=== PATIENT | female | born 1955 | race Caucasian/White ===

== ENCOUNTER → 2016-06-12 | Outpatient (CLI) | payer BC ==
[~2016-06-12] MED LIST: ATV/1 PO; CALC600T68 PO; CHOL100010 PO; CPR500 PO; CYAN500T13 PO; DEXL60CA4 PO; ESTR0.056 PV; GLC/500 PO; METF500T PO; MGNO400 PO; MULT-506 PO; OMEG10007 PO; QSTP PO; ROSU20TA PO; SERT50TA PO; SYN137 PO; [UNRECOGNIZED DRUG - CODE] OPB
--- NOTE | 2016-06-12 12:45 | DIAGNOSTIC IMAGING REPORT ---
KUB CLINICAL HISTORY: Nephrolithiasis. COMPARISON STUDY: CT of the abdomen and pelvis July 11, 2015. FINDINGS: Bowel gas pattern is normal. There are cholecystectomy clips. Pelvic calcifications are unchanged from earlier studies and were shown to represent phleboliths on prior CT. No urinary calculi are identified. IMPRESSION: No urinary calculi identified. Electronically signed by: Keven Bettencourt M.D. 06/12/2016 12:43 PM Dictated Date/Time: 06/12/2016 12:40 PM
== END | disposition home or self-care (01) ==
LOC: C.RAD 12:17
PROVIDERS: ATTEND Urology
DX: N20.0 Calculus of kidney (principal)

== ENCOUNTER → 2016-08-17 | Outpatient (CLI) | payer BC | END | disposition home or self-care (01) | LOC: C.LABSPEC 11:03 | PROVIDERS: ATTEND Obstetrics & Gynecology | DX: N76.2 Acute vulvitis (principal) ==

== ENCOUNTER → 2016-08-24 | Outpatient (CLI) | payer BC ==
--- NOTE | 2016-08-26 08:21 | MAMMOGRAPHY REPORT ---
BILATERAL DIGITAL SCREENING MAMMOGRAM TOMOSYNTHESIS WITH CAD: 08/24/2016 CLINICAL HISTORY: Routine screening. Patient has no complaints. TECHNIQUE: Breast tomosynthesis in addition to standard 2D mammography was performed. Current study was also evaluated with a Computer Aided Detection (CAD) system. COMPARISON: Comparison is made to exams dated: 08/23/2015 mammogram, 07/09/2014 mammogram, 07/06/2013 [facility], 03/09/2012 mammogram, 03/03/2011 mammogram, and 01/01/2010 ammogram - [facility]. BREAST COMPOSITION: There are scattered areas of fibroglandular density in both breasts. FINDINGS: There are benign rim calcifications in the breasts. No suspicious mass, architectural dist ortion or cluster of microcalcifications is seen. IMPRESSION: ACR BI-RADS CATEGORY 1: NEGATIVE There is no mammographic evidence of malignancy. A 1 year screening mammogram is recommended. The pa tient will receive written notification of the results. Approximately 10% of breast cancers are not detected with mammography. A negative mammographic report should not delay biopsy if a clinically suggestive mass is present. Nya Storey M.D. ay/:08/25/2016 17:24:03 Mechanic Insulator: Lyndsay CARRIZALES(Kaleb)(M), [facility] letter sent: Normal 1/2 BI-RADS Code: ACR BI-RADS Category 1: Negative
== END | disposition home or self-care (01) ==
LOC: C.MAMM 11:48
PROVIDERS: ATTEND Obstetrics & Gynecology
DX: Z12.31 Encounter for screening mammogram for malignant neoplasm of breast (principal)

== ENCOUNTER → 2017-03-05 | Outpatient (CLI) | payer BC ==
[~2017-03-05] MED LIST changes: +GADAVIST IV PRN
--- NOTE | 2017-03-05 19:51 | DIAGNOSTIC IMAGING REPORT ---
MRI THE PELVIS WITHOUT A WITH GADOLINIUM CLINICAL HISTORY: Rectal pain and diarrhea. COMPARISON STUDY: CT scan dated 07/11/2015 FINDINGS: Imaging was performed in the sagittal, axial, and coronal planes, before and after the administration of 7 cc of intravenous Gadavist. There are no suspicious areas of marrow replacement. The uterus appears surgically absent. No abnormal adnexal masses are visualized. There is extensive sigmoid diverticulosis. There are no acute peridiverticular inflammatory changes. A pelvic pessary ring is visualized. There are no fluid collections to indicate an abscess. There is no evidence of pathologic adenopathy. There is mild lower rectal wall thickening. Correlation with digital and/or endoscopic examination is recommended IMPRESSION: 1. Mild lower rectal wall thickening. Correlation with digital and/or endoscopic examination is recommended 2. No evidence of abscess 3. Diverticulosis. No evidence of acute diverticulitis 4. No evidence of pathologic adenopathy Electronically signed by: Mikel Huerta M.D. 03/05/2017 7:50 PM Dictated Date/Time: 03/05/2017 7:41 PM
== END | disposition home or self-care (01) ==
LOC: C.MRI 18:00
PROVIDERS: ATTEND Internal Medicine Gastroenterology
DX: K62.89 Other specified diseases of anus and rectum (principal); K57.90 Diverticulosis of intestine, part unspecified, without perforation or abscess without bleeding

== ENCOUNTER → 2017-11-03 | Outpatient (CLI) | payer BC ==
[~2017-11-03] MED LIST changes: -GADAVIST IV PRN
[2017-11-03 12:42] LABS: HEMOGLOBIN A1C 7.2 % (4.5-5.6)
== END | disposition home or self-care (01) ==
LOC: C.LAB1850 10:45
PROVIDERS: ATTEND Internal Medicine Endocrinology, Diabetes & Metabolism
DX: E11.9 Type 2 diabetes mellitus without complications (principal)

== ENCOUNTER 2018-10-16 16:11 | Observation (INO) ==
[2018-10-16] MEDS ORDERED: ACETAMINOPHEN 500 MG TAB PO STA (16:26)
[2018-10-16] MEDS ORDERED: ASPIRIN CHEW 324 MG PO STA (16:26)
[2018-10-16] MEDS ORDERED: NITROGLYCERIN 2% OINTMENT 30GM TUBE EXT STA (16:26)
[2018-10-16] MEDS ORDERED: SODIUM CHLORIDE 0.9% 500 ML IV SCH (16:30)
--- NOTE | 2018-10-16 16:41 | XRay Report ---
XR chest 1V portable HISTORY: Atypical chest 08/22/2012. COMPARISON: None. FINDINGS: The lungs are clear. Cardiac silhouette is normal in size. No pleural effusions. No pneumot horax. IMPRESSION: No acute process. Electronically signed by: Ivan Veronica M.D. 10/16/2018 4:40 PM
[2018-10-16 16:59] LABS: Basophils # (auto) 0.03 K/uL (0-0.2); Basophils % (auto) 0.6 %; Eosinophils # (auto) 0.12 K/uL (0-0.5); Eosinophils % (auto) 2.3 %; Hematocrit (blood only) 29.9 % (37-47); Immature Granulocytes # (auto) 0.01 K/uL (0.00-0.02); Immature Granulocytes % (auto) 0.2 %; Lymphocytes # (auto) 1.79 K/uL (1.2-3.4); Lymphocytes % (auto) 34.2 %; Mean Corpuscular Hgb Conc 33.4 g/dL (32-36); Mean Corpuscular Volume 80.4 fL (80-100); Monocytes # (auto) 0.59 K/uL (0.11-0.59); Monocytes % (auto) 11.3 %; Neutrophils % (auto) 51.4 %; Platelet Count 162 K/uL (130-400); RDW Coefficient of Variation 14.8 % (11.5-14.5); RDW Standard Deviation 43.5 fL (36.4-46.3); Red Blood Count 3.72 M/uL (4.2-5.4); White Blood Count 5.24 K/uL (4.8-10.8)
[2018-10-16 17:10] LABS: INR 1.1 (0.9-1.1); Partial Thromboplastin Ratio 0.9; Partial Thromboplastin Time 25.4 Seconds (21.0-31.0); Prothrombin Time 11.2 Seconds (9.0-12.0)
[2018-10-16] MEDS ORDERED: MAGNESIUM OXIDE 400 MG TAB PO STA (17:17)
[2018-10-16] MEDS ORDERED: MAGNESIUM SULFATE / D5W 1 GM/100 ML BAG IV ONE (17:17)
[2018-10-16 17:20] LABS: Alanine Aminotransferase 58 U/L (12-78); Albumin Level 3.9 gm/dl (3.4-5.0); Aspartate Aminotransferase 70 U/L (15-37); BUN Creatinine Ratio 12.1 (10-20); Blood Urea Nitrogen 15 mg/dl (7-18); Calcium 10.5 mg/dl (8.5-10.1); Carbon Dioxide 25 mmol/L (21-32); Chloride 100 mmol/L (98-107); Est GFR (African American) 51.8; Est GFR (Non-African American) 44.7; Glucose 168 mg/dl (70-99); Potassium 3.2 mmol/L (3.5-5.1); Sodium 136 mmol/L (136-145)
[2018-10-16 17:24] LABS: Albumin Globulin Ratio 1.1 (0.9-2); Alkaline Phosphatase 162 U/L (45-117); Bilirubin,Total 0.6 mg/dl (0.2-1); Globulin 3.7 gm/dl (2.5-4.0); Total Protein 7.6 gm/dl (6.4-8.2); Troponin I < 0.015 ng/ml (0-0.045)
[2018-10-16] MEDS ORDERED: POTASSIUM CHLORIDE 20 MEQ TABCR PO STA (17:48)
--- NOTE | 2018-10-16 17:55 | Emergency Department Note ---
Entered by Enrique Donaldson acting as a scribe for Parveen Jarvis MD History of Present Illness General Chief complaint: Chest Pain Stated complaint: CHEST PAIN,LEFT ARM PAIN,DIZZY Time Seen by Provider: 10/16/18 16:17 Source: patient History of Present Illness Onset (ago): hour(s) 2 Location: chest Radiation: extremity (left arm) Pain Consistency: + other (worsening) Maximum Pain Intensity: 8 Current Pain Intensity: 7 Relieved By: + none Exacerbated By: + movement Associated symptoms: + denies other symptoms (dehydration), + diaphoresis, + shortness of breath and + other (dizziness); no cough and no nausea/vomiting The patient is a 63 year old F who presents to the Emergency Room with complaints of worsening chest pain that started 2 hours ago. She states that she was working out in her garden today. She notes that she then went to the store to buy groceries. She adds that she was loading canned foods into her car when she started to experience chest pain and shortness of breath. She notes that her chest pain radiates to her left arm. She rates her pain as 7 out of 10. She adds that her pain is worsened with exertion. She also states that she is currently experiencing dizziness and sweating. She adds that her dizziness started 1 week ago. She denies currently experiencing nausea and coughing. She notes that she drove home and sat in the air conditioning of her house but adds that her symptoms did not resolve. She states that she has a history of pericarditis, type 2 diabetes, high cholesterol, and HTN. She adds that she has a family history of heart attacks. She notes that she had a stress test performed by her PCP two years ago which was normal. She denies a history of smoking. She notes that she did not take anything for her pain today. She adds that she took her daily aspirin today. Home Medications Home Medications Medication Instructions Recorded Confirmed Type aspirin 81 mg PO QDD 08/03/18 10/16/18 History cholecalciferol (vitamin D3) 2,000 unit PO QAM 08/03/18 10/16/18 History [Vitamin D3] dulaglutide [Trulicity] 1.5 mg SUBCUT WK 08/03/18 10/16/18 History glimepiride 4 mg PO BIDM 08/03/18 10/16/18 History hydrochlorothiazide 25 mg PO QDD 08/03/18 10/16/18 History ketorolac [Acular LS] 1 drp OPB DAILY PRN 08/03/18 10/16/18 History levothyroxine 137 mcg PO QAM 08/03/18 10/16/18 History lisinopril 10 mg PO QAM 08/03/18 10/16/18 History metformin 1,000 mg PO .BID @ 0200 & 1400 08/03/18 10/16/18 History omeprazole 40 mg PO QAM 08/03/18 10/16/18 History paroxetine HCl 20 mg PO QAM 08/03/18 10/16/18 History rosuvastatin 20 mg PO QDD 08/03/18 10/16/18 History mv,Ca,min-folic acid-vit K1 1 tab PO QDD 10/16/18 10/16/18 History [One-A-Day Women's 50 Plus] Allergies Allergy/AdvReac Type Severity Reaction Status Date / Time bee venom protein (honey bee) Allergy Severe Anaphylaxis Verified 10/16/18 16:58 tetracycline Allergy Severe Vomiting Verified 10/16/18 16:58 Flu Virus Vaccine Allergy Severe ANAPHYLAXIS Uncoded 10/16/18 16:58 Past Med/Surg History Medical History Diabetes (Chronic) Moeller's esophagus with esophagitis Chronic anemia Depression Hypothyroidism Diverticulitis Diverticulosis Hyperlipidemia Hypertension Surgical History Hx of cholecystectomy (Acute) History of hysterectomy Family History Brother Coronary heart disease Social History Preferred Language: Austrian Communication Ability: Effective Beliefs That Will Affect Care: None marital status: Current Living Situation: Spouse and Family current occupational status: employed Feels Safe at Home: Yes Smoking Status: Former smoker Hx Alcohol Use: No Hx Substance Use: No Review of Systems See HPI for pertinent positives & negatives. and A total of 10 systems reviewed and were otherwise negative Physical Exam Vital Signs Vital Signs - 24 hr 10/16/18 16:14 10/16/18 17:00 10/16/18 17:01 Temperature 37.6 C H Temperature Source Oral Sepsis Recent Fever Within 48 Hours No Sepsis Action Taken by Nursing No Action Required Pulse Rate 97 H 90 Pulse Rate [Left Finger] Pulse Rate from SpO2 Sensor 89 Respiratory Rate 20 17 Respiratory Effort / Characteristics Non-Labored Respiratory Depth Normal Respiratory Pattern Blood Pressure 136/70 128/65 Blood Pressure [Left Arm] Blood Pressure Mean 92 86 Blood Pressure Mean [Left Arm] Pulse Oximetry 95 95 93 Oxygen Delivery Method Room Air Room Air 10/16/18 17:03 10/16/18 17:07 10/16/18 17:09 Temperature Temperature Source Sepsis Recent Fever Within 48 Hours Sepsis Action Taken by Nursing Pulse Rate 88 88 Pulse Rate [Left Finger] 86 Pulse Rate from SpO2 Sensor 88 89 Respiratory Rate 16 16 15 Respiratory Effort / Characteristics Non-Labored Respiratory Depth Normal Respiratory Pattern Regular Blood Pressure 129/58 L Blood Pressure [Left Arm] 129/58 L Blood Pressure Mean 81 Blood Pressure Mean [Left Arm] 81 Pulse Oximetry 93 95 97 Oxygen Delivery Method Room Air 10/16/18 17:10 10/16/18 17:20 10/16/18 17:30 Temperature Temperature Source Sepsis Recent Fever Within 48 Hours Sepsis Action Taken by Nursing Pulse Rate 87 85 84 Pulse Rate [Left Finger] Pulse Rate from SpO2 Sensor 87 85 84 Respiratory Rate 19 16 15 Respiratory Effort / Characteristics Respiratory Depth Respiratory Pattern Blood Pressure 124/66 120/64 117/62 Blood Pressure [Left Arm] Blood Pressure Mean 85 82 80 Blood Pressure Mean [Left Arm] Pulse Oximetry 93 92 91 Oxygen Delivery Method 10/16/18 17:40 10/16/18 17:50 10/16/18 18:00 Temperature Temperature Source Sepsis Recent Fever Within 48 Hours Sepsis Action Taken by Nursing Pulse Rate 85 83 80 Pulse Rate [Left Finger] Pulse Rate from SpO2 Sensor 85 82 80 Respiratory Rate 18 18 12 Respiratory Effort / Characteristics Respiratory Depth Respiratory Pattern Blood Pressure 123/67 122/56 L 107/62 Blood Pressure [Left Arm] Blood Pressure Mean 85 78 77 Blood Pressure Mean [Left Arm] Pulse Oximetry 91 93 Oxygen Delivery Method GENERAL: Patient is in no acute distress. HEENT: No acute trauma, normocephalic atraumatic, mucous membranes moist, no nasal congestion, no scleral icterus. NECK: No stridor, no adenopathy, no meningismus, trachea is midline. LUNGS: Clear to auscultation bilaterally, no wheeze, no rhonchi, breath sounds equal. HEART: Without murmurs gallops or rubs, regular rate and rhythm. CHEST: non-tender chest wall ABDOMEN: Soft, nontender, bowel sounds positive, no hernias, no peritonitis. EXTREMITIES: No cyanosis or edema, full range of motion of all the joints without pain or difficulty, no signs for acute trauma. NEUROLOGIC: Oriented x 3, no acute motor or sensory deficits, no focal weakness. SKIN: No rash, no jaundice, no diaphoresis. RECTAL: Brown stool, heme negative. Course 1617: The patient was evaluated in room C10. A complete history and physical exam was performed. 174: I re-checked the patient. She states that she is doing better. I performed a rectal exam on the patient. 175: I reviewed the patient's case with Dr. Stuart, [facility] Hospitalist. He will evaluate the patient for further management. Consultations Consultation #1: I reviewed the patient's case with Dr. Stuart, [facility] Hospitalist. He will evaluate the patient for further management. Time: 17:52 Administered Medications Al Hydrox/Mg Hydrox/Simethicone (Maalox) 15 ml PO Q4H PRN PRN Reason: Dyspepsia Stop: 11/15/18 19:02 Last Admin: 10/16/18 19:24 Dose: 15 ml Documented by: [id number] Heparin Sodium (Porcine) (Heparin Sodium (Porcine)) 5,000 units SQ Q12 PRIMITIVO Stop: 11/15/18 20:59 Last Admin: 10/16/18 20:02 Dose: 5,000 units Documented by: [id number] Cosigned by: [id number] Potassium Chloride/Sodium Chloride (Normal Saline W/20 Meq Kcl) 20 meq in 1,000 mls @ 100 mls/hr IV .Q10H PRIMITIVO Stop: 10/17/18 05:29 Last Admin: 10/16/18 19:57 Dose: 100 mls/hr Documented by: [id number] Insulin Aspart (Novolog Flexpen) 0 units SC ACHS PRIMITIVO Stop: 11/15/18 20:59 Last Admin: 10/16/18 19:59 Dose: Not Given Documented by: [id number] Cosigned by: [id number] Discontinued Medications Acetaminophen (Tylenol) 1,000 mg PO NOW STA Stop: 10/16/18 16:27 Last Admin: 10/16/18 17:06 Dose: 1,000 mg Documented by: [id number] Aspirin (Aspirin) 324 mg PO NOW STA Stop: 10/16/18 16:27 Last Admin: 10/16/18 17:06 Dose: 324 mg Documented by: [id number] Sodium Chloride (Nss) 500 mls @ 999 mls/hr IV .Q31M PRIMITIVO Stop: 10/16/18 17:00 Last Infusion: 10/16/18 17:33 Dose: 0 mls/hr Documented by: [id number] Admin: 10/16/18 17:02 Dose: 999 mls/hr Documented by: [id number] Magnesium Sulfate/Dextrose (Magnesium Sulfate / D5w) 1 gm in 100 mls @ 100 mls/hr IV ONE ONE Stop: 10/16/18 18:16 Last Infusion: 10/16/18 18:50 Dose: 0 mls/hr Documented by: [id number] Admin: 10/16/18 17:43 Dose: 100 mls/hr Documented by: [id number] Magnesium Oxide (Mag-Ox) 400 mg PO NOW STA Stop: 10/16/18 17:18 Last Admin: 10/16/18 17:43 Dose: 400 mg Documented by: [id number] Nitroglycerin (Nitro-Bid 2%) 1 inch EXT NOW STA Stop: 10/16/18 16:27 Last Admin: 10/16/18 17:06 Dose: 1 inch Documented by: [id number] Potassium Chloride (Klor-Con M20) 40 meq PO NOW STA Stop: 10/16/18 17:49 Last Admin: 10/16/18 17:50 Dose: 40 meq Documented by: [id number] Medical Decision Making Differential Diagnosis Differential diagnosis includes: musculoskeletal pain, angina, IL, acute coronary syndrome, pneumonia, aortic dissection, PE, pericarditis Medical Records Attestation: I reviewed the patient's medical records. Home Medications Current Medication List: was personally reviewed by me Laboratory Data Attestation: I reviewed the patient's lab results. Result diagrams: 10/16/18 16:45 10/16/18 16:45 Lab Results 10/16/18 10/16/18 10/16/18 Range/Units 16:45 16:45 16:45 WBC 5.24 (4.8-10.8) K/uL RBC 3.72 L (4.2-5.4) M/uL Hgb 10.0 L (12.0-16.0) g/dL Hct 29.9 L (37-47) % MCV 80.4 (80-100) fL MCH 26.9 (25-34) pg MCHC 33.4 (32-36) g/dL RDW Std Deviation 43.5 (36.4-46.3) fL RDW Coeff of Charlee 14.8 H (11.5-14.5) % Plt Count 162 (130-400) K/uL MPV 9.0 (7.4-10.4) fL Immature Gran % (Auto) 0.2 % Neut % (Auto) 51.4 % Lymph % (Auto) 34.2 % Harper % (Auto) 11.3 % Eos % (Auto) 2.3 % Baso % (Auto) 0.6 % Immature Gran # (Auto) 0.01 (0.00-0.02) K/uL Neut # (Auto) 2.70 (1.4-6.5) K/uL Lymph # (Auto) 1.79 (1.2-3.4) K/uL Harper # (Auto) 0.59 (0.11-0.59) K/uL Eos # (Auto) 0.12 (0-0.5) K/uL Baso # (Auto) 0.03 (0-0.2) K/uL PT 11.2 (9.0-12.0) Seconds INR 1.1 (0.9-1.1) APTT 25.4 (21.0-31.0) Seconds PTT Ratio 0.9 Sodium 136 (136-145) mmol/L Potassium 3.2 L (3.5-5.1) mmol/L Chloride 100 (98-107) mmol/L Carbon Dioxide 25 (21-32) mmol/L Anion Gap 12.0 H (3-11) BUN 15 (7-18) mg/dl Creatinine 1.26 H (0.6-1.2) mg/dl Est Cr Clr Drug Dosing Not Reportable Est GFR ( Amer) 51.8 Est GFR (Non-Af Amer) 44.7 BUN/Creatinine Ratio 12.1 (10-20) Glucose 168 H (70-99) mg/dl Calcium 10.5 H (8.5-10.1) mg/dl Magnesium (1.8-2.4) mg/dl Total Bilirubin 0.6 (0.2-1) mg/dl AST 70 H (15-37) U/L ALT 58 (12-78) U/L Alkaline Phosphatase 162 H (45-117) U/L Troponin I < 0.015 (0-0.045) ng/ml Total Protein 7.6 (6.4-8.2) gm/dl Albumin 3.9 (3.4-5.0) gm/dl Globulin 3.7 (2.5-4.0) gm/dl Albumin/Globulin Ratio 1.1 (0.9-2) Lipase 270 (73-393) U/L 10/16/18 Range/Units 16:45 WBC (4.8-10.8) K/uL RBC (4.2-5.4) M/uL Hgb (12.0-16.0) g/dL Hct (37-47) % MCV (80-100) fL MCH (25-34) pg MCHC (32-36) g/dL RDW Std Deviation (36.4-46.3) fL RDW Coeff of Charlee (11.5-14.5) % Plt Count (130-400) K/uL MPV (7.4-10.4) fL Immature Gran % (Auto) % Neut % (Auto) % Lymph % (Auto) % Harper % (Auto) % Eos % (Auto) % Baso % (Auto) % Immature Gran # (Auto) (0.00-0.02) K/uL Neut # (Auto) (1.4-6.5) K/uL Lymph # (Auto) (1.2-3.4) K/uL Harper # (Auto) (0.11-0.59) K/uL Eos # (Auto) (0-0.5) K/uL Baso # (Auto) (0-0.2) K/uL PT (9.0-12.0) Seconds INR (0.9-1.1) APTT (21.0-31.0) Seconds PTT Ratio Sodium (136-145) mmol/L Potassium (3.5-5.1) mmol/L Chloride (98-107) mmol/L Carbon Dioxide (21-32) mmol/L Anion Gap (3-11) BUN (7-18) mg/dl Creatinine (0.6-1.2) mg/dl Est Cr Clr Drug Dosing Est GFR ( Amer) Est GFR (Non-Af Amer) BUN/Creatinine Ratio (10-20) Glucose (70-99) mg/dl Calcium (8.5-10.1) mg/dl Magnesium 1.4 L (1.8-2.4) mg/dl Total Bilirubin (0.2-1) mg/dl AST (15-37) U/L ALT (12-78) U/L Alkaline Phosphatase (45-117) U/L Troponin I (0-0.045) ng/ml Total Protein (6.4-8.2) gm/dl Albumin (3.4-5.0) gm/dl Globulin (2.5-4.0) gm/dl Albumin/Globulin Ratio (0.9-2) Lipase (73-393) U/L Imaging Data Radiologist's Impression: Radiology results as stated below per my review and th e radiologist's interpretation: XR chest 1V portable HISTORY: Atypical chest 08/22/2012. COMPARISON: None. FINDINGS: The lungs are clear. Cardiac silhouette is normal in size. No pleural effusions. No pneumothorax. IMPRESSION: No acute process. Electronically signed by: Ivan Veronica M.D. 10/16/2018 4:40 PM ECG Data Attestation: I personally reviewed and interpreted this ECG as follows: Indication: chest pain Rate (beats per minute): 90 Rhythm: normal sinus Findings: + other (potential old inferior infarct) and + nonspecific-ST abn; no PVC Blood Pressure Blood Pressure Findings: Low blood pressure Blood Pressure Disposition: further management by hospitalist [facility] Narrative There is no leukocytosis. The patient is anemic, she has a history of the same. Rectal exam was done, the stool was brown and heme-negative. No coagulopathy. Potassium slightly low at 3.2. Magnesium low at 1.4. There were some very subtle liver enzyme elevations. There was no evidence for pancreatitis. EKG shows a sinus rhythm, no acute ischemia. Cardiac enzyme testing x1 is not consistent with acute cardiac injury. Chest film does not show mediastinal widening, there is no pneumonia or pneumothorax. The patient presents with chest pain which sounds potentially cardiac in nature. She does have multiple cardiac risk factors. The patient was given Nitropaste, oral aspirin, oral Tylenol. She received oral and IV magnesium, she was given oral potassium. Patient is feeling improved. I do think further cardiac work-up here in the hospital is warranted. I spoke to the patient and case management. The on-call hospitalist was consulted. Impression & Plan Chest pain, precordial, SOB (shortness of breath), Hypomagnesemia, Hypokalemia Discharge Plan Visit Data *Final* Discharge Date/Time: 10/16/18 18:42 Chief Complaint: Chest Pain Stated Complaint: CHEST PAIN,LEFT ARM PAIN,DIZZY ED Provider: Parveen Jarvis Discharge Problem: Chest pain, precordial, SOB (shortness of breath), Hypomagnesemia, Hypokalemia Patient Disposition: Admitted As Inpatient Discharge Instructions Interventions: ED Discharge Assessment Last Done: 10/16/18 18:42 The benjamin's documentation has been prepared under my direction and personally reviewed by me in its entirety. I confirm that the note above accurately reflects all work, treatment, procedures, and medical decision making performed by me.
--- NOTE | 2018-10-16 18:40 | History & Physical Report ---
Date of Service October 16, 2018 Assessment & Plan (1) Chest pain, precordial: Patient has a good history for chest pain including some perhaps left arm symptoms intermittently for the past few days but definitely exertional related symptoms with associated symptoms today, tobacco history strong family history history of poorly controlled dyslipidemia and diabetes. Patient will be brought in and had serial troponins depending on how her night goes may consider pursuing stress echocardiogram versus discussion of pursuing straight catheterization. Patient had nitroglycerin paste applied by the ER this will be stopped around midnight to see how her symptoms are off of it and also repair for a stress test without nitroglycerin on board. She will continue baby aspirin at this time (2) Hypertension: Patient takes lisinopril for hypertension and also renal protective effects for her diabetes this will be maintained (3) Hyperlipidemia: Patient is on Crestor for dyslipidemia she says her numbers are quite with a should be we will recheck a fasting lipid in the morning (4) Diabetes: Patient typically takes Trulicity which she took her dose on 10/15 glimepi ride and metformin and glimepiride and metformin will be held in lieu of a sliding scale without carb ratio as the patient will be n.p.o. 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 She states that her colonoscopies are currently up-to-date (6) Chronic anemia: Chronic anemia weight loss patient will have iron panel checked in the morning if they are low we will augment her iron but have her facilitate her follow-up with the GI medicine, initially heme testing of her stool in the ER was negative according to ER physician (7) Hypothyroidism: Maintain the Synthroid 137 clinically euthyroid TSH is pending in the morning (8) Depression: Packs will be continued for depression (9) DVT prophylaxis: Heparin will be used for DVT prevention History of Present Illness Primary Care Provider: Reza Cid MD [facility] [place] [place] [address] Emergency Department Note Draft Patient: SHOLA WYNN LDate of Service: 10/16/18 MR#: [id number] Phy: Acct ID:[id number] Phy: Reza Cid MD Date: 1955Fam Phy: Age: 63Location: ED Sex: F cc: ~ *NOTICE TO RECEIVING CONSTITUTION PARTY/AGENCY This information is strictly Confidential and protected under [place] law. [place] law prohibits you from making any further disclosure of this information unless further disclosure is expressly permitted by the written consent of the person to whom it pertains or is authorized by law. A general authorization for the release of medical or other information is not sufficient for this purpose. Hospital accepts no responsibility if the information is made available to any other person, INCLU DING THE PATIENT. The patient is a 63 year old F who presents to the Emergency Room with complaints of worsening chest pressure that started at 2 pm the day of admission. She states that she then went to the store to buy groceries and she was loading canned foods into her car when she started to experience chest pain and shortness of breath. She notes that her chest pain radiates to her left arm. She rates her pain as 7 out of 10, it was also associated with dizziness and sweating. The symptoms lessened with rest in her car but did not resolve. Her symptoms presisted and she presented to the ER for evaluation. She states that she has a history of pericarditis, type 2 diabetes, HLD, and HTN. She adds that she has a family history of heart disease in people youner than herself. She notes that she had a stress test performed by her PCP two years ago which was normal. She has a 20 pk/yr history of smoking but quit 20 years ago. She adds that she took her daily aspirin today. Initial ECG had low voltage, new lead III Q wave but no current of injury and troponin was negative Allergies Allergy/AdvReac Type Severity Reaction Status Date / Time bee venom protein (honey bee) Allergy Severe Anaphylaxis Verified 10/16/18 16:58 tetracycline Allergy Severe Vomiting Verified 10/16/18 16:58 Flu Virus Vaccine Allergy Severe ANAPHYLAXIS Uncoded 10/16/18 16:58 Home Medications Home Medications Medication Instructions Recorded Confirmed Type aspirin 81 mg PO QDD 08/03/18 10/16/18 History cholecalciferol (vitamin D3) 2,000 unit PO QAM 08/03/18 10/16/18 History [Vitamin D3] dulaglutide [Trulicity] 1.5 mg SUBCUT WK 08/03/18 10/16/18 History glimepiride 4 mg PO BIDM 08/03/18 10/16/18 History hydrochlorothiazide 25 mg PO QDD 08/03/18 10/16/18 History ketorolac [Acular LS] 1 drp OPB DAILY PRN 08/03/18 10/16/18 History levothyroxine 137 mcg PO QAM 08/03/18 10/16/18 History lisinopril 10 mg PO QAM 08/03/18 10/16/18 History metformin 1,000 mg PO .BID @ 0200 & 1400 08/03/18 10/16/18 History omeprazole 40 mg PO QAM 08/03/18 10/16/18 History paroxetine HCl 20 mg PO QAM 08/03/18 10/16/18 History rosuvastatin 20 mg PO QDD 08/03/18 10/16/18 History mv,Ca,min-folic acid-vit K1 1 tab PO QDD 10/16/18 10/16/18 History [One-A-Day Women's 50 Plus] Past Med/Surg History Medical History Diabetes (Chronic) Moeller's esophagus with esophagitis Chronic anemia Depression Hypothyroidism Diverticulitis Diverticulosis Hyperlipidemia Hypertension Surgical History Hx of cholecystectomy (Acute) History of hysterectomy Family History Brother Coronary heart disease Social History marital status: Current Living Situation: Spouse current occupational status: employed Feels Safe at Home: Yes Smoking Status: Never smoker Hx Alcohol Use: No Review of Systems Review of Systems: ROS: well nourished well developed. No double vision blurry vision No problems with speech or swallowing Chest pain rated 7 out of 10 sharp with a pressure sensation across her chest from left to right No Wheezing did have shortness of breath associate with chest pain No abdominal pain but did have nausea associated with her chest pain, additio brian decreased appetite and unintentional 10 pound weight loss over the last month or so No burning urine urine frequency or changes in color No focal joint pain or muscle pain No skin rashes or oral lesions No unusual bruising or bleeding No focused back pain or numbness or loss of strength No changes in memory or confusion Physical Exam Physical Exam: The patient appeared well nourished and normally developed. Vital signs as documented. Head exam is unremarkable. normocephalic, atraumatic Neck is without jugular venous distension, thyromegaly, or lymphademopathy Lungs are clear to auscultation and percussion. Cardiac exam reveals Rhythm is regular. First and second heart sounds normal. Does not appeared muffled or distant Abdominal exam reveals normal bowel sounds, no masses, no organomegaly Extremities are nonedematous and both pedal pulses are present Neurologic exam is A&Ox3, no focal deficits, strength is equal bilateral Psychologically seems neither anxious or depressed Skin is warm Dry without bruises or lesions Results & Data Vital Signs (Past 12 Hours) Vital Signs Temp Pulse Pulse Resp BP BP Pulse Ox 10/16/18 17:09 86 15 129/58 L 97 10/16/18 17:00 95 10/16/18 16:14 37.6 C H 97 H 20 136/70 95 Chest x-rays without active disease EKG shows sinus rhythm low voltage Q waves in lead III no acute current of injury PG Care Time/CCT Total # of Minutes Spent Total Time Spent with Patient: Total time spent is greater than 50% in coordination of care (as documented) at patient's floor/unit and/or counseling patient:
[2018-10-16] MEDS ORDERED: ALUMINUM/MAGNESIUM SUSP 30 ML UDC PO PRN (19:03)
[2018-10-16] MEDS ORDERED: ACETAMINOPHEN 325 MG TAB PO PRN (19:03)
[2018-10-16] MEDS ORDERED: GLUCOSE 40% GEL 15 GM TUBE PO PRN (19:03)
[2018-10-16] MEDS ORDERED: GLUCOSE 10 TABS/TUBE PO PRN (19:03)
[2018-10-16] MEDS ORDERED: DEXTROSE 50% 50 ML SYRINGE IV PRN (19:03)
[2018-10-16] MEDS ORDERED: CARBOHYDRATES FOR HYPOGLYCEMIA PO PRN (19:03)
[2018-10-16] MEDS ORDERED: NITROGLYCERIN SL 0.4 MG/TAB TAB SL PRN (19:03)
[2018-10-16] MEDS ORDERED: GLUCAGON FOR INJ 1 MG VIAL SQ PRN (19:03)
[2018-10-16] MEDS ORDERED: ONDANSETRON INJ 2 MG/ML 2 ML VIAL IV PRN (19:03)
[2018-10-16] MEDS ORDERED: NSS + 20MEQ KCL 20 MEQ/1,000 ML BAG IV SCH (19:30)
[2018-10-16] MEDS: INSULIN ASPART 100 UNITS/ML 3 ML PEN SC SCH (19:59)
[2018-10-16] MEDS: HEPARIN SOD 5,000 UNIT/0.5 ML VIAL SQ SCH (20:02)
[2018-10-17] MEDS ORDERED: LEVOTHYROXINE SODIUM 137 MCG TABLET PO SCH (06:30)
[2018-10-17 06:54] LABS: Blood Urea Nitrogen 15 mg/dl (7-18); Calcium 9.8 mg/dl (8.5-10.1); Carbon Dioxide 27 mmol/L (21-32); Chloride 107 mmol/L (98-107); Creatinine Clr Calc Pharmacy 46.2 ml/min; Est GFR (African American) 57.8; Est GFR (Non-African American) 49.9; Glucose 112 mg/dl (70-99); Magnesium 1.9 mg/dl (1.8-2.4); Potassium 4.1 mmol/L (3.5-5.1); Sodium 140 mmol/L (136-145)
[2018-10-17 07:05] LABS: Aspartate Aminotransferase 65 U/L (15-37); Chol HDL Ratio 4; Cholesterol 121 mg/dl (0-200); HDL Cholesterol 29 mg/dl; Iron 42 mcg/dl (35-150); LDL Cholesterol Calculated 37 mg/dl; Triglycerides 274 mg/dl (0-150); Troponin I < 0.015 ng/ml (0-0.045); VLDL Cholesterol 55 mg/dl
[2018-10-17] MEDS: HEPARIN SOD 5,000 UNIT/0.5 ML VIAL SQ SCH (08:20)
[2018-10-17] MEDS: INSULIN ASPART 100 UNITS/ML 3 ML PEN SC SCH ×2 (08:20→11:48)
[2018-10-17 08:40] LABS: Estimated Average Glucose 163 mg/dl; Hemoglobin A1C 7.3 % (4.5-5.6)
[2018-10-17] MEDS ORDERED: LISINOPRIL 10 MG TAB PO SCH (09:00)
[2018-10-17] MEDS ORDERED: PARoxetine HCl 10 MG TAB PO SCH (09:00)
[2018-10-17] MEDS ORDERED: PANTOprazole 40 MG TAB PO SCH (09:00)
--- NOTE | 2018-10-17 16:21 | Discharge Summary ---
Date of Service October 17, 2018 Admission HPI Per Admitting Provider [facility] [place] [address] Emergency Department Note Draft Patient: SHOLA WYNN LDate of Service: 10/16/18 MR#: [id number] Phy: Acct ID:[id number] Phy: Reza Cid MD Date: 1955Fam Phy: Age: 63Location: ED Sex: F cc: ~ *NOTICE TO RECEIVING GREEN PARTY/AGENCY This information is strictly Confidential and protected under [place] law. [place] law prohibits you from making any further disclosure of this information unless further disclosure is expressly permitted by the written consent of the person to whom it pertains or is authorized by law. A general authorization for the release of medical or other information is not sufficient for this purpose. Hospital accepts no responsibility if the information is made available to any other person, INCLUDING THE PATIENT. The patient is a 63 year old F who presents to the Emergency Room with complaints of worsening chest pressure that started at 2 pm the day of admission. She states that she then went to the store to buy groceries and she was loading canned foods into her car when she started to experience chest pain and shortness of breath. She notes that her chest pain radiates to her left arm. She rates her pain as 7 out of 10, it was also associated with dizziness and sweating. The symptoms lessened with rest in her car but did not resolve. Her symptoms presisted and she presented to the ER for evaluation. She states that she has a history of pericarditis, type 2 diabetes, HLD, and HTN. She adds that she has a family history of heart disease in people younger than herself. She notes that she had a stress test performed by her PCP two years ago which was normal. She has a 20 pk/yr history of smoking but quit 20 years ago. She adds that she took her daily aspirin today. Initial ECG had low voltage, new lead III Q wave but no current of injury and troponin was negative Principal Diagnosis Chest pain Discharge Exam Constitutional WD/WN, vitals as above Respiratory normal respiratory effort, lungs clear to auscultation Cardiovascular RRR, no murmur, no edema Gastrointestinal (Abdomen) Inspection/Auscultation: abdomen normal to inspection and normal bowel sounds; abdomen not distended Musculoskeletal no cyanosis or clubbing, extremities motor strength 5/5 Skin no rashes, warm and dry Neurologic moves all extremities and awake Psychiatric A+Ox3, euthymic affect Discharge Data Allergies Allergy/AdvReac Type Severity Reaction Status Date / Time bee venom protein (honey bee) Allergy Severe Anaphylaxis Verified 10/16/18 16:58 tetracycline Allergy Severe Vomiting Verified 10/16/18 16:58 Flu Virus Vaccine Allergy Severe ANAPHYLAXIS Uncoded 10/16/18 16:58 Consultations 10/16/18 17:50 ED Decision to Admit Stat Hospital Course (1) Chest pain, precordial: Patient with multiple risk factors complaining of chest pain including some perhaps left arm symptoms intermittently for the past few days but definitely exertional related symptoms with associated symptoms today. She has a history of tobacco use, strong family history, and history of poorly controlled dyslipidemia and diabetes. Serial troponins normal x 3 Stress echo without inducible ischemia on exertion, no wall motion abnormalities, EF 60 -65% Given nitro paste, will continue baby ASA No chest pain or pressure since evening of admission. No positional discomfort in her chest. (2) Hypertension: Patient takes lisinopril for hypertension and also renal protective effects for her diabetes this will be maintained (3) Hyperlipidemia: Patient is on Crestor for dyslipidemia - triglycerides were 274, LDL 37, HDL 29 (4) Diabetes: SS inpatient Continue Trulicity glimepiride and metformin on discharge A1c 7.3 (5) Moeller's esophagus with esophagitis: Patient suffers from Moeller's esophagitis we continued on a proton pump inhibitor She is anemic with hgb 11.8 on admission and 10 today, and has had unintentional 10 pound weight loss - will need follow-up with outpatient [facility] gastroenterology. She states that her colonoscopies are currently up-to-date (6) Chronic anemia: Chronic anemia and weight loss - iron panel showed iron of 42 and high TIBC c - heme testing of her stool in the ER was negative according to ER physician (7) Hypothyroidism: Maintain the Synthroid 137 clinically euthyroid TSH low 0.096 - will need to be rechecked in a few weeks, dosing of Synthroid may need to be adjusted (8) Depression: Paxil to be continued for depression (9) DVT prophylaxis: Heparin for dvt proph while inpatient (10) Dizziness: intermittent dizziness with positional changes that resolves after she is still again, most likely BPPV. Denies any difficulty with gait or balance. No focal deficits or drift. Could consider PT outpatient if persistent. Total Time Total Time Spent Total Time Spent (In Minutes): greater than 30 minutes Discharge Plan Discharge Items Patient Disposition: Home - Self-Care Reason For Visit: CHEST PAIN Discharge Diagnosis: Chest pain Discharge Goals: Decrease discomfort and Diagnostic testing Activity: Resume your previous activity Activity Comment: gradually as tolerated Non-emergency contact: Primary Care Provider Call non-emergency contact if: you have any medication questions Follow-up/Referrals: Reza Cid MD [Primary Care Provider] - 10/24/18 10:50 am (Please, follow up with Dr. Isiah Cid on WednesdayOctober 24 at 10:50 am. *If you need to change this appointment, call the office at [phone].) Diet: Carb Consistent or DM2 Addtl Provider Instructions: Please see Dr. Cid for follow up as above. You had a stress echocardiogram performed which did not show any abnormalities that would indicate that your heart was not receiving enough oxygen during exertion. Additionally, your blood work did not indicate that there was injury to your heart. As we discussed, your blood count was slightly low indicating that you are anemic. You should follow up with this and your unintentional weight loss with your doctor. A check for blood in your stool when you were in the Emergency Department did not find any blood. You will need to have your TSH rechecked in a few weeks as it was low which may indicate you will need to adjust the dosing of your Synthroid with your provider. Prescriptions: Continued metformin 500 mg tablet 1,000 mg PO .BID @ 0200 & 1400 RF: 0 levothyroxine 137 mcg tablet 137 mcg PO QAM RF: 0 paroxetine HCl 10 mg tablet 20 mg PO QAM RF: 0 omeprazole 40 mg capsule,delayed release(DR/EC) 40 mg PO QAM RF: 0 aspirin 81 mg Tablet,Delayed Release (Dr/Ec) 81 mg PO QDD RF: 0 lisinopril 10 mg tablet 10 mg PO QAM RF: 0 glimepiride 4 mg tablet 4 mg PO BIDM RF: 0 hydrochlorothiazide 25 mg tablet 25 mg PO QDD RF: 0 rosuvastatin 20 mg tablet 20 mg PO QDD RF: 0 ketorolac [Acular LS] 0.4 % Drops 1 drp OPB DAILY PRN (Reason: NEEDED) RF: 0 cholecalciferol (vitamin D3) [Vitamin D3] 2,000 unit Capsule 2,000 unit PO QAM RF: 0 Trulicity 1.5 mg/0.5 mL pen injector 1.5 mg subcut WK RF: 0 One-A-Day Women's 50 Plus 400-20 mcg Tablet 1 tab PO QDD RF: 0 Stand-Alone Forms: Call Back Authorization, [facility] Discharge Orders: Discharge Order (Routine); Ordered 10/17/18 Ordered By: Yajaira Powers Admission Data Admit Date/Time: 10/16/18 18:04 Attending Provider: Hoang Wynn Admit Provider: Terrance Stuart Primary Care Provider: Reza Cid Other Providers: Hoang Wynn Service: Telemetry Other Interventions: Discharge Summary Assessment (RN) Last Done: 10/17/18 16:13 DC Date/Time DO NOT enter until pt leaves facility: 10/17/18 17:21 Supervising Physician Co-Signing Physician Notes I supervised Yajaira Powers NP on this patient's care. I discussed the plan of care with her with the plan being as written in her note except for any follo wing changes/exceptions: None.
[2018-10-17] MEDS ORDERED: ROSUVASTATIN CALCIUM 20 MG TAB PO SCH (16:30)
[2018-10-17] MEDS ORDERED: hydroCHLOROthiazide 25 MG TAB PO SCH (16:30)
[2018-10-17] MEDS ORDERED: ASPIRIN 81 MG ECTAB PO SCH (16:30)
== END 2018-10-17 17:21 | disposition home or self-care (01) ==
LOC: ED 16:11 → 2S 16:11 → SUATTDRO 18:04 → 2S 18:42

== ENCOUNTER 2020-09-21 17:57 | Observation (INO) ==
--- NOTE | 2020-09-21 18:21 | Emergency Department Note ---
History of Present Illness General Chief complaint: Syncope Stated complaint: NOSE BLEED, SYNCOPE Time Seen by Provider: 09/21/20 18:16 Source: patient and EMS Mode of arrival: EMS Limitations: no limitations History of Present Illness This patient comes in after suffering intermittent nosebleeding and a syncopal episode. She says her nose has been bleeding for several weeks mostly from the left today it was a lot heavier was from both and it was also going down her the back of her throat she is also been losing balance recently she saw Dr. Cid couple weeks ago got a CAT scan of her head and he scheduled her to have an MRA. She has not had Covid or the Covid vaccine. She tells me she had anaphylaxis to influenza vaccine and also to hepatitis B vaccine. She suffered a bad fall in May but has not fallen since then. She said today she was bending over with her nosebleeding she is spitting up blood she got shaky and passed out the paramedics caught her so there is no injury. She has had no recent blood or melena stool no chest pain or shortness of breath. She has occasional abdominal pain which she relates to her liver but is unchanged. No lightheadedness at present minimal headache. No focal numbness weakness no difficulty speaking or swallowing. She is not on any blood thinners. Home Medications Medication Instructions Recorded Confirmed Type omeprazole 40 mg PO QDL 08/03/18 09/21/20 History paroxetine HCl 20 mg PO QAM 04/17/19 09/21/20 History cyanocobalamin (vitamin B-12) 5,000 mcg PO DAILY 11/30/19 09/21/20 History 5,000 mcg capsule multivit,Ca,air-fkni-FP-guarana-caff 1 tab PO QAM 11/30/19 09/21/20 History 18 mg iron-400 mcg-180 mg tablet cholecalciferol (vitamin D3) 25 1,000 unit PO DAILY #30 cap 12/28/19 09/21/20 Rx mcg (1,000 unit) capsule ferrous sulfate 325 mg (65 mg 325 mg PO BID tab 12/28/19 09/21/20 History iron) tablet rosuvastatin 20 mg tablet 20 mg PO HS tab 12/28/19 09/21/20 History potassium chloride 20 mEq 20 meq PO QAM 04/03/20 09/21/20 History tablet,extended release ascorbic acid (vitamin C) [Vitamin 500 mg PO DAILY 07/19/20 09/21/20 History C] dicyclomine 20 mg tablet 20 mg PO QID PRN tab 07/23/20 09/21/20 History dulaglutide 1.5 mg/0.5 mL 1.5 mg SUBCUT ONCE 90 Days #45 ml 07/23/20 09/21/20 Rx subcutaneous pen injector levothyroxine 112 mcg tablet 112 mcg PO DAILY #30 tab 07/23/20 09/21/20 Rx cinacalcet 30 mg tablet 30 mg PO DAILY #90 tab 08/19/20 09/21/20 Rx lorazepam 1 mg PO TID PRN 09/21/20 09/21/20 History Allergies Allergy/AdvReac Type Severity Reaction Status Date / Time bee venom protein (honey bee) Allergy Severe Anaphylaxis Verified 07/24/20 12:10 Influenza Virus Vaccines Allergy Severe Anaphylaxis Verified 07/24/20 12:10 tetracycline AdvReac Severe Severe Verified 07/24/20 12:10 stomach pains Past Med/Surg History Medical History (Updated 09/22/20 @ 01:00 by Noe Kc MD) Anemia Anxiety and depression Arthritis Moeller's esophagus with esophagitis Colitis Diabetes mellitus, type 2 Diverticulosis GERD (gastroesophageal reflux disease) GI bleed RECENT HOSPITALIZED Heel spur B/L feet Hiatal hernia History of kidney stones Hyperlipidemia Hypertension NO CURRENT MEDS Hypothyroidism 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 Nephrolithiasis RESOLVED Spleen enlarged Stucco keratoses Temporomandibular joint disorder NO 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 Surgical History H/O thumb surgery RT/LEFT JOINT REPAIR H/O total hysterectomy History of appendectomy History of arthroscopy of knee Left Knee - meniscus/cartilage History of colonoscopy History of cystoscopy History of esophagogastroduodenoscopy (EGD) History of tonsillectomy and adenoidectomy History of tooth extraction Hx of cholecystectomy Family History Brother Coronary heart disease Mother Family history of diabetes mellitus Sister Family history of diabetes mellitus Son Family history of diabetes mellitus Father Family hx of colon cancer Grandfather (Maternal) Family hx of colon cancer Other No family history of adverse response to anesthesia Social History Smoking Status: Never smoker Second Hand Exposure: No; Do You Dip or Chew Tobacco: No; Tobacco Cessation Education Requested by Patient: No Hx Alcohol Use: No Hx Substance Use: No Preferred Language: Kazakh Communication Ability: Effective Rake Operator Required: No Beliefs That Will Affect Care: None marital status: Current Living Situation: Spouse and Family Current Living Situation Comment: and sister current occupational status: employed Other Information That Helps Us Care for You: No Feels Safe at Home: Yes Safety Concerns: Feels Safe At This Time Assistive Devices: None Review of Systems A total of 10 systems reviewed and were otherwise negative Physical Exam Vital Signs Vital Signs - 24 hr 09/21/20 18:12 09/21/20 18:17 09/21/20 18:24 Temperature 37.0 C Temperature Source Oral Pulse Rate 80 81 81 Pulse Rate [Apical] 81 Pulse Rate from SpO2 Sensor 80 Respiratory Rate 13 17 Blood Pressure 163/81 H 163/81 H Blood Pressure [Right Arm] 163/81 H Blood Pressure Mean 108 108 Blood Pressure Mean [Right Arm] 108 Pulse Oximetry 96 97 96 Oxygen Delivery Method Room Air Room Air Sepsis Recent Fever Within 48 Hours No Sepsis New/Unexplained Change in Mental Status No Sepsis Action Taken by Nursing No Action Required 09/21/20 20:34 Temperature Temperature Source Pulse Rate Pulse Rate [Apical] 89 Pulse Rate from SpO2 Sensor Respiratory Rate 20 Blood Pressure Blood Pressure [Right Arm] 154/66 H Blood Pressure Mean Blood Pressure Mean [Right Arm] 95 Pulse Oximetry 94 Oxygen Delivery Method Sepsis Recent Fever Within 48 Hours Sepsis New/Unexplained Change in Mental Status Sepsis Action Taken by Nursing General: Well developed well nourished middle-aged female who is alert on x3 and talkative. She is wearing a mask and has no active nose bleeding in no acute distress, breathing comfortably on room air. Normal speech HEENT: Normal cephalic atraumatic. Pupils are equal round and reactive to light. Extraocular movements are intact. Oropharynx is pink with moist mucous membranes. No swelling of the mouth lips or tongue. Neck: Supple with a midline trachea. No meningeal signs or stiffness, no JVD or bruits. No Stridor. Nares are clear without blood clots or bleeding. The posterior oropharynx is clear without dried blood or active bleeding Chest: Clear to auscultation bilaterally. No wheezes or rhonchi. No increased work of breathing. Heart: Regular rate and rhythm without murmurs or gallops. Abdomen: Soft nontender, nondistended without rebound guarding or rigidity. Scar in right abdomen from previous cholecystectomy Extremities: No cyanosis clubbing or edema. No calf tenderness or assymetry Spine/Back. Non tender to palpation. No CVA tenderness Skin: Good turgor without rashes. Neurologic exam: Cranial nerves two through 12 are intact. Motor and sensation are intact and symmetrical throughout. Course Administered Medications Insulin Aspart (Insulin Aspart 100 Units/Ml 3 Ml Pen) 0 units SC ACHS PRIMITIVO Stop: 10/21/20 22:59 Last Admin: 09/21/20 23:27 Dose: Not Given Documented by: [id number] Propranolol HCl (Propranolol Hcl 10 Mg Tab) 10 mg PO BID PRIMITIVO Stop: 10/21/20 22:32 Last Admin: 09/21/20 23:30 Dose: 10 mg Documented by: [id number] Rosuvastatin Calcium (Rosuvastatin Calcium 20 Mg Tab) 20 mg PO HS PRIMITIVO Stop: 10/21/20 22:32 Last Admin: 09/21/20 23:30 Dose: 20 mg Documented by: [id number] Discontinued Medications Sodium Chloride (Nss) 500 mls @ 999 mls/hr IV .Q31M PRIMITIVO Stop: 09/21/20 19:00 Last Infusion: 09/21/20 19:25 Dose: 0 mls/hr Documented by: [id number] Admin: 09/21/20 18:35 Dose: 999 mls/hr Documented by: [id number] Lorazepam (Lorazepam 1 Mg Tab) Confirm Administered Dose 1 mg .ROUTE .STK-MED ONE Stop: 09/21/20 21:24 Last Admin: 09/21/20 21:24 Dose: 1 mg Documented by: [id number] Lorazepam (Lorazepam 1 Mg Tab) 1 mg PO NOW STA Stop: 09/21/20 23:10 Last Admin: 09/21/20 23:28 Dose: 1 mg Documented by: [id number] Oxymetazoline HCl (Oxymetazoline 0.05% 30 Ml Btl) 1 sprays NA NOW ONE Stop: 09/21/20 23:01 Last Admin: 09/21/20 23:28 Dose: 1 sprays Documented by: [id number] Medical Decision Making Differential Diagnosis Nosebleed, thrombocytopenia, liver disease, anemia, infection, electrolyte or metabolic abnormality, syncope, arrhythmia Medical Records Attestation: I reviewed the patient's medical records. Home Medications Current Medication List: was personally reviewed by me Laboratory Data Attestation: I reviewed the patient's lab results. Result diagrams: 09/21/20 18:29 09/21/20 18:29 Lab Results 09/21/20 09/21/20 09/21/20 Range/Units 18:29 18:29 18:29 WBC 4.32 L (4.8-10.8) K/uL RBC 4.23 (4.2-5.4) M/uL Hgb 13.3 (12.0-16.0) g/dL Hct 38.0 (37-47) % MCV 89.8 (80-100) fL MCH 31.4 (25-34) pg MCHC 35.0 (32-36) g/dL RDW Std Deviation 51.5 H (36.4-46.3) fL RDW Coeff of Charlee 15.8 H (11.5-14.5) % Plt Count 101 L (130-400) K/uL MPV 9.4 (7.4-10.4) fL Immature Gran % (Auto) 0.2 % Neut % (Auto) 49.8 % Lymph % (Auto) 30.8 % Pierce % (Auto) 15.3 % Eos % (Auto) 3.7 % Baso % (Auto) 0.2 % Neut # (Auto) 2.15 (1.4-6.5) K/uL Lymph # (Auto) 1.33 (1.2-3.4) K/uL Pierce # (Auto) 0.66 H (0.11-0.59) K/uL Eos # (Auto) 0.16 (0-0.5) K/uL Baso # (Auto) 0.01 (0-0.2) K/uL Immature Gran # (Auto) 0.01 (0.00-0.02) K/uL PT 12.2 H (9.0-12.0) Seconds INR 1.2 H (0.9-1.1) APTT 27.9 (21.0-31.0) Seconds PTT Ratio 1.1 Sodium 142 (136-145) mmol/L Potassium 3.6 (3.5-5.1) mmol/L Chloride 109 H (98-107) mmol/L Carbon Dioxide 30 (21-32) mmol/L Anion Gap 3.0 (3-11) BUN 10 (7-18) mg/dl Creatinine 1.23 H (0.6-1.2) mg/dl Est Cr Clr Drug Dosing 41.1 ml/min Est GFR ( Amer) 52.6 ml/min Est GFR (Non-Af Amer) 45.4 ml/min BUN/Creatinine Ratio 8.5 L (10-20) Glucose 108 H (70-99) mg/dl Calcium 10.8 H (8.5-10.1) mg/dl Magnesium 2.4 (1.8-2.4) mg/dl Total Bilirubin 4.1 H (0.2-1) mg/dl AST 71 H (15-37) U/L ALT 48 (12-78) U/L Alkaline Phosphatase 217 H (45-117) U/L Troponin I 0.022 (0-0.045) ng/ml Total Protein 6.8 (6.4-8.2) gm/dl Albumin 3.5 (3.4-5.0) gm/dl Globulin 3.3 (2.5-4.0) gm/dl Albumin/Globulin Ratio 1.1 (0.9-2) COVID-19 Eval Order SARS-CoV-2, RNA, NAAT (NEGATIVE) Blood Type Antibody Screen 09/21/20 09/21/20 09/21/20 Range/Units 18:29 20:29 20:29 WBC (4.8-10.8) K/uL RBC (4.2-5.4) M/uL Hgb (12.0-16.0) g/dL Hct (37-47) % MCV (80-100) fL MCH (25-34) pg MCHC (32-36) g/dL RDW Std Deviation (36.4-46.3) fL RDW Coeff of Charlee (11.5-14.5) % Plt Count (130-400) K/uL MPV (7.4-10.4) fL Immature Gran % (Auto) % Neut % (Auto) % Lymph % (Auto) % Pierce % (Auto) % Eos % (Auto) % Baso % (Auto) % Neut # (Auto) (1.4-6.5) K/uL Lymph # (Auto) (1.2-3.4) K/uL Pierce # (Auto) (0.11-0.59) K/uL Eos # (Auto) (0-0.5) K/uL Baso # (Auto) (0-0.2) K/uL Immature Gran # (Auto) (0.00-0.02) K/uL PT (9.0-12.0) Seconds INR (0.9-1.1) APTT (21.0-31.0) Seconds PTT Ratio Sodium (136-145) mmol/L Potassium (3.5-5.1) mmol/L Chloride (98-107) mmol/L Carbon Dioxide (21-32) mmol/L Anion Gap (3-11) BUN (7-18) mg/dl Creatinine (0.6-1.2) mg/dl Est Cr Clr Drug Dosing ml/min Est GFR ( Amer) ml/min Est GFR (Non-Af Amer) ml/min BUN/Creatinine Ratio (10-20) Glucose (70-99) mg/dl Calcium (8.5-10.1) mg/dl Magnesium (1.8-2.4) mg/dl Total Bilirubin (0.2-1) mg/dl AST (15-37) U/L ALT (12-78) U/L Alkaline Phosphatase (45-117) U/L Troponin I (0-0.045) ng/ml Total Protein (6.4-8.2) gm/dl Albumin (3.4-5.0) gm/dl Globulin (2.5-4.0) gm/dl Albumin/Globulin Ratio (0.9-2) COVID-19 Eval Order Covid19 [facility] SARS-CoV-2, RNA, NAAT NEGATIVE (NEGATIVE) Blood Type A Positive Antibody Screen NEGATIVE Imaging Data Attestation: I personally reviewed and interpreted this imaging study as follows: My Impression: Chest x-rayno acute infiltrate, failure, pneumothorax seen upon my interpretation Radiologist's Impression: Chest X-Ray 09/21/20 18:17 XR chest 1V portable CLINICAL HISTORY: syncope COMPARISON STUDY: May 16, 2020 FINDINGS: No pneumothorax. No pleural effusion. No large infiltrates or consolidative lesions are seen. Diffuse prominence of pulmonary interstitium is seen bilaterally. Mild peribronchial cuffing is seen mostly on the right. Cardiomediastinal silhouette is within normal limits in size. Minimal pulmonary vascular congestion.. Aorta is calcified. Osseous structures: Degenerative changes of the spine. IMPRESSION: 1. Minimal pulmonary vascular congestion. Possible pulmonary edema. ACT 112: Negative or not required by law. The above report was generated using voice recognition software. It may contain grammatical, syntax or spelling errors. Electronically signed by: Tesha Conde DO 09/21/2020 6:53 PM ECG Data Indication: + syncope Rate (beats per minute): 80 Rhythm: + normal sinus ECG Intervals/blocks: + Normal QRS, + Normal QT and + Normal IN ECG [place]: + Normal ECG ST segments: + Normal ST segments ECG Findings: no PACs and no PVCs Comparison ECG Date: from (05/31/20) Change: no significant change MDM Narrative This patient comes in as described above. She has had frequent nosebleeds for a couple weeks and a syncopal episode today. At present, she is not bleeding and has stable vital signs. IV access was established and she was gently hydrated with IV normal saline bolus. EKG was obtained because multiple blood testing was obtained I also did order type and screen. Her hemoglobin is stable. She is no significant white count. Her platelets are low at 100,000 although she typically runs in this range. Her LFTs are not significantly abnormal however her total bilirubin has gone up to over 4. It typically runs at 2. It may be that her liver function getting worse has caused her to be more hypercoagulable. She had no further nosebleeding while she was here. Her EKG did not show ischemia and her troponin is negative. She has nothing to suggest she is in heart failure pneumonia or pneumothorax. Given her syncope, frequent nosebleeds, frequent falls and worsening bilirubin I do think she should be admitted/observed. I have consulted Dr. Mustafa to see her in the ER for these measures. Continuous cardiac monitoring. The patient was placed on a continuous cardiac m onitor, an order in EMR was placed. 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
[2020-09-21] MEDS ORDERED: SODIUM CHLORIDE 0.9% 500 ML IV SCH (18:30)
[2020-09-21 18:47] LABS: Basophils # (auto) 0.01 K/uL (0-0.2); Basophils % (auto) 0.2 %; Eosinophils # (auto) 0.16 K/uL (0-0.5); Eosinophils % (auto) 3.7 %; Hemoglobin 13.3 g/dL (12.0-16.0); Immature Granulocytes # (auto) 0.01 K/uL (0.00-0.02); Immature Granulocytes % (auto) 0.2 %; Lymphocytes # (auto) 1.33 K/uL (1.2-3.4); Lymphocytes % (auto) 30.8 %; Mean Corpuscular Hemoglobin 31.4 pg (25-34); Mean Corpuscular Volume 89.8 fL (80-100); Mean Platelet Volume 9.4 fL (7.4-10.4); Monocytes # (auto) 0.66 K/uL (0.11-0.59); Monocytes % (auto) 15.3 %; Neutrophils # (auto) 2.15 K/uL (1.4-6.5); Neutrophils % (auto) 49.8 %; Platelet Count 101 K/uL (130-400); RDW Coefficient of Variation 15.8 % (11.5-14.5); RDW Standard Deviation 51.5 fL (36.4-46.3); Red Blood Count 4.23 M/uL (4.2-5.4); White Blood Count 4.32 K/uL (4.8-10.8)
--- NOTE | 2020-09-21 18:54 | XRay Report ---
XR chest 1V portable CLINICAL HISTORY: syncope COMPARISON STUDY: May 16, 2020 FINDINGS: No pneumothorax. No pleural effusion. No large infiltrates or consolidative lesions are seen. Diffuse prominence of pulmonary interstitium is seen bilaterally. Mild peribronchial cuffing is seen mostly on the right. Cardiomediastinal silhouette is within normal limits in size. Minimal pulmonary vascular congestion.. Aorta is calcified. Osseous structures: Degenerative changes of the spine. IMPRESSION: 1. Minimal pulmonary vascular congestion. Possible pulmonary edema. ACT 112: Negative or not required by law. The above report was generated using voice recognition software. It may contain grammatical, syntax o r spelling errors. Electronically signed by: Tesha Conde DO 09/21/2020 6:53 PM
[2020-09-21 18:55] LABS: INR 1.2 (0.9-1.1); Partial Thromboplastin Ratio 1.1; Partial Thromboplastin Time 27.9 Seconds (21.0-31.0); Prothrombin Time 12.2 Seconds (9.0-12.0)
[2020-09-21 18:59] LABS: Albumin Level 3.5 gm/dl (3.4-5.0); BUN Creatinine Ratio 8.5 (10-20); Calcium 10.8 mg/dl (8.5-10.1); Creatinine Clr Calc Pharmacy 41.1 ml/min; Est GFR (African American) 52.6 ml/min; Est GFR (Non-African American) 45.4 ml/min; Magnesium 2.4 mg/dl (1.8-2.4); Potassium 3.6 mmol/L (3.5-5.1)
[2020-09-21 19:04] LABS: Albumin Globulin Ratio 1.1 (0.9-2); Bilirubin,Total 4.1 mg/dl (0.2-1); Globulin 3.3 gm/dl (2.5-4.0); Total Protein 6.8 gm/dl (6.4-8.2); Troponin I 0.022 ng/ml (0-0.045)
--- NOTE | 2020-09-21 20:40 | History & Physical Report ---
Date of Service September 21, 2020 Assessment & Plan (1) Epistaxis: 65yo female with multiple medical problems presenting with syncopal event following epistaxis. Patient reports large-volume epistaxis this afternoon with subsequent syncopal event. She has been having epistaxis intermittently over the last 2-3 weeks. She is not on ASA or blood thinners. Platelets are 101. No trauma. No active bleeding. Hgb = 13.3 -Observation to medical floor with telemetry -Monitor for recurrent epistaxis - PRN Afrin order set placed -Consider ENT consultation or outpatient followup should problem persist Present on Admission?: Yes (2) Syncope: Patient with syncopal event following episode of epistaxis. Syncope occurred after patient stood up from a sitting position. She is HD stable. H/H is acceptable at 13.3/38. Suspect orthostatic syncope. EKG is unremarkable. Troponin is detectable at 0.022 but within normal range. -Telemetry monitoring -Repeat troponin with AM labs Present on Admission?: Yes (3) 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: Overall compensated with slight worsening of Tbili from baseline. -Avoid hepatotoxic agents -Check ammonia - daughter reports forgetfulness, imbalance - ?developing hepatic encephalopathy -Repeat LFTs in AM -Patient with varices noted on CT - no history of variceal bleed. Will initiate Propranolol 10mg po BID for primary prevention -She is to establish care with Cirrhosis clinic at [facility] soon Present on Admission?: Yes (4) Diabetes mellitus, type 2: Chronic. On home Dulaglutide -ISS -Goal blood sugars 100 - 140 Present on Admission?: Yes (5) Hypothyroidism: Chronic -Continue Synthroid 112 mcg daily Present on Admission?: Yes (6) Hypercalcemia: Chronic -COntinue Sensipar Present on Admission?: Yes (7) GERD (gastroesophageal reflux disease): Chronic -Continue Protonix 40mg daily Present on Admission?: Yes (8) Hyperlipidemia: Chronic -Continue Crestor 20mg po qHS Present on Admission?: Yes (9) Hypertension: Patient was previously on blood pressure medication which was discontinued. States her BP has been high since stopping her medications. Presently 166/77 - patient is quite anxious as well -Propranolol 10mg po BID for some BP control as well as varices -Continue to monitor Present on Admission?: Yes (10) Anxiety and depression: Chronic -Ativan 1mg po TID PRN per home dosing -Continue Paxil 20mg po daily F/E/N - Heplock. Monitor electrolytes, continue home K repletion, CC/AHA diet as tolerated Ppx - SCDs Code - DNR/DNI per discussion with patient Dispo - Observation to medical with telemetry Present on Admission?: Yes History of Present Illness Primary Care Provider: Reza Cid MD Aurelia Kurtz is a 65yo female with history of DM, HTN, HLP and cirrhosis of the liver secondary to REBOLLAR with CT confirmed varices and trace ascites presenting with epistaxis and syncopal event. Patient presents with her daughter. States that she has been getting nosebleeds intermittently for the last 2-3 weeks. Today she had a severe nosebleed - states that blood was pouring down the back of her throat. When she blew her nose she had clots as well. She held pressure with no relief. EMS was called - patient was leaning over a trash can - when EMT arrived she tried to get up and had a syncopal event upon standing. She possibly had a second syncopal event in the ambulance. Patient denies chest pain, palpitations. No facial or nose trauma. She does not pick her nose bit states that she does blow her nose a lot. She has history of seasonal allergies but states that she has not had stuffiness lately. No O2 use, air is not overly dry at home. She does not take ASA or Ibuprofen. No blood thinners. Patient denies fever, chills, chest pain, palpitations, cough, SOB, abdominal pain, bloating, nausea, vomiting, diarrhea or constipation. No melena/hematochezia. No dysuria. She has had a decrease in her appetite and oral intake of late and daughter states that she is more foregetful. Patient with history of liver 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. She has varices noted on CT of the abdomen in May 2020. No variceal bleeding. She follows with Dr. García - last seen yesterday. She is being referred to the Cirrhosis clinic at [facility]. Patient has reported weakness and imbalance for the last 2-3 weeks as well as episodic dizziness and vertigo. She has discussed these symptoms with her PCP - last seen today. MRI/MRA brain is ordered - patient is to have the study on Wednesday at 0700. Patient hemodynamically stable in the ER. No epistaxis. ER Course: NSS Allergies Allergy/AdvReac Type Severity Reaction Status Date / Time bee venom protein (honey bee) Allergy Severe Anaphylaxis Verified 07/24/20 12:10 Influenza Virus Vaccines Allergy Severe Anaphylaxis Verified 07/24/20 12:10 tetracycline AdvReac Severe Severe Verified 07/24/20 12:10 stomach pains Home Medications Medication Instructions Recorded Confirmed Type omeprazole 40 mg PO QDL 08/03/18 09/21/20 History paroxetine HCl 20 mg PO QAM 04/17/19 09/21/20 History cyanocobalamin (vitamin B-12) 5,000 mcg PO DAILY 11/30/19 09/21/20 History 5,000 mcg capsule multivit,Ca,cgn-idts-GR-guarana-caff 1 tab PO QAM 11/30/19 09/21/20 History 18 mg iron-400 mcg-180 mg tablet cholecalciferol (vitamin D3) 25 1,000 unit PO DAILY #30 cap 12/28/19 09/21/20 Rx mcg (1,000 unit) capsule ferrous sulfate 325 mg (65 mg 325 mg PO BID tab 12/28/19 09/21/20 History iron) tablet rosuvastatin 20 mg tablet 20 mg PO HS tab 12/28/19 09/21/20 History potassium chloride 20 mEq 20 meq PO QAM 04/03/20 09/21/20 History tablet,extended release ascorbic acid (vitamin C) [Vitamin 500 mg PO DAILY 07/19/20 09/21/20 History C] dicyclomine 20 mg tablet 20 mg PO QID PRN tab 07/23/20 09/21/20 History dulaglutide 1.5 mg/0.5 mL 1.5 mg SUBCUT ONCE 90 Days #45 ml 07/23/20 09/21/20 Rx subcutaneous pen injector levothyroxine 112 mcg tablet 112 mcg PO DAILY #30 tab 07/23/20 09/21/20 Rx cinacalcet 30 mg tablet 30 mg PO DAILY #90 tab 08/19/20 09/21/20 Rx lorazepam 1 mg PO TID PRN 09/21/20 09/21/20 History Past Med/Surg History Medical History Anemia Anxiety and depression Arthritis Moeller's esophagus with esophagitis Colitis Diabetes mellitus, type 2 Diverticulosis GERD (gastroesophageal reflux disease) GI bleed RECENT HOSPITALIZED Heel spur B/L feet Hiatal hernia History of kidney stones Hyperlipidemia Hypertension NO CURRENT MEDS Hypothyroidism 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 Nephrolithiasis RESOLVED Spleen enlarged Stucco keratoses Temporomandibular joint disorder NO LOCKING/WEARS 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 Surgical History H/O thumb surgery RT/LEFT JOINT REPAIR H/O total hysterectomy History of appendectomy History of arthroscopy of knee Left Knee - meniscus/cartilage History of colonoscopy History of cystoscopy History of esophagogastroduodenoscopy (EGD) History of tonsillectomy and adenoidectomy History of tooth extraction Hx of cholecystectomy Family History Brother Coronary heart disease Mother Family history of diabetes mellitus Sister Family history of diabetes mellitus Son Family history of diabetes mellitus Father Family hx of colon cancer Grandfather (Maternal) Family hx of colon cancer Other No family history of adverse response to anesthesia Social History Smoking Status: Never smoker Second Hand Exposure: No; Do You Dip or Chew Tobacco: No; Tobacco Cessation Education Requested by Patient: No Hx Alcohol Use: No Hx Substance Use: No Preferred Language: Chadian Communication Ability: Effective Personnel Quality Assurance Auditor Required: No Beliefs That Will Affect Care: None marital status: Current Living Situation: Spouse and Family Current Living Situation Comment: and sister current occupational status: employed Other Information That Helps Us Care for You: No Feels Safe at Home: Yes Safety Concerns: Feels Safe At This Time Assistive Devices: None Review of Systems Review of Systems: All systems reviewed & are unremarkable except as noted in HPI & below Physical Exam Physical Exam: General: patient resting comfortably, NAD, non-toxic in appearance, AA&O x 4 Skin: warm, dry, intact, no rashes or lesions HEENT: NC/AT, PERRL, EOMI, anicteric sclera, conjunctiva without injection, external ear normal to inspection and nontender, nares patent, no lesions noted in anterior nares, no bleeding noted in posterior pharynx, moist mucus membranes, dentition intact with no bleeding, no oropharyngeal lesions, neck supple, trachea midline, no LAD, no thyromegaly, no JVD Heart: +S1/S2, regular, no m/r/g Lungs: equal air entry bilaterally, no rales/rhonchi/wheezes Abd: +BS, soft, NT/ND, no masses/organomegaly/ascites Ext: warm, 2+ pulses in UE/LE bilaterally, no clubbing/cyanosis or edema Neuro: nonfocal, patient AA&O x 4, speech intact, no facial droop, moving all extremities on command with equal strength 5/5 Results & Data Results & Data ([facility]) Vital Signs (Past 12 Hours) Vital Signs Temp Pulse Pulse Resp BP BP Pulse Ox 09/21/20 20:34 89 20 154/66 H 94 09/21/20 18:24 81 96 09/21/20 18:17 37.0 C 81 81 17 163/81 H 163/81 H 97 09/21/20 18:12 80 13 163/81 H 96 Laboratory Results Laboratory Results WBC 4.32 K/uL (4.8-10.8) L 09/21/20 18:29 RBC 4.23 M/uL (4.2-5.4) 09/21/20 18:29 Hgb 13.3 g/dL (12.0-16.0) 09/21/20 18:29 Hct 38.0 % (37-47) 09/21/20 18:29 MCV 89.8 fL (80-100) 09/21/20 18:29 MCH 31.4 pg (25-34) 09/21/20 18: MCHC 35.0 g/dL (32-36) 09/21/20 18:29 RDW Std Deviation 51.5 fL (36.4-46.3) H 09/21/20 18:29 RDW Coeff of Charlee 15.8 % (11.5-14.5) H 09/21/20 18:29 Plt Count 101 K/uL (130-400) L 09/21/20 18:29 MPV 9.4 fL (7.4-10.4) 09/21/20 18:29 Immature Gran % (Auto) 0.2 % 09/21/20 18: Neut % (Auto) 49.8 % 09/21/20 18: Lymph % (Auto) 30.8 % 09/21/20 18:29 [place] % (Auto) 15.3 % 09/21/20 18:29 Eos % (Auto) 3.7 % 09/21/20 18: Baso % (Auto) 0.2 % 09/21/20 18:29 Neut # (Auto) 2.15 K/uL (1.4-6.5) 09/21/20 18: Lymph # (Auto) 1.33 K/uL (1.2-3.4) 09/21/20 18: [place] # (Auto) 0.66 K/uL (0.11-0.59) H 09/21/20 18: Eos # (Auto) 0.16 K/uL (0-0.5) 09/21/20 18: Baso # (Auto) 0.01 K/uL (0-0.2) 09/21/20 18: Immature Gran # (Auto) 0.01 K/uL (0.00-0.02) 09/21/20 18: PT 12.2 Seconds (9.0-12.0) H 09/21/20 18: INR 1.2 (0.9-1.1) H 09/21/20 18: APTT 27.9 Seconds (21.0-31.0) 09/21/20 18: PTT Ratio 1.1 09/21/20 18: Sodium 142 mmol/L (136-145) 09/21/20 18: Potassium 3.6 mmol/L (3.5-5.1) 09/21/20 18: Chloride 109 mmol/L (98-107) H 09/21/20 18: Carbon Dioxide 30 mmol/L (21-32) 09/21/20 18: Anion Gap 3.0 (3-11) 09/21/20 18: BUN 10 mg/dl (7-18) 09/21/20 18: Creatinine 1.23 mg/dl (0.6-1.2) H 09/21/20 18:29 Est Cr Clr Drug Dosing 41.1 ml/min 09/21/20 18:29 Est GFR ( Amer) 52.6 ml/min 09/21/20 18: Est GFR (Non-Af Amer) 45.4 ml/min 09/21/20 18:29 BUN/Creatinine Ratio 8.5 (10-20) L 09/21/20 18:29 Glucose 108 mg/dl (70-99) H 09/21/20 18:29 POC Glucose 130 mg/dl (70-99) H 09/21/20 22:34 Calcium 10.8 mg/dl (8.5-10.1) H 09/21/20 18: Magnesium 2.4 mg/dl (1.8-2.4) 09/21/20 18:29 Total Bilirubin 4.1 mg/dl (0.2-1) H 09/21/20 18:29 AST 71 U/L (15-37) H 09/21/20 18: ALT 48 U/L (12-78) 09/21/20 18: Alkaline Phosphatase 217 U/L (45-117) H 09/21/20 18: Troponin I 0.022 ng/ml (0-0.045) 09/21/20 18: Total Protein 6.8 gm/dl (6.4-8.2) 09/21/20 18: Albumin 3.5 gm/dl (3.4-5.0) 09/21/20 18: Globulin 3.3 gm/dl (2.5-4.0) 09/21/20 18: Albumin/Globulin Ratio 1.1 (0.9-2) 09/21/20 18:29 COVID-19 Eval Order Covid19 IDNow [facility] 09/21/20 20:29 SARS-CoV-2, RNA, NAAT NEGATIVE (NEGATIVE) 09/21/20 20:29 Blood Type A Positive 09/21/20 18:29 Antibody Screen NEGATIVE 09/21/20 18:29 Impressions Chest X-Ray 09/21/20 18:17 XR chest 1V portable CLINICAL HISTORY: syncope COMPARISON STUDY: May 16, 2020 FINDINGS: No pneumothorax. No pleural effusion. No large infiltrates or consolidative lesions are seen. Diffuse prominence of pulmonary interstitium is seen bilaterally. Mild peribronchial cuffing is seen mostly on the right. Cardiomediastinal silhouette is within normal limits in size. Minimal pulmonary vascular congestion.. Aorta is calcified. Osseous structures: Degenerative changes of the spine. IMPRESSION: 1. Minimal pulmonary vascular congestion. Possible pulmonary edema. ACT 112: Negative or not required by law. The above report was generated using voice recognition software. It may contain grammatical, syntax or spelling errors. Electronically signed by: Tesha Conde DO 09/21/2020 6:53 PM ECG Additional Comments: EKG with NSR at 80, normal axis, CB=088, QRS=72, JMp=616, no acute ischemic changes, poor R-wave progression PG Care Time/CCT Total # of Minutes Spent Total Time Spent with Patient: Total time spent is greater than 50% in c oordination of care (as documented) at patient's floor/unit and/or counseling patient: Coding Level of Care Code 03761 OBS Care - Level 3 Diagnoses Epistaxis R04.0 Syncope R55 Syncope type: unspecified 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 Diabetes mellitus, type 2 E11.9; Z79.4 Diabetes mellitus nursing home insulin use: with nursing home use Diabetes mellitus complication status: without complication Hypothyroidism E03.9 Hypothyroidism type: unspecified Hypercalcemia E83.52 GERD (gastroesophageal reflux disease) K21.9 Esophagitis presence: esophagitis presence not specified Hyperlipidemia E78.5 Hyperlipidemia type: unspecified Hypertension I10 Hypertension type: primary hypertension Anxiety and depression F41.9; F32.9 (1) Diabetes mellitus, type 2 Diabetes mellitus supervisor intermediates insulin use: with nursing home use Diabetes mellitus complication status: without complication Qualified Code(s): E11.9 - Type 2 diabetes mellitus without complications; Z79.4 - prison (current) use of insulin (2) Hypothyroidism Hypothyroidism type: unspecified Qualified Code(s): E03.9 - Hypothyroidism, unspecified (3) GERD (gastroesophageal reflux disease) Esophagitis presence: esophagitis presence not specified Qualified Code(s): K21.9 - Gastro-esophageal reflux disease without esophagitis (4) Hyperlipidemia Hyperlipidemia type: unspecified Qualified Code(s): E78.5 - Hyperlipidemia, unspecified (5) Hypertension Hypertension type: primary hypertension Qualified Code(s): I10 - Essential (primary) hypertension (6) Syncope Syncope type: unspecified Qualified Code(s): R55 - Syncope and collapse
[2020-09-21] MEDS ORDERED: LORazepam 1 MG TAB ONE (21:23)
[2020-09-21] MEDS ORDERED: DEXTROSE 50% 50 ML SYRINGE IV PRN (22:33)
[2020-09-21] MEDS ORDERED: GLUCAGON FOR INJ 1 MG VIAL SQ PRN (22:33)
[2020-09-21] MEDS ORDERED: LORazepam 1 MG TAB PO PRN (22:33)
[2020-09-21] MEDS ORDERED: GLUCOSE 40% GEL 15 GM TUBE PO PRN (22:33)
[2020-09-21] MEDS ORDERED: CARBOHYDRATES FOR HYPOGLYCEMIA PO PRN (22:33)
[2020-09-21] MEDS ORDERED: ONDANSETRON INJ 2 MG/ML 2 ML VIAL IV PRN (22:33)
[2020-09-21] MEDS ORDERED: DICYCLOMINE HCL 20 MG TAB PO PRN (22:33)
[2020-09-21] MEDS ORDERED: GLUCOSE 10 TABS/TUBE PO PRN (22:33)
[2020-09-21] MEDS ORDERED: OXYMETAZOLINE 0.05% 30 ML BTL ONE (23:00)
[2020-09-21] MEDS ORDERED: LORazepam 1 MG TAB PO STA (23:09)
[2020-09-21] MEDS: INSULIN ASPART 100 UNITS/ML 3 ML PEN SC SCH (23:27)
[2020-09-21] MEDS: ROSUVASTATIN CALCIUM 20 MG TAB PO SCH (23:30)
[2020-09-21] MEDS: PROPRANOLOL HCL 10 MG TAB PO SCH (23:30)
[2020-09-22] MEDS: LEVOTHYROXINE SODIUM 112 MCG TABLET PO SCH (06:05)
[2020-09-22 06:54] LABS: Hematocrit (blood only) 36.1 % (37-47); Hemoglobin 12.6 g/dL (12.0-16.0); Mean Corpuscular Hemoglobin 32.1 pg (25-34); Mean Corpuscular Hgb Conc 34.9 g/dL (32-36); Mean Corpuscular Volume 91.9 fL (80-100); RDW Coefficient of Variation 15.8 % (11.5-14.5); RDW Standard Deviation 53.3 fL (36.4-46.3); Red Blood Count 3.93 M/uL (4.2-5.4); White Blood Count 4.18 K/uL (4.8-10.8)
[2020-09-22 07:15] LABS: BUN Creatinine Ratio 11.4 (10-20); Bilirubin Direct 1.2 mg/dl (0-0.2); Bilirubin,Total 3.6 mg/dl (0.2-1); Calcium 9.9 mg/dl (8.5-10.1); Est GFR (African American) 66.7 ml/min; Est GFR (Non-African American) 57.6 ml/min; Potassium 3.3 mmol/L (3.5-5.1)
[2020-09-22 07:16] LABS: Mean Platelet Volume 9.2 fL (7.4-10.4); Platelet Count 96 K/uL (130-400)
[2020-09-22 07:17] LABS: Total Protein 5.9 gm/dl (6.4-8.2); Troponin I 0.031 ng/ml (0-0.045)
[2020-09-22 07:18] LABS: Basophils # (auto) 0.01 K/uL (0-0.2); Basophils % (auto) 0.2 %; Eosinophils # (auto) 0.25 K/uL (0-0.5); Lymphocytes % (auto) 33.5 %; Monocytes # (auto) 0.59 K/uL (0.11-0.59); Monocytes % (auto) 14.1 %; Neutrophils # (auto) 1.93 K/uL (1.4-6.5); Neutrophils % (auto) 46.2 %; Platelet Estimate Decreased (Normal)
--- NOTE | 2020-09-22 07:37 | Electrocardiogram Report ---
Test Reason : Blood Pressure : / mmHG Vent. Rate : 080 BPM Atrial Rate : 080 BPM P-R Int : 142 ms QRS Dur : 072 ms QT Int : 394 ms P-R-T Axes : 062 033 063 degrees QTc Int : 454 ms Poor data quality, interpretation may be adversely affected Normal sinus rhythm Nonspecific ST abnormality When compared with ECG of 31-MAY-2020 16:03, Nonspecific T wave abnormality no longer evident in Inferior leads Confirmed by Wilton Overton ([id number]) on 09/22/2020 7:36:52 AM Referred By: REFERRED SELF Confirmed By:Juan Francisco Overton
[2020-09-22] MEDS ORDERED: POTASSIUM CHLORIDE CRTAB 20 MEQ TABCR PO ONE (07:41)
[2020-09-22] MEDS: INSULIN ASPART 100 UNITS/ML 3 ML PEN SC SCH ×4 (09:36→21:29)
[2020-09-22] MEDS: PROPRANOLOL HCL 10 MG TAB PO SCH ×2 (09:38→20:41)
[2020-09-22] MEDS: LACTULOSE SYRUP 20 GM/30 ML UDC PO SCH ×2 (09:38→20:41)
[2020-09-22] MEDS: POTASSIUM CHLORIDE CRTAB 20 MEQ TABCR PO SCH (09:39)
[2020-09-22] MEDS: PARoxetine HCL 20 MG TAB PO SCH (09:39)
[2020-09-22] MEDS: CINACALCET HCL 30 MG TAB PO SCH (09:39)
[2020-09-22] MEDS: PANTOprazole 40 MG TAB PO SCH (09:40)
--- NOTE | 2020-09-22 11:02 | Hospitalist Progress Note ---
Date of Service September 22, 2020 Assessment & Plan (1) Epistaxis: 65yo female with multiple medical problems presenting with syncopal event following epistaxis. Patient reports large-volume epistaxis yesterday afternoon with subsequent syncopal event. She has been having epistaxis intermittently over the last 2-3 weeks. She is not on ASA or blood thinners. Platelets are 96 this AM. No trauma. No active bleeding. H&H 12.6 and 36.1 this AM. - No epistaxis overnight. -Patient c/o hearing loss with ear pain over the past several weeks as well. Normal TMs on exam today. -Observation to medical floor with telemetry -Monitor for recurrent epistaxis - PRN Afrin order set placed -Consider ENT consultation or outpatient followup should problem persist (2) Syncope: Patient with syncopal event following episode of epistaxis. Syncope occurred after patient stood up from a sitting position. She is HD stable. H/H is acceptable at 13.3/38 on admission. Suspect orthostatic syncope. EKG is unremarkable. Troponin is detectable at 0.022 but within normal range. Repeated this AM and remained within normal range at 0.031. -Telemetry monitoring (3) 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: Overall compensated with slight worsening of Tbili from baseline on admssion. -Total bili remains elevated, but improved to 3.6 this AM. AST improved to 58. -Avoid hepatotoxic agents -Daughter reports forgetfulness, imbalance - ?developing hepatic encephalopathy---> ammonia elevated at 72.9- lactulose 20gm PO BID started- recheck ammonia in the AM. -Will order PT/OT eval to fully evaluate the patient's balance and ability to perform ADLs on her own. -Patient with varices noted on CT - no history of variceal bleed. Propranolol 10mg PO BID initiated for primary prevention -She is to establish care with Cirrhosis clinic at [facility] soon -Brain MRA pending as an outpatient on 09/24/20 at 0700. Ordered by PCP Dr. Cid. (4) Diabetes mellitus, type 2: Chronic. On home Dulaglutid - Last HgbA1C 5.1% on 07/18/20 - SS insulin, BSG ACHS -Goal blood sugars 100 - 140 (5) Hypothyroidism: Chronic -TSH 0.882 on 09/16/20 -Continue Synthroid 112 mcg daily (6) Hypercalcemia: Chronic -Continue Sensipar (7) GERD (gastroesophageal reflux disease): Chronic -Continue Protonix 40mg daily (8) Hyperlipidemia: Chronic -Continue Crestor 20mg po qHS (9) Hypertension: Patient was previously on blood pressure medication which was discontinued. States her BP has been high since stopping her medications. 166/77 on admission- patient was quite anxious on admission -Propranolol 10mg po BID ordered for some BP control as well as varices -BP improved to 143/70 this AM. -Continue to monitor. (10) Anxiety and depression: Chronic -Ativan 1mg po TID PRN per home dosing -Continue Paxil 20mg po daily (11) Hypokalemia: Potassium was 3.3 this AM. -Continue 20meq daily AM dosing. -An additional 40meq provided this AM. -Recheck in AM. (12) DVT prophylaxis: SCDs Avoid chemical prophylaxis in the setting of epistaxis. F/E/N - Heplock. Monitor electrolytes, continue home K repletion, CC/AHA diet as tolerated Code - DNR/DNI per discussion with patient Dispo - Observation to medical with telemetry Admission and Anticipated Discharge Date Admission Date: September 21, 2020 Subjective 65 year old female admitted with syncopal event s/p epistaxis. She denies any epistaxis overnight. She states she feels worn out this morning. Denies pain or n/v. She does c/o bilateral ear pain x several weeks without congestion or rhinorrhea. She denies dizziness or vertigo with the ear pain. She does note some hearing loss. Review of Systems Constitutional: + fatigue; no fever and no chills Eyes: no worsening vision Ear, Nose, Mouth, Throat: + ear pain (bilateral ) and + hearing loss (associated with the ear pain ); no ear discharge and no dizziness Respiratory: no dyspnea Cardiovascular: no chest pain Gastrointestinal: no abdominal pain, no nausea and no vomiting Neurologic: no dizziness Physical Exam Constitutional: + overweight; no acute distress ENMT: Ears: no hearing impairment, no external ear abnormality and no TM abnormality Neck: trachea midline, no thyromegaly Respiratory: normal respiratory effort, lungs clear to auscultation Cardiovascular: RRR, no murmur, no edema Gastrointestinal (Abdomen): Inspection/Auscultation: + abdomen distended and normal bowel sounds Percussion/Palpation: abdomen soft; abdomen nontender Skin: no rashes, warm and dry Psychiatric: A+Ox3, euthymic affect Lymphatic: + cervical lymphadenopathy (mild swelling right cervical node ) Results & Data Results & Data ([facility]) Vital Signs (Past 12 Hours) Vital Signs Temp Pulse Pulse Resp BP Pulse Ox 09/22/20 10:00 73 09/22/20 08:05 36.6 C 74 17 143/70 H 95 09/22/20 06:10 84 09/22/20 04:19 36.8 C 71 16 143/70 H 93 PG Care Time/CCT Total # of Minutes Spent Total Time Spent with Patient: Total time spent is greater than 50% in coordination of care (as documented) at patient's floor/unit and/or counseling patient: Coding Level of Care Code 74524 Subseq Hosp Care Lvl 2 History Expanded Problem Focused Exam Detailed Medical Decision Making Moderate Complexity Diagnoses Epistaxis R04.0 Syncope R55 Syncope type: unspecified 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 Diabetes mellitus, type 2 E11.9; Z79.4 Diabetes mellitus complication status: without complication Diabetes mellitus mcc insulin use: with intermodal dispatcher use Hypothyroidism E03.9 Hypothyroidism type: unspecified Hypercalcemia E83.52 GERD (gastroesophageal reflux disease) K21.9 Esophagitis presence: esophagitis presence not specified Hyperlipidemia E78.5 Hyperlipidemia type: unspecified Hypertension I10 Hypertension type: primary hypertension Anxiety and depression F41.9; F32.9 Hypokalemia E87.6 DVT prophylaxis Z29.9 (1) Diabetes mellitus, type 2 Diabetes mellitus complication status: without complication Diabetes mellitus intermodal dispatcher insulin use: with mcc use Qualified Code(s): E11.9 - Type 2 diabetes mellitus without complications; Z79.4 - group home (current) use of insulin (2) Hyperlipidemia Hyperlipidemia type: unspecified Qualified Code(s): E78.5 - Hyperlipidemia, unspecified (3) Hypothyroidism Hypothyroidism type: unspecified Qualified Code(s): E03.9 - Hypothyroidism, unspecified (4) Syncope Syncope type: unspecified Qualified Code(s): R55 - Syncope and collapse (5) GERD (gastroesophageal reflux disease) Esophagitis presence: esophagitis presence not specified Qualified Code(s): K21.9 - Gastro-esophageal reflux disease without esophagitis (6) Hypertension Hypertension type: primary hypertension Qualified Code(s): I10 - Essential (primary) hypertension
[2020-09-22] MEDS ORDERED: ACETAMINOPHEN 325 MG TAB PO ONE (18:43)
[2020-09-22] MEDS ORDERED: IBUPROFEN 200 MG TAB PO STA (19:40)
[2020-09-22] MEDS: ROSUVASTATIN CALCIUM 20 MG TAB PO SCH (20:41)
[2020-09-23] MEDS: LEVOTHYROXINE SODIUM 112 MCG TABLET PO SCH (06:09)
[2020-09-23 08:22] LABS: BUN Creatinine Ratio 12.8 (10-20); Calcium 8.9 mg/dl (8.5-10.1); Creatinine Clr Calc Pharmacy 43.5 ml/min; Est GFR (African American) 57.6 ml/min; Est GFR (Non-African American) 49.7 ml/min; Potassium 3.2 mmol/L (3.5-5.1)
[2020-09-23] MEDS: PROPRANOLOL HCL 10 MG TAB PO SCH (09:00)
[2020-09-23] MEDS: CINACALCET HCL 30 MG TAB PO SCH (09:00)
[2020-09-23] MEDS: PARoxetine HCL 20 MG TAB PO SCH (09:00)
[2020-09-23] MEDS: POTASSIUM CHLORIDE CRTAB 20 MEQ TABCR PO SCH (09:00)
[2020-09-23] MEDS: INSULIN ASPART 100 UNITS/ML 3 ML PEN SC SCH ×3 (09:01→17:29)
[2020-09-23] MEDS: PANTOprazole 40 MG TAB PO SCH (09:01)
[2020-09-23] MEDS: LACTULOSE SYRUP 20 GM/30 ML UDC PO SCH (09:01)
[2020-09-23] MEDS ORDERED: POTASSIUM CHLORIDE CRTAB 20 MEQ TABCR PO STA (10:24)
--- NOTE | 2020-09-23 16:59 | Discharge Summary ---
Date of Service September 23, 2020 Admission HPI Per Admitting Provider Aurelia Kurtz is a 65yo female with history of DM, HTN, HLP and cirrhosis of the liver secondary to REBOLLAR with CT confirmed varices and trace ascites presenting with epistaxis and syncopal event. Patient presents with her daughter. States that she has been getting nosebleeds intermittently for the last 2-3 weeks. Today she had a severe nosebleed - states that blood was pouring down the back of her throat. When she blew her nose she had clots as well. She held pressure with no relief. EMS was called - patient was leaning over a trash can - when EMT arrived she tried to get up and had a syncopal event upon standing. She possibly had a second syncopal event in the ambulance. Patient denies chest pain, palpitations. No facial or nose trauma. She does not pick her nose bit states that she does blow her nose a lot. She has history of seasonal allergies but states that she has not had stuffiness lately. No O2 use, air is not overly dry at home. She does not take ASA or Ibuprofen. No blood thinners. Patient denies fever, chills, chest pain, palpitations, cough, SOB, abdominal pain, bloating, nausea, vomiting, diarrhea or constipation. No melena/hematochezia. No dysuria. She has had a decrease in her appetite and oral intake of late and daughter states that she is more foregetful. Patient with history of liver 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. She has varices noted on CT of the abdomen in May 2020. No variceal bleeding. She follows with Dr. García - jones seen yesterday. She is being referred to the Cirrhosis clinic at [facility]. Patient has reported weakness and imbalance for the last 2-3 weeks as well as episodic dizziness and vertigo. She has discussed these symptoms with her PCP - last seen today. MRI/MRA brain is ordered - patient is to have the study on Wednesday at 0700. Patient hemodynamically stable in the ER. No epistaxis. ER Course: NSS Principal Diagnosis Vasovagal syncope Discharge Exam Constitutional WD/WN, vitals as above Eyes PERRL, conjunctivae normal, anicteric sclerae ENMT external ear and nose normal, oropharynx normal Neck trachea midline, no thyromegaly Respiratory normal respiratory effort, lungs clear to auscultation Cardiovascular RRR, no murmur, no edema Chest (Breasts) Chest: normal inspection of chest Gastrointestinal (Abdomen) normal bowel sounds, soft, nontender, no hepatosplenomegaly Musculoskeletal Extremities: extremities normal to inspection; no cyanosis and no clubbing Skin no rashes, warm and dry Neurologic moves all extremities and awake; no focal motor deficits Psychiatric A+Ox3, euthymic affect Lymphatic no lymphedema Discharge Data Allergies Allergy/AdvReac Type Severity Reaction Status Date / Time bee venom protein (honey bee) Allergy Severe Anaphylaxis Verified 07/24/20 12:10 Influenza Virus Vaccines Allergy Severe Anaphylaxis Verified 07/24/20 12:10 tetracycline AdvReac Severe Severe Verified 07/24/20 12:10 stomach pains Consultations 09/21/20 20:04 ED Decision to Admit Stat Ordered Studies Chest X-Ray 09/21/20 18:17 XR chest 1V portable CLINICAL HISTORY: syncope COMPARISON STUDY: May 16, 2020 FINDINGS: No pneumothorax. No pleural effusion. No large infiltrates or consolidative lesions are seen. Diffuse prominence of pulmonary interstitium is seen bilaterally. Mild peribronchial cuffing is seen mostly on the right. Cardiomediastinal silhouette is within normal limits in size. Minimal pulmonary vascular congestion.. Aorta is calcified. Osseous structures: Degenerative changes of the spine. IMPRESSION: 1. Minimal pulmonary vascular congestion. Possible pulmonary edema. ACT 112: Negative or not required by law. The above report was generated using voice recognition software. It may contain grammatical, syntax or spelling errors. Electronically signed by: Tesha Conde DO 09/21/2020 6:53 PM Hospital Course (1) Epistaxis: 65yo female with multiple medical problems presenting with syncopal event following epistaxis. Patient reports large-volume epistaxis this afternoon with subsequent syncopal event. She has been having epistaxis intermittently over the last 2-3 weeks. She is not on ASA or blood thinners. Platelets are 101. No trauma. No active bleeding. Hgb = 13.3 upon admission and only with slight drop to 12.6 on day of discharge -Observation to medical floor with telemetry-there were no significant events other than normal sinus rhythm with rates in the 60s to 70s -Monitor for recurrent epistaxis -she had none -Consider ENT consultation or outpatient followup should problem persist (2) Syncope: Patient with syncopal event following episode of epistaxis. Syncope occurred after patient stood up from a sitting position but also after witnessing large amount of blood come from her nose. She is HD stable. H/H r emained stable. Suspect vasovagal syncope-. EKG is unremarkable. Troponin is detectable at 0.022 but within normal range and remained stable on repeat testing at 0.03. -Telemetry monitoring revealed no arrhythmias No echocardiogram was deemed necessary She had no recurrence of symptoms after admission (3) 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: Overall compensated with slight worsening of Tbili from baseline. -Avoid hepatotoxic agents -Check ammonia - daughter reports forgetfulness, imbalance - ?developing hepatic encephalopathy-her ammonia level was elevated at 72 and she was started on lactulose, improved to 27 and mental status was clear LFTs were minimally elevated and similar to previous With leukopenia and mild thrombocytopenia as well as mildly elevated INR 1.2 also likely secondary to liver dysfunction -Patient with varices noted on CT - no history of variceal bleed. Will initiate Propranolol 10mg po BID for primary prevention -She is to establish care with Cirrhosis clinic at [facility] soon (4) Diabetes mellitus, type 2: Chronic. On home Dulaglutide -ISS -Goal blood sugars 100 - 140 (5) Hypothyroidism: Chronic -Continue Synthroid 112 mcg daily TSH normal at 0.88 (6) Hypercalcemia: Chronic -COntinue Sensipar (7) GERD (gastroesophageal reflux disease): Chronic -Continue Protonix 40mg daily (8) Hyperlipidemia: Chronic -Continue Crestor 20mg po qHS (9) Hypertension: Patient was previously on blood pressure medication which was discontinued. States her BP has been high since stopping her medications. Was elevated in the 160s systolic -Propranolol 10mg po BID for some BP control as well as varices -Continue to monitor as an outpatient (10) Anxiety and depression: Chronic -Ativan 1mg po TID PRN per home dosing -Continue Paxil 20mg po daily Ppx - SCDs Code - DNR/DNI per discussion with patient Dispo -stable for discharged home Total Time Total Time Spent Total Time Spent (In Minutes): 35 minutes Discharge Plan Discharge Items Patient Disposition: Home - Self-Care Reason For Visit: SYNCOPE, EPISTAXIS Discharge Diagnosis: Syncope, epistaxis Condition on Discharge: Good Activity: Resume your previous activity Non-emergency contact: Primary Care Provider and Shift Production Associate Call non-emergency contact if: you have any medication questions and your symptoms worsen Follow-up/Referrals: Reza Cid MD [Primary Care Provider] - (Please follow up within 1-2 weeks after discharge) Beatrice Lewis MD [Physician] - (Please call to schedule an appointment for your frequent nose bleeds and ear pain, dizziness.) Diet: Carb Consistent or DM2 and Low Sodium (2gm) Addtl Attending Provider Instructions: You were admitted after passing out with having a nose bleed. This may have been secondary to vasovagal syncope from your nose bleed. You had a normal workup of your heart and had no further episodes of passing out. Your blood count remained normal. Please schedule and appointment with an ENT specialist for your frequent nosebleeds and ear pressure, dizziness. Keep your appointment for tomorrow for your MRA of the head. You can use Afrin at home as needed for nosebleeds. Please refrain from blowing your nose to prevent future bleeds. Your ammonia levels were high and this is from your cirrhosis. Please continue taking the lactulose to aim for a goal of having 2-3 bowel movements daily. You were also started on propranolol for your blood pressure and for your liver issues. Pending Studies at Discharge: No Stand-Alone Forms: My [facility] [employer], Smoking Cessation Medications and DC Order Prescriptions: New propranolol 10 mg Tablet 10 mg PO BID Qty: 60 RF: 0 potassium chloride [Klor-Con M20] 20 mEq Tablet,Er Particles/Crystals 20 meq PO BID Qty: 60 RF: 0 lactulose 20 gram/30 mL Solution 30 ml PO BID 30 Days Qty: 1800 RF: 0 Continued cinacalcet 30 mg tablet 30 mg PO DAILY Qty: 90 RF: 3 One-A-Day Women's Active 18 mg iron- 400 mcg-180 mg tablet 1 tab PO QAM RF: 0 cyanocobalamin (vitamin B-12) 5,000 mcg capsule 5,000 mcg PO DAILY RF: 0 dicyclomine 20 mg tablet 20 mg PO QID PRN (Reason: Abdominal Discomfort) RF: 0 levothyroxine 112 mcg tablet 112 mcg PO DAILY Qty: 30 RF: 5 Trulicity 1.5 mg/0.5 mL pen injector 1.5 mg subcut ONCE 90 Days Qty: 45 RF: 3 ferrous sulfate [FeroSul] 325 mg (65 mg iron) tablet 325 mg PO BID RF: 0 cholecalciferol (vitamin D3) 25 mcg (1,000 unit) capsule 1,000 unit PO DAILY Qty: 30 RF: 0 omeprazole 40 mg capsule,delayed release(DR/EC) 40 mg PO QDL RF: 0 rosuvastatin [Crestor] 20 mg tablet 20 mg PO HS RF: 0 paroxetine HCl 20 mg tablet 20 mg PO QAM RF: 0 ascorbic acid (vitamin C) [Vitamin C] 500 mg Tablet 500 mg PO DAILY RF: 0 lorazepam 1 mg tablet 1 mg PO TID PRN (Reason: Anxiety) RF: 0 Discontinued potassium chloride 20 mEq tablet extended release 20 meq PO QAM RF: 0 Discharge Orders: Discharge Order (Routine); Ordered 09/23/20 Ordered By: Kristel Montiel Admission Data Admit Date/Time: 09/21/20 20:38 Attending Provider: Kristel Montiel Admit Provider: Nadya Mustafa Primary Care Provider: Reza Cid Other Interventions: Discharge Summary Assessment (RN) Last Done: 09/23/20 17:25 Coding Level of Care Code 47881 OBS Care - Discharge Diagnoses Epistaxis R04.0 Syncope R55 Syncope type: unspecified 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 Diabetes mellitus, type 2 E11.9; Z79.4 Diabetes mellitus complication status: without complication Diabetes mellitus group home insulin use: with group home use Hypothyroidism E03.9 Hypothyroidism type: unspecified Hypercalcemia E83.52 GERD (gastroesophageal reflux disease) K21.9 Esophagitis presence: esophagitis presence not specified Hyperlipidemia E78.5 Hyperlipidemia type: unspecified Hypertension I10 Hypertension type: primary hypertension Anxiety and depression F41.9; F32.9
== END 2020-09-23 18:20 | disposition home or self-care (01) ==
LOC: 2W 17:57 → ED 17:57 → SUATTDRO 20:38 → 2W 22:02
DX: Z82.49 Family history of ischemic heart disease and other diseases of the circulatory system; E78.5 Hyperlipidemia, unspecified; Z88.1 Allergy status to other antibiotic agents; E11.9 Type 2 diabetes mellitus without complications; Z83.3 Family history of diabetes mellitus; R55 Syncope and collapse; K21.9 Gastro-esophageal reflux disease without esophagitis; E03.9 Hypothyroidism, unspecified; I10 Essential (primary) hypertension; Z91.030 Bee allergy status; K75.81 Nonalcoholic steatohepatitis (NASH); K22.70 Barrett's esophagus without dysplasia; K44.9 Diaphragmatic hernia without obstruction or gangrene; R04.0 Epistaxis; Z20.822 Contact with and (suspected) exposure to COVID-19; Z79.899 Other long term (current) drug therapy; Z88.7 Allergy status to serum and vaccine

== ENCOUNTER 2021-03-12 08:16 | Inpatient (IN) ==
[2021-03-12] MEDS ORDERED: SODIUM CHLORIDE 0.9% 1000ML 1,000 ML IV STA (08:47)
[2021-03-12] MEDS ORDERED: ONDANSETRON INJ 2 MG/ML 2 ML VIAL IV STA (08:47)
[2021-03-12 09:12] LABS: Basophils # (auto) 0.01 K/uL (0-0.2); Basophils % (auto) 0.2 %; Eosinophils # (auto) 0.19 K/uL (0-0.5); Hematocrit (blood only) 37.4 % (37-47); Hemoglobin 12.7 g/dL (12.0-16.0); Immature Granulocytes # (auto) 0.01 K/uL (0.00-0.02); Immature Granulocytes % (auto) 0.2 %; Lymphocytes # (auto) 1.66 K/uL (1.2-3.4); Lymphocytes % (auto) 26.1 %; Mean Corpuscular Hemoglobin 31.8 pg (25-34); Mean Corpuscular Volume 93.7 fL (80-100); Mean Platelet Volume 9.3 fL (7.4-10.4); Monocytes # (auto) 0.98 K/uL (0.11-0.59); Monocytes % (auto) 15.4 %; Neutrophils % (auto) 55.1 %; Platelet Count 107 K/uL (130-400); RDW Coefficient of Variation 14.4 % (11.5-14.5); RDW Standard Deviation 48.8 fL (36.4-46.3); Red Blood Count 3.99 M/uL (4.2-5.4); White Blood Count 6.35 K/uL (4.8-10.8)
[2021-03-12] MEDS ORDERED: MoRPHine SULFATE 4 MG/ML 1 ML CARP\\VIAL IV STA ×2 (09:15→11:22)
[2021-03-12 09:48] LABS: Alanine Aminotransferase 38 (12-78); Albumin Globulin Ratio 0.9 (0.9-2); Albumin Level 3.2 gm/dl (3.4-5.0); Alkaline Phosphatase 200 U/L (45-117); Aspartate Aminotransferase 46 U/L (15-37); BUN Creatinine Ratio 11.8 (10-20); Bilirubin,Total 2.9 mg/dl (0.2-1); Blood Urea Nitrogen 14 mg/dl (7-18); Carbon Dioxide 25 mmol/L (21-32); Chloride 105 mmol/L (98-107); Creatinine Clr Calc Pharmacy 44.3 ml/min; Est GFR (African American) 55.3 ml/min; Est GFR (Non-African American) 47.7 ml/min; Globulin 3.4 gm/dl (2.5-4.0); Glucose 350 mg/dl (70-99); Lipase 369 U/L (73-393); Potassium 4.4 mmol/L (3.5-5.1); Sodium 133 mmol/L (136-145); Total Protein 6.6 gm/dl (6.4-8.2); Troponin I < 0.015 ng/ml (0-0.045)
--- NOTE | 2021-03-12 09:49 | Emergency Department Note ---
Impression & Plan Diverticulitis of sigmoid colon, Liver cirrhosis secondary to DAILY, Diabetes mellitus, type 2, Abdominal pain, LLQ, Nausea ED Provider Note Provider: Michael Lopez MD DATE OF SERVICE: 03/12/2021 CHIEF COMPLAINT: Left lower quadrant abdominal pain, diarrhea HISTORY OF PRESENT ILLNESS: Patient is a 65-year-old female history of hyperparathyroidism, BPPV, will Daily of the liver, type 2 diabetes, and history of diverticulitis presenting here today complaining of onset yesterday and worsening overnight of intermittent left lower quadrant pain with some radiation throughout the abdomen afterwards. Patient denies any trauma. Reports some mucousy stools/diarrhea. Reports nausea and vomiting. Reports some chills but denies fever. Denies significant shortness of breath. Denies sick contacts or recent questionable ingestion. Patient has been on antibiotics in the recent near past for sinus issues. Patient denies a history of C. difficile colitis to her knowledge. Patient states the pain is always there but worsens at times particular in the left lower quadrant where she has some tenderness. Denies any urinary symptoms. Denies any blood in the stool. Patient states he has a long history of GI issues in the past. Reports a history of hysterectomy and cholecystectomy. REVIEW OF SYSTEMS: A total of 10 review of systems was obtained and negative except as stated above in the HPI. PAST MEDICAL HISTORY: As noted above MEDICATIONS: Reviewed home medications SOCIAL HISTORY: , retired PHYSICAL EXAM: GENERAL: alert and oriented in no acute distress on stretcher fatigued appearing Head: normocephalic and atraumatic EYES: No injection, discharge or icterus. PERRL, EOMI. NECK: Trachea midline. LUNGS: Airway patent. No retractions. Breath sounds clear HEART: Regular rate and rhythm. No chest wall tenderness ABDOMEN: Soft significant left lower quadrant tenderness. No right-sided abdominal tenderness. SKIN: Acyanotic, warm, dry, without rashes EXTREMITIES: Without swelling, tenderness or deformity NEUROLOGICAL: No focal deficits. No aphasia. No facial droop or slurred speech. EK bpm normal sinus rhythm. No PVC or PAC. No acute ST segment elevation or depression. QTC 430. CONTINUOUS CARDIAC MONITORING: was ordered and showed a heart rate of 70s-90s bpm in normal sinus rhythm PDMP was checked without noted issue. Patient's laboratory studies and imaging reviewed. Differential includes Appendicitis, infections, diverticulitis, UTI, obstruction, mesenteric ischemia, aortic pathology, inflammatory bowel disease, renal colic, PUD, pancreatitis, biliary pathology, hernia, volvulus, constipation, as well as other pathologies. IMPRESSION/MEDICAL DECISION MAKING: Patient presents with left lower quadrant abdominal pain and some nausea and chills. Patient is a history of GI issues. Tender on exam. CT scan completed evidence of acute sigmoid diverticulitis. No evidence of abscess or perforation per the radiology report. Basic blood work without significant leukocytosis or signs of acute hepatitis or pancreatitis. Liver enzymes actually trending improved compared to priors. Patient given some morphine for pain. Covered broadly with Zosyn. Doubt sepsis. Discussed possibly trial of therapy at home with the patient's in significant pain required another dose of morphine. She states that her pain is uncontrolled. Given this discussed with the hospitalist further care here in observation. DIAGNOSIS: Sigmoid diverticulitis, left lower quadrant pain, nausea DISPOSITION: Hospitalist will evaluate Patient was agreeable with this plan. 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 Surgical History H/O thumb surgery RT/LEFT JOINT REPAIR H/O total hysterectomy History of appendectomy History of arthroscopy of knee Left Knee - meniscus/cartilage History of colonoscopy History of cystoscopy History of esophagogastroduodenoscopy (EGD) History of tonsillectomy and adenoidectomy History of tooth extraction Hx of cholecystectomy Family History Brother Coronary heart disease Heart disease Mother Family history of diabetes mellitus Hypertension Heart disease Sister Family history of diabetes mellitus Son Family history of diabetes mellitus Father Family hx of colon cancer Hearing loss Hypertension Cancer Heart disease Grandfather (Maternal) Family hx of colon cancer Other No family history of adverse response to anesthesia No family history of bleeding disorder Social History Smoking Status: Former smoker Second Hand Exposure: No; Hx Alcohol Use: No Hx Substance Use: No Preferred Language: Setswana Communication Ability: Effective Retail Leader Required: No Beliefs That Will Affect Care: None marital status: Current Living Situation: Spouse Current Living Situation Comment: and sister current occupational status: employed and retired Feels Safe at Home: Yes Safety Concerns: Feels Safe At This Time Assistive Devices: Glasses Allergies Allergies Allergy/AdvReac Type Severity Reaction Status Date / Time bee venom protein (honey bee) Allergy Severe Anaphylaxis Verified 03/12/21 11:08 Influenza Virus Vaccines Allergy Severe Anaphylaxis Verified 03/12/21 11:08 tetracycline AdvReac Severe Severe Verified 03/12/21 11:08 stomach pains Home Meds Home Medications Medication Instructions Recorded Confirmed omeprazole 40 mg capsule,delayed 40 mg PO QDL 08/03/18 03/12/21 release paroxetine HCl 20 mg tablet 20 mg PO QAM 04/17/19 03/12/21 multivit,Ca,akm-gpsr-IB-guarana-caff 1 tab PO HS 11/30/19 03/12/21 18 mg iron-400 mcg-180 mg tablet (One-A-Day Women's Active) rosuvastatin 20 mg tablet (Crestor) 20 mg PO HS tab 12/28/19 03/12/21 ascorbic acid (vitamin C) 500 mg 500 mg PO HS 07/19/20 03/12/21 tablet (Vitamin C) blood sugar diagnostic (OneTouch 11/12/20 01/13/21 Verio test strips) cholecalciferol (vitamin D3) 25 1,000 unit PO QAM 03/12/21 03/12/21 mcg (1,000 unit) capsule dulaglutide 1.5 mg/0.5 mL 1.5 mg SUBCUT WK 03/12/21 03/12/21 subcutaneous pen injector (Trulicity) lactulose 10 gram/15 mL oral 45 ml PO DAILY PRN 03/12/21 03/12/21 solution levothyroxine 112 mcg tablet 112 mcg PO DAILYBB 03/12/21 03/12/21 potassium bicarbonate-citric acid 20 meq PO TID 03/12/21 03/12/21 20 mEq effervescent tablet (Effer-K) propranolol 20 mg tablet 20 mg PO BID 03/12/21 03/12/21 valacyclovir 1 gram tablet 1 mg PO BID 03/12/21 03/12/21 zolpidem 5 mg tablet 5 mg PO HS 03/12/21 03/12/21 Previous Rx's Medication Instructions Recorded potassium chloride 20 mEq 20 meq PO BID #60 tab 09/23/20 tablet,extended release(part/cryst) (Klor-Con M) Results & Data (ED) Vital Signs Vital Signs - 24 hr 03/12/21 08:18 03/12/21 08:35 03/12/21 09:00 Temperature 37.1 C Temperature Source Temporal Artery Scan Pulse Rate 81 82 79 Pulse Rate from SpO2 Sensor 83 79 Respiratory Rate 18 17 15 Blood Pressure 156/73 H Blood Pressure Mean 100 Blood Pressure Position Sitting Pulse Oximetry 96 97 97 Oxygen Delivery Method Room Air Room Air Room Air Sepsis Recent Fever Within 48 Hours No Sepsis New/Unexplained Change in Mental Status No Sepsis Action Taken by Nursing No Action Required 03/12/21 09:30 03/12/21 10:03 03/12/21 10:09 Temperature Temperature Source Pulse Rate 80 87 Pulse Rate from SpO2 Sensor 77 Respiratory Rate 18 Blood Pressure 160/75 H Blood Pressure Mean 103 Blood Pressure Position Pulse Oximetry 95 94 Oxygen Delivery Method Room Air Room Air Sepsis Recent Fever Within 48 Hours Sepsis New/Unexplained Change in Mental Status Sepsis Action Taken by Nursing 03/12/21 10:30 Temperature Temperature Source Pulse Rate 84 Pulse Rate from SpO2 Sensor 83 Respiratory Rate 15 Blood Pressure 158/69 H Blood Pressure Mean 98 Blood Pressure Position Pulse Oximetry 96 Oxygen Delivery Method Sepsis Recent Fever Within 48 Hours Sepsis New/Unexplained Change in Mental Status Sepsis Action Taken by Nursing Laboratory Data Result diagrams: 03/12/21 08:50 03/12/21 08:50 Lab Results 03/12/21 03/12/21 03/12/21 Range/Units 08:50 08:50 10:19 WBC 6.35 (4.8-10.8) K/uL RBC 3.99 L (4.2-5.4) M/uL Hgb 12.7 (12.0-16.0) g/dL Hct 37.4 (37-47) % MCV 93.7 (80-100) fL MCH 31.8 (25-34) pg MCHC 34.0 (32-36) g/dL RDW Std Deviation 48.8 H (36.4-46.3) fL RDW Coeff of Charlee 14.4 (11.5-14.5) % Plt Count 107 L (130-400) K/uL MPV 9.3 (7.4-10.4) fL Immature Gran % (Auto) 0.2 % Neut % (Auto) 55.1 % Lymph % (Auto) 26.1 % [place] % (Auto) 15.4 % Eos % (Auto) 3.0 % Baso % (Auto) 0.2 % Neut # (Auto) 3.50 (1.4-6.5) K/uL Lymph # (Auto) 1.66 (1.2-3.4) K/uL [place] # (Auto) 0.98 H (0.11-0.59) K/uL Eos # (Auto) 0.19 (0-0.5) K/uL Baso # (Auto) 0.01 (0-0.2) K/uL Immature Gran # (Auto) 0.01 (0.00-0.02) K/uL Sodium 133 L (136-145) mmol/L Potassium 4.4 (3.5-5.1) mmol/L Chloride 105 (98-107) mmol/L Carbon Dioxide 25 (21-32) mmol/L Anion Gap 3.0 (3-11) BUN 14 (7-18) mg/dl Creatinine 1.18 (0.6-1.2) mg/dl Est Cr Clr Drug Dosing 44.3 ml/min Est GFR ( Amer) 55.3 ml/min Est GFR (Non-Af Amer) 47.7 ml/min BUN/Creatinine Ratio 11.8 (10-20) Glucose 350 H* (70-99) mg/dl Calcium 10.0 (8.5-10.1) mg/dl Total Bilirubin 2.9 H (0.2-1) mg/dl AST 46 H (15-37) U/L ALT 38 (12-78) Alkaline Phosphatase 200 H D (45-117) U/L Troponin I < 0.015 (0-0.045) ng/ml Total Protein 6.6 (6.4-8.2) gm/dl Albumin 3.2 L (3.4-5.0) gm/dl Globulin 3.4 (2.5-4.0) gm/dl Albumin/Globulin Ratio 0.9 (0.9-2) Lipase 369 (73-393) U/L Beta-Hydroxybutyric Acd 0.93 (0.2-2.81) mg/dl Urine Color Yellow Urine Appearance Clear (Clear) Urine pH 6.0 (4.5-7.5) Ur Specific [place] 1.018 (1.000-1.030) Urine Protein Negative (Negative) Urine Glucose (UA) 3+ H (Negative) Urine Ketones Negative (Negative) Urine Blood Negative (Negative) Urine Nitrite Negative (Negative) Urine Bilirubin Negative (Negative) Urine Urobilinogen Negative (Negative) Ur Leukocyte Esterase Negative (Negative) Administered Medications Morphine Sulfate (Morphine Sulfate 4 Mg/Ml 1 Ml Carp\Vial) 4 mg IV Q4H PRN PRN Reason: Severe Pain (7,8,9,10) on NRS Stop: 03/26/21 13:57 Last Admin: 03/12/21 15:08 Dose: 4 mg Documented by: [id number] Discontinued Medications Sodium Chloride (Nss 1000ml) 1,000 mls @ 999 mls/hr IV .Q1H1M STA Stop: 03/12/21 09:47 Last Infusion: 03/12/21 10:39 Dose: 0 mls/hr Documented by: [id number] Admin: 03/12/21 09:14 Dose: 999 mls/hr Documented by: [id number] Piperacillin Sod/Tazobactam Sod (Zosyn) 4.5 gm in 120 mls @ 240 mls/hr IV NOW ONE Stop: 03/12/21 11:51 Last Infusion: 03/12/21 12:20 Dose: 0 mls/hr Documented by: [id number] Admin: 03/12/21 11:35 Dose: 240 mls/hr Documented by: [id number] Ioversol (Optiray 320 100ml) 96 ml IV ONCE ONE Stop: 03/12/21 10:05 Last Admin: 03/12/21 10:04 Dose: 96 ml Documented by: [id number] Morphine Sulfate (Morphine Sulfate 4 Mg/Ml 1 Ml Carp\Vial) 4 mg IV NOW STA Stop: 03/12/21 09:16 Last Admin: 03/12/21 09:27 Dose: 4 mg Documented by: [id number] Morphine Sulfate (Morphine Sulfate 4 Mg/Ml 1 Ml Carp\Vial) 4 mg IV NOW STA Stop: 03/12/21 11:23 Last Admin: 03/12/21 11:35 Dose: 4 mg Documented by: [id number] Ondansetron HCl (Ondansetron Inj 2 Mg/Ml 2 Ml Vial) 4 mg IV NOW STA Stop: 03/12/21 08:48 Last Admin: 03/12/21 09:14 Dose: 4 mg Documented by: [id number] Imaging Data Radiologist's Impression: Abdomen/Pelvis CT 03/12/21 09:14 CT SCAN OF THE ABDOMEN AND PELVIS WITH IV CONTRAST CLINICAL HISTORY: Left lower quadrant abdominal pain. Diarrhea. COMPARISON STUDY: Abdominal CT dated 05/31/2020. TECHNIQUE: Following the IV administration of 96 cc of Optiray 320, CT scan of the abdomen and pelvis is performed from the lung bases to the proximal femora. Images are reviewed in the axial, sagittal, and coronal planes. IV contrast was administered without complication. A dose lowering technique was utilized adhering to the principles of ALARA. CT DOSE: 454.02 mGy.cm FINDINGS: Lung bases: The heart is enlarged and without pericardial effusion. The lung bases are clear. There is a small hiatal hernia. Esophageal varices are noted. Liver: The contrast-enhanced liver is enlarged, measuring 18.9 cm in length. The liver is cirrhotic in morphology and heterogeneous in attenuation. There is n odularity of the hepatic surface contour. There is mild intrahepatic biliary ductal dilatation. The hepatic veins and portal veins are patent. There are perigastric varices and recanalization of the periumbilical vein. Gallbladder: Surgically absent noting clips in the gallbladder fossa. Spleen: The spleen is enlarged, measuring 18 cm in length. Pancreas: Unremarkable. Adrenal glands: Unremarkable. Kidneys: The contrast enhanced kidneys are normal in size and without hydronephrosis. The kidneys enhance symmetrically. Abdominal vasculature: The abdominal aorta is normal in course and caliber noting mild to moderate atherosclerotic calcification. Bowel: There is moderate to advanced colonic diverticulosis. There is wall thickening with pericolonic inflammation and fluid involving the sigmoid colon consistent with acute diverticulitis. No organized fluid collection is seen to suggest abscess. There is no bowel obstruction. A large duodenal diverticulum is noted. The appendix is prominent measuring up to 9 mm in diameter but otherwise normal in appearance with no wall thickening or surrounding inflammation. Peritoneum: There is no intraperitoneal free air or abdominal ascites. Lymphadenopathy: There are shotty retroperitoneal lymph nodes. These are not pathologically enlarged by size criteria and similar to previous. Pelvic viscera: The bladder is mildly distended but otherwise normal in appearance. The uterus is surgically absent. No adnexal lesion is seen. Skeletal structures: The skeletal structures are osteopenic. No lytic or blastic lesions are seen. IMPRESSION: 1. Findings are consistent with acute sigmoid diverticulitis. 2. No intraperitoneal free air is identified and there is no organized fluid collection to suggest abscess. 3. The liver is cirrhotic in morphology and heterogeneous in attenuation. 4. Marked splenomegaly, esophageal varices, and upper abdominal collaterals indicate portal hypertension. 5. Cardiomegaly. 6. The appendix is prominent measuring up to 9 mm in diameter. There is no associated wall thickening or surrounding inflammation and this is similar to previous. 7. Shotty retroperitoneal lymph nodes are nonspecific and unchanged. 8. Additional findings as above. ACT 112: Negative or not required by law. Electronically signed by: Parveen Candelaria M.D. 03/12/2021 10:30 AM Discharge Plan Visit Data Chief Complaint: Abdominal Pain Stated Complaint: ABDOMINAL PAIN ED Provider: Michael Lopez Discharge Problem: Diverticulitis of sigmoid colon, Liver cirrhosis secondary to DAILY, Diabetes mellitus, type 2, Abdominal pain, LLQ, Nausea Patient Disposition: Being Evaluated by Hospitalist Discharge Instructions Interventions: ED Discharge Assessment Last Done: 03/12/21 13:59
[2021-03-12 09:59] LABS: Beta-Hydroxybutyrate 0.93 mg/dl (0.2-2.81)
[2021-03-12] MEDS ORDERED: OPTIRAY 320 100ml IV ONE (10:04)
[2021-03-12 10:31] LABS: Appearance Urine Clear (Clear); Bilirubin Urine Negative (Negative); Blood Urine Negative (Negative); Color Urine Yellow; Glucose Urine UA 3+ (Negative); Ketones Urine Negative (Negative); Leukocyte Esterase Urine Negative (Negative); Nitrite Urine Negative (Negative); Protein Urine Negative (Negative); Specific Gravity Urine 1.018 (1.000-1.030); Urobilinogen Urine Negative (Negative)
--- NOTE | 2021-03-12 10:31 | CT Scan Report ---
CT SCAN OF THE ABDOMEN AND PELVIS WITH IV CONTRAST CLINICAL HISTORY: Left lower quadrant abdominal pain. Diarrhea. COMPARISON STUDY: Abdominal CT dated 05/31/2020. TECHNIQUE: Following the IV administration of 96 cc of Optiray 320, CT scan of the abdomen and pelvi s is performed from the lung bases to the proximal femora. Images are reviewed in the axial, sagittal , and coronal planes. IV contrast was administered without complication. A dose lowering technique wa s utilized adhering to the principles of ALARA. CT DOSE: 454.02 mGy.cm FINDINGS: Lung bases: The heart is enlarged and without pericardial effusion. The lung bases are clear. There i s a small hiatal hernia. Esophageal varices are noted. Liver: The contrast-enhanced liver is enlarged, measuring 18.9 cm in length. The liver is cirrhotic i n morphology and heterogeneous in attenuation. There is nodularity of the hepatic surface contour. Th ere is mild intrahepatic biliary ductal dilatation. The hepatic veins and portal veins are patent. Th ere are perigastric varices and recanalization of the periumbilical vein. Gallbladder: Surgically absent noting clips in the gallbladder fossa. Spleen: The spleen is enlarged, measuring 18 cm in length. Pancreas: Unremarkable. Adrenal glands: Unremarkable. Kidneys: The contrast enhanced kidneys are normal in size and without hydronephrosis. The kidneys enh ance symmetrically. Abdominal vasculature: The abdominal aorta is normal in course and caliber noting mild to moderate at herosclerotic calcification. Bowel: There is moderate to advanced colonic diverticulosis. There is wall thickening with pericoloni c inflammation and fluid involving the sigmoid colon consistent with acute diverticulitis. No organiz ed fluid collection is seen to suggest abscess. There is no bowel obstruction. A large duodenal diver ticulum is noted. The appendix is prominent measuring up to 9 mm in diameter but otherwise normal in appearance with no wall thickening or surrounding inflammation. Peritoneum: There is no intraperitoneal free air or abdominal ascites. Lymphadenopathy: There are shotty retroperitoneal lymph nodes. These are not pathologically enlarged by size criteria and similar to previous. Pelvic viscera: The bladder is mildly distended but otherwise normal in appearance. The uterus is khloe gically absent. No adnexal lesion is seen. Skeletal structures: The skeletal structures are osteopenic. No lytic or blastic lesions are seen. IMPRESSION: 1. Findings are consistent with acute sigmoid diverticulitis. 2. No intraperitoneal free air is identified and there is no organized fluid collection to suggest ab scess. 3. The liver is cirrhotic in morphology and heterogeneous in attenuation. 4. Marked splenomegaly, esophageal varices, and upper abdominal collaterals indicate portal hypertens ion. 5. Cardiomegaly. 6. The appendix is prominent measuring up to 9 mm in diameter. There is no associated wall thickening or surrounding inflammation and this is similar to previous. 7. Shotty retroperitoneal lymph nodes are nonspecific and unchanged. 8. Additional findings as above. ACT 112: Negative or not required by law. Electronically signed by: Parveen Candelaria M.D. 03/12/2021 10:30 AM
[2021-03-12] MEDS ORDERED: PIPERACILL/TAZOBAC CONSULT ACTIVE PRN (11:22)
[2021-03-12] MEDS ORDERED: PIPERACILLIN/TAZOBACTAM 4.5 GM/120 ML BAG IV ONE (11:22)
--- NOTE | 2021-03-12 11:23 | Electrocardiogram Report ---
Test Reason : Blood Pressure : / mmHG Vent. Rate : 078 BPM Atrial Rate : 078 BPM P-R Int : 144 ms QRS Dur : 076 ms QT Int : 378 ms P-R-T Axes : 046 004 025 degrees QTc Int : 430 ms Normal sinus rhythm Normal ECG Confirmed by Wilton Overton ([id number]) on 03/12/2021 11:23:44 AM Referred By: REFERRED SELF Confirmed By:Juan Francisco Overton
--- NOTE | 2021-03-12 12:13 | History & Physical Report ---
Date of Service March 12, 2021 Assessment & Plan (1) Diverticulitis: Plan: Acute Diverticulitis No leukocytosis -CTA/P: Acute sigmoid diverticulitis. No free air, no evidence of abscess. Liver cirrhotic morphology consistent with DAILY. Splenomegaly appreciated, evidence of portal hypertension present. Appendix similar appearance to prior. Nonspecific retroperitoneal lymph node shotty in appearance, unchanged from prior. Patient without signs of high risk/complication, however with inadequate oral analgesia requiring IV pain control Continue Zosyn, patient has been on Cipro/Flagyl and Augmentin for outpatient treatment in the past Clears, advance as tolerated Tylenol, scaled IV morphine for breakthrough analgesia Troponin negative, new murmur per pt TTE pending. UA negative Covid neg (2) Diabetes mellitus, type 2: Plan: Type 2 diabetes mellitus Admitting glucose 350 Glucose checks AC/at bedtime Patient on Trulicity weekly at home BSG goal [id number] SSI correction factor 55, ratio 20 (3) Anxiety and depression: Plan: Anxiety/depression Continue home paroxetine 20 mg p.o. daily (4) GERD (gastroesophageal reflux disease): Plan: GERD Protonix 40 mg daily (5) Hyperlipidemia: Plan: Hyperlipidemia Atorvastatin 20 mg daily (6) Hypertension: Plan: Hypertension Monitoring Continue propranolol (7) Hypothyroidism: Plan: Hypothyroidism Continue Synthroid 112 mcg daily Last TSH check normal (8) Liver cirrhosis secondary to DAILY: Plan: Nonalcoholic steatohepatitis Glycemic management as above No acute exacerbation Avoid hepatotoxic agents No signs of encephalopathy on admission, defer ammonia check at this time Continue propranolol (9) Chest pain: Plan: Patient reported about 5 minutes of transient left-sided chest pain without associated shortness of breath or syncope which resolved prior to presentation to the hospital New systolic murmur on exam, not previously known to her Initial troponin negative, trended x3 total Troponin trended, TTE pending. Abx given prior to BC Follow on medical telemetry Plan: Diet: Clears, progress as tolerated DVT prophylaxis: SCDs, history of bleeds/anemia and varices CODE STATUS: DNR/DNI discussed with pt Disposition: Medical surgical History of Present Illness Chief Complaint: Abdominal Pain Primary Care Provider: Reza Cid MD Patient is a 65-year-old female the past medical history of vertigo, hyperparathyroidism, nonalcoholic steatohepatitis, type 2 diabetes, and diverticulitis who presented with 1 day of worsening left lower quadrant pain with radiation. Was recently on antibiotics for sinusitis, no prior history of C. difficile. Patient endorses approximately 1 maybe 2 days of left lower quadrant abdominal pain consistent with her prior episode of diverticulitis. She endorses nausea, nonbilious/nonbloody emesis, and diarrhea. Food worsens her pain, and she has been taking some fluids but minimal nutrition and does not have much of an appetite. Endorses feelings of fever, chills in the last day. Had one episode of left-sided chest discomfort which passed after approximately 5 minutes, no associated shortness of breath or dyspnea. No leg swelling. Has a history of Daily, which she reports has been stable without exacerbation. Denies other symptoms. Allergic to tetracycline, has been treated with multiple medications including Augmentin and Cipro/Flagyl in the past. She feels her pain is somewhat improved with IV pain control, but still around 6/10 and worsened in the left quadrant with palpation at time of assessment. Medical History: Reviewed Medications: Reviewed Surgical History: Reviewed Allergies: Reviewed Social History: No alcohol use. No tobacco use. No recreational drug use. Code Status: Surrogate decision maker Gus Dee. DNR/DNI. Allergies Allergy/AdvReac Type Severity Reaction Status Date / Time bee venom protein (honey bee) Allergy Severe Anaphylaxis Verified 03/12/21 11:08 Influenza Virus Vaccines Allergy Severe Anaphylaxis Verified 03/12/21 11:08 tetracycline AdvReac Severe Severe Verified 03/12/21 11:08 stomach pains Home Medications Medication Instructions Recorded Confirmed Type omeprazole 40 mg capsule,delayed 40 mg PO QDL 08/03/18 03/12/21 History release paroxetine HCl 20 mg tablet 20 mg PO QAM 04/17/19 03/12/21 History multivit,Ca,pqc-kgvb-ZP-guarana-caff 1 tab PO HS 11/30/19 03/12/21 History 18 mg iron-400 mcg-180 mg tablet (One-A-Day Women's Active) rosuvastatin 20 mg tablet (Crestor) 20 mg PO HS tab 12/28/19 03/12/21 History ascorbic acid (vitamin C) 500 mg 500 mg PO HS 07/19/20 03/12/21 History tablet (Vitamin C) potassium chloride 20 mEq 20 meq PO BID #60 tab 09/23/20 03/12/21 Rx tablet,extended release(part/cryst) (Klor-Con M) blood sugar diagnostic (OneTouch 11/12/20 01/13/21 History Verio test strips) cholecalciferol (vitamin D3) 25 1,000 unit PO QAM 03/12/21 03/12/21 History mcg (1,000 unit) capsule dulaglutide 1.5 mg/0.5 mL 1.5 mg SUBCUT WK 03/12/21 03/12/21 History subcutaneous pen injector (Trulicity) lactulose 10 gram/15 mL oral 45 ml PO DAILY PRN 03/12/21 03/12/21 History solution levothyroxine 112 mcg tablet 112 mcg PO DAILYBB 03/12/21 03/12/21 History potassium bicarbonate-citric acid 20 meq PO TID 03/12/21 03/12/21 History 20 mEq effervescent tablet (Effer-K) propranolol 20 mg tablet 20 mg PO BID 03/12/21 03/12/21 History valacyclovir 1 gram tablet 1 mg PO BID 03/12/21 03/12/21 History zolpidem 5 mg tablet 5 mg PO HS 03/12/21 03/12/21 History Past Med/Surg History Medical History Anemia Anxiety and depression Arthritis Moeller's esophagus with esophagitis Colitis Diabetes mellitus, type 2 Diverticulosis GERD (gastroesophageal reflux disease) GI bleed RECENT HOSPITALIZED Heel spur B/L feet Hiatal hernia History of kidney stones Hyperlipidemia Hypertension NO CURRENT MEDS Hypothyroidism Liver cirrhosis secondary to DAILY Nephrolithiasis RESOLVED Primary hyperparathyroidism Spleen enlarged Stucco keratoses Temporomandibular joint disorder 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 Surgical History H/O thumb surgery RT/LEFT JOINT REPAIR H/O total hysterectomy History of appendectomy History of arthroscopy of knee Left Knee - meniscus/cartilage History of colonoscopy History of cystoscopy History of esophagogastroduodenoscopy (EGD) History of tonsillectomy and adenoidectomy History of tooth extraction Hx of cholecystectomy Family History Brother Coronary heart disease Heart disease Mother Family history of diabetes mellitus Hypertension Heart disease Sister Family history of diabetes mellitus Son Family history of diabetes mellitus Father Family hx of colon cancer Hearing loss Hypertension Cancer Heart disease Grandfather (Maternal) Family hx of colon cancer Other No family history of adverse response to anesthesia No family history of bleeding disorder Social History Smoking Status: Former smoker Second Hand Exposure: No; Hx Alcohol Use: No Hx Substance Use: No Preferred Language: Wallisian Communication Ability: Effective Vegetable Canner Required: No Beliefs That Will Affect Care: None marital status: Current Living Situation: Spouse and Family Current Living Situation Comment: and sister current occupational status: employed and retired Feels Safe at Home: Yes Assistive Devices: None Review of Systems Review of Systems: All systems reviewed & are unremarkable except as noted in HPI & below Physical Exam Physical Exam: General: A&Ox3. NAD. Cooperative. HEENT: Atraumatic, normocephalic. Visual acuity and hearing grossly intact. Pulm: CTAB A&P. -wheezes, -rales, -rhonchi. Symmetrical chest rise. No increase work of breathing. No respiratory distress. Cardiac: RRR,+systolic murmur. Radial pulses intact and symmetrical. Abdominal: Lower quadrant tender to palpation, no rebound, no guarding, bowel sounds intact. Extremities: Moving all extremities equally. Plant Electrician strength in ankle d orsiflexion/plantar flexion 5/5 without asymmetry. Sensation to soft touch intact in hands and feet. Results & Data Results & Data ([facility]) Vital Signs (Past 12 Hours) Vital Signs Temp Pulse Resp BP Pulse Ox 03/12/21 10:30 84 15 158/69 H 96 03/12/21 10:09 87 03/12/21 10:03 94 03/12/21 09:30 80 18 160/75 H 95 03/12/21 09:00 79 15 97 03/12/21 08:35 82 17 97 03/12/21 08:18 37.1 C 81 18 156/73 H 96 PG Care Time/CCT Total # of Minutes Spent Total Time Spent with Patient: Total time spent is greater than 50% in coordination of care (as documented) at patient's floor/unit and/or counseling patient: Coding Level of Care Code INT OBSERVATION CARE 50M LVL 2 Diagnoses Diverticulitis K57.92 Diabetes mellitus, type 2 E11.9; Z79.4 Diabetes mellitus watermelon inspector insulin use: with watermelon inspector use Diabetes mellitus complication status: without complication Anxiety and depression F41.9; F32.9 GERD (gastroesophageal reflux disease) K21.9 Esophagitis presence: esophagitis presence not specified Hyperlipidemia E78.5 Hyperlipidemia type: unspecified Hypertension I10 Hypertension type: primary hypertension Hypothyroidism E03.9 Hypothyroidism type: unspecified Liver cirrhosis secondary to DAILY K75.81; K74.60 Chest pain R07.9 (1) Diabetes mellitus, type 2 Diabetes mellitus mcc insulin use: with watermelon inspector use Diabetes mellitus complication status: without complication Qualified Code(s): E11.9 - Type 2 diabetes mellitus without complications; Z79.4 - watermelon inspector (current) use of insulin (2) GERD (gastroesophageal reflux disease) Esophagitis presence: esophagitis presence not specified Qualified Code(s): K21.9 - Gastro-esophageal reflux disease without esophagitis (3) Hyperlipidemia Hyperlipidemia type: unspecified Qualified Code(s): E78.5 - Hyperlipidemia, unspecified (4) Hypertension Hypertension type: primary hypertension Qualified Code(s): I10 - Essential (primary) hypertension (5) Hypothyroidism Hypothyroidism type: unspecified Qualified Code(s): E03.9 - Hypothyroidism, unspecified
[2021-03-12] MEDS ORDERED: GLUCOSE 40% GEL 15 GM TUBE PO PRN (13:58)
[2021-03-12] MEDS ORDERED: CARBOHYDRATES FOR HYPOGLYCEMIA PO PRN (13:58)
[2021-03-12] MEDS ORDERED: MoRPHine SULFATE 2 MG/ML CARP IV PRN (13:58)
[2021-03-12] MEDS ORDERED: GLUCOSE 10 TABS/TUBE PO PRN (13:58)
[2021-03-12] MEDS ORDERED: DEXTROSE 50% 50 ML SYRINGE IV PRN (13:58)
[2021-03-12] MEDS ORDERED: ACETAMINOPHEN 325 MG TAB PO PRN (13:58)
[2021-03-12] MEDS ORDERED: GLUCAGON FOR INJ 1 MG VIAL SQ PRN (13:58)
[2021-03-12] MEDS ORDERED: LACTULOSE SYRUP 30 GM/45 ML UDP PO PRN (14:06)
[2021-03-12] MEDS: MoRPHine SULFATE 4 MG/ML 1 ML CARP\\VIAL IV PRN ×2 (15:08→21:58)
--- NOTE | 2021-03-12 16:42 | XCELERA ---
[id number] \\[id number]_[id number]
[2021-03-12] MEDS: INSULIN ASPART PER UNIT SC SCH ×2 (17:25→21:52)
[2021-03-12] MEDS: PIPERACILLIN/TAZOBACTAM 3.375 GM in DEXTROSE 5% 100 ML IV SCH (17:40)
[2021-03-12] MEDS ORDERED: valACYclovir HCL 500 MG TABLET PO SCH (21:00)
[2021-03-12] MEDS: ROSUVASTATIN CALCIUM 20 MG TAB PO SCH (21:47)
[2021-03-12] MEDS: POTASSIUM CHLORIDE CRTAB 20 MEQ TABCR PO SCH (21:47)
[2021-03-12] MEDS: PROPRANOLOL HCL 20 MG TAB PO SCH (21:48)
[2021-03-12] MEDS: valACYclovir HCL 500 MG TABLET PO SCH (22:19)
[2021-03-12] MEDS: ZOLPIDEM TARTRATE 5 MG TAB PO SCH (22:20)
[2021-03-13] MEDS: PIPERACILLIN/TAZOBACTAM 3.375 GM in DEXTROSE 5% 100 ML IV SCH ×3 (01:20→18:03)
[2021-03-13] MEDS: LEVOTHYROXINE SODIUM 112 MCG TABLET PO SCH (05:27)
[2021-03-13] MEDS: MoRPHine SULFATE 4 MG/ML 1 ML CARP\\VIAL IV PRN ×4 (05:29→18:41)
[2021-03-13 07:31] LABS: Estimated Average Glucose 183 mg/dl
[2021-03-13] MEDS: POTASSIUM CHLORIDE CRTAB 20 MEQ TABCR PO SCH ×2 (09:41→20:46)
[2021-03-13] MEDS: valACYclovir HCL 500 MG TABLET PO SCH ×2 (09:41→20:46)
[2021-03-13] MEDS: PARoxetine HCL 20 MG TAB PO SCH (09:41)
[2021-03-13] MEDS: PROPRANOLOL HCL 20 MG TAB PO SCH ×2 (09:42→20:47)
[2021-03-13] MEDS: INSULIN ASPART PER UNIT SC SCH ×4 (09:42→20:47)
[2021-03-13] MEDS: PANTOprazole 40 MG TAB PO SCH (11:43)
[2021-03-13] MEDS: ONDANSETRON INJ 2 MG/ML 2 ML VIAL IV PRN (14:29)
--- NOTE | 2021-03-13 17:38 | Hospitalist Progress Note ---
Date of Service March 13, 2021 Assessment & Plan (1) Diverticulitis: Plan: Acute Diverticulitis No leukocytosis -CTA/P: Acute sigmoid diverticulitis. No free air, no evidence of abscess. Liver cirrhotic morphology consistent with REBOLLAR. Splenomegaly appreciated, evidence of portal hypertension present. Appendix similar appearance to prior. Nonspecific retroperitoneal lymph node shotty in appearance, unchanged from prior. Patient without signs of high risk/complication, however with inadequate oral analgesia requiring IV pain control Continue IV antibiotics. Advance diet as tolerated. -revamp pain control (2) Diabetes mellitus, type 2: Plan: Type 2 diabetes mellitus sugars overall at/near goal - continue current and follow (3) Anxiety and depression: Plan: Anxiety/depression Continue home paroxetine 20 mg p.o. daily (4) GERD (gastroesophageal reflux disease): Plan: GERD Protonix 40 mg daily (5) Hyperlipidemia: Plan: Hyperlipidemia Atorvastatin 20 mg daily (6) Hypertension: Plan: BP reasonable given the situation Monitoring Continue propranolol (7) Hypothyroidism: Plan: Hypothyroidism Continue Synthroid 112 mcg daily Last TSH check normal (8) 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: Plan: Nonalcoholic steatohepatitis Glycemic management as above No acute exacerbation Avoid hepatotoxic agents No signs of encephalopathy on admission, defer ammonia check at this time Continue propranolol -suspect this explains her low plt (9) Chest pain: Plan: troponin negative, echo reassuring (and no pathology tied to murmur heard on admission - ?flow from low volume most likely) -suspect was radiation from abdomen; given risks for CAD can d/w PCP re ?outpt w/u vs monitoring - but no need for acute intervention at this time Plan: stable on med/surg, mechanical DVT proph initiated given cirrhosis/varices. anticipate home on PO abx once pain improves more Admission and Anticipated Discharge Date Admission Date: March 12, 2021 Subjective Ongoing painfairly significant. Mostly left sided abdomen, also some occasionally to the right. Chest pain was left lateral, and she believes it was more less of radiation up from her left-sided abdominal pain. It has gone for the most part, no shortness of breath. Review of Systems Review of Systems: All systems reviewed & are unremarkable except as noted in HPI & below Physical Exam Physical Exam: In general she is awake and alert pleasant no distress. HEENT normocephalic atraumatic mucous membranes moist. Breathing unlabored no accessory muscle use good effort. Skin shows no rashes no pallor or icterus. Abdomen is soft but she does have left lower quadrant tenderness with voluntary guarding no involuntary guarding/rebound/rigidity remainder of her abdomen is f airly benign. Extremities show no cyanosis. Neuro without focal deficits. Results & Data Results & Data ([facility]) Vital Signs (Past 12 Hours) Vital Signs Temp Pulse Resp BP Pulse Ox 03/13/21 13:28 98.7 F 77 14 131/62 97 03/13/21 07:53 98.5 F 80 15 143/56 H 95 PG Care Time/CCT Total # of Minutes Spent Total Time Spent with Patient: Total time spent is greater than 50% in coordination of care (as documented) at patient's floor/unit and/or counseling patient: Coding Level of Care Code 65120 Subseq Hosp Care Lvl 3 Diagnoses Diverticulitis K57.92 Diabetes mellitus, type 2 E11.9 Anxiety and depression F41.9; F32.9 GERD (gastroesophageal reflux disease) K21.9 Esophagitis presence: esophagitis presence not specified Hyperlipidemia E78.5 Hyperlipidemia type: unspecified Hypertension I10 Hypertension type: primary hypertension Hypothyroidism E03.9 Hypothyroidism type: unspecified 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 Chest pain R07.9 (1) Hyperlipidemia Hyperlipidemia type: unspecified Qualified Code(s): E78.5 - Hyperlipidemia, unspecified (2) Hypothyroidism Hypothyroidism type: unspecified Qualified Code(s): E03.9 - Hypothyroidism, unspecified (3) GERD (gastroesophageal reflux disease) Esophagitis presence: esophagitis presence not specified Qualified Code(s): K21.9 - Gastro-esophageal reflux disease without esophagitis (4) Hypertension Hypertension type: primary hypertension Qualified Code(s): I10 - Essential (primary) hypertension
--- NOTE | 2021-03-13 17:44 | Billing Data ---
Date of Service March 13, 2021 Coding Level of Care Code 35494 Subseq Obs Care Lvl 3 Comment disregard [id number] - entered in error
[2021-03-13] MEDS ORDERED: FLUCONAZOLE 50 MG TAB PO ONE (18:30)
[2021-03-13] MEDS: ROSUVASTATIN CALCIUM 20 MG TAB PO SCH (20:46)
[2021-03-13] MEDS: ZOLPIDEM TARTRATE 5 MG TAB PO SCH (20:46)
[2021-03-13] MEDS: KETOROLAC TROMETHAMINE 15 MG/ML VIAL IV PRN (20:52)
[2021-03-13] MEDS ORDERED: ACETAMINOPHEN 325 MG TAB PO SCH (21:00)
[2021-03-14] MEDS: MoRPHine SULFATE 4 MG/ML 1 ML CARP\\VIAL IV PRN ×4 (01:34→20:02)
[2021-03-14] MEDS: PIPERACILLIN/TAZOBACTAM 3.375 GM in DEXTROSE 5% 100 ML IV SCH ×3 (01:34→17:25)
[2021-03-14] MEDS: KETOROLAC TROMETHAMINE 15 MG/ML VIAL IV PRN (05:43)
[2021-03-14] MEDS: LEVOTHYROXINE SODIUM 112 MCG TABLET PO SCH (05:44)
[2021-03-14 08:19] LABS: Hematocrit (blood only) 35.4 % (37-47); Hemoglobin 11.9 g/dL (12.0-16.0); Mean Corpuscular Hemoglobin 31.9 pg (25-34); Mean Corpuscular Hgb Conc 33.6 g/dL (32-36); Mean Corpuscular Volume 94.9 fL (80-100); RDW Coefficient of Variation 14.8 % (11.5-14.5); RDW Standard Deviation 50.5 fL (36.4-46.3); Red Blood Count 3.73 M/uL (4.2-5.4); White Blood Count 3.11 K/uL (4.8-10.8)
[2021-03-14 08:53] LABS: BUN Creatinine Ratio 12.5 (10-20); Calcium 10.6 mg/dl (8.5-10.1); Est GFR (African American) 40.1 ml/min; Est GFR (Non-African American) 34.6 ml/min; Potassium 4.6 mmol/L (3.5-5.1)
[2021-03-14 09:08] LABS: Mean Platelet Volume 9.1 fL (7.4-10.4); Platelet Count 91 K/uL (130-400)
[2021-03-14 09:09] LABS: ANC (manual) 1.27 K/uL (1.4-6.5); Basophils # (manual) 0.03 K/uL (0-0.2); Basophils % (manual) 0.9 %; Eosinophils # (manual) 0.41 K/uL (0-0.5); Eosinophils % (manual) 13.3 %; Lymphocytes % (manual) 35.4 %; Monocytes % (manual) 9.7 %; Neutrophils # (manual) 1.27 K/uL (1.4-6.5); Neutrophils % (manual) 40.7 %; Platelet Estimate Decreased (Normal)
[2021-03-14] MEDS: INSULIN ASPART PER UNIT SC SCH ×4 (09:11→21:03)
[2021-03-14] MEDS: POTASSIUM CHLORIDE CRTAB 20 MEQ TABCR PO SCH ×2 (09:16→21:03)
[2021-03-14] MEDS: PARoxetine HCL 20 MG TAB PO SCH (09:16)
[2021-03-14] MEDS: PROPRANOLOL HCL 20 MG TAB PO SCH ×2 (09:16→20:57)
[2021-03-14] MEDS: valACYclovir HCL 500 MG TABLET PO SCH ×2 (09:16→20:57)
[2021-03-14] MEDS: PANTOprazole 40 MG TAB PO SCH (12:24)
--- NOTE | 2021-03-14 18:15 | Hospitalist Progress Note ---
Date of Service March 14, 2021 Assessment & Plan (1) Diverticulitis: Plan: Acute Diverticulitis No leukocytosis -CTA/P: Acute sigmoid diverticulitis. No free air, no evidence of abscess. Liver cirrhotic morphology consistent with REBOLLAR. Splenomegaly appreciated, evidence of portal hypertension present. Appendix similar appearance to prior. Nonspecific retroperitoneal lymph node shotty in appearance, unchanged from prior. Patient without signs of high risk/complication, however with inadequate oral analgesia requiring IV pain control Continue IV antibiotics. Advance diet as tolerated. -continue pain control (2) Diabetes mellitus, type 2: Plan: Type 2 diabetes mellitus sugars overall still at goal - continue current and follow (3) Anxiety and depression: Plan: Anxiety/depression Continue home paroxetine 20 mg p.o. daily (4) GERD (gastroesophageal reflux disease): Plan: GERD Protonix 40 mg daily (5) Hyperlipidemia: Plan: Hyperlipidemia Atorvastatin 20 mg daily (6) Hypertension: Plan: BP reasonable given the situation Monitoring Continue propranolol (7) Hypothyroidism: Plan: Hypothyroidism Continue Synthroid 112 mcg daily Last TSH check normal (8) 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: Plan: Nonalcoholic steatohepatitis Glycemic management as above No acute exacerbation Avoid hepatotoxic agents No signs of encephalopathy on admission, defer ammonia check at this time Continue propranolol -suspect this explains her low plt (9) Chest pain: Plan: troponin negative, echo reassuring (and no pathology tied to murmur heard on admission - ?flow from low volume most likely) -suspect was radiation from abdomen; given risks for CAD can d/w PCP re ?outpt w/u vs monitoring - but no need for acute intervention at this time Plan: stable on med/surg, mechanical DVT proph initiated given cirrhosis/varices. an ticipate home on PO abx once pain improves more Admission and Anticipated Discharge Date Admission Date: March 14, 2021 Subjective belly pain still bad. worse after eating. otherwise feeling the same. Review of Systems 2 Review of Systems: All systems reviewed & are unremarkable except as noted in HPI & below Physical Exam Physical Exam: gen aao pleasant nad heent nc at mmm breathing unlabored no accessory muscles good effort abd soft nd but ongoing LLQ tenderness no guarding rebound neuro no focal deficits Results & Data Results & Data ([facility]) Vital Signs (Past 12 Hours) Vital Signs Temp Pulse Pulse Resp BP BP Pulse Ox 03/14/21 15:33 97.9 F 74 18 118/66 94 03/14/21 15:00 73 03/14/21 10:59 97.5 F L 75 17 96/56 L 94 03/14/21 07:35 97.7 F 74 17 107/53 L 95 03/14/21 07:00 74 PG Care Time/CCT Total # of Minutes Spent Total Time Spent with Patient: Total time spent is greater than 50% in coordination of care (as documented) at patient's floor/unit and/or counseling patient: Coding Level of Care Code 42891 Subseq Hosp Care Lvl 2 Diagnoses Diverticulitis K57.92 Diabetes mellitus, type 2 E11.9 Anxiety and depression F41.9; F32.9 GERD (gastroesophageal reflux disease) K21.9 Esophagitis presence: esophagitis presence not specified Hyperlipidemia E78.5 Hyperlipidemia type: unspecified Hypertension I10 Hypertension type: primary hypertension Hypothyroidism E03.9 Hypothyroidism type: unspecified 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 Chest pain R07.9 (1) GERD (gastroesophageal reflux disease) Esophagitis presence: esophagitis presence not specified Qualified Code(s): K21.9 - Gastro-esophageal reflux disease without esophagitis (2) Hyperlipidemia Hyperlipidemia type: unspecified Qualified Code(s): E78.5 - Hyperlipidemia, unspecified (3) Hypertension Hypertension type: primary hypertension Qualified Code(s): I10 - Essential (primary) hypertension (4) Hypothyroidism Hypothyroidism type: unspecified Qualified Code(s): E03.9 - Hypothyroidism, unspecified
[2021-03-14] MEDS: ONDANSETRON INJ 2 MG/ML 2 ML VIAL IV PRN (19:56)
[2021-03-14] MEDS: ZOLPIDEM TARTRATE 5 MG TAB PO SCH (20:58)
[2021-03-14] MEDS: ROSUVASTATIN CALCIUM 20 MG TAB PO SCH (20:58)
[2021-03-15] MEDS: PIPERACILLIN/TAZOBACTAM 3.375 GM in DEXTROSE 5% 100 ML IV SCH ×3 (01:56→17:34)
[2021-03-15] MEDS: LEVOTHYROXINE SODIUM 112 MCG TABLET PO SCH (06:09)
[2021-03-15 08:24] LABS: Creatinine Clr Calc Pharmacy 41.9 ml/min; Est GFR (African American) 51.5 ml/min; Est GFR (Non-African American) 44.5 ml/min
[2021-03-15] MEDS: INSULIN ASPART PER UNIT SC SCH ×4 (09:27→21:21)
[2021-03-15] MEDS: PARoxetine HCL 20 MG TAB PO SCH (09:28)
[2021-03-15] MEDS: valACYclovir HCL 500 MG TABLET PO SCH ×2 (09:29→21:20)
[2021-03-15] MEDS: MoRPHine SULFATE 4 MG/ML 1 ML CARP\\VIAL IV PRN ×3 (09:42→21:45)
[2021-03-15] MEDS: ONDANSETRON INJ 2 MG/ML 2 ML VIAL IV PRN (09:46)
[2021-03-15] MEDS: PROPRANOLOL HCL 20 MG TAB PO SCH ×2 (09:53→21:20)
[2021-03-15] MEDS: POTASSIUM CHLORIDE CRTAB 20 MEQ TABCR PO SCH ×2 (12:18→21:20)
[2021-03-15] MEDS: PANTOprazole 40 MG TAB PO SCH (12:19)
--- NOTE | 2021-03-15 19:30 | Hospitalist Progress Note ---
Date of Service March 15, 2021 Assessment & Plan (1) Diverticulitis: Plan: Acute Diverticulitis No leukocytosis -CTA/P: Acute sigmoid diverticulitis. No free air, no evidence of abscess. Liver cirrhotic morphology consistent with REBOLLAR. Splenomegaly appreciated, evidence of portal hypertension present. Appendix similar appearance to prior. Nonspecific retroperitoneal lymph node shotty in appearance, unchanged from prior. Patient without signs of high risk/complication, however with inadequate oral analgesia requiring IV pain controlimproving Continue IV antibiotics. Advance diet to low fiber -continue pain control Hopefully home tomorrow (2) Diabetes mellitus, type 2: Plan: Type 2 diabetes mellitus sugars reasonable- continue current and follow (3) Anxiety and depression: Plan: Anxiety/depression Continue home paroxetine 20 mg p.o. daily (4) GERD (gastroesophageal reflux disease): Plan: GERD Protonix 40 mg daily (5) Hyperlipidemia: Plan: Hyperlipidemia Atorvastatin 20 mg daily (6) Hypertension: Plan: BP controlled Monitoring Continue propranolol (7) Hypothyroidism: Plan: Hypothyroidism Continue Synthroid 112 mcg daily Last TSH check normal (8) 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: Plan: Nonalcoholic steatohepatitis Glycemic management as above No acute exacerbation Avoid hepatotoxic agents No signs of encephalopathy on admission, defer ammonia check at this time Continue propranolol -suspect this explains her low plt (9) Chest pain: Plan: troponin negative, echo reassuring (and no pathology tied to murmur heard on admission - ?flow from low volume most likely) -suspect was radiation from abdomen; given risks for CAD can d/w PCP re ?outpt w/u vs monitoring - but no need for acute intervention at this time Plan: stable on med/surg, mechanical DVT proph initiated given cirrhosis/varices. an ticipate home on PO abx once pain improves morehopefully tomorrow Admission and Anticipated Discharge Date Admission Date: March 14, 2021 Subjective Feeling better. Did have a black bowel movement last night, otherwise no new complaints. Abdominal pain is improving. Think she could try regular food. Wonders what medication she would go home with. Review of Systems Review of Systems: All systems reviewed & are unremarkable except as noted in HPI & below Physical Exam Physical Exam: In general she is awake and alert pleasant no distress. HEENT normocephalic atraumatic mucous membranes moist. Breathing unlabored no accessory muscle use good effort. Abdomen is soft she still has left lower quad rant tenderness but unable to push much harder than the previous few days, no guarding rebound or rigidity. Neuro without focal deficits. Results & Data Results & Data ([facility]) Vital Signs (Past 12 Hours) Vital Signs Temp Pulse Resp BP Pulse Ox 03/15/21 16:00 98.4 F 82 16 114/62 93 PG Care Time/CCT Total # of Minutes Spent Total Time Spent with Patient: Total time spent is greater than 50% in coordination of care (as documented) at patient's floor/unit and/or counseling patient: Coding Level of Care Code 56380 Subseq Hosp Care Lvl 2 Diagnoses Diverticulitis K57.92 Diabetes mellitus, type 2 E11.9 Anxiety and depression F41.9; F32.9 GERD (gastroesophageal reflux disease) K21.9 Esophagitis presence: esophagitis presence not specified Hyperlipidemia E78.5 Hyperlipidemia type: unspecified Hypertension I10 Hypertension type: primary hypertension Hypothyroidism E03.9 Hypothyroidism type: unspecified 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 Chest pain R07.9 (1) GERD (gastroesophageal reflux disease) Esophagitis presence: esophagitis presence not specified Qualified Code(s): K21.9 - Gastro-esophageal reflux disease without esophagitis (2) Hyperlipidemia Hyperlipidemia type: unspecified Qualified Code(s): E78.5 - Hyperlipidemia, unspecified (3) Hypertension Hypertension type: primary hypertension Qualified Code(s): I10 - Essential (primary) hypertension (4) Hypothyroidism Hypothyroidism type: unspecified Qualified Code(s): E03.9 - Hypothyroidism, unspecified
[2021-03-15] MEDS: ROSUVASTATIN CALCIUM 20 MG TAB PO SCH (21:20)
[2021-03-15] MEDS: ZOLPIDEM TARTRATE 5 MG TAB PO SCH (21:20)
[2021-03-16] MEDS: PIPERACILLIN/TAZOBACTAM 3.375 GM in DEXTROSE 5% 100 ML IV SCH ×2 (01:54→09:42)
[2021-03-16] MEDS: LEVOTHYROXINE SODIUM 112 MCG TABLET PO SCH (05:56)
[2021-03-16] MEDS: PARoxetine HCL 20 MG TAB PO SCH (07:44)
[2021-03-16] MEDS: PROPRANOLOL HCL 20 MG TAB PO SCH (07:44)
[2021-03-16] MEDS: valACYclovir HCL 500 MG TABLET PO SCH (07:44)
[2021-03-16] MEDS: POTASSIUM CHLORIDE CRTAB 20 MEQ TABCR PO SCH (07:47)
[2021-03-16 08:00] LABS: Hematocrit (blood only) 32.8 % (37-47); Hemoglobin 11.3 g/dL (12.0-16.0); Mean Corpuscular Hemoglobin 32.2 pg (25-34); Mean Corpuscular Hgb Conc 34.5 g/dL (32-36); Mean Corpuscular Volume 93.4 fL (80-100); RDW Coefficient of Variation 14.7 % (11.5-14.5); RDW Standard Deviation 49.6 fL (36.4-46.3); Red Blood Count 3.51 M/uL (4.2-5.4); White Blood Count 4.82 K/uL (4.8-10.8)
[2021-03-16 08:10] LABS: Platelet Count 91 K/uL (130-400)
[2021-03-16] MEDS: INSULIN ASPART PER UNIT SC SCH ×2 (08:34→12:43)
[2021-03-16 08:36] LABS: Basophils # (auto) 0.01 K/uL (0-0.2); Basophils % (auto) 0.2 %; Eosinophils # (auto) 0.18 K/uL (0-0.5); Eosinophils % (auto) 3.7 %; Immature Granulocytes # (auto) 0.01 K/uL (0.00-0.02); Immature Granulocytes % (auto) 0.2 %; Lymphocytes # (auto) 1.06 K/uL (1.2-3.4); Monocytes # (auto) 0.94 K/uL (0.11-0.59); Monocytes % (auto) 19.5 %; Neutrophils # (auto) 2.62 K/uL (1.4-6.5); Neutrophils % (auto) 54.4 %
[2021-03-16 08:51] LABS: BUN Creatinine Ratio 11.5 (10-20); Calcium 10.3 mg/dl (8.5-10.1); Creatinine Clr Calc Pharmacy 42.6 ml/min; Est GFR (African American) 52.6 ml/min; Est GFR (Non-African American) 45.4 ml/min; Potassium 4.1 mmol/L (3.5-5.1)
[2021-03-16] MEDS: PANTOprazole 40 MG TAB PO SCH (11:56)
[2021-03-16] MEDS: KETOROLAC TROMETHAMINE 15 MG/ML VIAL IV PRN (13:03)
--- NOTE | 2021-03-16 13:54 | Discharge Summary ---
Date of Service March 16, 2021 Admission HPI Per Admitting Provider Patient is a 65-year-old female the past medical history of vertigo, hyperparathyroidism, nonalcoholic steatohepatitis, type 2 diabetes, and diverticulitis who presented with 1 day of worsening left lower quadrant pain with radiation. Was recently on antibiotics for sinusitis, no prior history of C. difficile. Patient endorses approximately 1 maybe 2 days of left lower quadrant abdominal pain consistent with her prior episode of diverticulitis. She endorses nausea, nonbilious/nonbloody emesis, and diarrhea. Food worsens her pain, and she has been taking some fluids but minimal nutrition and does not have much of an appetite. Endorses feelings of fever, chills in the last day. Had one episode of left-sided chest discomfort which passed after approximately 5 minutes, no associated shortness of breath or dyspnea. No leg swelling. Has a history of Daily, which she reports has been stable without exacerbation. Denies other symptoms. Allergic to tetracycline, has been treated with multiple medications including Augmentin and Cipro/Flagyl in the past. She feels her pain is somewhat improved with IV pain control, but still around 6/10 and worsened in the left quadrant with palpation at time of assessment. Medical History: Reviewed Medications: Reviewed Surgical History: Reviewed Allergies: Reviewed Social History: No alcohol use. No tobacco use. No recreational drug use. Code Status: Surrogate decision maker Gus Dee. DNR/DNI. Principal Diagnosis Diverticulitis, uncontrolled pain Discharge Exam In general she is awake and alert pleasant no distress. HEENT normocephalic atraumatic mucous membranes moist. Breathing unlabored no accessory muscle use. Abdomen is soft nondistended minimal left lower quadrant tenderness to only deep palpation. No guarding rebound or rigidity. Extremities show no cyanosis or clubbing. Neuro without focal deficits. Mental status intact. Discharge Data Allergies Allergy/AdvReac Type Severity Reaction Status Date / Time bee venom protein (honey bee) Allergy Severe Anaphylaxis Verified 03/12/21 11:08 Influenza Virus Vaccines Allergy Severe Anaphylaxis Verified 03/12/21 11:08 tetracycline AdvReac Severe Severe Verified 03/12/21 11:08 stomach pains Consultations 03/12/21 11:43 ED Decision to Admit Stat Ordered Studies 03/12/21 09:14 CT abd pelvis IV con only Stat Hospital Course (1) Diverticulitis: Acute Diverticulitis No leukocytosis -CTA/P: Acute sigmoid diverticulitis. No free air, no evidence of abscess. Liver cirrhotic morphology consistent with DAILY. Splenomegaly appreciated, evidence of portal hypertension present. Appendix similar appearance to prior. Nonspecific retroperitoneal lymph node shotty in appearance, unchanged from prior. Patient without signs of high risk/complication, however with inadequate oral analgesia requiring IV pain controlimproving Pain now doing better, tolerating low fiber diet, feels up to going home. Home on Augmentingiven that it took quite a while for her to start to improve/had very significant painwe will treat for 14 total days with antibiotics. Oxycodone as needed severe pain. -Stable for home, outpatient follow-up with GI already scheduled for slightly more than a week Total Time Total Time Spent Total Time Spent (In Minutes): Less than 30 Discharge Plan Discharge Items Patient Disposition: Home - Self-Care Reason For Visit: ACUTE DIVERTICULITIS Discharge Diagnosis: diverticulitis - now improving Activity: Resume your previous activity Non-emergency contact: Primary Care Provider Call non-emergency contact if: you have any medication questions, your symptoms worsen and you have a fever Follow-up/Referrals: Reza Cid MD [Primary Care Provider] - Diet: Carb Consistent or DM2 and Low Fiber Addtl Attending Provider Instructions: diverticulitis -while you were never in danger (there was no surrounding infection, abscess, or signs of perforation (eroding infection through the intestinal wall), you were quite symptomatic -fortunately this has improved quite nicely - and it's safe to get you home -since this was so symptomatic, we'll treat for 14 days total with antibiotics - another 10 days of pill antibiotics with augmentin (amoxicillin/clavulanate) with your next dose starting tonight -i've also sent a prescription for pain medicine (oxycodone) that you can take up to 4 times a day for any severe pain. the main side effects with this kind of medicine are sedation and constipation - so just use with caution -follow up with Dr García as scheduled; call your PCP to be seen sooner if you're not doing well/ the pain worsens/etc diabetes -your A1c (3 month average for sugar control) came back elevated this time - it had jumped to 8%. usually when we see this kind of a jump (the last check in august was a beautiful 5.9%) it's due to eating more carbohydrates than you usually do -- since high sugars clog arteries, we definitely want you to look at what you've been eating to get this back under better control. often a nice "trick" is to check sugars ~1-2 hours after you eat -- this will "grade your work" as far as the carbs that you ate - anything that bumps your sugar to over about 150 two hours after eating would be something that you should cut back on, or view as more of a treat. given that your typical sugar control is quite good, i really think this is all food related, not some sort of change in metabolism (which is almost never the case) or anything that would require an increase/additional medications at this time Pending Studies at Discharge: No Stand-Alone Forms: My [facility] [employer], Smoking Cessation Medications and DC Order Prescriptions: New amoxicillin-pot clavulanate [Augmentin] 875-125 mg tablet 1 tab PO BID Qty: 20 RF: 0 oxycodone 5 mg tablet 5 mg PO QID PRN (Reason: pain) Qty: 10 RF: 0 Continued One-A-Day Women's Active 18 mg iron- 400 mcg-180 mg tablet 1 tab PO HS RF: 0 (DME) OneTouch Verio test strips Strip See Rx Instructions .Route RF: 0 omeprazole 40 mg capsule,delayed release(DR/EC) 40 mg PO QDL RF: 0 rosuvastatin [Crestor] 20 mg tablet 20 mg PO HS RF: 0 paroxetine HCl 20 mg tablet 20 mg PO QAM RF: 0 ascorbic acid (vitamin C) [Vitamin C] 500 mg Tablet 500 mg PO HS RF: 0 potassium chloride [Klor-Con M20] 20 mEq Tablet,Er Particles/Crystals 20 meq PO BID Qty: 60 RF: 0 propranolol 20 mg tablet 20 mg PO BID RF: 0 levothyroxine 112 mcg tablet 112 mcg PO DAILYBB RF: 0 cholecalciferol (vitamin D3) 25 mcg (1,000 unit) capsule 1,000 unit PO QAM RF: 0 Trulicity 1.5 mg/0.5 mL pen injector 1.5 mg subcut WK RF: 0 valacyclovir 1 gram tablet 1 mg PO BID RF: 0 zolpidem 5 mg tablet 5 mg PO HS RF: 0 lactulose 10 gram/15 mL solution 45 ml PO DAILY PRN (Reason: Constipation) RF: 0 Effer-K 20 mEq tablet, effervescent 20 meq PO TID RF: 0 Discharge Orders: Discharge Order (Routine); Ordered 03/16/21 Ordered By: Jozef Fairchild Admission Data Admit Date/Time: 03/14/21 16:05 Attending Provider: Jozef Fairchild Admit Provider: Fredy Louis Primary Care Provider: Reza Cid Other Providers: Fredy Louis Other Interventions: Discharge Summary Assessment (RN) Last Done: 03/16/21 10:56 Coding Level of Care Code D/C DAY MANAGEMENT <30 MINS Diagnoses Diverticulitis K57.92
== END 2021-03-16 14:15 | disposition home or self-care (01) | DRG 392 ==
LOC: ED 08:16 → EDINP 12:15 → SUATTDRO 12:15 → INTOOBSV 12:15 → 2N 13:59 → 3N 03-14 21:36

== ENCOUNTER 2021-07-15 08:11 | Inpatient (IN) ==
--- NOTE | 2021-07-15 08:21 | Emergency Department Note ---
Impression & Plan Urinary tract infection, Hypokalemia, Hypomagnesemia, Elevated lactic acid level, Intractable nausea and vomiting, Liver cirrhosis secondary to DAILY ED Provider Note NAME: SHOLA WYNN AGE: 66 SEX: F ARRIVES VIA: Walk-In INFORMANT: Patient ED PROVIDER(S): Jan Padron MD CHIEF COMPLAINT: n/v/d, abdominal pain PLAN: Disposition: Admit. MEDICAL DECISION MAKING: The patient is a pleasant 66-year-old woman with a past medical history of Daily cirrhosis who presents to the emergency department accompanied by her for evaluation of acute onset nausea, vomiting, diarrhea and abdominal pain that began last night around 11 PM. She reports prior to this yesterday she was feeling well in her normal state of health. She denies cough, congestion, fevers, chest pain, shortness of breath. She is vaccinated for COVID-19 and denies any known COVID-19 exposures. She has not vaccinated for influenza. On arrival the patient is uncomfortable but no acute distress, afebrile stable vital signs. She appears clinically dry. She has mild epigastric and left lower quadrant tenderness without guarding or rebound. EKG without overt acute ischemia. WBC, Hbg, platelets wnl. Chemistry without acidosis. INR 1.2 similar to prior range. Potassium 3.2 and Magnesium 1.2 with repletion initiated. LFTs within prior range of values. High-sensitivity troponin 12.6, wnl. Lipase elevated at 212, 2x normal, nonspecific. Procalcitonin is not significantly elevated. Initial lactate 3.3 downtrending to 2.7. UA is suspicious for infection. Patient does report having dysuria several days ago. Covid-19 PCR negative. Influenza an d RSV PCR negative. CT abd/pelvis demonstrates known liver disease as well as evidence of cystitis. Upon re-evaluation the patient did feel improved following IVF hydration, zofran, famotidine, morphine but still unwell. Agrees with plan for admission. Blood cultures drawn and patient given CTX for urinary infection. Case was discussed with Dr. Vences, [facility] hospitalist, who will evaluate th e patient for admission. Triage Nursing notes reviewed and agree them. Prior medical records reviewed Vital Signs: reviewed and remarkable for no significant abnormalities Differential diagnosis: Gastroenteritis, food borne illness, infections, appendicitis, diverticulitis, inflammatory bowel disease, obstruction, GI bleed, biliary pathology, volvulus, as well as other pathologies. ER treatment provided: See below. Diagnostics interpreted by me: ECG: NSR, 75 bpm, no ectopy, LVH, nonspecific TWA, no overt ST elevation or depression. Cardiac Monitoring: An order for continuous cardiac monitoring was placed and demonstrated NSR, 75 bpm, no ectopy. Laboratory studies: See below Imaging studies: See below Consultation(s): Case was discussed with Dr. Vences, [facility] hospitalist, who will evaluate the patient for admission. HPI: The patient is a pleasant 66-year-old woman with a past medical history of Daily cirrhosis who presents to the emergency department accompanied by her for evaluation of acute onset nausea, vomiting, diarrhea and abdominal pain that began last night around 11 PM. She reports prior to this yesterday she was feeling well in her normal state of health. She denies cough, congestion, fevers, chest pain, shortness of breath. She is vaccinated for COVID-19 and denies any known COVID-19 exposures. She has not vaccinated for influenza. ROS: See above HPI for pertinent positives & negatives. A total of 10 systems reviewed and were otherwise negative. VITALS:See Below PHYSICAL EXAMINATION: GENERAL: Awake, alert, uncomfortable-appearing, in no distress HENT: Normocephalic, atraumatic. Oropharynx with dry mucous membranes and otherwise unremarkable. EYES: Normal conjunctiva. Sclera non-icteric. NECK: Supple. No nuchal rigidity. FROM. No JVD. RESPIRATORY: Clear to auscultation. CARDIAC: Regular rate, normal rhythm. Extremities warm and well perfused. Pulses equal. ABDOMEN: Soft, non-distended. Mild epigastric and left lower quadrant tenderness without guarding or rebound.No masses. RECTAL: Deferred. MUSCULOSKELETAL: Chest examination reveals no tenderness. The back is symme trical on inspection without obvious abnormality. There is no CVA tenderness to palpation. No joint edema. LOWER EXTREMITIES: Calves are equal size bilaterally and non-tender. No edema. No discoloration. NEURO: Normal sensorium. No sensory or motor deficits noted. SKIN: No rash or jaundice noted. ED COURSE: Critical Care: I have personally spent greater than 35cminutes of critical care time in the direct management of this patient. This includes bedside care, interpretation of diagnostic studies, and testing, discussion with consultants, patient, and family members, and other required patient management activities. This 35 minutes is in excess of all separately billable procedures. Jan Padron MD Past Med/Surg History Medical History (Updated 07/15/21 @ 22:36 by Jan Padron MD) Anemia Anxiety and depression Arthritis Moeller's esophagus with esophagitis Chronic diarrhea Colitis Diabetes mellitus, type 2 Diverticulitis of sigmoid colon Diverticulosis GERD (gastroesophageal reflux disease) GI bleed RECENT HOSPITALIZED Heel spur B/L feet Hiatal hernia History of kidney stones Hyperlipidemia Hypertension NO CURRENT MEDS Hypothyroidism Liver cirrhosis secondary to DAILY Nephrolithiasis Primary hyperparathyroidism Spleen enlarged Stucco keratoses Temporomandibular joint disorder 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 Surgical History H/O thumb surgery RT/LEFT JOINT REPAIR H/O total hysterectomy History of appendectomy History of arthroscopy of knee Left Knee - meniscus/cartilage History of colonoscopy History of cystoscopy History of esophagogastroduodenoscopy (EGD) History of tonsillectomy and adenoidectomy History of tooth extraction Hx of cholecystectomy Family History Brother Coronary heart disease Heart disease Mother Family history of diabetes mellitus Hypertension Heart disease Sister Family history of diabetes mellitus Son Family history of diabetes mellitus Father Family hx of colon cancer Hearing loss Hypertension Cancer Heart disease Grandfather (Maternal) Family hx of colon cancer Other No family history of adverse response to anesthesia No family history of bleeding disorder Social History Smoking Status: Former smoker Second Hand Exposure: No; Hx Alcohol Use: No Hx Substance Use: No Preferred Language: Belarusian Communication Ability: Effective 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 Beliefs That Will Affect Care: None marital status: Current Living Situation: Spouse Current Living Situation Comment: and sister current occupational status: employed and retired Feels Safe at Home: Yes Assistive Devices: Glasses Allergies Allergies Allergy/AdvReac Type Severity Reaction Status Date / Time bee venom protein (honey bee) Allergy Severe Anaphylaxis Verified 07/15/21 08:54 Influenza Virus Vaccines Allergy Severe Anaphylaxis Verified 07/15/21 08:54 tetracycline AdvReac Severe Severe Verified 07/15/21 08:54 stomach pains Home Meds Home Medications Medication Instructions Recorded Confirmed omeprazole 40 mg capsule,delayed 40 mg PO QDL 08/03/18 07/15/21 release paroxetine HCl 20 mg tablet 20 mg PO QAM 04/17/19 07/15/21 multivit,Ca,mzl-rvkl-DA-guarana-caff 1 tab PO HS 11/30/19 07/15/21 18 mg iron-400 mcg-180 mg tablet (One-A-Day Women's Active) rosuvastatin 20 mg tablet (Crestor) 20 mg PO HS tab 12/28/19 07/15/21 blood sugar diagnostic (OneTouch 11/12/20 06/17/21 Verio test strips) zolpidem 5 mg tablet 5 mg PO HS 03/12/21 07/15/21 valacyclovir 1 gram tablet 1 mg PO BID PRN 04/16/21 07/15/21 lorazepam 1 mg tablet 1 mg PO DAILY PRN 05/29/21 07/15/21 metformin 500 mg tablet 1,000 mg PO BID tab 05/29/21 07/15/21 propranolol 20 mg tablet 100 mg PO DAILY tab 05/29/21 07/15/21 cinacalcet 30 mg tablet 30 mg PO DAILY 06/17/21 07/15/21 Crestor 20 mg PO QAM 07/15/21 07/15/21 hqvoxklg-gpv-jxmyw ac 400 1 tab PO HS 07/15/21 07/15/21 mcg-calcium carb 500 mg-vit K1 20 mcg tablet (Women's 50 Plus Multivitamin) Previous Rx's Medication Instructions Recorded potassium chloride 20 mEq 20 meq PO BID #60 tab 09/23/20 tablet,extended release(part/cryst) (Klor-Con M) levothyroxine 100 mcg tablet 100 mcg PO .COMPLEX #30 tab 03/26/21 levothyroxine 112 mcg tablet 112 mcg PO .COMPLEX #45 tab 05/19/21 chlorthalidone 25 mg tablet 25 mg PO DAILY #90 tab 05/29/21 FreeStyle Lisy 2 Sensor (flash #2 ea NS 06/17/21 glucose sensor) dulaglutide 3 mg/0.5 mL 3 mg SUBCUT .weekly 90 Days #6 ml 06/19/21 subcutaneous pen injector Results & Data (ED) Vital Signs Vital Signs - 24 hr 07/15/21 08:16 07/15/21 09:08 07/15/21 09:17 Temperature 36.6 C Temperature Source Temporal Artery Scan Pulse Rate 87 Pulse Rate [Apical] 79 Respiratory Rate 18 13 Blood Pressure 133/70 Blood Pressure [Left Arm] 134/64 Blood Pressure Mean 91 Blood Pressure Mean [Left Arm] 87 Blood Pressure Position Sitting Pulse Oximetry 96 96 Oxygen Delivery Method Room Air Room Air Room Air Sepsis Recent Fever Within 48 Hours No Sepsis New/Unexplained Change in Mental Status No Sepsis Action Taken by Nursing No Action Required 07/15/21 10:30 07/15/21 11:30 Temperature Temperature Source Pulse Rate Pulse Rate [Apical] 82 78 Respiratory Rate 17 13 Blood Pressure Blood Pressure [Left Arm] 138/52 L 124/56 L Blood Pressure Mean Blood Pressure Mean [Left Arm] 80 78 Blood Pressure Position Pulse Oximetry 96 93 Oxygen Delivery Method Room Air Room Air Sepsis Recent Fever Within 48 Hours Sepsis New/Unexplained Change in Mental Status Sepsis Action Taken by Nursing Laboratory Data Attestation: I reviewed the patient's lab results. Result diagrams: 07/15/21 09:10 07/15/21 09:10 Lab Results 07/15/21 07/15/21 07/15/21 Range/Units 09:10 09:10 09:10 WBC 8.26 (4.8-10.8) K/uL RBC 3.86 L (4.2-5.4) M/uL Hgb 12.6 (12.0-16.0) g/dL Hct 36.2 L (37-47) % MCV 93.8 (80-100) fL MCH 32.6 (25-34) pg MCHC 34.8 (32-36) g/dL RDW Std Deviation 53.0 H (36.4-46.3) fL RDW Coeff of Charlee 15.4 H (11.5-14.5) % Plt Count 149 (130-400) K/uL MPV 8.9 (7.4-10.4) fL Immature Gran % (Auto) 0.5 % Neut % (Auto) 48.3 % Lymph % (Auto) 32.8 % Jackson % (Auto) 14.5 % Eos % (Auto) 3.5 % Baso % (Auto) 0.4 % Neut # (Auto) 3.99 (1.4-6.5) K/uL Lymph # (Auto) 2.71 (1.2-3.4) K/uL Jackson # (Auto) 1.20 H (0.11-0.59) K/uL Eos # (Auto) 0.29 (0-0.5) K/uL Baso # (Auto) 0.03 (0-0.2) K/uL Immature Gran # (Auto) 0.04 H (0.00-0.02) K/uL PT 12.5 H (9.0-12.0) Seconds INR 1.2 H (0.9-1.1) Sodium (136-145) mmol/L Potassium (3.5-5.1) mmol/L Chloride (98-107) mmol/L Carbon Dioxide (21-32) mmol/L Anion Gap (3-11) BUN (6-23) mg/dl Creatinine (0.6-1.2) mg/dl Est Cr Clr Drug Dosing ml/min Est GFR ( Amer) ml/min Est GFR (Non-Af Amer) ml/min BUN/Creatinine Ratio (10-20) Glucose (70-99(Fasting)) mg/dl Lactate (0.4-2.0) mmol/L Calcium (8.5-10.1) mg/dl Phosphorus (2.5-4.9) mg/dl Magnesium (1.7-2.4) mg/dl Total Bilirubin (0.2-1.0) mg/dl Direct Bilirubin (0-0.2) mg/dl AST (13-39) U/L ALT (7-52) U/L Alkaline Phosphatase (34-104) U/L Troponin I High Sens 12.6 (0-14) pg/ml Total Protein (6.0-8.3) gm/dl Albumin (3.4-5.0) gm/dl Globulin (2.5-4.0) gm/dl Albumin/Globulin Ratio (0.9-2) Lipase (11-82) U/L Procalcitonin (0-0.5) ng/ml Urine Color Urine Appearance (Clear) Urine pH (4.5-7.5) Ur Specific [place] (1.000-1.030) Urine Protein (Negative) Urine Glucose (UA) (Negative) Urine Ketones (Negative) Urine Blood (Negative) Urine Nitrite (Negative) Urine Bilirubin (Negative) Urine Urobilinogen (Negative) Ur Leukocyte Esterase (Negative) Urine WBC (Auto) (0-5) /hpf Urine RBC (Auto) (0-4) /hpf U Hyaline Cast (Auto) (0-5) /lpf U Epithel Cells (Auto) (0-5) /lpf Urine Bacteria (Auto) (Negative) SARS-CoV-2 (PCR) (Negative) Influenza Type A (PCR) (Neg) Influenza Type B (PCR) (Neg) RSV (RT-PCR) (Neg) 07/15/21 07/15/21 07/15/21 Range/Units 09:10 09:10 09:10 WBC (4.8-10.8) K/uL RBC (4.2-5.4) M/uL Hgb (12.0-16.0) g/dL Hct (37-47) % MCV (80-100) fL MCH (25-34) pg MCHC (32-36) g/dL RDW Std Deviation (36.4-46.3) fL RDW Coeff of Charlee (11.5-14.5) % Plt Count (130-400) K/uL MPV (7.4-10.4) fL Immature Gran % (Auto) % Neut % (Auto) % Lymph % (Auto) % Jackson % (Auto) % Eos % (Auto) % Baso % (Auto) % Neut # (Auto) (1.4-6.5) K/uL Lymph # (Auto) (1.2-3.4) K/uL Jackson # (Auto) (0.11-0.59) K/uL Eos # (Auto) (0-0.5) K/uL Baso # (Auto) (0-0.2) K/uL Immature Gran # (Auto) (0.00-0.02) K/uL PT (9.0-12.0) Seconds INR (0.9-1.1) Sodium 138 (136-145) mmol/L Potassium 3.2 L (3.5-5.1) mmol/L Chloride 100 (98-107) mmol/L Carbon Dioxide 27 (21-32) mmol/L Anion Gap 11 (3-11) BUN 21 (6-23) mg/dl Creatinine 1.06 (0.6-1.2) mg/dl Est Cr Clr Drug Dosing 48.3 ml/min Est GFR ( Amer) 62.5 ml/min Est GFR (Non-Af Amer) 53.9 ml/min BUN/Creatinine Ratio 19.8 (10-20) Glucose 133 H (70-99(Fasting)) mg/dl Lactate (0.4-2.0) mmol/L Calcium 10.3 H (8.5-10.1) mg/dl Phosphorus 2.6 (2.5-4.9) mg/dl Magnesium 1.2 L (1.7-2.4) mg/dl Total Bilirubin 4.0 H (0.2-1.0) mg/dl Direct Bilirubin 0.9 H (0-0.2) mg/dl AST 43 H (13-39) U/L ALT 24 (7-52) U/L Alkaline Phosphatase 164 H (34-104) U/L Troponin I High Sens (0-14) pg/ml Total Protein 6.5 (6.0-8.3) gm/dl Albumin 4.0 (3.4-5.0) gm/dl Globulin 2.5 (2.5-4.0) gm/dl Albumin/Globulin Ratio 1.6 (0.9-2) Lipase 212 H (11-82) U/L Procalcitonin 0.07 (0-0.5) ng/ml Urine Color Urine Appearance (Clear) Urine pH (4.5-7.5) Ur Specific [place] (1.000-1.030) Urine Protein (Negative) Urine Glucose (UA) (Negative) Urine Ketones (Negative) Urine Blood (Negative) Urine Nitrite (Negative) Urine Bilirubin (Negative) Urine Urobilinogen (Negative) Ur Leukocyte Esterase (Negative) Urine WBC (Auto) (0-5) /hpf Urine RBC (Auto) (0-4) /hpf U Hyaline Cast (Auto) (0-5) /lpf U Epithel Cells (Auto) (0-5) /lpf Urine Bacteria (Auto) (Negative) SARS-CoV-2 (PCR) NEGATIVE (Negative) Influenza Type A (PCR) Negative (Neg) Influenza Type B (PCR) Negative (Neg) RSV (RT-PCR) Negative (Neg) 07/15/21 07/15/21 Range/Units 09:52 11:45 WBC (4.8-10.8) K/uL RBC (4.2-5.4) M/uL Hgb (12.0-16.0) g/dL Hct (37-47) % MCV (80-100) fL MCH (25-34) pg MCHC (32-36) g/dL RDW Std Deviation (36.4-46.3) fL RDW Coeff of Charlee (11.5-14.5) % Plt Count (130-400) K/uL MPV (7.4-10.4) fL Immature Gran % (Auto) % Neut % (Auto) % Lymph % (Auto) % Jackson % (Auto) % Eos % (Auto) % Baso % (Auto) % Neut # (Auto) (1.4-6.5) K/uL Lymph # (Auto) (1.2-3.4) K/uL Jackson # (Auto) (0.11-0.59) K/uL Eos # (Auto) (0-0.5) K/uL Baso # (Auto) (0-0.2) K/uL Immature Gran # (Auto) (0.00-0.02) K/uL PT (9.0-12.0) Seconds INR (0.9-1.1) Sodium (136-145) mmol/L Potassium (3.5-5.1) mmol/L Chloride (98-107) mmol/L Carbon Dioxide (21-32) mmol/L Anion Gap (3-11) BUN (6-23) mg/dl Creatinine (0.6-1.2) mg/dl Est Cr Clr Drug Dosing ml/min Est GFR ( Amer) ml/min Est GFR (Non-Af Amer) ml/min BUN/Creatinine Ratio (10-20) Glucose (70-99(Fasting)) mg/dl Lactate 3.3 H* (0.4-2.0) mmol/L Calcium (8.5-10.1) mg/dl Phosphorus (2.5-4.9) mg/dl Magnesium (1.7-2.4) mg/dl Total Bilirubin (0.2-1.0) mg/dl Direct Bilirubin (0-0.2) mg/dl AST (13-39) U/L ALT (7-52) U/L Alkaline Phosphatase (34-104) U/L Troponin I High Sens (0-14) pg/ml Total Protein (6.0-8.3) gm/dl Albumin (3.4-5.0) gm/dl Globulin (2.5-4.0) gm/dl Albumin/Globulin Ratio (0.9-2) Lipase (11-82) U/L Procalcitonin (0-0.5) ng/ml Urine Color Yellow Urine Appearance Clear (Clear) Urine pH 6.5 (4.5-7.5) Ur Specific [place] 1.017 (1.000-1.030) Urine Protein 2+ H (Negative) Urine Glucose (UA) Negative (Negative) Urine Ketones Negative (Negative) Urine Blood Trace H (Negative) Urine Nitrite Negative (Negative) Urine Bilirubin Negative (Negative) Urine Urobilinogen Positive H (Negative) Ur Leukocyte Esterase 2+ H (Negative) Urine WBC (Auto) >30 H (0-5) /hpf Urine RBC (Auto) 5-10 H (0-4) /hpf U Hyaline Cast (Auto) 1-5 (0-5) /lpf U Epithel Cells (Auto) 20-30 H (0-5) /lpf Urine Bacteria (Auto) 4+ H (Negative) SARS-CoV-2 (PCR) (Negative) Influenza Type A (PCR) (Neg) Influenza Type B (PCR) (Neg) RSV (RT-PCR) (Neg) Administered Medications Famotidine 20 mg/ Syringe 5 mls @ 2.5 mls/min IV Q12H PRIMITIVO Stop: 08/14/21 20:59 Last Admin: 07/15/21 21:08 Dose: 2.5 mls/min Documented by: [id number] Ceftriaxone Sodium 1,000 mg/ (Dextrose) 60 mls @ 100 mls/hr IV Q24H PRIMITIVO; Protocol Stop: 07/25/21 16:59 Last Infusion: 07/15/21 18:28 Dose: 0 mls/hr Documented by: [id number] Admin: 07/15/21 17:52 Dose: 100 mls/hr Documented by: [id number] Potassium Chloride/Sodium Chloride (Normal Saline W/20 Meq Kcl) 20 meq in 1,000 mls @ 100 mls/hr IV .Q10H PRIMITIVO Stop: 08/14/21 16:59 Last Admin: 07/15/21 17:52 Dose: 100 mls/hr Documented by: [id number] Insulin Aspart (Insulin Aspart Per Unit) 0 units SC ACHS PRIMITIVO Stop: 08/14/21 16:29 Last Admin: 07/15/21 21:00 Dose: Not Given Documented by: [id number] Cosigned by: [id number] Admin: 07/15/21 17:51 Dose: Not Given Documented by: [id number] Multivitamins (Multivitamin Tab) 1 tab PO HS PRIMITIVO Stop: 08/14/21 20:59 Last Admin: 07/15/21 21:08 Dose: 1 tab Documented by: [id number] Potassium Chloride (Potassium Chloride Crtab 20 Meq Tabcr) 20 meq PO BID PRIMITIVO Stop: 08/14/21 20:59 Last Admin: 07/15/21 21:07 Dose: 20 meq Documented by: [id number] Rosuvastatin Calcium (Rosuvastatin Calcium 20 Mg Tab) 20 mg PO HS [facility] Stop: 08/14/21 20:59 Last Admin: 07/15/21 21:08 Dose: 20 mg Documented by: [id number] Discontinued Medications Cholestyramine Resin (Cholestyramine Light 4 Gm Pkt) 4 gm PO ONCE ONE Stop: 07/15/21 17:01 Last Admin: 07/15/21 17:52 Dose: Not Given Documented by: [id number] Sodium Chloride (Nss 1000ml) 1,000 mls @ 999 mls/hr IV .Q1H1M ONE Stop: 07/15/21 09:35 Last Infusion: 07/15/21 10:21 Dose: 0 mls/hr Documented by: [id number] Admin: 07/15/21 08:59 Dose: 999 mls/hr Documented by: [id number] Famotidine (Pepcid 20mg Iv Push) 20 mg in 5 mls @ 2.5 mls/min IV NOW STA Stop: 07/15/21 08:36 Last Admin: 07/15/21 08:59 Dose: 2.5 mls/min Documented by: [id number] Magnesium Sulfate/Dextrose (Magnesium Sulfate / D5w) 1 gm in 100 mls @ 100 mls/hr IV Q1H PRIMITIVO Stop: 07/15/21 11:55 Last Infusion: 07/15/21 12:54 Dose: 0 mls/hr Documented by: [id number] Admin: 07/15/21 11:32 Dose: 100 mls/hr Documented by: [id number] Infusion: 07/15/21 11:31 Dose: 0 mls/hr Documented by: [id number] Admin: 07/15/21 10:30 Dose: 100 mls/hr Documented by: [id number] Potassium Chloride (K Terry / Wtr) 10 meq in 100 mls @ 100 mls/hr IV Q1H PRIMITIVO; Protocol Stop: 07/15/21 11:59 Last Infusion: 07/15/21 12:54 Dose: 0 mls/hr Documented by: [id number] Admin: 07/15/21 11:32 Dose: 100 mls/hr Documented by: [id number] Infusion: 07/15/21 11:32 Dose: 0 mls/hr Documented by: [id number] Admin: 07/15/21 10:30 Dose: 100 mls/hr Documented by: [id number] Ceftriaxone Sodium (Rocephin) 2,000 mg in 70 mls @ 140 mls/hr IV NOW STA Stop: 07/15/21 11:53 Last Infusion: 07/15/21 15:16 Dose: 0 mls/hr Documented by: [id number] Admin: 07/15/21 12:54 Dose: 140 mls/hr Documented by: [id number] Ioversol (Optiray 320 100ml) 95 ml IV ONCE ONE Stop: 07/15/21 10:13 Last Admin: 07/15/21 10:13 Dose: 95 ml Documented by: [id number] Ketorolac Tromethamine (Ketorolac Tromethamine 15 Mg/Ml Vial) 10 mg IV NOW ONE Stop: 07/15/21 20:39 Last Admin: 07/15/21 21:06 Dose: 10 mg Documented by: [id number] Morphine Sulfate (Morphine Sulfate 4 Mg/Ml 1 Ml Carp\Vial) 4 mg IV NOW STA Stop: 07/15/21 08:38 Last Admin: 07/15/21 08:59 Dose: 4 mg Documented by: [id number] Morphine Sulfate (Morphine Sulfate 4 Mg/Ml 1 Ml Carp\Vial) 4 mg IV NOW STA Stop: 07/15/21 10:01 Last Admin: 07/15/21 10:03 Dose: 4 mg Documented by: [id number] Morphine Sulfate (Morphine Sulfate 4 Mg/Ml 1 Ml Carp\Vial) 4 mg IV NOW STA Stop: 07/15/21 15:20 Last Admin: 07/15/21 15:25 Dose: 4 mg Documented by: [id number] Ondansetron HCl (Ondansetron Inj 2 Mg/Ml 2 Ml Vial) 4 mg IV NOW STA Stop: 07/15/21 08:36 Last Admin: 07/15/21 08:59 Dose: 4 mg Documented by: [id number] Ondansetron HCl (Ondansetron Inj 2 Mg/Ml 2 Ml Vial) 4 mg IV NOW STA Stop: 07/15/21 15:20 Last Admin: 07/15/21 15:25 Dose: 4 mg Documented by: [id number] Imaging Data Radiologist's Impression: Abdomen/Pelvis CT 07/15/21 08:[address] WITH IV CONTRAST CT DOSE: 507.87 mGy.cm HISTORY: Acute nausea and vomiting with left lower quadrant abdominal pain N/V/D, LLQ pain TECHNIQUE: Multiaxial CT images of the abdomen and pelvis were performed following the IV administration of 95 cc of Optiray, A dose lowering technique was utilized adhering to the principles of ALARA. COMPARISON STUDY: CT abdomen and pelvis 05/20/2021, 03/12/2021. FINDINGS: Cardiomegaly. Asymmetric densities of the inferior central left breast. Mild subsegmental bibasilar atelectasis. There is no pneumatosis or pneumoperitoneum. Spleen is enlarged measuring up to 18 cm in length. Unremarkable adrenal glands. Prominence of the pericolonic duct measuring up to 4-5 mm is similar to prior. No obstructing pancreatic stone or lesion identified. Cholecystectomy with intrahepatic and extrahepatic biliary ductal di lation, likely postsurgical. Cirrhotic morphology of the liver. Patency of the portal vein. No hepatic mass identified. 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 Unremarkable kidneys. No hydronephrosis. Urinary bladder wall thickening with partial distention and perivesicular stranding. Hysterectomy. Atherosclerosis of the aorta. Unchanged prominent retroperitoneal lymph nodes measuring up to 9 mm with mild adjacent inflammatory changes. Nonspecific mild distal esophageal wall thickening. Wall thickening of the distal stomach is likely secondary to partial distention. There is a large duodenal diverticulum. Indeterminate soft tissue nodule within the left pericolic gutter on image 261 is unchanged, possibly a small lymph node. The appendix is air and fluid-filled and measures up to 9 mm, similar to the prior study. Mild wall thickening of the cecum may be secondary to partial distention. Colonic diverticulosis. Mild inflammatory stranding is noted within the abdominal left lower quadrant adjacent to the sigmoid colon and urinary bladder. Unremarkable soft tissues. Degenerative changes of the spine, pelvis and hips. Progressively worsened subacute L4 superior endplate compression deformity with 40% vertebral body height loss and 3 mm retropulsion. IMPRESSION: 1. No bowel obstruction or pneumoperitoneum. 2. Cirrhotic liver disease with stigmata of portal venous hypertension. 3. Urinary bladder wall thickening with partial distention and mild perivesicular stranding. Correlate with urinalysis to exclude cystitis. 4. Unchanged dilation of the appendix. No definite CT evidence of acute appendicitis. 5. Moderate subacute L4 superior endplate compression deformity with minimal retropulsion. 6. Colonic diverticulosis. ACT 112: Negative or not required by law. The above report was generated using voice recognition software. It may contain grammatical, syntax or spelling errors. Electronically signed by: Caleb Shearer M.D. 07/15/2021 10:53 AM Discharge Plan Visit Data Chief Complaint: Vomiting Stated Complaint: COMPLICATIONS OF END STAGE LIVER DISEASE/VOMITING ED Provider: Jan Padron Discharge Problem: Urinary tract infection, Hypokalemia, Hypomagnesemia, Elevated lactic acid level, Intractable nausea and vomiting, Liver cirrhosis secondary to DAILY Patient Disposition: Admitted As Inpatient Discharge Instructions Interventions: ED Discharge Assessment Last Done: 07/15/21 16:15 Discharge Problem: Urinary tract infection Qualifiers: Urinary tract infection type: acute cystitis Hematuria presence: without hematuria Qualified Code(s): N30.00 - Acute cystitis without hematuria
[2021-07-15] MEDS ORDERED: SODIUM CHLORIDE 0.9% 1000ML 1,000 ML IV ONE (08:35)
[2021-07-15] MEDS ORDERED: FAMOTIDINE 20MG IV PUSH 20 MG/5 ML SYR IV STA (08:35)
[2021-07-15] MEDS ORDERED: ONDANSETRON INJ 2 MG/ML 2 ML VIAL IV STA ×2 (08:35→15:19)
[2021-07-15] MEDS ORDERED: MoRPHine SULFATE 4 MG/ML 1 ML CARP\\VIAL IV STA ×3 (08:37→15:19)
[2021-07-15 09:32] LABS: Basophils # (auto) 0.03 K/uL (0-0.2); Basophils % (auto) 0.4 %; Eosinophils # (auto) 0.29 K/uL (0-0.5); Eosinophils % (auto) 3.5 %; Hematocrit (blood only) 36.2 % (37-47); Hemoglobin 12.6 g/dL (12.0-16.0); Immature Granulocytes # (auto) 0.04 K/uL (0.00-0.02); Immature Granulocytes % (auto) 0.5 %; Lymphocytes # (auto) 2.71 K/uL (1.2-3.4); Lymphocytes % (auto) 32.8 %; Mean Corpuscular Hemoglobin 32.6 pg (25-34); Mean Corpuscular Hgb Conc 34.8 g/dL (32-36); Mean Corpuscular Volume 93.8 fL (80-100); Mean Platelet Volume 8.9 fL (7.4-10.4); Monocytes % (auto) 14.5 %; Neutrophils # (auto) 3.99 K/uL (1.4-6.5); Neutrophils % (auto) 48.3 %; Platelet Count 149 K/uL (130-400); RDW Coefficient of Variation 15.4 % (11.5-14.5); Red Blood Count 3.86 M/uL (4.2-5.4); White Blood Count 8.26 K/uL (4.8-10.8)
[2021-07-15 09:40] LABS: INR 1.2 (0.9-1.1); Prothrombin Time 12.5 Seconds (9.0-12.0)
[2021-07-15 09:47] LABS: Albumin Globulin Ratio 1.6 (0.9-2); BUN Creatinine Ratio 19.8 (10-20); Bilirubin Direct 0.9 mg/dl (0-0.2); Calcium 10.3 mg/dl (8.5-10.1); Creatinine Clr Calc Pharmacy 48.3 ml/min; Est GFR (African American) 62.5 ml/min; Est GFR (Non-African American) 53.9 ml/min; Globulin 2.5 gm/dl (2.5-4.0); Magnesium 1.2 mg/dl (1.7-2.4); Phosphorus 2.6 mg/dl (2.5-4.9); Potassium 3.2 mmol/L (3.5-5.1); Total Protein 6.5 gm/dl (6.0-8.3)
[2021-07-15] MEDS ORDERED: OPTIRAY 320 100ml IV ONE (10:12)
[2021-07-15 10:13] LABS: Influenza A virus by PCR Negative (Neg); Influenza B virus by PCR Negative (Neg); RSV by PCR Negative (Neg); SARS CoV2 RNA(COVID-19) InHosp NEGATIVE (Negative)
[2021-07-15 10:24] LABS: Appearance Urine Clear (Clear); Bacteria Urine Automated 4+ (Negative); Bilirubin Urine Negative (Negative); Blood Urine Trace (Negative); Color Urine Yellow; Epithelial Cell Urine Auto 20-30 /lpf (0-5); Glucose Urine UA Negative (Negative); Ketones Urine Negative (Negative); Leukocyte Esterase Urine 2+ (Negative); Nitrite Urine Negative (Negative); Protein Urine 2+ (Negative); Specific Gravity Urine 1.017 (1.000-1.030); Urobilinogen Urine Positive (Negative); WBC Urine Automated >30 /hpf (0-5); pH Urine 6.5 (4.5-7.5)
[2021-07-15] MEDS: MAGNESIUM SULFATE / D5W 1 GM/100 ML BAG IV SCH ×2 (10:30→11:32)
[2021-07-15] MEDS: POTASSIUM CHLORIDE / WTR 10 MEQ/100 ML PLCT IV SCH ×2 (10:30→11:32)
--- NOTE | 2021-07-15 10:56 | CT Scan Report ---
ABDOMEN AND PELVIS CT WITH IV CONTRAST CT DOSE: 507.87 mGy.cm HISTORY: Acute nausea and vomiting with left lower quadrant abdominal pain N/V/D, LLQ pain TECHNIQUE: Multiaxial CT images of the abdomen and pelvis were performed following the IV administrat ion of 95 cc of Optiray, A dose lowering technique was utilized adhering to the principles of ALARA. COMPARISON STUDY: CT abdomen and pelvis 05/20/2021, 03/12/2021. FINDINGS: Cardiomegaly. Asymmetric densities of the inferior central left breast. Mild subsegmental b ibasilar atelectasis. There is no pneumatosis or pneumoperitoneum. Spleen is enlarged measuring up to 18 cm in length. Unremarkable adrenal glands. Prominence of the pericolonic duct measuring up to 4-5 mm is similar to prior. No obstructing pancreatic stone or lesion identified. Cholecystectomy with i ntrahepatic and extrahepatic biliary ductal dilation, likely postsurgical. Cirrhotic morphology of th e liver. Patency of the portal vein. No hepatic mass identified. Esophageal varices with upper abdomi nal portosystemic collateral vessels redemonstrated. Unremarkable kidneys. No hydronephrosis. Urinary bladder wall thickening with partial distention and perivesicular stranding. Hysterectomy. Atherosclerosis of the aorta. Unchanged prominent retroperiton eal lymph nodes measuring up to 9 mm with mild adjacent inflammatory changes. Nonspecific mild distal esophageal wall thickening. Wall thickening of the distal stomach is likely s econdary to partial distention. There is a large duodenal diverticulum. Indeterminate soft tissue nod ule within the left pericolic gutter on image 261 is unchanged, possibly a small lymph node. The appe ndix is air and fluid-filled and measures up to 9 mm, similar to the prior study. Mild wall thickenin g of the cecum may be secondary to partial distention. Colonic diverticulosis. Mild inflammatory stra nding is noted within the abdominal left lower quadrant adjacent to the sigmoid colon and urinary sonia dder. Unremarkable soft tissues. Degenerative changes of the spine, pelvis and hips. Progressively wo rsened subacute L4 superior endplate compression deformity with 40% vertebral body height loss and 3 mm retropulsion. IMPRESSION: 1. No bowel obstruction or pneumoperitoneum. 2. Cirrhotic liver disease with stigmata of portal venous hypertension. 3. Urinary bladder wall thickening with partial distention and mild perivesicular stranding. Correlat e with urinalysis to exclude cystitis. 4. Unchanged dilation of the appendix. No definite CT evidence of acute appendicitis. 5. Moderate subacute L4 superior endplate compression deformity with minimal retropulsion. 6. Colonic diverticulosis. ACT 112: Negative or not required by law. The above report was generated using voice recognition software. It may contain grammatical, syntax o r spelling errors. Electronically signed by: Caleb Shearer M.D. 07/15/2021 10:53 AM
[2021-07-15] MEDS ORDERED: cefTRIAXone SODIUM 2,000 MG/70 ML BAG IV STA (11:24)
--- NOTE | 2021-07-15 12:17 | History & Physical Report ---
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 Stop metformin, as may be contributing to diarrhea She reports that the diarrhea has been disabling (3) Hypokalemia: Plan: Potassium 3.2 upon admission Replace both oral and IV Recheck laboratories in a.m. (4) Hypomagnesemia: Plan: Magnesium 1.2 upon admission- Replacing with IV magnesium sulfate Recheck laboratories in a.m. Likely secondary to diarrhea, which may also be complicated by omeprazole, which will be held (5) GERD (gastroesophageal reflux disease): Plan: GERD/Moeller's esophagus- Change omeprazole to famotidine for now (6) Hypothyroidism: Plan: Continue levothyroxine 112 mcg daily TSH normal 06/03 (7) Hyperlipidemia: Plan: Continue Crestor 20 mg every morning (8) Diabetes mellitus, type 2: Plan: Hold dulaglutide and metformin Would not restart metformin as may be contributing to diarrhea Place on Accu-Cheks before meals and at bedtime with NovoLog coverage per scale (9) Moeller's esophagus with esophagitis: Plan: See above (10) Fracture of fourth lumbar vertebra: Plan: She does report some pain across her back along the pelvis Report on CT of abdomen/pelvis is subacute Will reassess once her GI status is corrected (11) Hypertension: Plan: Hold chlorthalidone due to hypokalemia and low normal blood pressures (12) Primary hyperparathyroidism: Plan: Likely contributing to acute L4 compression fracture Continue cinacalcet (13) Anxiety and depression: Plan: Continue lorazepam, paroxetine and zolpidem (14) UTI (urinary tract infection): Plan: CT suggestive of possible cystitis, however, patient has no direct symptoms Urinalysis does appear abnormal Follow urine culture and sensitivity Ceftriaxone given in ED History of Present Illness Chief Complaint: The patient presents to the emergency department with complaint of an exacerbation of her ongoing diarrhea and abdominal pain that began around 11:00 last evening. Primary Care Provider: Reza Cid MD The patient is a 66-year-old female with a past medical history including primary hyperparathyroidism, BPPV, SNHL bilaterally, hyperlipidemia, hypertension, liver 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, elevated bilirubin, thrombocytopenia, syncope, epistaxis, GERD, anxiety with depression, hypothyroidism, hypercalcemia, diabetes mellitus type 2 and chronic diarrhea. The patient presents with an acute worsening of her ongoing diarrhea at 11:[address] evening. She reports that over the past few months she has been sleeping up to 20 hours a day, and is unable to get out of bed due to diarrhea causing weakness. She denies any blood in the stool or blood in urine. She does have some intermittent lightheadedness and dizziness. She denies any recent travels or sick exposures. Allergies Allergy/AdvReac Type Severity Reaction Status Date / Time bee venom protein (honey bee) Allergy Severe Anaphylaxis Verified 07/15/21 08:54 Influenza Virus Vaccines Allergy Severe Anaphylaxis Verified 07/15/21 08:54 tetracycline AdvReac Severe Severe Verified 07/15/21 08:54 stomach pains Home Medications Medication Instructions Recorded Confirmed Type omeprazole 40 mg capsule,delayed 40 mg PO QDL 08/03/18 07/15/21 History release paroxetine HCl 20 mg tablet 20 mg PO QAM 04/17/19 07/15/21 History multivit,Ca,baq-mdhs-NM-guarana-caff 1 tab PO HS 11/30/19 07/15/21 History 18 mg iron-400 mcg-180 mg tablet (One-A-Day Women's Active) rosuvastatin 20 mg tablet (Crestor) 20 mg PO HS tab 12/28/19 07/15/21 History potassium chloride 20 mEq 20 meq PO BID #60 tab 09/23/20 07/15/21 Rx tablet,extended release(part/cryst) (Klor-Con M) blood sugar diagnostic (OneTouch 11/12/20 06/17/21 History Verio test strips) zolpidem 5 mg tablet 5 mg PO HS 03/12/21 07/15/21 History levothyroxine 100 mcg tablet 100 mcg PO .COMPLEX #30 tab 03/26/21 07/15/21 Rx valacyclovir 1 gram tablet 1 mg PO BID PRN 04/16/21 07/15/21 History levothyroxine 112 mcg tablet 112 mcg PO .COMPLEX #45 tab 05/19/21 07/15/21 Rx chlorthalidone 25 mg tablet 25 mg PO DAILY #90 tab 05/29/21 07/15/21 Rx lorazepam 1 mg tablet 1 mg PO DAILY PRN 05/29/21 07/15/21 History metformin 500 mg tablet 1,000 mg PO BID tab 05/29/21 07/15/21 History propranolol 20 mg tablet 100 mg PO DAILY tab 05/29/21 07/15/21 History FreeStyle Lisy 2 Sensor (flash #2 ea NS 06/17/21 06/17/21 Rx glucose sensor) cinacalcet 30 mg tablet 30 mg PO DAILY 06/17/21 07/15/21 History dulaglutide 3 mg/0.5 mL 3 mg SUBCUT .weekly 90 Days #6 ml 06/19/21 07/15/21 Rx subcutaneous pen injector Crestor 20 mg PO QAM 07/15/21 07/15/21 History sdsgkqsa-vqo-ehulx ac 400 1 tab PO HS 07/15/21 07/15/21 History mcg-calcium carb 500 mg-vit K1 20 mcg tablet (Women's 50 Plus Multivitamin) Past Med/Surg History Medical History (Updated 07/15/21 @ 12:36 by Bernardo Vences MD) Anemia Anxiety and depression Arthritis Moeller's esophagus with esophagitis Chronic diarrhea Colitis Diabetes mellitus, type 2 Diverticulitis of sigmoid colon Diverticulosis GERD (gastroesophageal reflux disease) GI bleed RECENT HOSPITALIZED Heel spur B/L feet Hiatal hernia History of kidney stones Hyperlipidemia Hypertension NO CURRENT MEDS Hypothyroidism 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 Nephrolithiasis Primary hyperparathyroidism Spleen enlarged Stucco keratoses Temporomandibular joint disorder NO LOCKING/WEARS ROLLER PNEUMATIC Surgical History H/O thumb surgery RT/LEFT JOINT REPAIR H/O total hysterectomy History of appendectomy History of arthroscopy of knee Left Knee - meniscus/cartilage History of colonoscopy History of cystoscopy History of esophagogastroduodenoscopy (EGD) History of tonsillectomy and adenoidectomy History of tooth extraction Hx of cholecystectomy Family History Brother Coronary heart disease Heart disease Mother Family history of diabetes mellitus Hypertension Heart disease Sister Family history of diabetes mellitus Son Family history of diabetes mellitus Father Family hx of colon cancer Hearing loss Hypertension Cancer Heart disease Grandfather (Maternal) Family hx of colon cancer Other No family history of adverse response to anesthesia No family history of bleeding disorder Social History Smoking Status: Former smoker Second Hand Exposure: No; Hx Alcohol Use: No Hx Substance Use: No Preferred Language: [place]er Communication Ability: Effective Die Setter Required: No Beliefs That Will Affect Care: None marital status: Current Living Situation: Spouse Current Living Situation Comment: and sister current occupational status: employed and retired Feels Safe at Home: Yes Assistive Devices: Glasses Review of Systems Review of Systems: The patient denies chest pain, palpitations, shortness of breath, dyspnea on exertion, cough, lower extremity swelling, sore throat, fevers, chills, sweats, vomiting, blood in urine or stool, dysuria, urinary frequency or urgency, headache, memory loss, loss of consciousness, rash, abnormal bruising or bleeding, focal weakness, numbness or tingling in arms or legs, generalized arthralgias or myalgias, neck pain, or night sweats. The review of systems is otherwise negative other than for that already noted above, and at least 10 systems have been reviewed. Physical Exam Physical Exam: The patient is awake, alert and oriented 3, well developed and well nourished, normocephalic and atraumatic, lying in bed and in no acute distress. HEENT--PERRL, EOMI, mucous membranes and oropharynx dry. Neck--supple. No JVD. No bruits. Thyroid normal, trachea midline, no adenopathy. Heart--normal S1 and S2. No murmurs, rubs or gallops. Lungs--clear bilaterally, no respiratory distress, no accessory muscle use. Abdomen--normal bowel sounds and soft. Nontender. Nondistended, no hernias or masses, no organomegaly. Extremities--no cyanosis or clubbing. No edema. Dermatologic--normal skin turgor, normal color, no abnormal lymph nodes, no rash. Neurologic--cranial nerves II through XII grossly intact. Rheumatologic--normal range of motion. Psychiatric--normal affect. Results & Data Results & Data ([facility]) Vital Signs (Past 12 Hours) Vital Signs Temp Pulse Pulse Resp BP BP Pulse Ox 07/15/21 11:30 78 13 124/56 L 93 07/15/21 10:30 82 17 138/52 L 96 07/15/21 09:17 79 13 134/64 96 07/15/21 08:16 36.6 C 87 18 133/70 96 Laboratory Results Laboratory Results WBC 8.26 K/uL (4.8-10.8) 07/15/21 09:10 RBC 3.86 M/uL (4.2-5.4) L 07/15/21 09:10 Hgb 12.6 g/dL (12.0-16.0) 07/15/21 09:10 Hct 36.2 % (37-47) L 07/15/21 09:10 MCV 93.8 fL (80-100) 07/15/21 09:10 MCH 32.6 pg (25-34) 07/15/21 09:10 MCHC 34.8 g/dL (32-36) 07/15/21 09:10 RDW Std Deviation 53.0 fL (36.4-46.3) H 07/15/21 09:10 RDW Coeff of Charlee 15.4 % (11.5-14.5) H 07/15/21 09:10 Plt Count 149 K/uL (130-400) 07/15/21 09:10 MPV 8.9 fL (7.4-10.4) 07/15/21 09:10 Immature Gran % (Auto) 0.5 % 07/15/21 09:10 Neut % (Auto) 48.3 % 07/15/21 09:10 Lymph % (Auto) 32.8 % 07/15/21 09:10 [place] % (Auto) 14.5 % 07/15/21 09:10 Eos % (Auto) 3.5 % 07/15/21 09:10 Baso % (Auto) 0.4 % 07/15/21 09:10 Neut # (Auto) 3.99 K/uL (1.4-6.5) 07/15/21 09:10 Lymph # (Auto) 2.71 K/uL (1.2-3.4) 07/15/21 09:10 [place] # (Auto) 1.20 K/uL (0.11-0.59) H 07/15/21 09:10 Eos # (Auto) 0.29 K/uL (0-0.5) 07/15/21 09:10 Baso # (Auto) 0.03 K/uL (0-0.2) 07/15/21 09:10 Immature Gran # (Auto) 0.04 K/uL (0.00-0.02) H 07/15/21 09:10 PT 12.5 Seconds (9.0-12.0) H 07/15/21 09:10 INR 1.2 (0.9-1.1) H 07/15/21 09:10 Sodium 138 mmol/L (136-145) 07/15/21 09:10 Potassium 3.2 mmol/L (3.5-5.1) L 07/15/21 09:10 Chloride 100 mmol/L (98-107) 07/15/21 09:10 Carbon Dioxide 27 mmol/L (21-32) 07/15/21 09:10 Anion Gap 11 (3-11) 07/15/21 09:10 BUN 21 mg/dl (6-23) 07/15/21 09:10 Creatinine 1.06 mg/dl (0.6-1.2) 07/15/21 09:10 Est Cr Clr Drug Dosing 48.3 ml/min 07/15/21 09:10 Est GFR ( Amer) 62.5 ml/min 07/15/21 09:10 Est GFR (Non-Af Amer) 53.9 ml/min 07/15/21 09:10 BUN/Creatinine Ratio 19.8 (10-20) 07/15/21 09:10 Glucose 133 mg/dl (70-99(Fasting)) H 07/15/21 09:10 Calcium 10.3 mg/dl (8.5-10.1) H 07/15/21 09:10 Phosphorus 2.6 mg/dl (2.5-4.9) 07/15/21 09:10 Magnesium 1.2 mg/dl (1.7-2.4) L 07/15/21 09:10 Total Bilirubin 4.0 mg/dl (0.2-1.0) H 07/15/21 09:10 Direct Bilirubin 0.9 mg/dl (0-0.2) H 07/15/21 09:10 AST 43 U/L (13-39) H 07/15/21 09:10 ALT 24 U/L (7-52) 07/15/21 09:10 Alkaline Phosphatase 164 U/L (34-104) H 07/15/21 09:10 Troponin I High Sens 12.6 pg/ml (0-14) 07/15/21 09:10 Total Protein 6.5 gm/dl (6.0-8.3) 07/15/21 09:10 Albumin 4.0 gm/dl (3.4-5.0) 07/15/21 09:10 Globulin 2.5 gm/dl (2.5-4.0) 07/15/21 09:10 Albumin/Globulin Ratio 1.6 (0.9-2) 07/15/21 09:10 Lipase 212 U/L (11-82) H 07/15/21 09:10 Procalcitonin 0.07 ng/ml (0-0.5) 07/15/21 09:10 Urine Color Yellow 07/15/21 09:52 Urine Appearance Clear (Clear) 07/15/21 09:52 Urine pH 6.5 (4.5-7.5) 07/15/21 09:52 Ur Specific [place] 1.017 (1.000-1.030) 07/15/21 09:52 Urine Protein 2+ (Negative) H 07/15/21 09:52 Urine Glucose (UA) Negative (Negative) 07/15/21 09:52 Urine Ketones Negative (Negative) 07/15/21 09:52 Urine Blood Trace (Negative) H 07/15/21 09:52 Urine Nitrite Negative (Negative) 07/15/21 09:52 Urine Bilirubin Negative (Negative) 07/15/21 09:52 Urine Urobilinogen Positive (Negative) H 07/15/21 09:52 Ur Leukocyte Esterase 2+ (Negative) H 07/15/21 09:52 Urine WBC (Auto) >30 /hpf (0-5) H 07/15/21 09:52 Urine RBC (Auto) 5-10 /hpf (0-4) H 07/15/21 09:52 U Hyaline Cast (Auto) 1-5 /lpf (0-5) 07/15/21 09:52 U Epithel Cells (Auto) 20-30 /lpf (0-5) H 07/15/21 09:52 Urine Bacteria (Auto) 4+ (Negative) H 07/15/21 09:52 SARS-CoV-2 (PCR) NEGATIVE (Negative) 07/15/21 09:10 Influenza Type A (PCR) Negative (Neg) 07/15/21 09:10 Influenza Type B (PCR) Negative (Neg) 07/15/21 09:10 RSV (RT-PCR) Negative (Neg) 07/15/21 09:10 Impressions Abdomen/Pelvis CT 07/15/21 08:[address] WITH IV CONTRAST CT DOSE: 507.87 mGy.cm HISTORY: Acute nausea and vomiting with left lower quadrant abdominal pain N/V/D, LLQ pain TECHNIQUE: Multiaxial CT images of the abdomen and pelvis were performed following the IV administration of 95 cc of Optiray, A dose lowering technique was utilized adhering to the principles of ALARA. COMPARISON STUDY: CT abdomen and pelvis 05/20/2021, 03/12/2021. FINDINGS: Cardiomegaly. Asymmetric densities of the inferior central left breast. Mild subsegmental bibasilar atelectasis. There is no pneumatosis or pneumoperitoneum. Spleen is enlarged measuring up to 18 cm in length. Unremarkable adrenal glands. Prominence of the pericolonic duct measuring up to 4-5 mm is similar to prior. No obstructing pancreatic stone or lesion identified. Cholecystectomy with intrahepatic and extrahepatic biliary ductal dilation, likely postsurgical. Cirrhotic morphology of the liver. Patency of the portal vein. No hepatic mass identified. 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 Unremarkable kidneys. No hydronephrosis. Urinary bladder wall thickening with partial distention and perivesicular stranding. Hysterectomy. Atherosclerosis of the aorta. Unchanged prominent retroperitoneal lymph nodes measuring up to 9 mm with mild adjacent inflammatory changes. Nonspecific mild distal esophageal wall thickening. Wall thickening of the distal stomach is likely secondary to partial distention. There is a large duodenal diverticulum. Indeterminate soft tissue nodule within the left pericolic gutter on image 261 is unchanged, possibly a small lymph node. The appendix is air and fluid-filled and measures up to 9 mm, similar to the prior study. Mild wall thickening of the cecum may be secondary to partial distention. Colonic diverticulosis. Mild inflammatory stranding is noted within the abdominal left lower quadrant adjacent to the sigmoid colon and urinary bladder. Unremarkable soft tissues. Degenerative changes of the spine, pelvis and hips. Progressively worsened subacute L4 superior endplate compression deformity with 40% vertebral body height loss and 3 mm retropulsion. IMPRESSION: 1. No bowel obstruction or pneumoperitoneum. 2. Cirrhotic liver disease with stigmata of portal venous hypertension. 3. Urinary bladder wall thickening with partial distention and mild perivesicular stranding. Correlate with urinalysis to exclude cystitis. 4. Unchanged dilation of the appendix. No definite CT evidence of acute appendicitis. 5. Moderate subacute L4 superior endplate compression deformity with minimal retropulsion. 6. Colonic diverticulosis. ACT 112: Negative or not required by law. The above report was generated using voice recognition software. It may contain grammatical, syntax or spelling errors. Electronically signed by: Caleb Shearer M.D. 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 Hypokalemia E87.6 Hypomagnesemia E83.42 GERD (gastroesophageal reflux disease) K21.9 Esophagitis presence: esophagitis presence not specified Anxiety and depression F41.9; F32.9 Hypothyroidism E03.9 Hypothyroidism type: unspecified Diabetes mellitus, type 2 E11.9 Chronic diarrhea K52.9 Moeller's esophagus with esophagitis K22.70; K20.9 Fracture of fourth lumbar vertebra S32.049A UTI (urinary tract infection) N39.0 (1) Hyperlipidemia Hyperlipidemia type: unspecified Qualified Code(s): E78.5 - Hyperlipidemia, unspecified (2) Hypertension Hypertension type: primary hypertension Qualified Code(s): I10 - Essential (primary) hypertension (3) GERD (gastroesophageal reflux disease) Esophagitis presence: esophagitis presence not specified Qualified Code(s): K21.9 - Gastro-esophageal reflux disease without esophagitis (4) Hypothyroidism Hypothyroidism type: unspecified Qualified Code(s): E03.9 - Hypothyroidism, unspecified
[2021-07-15] MEDS ORDERED: DEXTROSE 50% 50 ML SYRINGE IV PRN (16:42)
[2021-07-15] MEDS ORDERED: LORazepam 1 MG TAB PO PRN (16:42)
[2021-07-15] MEDS ORDERED: GLUCOSE 40% GEL 15 GM TUBE PO PRN (16:42)
[2021-07-15] MEDS ORDERED: GLUCAGON FOR INJ 1 MG VIAL SQ PRN (16:42)
[2021-07-15] MEDS ORDERED: CARBOHYDRATES FOR HYPOGLYCEMIA PO PRN (16:42)
[2021-07-15] MEDS ORDERED: GLUCOSE 10 TABS/TUBE PO PRN (16:42)
[2021-07-15] MEDS ORDERED: CHOLESTYRAMINE LIGHT 4 GM PKT PO ONE (17:00)
[2021-07-15] MEDS: INSULIN ASPART PER UNIT SC SCH ×2 (17:51→21:00)
[2021-07-15] MEDS: NSS + 20MEQ KCL 20 MEQ/1,000 ML BAG IV SCH (17:52)
[2021-07-15] MEDS: cefTRIAXone SODIUM 1,000 MG in DEXTROSE 5% 50 ML IV SCH (17:52)
[2021-07-15] MEDS ORDERED: KETOROLAC TROMETHAMINE 15 MG/ML VIAL IV ONE (20:38)
[2021-07-15] MEDS ORDERED: ZOLPIDEM TARTRATE 5 MG TAB PO SCH (21:00)
[2021-07-15] MEDS: POTASSIUM CHLORIDE CRTAB 20 MEQ TABCR PO SCH (21:07)
[2021-07-15] MEDS: ROSUVASTATIN CALCIUM 20 MG TAB PO SCH (21:08)
[2021-07-15] MEDS: MULTIVITAMIN TAB PO SCH (21:08)
[2021-07-15] MEDS: FAMOTIDINE 20 MG in SYRINGE 3 ML IV SCH (21:08)
[2021-07-16] MEDS: NSS + 20MEQ KCL 20 MEQ/1,000 ML BAG IV SCH (04:00)
[2021-07-16] MEDS: LEVOTHYROXINE SODIUM 100 MCG TABLET PO SCH (05:38)
[2021-07-16 06:13] LABS: Hematocrit (blood only) 31.8 % (37-47); Hemoglobin 10.9 g/dL (12.0-16.0); Mean Corpuscular Hgb Conc 34.3 g/dL (32-36); Mean Corpuscular Volume 93.3 fL (80-100); RDW Standard Deviation 54.5 fL (36.4-46.3); Red Blood Count 3.41 M/uL (4.2-5.4); White Blood Count 5.26 K/uL (4.8-10.8)
[2021-07-16 06:24] LABS: INR 1.3 (0.9-1.1); Partial Thromboplastin Ratio 1.1; Prothrombin Time 13.2 Seconds (9.0-12.0)
[2021-07-16 06:34] LABS: Albumin Globulin Ratio 1.6 (0.9-2); Albumin Level 3.2 gm/dl (3.4-5.0); BUN Creatinine Ratio 16.5 (10-20); Bilirubin,Total 2.4 mg/dl (0.2-1.0); Calcium 9.5 mg/dl (8.5-10.1); Est GFR (African American) 53.2 ml/min; Est GFR (Non-African American) 45.9 ml/min; Magnesium 1.6 mg/dl (1.7-2.4); Total Protein 5.2 gm/dl (6.0-8.3)
[2021-07-16 06:51] LABS: Mean Platelet Volume 8.5 fL (7.4-10.4); Platelet Count 92 K/uL (130-400)
[2021-07-16 07:22] LABS: Basophils # (auto) 0.02 K/uL (0-0.2); Basophils % (auto) 0.4 %; Eosinophils # (auto) 0.29 K/uL (0-0.5); Eosinophils % (auto) 5.5 %; Immature Granulocytes # (auto) 0.02 K/uL (0.00-0.02); Immature Granulocytes % (auto) 0.4 %; Lymphocytes # (auto) 1.61 K/uL (1.2-3.4); Lymphocytes % (auto) 30.6 %; Monocytes # (auto) 1.06 K/uL (0.11-0.59); Monocytes % (auto) 20.2 %; Neutrophils # (auto) 2.26 K/uL (1.4-6.5); Neutrophils % (auto) 42.9 %; Platelet Estimate Decreased (Normal)
[2021-07-16 07:24] LABS: Estimated Average Glucose 148 mg/dl; Hemoglobin A1C 6.8 % (4.5-5.6)
[2021-07-16] MEDS: PARoxetine HCL 20 MG TAB PO SCH (08:43)
[2021-07-16] MEDS: CINACALCET HCL 30 MG TAB PO SCH (08:43)
[2021-07-16] MEDS: POTASSIUM CHLORIDE CRTAB 20 MEQ TABCR PO SCH ×2 (08:43→21:14)
[2021-07-16] MEDS: PROPRANOLOL HCL 60 MG LA CAP PO SCH (08:44)
[2021-07-16] MEDS: INSULIN ASPART PER UNIT SC SCH ×4 (08:45→21:56)
[2021-07-16] MEDS: FAMOTIDINE 20 MG in SYRINGE 3 ML IV SCH ×2 (08:47→21:14)
--- NOTE | 2021-07-16 08:47 | Gastrointestinal Consultation ---
Date of Consultation July 16, 2021 Assessment & Plan (1) Chronic diarrhea: Chronic diarrhea: Patient has chronic diarrhea. Diarrhea has worsened in the last several weeks. Stool testing is pending - does not appear sample was collected by nursing. Would recommend obtaining stool for testing as ordered. Trial of cholestyramine per hospitalist. Agree with holding metformin. Also agree with trial of Creon for pancreatic insufficiency. Continue supportive care measures Cirrhosis secondary to DAILY: h/o liver cirrhosis managed by outpatient GI Moeller's esophagus: h/o Moeller's esophagus managed by outpatient GI. PPI changed to famotidine during admission Nausea and vomiting: Patient has been experiencing nausea and vomiting. This is gone along with her worsening diarrhea. Hypokalemia and hypomagnesemia on admission. Replacement being managed by hospitalist. Recommend supportive care measures by hospitalist. Patient case reviewed with Dr. Jamil. Please refer to supervising physician addendum for further recommendations. I have spent 45 minutes of discrete time performing the activities of this visit which include but are not limited to review of the medical record, obtaining a history, physical exam, and entering information in the electronic record. (2) Moeller's esophagus with esophagitis: (3) Liver cirrhosis secondary to DAILY: (4) Intractable nausea and vomiting: Supervising Physician Co-Signing Physician Notes I interviewed the patient and her spouse and examined the patient and reviewed the medical record, with the following observations: Subjective: Ms. Kurtz states that she has had intractable diarrhea for 3-4 years with >6 bowel movements daily with urgency and incontinence episodes, loose and watery stools ([place] type 5-7), and associated severe lower abdom inal pain. She states she has been evaluated for this with no firm diagnosis or successful treatment recommended. Last colonoscopy was 1 year ago, the record is not available here to review. She has not had a bowel movement since admission to the hospital, diet has been very limited but not fasting. She is afraid to eat due to postprandial episodes of urgency, diarrhea, abdominal pain. She frequently has urgency and passes mucus with no associated stool Physical Examination: obese, protuberant abdomen with hyperactive bowel sounds. scars from cholecystectomy and hysterectomy, no localized guarding, tenderness, rebound, no detectable ascites, no hepatosplenomegaly Chart Review: CT abdomen and pelvis with IV but not oral contrast shows changes associated with hepatic cirrhosis and portal hypertension, bladder wall thickening compatible with cystitis (and urine culture positive for gm negative rods) and a little fat stranding adjacent to the bladder and sigmoid colon on the left, diverticulosis but no overt diverticulitis noted. I agree with the assessment as outlined in this consultation, with the following observations: The diarrhea has completely stopped with reduced, limited oral intake and withdrawal of some medications (metformin and PPI). There is evidence for an acute urinary tract infection. Stool studies not submitted due to absence of any bowel movements. I agree with the plan of care as outlined in this consultation, with the following changes and/or additions: I agree with the plan of care as outlined by Dr. Montiel and NAHEED Baker. Further recommendations to follow outpatient records review. As the supervising physician, I have spent 30 minutes of discrete time performing the activities of this consultation which include, but are not limi kailyn to, review of the medical record, obtaining a history, physical examination, and entering information into the electronic record. NAHEED Baker, has reported spending minutes of discrete time with the activities of the consultation. History of Present Illness Attending Physician: Kristel Montiel MD History of Present Illness The patient is a pleasant 66-year-old female with a past medical history to include primary hyperparathyroidism, BPPV, SNHL bilaterally, hyperlipidemia, hypertension, liver cirrhosis secondary to DAILY, elevated bilirubin, thrombocytopenia, syncope, epistaxis, GERD, anxiety with depression, hypothyroidism, hypercalcemia, diabetes mellitus type 2 and chronic diarrhea scented to the emergency department 07/15/2021 due to complaints of worsening diarrhea with weakness, dizziness, abdominal pain, fatigue. She was subsequently admitted for further management of symptoms. The GI service was consulted due to patient findings of diarrhea, hypokalemia, hypomagnesemia noted to the GI service due to diagnosis of cirrhosis. Prior records are reviewed: 03/25/2021: GI office visit notes are reviewed from Dr. García for chief complaint of cirrhosis likely from DAILY, history of Moeller's esophagus, personal history of polyps and family history of colorectal cancer, esophageal varices. Plan to continue labs CBC, CMP, PT every 6 months with ultrasound and AFP every 6 months for HCC screening. Needs repeat EGD 01/2022 plan to continue PPI. Colonoscopy next due 07/2025 health permitting. 11/07/2020: Hepatology clinic office visit notes from [facility] are reviewed for evaluation of hepatic cirrhosis, hepatic encephalopathy likely from Daily. Disease moderately well compensated at time of evaluation. No recommendation for liver transplant at this time. Recommend EGD every 2 to 3 years for screening of esophageal varices. Absolute avoidance of alcohol, NSAIDs, herbal medications. Less than 2 g of Tylenol. Avoid supplemental iron. Follow a low-fat, low-salt, cardiac prudent diet. Vaccinate for hepatitis a and B if not completed. HCC surveillance due 03/202108/02/2020: Colonoscopy notes reviewed and demonstrated nonbleeding internal hemorrhoids. There were no specimens collected. Recommend repeat colonoscopy in 5 years (07/2025) 05/21/2020: EGD notes reviewed performed due to history of cirrhosis demonstrated grade 1 esophageal varices. There was a regular Z-line found 38 cm from the incisors. Evidence of portal hypertensive gastropathy. Normal examined duodenum. There were no specimens collected. On exam/interview today, the patient reports that she is feeling better but still does not feel back to her baseline. She reports at home over the last week and a half she has had acute on chronic diarrhea. She states she is having bowel movements up to 10-12 times per day. She states she is weak, dizzy, has decreased appetite, having severe lower abdominal pain, energy is decreased, and she is fatigued. She feels as though her belly is distended. She states she then began having several episodes of vomiting that were primarily bile and small amounts. She denies any fever, chills, night sweats. Denies any unintentional weight loss. 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 She denies any current dysphagia. She does have a history of heartburns and Moeller's esophagus. She has maintained on omeprazole. She states heartburn or reflux symptoms have been worse for the last week and she has had to be propped up in bed to sleep. Denies any current use of aspirin or NSAIDs. Reports some intermittent nausea. Reports poor appetite. Reports bilateral lower abdominal pain that is severe in intensity. She denies any improvement in symptoms with bowel movement. She does state heating pad is somewhat helpful for symptoms. She reports stools have been quite dark but is not sure if they have been black. She denies any bright red bleeding with stool. She is a lifetime non-smoker. Denies alcohol intake. Denies recreational drug use including marijuana. 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 She is with no children. Allergies Allergy/AdvReac Type Severity Reaction Status Date / Time bee venom protein (honey bee) Allergy Severe Anaphylaxis Verified 07/15/21 08:54 Influenza Virus Vaccines Allergy Severe Anaphylaxis Verified 07/15/21 08:54 tetracycline AdvReac Severe Severe Verified 07/15/21 08:54 stomach pains Home Medications Medication Instructions Recorded Confirmed Type omeprazole 40 mg capsule,delayed 40 mg PO QDL 08/03/18 07/15/21 History release paroxetine HCl 20 mg tablet 20 mg PO QAM 04/17/19 07/15/21 History multivit,Ca,mdd-svyk-QC-guarana-caff 1 tab PO HS 11/30/19 07/15/21 History 18 mg iron-400 mcg-180 mg tablet (One-A-Day Women's Active) rosuvastatin 20 mg tablet (Crestor) 20 mg PO HS tab 12/28/19 07/15/21 History potassium chloride 20 mEq 20 meq PO BID #60 tab 09/23/20 07/15/21 Rx tablet,extended release(part/cryst) (Klor-Con M) blood sugar diagnostic (OneTouch 11/12/20 06/17/21 History Verio test strips) zolpidem 5 mg tablet 5 mg PO HS 03/12/21 07/15/21 History levothyroxine 100 mcg tablet 100 mcg PO .COMPLEX #30 tab 03/26/21 07/15/21 Rx valacyclovir 1 gram tablet 1 mg PO BID PRN 04/16/21 07/15/21 History levothyroxine 112 mcg tablet 112 mcg PO .COMPLEX #45 tab 05/19/21 07/15/21 Rx chlorthalidone 25 mg tablet 25 mg PO DAILY #90 tab 05/29/21 07/15/21 Rx lorazepam 1 mg tablet 1 mg PO DAILY PRN 05/29/21 07/15/21 History metformin 500 mg tablet 1,000 mg PO BID tab 05/29/21 07/15/21 History propranolol 20 mg tablet 100 mg PO DAILY tab 05/29/21 07/15/21 History FreeStyle Lisy 2 Sensor (flash #2 ea NS 06/17/21 06/17/21 Rx glucose sensor) cinacalcet 30 mg tablet 30 mg PO DAILY 06/17/21 07/15/21 History dulaglutide 3 mg/0.5 mL 3 mg SUBCUT .weekly 90 Days #6 ml 06/19/21 07/15/21 Rx subcutaneous pen injector Crestor 20 mg PO QAM 07/15/21 07/15/21 History dkjquoif-fxb-wthvv ac 400 1 tab PO HS 07/15/21 07/15/21 History mcg-calcium carb 500 mg-vit K1 20 mcg tablet (Women's 50 Plus Multivitamin) Patient History Medical History Abnormal finding on breast imaging Anemia Anxiety and depression Arthritis Moeller's esophagus with esophagitis Chronic diarrhea Colitis Diabetes mellitus, type 2 Diverticulitis of sigmoid colon Diverticulosis GERD (gastroesophageal reflux disease) GI bleed RECENT HOSPITALIZED Heel spur B/L feet Hiatal hernia History of kidney stones Hyperlipidemia Hypertension NO CURRENT MEDS Hypothyroidism Liver cirrhosis secondary to DAILY Nephrolithiasis Primary hyperparathyroidism Spleen enlarged Stucco keratoses Temporomandibular joint disorder 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 Surgical History H/O thumb surgery RT/LEFT JOINT REPAIR H/O total hysterectomy History of appendectomy History of arthroscopy of knee Left Knee - meniscus/cartilage History of colonoscopy History of cystoscopy History of esophagogastroduodenoscopy (EGD) History of tonsillectomy and adenoidectomy History of tooth extraction Hx of cholecystectomy Family History Brother Coronary heart disease Heart disease Mother Family history of diabetes mellitus Hypertension Heart disease Sister Family history of diabetes mellitus Son Family history of diabetes mellitus Father Family hx of colon cancer Hearing loss Hypertension Cancer Heart disease Grandfather (Maternal) Family hx of colon cancer Other No family history of adverse response to anesthesia No family history of bleeding disorder Social History Smoking Status: Former smoker Second Hand Exposure: No; Hx Alcohol Use: No Hx Substance Use: No Preferred Language: Lao Communication Ability: Effective Market Manager Required: No Beliefs That Will Affect Care: None marital status: Current Living Situation: Spouse Current Living Situation Comment: and sister current occupational status: employed and retired How many Children do You have: 0 Feels Safe at Home: Yes Assistive Devices: Cane, Crutches and Walker Review of Systems Review of Systems: All systems reviewed & are unremarkable except as noted in Subjective Physical Exam Constitutional: + ill appearing; no acute distress Eyes: PERRL, conjunctivae normal, anicteric sclerae ENMT: Nose: no external nose abnormality Neck: normal visual inspection Respiratory: normal respiratory effort; no respiratory distress and no labored breathing Cardiovascular: Rate/Rhythm: regular rate and regular rhythm Gastrointestinal (Abdomen): Inspection/Auscultation: abdomen normal to inspection and normal bowel sounds; abdomen not distended Percussion/Palpation: abdomen soft, + hepatomegaly, + dullness to percussion and + tympanic to percussion; abdomen nontender, no guarding and abdomen not rigid Musculoskeletal: Head/Neck/Chest: normocephalic Skin: no rashes, warm and dry Neurologic: PERRL, EOMI, accommodation nl, no face palsy, no dysarthria Psychiatric: A+Ox3, euthymic affect Results & Data ([facility]) Vital Signs (Past 12 Hours) Vital Signs Temp Pulse Pulse Resp BP BP Pulse Ox 07/16/21 07:16 77 07/16/21 07:04 36.7 C 77 20 108/66 94 07/16/21 04:56 36.6 C 79 16 119/66 92 07/16/21 03:45 36.6 C 75 20 117/63 94 07/15/21 23:00 36.7 C 75 20 115/68 93 07/15/21 22:17 77 Laboratory Results Laboratory Results - last 24 hr 07/15/21 07/15/21 07/15/21 09:10 09:10 09:10 WBC 8.26 RBC 3.86 L Hgb 12.6 Hct 36.2 L MCV 93.8 MCH 32.6 MCHC 34.8 RDW Std Deviation 53.0 H RDW Coeff of Charlee 15.4 H Plt Count 149 MPV 8.9 Immature Gran % (Auto) 0.5 Neut % (Auto) 48.3 Lymph % (Auto) 32.8 [place] % (Auto) 14.5 Eos % (Auto) 3.5 Baso % (Auto) 0.4 Neut # (Auto) 3.99 Lymph # (Auto) 2.71 [place] # (Auto) 1.20 H Eos # (Auto) 0.29 Baso # (Auto) 0.03 Immature Gran # (Auto) 0.04 H Platelet Estimate PT 12.5 H INR 1.2 H APTT PTT Ratio Sodium Potassium Chloride Carbon Dioxide Anion Gap BUN Creatinine Est Cr Clr Drug Dosing Est GFR ( Amer) Est GFR (Non-Af Amer) BUN/Creatinine Ratio Glucose POC Glucose Estimat Average Glucose Hemoglobin A1c Lactate Calcium Phosphorus Magnesium Total Bilirubin Direct Bilirubin AST ALT Alkaline Phosphatase Troponin I High Sens 12.6 Total Protein Albumin Globulin Albumin/Globulin Ratio Lipase Procalcitonin Urine Color Urine Appearance Urine pH Ur Specific [place] Urine Protein Urine Glucose (UA) Urine Ketones Urine Blood Urine Nitrite Urine Bilirubin Urine Urobilinogen Ur Leukocyte Esterase Urine WBC (Auto) Urine RBC (Auto) U Hyaline Cast (Auto) U Epithel Cells (Auto) Urine Bacteria (Auto) SARS-CoV-2 (PCR) Influenza Type A (PCR) Influenza Type B (PCR) RSV (RT-PCR) 07/15/21 07/15/21 07/15/21 09:10 09:10 09:10 WBC RBC Hgb Hct MCV MCH MCHC RDW Std Deviation RDW Coeff of Charlee Plt Count MPV Immature Gran % (Auto) Neut % (Auto) Lymph % (Auto) [place] % (Auto) Eos % (Auto) Baso % (Auto) Neut # (Auto) Lymph # (Auto) [place] # (Auto) Eos # (Auto) Baso # (Auto) Immature Gran # (Auto) Platelet Estimate PT INR APTT PTT Ratio Sodium 138 Potassium 3.2 L Chloride 100 Carbon Dioxide 27 Anion Gap 11 BUN 21 Creatinine 1.06 Est Cr Clr Drug Dosing 48.3 Est GFR ( Amer) 62.5 Est GFR (Non-Af Amer) 53.9 BUN/Creatinine Ratio 19.8 Glucose 133 H POC Glucose Estimat Average Glucose Hemoglobin A1c Lactate Calcium 10.3 H Phosphorus 2.6 Magnesium 1.2 L Total Bilirubin 4.0 H Direct Bilirubin 0.9 H AST 43 H ALT 24 Alkaline Phosphatase 164 H Troponin I High Sens Total Protein 6.5 Albumin 4.0 Globulin 2.5 Albumin/Globulin Ratio 1.6 Lipase 212 H Procalcitonin 0.07 Urine Color Urine Appearance Urine pH Ur Specific [place] Urine Protein Urine Glucose (UA) Urine Ketones Urine Blood Urine Nitrite Urine Bilirubin Urine Urobilinogen Ur Leukocyte Esterase Urine WBC (Auto) Urine RBC (Auto) U Hyaline Cast (Auto) U Epithel Cells (Auto) Urine Bacteria (Auto) SARS-CoV-2 (PCR) NEGATIVE Influenza Type A (PCR) Negative Influenza Type B (PCR) Negative RSV (RT-PCR) Negative 07/15/21 07/15/21 07/15/21 09:52 11:45 14:23 WBC RBC Hgb Hct MCV MCH MCHC RDW Std Deviation RDW Coeff of Charlee Plt Count MPV Immature Gran % (Auto) Neut % (Auto) Lymph % (Auto) [place] % (Auto) Eos % (Auto) Baso % (Auto) Neut # (Auto) Lymph # (Auto) [place] # (Auto) Eos # (Auto) Baso # (Auto) Immature Gran # (Auto) Platelet Estimate PT INR APTT PTT Ratio Sodium Potassium Chloride Carbon Dioxide Anion Gap BUN Creatinine Est Cr Clr Drug Dosing Est GFR ( Amer) Est GFR (Non-Af Amer) BUN/Creatinine Ratio Glucose POC Glucose Estimat Average Glucose Hemoglobin A1c Lactate 3.3 H* 2.7 H* Calcium Phosphorus Magnesium Total Bilirubin Direct Bilirubin AST ALT Alkaline Phosphatase Troponin I High Sens Total Protein Albumin Globulin Albumin/Globulin Ratio Lipase Procalcitonin Urine Color Yellow Urine Appearance Clear Urine pH 6.5 Ur Specific [place] 1.017 Urine Protein 2+ H Urine Glucose (UA) Negative Urine Ketones Negative Urine Blood Trace H Urine Nitrite Negative Urine Bilirubin Negative Urine Urobilinogen Positive H Ur Leukocyte Esterase 2+ H Urine WBC (Auto) >30 H Urine RBC (Auto) 5-10 H U Hyaline Cast (Auto) 1-5 U Epithel Cells (Auto) 20-30 H Urine Bacteria (Auto) 4+ H SARS-CoV-2 (PCR) Influenza Type A (PCR) Influenza Type B (PCR) RSV (RT-PCR) 07/15/21 07/15/21 07/16/21 16:37 20:22 04:55 WBC RBC Hgb Hct MCV MCH MCHC RDW Std Deviation RDW Coeff of Charlee Plt Count MPV Immature Gran % (Auto) Neut % (Auto) Lymph % (Auto) [place] % (Auto) Eos % (Auto) Baso % (Auto) Neut # (Auto) Lymph # (Auto) [place] # (Auto) Eos # (Auto) Baso # (Auto) Immature Gran # (Auto) Platelet Estimate PT INR APTT PTT Ratio Sodium Potassium Chloride Carbon Dioxide Anion Gap BUN Creatinine Est Cr Clr Drug Dosing Est GFR ( Amer) Est GFR (Non-Af Amer) BUN/Creatinine Ratio Glucose POC Glucose 111 H 103 H 125 H Estimat Average Glucose Hemoglobin A1c Lactate Calcium Phosphorus Magnesium Total Bilirubin Direct Bilirubin AST ALT Alkaline Phosphatase Troponin I High Sens Total Protein Albumin Globulin Albumin/Globulin Ratio Lipase Procalcitonin Urine Color Urine Appearance Urine pH Ur Specific [place] Urine Protein Urine Glucose (UA) Urine Ketones Urine Blood Urine Nitrite Urine Bilirubin Urine Urobilinogen Ur Leukocyte Esterase Urine WBC (Auto) Urine RBC (Auto) U Hyaline Cast (Auto) U Epithel Cells (Auto) Urine Bacteria (Auto) SARS-CoV-2 (PCR) Influenza Type A (PCR) Influenza Type B (PCR) RSV (RT-PCR) 07/16/21 07/16/21 07/16/21 05:31 05:31 05:31 WBC 5.26 RBC 3.41 L Hgb 10.9 L Hct 31.8 L MCV 93.3 MCH 32.0 MCHC 34.3 RDW Std Deviation 54.5 H RDW Coeff of Charlee 16.0 H Plt Count 92 L MPV 8.5 Immature Gran % (Auto) 0.4 Neut % (Auto) 42.9 Lymph % (Auto) 30.6 [place] % (Auto) 20.2 Eos % (Auto) 5.5 Baso % (Auto) 0.4 Neut # (Auto) 2.26 Lymph # (Auto) 1.61 [place] # (Auto) 1.06 H Eos # (Auto) 0.29 Baso # (Auto) 0.02 Immature Gran # (Auto) 0.02 Platelet Estimate Decreased L PT 13.2 H INR 1.3 H APTT 30.0 PTT Ratio 1.1 Sodium 139 Potassium 4.0 D Chloride 106 Carbon Dioxide 26 Anion Gap 7 BUN 20 Creatinine 1.21 H Est Cr Clr Drug Dosing 43.0 Est GFR ( Amer) 53.2 Est GFR (Non-Af Amer) 45.9 BUN/Creatinine Ratio 16.5 Glucose 116 H POC Glucose Estimat Average Glucose Hemoglobin A1c Lactate Calcium 9.5 Phosphorus Magnesium 1.6 L Total Bilirubin 2.4 H Direct Bilirubin AST 33 ALT 18 Alkaline Phosphatase 100 Troponin I High Sens Total Protein 5.2 L Albumin 3.2 L Globulin 2.0 L Albumin/Globulin Ratio 1.6 Lipase Procalcitonin Urine Color Urine Appearance Urine pH Ur Specific [place] Urine Protein Urine Glucose (UA) Urine Ketones Urine Blood Urine Nitrite Urine Bilirubin Urine Urobilinogen Ur Leukocyte Esterase Urine WBC (Auto) Urine RBC (Auto) U Hyaline Cast (Auto) U Epithel Cells (Auto) Urine Bacteria (Auto) SARS-CoV-2 (PCR) Influenza Type A (PCR) Influenza Type B (PCR) RSV (RT-PCR) 07/16/21 07/16/21 05:31 07:21 WBC RBC Hgb Hct MCV MCH MCHC RDW Std Deviation RDW Coeff of Charlee Plt Count MPV Immature Gran % (Auto) Neut % (Auto) Lymph % (Auto) [place] % (Auto) Eos % (Auto) Baso % (Auto) Neut # (Auto) Lymph # (Auto) [place] # (Auto) Eos # (Auto) Baso # (Auto) Immature Gran # (Auto) Platelet Estimate PT INR APTT PTT Ratio Sodium Potassium Chloride Carbon Dioxide Anion Gap BUN Creatinine Est Cr Clr Drug Dosing Est GFR ( Amer) Est GFR (Non-Af Amer) BUN/Creatinine Ratio Glucose POC Glucose 124 H Estimat Average Glucose 148 Hemoglobin A1c 6.8 H Lactate Calcium Phosphorus Magnesium Total Bilirubin Direct Bilirubin AST ALT Alkaline Phosphatase Troponin I High Sens Total Protein Albumin Globulin Albumin/Globulin Ratio Lipase Procalcitonin Urine Color Urine Appearance Urine pH Ur Specific [place] Urine Protein Urine Glucose (UA) Urine Ketones Urine Blood Urine Nitrite Urine Bilirubin Urine Urobilinogen Ur Leukocyte Esterase Urine WBC (Auto) Urine RBC (Auto) U Hyaline Cast (Auto) U Epithel Cells (Auto) Urine Bacteria (Auto) SARS-CoV-2 (PCR) Influenza Type A (PCR) Influenza Type B (PCR) RSV (RT-PCR) Diagnostic Findings Abdomen/Pelvis CT 07/15/21 08:[address] WITH IV CONTRAST CT DOSE: 507.87 mGy.cm HISTORY: Acute nausea and vomiting with left lower quadrant abdominal pain N/V/D, LLQ pain TECHNIQUE: Multiaxial CT images of the abdomen and pelvis were performed following the IV administration of 95 cc of Optiray, A dose lowering technique was utilized adhering to the principles of ALARA. COMPARISON STUDY: CT abdomen and pelvis 05/20/2021, 03/12/2021. FINDINGS: Cardiomegaly. Asymmetric densities of the inferior central left breast. Mild subsegmental bibasilar atelectasis. There is no pneumatosis or pneumoperitoneum. Spleen is enlarged measuring up to 18 cm in length. Unremarkable adrenal glands. Prominence of the pericolonic duct measuring up to 4-5 mm is similar to prior. No obstructing pancreatic stone or lesion identified. Cholecystectomy with intrahepatic and extrahepatic biliary ductal dilation, likely postsurgical. Cirrhotic morphology of the liver. Patency of the portal vein. No hepatic mass identified. 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 Unremarkable kidneys. No hydronephrosis. Urinary bladder wall thickening with partial distention and perivesicular stranding. Hysterectomy. Atherosclerosis of the aorta. Unchanged prominent retroperitoneal lymph nodes measuring up to 9 mm with mild adjacent inflammatory changes. Nonspecific mild distal esophageal wall thickening. Wall thickening of the distal stomach is likely secondary to partial distention. There is a large duodenal diverticulum. Indeterminate soft tissue nodule within the left pericolic gutter on image 261 is unchanged, possibly a small lymph node. The appendix is air and fluid-filled and measures up to 9 mm, similar to the prior study. Mild wall thickening of the cecum may be secondary to partial distention. Colonic diverticulosis. Mild inflammatory stranding is noted within the abdominal left lower quadrant adjacent to the sigmoid colon and urinary bladder. Unremarkable soft tissues. Degenerative changes of the spine, pelvis and hips. Progressively worsened subacute L4 superior endplate compression deformity with 40% vertebral body height loss and 3 mm retropulsion. IMPRESSION: 1. No bowel obstruction or pneumoperitoneum. 2. Cirrhotic liver disease with stigmata of portal venous hypertension. 3. Urinary bladder wall thickening with partial distention and mild perivesicular stranding. Correlate with urinalysis to exclude cystitis. 4. Unchanged dilation of the appendix. No definite CT evidence of acute appendicitis. 5. Moderate subacute L4 superior endplate compression deformity with minimal retropulsion. 6. Colonic diverticulosis. ACT 112: Negative or not required by law. The above report was generated using voice recognition software. It may contain grammatical, syntax or spelling errors. Electronically signed by: Caleb Shearer M.D. 07/15/2021 10:53 AM
[2021-07-16] MEDS: MAGNESIUM SULFATE / D5W 1 GM/100 ML BAG IV SCH ×2 (10:25→12:44)
[2021-07-16] MEDS ORDERED: PANTOprazole 40 MG TAB PO SCH (11:30)
[2021-07-16] MEDS: HYDROmorphone INJ 0.5 MG/0.5 ML SYR IV PRN (12:15)
[2021-07-16] MEDS ORDERED: LOPERAMIDE HCL 2 MG CAP PO PRN (12:41)
--- NOTE | 2021-07-16 12:45 | Hospitalist Progress Note ---
Date of Service July 16, 2021 Assessment & Plan (1) Chronic diarrhea: Plan: With years of chronic diarrhea but recently worsened with acute on chronic lower abdominal pain CT abdomen/pelvis consistent with cystitis, chronic shotty retroperitoneal lymphadenopathy, and some stranding in the left lower quadrant adjacent to the sigmoid colon and urinary bladder, no overt diverticulitis Had a colonoscopy approximately 1 year ago that only showed nonbleeding internal hemorrhoids Stool PCR pending as she has not had a bowel movement since admission with reduction in p.o. intake Start trial of cholestyramine 4 g p.o. twice daily Stop metformin and omeprazole as may be contributing to diarrhea Start Imodium as needed She reports that the diarrhea has been disabling and she does not leave her house because of it Can also start Creon but will wait to see if cholestyramine helps first (2) Abdominal pain: Plan: Acute on chronic but seems more consistent with suprapubic pain from UTI at this time Treat UTI and see if abdominal pain improves Add on IV Dilaudid for severe pain, continue Tylenol for mild pain (3) UTI (urinary tract infection): Plan: CT suggestive of possible cystitis, with acute suprapubic pain but no dysuria Urinalysis does appear abnormal Urine culture growing gram-negative rods-pending Continue ceftriaxone (4) Hypomagnesemia: Plan: Magnesium 1.2 upon admission-replaced and still remains low today Give 3 more grams of IV magnesium sulfate Recheck laboratories in a.m. Likely secondary to diarrhea, which may also be complicated by omeprazole, which will be held (5) Fracture of fourth lumbar vertebra: Plan: She does report some pain across her back along the pelvis Report on CT of abdomen/pelvis is subacute with 3 mm retropulsion She has no radiculopathy or weakness Start Dilaudid as needed for moderate to severe pain Consult orthopedic spine surgery appreciated-no brace recommended due to diarrhea, conservative measures, no lifting more than 5 pounds (6) Hypokalemia: Plan: Potassium was low on admission and was replaced-is now normal Continue potassium chloride 20 M EQ p.o. twice daily DC IV fluids with potassium in them Continue to follow BMP (7) Abnormal finding on breast imaging: Plan: With left breast densities noted inferiorly Advised patient she needs diagnostic mammogram and breast ultrasound as an outpatient (8) 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: Plan: With portal hypertension, splenomegaly, varices Continue propranolol She is not on lactulose due to chronic diarrhea Follow with GI routinely She is also seeing hepatology at [place] (9) GERD (gastroesophageal reflux disease): Plan: GERD/Moeller's esophagus- Change omeprazole to famotidine due to diarrhea that could be associated with PPI (10) Hypothyroidism: Plan: Continue levothyroxine 112 mcg daily TSH normal 06/03 (11) Hyperlipidemia: Plan: Continue Crestor 20 mg every morning (12) Diabetes mellitus, type 2: Plan: Hold dulaglutide and metformin Would not restart metformin as may be contributing to diarrhea Place on Accu-Cheks before meals and at bedtime with NovoLog coverage per scale (13) Moeller's esophagus with esophagitis: Plan: Change PPI to H2 roxann (14) Hypertension: Plan: Hold chlorthalidone due to hypokalemia and low normal blood pressures Continue propranolol (15) Primary hyperparathyroidism: Plan: Likely contributing to acute L4 compression fracture Continue cinacalcet (16) Anxiety and depression: Plan: Continue lorazepam, paroxetine and zolpidem but make zolpidem as needed rather than scheduled (17) Thrombocytopenia: Plan: Secondary to hepatosplenomegaly/cirrhosis Follow CBC Plan: DVT prophylaxis-SCDs Disposition-continued stay, consult PT/OT Admission and Anticipated Discharge Date Admission Date: July 15, 2021 Subjective Patient reports no loose stools since admission but has not really eaten much until just now starting to eat lunch. Still having significant lower abdominal pain mostly in the suprapubic region but does radiate both to the left and right lower quadrants but more to the left. No nausea or vomiting. No chest pain or shortness of breath. She is also having lower back pain without radiation down the legs. Telemetry with normal sinus rhythm with rates in the 70s Review of Systems Review of Systems: All systems reviewed & are unremarkable except as noted in HPI & below Physical Exam Constitutional: WD/WN, vitals as above Eyes: + scleral abnormality (Icterus present) ENMT: external ear and nose normal, oropharynx normal Neck: trachea midline, no thyromegaly Respiratory: normal respiratory effort, lungs clear to auscultation Cardiovascular: RRR, no murmur, no edema Chest (Breasts): Chest: normal inspection of chest Gastrointestinal (Abdomen): Inspection/Auscultation: normal bowel sounds; a bdomen not distended Percussion/Palpation: + abdomen tender (in suprapubic region without guarding or rebound), abdomen soft and + hepatosplenomegaly Musculoskeletal: Extremities: extremities normal to inspection; no cyanosis and no clubbing Skin: no rashes, warm and dry Neurologic: moves all extremities and awake; no focal motor deficits Psychiatric: A+Ox3, euthymic affect Lymphatic: no lymphedema Results & Data Results & Data ([facility]) Vital Signs (Past 12 Hours) Vital Signs Temp Pulse Pulse Resp BP BP Pulse Ox 07/16/21 11:35 36.7 C 76 20 104/61 95 07/16/21 07:16 77 07/16/21 07:04 36.7 C 77 20 108/66 94 07/16/21 04:56 36.6 C 79 16 119/66 92 07/16/21 03:45 36.6 C 75 20 117/63 94 Laboratory Results 07/16/21 07/16/21 07/16/21 Range/Units 20:26 20:26 20:17 WBC (4.8-10.8) K/uL RBC (4.2-5.4) M/uL Hgb (12.0-16.0) g/dL Hct (37-47) % MCV (80-100) fL MCH (25-34) pg MCHC (32-36) g/dL RDW Std Deviation (36.4-46.3) fL RDW Coeff of Charlee (11.5-14.5) % Plt Count (130-400) K/uL MPV (7.4-10.4) fL Immature Gran % (Auto) % Neut % (Auto) % Lymph % (Auto) % [place] % (Auto) % Eos % (Auto) % Baso % (Auto) % Neut # (Auto) (1.4-6.5) K/uL Lymph # (Auto) (1.2-3.4) K/uL [place] # (Auto) (0.11-0.59) K/uL Eos # (Auto) (0-0.5) K/uL Baso # (Auto) (0-0.2) K/uL Immature Gran # (Auto) (0.00-0.02) K/uL Platelet Estimate (Normal) PT (9.0-12.0) Seconds INR (0.9-1.1) APTT (21.0-31.0) Seconds PTT Ratio Sodium 140 (136-145) mmol/L Potassium 3.5 (3.5-5.1) mmol/L Chloride 105 (98-107) mmol/L Carbon Dioxide 29 (21-32) mmol/L Anion Gap 6 (3-11) BUN 16 (6-23) mg/dl Creatinine 1.34 H (0.6-1.2) mg/dl Est Cr Clr Drug Dosing 38.9 ml/min Est GFR ( Amer) 47.1 ml/min Est GFR (Non-Af Amer) 40.6 ml/min BUN/Creatinine Ratio 11.9 (10-20) Glucose 139 H (70-99(Fasting)) mg/dl POC Glucose 152 H (70-99) mg/dl Estimat Average Glucose mg/dl Hemoglobin A1c (4.5-5.6) % Calcium 8.8 (8.5-10.1) mg/dl Magnesium 1.8 (1.7-2.4) mg/dl Total Bilirubin 2.2 H (0.2-1.0) mg/dl AST 36 (13-39) U/L ALT 19 (7-52) U/L Alkaline Phosphatase 107 H (34-104) U/L Ammonia 62.0 (18-72) umol/L Total Protein 5.7 L (6.0-8.3) gm/dl Albumin 3.4 (3.4-5.0) gm/dl Globulin 2.3 L (2.5-4.0) gm/dl Albumin/Globulin Ratio 1.5 (0.9-2) Lipase (11-82) U/L 07/16/21 07/16/21 07/16/21 Range/Units 19:47 16:40 11:32 WBC (4.8-10.8) K/uL RBC (4.2-5.4) M/uL Hgb (12.0-16.0) g/dL Hct (37-47) % MCV (80-100) fL MCH (25-34) pg MCHC (32-36) g/dL RDW Std Deviation (36.4-46.3) fL RDW Coeff of Charlee (11.5-14.5) % Plt Count (130-400) K/uL MPV (7.4-10.4) fL Immature Gran % (Auto) % Neut % (Auto) % Lymph % (Auto) % [place] % (Auto) % Eos % (Auto) % Baso % (Auto) % Neut # (Auto) (1.4-6.5) K/uL Lymph # (Auto) (1.2-3.4) K/uL [place] # (Auto) (0.11-0.59) K/uL Eos # (Auto) (0-0.5) K/uL Baso # (Auto) (0-0.2) K/uL Immature Gran # (Auto) (0.00-0.02) K/uL Platelet Estimate (Normal) PT (9.0-12.0) Seconds INR (0.9-1.1) APTT (21.0-31.0) Seconds PTT Ratio Sodium (136-145) mmol/L Potassium (3.5-5.1) mmol/L Chloride (98-107) mmol/L Carbon Dioxide (21-32) mmol/L Anion Gap (3-11) BUN (6-23) mg/dl Creatinine (0.6-1.2) mg/dl Est Cr Clr Drug Dosing ml/min Est GFR ( Amer) ml/min Est GFR (Non-Af Amer) ml/min BUN/Creatinine Ratio (10-20) Glucose (70-99(Fasting)) mg/dl POC Glucose 152 H 124 H 188 H (70-99) mg/dl Estimat Average Glucose mg/dl Hemoglobin A1c (4.5-5.6) % Calcium (8.5-10.1) mg/dl Magnesium (1.7-2.4) mg/dl Total Bilirubin (0.2-1.0) mg/dl AST (13-39) U/L ALT (7-52) U/L Alkaline Phosphatase (34-104) U/L Ammonia (18-72) umol/L Total Protein (6.0-8.3) gm/dl Albumin (3.4-5.0) gm/dl Globulin (2.5-4.0) gm/dl Albumin/Globulin Ratio (0.9-2) Lipase (11-82) U/L 07/16/21 07/16/2107/16/22 Range/Units 07:21 05:31 05:31 WBC (4.8-10.8) K/uL RBC (4.2-5.4) M/uL Hgb (12.0-16.0) g/dL Hct (37-47) % MCV (80-100) fL MCH (25-34) pg MCHC (32-36) g/dL RDW Std Deviation (36.4-46.3) fL RDW Coeff of Charlee (11.5-14.5) % Plt Count (130-400) K/uL MPV (7.4-10.4) fL Immature Gran % (Auto) % Neut % (Auto) % Lymph % (Auto) % [place] % (Auto) % Eos % (Auto) % Baso % (Auto) % Neut # (Auto) (1.4-6.5) K/uL Lymph # (Auto) (1.2-3.4) K/uL [place] # (Auto) (0.11-0.59) K/uL Eos # (Auto) (0-0.5) K/uL Baso # (Auto) (0-0.2) K/uL Immature Gran # (Auto) (0.00-0.02) K/uL Platelet Estimate (Normal) PT (9.0-12.0) Seconds INR (0.9-1.1) APTT (21.0-31.0) Seconds PTT Ratio Sodium (136-145) mmol/L Potassium (3.5-5.1) mmol/L Chloride (98-107) mmol/L Carbon Dioxide (21-32) mmol/L Anion Gap (3-11) BUN (6-23) mg/dl Creatinine (0.6-1.2) mg/dl Est Cr Clr Drug Dosing ml/min Est GFR ( Amer) ml/min Est GFR (Non-Af Amer) ml/min BUN/Creatinine Ratio (10-20) Glucose (70-99(Fasting)) mg/dl POC Glucose 124 H (70-99) mg/dl Estimat Average Glucose 148 mg/dl Hemoglobin A1c 6.8 H (4.5-5.6) % Calcium (8.5-10.1) mg/dl Magnesium (1.7-2.4) mg/dl Total Bilirubin (0.2-1.0) mg/dl AST (13-39) U/L ALT (7-52) U/L Alkaline Phosphatase (34-104) U/L Ammonia (18-72) umol/L Total Protein (6.0-8.3) gm/dl Albumin (3.4-5.0) gm/dl Globulin (2.5-4.0) gm/dl Albumin/Globulin Ratio (0.9-2) Lipase 109 H (11-82) U/L 07/16/21 07/16/21 07/16/21 Range/Units 05:31 05:31 05:31 WBC 5.26 (4.8-10.8) K/uL RBC 3.41 L (4.2-5.4) M/uL Hgb 10.9 L (12.0-16.0) g/dL Hct 31.8 L (37-47) % MCV 93.3 (80-100) fL MCH 32.0 (25-34) pg MCHC 34.3 (32-36) g/dL RDW Std Deviation 54.5 H (36.4-46.3) fL RDW Coeff of Charlee 16.0 H (11.5-14.5) % Plt Count 92 L (130-400) K/uL MPV 8.5 (7.4-10.4) fL Immature Gran % (Auto) 0.4 % Neut % (Auto) 42.9 % Lymph % (Auto) 30.6 % [place] % (Auto) 20.2 % Eos % (Auto) 5.5 % Baso % (Auto) 0.4 % Neut # (Auto) 2.26 (1.4-6.5) K/uL Lymph # (Auto) 1.61 (1.2-3.4) K/uL [place] # (Auto) 1.06 H (0.11-0.59) K/uL Eos # (Auto) 0.29 (0-0.5) K/uL Baso # (Auto) 0.02 (0-0.2) K/uL Immature Gran # (Auto) 0.02 (0.00-0.02) K/uL Platelet Estimate Decreased L (Normal) PT 13.2 H (9.0-12.0) Seconds INR 1.3 H (0.9-1.1) APTT 30.0 (21.0-31.0) Seconds PTT Ratio 1.1 Sodium 139 (136-145) mmol/L Potassium 4.0 D (3.5-5.1) mmol/L Chloride 106 (98-107) mmol/L Carbon Dioxide 26 (21-32) mmol/L Anion Gap 7 (3-11) BUN 20 (6-23) mg/dl Creatinine 1.21 H (0.6-1.2) mg/dl Est Cr Clr Drug Dosing 43.0 ml/min Est GFR ( Amer) 53.2 ml/min Est GFR (Non-Af Amer) 45.9 ml/min BUN/Creatinine Ratio 16.5 (10-20) Glucose 116 H (70-99(Fasting)) mg/dl POC Glucose (70-99) mg/dl Estimat Average Glucose mg/dl Hemoglobin A1c (4.5-5.6) % Calcium 9.5 (8.5-10.1) mg/dl Magnesium 1.6 L (1.7-2.4) mg/dl Total Bilirubin 2.4 H (0.2-1.0) mg/dl AST 33 (13-39) U/L ALT 18 (7-52) U/L Alkaline Phosphatase 100 (34-104) U/L Ammonia (18-72) umol/L Total Protein 5.2 L (6.0-8.3) gm/dl Albumin 3.2 L (3.4-5.0) gm/dl Globulin 2.0 L (2.5-4.0) gm/dl Albumin/Globulin Ratio 1.6 (0.9-2) Lipase (11-82) U/L 07/16/21 Range/Units 04:55 WBC (4.8-10.8) K/uL RBC (4.2-5.4) M/uL Hgb (12.0-16.0) g/dL Hct (37-47) % MCV (80-100) fL MCH (25-34) pg MCHC (32-36) g/dL RDW Std Deviation (36.4-46.3) fL RDW Coeff of Charlee (11.5-14.5) % Plt Count (130-400) K/uL MPV (7.4-10.4) fL Immature Gran % (Auto) % Neut % (Auto) % Lymph % (Auto) % [place] % (Auto) % Eos % (Auto) % Baso % (Auto) % Neut # (Auto) (1.4-6.5) K/uL Lymph # (Auto) (1.2-3.4) K/uL [place] # (Auto) (0.11-0.59) K/uL Eos # (Auto) (0-0.5) K/uL Baso # (Auto) (0-0.2) K/uL Immature Gran # (Auto) (0.00-0.02) K/uL Platelet Estimate (Normal) PT (9.0-12.0) Seconds INR (0.9-1.1) APTT (21.0-31.0) Seconds PTT Ratio Sodium (136-145) mmol/L Potassium (3.5-5.1) mmol/L Chloride (98-107) mmol/L Carbon Dioxide (21-32) mmol/L Anion Gap (3-11) BUN (6-23) mg/dl Creatinine (0.6-1.2) mg/dl Est Cr Clr Drug Dosing ml/min Est GFR ( Amer) ml/min Est GFR (Non-Af Amer) ml/min BUN/Creatinine Ratio (10-20) Glucose (70-99(Fasting)) mg/dl POC Glucose 125 H (70-99) mg/dl Estimat Average Glucose mg/dl Hemoglobin A1c (4.5-5.6) % Calcium (8.5-10.1) mg/dl Magnesium (1.7-2.4) mg/dl Total Bilirubin (0.2-1.0) mg/dl AST (13-39) U/L ALT (7-52) U/L Alkaline Phosphatase (34-104) U/L Ammonia (18-72) umol/L Total Protein (6.0-8.3) gm/dl Albumin (3.4-5.0) gm/dl Globulin (2.5-4.0) gm/dl Albumin/Globulin Ratio (0.9-2) Lipase (11-82) U/L PG Care Time/CCT Total # of Minutes Spent Total Time Spent with Patient: Total time spent is greater than 50% in coordination of care (as documented) at patient's floor/unit and/or counseling patient: Coding Level of Care Code 20985 Subseq Hosp Care Lvl 3 Diagnoses 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 Chronic diarrhea K52.9 Hypokalemia E87.6 Hypomagnesemia E83.42 GERD (gastroesophageal reflux disease) K21.9 Esophagitis presence: esophagitis presence not specified Hypothyroidism E03.9 Hypothyroidism type: unspecified Hyperlipidemia E78.5 Hyperlipidemia type: unspecified Diabetes mellitus, type 2 E11.9 Moeller's esophagus with esophagitis K22.70; K20.9 Fracture of fourth lumbar vertebra S32.049A Hypertension I10 Hypertension type: primary hypertension Primary hyperparathyroidism E21.0 Anxiety and depression F41.9; F32.9 UTI (urinary tract infection) N39.0 Thrombocytopenia D69.6 Abnormal finding on breast imaging R92.8 Abdominal pain R10.9 (1) Hyperlipidemia Hyperlipidemia type: unspecified Qualified Code(s): E78.5 - Hyperlipidemia, unspecified (2) Hypothyroidism Hypothyroidism type: unspecified Qualified Code(s): E03.9 - Hypothyroidism, unspecified (3) GERD (gastroesophageal reflux disease) Esophagitis presence: esophagitis presence not specified Qualified Code(s): K21.9 - Gastro-esophageal reflux disease without esophagitis (4) Hypertension Hypertension type: primary hypertension Qualified Code(s): I10 - Essential (primary) hypertension
[2021-07-16] MEDS ORDERED: ZOLPIDEM TARTRATE 5 MG TAB PO PRN (12:47)
--- NOTE | 2021-07-16 13:40 | Consultation ---
Date of Consultation July 16, 2021 Assessment & Plan (1) Fracture of fourth lumbar vertebra: Dr. Cheng has also reviewed case and imaging. Patient has a healing L4 compression fracture from a fall several weeks ago. I would recommend conservative treatment. I do not feel she would tolerate a brace in light of her nausea, vomiting, diarrhea and abdominal pain. Ambulate ad roxanne. Would recommend a 5 pound maximum weight lifting restriction. No surgical intervention warranted at this point in time. Continue with pain management. History of Present Illness Reason for Consultation: Subacute L4 superior endplate compression fracture Attending Physician: Kristel Montiel MD History of Present Illness Is a pleasant 66-year-old female that we are asked to see in consultation regarding an L4 compression fracture. She was admitted on July 15 with a diagnosis of nausea, vomiting, diarrhea and abdominal pain. She has a history of Daily cirrhosis. When questioning her she reports 2 falls about 2 weeks apart. Last fall was about 2 weeks ago. She has had lower back pain since. She completed some home physical therapy. She has noted balance issues for the past 2 months. She denies radicular leg pain. She was applying heat to her lower back at home. Not requiring any medication for pain control. States her pain is reproduced with standing, shopping, activity. She is most comfortable in a seated position or when at rest. Typically she ambulates independently at home. Allergies Allergy/AdvReac Type Severity Reaction Status Date / Time bee venom protein (honey bee) Allergy Severe Anaphylaxis Verified 07/15/21 08:54 Influenza Virus Vaccines Allergy Severe Anaphylaxis Verified 07/15/21 08:54 tetracycline AdvReac Severe Severe Verified 07/15/21 08:54 stomach pains Home Medications Medication Instructions Recorded Confirmed Type omeprazole 40 mg capsule,delayed 40 mg PO QDL 08/03/18 07/15/21 History release paroxetine HCl 20 mg tablet 20 mg PO QAM 04/17/19 07/15/21 History multivit,Ca,uph-wnne-WA-guarana-caff 1 tab PO HS 11/30/19 07/15/21 History 18 mg iron-400 mcg-180 mg tablet (One-A-Day Women's Active) rosuvastatin 20 mg tablet (Crestor) 20 mg PO HS tab 12/28/19 07/15/21 History potassium chloride 20 mEq 20 meq PO BID #60 tab 09/23/20 07/15/21 Rx tablet,extended release(part/cryst) (Klor-Con M) blood sugar diagnostic (OneTouch 11/12/20 06/17/21 History Verio test strips) zolpidem 5 mg tablet 5 mg PO HS 03/12/21 07/15/21 History levothyroxine 100 mcg tablet 100 mcg PO .COMPLEX #30 tab 03/26/21 07/15/21 Rx valacyclovir 1 gram tablet 1 mg PO BID PRN 04/16/21 07/15/21 History levothyroxine 112 mcg tablet 112 mcg PO .COMPLEX #45 tab 05/19/21 07/15/21 Rx chlorthalidone 25 mg tablet 25 mg PO DAILY #90 tab 05/29/21 07/15/21 Rx lorazepam 1 mg tablet 1 mg PO DAILY PRN 05/29/21 07/15/21 History metformin 500 mg tablet 1,000 mg PO BID tab 05/29/21 07/15/21 History propranolol 20 mg tablet 100 mg PO DAILY tab 05/29/21 07/15/21 History FreeStyle Lisy 2 Sensor (flash #2 ea NS 06/17/21 06/17/21 Rx glucose sensor) cinacalcet 30 mg tablet 30 mg PO DAILY 06/17/21 07/15/21 History dulaglutide 3 mg/0.5 mL 3 mg SUBCUT .weekly 90 Days #6 ml 06/19/21 07/15/21 Rx subcutaneous pen injector Crestor 20 mg PO QAM 07/15/21 07/15/21 History vbyarqlr-gga-uxaes ac 400 1 tab PO HS 07/15/21 07/15/21 History mcg-calcium carb 500 mg-vit K1 20 mcg tablet (Women's 50 Plus Multivitamin) Patient History Medical History Abnormal finding on breast imaging Anemia Anxiety and depression Arthritis Moeller's esophagus with esophagitis Chronic diarrhea Colitis Diabetes mellitus, type 2 Diverticulitis of sigmoid colon Diverticulosis GERD (gastroesophageal reflux disease) GI bleed RECENT HOSPITALIZED Heel spur B/L feet Hiatal hernia History of kidney stones Hyperlipidemia Hypertension NO CURRENT MEDS Hypothyroidism Liver cirrhosis secondary to DAILY Nephrolithiasis Primary hyperparathyroidism Spleen enlarged Stucco keratoses Temporomandibular joint disorder NO LOCKING/WEARS MANAGER BANQUET Surgical History H/O thumb surgery RT/LEFT JOINT REPAIR H/O total hysterectomy History of appendectomy History of arthroscopy of knee Left Knee - meniscus/cartilage History of colonoscopy History of cystoscopy History of esophagogastroduodenoscopy (EGD) History of tonsillectomy and adenoidectomy History of tooth extraction Hx of cholecystectomy Family History Brother Coronary heart disease Heart disease Mother Family history of diabetes mellitus Hypertension Heart disease Sister Family history of diabetes mellitus Son Family history of diabetes mellitus Father Family hx of colon cancer Hearing loss Hypertension Cancer Heart disease Grandfather (Maternal) Family hx of colon cancer Other No family history of adverse response to anesthesia No family history of bleeding disorder Social History Smoking Status: Former smoker Second Hand Exposure: No; Hx Alcohol Use: No Hx Substance Use: No Preferred Language: Belarusian Communication Ability: Effective 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 She is lying in bed in no acute distress. Alert and oriented x3 She is tender to palpation of the midline lower lumbar region. No ecchymosis or lacerations across the thoracolumbar region Strength is 5 5 bilateral lower extremities Results & Data ([facility]) Vital Signs (Past 12 Hours) Vital Signs Temp Pulse Pulse Resp BP BP Pulse Ox 07/16/21 11:35 36.7 C 76 20 104/61 95 07/16/21 07:16 77 07/16/21 07:04 36.7 C 77 20 108/66 94 07/16/21 04:56 36.6 C 79 16 119/66 92 07/16/21 03:45 36.6 C 75 20 117/63 94 Diagnostic Findings [facility], [place] [phone] CT Scan Report Patient:SHOLA WYNN Admit Date:07/15/21 MR#:[id number] Address1:[address] Acct ID:[id number] Address2: Date:1955 [facility] Zip:[place] [address] Age:66 Location:ED Sex:F Room/Bed: Att Phy: Diagnosis:COMPLICATIONS OF END STAGE LIVER DISEASE/VOMITING Ruth Phy:Reza Cid MD Service Date:07/15/21 Fam Phy:Noe García M.D. Interpreting Phy:Caleb ShearerAdmit Phy: Ordering Phy:Jan Padron M.D. cc: ~ ABDOMEN AND PELVIS CT WITH IV CONTRAST CT DOSE: 507.87 mGy.cm HISTORY: Acute nausea and vomiting with left lower quadrant abdominal pain N/V/D, LLQ pain TECHNIQUE: Multiaxial CT images of the abdomen and pelvis were performed following the IV administration of 95 cc of Optiray, A dose lowering technique was utilized adhering to the principles of ALARA. COMPARISON STUDY: CT abdomen and pelvis 05/20/2021, 03/12/2021. FINDINGS: Cardiomegaly. Asymmetric densities of the inferior central left breast. Mild subsegmental bibasilar atelectasis. There is no pneumatosis or pneumoperitoneum. Spleen is enlarged measuring up to 18 cm in length. Unremarkable adrenal glands. Prominence of the pericolonic duct measuring up to 4-5 mm is similar to prior. No obstructing pancreatic stone or lesion identified. Cholecystectomy with intrahepatic and extrahepatic biliary ductal dilation, likely postsurgical. Cirrhotic morphology of the liver. Patency of the portal vein. No hepatic mass identified. 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 Unremarkable kidneys. No hydronephrosis. Urinary bladder wall thickening with partial distention and perivesicular stranding. Hysterectomy. Atherosclerosis of the aorta. Unchanged prominent retroperitoneal lymph nodes measuring up to 9 mm with mild adjacent inflammatory changes. Nonspecific mild distal esophageal wall thickening. Wall thickening of the distal stomach is likely secondary to partial distention. There is a large duodenal diverticulum. Indeterminate soft tissue nodule within the left pericolic gutter on image 261 is unchanged, possibly a small lymph node. The appendix is air and fluid-filled and measures up to 9 mm, similar to the prior study. Mild wall thickening of the cecum may be secondary to partial distention. Colonic diverticulosis. Mild inflammatory stranding is noted within the abdominal left lower quadrant adjacent to the sigmoid colon and urinary bladder. Unremarkable soft tissues. Degenerative changes of the spine, pelvis and hips. Progressively worsened subacute L4 superior endplate compression deformity with 40% vertebral body height loss and 3 mm retropulsion. IMPRESSION: 1. No bowel obstruction or pneumoperitoneum. 2. Cirrhotic liver disease with stigmata of portal venous hypertension. 3. Urinary bladder wall thickening with partial distention and mild perivesicular stranding. Correlate with urinalysis to exclude cystitis. 4. Unchanged dilation of the appendix. No definite CT evidence of acute appendicitis. 5. Moderate subacute L4 superior endplate compression deformity with minimal retropulsion. 6. Colonic diverticulosis. ACT 112: Negative or not required by law. The above report was generated using voice recognition software. It may contain grammatical, syntax or spelling errors. Electronically signed by: Caleb Shearer M.D. 07/15/2021 10:53 AM Dictated:07/15/21 1038 Transcribed: 07/15/21 1038
[2021-07-16] MEDS: CHOLESTYRAMINE LIGHT 4 GM PKT PO SCH ×2 (14:00→23:35)
[2021-07-16] MEDS: cefTRIAXone SODIUM 1,000 MG in DEXTROSE 5% 50 ML IV SCH (17:54)
[2021-07-16] MEDS ORDERED: SODIUM CHLORIDE 0.9% 500 ML IV SCH (20:30)
--- NOTE | 2021-07-16 20:31 | Communication Note ---
Date of Service: July 16, 2021 Notified by patient's RN at change of shift that patient was more confused this evening. Went up to assess - patient pleasantly interacting and responding to questions mostly appropriately, but does endorse feeling confused ("loopy"). Denies any pain or difficulty breathing. No BMs reported during the day. No headache, vision difficulties. Lights are out in the room, TV off. VS - 137/68, HR 77, RR 17, T 36.7. Appears well perfused. A+O to person and time, not to place. Cardiac - NRRR, +s1/s2 w/o m/r/g. Pulm - CTAB w/o crackles or wheezes. Abdomen - soft/nt/nd. Neuro - CN2-12 grossly in tact, UE, LE strength 5/5. No asterixis. No tremor. Encephalopathy / Acute Delirium. No new RX other than Dilaudid. Lower suspicion for acute hepatic encephalopathy but history of cirrhosis noted. No FNDs on exam to suggest acute [employer] TE[employer] insult. Primarily suspect hospital delirium, possibly precipitated by Dilaudid earlier in the day. Will check BMP, Mg, ammonia now given notable change that was observed. Hydrate with 250cc x 1, LISA earlier today noted. Delirium precautions. Communicated plan to RN. Resident Activity Tracking Resident Involvement: Resident Care Provided Care Provided: Adult Hospital Medicine
[2021-07-16 20:54] LABS: Albumin Globulin Ratio 1.5 (0.9-2); Albumin Level 3.4 gm/dl (3.4-5.0); BUN Creatinine Ratio 11.9 (10-20); Bilirubin,Total 2.2 mg/dl (0.2-1.0); Calcium 8.8 mg/dl (8.5-10.1); Creatinine Clr Calc Pharmacy 38.9 ml/min; Est GFR (African American) 47.1 ml/min; Est GFR (Non-African American) 40.6 ml/min; Globulin 2.3 gm/dl (2.5-4.0); Magnesium 1.8 mg/dl (1.7-2.4); Potassium 3.5 mmol/L (3.5-5.1); Total Protein 5.7 gm/dl (6.0-8.3)
[2021-07-16] MEDS: MULTIVITAMIN TAB PO SCH (21:14)
[2021-07-16] MEDS: ROSUVASTATIN CALCIUM 20 MG TAB PO SCH (21:14)
[2021-07-17] MEDS: LEVOTHYROXINE SODIUM 112 MCG TABLET PO SCH (05:58)
[2021-07-17 06:08] LABS: Hematocrit (blood only) 29.1 % (37-47); Hemoglobin 10.1 g/dL (12.0-16.0); Mean Corpuscular Hemoglobin 32.3 pg (25-34); Mean Corpuscular Hgb Conc 34.7 g/dL (32-36); RDW Coefficient of Variation 15.2 % (11.5-14.5); RDW Standard Deviation 51.7 fL (36.4-46.3); Red Blood Count 3.13 M/uL (4.2-5.4); White Blood Count 4.13 K/uL (4.8-10.8)
[2021-07-17] MEDS: HYDROmorphone INJ 0.5 MG/0.5 ML SYR IV PRN (06:17)
[2021-07-17 06:24] LABS: INR 1.3 (0.9-1.1); Partial Thromboplastin Ratio 1.1; Partial Thromboplastin Time 29.7 Seconds (21.0-31.0); Prothrombin Time 13.4 Seconds (9.0-12.0)
[2021-07-17 06:29] LABS: Mean Platelet Volume 8.5 fL (7.4-10.4); Platelet Count 72 K/uL (130-400)
[2021-07-17 06:33] LABS: Basophils # (auto) 0.02 K/uL (0-0.2); Basophils % (auto) 0.5 %; Eosinophils # (auto) 0.22 K/uL (0-0.5); Eosinophils % (auto) 5.3 %; Immature Granulocytes # (auto) 0.01 K/uL (0.00-0.02); Immature Granulocytes % (auto) 0.2 %; Lymphocytes # (auto) 1.54 K/uL (1.2-3.4); Lymphocytes % (auto) 37.3 %; Monocytes # (auto) 0.63 K/uL (0.11-0.59); Monocytes % (auto) 15.3 %; Neutrophils # (auto) 1.71 K/uL (1.4-6.5); Neutrophils % (auto) 41.4 %
[2021-07-17 06:35] LABS: Albumin Globulin Ratio 1.6 (0.9-2); Albumin Level 3.2 gm/dl (3.4-5.0); BUN Creatinine Ratio 13.1 (10-20); Bilirubin,Total 2.2 mg/dl (0.2-1.0); Calcium 8.5 mg/dl (8.5-10.1); Creatinine Clr Calc Pharmacy 48.7 ml/min; Est GFR (African American) 61.8 ml/min; Est GFR (Non-African American) 53.3 ml/min; Magnesium 1.6 mg/dl (1.7-2.4); Potassium 3.3 mmol/L (3.5-5.1); Total Protein 5.2 gm/dl (6.0-8.3)
[2021-07-17] MEDS: PARoxetine HCL 20 MG TAB PO SCH (08:13)
[2021-07-17] MEDS: CINACALCET HCL 30 MG TAB PO SCH (08:13)
[2021-07-17] MEDS: POTASSIUM CHLORIDE CRTAB 20 MEQ TABCR PO SCH ×2 (08:13→21:22)
[2021-07-17] MEDS: PROPRANOLOL HCL 60 MG LA CAP PO SCH (08:13)
[2021-07-17] MEDS: FAMOTIDINE 20 MG in SYRINGE 3 ML IV SCH (08:14)
[2021-07-17] MEDS: INSULIN ASPART PER UNIT SC SCH ×4 (08:29→21:25)
--- NOTE | 2021-07-17 08:54 | Electrocardiogram Report ---
Test Reason : Blood Pressure : / mmHG Vent. Rate : 075 BPM Atrial Rate : 075 BPM P-R Int : 148 ms QRS Dur : 086 ms QT Int : 410 ms P-R-T Axes : 039 003 001 degrees QTc Int : 457 ms Normal sinus rhythm Minimal voltage criteria for LVH, may be normal variant Nonspecific T wave abnormality Abnormal ECG When compared with ECG of 13-MAY-2021 04:05, T wave inversion now evident in Inferior leads Nonspecific T wave abnormality now evident in Anterior leads Confirmed by Miguel Mccarty ([id number]) on 07/17/2021 8:53:43 AM Referred By: REFERRED SELF Confirmed By:Miguel Mccarty
[2021-07-17] MEDS: FAMOTIDINE 20 MG TAB PO SCH ×2 (09:29→21:21)
[2021-07-17] MEDS: MAGNESIUM SULFATE / D5W 1 GM/100 ML BAG IV SCH ×2 (09:50→11:38)
[2021-07-17] MEDS: CHOLESTYRAMINE LIGHT 4 GM PKT PO SCH ×2 (11:03→22:38)
--- NOTE | 2021-07-17 14:43 | Hospitalist Progress Note ---
Date of Service July 17, 2021 Assessment & Plan (1) Chronic diarrhea: Plan: With years of chronic diarrhea but recently worsened with acute on chronic lower abdominal pain CT abdomen/pelvis consistent with cystitis, chronic shotty retroperitoneal lymphadenopathy, and some stranding in the left lower quadrant adjacent to the sigmoid colon and urinary bladder, no overt diverticulitis Had a colonoscopy approximately 1 year ago that only showed nonbleeding internal hemorrhoids Stool PCR pending as she still has not had a bowel movement since admission with reduction in p.o. intake-she reports she is fearful of eating but encouraged her to do so today Started trial of cholestyramine 4 g p.o. twice daily Stopped metformin and omeprazole as may be contributing to diarrhea Start Imodium as needed She reports that the diarrhea has been disabling and she does not leave her house because of it Can also start Creon but will wait to see if cholestyramine helps first Appreciate GI consultation (2) Abdominal pain: Plan: Acute on chronic but seems more consistent with suprapubic pain from UTI at this time CT abdomen/pelvis with stable air-filled appendix from previous, stable shotty retroperitoneal lymphadenopathy, and some stranding around the sigmoid colon and bladder region but no diverticulitis Pain is improved somewhat in the suprapubic region but still there and she is still requesting opioids Discontinue IV Dilaudid due to confusion, can give oxycodone but cautioned her to use this sparingly given cirrhosis and being prone to confusion with opioids Trial of Pyridium now Continue to treat UTI with antibiotics -Continue Tylenol for mild pain -Also recommend outpatient referral to urology given chronic bladder spasms- perhaps she has interstitial cystitis? She is also describing intermittent rectal spasms which improved with direct pressure to the anal region. These come on after bowel movements. Seems consistent with anal fissure -Advised follow-up with GI to see if anoscopy is indicated (3) UTI (urinary tract infection): Plan: CT suggestive of possible cystitis, with acute suprapubic pain but no dysuria Urinalysis does appear abnormal Urine culture growing pansensitive Klebsiella pneumonia Continue ceftriaxone and convert to p.o. Keflex on discharge to finish out 7-day course Add Pyridium for pain (4) Hypomagnesemia: Plan: Magnesium 1.2 upon admission-replaced but continues to remain low today at 1.6 Give 2 more grams of IV magnesium sulfate Recheck laboratories in a.m. Likely secondary to diarrhea as well as poor p.o. intake and also may be complicated by PPI use which has been discontinued (5) Fracture of fourth lumbar vertebra: Plan: She does report some pain across her back along the pelvis Report on CT of abdomen/pelvis is subacute with 3 mm retropulsion She has no radiculopathy or weakness Start Dilaudid as needed for moderate to severe pain Consult orthopedic spine surgery appreciated-no brace recommended due to diarrhea, conservative measures, no lifting more than 5 pounds Recommend follow-up with orthopedic surgery as an outpatient in 2 to 3 weeks (6) Hypokalemia: Plan: Potassium was low on admission and was replaced-continues to be low due to poor p.o. intake Continue potassium chloride 20 M EQ p.o. twice daily Continue to follow BMP (7) Abnormal finding on breast imaging: Plan: With left breast densities noted inferiorly on CT abdomen/pelvis Advised patient she needs diagnostic mammogram and breast ultrasound as an outpatient (8) 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: Plan: With portal hypertension, splenomegaly, varices Continue propranolol She is not on lactulose due to chronic diarrhea Follow with GI routinely She is also seeing hepatology at [facility] (9) GERD (gastroesophageal reflux disease): Plan: GERD/Moeller's esophagus- Change omeprazole to famotidine due to diarrhea that could be associated with PPI (10) Hypothyroidism: Plan: Continue levothyroxine 112 mcg daily TSH normal 06/03 (11) Hyperlipidemia: Plan: Continue Crestor 20 mg every morning (12) Diabetes mellitus, type 2: Plan: Hold dulaglutide and metformin Would not restart metformin as may be contributing to diarrhea Place on Accu-Cheks before meals and at bedtime with NovoLog coverage per scale (13) Moeller's esophagus with esophagitis: Plan: Change PPI to H2 roxann (14) Hypertension: Plan: Hold chlorthalidone due to hypokalemia and low normal blood pressures Continue propranolol (15) Primary hyperparathyroidism: Plan: Likely contributing to acute L4 compression fracture Continue cinacalcet (16) Anxiety and depression: Plan: Continue lorazepam, paroxetine and zolpidem but made zolpidem as needed rather than scheduled (17) Thrombocytopenia: Plan: Secondary to hepatosplenomegaly/cirrhosis-slightly lower today at 72 Follow CBC Plan: DVT prophylaxis-SCDs Disposition-continued stay for electrolyte replacement, awaiting improvement in acute abdominal pain, PT/OT consults placed Probable discharge to home tomorrow Can downgrade off telemetry Admission and Anticipated Discharge Date Admission Date: July 15, 2021 Subjective Patient reports still feeling very fatigued. She has not had a single bowel movement since admission. She is still having some suprapubic pain and reports that this is acute on chronic. She is also having lower back pain that is constant. She is wondering if she can have pain meds to take at home so she does not come to the ER every time she has pain. We discussed the long-term risks of opioids especially in the setting of cirrhosis. She did have some confusion last night after getting Dilaudid which is now resolved. She also describes chronic intermittent rectal spasm pain that is relieved at home by sitting on a hard ball or by sitting on her 's fist. It does tend to come on after having bowel movements. She does not think she is ever been checked for an anal fissure since this started. Telemetry with normal sinus rhythm with rates in the 70s to 80s. Review of Systems Review of Systems: All systems reviewed & are unremarkable except as noted in HPI & below Physical Exam Constitutional: WD/WN, vitals as above Eyes: + scleral abnormality (Icterus present) ENMT: external ear and nose normal, oropharynx normal Neck: trachea midline, no thyromegaly Respiratory: normal respiratory effort, lungs clear to auscultation Cardiovascular: RRR, no murmur, no edema Chest (Breasts): Chest: normal inspection of chest Gastrointestinal (Abdomen): Inspection/Auscultation: normal bowel sounds; abdomen not distended Percussion/Palpation: + abdomen tender (in suprapubic region without guarding or rebound), abdomen soft and + hepatosplenomegaly Musculoskeletal: Extremities: extremities normal to inspection; no cyanosis and no clubbing Skin: no rashes, warm and dry Neurologic: moves all extremities and awake; no focal motor deficits Psychiatric: A+Ox3, euthymic affect Lymphatic: no lymphedema Results & Data Results & Data ([facility]) Vital Signs (Past 12 Hours) Vital Signs Temp Pulse Pulse Resp BP Pulse Ox 07/17/21 11:00 36.5 C 78 18 124/67 95 07/17/21 10:14 77 07/17/21 06:48 36.6 C 77 20 135/78 95 07/17/21 03:45 36.9 C 80 20 124/65 94 Laboratory Results 07/17/21 07/17/21 07/17/21 Range/Units 16:37 11:34 07:33 WBC (4.8-10.8) K/uL RBC (4.2-5.4) M/uL Hgb (12.0-16.0) g/dL Hct (37-47) % MCV (80-100) fL MCH (25-34) pg MCHC (32-36) g/dL RDW Std Deviation (36.4-46.3) fL RDW Coeff of Charlee (11.5-14.5) % Plt Count (130-400) K/uL MPV (7.4-10.4) fL Immature Gran % (Auto) % Neut % (Auto) % Lymph % (Auto) % Carson % (Auto) % Eos % (Auto) % Baso % (Auto) % Neut # (Auto) (1.4-6.5) K/uL Lymph # (Auto) (1.2-3.4) K/uL Carson # (Auto) (0.11-0.59) K/uL Eos # (Auto) (0-0.5) K/uL Baso # (Auto) (0-0.2) K/uL Immature Gran # (Auto) (0.00-0.02) K/uL PT (9.0-12.0) Seconds INR (0.9-1.1) APTT (21.0-31.0) Seconds PTT Ratio Sodium (136-145) mmol/L Potassium (3.5-5.1) mmol/L Chloride (98-107) mmol/L Carbon Dioxide (21-32) mmol/L Anion Gap (3-11) BUN (6-23) mg/dl Creatinine (0.6-1.2) mg/dl Est Cr Clr Drug Dosing ml/min Est GFR ( Amer) ml/min Est GFR (Non-Af Amer) ml/min BUN/Creatinine Ratio (10-20) Glucose (70-99(Fasting)) mg/dl POC Glucose 169 H 133 H 118 H (70-99) mg/dl Calcium (8.5-10.1) mg/dl Magnesium (1.7-2.4) mg/dl Total Bilirubin (0.2-1.0) mg/dl AST (13-39) U/L ALT (7-52) U/L Alkaline Phosphatase (34-104) U/L Ammonia (18-72) umol/L Total Protein (6.0-8.3) gm/dl Albumin (3.4-5.0) gm/dl Globulin (2.5-4.0) gm/dl Albumin/Globulin Ratio (0.9-2) 07/17/21 07/17/21 07/17/21 Range/Units 05:30 05:30 05:30 WBC 4.13 L (4.8-10.8) K/uL RBC 3.13 L (4.2-5.4) M/uL Hgb 10.1 L (12.0-16.0) g/dL Hct 29.1 L (37-47) % MCV 93.0 (80-100) fL MCH 32.3 (25-34) pg MCHC 34.7 (32-36) g/dL RDW Std Deviation 51.7 H (36.4-46.3) fL RDW Coeff of Charlee 15.2 H (11.5-14.5) % Plt Count 72 L (130-400) K/uL MPV 8.5 (7.4-10.4) fL Immature Gran % (Auto) 0.2 % Neut % (Auto) 41.4 % Lymph % (Auto) 37.3 % Carson % (Auto) 15.3 % Eos % (Auto) 5.3 % Baso % (Auto) 0.5 % Neut # (Auto) 1.71 (1.4-6.5) K/uL Lymph # (Auto) 1.54 (1.2-3.4) K/uL Carson # (Auto) 0.63 H (0.11-0.59) K/uL Eos # (Auto) 0.22 (0-0.5) K/uL Baso # (Auto) 0.02 (0-0.2) K/uL Immature Gran # (Auto) 0.01 (0.00-0.02) K/uL PT 13.4 H (9.0-12.0) Seconds INR 1.3 H (0.9-1.1) APTT 29.7 (21.0-31.0) Seconds PTT Ratio 1.1 Sodium 142 (136-145) mmol/L Potassium 3.3 L (3.5-5.1) mmol/L Chloride 107 (98-107) mmol/L Carbon Dioxide 28 (21-32) mmol/L Anion Gap 7 (3-11) BUN 14 (6-23) mg/dl Creatinine 1.07 (0.6-1.2) mg/dl Est Cr Clr Drug Dosing 48.7 ml/min Est GFR ( Amer) 61.8 ml/min Est GFR (Non-Af Amer) 53.3 ml/min BUN/Creatinine Ratio 13.1 (10-20) Glucose 108 H (70-99(Fasting)) mg/dl POC Glucose (70-99) mg/dl Calcium 8.5 (8.5-10.1) mg/dl Magnesium 1.6 L (1.7-2.4) mg/dl Total Bilirubin 2.2 H (0.2-1.0) mg/dl AST 34 (13-39) U/L ALT 17 (7-52) U/L Alkaline Phosphatase 104 (34-104) U/L Ammonia (18-72) umol/L Total Protein 5.2 L (6.0-8.3) gm/dl Albumin 3.2 L (3.4-5.0) gm/dl Globulin 2.0 L (2.5-4.0) gm/dl Albumin/Globulin Ratio 1.6 (0.9-2) 07/16/21 07/16/21 07/16/21 Range/Units 21:56 20:26 20:26 WBC (4.8-10.8) K/uL RBC (4.2-5.4) M/uL Hgb (12.0-16.0) g/dL Hct (37-47) % MCV (80-100) fL MCH (25-34) pg MCHC (32-36) g/dL RDW Std Deviation (36.4-46.3) fL RDW Coeff of Charlee (11.5-14.5) % Plt Count (130-400) K/uL MPV (7.4-10.4) fL Immature Gran % (Auto) % Neut % (Auto) % Lymph % (Auto) % Carson % (Auto) % Eos % (Auto) % Baso % (Auto) % Neut # (Auto) (1.4-6.5) K/uL Lymph # (Auto) (1.2-3.4) K/uL Carson # (Auto) (0.11-0.59) K/uL Eos # (Auto) (0-0.5) K/uL Baso # (Auto) (0-0.2) K/uL Immature Gran # (Auto) (0.00-0.02) K/uL PT (9.0-12.0) Seconds INR (0.9-1.1) APTT (21.0-31.0) Seconds PTT Ratio Sodium 140 (136-145) mmol/L Potassium 3.5 (3.5-5.1) mmol/L Chloride 105 (98-107) mmol/L Carbon Dioxide 29 (21-32) mmol/L Anion Gap 6 (3-11) BUN 16 (6-23) mg/dl Creatinine 1.34 H (0.6-1.2) mg/dl Est Cr Clr Drug Dosing 38.9 ml/min Est GFR ( Amer) 47.1 ml/min Est GFR (Non-Af Amer) 40.6 ml/min BUN/Creatinine Ratio 11.9 (10-20) Glucose 139 H (70-99(Fasting)) mg/dl POC Glucose 138 H (70-99) mg/dl Calcium 8.8 (8.5-10.1) mg/dl Magnesium 1.8 (1.7-2.4) mg/dl Total Bilirubin 2.2 H (0.2-1.0) mg/dl AST 36 (13-39) U/L ALT 19 (7-52) U/L Alkaline Phosphatase 107 H (34-104) U/L Ammonia 62.0 (18-72) umol/L Total Protein 5.7 L (6.0-8.3) gm/dl Albumin 3.4 (3.4-5.0) gm/dl Globulin 2.3 L (2.5-4.0) gm/dl Albumin/Globulin Ratio 1.5 (0.9-2) 07/16/21 07/16/21 Range/Units 20:17 19:47 WBC (4.8-10.8) K/uL RBC (4.2-5.4) M/uL Hgb (12.0-16.0) g/dL Hct (37-47) % MCV (80-100) fL MCH (25-34) pg MCHC (32-36) g/dL RDW Std Deviation (36.4-46.3) fL RDW Coeff of Charlee (11.5-14.5) % Plt Count (130-400) K/uL MPV (7.4-10.4) fL Immature Gran % (Auto) % Neut % (Auto) % Lymph % (Auto) % Carson % (Auto) % Eos % (Auto) % Baso % (Auto) % Neut # (Auto) (1.4-6.5) K/uL Lymph # (Auto) (1.2-3.4) K/uL Carson # (Auto) (0.11-0.59) K/uL Eos # (Auto) (0-0.5) K/uL Baso # (Auto) (0-0.2) K/uL Immature Gran # (Auto) (0.00-0.02) K/uL PT (9.0-12.0) Seconds INR (0.9-1.1) APTT (21.0-31.0) Seconds PTT Ratio Sodium (136-145) mmol/L Potassium (3.5-5.1) mmol/L Chloride (98-107) mmol/L Carbon Dioxide (21-32) mmol/L Anion Gap (3-11) BUN (6-23) mg/dl Creatinine (0.6-1.2) mg/dl Est Cr Clr Drug Dosing ml/min Est GFR ( Amer) ml/min Est GFR (Non-Af Amer) ml/min BUN/Creatinine Ratio (10-20) Glucose (70-99(Fasting)) mg/dl POC Glucose 152 H 152 H (70-99) mg/dl Calcium (8.5-10.1) mg/dl Magnesium (1.7-2.4) mg/dl Total Bilirubin (0.2-1.0) mg/dl AST (13-39) U/L ALT (7-52) U/L Alkaline Phosphatase (34-104) U/L Ammonia (18-72) umol/L Total Protein (6.0-8.3) gm/dl Albumin (3.4-5.0) gm/dl Globulin (2.5-4.0) gm/dl Albumin/Globulin Ratio (0.9-2) PG Care Time/CCT Total # of Minutes Spent Total Time Spent with Patient: Total time spent is greater than 50% in coordination of care (as documented) at patient's floor/unit and/or counseling patient: Coding Level of Care Code 73158 Subseq Hosp Care Lvl 3 Diagnoses Chronic diarrhea K52.9 Abdominal pain R10.9 UTI (urinary tract infection) N39.0 Hypomagnesemia E83.42 Fracture of fourth lumbar vertebra S32.049A Hypokalemia E87.6 Abnormal finding on breast imaging R92.8 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 GERD (gastroesophageal reflux disease) K21.9 Esophagitis presence: esophagitis presence not specified Hypothyroidism E03.9 Hypothyroidism type: unspecified Hyperlipidemia E78.5 Hyperlipidemia type: unspecified Diabetes mellitus, type 2 E11.9 Moeller's esophagus with esophagitis K22.70; K20.9 Hypertension I10 Hypertension type: primary hypertension Primary hyperparathyroidism E21.0 Anxiety and depression F41.9; F32.9 Thrombocytopenia D69.6 (1) Hyperlipidemia Hyperlipidemia type: unspecified Qualified Code(s): E78.5 - Hyperlipidemia, unspecified (2) Hypothyroidism Hypothyroidism type: unspecified Qualified Code(s): E03.9 - Hypothyroidism, unspecified (3) GERD (gastroesophageal reflux disease) Esophagitis presence: esophagitis presence not specified Qualified Code(s): K21.9 - Gastro-esophageal reflux disease without esophagitis (4) Hypertension Hypertension type: primary hypertension Qualified Code(s): I10 - Essential (primary) hypertension
[2021-07-17] MEDS: PHENAZOPYRIDINE HCL 200 MG TAB PO PRN (15:57)
[2021-07-17] MEDS: cefTRIAXone SODIUM 1,000 MG in DEXTROSE 5% 50 ML IV SCH (18:00)
[2021-07-17] MEDS: MULTIVITAMIN TAB PO SCH (21:21)
[2021-07-17] MEDS: ROSUVASTATIN CALCIUM 20 MG TAB PO SCH (21:22)
[2021-07-17] MEDS: oxyCODONE HCL IR 5 MG TAB (IMMEDIATE RELEASE) PO PRN (21:32)
[2021-07-18] MEDS: CLOTRIMAZOLE VAGINAL CR 7 APPLN/45 GM TUBE PV SCH ×2 (00:11→07:54)
[2021-07-18] MEDS: oxyCODONE HCL IR 5 MG TAB (IMMEDIATE RELEASE) PO PRN (06:02)
[2021-07-18] MEDS: LEVOTHYROXINE SODIUM 100 MCG TABLET PO SCH (06:02)
[2021-07-18 07:24] LABS: Hematocrit (blood only) 32.1 % (37-47); Hemoglobin 11.1 g/dL (12.0-16.0); Mean Corpuscular Hemoglobin 31.9 pg (25-34); Mean Corpuscular Hgb Conc 34.6 g/dL (32-36); Mean Corpuscular Volume 92.2 fL (80-100); RDW Coefficient of Variation 15.3 % (11.5-14.5); Red Blood Count 3.48 M/uL (4.2-5.4); White Blood Count 4.87 K/uL (4.8-10.8)
[2021-07-18 07:26] LABS: Mean Platelet Volume 8.8 fL (7.4-10.4); Platelet Count 72 K/uL (130-400)
[2021-07-18 07:41] LABS: INR 1.2 (0.9-1.1); Partial Thromboplastin Time 28.7 Seconds (21.0-31.0)
[2021-07-18 07:42] LABS: Basophils # (auto) 0.01 K/uL (0-0.2); Basophils % (auto) 0.2 %; Eosinophils % (auto) 4.1 %; Immature Granulocytes # (auto) 0.01 K/uL (0.00-0.02); Immature Granulocytes % (auto) 0.2 %; Lymphocytes # (auto) 1.52 K/uL (1.2-3.4); Lymphocytes % (auto) 31.2 %; Monocytes # (auto) 0.73 K/uL (0.11-0.59); Neutrophils % (auto) 49.3 %
[2021-07-18] MEDS: PARoxetine HCL 20 MG TAB PO SCH (07:52)
[2021-07-18] MEDS: POTASSIUM CHLORIDE CRTAB 20 MEQ TABCR PO SCH ×3 (07:52→20:06)
[2021-07-18] MEDS: FAMOTIDINE 20 MG TAB PO SCH ×2 (07:52→20:07)
[2021-07-18] MEDS: CINACALCET HCL 30 MG TAB PO SCH (07:52)
[2021-07-18] MEDS: PROPRANOLOL HCL 60 MG LA CAP PO SCH (07:52)
[2021-07-18 08:04] LABS: Albumin Globulin Ratio 1.7 (0.9-2); Albumin Level 3.5 gm/dl (3.4-5.0); BUN Creatinine Ratio 9.8 (10-20); Bilirubin,Total 2.6 mg/dl (0.2-1.0); Creatinine Clr Calc Pharmacy 51.4 ml/min; Est GFR (African American) 65.5 ml/min; Est GFR (Non-African American) 56.5 ml/min; Globulin 2.1 gm/dl (2.5-4.0); Magnesium 1.5 mg/dl (1.7-2.4); Potassium 3.5 mmol/L (3.5-5.1); Total Protein 5.6 gm/dl (6.0-8.3)
[2021-07-18] MEDS: INSULIN ASPART PER UNIT SC SCH ×4 (08:51→20:55)
[2021-07-18] MEDS: MAGNESIUM SULFATE / D5W 1 GM/100 ML BAG IV SCH ×3 (09:52→13:51)
[2021-07-18] MEDS: CHOLESTYRAMINE LIGHT 4 GM PKT PO SCH ×2 (09:54→21:14)
--- NOTE | 2021-07-18 14:46 | Gastroenterology Progress Note ---
Date of Service July 18, 2021 Assessment & Plan (1) Abdominal pain: (2) Chronic diarrhea: Plan: No current diarrhea Stool PCR pending as she still has not had a bowel movement since admission Continue cholestyramine 4 g p.o. twice daily Stopped metformin and omeprazole as may be contributing to diarrhea Imodium as needed Recommend outpatient colonoscopy with random colon biopsies to assess for microscopic colitis Admission and Anticipated Discharge Date Admission Date: July 15, 2021 Subjective Patient reports no diarrhea since coming to the hospital on Wednesday. She does complain of some left sided abdominal pain, 4/10 in intensity, non-radiating, alleviated with a heating pad. She states that she is eating OK, but her appetite, "isn't great." She denies any further complaints. Review of Systems Constitutional: as per Subjective / HPI Eyes: as per Subjective / HPI Ear, Nose, Mouth, Throat: as per Subjective / HPI Respiratory: as per Subjective / HPI Cardiovascular: as per Subjective / HPI Gastrointestinal: as per Subjective / HPI Musculoskeletal: as per Subjective / HPI Integumentary: as per Subjective / HPI Neurologic: as per Subjective / HPI Psychiatric: as per Subjective / HPI Endocrine: as per Subjective / HPI Hematologic / Lymphatic: as per Subjective / HPI Allergy / Immunological: as per Subjective / HPI Physical Exam Constitutional: WD/WN, vitals as above Gastrointestinal (Abdomen): Inspection/Auscultation: abdomen normal to inspection and normal bowel sounds; abdomen not distended Percussion/Palpation: + abdomen tender (LLQ) and abdomen soft; no guarding and abdomen not rigid Results & Data Results & Data ([facility]) Vital Signs (Past 12 Hours) Vital Signs Temp Pulse Resp BP Pulse Ox 07/18/21 07:40 37.0 C 82 18 127/69 95 PG Care Time/CCT Total # of Minutes Spent Total Time Spent with Patient: Total time spent is greater than 50% in coordination of care (as documented) at patient's floor/unit and/or counseling patient: Coding Level of Care Code 96628 Subseq Hosp Care Lvl 3 Diagnoses Abdominal pain R10.9 Chronic diarrhea K52.9
[2021-07-18] MEDS: cefTRIAXone SODIUM 1,000 MG in DEXTROSE 5% 50 ML IV SCH (17:20)
--- NOTE | 2021-07-18 19:27 | Hospitalist Progress Note ---
Date of Service July 18, 2021 Assessment & Plan (1) Chronic diarrhea: Plan: With years of chronic diarrhea but recently worsened with acute on chronic lower abdominal pain CT abdomen/pelvis consistent with cystitis, chronic shotty retroperitoneal lymphadenopathy, and some stranding in the left lower quadrant adjacent to the sigmoid colon and urinary bladder, no overt diverticulitis Had a colonoscopy approximately 1 year ago that only showed nonbleeding internal hemorrhoids Stool PCR pending as she has not had a bowel movement since admission for almost 3 days now-she is eating half her meals as per RN Started trial of cholestyramine 4 g p.o. twice daily which seems to be helping Stopped metformin and omeprazole as may be contributing to diarrhea Start Imodium as needed-has not used any doses-not needed She reports that the diarrhea has been disabling and she does not leave her house because of it Can also start Creon but will wait to see if cholestyramine helps first (which it is) Appreciate GI consultation-recommends outpatient colonoscopy with random b iopsies to look for microscopic colitis (2) Abdominal pain: Plan: Acute on chronic but seems more consistent with suprapubic pain from UTI at this time CT abdomen/pelvis with stable air-filled appendix from previous, stable shotty retroperitoneal lymphadenopathy, and some stranding around the sigmoid colon and bladder region but no diverticulitis Pain is improved in the suprapubic region but still requesting opioids. Pain improved with a heating pad alone today Discontinue IV Dilaudid due to confusion, can give oxycodone but cautioned her to use this sparingly given cirrhosis and being prone to confusion with opioids Trial of Pyridium -encouraged use as needed Continue to treat UTI with antibiotics -Continue Tylenol for mild pain -Also recommend outpatient referral to urology given chronic bladder spasms- perhaps she has interstitial cystitis? -could trial oxybutynin for bladder pain/spasms as well She is also describing intermittent rectal spasms which improved with direct pressure to the anal region. These come on after bowel movements. Seems consistent with anal fissure -Advised follow-up with GI as an outpt to see if anoscopy is indicated (3) UTI (urinary tract infection): Plan: CT suggestive of possible cystitis, with acute suprapubic pain but no dysuria Urinalysis does appear abnormal Urine culture growing pansensitive Klebsiella pneumonia Continue ceftriaxone and convert to p.o. Keflex on discharge to finish out 7-day course Added Pyridium for pain (4) Hypomagnesemia: Plan: Magnesium 1.2 upon admission-replaced but continues to remain low today at 1.5 Give 3 more grams of IV magnesium sulfate today Recheck laboratories in a.m. Likely secondary to diarrhea as well as poor p.o. intake and also may be complicated by PPI use which has been discontinued Hopefully once diarrhea is improved and her po intake improves, her mag levels will improve would not give po mag on discharge as this ca cause diarrhea-d/w pt and her check Mag as outpt after discharge also recommend dc-ing chlorthalidone on dc (5) Fracture of fourth lumbar vertebra: Plan: She does report some pain across her back along the pelvis Report on CT of abdomen/pelvis is subacute with 3 mm retropulsion She has no radiculopathy or weakness continue tylenol, oxycodone as needed for moderate to severe pain heating pad Consult orthopedic spine surgery appreciated-no brace recommended due to diarrhea, conservative measures, no lifting more than 5 pounds Recommend follow-up with orthopedic surgery as an outpatient in 2 to 3 weeks (6) Hypokalemia: Plan: Potassium was low on admission and was replaced-continues to be mildly low due to poor p.o. intake Continue potassium chloride but increase to 40 M EQ p.o. twice daily Continue to follow BMP, replace mag would not restart chlorthalidone as outpt on dc (was started for hypercalciuria) (7) Abnormal finding on breast imaging: Plan: With left breast densities noted inferiorly on CT abdomen/pelvis Advised patient she needs diagnostic mammogram and breast ultrasound as an outpatient (8) 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: Plan: With portal hypertension, splenomegaly, varices Continue propranolol She is not on lactulose due to chronic diarrhea Follow with GI routinely She is also seeing hepatology at [place] (9) GERD (gastroesophageal reflux disease): Plan: GERD/Moeller's esophagus- Change omeprazole to famotidine due to diarrhea that could be associated with PPI (10) Hypothyroidism: Plan: Continue levothyroxine 112 mcg daily TSH normal 06/03 (11) Hyperlipidemia: Plan: Continue Crestor 20 mg every morning (12) Diabetes mellitus, type 2: Plan: Hold dulaglutide and metformin Would not restart metformin as may be contributing to diarrhea Place on Accu-Cheks before meals and at bedtime with NovoLog coverage per scale (13) Moeller's esophagus with esophagitis: Plan: Change PPI to H2 roxann (14) Hypertension: Plan: dc chlorthalidone due to hypokalemia and low normal blood pressures Continue propranolol (15) Primary hyperparathyroidism: Plan: Likely contributing to acute L4 compression fracture Continue cinacalcet (16) Anxiety and depression: Plan: Continue lorazepam, paroxetine and zolpidem but made zolpidem as needed rather than scheduled (17) Thrombocytopenia: Plan: Secondary to hepatosplenomegaly/cirrhosis-stable today at 72 Follow CBC Plan: DVT prophylaxis-SCDs Disposition-continued stay for electrolyte replacement, awaiting improvement in acute abdominal pain, PT/OT consults placed Probable discharge to home tomorrow Admission and Anticipated Discharge Date Admission Date: July 15, 2021 Subjective Still c/o lower back pain and suprapubic pain. Is independent in room, washing hair in bathroom when I first saw her. Is forgetful at times. Did take an oxycodone this morning but then nurse reports pt had improvement in pain with a heating pad.Asks again about taking IV morphine or IV dilaudid but once I rem inded her that those meds made her confused and we need to focus on po pain control including non-opioid options, she was agreeable. Review of Systems Review of Systems: All systems reviewed & are unremarkable except as noted in HPI & below Physical Exam Constitutional: WD/WN, vitals as above Eyes: + scleral abnormality (Icterus present) ENMT: external ear and nose normal, oropharynx normal Neck: trachea midline, no thyromegaly Respiratory: normal respiratory effort, lungs clear to auscultation Cardiovascular: RRR, no murmur, no edema Chest (Breasts): Chest: normal inspection of chest Gastrointestinal (Abdomen): Inspection/Auscultation: normal bowel sounds; abdomen not distended Percussion/Palpation: + abdomen tender (in suprapubic region, mild, without guarding or rebound), abdomen soft and + hepatosplenomegaly Musculoskeletal: Extremities: extremities normal to inspection; no cyanosis and no clubbing Skin: no rashes, warm and dry Neurologic: moves all extremities and awake; no focal motor deficits Psychiatric: Orientation: alert, oriented to person, oriented to place and cooperative Lymphatic: no lymphedema Results & Data Results & Data ([facility]) Vital Signs (Past 12 Hours) Vital Signs Temp Pulse Resp BP Pulse Ox 07/18/21 15:28 36.7 C 77 18 124/75 96 07/18/21 07:40 37.0 C 82 18 127/69 95 Laboratory Results labs reviewed PG Care Time/CCT Total # of Minutes Spent Total Time Spent with Patient: Total time spent is greater than 50% in coordination of care (as documented) at patient's floor/unit and/or counseling patient: Coding Level of Care Code 49627 Subseq Hosp Care Lvl 3 Diagnoses Chronic diarrhea K52.9 Abdominal pain R10.9 UTI (urinary tract infection) N39.0 Hypomagnesemia E83.42 Fracture of fourth lumbar vertebra S32.049A Hypokalemia E87.6 Abnormal finding on breast imaging R92.8 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 GERD (gastroesophageal reflux disease) K21.9 Esophagitis presence: esophagitis presence not specified Hypothyroidism E03.9 Hypothyroidism type: unspecified Hyperlipidemia E78.5 Hyperlipidemia type: unspecified Diabetes mellitus, type 2 E11.9 Moeller's esophagus with esophagitis K22.70; K20.9 Hypertension I10 Hypertension type: primary hypertension Primary hyperparathyroidism E21.0 Anxiety and depression F41.9; F32.9 Thrombocytopenia D69.6 (1) Hyperlipidemia Hyperlipidemia type: unspecified Qualified Code(s): E78.5 - Hyperlipidemia, unspecified (2) Hypothyroidism Hypothyroidism type: unspecified Qualified Code(s): E03.9 - Hypothyroidism, unspecified (3) GERD (gastroesophageal reflux disease) Esophagitis presence: esophagitis presence not specified Qualified Code(s): K21.9 - Gastro-esophageal reflux disease without esophagitis (4) Hypertension Hypertension type: primary hypertension Qualified Code(s): I10 - Essential (primary) hypertension
[2021-07-18] MEDS: MULTIVITAMIN TAB PO SCH (20:06)
[2021-07-18] MEDS: ROSUVASTATIN CALCIUM 20 MG TAB PO SCH (20:07)
[2021-07-18] MEDS: ONDANSETRON INJ 2 MG/ML 2 ML VIAL IV PRN (21:54)
[2021-07-19] MEDS: LEVOTHYROXINE SODIUM 112 MCG TABLET PO SCH (05:40)
[2021-07-19] MEDS: ONDANSETRON INJ 2 MG/ML 2 ML VIAL IV PRN (08:31)
[2021-07-19 08:37] LABS: BUN Creatinine Ratio 8.8 (10-20); Calcium 9.4 mg/dl (8.5-10.1); Creatinine Clr Calc Pharmacy 51.4 ml/min; Est GFR (African American) 65.5 ml/min; Est GFR (Non-African American) 56.5 ml/min; Magnesium 1.6 mg/dl (1.7-2.4); Potassium 3.9 mmol/L (3.5-5.1)
[2021-07-19] MEDS: INSULIN ASPART PER UNIT SC SCH ×4 (09:23→21:13)
[2021-07-19] MEDS: POTASSIUM CHLORIDE CRTAB 20 MEQ TABCR PO SCH ×2 (09:24→21:23)
[2021-07-19] MEDS: CINACALCET HCL 30 MG TAB PO SCH (09:24)
[2021-07-19] MEDS: FAMOTIDINE 20 MG TAB PO SCH ×2 (09:24→21:50)
[2021-07-19] MEDS: PROPRANOLOL HCL 60 MG LA CAP PO SCH (09:24)
[2021-07-19] MEDS: PARoxetine HCL 20 MG TAB PO SCH (09:24)
[2021-07-19] MEDS: CHOLESTYRAMINE LIGHT 4 GM PKT PO SCH ×2 (09:25→21:24)
[2021-07-19] MEDS: CLOTRIMAZOLE VAGINAL CR 7 APPLN/45 GM TUBE PV SCH (09:25)
[2021-07-19] MEDS: MAGNESIUM SULFATE / D5W 1 GM/100 ML BAG IV SCH ×4 (10:18→17:06)
[2021-07-19 11:10] LABS: Adenovirus F 40/41 PCR Not Detected (NotDetected); Astrovirus PCR Not Detected (NotDetected); Campylobacter PCR Not Detected (NotDetected); Cryptosporidium PCR Not Detected (NotDetected); Cyclospora cayetanensis PCR Not Detected (NotDetected); Entamoeba histolytica PCR Not Detected (NotDetected); Enteroaggregative E.coli(EAEC) Not Detected (NotDetected); Enteropathogenic E.coli (EPEC) Not Detected (NotDetected); Enterotoxigenic E.coli (ETEC) Not Detected (NotDetected); Giardia lamblia PCR Not Detected (NotDetected); Norovirus GI/GII PCR Not Detected (NotDetected); Plesiomonas shigelloides PCR Not Detected (NotDetected); Rotavirus A PCR Not Detected (NotDetected); Salmonella PCR Not Detected (NotDetected); Sapovirus PCR Not Detected (NotDetected); Shiga-like Toxin E.coli (STEC) Not Detected (NotDetected); Shigella/Enteroinvasive E.coli Not Detected (NotDetected); Vibrio cholerae PCR Not Detected (NotDetected); Vibrio species PCR Not Detected (NotDetected); Yersinia enterocolitica PCR Not Detected (NotDetected)
[2021-07-19] MEDS: PHENAZOPYRIDINE HCL 200 MG TAB PO PRN (11:19)
[2021-07-19 12:43] LABS: Cdiff Antigen Positive; Cdiff Toxin A+B Negative Cdiff Toxin (Negative)
--- NOTE | 2021-07-19 14:11 | Hospitalist Progress Note ---
Date of Service July 19, 2021 Assessment & Plan (1) Chronic diarrhea: Plan: With years of chronic diarrhea but recently worsened with acute on chronic lower abdominal pain CT abdomen/pelvis consistent with cystitis, chronic shotty retroperitoneal lymphadenopathy, and some stranding in the left lower quadrant adjacent to the sigmoid colon and urinary bladder, no overt diverticulitis Had a colonoscopy approximately 1 year ago that only showed nonbleeding internal hemorrhoids SHe had no diarrhea x 3 days in the hospital, but then started having 4-5 episodes on 07/19 and also having nausea and no appetite, requiring Zofran Stool PCR test now positive for C> diff gene but neg for toxin---> regardless, will treat with 10 days of po Vanco and see if improves Started trial of cholestyramine 4 g p.o. twice daily which seems to be helping Stopped metformin and omeprazole as may be contributing to diarrhea -dc Imodium as contraindicated in C. diff She reports that the diarrhea has been disabling and she does not leave her house because of it Can also start Creon but will wait to see if cholestyramine helps first (which it is) Appreciate GI consultation-recommends outpatient colonoscopy with random biopsies to look for microscopic colitis Will keep again overnight to see if has improvement in nausea and diarrhea with starting po Vanco (2) Clostridioides difficile diarrhea: (3) Abdominal pain: Plan: Acute on chronic but seems more consistent with suprapubic pain from UTI at this time CT abdomen/pelvis with stable air-filled appendix from previous, stable shotty retroperitoneal lymphadenopathy, and some stranding around the sigmoid colon and bladder region but no diverticulitis Pain is improved in the suprapubic region Pain improved with a heating pad alone Discontinued IV Dilaudid due to confusion, can give oxycodone but cautioned her to use this sparingly given cirrhosis and being prone to confusion with opioids Trial of Pyridium -encouraged use as needed Continue to treat UTI with antibiotics -Continue Tylenol for mild pain -Also recommend outpatient referral to urology given chronic bladder spasms- perhaps she has interstitial cystitis? -could trial oxybutynin for bladder pain/spasms as well She is also describing intermittent rectal spasms which improved with direct pressure to the anal region. These come on after bowel movements. Seems consistent with anal fissure -Advised follow-up with GI as an outpt to see if anoscopy is indicated Also now treating for C. diff so will see if has improvement with this (4) UTI (urinary tract infection): Plan: CT suggestive of possible cystitis, with acute suprapubic pain but no dysuria Urinalysis does appear abnormal Urine culture growing pansensitive Klebsiella pneumonia Continue ceftriaxone and convert to p.o. Keflex on discharge to finish out 7-day course Added Pyridium for pain (5) Hypomagnesemia: Plan: Magnesium 1.2 upon admission-replaced but continues to remain low today at 1.6 Is improving Give 4 more grams of IV magnesium sulfate today especially as diarrhea has picked back up Recheck laboratories in a.m. Likely secondary to diarrhea as well as poor p.o. intake and also may be complicated by PPI use which has been discontinued Hopefully once diarrhea is improved and her po intake improves, her mag levels will improve would not give po mag on discharge as this ca cause diarrhea-d/w pt and her check Mag as outpt after discharge also recommend dc-ing chlorthalidone on dc (6) Fracture of fourth lumbar vertebra: Plan: She does report some pain across her back along the pelvis Report on CT of abdomen/pelvis is subacute with 3 mm retropulsion She has no radiculopathy or weakness continue tylenol, oxycodone as needed for moderate to severe pain heating pad Consult orthopedic spine surgery appreciated-no brace recommended due to diarrhea, conservative measures, no lifting more than 5 pounds Recommend follow-up with orthopedic surgery as an outpatient in 2 to 3 weeks (7) Hypokalemia: Plan: Potassium was low on admission and was replaced-continues to be mildly low due to poor p.o. intake Continue potassium chloride at 40 M EQ p.o. twice daily Continue to follow BMP, replace mag would not restart chlorthalidone as outpt on dc (was started for hypercalciuria) (8) Abnormal finding on breast imaging: Plan: With left breast densities noted inferiorly on CT abdomen/pelvis Advised patient she needs diagnostic mammogram and breast ultrasound as an outpatient (9) 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: Plan: With portal hypertension, splenomegaly, varices Continue propranolol She is not on lactulose due to chronic diarrhea Follow with GI routinely She is also seeing hepatology at [place] (10) GERD (gastroesophageal reflux disease): Plan: GERD/Moeller's esophagus- Change omeprazole to famotidine due to diarrhea that could be associated with PPI (11) Hypothyroidism: Plan: Continue levothyroxine 112 mcg daily TSH normal 06/03 (12) Hyperlipidemia: Plan: Continue Crestor 20 mg every morning (13) Diabetes mellitus, type 2: Plan: Hold dulaglutide and metformin Would not restart metformin as may be contributing to diarrhea Place on Accu-Cheks before meals and at bedtime with NovoLog coverage per scale (14) Moeller's esophagus with esophagitis: Plan: Changed PPI to H2 roxann (15) Hypertension: Plan: dc chlorthalidone due to hypokalemia and low normal blood pressures Continue propranolol (16) Primary hyperparathyroidism: Plan: Likely contributing to acute L4 compression fracture Continue cinacalcet (17) Anxiety and depression: Plan: Continue lorazepam, paroxetine and zolpidem but made zolpidem as needed rather than scheduled (18) Thrombocytopenia: Plan: Secondary to hepatosplenomegaly/cirrhosis-stable at 72 Follow CBC in AM Plan: DVT prophylaxis-SCDs Disposition-continued stay for electrolyte replacement, awaiting improvement in acute abdominal pain and nausea Hopeful for discharge to home tomorrow Admission and Anticipated Discharge Date Admission Date: July 15, 2021 Subjective Still having lower back pain and lower abd pain. Had a small hard stool this AM and since then had 4-5 more loose nonbloody stools. Had some dry heaves last nig ht and received ZOfran which helped. Still having very little appetite today. Stool PCR came back postiive for C. diff gene but neg for toxin. Discussed treatment of C. diff anyway to see if helps her issues Review of Systems Review of Systems: All systems reviewed & are unremarkable except as noted in HPI & below Physical Exam Constitutional: WD/WN, vitals as above Eyes: + scleral abnormality (Icterus present) Neck: trachea midline, no thyromegaly Respiratory: normal respiratory effort, lungs clear to auscultation Cardiovascular: RRR, no murmur, no edema Chest (Breasts): Chest: normal inspection of chest Gastrointestinal (Abdomen): Inspection/Auscultation: normal bowel sounds; abdomen not distended Percussion/Palpation: + abdomen tender (in suprapubic region, mild, without guarding or rebound), abdomen soft and + hepatosplenomegaly Musculoskeletal: Extremities: extremities normal to inspection; no cyanosis and no clubbing Skin: no rashes, warm and dry Neurologic: moves all extremities and awake; no focal motor deficits Psychiatric: Orientation: alert, oriented to person, oriented to place and cooperative Lymphatic: no lymphedema Results & Data Results & Data ([facility]) Vital Signs (Past 12 Hours) Vital Signs Temp Pulse Resp BP Pulse Ox 07/19/21 07:31 36.6 C 75 18 129/77 97 Laboratory Results 07/19/21 07/19/21 07/19/21 Range/Units 12:20 09:36 08:12 Sodium (136-145) mmol/L Potassium (3.5-5.1) mmol/L Chloride (98-107) mmol/L Carbon Dioxide (21-32) mmol/L Anion Gap (3-11) BUN (6-23) mg/dl Creatinine (0.6-1.2) mg/dl Est Cr Clr Drug Dosing ml/min Est GFR ( Amer) ml/min Est GFR (Non-Af Amer) ml/min BUN/Creatinine Ratio (10-20) Glucose (70-99(Fasting)) mg/dl POC Glucose 136 H 134 H (70-99) mg/dl Calcium (8.5-10.1) mg/dl Magnesium (1.7-2.4) mg/dl Stl C. cayetanensis PCR Not Detected (NotDetected) Stool Rotavirus A PCR Not Detected (NotDetected) Stl Adenov F 40/41 PCR Not Detected (NotDetected) Stool Astrovirus (PCR) Not Detected (NotDetected) Stool Campylobacter PCR Not Detected (NotDetected) Stl C.difficile Tox A&B Negative Cdiff Toxin (Negative) Stl C. diff Tox A/B PCR C.diff Gene Detected A (NotDetected) Stool Cryptosporidium PCR Not Detected (NotDetected) Stl E.coli Shiga Tox PCR Not Detected (NotDetected) Stl Enterotoxigenic E PCR Not Detected (NotDetected) Stool EPEC (PCR) Not Detected (NotDetected) Stool EAEC (PCR) Not Detected (NotDetected) Stl E. histolytica PCR Not Detected (NotDetected) Stool Giardia Lamblia PCR Not Detected (NotDetected) Stool Salmonella PCR Not Detected (NotDetected) Stool Sapovirus (PCR) Not Detected (NotDetected) Stl P. shigelloides PCR Not Detected (NotDetected) Stl Shigella/EIEC PCR Not Detected (NotDetected) St Y.enterocolitica PCR Not Detected (NotDetected) Stool Vibrio (PCR) Not Detected (NotDetected) Stl Vibrio cholerae PCR Not Detected (NotDetected) Stl Norovirus GI/GII PCR Not Detected (NotDetected) 07/19/21 07/18/21 07/18/21 Range/Units 07:10 21:57 20:54 Sodium 141 (136-145) mmol/L Potassium 3.9 (3.5-5.1) mmol/L Chloride 107 (98-107) mmol/L Carbon Dioxide 28 (21-32) mmol/L Anion Gap 6 (3-11) BUN 9 (6-23) mg/dl Creatinine 1.02 (0.6-1.2) mg/dl Est Cr Clr Drug Dosing 51.4 ml/min Est GFR ( Amer) 65.5 ml/min Est GFR (Non-Af Amer) 56.5 ml/min BUN/Creatinine Ratio 8.8 L (10-20) Glucose 132 H (70-99(Fasting)) mg/dl POC Glucose 118 H 116 H (70-99) mg/dl Calcium 9.4 (8.5-10.1) mg/dl Magnesium 1.6 L (1.7-2.4) mg/dl Stl C. cayetanensis PCR (NotDetected) Stool Rotavirus A PCR (NotDetected) Stl Adenov F 40/41 PCR (NotDetected) Stool Astrovirus (PCR) (NotDetected) Stool Campylobacter PCR (NotDetected) Stl C.difficile Tox A&B (Negative) Stl C. diff Tox A/B PCR (NotDetected) Stool Cryptosporidium PCR (NotDetected) Stl E.coli Shiga Tox PCR (NotDetected) Stl Enterotoxigenic E PCR (NotDetected) Stool EPEC (PCR) (NotDetected) Stool EAEC (PCR) (NotDetected) Stl E. histolytica PCR (NotDetected) Stool Giardia Lamblia PCR (NotDetected) Stool Salmonella PCR (NotDetected) Stool Sapovirus (PCR) (NotDetected) Stl P. shigelloides PCR (NotDetected) Stl Shigella/EIEC PCR (NotDetected) St Y.enterocolitica PCR (NotDetected) Stool Vibrio (PCR) (NotDetected) Stl Vibrio cholerae PCR (NotDetected) Stl Norovirus GI/GII PCR (NotDetected) 07/18/21 Range/Units 17:11 Sodium (136-145) mmol/L Potassium (3.5-5.1) mmol/L Chloride (98-107) mmol/L Carbon Dioxide (21-32) mmol/L Anion Gap (3-11) BUN (6-23) mg/dl Creatinine (0.6-1.2) mg/dl Est Cr Clr Drug Dosing ml/min Est GFR ( Amer) ml/min Est GFR (Non-Af Amer) ml/min BUN/Creatinine Ratio (10-20) Glucose (70-99(Fasting)) mg/dl POC Glucose 115 H (70-99) mg/dl Calcium (8.5-10.1) mg/dl Magnesium (1.7-2.4) mg/dl Stl C. cayetanensis PCR (NotDetected) Stool Rotavirus A PCR (NotDetected) Stl Adenov F 40/41 PCR (NotDetected) Stool Astrovirus (PCR) (NotDetected) Stool Campylobacter PCR (NotDetected) Stl C.difficile Tox A&B (Negative) Stl C. diff Tox A/B PCR (NotDetected) Stool Cryptosporidium PCR (NotDetected) Stl E.coli Shiga Tox PCR (NotDetected) Stl Enterotoxigenic E PCR (NotDetected) Stool EPEC (PCR) (NotDetected) Stool EAEC (PCR) (NotDetected) Stl E. histolytica PCR (NotDetected) Stool Giardia Lamblia PCR (NotDetected) Stool Salmonella PCR (NotDetected) Stool Sapovirus (PCR) (NotDetected) Stl P. shigelloides PCR (NotDetected) Stl Shigella/EIEC PCR (NotDetected) St Y.enterocolitica PCR (NotDetected) Stool Vibrio (PCR) (NotDetected) Stl Vibrio cholerae PCR (NotDetected) Stl Norovirus GI/GII PCR (NotDetected) PG Care Time/CCT Total # of Minutes Spent Total Time Spent with Patient: Total time spent is greater than 50% in coordination of care (as documented) at patient's floor/unit and/or counseling patient: Coding Level of Care Code 38766 Subseq Hosp Care Lvl 3 Diagnoses Chronic diarrhea K52.9 Abdominal pain R10.9 UTI (urinary tract infection) N39.0 Hypomagnesemia E83.42 Fracture of fourth lumbar vertebra S32.049A Hypokalemia E87.6 Abnormal finding on breast imaging R92.8 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 GERD (gastroesophageal reflux disease) K21.9 Esophagitis presence: esophagitis presence not specified Hypothyroidism E03.9 Hypothyroidism type: unspecified Hyperlipidemia E78.5 Hyperlipidemia type: unspecified Diabetes mellitus, type 2 E11.9 Moeller's esophagus with esophagitis K22.70; K20.9 Hypertension I10 Hypertension type: primary hypertension Primary hyperparathyroidism E21.0 Anxiety and depression F41.9; F32.9 Thrombocytopenia D69.6 Clostridioides difficile diarrhea A04.72 (1) Hyperlipidemia Hyperlipidemia type: unspecified Qualified Code(s): E78.5 - Hyperlipidemia, unspecified (2) Hypothyroidism Hypothyroidism type: unspecified Qualified Code(s): E03.9 - Hypothyroidism, unspecified (3) GERD (gastroesophageal reflux disease) Esophagitis presence: esophagitis presence not specified Qualified Code(s): K21.9 - Gastro-esophageal reflux disease without esophagitis (4) Hypertension Hypertension type: primary hypertension Qualified Code(s): I10 - Essential (primary) hypertension
[2021-07-19] MEDS: RASPBERRY SYRUP 5 ML UDP PO SCH ×2 (14:43→21:34)
[2021-07-19] MEDS: VANCOMYCIN HCL 125 MG/2.5ML SOLN PO SCH ×2 (14:43→21:34)
[2021-07-19] MEDS: cefTRIAXone SODIUM 1,000 MG in DEXTROSE 5% 50 ML IV SCH (16:41)
[2021-07-19] MEDS ORDERED: Nursing to Pharmacy Communication SCH ×2 (18:30→18:45)
[2021-07-19] MEDS: ROSUVASTATIN CALCIUM 20 MG TAB PO SCH (21:23)
[2021-07-19] MEDS: MULTIVITAMIN TAB PO SCH (21:23)
[2021-07-20] MEDS: RASPBERRY SYRUP 5 ML UDP PO SCH ×4 (01:40→17:52)
[2021-07-20] MEDS: VANCOMYCIN HCL 125 MG/2.5ML SOLN PO SCH ×4 (01:40→17:52)
[2021-07-20] MEDS: LEVOTHYROXINE SODIUM 100 MCG TABLET PO SCH (06:00)
[2021-07-20] MEDS: PHENAZOPYRIDINE HCL 200 MG TAB PO PRN (08:25)
[2021-07-20] MEDS: CLOTRIMAZOLE VAGINAL CR 7 APPLN/45 GM TUBE PV SCH (08:25)
[2021-07-20] MEDS: CINACALCET HCL 30 MG TAB PO SCH (08:25)
[2021-07-20] MEDS: PARoxetine HCL 20 MG TAB PO SCH (08:25)
[2021-07-20] MEDS: PROPRANOLOL HCL 60 MG LA CAP PO SCH (08:25)
[2021-07-20] MEDS: POTASSIUM CHLORIDE CRTAB 20 MEQ TABCR PO SCH (08:25)
[2021-07-20] MEDS: INSULIN ASPART PER UNIT SC SCH ×3 (08:32→17:40)
[2021-07-20] MEDS: FAMOTIDINE 20 MG TAB PO SCH (09:24)
[2021-07-20 09:32] LABS: Hematocrit (blood only) 34.4 % (37-47); Hemoglobin 11.9 g/dL (12.0-16.0); Mean Corpuscular Hemoglobin 32.4 pg (25-34); Mean Corpuscular Hgb Conc 34.6 g/dL (32-36); Mean Corpuscular Volume 93.7 fL (80-100); RDW Coefficient of Variation 15.4 % (11.5-14.5); RDW Standard Deviation 52.8 fL (36.4-46.3); Red Blood Count 3.67 M/uL (4.2-5.4); White Blood Count 6.24 K/uL (4.8-10.8)
[2021-07-20 09:36] LABS: Platelet Count 91 K/uL (130-400)
[2021-07-20 09:49] LABS: Basophils # (auto) 0.02 K/uL (0-0.2); Basophils % (auto) 0.3 %; Eosinophils # (auto) 0.32 K/uL (0-0.5); Eosinophils % (auto) 5.1 %; Immature Granulocytes # (auto) 0.01 K/uL (0.00-0.02); Immature Granulocytes % (auto) 0.2 %; Lymphocytes # (auto) 2.05 K/uL (1.2-3.4); Lymphocytes % (auto) 32.9 %; Monocytes # (auto) 0.69 K/uL (0.11-0.59); Monocytes % (auto) 11.1 %; Neutrophils # (auto) 3.15 K/uL (1.4-6.5); Neutrophils % (auto) 50.4 %
[2021-07-20] MEDS: CHOLESTYRAMINE LIGHT 4 GM PKT PO SCH (10:25)
[2021-07-20 10:28] LABS: Potassium 4.5 mmol/L (3.5-5.1)
[2021-07-20 10:29] LABS: Albumin Globulin Ratio 1.5 (0.9-2); Albumin Level 3.6 gm/dl (3.4-5.0); BUN Creatinine Ratio 8.5 (10-20); Bilirubin,Total 2.8 mg/dl (0.2-1.0); Creatinine Clr Calc Pharmacy 49.5 ml/min; Est GFR (African American) 62.5 ml/min; Est GFR (Non-African American) 53.9 ml/min; Globulin 2.4 gm/dl (2.5-4.0); Magnesium 1.6 mg/dl (1.7-2.4)
[2021-07-20] MEDS: MAGNESIUM SULFATE / D5W 1 GM/100 ML BAG IV SCH ×3 (11:52→16:30)
--- NOTE | 2021-07-20 14:13 | Discharge Summary ---
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 The patient presents with an acute worsening of her ongoing diarrhea at 11:00 last evening. She reports that over the past few months she has been sleeping up to 20 hours a day, and is unable to get out of bed due to diarrhea causing weakness. She denies any blood in the stool or blood in urine. She does have some intermittent lightheadedness and dizziness. She denies any recent travels or sick exposures. Principal Diagnosis Intractable diarrhea, Clostridium difficile diarrhea, acute on chronic abdominal pain, UTI, Lumbar vertebral compression fracture Discharge Exam Constitutional WD/WN, vitals as above Eyes + scleral abnormality (Icterus present) ENMT external ear and nose normal, oropharynx normal Neck trachea midline, no thyromegaly Respiratory normal respiratory effort, lungs clear to auscultation Cardiovascular RRR, no murmur, no edema Chest (Breasts) Chest: normal inspection of chest Gastrointestinal (Abdomen) Inspection/Auscultation: normal bowel sounds; abdomen not distended Percussion/Palpation: + abdomen tender (in suprapubic region, mild, without guarding or rebound), abdomen soft and + hepatosplenomegaly Musculoskeletal Extremities: extremities normal to inspection; no cyanosis and no clubbing Skin no rashes, warm and dry Neurologic moves all extremities and awake; no focal motor deficits Psychiatric A+Ox3, euthymic affect Lymphatic no lymphedema Discharge Data Allergies Allergy/AdvReac Type Severity Reaction Status Date / Time bee venom protein (honey bee) Allergy Severe Anaphylaxis Verified 07/15/21 08:54 Influenza Virus Vaccines Allergy Severe Anaphylaxis Verified 07/15/21 08:54 tetracycline AdvReac Severe Severe Verified 07/15/21 08:54 stomach pains Consultations 07/15/21 11:26 ED Decision to Admit Stat 07/15/21 16:42 Consult Gastroenterology Routine 07/16/21 09:30 Consult Orthopedic Surgery Routine Ordered Studies 07/15/21 08:40 CT abd pelvis IV con only Stat Hospital Course (1) Chronic diarrhea: With years of chronic diarrhea but recently worsened with acute on chronic lower abdominal pain and development of N/V and worsening diarrhea in the last 2-3 weeks prior to admission -She reports that the diarrhea has been disabling and she does not leave her house because of it CT abdomen/pelvis consistent with cystitis, chronic shotty retroperitoneal lymphadenopathy, and some stranding in the left lower quadrant adjacent to the sigmoid colon and urinary bladder, no overt diverticulitis Had a colonoscopy approximately 1 year ago that only showed nonbleeding internal hemorrhoids, but no random biopsies done She had no diarrhea x 3 days in the hospital likely secondary to taking oxycodone and opioids as well as starting cholestyramine Then started having 4-5 episodes of diarrhea on 07/19 and also having nausea and no appetite, requiring Zofran Stool PCR test now positive for C. diff gene but neg for toxin---> regardless, will treat with 10 days of po Vanco and see if improves-after 24 hrs on po Vanco, already feeling tremendously better-no further diarrhea, no further nausea, is eating well. -continue cholestyramine 4 g p.o. twice daily on discharge -Stopped metformin and omeprazole as may be contributing to diarrhea -dc Imodium as contraindicated in C. diff -dc to home on 9 more days of po Vanco Appreciate GI consultation-recommends outpatient colonoscopy with random biopsies to look for microscopic colitis (2) Clostridioides difficile diarrhea: as above (3) Abdominal pain: Acute on chronic but seems more consistent with suprapubic pain from UTI at this time but could me mild sigmoid colitis given stranding around sigmoid and bladder on CT CT abdomen/pelvis with stable air-filled appendix from previous, stable shotty retroperitoneal lymphadenopathy, and some stranding around the sigmoid colon and bladder region but no diverticulitis Pain is improved in the suprapubic region with pyridium and treatment of UTI Pain improved with a heating pad as well Discontinued IV Dilaudid due to confusion, can give oxycodone but cautioned her to use this sparingly given cirrhosis and being prone to confusion with opioids Trial of Pyridium -encouraged use as needed -Continue to treat UTI with antibiotics -Continue Tylenol for mild pain -Also recommend outpatient referral to urology given chronic bladder spasms- perhaps she has interstitial cystitis? -could consider trial oxybutynin for bladder pain/spasms as well as outpt if persists She is also describing intermittent rectal spasms which improved with direct pressure to the anal region. These come on after bowel movements. Seems consistent with anal fissure -Advised follow-up with GI as an outpt to see if anoscopy is indicated Also now treating for C. diff so will see if has improvement with this (4) UTI (urinary tract infection): CT suggestive of possible cystitis, with acute suprapubic pain but no dysuria Urinalysis abnormal Urine culture growing pansensitive Klebsiella pneumonia Received ceftriaxone x 5 days and convert to p.o. Keflex on discharge to finish out 7-day course continue Pyridium for pain (5) Hypomagnesemia: Magnesium 1.2 upon admission-replaced but continued to remain low despite replacement at 1.6 on a daily basis Diarrhea now improving and po intake improving - may also be caused by PPI use which has been discontinued Hopefully once diarrhea is improved and her po intake improves, her mag levels will improve will give trial of po mag on discharge but warned this can cause diarrhea-d/w pt and her check Mag as outpt after discharge with PCP also recommend discontinuing chlorthalidone on dc (6) Fracture of fourth lumbar vertebra: She does report some pain across her back along the pelvis Report on CT of abdomen/pelvis is subacute with 3 mm retropulsion She has no radiculopathy or weakness continue tylenol, oxycodone as needed for moderate to severe pain heating pad Consult orthopedic spine surgery appreciated-no brace recommended due to diarrhea, conservative measures, no lifting more than 5 pounds. Did not think s he would tolerate a back brace due to chronic diarrhea Recommend follow-up with orthopedic surgery as an outpatient in 2 to 3 weeks (7) Hypokalemia: Potassium was low on admission and was replaced-due to GI losses and chlorthalidone use Continue potassium chloride at 20 M EQ p.o. twice daily on discharge Continue to follow BMP,mag as outpt with PCP would not restart chlorthalidone as outpt on dc (was started for hypercalciuria) (8) Abnormal finding on breast imaging: With left breast densities noted inferiorly on CT abdomen/pelvis Advised patient she needs diagnostic mammogram and breast ultrasound as an outpatient (9) 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: With portal hypertension, splenomegaly, varices Continue propranolol She is not on lactulose due to chronic diarrhea Follow with GI routinely She is also seeing hepatology at [facility] (10) GERD (gastroesophageal reflux disease): GERD/Moeller's esophagus- Change omeprazole to famotidine due to diarrhea that could be associated with PPI (11) Hypothyroidism: Continue levothyroxine 112 mcg daily TSH normal 06/03 (12) Hyperlipidemia: Continue Crestor 20 mg every morning (13) Diabetes mellitus, type 2: Hold dulaglutide and metformin Would not restart metformin as may be contributing to diarrhea required very minimal Novolog here (14) Moeller's esophagus with esophagitis: Changed PPI to H2 roxann (15) Hypertension: dc chlorthalidone due to hypokalemia and low normal blood pressures Continue propranolol (16) Primary hyperparathyroidism: Likely contributing to acute L4 compression fracture Continue cinacalcet (17) Anxiety and depression: Continue lorazepam, paroxetine and zolpidem but made zolpidem as needed rather than scheduled (18) Thrombocytopenia: Secondary to hepatosplenomegaly/cirrhosis-stable at 92 Follow CBC as outpt DVT prophylaxis-SCDs Disposition-dc to home Total Time Total Time Spent Total Time Spent (In Minutes): 35 min Discharge Plan Discharge Items Patient Disposition: Home - Self-Care Reason For Visit: HYPOMAGNESEMIA, REBOLLAR CIRRHOSIS, UTI Discharge Diagnosis: Clostridium difficile diarrhea, hypomagnesemia, UTI, abdominal pain, nausea Condition on Discharge: Good Activity: As commented below Lifting: No more than 5 pounds Bathing: No limitations Exercise/Sports: As tolerated Exercise Comment: No heavy exertion until after your spine fracture heals Weightbearing: Full weightbearing Non-emergency contact: Primary Care Provider and Wireless Team Member Call non-emergency contact if: you have any medication questions, your symptoms worsen, your pain is not controlled, your pain is worsening, your pain is concerning for you and your temperature is above 101 Follow-up/Referrals: Wilton Storey MD [Physician] - 08/15/21 10:30 am (Please call for an appointment for an evaluation for your chronic bladder pain. Appointment will be with Dr. Palmer.) Abelardo Cheng DO [Surgeon] - 07/29/21 9:30 am (Follow up within 2-3 weeks for your vertebral compression fracture) Reza Cid MD [Primary Care Provider] - 07/24/21 12:50 pm (Please follow up within 1-2 weeks.) Noe García [Family Provider] - 08/19/21 9:40 am (Please call for follow up appointment and colonoscopy.) Diet: Carb Consistent or DM2 and Low Sodium (2gm) Addtl Attending Provider Instructions: You were admitted for diarrhea, low magnesium levels, and a UTI. You were found to have an infection in your stool called Clostridium difficile and this will be treated with an antibiotic called Vancomycin. Please finish out 9 more days of this. You were also started on a medication called cholestyramine to help slow down your diarrhea-please take this at least one hour after you take your other medications because it can cause poor absorption of your other medications. Your omeprazole and metformin medications were also stopped as these can cause diarrhea. Please follow up with your GI doctor to discuss having another colonoscopy with biopsies to rule out microscopic colitis. Your UTI was treated with antibiotics through the IV and you will need to finish out two more days of cephalexin for this infection. You can take the Pyridium as needed for bladder pain-this may make your urine turn orange. As we discussed, please follow up with a Urologist regarding your chronic lower abdominal pain to see if this could be related to a bladder issue. For your lumbar compression fracture-this is healing. You can use a heating pad, take Tylenol for mild-moderate pain, and only take oxycodone very sparingly for severe pain. Please follow up with the Orthopedic Spine surgeon for this. Your magnesium levels have been chronically low likely secondary to poor oral intake of food plus your chronic diarrhea. You had a lot of magnesium replaced through the IV. Hopefully now that your nausea and diarrhea have improved, your magnesium levels should improve. You should STOP taking the chlorthalidone recently prescribed as this may exacerbate your low magnesium and potassium levels. You can try taking a daily magnesium supplement, but this can cause diarrhea so please watch for that. You should have your magnesium levels checked by your PCP within the week. Pending Studies at Discharge: No Stand-Alone Forms: [facility] Order Prescriptions: New cholestyramine-aspartame [Cholestyramine Light] 4 gram Powder In Packet 4 g PO BID@1000,2200 Qty: 60 RF: 0 famotidine 20 mg Tablet 20 mg PO BID Qty: 60 RF: 0 clotrimazole 1 % Cream 1 applic vaginal DAILY 5 Days Qty: 45 RF: 0 phenazopyridine [Pyridium] 200 mg Tablet 200 mg PO TID PRN (Reason: bladder pain) Qty: 30 RF: 0 vancomycin 125 mg capsule 125 mg PO QID 9 Days Qty: 36 RF: 0 magnesium 250 mg tablet 250 mg PO DAILY Qty: 30 RF: 0 oxycodone-acetaminophen 5-325 mg tablet 1 tab PO Q8H PRN (Reason: moderate-severe pain) Qty: 10 RF: 0 cephalexin 500 mg capsule 500 mg PO BID Qty: 4 RF: 0 Continued levothyroxine 100 mcg tablet 100 mcg PO .COMPLEX Qty: 30 RF: 3 levothyroxine 112 mcg tablet 112 mcg PO .COMPLEX Qty: 45 RF: 1 dulaglutide 3 mg/0.5 mL pen injector 3 mg subcut .weekly 90 Days Qty: 6 RF: 3 One-A-Day Women's Active 18 mg iron- 400 mcg-180 mg tablet 1 tab PO HS RF: 0 lorazepam 1 mg tablet 1 mg PO DAILY PRN (Reason: Sleep) RF: 0 cinacalcet 30 mg tablet 30 mg PO DAILY RF: 0 (DME) FreeStyle Lisy 2 Sensor Kit See Rx Instructions miscellaneous .MEDSUPPLY Qty: 2 RF: 11 (DME) OneTouch Verio test strips Strip See Rx Instructions .Route RF: 0 rosuvastatin [Crestor] 20 mg tablet 20 mg PO HS RF: 0 paroxetine HCl 20 mg tablet 20 mg PO QAM RF: 0 potassium chloride [Klor-Con M20] 20 mEq Tablet,Er Particles/Crystals 20 meq PO BID Qty: 60 RF: 0 valacyclovir 1 gram tablet 1 mg PO BID PRN (Reason: Other) RF: 0 propranolol 20 mg tablet 100 mg PO DAILY RF: 0 Women's 50 Plus Multivitamin 400 mcg-500 mg calcium-20 mcg Tablet 1 tab PO HS RF: 0 Crestor 20 mg 20 mg PO QAM RF: 0 Changed zolpidem 5 mg tablet 5 mg PO HS PRN (Reason: insomnia) Qty: 0 RF: 0 Discontinued metformin 500 mg tablet 1,000 mg PO BID RF: 0 chlorthalidone 25 mg tablet 25 mg PO DAILY Qty: 90 RF: 3 omeprazole 40 mg capsule,delayed release(DR/EC) 40 mg PO QDL RF: 0 Discharge Orders: Discharge Order (Routine); Ordered 05/08/22 Ordered By: Kristel Correa/Other Patient Handouts: What Is C. Diff? Admission Data Admit Date/Time: 07/15/21 12:16 Attending Provider: Kristel Montiel Admit Provider: Bernardo Vences Primary Care Provider: Reza Cid Other Providers: Bernardo Vences ; Noe García ; Abelardo Cheng Other Interventions: Discharge Summary Assessment (RN) Last Done: 07/20/21 18:07 Coding Level of Care Code D/C DAY MANAGEMENT >30 MINS Diagnoses Chronic diarrhea K52.9 Clostridioides difficile diarrhea A04.72 Abdominal pain R10.9 UTI (urinary tract infection) N39.0 Hypomagnesemia E83.42 Fracture of fourth lumbar vertebra S32.049A Hypokalemia E87.6 Abnormal finding on breast imaging R92.8 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 GERD (gastroesophageal reflux disease) K21.9 Esophagitis presence: esophagitis presence not specified Hypothyroidism E03.9 Hypothyroidism type: unspecified Hyperlipidemia E78.5 Hyperlipidemia type: unspecified Diabetes mellitus, type 2 E11.9 Moeller's esophagus with esophagitis K22.70; K20.9 Hypertension I10 Hypertension type: primary hypertension Primary hyperparathyroidism E21.0 Anxiety and depression F41.9; F32.9 Thrombocytopenia D69.6
[2021-07-20] MEDS: cefTRIAXone SODIUM 1,000 MG in DEXTROSE 5% 50 ML IV SCH (17:34)
== END 2021-07-20 19:16 | disposition home or self-care (01) | DRG 372 ==
LOC: ED 08:11 → SUATTDRO 12:16 → 2N 12:16 → 3N 07-17 22:15

== ENCOUNTER 2021-10-21 17:40 | Inpatient (IN) ==
[2021-10-21 19:59] LABS: Basophils # (auto) 0.02 K/uL (0-0.2); Basophils % (auto) 0.5 %; Eosinophils # (auto) 0.19 K/uL (0-0.50); Eosinophils % (auto) 4.5 %; Hematocrit (blood only) 36.2 % (34.1-44.9); Hemoglobin 12.7 g/dl (12.0-16.0); Immature Granulocytes # (auto) 0.01 K/uL (0.00-0.02); Immature Granulocytes % (auto) 0.2 %; Lymphocytes # (auto) 1.44 K/uL (1.2-3.4); Mean Platelet Volume 8.8 fL (9.4-12.3); Monocytes # (auto) 0.52 K/uL (0.24-0.82); Monocytes % (auto) 12.3 %; Neutrophils # (auto) 2.05 K/uL (1.4-6.5); Neutrophils % (auto) 48.5 %; Platelet Count 116 K/uL (130-400); White Blood Count 4.23 K/ul (4.8-10.8)
[2021-10-21 20:23] LABS: Mean Corpuscular Hemoglobin 31.4 pg (25.0-34.0); Mean Corpuscular Hgb Conc 35.1 g/dL (32.0-36.0); Mean Corpuscular Volume 89.6 fL (80.0-100.0); RDW Coefficient of Variation 15.1 % (11.5-14.5); RDW Standard Deviation 49.7 fL (36.4-46.3); Red Blood Count 4.04 M/uL (3.93-5.22)
[2021-10-21 20:26] LABS: Alanine Aminotransferase 46 U/L (7-52); Albumin Globulin Ratio 1.6 (0.9-2); Albumin Level 3.9 gm/dl (3.4-5.0); Alkaline Phosphatase 135 U/L (34-104); Anion Gap 11 (3-11); Aspartate Aminotransferase 82 U/L (13-39); BUN Creatinine Ratio 10.2 (10-20); Bilirubin,Total 5.1 mg/dl (0.2-1.0); Blood Urea Nitrogen 10 mg/dl (6-23); Calcium 10.6 mg/dl (8.5-10.1); Carbon Dioxide 23 mmol/L (21-32); Chloride 104 mmol/L (98-107); Est GFR (African American) 68.7 ml/min; Est GFR (Non-African American) 59.3 ml/min; Globulin 2.4 gm/dl (2.5-4.0); Glucose 164 mg/dl (70-99(Fasting)); Potassium 3.1 mmol/L (3.5-5.1); Sodium 138 mmol/L (136-145); Total Protein 6.3 gm/dl (6.0-8.3)
[2021-10-21 20:40] LABS: Appearance Urine Clear (Clear); Bacteria Urine Automated Negative (Negative); Bilirubin Urine Negative (Negative); Blood Urine Negative (Negative); Color Urine Dark Yellow; Epithelial Cell Urine Auto >30 /lpf (0-5); Glucose Urine UA Negative (Negative); Ketones Urine Negative (Negative); Leukocyte Esterase Urine 1+ (Negative); Nitrite Urine Negative (Negative); Protein Urine Negative (Negative); RBC Urine Automated 0-4 /hpf (0-4); Specific Gravity Urine 1.018 (1.000-1.030); Urobilinogen Urine Negative (Negative)
[2021-10-21] MEDS ORDERED: SODIUM CHLORIDE 0.9% 1000ML 500 ML IV ONE (21:28)
[2021-10-21] MEDS ORDERED: ONDANSETRON INJ 2 MG/ML 2 ML VIAL IV STA (21:28)
--- NOTE | 2021-10-21 21:37 | Emergency Department Note ---
Impression & Plan Acute hepatic encephalopathy, Hypokalemia, Hypomagnesemia, Hyperbilirubinemia, Headache ED Provider Note NAME: SHOLA WYNN AGE: 66 SEX: F : 1955 ARRIVES VIA: Walk-In INFORMANT: Patient, patient's significant other ED PROVIDER(S): Reza Darling DO CHIEF COMPLAINT: Altered mental status HPI: The patient is a 66-year-old female who presented to the emergency department for an evaluation of altered mental status. The patient symptoms have slowly been worsening over the course the last week. She denies having any falls but she does complain of a headache. Her significant other states she is also had episodes where she starts to shake. There is been no reported fever. There is been no reported vomiting but the patient does describe nausea. She also has had some dysuria and some frequency and thought she may have had a urinary tract infection. She has a history of urinary tract infection in the past. The patient has not been seen by her family doctor. She was in our waiting room for approximately 3 hours and had laboratory studies placed prior to my evaluation. The patient denies having any diarrhea. She has had no lower extremity swelling or pain. ROS: See above HPI for pertinent positives & negatives. A total of 10 systems reviewed and were otherwise negative. PAST MEDICAL HISTORY: See Below PAST SURGICAL HISTORY: See Below FAMILY HISTORY: See Below SOCIAL HISTORY: See Below HOME MEDICATIONS: See Below ALLERGIES: See Below VITALS: See Below PHYSICAL EXAMINATION: GENERAL: The patient is awake and alert. The patient is resting comfortably. EYES: The conjunctivae are cleaanicteric r. The pupils are round and reactive. EARS, NOSE, MOUTH AND THROAT: The nose is without any evidence of any deformity. Mucous membranes are dry. NECK: The neck is nontender and supple. RESPIRATORY: Normal respiratory effort is noted there is no evidence of wheezing rhonchi or rales CARDIOVASCULAR: Regular rate and rhythm noted there no murmurs rubs or gallops normal S1 normal S2. GASTROINTESTINAL: The abdomen is soft. Abdomen is nontender. MUSCULOSKELETAL/EXTREMITIES: There is no evidence of gross deformity full range of motion is noted in the hips and shoulders. SKIN: There is no obvious evidence of any rash. There are no petechiae, pallor or cyanosis noted. NEUROLOGIC: Patient is awake alert and oriented to person place and time. She recognizes her significant other. Patellar tendon reflexes are 3+ bilaterally. MEDICAL DECISION MAKING: The patient is a 66-year-old female who presented to the emergency department with her for an evaluation of headache and altered mental status. She has a history of nonalcoholic cirrhosis. She was awake and alert and did not appear to have any significant confusion on my evaluation however her was concerned because she did not appear to be at her baseline. She was very hyperreflexic. Overall her condition did appear to be consistent with more of a hepatic encephalopathy. Her ammonia level was elevated. She was treated with lactulose. She was also found have a low magnesium as well as low potassium. Those were replaced as well. She had dysuria and frequency but urinalysis does not appear to be consistent with urinary tract infection. She was reevaluated multiple times. I discussed her condition with the on-call [facility] hospitalist. They have agreed to evaluate the patient in the emergency department for further management and disposition. Triage Nursing notes reviewed. Prior medical records reviewed Vital Signs: reviewed and remarkable for elevated blood pressure. Differential diagnosis: Infection, hypoglycemia, electrolyte abnormalities, overdose, toxicologic, cardiac sources, intracerebral event, neurologic, trauma, as well as other pathologies. ER treatment provided: See below Diagnostics interpreted by me: ECG: EKG was obtained in the emergency department. My interpretation is normal sinus rhythm at [address] segment depressions were noted. There is no ectopy. This was compared to a tracing from July 15, 2021. No changes were noted Cardiac Monitoring: An order was placed for continuous cardiac monitoring. The monitor shows a rate of 86 bpm with sinus rhythm. Laboratory studies: As stated above and show below. Imaging studies: See below Consultation(s): I discussed this case with Dr. Wynn who is on-call for the [facility]ist group. Past Med/Surg History Medical History Anemia HX Arthritis Moeller's esophagus with esophagitis Chronic diarrhea SOMETIMES Depression Diabetes mellitus, type 2 Diverticulitis of sigmoid colon Diverticulosis GERD (gastroesophageal reflux disease) GI bleed RECENT HOSPITALIZED - PT DENIES HX GI BLEED Heel spur B/L feet Hiatal hernia History of colon polyps BENIGN History of fractured vertebra CURRENT, HX FALL JULY 2021 - FELL OF THE TOILET - NO INTERVENTION AT PRESENT/ [facility] FOR TO DISCUSS TX OPTIONS - POTENTIAL BACK BRACE History of kidney stones Hyperlipidemia Hypertension NO CURRENT MEDS 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) Spleen enlarged MONITORS - PT REPORTS FROM THE REBOLLAR Stucco keratoses Temporomandibular joint disorder 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 Thyroid disease UTI (urinary tract infection) HX, JULY 2021 -HOSPITALIZED FOR , NOW RESOLVED DURING TESTING FOUND 2 LUMPS IN INTESTINES...REASON FOR UPCOMING COLONOSCOPY Surgical History H/O thumb surgery RT/LEFT JOINT REPAIR H/O total hysterectomy History of appendectomy History of arthroscopy of knee Left Knee - meniscus/cartilage History of colonoscopy History of cystoscopy History of esophagogastroduodenoscopy (EGD) History of tonsillectomy and adenoidectomy History of tooth extraction Hx of cholecystectomy Family History Brother Coronary heart disease Heart disease Mother Family history of diabetes mellitus Hypertension Heart disease Sister Family history of diabetes mellitus Son Family history of diabetes mellitus Father Family hx of colon cancer Hearing loss Hypertension Cancer Heart disease Grandfather (Maternal) Family hx of colon cancer Other No family history of adverse response to anesthesia No family history of bleeding disorder Social History Smoking Status: Never smoker Second Hand Exposure: No; Hx Alcohol Use: No Hx Substance Use: No Preferred Language: Burmese Communication Ability: Effective Welfare Eligibility Interviewer Required: No Beliefs That Will Affect Care: None marital status: Current Living Situation: Spouse Current Living Situation Comment: and sister current occupational status: employed and retired How many Children do You have: 0 Feels Safe at Home: Yes Assistive Devices: Glasses Allergies Allergies Allergy/AdvReac Type Severity Reaction Status Date / Time bee venom protein (honey bee) Allergy Severe Anaphylaxis Verified 10/21/21 23:09 Influenza Virus Vaccines Allergy Severe Anaphylaxis Verified 10/21/21 23:09 tetracycline AdvReac Severe Severe Verified 10/21/21 23:09 stomach pains Home Meds Home Medications Medication Instructions Recorded Confirmed paroxetine HCl 20 mg tablet 40 mg PO QAM 04/17/19 10/21/21 rosuvastatin 20 mg tablet (Crestor) 20 mg PO HS 12/28/19 10/21/21 valacyclovir 1 gram tablet 1 mg PO UD PRN Cold Sores 04/16/21 10/21/21 lorazepam 1 mg tablet 1 mg PO TID PRN Anxiety 05/29/21 10/21/21 propranolol 20 mg tablet 80 mg PO QAM 05/29/21 10/21/21 sjfkyvab-bqp-dspgk ac 400 1 tab PO QAM 07/15/21 10/21/21 mcg-calcium carb 500 mg-vit K1 20 mcg tablet (Women's 50 Plus Multivitamin) chlorthalidone 25 mg tablet 25 mg PO QAM 09/09/21 10/21/21 dulaglutide 3 mg/0.5 mL 3 mg subcut WK 09/09/21 10/21/21 subcutaneous pen injector levothyroxine 100 mcg tablet 100 mcg PO Q2D 09/09/21 10/21/21 levothyroxine 112 mcg tablet 112 mcg PO Q2D 09/09/21 10/21/21 magnesium 250 mg tablet 250 mg PO QAM 09/09/21 10/21/21 phenazopyridine 200 mg tablet 200 mg PO UD PRN bladder pain 09/09/21 10/21/21 (Pyridium) cholestyramine-aspartame 4 gram 4 g PO BID PRN .bloating 10/21/21 10/21/21 oral powder for susp in a packet (Cholestyramine Light) mometasone 0.1 % topical cream 1 applic topical BID 10/21/21 10/21/21 tramadol 50 mg tablet 50 mg PO DAILY PRN Pain 10/21/21 10/21/21 Previous Rx's Medication Instructions Recorded potassium chloride 20 mEq 20 meq PO BID #60 tabs 09/23/20 tablet,extended release(part/cryst) (Klor-Con M) zolpidem 5 mg tablet 5 mg PO HS PRN insomnia #0 tabs 07/20/21 Results & Data (ED) Vital Signs Vital Signs - 24 hr 10/21/21 17:54 10/21/21 21:40 10/21/21 22:07 Temperature 36.8 C Temperature Source Temporal Artery Scan Pulse Rate 93 H 88 Pulse Rate [Right Finger] 115 H Pulse Rate from SpO2 Sensor 88 Pulse Rhythm [Right Finger] Regular Pulse Strength [Right Finger] Normal Respiratory Rate 18 22 12 Respiratory Effort / Characteristics Non-Labored Respiratory Depth Normal Respiratory Pattern Regular Blood Pressure 143/74 H Blood Pressure [Left Arm] 145/81 H Blood Pressure Mean 97 Blood Pressure Mean [Left Arm] 102 Blood Pressure Position [Left Arm] Lying Pulse Oximetry 99 99 97 Oxygen Delivery Method Room Air Room Air Sepsis Recent Fever Within 48 Hours No Sepsis New/Unexplained Change in Mental Status No Sepsis Action Taken by Nursing No Action Required 10/21/21 23:06 Temperature Temperature Source Pulse Rate 86 Pulse Rate [Right Finger] Pulse Rate from SpO2 Sensor 86 Pulse Rhythm [Right Finger] Pulse Strength [Right Finger] Respiratory Rate 14 Respiratory Effort / Characteristics Respiratory Depth Respiratory Pattern Blood Pressure 151/71 H Blood Pressure [Left Arm] Blood Pressure Mean 97 Blood Pressure Mean [Left Arm] Blood Pressure Position [Left Arm] Pulse Oximetry 98 Oxygen Delivery Method Sepsis Recent Fever Within 48 Hours Sepsis New/Unexplained Change in Mental Status Sepsis Action Taken by Residential Medications Current Medication List: was personally reviewed by me Laboratory Data Attestation: I reviewed the patient's lab results. Result diagrams: 10/21/21 19:37 10/21/21 19:37 Lab Results 10/21/21 10/21/21 10/21/21 Range/Units 19:37 19:37 19:37 WBC 4.23 L (4.8-10.8) K/ul RBC 4.04 (3.93-5.22) M/uL Hgb 12.7 (12.0-16.0) g/dl Hct 36.2 (34.1-44.9) % MCV 89.6 (80.0-100.0) fL MCH 31.4 (25.0-34.0) pg MCHC 35.1 (32.0-36.0) g/dL RDW Std Deviation 49.7 H (36.4-46.3) fL RDW Coeff of Charlee 15.1 H (11.5-14.5) % Plt Count 116 L (130-400) K/uL MPV 8.8 L (9.4-12.3) fL Immature Gran % (Auto) 0.2 % Neut % (Auto) 48.5 % Lymph % (Auto) 34.0 % [place] % (Auto) 12.3 % Eos % (Auto) 4.5 % Baso % (Auto) 0.5 % Neut # (Auto) 2.05 (1.4-6.5) K/uL Lymph # (Auto) 1.44 (1.2-3.4) K/uL [place] # (Auto) 0.52 (0.24-0.82) K/uL Eos # (Auto) 0.19 (0-0.50) K/uL Baso # (Auto) 0.02 (0-0.2) K/uL Immature Gran # (Auto) 0.01 (0.00-0.02) K/uL Sodium 138 (136-145) mmol/L Potassium 3.1 L (3.5-5.1) mmol/L Chloride 104 (98-107) mmol/L Carbon Dioxide 23 (21-32) mmol/L Anion Gap 11 (3-11) BUN 10 (6-23) mg/dl Creatinine 0.98 (0.6-1.2) mg/dl Est Cr Clr Drug Dosing Not Reportable Est GFR ( Amer) 68.7 ml/min Est GFR (Non-Af Amer) 59.3 ml/min BUN/Creatinine Ratio 10.2 (10-20) Glucose 164 H (70-99(Fasting)) mg/dl Calcium 10.6 H (8.5-10.1) mg/dl Magnesium (1.7-2.4) mg/dl Total Bilirubin 5.1 H (0.2-1.0) mg/dl AST 82 H (13-39) U/L ALT 46 (7-52) U/L Alkaline Phosphatase 135 H (34-104) U/L Ammonia Troponin I High Sens (0-14) pg/ml Total Protein 6.3 (6.0-8.3) gm/dl Albumin 3.9 (3.4-5.0) gm/dl Globulin 2.4 L (2.5-4.0) gm/dl Albumin/Globulin Ratio 1.6 (0.9-2) TSH 1.498 (0.300-4.500) uIu/ml Urine Color Urine Appearance (Clear) Urine pH (4.5-7.5) Ur Specific [place] (1.000-1.030) Urine Protein (Negative) Urine Glucose (UA) (Negative) Urine Ketones (Negative) Urine Blood (Negative) Urine Nitrite (Negative) Urine Bilirubin (Negative) Urine Urobilinogen (Negative) Ur Leukocyte Esterase (Negative) Urine WBC (Auto) (0-5) /hpf Urine RBC (Auto) (0-4) /hpf U Hyaline Cast (Auto) (0-5) /lpf U Epithel Cells (Auto) (0-5) /lpf Urine Bacteria (Auto) (Negative) 10/21/21 10/21/21 10/21/21 Range/Units 20:00 21:58 21:58 WBC (4.8-10.8) K/ul RBC (3.93-5.22) M/uL Hgb (12.0-16.0) g/dl Hct (34.1-44.9) % MCV (80.0-100.0) fL MCH (25.0-34.0) pg MCHC (32.0-36.0) g/dL RDW Std Deviation (36.4-46.3) fL RDW Coeff of Charlee (11.5-14.5) % Plt Count (130-400) K/uL MPV (9.4-12.3) fL Immature Gran % (Auto) % Neut % (Auto) % Lymph % (Auto) % [place] % (Auto) % Eos % (Auto) % Baso % (Auto) % Neut # (Auto) (1.4-6.5) K/uL Lymph # (Auto) (1.2-3.4) K/uL [place] # (Auto) (0.24-0.82) K/uL Eos # (Auto) (0-0.50) K/uL Baso # (Auto) (0-0.2) K/uL Immature Gran # (Auto) (0.00-0.02) K/uL Sodium (136-145) mmol/L Potassium (3.5-5.1) mmol/L Chloride (98-107) mmol/L Carbon Dioxide (21-32) mmol/L Anion Gap (3-11) BUN (6-23) mg/dl Creatinine (0.6-1.2) mg/dl Est Cr Clr Drug Dosing Est GFR ( Amer) ml/min Est GFR (Non-Af Amer) ml/min BUN/Creatinine Ratio (10-20) Glucose (70-99(Fasting)) mg/dl Calcium (8.5-10.1) mg/dl Magnesium (1.7-2.4) mg/dl Total Bilirubin (0.2-1.0) mg/dl AST (13-39) U/L ALT (7-52) U/L Alkaline Phosphatase (34-104) U/L Ammonia TNP Troponin I High Sens 8.2 (0-14) pg/ml Total Protein (6.0-8.3) gm/dl Albumin (3.4-5.0) gm/dl Globulin (2.5-4.0) gm/dl Albumin/Globulin Ratio (0.9-2) TSH (0.300-4.500) uIu/ml Urine Color Dark Yellow Urine Appearance Clear (Clear) Urine pH 7.0 (4.5-7.5) Ur Specific [place] 1.018 (1.000-1.030) Urine Protein Negative (Negative) Urine Glucose (UA) Negative (Negative) Urine Ketones Negative (Negative) Urine Blood Negative (Negative) Urine Nitrite Negative (Negative) Urine Bilirubin Negative (Negative) Urine Urobilinogen Negative (Negative) Ur Leukocyte Esterase 1+ H (Negative) Urine WBC (Auto) 1-5 (0-5) /hpf Urine RBC (Auto) 0-4 (0-4) /hpf U Hyaline Cast (Auto) 1-5 (0-5) /lpf U Epithel Cells (Auto) >30 H (0-5) /lpf Urine Bacteria (Auto) Negative (Negative) 10/21/21 10/21/21 Range/Units 22:52 22:52 WBC (4.8-10.8) K/ul RBC (3.93-5.22) M/uL Hgb (12.0-16.0) g/dl Hct (34.1-44.9) % MCV (80.0-100.0) fL MCH (25.0-34.0) pg MCHC (32.0-36.0) g/dL RDW Std Deviation (36.4-46.3) fL RDW Coeff of Charlee (11.5-14.5) % Plt Count (130-400) K/uL MPV (9.4-12.3) fL Immature Gran % (Auto) % Neut % (Auto) % Lymph % (Auto) % [place] % (Auto) % Eos % (Auto) % Baso % (Auto) % Neut # (Auto) (1.4-6.5) K/uL Lymph # (Auto) (1.2-3.4) K/uL [place] # (Auto) (0.24-0.82) K/uL Eos # (Auto) (0-0.50) K/uL Baso # (Auto) (0-0.2) K/uL Immature Gran # (Auto) (0.00-0.02) K/uL Sodium (136-145) mmol/L Potassium (3.5-5.1) mmol/L Chloride (98-107) mmol/L Carbon Dioxide (21-32) mmol/L Anion Gap (3-11) BUN (6-23) mg/dl Creatinine (0.6-1.2) mg/dl Est Cr Clr Drug Dosing Est GFR ( Amer) ml/min Est GFR (Non-Af Amer) ml/min BUN/Creatinine Ratio (10-20) Glucose (70-99(Fasting)) mg/dl Calcium (8.5-10.1) mg/dl Magnesium 1.5 L (1.7-2.4) mg/dl Total Bilirubin (0.2-1.0) mg/dl AST (13-39) U/L ALT (7-52) U/L Alkaline Phosphatase (34-104) U/L Ammonia 80.0 H Troponin I High Sens (0-14) pg/ml Total Protein (6.0-8.3) gm/dl Albumin (3.4-5.0) gm/dl Globulin (2.5-4.0) gm/dl Albumin/Globulin Ratio (0.9-2) TSH (0.300-4.500) uIu/ml Urine Color Urine Appearance (Clear) Urine pH (4.5-7.5) Ur Specific [place] (1.000-1.030) Urine Protein (Negative) Urine Glucose (UA) (Negative) Urine Ketones (Negative) Urine Blood (Negative) Urine Nitrite (Negative) Urine Bilirubin (Negative) Urine Urobilinogen (Negative) Ur Leukocyte Esterase (Negative) Urine WBC (Auto) (0-5) /hpf Urine RBC (Auto) (0-4) /hpf U Hyaline Cast (Auto) (0-5) /lpf U Epithel Cells (Auto) (0-5) /lpf Urine Bacteria (Auto) (Negative) Administered Medications Magnesium Sulfate/Dextrose (Magnesium Sulfate / D5w) 1 gm in 100 mls @ 100 mls/hr IV NOW STA Stop: 10/22/21 00:45 Last Admin: 10/21/21 23:53 Dose: 100 mls/hr Documented By: JUSTICE Potassium Chloride (K Terry / Wtr) 10 meq in 100 mls @ 100 mls/hr IV ONE ONE; Protocol Stop: 10/22/21 00:44 Last Admin: 10/21/21 23:53 Dose: 100 mls/hr Documented By: UJSTICE Discontinued Medications Sodium Chloride (Nss 1000ml) 500 mls @ 999 mls/hr IV .Q31M ONE Stop: 10/21/21 21:58 Last Infusion: 10/21/21 23:05 Dose: 0 mls/hr Documented By: Admin: 10/21/21 22:31 Dose: 999 mls/hr Documented By: GATO Lactulose (Lactulose Syrup 30 Gm/45 Ml Udp) 30 gm PO NOW STA Stop: 10/21/21 23:46 Last Admin: 10/22/21 00:01 Dose: 30 gm Documented By: JUSTICE Morphine Sulfate (Morphine Sulfate 4 Mg/Ml 1 Ml Carp\Vial) 4 mg IV NOW STA Stop: 10/21/21 23:46 Last Admin: 10/21/21 23:53 Dose: 4 mg Documented By: JUSTICE Ondansetron HCl (Ondansetron Inj 2 Mg/Ml 2 Ml Vial) 4 mg IV NOW STA Stop: 10/21/21 21:29 Last Admin: 10/21/21 22:32 Dose: 4 mg Documented By: GATO Imaging Data Attestation: I personally reviewed and interpreted this imaging study as follows: My Impression: 1 view chest x-ray was obtained in the emergency department. My interpretation is heart size is top normal. No acute disease. Radiologist's Impression: Patient: SHOLA WYNN (Female) : 51 Status: ER Date: 10/21/21 23:10 Room #: History: confusion Slices: 75 Priors: Tech: Simeon Colon @ [phone] Exams: CT HEAD Contrast:K Accession Numbers: [id number] Referring Physician: REFERRED SELF Preliminary Findings Only See Final Report For Complete Findings CT HEAD: No acute intracranial hemorrhage. No midline shift or mass effect. The territorial sanchez-white matter differentiation is maintained throughout. Age-related cerebral volume loss. Periventricular and subcortical white matter hypoattenuation, consistent with chronic microangiopathy. Radiologist: Adal Singer MD Study ready at 23:48 and initial results transmitted at 23:52 Discharge Plan Visit Data Chief Complaint: Illness Stated Complaint: UTI, CONFUSED, NAUSEA ED Provider: Reza Darling Discharge Problem: Acute hepatic encephalopathy, Hypokalemia, Hypomagnesemia, Hyperbilirubinemia, Headache Patient Disposition: Being Evaluated by Hospitalist Forms Stand Alone Forms: My [facility] [employer] Prescriptions Prescriptions: No Action lorazepam 1 mg tablet 1 mg PO TID PRN (Reason: Anxiety) rosuvastatin [Crestor] 20 mg tablet 20 mg PO HS paroxetine HCl 20 mg tablet 40 mg PO QAM potassium chloride [Klor-Con M20] 20 mEq Tablet,Er Particles/Crystals 20 meq PO BID Qty: 60 0RF valacyclovir 1 gram tablet 1 mg PO UD PRN (Reason: Cold Sores) Label Comments: NOT CURRENTLY USING propranolol 20 mg tablet 80 mg PO QAM Rx Instructions: 09/23/21 dr hercules says 20mg bid phenazopyridine [Pyridium] 200 mg tablet 200 mg PO UD PRN (Reason: bladder pain) chlorthalidone 25 mg tablet 25 mg PO QAM levothyroxine 100 mcg tablet 100 mcg PO Q2D Rx Instructions: 100 mcg PO every other day; alternate with 112 mcg; (VERIFIED PAT CALL 09/09/21) magnesium 250 mg tablet 250 mg PO QAM Rx Instructions: OTC levothyroxine 112 mcg tablet 112 mcg PO Q2D Rx Instructions: 112 mcg PO every other day, alternate with 100 mcg. Take 1st thing in the morning on an empty stomach 30 min prior to any other oral intake. (VERIFIED PAT CALL 09/09/21) dulaglutide 3 mg/0.5 mL pen injector 3 mg subcut WK Label Comments: SUNDAYS Rx Instructions: Inject 3 mg subcut once weekly Wednesday tramadol 50 mg tablet 50 mg PO DAILY PRN (Reason: Pain) mometasone 0.1 % cream 1 applic TOPICAL BID Rx Instructions: apply to rash on legs cholestyramine-aspartame [Cholestyramine Light] 4 gram powder in packet 4 g PO BID PRN (Reason: .bloating) Label Comments: CURRENTLY ON HOLD ; LAST DOSE PROBABLY 5 WEEKS AGO Women's 50 Plus Multivitamin 400 mcg-500 mg calcium-20 mcg Tablet 1 tab PO QAM zolpidem 5 mg tablet 5 mg PO HS PRN (Reason: insomnia) Qty: 0 0RF Referrals Referrals: Reza Cid MD [Primary Care Provider] -
[2021-10-21] MEDS ORDERED: LACTULOSE SYRUP 30 GM/45 ML UDP PO STA (23:45)
[2021-10-21] MEDS ORDERED: POTASSIUM CHLORIDE / WTR 10 MEQ/100 ML PLCT IV ONE (23:45)
[2021-10-21] MEDS ORDERED: MoRPHine SULFATE 4 MG/ML 1 ML CARP\\VIAL IV STA (23:45)
[2021-10-21] MEDS ORDERED: MAGNESIUM SULFATE / D5W 1 GM/100 ML BAG IV STA (23:46)
[2021-10-22] MEDS ORDERED: PIPERACILLIN/TAZOBACTAM 3.375 GM in DEXTROSE 5% 100 ML/100 ML BAG IV STA (00:58)
--- NOTE | 2021-10-22 01:09 | History & Physical Report ---
Date of Service October 22, 2021 Assessment & Plan (1) Hyperbilirubinemia: Plan: Tbili is 5.1 on admission. Baseline runs around 2.2 - 2.6. Unclear etiology for rise. Concerning for biliary process given infectious symptoms at home. - Liver/biliary u/s ordered - Blood cultures ordered - Empiric Zosyn until more information - Checked with bedside u/s and no ascites found, so SBP essentially ruled out. (2) Acute hepatic encephalopathy: Plan: NH3+ was 80 on admission. Had prior episode back in 09/2020, but not routinely on lactulose due to prior diarrhea from C. diff. - Lactulose given in ER - Continue low-dose lactulose (3) 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: Plan: Has not seen [facility]. (4) Headache: Plan: Started this AM. Sounds like a tension-type headache with circumferential pain and down jaw as well. No CN deficients on admission. - Pain meds PRN (5) Hypothyroidism: Plan: TSH was 1.5 this admission. - Continue home levothyroxine (6) DVT prophylaxis: Plan: SCDs DNR/DNI - Patient reports she knows her liver is bad and that if she were to have her heart stop or stop breathing, it would further injure liver, and it is possible she would end up needing a liver transplant. Discussed that it is hard to tell for sure, but certainly if her heart stops or she stops breathing, it would indicate a high level of illness. She declines heroic measures and would prefer us to let her pass peacefully in that circumstance and reports that her and sister both know and understand these wishes. While there is some concern for encephalopathy, she is clearly cognizant with me and very clearly understands the consequences of being DNR/DNI. History of Present Illness Primary Care Provider: Reza Cid MD 66yo F w/ hx of REBOLLAR cirrhosis who presents with shaking, headache, and confusion. Patient reports loss of appetite and fatigue for about 1 week. Has had some off/on tremors as well. Last few days urine has been darker as well. Last night, she had some chills and her felt she was feverish. This morning, she reports she developed a headache that is generally around the entire head. Allergies Allergy/AdvReac Type Severity Reaction Status Date / Time bee venom protein (honey bee) Allergy Severe Anaphylaxis Verified 10/21/21 23:09 Influenza Virus Vaccines Allergy Severe Anaphylaxis Verified 10/21/21 23:09 tetracycline AdvReac Severe Severe Verified 10/21/21 23:09 stomach pains Home Medications Medication Instructions Recorded Confirmed Type paroxetine HCl 20 mg tablet 40 mg PO QAM 04/17/19 10/21/21 History rosuvastatin 20 mg tablet (Crestor) 20 mg PO HS 12/28/19 10/21/21 History potassium chloride 20 mEq 20 meq PO BID #60 tabs 09/23/20 10/21/21 Rx tablet,extended release(part/cryst) (Klor-Con M) valacyclovir 1 gram tablet 1 mg PO UD PRN Cold Sores 04/16/21 10/21/21 History lorazepam 1 mg tablet 1 mg PO TID PRN Anxiety 05/29/21 10/21/21 History propranolol 20 mg tablet 80 mg PO QAM 05/29/21 10/21/21 History rxjghtks-itn-bmvdr ac 400 1 tab PO QAM 07/15/21 10/21/21 History mcg-calcium carb 500 mg-vit K1 20 mcg tablet (Women's 50 Plus Multivitamin) zolpidem 5 mg tablet 5 mg PO HS PRN insomnia #0 tabs 07/20/21 10/21/21 Rx chlorthalidone 25 mg tablet 25 mg PO QAM 09/09/21 10/21/21 History dulaglutide 3 mg/0.5 mL 3 mg subcut WK 09/09/21 10/21/21 History subcutaneous pen injector levothyroxine 100 mcg tablet 100 mcg PO Q2D 09/09/21 10/21/21 History levothyroxine 112 mcg tablet 112 mcg PO Q2D 09/09/21 10/21/21 History magnesium 250 mg tablet 250 mg PO QAM 09/09/21 10/21/21 History phenazopyridine 200 mg tablet 200 mg PO UD PRN bladder pain 09/09/21 10/21/21 History (Pyridium) cholestyramine-aspartame 4 gram 4 g PO BID PRN .bloating 10/21/21 10/21/21 History oral powder for susp in a packet (Cholestyramine Light) mometasone 0.1 % topical cream 1 applic topical BID 10/21/21 10/21/21 History tramadol 50 mg tablet 50 mg PO DAILY PRN Pain 10/21/21 10/21/21 History Past Med/Surg History Medical History Anemia HX Arthritis Moeller's esophagus with esophagitis Chronic diarrhea SOMETIMES Depression Diabetes mellitus, type 2 Diverticulitis of sigmoid colon Diverticulosis GERD (gastroesophageal reflux disease) GI bleed RECENT HOSPITALIZED - PT DENIES HX GI BLEED Heel spur B/L feet Hiatal hernia History of colon polyps BENIGN History of fractured vertebra CURRENT, HX FALL JULY 2021 - FELL OF THE TOILET - NO INTERVENTION AT PRESENT/ DR [facility] SE[facility] FOR TO DISCUSS TX OPTIONS - POTENTIAL BACK BRACE History of kidney stones Hyperlipidemia Hypertension NO CURRENT MEDS 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) Spleen enlarged MONITORS - PT REPORTS FROM THE REBOLLAR Stucco keratoses Temporomandibular joint disorder NO LOCKING/WEARS 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 Thyroid disease UTI (urinary tract infection) HX, JULY 2021 -HOSPITALIZED FOR , NOW RESOLVED DURING TESTING FOUND 2 LUMPS IN INTESTINES...REASON FOR UPCOMING COLONOSCOPY Surgical History H/O thumb surgery RT/LEFT JOINT REPAIR H/O total hysterectomy History of appendectomy History of arthroscopy of knee Left Knee - meniscus/cartilage History of colonoscopy History of cystoscopy History of esophagogastroduodenoscopy (EGD) History of tonsillectomy and adenoidectomy History of tooth extraction Hx of cholecystectomy Family History Brother Coronary heart disease Heart disease Mother Family history of diabetes mellitus Hypertension Heart disease Sister Family history of diabetes mellitus Son Family history of diabetes mellitus Father Family hx of colon cancer Hearing loss Hypertension Cancer Heart disease Grandfather (Maternal) Family hx of colon cancer Other No family history of adverse response to anesthesia No family history of bleeding disorder Social History Smoking Status: Former smoker Second Hand Exposure: No; Do You Dip or Chew Tobacco: No; Tobacco Cessation Education Requested by Patient: No Hx Alcohol Use: No Hx Substance Use: No Preferred Language: [place] Communication Ability: Effective Rip/Mould Operator Required: No Beliefs That Will Affect Care: None marital status: Current Living Situation: Spouse Current Living Situation Comment: and sister current occupational status: employed and retired How many Children do You have: 0 Other Information That Helps Us Care for You: No Feels Safe at Home: Yes Safety Concerns: Feels Safe At This Time Assistive Devices: Glasses Review of Systems Review of Systems: All systems reviewed & are unremarkable except as noted in HPI & below Physical Exam Constitutional: WD/WN, vitals as above Eyes: EOM intact bilaterally; no conjunctival abnormality ENMT: external ear and nose normal, oropharynx normal Neck: trachea midline, no thyromegaly normal visual inspection Respiratory: normal respiratory effort, lungs clear to auscultation no respiratory distress Cardiovascular: RRR, no murmur, no edema Gastrointestinal (Abdomen): Inspection/Auscultation: abdomen normal to inspection; abdomen not distended Percussion/Palpation: abdomen soft; abdomen nontender, no guarding, abdomen not rigid and no ascites Musculoskeletal: no cyanosis or clubbing, extremities motor strength 5/5 Skin: no rashes, warm and dry Neurologic: moves all extremities and awake Psychiatric: Orientation: alert, oriented to person and cooperative Results & Data Results & Data ([facility]) Vital Signs (Past 12 Hours) Vital Signs Temp Pulse Pulse Resp BP BP Pulse Ox 10/21/21 23:06 86 14 151/71 H 98 10/21/21 22:07 88 12 97 10/21/21 21:40 115 H 22 145/81 H 99 10/21/21 17:54 36.8 C 93 H 18 143/74 H 99 O2 Del Method 10/21/21 23:06 10/21/21 22:07 10/21/21 21:40 Room Air 10/21/21 17:54 Room Air PG Care Time/CCT Total # of Minutes Spent Total Time Spent with Patient: Total time spent is greater than 50% in coordination of care (as documented) at patient's floor/unit and/or counseling patient: Coding Level of Care Code 05257 Initial Inpt Care Lvl 3 Diagnoses Hyperbilirubinemia E80.6 Acute hepatic encephalopathy K72.00 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 Headache R51.9 Headache chronicity pattern: acute headache Headache type: unspecified Intractability: not intractable Hypothyroidism E03.9 Hypothyroidism type: unspecified DVT prophylaxis Z29.9 (1) Headache Headache chronicity pattern: acute headache Headache type: unspecified Intractability: not intractable Qualified Code(s): R51.9 - Headache, unspecified (2) Hypothyroidism Hypothyroidism type: unspecified Qualified Code(s): E03.9 - Hypothyroidism, unspecified
[2021-10-22] MEDS ORDERED: MoRPHine SULFATE 4 MG/ML 1 ML CARP\\VIAL IV STA (01:55)
[2021-10-22 02:07] LABS: INR 1.3 (0.9-1.1); Partial Thromboplastin Time 26.2 Seconds (21.0-31.0); Prothrombin Time 13.5 Seconds (9.0-12.0)
[2021-10-22] MEDS ORDERED: traMADol HCL 50 MG TABLET PO PRN (04:38)
[2021-10-22] MEDS ORDERED: GLUCOSE 40% GEL 15 GM TUBE PO PRN (04:38)
[2021-10-22] MEDS ORDERED: LORazepam 0.5 MG TAB PO PRN (04:38)
[2021-10-22] MEDS ORDERED: DEXTROSE 50% 50 ML SYRINGE IV PRN (04:38)
[2021-10-22] MEDS ORDERED: GLUCOSE 10 TAB/TUBE PO PRN (04:38)
[2021-10-22] MEDS ORDERED: CHOLESTYRAMINE LIGHT 4 GM PKT PO PRN (04:38)
[2021-10-22] MEDS ORDERED: GLUCAGON FOR INJ 1 MG VIAL SQ PRN (04:38)
[2021-10-22] MEDS ORDERED: CARBOHYDRATES FOR HYPOGLYCEMIA PO PRN (04:38)
[2021-10-22] MEDS: LEVOTHYROXINE SODIUM 112 MCG TABLET PO SCH (05:44)
[2021-10-22] MEDS: PIPERACILLIN/TAZOBACTAM 3.375 GM in DEXTROSE 5% 100 ML IV SCH ×3 (05:44→22:10)
--- NOTE | 2021-10-22 06:49 | Ultrasound Report ---
US gallbladder CLINICAL HISTORY: Liver/biliary system - Elevated Tbili, AST, alkaline phosphatase. COMPARISON STUDY: Right upper quadrant ultrasound September 24, 2020. CT of the abdomen and pelvis July 15, 2021. FINDINGS: Coarsening of hepatic echotexture is consistent with cirrhosis. No hepatic lesions are iden tified by sonography. The main portal vein is patent with appropriately directed flow. There is possi ble nonocclusive thrombus within the left portal vein or a collateral vein. Recanalized paraumbilical vein is noted. Dilatation of the common bile duct, measuring 1.2 cm, similar to CT of July 15, 2021. T his is likely related to cholecystectomy. The pancreatic body is normal. Head and tail are obscured. There is no right hydronephrosis. IMPRESSION: 1. Cirrhosis. No hepatic lesions identified by sonography. 2. Dilatation of the common bile duct, similar to CT of July 15, 2021. This is likely related to cholec ystectomy. 3. Possible nonocclusive thrombus within the left portal vein or a collateral vein. A CT of the abdom en with IV contrast could be obtained for further evaluation. 4. Recanalized paraumbilical vein indicative of portal hypertension. 5. Obscured pancreas. ACT 112: Negative or not required by law. Electronically signed by: Keven Bettencourt M.D. 10/22/2021 6:47 AM
--- NOTE | 2021-10-22 07:40 | XRay Report ---
XR chest 1V portable CLINICAL HISTORY: AMS TECHNIQUE: Single frontal radiograph of the chest was obtained. Comparison: Comparison is made to chest radiograph 122 FINDINGS: No lines and tubes are seen. The cardiomediastinal silhouette is normal. The lungs are clear. No evid ence of pleural effusion or pneumothorax. IMPRESSION: No acute chest disease. ACT 112: Negative or not required by law. Electronically signed by: Kiel Cross M.D. 10/22/2021 7:39 AM
[2021-10-22] MEDS ORDERED: OPTIRAY 300 100mL IV ONE (08:35)
[2021-10-22] MEDS ORDERED: LACTULOSE SYRUP 20 GM/30 ML UDC PO SCH (09:00)
[2021-10-22] MEDS ORDERED: POTASSIUM CHLORIDE CRTAB 20 MEQ TABCR PO SCH (09:00)
[2021-10-22] MEDS: INSULIN ASPART PER UNIT SC SCH ×5 (09:15→20:20)
--- NOTE | 2021-10-22 09:15 | CT Scan Report ---
CT OF THE HEAD WITHOUT CONTRAST CLINICAL HISTORY: Altered mental status. COMPARISON STUDY: MRI of the brain September 24, 2020. Head CT September 10, 2020. CT DOSE: 691.05 mGy.cm TECHNIQUE: Helical axial images of the head were obtained without IV contrast. Automated exposure con trol was utilized for the study. A dose lowering technique was utilized adhering to the principles o f ALARA. FINDINGS: No acute intracranial hemorrhage, midline shift or mass effect is present. White matter hypodensities are similar to prior exams and favor small vessel disease. The ventricular system is unremarkable. The basal cisterns are patent. No extra-axial collections are present. There are no findings to suggest acute dural sinus thrombosis or acute territorial infarct. No significant calvarial abnormalities are present. Trace fluid within the bilateral mastoid air cells, unchanged. IMPRESSION: No acute intracranial findings. ACT 112: Negative or not required by law. Electronically signed by: Keven Bettencourt M.D. 10/22/2021 9:13 AM
[2021-10-22] MEDS: PROPRANOLOL HCL 20 MG TAB PO SCH ×2 (09:21→20:19)
[2021-10-22] MEDS: MAGNESIUM OXIDE 400 MG TAB PO SCH (09:21)
[2021-10-22] MEDS: PARoxetine HCL 20 MG TAB PO SCH (09:21)
[2021-10-22 09:35] LABS: Albumin Globulin Ratio 1.6 (0.9-2); Albumin Level 3.4 gm/dl (3.4-5.0); BUN Creatinine Ratio 7.1 (10-20); Calcium 9.7 mg/dl (8.5-10.1); Creatinine Clr Calc Pharmacy 44.8 ml/min; Est GFR (African American) 57.8 ml/min; Est GFR (Non-African American) 49.9 ml/min; Globulin 2.1 gm/dl (2.5-4.0); Magnesium 1.5 mg/dl (1.7-2.4); Potassium 3.2 mmol/L (3.5-5.1); Total Protein 5.5 gm/dl (6.0-8.3)
[2021-10-22 09:40] LABS: Basophils # (auto) 0.01 K/uL (0-0.2); Basophils % (auto) 0.2 %; Eosinophils # (auto) 0.26 K/uL (0-0.50); Eosinophils % (auto) 6.4 %; Hematocrit (blood only) 33.3 % (34.1-44.9); Hemoglobin 11.5 g/dl (12.0-16.0); Lymphocytes # (auto) 1.55 K/uL (1.2-3.4); Mean Corpuscular Hemoglobin 31.2 pg (25.0-34.0); Mean Corpuscular Hgb Conc 34.5 g/dL (32.0-36.0); Mean Corpuscular Volume 90.2 fL (80.0-100.0); Mean Platelet Volume 8.9 fL (9.4-12.3); Monocytes # (auto) 0.65 K/uL (0.24-0.82); Monocytes % (auto) 15.9 %; Neutrophils # (auto) 1.61 K/uL (1.4-6.5); Neutrophils % (auto) 39.5 %; Platelet Count 109 K/uL (130-400); RDW Coefficient of Variation 14.9 % (11.5-14.5); RDW Standard Deviation 49.2 fL (36.4-46.3); Red Blood Count 3.69 M/uL (3.93-5.22); White Blood Count 4.08 K/ul (4.8-10.8)
--- NOTE | 2021-10-22 10:27 | Hospitalist Progress Note ---
Date of Service October 22, 2021 Assessment & Plan (1) Hyperbilirubinemia: Plan: Tbili is 5.1 on admission. Baseline runs around 2.2 - 2.6. Unclear etiology for rise. - Liver/biliary u/s ordered--as above, CBD dilatation similar to 07/2021, possible nonocclusive thrombus in L portal vein-CTA a/p pending * No evidence of portal vein thrombosis - Blood cultures ordered, pending - Empiric Zosyn on board but have a low index of suspicion for infection - Checked with bedside u/s and no ascites found, so SBP essentially ruled ouy - TB stable this AM w/o significant change at 5 (2) Acute hepatic encephalopathy: Plan: NH3+ was 80 on admission. Had prior episode back in 09/2020, but not routinely on lactulose due to prior diarrhea from C. diff. - Lactulose given in ER - Continued low-dose Lactulose upon admission but still w/o defecation and ammonia level increasing to 86 - Change Lactulose to 20g q1h until rapid defecation and then adjust to q8h - Repeat ammonia level tomorrow AM (3) 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: Plan: - Supposedly follows o/p with GI and [facility] - Continue Propranolol (4) Headache: Plan: Started this AM. Sounds like a tension-type headache with circumferential pain and down jaw as well. No CN deficients on admission. - Tramadol ordered, use as needed, instructed RN to give dose now (5) Hypomagnesemia: Plan: - Mag 1.5 - replacement ordered - K+ 3.2 - replacement ordered - Repeat labs in AM (6) Hypothyroidism: Plan: TSH was 1.5 this admission. - Continue home levothyroxine (7) DVT prophylaxis: Plan: SCDs DNR/DNI - Patient reports she knows her liver is bad and that if she were to have her heart stop or stop breathing, it would further injure liver, and it is possible she would end up needing a liver transplant. Discussed that it is hard to tell for sure, but certainly if her heart stops or she stops breathing, it would indicate a high level of illness. She declines heroic measures and would prefer us to let her pass peacefully in that circumstance and reports that her and sister both know and understand these wishes. While there is some concern for encephalopathy, she is clearly cognizant with me and very clearly understands the consequences of being DNR/DNI. Plan Interventions as outlined above. Follow up labs in AM. PT/OT. Admission and Anticipated Discharge Date Admission Date: October 22, 2021 Subjective Patient seen on daily rounds this morning. She was admitted overnight with nonspecific symptoms which she describes as feeling "unwell." She reports feeling tremulous with decreased appetite, vague abdominal discomfort, and headache. She denies diarrhea, fever, n/v, chest pain or dyspnea. Review of Systems Review of Systems: All systems reviewed and are unremarkable except as noted in HPI and below. Denies fever, chills, fatigue, nasal congestion, sore throat, cough, chest pain, shortness of breath, palpitations, orthopnea, PND, n, n/v/d, constipation, dysuria, hematuria, frequency, back pain, joint pain or swelling, easy bruising or bleeding, skin lesions or rashes. Physical Exam Physical Exam: GENERAL: 66 yo Well-developed, well-nourished WF. NAD. LUNGS: Clear to auscultation bilaterally w/o w/r/r. CARDIOVASCULAR: Regular rate and rhythm. ABDOMEN: Soft, non-tender and non-distended. BS normoactive x 4 quad. EXTREMITIES: No edema. Non-tender. Peripheral pulses +2/4. NEUROLOGIC: A&O x3. No focal neurological deficits. PSYCHIATRIC: Cooperative. Appropriate mood and affect. SKIN: Warm, dry, intact. No rashes or lesions. Results & Data Results & Data ([facility]) Vital Signs (Past 12 Hours) Vital Signs Temp Pulse Pulse Resp BP BP Pulse Ox 10/22/21 07:44 36.7 C 84 16 135/61 93 10/22/21 04:00 91 H 10/22/21 03:50 36.8 C 91 H 18 151/72 H 94 10/22/21 03:49 36.8 C 91 H 18 151/72 H 94 10/22/21 03:00 90 16 141/63 H 91 10/22/21 02:30 89 14 139/63 92 10/22/21 02:00 86 12 107/70 93 10/22/21 01:30 88 16 158/81 H 93 10/22/21 01:00 88 12 144/68 H 97 10/22/21 01:00 144/68 H 10/22/21 00:30 92 H 14 142/65 H 97 10/22/21 00:00 89 14 143/65 H 97 10/21/21 23:06 86 14 151/71 H 98 Laboratory Results 10/22/21 08:56 10/22/21 08:56 Diagnostic Findings Gallbladder Ultrasound 10/22/21 00:58 US gallbladder CLINICAL HISTORY: Liver/biliary system - Elevated Tbili, AST, alkaline phosphatase. COMPARISON STUDY: Right upper quadrant ultrasound September 24, 2020. CT of the abdomen and pelvis July 15, 2021. FINDINGS: Coarsening of hepatic echotexture is consistent with cirrhosis. No hepatic lesions are identified by sonography. The main portal vein is patent with appropriately directed flow. There is possible nonocclusive thrombus within the left portal vein or a collateral vein. Recanalized paraumbilical vein is noted. Dilatation of the common bile duct, measuring 1.2 cm, similar to CT of July 15, 2021. This is likely related to cholecystectomy. The pancreatic body is normal. Head and tail are obscured. There is no right hydronephrosis. IMPRESSION: 1. Cirrhosis. No hepatic lesions identified by sonography. 2. Dilatation of the common bile duct, similar to CT of July 15, 2021. This is likely related to cholecystectomy. 3. Possible nonocclusive thrombus within the left portal vein or a collateral vein. A CT of the abdomen with IV contrast could be obtained for further evaluation. 4. Recanalized paraumbilical vein indicative of portal hypertension. 5. Obscured pancreas. ACT 112: Negative or not required by law. Electronically signed by: Keven Bettencourt M.D. 10/22/2021 6:47 AM ECG Additional Comments: TELE: NSR PG Care Time/CCT Total # of Minutes Spent Total Time Spent with Patient: Total time spent is greater than 50% in coordination of care (as documented) at patient's floor/unit and/or counseling patient: Coding Level of Care Code None Diagnoses Hyperbilirubinemia E80.6 Acute hepatic encephalopathy K72.00 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
--- NOTE | 2021-10-22 10:28 | CT Scan Report ---
CT abdomen w IV con CLINICAL HISTORY: Exam portal vein for possible thrombus TECHNIQUE: Helical axial images of the abdomen were obtained. Automated dose lowering techniques and/ or adjustment according to patient size were utilized for this exam. This exam was performed with in travenous contrast. CT DOSE: 293.65 mGy.cm Comparison: None available at the time of this dictation. FINDINGS: Lower chest: No acute abnormality Liver: Unremarkable. No focal lesions are seen. Gallbladder and biliary tree: Patient is status post cholecystectomy. Physiologic prominence of the b iliary ducts is noted. Pancreas: There is mild prominence of the pancreatic duct which measures approximately 4 mm in the pa ncreatic body. This is likely secondary to common bile duct physiologic dilation. Spleen: Unremarkable. Adrenals: Unremarkable. Kidneys and ureters: Unremarkable. Bowel: Unremarkable apart from previously noted duodenal diverticulum.. Lymph nodes Retroperitoneal: Unremarkable. Mesenteric: Unremarkable. Peritoneum: Normal. Vessels: Calcifications are seen in the aorta. There is no evidence of portal venous thrombus. Abdominal wall: Unremarkable. Bones: Unremarkable. IMPRESSION: No acute abnormality and in particular no evidence of portal venous thrombus. Additional findings as above. ACT 112: Negative or not required by law. Electronically signed by: Kiel Cross M.D. 10/22/2021 10:26 AM
[2021-10-22] MEDS: LACTULOSE SYRUP 20 GM/30 ML UDC PO SCH ×11 (10:30→20:18)
[2021-10-22] MEDS: MAGNESIUM SULFATE / D5W 1 GM/100 ML BAG IV SCH ×2 (12:47→14:57)
[2021-10-22] MEDS ORDERED: POTASSIUM CHLORIDE CRTAB 20 MEQ TABCR PO ONE (14:00)
[2021-10-22] MEDS: oxyCODONE HCL IR 5 MG TAB (IMMEDIATE RELEASE) PO PRN (17:20)
[2021-10-22] MEDS: ROSUVASTATIN CALCIUM 20 MG TAB PO SCH (20:19)
[2021-10-23] MEDS: LACTULOSE SYRUP 20 GM/30 ML UDC PO SCH ×3 (02:30→19:58)
[2021-10-23] MEDS ORDERED: ONDANSETRON INJ 2 MG/ML 2 ML VIAL IV PRN (02:33)
[2021-10-23] MEDS: oxyCODONE HCL IR 5 MG TAB (IMMEDIATE RELEASE) PO PRN ×3 (04:41→17:39)
[2021-10-23] MEDS: PIPERACILLIN/TAZOBACTAM 3.375 GM in DEXTROSE 5% 100 ML IV SCH ×2 (04:41→14:34)
[2021-10-23] MEDS ORDERED: LEVOTHYROXINE SODIUM 100 MCG TABLET PO SCH (06:30)
[2021-10-23] MEDS: PARoxetine HCL 20 MG TAB PO SCH (08:24)
[2021-10-23] MEDS: PROPRANOLOL HCL 20 MG TAB PO SCH ×2 (08:25→19:59)
[2021-10-23] MEDS: INSULIN ASPART PER UNIT SC SCH ×4 (08:25→22:06)
[2021-10-23] MEDS: MAGNESIUM OXIDE 400 MG TAB PO SCH (08:25)
[2021-10-23 08:53] LABS: Basophils # (auto) 0.02 K/uL (0-0.2); Basophils % (auto) 0.4 %; Eosinophils # (auto) 0.48 K/uL (0-0.50); Eosinophils % (auto) 8.6 %; Hematocrit (blood only) 32.2 % (34.1-44.9); Hemoglobin 11.3 g/dl (12.0-16.0); Immature Granulocytes # (auto) 0.01 K/uL (0.00-0.02); Immature Granulocytes % (auto) 0.2 %; Lymphocytes # (auto) 0.94 K/uL (1.2-3.4); Lymphocytes % (auto) 16.8 %; Mean Corpuscular Hemoglobin 31.5 pg (25.0-34.0); Mean Corpuscular Hgb Conc 35.1 g/dL (32.0-36.0); Mean Corpuscular Volume 89.7 fL (80.0-100.0); Mean Platelet Volume 8.9 fL (9.4-12.3); Monocytes # (auto) 1.07 K/uL (0.24-0.82); Monocytes % (auto) 19.2 %; Neutrophils # (auto) 3.06 K/uL (1.4-6.5); Neutrophils % (auto) 54.8 %; Platelet Count 104 K/uL (130-400); RDW Coefficient of Variation 15.3 % (11.5-14.5); RDW Standard Deviation 50.5 fL (36.4-46.3); Red Blood Count 3.59 M/uL (3.93-5.22); White Blood Count 5.58 K/ul (4.8-10.8)
[2021-10-23 08:54] LABS: Albumin Globulin Ratio 1.7 (0.9-2); Albumin Level 3.3 gm/dl (3.4-5.0); BUN Creatinine Ratio 10.8 (10-20); Bilirubin,Total 5.5 mg/dl (0.2-1.0); Calcium 9.4 mg/dl (8.5-10.1); Est GFR (African American) 53.8 ml/min; Est GFR (Non-African American) 46.4 ml/min; Magnesium 1.6 mg/dl (1.7-2.4); Total Protein 5.3 gm/dl (6.0-8.3)
[2021-10-23] MEDS ORDERED: LACTULOSE SYRUP 20 GM/30 ML UDC PO SCH (09:00)
[2021-10-23] MEDS: POTASSIUM CHLORIDE CRTAB 20 MEQ TABCR PO SCH ×2 (10:46→17:38)
[2021-10-23] MEDS: MAGNESIUM SULFATE / D5W 1 GM/100 ML BAG IV SCH ×2 (10:47→12:40)
--- NOTE | 2021-10-23 10:50 | Gastrointestinal Consultation ---
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 This is in the setting of her not using her lactulose as an outpatient. She tells me she has not been using lactulose in some time but she is not entirely sure when. Likely her issues were coming from medical noncompliance. - discussed case with Dr. Garcia. - she is having cramping and diarrhea with the lactulose. Can titrate back on dose to bid. discussed with patient she should be having 2-3 bowel movements daily. can titrate back dose further if needed. - she can follow with her regular supervisor special services Dr García as an outpatient and she can proceed with hepatology evaluation as planned at [facility]. Supervising Physician Co-Signing Physician Notes I personally evaluated the patient and agree with the findings as documented by Efraín Plascencia, PAC Exam: Constitutional: WD/WN, vitals as above General: EOM intact bilaterally Neck: normal visual inspection Respiratory: normal respiratory effort, lungs clear to auscultation Cardiovascular: RRR, no murmur, no edema Gastrointestinal: abdomennormal to inspection, nondistended, soft, nontender, no hepatosplenomegaly Musculoskeletal: no cyanosis, head normal to inspection Skin: no rashes, warm and dry Neurologic: moves all extremities, no asterixis Psychiatric: A and O x3, euthymic affect continue lactulose and follow up with Dr. García/[facility] as outpt. History of Present Illness Reason for Consultation: abdominal pain, cirrhosis with hyperbilirubinemia Requesting Physician: Mel Nicholas PA-C Attending Physician: Terrance Stuart MD History of Present Illness Patient is a 66 year old female with history of REBOLLAR cirrhosis who presented to the ED with shaking, headache, and confusion and found to have an elevated ammonia. This is in the setting of her not using her lactulose as an outpatient. She tells me she has not been using lactulose in some time but she is not entirely sure when. When admitted she had been started on lactulose 20gm TID and with this her ammonia did improve. Since then she feels her confusion has improved. no further shakiness. she admit that the lactulose is giving her cramps but she denies any abdominal pain currently. Her labs did show T bili of 5.1, and she tells me she has had issues with lfts being high in the past. she does not know which lfts were elevated in the past. She tells me that she has been following with Dr. García on her Cirrhosis. She is planned to see hepatology in February of this year. She does admit to heartburn but takes omeprazole as an outpatient that helps. Typically moves bowels daily. no bleeding. no melena. has had diarrhea since start of lactulose. rest of gi ros negative. she has had US as well as CT during this admission. see results below. Allergies Allergy/AdvReac Type Severity Reaction Status Date / Time bee venom protein (honey bee) Allergy Severe Anaphylaxis Verified 10/21/21 23:09 Influenza Virus Vaccines Allergy Severe Anaphylaxis Verified 10/21/21 23:09 tetracycline AdvReac Severe Severe Verified 10/21/21 23:09 stomach pains Home Medications Medication Instructions Recorded Confirmed Type paroxetine HCl 20 mg tablet 40 mg PO QAM 04/17/19 10/21/21 History rosuvastatin 20 mg tablet (Crestor) 20 mg PO HS 12/28/19 10/21/21 History potassium chloride 20 mEq 20 meq PO BID #60 tabs 09/23/20 10/21/21 Rx tablet,extended release(part/cryst) (Klor-Con M) valacyclovir 1 gram tablet 1 mg PO UD PRN Cold Sores 04/16/21 10/21/21 History lorazepam 1 mg tablet 1 mg PO TID PRN Anxiety 05/29/21 10/21/21 History propranolol 20 mg tablet 80 mg PO QAM 05/29/21 10/21/21 History ymyaurvh-mbe-zpqzr ac 400 1 tab PO QAM 07/15/21 10/21/21 History mcg-calcium carb 500 mg-vit K1 20 mcg tablet (Women's 50 Plus Multivitamin) zolpidem 5 mg tablet 5 mg PO HS PRN insomnia #0 tabs 07/20/21 10/21/21 Rx chlorthalidone 25 mg tablet 25 mg PO QAM 09/09/21 10/21/21 History dulaglutide 3 mg/0.5 mL 3 mg subcut WK 09/09/21 10/21/21 History subcutaneous pen injector levothyroxine 100 mcg tablet 100 mcg PO Q2D 09/09/21 10/21/21 History levothyroxine 112 mcg tablet 112 mcg PO Q2D 09/09/21 10/21/21 History magnesium 250 mg tablet 250 mg PO QAM 09/09/21 10/21/21 History phenazopyridine 200 mg tablet 200 mg PO UD PRN bladder pain 09/09/21 10/21/21 History (Pyridium) cholestyramine-aspartame 4 gram 4 g PO BID PRN .bloating 10/21/21 10/21/21 History oral powder for susp in a packet (Cholestyramine Light) mometasone 0.1 % topical cream 1 applic topical BID 10/21/21 10/21/21 History tramadol 50 mg tablet 50 mg PO DAILY PRN Pain 10/21/21 10/21/21 History Patient History Medical History Anemia HX Arthritis Moeller's esophagus with esophagitis Chronic diarrhea SOMETIMES Depression Diabetes mellitus, type 2 Diverticulitis of sigmoid colon Diverticulosis GERD (gastroesophageal reflux disease) GI bleed RECENT HOSPITALIZED - PT DENIES HX GI BLEED Heel spur B/L feet Hiatal hernia History of colon polyps BENIGN History of fractured vertebra CURRENT, HX FALL JULY 2021 - FELL OF THE TOILET - NO INTERVENTION AT PRESENT/ DR [facility] FOR TO DISCUSS TX OPTIONS - POTENTIAL BACK BRACE History of kidney stones Hyperlipidemia Hypertension NO CURRENT MEDS 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) Spleen enlarged MONITORS - PT REPORTS FROM THE REBOLLAR Stucco keratoses Temporomandibular joint disorder NO LOCKING/WEARS SPOUTER Thyroid disease UTI (urinary tract infection) HX, JULY 2021 -HOSPITALIZED FOR , NOW RESOLVED DURING TESTING FOUND 2 LUMPS IN INTESTINES...REASON FOR UPCOMING COLONOSCOPY Surgical History H/O thumb surgery RT/LEFT JOINT REPAIR H/O total hysterectomy History of appendectomy History of arthroscopy of knee Left Knee - meniscus/cartilage History of colonoscopy History of cystoscopy History of esophagogastroduodenoscopy (EGD) History of tonsillectomy and adenoidectomy History of tooth extraction Hx of cholecystectomy Family History Brother Coronary heart disease Heart disease Mother Family history of diabetes mellitus Hypertension Heart disease Sister Family history of diabetes mellitus Son Family history of diabetes mellitus Father Family hx of colon cancer Hearing loss Hypertension Cancer Heart disease Grandfather (Maternal) Family hx of colon cancer Other No family history of adverse response to anesthesia No family history of bleeding disorder Social History Smoking Status: Former smoker Second Hand Exposure: No; Do You Dip or Chew Tobacco: No; Tobacco Cessation Education Requested by Patient: No Hx Alcohol Use: No Hx Substance Use: No Preferred Language: Urdu Communication Ability: Effective Document Control Supervisor Required: No Beliefs That Will Affect Care: None marital status: Current Living Situation: Spouse Current Living Situation Comment: and sister current occupational status: employed and retired How many Children do You have: 0 Other Information That Helps Us Care for You: No Feels Safe at Home: Yes Safety Concerns: Feels Safe At This Time Assistive Devices: Cane and Walker Review of Systems Review of Systems: All systems reviewed & are unremarkable except as noted in HPI & below Physical Exam Constitutional: WD/WN, vitals as above Eyes: + anicteric sclerae and PERRL ENMT: external ear and nose normal, oropharynx normal Respiratory: normal respiratory effort, lungs clear to auscultation Cardiovascular: RRR, no murmur, no edema Gastrointestinal (Abdomen): normal bowel sounds, soft, nontender, no hepatosplenomegaly Skin: no rashes, warm and dry Psychiatric: A+Ox3, euthymic affect Results & Data ([facility]) Vital Signs (Past 12 Hours) Vital Signs Temp Pulse Pulse Resp BP Pulse Ox O2 Del Method 10/23/21 08:13 36.4 C L 76 18 124/66 91 Room Air 10/23/21 07:40 76 10/23/21 03:21 36.6 C 76 17 116/68 94 Room Air 10/22/21 23:00 78 Diagnostic Findings US gallbladder CLINICAL HISTORY: Liver/biliary system - Elevated Tbili, AST, alkaline phosphatase. COMPARISON STUDY: Right upper quadrant ultrasound September 24, 2020. CT of the abdomen and pelvis July 15, 2021. FINDINGS: Coarsening of hepatic echotexture is consistent with cirrhosis. No hepatic lesions are identified by sonography. The main portal vein is patent with appropriately directed flow. There is possible nonocclusive thrombus within the left portal vein or a collateral vein. Recanalized paraumbilical vein is noted. Dilatation of the common bile duct, measuring 1.2 cm, similar to CT of July 15, 2021. This is likely related to cholecystectomy. The pancreatic body is normal. Head and tail are obscured. There is no right hydronephrosis. IMPRESSION: 1. Cirrhosis. No hepatic lesions identified by sonography. 2. Dilatation of the common bile duct, similar to CT of July 15, 2021. This is likely related to cholecystectomy. 3. Possible nonocclusive thrombus within the left portal vein or a collateral vein. A CT of the abdomen with IV contrast could be obtained for further evaluation. 4. Recanalized paraumbilical vein indicative of portal hypertension. 5. Obscured pancreas. CT abdomen w IV con CLINICAL HISTORY: Exam portal vein for possible thrombus TECHNIQUE: Helical axial images of the abdomen were obtained. Automated dose lowering techniques and/or adjustment according to patient size were utilized for this exam. This exam was performed with intravenous contrast. CT DOSE: 293.65 mGy.cm Comparison: None available at the time of this dictation. FINDINGS: Lower chest: No acute abnormality Liver: Unremarkable. No focal lesions are seen. Gallbladder and biliary tree: Patient is status post cholecystectomy. Physiologic prominence of the biliary ducts is noted. Pancreas: There is mild prominence of the pancreatic duct which measures approximately 4 mm in the pancreatic body. This is likely secondary to common bile duct physiologic dilation. Spleen: Unremarkable. Adrenals: Unremarkable. Kidneys and ureters: Unremarkable. Bowel: Unremarkable apart from previously noted duodenal diverticulum.. Lymph nodes Retroperitoneal: Unremarkable. Mesenteric: Unremarkable. Peritoneum: Normal. Vessels: Calcifications are seen in the aorta. There is no evidence of portal venous thrombus. Abdominal wall: Unremarkable. Bones: Unremarkable. IMPRESSION: No acute abnormality and in particular no evidence of portal venous thrombus. Additional findings as above. 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
--- NOTE | 2021-10-23 17:28 | Hospitalist Progress Note ---
Date of Service October 23, 2021 Assessment & Plan (1) Hyperbilirubinemia: Plan: Tbili is 5.1 on admission. Baseline runs around 2.2 - 2.6. Unclear etiology for rise. - Liver/biliary u/s ordered--as above, CBD dilatation similar to 07/2021, possible nonocclusive thrombus in L portal vein-CTA neg for this - Blood cultures ordered, NGTD - Empiric Zosyn on board but have a low index of suspicion for infection thus stopped - Checked with bedside u/s and no ascites found, so SBP essentially ruled out - TB stable this AM w/o significant change at 5, noted scleral icterus - At this point, not much more to offer this patient - has scheduled follow up with security systems integrator in [place] in February and established with GI locally (2) Acute hepatic encephalopathy: Plan: NH3+ was 80 on admission. Had prior episode back in 09/2020, but not routinely on lactulose due to prior diarrhea from C. diff. 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 Sounds like a tension-type headache with circumferential pain and down jaw as well. No CN deficients on admission. - Tramadol ordered, use as needed, instructed RN to give dose now (5) Hypomagnesemia: Plan: - Mag 1.6 - replacement ordered - K+ 3.0 - replacement ordered - Repeat labs in AM (6) Hypothyroidism: Plan: TSH was 1.5 this admission. - Continue home levothyroxine (7) DVT prophylaxis: Plan: SCDs DNR/DNI - Patient reports she knows her liver is bad and that if she were to have her heart stop or stop breathing, it would further injure liver, and it is possible she would end up needing a liver transplant. Discussed that it is hard to tell for sure, but certainly if her heart stops or she stops breathing, it would indicate a high level of illness. She declines heroic measures and would prefer us to let her pass peacefully in that circumstance and reports that her and sister both know and understand these wishes. While there is some concern for encephalopathy, she is clearly cognizant with me and very clearly understands the consequences of being DNR/DNI. Plan Hopeful to discharge tomorrow. Plan to be d/w Dr. Stuart. Admission and Anticipated Discharge Date Admission Date: October 22, 2021 Subjective Patient seen on daily rounds this morning. She continues to state that he "doesn't feel well." Now is having frequent stooling related to the lactulose and spasms. No other complaints. Denies n/v. She is scheduled to see hepatology in follow up in February. Also follows locally with Dr. García. Review of Systems Review of Systems: All systems reviewed and are unremarkable except as noted in HPI and below. Denies fever, chills, fatigue, nasal congestion, sore throat, cough, chest pain, shortness of breath, palpitations, orthopnea, PND, n, n/v/d, constipation, dysuria, hematuria, frequency, back pain, joint pain or swelling, easy bruising or bleeding, skin lesions or rashes. Physical Exam Physical Exam: GENERAL: 66 yo Well-developed, well-nourished WF. NAD. EYES: Scleral icterus noted b/l LUNGS: Clear to auscultation bilaterally w/o w/r/r. CARDIOVASCULAR: Regular rate and rhythm. ABDOMEN: Soft, non-tender and non-distended. BS normoactive x 4 quad. EXTREMITIES: No edema. Non-tender. Peripheral pulses +2/4. NEUROLOGIC: A&O x3. No focal neurological deficits. PSYCHIATRIC: Cooperative. Appropriate mood and affect. SKIN: Warm, dry, intact. No rashes or lesions. Results & Data Results & Data ([facility]) Vital Signs (Past 12 Hours) Vital Signs Temp Pulse Pulse Resp BP Pulse Ox O2 Del Method 10/23/21 15:15 36.7 C 72 18 117/72 93 Room Air 10/23/21 17:01 77 10/23/21 11:07 36.8 C 75 18 143/73 H 93 Room Air 10/23/21 08:30 Room Air 10/23/21 08:13 36.4 C L 76 18 124/66 91 Room Air 10/23/21 07:40 76 Laboratory Results 10/23/21 07:17 10/23/21 07:17 TB=5.5 Mag=1.6 Ammonia=67 (down from 86) PG Care Time/CCT Total # of Minutes Spent Total Time Spent with Patient: Total time spent is greater than 50% in coordination of care (as documented) at patient's floor/unit and/or counseling patient: Coding Level of Care Code 45988 Subseq Hosp Care Lvl 2 Diagnoses Hyperbilirubinemia E80.6 Acute hepatic encephalopathy K72.00 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
[2021-10-23] MEDS: ROSUVASTATIN CALCIUM 20 MG TAB PO SCH (19:59)
--- NOTE | 2021-10-23 23:06 | Electrocardiogram Report ---
Test Reason : Blood Pressure : / mmHG Vent. Rate : 083 BPM Atrial Rate : 083 BPM P-R Int : 142 ms QRS Dur : 084 ms QT Int : 410 ms P-R-T Axes : 023 000 016 degrees QTc Int : 481 ms Normal sinus rhythm Nonspecific ST abnormality Prolonged QT Abnormal ECG When compared with ECG of 15-JUL-2021 09:54, QT has lengthened Confirmed by Sg Clark ([id number]) on 10/23/2021 11:05:49 PM Referred By: REFERRED SELF Confirmed By:Sg Clark
[2021-10-24] MEDS: LEVOTHYROXINE SODIUM 112 MCG TABLET PO SCH (06:04)
[2021-10-24] MEDS: PARoxetine HCL 20 MG TAB PO SCH (08:39)
[2021-10-24] MEDS: MAGNESIUM OXIDE 400 MG TAB PO SCH (08:39)
[2021-10-24] MEDS: INSULIN ASPART PER UNIT SC SCH ×3 (08:39→17:19)
[2021-10-24] MEDS: LACTULOSE SYRUP 20 GM/30 ML UDC PO SCH (08:40)
[2021-10-24] MEDS: PROPRANOLOL HCL 20 MG TAB PO SCH (08:40)
[2021-10-24 11:45] LABS: Basophils # (auto) 0.01 K/uL (0-0.2); Basophils % (auto) 0.2 %; Eosinophils # (auto) 0.33 K/uL (0-0.50); Eosinophils % (auto) 6.4 %; Hematocrit (blood only) 32.5 % (34.1-44.9); Hemoglobin 11.4 g/dl (12.0-16.0); Immature Granulocytes # (auto) 0.01 K/uL (0.00-0.02); Immature Granulocytes % (auto) 0.2 %; Lymphocytes # (auto) 1.49 K/uL (1.2-3.4); Lymphocytes % (auto) 28.8 %; Mean Corpuscular Hemoglobin 31.6 pg (25.0-34.0); Mean Corpuscular Hgb Conc 35.1 g/dL (32.0-36.0); Mean Platelet Volume 9.2 fL (9.4-12.3); Monocytes % (auto) 15.5 %; Neutrophils # (auto) 2.53 K/uL (1.4-6.5); Neutrophils % (auto) 48.9 %; Platelet Count 102 K/uL (130-400); RDW Coefficient of Variation 15.1 % (11.5-14.5); RDW Standard Deviation 50.2 fL (36.4-46.3); Red Blood Count 3.61 M/uL (3.93-5.22); White Blood Count 5.17 K/ul (4.8-10.8)
[2021-10-24 11:57] LABS: Albumin Globulin Ratio 1.7 (0.9-2); Albumin Level 3.3 gm/dl (3.4-5.0); BUN Creatinine Ratio 11.7 (10-20); Bilirubin,Total 5.1 mg/dl (0.2-1.0); Calcium 9.7 mg/dl (8.5-10.1); Creatinine Clr Calc Pharmacy 48.9 ml/min; Est GFR (African American) 64.7 ml/min; Est GFR (Non-African American) 55.8 ml/min; Magnesium 1.6 mg/dl (1.7-2.4); Potassium 3.2 mmol/L (3.5-5.1); Total Protein 5.3 gm/dl (6.0-8.3)
[2021-10-24] MEDS ORDERED: POTASSIUM CHLORIDE CRTAB 20 MEQ TABCR PO STA (14:29)
[2021-10-24] MEDS ORDERED: MAGNESIUM SULFATE / D5W 1 GM/100 ML BAG IV ONE (14:29)
--- NOTE | 2021-10-24 14:44 | Discharge Summary ---
Date of Service October 24, 2021 Admission HPI Per Admitting Provider 66yo F w/ hx of REBOLLAR cirrhosis who presents with shaking, headache, and confusion. Patient reports loss of appetite and fatigue for about 1 week. Has had some off/on tremors as well. Last few days urine has been darker as well. Last night, she had some chills and her felt she was feverish. This morning, she reports she developed a headache that is generally around the entire head. Principal Diagnosis 1. Hyperbilirubinemia d/t advanced liver disease 2. Hepatic encephalopathy - resolved Discharge Exam GENERAL: 66 yo Well-developed, well-nourished WF. NAD. EYES: Scleral icterus noted b/l LUNGS: Clear to auscultation bilaterally w/o w/r/r. CARDIOVASCULAR: Regular rate and rhythm. ABDOMEN: Soft, non-tender and non-distended. BS normoactive x 4 quad. EXTREMITIES: No edema. Non-tender. Peripheral pulses +2/4. NEUROLOGIC: A&O x3. No focal neurological deficits. PSYCHIATRIC: Cooperative. Appropriate mood and affect. SKIN: Warm, dry, intact. No rashes or lesions. Discharge Data Allergies Allergy/AdvReac Type Severity Reaction Status Date / Time bee venom protein (honey bee) Allergy Severe Anaphylaxis Verified 10/21/21 23:09 Influenza Virus Vaccines Allergy Severe Anaphylaxis Verified 10/21/21 23:09 tetracycline AdvReac Severe Severe Verified 10/21/21 23:09 stomach pains Consultations 10/21/21 23:53 ED Decision to Admit Stat 10/23/21 09:49 Consult Gastroenterology Routine Ordered Studies Chest X-Ray 10/21/21 21:23 XR chest 1V portable CLINICAL HISTORY: AMS TECHNIQUE: Single frontal radiograph of the chest was obtained. Comparison: Comparison is made to chest radiograph 122 FINDINGS: No lines and tubes are seen. The cardiomediastinal silhouette is normal. The lungs are clear. No evidence of pleural effusion or pneumothorax. IMPRESSION: No acute chest disease. ACT 112: Negative or not required by law. Electronically signed by: Kiel Cross M.D. 10/22/2021 7:[address] 10/21/21 21:23 CT OF THE HEAD WITHOUT CONTRAST CLINICAL HISTORY: Altered mental status. COMPARISON STUDY: MRI of the brain September 24, 2020. Head CT September 10, 2020. CT DOSE: 691.05 mGy.cm TECHNIQUE: Helical axial images of the head were obtained without IV contrast. Automated exposure control was utilized for the study. A dose lowering technique was utilized adhering to the principles of ALARA. FINDINGS: No acute intracranial hemorrhage, midline shift or mass effect is present. White matter hypodensities are similar to prior exams and favor small vessel disease. The ventricular system is unremarkable. The basal cisterns are patent. No extra-axial collections are present. There are no findings to suggest acute dural sinus thrombosis or acute territorial infarct. No significant calvarial abnormalities are present. Trace fluid within the bilateral mastoid air cells, unchanged. IMPRESSION: No acute intracranial findings. ACT 112: Negative or not required by law. Electronically signed by: Keven Bettencourt M.D. 10/22/2021 9:13 AM Gallbladder Ultrasound 10/22/21 00:58 US gallbladder CLINICAL HISTORY: Liver/biliary system - Elevated Tbili, AST, alkaline phosphatase. COMPARISON STUDY: Right upper quadrant ultrasound September 24, 2020. CT of the abdomen and pelvis July 15, 2021. FINDINGS: Coarsening of hepatic echotexture is consistent with cirrhosis. No hepatic lesions are identified by sonography. The main portal vein is patent with appropriately directed flow. There is possible nonocclusive thrombus within the left portal vein or a collateral vein. Recanalized paraumbilical vein is noted. Dilatation of the common bile duct, measuring 1.2 cm, similar to CT of July 15, 2021. This is likely related to cholecystectomy. The pancreatic body is normal. Head and tail are obscured. There is no right hydronephrosis. IMPRESSION: 1. Cirrhosis. No hepatic lesions identified by sonography. 2. Dilatation of the common bile duct, similar to CT of July 15, 2021. This is likely related to cholecystectomy. 3. Possible nonocclusive thrombus within the left portal vein or a collateral vein. A CT of the abdomen with IV contrast could be obtained for further evaluation. 4. Recanalized paraumbilical vein indicative of portal hypertension. 5. Obscured pancreas. ACT 112: Negative or not required by law. Electronically signed by: Keven Bettencourt M.D. 10/22/2021 6:[address] 10/22/21 07:02 CT abdomen w IV con CLINICAL HISTORY: Exam portal vein for possible thrombus TECHNIQUE: Helical axial images of the abdomen were obtained. Automated dose lowering techniques and/or adjustment according to patient size were utilized for this exam. This exam was performed with intravenous contrast. CT DOSE: 293.65 mGy.cm Comparison: None available at the time of this dictation. FINDINGS: Lower chest: No acute abnormality Liver: Unremarkable. No focal lesions are seen. Gallbladder and biliary tree: Patient is status post cholecystectomy. Physiologic prominence of the biliary ducts is noted. Pancreas: There is mild prominence of the pancreatic duct which measures approximately 4 mm in the pancreatic body. This is likely secondary to common bile duct physiologic dilation. Spleen: Unremarkable. Adrenals: Unremarkable. Kidneys and ureters: Unremarkable. Bowel: Unremarkable apart from previously noted duodenal diverticulum.. Lymph nodes Retroperitoneal: Unremarkable. Mesenteric: Unremarkable. Peritoneum: Normal. Vessels: Calcifications are seen in the aorta. There is no evidence of portal venous thrombus. Abdominal wall: Unremarkable. Bones: Unremarkable. IMPRESSION: No acute abnormality and in particular no evidence of portal venous thrombus. Additional findings as above. ACT 112: Negative or not required by law. Electronically signed by: Kiel Cross M.D. 10/22/2021 10:26 AM Hospital Course (1) Hyperbilirubinemia: Tbili is 5.1 on admission. Baseline runs around 2.2 - 2.6. Unclear etiology for rise. - Liver/biliary u/s ordered--as above, CBD dilatation similar to 07/2021, possible nonocclusive thrombus in L portal vein-CTA neg for this - Blood cultures ordered, NGTD - Empiric Zosyn on board but have a low index of suspicion for infection thus stopped - Checked with bedside u/s and no ascites found, so SBP essentially ruled out - TB stable this AM w/o significant change at 5, noted scleral icterus - At this point, not much more to offer this patient - has scheduled follow up with registrar assistant in [place] in February and established with GI locally * Follow up planned with registrar assistant in November and f/u with Dr. García for later this month (2) Acute hepatic encephalopathy: NH3+ was 80 on admission. Had prior episode back in 09/2020, but not routinely on lactulose due to prior diarrhea from C. diff. 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 Sounds like a tension-type headache with circumferential pain and down jaw as well. No CN deficients on admission. - Resolved (5) Hypomagnesemia: - Mag 1.6 - replacement ordered - K+ 3.2 - replacement ordered - Continue outpatient supplementation (6) Hypothyroidism: TSH was 1.5 this admission. - Continue home levothyroxine Plan At this time, pt medically stable for discharge following Mag Sulfate infusion. Rx sent for Mag Ox 400mg BID. Continue KCl at home. Follow up with registrar assistant and senior power scheduler as scheduled. Recommend pcp follow up within 1 week of discharge. Stressed importance of compliance regarding taking her Lactulose. Also discussed briefly w/ pt that if it is determined that nothing further can be done other than referral for liver transplant, she can decide at that time if she wishes to proceed with transplant process versus transition to palliative care/hospice for symptom management. She will keep this in mind when it comes time to make a decision. Plan has been d/w Dr. Stuart who is in agreement with aforementioned. Total Time Total Time Spent Total Time Spent (In Minutes): >30 minutes Discharge Plan Discharge Items Patient Disposition: Home - Self-Care Reason For Visit: ELEV. BILIRUBIN, POSS. HEPATIC ENCEPHALOPATHY Discharge Diagnosis: Advanced liver disease Activity: Resume your previous activity Non-emergency contact: Primary Care Provider and Business Planning Analyst Call non-emergency contact if: you have any medication questions and your symptoms worsen Follow-up/Referrals: Reza Cid MD [Primary Care Provider] - 10/28/21 11:10 am Noe García [Physician] - 11/04/21 11:00 am (Follow Up [facility]-- Dr. García/ [place]) Diet: Regular Addtl Attending Provider Instructions: You were hospitalized due to worsening liver disease which was causing a build of ammonia in your bloodstream. It is imperative that you take your Lactulose two times each day as prescribed and do not skip/miss any doses. You have been scheduled for a follow up with Dr. García in his office. Please keep your scheduled appointment. You also have a follow up with the liver specialist from [place] on December 01. Please take all medications as prescribed. It is recommended that you follow up with your family doctor within 1 week of discharge. If you have any questions following your stay, please call the nonemergency number listed on your discharge paperwork. In the event of a medical emergency, call 911. Pending Studies at Discharge: No Stand-Alone Forms: My [facility] [employer], Smoking Cessation Medications and DC Order Prescriptions: New lactulose 20 gram/30 mL Solution 20 g PO BID Qty: 1200 0RF magnesium oxide 400 mg magnesium tablet 400 mg PO BID Qty: 60 0RF oxycodone 5 mg tablet 5 mg PO Q6H PRN (Reason: pain) Qty: 10 0RF Continued lorazepam 1 mg tablet 1 mg PO TID PRN (Reason: Anxiety) paroxetine HCl 20 mg tablet 40 mg PO QAM potassium chloride [Klor-Con M20] 20 mEq Tablet,Er Particles/Crystals 20 meq PO BID Qty: 60 0RF valacyclovir 1 gram tablet 1 mg PO UD PRN (Reason: Cold Sores) Label Comments: NOT CURRENTLY USING propranolol 20 mg tablet 80 mg PO QAM Rx Instructions: 09/23/21 dr hercules says 20mg bid phenazopyridine [Pyridium] 200 mg tablet 200 mg PO UD PRN (Reason: bladder pain) chlorthalidone 25 mg tablet 25 mg PO QAM levothyroxine 100 mcg tablet 100 mcg PO Q2D Rx Instructions: 100 mcg PO every other day; alternate with 112 mcg; (VERIFIED PAT CALL 09/09/21) levothyroxine 112 mcg tablet 112 mcg PO Q2D Rx Instructions: 112 mcg PO every other day, alternate with 100 mcg. Take 1st thing in the morning on an empty stomach 30 min prior to any other oral intake. (VERIFIED PAT CALL 09/09/21) dulaglutide 3 mg/0.5 mL pen injector 3 mg subcut WK Label Comments: SUNDAYS Rx Instructions: Inject 3 mg subcut once weekly Wednesday tramadol 50 mg tablet 50 mg PO DAILY PRN (Reason: Pain) mometasone 0.1 % cream 1 applic TOPICAL BID Rx Instructions: apply to rash on legs cholestyramine-aspartame [Cholestyramine Light] 4 gram powder in packet 4 g PO BID PRN (Reason: .bloating) Label Comments: CURRENTLY ON HOLD ; LAST DOSE PROBABLY 5 WEEKS AGO Women's 50 Plus Multivitamin 400 mcg-500 mg calcium-20 mcg Tablet 1 tab PO QAM zolpidem 5 mg tablet 5 mg PO HS PRN (Reason: insomnia) Qty: 0 0RF Discontinued rosuvastatin [Crestor] 20 mg tablet 20 mg PO HS magnesium 250 mg tablet 250 mg PO QAM Rx Instructions: OTC Discharge Orders: Discharge Order (Routine); Ordered 10/24/21 Ordered By: Mel Nicholas Admission Data Admit Date/Time: 10/22/21 02:43 Attending Provider: Terrance Stuart Admit Provider: Hoang Kurtz Primary Care Provider: Reza Cid Other Providers: Hoang Kurtz ; [facility] ; Ryan Rosue Coding Level of Care Code D/C DAY MANAGEMENT >30 MINS Diagnoses Hyperbilirubinemia E80.6 Acute hepatic encephalopathy K72.00 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
--- NOTE | 2021-10-31 08:35 | Coding Query ---
CODING QUERY To promote full compliance with coding requirements relating to patient care, provider participation is requested in all cases of [employer] uncertainty. Please assist us with the question(s) below: Coding Question(s): The Discharge Summary documents, "Reason For Visit: ELEV. BILIRUBIN, POSS. HEPATIC ENCEPHALOPATHY", and, "You were hospitalized due to worsening liver disease which was causing a build of ammonia in your bloodstream", and there is documentation of, "Hyperbilirubinemia d/t advanced liver disease", and, "Hepatic encephalopathy" and, "Acute hepatic encephalopathy", as well as documentation of, "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". Please specify below, in your clinical opinion, regarding the diagnosis most responsible for occasioning the inpatient admission. ( ) Both Liver Cirrhosis secondary to REBOLLAR and Acute Hepatic Encephalopathy equally (xxxx) Acute Hepatic Encephalopathy ( ) Liver Cirrhosis secondary to REBOLLAR ( ) Other: Please Specify Physician's Response(s): Thank you Suni Prado Principal Diagnosis: "that condition established after study, to be chiefly responsible for occasioning the admission of the patient to the hospital for care." Co-Existing Principal Diagnosis: "when two or more diagnoses equally meet the criteria for principal diagnosis as determined by the circumstances of admission, diagnostic work up, and/or therapy provided, and the Alphabetic Index, Tabular List, or another coding guideline does not provide sequencing direction, any one of the diagnoses may be sequenced first." "When the physician has documented what appears to be a current diagnosis in the body of the record, but has not included the diagnosis in the final diagnostic statement, the physician should be asked whether the diagnosis should be added." (Source Coding [facility] 2 QTR90. p3-4) GUERO
== END 2021-10-24 18:29 | disposition home health service (06) | DRG 443 ==
LOC: ED 17:40 → SUATTDRO 10-22 02:43 → 2W 10-22 02:43

== ENCOUNTER 2021-11-04 12:24 | Inpatient (IN) ==
[2021-11-04] MEDS ORDERED: LACTULOSE SYRUP 20 GM/30 ML UDC PO ONE (12:39)
[2021-11-04] MEDS ORDERED: SODIUM CHLORIDE 0.9% 1000ML 1,000 ML IV ONE (12:39)
--- NOTE | 2021-11-04 12:49 | Emergency Department Note ---
Impression & Plan Weakness, Syncope, Confusion, Acute UTI, Liver disease, Hypomagnesemia ED Provider Note NAME: SHOLA WYNN AGE: 66 SEX: F : 1955 ARRIVES VIA: Ambulance INFORMANT: [Patient][ems, nurses] ED PROVIDER: [Parveen Jarvis MD] CHIEF COMPLAINT: Syncope, confusion HISTORY OF PRESENT ILLNESS: Patient is a 66-year-old female who was recently in our hospital for an altered mental status and an elevated ammonia level. She is on lactulose as an outpatient. The patient went to her doctor's office today for a scheduled appointment. She had noticed that she was weaker the last few days. The patient had a syncopal spell in her doctor's office. Her ammonia level was thought to be high. She was sent for evaluation and hospitalization. The patient admits to feeling confused, nauseated and forgetful. She feels weak and washed out. She does think that she is drinking fluids properly. She is taking her lactulose as prescribed. No fever, chills, cough or congestion. No abdominal pain. She has a history of Daily. REVIEW OF SYSTEMS: See HPI for pertinent positives and negatives. A total of ten systems were reviewed and were otherwise negative. PMHx/PSHx: See Below SOCIAL HISTORY: See Below. PHYSICAL EXAM: GENERAL: Patient is in no acute distress. HEENT: No acute trauma, normocephalic atraumatic, mucous membranes moist, no nasal congestion, mild scleral icterus. NECK: No stridor, no adenopathy, no meningismus, trachea is midline. LUNGS: Clear to auscultation bilaterally, no wheeze, no rhonchi, breath sounds equal. HEART: Subtle systolic murmur, regular rate and rhythm. ABDOMEN: Soft, nontender, bowel sounds positive, no peritonitis. EXTREMITIES: No cyanosis or edema, full range of motion of all the joints without pain or difficulty, no signs for acute trauma. NEUROLOGIC: Oriented x 3, no acute motor or sensory deficits, no focal weakness. No speech slur. SKIN: No rash, mild jaundice, no diaphoresis. DIFFERENTIAL DIAGNOSIS: Infection, dehydration, renal or liver failure, elevated ammonia level, dysrh ythmia, metabolic abnormality, hypo/hyperglycemia, electrolyte disturbance, anemia, hypoxia, cardiac sources, intracerebral event, toxicologic issues, stroke, TIA, as well as other pathologies. EMERGENCY DEPARTMENT COURSE/PROCEDURES: ECG: Indication was syncope and weakness. The ECG shows a normal sinus rhythm with a rate of 79. LVH is present. There is no ST elevation, no PVCs. The QTc is 460 Continuous Cardiac Monitoring: An order was placed for continuous cardiac monitoring. The monitor shows a rate of 79 with normal sinus rhythm. MEDICAL DECISION MAKING: There is no leukocytosis or concerning anemia. There is a normal platelet count. INR is slightly elevated at 1.3, likely from her liver disease. Magnesium is slightly low at 1.5, no renal failure. Potassium somewhat low at 3.4. Liver enzyme elevation was noted consistent with her history of liver disease. Ammonia level was not elevated. Patient appeared to be in a euthyroid state. ECG showed a normal sinus rhythm, no ischemia, no dysrhythmia. Cardiac enzyme testing x1 is not consistent with acute cardiac injury. Urinalysis is consistent with infection. COVID test returned negative. Brain CT showed no acute bleed or mass-effect. Chest x-ray did not show pneumonia, or free air or CHF. On exam, the patient appeared weak and washed out. She was not toxic, she was not febrile. She was jaundiced. The patient was given oral lactulose, she was given IV magnesium, IV saline and IV ceftriaxone. The patient presents weak, confused, she had a syncopal spell at her doctor's office. She appears to have a UTI. She has ongoing liver disease. She has a low magnesium and is a bit dehydrated. I do think a hospital stay would be warranted. I spoke with the patient and outpatient case manager. The on-call hospitalist was consulted. Of note, as I was talking to the hospitalist about her admission, the nurse approached me. The patient was complaining of some pain in the area of the bladder and asked for some pain control. I did order for IV Toradol. Past Med/Surg History Medical History Anemia HX Arthritis Moeller's esophagus with esophagitis Chronic diarrhea SOMETIMES Depression Diabetes mellitus, type 2 Diverticulitis of sigmoid colon Diverticulosis GERD (gastroesophageal reflux disease) GI bleed RECENT HOSPITALIZED - PT DENIES HX GI BLEED Heel spur B/L feet Hiatal hernia History of colon polyps BENIGN History of fractured vertebra CURRENT, HX FALL JULY 2021 - FELL OF THE TOILET - NO INTERVENTION AT PRESENT/ [facility] FOR TO DISCUSS TX OPTIONS - POTENTIAL BACK BRACE History of kidney stones Hyperlipidemia Hypertension NO CURRENT MEDS Liver cirrhosis secondary to DAILY DAILY (nonalcoholic steatohepatitis) Spleen enlarged MONITORS - PT REPORTS FROM THE DAILY Stucco keratoses Temporomandibular joint disorder 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 Thyroid disease UTI (urinary tract infection) HX, JULY 2021 -HOSPITALIZED FOR , NOW RESOLVED DURING TESTING FOUND 2 LUMPS IN INTESTINES...REASON FOR UPCOMING COLONOSCOPY Surgical History H/O thumb surgery RT/LEFT JOINT REPAIR H/O total hysterectomy History of appendectomy History of arthroscopy of knee Left Knee - meniscus/cartilage History of colonoscopy History of cystoscopy History of esophagogastroduodenoscopy (EGD) History of tonsillectomy and adenoidectomy History of tooth extraction Hx of cholecystectomy Family History Brother Coronary heart disease Heart disease Mother Family history of diabetes mellitus Hypertension Heart disease Sister Family history of diabetes mellitus Son Family history of diabetes mellitus Father Family hx of colon cancer Hearing loss Hypertension Cancer Heart disease Grandfather (Maternal) Family hx of colon cancer Other No family history of adverse response to anesthesia No family history of bleeding disorder Social History Smoking Status: Never smoker Second Hand Exposure: No; Hx Alcohol Use: No Hx Substance Use: No Preferred Language: [place] Communication Ability: Effective 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 Beliefs That Will Affect Care: None marital status: Current Living Situation: Spouse Current Living Situation Comment: and sister current occupational status: employed and retired How many Children do You have: 0 Feels Safe at Home: Yes Assistive Devices: Cane and Walker Allergies Allergies Allergy/AdvReac Type Severity Reaction Status Date / Time bee venom protein (honey bee) Allergy Severe Anaphylaxis Verified 10/21/21 23:09 Influenza Virus Vaccines Allergy Severe Anaphylaxis Verified 10/21/21 23:09 tetracycline AdvReac Severe Severe Verified 10/21/21 23:09 stomach pains Home Meds Home Medications Medication Instructions Recorded Confirmed paroxetine HCl 20 mg tablet 40 mg PO QAM 04/17/19 10/21/21 valacyclovir 1 gram tablet 1 mg PO UD PRN Cold Sores 04/16/21 10/21/21 lorazepam 1 mg tablet 1 mg PO TID PRN Anxiety 05/29/21 11/04/21 propranolol 20 mg tablet 80 mg PO QAM 05/29/21 10/21/21 [id number]-[id number]-ayvcw ac 400 1 tab PO QAM 07/15/21 10/21/21 mcg-calcium carb 500 mg-vit K1 20 mcg tablet (Women's 50 Plus Multivitamin) chlorthalidone 25 mg tablet 25 mg PO QAM 09/09/21 10/21/21 dulaglutide 3 mg/0.5 mL 3 mg subcut WK 09/09/21 10/21/21 subcutaneous pen injector levothyroxine 112 mcg tablet 112 mcg PO Q2D 09/09/21 10/21/21 phenazopyridine 200 mg tablet 200 mg PO UD PRN bladder pain 09/09/21 10/21/21 (Pyridium) cholestyramine-aspartame 4 gram 4 g PO BID PRN .bloating 10/21/21 10/21/21 oral powder for susp in a packet (Cholestyramine Light) mometasone 0.1 % topical cream 1 applic topical BID 10/21/21 11/04/21 tramadol 50 mg tablet 50 mg PO DAILY PRN Pain 10/21/21 10/21/21 hyoscyamine sulfate 0.125 mg 0.125 mg PO QID 11/04/21 11/04/21 disintegrating tablet Previous Rx's Medication Instructions Recorded potassium chloride 20 mEq 20 meq PO BID #60 tabs 09/23/20 tablet,extended release(part/cryst) (Klor-Con M) zolpidem 5 mg tablet 5 mg PO HS PRN insomnia #0 tabs 07/20/21 lactulose 20 gram/30 mL oral 20 g (30 mL) PO BID #1,200 mL 10/24/21 solution magnesium oxide 400 mg PO BID #60 tabs 10/24/21 oxycodone 5 mg tablet 5 mg PO Q6H PRN pain #10 tabs 10/24/21 levothyroxine 100 mcg tablet 100 mcg PO Q2D #45 tabs 10/27/21 Results & Data (ED) Vital Signs Vital Signs - 24 hr 11/04/21 12:37 11/04/21 14:15 Temperature 36.8 C Temperature Source Oral Pulse Rate 79 Pulse Rate [Apical] 79 Pulse Rhythm [Apical] Regular Pulse Strength [Apical] Normal Respiratory Rate 16 16 Respiratory Effort / Characteristics Non-Labored Spontaneous Non-Labored Respiratory Depth Normal Normal Respiratory Pattern Regular Blood Pressure 147/72 H Blood Pressure [Left Arm] 147/70 H Blood Pressure Mean 97 Blood Pressure Mean [Left Arm] 95 Blood Pressure Position [Left Arm] Lying Pulse Oximetry 95 96 Oxygen Delivery Method Room Air Room Air Sepsis Recent Fever Within 48 Hours No Sepsis New/Unexplained Change in Mental Status N/A Sepsis Action Taken by Nursing No Action Required Home Medications Current Medication List: was personally reviewed by me Laboratory Data Attestation: I reviewed the patient's lab results. Result diagrams: 11/04/21 12:37 11/04/21 12:37 Lab Results 11/04/21 11/04/21 11/04/21 Range/Units 12:37 12:37 12:37 WBC 5.35 (4.8-10.8) K/ul RBC 3.78 L (3.93-5.22) M/uL Hgb 11.9 L (12.0-16.0) g/dl Hct 33.7 L (34.1-44.9) % MCV 89.2 (80.0-100.0) fL MCH 31.5 (25.0-34.0) pg MCHC 35.3 (32.0-36.0) g/dL RDW Std Deviation 50.6 H (36.4-46.3) fL RDW Coeff of Charlee 15.7 H (11.5-14.5) % Plt Count 138 (130-400) K/uL MPV 9.1 L (9.4-12.3) fL Immature Gran % (Auto) 0.4 % Neut % (Auto) 47.5 % Lymph % (Auto) 27.7 % [place] % (Auto) 17.0 % Eos % (Auto) 6.7 % Baso % (Auto) 0.7 % Neut # (Auto) 2.54 (1.4-6.5) K/uL Lymph # (Auto) 1.48 (1.2-3.4) K/uL [place] # (Auto) 0.91 H (0.24-0.82) K/uL Eos # (Auto) 0.36 (0-0.50) K/uL Baso # (Auto) 0.04 (0-0.2) K/uL Immature Gran # (Auto) 0.02 (0.00-0.02) K/uL PT 13.3 H (9.0-12.0) Seconds INR 1.3 H (0.9-1.1) APTT 28.2 (21.0-31.0) Seconds PTT Ratio 1.0 Sodium 140 (136-145) mmol/L Potassium 3.4 L (3.5-5.1) mmol/L Chloride 105 (98-107) mmol/L Carbon Dioxide 27 (21-32) mmol/L Anion Gap 8 (3-11) BUN 8 (6-23) mg/dl Creatinine 0.99 (0.6-1.2) mg/dl Est Cr Clr Drug Dosing 52.0 ml/min Est GFR ( Amer) 67.9 ml/min Est GFR (Non-Af Amer) 58.6 ml/min BUN/Creatinine Ratio 8.1 L (10-20) Glucose 118 H (70-99(Fasting)) mg/dl Calcium 10.2 H (8.5-10.1) mg/dl Magnesium 1.5 L (1.7-2.4) mg/dl Total Bilirubin 5.5 H (0.2-1.0) mg/dl AST 81 H (13-39) U/L ALT 43 (7-52) U/L Alkaline Phosphatase 124 H (34-104) U/L Ammonia (18-72) umol/L Troponin I High Sens 6.2 (0-14) pg/ml Total Protein 6.0 (6.0-8.3) gm/dl Albumin 3.6 (3.4-5.0) gm/dl Globulin 2.4 L (2.5-4.0) gm/dl Albumin/Globulin Ratio 1.5 (0.9-2) TSH (0.300-4.500) uIu/ml Urine Color Urine Appearance (Clear) Urine pH (4.5-7.5) Ur Specific [place] (1.000-1.030) Urine Protein (Negative) Urine Glucose (UA) (Negative) Urine Ketones (Negative) Urine Blood (Negative) Urine Nitrite (Negative) Urine Bilirubin (Negative) Urine Urobilinogen (Negative) Ur Leukocyte Esterase (Negative) Urine WBC (Auto) (0-5) /hpf Urine RBC (Auto) (0-4) /hpf U Hyaline Cast (Auto) (0-5) /lpf U Epithel Cells (Auto) (0-5) /lpf Urine Bacteria (Auto) (Negative) Urine Crystals SARS-CoV-2, RNA, NAAT (NEGATIVE) 11/04/21 11/04/21 11/04/21 Range/Units 12:37 12:45 13:08 WBC (4.8-10.8) K/ul RBC (3.93-5.22) M/uL Hgb (12.0-16.0) g/dl Hct (34.1-44.9) % MCV (80.0-100.0) fL MCH (25.0-34.0) pg MCHC (32.0-36.0) g/dL RDW Std Deviation (36.4-46.3) fL RDW Coeff of Charlee (11.5-14.5) % Plt Count (130-400) K/uL MPV (9.4-12.3) fL Immature Gran % (Auto) % Neut % (Auto) % Lymph % (Auto) % [place] % (Auto) % Eos % (Auto) % Baso % (Auto) % Neut # (Auto) (1.4-6.5) K/uL Lymph # (Auto) (1.2-3.4) K/uL [place] # (Auto) (0.24-0.82) K/uL Eos # (Auto) (0-0.50) K/uL Baso # (Auto) (0-0.2) K/uL Immature Gran # (Auto) (0.00-0.02) K/uL PT (9.0-12.0) Seconds INR (0.9-1.1) APTT (21.0-31.0) Seconds PTT Ratio Sodium (136-145) mmol/L Potassium (3.5-5.1) mmol/L Chloride (98-107) mmol/L Carbon Dioxide (21-32) mmol/L Anion Gap (3-11) BUN (6-23) mg/dl Creatinine (0.6-1.2) mg/dl Est Cr Clr Drug Dosing ml/min Est GFR ( Amer) ml/min Est GFR (Non-Af Amer) ml/min BUN/Creatinine Ratio (10-20) Glucose (70-99(Fasting)) mg/dl Calcium (8.5-10.1) mg/dl Magnesium (1.7-2.4) mg/dl Total Bilirubin (0.2-1.0) mg/dl AST (13-39) U/L ALT (7-52) U/L Alkaline Phosphatase (34-104) U/L Ammonia 62.0 (18-72) umol/L Troponin I High Sens (0-14) pg/ml Total Protein (6.0-8.3) gm/dl Albumin (3.4-5.0) gm/dl Globulin (2.5-4.0) gm/dl Albumin/Globulin Ratio (0.9-2) TSH 0.636 (0.300-4.500) uIu/ml Urine Color Urine Appearance (Clear) Urine pH (4.5-7.5) Ur Specific [place] (1.000-1.030) Urine Protein (Negative) Urine Glucose (UA) (Negative) Urine Ketones (Negative) Urine Blood (Negative) Urine Nitrite (Negative) Urine Bilirubin (Negative) Urine Urobilinogen (Negative) Ur Leukocyte Esterase (Negative) Urine WBC (Auto) (0-5) /hpf Urine RBC (Auto) (0-4) /hpf U Hyaline Cast (Auto) (0-5) /lpf U Epithel Cells (Auto) (0-5) /lpf Urine Bacteria (Auto) (Negative) Urine Crystals SARS-CoV-2, RNA, NAAT NEGATIVE (NEGATIVE) 11/04/21 Range/Units 14:00 WBC (4.8-10.8) K/ul RBC (3.93-5.22) M/uL Hgb (12.0-16.0) g/dl Hct (34.1-44.9) % MCV (80.0-100.0) fL MCH (25.0-34.0) pg MCHC (32.0-36.0) g/dL RDW Std Deviation (36.4-46.3) fL RDW Coeff of Charlee (11.5-14.5) % Plt Count (130-400) K/uL MPV (9.4-12.3) fL Immature Gran % (Auto) % Neut % (Auto) % Lymph % (Auto) % [place] % (Auto) % Eos % (Auto) % Baso % (Auto) % Neut # (Auto) (1.4-6.5) K/uL Lymph # (Auto) (1.2-3.4) K/uL [place] # (Auto) (0.24-0.82) K/uL Eos # (Auto) (0-0.50) K/uL Baso # (Auto) (0-0.2) K/uL Immature Gran # (Auto) (0.00-0.02) K/uL PT (9.0-12.0) Seconds INR (0.9-1.1) APTT (21.0-31.0) Seconds PTT Ratio Sodium (136-145) mmol/L Potassium (3.5-5.1) mmol/L Chloride (98-107) mmol/L Carbon Dioxide (21-32) mmol/L Anion Gap (3-11) BUN (6-23) mg/dl Creatinine (0.6-1.2) mg/dl Est Cr Clr Drug Dosing ml/min Est GFR ( Amer) ml/min Est GFR (Non-Af Amer) ml/min BUN/Creatinine Ratio (10-20) Glucose (70-99(Fasting)) mg/dl Calcium (8.5-10.1) mg/dl Magnesium (1.7-2.4) mg/dl Total Bilirubin (0.2-1.0) mg/dl AST (13-39) U/L ALT (7-52) U/L Alkaline Phosphatase (34-104) U/L Ammonia (18-72) umol/L Troponin I High Sens (0-14) pg/ml Total Protein (6.0-8.3) gm/dl Albumin (3.4-5.0) gm/dl Globulin (2.5-4.0) gm/dl Albumin/Globulin Ratio (0.9-2) TSH (0.300-4.500) uIu/ml Urine Color Dark Yellow Urine Appearance Clear (Clear) Urine pH 8.0 H (4.5-7.5) Ur Specific [place] 1.009 (1.000-1.030) Urine Protein Negative (Negative) Urine Glucose (UA) Negative (Negative) Urine Ketones Negative (Negative) Urine Blood Negative (Negative) Urine Nitrite Negative (Negative) Urine Bilirubin Negative (Negative) Urine Urobilinogen Negative (Negative) Ur Leukocyte Esterase 3+ H (Negative) Urine WBC (Auto) >30 H (0-5) /hpf Urine RBC (Auto) 0-4 (0-4) /hpf U Hyaline Cast (Auto) 1-5 (0-5) /lpf U Epithel Cells (Auto) >30 H (0-5) /lpf Urine Bacteria (Auto) Negative (Negative) Urine Crystals Not Reportable SARS-CoV-2, RNA, NAAT (NEGATIVE) Administered Medications Discontinued Medications Sodium Chloride (Nss 1000ml) 1,000 mls @ 999 mls/hr IV .Q1H1M ONE Stop: 11/04/21 13:39 Last Admin: 11/04/21 12:53 Dose: 999 mls/hr Documented By: LEE Magnesium Sulfate/Dextrose (Magnesium Sulfate / D5w) 1 gm in 100 mls @ 100 mls/hr IV Q1H PRIMITIVO Stop: 11/04/21 15:22 Last Admin: 11/04/21 14:17 Dose: 100 mls/hr Documented By: SR Lactulose (Lactulose Syrup 20 Gm/30 Ml Udc) 20 gm PO NOW ONE Stop: 11/04/21 12:40 Last Admin: 11/04/21 12:52 Dose: 20 gm Documented By: LEE Imaging Data Radiologist's Impression: Head CT 11/04/21 12:39 CT head/brain wo con CLINICAL HISTORY: 66 years-old Female with confused. Acutely altered mental status TECHNIQUE: Multiple axial CT images of the head were obtained without contrast. A dose lowering technique was utilized adhering to the principles of ALARA. CT DOSE: 537.48 mGy.cm COMPARISON: 10/21/2021 FINDINGS: No acute intracranial hemorrhage, midline shift, intracranial mass, hydroce phalus, territorial ischemia or abnormal extra-axial collection. Age-related involutional changes. Mild white matter hypodensities suggest chronic microvascular ischemic disease. The calvarium is intact. Trace mastoid effusions. The paranasal sinuses are clear. Unremarkable soft tissues and orbits. IMPRESSION: No acute intracranial abnormality. ACT 112: Negative or not required by law. The above report was generated using voice recognition software. It may contain grammatical, syntax or spelling errors. Electronically signed by: Caleb Shearer M.D. 11/04/2021 2:16 PM Chest X-Ray 11/04/21 12:40 XR chest 1V portable CLINICAL HISTORY: weakness COMPARISON STUDY: Chest radiograph October 21, 2021. FINDINGS: Lung volumes are at the lower limits of normal. Lungs are clear. There is no pneumothorax or pleural effusion. Cardiac size is normal. Mediastinal contours are normal. There is no evidence for pulmonary edema. IMPRESSION: No acute cardiopulmonary findings. ACT 112: Negative or not required by law. Electronically signed by: Keven Bettencourt M.D. 11/04/2021 1:19 PM Discharge Plan Visit Data Chief Complaint: Syncope Stated Complaint: syncope confusion; high ammonia levels ED Provider: Parveen Jarvis Discharge Problem: Weakness, Syncope, Confusion, Acute UTI, Liver disease, Hypomagnesemia Patient Disposition: Admitted As Inpatient Condition: Fair Forms Stand Alone Forms: [facility] [employer] Prescriptions Prescriptions: No Action levothyroxine 100 mcg tablet 100 mcg PO Q2D Qty: 45 1RF Rx Instructions: 100 mcg PO every other day; alternate with 112 mcg lorazepam 1 mg tablet 1 mg PO TID PRN (Reason: Anxiety) paroxetine HCl 20 mg tablet 40 mg PO QAM potassium chloride [Klor-Con M20] 20 mEq Tablet,Er Particles/Crystals 20 meq PO BID Qty: 60 0RF valacyclovir 1 gram tablet 1 mg PO UD PRN (Reason: Cold Sores) Label Comments: NOT CURRENTLY USING propranolol 20 mg tablet 20 mg PO QAM Rx Instructions: 09/23/21 dr hercules says 20mg bid phenazopyridine [Pyridium] 200 mg tablet 200 mg PO UD PRN (Reason: bladder pain) chlorthalidone 25 mg tablet 25 mg PO QAM levothyroxine 112 mcg tablet 112 mcg PO Q2D Rx Instructions: 112 mcg PO every other day, alternate with 100 mcg. Take 1st thing in the morning on an empty stomach 30 min prior to any other oral intake. (VERIFIED PAT CALL 09/09/21) dulaglutide 3 mg/0.5 mL pen injector 3 mg subcut WK Label Comments: SUNDAYS Rx Instructions: Inject 3 mg subcut once weekly Wednesday tramadol 50 mg tablet 50 mg PO DAILY PRN (Reason: Pain) mometasone 0.1 % cream 1 applic TOPICAL BID Rx Instructions: apply to rash on legs cholestyramine-aspartame [Cholestyramine Light] 4 gram powder in packet 4 g PO BID PRN (Reason: .bloating) Label Comments: CURRENTLY ON HOLD ; LAST DOSE PROBABLY 5 WEEKS AGO lactulose 20 gram/30 mL Solution 20 g PO BID Qty: 1200 0RF magnesium oxide 400 mg magnesium tablet 400 mg PO BID Qty: 60 0RF oxycodone 5 mg tablet 5 mg PO Q6H PRN (Reason: pain) Qty: 10 0RF hyoscyamine sulfate 0.125 mg tablet,disintegrating 0.125 mg PO QID Women's 50 Plus Multivitamin 400 mcg-500 mg calcium-20 mcg Tablet 1 tab PO QAM zolpidem 5 mg tablet 5 mg PO HS PRN (Reason: insomnia) Qty: 0 0RF Referrals Referrals: Reza Cid MD [Primary Care Provider] - : Syncope Qualifiers: Syncope type: unspecified Qualified Code(s): R55 - Syncope and collapse
[2021-11-04 13:01] LABS: Basophils # (auto) 0.04 K/uL (0-0.2); Basophils % (auto) 0.7 %; Eosinophils # (auto) 0.36 K/uL (0-0.50); Eosinophils % (auto) 6.7 %; Hematocrit (blood only) 33.7 % (34.1-44.9); Hemoglobin 11.9 g/dl (12.0-16.0); Immature Granulocytes # (auto) 0.02 K/uL (0.00-0.02); Immature Granulocytes % (auto) 0.4 %; Lymphocytes # (auto) 1.48 K/uL (1.2-3.4); Lymphocytes % (auto) 27.7 %; Mean Corpuscular Hemoglobin 31.5 pg (25.0-34.0); Mean Corpuscular Hgb Conc 35.3 g/dL (32.0-36.0); Mean Corpuscular Volume 89.2 fL (80.0-100.0); Mean Platelet Volume 9.1 fL (9.4-12.3); Monocytes # (auto) 0.91 K/uL (0.24-0.82); Neutrophils # (auto) 2.54 K/uL (1.4-6.5); Neutrophils % (auto) 47.5 %; Platelet Count 138 K/uL (130-400); RDW Coefficient of Variation 15.7 % (11.5-14.5); RDW Standard Deviation 50.6 fL (36.4-46.3); Red Blood Count 3.78 M/uL (3.93-5.22); White Blood Count 5.35 K/ul (4.8-10.8)
[2021-11-04 13:12] LABS: INR 1.3 (0.9-1.1); Partial Thromboplastin Time 28.2 Seconds (21.0-31.0); Prothrombin Time 13.3 Seconds (9.0-12.0)
[2021-11-04 13:14] LABS: Albumin Globulin Ratio 1.5 (0.9-2); Albumin Level 3.6 gm/dl (3.4-5.0); BUN Creatinine Ratio 8.1 (10-20); Bilirubin,Total 5.5 mg/dl (0.2-1.0); Calcium 10.2 mg/dl (8.5-10.1); Est GFR (African American) 67.9 ml/min; Est GFR (Non-African American) 58.6 ml/min; Globulin 2.4 gm/dl (2.5-4.0); Magnesium 1.5 mg/dl (1.7-2.4); Potassium 3.4 mmol/L (3.5-5.1)
[2021-11-04 13:17] LABS: Troponin I High Sensitivity 6.2 pg/ml (0-14)
--- NOTE | 2021-11-04 13:20 | XRay Report ---
XR chest 1V portable CLINICAL HISTORY: weakness COMPARISON STUDY: Chest radiograph October 21, 2021. FINDINGS: Lung volumes are at the lower limits of normal. Lungs are clear. There is no pneumothorax o r pleural effusion. Cardiac size is normal. Mediastinal contours are normal. There is no evidence for pulmonary edema. IMPRESSION: No acute cardiopulmonary findings. ACT 112: Negative or not required by law. Electronically signed by: Keven Bettencourt M.D. 11/04/2021 1:19 PM
--- NOTE | 2021-11-04 13:37 | Electrocardiogram Report ---
Test Reason : Blood Pressure : / mmHG Vent. Rate : 079 BPM Atrial Rate : 079 BPM P-R Int : 158 ms QRS Dur : 084 ms QT Int : 402 ms P-R-T Axes : 022 -11 018 degrees QTc Int : 460 ms Normal sinus rhythm Moderate voltage criteria for LVH, may be normal variant Diffuse Minor Nonspecific ST abnormality Borderline ECG When compared with ECG of 21-OCT-2021 21:47, No significant change was found Confirmed by Joseph Davies ([id number]) on 11/04/2021 1:37:11 PM Referred By: REFERRED SELF Confirmed By:Joseph Davies
[2021-11-04] MEDS: MAGNESIUM SULFATE / D5W 1 GM/100 ML BAG IV SCH ×2 (14:17→17:08)
--- NOTE | 2021-11-04 14:17 | CT Scan Report ---
CT head/brain wo con CLINICAL HISTORY: 66 years-old Female with confused. Acutely altered mental status TECHNIQUE: Multiple axial CT images of the head were obtained without contrast. A dose lowering tech nique was utilized adhering to the principles of ALARA. CT DOSE: 537.48 mGy.cm COMPARISON: 10/21/2021 FINDINGS: No acute intracranial hemorrhage, midline shift, intracranial mass, hydrocephalus, territorial ischem ia or abnormal extra-axial collection. Age-related involutional changes. Mild white matter hypodensit ies suggest chronic microvascular ischemic disease. The calvarium is intact. Trace mastoid effusions. The paranasal sinuses are clear. Unremarkable soft tissues and orbits. IMPRESSION: No acute intracranial abnormality. ACT 112: Negative or not required by law. The above report was generated using voice recognition software. It may contain grammatical, syntax o r spelling errors. Electronically signed by: Caleb Shearer M.D. 11/04/2021 2:16 PM
[2021-11-04 14:45] LABS: Appearance Urine Clear (Clear); Bacteria Urine Automated Negative (Negative); Bilirubin Urine Negative (Negative); Blood Urine Negative (Negative); Color Urine Dark Yellow; Epithelial Cell Urine Auto >30 /lpf (0-5); Glucose Urine UA Negative (Negative); Ketones Urine Negative (Negative); Leukocyte Esterase Urine 3+ (Negative); Nitrite Urine Negative (Negative); Protein Urine Negative (Negative); RBC Urine Automated 0-4 /hpf (0-4); Specific Gravity Urine 1.009 (1.000-1.030); Urobilinogen Urine Negative (Negative); WBC Urine Automated >30 /hpf (0-5)
[2021-11-04] MEDS ORDERED: cefTRIAXone SODIUM 2,000 MG/70 ML BAG IV STA (15:24)
[2021-11-04] MEDS ORDERED: KETOROLAC TROMETHAMINE 15 MG/ML VIAL IV STA (15:28)
--- NOTE | 2021-11-04 15:39 | History & Physical Report ---
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 Infected appearing UA with UC pending Continue Rocephin CBC/BMP daily Renal ultrasound pending for dilation of pyelonephritis Bili with ammonia of greater than 150 as outpatient, 62 on inpatient recheck. Patient endorses compliance with lactulose. 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 This has been continued Patient with chronic elevations of bilirubin, AST, alk phos which remain elevated but near baseline No acute decompensation, follow clinically [E] derangements, hypoglycemia, hypokalemia With chronic lactulose use Magnesium repleted, potassium repleted Trend daily Type II DM Glucose checks AC/at bedtime goal [id number] Hold home antilipemics Sliding scale insulin placed BSG 118 on admission DVT prophylaxis: Heparin Disposition: Medical surgical, no chest pain or cardiac dysrhythmia prior to admission CODE STATUS: DNR/DNI (2) Anxiety and depression: (3) Chronic diarrhea: (4) Elevated bilirubin: (5) 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: (6) Sensorineural hearing loss (SNHL) of both ears: (7) Hypomagnesemia: (8) Hypokalemia: (9) Diabetes mellitus, type 2: (10) Moeller's esophagus with esophagitis: History of Present Illness Primary Care Provider: Reza Cid MD Aurelia Kurtz is a 66-year-old female history of medication noncompliance, REBOLLAR cirrhosis, lithiasis, anxiety/depression, sensorineural hearing loss, hyperparathyroidism, UTIs, and C. difficile who presents from her doctor's office with altered mental status and elevated ammonia. She saw her ECP today where she had a syncopal spell, her ammonia returned 128. She has had worsening confusion, nausea, and forgetfulness over the last week. Feels weak. Reports she has been taking her lactulose. 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 Presents for at least 3 to 5 days of progressive fatigue, weakness, some dysuria with frequency, and fogginess/confusion. Initially outpatient evaluation concerning for hyperammonemia was referred to the ER for further care. Propanolol dose is supposed to be 20mg, had gotten 80mg tablets but supposed to be on 20. +several days of feeling poor/washed out reports she has felt more nauseus and 'not quite right' for 3 days. no vomiting has had similar pain/discomfort with UTIs in the past. Gee a little when she pees and has increased frequency No diarrhea, is taking her lactulose BID as prescribed. Last took this morning No fevers, chills, or sweats NO chest pain, no shortness of breath No lightheadedness/dizzyness but feels 'foggy' for a few days. Concerned that her ammonia was very high on outpatient labs, was told was >150 Xifaxan started today Had some pain in her back following a fall 2 months ago, no recent or new pain. Stilla ches in the middle with physical therapy sometimes Medical History: Reviewed Medications: Reviewed medications today Surgical History: Reviewed Allergies: Reviewed Social History: Reviewed Code Status: DNR/DNI, discussed with patient at bedside Allergies Allergy/AdvReac Type Severity Reaction Status Date / Time bee venom protein (honey bee) Allergy Severe Anaphylaxis Verified 11/04/21 16:01 Influenza Virus Vaccines Allergy Severe Anaphylaxis Verified 11/04/21 16:01 tetracycline AdvReac Severe Severe Verified 11/04/21 16:01 stomach pains Home Medications Medication Instructions Recorded Confirmed Type paroxetine HCl 20 mg tablet 20 mg PO QAM 04/17/19 11/04/21 History potassium chloride 20 mEq 20 meq PO BID #60 tabs 09/23/20 11/04/21 Rx tablet,extended release(part/cryst) (Klor-Con M) valacyclovir 1 gram tablet 1 mg PO UD PRN Cold Sores 04/16/21 10/21/21 History lorazepam 1 mg tablet 1 mg PO TID PRN Anxiety 05/29/21 11/04/21 History bwzcsbjp-qpm-bzevd ac 400 1 tab PO QAM 07/15/21 11/04/21 History mcg-calcium carb 500 mg-vit K1 20 mcg tablet (Women's 50 Plus Multivitamin) zolpidem 5 mg tablet 5 mg PO HS PRN insomnia #0 tabs 05/08/22 08/09/22 Rx chlorthalidone 25 mg tablet 25 mg PO QAM 09/09/21 10/21/21 History dulaglutide 3 mg/0.5 mL 3 mg subcut WK 09/09/21 11/04/21 History subcutaneous pen injector levothyroxine 112 mcg tablet 112 mcg PO Q2D 09/09/21 11/04/21 History phenazopyridine 200 mg tablet 200 mg PO UD PRN bladder pain 09/09/21 10/21/21 History (Pyridium) cholestyramine-aspartame 4 gram 4 g PO BID PRN .bloating 10/21/21 10/21/21 History oral powder for susp in a packet (Cholestyramine Light) tramadol 50 mg tablet 50 mg PO DAILY PRN Pain 10/21/21 11/04/21 History lactulose 20 gram/30 mL oral 20 g (30 mL) PO BID #1,200 mL 10/24/21 11/04/21 Rx solution magnesium oxide 400 mg PO BID #60 tabs 10/24/21 11/04/21 Rx oxycodone 5 mg tablet 5 mg PO Q6H PRN pain #10 tabs 10/24/21 11/04/21 Rx levothyroxine 100 mcg tablet 100 mcg PO Q2D #45 tabs 10/27/21 11/04/21 Rx hyoscyamine sulfate 0.125 mg 0.125 mg PO QID 11/04/21 11/04/21 History disintegrating tablet omeprazole 40 mg capsule,delayed 40 mg PO DAILY 11/04/21 11/04/21 History release propranolol 80 mg capsule,24 80 mg PO BID 11/04/21 11/04/21 History hr,extended release Past Med/Surg History Medical History (Updated 11/04/21 @ 16:01 by Fredy Louis MD) Anemia HX Arthritis Moeller's esophagus with esophagitis Chronic diarrhea SOMETIMES Depression Diabetes mellitus, type 2 Diverticulitis of sigmoid colon Diverticulosis GERD (gastroesophageal reflux disease) GI bleed RECENT HOSPITALIZED - PT DENIES HX GI BLEED Heel spur B/L feet Hiatal hernia History of colon polyps BENIGN History of fractured vertebra CURRENT, HX FALL JULY 2021 - FELL OF THE TOILET - NO INTERVENTION AT PRESENT/ [facility] FOR TO DISCUSS TX OPTIONS - POTENTIAL BACK BRACE History of kidney stones Hyperlipidemia Hypertension NO CURRENT MEDS 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) Spleen enlarged MONITORS - PT REPORTS FROM THE REBOLLAR Stucco keratoses Temporomandibular joint disorder NO LOCKING/WEARS SALT W[employer]VE[employer]ING STATION Thyroid disease UTI (urinary tract infection) HX, JULY 2021 -HOSPITALIZED FOR , NOW RESOLVED DURING TESTING FOUND 2 LUMPS IN INTESTINES...REASON FOR UPCOMING COLONOSCOPY Surgical History H/O thumb surgery RT/LEFT JOINT REPAIR H/O total hysterectomy History of appendectomy History of arthroscopy of knee Left Knee - meniscus/cartilage History of colonoscopy History of cystoscopy History of esophagogastroduodenoscopy (EGD) History of tonsillectomy and adenoidectomy History of tooth extraction Hx of cholecystectomy Family History Brother Coronary heart disease Heart disease Mother Family history of diabetes mellitus Hypertension Heart disease Sister Family history of diabetes mellitus Son Family history of diabetes mellitus Father Family hx of colon cancer Hearing loss Hypertension Cancer Heart disease Grandfather (Maternal) Family hx of colon cancer Other No family history of adverse response to anesthesia No family history of bleeding disorder Social History Smoking Status: Never smoker Second Hand Exposure: No; Hx Alcohol Use: No Hx Substance Use: No Preferred Language: Senegalese Communication Ability: Effective Greensman Required: No Beliefs That Will Affect Care: None marital status: Current Living Situation: Spouse Current Living Situation Comment: and sister current occupational status: employed and retired How many Children do You have: 0 Feels Safe at Home: Yes Assistive Devices: Cane and Walker Review of Systems Review of Systems: All systems reviewed & are unremarkable except as noted in Subjective Physical Exam Physical Exam: General: A&Ox3. NAD. Cooperative. HEENT: Atraumatic, normocephalic. Vision/Hearing intact.. Trace Scleral icterus. Pulm: CTAB A&P. -wheezes, -rales, -rhonchi. Symmetrical chest rise. No increase in work of breathing. No respiratory distress. Cardiac: RRR, soft systolic murmur. Radial pulses intact and symmetrical. Abdominal: Nontender, nondistended, soft. BS present. Ext: Warm, dry. Moves all extremities equally Results & Data [facility] Vital Signs (Past 12 Hours) Vital Signs Temp Pulse Pulse Resp BP BP Pulse Ox 11/04/21 14:15 79 16 147/70 H 96 11/04/21 12:37 36.8 C 79 16 147/72 H 95 O2 Del Method 11/04/21 14:15 Room Air 11/04/21 12:37 Room Air PG Care Time/CCT Total # of Minutes Spent Total Time Spent with Patient: Total time spent is greater than 50% in coordination of care (as documented) at patient's floor/unit and/or counseling patient: Coding Level of Care Code INT OBSERVATION CARE 50M LVL 2 Diagnoses Acute UTI N39.0 Anxiety and depression F41.9; F32.9 Chronic diarrhea K52.9 Elevated bilirubin R17 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 Sensorineural hearing loss (SNHL) of both ears H90.3 Hypomagnesemia E83.42 Hypokalemia E87.6 Diabetes mellitus, type 2 E11.9 Moeller's esophagus with esophagitis K22.70; K20.9
[2021-11-04] MEDS ORDERED: GLUCAGON FOR INJ 1 MG VIAL SQ PRN (18:09)
[2021-11-04] MEDS ORDERED: oxyCODONE HCL IR 5 MG TAB (IMMEDIATE RELEASE) PO PRN (18:09)
[2021-11-04] MEDS ORDERED: DEXTROSE 50% 50 ML SYRINGE IV PRN (18:09)
[2021-11-04] MEDS ORDERED: GLUCOSE 10 TAB/TUBE PO PRN (18:09)
[2021-11-04] MEDS ORDERED: GLUCOSE 40% GEL 15 GM TUBE PO PRN (18:09)
[2021-11-04] MEDS ORDERED: POLYETHYLENE (MIRALAX) 17 GM PACK PO PRN (18:09)
[2021-11-04] MEDS ORDERED: CARBOHYDRATES FOR HYPOGLYCEMIA PO PRN (18:09)
[2021-11-04] MEDS ORDERED: MAGNESIUM SULFATE / D5W 1 GM/100 ML BAG IV ONE (18:09)
[2021-11-04] MEDS ORDERED: LORazepam 1 MG TAB PO PRN (18:09)
[2021-11-04] MEDS: INSULIN ASPART PER UNIT SC SCH ×2 (19:56→21:15)
[2021-11-04] MEDS: ENOXAPARIN INJ 40 MG/0.4 ML SYR SQ SCH (20:49)
[2021-11-04] MEDS: rifAXIMin 550 MG TABLET PO SCH (20:56)
[2021-11-04] MEDS: MAGNESIUM OXIDE 400 MG TAB PO SCH (20:56)
[2021-11-04] MEDS: POTASSIUM CHLORIDE CRTAB 20 MEQ TABCR PO SCH (20:57)
[2021-11-04] MEDS ORDERED: LACTULOSE SYRUP 20 GM/30 ML UDC PO SCH (21:00)
[2021-11-04] MEDS: LANTUS PER UNIT CHARGE SQ SCH (21:16)
[2021-11-05] MEDS ORDERED: PHENAZOPYRIDINE HCL 200 MG TAB PO PRN (00:08)
[2021-11-05 06:10] LABS: Basophils # (auto) 0.02 K/uL (0-0.2); Basophils % (auto) 0.3 %; Eosinophils # (auto) 0.37 K/uL (0-0.50); Eosinophils % (auto) 6.3 %; Hematocrit (blood only) 31.6 % (34.1-44.9); Hemoglobin 10.8 g/dl (12.0-16.0); Immature Granulocytes # (auto) 0.02 K/uL (0.00-0.02); Immature Granulocytes % (auto) 0.3 %; Lymphocytes # (auto) 2.09 K/uL (1.2-3.4); Lymphocytes % (auto) 35.8 %; Mean Corpuscular Hgb Conc 34.2 g/dL (32.0-36.0); Mean Corpuscular Volume 90.8 fL (80.0-100.0); Mean Platelet Volume 8.7 fL (9.4-12.3); Monocytes # (auto) 0.93 K/uL (0.24-0.82); Neutrophils % (auto) 41.3 %; Platelet Count 124 K/uL (130-400); RDW Coefficient of Variation 15.4 % (11.5-14.5); RDW Standard Deviation 51.2 fL (36.4-46.3); Red Blood Count 3.48 M/uL (3.93-5.22); White Blood Count 5.83 K/ul (4.8-10.8)
[2021-11-05] MEDS: LEVOTHYROXINE SODIUM 100 MCG TABLET PO SCH (06:32)
[2021-11-05 06:36] LABS: Albumin Globulin Ratio 1.8 (0.9-2); Albumin Level 3.3 gm/dl (3.4-5.0); BUN Creatinine Ratio 8.4 (10-20); Bilirubin,Total 4.7 mg/dl (0.2-1.0); Creatinine Clr Calc Pharmacy 39.3 ml/min; Est GFR (African American) 48.4 ml/min; Est GFR (Non-African American) 41.7 ml/min; Globulin 1.8 gm/dl (2.5-4.0); Potassium 3.4 mmol/L (3.5-5.1); Total Protein 5.1 gm/dl (6.0-8.3)
[2021-11-05] MEDS ORDERED: POTASSIUM CHLORIDE CRTAB 20 MEQ TABCR PO STA (07:36)
--- NOTE | 2021-11-05 07:44 | Hospitalist Progress Note ---
Date of Service November 05, 2021 Assessment & Plan (1) Abdominal pain: Plan: Admitted with weakness, confusion, abdominal pain Suspected related to UTI on admission (urine cx pending), however was just admitted 10/22-10/24 for liver cirrhosis and shaking/headache/confusion with elevated ammonia level in the setting of not using her lactulose as an outpatient as she was having cramping and diarrhea with the lactulose Patient reports no BM in prior 3 days. Prior admit for not using lactulose however patient does endorse compliance Prior admit w/ reports not using due to diarrhea (Of note, prior admit in July w/ cdiff), CTAP for further eval Ammonia was 128 outpatient check, repeat inpatient was 62 (?error), however again elevated to 121 this morning Rifaximin has been started inpatient, continue Increased lactulose to 20 mg TID, titrate further QID vs increased dose Will also give 1x lactulose enema given moderate stool throughout colon/rectum as well but did not have evidence for obstruction LFTs improving --> TB 5.5--> 4.7 AST 81-->73 ALP 124--> 113 CTAP ordered for further eval given hx diverticulitis/lower abdominal pain and cdiff earlier this year On ceftriaxone for suspected UTI on admit No blood cultures obtained on admit GI on consult for consideration for ERCP given dilation of CBD * -Ordered KUB, rec to continue rifaximin/lactulose * -Alzada pain related to constipation given lack of BM and LFTs imroving, felt related to noncompliance given recent admit Of note, was also sent on PO Mag oxide (MAG 1.5 ON ADMIT) * --> ?if worsening diarrhea at home after that causing her to maybe not take. Will need to reach out to her sister for corroboration however GI provider outpatient endorses patient w/ recent compliance. Also if needing PO mag, rec slow mag She did also recently enroll in palliative services after d/c last admit but has appt in Nov w/ Hepatology in [place] for consideration for transplant, that the patient states she wants to have transplant Also appears to be on chlorthalidone 25mg daily (Cr elevated to 1.3 but did get dose of toradol in ER, hold further NSAIDs) . Resumed given distension and possible ascites. (2) 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: Plan: as above, outpt f/u Dr [place] Ulloa and [facility] Hepatology (3) Hypercalcemia: Plan: on admit, Ca 10.2 appears has had similar elevations in the past (hx calcium and uric acid based kidney stones) per Dr Chau's notes hx mild hypercalcemia while on thiazide diuretic, normal Vit D, PTH incompletely suppressed. Advised 2.5-3L free water intake/day ?if contributing to constipation did resume chlorthalidone this morning but given elevation will place on hold and order 500cc NSS @ 80cc/hr Albumin 3.3 --> corrected remains slightly above normal limits Prior admit with Vitamin D level at 57, PTH 28.5 in September 2021 Will repeat in AM along with ionized ca (4) Acute UTI: Plan: suspected on admit, but more likely related to elevated ammonia continues on ceftriaxone empirically, monitor urine cx denies dysuria symptoms Renal US ordered for eval pyelonephritis -- no evidence CTAP ordered for eval for above (5) Anxiety and depression: Plan: continue lorazepam -- cautious given confusion on admission (6) Chronic diarrhea: Plan: prior reports, now w/ constipation ?medication non-compliance had been sent w/ [facility] in July, no longer taking? check stool sample once going given prior +cdiff (7) Elevated bilirubin: Plan: improving continue rifaximin, lactulose as outlined (8) Sensorineural hearing loss (SNHL) of both ears: (9) Hypomagnesemia: Plan: 1.5 on admit, IV replacment ordered repeat wnl 2.0 had been sent on po rx for mag oxide earlier this month, ?causing worsening mag (10) Hypokalemia: Plan: 3.4 on am labs, replacement ordered, ?2nd to chlorthalidone use at home bmp in AM (11) Diabetes mellitus, type 2: Plan: Last A1c 6.4 continue glargine 7u BID, ISS while inpatient BSGs acceptable (12) Moeller's esophagus with esophagitis: Plan: hx of such on PPI once daily outpatient, Protonix while inpatient (13) Hypothyroidism: Plan: TSH wnl remains on levothyroxine 100/112mcg alternating doses Plan continued inpatient stay, changed to full admit Lactulose enema x 1 CTAP pending PT/OT consulted DVT prophylaxis: Heparin SQ ordered, switched to Lovenox SQ given liver impairment/cirrhosis Admission and Anticipated Discharge Date Admission Date: November 04, 2021 Supervising Physician Co-Signing Physician Notes PA Supervision Note: I did not personally see or examine the patient today, but I verified all mcnamara points of PRICILA Brooke's assessment and plan with the following exceptions/additions: None Subjective Patient evaluated this morning. Doing alright except for abdominal pain. RUQ pain on palpation but reported lower abdominal cramping/pain. Take hydrocodone at home as needed for pain. Chlorthalidone for blood pressure and denies needed for fluid balance. Stated lactulose used to work great, and she used to not be able to make it to the bathroom quick enough. States complaince with such at home, and was recently started on rifaximin outpatient with [facility]. Discussed with [place] Ulloa and rec's to continue and increase lactulose which was already performed. Patient denies fever/chills, chest pain or shortness of breath. Discussed would ideally like BMs 2-3x/daily. She has not moved her bowels for the last three days. Also checking KUB to eval for constipation. Eyes icteric. Discussed consulted GI inpatient to see if any need for inpatient ERCP for possible retained stone. She also notes her sister helps with medical care and she was recently enrolled in palliative medicine last week and had some therapy evaluations but that she has appointment in November with Hepatology in [place] and wanted to undergo liver transplant. Prior admission earlier this year in July with [facility]. No CTAP done on admission. Review of Systems Review of Systems: All systems reviewed & are unremarkable except as noted in HPI & below Physical Exam Physical Exam: General: WD female resting in bed, NAD but reporting lower abdominal pain HEENT: bilateral scleral icterus, pupils equal and reactive, mmm, trachea midline without devitation Resp: CTAB, diminished in the bases, on room air CV: RRR, +systolic murmur, no calf tenderness GI: +Distended, mild diffuse tenderness, worse suprapubic/LLQ and RUQ upon deeper palpation, voluntary guarding suprapubic/LLQ, no rigidity/erythema/warmth, +HSM Msk/neuro: moves all extremities, generalized weakness, no focal deficit, no slurred speech/facial droop Psych: alert to person/place/time Skin: warm ,dry Results & Data Results & Data ([facility]) Vital Signs (Past 12 Hours) Vital Signs Pulse Pulse Resp BP BP Pulse Ox 11/05/21 06:34 82 17 94 11/05/21 06:34 145/72 H 11/05/21 04:39 66 18 136/61 96 11/05/21 02:00 80 14 94 11/05/21 02:00 136/61 11/05/21 01:30 81 20 91 11/05/21 01:00 82 24 91 11/05/21 01:00 112/46 L 11/05/21 00:30 84 12 94 11/05/21 00:00 84 12 11/04/21 23:30 84 12 11/04/21 23:26 84 12 11/04/21 22:30 80 15 93 11/04/21 22:00 78 16 94 11/04/21 22:00 134/55 L 11/04/21 21:30 79 15 95 11/04/21 21:21 127/58 L 11/04/21 21:21 79 15 94 11/04/21 21:00 80 16 11/04/21 20:30 82 13 11/04/21 20:02 146/126 H 11/04/21 20:02 86 21 11/04/21 20:00 86 21 Laboratory Results 11/05/21 11/05/21 11/05/21 Range/Units 12:43 08:59 05:52 WBC (4.8-10.8) K/ul RBC (3.93-5.22) M/uL Hgb (12.0-16.0) g/dl Hct (34.1-44.9) % MCV (80.0-100.0) fL MCH (25.0-34.0) pg MCHC (32.0-36.0) g/dL RDW Std Deviation (36.4-46.3) fL RDW Coeff of Charlee (11.5-14.5) % Plt Count (130-400) K/uL MPV (9.4-12.3) fL Immature Gran % (Auto) % Neut % (Auto) % Lymph % (Auto) % [place] % (Auto) % Eos % (Auto) % Baso % (Auto) % Neut # (Auto) (1.4-6.5) K/uL Lymph # (Auto) (1.2-3.4) K/uL [place] # (Auto) (0.24-0.82) K/uL Eos # (Auto) (0-0.50) K/uL Baso # (Auto) (0-0.2) K/uL Immature Gran # (Auto) (0.00-0.02) K/uL Sodium (136-145) mmol/L Potassium (3.5-5.1) mmol/L Chloride (98-107) mmol/L Carbon Dioxide (21-32) mmol/L Anion Gap (3-11) BUN (6-23) mg/dl Creatinine (0.6-1.2) mg/dl Est Cr Clr Drug Dosing ml/min Est GFR ( Amer) ml/min Est GFR (Non-Af Amer) ml/min BUN/Creatinine Ratio (10-20) Glucose (70-99(Fasting)) mg/dl POC Glucose 169 H 106 H (70-99) mg/dl Calcium (8.5-10.1) mg/dl Magnesium (1.7-2.4) mg/dl Total Bilirubin (0.2-1.0) mg/dl AST (13-39) U/L ALT (7-52) U/L Alkaline Phosphatase (34-104) U/L Ammonia 121.0 H (18-72) umol/L Total Protein (6.0-8.3) gm/dl Albumin (3.4-5.0) gm/dl Globulin (2.5-4.0) gm/dl Albumin/Globulin Ratio (0.9-2) Urine WBC (Auto) (0-5) /hpf Urine RBC (Auto) (0-4) /hpf U Hyaline Cast (Auto) (0-5) /lpf U Epithel Cells (Auto) (0-5) /lpf Urine Bacteria (Auto) (Negative) Urine Crystals 11/05/21 11/05/21 11/04/21 Range/Units 05:50 05:50 20:48 WBC 5.83 (4.8-10.8) K/ul RBC 3.48 L (3.93-5.22) M/uL Hgb 10.8 L (12.0-16.0) g/dl Hct 31.6 L (34.1-44.9) % MCV 90.8 (80.0-100.0) fL MCH 31.0 (25.0-34.0) pg MCHC 34.2 (32.0-36.0) g/dL RDW Std Deviation 51.2 H (36.4-46.3) fL RDW Coeff of Charlee 15.4 H (11.5-14.5) % Plt Count 124 L (130-400) K/uL MPV 8.7 L (9.4-12.3) fL Immature Gran % (Auto) 0.3 % Neut % (Auto) 41.3 % Lymph % (Auto) 35.8 % [place] % (Auto) 16.0 % Eos % (Auto) 6.3 % Baso % (Auto) 0.3 % Neut # (Auto) 2.40 (1.4-6.5) K/uL Lymph # (Auto) 2.09 (1.2-3.4) K/uL [place] # (Auto) 0.93 H (0.24-0.82) K/uL Eos # (Auto) 0.37 (0-0.50) K/uL Baso # (Auto) 0.02 (0-0.2) K/uL Immature Gran # (Auto) 0.02 (0.00-0.02) K/uL Sodium 138 (136-145) mmol/L Potassium 3.4 L (3.5-5.1) mmol/L Chloride 105 (98-107) mmol/L Carbon Dioxide 29 (21-32) mmol/L Anion Gap 4 (3-11) BUN 11 (6-23) mg/dl Creatinine 1.31 H D (0.6-1.2) mg/dl Est Cr Clr Drug Dosing 39.3 ml/min Est GFR ( Amer) 48.4 ml/min Est GFR (Non-Af Amer) 41.7 ml/min BUN/Creatinine Ratio 8.4 L (10-20) Glucose 119 H (70-99(Fasting)) mg/dl POC Glucose 121 H (70-99) mg/dl Calcium 10.0 (8.5-10.1) mg/dl Magnesium 2.0 (1.7-2.4) mg/dl Total Bilirubin 4.7 H (0.2-1.0) mg/dl AST 73 H (13-39) U/L ALT 38 (7-52) U/L Alkaline Phosphatase 113 H (34-104) U/L Ammonia (18-72) umol/L Total Protein 5.1 L (6.0-8.3) gm/dl Albumin 3.3 L (3.4-5.0) gm/dl Globulin 1.8 L (2.5-4.0) gm/dl Albumin/Globulin Ratio 1.8 (0.9-2) Urine WBC (Auto) (0-5) /hpf Urine RBC (Auto) (0-4) /hpf U Hyaline Cast (Auto) (0-5) /lpf U Epithel Cells (Auto) (0-5) /lpf Urine Bacteria (Auto) (Negative) Urine Crystals 11/04/21 11/04/21 Range/Units 19:50 14:00 WBC (4.8-10.8) K/ul RBC (3.93-5.22) M/uL Hgb (12.0-16.0) g/dl Hct (34.1-44.9) % MCV (80.0-100.0) fL MCH (25.0-34.0) pg MCHC (32.0-36.0) g/dL RDW Std Deviation (36.4-46.3) fL RDW Coeff of Charlee (11.5-14.5) % Plt Count (130-400) K/uL MPV (9.4-12.3) fL Immature Gran % (Auto) % Neut % (Auto) % Lymph % (Auto) % [place] % (Auto) % Eos % (Auto) % Baso % (Auto) % Neut # (Auto) (1.4-6.5) K/uL Lymph # (Auto) (1.2-3.4) K/uL [place] # (Auto) (0.24-0.82) K/uL Eos # (Auto) (0-0.50) K/uL Baso # (Auto) (0-0.2) K/uL Immature Gran # (Auto) (0.00-0.02) K/uL Sodium (136-145) mmol/L Potassium (3.5-5.1) mmol/L Chloride (98-107) mmol/L Carbon Dioxide (21-32) mmol/L Anion Gap (3-11) BUN (6-23) mg/dl Creatinine (0.6-1.2) mg/dl Est Cr Clr Drug Dosing ml/min Est GFR ( Amer) ml/min Est GFR (Non-Af Amer) ml/min BUN/Creatinine Ratio (10-20) Glucose (70-99(Fasting)) mg/dl POC Glucose 89 (70-99) mg/dl Calcium (8.5-10.1) mg/dl Magnesium (1.7-2.4) mg/dl Total Bilirubin (0.2-1.0) mg/dl AST (13-39) U/L ALT (7-52) U/L Alkaline Phosphatase (34-104) U/L Ammonia (18-72) umol/L Total Protein (6.0-8.3) gm/dl Albumin (3.4-5.0) gm/dl Globulin (2.5-4.0) gm/dl Albumin/Globulin Ratio (0.9-2) Urine WBC (Auto) >30 H (0-5) /hpf Urine RBC (Auto) 0-4 (0-4) /hpf U Hyaline Cast (Auto) 1-5 (0-5) /lpf U Epithel Cells (Auto) >30 H (0-5) /lpf Urine Bacteria (Auto) Negative (Negative) Urine Crystals Not Reportable Diagnostic Findings Renal Ultrasound 11/04/21 18:09 US renal/blad retro comp CLINICAL HISTORY: ?pyelo TECHNIQUE: Multiple sonographic real-time images of the kidneys and bladder were obtained. COMPARISON: Comparison is made to CT abdomen pelvis 10/22/2021 FINDINGS: The right kidney measures 10.2 cm in length, and the left kidney measures 10.9 cm in length. The right kidney is normal in size, contour, cortical thickness, and echogenicity. No hydronephrosis is identified. No renal lesion is identified. No perinephric fluid collection is seen. The left kidney is normal in size, contour, cortical thickness and echogenicity. No hydronephrosis is identified. No renal lesion is identified. No perinephric fluid collection is seen. The bladder is decompressed limiting visualization. No large intraluminal mass is seen. Incidental note is made of splenomegaly, the spleen measures 16.1 cm in length. IMPRESSION: 1. No evidence of hydronephrosis. Of note, ultrasound is not a sensitive modality for pyelonephritis. If there is concern, CT abdomen with contrast can be performed, correlation with urinalysis and physical exam is recommended. 2. Incidental note is made of splenomegaly. ACT 112: Negative or not required by law. Electronically signed by: Kiel Cross M.D. 11/05/2021 8:15 AM KUB X-Ray 11/05/21 11:50 KUB HISTORY: assess stool burden COMPARISON: Abdomen and pelvis CT 10/22/2021. KUB 06/12/2016. FINDINGS: The bowel gas pattern is unremarkable. There are no dilated loops of small bowel to suggest an obstruction. No renal calculi. No ureteral calculi. No pneumoperitoneum or pneumatosis. Moderate amount of well-formed stool within the distal colon and rectum. Calcifications in the deep pelvis consistent with phleboliths. Prior cholecystectomy. The lung bases appear clear. IMPRESSION: 1. Moderate well-formed stool seen throughout the colon and rectum. 2. No evidence for bowel obstruction. 3. Cholecystectomy. ACT 112: Negative or not required by law. Electronically signed by: Ivan Veronica M.D. 11/05/2021 2:53 PM PG Care Time/CCT Total # of Minutes Spent Total Time Spent with Patient: Total time spent is greater than 50% in coordination of care (as documented) at patient's floor/unit and/or counseling patient: Coding Level of Care Code 71485 Subseq Hosp Care Lvl 3 Diagnoses Abdominal pain R10.9 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 Hypercalcemia E83.52 Acute UTI N39.0 Anxiety and depression F41.9; F32.9 Chronic diarrhea K52.9 Elevated bilirubin R17 Sensorineural hearing loss (SNHL) of both ears H90.3 Hypomagnesemia E83.42 Hypokalemia E87.6 Diabetes mellitus, type 2 E11.9 Moeller's esophagus with esophagitis K22.70; K20.9 Hypothyroidism E03.9
--- NOTE | 2021-11-05 08:17 | Ultrasound Report ---
US renal/blad retro comp CLINICAL HISTORY: ?pyelo TECHNIQUE: Multiple sonographic real-time images of the kidneys and bladder were obtained. COMPARISON: Comparison is made to CT abdomen pelvis 10/22/2021 FINDINGS: The right kidney measures 10.2 cm in length, and the left kidney measures 10.9 cm in length. The right kidney is normal in size, contour, cortical thickness, and echogenicity. No hydronephrosis is identified. No renal lesion is identified. No perinephric fluid collection is seen. The left kidney is normal in size, contour, cortical thickness and echogenicity. No hydronephrosis i s identified. No renal lesion is identified. No perinephric fluid collection is seen. The bladder is decompressed limiting visualization. No large intraluminal mass is seen. Incidental note is made of splenomegaly, the spleen measures 16.1 cm in length. IMPRESSION: 1. No evidence of hydronephrosis. Of note, ultrasound is not a sensitive modality for pyelonephritis . If there is concern, CT abdomen with contrast can be performed, correlation with urinalysis and phy sical exam is recommended. 2. Incidental note is made of splenomegaly. ACT 112: Negative or not required by law. Electronically signed by: Kiel Cross M.D. 11/05/2021 8:15 AM
[2021-11-05] MEDS: INSULIN ASPART PER UNIT SC SCH ×4 (09:26→21:13)
[2021-11-05] MEDS: LACTULOSE SYRUP 20 GM/30 ML UDC PO SCH ×3 (09:35→20:57)
[2021-11-05] MEDS: rifAXIMin 550 MG TABLET PO SCH ×2 (09:36→20:58)
[2021-11-05] MEDS: PROPRANOLOL HCL 20 MG TAB PO SCH (09:36)
[2021-11-05] MEDS: MAGNESIUM OXIDE 400 MG TAB PO SCH ×2 (09:36→20:58)
[2021-11-05] MEDS: PARoxetine HCL 20 MG TAB PO SCH (09:36)
[2021-11-05] MEDS: LANTUS PER UNIT CHARGE SQ SCH ×2 (09:41→21:12)
[2021-11-05] MEDS ORDERED: CHLORTHALIDONE 25 MG TAB PO SCH (10:45)
[2021-11-05] MEDS: POTASSIUM CHLORIDE CRTAB 20 MEQ TABCR PO SCH ×2 (10:57→13:28)
--- NOTE | 2021-11-05 11:39 | Gastrointestinal Consultation ---
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 ammonia was elevated in the setting of no bowel movements in 3 days. Suspect this is cause of her current episode. She has history of medical non compliance but tells me she has been taking lactulose as outpatient. GI consulted for elevated alk phos and queston of need for ERCP. - Discussed case with Dr. Garcia who advised on plan. - agree with continue lactulose 20gm TID and xifaxan 550mg BID. I suspect ammonia is up and she had confusion/weakness due to no bowel movements in 3 days. She may require a higher dose upon discharge until she has 2-3 bowel movements daily. - can check KUB to assess stool burden given complaints of abdominal pain. if significant stool burden, can do a prep for clean out. - Had discussed case with [facility] who does ERCPs and they did not feel that one was needed at this time and felt LFTs were related to her cirrhosis. Supervising Physician Co-Signing Physician Notes I personally evaluated the patient and agree with the findings as documented by Efraín Plascencia, DOMENIC Exam: Constitutional: WD/WN, vitals as above General: EOM intact bilaterally Neck: normal visual inspection Respiratory: normal respiratory effort, lungs clear to auscultation Cardiovascular: RRR, no murmur, no edema Gastrointestinal: abdomennormal to inspection, nondistended, soft, nontender, no hepatosplenomegaly Musculoskeletal: no cyanosis, head normal to inspection Skin: no rashes, warm and dry Neurologic: moves all extremities, no asterixis Psychiatric: alert, cooperative euthymic affect History of Present Illness Reason for Consultation: elevated alk phos Requesting Physician: Vivian Brooke PA-C Attending Physician: Kristel Montiel MD History of Present Illness Patient is a 66 year old female with history of REBOLLAR cirrhosis who presented to the ED after being at a doctors appt and complaining of confusion/weakness and having a syncopal episode. Ammonia was thought to be high so transferred here. She was recently inpatient earlier this month and had similar issues in the setting of not taking her lactulose. She was admitted with UTI. She tells me she has been using her lactulose as prescribed at home but admits she has not moved her bowels in over 3 days. ammonia today was 121. She tells me she also admits to diffuse abdominal pain that has also been ongoing for "a long time". Can be 10/10 at times. Also admits to some nausea and dry heaves. Lactulose TID and xifaxan have been started on this admission. As an outpatient she typically follows with Dr García at [facility] for her cirrhosis. There was a question of possibly needing an ERCP given her elevated alk phos on this admission, but case was reviewed with [facility] who performs ERCP and it was not felt necessary at this time. LFTs seem to be more related to cirrhosis. Allergies Allergy/AdvReac Type Severity Reaction Status Date / Time bee venom protein (honey bee) Allergy Severe Anaphylaxis Verified 11/04/21 16:01 Influenza Virus Vaccines Allergy Severe Anaphylaxis Verified 11/04/21 16:01 tetracycline AdvReac Severe Severe Verified 11/04/21 16:01 stomach pains Home Medications Medication Instructions Recorded Confirmed Type paroxetine HCl 20 mg tablet 20 mg PO QAM 04/17/19 11/04/21 History potassium chloride 20 mEq 20 meq PO BID #60 tabs 09/23/20 11/04/21 Rx tablet,extended release(part/cryst) (Klor-Con M) valacyclovir 1 gram tablet 1 mg PO UD PRN Cold Sores 04/16/21 11/04/21 History lorazepam 1 mg tablet 1 mg PO TID PRN Anxiety 05/29/21 11/04/21 History srzistii-wpp-hqfha ac 400 1 tab PO QAM 07/15/21 11/04/21 History mcg-calcium carb 500 mg-vit K1 20 mcg tablet (Women's 50 Plus Multivitamin) zolpidem 5 mg tablet 5 mg PO HS PRN insomnia #0 tabs 07/20/21 11/04/21 Rx chlorthalidone 25 mg tablet 25 mg PO QAM 09/09/21 11/04/21 History dulaglutide 3 mg/0.5 mL 3 mg subcut WK 09/09/21 11/04/21 History subcutaneous pen injector levothyroxine 112 mcg tablet 112 mcg PO Q2D 09/09/21 11/04/21 History phenazopyridine 200 mg tablet 200 mg PO UD PRN bladder pain 09/09/21 11/04/21 History (Pyridium) cholestyramine-aspartame 4 gram 4 g PO BID PRN .bloating 10/21/21 11/04/21 History oral powder for susp in a packet (Cholestyramine Light) tramadol 50 mg tablet 50 mg PO DAILY PRN Pain 10/21/21 11/04/21 History lactulose 20 gram/30 mL oral 20 g (30 mL) PO BID #1,200 mL 10/24/21 11/04/21 Rx solution magnesium oxide 400 mg PO BID #60 tabs 10/24/21 11/04/21 Rx oxycodone 5 mg tablet 5 mg PO Q6H PRN pain #10 tabs 10/24/21 11/04/21 Rx levothyroxine 100 mcg tablet 100 mcg PO Q2D #45 tabs 10/27/21 11/04/21 Rx hyoscyamine sulfate 0.125 mg 0.125 mg PO QID 11/04/21 11/04/21 History disintegrating tablet omeprazole 40 mg capsule,delayed 40 mg PO DAILY 11/04/21 11/04/21 History release propranolol 80 mg capsule,24 80 mg PO BID 11/04/21 11/04/21 History hr,extended release Patient History Medical History (Updated 11/04/21 @ 16:01 by Fredy Louis MD) Anemia HX Arthritis Moeller's esophagus with esophagitis Chronic diarrhea SOMETIMES Depression Diabetes mellitus, type 2 Diverticulitis of sigmoid colon Diverticulosis GERD (gastroesophageal reflux disease) GI bleed RECENT HOSPITALIZED - PT DENIES HX GI BLEED Heel spur B/L feet Hiatal hernia History of colon polyps BENIGN History of fractured vertebra CURRENT, HX FALL JULY 2021 - FELL OF THE TOILET - NO INTERVENTION AT PRESENT/ [facility] FOR TO DISCUSS TX OPTIONS - POTENTIAL BACK BRACE History of kidney stones Hyperlipidemia Hypertension NO CURRENT MEDS 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) Spleen enlarged MONITORS - PT REPORTS FROM THE REBOLLAR Stucco keratoses Temporomandibular joint disorder NO LOCKING/WEARS LOOM FIXER Thyroid disease UTI (urinary tract infection) HX, JULY 2021 -HOSPITALIZED FOR , NOW RESOLVED DURING TESTING FOUND 2 LUMPS IN INTESTINES...REASON FOR UPCOMING COLONOSCOPY Surgical History H/O thumb surgery RT/LEFT JOINT REPAIR H/O total hysterectomy History of appendectomy History of arthroscopy of knee Left Knee - meniscus/cartilage History of colonoscopy History of cystoscopy History of esophagogastroduodenoscopy (EGD) History of tonsillectomy and adenoidectomy History of tooth extraction Hx of cholecystectomy Family History Brother Coronary heart disease Heart disease Mother Family history of diabetes mellitus Hypertension Heart disease Sister Family history of diabetes mellitus Son Family history of diabetes mellitus Father Family hx of colon cancer Hearing loss Hypertension Cancer Heart disease Grandfather (Maternal) Family hx of colon cancer Other No family history of adverse response to anesthesia No family history of bleeding disorder Social History Smoking Status: Never smoker Second Hand Exposure: No; Hx Alcohol Use: No Hx Substance Use: No Preferred Language: Pashto Communication Ability: Effective Drill Presser Required: No Beliefs That Will Affect Care: None marital status: Current Living Situation: Spouse Current Living Situation Comment: and sister current occupational status: employed and retired How many Children do You have: 0 Feels Safe at Home: Yes Assistive Devices: Cane, Raised Toilet Seat and Walker Review of Systems Review of Systems: All systems reviewed & are unremarkable except as noted in HPI & below Physical Exam Constitutional: WD/WN, vitals as above Eyes: + anicteric sclerae and PERRL Respiratory: normal respiratory effort, lungs clear to auscultation Cardiovascular: RRR, no murmur, no edema Gastrointestinal (Abdomen): mild diffuse tenderness, soft, normal bowel sounds, no guarding. Skin: no rashes, warm and dry Psychiatric: Orientation: alert Results & Data ([facility]) Vital Signs (Past 12 Hours) Vital Signs Pulse Pulse Resp BP BP Pulse Ox O2 Del Method 11/05/21 10:30 16 11/05/21 10:00 80 23 96 Room Air 11/05/21 09:30 81 15 93 Room Air 11/05/21 09:00 80 19 99 Room Air 11/05/21 09:00 139/76 11/05/21 08:30 77 15 97 Nasal Cannula 11/05/21 08:00 76 18 97 Nasal Cannula 11/05/21 08:00 139/64 11/05/21 07:30 77 14 95 Nasal Cannula 11/05/21 07:00 76 15 91 Room Air 11/05/21 07:00 135/73 11/05/21 06:34 82 17 94 11/05/21 06:34 145/72 H 11/05/21 04:39 66 18 136/61 96 11/05/21 02:00 80 14 94 11/05/21 02:00 136/61 11/05/21 01:30 81 20 91 11/05/21 01:00 82 24 91 11/05/21 01:00 112/46 L 11/05/21 00:30 84 12 94 11/05/21 00:00 84 12 O2 Flow Rate 11/05/21 10:30 11/05/21 10:00 11/05/21 09:30 11/05/21 09:00 11/05/21 09:00 11/05/21 08:30 2 11/05/21 08:00 2 11/05/21 08:00 11/05/21 07:30 2 11/05/21 07:00 11/05/21 07:00 11/05/21 06:34 11/05/21 06:34 11/05/21 04:39 11/05/21 02:00 11/05/21 02:00 11/05/21 01:30 11/05/21 01:00 11/05/21 01:00 11/05/21 00:30 11/05/21 00:00 PG Care Time/CCT Total # of Minutes Spent Total Time Spent with Patient: Total time spent is greater than 50% in coordination of care (as documented) at patient's floor/unit and/or counseling patient: Coding Level of Care Code 55262 Initial Inpt Care Lvl 3 Diagnoses Confusion R41.0 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
[2021-11-05] MEDS ORDERED: HYDROCODONE/ACETAMOPHEN 5/325MG TAB PO PRN (12:16)
[2021-11-05] MEDS: traMADol HCL 50 MG TABLET PO PRN (13:28)
--- NOTE | 2021-11-05 14:55 | XRay Report ---
KUB HISTORY: assess stool burden COMPARISON: Abdomen and pelvis CT 10/22/2021. KUB 06/12/2016. FINDINGS: The bowel gas pattern is unremarkable. There are no dilated loops of small bowel to suggest an obstruction. No renal calculi. No ureteral calculi. No pneumoperitoneum or pneumatosis. Moderate amount of well-formed stool within the distal colon and rectum. Calcifications in the deep pelvis co nsistent with phleboliths. Prior cholecystectomy. The lung bases appear clear. IMPRESSION: 1. Moderate well-formed stool seen throughout the colon and rectum. 2. No evidence for bowel obstruction. 3. Cholecystectomy. ACT 112: Negative or not required by law. Electronically signed by: Ivan Veronica M.D. 11/05/2021 2:53 PM
[2021-11-05] MEDS ORDERED: LACTULOSE 200GM/700ML WTR ENEMA PR ONE (15:00)
[2021-11-05] MEDS ORDERED: OPTIRAY 300 500mL IV ONE (15:15)
[2021-11-05] MEDS ORDERED: PANTOprazole 40 MG TAB PO ONE (15:20)
[2021-11-05] MEDS ORDERED: SODIUM CHLORIDE 0.9% 500 ML IV SCH (15:30)
--- NOTE | 2021-11-05 15:42 | CT Scan Report ---
CT SCAN OF THE ABDOMEN AND PELVIS WITH IV CONTRAST CLINICAL HISTORY: Generalized abdominal pain. COMPARISON STUDY: Abdominal CT dated 10/22/2021. TECHNIQUE: Following the IV administration of 96 cc of Optiray 300, CT scan of the abdomen and pelvi s is performed from the lung bases to the proximal femora. Images are reviewed in the axial, sagittal , and coronal planes. IV contrast was administered without complication. A dose lowering technique wa s utilized adhering to the principles of ALARA. CT DOSE: 454.29 mGy.cm FINDINGS: Lung bases: The heart is enlarged and without pericardial effusion. The lung bases are clear noting b ibasilar scarring/atelectasis. There is a small hiatal hernia. Esophageal varices are noted. Liver: The contrast-enhanced liver is cirrhotic in morphology and heterogeneous in attenuation. Hepat ic attenuation is diminished suggesting steatosis. There is nodularity of the hepatic surface contour . There is mild central intrahepatic biliary ductal dilatation. The hepatic veins and portal veins ar e patent. Gallbladder: Surgically absent noting clips in the gallbladder fossa. The common bile duct is dilated , measuring up to 11 mm in diameter. This is similar to previous. Spleen: The spleen is enlarged, measuring 16.5 cm in length. There are large perigastric and perisple franco collaterals. Pancreas: Unremarkable. Adrenal glands: Unremarkable. Kidneys: The contrast enhanced kidneys are normal in size and without hydronephrosis. The kidneys enh ance symmetrically. Abdominal vasculature: The abdominal aorta is normal in course and caliber noting mild atheroscleroti c calcification. Bowel: There is advanced colonic diverticulosis without CT evidence of acute diverticulitis. Liquid s tool is noted in the right colon. No bowel obstruction is seen. There are large duodenal diverticula. The appendix is well-visualized and normal. Peritoneum: There is no intraperitoneal free air or abdominal ascites. Lymphadenopathy: None. Pelvic viscera: The bladder is distended but otherwise normal in appearance. The uterus is surgically absent. No adnexal lesion is seen. Skeletal structures: The skeletal structures are osteopenic No lytic or blastic lesions are seen. A s ubacute superior endplate compression fracture of L4 is again noted. There is mild lumbosacral spondy losis. IMPRESSION: 1. Cirrhotic liver. 2. Splenomegaly, esophageal varices, and upper abdominal collaterals indicate portal hypertension. 3. Liquid stool is noted in the right colon. Correlate clinically for evidence of a diarrheal illness . 4. Advanced colonic diverticulosis without CT evidence of acute diverticulitis. 5. A subacute superior endplate compression fracture of L4 is again noted. 6. Additional findings as above. ACT 112: Negative or not required by law. Electronically signed by: Parveen Candelaria M.D. 11/05/2021 3:39 PM
[2021-11-05] MEDS ORDERED: cefTRIAXone SODIUM 1,000 MG in DEXTROSE 5% 50 ML IV SCH (16:00)
[2021-11-05] MEDS: ENOXAPARIN INJ 40 MG/0.4 ML SYR SQ SCH (18:23)
[2021-11-05] MEDS: oxyCODONE HCL IR 5 MG TAB (IMMEDIATE RELEASE) PO PRN (20:55)
[2021-11-06] MEDS ORDERED: LEVOTHYROXINE SODIUM 112 MCG TABLET PO SCH (06:30)
--- NOTE | 2021-11-06 07:33 | Hospitalist Progress Note ---
Date of Service November 06, 2021 Assessment & Plan (1) Abdominal pain: Plan: Admitted with weakness, confusion, abdominal pain-- likely from hyperammonemia Suspected related to UTI on admission (urine cx pending), however was just admitted 10/22-10/24 for liver cirrhosis and shaking/headache/confusion with elevated ammonia level in the setting of not using her lactulose as an outpatient as she was having cramping and diarrhea with the lactulose Patient reported no BM in prior 3 days (prior noncompliance but reported she has been) Prior admit w/ reports not using due to diarrhea Ammonia was 128--> 62 on repeat and initially felt not cause of AMS/confusion however repeat was 121 on 11/06 and moderate stool through colon +BM x 3 reported since admission (1 last evening 11/05, 2 this morning) after lactulose enema 11/05 and continues on increased lactulose 20mg TID for now (was on 20mg BID) Ammonia 121--> 69 on repeat Continue rifaximin 550mg BID as started outpatient [employer] LFTs elevations reviewed by GI, felt stable. [place] diarrheal/liquid stool in right colon from overflow from not moving her bowels for several days. No need for ERCP AST 73--> 63, ALP 113--> 109, however TB 5.3 Stool PCR given prior admits multiple liquid stool/diarrheal illness. Once able to collect On ceftriaxone for suspected UTI on admit --> urine cx negative, abx discontinued Afebrile Electrolyte derangements Also suspect hypercalcemia contributing to her constipation Ca 9.9, albumin 3.1, corrected 10.6. Checked ionized ca, slightly elevated to 1.36 Ordered additional 500cc IVF and her chlorthalidone 11/05 and Ca improved Repeat today, Cr improved from 1.33--> 0.99 Renal US without evidence for stones/obstruction Vit D/PTH/calcium leveles similar to prior admits. Sent out parathyroid related peptide for further eval Mag again low this morning 1.4 --> IV replacement ordered and prior ordered mag oxide BID discontinued. -->If need for PO supplementation would use slow mag PO at d/c. Monitor level in AM Continued to monitor labs/electrolyte replacement as needed--> if continues to move bowels/do well, possible d/c tomorrow. Messaged Africa Ulloa PA-C from [facility] GI for close f/u at discharge (messaged her about patient being enrolled in hospice as well, would make in eligible for transplant she is interested in) (2) 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: Plan: as above, outpt f/u Dr García/Africa Ulloa and [facility] (3) Hypercalcemia: Plan: on admit, Ca 10.2 appears has had similar elevations in the past (hx calcium and uric acid based kidney stones) per Dr Chau's notes hx mild hypercalcemia while on thiazide diuretic, normal Vit D, PTH incompletely suppressed. Advised 2.5-3L free water intake/day ?if contributing to constipation Vit D/PTH/ca levels similar to past. Sent parathyroid related peptide for further eval but rec'd f/u nephrology outpatient Corrected Ca for albumin 10.6 today did resume chlorthalidone AM 11/05, given additional dose with IVF to help improve calcium levels and they have been improved. Repeat for today given ionized yola still slightly elevated Monitor levels in AM (4) Acute UTI: Plan: suspected on admit, but more likely related to elevated ammonia continues on ceftriaxone empirically, monitor urine cx denies dysuria symptoms Renal US ordered for eval pyelonephritis -- no evidence CTAP ordered for eval for above DISCONTINUED ABX, AFEBRILE, NO URINARY SX Prior report possible underlying cystitis. monitor off abx and with bowels moving (5) Anxiety and depression: Plan: continue lorazepam -- cautious given confusion on admission (6) Chronic diarrhea: Plan: prior reports, now w/ constipation ?medication non-compliance had been sent w/ [facility] in July, no longer taking? check stool sample once going given prior +cdiff Moving bowels, liquid stool felt related to overflow per GI Stool PCR when sample able to be collected (7) Elevated bilirubin: Plan: improving initially but elevated at 5. icterus improved and other LFTs imprvoed sent for CMV/EBV for completeness continue rifaximin, lactulose as outlined monitor labs in AM (8) Sensorineural hearing loss (SNHL) of both ears: (9) Hypomagnesemia: Plan: 1.5 on admit, IV replacment ordered repeat wnl 2.0 but had been on PO mag oxide BID sent earlier this month which had been continued diarrhea for BMs as above, discontinued PO mag oxide this morning however mag again low 1.4 and additional IV replacement ordered Monitor level in am (10) Hypokalemia: Plan: low, replacement ordered and normal on repeat, likely 2nd to chlorthalidone use given additional PO replacement with her chlorthalidone today BMP in AM (11) Diabetes mellitus, type 2: Plan: Last A1c 6.4 continue glargine 7u BID, ISS while inpatient BSGs acceptable (12) Moeller's esophagus with esophagitis: Plan: hx of such on PPI once daily outpatient, Protonix while inpatient ?Protonix induced hypomagnesemia mag replacement as above no reflux symptoms (13) Hypothyroidism: Plan: TSH wnl remains on levothyroxine 100/112mcg alternating doses (14) History of fractured vertebra: Plan: hx of such, fell off toilet in July 2021, sustained compression fracture of L4 again noted was to f/u orthopedics/brace but no brace due to abd pain patient states she would like to have if able consulted orthotics while inpatient PT/OT consulted Plan DVT prophylaxis: Heparin SQ ordered, switched to Lovenox SQ given liver impairment/cirrhosis continued inpatient stay if continuing to move her bowels, PT/OT evals ok, plan for d/c tomorrow with [facility] follow up Admission and Anticipated Discharge Date Admission Date: November 04, 2021 Supervising Physician Co-Signing Physician Notes PA Supervision Note: I did not personally see or examine the patient today, but I verified all mcnamara points of PRICILA Brooke's assessment and plan with the following exceptions/additions: None Subjective Evaluated this afternoon. One BM last evening, two this morning reported. She notes the lactulose enema effective but would like to hold off for now. Discussed if continuing to move bowels on increased lactulose will avoid enema at this time but may give tomorrow if not continuing to move. Passing lots of gas. Asked about a pill recently started by GI outpatient -- reviewed rifaximin and that it has also been continued and should help with her cirrhosis. No further urinary symptoms and discussed could have been from constipation. She does endorse falling off toilet earlier in the year when asked about a lumbar fracture and orthopedics follow up but that no one followed up. Initially she does endorse they didn't use a brace because of abdominal pain but no abdominal pain today and will see if we are able to provide. No fever/chills, chest pain or shortness of breath. Monitoring overnight but if continued improvements will plan for discharge tomorrow with outpatient GI followup. Will message Gianna Laila to allow for close f/u after discharge. Review of Systems Review of Systems: All systems reviewed & are unremarkable except as noted in HPI & below Physical Exam Physical Exam: General: WD female resting in bed, looks much better, NAD HEENT: bilateral scleral icterus IMPROVED, pupils equal and reactive, mmm, trac hea midline without deviation Resp: CTAB, less diminished in the bases, on room air 96% CV: RRR, +faint systolic murmur, no calf tenderness GI: LESS distended, SOFT, NONTENDER, no guarding/rigidity MSK/Neuro: lumbar spine tenderness to palpation (prior fx, reported falling off toilet in July), moves all extremities, no focal deficit Psych: alert to person/place/time Skin: warm ,dry Results & Data Results & Data ([facility]) Vital Signs (Past 12 Hours) Vital Signs Temp Pulse Pulse Resp BP Pulse Ox O2 Del Method 11/06/21 06:14 78 11/06/21 03:29 37 C 82 16 112/64 92 Room Air 11/06/21 02:50 90 11/06/21 00:00 36.9 C 87 18 102/63 92 Room Air Laboratory Results 11/06/21 11/06/21 11/06/21 Range/Units 11:47 07:42 07:22 WBC (4.8-10.8) K/ul RBC (3.93-5.22) M/uL Hgb (12.0-16.0) g/dl Hct (34.1-44.9) % MCV (80.0-100.0) fL MCH (25.0-34.0) pg MCHC (32.0-36.0) g/dL RDW Std Deviation (36.4-46.3) fL RDW Coeff of Charlee (11.5-14.5) % Plt Count (130-400) K/uL MPV (9.4-12.3) fL Immature Gran % (Auto) % Neut % (Auto) % Lymph % (Auto) % Prentiss % (Auto) % Eos % (Auto) % Baso % (Auto) % Neut # (Auto) (1.4-6.5) K/uL Lymph # (Auto) (1.2-3.4) K/uL Prentiss # (Auto) (0.24-0.82) K/uL Eos # (Auto) (0-0.50) K/uL Baso # (Auto) (0-0.2) K/uL Immature Gran # (Auto) (0.00-0.02) K/uL PT (9.0-12.0) Seconds INR (0.9-1.1) Sodium (136-145) mmol/L Potassium (3.5-5.1) mmol/L Chloride (98-107) mmol/L Carbon Dioxide (21-32) mmol/L Anion Gap (3-11) BUN (6-23) mg/dl Creatinine (0.6-1.2) mg/dl Est Cr Clr Drug Dosing ml/min Est GFR ( Amer) ml/min Est GFR (Non-Af Amer) ml/min BUN/Creatinine Ratio (10-20) Glucose (70-99(Fasting)) mg/dl POC Glucose 221 H 124 H (70-99) mg/dl Calcium (8.5-10.1) mg/dl Ionized Calcium (1.12-1.32) mmol/L Magnesium (1.7-2.4) mg/dl Total Bilirubin (0.2-1.0) mg/dl Direct Bilirubin (0-0.2) mg/dl AST (13-39) U/L ALT (7-52) U/L Alkaline Phosphatase (34-104) U/L Ammonia (18-72) umol/L Total Protein (6.0-8.3) gm/dl Albumin (3.4-5.0) gm/dl 25-OH Vitamin D Total (30-100) ng/ml PTH Intact (12.0-88.0) pg/ml PTH Related Protein CMV IgM Ab CMV IgG Ab/TORCH EBV Capsid Ag IgG Ab Pending EBV Capsid Ag IgM Ab Pending EBV Nuclear Antigen Ab Pending EBV Antibody Interp Pending 11/06/21 11/06/21 11/06/21 Range/Units 07:22 07:22 07:22 WBC (4.8-10.8) K/ul RBC (3.93-5.22) M/uL Hgb (12.0-16.0) g/dl Hct (34.1-44.9) % MCV (80.0-100.0) fL MCH (25.0-34.0) pg MCHC (32.0-36.0) g/dL RDW Std Deviation (36.4-46.3) fL RDW Coeff of Charlee (11.5-14.5) % Plt Count (130-400) K/uL MPV (9.4-12.3) fL Immature Gran % (Auto) % Neut % (Auto) % Lymph % (Auto) % Prentiss % (Auto) % Eos % (Auto) % Baso % (Auto) % Neut # (Auto) (1.4-6.5) K/uL Lymph # (Auto) (1.2-3.4) K/uL Prentiss # (Auto) (0.24-0.82) K/uL Eos # (Auto) (0-0.50) K/uL Baso # (Auto) (0-0.2) K/uL Immature Gran # (Auto) (0.00-0.02) K/uL PT (9.0-12.0) Seconds INR (0.9-1.1) Sodium (136-145) mmol/L Potassium (3.5-5.1) mmol/L Chloride (98-107) mmol/L Carbon Dioxide (21-32) mmol/L Anion Gap (3-11) BUN (6-23) mg/dl Creatinine (0.6-1.2) mg/dl Est Cr Clr Drug Dosing ml/min Est GFR ( Amer) ml/min Est GFR (Non-Af Amer) ml/min BUN/Creatinine Ratio (10-20) Glucose (70-99(Fasting)) mg/dl POC Glucose (70-99) mg/dl Calcium (8.5-10.1) mg/dl Ionized Calcium 1.36 H (1.12-1.32) mmol/L Magnesium (1.7-2.4) mg/dl Total Bilirubin (0.2-1.0) mg/dl Direct Bilirubin (0-0.2) mg/dl AST (13-39) U/L ALT (7-52) U/L Alkaline Phosphatase (34-104) U/L Ammonia (18-72) umol/L Total Protein (6.0-8.3) gm/dl Albumin (3.4-5.0) gm/dl 25-OH Vitamin D Total (30-100) ng/ml PTH Intact 25.6 (12.0-88.0) pg/ml PTH Related Protein Pending CMV IgM Ab Pending CMV IgG Ab/TORCH Pending EBV Capsid Ag IgG Ab EBV Capsid Ag IgM Ab EBV Nuclear Antigen Ab EBV Antibody Interp 11/06/21 11/06/21 11/06/21 Range/Units 07:22 07:22 07:22 WBC 4.59 L (4.8-10.8) K/ul RBC 3.44 L (3.93-5.22) M/uL Hgb 10.8 L (12.0-16.0) g/dl Hct 31.4 L (34.1-44.9) % MCV 91.3 (80.0-100.0) fL MCH 31.4 (25.0-34.0) pg MCHC 34.4 (32.0-36.0) g/dL RDW Std Deviation 51.6 H (36.4-46.3) fL RDW Coeff of Charlee 15.7 H (11.5-14.5) % Plt Count 114 L (130-400) K/uL MPV 8.7 L (9.4-12.3) fL Immature Gran % (Auto) 0.2 % Neut % (Auto) 52.9 % Lymph % (Auto) 22.7 % Prentiss % (Auto) 16.8 % Eos % (Auto) 7.0 % Baso % (Auto) 0.4 % Neut # (Auto) 2.43 (1.4-6.5) K/uL Lymph # (Auto) 1.04 L (1.2-3.4) K/uL Prentiss # (Auto) 0.77 (0.24-0.82) K/uL Eos # (Auto) 0.32 (0-0.50) K/uL Baso # (Auto) 0.02 (0-0.2) K/uL Immature Gran # (Auto) 0.01 (0.00-0.02) K/uL PT 14.2 H (9.0-12.0) Seconds INR 1.4 H (0.9-1.1) Sodium 138 (136-145) mmol/L Potassium 3.5 (3.5-5.1) mmol/L Chloride 106 (98-107) mmol/L Carbon Dioxide 27 (21-32) mmol/L Anion Gap 5 (3-11) BUN 14 (6-23) mg/dl Creatinine 0.99 D (0.6-1.2) mg/dl Est Cr Clr Drug Dosing 52.0 ml/min Est GFR ( Amer) 67.9 ml/min Est GFR (Non-Af Amer) 58.6 ml/min BUN/Creatinine Ratio 14.1 (10-20) Glucose 119 H (70-99(Fasting)) mg/dl POC Glucose (70-99) mg/dl Calcium 9.9 (8.5-10.1) mg/dl Ionized Calcium (1.12-1.32) mmol/L Magnesium 1.4 L (1.7-2.4) mg/dl Total Bilirubin 5.3 H (0.2-1.0) mg/dl Direct Bilirubin 1.2 H (0-0.2) mg/dl AST 63 H (13-39) U/L ALT 35 (7-52) U/L Alkaline Phosphatase 109 H (34-104) U/L Ammonia (18-72) umol/L Total Protein 5.0 L (6.0-8.3) gm/dl Albumin 3.1 L (3.4-5.0) gm/dl 25-OH Vitamin D Total (30-100) ng/ml PTH Intact (12.0-88.0) pg/ml PTH Related Protein CMV IgM Ab CMV IgG Ab/TORCH EBV Capsid Ag IgG Ab EBV Capsid Ag IgM Ab EBV Nuclear Antigen Ab EBV Antibody Interp 11/06/21 11/06/21 11/05/21 Range/Units 07:22 07:22 21:03 WBC (4.8-10.8) K/ul RBC (3.93-5.22) M/uL Hgb (12.0-16.0) g/dl Hct (34.1-44.9) % MCV (80.0-100.0) fL MCH (25.0-34.0) pg MCHC (32.0-36.0) g/dL RDW Std Deviation (36.4-46.3) fL RDW Coeff of Charlee (11.5-14.5) % Plt Count (130-400) K/uL MPV (9.4-12.3) fL Immature Gran % (Auto) % Neut % (Auto) % Lymph % (Auto) % Prentiss % (Auto) % Eos % (Auto) % Baso % (Auto) % Neut # (Auto) (1.4-6.5) K/uL Lymph # (Auto) (1.2-3.4) K/uL Prentiss # (Auto) (0.24-0.82) K/uL Eos # (Auto) (0-0.50) K/uL Baso # (Auto) (0-0.2) K/uL Immature Gran # (Auto) (0.00-0.02) K/uL PT (9.0-12.0) Seconds INR (0.9-1.1) Sodium (136-145) mmol/L Potassium (3.5-5.1) mmol/L Chloride (98-107) mmol/L Carbon Dioxide (21-32) mmol/L Anion Gap (3-11) BUN (6-23) mg/dl Creatinine (0.6-1.2) mg/dl Est Cr Clr Drug Dosing ml/min Est GFR ( Amer) ml/min Est GFR (Non-Af Amer) ml/min BUN/Creatinine Ratio (10-20) Glucose (70-99(Fasting)) mg/dl POC Glucose 155 H (70-99) mg/dl Calcium (8.5-10.1) mg/dl Ionized Calcium (1.12-1.32) mmol/L Magnesium (1.7-2.4) mg/dl Total Bilirubin (0.2-1.0) mg/dl Direct Bilirubin (0-0.2) mg/dl AST (13-39) U/L ALT (7-52) U/L Alkaline Phosphatase (34-104) U/L Ammonia 69.0 (18-72) umol/L Total Protein (6.0-8.3) gm/dl Albumin (3.4-5.0) gm/dl 25-OH Vitamin D Total 52.7 (30-100) ng/ml PTH Intact (12.0-88.0) pg/ml PTH Related Protein CMV IgM Ab CMV IgG Ab/TORCH EBV Capsid Ag IgG Ab EBV Capsid Ag IgM Ab EBV Nuclear Antigen Ab EBV Antibody Interp 11/05/21 Range/Units 17:48 WBC (4.8-10.8) K/ul RBC (3.93-5.22) M/uL Hgb (12.0-16.0) g/dl Hct (34.1-44.9) % MCV (80.0-100.0) fL MCH (25.0-34.0) pg MCHC (32.0-36.0) g/dL RDW Std Deviation (36.4-46.3) fL RDW Coeff of Charlee (11.5-14.5) % Plt Count (130-400) K/uL MPV (9.4-12.3) fL Immature Gran % (Auto) % Neut % (Auto) % Lymph % (Auto) % Prentiss % (Auto) % Eos % (Auto) % Baso % (Auto) % Neut # (Auto) (1.4-6.5) K/uL Lymph # (Auto) (1.2-3.4) K/uL Prentiss # (Auto) (0.24-0.82) K/uL Eos # (Auto) (0-0.50) K/uL Baso # (Auto) (0-0.2) K/uL Immature Gran # (Auto) (0.00-0.02) K/uL PT (9.0-12.0) Seconds INR (0.9-1.1) Sodium (136-145) mmol/L Potassium (3.5-5.1) mmol/L Chloride (98-107) mmol/L Carbon Dioxide (21-32) mmol/L Anion Gap (3-11) BUN (6-23) mg/dl Creatinine (0.6-1.2) mg/dl Est Cr Clr Drug Dosing ml/min Est GFR ( Amer) ml/min Est GFR (Non-Af Amer) ml/min BUN/Creatinine Ratio (10-20) Glucose (70-99(Fasting)) mg/dl POC Glucose 97 (70-99) mg/dl Calcium (8.5-10.1) mg/dl Ionized Calcium (1.12-1.32) mmol/L Magnesium (1.7-2.4) mg/dl Total Bilirubin (0.2-1.0) mg/dl Direct Bilirubin (0-0.2) mg/dl AST (13-39) U/L ALT (7-52) U/L Alkaline Phosphatase (34-104) U/L Ammonia (18-72) umol/L Total Protein (6.0-8.3) gm/dl Albumin (3.4-5.0) gm/dl 25-OH Vitamin D Total (30-100) ng/ml PTH Intact (12.0-88.0) pg/ml PTH Related Protein CMV IgM Ab CMV IgG Ab/TORCH EBV Capsid Ag IgG Ab EBV Capsid Ag IgM Ab EBV Nuclear Antigen Ab EBV Antibody Interp Diagnostic Findings KUB X-Ray 11/05/21 11:50 KUB HISTORY: assess stool burden COMPARISON: Abdomen and pelvis CT 10/22/2021. KUB 06/12/2016. FINDINGS: The bowel gas pattern is unremarkable. There are no dilated loops of small bowel to suggest an obstruction. No renal calculi. No ureteral calculi. No pneumoperitoneum or pneumatosis. Moderate amount of well-formed stool within the distal colon and rectum. Calcifications in the deep pelvis consistent with phleboliths. Prior cholecystectomy. The lung bases appear clear. IMPRESSION: 1. Moderate well-formed stool seen throughout the colon and rectum. 2. No evidence for bowel obstruction. 3. Cholecystectomy. ACT 112: Negative or not required by law. Electronically signed by: Ivan Veronica M.D. 11/05/2021 2:53 PM Abdomen/Pelvis CT 11/05/21 14:17 CT SCAN OF THE ABDOMEN AND PELVIS WITH IV CONTRAST CLINICAL HISTORY: Generalized abdominal pain. COMPARISON STUDY: Abdominal CT dated 10/22/2021. TECHNIQUE: Following the IV administration of 96 cc of Optiray 300, CT scan of the abdomen and pelvis is performed from the lung bases to the proximal femora. Images are reviewed in the axial, sagittal, and coronal planes. IV contrast was administered without complication. A dose lowering technique was utilized adhering to the principles of ALARA. CT DOSE: 454.29 mGy.cm FINDINGS: Lung bases: The heart is enlarged and without pericardial effusion. The lung bases are clear noting bibasilar scarring/atelectasis. There is a small hiatal hernia. Esophageal varices are noted. Liver: The contrast-enhanced liver is cirrhotic in morphology and heterogeneous in attenuation. Hepatic attenuation is diminished suggesting steatosis. There is nodularity of the hepatic surface contour. There is mild central intrahepatic biliary ductal dilatation. The hepatic veins and portal veins are patent. Gallbladder: Surgically absent noting clips in the gallbladder fossa. The common bile duct is dilated, measuring up to 11 mm in diameter. This is similar to previous. Spleen: The spleen is enlarged, measuring 16.5 cm in length. There are large perigastric and perisplenic collaterals. Pancreas: Unremarkable. Adrenal glands: Unremarkable. Kidneys: The contrast enhanced kidneys are normal in size and without hydronephrosis. The kidneys enhance symmetrically. Abdominal vasculature: The abdominal aorta is normal in course and caliber noting mild atherosclerotic calcification. Bowel: There is advanced colonic diverticulosis without CT evidence of acute diverticulitis. Liquid stool is noted in the right colon. No bowel obstruction is seen. There are large duodenal diverticula. The appendix is well-visualized and normal. Peritoneum: There is no intraperitoneal free air or abdominal ascites. Lymphadenopathy: None. Pelvic viscera: The bladder is distended but otherwise normal in appearance. The uterus is surgically absent. No adnexal lesion is seen. Skeletal structures: The skeletal structures are osteopenic No lytic or blastic lesions are seen. A subacute superior endplate compression fracture of L4 is again noted. There is mild lumbosacral spondylosis. IMPRESSION: 1. Cirrhotic liver. 2. Splenomegaly, esophageal varices, and upper abdominal collaterals indicate portal hypertension. 3. Liquid stool is noted in the right colon. Correlate clinically for evidence of a diarrheal illness. 4. Advanced colonic diverticulosis without CT evidence of acute diverticulitis. 5. A subacute superior endplate compression fracture of L4 is again noted. 6. Additional findings as above. ACT 112: Negative or not required by law. Electronically signed by: Parveen Candelaria M.D. 11/05/2021 3:39 PM KUB X-Ray 11/06/21 07:33 KUB HISTORY: Generalized abdominal pain. follow up constipation COMPARISON: KUB 11/05/2021. FINDINGS: Moderate well-formed stool again seen throughout the colon. This is similar to the prior study. No evidence for bowel obstruction. Prior cholecystectomy. No renal calculi. No ureteral calculi. Calcifications in the deep pelvis likely represent phleboliths. No pneumoperitoneum or pneumatosis. Small amount of residual contrast within the bladder from the recent CT examination. IMPRESSION: 1. Initially changes within the moderate well-formed stool seen within the colon. 2. No evidence for bowel obstruction. ACT 112: Negative or not required by law. Electronically signed by: Ivan Veronica M.D. 11/06/2021 10:36 AM PG Care Time/CCT Total # of Minutes Spent Total Time Spent with Patient: Total time spent is greater than 50% in coordination of care (as documented) at patient's floor/unit and/or counseling patient: Coding Level of Care Code 67473 Subseq Hosp Care Lvl 3 Diagnoses Abdominal pain R10.9 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 Hypercalcemia E83.52 Acute UTI N39.0 Anxiety and depression F41.9; F32.9 Chronic diarrhea K52.9 Elevated bilirubin R17 Sensorineural hearing loss (SNHL) of both ears H90.3 Hypomagnesemia E83.42 Hypokalemia E87.6 Diabetes mellitus, type 2 E11.9 Moeller's esophagus with esophagitis K22.70; K20.9 Hypothyroidism E03.9 History of fractured vertebra Z87.81
[2021-11-06 07:49] LABS: Hematocrit (blood only) 31.4 % (34.1-44.9); Hemoglobin 10.8 g/dl (12.0-16.0); Mean Corpuscular Hemoglobin 31.4 pg (25.0-34.0); Mean Corpuscular Hgb Conc 34.4 g/dL (32.0-36.0); Mean Corpuscular Volume 91.3 fL (80.0-100.0); Mean Platelet Volume 8.7 fL (9.4-12.3); Platelet Count 114 K/uL (130-400); RDW Coefficient of Variation 15.7 % (11.5-14.5); RDW Standard Deviation 51.6 fL (36.4-46.3); Red Blood Count 3.44 M/uL (3.93-5.22); White Blood Count 4.59 K/ul (4.8-10.8)
[2021-11-06 07:56] LABS: INR 1.4 (0.9-1.1); Prothrombin Time 14.2 Seconds (9.0-12.0)
[2021-11-06 08:08] LABS: Basophils # (auto) 0.02 K/uL (0-0.2); Basophils % (auto) 0.4 %; Eosinophils # (auto) 0.32 K/uL (0-0.50); Immature Granulocytes # (auto) 0.01 K/uL (0.00-0.02); Immature Granulocytes % (auto) 0.2 %; Lymphocytes # (auto) 1.04 K/uL (1.2-3.4); Lymphocytes % (auto) 22.7 %; Monocytes # (auto) 0.77 K/uL (0.24-0.82); Monocytes % (auto) 16.8 %; Neutrophils # (auto) 2.43 K/uL (1.4-6.5); Neutrophils % (auto) 52.9 %
[2021-11-06 08:14] LABS: Albumin Level 3.1 gm/dl (3.4-5.0); BUN Creatinine Ratio 14.1 (10-20); Bilirubin Direct 1.2 mg/dl (0-0.2); Bilirubin,Total 5.3 mg/dl (0.2-1.0); Calcium 9.9 mg/dl (8.5-10.1); Est GFR (African American) 67.9 ml/min; Est GFR (Non-African American) 58.6 ml/min; Magnesium 1.4 mg/dl (1.7-2.4); Potassium 3.5 mmol/L (3.5-5.1)
[2021-11-06] MEDS ORDERED: POTASSIUM CHLORIDE CRTAB 20 MEQ TABCR PO STA (08:39)
[2021-11-06] MEDS ORDERED: SODIUM CHLORIDE 0.9% 500 ML IV SCH (08:45)
[2021-11-06] MEDS ORDERED: CHLORTHALIDONE 25 MG TAB PO ONE (09:00)
--- NOTE | 2021-11-06 09:16 | Communication Note ---
Date of Service: November 06, 2021 Patient is feeling much better since yesterday. xray had shown moderate fecal material in colon and rectum. With lactulose increased to TID she had 2 bowel movements yesterday. abdominal pain improved with this. The patient tells me she feels much better today after moving bowel. Likely will need discharged on higher dose of lactulose than her dose prior to admission. She should aim for 2- 3 bowel movements daily. She can follow with her regular GI at [facility] on discharge.
[2021-11-06] MEDS: INSULIN ASPART PER UNIT SC SCH ×4 (09:26→20:58)
[2021-11-06] MEDS: LANTUS PER UNIT CHARGE SQ SCH ×2 (09:29→21:08)
[2021-11-06] MEDS: MAGNESIUM SULFATE / D5W 1 GM/100 ML BAG IV SCH ×4 (09:31→16:15)
[2021-11-06] MEDS: PROPRANOLOL HCL 20 MG TAB PO SCH (09:31)
[2021-11-06] MEDS: LACTULOSE SYRUP 20 GM/30 ML UDC PO SCH ×3 (09:32→21:08)
[2021-11-06] MEDS: PANTOprazole 40 MG TAB PO SCH (09:32)
[2021-11-06] MEDS: PARoxetine HCL 20 MG TAB PO SCH (09:32)
[2021-11-06] MEDS: rifAXIMin 550 MG TABLET PO SCH ×2 (09:33→21:00)
--- NOTE | 2021-11-06 10:38 | XRay Report ---
KUB HISTORY: Generalized abdominal pain. follow up constipation COMPARISON: KUB 11/05/2021. FINDINGS: Moderate well-formed stool again seen throughout the colon. This is similar to the prior st udy. No evidence for bowel obstruction. Prior cholecystectomy. No renal calculi. No ureteral calculi . Calcifications in the deep pelvis likely represent phleboliths. No pneumoperitoneum or pneumatosis. Small amount of residual contrast within the bladder from the recent CT examination. IMPRESSION: 1. Initially changes within the moderate well-formed stool seen within the colon. 2. No evidence for bowel obstruction. ACT 112: Negative or not required by law. Electronically signed by: Ivan Veronica M.D. 11/06/2021 10:36 AM
[2021-11-06] MEDS: traMADol HCL 50 MG TABLET PO PRN (16:19)
[2021-11-06] MEDS: ENOXAPARIN INJ 40 MG/0.4 ML SYR SQ SCH (18:32)
[2021-11-06] MEDS: oxyCODONE HCL IR 5 MG TAB (IMMEDIATE RELEASE) PO PRN (21:08)
[2021-11-06 21:23] LABS: Adenovirus F 40/41 PCR Not Detected (NotDetected); Astrovirus PCR Not Detected (NotDetected); Campylobacter PCR Not Detected (NotDetected); Cryptosporidium PCR Not Detected (NotDetected); Cyclospora cayetanensis PCR Not Detected (NotDetected); Entamoeba histolytica PCR Not Detected (NotDetected); Enteroaggregative E.coli(EAEC) Not Detected (NotDetected); Enteropathogenic E.coli (EPEC) Not Detected (NotDetected); Enterotoxigenic E.coli (ETEC) Not Detected (NotDetected); Giardia lamblia PCR Not Detected (NotDetected); Norovirus GI/GII PCR Not Detected (NotDetected); Plesiomonas shigelloides PCR Not Detected (NotDetected); Rotavirus A PCR Not Detected (NotDetected); Salmonella PCR Not Detected (NotDetected); Sapovirus PCR Not Detected (NotDetected); Shiga-like Toxin E.coli (STEC) Not Detected (NotDetected); Shigella/Enteroinvasive E.coli Not Detected (NotDetected); Vibrio cholerae PCR Not Detected (NotDetected); Vibrio species PCR Not Detected (NotDetected); Yersinia enterocolitica PCR Not Detected (NotDetected)
[2021-11-06 22:34] LABS: Cdiff Antigen Positive; Cdiff Toxin A+B Negative Cdiff Toxin (Negative)
[2021-11-07] MEDS: LEVOTHYROXINE SODIUM 100 MCG TABLET PO SCH (06:04)
[2021-11-07 06:53] LABS: Hematocrit (blood only) 29.7 % (34.1-44.9); Hemoglobin 10.3 g/dl (12.0-16.0); Mean Corpuscular Hemoglobin 31.4 pg (25.0-34.0); Mean Corpuscular Hgb Conc 34.7 g/dL (32.0-36.0); Mean Corpuscular Volume 90.5 fL (80.0-100.0); Mean Platelet Volume 8.9 fL (9.4-12.3); Platelet Count 110 K/uL (130-400); RDW Coefficient of Variation 15.7 % (11.5-14.5); RDW Standard Deviation 51.6 fL (36.4-46.3); Red Blood Count 3.28 M/uL (3.93-5.22); White Blood Count 4.08 K/ul (4.8-10.8)
[2021-11-07 07:21] LABS: BUN Creatinine Ratio 11.3 (10-20); Calcium 9.7 mg/dl (8.5-10.1); Est GFR (African American) 62.5 ml/min; Est GFR (Non-African American) 53.9 ml/min; Potassium 3.3 mmol/L (3.5-5.1)
[2021-11-07 07:22] LABS: Albumin Level 3.1 gm/dl (3.4-5.0); Bilirubin Direct 1.1 mg/dl (0-0.2); Magnesium 1.6 mg/dl (1.7-2.4); Total Protein 4.9 gm/dl (6.0-8.3)
[2021-11-07] MEDS: rifAXIMin 550 MG TABLET PO SCH (08:16)
[2021-11-07] MEDS: PROPRANOLOL HCL 20 MG TAB PO SCH (08:16)
[2021-11-07] MEDS: PARoxetine HCL 20 MG TAB PO SCH (08:16)
[2021-11-07] MEDS: LACTULOSE SYRUP 20 GM/30 ML UDC PO SCH ×2 (08:16→13:29)
[2021-11-07] MEDS: PANTOprazole 40 MG TAB PO SCH (08:16)
[2021-11-07] MEDS: INSULIN ASPART PER UNIT SC SCH ×2 (08:22→12:05)
[2021-11-07] MEDS: LANTUS PER UNIT CHARGE SQ SCH (08:22)
[2021-11-08 13:17] LABS: HBSAG NON-REACTIVE (NON-REACTIVE); Hepatitis A Antibody IgM NON-REACTIVE (NON-REACTIVE); Hepatitis B Core Antibody IgM NON-REACTIVE (NON-REACTIVE)
[2021-11-11 14:22] LABS: CMV IgG Antibody <0.60 U/mL; CMV IgM Antibody <30.00 AU/mL; PTH Related Protein 9 pg/mL (11-20)
--- NOTE | 2021-11-11 21:26 | Discharge Summary ---
Date of Service November 07, 2021 Admission HPI Per Admitting Provider Aurelia Kurtz is a 66-year-old female history of medication noncompliance, REBOLLAR cirrhosis, lithiasis, anxiety/depression, sensorineural hearing loss, hyperparathyroidism, UTIs, and C. difficile who presents from her doctor's office with altered mental status and elevated ammonia. She saw her ECP today where she had a syncopal spell, her ammonia returned 128. She has had worsening confusion, nausea, and forgetfulness over the last week. Feels weak. Reports she has been taking her lactulose. 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 Presents for at least 3 to 5 days of progressive fatigue, weakness, some dysuria with frequency, and fogginess/confusion. Initially outpatient evaluation concerning for hyperammonemia was referred to the ER for further care. Propanolol dose is supposed to be 20mg, had gotten 80mg tablets but supposed to be on 20. +several days of feeling poor/washed out reports she has felt more nauseus and 'not quite right' for 3 days. no vomiting has had similar pain/discomfort with UTIs in the past. Gee a little when she pees and has increased frequency No diarrhea, is taking her lactulose BID as prescribed. Last took this morning No fevers, chills, or sweats NO chest pain, no shortness of breath No lightheadedness/dizzyness but feels 'foggy' for a few days. Concerned that her ammonia was very high on outpatient labs, was told was >150 Xifaxan started today Had some pain in her back following a fall 2 months ago, no recent or new pain. Stilla ches in the middle with physical therapy sometimes Medical History: Reviewed Medications: Reviewed medications today Surgical History: Reviewed Allergies: Reviewed Social History: Reviewed Code Status: DNR/DNI, discussed with patient at bedside Principal Diagnosis abdominal pain Discharge Exam General: WD female resting in bed, looks much better, NAD HEENT: bilateral scleral icterus IMPROVED, pupils equal and reactive, mmm, trachea midline without deviation Resp: CTAB, less diminished in the bases, on room air 96% CV: RRR, +faint systolic murmur, no calf tenderness GI: LESS distended, SOFT, NONTENDER, no guarding/rigidity MSK/Neuro: lumbar spine tenderness to palpation (prior fx, reported falling off toilet in July), moves all extremities, no focal deficit Psych: alert to person/place/time Skin: warm ,dry Discharge Data Allergies Allergy/AdvReac Type Severity Reaction Status Date / Time bee venom protein (honey bee) Allergy Severe Anaphylaxis Verified 11/04/21 16:01 Influenza Virus Vaccines Allergy Severe Anaphylaxis Verified 11/04/21 16:01 tetracycline AdvReac Severe Severe Verified 11/04/21 16:01 stomach pains Consultations 11/04/21 15:27 ED Decision to Admit Stat 11/05/21 10:34 Consult Gastroenterology Routine Ordered Studies 11/04/21 12:39 CT head/brain wo con Stat 11/04/21 18:09 US Renal Bladder [US renal/blad retro comp] Urgent 11/05/21 14:17 CT abd pelvis IV con only Urgent Hospital Course (1) Abdominal pain: Admitted with weakness, confusion, abdominal pain-- likely from hyperammonemia Suspected related to UTI on admission (urine cx pending), however was just admitted 10/22-10/24 for liver cirrhosis and shaking/headache/confusion with elevated ammonia level in the setting of not using her lactulose as an outpatient as she was having cramping and diarrhea with the lactulose Patient reported no BM in prior 3 days (prior noncompliance but reported she has been) Prior admit w/ reports not using due to diarrhea Ammonia was 128--> 62 on repeat and initially felt not cause of AMS/confusion however repeat was 121 on 11/06 and moderate stool through colon +BM x 3 reported since admission (1 last evening 11/05, 2 this morning) after lactulose enema 11/05 and continues on increased lactulose 20mg TID for now (was on 20mg BID) Ammonia 121--> 69 on repeat Continue rifaximin 550mg BID 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 [place] diarrheal/liquid stool in right colon from overflow from not moving her bowels for several days. No need for ERCP AST 73--> 63, ALP 113--> 109, however TB 5.3 Stool PCR given prior admits multiple liquid stool/diarrheal illness. Once able to collect On ceftriaxone for suspected UTI on admit --> urine cx negative, abx discontinued Afebrile Electrolyte derangements Also suspect hypercalcemia contributing to her constipation Ca 9.9, albumin 3.1, corrected 10.6. Checked ionized ca, slightly elevated to 1.36 Ordered additional 500cc IVF and her chlorthalidone 11/05 and Ca improved Repeat today, Cr improved from 1.33--> 0.99 Renal US without evidence for stones/obstruction Vit D/PTH/calcium leveles similar to prior admits. Sent out parathyroid related peptide for further eval Mag again low this morning 1.4 --> IV replacement ordered and prior ordered mag oxide BID discontinued. -->If need for PO supplementation would use slow mag PO at d/c. Monitor level in AM Continued to monitor labs/electrolyte replacement as needed--> improved BM, ok to DC Messaged Africa Ulloa PA-C from [facility] for close f/u at discharge (messaged her about patient being enrolled in hospice as well, would make ineligible for transplant she is interested in) (2) 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: as above, outpt f/u Dr García/Africa Ulloa and [facility] (3) Hypercalcemia: on admit, Ca 10.2 appears has had similar elevations in the past (hx calcium and uric acid based kidney stones) per Dr Chau's notes hx mild hypercalcemia while on thiazide diuretic, normal Vit D, PTH incompletely suppressed. Advised 2.5-3L free water intake/day ?if contributing to constipation Vit D/PTH/ca levels similar to past. Sent parathyroid related peptide for further eval but rec'd f/u nephrology outpatient Corrected Ca for albumin 10.6 today did resume chlorthalidone AM 11/05, given additional dose with IVF to help improve calcium levels and they have been improved. Repeat for today given ionized yola still slightly elevated Monitor levels in AM (4) Acute UTI: suspected on admit, but more likely related to elevated ammonia continues on ceftriaxone empirically, monitor urine cx denies dysuria symptoms Renal US ordered for eval pyelonephritis -- no evidence CTAP ordered for eval for above DISCONTINUED ABX, AFEBRILE, NO URINARY SX Prior report possible underlying cystitis. monitor off abx and with bowels moving (5) Anxiety and depression: continue lorazepam -- cautious given confusion on admission (6) Chronic diarrhea: prior reports, now w/ constipation ?medication non-compliance had been sent w/ [facility] in July, no longer taking? check stool sample once going given prior +cdiff Moving bowels, liquid stool felt related to overflow per GI Stool PCR when sample able to be collected (7) Elevated bilirubin: improving initially but elevated at 5. icterus improved and other LFTs imprvoed sent for CMV/EBV for completeness continue rifaximin, lactulose as outlined monitor labs in AM (8) Sensorineural hearing loss (SNHL) of both ears: (9) Hypomagnesemia: 1.5 on admit, IV replacment ordered repeat wnl 2.0 but had been on PO mag oxide BID sent earlier this month which had been continued resolved (10) Hypokalemia: low, replacement ordered and normal on repeat, likely 2nd to chlorthalidone use given additional PO replacement with her chlorthalidone today (11) Diabetes mellitus, type 2: Last A1c 6.4 continue glargine 7u BID, ISS while inpatient BSGs acceptable (12) Moeller's esophagus with esophagitis: hx of such on PPI once daily outpatient, Protonix while inpatient ?Protonix induced hypomagnesemia mag replacement as above no reflux symptoms (13) Hypothyroidism: TSH wnl remains on levothyroxine 100/112mcg alternating doses (14) History of fractured vertebra: hx of such, fell off toilet in July 2021, sustained compression fracture of L4 again noted was to f/u orthopedics/brace but no brace due to abd pain patient states she would like to have if able consulted orthotics while inpatient PT/OT consulted Total Time Total Time Spent Total Time Spent (In Minutes): 40 Discharge Plan Discharge Items Patient Disposition: Home - Home Health Services Reason For Visit: AMS, PYELO, HX HYPERAMMONEMIA Discharge Diagnosis: Pyelo, AMS Condition on Discharge: Fair Activity: Resume your previous activity Non-emergency contact: Primary Care Provider Call non-emergency contact if: you have any medication questions Follow-up/Referrals: Reza Cid MD [Primary Care Provider] - 11/12/21 1:10 pm (Appointment with Dr. Gregorio) Diet: Carb Consistent or DM2 and Heart Healthy Addtl Attending Provider Instructions: You have been hospitalized for an acute medical problem. During your stay at [facility], we have made an effort to correct the problem that brought you to the hospital while keeping you as comfortable as possible. Medications were used to bring your condition under control and your discharge instructions will include directions for any medications you should take after leaving the hospital. Please make sure you see your Primary Care Provider as part of your follow up plan. Recommend followup with GI within 1-2 months. Recommend followup with PCP in 1-2 weeks. Changed your lactulose to TID Please continue the rifaximin that was started here. Goal for 2-3 BM daily. Pending Studies at Discharge: No Stand-Alone Forms: My [facility], Smoking Cessation Medications and DC Order Prescriptions: New Xifaxan 550 mg Tablet 550 mg PO BID Qty: 60 0RF propranolol 20 mg Tablet 20 mg PO QAM Qty: 30 0RF Continued levothyroxine 100 mcg tablet 100 mcg PO Q2D Qty: 45 1RF Rx Instructions: 100 mcg PO every other day; alternate with 112 mcg lorazepam 1 mg tablet 1 mg PO TID PRN (Reason: Anxiety) paroxetine HCl 20 mg tablet 20 mg PO QAM valacyclovir 1 gram tablet 1 mg PO UD PRN (Reason: Cold Sores) Label Comments: NOT CURRENTLY USING phenazopyridine [Pyridium] 200 mg tablet 200 mg PO UD PRN (Reason: bladder pain) levothyroxine 112 mcg tablet 112 mcg PO Q2D Rx Instructions: 112 mcg PO every other day, alternate with 100 mcg. Take 1st thing in the morning on an empty stomach 30 min prior to any other oral intake. (VERIFIED PAT CALL 09/09/21) dulaglutide 3 mg/0.5 mL pen injector 3 mg subcut WK Label Comments: SUNDAYS Rx Instructions: Inject 3 mg subcut once weekly Wednesday cholestyramine-aspartame [Cholestyramine Light] 4 gram powder in packet 4 g PO BID PRN (Reason: .bloating) Label Comments: CURRENTLY ON HOLD ; LAST DOSE PROBABLY 5 WEEKS AGO magnesium oxide 400 mg magnesium tablet 400 mg PO BID Qty: 60 0RF hyoscyamine sulfate 0.125 mg tablet,disintegrating 0.125 mg PO QID omeprazole 40 mg Capsule,Delayed Release(Dr/Ec) 40 mg PO DAILY tramadol 50 mg tablet 50 mg PO DAILY PRN (Reason: moderate pain) Qty: 15 0RF oxycodone 5 mg tablet 5 mg PO Q6H PRN (Reason: severe pain (scale score 7-10)) Qty: 10 0RF Women's 50 Plus Multivitamin 400 mcg-500 mg calcium-20 mcg Tablet 1 tab PO QAM zolpidem 5 mg tablet 5 mg PO HS PRN (Reason: insomnia) Qty: 0 0RF Changed chlorthalidone 25 mg tablet 25 mg PO Q2D Qty: 30 0RF potassium chloride [Klor-Con M20] 20 mEq Tablet,Er Particles/Crystals 20 meq PO Q2D Qty: 60 0RF lactulose 20 gram/30 mL Solution 20 g PO TID Qty: 1500 0RF Discontinued propranolol 80 mg capsule,extended release 24 hr 80 mg PO BID Discharge Orders: Discharge Order (Routine); Ordered 11/07/21 Ordered By: Nura Tracey Admission Data Admit Date/Time: 11/05/21 15:16 Attending Provider: Nura Tracey Admit Provider: Fredy Louis Primary Care Provider: Reza Cid Other Providers: Fredy Louis ; [facility] ; Oneil Garcia Other Interventions: Discharge Summary Assessment (RN) Last Done: 11/07/21 14:21 Coding Level of Care Code D/C DAY MANAGEMENT >30 MINS Diagnoses Abdominal pain R10.9 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 Hypercalcemia E83.52 Acute UTI N39.0 Anxiety and depression F41.9; F32.9 Chronic diarrhea K52.9 Elevated bilirubin R17 Sensorineural hearing loss (SNHL) of both ears H90.3 Hypomagnesemia E83.42 Hypokalemia E87.6 Diabetes mellitus, type 2 E11.9 Moeller's esophagus with esophagitis K22.70; K20.9 Hypothyroidism E03.9 History of fractured vertebra Z87.81 Time Spent (min) 35
== END 2021-11-07 15:23 | disposition home health service (06) | DRG 642 ==
LOC: EDINP 12:24 → ED 12:24 → SUATTDRO 15:50 → 2N 11-05 15:16

== ENCOUNTER 2021-11-25 11:15 | Inpatient (IN) ==
[2021-11-25] MEDS ORDERED: ONDANSETRON INJ 2 MG/ML 2 ML VIAL IV STA (11:31)
[2021-11-25] MEDS ORDERED: LACTULOSE SYRUP 20 GM/30 ML UDC PO ONE (11:31)
--- NOTE | 2021-11-25 11:39 | Emergency Department Note ---
Impression & Plan Weakness, Hypomagnesemia, Dehydration, Near syncope, Hyperammonemia ED Provider Note NAME: SHOLA WYNN AGE: 66 SEX: F : 1955 ARRIVES VIA: Ambulance INFORMANT: [Patient] ED PROVIDER(S): [Parveen Jarvis MD] CHIEF COMPLAINT: Near syncope HISTORY OF PRESENT ILLNESS: The patient is a 66-year-old female presents with a near syncopal spell. She feels a bit confused and disoriented. She is concerned that her ammonia level is high. She has taken 3 doses of lactulose as prescribed yesterday and has not had a bowel movement. This morning, the patient felt lightheaded and dizzy and a bit confused. She was standing when this all began. She did not pass out but felt she could. No shortness of breath or chest pain. She does have abdominal pain but this is ch ronic. There has been no fever, cough or congestion. She presents by ambulance. REVIEW OF SYSTEMS: See HPI for pertinent positives and negatives. A total of ten systems were reviewed and were otherwise negative. PMHx/PSHx: See Below SOCIAL HISTORY: See Below. PHYSICAL EXAM: GENERAL: Patient is in no acute distress. HEENT: No acute trauma, normocephalic atraumatic, mucous membranes dry, no nasal congestion. NECK: No stridor, no adenopathy, no meningismus, trachea is midline. LUNGS: Clear to auscultation bilaterally, no wheeze, no rhonchi, breath sounds equal. HEART: Without murmurs gallops or rubs, regular rate and rhythm. ABDOMEN: Soft, nontender, bowel sounds positive, no peritonitis. EXTREMITIES: No cyanosis or edema, full range of motion of all the joints without pain or difficulty, no signs for acute trauma. NEUROLOGIC: Oriented x 3, no acute motor or sensory deficits, no focal weakness. SKIN: No rash, moderate jaundice, no diaphoresis. DIFFERENTIAL DIAGNOSIS: Infection, dehydration, elevated ammonia level, metabolic abnormality, hypo/ hyperglycemia, electrolyte disturbance, anemia, hypoxia, cardiac sources, intracerebral event, toxicologic issues, stroke, TIA, as well as other pathologies. EMERGENCY DEPARTMENT COURSE/PROCEDURES: ECG: Indication was near syncope. The ECG shows a normal sinus rhythm with a rate of 79. LVH is present. There is no ST elevation, no PVCs. A potential old inferior infarct was noted. Continuous Cardiac Monitoring: An order was placed for continuous cardiac monitoring. The monitor shows a rate of 78 with normal sinus rhythm. MEDICAL DECISION MAKING: There is no leukocytosis. The patient has a very mild anemia. Platelet count was low but she has a history of the same. INR somewhat elevated at 1.3, likely from her liver disease. Magnesium was quite low at 1.4. No kidney failure. There were some elevated liver enzymes consistent with her liver disease. Bilirubin was 5.3 which is about her recent baseline. ECG showed a normal sinus rhythm, no ischemia or dysrhythmia. Cardiac enzyme testing x1 was not consistent with acute cardiac injury. Urinalysis did not show findings of infection. COVID test returned negative. Chest x-ray did not show pneumonia or CHF. On exam, the patient was jaundiced and appeared dehydrated. The patient was given a dose of oral lactulose. She received IV saline, 500 cc. She was given IV Zofran, IV magnesium. She received IV morphine as needed for pain. Patient is dehydrated, weak, dizzy, she has a low magnesium level and a high ammonia level. I do think a hospital stay would be warranted. I spoke with the patient and case management. The on-call hospitalist was consulted. Past Med/Surg History Medical History Anemia HX Arthritis Moeller's esophagus with esophagitis Chronic diarrhea SOMETIMES Depression Diabetes mellitus, type 2 Diverticulitis of sigmoid colon Diverticulosis GERD (gastroesophageal reflux disease) GI bleed RECENT HOSPITALIZED - PT DENIES HX GI BLEED Heel spur B/L feet Hiatal hernia History of colon polyps BENIGN History of fractured vertebra CURRENT, HX FALL JULY 2021 - FELL OF THE TOILET - NO INTERVENTION AT PRESENT/ [facility] FOR TO DISCUSS TX OPTIONS - POTENTIAL BACK BRACE History of kidney stones Hyperlipidemia Hypertension NO CURRENT MEDS 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) Spleen enlarged MONITORS - PT REPORTS FROM THE REBOLLAR Stucco keratoses Temporomandibular joint disorder NO 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 Thyroid disease UTI (urinary tract infection) HX, JULY 2021 -HOSPITALIZED FOR , NOW RESOLVED DURING TESTING FOUND 2 LUMPS IN INTESTINES...REASON FOR UPCOMING COLONOSCOPY Surgical History H/O thumb surgery RT/LEFT JOINT REPAIR H/O total hysterectomy History of appendectomy History of arthroscopy of knee Left Knee - meniscus/cartilage History of colonoscopy History of cystoscopy History of esophagogastroduodenoscopy (EGD) History of tonsillectomy and adenoidectomy History of tooth extraction Hx of cholecystectomy Family History Brother Coronary heart disease Heart disease Mother Family history of diabetes mellitus Hypertension Heart disease Sister Family history of diabetes mellitus Son Family history of diabetes mellitus Father Family hx of colon cancer Hearing loss Hypertension Cancer Heart disease Grandfather (Maternal) Family hx of colon cancer Other No family history of adverse response to anesthesia No family history of bleeding disorder Social History Smoking Status: Never smoker Second Hand Exposure: No; Hx Alcohol Use: No Hx Substance Use: No Preferred Language: Yoruba Communication Ability: Effective Director News Required: No Beliefs That Will Affect Care: None marital status: Current Living Situation: Spouse Current Living Situation Comment: and sister current occupational status: employed and retired How many Children do You have: 0 Feels Safe at Home: Yes Assistive Devices: Cane Allergies Allergies Allergy/AdvReac Type Severity Reaction Status Date / Time bee venom protein (honey bee) Allergy Severe Anaphylaxis Verified 11/04/21 16:01 Influenza Virus Vaccines Allergy Severe Anaphylaxis Verified 11/04/21 16:01 tetracycline AdvReac Severe Severe Verified 11/04/21 16:01 stomach pains Home Meds Home Medications Medication Instructions Recorded Confirmed paroxetine HCl 20 mg tablet 20 mg PO QAM 04/17/19 11/25/21 valacyclovir 1 gram tablet 1 mg PO UD PRN Cold Sores 04/16/21 11/04/21 lorazepam 1 mg tablet 1 mg PO TID PRN Anxiety 05/29/21 11/25/21 kyhiufnf-rth-auhhf ac 400 1 tab PO QAM 07/15/21 11/25/21 mcg-calcium carb 500 mg-vit K1 20 mcg tablet (Women's 50 Plus Multivitamin) dulaglutide 3 mg/0.5 mL 3 mg subcut WK 09/09/21 11/25/21 subcutaneous pen injector levothyroxine 112 mcg tablet 112 mcg PO Q2D 09/09/21 11/25/21 phenazopyridine 200 mg tablet 200 mg PO UD PRN bladder pain 09/09/21 11/04/21 (Pyridium) cholestyramine-aspartame 4 gram 4 g PO BID PRN .bloating 10/21/21 11/25/21 oral powder for susp in a packet (Cholestyramine Light) hyoscyamine sulfate 0.125 mg 0.125 mg PO QID 11/04/21 11/25/21 disintegrating tablet omeprazole 40 mg capsule,delayed 40 mg PO DAILY 11/04/21 11/25/21 release potassium bicarbonate-citric acid 25 meq PO TID 11/25/21 11/25/21 25 mEq effervescent tablet (Klor-Con/EF) propranolol 20 mg tablet 20 mg PO TID 11/25/21 11/25/21 Previous Rx's Medication Instructions Recorded zolpidem 5 mg tablet 5 mg PO HS PRN insomnia #0 tabs 07/20/21 magnesium oxide 400 mg PO BID #60 tabs 10/24/21 levothyroxine 100 mcg tablet 100 mcg PO Q2D #45 tabs 10/27/21 chlorthalidone 25 mg tablet 25 mg PO Q2D #30 tabs 11/07/21 lactulose 20 gram/30 mL oral 20 g (30 mL) PO TID #1,500 mL 11/07/21 solution oxycodone 5 mg tablet 5 mg PO Q6H PRN severe pain (scale 11/07/21 score 7-10) #10 tabs potassium chloride 20 mEq 20 meq PO Q2D #60 tabs 11/07/21 tablet,extended release(part/cryst) (Klor-Con M) rifaximin 550 mg tablet (Xifaxan) 550 mg PO BID #60 tabs 11/07/21 tramadol 50 mg tablet 50 mg PO DAILY PRN moderate pain 11/07/21 #15 tabs Results & Data (ED) Vital Signs Vital Signs - 24 hr 11/25/21 11:44 11/25/21 12:04 11/25/21 13:10 Temperature 37.2 C Temperature Source Oral Pulse Rate 79 78 Pulse Rate [Apical] 79 Respiratory Rate 20 20 18 Blood Pressure 144/63 H Blood Pressure [Right Arm] 126/64 Blood Pressure Mean 90 Blood Pressure Mean [Right Arm] 84 Pulse Oximetry 97 97 93 Sepsis Recent Fever Within 48 Hours No Sepsis New/Unexplained Change in Mental Status No Sepsis Action Taken by Nursing No Action Required 11/25/21 15:00 Temperature Temperature Source Pulse Rate Pulse Rate [Apical] 75 Respiratory Rate Blood Pressure Blood Pressure [Right Arm] Blood Pressure Mean Blood Pressure Mean [Right Arm] Pulse Oximetry Sepsis Recent Fever Within 48 Hours Sepsis New/Unexplained Change in Mental Status Sepsis Action Taken by [facility] Medications Current Medication List: was personally reviewed by me Laboratory Data Attestation: I reviewed the patient's lab results. Result diagrams: 11/25/21 11:31 11/25/21 11:31 Lab Results 11/25/21 11/25/21 11/25/21 Range/Units 11:31 11:31 11:31 WBC 3.66 L (4.8-10.8) K/ul RBC 3.50 L (3.93-5.22) M/uL Hgb 11.1 L (12.0-16.0) g/dl Hct 31.5 L (34.1-44.9) % MCV 90.0 (80.0-100.0) fL MCH 31.7 (25.0-34.0) pg MCHC 35.2 (32.0-36.0) g/dL RDW Std Deviation 55.4 H (36.4-46.3) fL RDW Coeff of Charlee 17.0 H (11.5-14.5) % Plt Count 118 L (130-400) K/uL MPV 9.3 L (9.4-12.3) fL Immature Gran % (Auto) 0.3 % Neut % (Auto) 42.9 % Lymph % (Auto) 32.0 % [place] % (Auto) 17.5 % Eos % (Auto) 6.8 % Baso % (Auto) 0.5 % Neut # (Auto) 1.57 (1.4-6.5) K/uL Lymph # (Auto) 1.17 L (1.2-3.4) K/uL [place] # (Auto) 0.64 (0.24-0.82) K/uL Eos # (Auto) 0.25 (0-0.50) K/uL Baso # (Auto) 0.02 (0-0.2) K/uL Immature Gran # (Auto) 0.01 (0.00-0.02) K/uL Platelet Estimate Normal (Normal) PT Cancelled INR Cancelled APTT Cancelled PTT Ratio Cancelled Sodium 135 L (136-145) mmol/L Potassium 3.9 (3.5-5.1) mmol/L Chloride 100 (98-107) mmol/L Carbon Dioxide 27 (21-32) mmol/L Anion Gap 8 (3-11) BUN 11 (6-23) mg/dl Creatinine 1.00 (0.6-1.2) mg/dl Est Cr Clr Drug Dosing 51.2 ml/min Est GFR ( Amer) 67.0 ml/min Est GFR (Non-Af Amer) 57.8 ml/min BUN/Creatinine Ratio 11.0 (10-20) Glucose 154 H (70-99(Fasting)) mg/dl Calcium 10.6 H (8.5-10.1) mg/dl Magnesium 1.4 L (1.7-2.4) mg/dl Total Bilirubin 5.3 H (0.2-1.0) mg/dl AST 92 H (13-39) U/L ALT 52 (7-52) U/L Alkaline Phosphatase 124 H (34-104) U/L Ammonia (18-72) umol/L Troponin I High Sens 6.6 (0-14) pg/ml Total Protein 5.5 L (6.0-8.3) gm/dl Albumin 3.5 (3.4-5.0) gm/dl Globulin 2.0 L (2.5-4.0) gm/dl Albumin/Globulin Ratio 1.8 (0.9-2) Urine Color Urine Appearance (Clear) Urine pH (4.5-7.5) Ur Specific [place] (1.000-1.030) Urine Protein (Negative) Urine Glucose (UA) (Negative) Urine Ketones (Negative) Urine Blood (Negative) Urine Nitrite (Negative) Urine Bilirubin (Negative) Urine Urobilinogen (Negative) Ur Leukocyte Esterase (Negative) Urine WBC (Auto) (0-5) /hpf Urine RBC (Auto) (0-4) /hpf U Hyaline Cast (Auto) (0-5) /lpf U Epithel Cells (Auto) (0-5) /lpf Urine Bacteria (Auto) (Negative) SARS-CoV-2, RNA, NAAT (NEGATIVE) 11/25/21 11/25/21 11/25/21 Range/Units 11:52 11:58 12:45 WBC (4.8-10.8) K/ul RBC (3.93-5.22) M/uL Hgb (12.0-16.0) g/dl Hct (34.1-44.9) % MCV (80.0-100.0) fL MCH (25.0-34.0) pg MCHC (32.0-36.0) g/dL RDW Std Deviation (36.4-46.3) fL RDW Coeff of Charlee (11.5-14.5) % Plt Count (130-400) K/uL MPV (9.4-12.3) fL Immature Gran % (Auto) % Neut % (Auto) % Lymph % (Auto) % [place] % (Auto) % Eos % (Auto) % Baso % (Auto) % Neut # (Auto) (1.4-6.5) K/uL Lymph # (Auto) (1.2-3.4) K/uL [place] # (Auto) (0.24-0.82) K/uL Eos # (Auto) (0-0.50) K/uL Baso # (Auto) (0-0.2) K/uL Immature Gran # (Auto) (0.00-0.02) K/uL Platelet Estimate (Normal) PT 13.2 H INR 1.3 H APTT 28.5 PTT Ratio 1.0 Sodium (136-145) mmol/L Potassium (3.5-5.1) mmol/L Chloride (98-107) mmol/L Carbon Dioxide (21-32) mmol/L Anion Gap (3-11) BUN (6-23) mg/dl Creatinine (0.6-1.2) mg/dl Est Cr Clr Drug Dosing ml/min Est GFR ( Amer) ml/min Est GFR (Non-Af Amer) ml/min BUN/Creatinine Ratio (10-20) Glucose (70-99(Fasting)) mg/dl Calcium (8.5-10.1) mg/dl Magnesium (1.7-2.4) mg/dl Total Bilirubin (0.2-1.0) mg/dl AST (13-39) U/L ALT (7-52) U/L Alkaline Phosphatase (34-104) U/L Ammonia 91.0 H (18-72) umol/L Troponin I High Sens (0-14) pg/ml Total Protein (6.0-8.3) gm/dl Albumin (3.4-5.0) gm/dl Globulin (2.5-4.0) gm/dl Albumin/Globulin Ratio (0.9-2) Urine Color Urine Appearance (Clear) Urine pH (4.5-7.5) Ur Specific [place] (1.000-1.030) Urine Protein (Negative) Urine Glucose (UA) (Negative) Urine Ketones (Negative) Urine Blood (Negative) Urine Nitrite (Negative) Urine Bilirubin (Negative) Urine Urobilinogen (Negative) Ur Leukocyte Esterase (Negative) Urine WBC (Auto) (0-5) /hpf Urine RBC (Auto) (0-4) /hpf U Hyaline Cast (Auto) (0-5) /lpf U Epithel Cells (Auto) (0-5) /lpf Urine Bacteria (Auto) (Negative) SARS-CoV-2, RNA, NAAT NEGATIVE (NEGATIVE) 11/25/21 Range/Units 14:33 WBC (4.8-10.8) K/ul RBC (3.93-5.22) M/uL Hgb (12.0-16.0) g/dl Hct (34.1-44.9) % MCV (80.0-100.0) fL MCH (25.0-34.0) pg MCHC (32.0-36.0) g/dL RDW Std Deviation (36.4-46.3) fL RDW Coeff of Charlee (11.5-14.5) % Plt Count (130-400) K/uL MPV (9.4-12.3) fL Immature Gran % (Auto) % Neut % (Auto) % Lymph % (Auto) % [place] % (Auto) % Eos % (Auto) % Baso % (Auto) % Neut # (Auto) (1.4-6.5) K/uL Lymph # (Auto) (1.2-3.4) K/uL [place] # (Auto) (0.24-0.82) K/uL Eos # (Auto) (0-0.50) K/uL Baso # (Auto) (0-0.2) K/uL Immature Gran # (Auto) (0.00-0.02) K/uL Platelet Estimate (Normal) PT INR APTT PTT Ratio Sodium (136-145) mmol/L Potassium (3.5-5.1) mmol/L Chloride (98-107) mmol/L Carbon Dioxide (21-32) mmol/L Anion Gap (3-11) BUN (6-23) mg/dl Creatinine (0.6-1.2) mg/dl Est Cr Clr Drug Dosing ml/min Est GFR ( Amer) ml/min Est GFR (Non-Af Amer) ml/min BUN/Creatinine Ratio (10-20) Glucose (70-99(Fasting)) mg/dl Calcium (8.5-10.1) mg/dl Magnesium (1.7-2.4) mg/dl Total Bilirubin (0.2-1.0) mg/dl AST (13-39) U/L ALT (7-52) U/L Alkaline Phosphatase (34-104) U/L Ammonia (18-72) umol/L Troponin I High Sens (0-14) pg/ml Total Protein (6.0-8.3) gm/dl Albumin (3.4-5.0) gm/dl Globulin (2.5-4.0) gm/dl Albumin/Globulin Ratio (0.9-2) Urine Color Dark Yellow Urine Appearance Clear (Clear) Urine pH 8.0 H (4.5-7.5) Ur Specific [place] 1.011 (1.000-1.030) Urine Protein Negative (Negative) Urine Glucose (UA) Negative (Negative) Urine Ketones Negative (Negative) Urine Blood Negative (Negative) Urine Nitrite Negative (Negative) Urine Bilirubin Negative (Negative) Urine Urobilinogen Negative (Negative) Ur Leukocyte Esterase Trace H (Negative) Urine WBC (Auto) 1-5 (0-5) /hpf Urine RBC (Auto) 0-4 (0-4) /hpf U Hyaline Cast (Auto) 1-5 (0-5) /lpf U Epithel Cells (Auto) >30 H (0-5) /lpf Urine Bacteria (Auto) Negative (Negative) SARS-CoV-2, RNA, NAAT (NEGATIVE) Administered Medications Morphine Sulfate (Morphine Sulfate 2 Mg/Ml Carp) 2 mg IV Q20M PRN PRN Reason: Pain Stop: 12/09/21 13:44 Last Admin: 11/25/21 13:49 Dose: 2 mg Documented By: KT Discontinued Medications Sodium Chloride (Nss) 500 mls @ 999 mls/hr IV .Q31M PRIMITIVO Stop: 11/25/21 12:15 Last Infusion: 11/25/21 13:09 Dose: 0 mls/hr Documented By: Admin: 11/25/21 11:39 Dose: 999 mls/hr Documented By: KT Magnesium Sulfate/Dextrose (Magnesium Sulfate / D5w) 1 gm in 100 mls @ 100 mls/hr IV Q1H PRIMITIVO Stop: 11/25/21 14:47 Last Infusion: 11/25/21 15:33 Dose: 0 mls/hr Documented By: Admin: 11/25/21 14:18 Dose: 100 mls/hr Documented By: Infusion: 11/25/21 14:10 Dose: 0 mls/hr Documented By: Admin: 11/25/21 13:07 Dose: 100 mls/hr Documented By: JAYDON Lactulose (Lactulose Syrup 20 Gm/30 Ml Udc) 20 gm PO NOW ONE Stop: 11/25/21 11:32 Last Admin: 11/25/21 13:07 Dose: 20 gm Documented By: JAYDON Ondansetron HCl (Ondansetron Inj 2 Mg/Ml 2 Ml Vial) 4 mg IV NOW STA Stop: 11/25/21 11:32 Last Admin: 11/25/21 11:39 Dose: 4 mg Documented By: JAYDON Imaging Data Radiologist's Impression: Chest X-Ray 11/25/21 11:31 XR chest 1V portable CLINICAL HISTORY: weakness TECHNIQUE: Single frontal radiograph of the chest was obtained. Comparison: Comparison is made to chest radiograph 11/04/2021 FINDINGS: No lines and tubes are seen. The cardiomediastinal silhouette is normal. The l ungs are clear. No evidence of pleural effusion or pneumothorax. IMPRESSION: No acute chest disease. ACT 112: Negative or not required by law. Electronically signed by: Kiel Cross M.D. 11/25/2021 12:42 PM KUB X-Ray 11/25/21 14:32 KUB HISTORY: Vomiting. b/l abdominal/groin pain, stone vs constipation COMPARISON: KUB 11/06/2021. FINDINGS: The bowel gas pattern is unremarkable. There are no dilated loops of small bowel to suggest an obstruction. No renal calculi. No ureteral calculi. Calcifications in the deep pelvis likely represent phleboliths. These remain unchanged. Prior cholecystectomy. Small to moderate amount well-formed stool within the colon. No pneumoperitoneum or pneumatosis. IMPRESSION: 1. Small to moderate amount of well-formed stool seen within the colon. This has improved in the interval. 2. No renal or ureteral calculi. 3. No evidence for bowel obstruction. ACT 112: Negative or not required by law. Electronically signed by: Ivan Veronica M.D. 11/25/2021 3:10 PM Discharge Plan Visit Data Chief Complaint: Syncope (Near Syncope) Stated Complaint: NEAR SYNCOPE ED Provider: Parveen Jarvis Discharge Problem: Weakness, Hypomagnesemia, Dehydration, Near syncope, Hyperammonemia Patient Disposition: Admitted As Inpatient Condition: Fair Forms Stand Alone Forms: [facility] [place] Prescriptions Prescriptions: No Action levothyroxine 100 mcg tablet 100 mcg PO Q2D Qty: 45 1RF Rx Instructions: 100 mcg PO every other day; alternate with 112 mcg lorazepam 1 mg tablet 1 mg PO TID PRN (Reason: Anxiety) paroxetine HCl 20 mg tablet 20 mg PO QAM valacyclovir 1 gram tablet 1 mg PO UD PRN (Reason: Cold Sores) Label Comments: NOT CURRENTLY USING phenazopyridine [Pyridium] 200 mg tablet 200 mg PO UD PRN (Reason: bladder pain) levothyroxine 112 mcg tablet 112 mcg PO Q2D Rx Instructions: 112 mcg PO every other day, alternate with 100 mcg. Take 1st thing in the morning on an empty stomach 30 min prior to any other oral intake. (VERIFIED PAT CALL 09/09/21) dulaglutide 3 mg/0.5 mL pen injector 3 mg subcut WK Label Comments: SUNDAYS Rx Instructions: Inject 3 mg subcut once weekly Wednesday cholestyramine-aspartame [Cholestyramine Light] 4 gram powder in packet 4 g PO BID PRN (Reason: .bloating) Label Comments: CURRENTLY ON HOLD ; LAST DOSE PROBABLY 5 WEEKS AGO magnesium oxide 400 mg magnesium tablet 400 mg PO BID Qty: 60 0RF hyoscyamine sulfate 0.125 mg tablet,disintegrating 0.125 mg PO QID omeprazole 40 mg Capsule,Delayed Release(Dr/Ec) 40 mg PO DAILY Xifaxan 550 mg Tablet 550 mg PO BID Qty: 60 0RF chlorthalidone 25 mg tablet 25 mg PO Q2D Qty: 30 0RF potassium chloride [Klor-Con M20] 20 mEq Tablet,Er Particles/Crystals 20 meq PO Q2D Qty: 60 0RF Rx Instructions: written as 2 lactulose 20 gram/30 mL Solution 20 g PO TID Qty: 1500 0RF Rx Instructions: prescribed 60 ml TID 11/20/21 tramadol 50 mg tablet 50 mg PO DAILY PRN (Reason: moderate pain) Qty: 15 0RF oxycodone 5 mg tablet 5 mg PO Q6H PRN (Reason: severe pain (scale score 7-10)) Qty: 10 0RF Women's 50 Plus Multivitamin 400 mcg-500 mg calcium-20 mcg Tablet 1 tab PO QAM zolpidem 5 mg tablet 5 mg PO HS PRN (Reason: insomnia) Qty: 0 0RF Klor-Con/EF 25 mEq tablet, effervescent 25 meq PO TID propranolol 20 mg tablet 20 mg PO TID Referrals Referrals: Reza Cid MD [Primary Care Provider] -
[2021-11-25] MEDS ORDERED: SODIUM CHLORIDE 0.9% 500 ML IV SCH (11:45)
[2021-11-25 12:09] LABS: Basophils # (auto) 0.02 K/uL (0-0.2); Basophils % (auto) 0.5 %; Eosinophils # (auto) 0.25 K/uL (0-0.50); Eosinophils % (auto) 6.8 %; Hematocrit (blood only) 31.5 % (34.1-44.9); Hemoglobin 11.1 g/dl (12.0-16.0); Immature Granulocytes # (auto) 0.01 K/uL (0.00-0.02); Immature Granulocytes % (auto) 0.3 %; Lymphocytes # (auto) 1.17 K/uL (1.2-3.4); Mean Platelet Volume 9.3 fL (9.4-12.3); Monocytes # (auto) 0.64 K/uL (0.24-0.82); Monocytes % (auto) 17.5 %; Neutrophils # (auto) 1.57 K/uL (1.4-6.5); Neutrophils % (auto) 42.9 %; Platelet Count 118 K/uL (130-400); White Blood Count 3.66 K/ul (4.8-10.8)
[2021-11-25 12:28] LABS: Troponin I High Sensitivity 6.6 pg/ml (0-14)
[2021-11-25 12:29] LABS: Albumin Globulin Ratio 1.8 (0.9-2); Albumin Level 3.5 gm/dl (3.4-5.0); Bilirubin,Total 5.3 mg/dl (0.2-1.0); Calcium 10.6 mg/dl (8.5-10.1); Creatinine Clr Calc Pharmacy 51.2 ml/min; Est GFR (Non-African American) 57.8 ml/min; Magnesium 1.4 mg/dl (1.7-2.4); Potassium 3.9 mmol/L (3.5-5.1); Total Protein 5.5 gm/dl (6.0-8.3)
[2021-11-25 12:32] LABS: Mean Corpuscular Hemoglobin 31.7 pg (25.0-34.0); Mean Corpuscular Hgb Conc 35.2 g/dL (32.0-36.0); Platelet Estimate Normal (Normal); RDW Standard Deviation 55.4 fL (36.4-46.3)
--- NOTE | 2021-11-25 12:43 | XRay Report ---
XR chest 1V portable CLINICAL HISTORY: weakness TECHNIQUE: Single frontal radiograph of the chest was obtained. Comparison: Comparison is made to chest radiograph 11/04/2021 FINDINGS: No lines and tubes are seen. The cardiomediastinal silhouette is normal. The lungs are clear. No evid ence of pleural effusion or pneumothorax. IMPRESSION: No acute chest disease. ACT 112: Negative or not required by law. Electronically signed by: Kiel Cross M.D. 11/25/2021 12:42 PM
[2021-11-25] MEDS: MAGNESIUM SULFATE / D5W 1 GM/100 ML BAG IV SCH ×2 (13:07→14:18)
[2021-11-25 13:40] LABS: INR 1.3 (0.9-1.1); Partial Thromboplastin Time 28.5 Seconds (21.0-31.0); Prothrombin Time 13.2 Seconds (9.0-12.0)
--- NOTE | 2021-11-25 13:46 | History & Physical Report ---
Date of Service November 25, 2021 Assessment & Plan (1) Hepatic encephalopathy: Plan: - Patient presented with concerns for confusion, lightheadedness, wobbliness on her feet for several days and has not had a BM in at least 2 days by her report. - Patient has a history of REBOLLAR cirrhosis, and an elevated ammonia of 91 today. Suspect her description of a near syncopal spell is related to her ammonia level more so than anything cardiac's, specifically dysrhythmia. She denies having any chest pain, vomiting, shortness of breath prior to the episode. - She states compliance with her lactulose regiment 3 times daily as well as Xifaxan - She has not had a bowel movement in 2 days despite taking her meds as prescribed. - We will continue lactulose, increase to 4 times daily and continue Xifaxan. - Goal is for 23 BMs daily. - Noncompliance has been an issue in the past as patient has not been able to tolerate the diarrhea from the lactulose. - She is afebrile and without an elevated WBC, however has a history of UTIs, as well as renal stones. UTI/nephrolithiasis could possibly contribute to her confusion weakness. - UA is pending, obtain KUB. (2) Hypercalcemia: Plan: - Calcium is 10.6, albumin 3.5. - Patient has history of elevated calcium as well as kidney stones. - Obtain KUB given she is complaining of bilateral flank pain. - Received 500 cc NSS in ED, continue LR at 125 cc/hour. - Holding chlorthalidone for now. - Renal function appears to be at baseline. - BMP daily. - Vitamin D/PTH checked on last admission: 25/25.6. - PTH related protein sent out last admission: 9. (3) Abdominal pain: Plan: - Pain is mild and mainly in the left upper and lower quadrant, but also complains of some intermittent bilateral low abdominal/groin pain. - Likely multifactorial, a combination of hyperammonemia, constipation, +/- UTI, nephrolithiasis. - UA pending, KUB ordered, - Lactulose and Xifaxan as above. - Providing Zofran, tramadol as needed for supportive care. He was prescribed oxycodone at home as needed, however will want to avoid this while patient is constipated and trying to have BM. (4) Moeller's esophagus with esophagitis: Plan: - Continue PPI, switch omeprazole to hospital formulary Protonix. (5) Diabetes mellitus, type 2: Plan: - Hold Trulicity. - 7 units Lantus BID with SSI. - A1c last month 6.4%. 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 All at/near baseline. - Ammonia elevated 91, treatment as above see #1. - Follows with [facility] [place], Dr. García and Africa Ulloa with [facility]. -Patient was previously enrolled with palliative services, however is possibly being considered for transplant. (7) Hypomagnesemia: Plan: - Magnesium is 1.4. - 2 g were ordered in ED, will order for 1 more gram to be given on unit. - Continue Mag-Ox 400 mg twice daily. (8) Anxiety and depression: Plan: - Continue home meds. Plan - Admit to med/telemetry for now given possible syncope, hypomagnesemia. - SCDs, Lovenox for VTE PPx. - DNR/DNI. History of Present Illness Chief Complaint: Confusion, dizziness, abdominal pain for several days Primary Care Provider: Reza Cid MD Aurelia Kurtz is a 66-year-old female with past medical history significant for end-stage liver disease, Moeller's esophagus, DM2, hypothyroidism, anxiety, and depression who presents today with near syncopal spell at home this afternoon. For the past several days, she has been more confused than usual and has been feeling lightheaded and wobbly on her feet. She does take lactulose 3 times daily, as well as Xifaxan. administers this and notes that she has been taking this regularly, 3 times daily over the past 2 or 3 days at least. Despite this, she has not had a bowel movement at least 2 days. She is having left-sided abdominal pain, as well as bilateral lower abdominal/flank pain. She has been taking mostly tramadol for the pain, but occasionally does take oxy codone, but says she really tries to avoid using this because she fears will make her constipated and does monitor the side effects of it. She has a history of chronic UTIs, and that her urine is intermittently orange, however has had no dysuria, hematuria, or other urinary symptoms. She feels that she is going a decent amount. At no point during her lightheaded/wobbly episodes that she had chest pain, shortness of breath, or palpitations. Upon presentation to the ED, vital signs within normal limits, she is hemodynamically stable. Labs significant for ammonia level 91, magnesium 1.4, calcium 10.6. Also notable is stable leukopenia, anemia, thrombocytopenia, 3.60/11.1/118 respectively. INR 1.3. T bili 5.3, AST 92, alk phos 124, all at/near her baseline from prior labs. Troponin 6.6, within normal limits and renal function at baseline. COVID-negative. Allergies Allergy/AdvReac Type Severity Reaction Status Date / Time bee venom protein (honey bee) Allergy Severe Anaphylaxis Verified 11/04/21 16:01 Influenza Virus Vaccines Allergy Severe Anaphylaxis Verified 11/04/21 16:01 tetracycline AdvReac Severe Severe Verified 11/04/21 16:01 stomach pains Home Medications Medication Instructions Recorded Confirmed Type paroxetine HCl 20 mg tablet 20 mg PO QAM 04/17/19 11/25/21 History valacyclovir 1 gram tablet 1 mg PO UD PRN Cold Sores 04/16/21 11/04/21 History lorazepam 1 mg tablet 1 mg PO TID PRN Anxiety 05/29/21 11/25/21 History lnprdzia-hid-xcans ac 400 1 tab PO QAM 07/15/21 11/25/21 History mcg-calcium carb 500 mg-vit K1 20 mcg tablet (Women's 50 Plus Multivitamin) zolpidem 5 mg tablet 5 mg PO HS PRN insomnia #0 tabs 07/20/21 11/04/21 Rx dulaglutide 3 mg/0.5 mL 3 mg subcut WK 09/09/21 11/25/21 History subcutaneous pen injector levothyroxine 112 mcg tablet 112 mcg PO Q2D 09/09/21 11/25/21 History phenazopyridine 200 mg tablet 200 mg PO UD PRN bladder pain 09/09/21 11/04/21 History (Pyridium) cholestyramine-aspartame 4 gram 4 g PO BID PRN .bloating 10/21/21 11/25/21 History oral powder for susp in a packet (Cholestyramine Light) magnesium oxide 400 mg PO BID #60 tabs 10/24/21 11/25/21 Rx levothyroxine 100 mcg tablet 100 mcg PO Q2D #45 tabs 10/27/21 11/25/21 Rx hyoscyamine sulfate 0.125 mg 0.125 mg PO QID 11/04/21 11/25/21 History disintegrating tablet omeprazole 40 mg capsule,delayed 40 mg PO DAILY 11/04/21 11/25/21 History release chlorthalidone 25 mg tablet 25 mg PO Q2D #30 tabs 11/07/21 11/25/21 Rx lactulose 20 gram/30 mL oral 20 g (30 mL) PO TID #1,500 mL 11/07/21 11/25/21 Rx solution oxycodone 5 mg tablet 5 mg PO Q6H PRN severe pain (scale 11/07/21 11/25/21 Rx score 7-10) #10 tabs potassium chloride 20 mEq 20 meq PO Q2D #60 tabs 11/07/21 11/04/21 Rx tablet,extended release(part/cryst) (Klor-Con M) rifaximin 550 mg tablet (Xifaxan) 550 mg PO BID #60 tabs 11/07/21 11/25/21 Rx tramadol 50 mg tablet 50 mg PO DAILY PRN moderate pain 11/07/21 11/25/21 Rx #15 tabs potassium bicarbonate-citric acid 25 meq PO TID 11/25/21 11/25/21 History 25 mEq effervescent tablet (Klor-Con/EF) propranolol 20 mg tablet 20 mg PO TID 11/25/21 11/25/21 History Past Med/Surg History Medical History Anemia HX Arthritis Moeller's esophagus with esophagitis Chronic diarrhea SOMETIMES Depression Diabetes mellitus, type 2 Diverticulitis of sigmoid colon Diverticulosis GERD (gastroesophageal reflux disease) GI bleed RECENT HOSPITALIZED - PT DENIES HX GI BLEED Heel spur B/L feet Hiatal hernia History of colon polyps BENIGN History of fractured vertebra CURRENT, HX FALL JULY 2021 - FELL OF THE TOILET - NO INTERVENTION AT PRESENT/ [facility] FOR TO DISCUSS TX OPTIONS - POTENTIAL BACK BRACE History of kidney stones Hyperlipidemia Hypertension NO CURRENT MEDS 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) Spleen enlarged MONITORS - PT REPORTS FROM THE REBOLLAR Stucco keratoses Temporomandibular joint disorder NO LOCKING/WEARS POT FLUXER Thyroid disease UTI (urinary tract infection) HX, JULY 2021 -HOSPITALIZED FOR , NOW RESOLVED DURING TESTING FOUND 2 LUMPS IN INTESTINES...REASON FOR UPCOMING COLONOSCOPY Surgical History H/O thumb surgery RT/LEFT JOINT REPAIR H/O total hysterectomy History of appendectomy History of arthroscopy of knee Left Knee - meniscus/cartilage History of colonoscopy History of cystoscopy History of esophagogastroduodenoscopy (EGD) History of tonsillectomy and adenoidectomy History of tooth extraction Hx of cholecystectomy Family History Brother Coronary heart disease Heart disease Mother Family history of diabetes mellitus Hypertension Heart disease Sister Family history of diabetes mellitus Son Family history of diabetes mellitus Father Family hx of colon cancer Hearing loss Hypertension Cancer Heart disease Grandfather (Maternal) Family hx of colon cancer Other No family history of adverse response to anesthesia No family history of bleeding disorder Social History Smoking Status: Never smoker Second Hand Exposure: No; Hx Alcohol Use: No Hx Substance Use: No Preferred Language: Turkmen Communication Ability: Effective Math Teacher Required: No Beliefs That Will Affect Care: None marital status: Current Living Situation: Spouse Current Living Situation Comment: and sister current occupational status: employed and retired How many Children do You have: 0 Feels Safe at Home: Yes Assistive Devices: Cane Review of Systems Review of Systems: Constitutional: Reports general weakness, lightheadedness; no fever/chills, fatigue, myalgias, anorexia, night sweats Eyes: No diplopia, no worsening or blurred vision ENT: normal hearing, no trouble swallowing Respiratory: No cough, sputum, dyspnea at rest or on exertion Cardiovascular: No chest pain, tightness or palpitations Abdomen: Left-sided abdominal pain and bilateral lower groin pain, nausea, constipation without BM for 2 days; denies diarrhea, melena, hematochezia, vomiting : Intermittent orange urine, which is unchanged for several months per patient; denies dysuria, hematuria, increased urgency/frequency, urinary retention Musculoskeletal: No joint pain, calf pain, swelling Neurologic: No weakness, numbness/tingling, or balance problems Psychiatric: No anxiety or depression Skin: No rash or itch Physical Exam Physical Exam: General: awake, alert, no apparent distress Head: Normocephalic, atraumatic ENT: Icteric; PERRL, EOMI, no pharyngeal exudate, mucous membranes dry Chest: Clear to auscultation, on room air, no adventitious breath sounds Cardiac: Regular rate and rhythm, no murmur, no JVD, normal peripheral pulses, good capillary refill Abdominal: TTP in left upper and lower quadrant without rebound or guarding; NABS x 4 quadrants, soft Extremities: Normal inspection, no peripheral edema or erythema, calfs nontender to palpation Psych: Normal mood and affect Neuro: AAO x 3, strength intact bilaterally and rated 5/5, no motor deficits, speech is clear, no peripheral sensory deficits Skin: Mild jaundice with icterus Results & Data Results & Data ([facility]) Vital Signs (Past 12 Hours) Vital Signs Temp Pulse Pulse Resp BP BP Pulse Ox 11/25/21 13:10 79 18 126/64 93 11/25/21 12:04 78 20 97 11/25/21 11:44 37.2 C 79 20 144/63 H 97 Laboratory Results Abnormal lab results 11/25/21 11/25/21 11/25/21 Range/Units 11:31 11:31 11:52 WBC 3.66 L (4.8-10.8) K/ul RBC 3.50 L (3.93-5.22) M/uL Hgb 11.1 L (12.0-16.0) g/dl Hct 31.5 L (34.1-44.9) % RDW Std Deviation 55.4 H (36.4-46.3) fL RDW Coeff of Charlee 17.0 H (11.5-14.5) % Plt Count 118 L (130-400) K/uL MPV 9.3 L (9.4-12.3) fL Lymph # (Auto) 1.17 L (1.2-3.4) K/uL PT (9.0-12.0) Seconds INR (0.9-1.1) Sodium 135 L (136-145) mmol/L Glucose 154 H (70-99(Fasting)) mg/dl Calcium 10.6 H (8.5-10.1) mg/dl Magnesium 1.4 L (1.7-2.4) mg/dl Total Bilirubin 5.3 H (0.2-1.0) mg/dl AST 92 H (13-39) U/L Alkaline Phosphatase 124 H (34-104) U/L Ammonia 91.0 H (18-72) umol/L Total Protein 5.5 L (6.0-8.3) gm/dl Globulin 2.0 L (2.5-4.0) gm/dl Urine pH (4.5-7.5) Ur Leukocyte Esterase (Negative) U Epithel Cells (Auto) (0-5) /lpf 11/25/21 11/25/21 Range/Units 12:45 14:33 WBC (4.8-10.8) K/ul RBC (3.93-5.22) M/uL Hgb (12.0-16.0) g/dl Hct (34.1-44.9) % RDW Std Deviation (36.4-46.3) fL RDW Coeff of Charlee (11.5-14.5) % Plt Count (130-400) K/uL MPV (9.4-12.3) fL Lymph # (Auto) (1.2-3.4) K/uL PT 13.2 H (9.0-12.0) Seconds INR 1.3 H (0.9-1.1) Sodium (136-145) mmol/L Glucose (70-99(Fasting)) mg/dl Calcium (8.5-10.1) mg/dl Magnesium (1.7-2.4) mg/dl Total Bilirubin (0.2-1.0) mg/dl AST (13-39) U/L Alkaline Phosphatase (34-104) U/L Ammonia (18-72) umol/L Total Protein (6.0-8.3) gm/dl Globulin (2.5-4.0) gm/dl Urine pH 8.0 H (4.5-7.5) Ur Leukocyte Esterase Trace H (Negative) U Epithel Cells (Auto) >30 H (0-5) /lpf Diagnostic Findings Chest X-Ray 11/25/21 11:31 XR chest 1V portable CLINICAL HISTORY: weakness TECHNIQUE: Single frontal radiograph of the chest was obtained. Comparison: Comparison is made to chest radiograph 11/04/2021 FINDINGS: No lines and tubes are seen. The cardiomediastinal silhouette is normal. The lungs are clear. No evidence of pleural effusion or pneumothorax. IMPRESSION: No acute chest disease. ACT 112: Negative or not required by law. Electronically signed by: Kiel Cross M.D. 11/25/2021 12:42 PM ECG Additional Comments: Normal sinus rhythm Moderate voltage criteria for LVH, may be normal variant Borderline ECG When compared with ECG of 04-NOV-2021 12:32, No significant change was found. Code Status & VTE Plan Code Status DNR/DNI. Supervising Physician Co-Signing Physician Notes Patient seen and examined, chart reviewed, and case discussed with Lalita Guillory PA-C. I agree with the assessment and plan except as otherwise noted. 66 yo F Hx REBOLLAR cirrhosis, Moeller's esophagus, DM2, hypothyroidism, anxiety, and depression presented for 2 days of confusion, lower abdominal pain, lightheadedness, gait instability in the setting of no BM for two days despite taking lactulose TID. Hyperammonemia of 91 today. No evidence of infectious process such as elevated WBC count, fever. KUB without obstruction but with moderate stool burden. Exam: Patient is well developed well nourished in no acute distress, heart RRR no murmurs, lungs CTA bilaterally. Abdomen is soft, mildly tender in LLQ, without rebound or guarding, and no evidence of ascites. Patient is alert and oriented x3 in room at time of interview. Plan: hepatic encephalopathy: increase lactulose to q6h, and continue Rifaximin; ultimately need to get patient having bowel movements in order to improve her hyperammonemia. REBOLLAR cirrhosis: care of hepatic encephalopathy as above. No evidence of SBP at this time. abdominal pain: suspect secondary to constipation; see above. KUB without obstruction. Consider CTAP if infectious signs present themselves and/or if symptoms not improving with bowel movement. hypercalcemia: Hx of; on chlorthalidone which we will hold. Repeat BMP tomorrow. PTH previously normal. Vit D normal. PG Care Time/CCT Total # of Minutes Spent Total Time Spent with Patient: Total time spent is greater than 50% in coordination of care (as documented) at patient's floor/unit and/or counseling patient: Coding Level of Care Code 83239 Initial Inpt Care Lvl 3 Diagnoses Hepatic encephalopathy K72.90 Hypercalcemia E83.52 Abdominal pain R10.9 Moeller's esophagus with esophagitis K22.70; K20.9 Diabetes mellitus, type 2 E11.9 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 Hypomagnesemia E83.42 Anxiety and depression F41.9; F32.9
[2021-11-25] MEDS: MoRPHine SULFATE 2 MG/ML CARP IV PRN ×3 (13:49→20:31)
--- NOTE | 2021-11-25 14:15 | Electrocardiogram Report ---
Test Reason : Blood Pressure : / mmHG Vent. Rate : 079 BPM Atrial Rate : 079 BPM P-R Int : 152 ms QRS Dur : 084 ms QT Int : 396 ms P-R-T Axes : 033 -11 010 degrees QTc Int : 454 ms Normal sinus rhythm Moderate voltage criteria for LVH, may be normal variant Borderline ECG When compared with ECG of 04-NOV-2021 12:32, No significant change was found Confirmed by Reza Webster ([id number]) on 11/25/2021 2:15:41 PM Referred By: REFERRED SELF Confirmed By:Reza Webster
[2021-11-25 14:53] LABS: Appearance Urine Clear (Clear); Bacteria Urine Automated Negative (Negative); Bilirubin Urine Negative (Negative); Blood Urine Negative (Negative); Color Urine Dark Yellow; Epithelial Cell Urine Auto >30 /lpf (0-5); Glucose Urine UA Negative (Negative); Ketones Urine Negative (Negative); Leukocyte Esterase Urine Trace (Negative); Nitrite Urine Negative (Negative); Protein Urine Negative (Negative); RBC Urine Automated 0-4 /hpf (0-4); Specific Gravity Urine 1.011 (1.000-1.030); Urobilinogen Urine Negative (Negative)
--- NOTE | 2021-11-25 15:11 | XRay Report ---
KUB HISTORY: Vomiting. b/l abdominal/groin pain, stone vs constipation COMPARISON: KUB 11/06/2021. FINDINGS: The bowel gas pattern is unremarkable. There are no dilated loops of small bowel to suggest an obstruction. No renal calculi. No ureteral calculi. Calcifications in the deep pelvis likely rep resent phleboliths. These remain unchanged. Prior cholecystectomy. Small to moderate amount well-form ed stool within the colon. No pneumoperitoneum or pneumatosis. IMPRESSION: 1. Small to moderate amount of well-formed stool seen within the colon. This has improved in the inte rval. 2. No renal or ureteral calculi. 3. No evidence for bowel obstruction. ACT 112: Negative or not required by law. Electronically signed by: Ivan Veronica M.D. 11/25/2021 3:10 PM
[2021-11-25] MEDS: LACTATED RINGER'S 1,000 ML IV SCH (16:12)
[2021-11-25] MEDS ORDERED: GLUCAGON FOR INJ 1 MG VIAL SQ PRN (16:57)
[2021-11-25] MEDS ORDERED: MAGNESIUM SULFATE / D5W 1 GM/100 ML BAG IV ONE (16:57)
[2021-11-25] MEDS ORDERED: CARBOHYDRATES FOR HYPOGLYCEMIA PO PRN (16:57)
[2021-11-25] MEDS ORDERED: GLUCOSE 40% GEL 15 GM TUBE PO PRN (16:57)
[2021-11-25] MEDS ORDERED: GLUCOSE 10 TAB/TUBE PO PRN (16:57)
[2021-11-25] MEDS ORDERED: POLYETHYLENE (MIRALAX) 17 GM PACK PO PRN (16:57)
[2021-11-25] MEDS ORDERED: DEXTROSE 50% 50 ML SYRINGE IV PRN (16:57)
[2021-11-25] MEDS ORDERED: PHENAZOPYRIDINE HCL 200 MG TAB PO PRN (16:57)
[2021-11-25] MEDS ORDERED: ONDANSETRON INJ 2 MG/ML 2 ML VIAL IV PRN (16:57)
[2021-11-25] MEDS ORDERED: LORazepam 1 MG TAB PO PRN (16:57)
[2021-11-25] MEDS: HYOSCYAMINE SULFATE 0.125 MG TAB PO SCH ×2 (17:46→20:32)
[2021-11-25] MEDS: LACTULOSE SYRUP 20 GM/30 ML UDC PO SCH ×2 (18:03→20:31)
[2021-11-25] MEDS: INSULIN ASPART PER UNIT SC SCH ×2 (18:27→20:41)
[2021-11-25] MEDS: rifAXIMin 550 MG TABLET PO SCH (20:31)
[2021-11-25] MEDS: ENOXAPARIN INJ 40 MG/0.4 ML SYR SQ SCH (20:31)
[2021-11-25] MEDS: PROPRANOLOL HCL 20 MG TAB PO SCH (20:31)
[2021-11-25] MEDS: MAGNESIUM OXIDE 400 MG TAB PO SCH (20:32)
[2021-11-25] MEDS: POTASSIUM CHLORIDE CRTAB 20 MEQ TABCR PO SCH (20:32)
[2021-11-25] MEDS: LANTUS PER UNIT CHARGE SQ SCH (20:42)
[2021-11-26] MEDS: LACTATED RINGER'S 1,000 ML IV SCH ×3 (01:22→17:29)
[2021-11-26 06:26] LABS: Basophils # (auto) 0.02 K/uL (0-0.2); Basophils % (auto) 0.5 %; Eosinophils # (auto) 0.19 K/uL (0-0.50); Eosinophils % (auto) 4.3 %; Immature Granulocytes # (auto) 0.02 K/uL (0.00-0.02); Immature Granulocytes % (auto) 0.5 %; Lymphocytes # (auto) 1.01 K/uL (1.2-3.4); Lymphocytes % (auto) 22.9 %; Mean Platelet Volume 9.4 fL (9.4-12.3); Monocytes # (auto) 0.72 K/uL (0.24-0.82); Monocytes % (auto) 16.3 %; Neutrophils # (auto) 2.45 K/uL (1.4-6.5); Neutrophils % (auto) 55.5 %; Platelet Count 103 K/uL (130-400); White Blood Count 4.41 K/ul (4.8-10.8)
[2021-11-26 06:32] LABS: INR 1.3 (0.9-1.1); Prothrombin Time 13.3 Seconds (9.0-12.0)
[2021-11-26 06:33] LABS: Albumin Globulin Ratio 1.7 (0.9-2); Albumin Level 3.1 gm/dl (3.4-5.0); BUN Creatinine Ratio 7.2 (10-20); Bilirubin,Total 4.7 mg/dl (0.2-1.0); Calcium 10.2 mg/dl (8.5-10.1); Creatinine Clr Calc Pharmacy 45.8 ml/min; Est GFR (African American) 59.1 ml/min; Globulin 1.8 gm/dl (2.5-4.0); Magnesium 1.5 mg/dl (1.7-2.4); Potassium 3.8 mmol/L (3.5-5.1); Total Protein 4.9 gm/dl (6.0-8.3)
--- NOTE | 2021-11-26 06:45 | Hospitalist Progress Note ---
Date of Service November 26, 2021 Assessment & Plan (1) Hepatic encephalopathy: Plan: 66 yo F Hx REBOLLAR cirrhosis, Moeller's esophagus, pancytopenia, DM2, hypothyroidism, anxiety, and depression admitted for hepatic encephalopathy in the setting of constipation x2 days and noted on admission to have hypercalcemia. - Patient has a history of REBOLLAR cirrhosis, and an elevated ammonia of 91 on admission. - Patient presented with concerns for confusion, lightheadedness, unsteadiness on her feet for several days in the setting of not having had a BM for two days. - She states compliance with her lactulose regiment 3 times daily as well as Xifaxan. - She has not had a bowel movement in 2 days despite taking her meds as prescribed. - We will continue lactulose, increased to 4 times daily and continue Xifaxan. - Patient has had 2 BMs today after receiving lactulose enema. - Goal is for 23 BMs daily. - She is afebrile and without an elevated WBC. No evidence of UTI on UA. KUB with moderate stool burden without impaction or ileus. (2) Abdominal pain: Plan: - Pain in LLQ, suspected to be due to constipation. - Lactulose and Xifaxan as above. - UA and KUB results as above. - Zofran and tramadol as needed for supportive care. (3) Hypercalcemia: Plan: - Patient has history of elevated calcium as well as kidney stones. - Received 500 cc NSS in ED, with LR at 125 cc/hour. - Calcium 10.6 -> 10.2 with IV fluids. - Continue to hold chlorthalidone for now. - Renal function at baseline. - Vitamin D/PTH checked on last admission: 25/25.6. - PTH related protein sent out last admission: 9. - Daily BMP while admitted. (4) Moeller's esophagus with esophagitis: Plan: - Continue PPI. (5) Diabetes mellitus, type 2: Plan: - A1c last month 6.4%. - Hold Trulicity. - 7 units Lantus BID with SSI. 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 All at/near baseline. - Ammonia elevated 91 on admission, treatment as above see #1. - [place] [facility], Dr. García and Africa Ulloa with [facility]. - Patient was previously enrolled with palliative services, however is possibly being considered for transplant. (7) Hypomagnesemia: Plan: - Magnesium is 1.4. - Has received a total of 3g IV Mag since admission. Will give another 2g IV. - Continue Mag-Ox 400 mg twice daily. (8) Pancytopenia: Plan: - Chronic problem, stable. - Admission Hgb 11.1, WBC 3.66, Plts 118; all levels near baseline. - Daily CBC while admitted. (9) Anxiety and depression: Plan: - Continue home meds. Plan - SCDs, Lovenox for VTE PPx. - DNR/DNI. - Dispo: Med/Tele Admission and Anticipated Discharge Date Admission Date: November 25, 2021 Subjective Patient without acute events overnight. Still with complaints of LLQ abdominal pain, no worse than yesterday. Still no BM despite lactulose 20g PO q6h x1 day. Did have two large loose brown BMs after receiving a lactulose enema. No chest pain or SOB. Review of Systems Constitutional: no fever, no chills and no malaise Eyes: no blind spots and no diplopia Respiratory: no cough and no dyspnea Cardiovascular: no chest pain, no palpitations and no edema Gastrointestinal: no abdominal pain Psychiatric: no behavioral changes and no confusion Physical Exam Constitutional: well developed and well nourished; no acute distress Eyes: scleral icterus noted Respiratory: normal respiratory effort, lungs clear to auscultation Cardiovascular: RRR, no murmur, no edema Gastrointestinal (Abdomen): Normal bowel sounds, abdomen soft with mild tenderness to palpation in LLQ without rebound or guarding Skin: no rashes, warm and dry Neurologic: Normal speech. No tremor. No ataxia. Psychiatric: A+Ox3, euthymic affect Results & Data Results & Data ([facility]) Vital Signs (Past 12 Hours) Vital Signs Temp Pulse Pulse Resp BP Pulse Ox O2 Del Method 11/26/21 03:22 36.7 C 85 18 103/62 91 Room Air 11/26/21 01:45 77 11/25/21 22:28 36.5 C 79 19 110/55 L 97 Room Air 11/25/21 19:00 36.8 C 80 18 111/56 L 95 Room Air PG Care Time/CCT Total # of Minutes Spent Total Time Spent with Patient: Total time spent is greater than 50% in coordination of care (as documented) at patient's floor/unit and/or counseling patient: Coding Level of Care Code 40059 Subseq Hosp Care Lvl 3 Diagnoses Hepatic encephalopathy K72.90 Abdominal pain R10.9 Hypercalcemia E83.52 Moeller's esophagus with esophagitis K22.70; K20.9 Diabetes mellitus, type 2 E11.9 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 Hypomagnesemia E83.42 Pancytopenia D61.818 Anxiety and depression F41.9; F32.9
[2021-11-26] MEDS: LEVOTHYROXINE SODIUM 100 MCG TABLET PO SCH (06:46)
[2021-11-26 06:59] LABS: Mean Corpuscular Hemoglobin 31.2 pg (25.0-34.0); Mean Corpuscular Hgb Conc 34.5 g/dL (32.0-36.0); Mean Corpuscular Volume 90.3 fL (80.0-100.0); RDW Coefficient of Variation 16.4 % (11.5-14.5); RDW Standard Deviation 54.5 fL (36.4-46.3); Red Blood Count 3.21 M/uL (3.93-5.22)
[2021-11-26] MEDS: LANTUS PER UNIT CHARGE SQ SCH ×2 (08:17→21:14)
[2021-11-26] MEDS: INSULIN ASPART PER UNIT SC SCH ×4 (08:17→21:03)
[2021-11-26] MEDS: LACTULOSE SYRUP 20 GM/30 ML UDC PO SCH ×2 (08:18→12:26)
[2021-11-26] MEDS: PANTOprazole 40 MG TAB PO SCH (08:19)
[2021-11-26] MEDS: MULTIVITAMIN TAB PO SCH (08:19)
[2021-11-26] MEDS: PROPRANOLOL HCL 20 MG TAB PO SCH ×3 (08:19→21:16)
[2021-11-26] MEDS: PARoxetine HCL 20 MG TAB PO SCH (08:19)
[2021-11-26] MEDS: HYOSCYAMINE SULFATE 0.125 MG TAB PO SCH ×4 (08:19→21:17)
[2021-11-26] MEDS: rifAXIMin 550 MG TABLET PO SCH ×2 (08:19→21:16)
[2021-11-26] MEDS: MAGNESIUM OXIDE 400 MG TAB PO SCH ×2 (08:19→21:17)
[2021-11-26] MEDS: POTASSIUM CHLORIDE CRTAB 20 MEQ TABCR PO SCH ×3 (08:20→21:16)
[2021-11-26] MEDS: traMADol HCL 50 MG TABLET PO PRN (08:32)
[2021-11-26] MEDS ORDERED: LACTULOSE 200GM/700ML WTR ENEMA PR SCH (10:30)
[2021-11-26] MEDS ORDERED: LACTULOSE 200GM/700ML WTR ENEMA PR ONE (11:00)
[2021-11-26] MEDS: SIMETHICONE 80 MG CHEW PO PRN ×2 (11:04→21:14)
[2021-11-26] MEDS: MAGNESIUM SULFATE / D5W 1 GM/100 ML BAG IV SCH ×2 (15:34→17:27)
[2021-11-26] MEDS: MoRPHine SULFATE 2 MG/ML CARP IV PRN ×2 (15:53→22:53)
[2021-11-26] MEDS ORDERED: OPTIRAY 300 100mL IV ONE (20:25)
[2021-11-26] MEDS: ENOXAPARIN INJ 40 MG/0.4 ML SYR SQ SCH (21:17)
--- NOTE | 2021-11-26 21:44 | CT Scan Report ---
CT abd pelvis IV con only CLINICAL HISTORY: abdominal pain TECHNIQUE: Helical axial images of the abdomen and pelvis were obtained and displayed. Automated dose lowering techniques and/or adjustment according to patient size were utilized for this exam. This e xam was performed with intravenous contrast. CT DOSE: 439.53 mGy.cm COMPARISON: None available at the time of this dictation. FINDINGS: Lower chest: No acute abnormality Liver: Nodular contour of the liver is seen compatible with cirrhosis. Gallbladder and biliary tree: Patient is status post cholecystectomy. Physiologic prominence of the b iliary ducts is noted. Pancreas: Unremarkable, no focal lesions. Spleen: Splenomegaly is noted, the spleen measures 15 mm. Adrenals: Unremarkable. Kidneys and ureters: Unremarkable. Bladder: Limited evaluation due to underdistention. Reproductive organs: Unremarkable. Bowel: Diverticulosis is seen without evidence of diverticulitis. Liquid contents are seen in the col on. Fat stranding is seen in the right greater than left paracolic gutter. The appendix is normal. A duodenal diverticulum is seen. Lymph nodes Retroperitoneal: Unremarkable. Pelvic: Unremarkable. Mesenteric: Unremarkable. Peritoneum: Normal. Vessels: Atherosclerotic calcifications are seen. Abdominal wall: Unremarkable. Bones: Degenerative changes in the visualized spine. There is a compression deformity in L4. IMPRESSION: 1. Fluid contents are seen in the colon. There is fat stranding in the ascending and descending colo n compatible with infectious/inflammatory colitis with diarrhea. No evidence of appendicitis. 2. Diverticulosis without evidence of diverticulitis. 3. Unchanged compression deformity of L4. ACT 112: Negative or not required by law. Electronically signed by: Kiel Cross M.D. 11/26/2021 9:42 PM
[2021-11-27] MEDS: LACTATED RINGER'S 1,000 ML IV SCH ×2 (01:14→09:55)
[2021-11-27] MEDS: LEVOTHYROXINE SODIUM 112 MCG TABLET PO SCH (06:08)
[2021-11-27 07:58] LABS: INR 1.3 (0.9-1.1); Prothrombin Time 13.5 Seconds (9.0-12.0)
[2021-11-27] MEDS ORDERED: PIPERACILLIN/TAZOBACTAM 3.375 GM in DEXTROSE 5% 100 ML IV ONE (08:00)
[2021-11-27 08:08] LABS: Hematocrit (blood only) 27.3 % (34.1-44.9); Hemoglobin 9.3 g/dl (12.0-16.0); Mean Corpuscular Hemoglobin 31.4 pg (25.0-34.0); Mean Corpuscular Hgb Conc 34.1 g/dL (32.0-36.0); Mean Corpuscular Volume 92.2 fL (80.0-100.0); Mean Platelet Volume 8.6 fL (9.4-12.3); Platelet Count 103 K/uL (130-400); RDW Coefficient of Variation 16.5 % (11.5-14.5); Red Blood Count 2.96 M/uL (3.93-5.22); White Blood Count 2.56 K/ul (4.8-10.8)
[2021-11-27 08:20] LABS: Albumin Globulin Ratio 1.8 (0.9-2); Albumin Level 2.9 gm/dl (3.4-5.0); BUN Creatinine Ratio 7.1 (10-20); Creatinine Clr Calc Pharmacy 53.1 ml/min; Est GFR (African American) 68.7 ml/min; Est GFR (Non-African American) 59.3 ml/min; Globulin 1.6 gm/dl (2.5-4.0); Potassium 3.6 mmol/L (3.5-5.1); Total Protein 4.5 gm/dl (6.0-8.3)
[2021-11-27 08:37] LABS: Basophils # (auto) 0.01 K/uL (0-0.2); Basophils % (auto) 0.4 %; Eosinophils # (auto) 0.17 K/uL (0-0.50); Eosinophils % (auto) 6.6 %; Immature Granulocytes # (auto) 0.01 K/uL (0.00-0.02); Immature Granulocytes % (auto) 0.4 %; Lymphocytes # (auto) 0.97 K/uL (1.2-3.4); Lymphocytes % (auto) 37.9 %; Monocytes # (auto) 0.48 K/uL (0.24-0.82); Monocytes % (auto) 18.8 %; Neutrophils # (auto) 0.92 K/uL (1.4-6.5); Neutrophils % (auto) 35.9 %
[2021-11-27] MEDS: INSULIN ASPART PER UNIT SC SCH ×4 (09:20→21:02)
[2021-11-27] MEDS: HYOSCYAMINE SULFATE 0.125 MG TAB PO SCH ×4 (09:23→20:51)
[2021-11-27] MEDS: LANTUS PER UNIT CHARGE SQ SCH ×2 (09:23→21:01)
[2021-11-27] MEDS: MAGNESIUM OXIDE 400 MG TAB PO SCH ×2 (09:24→20:53)
[2021-11-27] MEDS: LACTULOSE SYRUP 20 GM/30 ML UDC PO SCH (09:24)
[2021-11-27] MEDS: PARoxetine HCL 20 MG TAB PO SCH (09:25)
[2021-11-27] MEDS: PANTOprazole 40 MG TAB PO SCH (09:25)
[2021-11-27] MEDS: MULTIVITAMIN TAB PO SCH (09:25)
[2021-11-27] MEDS: POTASSIUM CHLORIDE CRTAB 20 MEQ TABCR PO SCH ×3 (09:26→20:52)
[2021-11-27] MEDS: PROPRANOLOL HCL 20 MG TAB PO SCH ×3 (09:27→20:53)
[2021-11-27] MEDS: rifAXIMin 550 MG TABLET PO SCH ×2 (09:27→20:51)
[2021-11-27] MEDS: traMADol HCL 50 MG TABLET PO PRN (09:29)
--- NOTE | 2021-11-27 10:27 | Hospitalist Progress Note ---
Date of Service November 27, 2021 Assessment & Plan (1) Neutropenic typhlitis: Plan: 66 yo F Hx REBOLLAR cirrhosis, Moeller's esophagus, pancytopenia, DM2, hypothyroidism, anxiety, and depression admitted for hepatic encephalopathy and hypercalcemia, and now being treated for typhlitis. Neutropenic colitis: - Presented with abdominal pain, initially thought to be secondary to constipation x2 days on admission. - With continued abdominal pain yesterday despite several bowel movements. - CTAP shows infectious/inflammatory colitis. - Today developed unexplained neutropenia, therefore will treat as typhlitis. - Zosyn 4.5g q8h to start today, with daily CBC. - Biofire stool and C. diff ordered. (2) Hepatic encephalopathy: Plan: - Patient has a history of REBOLLAR cirrhosis, and an elevated ammonia of 91 on admission. - Patient presented with concerns for confusion, lightheadedness, unsteadiness on her feet for several days in the setting of not having had a BM for two days. - She states compliance at home with her lactulose regiment 3 times daily as well as Xifaxan. - With several BMs yesterday after lactulose enema. Can resume lactulose at BID dosing today, with goal of 2-3 BMs daily. - Continue Xifaxin. - No evidence of UTI on UA. KUB with moderate stool burden without impaction or ileus. - Ammonia level decreased from 91 -> 70 with lactulose. (3) Abdominal pain: Plan: - Pain in LLQ, initially suspected to be due to constipation, but in some part likely due to colitis. - Lactulose and Xifaxan as above. - Tx of typhlitis as above. - Zofran and tramadol as needed for supportive care. (4) Hypercalcemia: Plan: - Patient has history of elevated calcium as well as kidney stones. - Received 500 cc NSS in ED, with LR at 125 cc/hour. - Calcium 10.6 -> 10.0 with IV fluids. - Continue to hold chlorthalidone for now. - Renal function at baseline. - Vitamin D/PTH checked on last admission: 25/25.6. - PTH related protein sent out last admission: 9. - Daily BMP while admitted. (5) Moeller's esophagus with esophagitis: Plan: - Continue PPI. (6) Diabetes mellitus, type 2: Plan: - A1c last month 6.4%. - Hold Trulicity. - 7 units Lantus BID with SSI. (7) 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: Plan: - Platelets 118, INR 1.3, sodium 135, T bili 5.3, AST 92, ALT 52, Alk phos 124. All at/near baseline. - Ammonia elevated 91 on admission, treatment as above see #2. - Follows with [facility] [place] Hepatology, Dr. García and Africa Ulloa with [facility]. - Patient was previously enrolled with palliative services, however is possibly being considered for transplant. (8) Hypomagnesemia: Plan: - Improved with IV and oral supplementation. (9) Pancytopenia: Plan: - Chronic problem, with new neutropenia this morning. - Admission Hgb 11.1, WBC 3.66, Plts 118. - Daily CBC while admitted. - Typhlitis treatment as above. (10) Anxiety and depression: Plan: - Continue home meds. Plan Code Status: DNR/DNI FEN: Regular DVT ppx: Lovenox Dispo: Med/Tele Precautions: Neutropenic Admission and Anticipated Discharge Date Admission Date: November 25, 2021 Subjective No acute events overnight. Patient reports that abdominal pain does feel better this morning (though not resolved) compared to yesterday. She feels shaky, but denies chills or fevers. Review of Systems Constitutional: + chills; no fever and no malaise Respiratory: no cough and no dyspnea Cardiovascular: no chest pain, no palpitations and no edema Gastrointestinal: + abdominal pain (mild, mostly lower quadrants) Psychiatric: no behavioral changes and no confusion Physical Exam Constitutional: well developed and well nourished; no acute distress Respiratory: normal respiratory effort, lungs clear to auscultation Cardiovascular: RRR, no murmur, no edema Gastrointestinal (Abdomen): normal bowel sounds, abdomen soft, mildly tender to palpation RUQ Skin: no rashes, warm and dry Psychiatric: A+Ox3, euthymic affect Results & Data Results & Data ([facility]) Vital Signs (Past 12 Hours) Vital Signs Temp Pulse Pulse Resp BP Pulse Ox O2 Del Method 11/27/21 10:02 76 11/27/21 07:16 36.7 C 76 18 115/56 L 95 Room Air 11/27/21 03:38 36.9 C 78 18 148/66 H 94 Room Air 11/26/21 23:06 36.8 C 82 20 101/53 L 95 Room Air 11/26/21 23:02 82 PG Care Time/CCT Total # of Minutes Spent Total Time Spent with Patient: Total time spent is greater than 50% in coordination of care (as documented) at patient's floor/unit and/or counseling patient: Coding Level of Care Code 65269 Subseq Hosp Care Lvl 3 Diagnoses Neutropenic typhlitis K37; D70.9 Hepatic encephalopathy K72.90 Abdominal pain R10.9 Hypercalcemia E83.52 Moeller's esophagus with esophagitis K22.70; K20.9 Diabetes mellitus, type 2 E11.9 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 Hypomagnesemia E83.42 Pancytopenia D61.818 Anxiety and depression F41.9; F32.9
[2021-11-27] MEDS ORDERED: PIPERACILLIN/TAZOBACTAM 3.375 GM in DEXTROSE 5% 100 ML IV SCH ×2 (10:45→14:00)
[2021-11-27 11:21] LABS: Hematocrit (blood only) 25.9 % (34.1-44.9); Mean Corpuscular Hemoglobin 31.9 pg (25.0-34.0); Mean Corpuscular Hgb Conc 34.7 g/dL (32.0-36.0); Mean Corpuscular Volume 91.8 fL (80.0-100.0); Mean Platelet Volume 9.3 fL (9.4-12.3); Platelet Count 96 K/uL (130-400); RDW Coefficient of Variation 16.7 % (11.5-14.5); RDW Standard Deviation 56.1 fL (36.4-46.3); Red Blood Count 2.82 M/uL (3.93-5.22); White Blood Count 2.08 K/ul (4.8-10.8)
[2021-11-27 11:36] LABS: Polychromasia 1+; Rouleaux 1+
[2021-11-27 11:41] LABS: Basophils # (auto) 0.01 K/uL (0-0.2); Basophils % (auto) 0.5 %; Eosinophils # (auto) 0.12 K/uL (0-0.50); Eosinophils % (auto) 5.8 %; Immature Granulocytes # (auto) 0.01 K/uL (0.00-0.02); Immature Granulocytes % (auto) 0.5 %; Lymphocytes # (auto) 0.68 K/uL (1.2-3.4); Lymphocytes % (auto) 32.7 %; Monocytes # (auto) 0.36 K/uL (0.24-0.82); Monocytes % (auto) 17.3 %; Neutrophils % (auto) 43.2 %
[2021-11-27 11:44] LABS: Folate (Folic Acid) 20.84 ng/ml (>5.38)
[2021-11-27 11:45] LABS: Vitamin B12 > 1500 pg/ml (180-914)
[2021-11-27] MEDS: PIPERACILLIN/TAZOBACTAM 3.375 GM in DEXTROSE 5% 100 ML IV SCH ×2 (13:12→21:05)
[2021-11-27] MEDS: ENOXAPARIN INJ 40 MG/0.4 ML SYR SQ SCH (20:55)
[2021-11-27] MEDS ORDERED: LACTULOSE SYRUP 20 GM/30 ML UDC PO SCH (21:00)
[2021-11-28] MEDS: PIPERACILLIN/TAZOBACTAM 3.375 GM in DEXTROSE 5% 100 ML IV SCH ×3 (05:29→23:12)
[2021-11-28] MEDS: LEVOTHYROXINE SODIUM 100 MCG TABLET PO SCH (05:30)
--- NOTE | 2021-11-28 06:54 | Hospitalist Progress Note ---
Date of Service November 28, 2021 Assessment & Plan (1) Neutropenic typhlitis: Plan: 66 yo F Hx REBOLLAR cirrhosis, Moeller's esophagus, pancytopenia, DM2, hypothyroidism, anxiety, and depression admitted for hepatic encephalopathy and hypercalcemia, and now being treated for typhlitis. Neutropenic colitis: - Presented with abdominal pain, initially thought to be secondary to constipation x2 days on admission. - Abdominal pain did not improve despite several BMs. - CTAP shows infectious/inflammatory colitis. - 11/27 developed unexplained neutropenia, therefore will treat as typhlitis. - Continue Zosyn 3.375g q8h. - Biofire stool and C. diff ordered, pending. (2) Hepatic encephalopathy: Plan: - Patient has a history of REBOLLAR cirrhosis, and an elevated ammonia of 91 on admission. - Patient presented with concerns for confusion, lightheadedness, unsteadiness on her feet for several days in the setting of not having had a BM for two days. - She states compliance at home with her lactulose regiment 3 times daily as well as Xifaxan. - With several BMs 11/26 after lactulose enema. Enema PRN, with continued home lactulose regimen. - Continue Xifaxin. - No evidence of UTI on UA. KUB with moderate stool burden without impaction or ileus. - Ammonia level still increased from baseline, will monitor. (3) Abdominal pain: Plan: - Pain in LLQ, multifactorial with colitis and constipation. - Lactulose and Xifaxan as above. - Tx of typhlitis as above. - Zofran and tramadol as needed for supportive care. (4) Hypercalcemia: Plan: - Patient has history of elevated calcium as well as kidney stones. - Resolved after receiving 500 cc NSS in ED, with LR at 125 cc/hour. - Continue to hold chlorthalidone for now. - Renal function at baseline. - Vitamin D/PTH checked on last admission: 25/25.6. - PTH related protein sent out last admission: 9. - Daily BMP while admitted. (5) Moeller's esophagus with esophagitis: Plan: - Continue PPI. (6) Diabetes mellitus, type 2: Plan: - A1c last month 6.4%. - Hold Trulicity. - 7 units Lantus BID with SSI. (7) 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: Plan: - Platelets 118, INR 1.3, sodium 135, T bili 5.3, AST 92, ALT 52, Alk phos 124. All at/near baseline. - Ammonia elevated 91 on admission, treatment as above see #2. - [place] [facility] [place], Dr. García and Africa Ulloa with [facility]. - Patient was previously enrolled with palliative services, however is possibly being considered for transplant. (8) Hypomagnesemia: Plan: - Improved with IV and oral supplementation. (9) Pancytopenia: Plan: - Chronic problem, with new neutropenia on 11/27. ANC ~0.9. - Admission Hgb 11.1, WBC 3.66, Plts 118. - Daily CBC with diff while admitted. - Typhlitis treatment as above. (10) Anxiety and depression: Plan: - Continue home meds. Plan Code Status: DNR/DNI FEN: Regular DVT ppx: Lovenox Dispo: Med/Tele Precautions: Neutropenic Admission and Anticipated Discharge Date Admission Date: November 25, 2021 Subjective No acute events overnight. Patient reports that abdominal pain does feel even better this morning compared to yesterday. Shakiness is gone. Review of Systems Constitutional: no fever, no chills and no malaise Respiratory: no cough and no dyspnea Cardiovascular: no chest pain, no palpitations and no edema Gastrointestinal: + abdominal pain (mild, mostly lower quadrants) Psychiatric: no behavioral changes and no confusion Physical Exam Constitutional: well developed and well nourished; no acute distress Eyes: sleral icterus Respiratory: normal respiratory effort, lungs clear to auscultation Cardiovascular: RRR, no murmur, no edema Gastrointestinal (Abdomen): Inspection/Auscultation: normal bowel sounds; abdomen not distended Percussion/Palpation: + abdomen tender (mild, RUQ and LLQ) and abdomen soft; no guarding Skin: no rashes, warm and dry jaundice Psychiatric: A+Ox3, euthymic affect Results & Data Results & Data ([facility]) Vital Signs (Past 12 Hours) Vital Signs Temp Pulse Pulse Resp BP BP Pulse Ox 11/28/21 03:43 36.8 C 79 20 100/57 L 93 11/27/21 22:16 80 11/27/21 22:53 36.3 C L 78 18 100/55 L 94 11/27/21 19:29 36.9 C 80 20 119/62 96 O2 Del Method 11/28/21 03:43 Room Air 11/27/21 22:16 11/27/21 22:53 Room Air 11/27/21 19:29 Room Air PG Care Time/CCT Total # of Minutes Spent Total Time Spent with Patient: Total time spent is greater than 50% in coordination of care (as documented) at patient's floor/unit and/or counseling patient: Coding Level of Care Code 78456 Subseq Hosp Care Lvl 3 Diagnoses Neutropenic typhlitis K37; D70.9 Hepatic encephalopathy K72.90 Abdominal pain R10.9 Hypercalcemia E83.52 Moeller's esophagus with esophagitis K22.70; K20.9 Diabetes mellitus, type 2 E11.9 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 Hypomagnesemia E83.42 Pancytopenia D61.818 Anxiety and depression F41.9; F32.9
[2021-11-28] MEDS: HYOSCYAMINE SULFATE 0.125 MG TAB PO SCH ×4 (08:32→20:54)
[2021-11-28] MEDS: MULTIVITAMIN TAB PO SCH (08:32)
[2021-11-28] MEDS: PANTOprazole 40 MG TAB PO SCH (08:32)
[2021-11-28] MEDS: PARoxetine HCL 20 MG TAB PO SCH (08:33)
[2021-11-28] MEDS: POTASSIUM CHLORIDE CRTAB 20 MEQ TABCR PO SCH ×3 (08:33→21:11)
[2021-11-28] MEDS: rifAXIMin 550 MG TABLET PO SCH ×2 (08:34→20:57)
[2021-11-28] MEDS: PROPRANOLOL HCL 20 MG TAB PO SCH ×3 (08:34→20:57)
[2021-11-28] MEDS: MAGNESIUM OXIDE 400 MG TAB PO SCH ×2 (08:35→20:56)
[2021-11-28] MEDS: LANTUS PER UNIT CHARGE SQ SCH ×2 (08:41→21:10)
[2021-11-28] MEDS: INSULIN ASPART PER UNIT SC SCH ×4 (08:42→21:11)
[2021-11-28 09:12] LABS: Hematocrit (blood only) 26.2 % (34.1-44.9); Hemoglobin 9.1 g/dl (12.0-16.0); Platelet Count 89 K/uL (130-400); White Blood Count 2.47 K/ul (4.8-10.8)
[2021-11-28 09:21] LABS: INR 1.3 (0.9-1.1); Prothrombin Time 13.9 Seconds (9.0-12.0)
[2021-11-28 09:39] LABS: Albumin Globulin Ratio 1.8 (0.9-2); Albumin Level 2.9 gm/dl (3.4-5.0); BUN Creatinine Ratio 13.1 (10-20); Bilirubin,Total 3.6 mg/dl (0.2-1.0); Calcium 9.8 mg/dl (8.5-10.1); Creatinine Clr Calc Pharmacy 52.1 ml/min; Est GFR (African American) 67.9 ml/min; Est GFR (Non-African American) 58.6 ml/min; Globulin 1.6 gm/dl (2.5-4.0); Potassium 4.3 mmol/L (3.5-5.1); Total Protein 4.5 gm/dl (6.0-8.3)
[2021-11-28] MEDS: LACTULOSE SYRUP 20 GM/30 ML UDC PO SCH ×3 (10:09→20:55)
[2021-11-28 10:22] LABS: Basophils # (auto) 0.01 K/uL (0-0.2); Basophils % (auto) 0.4 %; Eosinophils # (auto) 0.15 K/uL (0-0.50); Eosinophils % (auto) 6.1 %; Immature Granulocytes # (auto) 0.01 K/uL (0.00-0.02); Immature Granulocytes % (auto) 0.4 %; Lymphocytes # (auto) 0.87 K/uL (1.2-3.4); Lymphocytes % (auto) 35.2 %; Mean Corpuscular Hgb Conc 34.7 g/dL (32.0-36.0); Mean Corpuscular Volume 92.3 fL (80.0-100.0); Monocytes # (auto) 0.46 K/uL (0.24-0.82); Monocytes % (auto) 18.6 %; Neutrophils # (auto) 0.97 K/uL (1.4-6.5); Neutrophils % (auto) 39.3 %; RDW Standard Deviation 56.4 fL (36.4-46.3); Red Blood Count 2.84 M/uL (3.93-5.22)
[2021-11-28] MEDS ORDERED: SOD PHOSPHATE/SOD BIPHOSPHATE ENEMA 132 ML BTL PR PRN (16:21)
[2021-11-28 16:37] LABS: Adenovirus F 40/41 PCR Not Detected (NotDetected); Astrovirus PCR Not Detected (NotDetected); Campylobacter PCR Not Detected (NotDetected); Cryptosporidium PCR Not Detected (NotDetected); Cyclospora cayetanensis PCR Not Detected (NotDetected); Entamoeba histolytica PCR Not Detected (NotDetected); Enteroaggregative E.coli(EAEC) Not Detected (NotDetected); Enteropathogenic E.coli (EPEC) Not Detected (NotDetected); Enterotoxigenic E.coli (ETEC) Not Detected (NotDetected); Giardia lamblia PCR Not Detected (NotDetected); Norovirus GI/GII PCR Not Detected (NotDetected); Plesiomonas shigelloides PCR Not Detected (NotDetected); Rotavirus A PCR Not Detected (NotDetected); Salmonella PCR Not Detected (NotDetected); Sapovirus PCR Not Detected (NotDetected); Shiga-like Toxin E.coli (STEC) Not Detected (NotDetected); Shigella/Enteroinvasive E.coli Not Detected (NotDetected); Vibrio cholerae PCR Not Detected (NotDetected); Vibrio species PCR Not Detected (NotDetected); Yersinia enterocolitica PCR Not Detected (NotDetected)
[2021-11-28 18:10] LABS: Cdiff Antigen Negative; Cdiff Toxin A+B Negative Cdiff Toxin (Negative)
[2021-11-28] MEDS: ENOXAPARIN INJ 40 MG/0.4 ML SYR SQ SCH (20:53)
[2021-11-28] MEDS: traMADol HCL 50 MG TABLET PO PRN (21:11)
[2021-11-29] MEDS: LEVOTHYROXINE SODIUM 112 MCG TABLET PO SCH (06:14)
[2021-11-29] MEDS: PIPERACILLIN/TAZOBACTAM 3.375 GM in DEXTROSE 5% 100 ML IV SCH ×3 (06:14→21:15)
[2021-11-29] MEDS: HYOSCYAMINE SULFATE 0.125 MG TAB PO SCH ×4 (08:10→21:06)
[2021-11-29] MEDS: PARoxetine HCL 20 MG TAB PO SCH (08:11)
[2021-11-29] MEDS: PANTOprazole 40 MG TAB PO SCH (08:11)
[2021-11-29] MEDS: MAGNESIUM OXIDE 400 MG TAB PO SCH ×2 (08:11→21:07)
[2021-11-29] MEDS: rifAXIMin 550 MG TABLET PO SCH ×2 (08:11→21:09)
[2021-11-29] MEDS: MULTIVITAMIN TAB PO SCH (08:11)
[2021-11-29] MEDS: PROPRANOLOL HCL 20 MG TAB PO SCH ×3 (08:11→21:08)
--- NOTE | 2021-11-29 08:24 | Hospitalist Progress Note ---
Date of Service November 29, 2021 Assessment & Plan (1) Neutropenic typhlitis: Plan: 66 yo F Hx REBOLLAR cirrhosis, Moeller's esophagus, pancytopenia, DM2, hypothyroidism, anxiety, and depression admitted for hepatic encephalopathy and hypercalcemia, and now being treated for typhlitis. Neutropenic colitis: - Presented with abdominal pain, initially thought to be secondary to constipation x2 days on admission. - Abdominal pain did not improve despite several BMs. - CTAP shows infectious/inflammatory colitis. - 11/27 developed unexplained neutropenia, being treat as typhlitis. - Continue Zosyn 3.375g q8h, with transition to Augmentin on discharge. - Biofire stool negative; C. diff gene positive, toxin NEGATIVE. (2) Hepatic encephalopathy: Plan: - Patient has a history of REBOLLAR cirrhosis, and an elevated ammonia of 91 on admission. - Patient presented with concerns for confusion, lightheadedness, unsteadiness on her feet for several days in the setting of not having had a BM for two days. - She states compliance at home with her lactulose regiment 3 times daily as well as Xifaxan. - With several BMs 11/26 after lactulose enema. Enema PRN. - Lactulose increased to 30g PO TID. - Continue Xifaxin. - No evidence of UTI on UA. KUB with moderate stool burden without impaction or ileus. - Ammonia level still increased from baseline, will monitor. (3) Abdominal pain: Plan: - Pain in LLQ, multifactorial with colitis and constipation. - Lactulose and Xifaxan as above. - Tx of typhlitis as above. - Zofran and tramadol as needed for supportive care. (4) Hypercalcemia: Plan: - Patient has history of elevated calcium as well as kidney stones. - Resolved after receiving 500 cc NSS in ED, with LR at 125 cc/hour. - Continue to hold chlorthalidone for now. - Renal function at baseline. - Vitamin D/PTH checked on last admission: 2525.6. - PTH related protein sent out last admission: 9. - Daily BMP while admitted. (5) Moeller's esophagus with esophagitis: Plan: - Continue PPI. (6) Diabetes mellitus, type 2: Plan: - A1c last month 6.4%. - Hold Trulicity. - 7 units Lantus BID with SSI. (7) 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: Plan: - Platelets 118, INR 1.3, sodium 135, T bili 5.3, AST 92, ALT 52, Alk phos 124. All at/near baseline. - Ammonia elevated 91 on admission, treatment as above see #2. - [place] [facility] [place], Dr. García and Africa Ulloa with [facility]. - Patient was previously enrolled with palliative services, however is possibly being considered for transplant. (8) Hypomagnesemia: Plan: - Improved with IV and oral supplementation. (9) Pancytopenia: Plan: - Chronic problem, with new neutropenia on 11/27. ANC ~0.9 -> improved to 1.07 today with tx of typhlitis. - Admission Hgb 11.1, WBC 3.66, Plts 118. - Daily CBC with diff while admitted. (10) Anxiety and depression: Plan: - Continue home meds. Plan Code Status: DNR/DNI FEN: Regular DVT ppx: Lovenox Dispo: Med/Tele Precautions: Neutropenic Admission and Anticipated Discharge Date Admission Date: November 25, 2021 Subjective Very small BM today. Patient reports some improvement in her abdominal pain but still has some pain with palpation of right upper and lowerw quadrants Review of Systems Constitutional: no fever, no chills and no malaise Respiratory: no cough and no dyspnea Cardiovascular: no chest pain, no palpitations and no edema Gastrointestinal: + abdominal pain Psychiatric: no confusion Physical Exam Constitutional: well developed and well nourished; no acute distress Respiratory: normal respiratory effort, lungs clear to auscultation Cardiovascular: RRR, no murmur, no edema Gastrointestinal (Abdomen): Inspection/Auscultation: normal bowel sounds; abdomen not distended Percussion/Palpation: + abdomen tender (mild, RLQ and RUQ) and abdomen soft; no guarding Skin: no rashes, warm and dry + jaundice Psychiatric: A+Ox3, euthymic affect Results & Data Results & Data ([facility]) Vital Signs (Past 12 Hours) Vital Signs Temp Pulse Pulse Resp BP BP Pulse Ox 11/29/21 07:43 36.6 C 74 16 112/67 95 11/28/21 22:15 80 11/29/21 03:09 36.9 C 74 18 102/55 L 93 11/28/21 23:28 36.7 C 79 16 106/63 95 O2 Del Method 11/29/21 07:43 Room Air 11/28/21 22:15 11/29/21 03:09 Room Air 11/28/21 23:28 Room Air PG Care Time/CCT Total # of Minutes Spent Total Time Spent with Patient: Total time spent is greater than 50% in coordination of care (as documented) at patient's floor/unit and/or counseling patient: Coding Level of Care Code 23769 Subseq Hosp Care Lvl 3 Diagnoses Neutropenic typhlitis K37; D70.9 Hepatic encephalopathy K72.90 Abdominal pain R10.9 Hypercalcemia E83.52 Moeller's esophagus with esophagitis K22.70; K20.9 Diabetes mellitus, type 2 E11.9 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 Hypomagnesemia E83.42 Pancytopenia D61.818 Anxiety and depression F41.9; F32.9
[2021-11-29 08:40] LABS: Hematocrit (blood only) 27.2 % (34.1-44.9); Hemoglobin 9.2 g/dl (12.0-16.0); Mean Platelet Volume 9.1 fL (9.4-12.3); Platelet Count 101 K/uL (130-400); White Blood Count 2.94 K/ul (4.8-10.8)
[2021-11-29] MEDS ORDERED: LACTULOSE SYRUP 10 GM/15 ML BTL 960 ML PO SCH (09:00)
[2021-11-29 09:03] LABS: Basophils # (auto) 0.01 K/uL (0-0.2); Basophils % (auto) 0.3 %; Eosinophils # (auto) 0.14 K/uL (0-0.50); Eosinophils % (auto) 4.8 %; Immature Granulocytes # (auto) 0.02 K/uL (0.00-0.02); Immature Granulocytes % (auto) 0.7 %; Lymphocytes # (auto) 1.22 K/uL (1.2-3.4); Lymphocytes % (auto) 41.5 %; Mean Corpuscular Hemoglobin 31.6 pg (25.0-34.0); Mean Corpuscular Hgb Conc 33.8 g/dL (32.0-36.0); Mean Corpuscular Volume 93.5 fL (80.0-100.0); Monocytes # (auto) 0.48 K/uL (0.24-0.82); Monocytes % (auto) 16.3 %; Neutrophils # (auto) 1.07 K/uL (1.4-6.5); Neutrophils % (auto) 36.4 %; RDW Coefficient of Variation 17.1 % (11.5-14.5); RDW Standard Deviation 57.9 fL (36.4-46.3); Red Blood Count 2.91 M/uL (3.93-5.22)
[2021-11-29 09:26] LABS: Albumin Globulin Ratio 1.8 (0.9-2); Albumin Level 3.1 gm/dl (3.4-5.0); BUN Creatinine Ratio 13.7 (10-20); Bilirubin,Total 3.4 mg/dl (0.2-1.0); Calcium 9.6 mg/dl (8.5-10.1); Creatinine Clr Calc Pharmacy 50.7 ml/min; Est GFR (African American) 65.5 ml/min; Est GFR (Non-African American) 56.5 ml/min; Globulin 1.7 gm/dl (2.5-4.0); Potassium 4.2 mmol/L (3.5-5.1); Total Protein 4.8 gm/dl (6.0-8.3)
[2021-11-29] MEDS: INSULIN ASPART PER UNIT SC SCH ×4 (09:45→21:07)
[2021-11-29] MEDS: POTASSIUM CHLORIDE CRTAB 20 MEQ TABCR PO SCH ×3 (09:50→21:15)
[2021-11-29] MEDS: LANTUS PER UNIT CHARGE SQ SCH ×2 (09:51→21:14)
[2021-11-29] MEDS: LACTULOSE SYRUP 30 GM/45 ML UDP PO SCH ×2 (13:49→21:07)
[2021-11-29] MEDS: SIMETHICONE 80 MG CHEW PO PRN (14:38)
[2021-11-29] MEDS: traMADol HCL 50 MG TABLET PO PRN ×2 (14:38→21:28)
[2021-11-29] MEDS: LACTULOSE 200GM/700ML WTR ENEMA PR SCH (16:00)
[2021-11-29] MEDS: ENOXAPARIN INJ 40 MG/0.4 ML SYR SQ SCH (21:05)
[2021-11-30] MEDS: LACTULOSE 200GM/700ML WTR ENEMA PR SCH ×4 (00:03→23:08)
[2021-11-30] MEDS: PIPERACILLIN/TAZOBACTAM 3.375 GM in DEXTROSE 5% 100 ML IV SCH ×3 (05:58→22:47)
[2021-11-30] MEDS: LEVOTHYROXINE SODIUM 100 MCG TABLET PO SCH (05:59)
[2021-11-30 06:27] LABS: Hematocrit (blood only) 26.6 % (34.1-44.9); Mean Platelet Volume 8.9 fL (9.4-12.3); Platelet Count 101 K/uL (130-400)
[2021-11-30 06:48] LABS: Basophils # (auto) 0.02 K/uL (0-0.2); Basophils % (auto) 0.6 %; Eosinophils # (auto) 0.18 K/uL (0-0.50); Eosinophils % (auto) 5.5 %; Immature Granulocytes # (auto) 0.02 K/uL (0.00-0.02); Immature Granulocytes % (auto) 0.6 %; Lymphocytes # (auto) 1.49 K/uL (1.2-3.4); Lymphocytes % (auto) 45.2 %; Mean Corpuscular Hgb Conc 33.8 g/dL (32.0-36.0); Mean Corpuscular Volume 94.7 fL (80.0-100.0); Monocytes # (auto) 0.56 K/uL (0.24-0.82); Neutrophils # (auto) 1.03 K/uL (1.4-6.5); Neutrophils % (auto) 31.1 %; RDW Coefficient of Variation 17.4 % (11.5-14.5); RDW Standard Deviation 60.1 fL (36.4-46.3); Red Blood Count 2.81 M/uL (3.93-5.22)
[2021-11-30 06:58] LABS: Albumin Globulin Ratio 1.9 (0.9-2); BUN Creatinine Ratio 14.6 (10-20); Bilirubin,Total 3.4 mg/dl (0.2-1.0); Calcium 9.5 mg/dl (8.5-10.1); Creatinine Clr Calc Pharmacy 53.7 ml/min; Est GFR (African American) 70.4 ml/min; Est GFR (Non-African American) 60.8 ml/min; Globulin 1.6 gm/dl (2.5-4.0); Potassium 4.1 mmol/L (3.5-5.1); Total Protein 4.6 gm/dl (6.0-8.3)
[2021-11-30] MEDS: LACTULOSE SYRUP 30 GM/45 ML UDP PO SCH ×3 (08:22→20:07)
[2021-11-30] MEDS: MULTIVITAMIN TAB PO SCH (08:22)
[2021-11-30] MEDS: POTASSIUM CHLORIDE CRTAB 20 MEQ TABCR PO SCH ×3 (08:23→20:07)
[2021-11-30] MEDS: MAGNESIUM OXIDE 400 MG TAB PO SCH ×2 (08:23→20:07)
[2021-11-30] MEDS: rifAXIMin 550 MG TABLET PO SCH ×2 (08:23→20:08)
[2021-11-30] MEDS: PROPRANOLOL HCL 20 MG TAB PO SCH ×3 (08:23→20:08)
[2021-11-30] MEDS: HYOSCYAMINE SULFATE 0.125 MG TAB PO SCH ×4 (08:23→20:06)
[2021-11-30] MEDS: PANTOprazole 40 MG TAB PO SCH (08:23)
[2021-11-30] MEDS: PARoxetine HCL 20 MG TAB PO SCH (08:23)
[2021-11-30] MEDS: INSULIN ASPART PER UNIT SC SCH ×4 (08:30→20:24)
[2021-11-30] MEDS: LANTUS PER UNIT CHARGE SQ SCH ×2 (08:31→20:25)
--- NOTE | 2021-11-30 10:32 | Hospitalist Progress Note ---
Date of Service November 30, 2021 Assessment & Plan (1) Neutropenic typhlitis: Plan: 66 yo F Hx REBOLLAR cirrhosis, Moeller's esophagus, pancytopenia, DM2, hypothyroidism, anxiety, and depression admitted for hepatic encephalopathy and hypercalcemia, and now being treated for typhlitis. Neutropenic colitis: - Presented with abdominal pain, initially thought to be secondary to constipation x2 days on admission. - Abdominal pain did not improve despite several BMs. - CTAP shows infectious/inflammatory colitis. - 11/27 developed unexplained neutropenia, resolved with typhlitis treatment. - Continue Zosyn 3.375g q8h, with transition to Augmentin on discharge. - Biofire stool negative; C. diff gene positive, toxin NEGATIVE. (2) Hepatic encephalopathy: Plan: - Patient has a history of REBOLLAR cirrhosis, and an elevated ammonia of 91 on admission. - Patient presented with concerns for confusion, lightheadedness, unsteadiness on her feet for several days in the setting of not having had a BM for two days. - She states compliance at home with her lactulose regiment 3 times daily as well as Xifaxan. - With several BMs 11/26 after lactulose enema. - Lactulose increased to 30g PO TID. - Continue Xifaxin. - No evidence of UTI on UA. KUB with moderate stool burden without impaction or ileus. - Ammonia level still increased from baseline, but downtrending. - Patient requests lactulose enemas for home as needed if she has constipation event like she did on admission. This is not unreasonable. She did not have BM with fleet enema earlier this admission. (3) Abdominal pain: Plan: - Pain in LLQ, multifactorial with colitis and constipation. - Lactulose and Xifaxan as above. - Tx of typhlitis as above. - Zofran and tramadol as needed for supportive care. (4) Hypercalcemia: Plan: - Renal function is at baseline. HyperCa resolved with holding chlorthalidone an d IV fluids. - Patient has history of elevated calcium as well as kidney stones. - Vitamin D/PTH checked on last admission: 25/25.6. - PTH related protein sent out last admission: 9. (5) Moeller's esophagus with esophagitis: Plan: - Continue PPI. (6) Diabetes mellitus, type 2: Plan: - A1c last month 6.4%. - Hold Trulicity. - 7 units Lantus BID with SSI. (7) 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: Plan: - Platelets 118, INR 1.3, sodium 135, T bili 5.3, AST 92, ALT 52, Alk phos 124. All at/near baseline. - Ammonia elevated 91 on admission, treatment as above see #2. - Follows with [facility] [place], Dr. García and Africa Ulloa with [facility]. - Patient was previously enrolled with palliative services, however is possibly being considered for transplant. (8) Hypomagnesemia: Plan: - Improved with IV and oral supplementation. (9) Pancytopenia: Plan: - Chronic problem, with new neutropenia on 11/27. ANC ~0.9 -> improved to 1.03 today with tx of typhlitis. - Admission Hgb 11.1, WBC 3.66, Plts 118. - Daily CBC with diff. (10) Anxiety and depression: Plan: - Continue home meds. Plan Code Status: DNR/DNI FEN: Regular DVT ppx: Lovenox Dispo: Med/Tele Admission and Anticipated Discharge Date Admission Date: November 25, 2021 Subjective Overnight had several soft loose BMs due to lactulose PO. Did not receive lactulose enema due to this. She reports less abdominal pain today, and otherwise feels okay. Review of Systems Constitutional: no fever, no chills and no malaise Respiratory: no cough and no dyspnea Cardiovascular: no chest pain, no palpitations and no edema Gastrointestinal: no abdominal pain, no nausea and no vomiting Psychiatric: no confusion Physical Exam Constitutional: well developed and well nourished; no acute distress Respiratory: normal respiratory effort, lungs clear to auscultation Cardiovascular: RRR, no murmur, no edema Gastrointestinal (Abdomen): Inspection/Auscultation: normal bowel sounds; abdomen not distended Percussion/Palpation: abdomen soft; abdomen nontender and no guarding Skin: no rashes, warm and dry + jaundice Psychiatric: A+Ox3, euthymic affect Results & Data Results & Data ([facility]) Vital Signs (Past 12 Hours) Vital Signs Temp Pulse Pulse Resp BP Pulse Ox O2 Del Method 11/30/21 06:35 79 11/30/21 07:00 36.7 C 80 18 126/67 97 Room Air 11/30/21 03:44 36.5 C 80 16 118/47 L 96 Room Air 11/29/21 23:03 36.8 C 80 17 110/66 96 Room Air PG Care Time/CCT Total # of Minutes Spent Total Time Spent with Patient: Total time spent is greater than 50% in coordination of care (as documented) at patient's floor/unit and/or counseling patient: Coding Level of Care Code 31728 Subseq Hosp Care Lvl 3 Diagnoses Neutropenic typhlitis K37; D70.9 Hepatic encephalopathy K72.90 Abdominal pain R10.9 Hypercalcemia E83.52 Moeller's esophagus with esophagitis K22.70; K20.9 Diabetes mellitus, type 2 E11.9 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 Hypomagnesemia E83.42 Pancytopenia D61.818 Anxiety and depression F41.9; F32.9
[2021-11-30] MEDS: ENOXAPARIN INJ 40 MG/0.4 ML SYR SQ SCH (20:06)
[2021-11-30] MEDS: traMADol HCL 50 MG TABLET PO PRN (20:09)
[2021-12-01] MEDS: PIPERACILLIN/TAZOBACTAM 3.375 GM in DEXTROSE 5% 100 ML IV SCH ×2 (05:36→13:25)
[2021-12-01] MEDS: LEVOTHYROXINE SODIUM 112 MCG TABLET PO SCH (05:36)
[2021-12-01] MEDS: traMADol HCL 50 MG TABLET PO PRN (07:51)
[2021-12-01] MEDS: MAGNESIUM OXIDE 400 MG TAB PO SCH (07:52)
[2021-12-01] MEDS: PROPRANOLOL HCL 20 MG TAB PO SCH ×2 (07:52→13:25)
[2021-12-01] MEDS: PANTOprazole 40 MG TAB PO SCH (07:52)
[2021-12-01] MEDS: HYOSCYAMINE SULFATE 0.125 MG TAB PO SCH ×2 (07:52→11:53)
[2021-12-01] MEDS: rifAXIMin 550 MG TABLET PO SCH (07:52)
[2021-12-01] MEDS: MULTIVITAMIN TAB PO SCH (07:52)
[2021-12-01] MEDS: LACTULOSE SYRUP 30 GM/45 ML UDP PO SCH ×2 (07:53→13:26)
[2021-12-01] MEDS: POTASSIUM CHLORIDE CRTAB 20 MEQ TABCR PO SCH ×2 (07:53→13:25)
[2021-12-01] MEDS: LACTULOSE 200GM/700ML WTR ENEMA PR SCH ×2 (07:53→13:28)
[2021-12-01] MEDS: PARoxetine HCL 20 MG TAB PO SCH (07:54)
[2021-12-01] MEDS: LANTUS PER UNIT CHARGE SQ SCH (08:01)
[2021-12-01] MEDS: INSULIN ASPART PER UNIT SC SCH ×2 (08:01→12:18)
[2021-12-01 09:18] LABS: Basophils # (auto) 0.01 K/uL (0-0.2); Basophils % (auto) 0.3 %; Eosinophils % (auto) 5.9 %; Hematocrit (blood only) 24.4 % (34.1-44.9); Hemoglobin 8.3 g/dl (12.0-16.0); Immature Granulocytes # (auto) 0.02 K/uL (0.00-0.02); Immature Granulocytes % (auto) 0.6 %; Lymphocytes # (auto) 1.37 K/uL (1.2-3.4); Lymphocytes % (auto) 40.3 %; Monocytes # (auto) 0.67 K/uL (0.24-0.82); Monocytes % (auto) 19.7 %; Neutrophils # (auto) 1.13 K/uL (1.4-6.5); Neutrophils % (auto) 33.2 %; Platelet Count 96 K/uL (130-400)
[2021-12-01 09:33] LABS: Mean Corpuscular Hemoglobin 32.4 pg (25.0-34.0); Mean Corpuscular Volume 95.3 fL (80.0-100.0); Ovalocytes 1+; Polychromasia 1+; RDW Coefficient of Variation 17.4 % (11.5-14.5); RDW Standard Deviation 60.3 fL (36.4-46.3); Red Blood Count 2.56 M/uL (3.93-5.22)
--- NOTE | 2021-12-01 15:59 | Discharge Summary ---
Date of Service December 01, 2021 Admission HPI Per Admitting Provider Aurelia Kurtz is a 66-year-old female with past medical history significant for end-stage liver disease, Moeller's esophagus, DM2, hypothyroidism, anxiety, and depression who presents today with near syncopal spell at home this afternoon. For the past several days, she has been more confused than usual and has been feeling lightheaded and wobbly on her feet. She does take lactulose 3 times daily, as well as Xifaxan. administers this and notes that she has been taking this regularly, 3 times daily over the past 2 or 3 days at least. Despite this, she has not had a bowel movement at least 2 days. She is having left-sided abdominal pain, as well as bilateral lower abdominal/flank pain. She has been taking mostly tramadol for the pain, but occasionally does take oxycodone, but says she really tries to avoid using this because she fears will make her constipated and does monitor the side effects of it. She has a history of chronic UTIs, and that her urine is intermittently orange, how ever has had no dysuria, hematuria, or other urinary symptoms. She feels that she is going a decent amount. At no point during her lightheaded/wobbly episodes that she had chest pain, shortness of breath, or palpitations. Upon presentation to the ED, vital signs within normal limits, she is hemodynamically stable. Labs significant for ammonia level 91, magnesium 1.4, calcium 10.6. Also notable is stable leukopenia, anemia, thrombocytopenia, 3.60/11.1/118 respectively. INR 1.3. T bili 5.3, AST 92, alk phos 124, all at/near her baseline from prior labs. Troponin 6.6, within normal limits and renal function at baseline. COVID-negative. Principal Diagnosis Hepatic encephalopathy Discharge Exam G: NAD, pleasant, alert and oriented CV: RRR, no m/r/g Resp: CTA b/l. Normal work of breathing. GI: Abd soft, non-tender Neuro: Mild tremor b/l Discharge Data Allergies Allergy/AdvReac Type Severity Reaction Status Date / Time bee venom protein (honey bee) Allergy Severe Anaphylaxis Verified 11/04/21 16:01 Influenza Virus Vaccines Allergy Severe Anaphylaxis Verified 11/04/21 16:01 tetracycline AdvReac Severe Severe Verified 11/04/21 16:01 stomach pains Consultations 11/25/21 13:43 ED Decision to Admit Stat Ordered Studies 11/26/21 15:47 CT Abd and Pelvis [CT abd pelvis IV con only] Urgent Hospital Course (1) Neutropenic typhlitis: Neutropenic colitis: - Presented with abdominal pain, initially thought to be secondary to constipation x2 days on admission. - Abdominal pain did not improve despite several BMs. - Biofire stool negative; C. diff gene positive, toxin NEGATIVE. - CTAP showed infectious/inflammatory colitis. - 11/27 developed unexplained neutropenia, resolved with typhlitis treatment. - Continued Zosyn 3.375g q8h -> Transition to Augmentin on discharge x 3 more days. No longer neutropenic, and I worry with C. diff gene positive, that prolonged abx increase risk of C. diff infection. (2) Hepatic encephalopathy: - Patient has a history of REBOLLAR cirrhosis, and an elevated ammonia of 91 on admission. - Patient presented with concerns for confusion, lightheadedness, unsteadiness on her feet for several days in the setting of not having had a BM for two days. - She states compliance at home with her lactulose regiment 3 times daily as well as Xifaxan. - With several BMs 11/26 after lactulose enema. - Lactulose increased to 30g PO TID. - Continue Xifaxin. - No evidence of UTI on UA. KUB with moderate stool burden without impaction or ileus. - Ammonia level still increased from baseline, but downtrending. - Patient requested lactulose enemas for home as needed if she has constipation event like she did on admission. This is not unreasonable. She did not have BM with fleet enema earlier this admission. (3) Abdominal pain: - Pain in LLQ, multifactorial with colitis and constipation. - Lactulose and Xifaxan as above. - Tx of typhlitis as above. - Zofran and tramadol as needed for supportive care. (4) Hypercalcemia: - Renal function is at baseline. HyperCa resolved with holding chlorthalidone and IV fluids. - Patient has history of elevated calcium as well as kidney stones. - Vitamin D/PTH checked on last admission: 25/25.6. - PTH related protein sent out last admission: 9. (5) Moeller's esophagus with esophagitis: - Continue PPI. (6) Diabetes mellitus, type 2: - A1c last month 6.4%. - Hold Trulicity. - 7 units Lantus BID with SSI. 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 All at/near baseline. - Ammonia elevated 91 on admission, treatment as above see #2. - Follows with [facility], Dr. García and [place] with [facility]. - Patient was previously enrolled with palliative services, however is possibly being considered for transplant. -> Patient will see [facility] on 12/04/2021. (8) Hypomagnesemia: - Improved with IV and oral supplementation. (9) Pancytopenia: - Chronic problem, with new neutropenia on 11/27. ANC ~0.9 -> improved to 1.03 today with tx of typhlitis. - Admission Hgb 11.1, WBC 3.66, Plts 118. - Daily CBC with diff. (10) Anxiety and depression: - Continue home meds. Plan Code Status: DNR/DNI FEN: Regular DVT ppx: Lovenox Dispo: Med/Tele Total Time Total Time Spent Total Time Spent (In Minutes): 35 Discharge Plan Discharge Items Patient Disposition: Home - Home Health Services Reason For Visit: NEAR SYNCOPE Discharge Diagnosis: Near syncope, unsteadiness Condition on Discharge: Fair Activity: Resume your previous activity Non-emergency contact: Primary Care Provider and Ed Transporter Call non-emergency contact if: your symptoms worsen Follow-up/Referrals: Reza Cid MD [Primary Care Provider] - 12/10/21 8:10 am Diet: Low Sodium (2gm) Addtl Attending Provider Instructions: Ms. Kurtz, You were admitted to the hospital with elevated ammonia from constipation and your cirrhosis. We ended up giving you some lactulose via enema as well as a higher dose of your lactulose to help keep you from getting constipated. You noted that you have an appointment with the liver doctor on , and I very much want you to get to that appointment safely. You felt that you were ready to go home. While your labs are not perfect, they are improving overall. Please be careful at home. I think someone should be with you in your home 24 hours/day, 7 days/week to be sure you are safe and do not have any falls at home. Pending Studies at Discharge: No Stand-Alone Forms: My [facility], Smoking Cessation Medications and DC Order Prescriptions: New lactulose 10 gram/15 mL Solution 200 g MA Q8H PRN (Reason: constipation) Qty: 946 0RF Rx Instructions: Use if no BM despite oral lactulose for 1 day. amoxicillin-pot clavulanate 875-125 mg tablet 1 tab PO BID Qty: 7 0RF Continued levothyroxine 100 mcg tablet 100 mcg PO Q2D Qty: 45 1RF Rx Instructions: 100 mcg PO every other day; alternate with 112 mcg lorazepam 1 mg tablet 1 mg PO TID PRN (Reason: Anxiety) paroxetine HCl 20 mg tablet 20 mg PO QAM valacyclovir 1 gram tablet 1 mg PO UD PRN (Reason: Cold Sores) Label Comments: NOT CURRENTLY USING phenazopyridine [Pyridium] 200 mg tablet 200 mg PO UD PRN (Reason: bladder pain) levothyroxine 112 mcg tablet 112 mcg PO Q2D Rx Instructions: 112 mcg PO every other day, alternate with 100 mcg. Take 1st thing in the morning on an empty stomach 30 min prior to any other oral intake. (VERIFIED PAT CALL 09/09/21) dulaglutide 3 mg/0.5 mL pen injector 3 mg subcut WK Label Comments: SUNDAYS Rx Instructions: Inject 3 mg subcut once weekly Wednesday cholestyramine-aspartame [Cholestyramine Light] 4 gram powder in packet 4 g PO BID PRN (Reason: .bloating) Label Comments: CURRENTLY ON HOLD ; LAST DOSE PROBABLY 5 WEEKS AGO magnesium oxide 400 mg magnesium tablet 400 mg PO BID Qty: 60 0RF hyoscyamine sulfate 0.125 mg tablet,disintegrating 0.125 mg PO QID omeprazole 40 mg Capsule,Delayed Release(Dr/Ec) 40 mg PO DAILY Xifaxan 550 mg Tablet 550 mg PO BID Qty: 60 0RF tramadol 50 mg tablet 50 mg PO DAILY PRN (Reason: moderate pain) Qty: 15 0RF oxycodone 5 mg tablet 5 mg PO Q6H PRN (Reason: severe pain (scale score 7-10)) Qty: 10 0RF Women's 50 Plus Multivitamin 400 mcg-500 mg calcium-20 mcg Tablet 1 tab PO QAM zolpidem 5 mg tablet 5 mg PO HS PRN (Reason: insomnia) Qty: 0 0RF Klor-Con/EF 25 mEq tablet, effervescent 25 meq PO TID propranolol 20 mg tablet 20 mg PO TID Changed lactulose 20 gram/30 mL Solution 30 g PO TID Qty: 1500 0RF Rx Instructions: prescribed 60 ml TID 11/20/21 Discontinued chlorthalidone 25 mg tablet 25 mg PO Q2D Qty: 30 0RF potassium chloride [Klor-Con M20] 20 mEq Tablet,Er Particles/Crystals 20 meq PO Q2D Qty: 60 0RF Rx Instructions: written as 2 Discharge Orders: Discharge Order (Routine); Ordered 12/01/21 Ordered By: Hoang Correa/Other Patient Handouts: Treating Cirrhosis, Understanding Cirrhosis Admission Data Admit Date/Time: 11/25/21 14:13 Attending Provider: Hoang Kurtz Admit Provider: Lisa Nelson Primary Care Provider: Reza Cid Other Providers: Lisa Nelson ; [facility],[place] Other Interventions: Discharge Summary Assessment (RN) Last Done: 12/01/21 14:47 Coding Level of Care Code D/C DAY MANAGEMENT >30 MINS Diagnoses Neutropenic typhlitis K37; D70.9 Hepatic encephalopathy K72.90 Abdominal pain R10.9 Hypercalcemia E83.52 Moeller's esophagus with esophagitis K22.70; K20.9 Diabetes mellitus, type 2 E11.9 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 Hypomagnesemia E83.42 Pancytopenia D61.818 Anxiety and depression F41.9; F32.9
== END 2021-12-01 15:19 | disposition home health service (06) | DRG 442 ==
LOC: ED 11:15 → 2N 14:13 → SUATTDRO 14:13 → 2N 17:02 → 2W 11-27 13:04

== ENCOUNTER 2021-12-22 12:47 | Inpatient (IN) ==
[2021-12-22] MEDS ORDERED: SODIUM CHLORIDE 0.9% 500 ML IV ONE (14:21)
--- NOTE | 2021-12-22 14:25 | Emergency Department Note ---
History of Present Illness General Chief complaint: Confusion Stated complaint: CONFUSION Time Seen by Provider: 12/22/21 14:11 Source: patient and family (Sister who is at the bedside) Mode of arrival: ambulatory Limitations: no limitations History of Present Illness This patient is a 58-year-old female who has a history of Daily, comes in after having increased confusion over the last day or so it got worse today. Her sister says this morning she was crying for her mother who is . She is also been dehydrated they been pushing the fluids but has not been drinking as much they have been ensuring that she takes her lactulose in fact even gave her some extra but despite this she did not have a bowel movement until today and that was her first bowel movement 36 hours. No fever. She did fall 1 to 2 days ago and did hit her head. No loss of consciousness. No chest pain shortness of breath she has some chronic abdominal pain which is no different she has had a diaper rash as well. No urinary symptoms. They are waiting to go to [place] to get further testing for possible transplant Home Medications Medication Instructions Recorded Confirmed Type paroxetine HCl 20 mg tablet 20 mg PO QAM 04/17/19 12/22/21 History valacyclovir 1 gram tablet 1 mg PO UD PRN Cold Sores 04/16/21 12/22/21 History lorazepam 1 mg tablet 1 mg PO TID PRN Anxiety 05/29/21 12/22/21 History waqucfjd-stv-qhcle ac 400 1 tab PO QAM 07/15/21 12/22/21 History mcg-calcium carb 500 mg-vit K1 20 mcg tablet (Women's 50 Plus Multivitamin) zolpidem 5 mg tablet 5 mg PO HS PRN insomnia #0 tabs 07/20/21 12/22/21 Rx dulaglutide 3 mg/0.5 mL 3 mg subcut WK 09/09/21 12/22/21 History subcutaneous pen injector levothyroxine 112 mcg tablet 112 mcg PO Q2D 09/09/21 12/22/21 History phenazopyridine 200 mg tablet 200 mg PO UD PRN bladder pain 09/09/21 12/22/21 History (Pyridium) levothyroxine 100 mcg tablet 100 mcg PO Q2D #45 tabs 10/27/21 12/22/21 Rx hyoscyamine sulfate 0.125 mg 0.125 mg PO QID 11/04/21 12/22/21 History disintegrating tablet omeprazole 40 mg capsule,delayed 40 mg PO DAILY 11/04/21 12/22/21 History release rifaximin 550 mg tablet (Xifaxan) 550 mg PO BID #60 tabs 11/07/21 12/22/21 Rx tramadol 50 mg tablet 50 mg PO DAILY PRN moderate pain 11/07/21 12/22/21 Rx #15 tabs propranolol 20 mg tablet 20 mg PO TID 11/25/21 12/22/21 History lactulose 10 gram/15 mL oral 0 g DC Q8H 12/22/21 12/22/21 History solution magnesium oxide 400 mg PO DAILY 12/22/21 12/22/21 History potassium chloride 20 mEq 20 meq PO BID 12/22/21 12/22/21 History tablet,extended release(part/cryst) (Klor-Con M) rosuvastatin 20 mg tablet 20 mg PO HS 12/22/21 12/22/21 History Allergies Allergy/AdvReac Type Severity Reaction Status Date / Time bee venom protein (honey bee) Allergy Severe Anaphylaxis Verified 12/22/21 17:38 Influenza Virus Vaccines Allergy Severe Anaphylaxis Verified 12/22/21 17:38 tetracycline AdvReac Severe Severe Verified 12/22/21 17:38 stomach pains Past Med/Surg History Medical History Anemia HX Arthritis Moeller's esophagus with esophagitis Chronic diarrhea SOMETIMES Depression Diabetes mellitus, type 2 Diverticulitis of sigmoid colon Diverticulosis GERD (gastroesophageal reflux disease) GI bleed RECENT HOSPITALIZED - PT DENIES HX GI BLEED Heel spur B/L feet Hiatal hernia History of colon polyps BENIGN History of fractured vertebra CURRENT, HX FALL JULY 2021 - FELL OF THE TOILET - NO INTERVENTION AT PRESENT/ [facility] FOR TO DISCUSS [place] OPTIONS - POTENTIAL BACK BRACE History of kidney stones Hyperlipidemia Hypertension NO CURRENT MEDS Liver cirrhosis secondary to DAILY DAILY (nonalcoholic steatohepatitis) Spleen enlarged MONITORS - PT REPORTS FROM THE DAILY Stucco keratoses Temporomandibular joint disorder 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 Thyroid disease UTI (urinary tract infection) HX, JULY 2021 -HOSPITALIZED FOR , NOW RESOLVED DURING TESTING FOUND 2 LUMPS IN INTESTINES...REASON FOR UPCOMING COLONOSCOPY Surgical History H/O thumb surgery RT/LEFT JOINT REPAIR H/O total hysterectomy History of appendectomy History of arthroscopy of knee Left Knee - meniscus/cartilage History of colonoscopy History of cystoscopy History of esophagogastroduodenoscopy (EGD) History of tonsillectomy and adenoidectomy History of tooth extraction Hx of cholecystectomy Family History Brother Coronary heart disease Heart disease Mother Family history of diabetes mellitus Hypertension Heart disease Sister Family history of diabetes mellitus Son Family history of diabetes mellitus Father Family hx of colon cancer Hearing loss Hypertension Cancer Heart disease Grandfather (Maternal) Family hx of colon cancer Other No family history of adverse response to anesthesia No family history of bleeding disorder Social History Smoking Status: Never smoker Second Hand Exposure: No; Hx Alcohol Use: No Hx Substance Use: No Preferred Language: Malawian Communication Ability: Effective Rubble Placer Required: No Beliefs That Will Affect Care: None marital status: Current Living Situation: Spouse and Family Current Living Situation Comment: and sister current occupational status: employed and retired How many Children do You have: 0 Feels Safe at Home: Yes Assistive Devices: Brace/Splint/Immobilizer, Cane, Raised Toilet Seat, Walker and Other Review of Systems A total of 10 systems reviewed and were otherwise negative Physical Exam Vital Signs Vital Signs - 24 hr 12/22/21 13:00 12/22/21 13:00 12/22/21 13:00 Temperature 36.7 C Temperature Source Oral Pulse Rate 76 75 Pulse Rate from SpO2 Sensor 75 Pulse Rhythm Regular Pulse Strength Normal Respiratory Rate 18 14 Respiratory Effort / Characteristics Non-Labored Spontaneous Respiratory Depth Normal Respiratory Pattern Regular Blood Pressure 135/61 140/62 Blood Pressure Mean 85 88 Blood Pressure Position Lying Pulse Oximetry 94 95 Oxygen Delivery Method Room Air Sepsis Recent Fever Within 48 Hours No Sepsis New/Unexplained Change in Mental Status N/A Sepsis Action Taken by Nursing No Action Required 12/22/21 13:10 12/22/21 13:20 12/22/21 13:30 Temperature Temperature Source Pulse Rate 76 75 Pulse Rate from SpO2 Sensor 76 74 Pulse Rhythm Pulse Strength Respiratory Rate 13 14 Respiratory Effort / Characteristics Respiratory Depth Respiratory Pattern Blood Pressure 132/70 Blood Pressure Mean 90 Blood Pressure Position Pulse Oximetry 96 97 Oxygen Delivery Method Sepsis Recent Fever Within 48 Hours Sepsis New/Unexplained Change in Mental Status Sepsis Action Taken by Nursing 12/22/21 13:30 12/22/21 13:40 12/22/21 13:50 Temperature Temperature Source Pulse Rate 74 76 74 Pulse Rate from SpO2 Sensor 76 74 Pulse Rhythm Pulse Strength Respiratory Rate 16 17 Respiratory Effort / Characteristics Respiratory Depth Respiratory Pattern Blood Pressure Blood Pressure Mean Blood Pressure Position Pulse Oximetry 98 98 Oxygen Delivery Method Sepsis Recent Fever Within 48 Hours Sepsis New/Unexplained Change in Mental Status Sepsis Action Taken by Nursing 12/22/21 14:00 12/22/21 14:00 12/22/21 14:27 Temperature Temperature Source Pulse Rate 74 Pulse Rate from SpO2 Sensor 77 Pulse Rhythm Pulse Strength Respiratory Rate 14 Respiratory Effort / Characteristics Respiratory Depth Respiratory Pattern Blood Pressure 131/64 138/66 Blood Pressure Mean 86 90 Blood Pressure Position Pulse Oximetry 98 Oxygen Delivery Method Sepsis Recent Fever Within 48 Hours Sepsis New/Unexplained Change in Mental Status Sepsis Action Taken by Nursing 12/22/21 14:27 12/22/21 14:30 12/22/21 14:30 Temperature Temperature Source Pulse Rate 74 73 Pulse Rate from SpO2 Sensor 73 Pulse Rhythm Pulse Strength Respiratory Rate 14 13 Respiratory Effort / Characteristics Respiratory Depth Respiratory Pattern Blood Pressure 121/64 Blood Pressure Mean 83 Blood Pressure Position Pulse Oximetry 95 Oxygen Delivery Method Sepsis Recent Fever Within 48 Hours Sepsis New/Unexplained Change in Mental Status Sepsis Action Taken by Nursing 12/22/21 14:58 12/22/21 15:00 12/22/21 15:00 Temperature Temperature Source Pulse Rate 74 Pulse Rate from SpO2 Sensor 74 Pulse Rhythm Pulse Strength Respiratory Rate 16 Respiratory Effort / Characteristics Respiratory Depth Respiratory Pattern Blood Pressure 127/68 Blood Pressure Mean 87 Blood Pressure Position Pulse Oximetry 96 Oxygen Delivery Method Sepsis Recent Fever Within 48 Hours Sepsis New/Unexplained Change in Mental Status Sepsis Action Taken by Nursing 12/22/21 15:10 12/22/21 15:20 12/22/21 15:30 Temperature Temperature Source Pulse Rate 73 71 Pulse Rate from SpO2 Sensor Pulse Rhythm Pulse Strength Respiratory Rate 14 19 Respiratory Effort / Characteristics Respiratory Depth Respiratory Pattern Blood Pressure 111/62 Blood Pressure Mean 78 Blood Pressure Position Pulse Oximetry Oxygen Delivery Method Sepsis Recent Fever Within 48 Hours Sepsis New/Unexplained Change in Mental Status Sepsis Action Taken by Nursing 12/22/21 15:30 12/22/21 15:40 12/22/21 15:50 Temperature Temperature Source Pulse Rate 71 71 71 Pulse Rate from SpO2 Sensor Pulse Rhythm Pulse Strength Respiratory Rate 22 16 16 Respiratory Effort / Characteristics Respiratory Depth Respiratory Pattern Blood Pressure Blood Pressure Mean Blood Pressure Position Pulse Oximetry Oxygen Delivery Method Sepsis Recent Fever Within 48 Hours Sepsis New/Unexplained Change in Mental Status Sepsis Action Taken by Nursing 12/22/21 16:00 12/22/21 16:00 12/22/21 16:10 Temperature Temperature Source Pulse Rate 72 73 Pulse Rate from SpO2 Sensor Pulse Rhythm Pulse Strength Respiratory Rate 17 19 Respiratory Effort / Characteristics Respiratory Depth Respiratory Pattern Blood Pressure 114/57 L Blood Pressure Mean 76 Blood Pressure Position Pulse Oximetry Oxygen Delivery Method Sepsis Recent Fever Within 48 Hours Sepsis New/Unexplained Change in Mental Status Sepsis Action Taken by Nursing 12/22/21 16:20 Temperature Temperature Source Pulse Rate 71 Pulse Rate from SpO2 Sensor Pulse Rhythm Pulse Strength Respiratory Rate 12 Respiratory Effort / Characteristics Respiratory Depth Respiratory Pattern Blood Pressure Blood Pressure Mean Blood Pressure Position Pulse Oximetry Oxygen Delivery Method Sepsis Recent Fever Within 48 Hours Sepsis New/Unexplained Change in Mental Status Sepsis Action Taken by Nursing General: Well developed well nourished older female who is chronically ill- appearing but appears in no acute distress, breathing comfortably on room air. Normal speech, nonslurred. She is alert to person place and most of the date. HEENT: Normal cephalic atraumatic. Pupils are equal round and reactive to light. Mildly icteric. Extraocular movements are intact. Oropharynx is pink with moist mucous membranes. No swelling of the mouth lips or tongue. Neck: Supple with a midline trachea. No meningeal signs or stiffness, no JVD or bruits. No Stridor. Chest: Clear to auscultation bilaterally. No wheezes or rhonchi. No increased work of breathing. Heart: Regular rate and rhythm without murmurs or gallops. Abdomen: Soft nontender,. Mildly distended but without rebound guarding or rigidity. Extremities: No cyanosis clubbing or edema. No calf tenderness or assymetry Spine/Back. Non tender to palpation. No CVA tenderness Skin: Good turgor without rashes. Neurologic exam: Cranial nerves two through 12 are intact. Motor and sensation are intact and symmetrical throughout. No tremor or asterixis. Course Administered Medications Heparin Sodium (Porcine) (Heparin Sod 5,000 Unit/0.5 Ml Vial) 5,000 units SQ Q12 PRIMITIVO Stop: 01/21/22 20:59 Last Admin: 12/22/21 20:51 Dose: 5,000 units Documented By: PLF Magnesium Sulfate/Dextrose (Magnesium Sulfate / D5w) 1 gm in 100 mls @ 50 mls/hr IV Q2H PRIMITIVO Stop: 12/22/21 22:59 Last Admin: 12/22/21 21:50 Dose: 50 mls/hr Documented By: PLF Insulin Aspart (Insulin Aspart Per Unit) 0 units SC ACHS PRIMITIVO Stop: 01/21/22 18:42 Last Admin: 12/22/21 21:56 Dose: Not Given Documented By: Admin: 12/22/21 20:52 Dose: Not Given Documented By: PLF Lactulose (Lactulose Syrup 30 Gm/45 Ml Udp) 30 gm PO TID PRIMITIVO Stop: 01/21/22 20:59 Last Admin: 12/22/21 20:51 Dose: 30 gm Documented By: PLF Magnesium Oxide (Magnesium Oxide 400 Mg Tab) 400 mg PO BID PRIMITIVO Stop: 01/21/22 20:59 Last Admin: 12/22/21 20:50 Dose: 400 mg Documented By: PLF Nystatin (Nystatin Powder 15gm Btl) 1 appln EXT BID PRIMITIVO Stop: 01/21/22 20:59 Last Admin: 12/22/21 20:49 Dose: 1 appln Documented By: PLF Potassium Chloride (Potassium Chloride Crtab 20 Meq Tabcr) 20 meq PO BID PRIMITIVO Stop: 01/21/22 20:59 Last Admin: 12/22/21 20:49 Dose: 20 meq Documented By: PLF Propranolol HCl (Propranolol Hcl 20 Mg Tab) 20 mg PO TID PRIMITIVO Stop: 01/21/22 20:59 Last Admin: 12/22/21 20:50 Dose: 20 mg Documented By: PLF Rifaximin (Rifaximin 550 Mg Tablet) 550 mg PO BID PRIMITIVO Stop: 01/21/22 20:59 Last Admin: 12/22/21 20:50 Dose: 550 mg Documented By: PLF Discontinued Medications Sodium Chloride (Nss) 500 mls @ 999 mls/hr IV .Q31M ONE Stop: 12/22/21 14:51 Last Infusion: 12/22/21 16:47 Dose: 0 mls/hr Documented By: [id number] Admin: 12/22/21 15:01 Dose: 999 mls/hr Documented By: [id number] Magnesium Sulfate/Dextrose (Magnesium Sulfate / D5w) 1 gm in 100 mls @ 50 mls/hr IV ONE ONE Stop: 12/22/21 17:26 Last Infusion: 12/22/21 18:15 Dose: 0 mls/hr Documented By: [id number] Admin: 12/22/21 15:47 Dose: 50 mls/hr Documented By: [id number] Lactulose (Lactulose Syrup 30 Gm/45 Ml Udp) 30 gm PO NOW STA Stop: 12/22/21 15:46 Last Admin: 12/22/21 17:00 Dose: 30 gm Documented By: MAYCO Medical Decision Making Differential Diagnosis Hepatic encephalopathy, electrolyte or metabolic abnormality, liver failure, infection, cardiac disease Medical Records Attestation: I reviewed the patient's medical records. Home Medications Current Medication List: was personally reviewed by me Laboratory Data Attestation: I reviewed the patient's lab results. Result diagrams: 12/22/21 13:00 12/22/21 13:00 Lab Results 12/22/21 12/22/21 12/22/21 Range/Units 13:00 13:00 13:00 WBC 3.89 L (4.8-10.8) K/ul RBC 3.36 L (3.93-5.22) M/uL Hgb 10.4 L (12.0-16.0) g/dl Hct 30.6 L (34.1-44.9) % MCV 91.1 (80.0-100.0) fL MCH 31.0 (25.0-34.0) pg MCHC 34.0 (32.0-36.0) g/dL RDW Std Deviation 50.4 H (36.4-46.3) fL RDW Coeff of Charlee 15.0 H (11.5-14.5) % Plt Count 106 L (130-400) K/uL MPV 9.6 (9.4-12.3) fL Immature Gran % (Auto) 0.3 % Neut % (Auto) 46.4 % Lymph % (Auto) 30.1 % [place] % (Auto) 16.2 % Eos % (Auto) 6.7 % Baso % (Auto) 0.3 % Neut # (Auto) 1.81 (1.4-6.5) K/uL Lymph # (Auto) 1.17 L (1.2-3.4) K/uL [place] # (Auto) 0.63 (0.24-0.82) K/uL Eos # (Auto) 0.26 (0-0.50) K/uL Baso # (Auto) 0.01 (0-0.2) K/uL Immature Gran # (Auto) 0.01 (0.00-0.02) K/uL Ovalocytes 1+ PT 14.1 H (9.0-12.0) Seconds INR 1.3 H (0.9-1.1) APTT 28.5 (21.0-31.0) Seconds PTT Ratio 1.0 Sodium 139 (136-145) mmol/L Potassium 3.5 (3.5-5.1) mmol/L Chloride 104 (98-107) mmol/L Carbon Dioxide 30 (21-32) mmol/L Anion Gap 5 (3-11) BUN 14 (6-23) mg/dl Creatinine 1.09 (0.6-1.2) mg/dl Est Cr Clr Drug Dosing 46.4 ml/min Est GFR ( Amer) 60.4 ml/min Est GFR (Non-Af Amer) 52.1 ml/min BUN/Creatinine Ratio 12.8 (10-20) Glucose 191 H (70-99(Fasting)) mg/dl Calcium 10.8 H (8.5-10.1) mg/dl Magnesium 1.5 L (1.7-2.4) mg/dl Total Bilirubin 4.9 H (0.2-1.0) mg/dl AST 54 H (13-39) U/L ALT 29 (7-52) U/L Alkaline Phosphatase 211 H (34-104) U/L Ammonia (18-72) umol/L Total Protein 5.7 L (6.0-8.3) gm/dl Albumin 3.5 (3.4-5.0) gm/dl Globulin 2.2 L (2.5-4.0) gm/dl Albumin/Globulin Ratio 1.6 (0.9-2) Lipase 88 H (11-82) U/L SARS-CoV-2, RNA, NAAT (NEGATIVE) 12/22/21 12/22/21 12/22/21 Range/Units 13:00 13:00 15:45 WBC (4.8-10.8) K/ul RBC (3.93-5.22) M/uL Hgb (12.0-16.0) g/dl Hct (34.1-44.9) % MCV (80.0-100.0) fL MCH (25.0-34.0) pg MCHC (32.0-36.0) g/dL RDW Std Deviation (36.4-46.3) fL RDW Coeff of Charlee (11.5-14.5) % Plt Count (130-400) K/uL MPV (9.4-12.3) fL Immature Gran % (Auto) % Neut % (Auto) % Lymph % (Auto) % [place] % (Auto) % Eos % (Auto) % Baso % (Auto) % Neut # (Auto) (1.4-6.5) K/uL Lymph # (Auto) (1.2-3.4) K/uL [place] # (Auto) (0.24-0.82) K/uL Eos # (Auto) (0-0.50) K/uL Baso # (Auto) (0-0.2) K/uL Immature Gran # (Auto) (0.00-0.02) K/uL Ovalocytes PT (9.0-12.0) Seconds INR (0.9-1.1) APTT (21.0-31.0) Seconds PTT Ratio Sodium (136-145) mmol/L Potassium (3.5-5.1) mmol/L Chloride (98-107) mmol/L Carbon Dioxide (21-32) mmol/L Anion Gap (3-11) BUN (6-23) mg/dl Creatinine (0.6-1.2) mg/dl Est Cr Clr Drug Dosing ml/min Est GFR ( Amer) ml/min Est GFR (Non-Af Amer) ml/min BUN/Creatinine Ratio (10-20) Glucose (70-99(Fasting)) mg/dl Calcium (8.5-10.1) mg/dl Magnesium Cancelled (1.7-2.4) mg/dl Total Bilirubin (0.2-1.0) mg/dl AST (13-39) U/L ALT (7-52) U/L Alkaline Phosphatase (34-104) U/L Ammonia 89.0 H (18-72) umol/L Total Protein (6.0-8.3) gm/dl Albumin (3.4-5.0) gm/dl Globulin (2.5-4.0) gm/dl Albumin/Globulin Ratio (0.9-2) Lipase (11-82) U/L SARS-CoV-2, RNA, NAAT NEGATIVE (NEGATIVE) Imaging Data Attestation: I personally reviewed and interpreted this imaging study as follows: My Impression: Head CTno hemorrhage or mass-effect seen Radiologist's Impression: Head CT 12/22/21 14:[address] DOSE: 638.56 mGycm HISTORY: fall TECHNIQUE: Multiaxial CT images of the head were performed without the use of intravenous contrast. Automated exposure control was utilized for this study. A dose lowering technique was utilized adhering to the principles of ALARA. Comparison: Head CT 11/04/2021. Findings: Trace bilateral mastoid effusions, unchanged. The paranasal sinuses are clear. The calvarium and skull base are intact. The ventricles and sulci are within normal limits. There is no mass, hematoma, midline shift, or acute infarct. Impression: No acute intracranial abnormality. ACT 112: Negative or not required by law. Electronically signed by: Ivan Veronica M.D. 12/22/2021 3:24 PM ECG Data Attestation: I personally reviewed and interpreted this ECG as follows: Indication: + altered mental status and + other (Poor baseline/artifact) Rate (beats per minute): 75 Rhythm: + normal sinus ECG Intervals/blocks: + Normal QRS, + Normal QT and + Normal DC ECG Crossnore: + Normal ECG ST segments: + Nonspecific ST abnormalities ECG Findings: no PACs or no PVCs Comparison ECG Date: from (11/25/21) Change: no significant change MDM Narrative This patient comes in with increasing confusion she has a history of Daily and has been taking her meds as directed but she has been somewhat dehydrated. She seems mildly confused. She also fell 2 days ago so I did do a CAT scan of her head as well. IV access was established blood work was obtained. I did do a CAT scan given her fall and it was unremarkable. She has no fever or white count to suggest infection, she has baseline anemia. Her LFTs are baseline moderately elevated. Her ammonia is 89. I think this most likely is causing her symptoms of hepatic encephalopathy. She was given additional dose of lactulose here and I have consulted Dr. Stuart and the [facility] admitting team to see her in ER. Continuous cardiac monitoring: Orders placed in EMR for continuous cardiac monitoring. Upon my interpretation patient noted to be in normal sinus rhythm with a rate of 80. Impression & Plan Hepatic encephalopathy, Weakness, Liver cirrhosis secondary to DAILY, Lab test negative for COVID-19 virus Discharge Plan Visit Data Chief Complaint: Confusion Stated Complaint: CONFUSION ED Provider: Noe Kc Discharge Problem: Hepatic encephalopathy, Weakness, Liver cirrhosis secondary to DAILY, Lab test negative for COVID-19 virus Patient Disposition: Admitted As Inpatient Discharge Instructions Interventions: ED Discharge Assessment Last Done: 12/22/21 18:29
[2021-12-22 14:30] LABS: Basophils # (auto) 0.01 K/uL (0-0.2); Basophils % (auto) 0.3 %; Eosinophils # (auto) 0.26 K/uL (0-0.50); Eosinophils % (auto) 6.7 %; Hematocrit (blood only) 30.6 % (34.1-44.9); Hemoglobin 10.4 g/dl (12.0-16.0); Immature Granulocytes # (auto) 0.01 K/uL (0.00-0.02); Immature Granulocytes % (auto) 0.3 %; Lymphocytes # (auto) 1.17 K/uL (1.2-3.4); Lymphocytes % (auto) 30.1 %; Mean Platelet Volume 9.6 fL (9.4-12.3); Monocytes # (auto) 0.63 K/uL (0.24-0.82); Monocytes % (auto) 16.2 %; Neutrophils # (auto) 1.81 K/uL (1.4-6.5); Neutrophils % (auto) 46.4 %; Platelet Count 106 K/uL (130-400); White Blood Count 3.89 K/ul (4.8-10.8)
[2021-12-22 14:41] LABS: INR 1.3 (0.9-1.1); Partial Thromboplastin Time 28.5 Seconds (21.0-31.0); Prothrombin Time 14.1 Seconds (9.0-12.0)
[2021-12-22 14:50] LABS: Albumin Globulin Ratio 1.6 (0.9-2); Albumin Level 3.5 gm/dl (3.4-5.0); BUN Creatinine Ratio 12.8 (10-20); Bilirubin,Total 4.9 mg/dl (0.2-1.0); Calcium 10.8 mg/dl (8.5-10.1); Creatinine Clr Calc Pharmacy 46.4 ml/min; Est GFR (African American) 60.4 ml/min; Est GFR (Non-African American) 52.1 ml/min; Globulin 2.2 gm/dl (2.5-4.0); Magnesium 1.5 mg/dl (1.7-2.4); Potassium 3.5 mmol/L (3.5-5.1); Total Protein 5.7 gm/dl (6.0-8.3)
[2021-12-22 15:25] LABS: Mean Corpuscular Volume 91.1 fL (80.0-100.0); Ovalocytes 1+; RDW Standard Deviation 50.4 fL (36.4-46.3); Red Blood Count 3.36 M/uL (3.93-5.22)
--- NOTE | 2021-12-22 15:26 | CT Scan Report ---
HEAD CT NONCONTRAST CT DOSE: 638.56 mGycm HISTORY: fall TECHNIQUE: Multiaxial CT images of the head were performed without the use of intravenous contrast. A utomated exposure control was utilized for this study. A dose lowering technique was utilized adheri ng to the principles of ALARA. Comparison: Head CT 11/04/2021. Findings: Trace bilateral mastoid effusions, unchanged. The paranasal sinuses are clear. The calvariu m and skull base are intact. The ventricles and sulci are within normal limits. There is no mass, hem atoma, midline shift, or acute infarct. Impression: No acute intracranial abnormality. ACT 112: Negative or not required by law. Electronically signed by: Ivan Veronica M.D. 12/22/2021 3:24 PM
[2021-12-22] MEDS ORDERED: MAGNESIUM SULFATE / D5W 1 GM/100 ML BAG IV ONE (15:27)
[2021-12-22] MEDS ORDERED: LACTULOSE SYRUP 30 GM/45 ML UDP PO STA (15:45)
--- NOTE | 2021-12-22 16:05 | Electrocardiogram Report ---
Test Reason : Blood Pressure : / mmHG Vent. Rate : 075 BPM Atrial Rate : 064 BPM P-R Int : 000 ms QRS Dur : 080 ms QT Int : 412 ms P-R-T Axes : 000 -08 003 degrees QTc Int : 460 ms Poor data quality, interpretation may be adversely affected Probable Sinus rhythm Moderate voltage criteria for LVH, may be normal variant Cannot rule out Inferior infarct , age undetermined Abnormal ECG When compared with ECG of 25-NOV-2021 11:56, No significant change Confirmed by Reaz Webster ([id number]) on 12/22/2021 4:04:53 PM Referred By: Confirmed By:Reza Webster
--- NOTE | 2021-12-22 16:20 | History & Physical Report ---
Date of Service December 22, 2021 Assessment & Plan (1) Hepatic encephalopathy: Plan: Patient is here for confusion and concern for hepatic encephalopathy ammonia is elevated but she has had previous issues of elevation without much confusion will for secondary source of encephalopathy such as infectious sources continue escalated doses of lactulose continue Xifaxan Patient recently was discharged after a concern for stercoral colitis and typhlitis associate with neutropenia was treated with Zosyn transition to Augmentin at time of discharge Since had issues with this in the past which would be counterproductive for person trying to treat back encephalopathy with cathartic agents we will check a KUB for stool load on admission Check an arterial Doppler of the liver look for hepatic thrombosis Continue propranolol for reduction in portal vein pressure (2) Primary hyperparathyroidism: Plan: Patient is a history of primary hyperparathyroidism however her last parathyroid hormone was checked in October was normal and her PTH RP was checked also in October and was normal. Her calcium is elevated has been persistently mildly elevated most recently. Repeat parathyroid hormone May consider dose of pamidronate or zoledronic acid Vitamin D/PTH checked on last admission: 25/25.6. - PTH related protein sent out last admission: 9. 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 intake at home over the last few days and was instructed to have additional doses of lactulose as she is been having decreasing bowel movements at home. Her weakness is caused her to fall at least 1 occasion hitting her head without loss of consciousness. Supposedly being evaluated for work-up of her liver failure and possible transplantation She does have becoming more confused at home she is denies any dysuria urinary frequency she has diarrhea of course. She has no upper respiratory symptoms complaints of sore throat or skin lesions or rashes with exception of some intertrigo Allergies Allergy/AdvReac Type Severity Reaction Status Date / Time bee venom protein (honey bee) Allergy Severe Anaphylaxis Verified 11/04/21 16:01 Influenza Virus Vaccines Allergy Severe Anaphylaxis Verified 11/04/21 16:01 tetracycline AdvReac Severe Severe Verified 11/04/21 16:01 stomach pains Home Medications Medication Instructions Recorded Confirmed Type paroxetine HCl 20 mg tablet 20 mg PO QAM 04/17/19 11/25/21 History valacyclovir 1 gram tablet 1 mg PO UD PRN Cold Sores 04/16/21 11/04/21 History lorazepam 1 mg tablet 1 mg PO TID PRN Anxiety 05/29/21 11/25/21 History orlneopw-upl-tidcl ac 400 1 tab PO QAM 07/15/21 11/25/21 History mcg-calcium carb 500 mg-vit K1 20 mcg tablet (Women's 50 Plus Multivitamin) zolpidem 5 mg tablet 5 mg PO HS PRN insomnia #0 tabs 07/20/21 11/04/21 Rx dulaglutide 3 mg/0.5 mL 3 mg subcut WK 09/09/21 11/25/21 History subcutaneous pen injector levothyroxine 112 mcg tablet 112 mcg PO Q2D 09/09/21 11/25/21 History phenazopyridine 200 mg tablet 200 mg PO UD PRN bladder pain 09/09/21 11/04/21 History (Pyridium) cholestyramine-aspartame 4 gram 4 g PO BID PRN .bloating 10/21/21 11/25/21 History oral powder for susp in a packet (Cholestyramine Light) magnesium oxide 400 mg PO BID #60 tabs 10/24/21 11/25/21 Rx levothyroxine 100 mcg tablet 100 mcg PO Q2D #45 tabs 10/27/21 11/25/21 Rx hyoscyamine sulfate 0.125 mg 0.125 mg PO QID 11/04/21 11/25/21 History disintegrating tablet omeprazole 40 mg capsule,delayed 40 mg PO DAILY 11/04/21 11/25/21 History release oxycodone 5 mg tablet 5 mg PO Q6H PRN severe pain (scale 11/07/21 11/25/21 Rx score 7-10) #10 tabs rifaximin 550 mg tablet (Xifaxan) 550 mg PO BID #60 tabs 11/07/21 11/25/21 Rx tramadol 50 mg tablet 50 mg PO DAILY PRN moderate pain 11/07/21 11/25/21 Rx #15 tabs potassium bicarbonate-citric acid 25 meq PO TID 11/25/21 11/25/21 History 25 mEq effervescent tablet (Klor-Con/EF) propranolol 20 mg tablet 20 mg PO TID 11/25/21 11/25/21 History amoxicillin 875 mg-potassium 1 tab PO BID #7 tabs 12/01/21 Rx clavulanate 125 mg tablet lactulose 10 gram/15 mL oral 200 g (300 mL) CO Q8H PRN 12/01/21 Rx solution constipation #946 mL lactulose 20 gram/30 mL oral 30 g (45 mL) PO TID #1,500 mL 12/01/21 11/25/21 Rx solution Past Med/Surg History Medical History Anemia HX Arthritis Moeller's esophagus with esophagitis Chronic diarrhea SOMETIMES Depression Diabetes mellitus, type 2 Diverticulitis of sigmoid colon Diverticulosis GERD (gastroesophageal reflux disease) GI bleed RECENT HOSPITALIZED - PT DENIES HX GI BLEED Heel spur B/L feet Hiatal hernia History of colon polyps BENIGN History of fractured vertebra CURRENT, HX FALL JULY 2021 - FELL OF THE TOILET - NO INTERVENTION AT PRESENT/ DR [facility] SEPT[facility] FOR TO DISCUSS TX OPTIONS - POTENTIAL BACK BRACE History of kidney stones Hyperlipidemia Hypertension NO CURRENT MEDS 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) Spleen enlarged MONITORS - PT REPORTS FROM THE REBOLLAR Stucco keratoses Temporomandibular joint disorder 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 Thyroid disease UTI (urinary tract infection) HX, JULY 2021 -HOSPITALIZED FOR , NOW RESOLVED DURING TESTING FOUND 2 LUMPS IN INTESTINES...REASON FOR UPCOMING COLONOSCOPY Surgical History H/O thumb surgery RT/LEFT JOINT REPAIR H/O total hysterectomy History of appendectomy History of arthroscopy of knee Left Knee - meniscus/cartilage History of colonoscopy History of cystoscopy History of esophagogastroduodenoscopy (EGD) History of tonsillectomy and adenoidectomy History of tooth extraction Hx of cholecystectomy Family History Brother Coronary heart disease Heart disease Mother Family history of diabetes mellitus Hypertension Heart disease Sister Family history of diabetes mellitus Son Family history of diabetes mellitus Father Family hx of colon cancer Hearing loss Hypertension Cancer Heart disease Grandfather (Maternal) Family hx of colon cancer Other No family history of adverse response to anesthesia No family history of bleeding disorder Social History Smoking Status: Never smoker Second Hand Exposure: No; Hx Alcohol Use: No Hx Substance Use: No Preferred Language: Lao Communication Ability: Effective Die Tester Required: No Beliefs That Will Affect Care: None marital status: Current Living Situation: Spouse Current Living Situation Comment: and sister current occupational status: employed and retired How many Children do You have: 0 Feels Safe at Home: Yes Assistive Devices: Brace/Splint/Immobilizer, Cane, Raised Toilet Seat, Walker and Other Review of Systems Review of Systems: Mild distress and fatigue mostly increased confusion no headache, no visual changes no speech or swallowing issues no chest pain, pressure or palpitations no shortness of breath, cough or wheezes no abdominal pain, nausea or vomiting, chronically persistent diarrhea no dysuria, hematuria or frequency no focal joint pain chronic lower extremity swelling no back pain, CVA tenderness or radicular pain no bruising, bleeding or rashes no focal signs of weakness or numbness or confusion and delirium at times no complaints of anxiety or depression.. Physical Exam Physical Exam: The patient appeared chronically ill and jaundiced Vital signs as documented. Head exam is normocephalic atraumatic sclera are icteric Neck is with 1-2 JVD, thyromegaly, or carotid bruits. Lungs are clear to auscultation, no focal loss of breath sounds Cardiac exam, Rhythm is regular.. No murmurs, rubs or gallops. Abdominal exam reveals normal bowel sounds, soft non tender, no masses surprisingly no hepatomegaly or concerns for ascites Extremities are trace to 1+ edematous and both pedal pulses are present Neurologic exam is alert and oriented, does become confused easily no focal loss of strength or sensation no signs of asterixis Skin is with intertrigo and jaundice Psychologically is without concerns for anxiety or depression.. Results & Data Results & Data ([facility]) Vital Signs (Past 12 Hours) Vital Signs Temp Pulse Resp BP Pulse Ox O2 Del Method 12/22/21 14:30 73 13 95 12/22/21 14:30 121/64 12/22/21 14:27 74 14 12/22/21 14:27 138/66 12/22/21 14:00 74 14 98 12/22/21 14:00 131/64 12/22/21 13:50 74 98 12/22/21 13:40 76 17 98 12/22/21 13:30 74 16 12/22/21 13:30 132/70 12/22/21 13:20 75 14 97 12/22/21 13:10 76 13 96 12/22/21 13:00 75 14 95 12/22/21 13:00 140/62 12/22/21 13:00 98.1 F 76 18 135/61 94 Room Air PG Care Time/CCT Total # of Minutes Spent Total Time Spent with Patient: Total time spent is greater than 50% in coordination of care (as documented) at patient's floor/unit and/or counseling patient: Coding Level of Care Code 26129 Initial Inpt Care Lvl 3 Diagnoses Hepatic encephalopathy K72.90 Primary hyperparathyroidism E21.0 Diabetes mellitus, type 2 E11.9 Hypothyroidism E03.9 Hypomagnesemia E83.42
[2021-12-22 18:03] LABS: Appearance Urine Clear (Clear); Bilirubin Urine Negative (Negative); Blood Urine Negative (Negative); Color Urine Dark Yellow; Glucose Urine UA Negative (Negative); Ketones Urine Negative (Negative); Leukocyte Esterase Urine Negative (Negative); Nitrite Urine Negative (Negative); Protein Urine Negative (Negative); Specific Gravity Urine 1.019 (1.000-1.030); Urobilinogen Urine Positive (Negative); pH Urine 7.5 (4.5-7.5)
[2021-12-22] MEDS ORDERED: traMADol HCL 50 MG TABLET PO PRN (18:43)
[2021-12-22] MEDS ORDERED: GLUCOSE 40% GEL 15 GM TUBE PO PRN (18:43)
[2021-12-22] MEDS ORDERED: ALUMINUM/MAGNESIUM SUSP 30 ML UDC PO PRN (18:43)
[2021-12-22] MEDS ORDERED: GLUCAGON FOR INJ 1 MG VIAL SQ PRN (18:43)
[2021-12-22] MEDS ORDERED: LACTULOSE 200GM/700ML WTR ENEMA PR PRN (18:43)
[2021-12-22] MEDS ORDERED: DEXTROSE 50% 50 ML SYRINGE IV PRN (18:43)
[2021-12-22] MEDS ORDERED: GLUCOSE 10 TAB/TUBE PO PRN (18:43)
[2021-12-22] MEDS ORDERED: CHOLESTYRAMINE LIGHT 4 GM PKT PO PRN (18:43)
[2021-12-22] MEDS ORDERED: CARBOHYDRATES FOR HYPOGLYCEMIA PO PRN (18:43)
[2021-12-22] MEDS ORDERED: ONDANSETRON INJ 2 MG/ML 2 ML VIAL IV PRN (18:43)
--- NOTE | 2021-12-22 19:13 | XRay Report ---
KUB CLINICAL HISTORY: eval stool load COMPARISON STUDY: CT of the abdomen and pelvis November 26, 2021. FINDINGS: Incidental note is made of cholecystectomy clips. There is no evidence for a bowel obstruct ion. Amount of stool is within normal limits. No renal calculi are identified. Pelvic calcifications reflect phleboliths. IMPRESSION: 1. No evidence for a bowel obstruction. 2. Amount of stool within normal limits. ACT 112: Negative or not required by law. Electronically signed by: Keven Bettencourt M.D. 12/22/2021 7:11 PM
[2021-12-22] MEDS: POTASSIUM CHLORIDE CRTAB 20 MEQ TABCR PO SCH (20:49)
[2021-12-22] MEDS: NYSTATIN POWDER 15GM BTL EXT SCH (20:49)
[2021-12-22] MEDS: PROPRANOLOL HCL 20 MG TAB PO SCH (20:50)
[2021-12-22] MEDS: rifAXIMin 550 MG TABLET PO SCH (20:50)
[2021-12-22] MEDS: MAGNESIUM OXIDE 400 MG TAB PO SCH (20:50)
[2021-12-22] MEDS: HEPARIN SOD 5,000 UNIT/0.5 ML VIAL SQ SCH (20:51)
[2021-12-22] MEDS: LACTULOSE SYRUP 30 GM/45 ML UDP PO SCH (20:51)
[2021-12-22] MEDS: INSULIN ASPART PER UNIT SC SCH ×2 (20:52→21:56)
[2021-12-22] MEDS: MAGNESIUM SULFATE / D5W 1 GM/100 ML BAG IV SCH (21:50)
[2021-12-23] MEDS: MAGNESIUM SULFATE / D5W 1 GM/100 ML BAG IV SCH (02:00)
[2021-12-23 06:21] LABS: Hematocrit (blood only) 29.5 % (34.1-44.9); Mean Platelet Volume 9.5 fL (9.4-12.3); Platelet Count 109 K/uL (130-400); White Blood Count 4.26 K/ul (4.8-10.8)
[2021-12-23 06:48] LABS: Albumin Globulin Ratio 1.7 (0.9-2); Albumin Level 3.3 gm/dl (3.4-5.0); BUN Creatinine Ratio 8.7 (10-20); Calcium 10.3 mg/dl (8.5-10.1); Est GFR (African American) 74.2 ml/min; Magnesium 1.9 mg/dl (1.7-2.4); Total Protein 5.3 gm/dl (6.0-8.3)
[2021-12-23 06:53] LABS: INR 1.3 (0.9-1.1)
[2021-12-23] MEDS: LEVOTHYROXINE SODIUM 100 MCG TABLET PO SCH (07:01)
[2021-12-23 07:14] LABS: Basophils # (auto) 0.01 K/uL (0-0.2); Basophils % (auto) 0.2 %; Echinocytes 2+; Eosinophils # (auto) 0.38 K/uL (0-0.50); Eosinophils % (auto) 8.9 %; Immature Granulocytes # (auto) 0.01 K/uL (0.00-0.02); Immature Granulocytes % (auto) 0.2 %; Lymphocytes # (auto) 2.03 K/uL (1.2-3.4); Lymphocytes % (auto) 47.7 %; Mean Corpuscular Hemoglobin 30.2 pg (25.0-34.0); Mean Corpuscular Hgb Conc 33.9 g/dL (32.0-36.0); Mean Corpuscular Volume 89.1 fL (80.0-100.0); Monocytes # (auto) 0.75 K/uL (0.24-0.82); Monocytes % (auto) 17.6 %; Neutrophils # (auto) 1.08 K/uL (1.4-6.5); Neutrophils % (auto) 25.4 %; Polychromasia 1+; RDW Coefficient of Variation 14.6 % (11.5-14.5); RDW Standard Deviation 47.7 fL (36.4-46.3); Red Blood Count 3.31 M/uL (3.93-5.22)
[2021-12-23 07:39] LABS: Estimated Average Glucose 108 mg/dl; Hemoglobin A1C 5.4 % (4.5-5.6)
[2021-12-23] MEDS: HEPARIN SOD 5,000 UNIT/0.5 ML VIAL SQ SCH ×2 (07:48→20:18)
[2021-12-23] MEDS: LACTULOSE SYRUP 30 GM/45 ML UDP PO SCH ×3 (07:49→20:18)
[2021-12-23] MEDS: PARoxetine HCL 20 MG TAB PO SCH (07:49)
[2021-12-23] MEDS: NYSTATIN POWDER 15GM BTL EXT SCH ×2 (07:49→20:17)
[2021-12-23] MEDS: PANTOprazole 40 MG TAB PO SCH (07:49)
[2021-12-23] MEDS: POTASSIUM CHLORIDE CRTAB 20 MEQ TABCR PO SCH ×2 (07:50→20:17)
[2021-12-23] MEDS: PROPRANOLOL HCL 20 MG TAB PO SCH ×3 (07:50→20:17)
[2021-12-23] MEDS: rifAXIMin 550 MG TABLET PO SCH ×2 (07:50→20:17)
[2021-12-23] MEDS: MAGNESIUM OXIDE 400 MG TAB PO SCH ×2 (07:50→20:17)
[2021-12-23] MEDS: CEROVITE ADV FORMULA TAB PO SCH (07:50)
--- NOTE | 2021-12-23 08:32 | Ultrasound Report ---
US duplex portal hepatic veins HISTORY: 66 years-old Female eval for thrombosis worsening encephalopathy acute generalized abdomina l pain with cirrhosis COMPARISON: CT abdomen and pelvis 11/26/2021 TECHNIQUE: Multiple real-time sonographic images of the hepatic vessels were obtained assessing herson homero appearance, color and spectral flow FINDINGS: Hepatopedal flow within the portal vein. There is no flow identified within the portion of the left p ortal vein. Recanalized umbilical vein. No occlusive thrombus identified. Patent splenic and portal v eins. Cirrhotic morphology of the liver. Hepatic artery is patent with peak systolic velocities measu ring up to 136 cm/s. IMPRESSION: 1. Cirrhotic liver. 2. Hepatopedal flow within the portal vein. Questioned partially occlusive thrombus within the left p ortal vein. 3. Patent hepatic veins. ACT 112: Negative or not required by law. The above report was generated using voice recognition software. It may contain grammatical, syntax o r spelling errors. Electronically signed by: Caleb Shearer M.D. 12/23/2021 8:31 AM
[2021-12-23] MEDS: INSULIN ASPART PER UNIT SC SCH ×4 (08:47→20:24)
--- NOTE | 2021-12-23 13:45 | Hospitalist Progress Note ---
Date of Service December 23, 2021 Assessment & Plan (1) Hepatic encephalopathy: Plan: NH3 was elevated on admission. Stool on KUB was normal. Portal vein u/s with possibly partial occlusive left portal vein thrombus. - Continue lactulose - Continue Xifaxan - Continue propranolol for reduction in portal vein pressure (2) Primary hyperparathyroidism: Plan: Last parathyroid hormone was checked in October and was normal. Her calcium is elevated has been persistently mildly elevated most recently. - Repeat parathyroid hormone this admission was 27.7. (3) Diabetes mellitus, type 2: Plan: A1c was 5.4% this admission. - Hold home meds - Sliding scale insulin (4) Hypothyroidism: Plan: - Continue Synthroid 100 & 112 mcg daily Plan DVT ppx: Heparin 5,000 units SQ Q12h Admission and Anticipated Discharge Date Admission Date: December 22, 2021 Subjective Stable this morning. Woke up easily. No slurred speech. Reports no fevers/chills, chest pain, shortness of breath, abdominal pain, nausea, or vomiting. Reports having 6-7 BMs overnight. Physical Exam Constitutional: WD/WN, vitals as above Eyes: EOM intact bilaterally; no conjunctival abnormality ENMT: external ear and nose normal, oropharynx normal Neck: trachea midline, no thyromegaly normal visual inspection Respiratory: normal respiratory effort, lungs clear to auscultation no respiratory distress Cardiovascular: RRR, no murmur, no edema Gastrointestinal (Abdomen): Inspection/Auscultation: abdomen normal to inspection; abdomen not distended Musculoskeletal: no cyanosis or clubbing, extremities motor strength 5/5 Skin: no rashes, warm and dry Neurologic: moves all extremities and awake Psychiatric: Orientation: alert, oriented to person and cooperative Results & Data Results & Data ([facility]) Vital Signs (Past 12 Hours) Vital Signs Temp Pulse Resp BP Pulse Ox O2 Del Method 12/23/21 08:00 Room Air 12/23/21 07:58 36.5 C 70 18 137/64 96 Room Air PG Care Time/CCT Total # of Minutes Spent Total Time Spent with Patient: Total time spent is greater than 50% in coordination of care (as documented) at patient's floor/unit and/or counseling patient: Coding Level of Care Code 76420 Subseq Hosp Care Lvl 2 Diagnoses Hepatic encephalopathy K72.90 Primary hyperparathyroidism E21.0 Diabetes mellitus, type 2 E11.9 Hypothyroidism E03.9
[2021-12-23] MEDS ORDERED: IOVERSOL 350 MG 100mL Prefilled Syringe IV ONE (17:25)
--- NOTE | 2021-12-23 17:46 | CT Scan Report ---
CT abdomen w IV con CLINICAL HISTORY: Portal vein thrombosis? TECHNIQUE: Helical axial images of the abdomen were obtained. Automated dose lowering techniques and/ or adjustment according to patient size were utilized for this exam. This exam was performed with in travenous contrast. CT DOSE: 295.06 mGy.cm Comparison: Comparison is made to CT abdomen pelvis 11/26/2021 FINDINGS: Lower chest: Moderate atherosclerosis is seen. Liver: Nodular contour of the liver is seen compatible with cirrhosis. Gallbladder and biliary tree: Patient is status post cholecystectomy. Physiologic prominence of the b iliary ducts is noted. Pancreas: Unremarkable, no focal lesions. Spleen: The spleen is prominent. Adrenals: Unremarkable. Kidneys and ureters: Unremarkable. Bowel: Unremarkable. Lymph nodes Retroperitoneal: Subcentimeter lymph nodes are noted. Mesenteric: Unremarkable. Peritoneum: Normal. Vessels: The portal vein is patent. Atherosclerotic disease is seen. Varices are seen about the esoph fernanda and stomach and there is recanalization of the umbilical vein. Abdominal wall: Unremarkable. Bones: Degenerative changes are seen. There is a chronic compression deformity of the L4 vertebral hannah dy. IMPRESSION: No evidence of portal vein thrombus. Cirrhosis and portal hypertension are seen. Additional findings as above. ACT 112: Negative or not required by law. Electronically signed by: Kiel Cross M.D. 12/23/2021 5:44 PM
[2021-12-24] MEDS ORDERED: LEVOTHYROXINE SODIUM 112 MCG TABLET PO SCH (06:30)
[2021-12-24 07:04] LABS: Hematocrit (blood only) 28.3 % (34.1-44.9); Hemoglobin 9.7 g/dl (12.0-16.0); Platelet Count 92 K/uL (130-400); White Blood Count 2.94 K/ul (4.8-10.8)
[2021-12-24 07:13] LABS: INR 1.4 (0.9-1.1); Prothrombin Time 14.8 Seconds (9.0-12.0)
[2021-12-24 07:30] LABS: Albumin Globulin Ratio 1.6 (0.9-2); Albumin Level 3.1 gm/dl (3.4-5.0); BUN Creatinine Ratio 10.4 (10-20); Bilirubin,Total 5.2 mg/dl (0.2-1.0); Calcium 10.2 mg/dl (8.5-10.1); Creatinine Clr Calc Pharmacy 52.8 ml/min; Est GFR (African American) 70.4 ml/min; Est GFR (Non-African American) 60.8 ml/min; Globulin 1.9 gm/dl (2.5-4.0); Magnesium 1.5 mg/dl (1.7-2.4); Potassium 3.6 mmol/L (3.5-5.1)
[2021-12-24 07:50] LABS: Basophils # (auto) 0.01 K/uL (0-0.2); Basophils % (auto) 0.3 %; Eosinophils # (auto) 0.28 K/uL (0-0.50); Eosinophils % (auto) 9.5 %; Immature Granulocytes # (auto) 0.01 K/uL (0.00-0.02); Immature Granulocytes % (auto) 0.3 %; Lymphocytes % (auto) 40.8 %; Mean Corpuscular Hemoglobin 30.9 pg (25.0-34.0); Mean Corpuscular Hgb Conc 34.3 g/dL (32.0-36.0); Mean Corpuscular Volume 90.1 fL (80.0-100.0); Monocytes # (auto) 0.63 K/uL (0.24-0.82); Monocytes % (auto) 21.4 %; Neutrophils % (auto) 27.7 %; RBC Morphology Unremarkable; RDW Standard Deviation 49.2 fL (36.4-46.3); Red Blood Count 3.14 M/uL (3.93-5.22)
[2021-12-24] MEDS: HEPARIN SOD 5,000 UNIT/0.5 ML VIAL SQ SCH ×2 (09:05→21:06)
[2021-12-24] MEDS: MAGNESIUM OXIDE 400 MG TAB PO SCH ×2 (09:06→21:08)
[2021-12-24] MEDS: INSULIN ASPART PER UNIT SC SCH ×4 (09:13→21:07)
[2021-12-24] MEDS: CEROVITE ADV FORMULA TAB PO SCH (09:13)
[2021-12-24] MEDS: NYSTATIN POWDER 15GM BTL EXT SCH ×2 (09:16→21:08)
[2021-12-24] MEDS: PARoxetine HCL 20 MG TAB PO SCH (09:17)
[2021-12-24] MEDS: POTASSIUM CHLORIDE CRTAB 20 MEQ TABCR PO SCH ×2 (09:17→21:08)
[2021-12-24] MEDS: PROPRANOLOL HCL 20 MG TAB PO SCH ×3 (09:17→21:06)
[2021-12-24] MEDS: rifAXIMin 550 MG TABLET PO SCH ×2 (09:18→21:08)
[2021-12-24] MEDS: LACTULOSE SYRUP 30 GM/45 ML UDP PO SCH ×3 (09:34→21:06)
--- NOTE | 2021-12-24 09:35 | Gastrointestinal Consultation ---
Date of Consultation December 24, 2021 Assessment & Plan (1) Hepatic encephalopathy: -Continue Xifaxan 550 mg BID -Continue Lactulose 30 gm TID -Goal is for 3-4 bowel movements daily -Agree with excluding other causes of encephalopathy (2) 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: MELD 14 at present, patient notes it was 19 last week prompting a referral to hepatology at [facility]. She notes she hasn't seen them at this point and is not sure if she has a scheduled appointment. I do not have outpatient records to further elaborate on this. -Avoid NSAIDs -Avoid alcohol -Tylenol safe up to 2000 mg daily -Limit sodium to 2000 mg daily -HCC surveillance per outpatient team (3) Portal hypertension: EGD in May 2020 with grade 1 esophageal varices. Patient is prescribed Propranolol 20 mg TID and would advise continuing this. Would also continue Omeprazole 40 mg daily. Per review of the chart, patient had a doppler US on admission that questioned a possible partial portal vein thrombus which appears new since previous abdominal imaging. She then had a CT abdomen that did not demonstrate a thrombus. GI has been asked for an opinion regarding repeating EGD prior to consideration of anticoagulation. Unfortunately patient has eaten a full breakfast tray, so we cannot proceed with an EGD today. We can plan for EGD tomorrow vs outpatient EGD. Would consider obtaining a hematology consult for their opinion on whether patient should be anticoagulated for this possible finding. Supervising Physician Co-Signing Physician Notes Agree with DOMENIC Maya as above Abd: Soft, NT, ND, +BS, No appreciable HSM Proceed with EGD in AM (could not be done today as patient ate) Questionable Portal Vein Thrombosis on imaging, will make further recommendations regarding anticoagulation following EGD tomorrow History of Present Illness Reason for Consultation: Hepatic encephalopathy; NEW portal vein thrombosis Attending Physician: Hoang Kurtz MD History of Present Illness Patient is a 66 yo female followed by [facility] with a PMH of cirrhosis due to nonalcoholic steatohepatitis. She presents to the hospital with concerns for hepatic encephalopathy. reportedly, symptoms worsened over several days. She notes she hadn't been eating and wasn't moving her bowels. She had discussed her symptoms with her outpatient GI and notes that they told her to take more Lactulose. She notes that she had overall weakness, fatigue, and malaise. She notes that she was referred from [facility] GI locally to [facility] hepatology in [facility]. She notes that last week, they cassie dwayne a referral for her to see a transplant hepatology team at [facility]. I do not have records of this. She notes she doesn't have the appointment scheduled yet. She last had an EGD in May 2020 that indicated grade 1 varices. Upon presentation to the ED, her ammonia was mildly elevated around 90. It is 83 this morning. She notes that she is prescribed Xifaxan 550 mg BID at home. She takes Lactulose 3 times daily but is unsure what dose. She uses Omeprazole 40 mg daily. She takes propranolol 20 mg TID. MELD 14 today. US Doppler questioned a possible partial portal vein thrombus. Follow-up CT a bdomen did not indicate a thrombus. Allergies Allergy/AdvReac Type Severity Reaction Status Date / Time bee venom protein (honey bee) Allergy Severe Anaphylaxis Verified 12/22/21 17:38 Influenza Virus Vaccines Allergy Severe Anaphylaxis Verified 12/22/21 17:38 tetracycline AdvReac Severe Severe Verified 12/22/21 17:38 stomach pains Home Medications Medication Instructions Recorded Confirmed Type paroxetine HCl 20 mg tablet 20 mg PO QAM 04/17/19 12/22/21 History valacyclovir 1 gram tablet 1 mg PO UD PRN Cold Sores 04/16/21 12/22/21 History lorazepam 1 mg tablet 1 mg PO TID PRN Anxiety 05/29/21 12/22/21 History tymigrsv-hap-dfemh ac 400 1 tab PO QAM 07/15/21 12/22/21 History mcg-calcium carb 500 mg-vit K1 20 mcg tablet (Women's 50 Plus Multivitamin) zolpidem 5 mg tablet 5 mg PO HS PRN insomnia #0 tabs 07/20/21 12/22/21 Rx dulaglutide 3 mg/0.5 mL 3 mg subcut WK 09/09/21 12/22/21 History subcutaneous pen injector levothyroxine 112 mcg tablet 112 mcg PO Q2D 09/09/21 12/22/21 History phenazopyridine 200 mg tablet 200 mg PO UD PRN bladder pain 09/09/21 12/22/21 History (Pyridium) levothyroxine 100 mcg tablet 100 mcg PO Q2D #45 tabs 10/27/21 12/22/21 Rx hyoscyamine sulfate 0.125 mg 0.125 mg PO QID 11/04/21 12/22/21 History disintegrating tablet omeprazole 40 mg capsule,delayed 40 mg PO DAILY 11/04/21 12/22/21 History release rifaximin 550 mg tablet (Xifaxan) 550 mg PO BID #60 tabs 11/07/21 12/22/21 Rx tramadol 50 mg tablet 50 mg PO DAILY PRN moderate pain 11/07/21 12/22/21 Rx #15 tabs propranolol 20 mg tablet 20 mg PO TID 11/25/21 12/22/21 History lactulose 10 gram/15 mL oral 0 g IL Q8H 12/22/21 12/22/21 History solution magnesium oxide 400 mg PO DAILY 12/22/21 12/22/21 History potassium chloride 20 mEq 20 meq PO BID 12/22/21 12/22/21 History tablet,extended release(part/cryst) (Klor-Con M) rosuvastatin 20 mg tablet 20 mg PO HS 12/22/21 12/22/21 History Patient History Medical History Anemia HX Arthritis Moeller's esophagus with esophagitis Chronic diarrhea SOMETIMES Depression Diabetes mellitus, type 2 Diverticulitis of sigmoid colon Diverticulosis GERD (gastroesophageal reflux disease) GI bleed RECENT HOSPITALIZED - PT DENIES HX GI BLEED Heel spur B/L feet Hiatal hernia History of colon polyps BENIGN History of fractured vertebra CURRENT, HX FALL JULY 2021 - FELL OF THE TOILET - NO INTERVENTION AT PRESENT/ DR [facility] SEPT[facility] 12 FOR TO DISCUSS TX OPTIONS - POTENTIAL BACK BRACE History of kidney stones Hyperlipidemia Hypertension NO CURRENT MEDS 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) Spleen enlarged MONITORS - PT REPORTS FROM THE REBOLLAR Stucco keratoses Temporomandibular joint disorder 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 Thyroid disease UTI (urinary tract infection) HX, JULY 2021 -HOSPITALIZED FOR , NOW RESOLVED DURING TESTING FOUND 2 LUMPS IN INTESTINES...REASON FOR UPCOMING COLONOSCOPY Surgical History H/O thumb surgery RT/LEFT JOINT REPAIR H/O total hysterectomy History of appendectomy History of arthroscopy of knee Left Knee - meniscus/cartilage History of colonoscopy History of cystoscopy History of esophagogastroduodenoscopy (EGD) History of tonsillectomy and adenoidectomy History of tooth extraction Hx of cholecystectomy Family History Brother Coronary heart disease Heart disease Mother Family history of diabetes mellitus Hypertension Heart disease Sister Family history of diabetes mellitus Son Family history of diabetes mellitus Father Family hx of colon cancer Hearing loss Hypertension Cancer Heart disease Grandfather (Maternal) Family hx of colon cancer Other No family history of adverse response to anesthesia No family history of bleeding disorder Social History Smoking Status: Never smoker Second Hand Exposure: No; Hx Alcohol Use: No Hx Substance Use: No Preferred Language: Nicaraguan Communication Ability: Effective Crab Catcher Required: No Beliefs That Will Affect Care: None marital status: Current Living Situation: Spouse and Family Current Living Situation Comment: and sister current occupational status: employed and retired How many Children do You have: 0 Feels Safe at Home: Yes Assistive Devices: Cane and Walker Review of Systems Constitutional: no fever and no chills Respiratory: no cough and no dyspnea Gastrointestinal: no abdominal pain, no blood in stools and no melena Physical Exam Constitutional: well developed Respiratory: normal respiratory effort Cardiovascular: Rate/Rhythm: regular rate Gastrointestinal (Abdomen): normal bowel sounds, soft, nontender, no hepatosplenomegaly Musculoskeletal: Head/Neck/Chest: normocephalic Psychiatric: Orientation: alert and oriented x 3 Results & Data ([facility]) Vital Signs (Past 12 Hours) Vital Signs Temp Pulse Resp BP Pulse Ox O2 Del Method 12/24/21 07:48 36.6 C 75 18 104/60 94 Room Air PG Care Time/CCT Total # of Minutes Spent Total Time Spent with Patient: Total time spent is greater than 50% in coordination of care (as documented) at patient's floor/unit and/or counseling patient: Coding Level of Care Code 69303 Initial Inpt Care Lvl 3 Diagnoses Hepatic encephalopathy K76.82 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 Portal hypertension K76.6
[2021-12-24 09:42] LABS: Neutrophils # (auto) 0.81 K/uL (1.4-6.5)
[2021-12-24] MEDS: MAGNESIUM SULFATE / D5W 1 GM/100 ML BAG IV SCH ×4 (12:15→18:09)
[2021-12-24] MEDS: PANTOprazole 40 MG TAB PO SCH (13:01)
--- NOTE | 2021-12-24 15:33 | Hospitalist Progress Note ---
Date of Service December 24, 2021 Assessment & Plan (1) Hepatic encephalopathy: Plan: NH3 was elevated on admission. Stool on KUB was normal. Portal vein u/s with possibly partial occlusive left portal vein thrombus, but CT abdomen on 12/23 showed this was not true. - Continue lactulose - Continue Xifaxan - Continue propranolol for reduction in portal vein pressure - At this point, seems back to baseline. NH3 up slightly today, but clinically seems to better. (2) 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: Plan: Has decompensated significantly over the last year. Plans to travel to [place] for transplant work-up on & . - Appreciate GI recs. - Continue home lactulose, rifaximin, and beta-roxann (3) Primary hyperparathyroidism: Plan: Last parathyroid hormone was checked in October and was normal. Her calcium is elevated has been persistently mildly elevated most recently. - Repeat parathyroid hormone this admission was 27.7. (4) Diabetes mellitus, type 2: Plan: A1c was 5.4% this admission. - Hold home meds - Sliding scale insulin -> Blood sugars 100 - 180 in last 24 hours. (5) Hypothyroidism: Plan: TSH was 0.6 last month. - Continue Synthroid 100 & 112 mcg daily Plan DVT ppx: Heparin 5,000 units SQ Q12h Admission and Anticipated Discharge Date Admission Date: December 22, 2021 Subjective Stable today. Feels a bit more unsteady on her feet. Reports no fevers/chills, chest pain, shortness of breath, abdominal pain, nausea, or vomiting. Physical Exam Constitutional: WD/WN, vitals as above Eyes: EOM intact bilaterally; no conjunctival abnormality and sclerae not anicteric ie, icteric sclerae ENMT: external ear and nose normal, oropharynx normal Neck: trachea midline, no thyromegaly normal visual inspection Respiratory: normal respiratory effort, lungs clear to auscultation no respiratory distress Cardiovascular: RRR, no murmur, no edema Gastrointestinal (Abdomen): Inspection/Auscultation: abdomen normal to inspection; abdomen not distended Musculoskeletal: no cyanosis or clubbing, extremities motor strength 5/5 Skin: no rashes, warm and dry Neurologic: moves all extremities and awake Psychiatric: Orientation: alert, oriented to person and cooperative Results & Data Results & Data ([facility]) Vital Signs (Past 12 Hours) Vital Signs Temp Pulse Resp BP Pulse Ox O2 Del Method 12/24/21 14:57 36.5 C 79 18 135/75 95 Room Air 12/24/21 07:48 36.6 C 75 18 104/60 94 Room Air PG Care Time/CCT Total # of Minutes Spent Total Time Spent with Patient: Total time spent is greater than 50% in coordination of care (as documented) at patient's floor/unit and/or counseling patient: Coding Level of Care Code 31398 Subseq Hosp Care Lvl 3 Diagnoses Hepatic encephalopathy K72.90 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 Primary hyperparathyroidism E21.0 Diabetes mellitus, type 2 E11.9 Hypothyroidism E03.9
[2021-12-25] MEDS: LEVOTHYROXINE SODIUM 100 MCG TABLET PO SCH (05:37)
[2021-12-25 08:28] LABS: Hematocrit (blood only) 28.5 % (34.1-44.9); Hemoglobin 9.8 g/dl (12.0-16.0); Mean Platelet Volume 9.3 fL (9.4-12.3); Platelet Count 101 K/uL (130-400); White Blood Count 3.18 K/ul (4.8-10.8)
[2021-12-25] MEDS: HEPARIN SOD 5,000 UNIT/0.5 ML VIAL SQ SCH (08:46)
[2021-12-25 08:49] LABS: INR 1.4 (0.9-1.1); Prothrombin Time 14.5 Seconds (9.0-12.0)
[2021-12-25] MEDS: INSULIN ASPART PER UNIT SC SCH (08:52)
[2021-12-25] MEDS: NYSTATIN POWDER 15GM BTL EXT SCH (09:00)
[2021-12-25 09:05] LABS: Basophils # (auto) 0.02 K/uL (0-0.2); Basophils % (auto) 0.6 %; Echinocytes 1+; Eosinophils # (auto) 0.29 K/uL (0-0.50); Eosinophils % (auto) 9.1 %; Immature Granulocytes # (auto) 0.01 K/uL (0.00-0.02); Immature Granulocytes % (auto) 0.3 %; Lymphocytes # (auto) 1.14 K/uL (1.2-3.4); Lymphocytes % (auto) 35.8 %; Mean Corpuscular Hemoglobin 30.7 pg (25.0-34.0); Mean Corpuscular Hgb Conc 34.4 g/dL (32.0-36.0); Mean Corpuscular Volume 89.3 fL (80.0-100.0); Monocytes # (auto) 0.72 K/uL (0.24-0.82); Monocytes % (auto) 22.6 %; Neutrophils % (auto) 31.6 %; RDW Coefficient of Variation 14.9 % (11.5-14.5); RDW Standard Deviation 48.4 fL (36.4-46.3); Red Blood Count 3.19 M/uL (3.93-5.22)
[2021-12-25 09:28] LABS: Albumin Globulin Ratio 1.6 (0.9-2); BUN Creatinine Ratio 9.5 (10-20); Bilirubin,Total 5.1 mg/dl (0.2-1.0); Calcium 9.9 mg/dl (8.5-10.1); Creatinine Clr Calc Pharmacy 53.3 ml/min; Est GFR (African American) 71.3 ml/min; Est GFR (Non-African American) 61.5 ml/min; Globulin 1.9 gm/dl (2.5-4.0); Magnesium 1.6 mg/dl (1.7-2.4); Potassium 3.6 mmol/L (3.5-5.1); Total Protein 4.9 gm/dl (6.0-8.3)
[2021-12-25] MEDS: MAGNESIUM OXIDE 400 MG TAB PO SCH (11:13)
[2021-12-25] MEDS: PARoxetine HCL 20 MG TAB PO SCH (11:14)
[2021-12-25] MEDS: CEROVITE ADV FORMULA TAB PO SCH (11:14)
[2021-12-25] MEDS: PANTOprazole 40 MG TAB PO SCH (11:14)
[2021-12-25] MEDS: POTASSIUM CHLORIDE CRTAB 20 MEQ TABCR PO SCH (11:15)
[2021-12-25] MEDS: rifAXIMin 550 MG TABLET PO SCH (11:15)
[2021-12-25] MEDS: PROPRANOLOL HCL 20 MG TAB PO SCH (11:15)
[2021-12-25] MEDS: LACTULOSE SYRUP 30 GM/45 ML UDP PO SCH (11:16)
--- NOTE | 2021-12-25 17:44 | Discharge Summary ---
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 intake at home over the last few days and was instructed to have additional doses of lactulose as she is been having decreasing bowel movements at home. Her weakness is caused her to fall at least 1 occasion hitting her head without loss of consciousness. Supposedly being evaluated for work-up of her liver failure and possible transplantation She does have becoming more confused at home she is denies any dysuria urinary frequency she has diarrhea of course. She has no upper respiratory symptoms complaints of sore throat or skin lesions or rashes with exception of some intertrigo Principal Diagnosis Hepatic encephalopathy Discharge Exam Constitutional WD/WN, vitals as above Eyes EOM intact bilaterally; no conjunctival abnormality and sclerae not anicteric ENMT external ear and nose normal, oropharynx normal Neck trachea midline, no thyromegaly normal visual inspection Respiratory normal respiratory effort, lungs clear to auscultation no respiratory distress Cardiovascular RRR, no murmur, no edema Gastrointestinal (Abdomen) Inspection/Auscultation: abdomen normal to inspection; abdomen not distended Musculoskeletal no cyanosis or clubbing, extremities motor strength 5/5 Skin no rashes, warm and dry Neurologic moves all extremities and awake Psychiatric Orientation: alert, oriented to person and cooperative Discharge Data Allergies Allergy/AdvReac Type Severity Reaction Status Date / Time bee venom protein (honey bee) Allergy Severe Anaphylaxis Verified 12/22/21 17:38 Influenza Virus Vaccines Allergy Severe Anaphylaxis Verified 12/22/21 17:38 tetracycline AdvReac Severe Severe Verified 12/22/21 17:38 stomach pains Consultations 12/22/21 16:07 ED Decision to Admit Stat 12/23/21 13:56 Consult Gastroenterology Routine Procedures Performed Operation Date: 12/25/21 17:00 <No data on this case meets the specified criteria> Ordered Studies 12/22/21 14:25 CT head/brain wo con Stat 12/23/21 08:00 US portal veins doppler [US duplex portal hepatic veins] Routine 12/23/21 16:51 CT abdomen w IV con Routine Hospital Course (1) Hepatic encephalopathy: NH3 was elevated on admission. Stool on KUB was normal. Portal vein u/s with possibly partial occlusive left portal vein thrombus, but CT abdomen on 12/23 showed this was not true. - Continue lactulose - Continue Xifaxan - Continue propranolol for reduction in portal vein pressure - At this point, seems back to baseline. NH3 up slightly today, but clinically seems to better. Extensive discussions with family (sister) about how to dose and use lactulose to try to find consistent 3-4 BMs/day. Will try to keep her stable & safe for next 10 days until she goes to [place] for liver evaluation. (2) 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: Has decompensated significantly over the last year. Plans to travel to [place] for transplant work-up on & . - Appreciate GI recs. - Continue home lactulose, rifaximin, and beta-roxann (3) Primary hyperparathyroidism: Last parathyroid hormone was checked in October and was normal. Her calcium is elevated has been persistently mildly elevated most recently. - Repeat parathyroid hormone this admission was 27.7. (4) Diabetes mellitus, type 2: A1c was 5.4% this admission. - Hold home meds - Sliding scale insulin -> Blood sugars 100 - 180 in last 24 hours. (5) Hypothyroidism: TSH was 0.6 last month. - Continue Synthroid 100 & 112 mcg daily Plan DVT ppx: Heparin 5,000 units SQ Q12h Total Time Total Time Spent Total Time Spent (In Minutes): 35 Discharge Plan Discharge Items Patient Disposition: Home - Home Health Services Reason For Visit: HEPATIC ENCEPHALOPATHY Discharge Diagnosis: Hepatic encephalopathy Activity: Resume your previous activity Non-emergency contact: Primary Care Provider Call non-emergency contact if: your symptoms worsen Follow-up/Referrals: Reza Cid MD [Primary Care Provider] - 12/31/21 10:30 am Diet: Low Sodium (2gm) Addtl Attending Provider Instructions: Ms. Kurtz, You were admitted to the hospital with confusion and a fall at home. This was likely due to your liver issues. You are having a very tough time finding the "middle ground" in terms of the lactulose, and I'm really sorry for that. It can be really difficult to find that sweet spot, as we discussed. Today, you are doing really well. You had a few bowel movements overnight, and I'm sorry that we are having trouble getting things more normalized for daytime bowel movements. As we talked about, you should aim for 3 - 4 soft BMs per day. As we discussed, this is much, much easier to say than accomplish. If you have a day where you have more bowel movements, or they are very loose, DO NOT stop the lactulose entirely because that will lead to constipation, ammonia build-up, and confusion. Instead, take a 1/2 dose or maybe skip 1 dose, but DO NOT stop the lactulose entirely. As we said, your BMs today are from yesterday's lactulose, so you will get ammonia build-up and confusion if you stop the lactulose an entire day. If you go > 30 hours (ie one day and then a morning) without a BM, that is when you should use the lactulose enema to help keep things moving. If you go more than one day without a bowel movement, your risk of ammonia build-up and confusion goes up much higher. So, if you are entering day 2 without a BM, you need to work hard to have one that day. Finally, I would work to try to minimize your Ativan usage. Try a 1/2 pill to see if that helps. Ativan's biggest side effects are confusion and balance issues, and your cirrhosis puts you at big risk for this. I know you are having a lot of anxiety (and that is totally, totally understandable), but I would hate to have you have an accident that delays or interrupts your transplant work-up. It has been a pleasure caring for you, and I wish you the best of luck in [place]! Hoang Kurtz MD Pending Studies at Discharge: No Stand-Alone Forms: My [facility], Smoking Cessation Medications and DC Order Prescriptions: New lactulose 20 gram/30 mL Solution 30 g PO TID Qty: 0 0RF Continued levothyroxine 100 mcg tablet 100 mcg PO Q2D Qty: 45 1RF Rx Instructions: 100 mcg PO every other day; alternate with 112 mcg paroxetine HCl 20 mg tablet 20 mg PO QAM valacyclovir 1 gram tablet 1 mg PO UD PRN (Reason: Cold Sores) Label Comments: NOT CURRENTLY USING levothyroxine 112 mcg tablet 112 mcg PO Q2D Rx Instructions: 112 mcg PO every other day, alternate with 100 mcg. Take 1st thing in the morning on an empty stomach 30 min prior to any other oral intake. (VERIFIED PAT CALL 09/09/21) dulaglutide 3 mg/0.5 mL pen injector 3 mg subcut WK Label Comments: SUNDAYS Rx Instructions: Inject 3 mg subcut once weekly Wednesday omeprazole 40 mg Capsule,Delayed Release(Dr/Ec) 40 mg PO DAILY Xifaxan 550 mg Tablet 550 mg PO BID Qty: 60 0RF potassium chloride [Klor-Con M20] 20 mEq tablet,ER particles/crystals 20 meq PO BID lactulose 10 gram/15 mL solution 0 g GA Q8H Rx Instructions: STATES GIVES 30 ML 3-4XS DAY rosuvastatin 20 mg tablet 20 mg PO HS magnesium oxide 400 mg magnesium tablet 400 mg PO DAILY Women's 50 Plus Multivitamin 400 mcg-500 mg calcium-20 mcg Tablet 1 tab PO QAM zolpidem 5 mg tablet 5 mg PO HS PRN (Reason: insomnia) Qty: 0 0RF propranolol 20 mg tablet 20 mg PO TID Changed lorazepam 1 mg tablet 0.5 mg PO TID PRN (Reason: Anxiety) Qty: 1 0RF Discontinued phenazopyridine [Pyridium] 200 mg tablet 200 mg PO UD PRN (Reason: bladder pain) hyoscyamine sulfate 0.125 mg tablet,disintegrating 0.125 mg PO QID tramadol 50 mg tablet 50 mg PO DAILY PRN (Reason: moderate pain) Qty: 15 0RF Discharge Orders: Discharge Order (Routine); Ordered 12/25/21 Ordered By: Hoang Correa/Other Patient Handouts: How the Liver Works, Hepatic Encephalopathy, Managing Type 2 Diabetes Admission Data Admit Date/Time: 12/22/21 16:26 Attending Provider: Hoang Kurtz Admit Provider: Terrance Stuart Primary Care Provider: Reza Cid Other Providers: Terrance Stuart ; [facility] ; Ryan Rouse Other Interventions: Discharge Summary Assessment (RN) Last Done: 12/25/21 11:43 Coding Level of Care Code D/C DAY MANAGEMENT >30 MINS Diagnoses Hepatic encephalopathy K72.90 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 Primary hyperparathyroidism E21.0 Diabetes mellitus, type 2 E11.9 Hypothyroidism E03.9
== END 2021-12-25 12:29 | disposition home health service (06) | DRG 442 ==
LOC: ED 12:47 → SUATTDRO 16:26 → 3W 16:26

== ENCOUNTER 2022-01-22 10:13 | Observation (INO) ==
[2022-01-22] MEDS ORDERED: LACTULOSE SYRUP 30 GM/45 ML UDP PO STA (11:38)
[2022-01-22] MEDS ORDERED: LACTULOSE SYRUP 20 GM/30 ML UDC ONE (11:43)
[2022-01-22 11:54] LABS: Basophils # (auto) 0.01 K/uL (0-0.2); Basophils % (auto) 0.3 %; Eosinophils # (auto) 0.39 K/uL (0-0.50); Eosinophils % (auto) 11.3 %; Hematocrit (blood only) 29.5 % (34.1-44.9); Hemoglobin 9.7 g/dl (12.0-16.0); Immature Granulocytes # (auto) 0.01 K/uL (0.00-0.02); Immature Granulocytes % (auto) 0.3 %; Lymphocytes # (auto) 0.93 K/uL (1.2-3.4); Lymphocytes % (auto) 26.9 %; Mean Corpuscular Hemoglobin 29.2 pg (25.0-34.0); Mean Corpuscular Hgb Conc 32.9 g/dL (32.0-36.0); Mean Corpuscular Volume 88.9 fL (80.0-100.0); Mean Platelet Volume 9.6 fL (9.4-12.3); Monocytes # (auto) 0.67 K/uL (0.24-0.82); Monocytes % (auto) 19.4 %; Neutrophils # (auto) 1.45 K/uL (1.4-6.5); Neutrophils % (auto) 41.8 %; Platelet Count 161 K/uL (130-400); RDW Coefficient of Variation 14.6 % (11.5-14.5); RDW Standard Deviation 47.1 fL (36.4-46.3); Red Blood Count 3.32 M/uL (3.93-5.22); White Blood Count 3.46 K/ul (4.8-10.8)
--- NOTE | 2022-01-22 11:54 | Emergency Department Note ---
Impression & Plan Liver cirrhosis secondary to DAILY, Hypomagnesemia, Hypokalemia ED Provider Note CHIEF COMPLAINT: Abnormal labs HISTORY OF PRESENT ILLNESS: This 66-year-old female patient presents to the emergency department with complaints of abnormal labs. The patient states she is awaiting a liver transplant but was notified by her physician today that her ammonia level is 120. The patient has a history of Daily and end-stage liver disease. She has home health nursing come to check her laboratory work frequently. He denies any confusion but does states she has been weaker than general. She has had no fevers, falls or head injuries. Patient states she did take 40 g of lactulose this morning but has not had a bowel movement. She did have several bowel movements yesterday. She was instructed to come to the emergency department to "get her ammonia down." REVIEW OF SYSTEMS: A review of systems was performed with positives and pertinent negatives listed in the history of present illness. 10 systems were reviewed and are otherwise negative. ALLERGIES: see below MEDICATIONS: see below PMH: see below SOCIAL HISTORY: see below DDx: Infection, dehydration, metabolic abnormality, hypo/hyperglycemia, electrolyte disturbance, anemia, hypoxia, cardiac sources, intracerebral event, toxicologic, neurologic, as well as other pathologies. PHYSICAL EXAM: Vital signs reviewed. General: Chronically ill-appearing 66 yo female, in no significant distress. HEENT: No scleral icterus, PERRLA, neck supple. Atraumatic. Cardiovascular: Regular rate and rhythm, no extra sounds. Pulmonary: Clear to auscultation bilaterally, normal work of breathing. Abdomen: Soft, diffusely mildly tender, nondistended, positive bowel sounds. Musculoskeletal: Atraumatic, no peripheral edema. Neurologic: Patient awake alert and oriented x 3 Skin: Warm, dry, no rash EMERGENCY DEPARTMENT COURSE/MDM: This patient was evaluated and appeared to be in no significant distress. Patient was given 40 g of p.o. lactulose for an ammonia level of 81. Patient's UA is indicative of infection and she was med icated with IV ceftriaxone. Patient was also noted to be hypomagnesemic and hypokalemic. His electrolytes were repleted intravenously. Patient's case was discussed with the hospitalist for further evaluation and management. Patient was advised of the plan and agreed. MONITORING: An order for cardiac monitoring was placed and the patient is noted to be in a normal sinus rhythm at 76 beats per minute. DISPOSITION: Admission Past Med/Surg History Medical History Anemia HX Arthritis Moeller's esophagus with esophagitis Chronic diarrhea SOMETIMES Depression Diabetes mellitus, type 2 Diverticulitis of sigmoid colon Diverticulosis GERD (gastroesophageal reflux disease) GI bleed RECENT HOSPITALIZED - PT DENIES HX GI BLEED Heel spur B/L feet Hiatal hernia History of colon polyps BENIGN History of fractured vertebra CURRENT, HX FALL JULY 2021 - FELL OF THE TOILET - NO INTERVENTION AT PRESENT/ DR AMY [facility] FOR TO DISCUSS TX OPTIONS - POTENTIAL BACK BRACE History of kidney stones Hyperlipidemia Hypertension NO CURRENT MEDS Liver cirrhosis secondary to DAILY DAILY (nonalcoholic steatohepatitis) Spleen enlarged MONITORS - PT REPORTS FROM THE DAILY Stucco keratoses Temporomandibular joint disorder 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 Thyroid disease UTI (urinary tract infection) HX, JULY 2021 -HOSPITALIZED FOR , NOW RESOLVED DURING TESTING FOUND 2 LUMPS IN INTESTINES...REASON FOR UPCOMING COLONOSCOPY Surgical History H/O thumb surgery RT/LEFT JOINT REPAIR H/O total hysterectomy History of appendectomy History of arthroscopy of knee Left Knee - meniscus/cartilage History of colonoscopy History of cystoscopy History of esophagogastroduodenoscopy (EGD) History of tonsillectomy and adenoidectomy History of tooth extraction Hx of cholecystectomy Family History Brother Coronary heart disease Heart disease Mother Family history of diabetes mellitus Hypertension Heart disease Sister Family history of diabetes mellitus Son Family history of diabetes mellitus Father Family hx of colon cancer Hearing loss Hypertension Cancer Heart disease Grandfather (Maternal) Family hx of colon cancer Other No family history of adverse response to anesthesia No family history of bleeding disorder Social History Smoking Status: Never smoker Second Hand Exposure: No; Hx Alcohol Use: No Hx Substance Use: No Preferred Language: Kazakh Communication Ability: Effective Content Designer Required: No Beliefs That Will Affect Care: None marital status: Current Living Situation: Spouse and Family Current Living Situation Comment: and sister current occupational status: employed and retired How many Children do You have: 0 Feels Safe at Home: Yes Assistive Devices: Cane and Walker Allergies Allergies Allergy/AdvReac Type Severity Reaction Status Date / Time bee venom protein (honey bee) Allergy Severe Anaphylaxis Verified 12/22/21 17:38 Influenza Virus Vaccines Allergy Severe Anaphylaxis Verified 12/22/21 17:38 tetracycline AdvReac Severe Severe Verified 12/22/21 17:38 stomach pains Home Meds Home Medications Medication Instructions Recorded Confirmed paroxetine HCl 20 mg tablet 40 mg PO QAM 04/17/19 01/22/22 valacyclovir 1 gram tablet 1 mg PO UD PRN Cold Sores 04/16/21 01/22/22 [id number] ac 400 1 tab PO QAM 07/15/21 01/22/22 mcg-calcium carb 500 mg-vit K1 20 mcg tablet (Women's 50 Plus Multivitamin) dulaglutide 3 mg/0.5 mL 3 mg subcut WK 09/09/21 01/22/22 subcutaneous pen injector levothyroxine 112 mcg tablet 112 mcg PO Q2D 09/09/21 01/22/22 omeprazole 40 mg capsule,delayed 40 mg PO DAILY 11/04/21 01/22/22 release potassium chloride 20 mEq 20 meq PO BID 12/22/21 01/22/22 tablet,extended release(part/cryst) (Klor-Con M) rosuvastatin 20 mg tablet 20 mg PO HS 12/22/21 01/22/22 chlorthalidone 25 mg tablet 25 mg PO DAILY 01/22/22 01/22/22 lactulose 20 gram/30 mL oral 30 g PO BID 01/22/22 01/22/22 solution lorazepam 1 mg tablet 1 mg PO TID PRN Anxiety 01/22/22 01/22/22 magnesium oxide 500 mg tablet 500 mg PO DAILY 01/22/22 01/22/22 nystatin 100,000 unit/gram topical 1 applic topical TID 01/22/22 01/22/22 powder potassium bicarbonate-citric acid 25 meq PO TID 01/22/22 01/22/22 25 mEq effervescent tablet (Klor-Con/EF) propranolol 80 mg capsule,24 80 mg PO DAILY 01/22/22 01/22/22 hr,extended release rifaximin 550 mg tablet (Xifaxan) 550 mg PO BID 01/22/22 01/22/22 zolpidem 5 mg tablet 5 mg PO HS 01/22/22 01/22/22 Previous Rx's Medication Instructions Recorded levothyroxine 100 mcg tablet 100 mcg PO Q2D #45 tabs 10/27/21 Results & Data (ED) Vital Signs Vital Signs - 24 hr 01/22/22 10:19 01/22/22 11:00 01/22/22 12:00 Temperature 36.6 C Temperature Source Oral Pulse Rate 76 79 77 Pulse Rate from SpO2 Sensor 80 77 Respiratory Rate 18 17 16 Respiratory Effort / Characteristics Non-Labored Spontaneous Respiratory Depth Normal Respiratory Pattern Regular Blood Pressure 115/60 126/58 L 131/67 Blood Pressure Mean 78 80 88 Blood Pressure Position Sitting Pulse Oximetry 97 97 97 Oxygen Delivery Method Room Air Sepsis Recent Fever Within 48 Hours No Sepsis New/Unexplained Change in Mental Status N/A Sepsis Action Taken by Nursing No Action Required 01/22/22 12:30 01/22/22 12:30 01/22/22 13:00 Temperature Temperature Source Pulse Rate 80 Pulse Rate from SpO2 Sensor Respiratory Rate 18 Respiratory Effort / Characteristics Respiratory Depth Respiratory Pattern Blood Pressure 137/57 L 134/72 Blood Pressure Mean 83 92 Blood Pressure Position Pulse Oximetry Oxygen Delivery Method Sepsis Recent Fever Within 48 Hours Sepsis New/Unexplained Change in Mental Status Sepsis Action Taken by Nursing 01/22/22 13:00 01/22/22 13:30 01/22/22 13:30 Temperature Temperature Source Pulse Rate 79 79 Pulse Rate from SpO2 Sensor Respiratory Rate 12 13 Respiratory Effort / Characteristics Respiratory Depth Respiratory Pattern Blood Pressure 141/69 H Blood Pressure Mean 93 Blood Pressure Position Pulse Oximetry Oxygen Delivery Method Sepsis Recent Fever Within 48 Hours Sepsis New/Unexplained Change in Mental Status Sepsis Action Taken by Nursing 01/22/22 14:00 01/22/22 14:00 01/22/22 14:30 Temperature Temperature Source Pulse Rate 77 Pulse Rate from SpO2 Sensor Respiratory Rate 12 Respiratory Effort / Characteristics Respiratory Depth Respiratory Pattern Blood Pressure 149/64 H 136/67 Blood Pressure Mean 92 90 Blood Pressure Position Pulse Oximetry Oxygen Delivery Method Sepsis Recent Fever Within 48 Hours Sepsis New/Unexplained Change in Mental Status Sepsis Action Taken by Nursing 01/22/22 14:30 Temperature Temperature Source Pulse Rate 76 Pulse Rate from SpO2 Sensor Respiratory Rate 14 Respiratory Effort / Characteristics Respiratory Depth Respiratory Pattern Blood Pressure Blood Pressure Mean Blood Pressure Position Pulse Oximetry Oxygen Delivery Method Sepsis Recent Fever Within 48 Hours Sepsis New/Unexplained Change in Mental Status Sepsis Action Taken by [facility] Medications Current Medication List: was personally reviewed by me Laboratory Data Attestation: I reviewed the patient's lab results. Result diagrams: 01/22/22 10:25 01/22/22 10:25 Lab Results 01/22/22 01/22/22 01/22/22 Range/Units 10:25 10:25 10:25 WBC 3.46 L (4.8-10.8) K/ul RBC 3.32 L (3.93-5.22) M/uL Hgb 9.7 L (12.0-16.0) g/dl Hct 29.5 L (34.1-44.9) % MCV 88.9 (80.0-100.0) fL MCH 29.2 (25.0-34.0) pg MCHC 32.9 (32.0-36.0) g/dL RDW Std Deviation 47.1 H (36.4-46.3) fL RDW Coeff of Charlee 14.6 H (11.5-14.5) % Plt Count 161 (130-400) K/uL MPV 9.6 (9.4-12.3) fL Immature Gran % (Auto) 0.3 % Neut % (Auto) 41.8 % Lymph % (Auto) 26.9 % [place] % (Auto) 19.4 % Eos % (Auto) 11.3 % Baso % (Auto) 0.3 % Neut # (Auto) 1.45 (1.4-6.5) K/uL Lymph # (Auto) 0.93 L (1.2-3.4) K/uL [place] # (Auto) 0.67 (0.24-0.82) K/uL Eos # (Auto) 0.39 (0-0.50) K/uL Baso # (Auto) 0.01 (0-0.2) K/uL Immature Gran # (Auto) 0.01 (0.00-0.02) K/uL PT 12.9 H (9.0-12.0) Seconds INR 1.2 H (0.9-1.1) Sodium 140 (136-145) mmol/L Potassium 3.1 L (3.5-5.1) mmol/L Chloride 105 (98-107) mmol/L Carbon Dioxide 29 (21-32) mmol/L Anion Gap 6 (3-11) BUN 12 (6-23) mg/dl Creatinine 1.03 (0.6-1.2) mg/dl Est Cr Clr Drug Dosing 48.3 ml/min Est GFR ( Amer) 64.7 ml/min Est GFR (Non-Af Amer) 55.8 ml/min BUN/Creatinine Ratio 11.7 (10-20) Glucose 136 H (70-99(Fasting)) mg/dl Calcium 11.2 H (8.5-10.1) mg/dl Magnesium 1.5 L (1.7-2.4) mg/dl Total Bilirubin 3.8 H (0.2-1.0) mg/dl AST 56 H (13-39) U/L ALT 30 (7-52) U/L Alkaline Phosphatase 198 H (34-104) U/L Ammonia (18-72) umol/L Total Protein 5.7 L (6.0-8.3) gm/dl Albumin 3.5 (3.4-5.0) gm/dl Globulin 2.2 L (2.5-4.0) gm/dl Albumin/Globulin Ratio 1.6 (0.9-2) TSH (0.300-4.500) uIu/ml Urine Color Urine Appearance (Clear) Urine pH (4.5-7.5) Ur Specific Emma (1.000-1.030) Urine Protein (Negative) Urine Glucose (UA) (Negative) Urine Ketones (Negative) Urine Blood (Negative) Urine Nitrite (Negative) Urine Bilirubin (Negative) Urine Urobilinogen (Negative) Ur Leukocyte Esterase (Negative) Urine WBC (Auto) (0-5) /hpf Urine RBC (Auto) (0-4) /hpf U Hyaline Cast (Auto) (0-5) /lpf U Epithel Cells (Auto) (0-5) /lpf Urine Bacteria (Auto) (Negative) SARS-CoV-2, RNA, NAAT (NEGATIVE) 01/22/22 01/22/22 01/22/22 Range/Units 10:25 11:49 11:49 WBC (4.8-10.8) K/ul RBC (3.93-5.22) M/uL Hgb (12.0-16.0) g/dl Hct (34.1-44.9) % MCV (80.0-100.0) fL MCH (25.0-34.0) pg MCHC (32.0-36.0) g/dL RDW Std Deviation (36.4-46.3) fL RDW Coeff of Charlee (11.5-14.5) % Plt Count (130-400) K/uL MPV (9.4-12.3) fL Immature Gran % (Auto) % Neut % (Auto) % Lymph % (Auto) % [place] % (Auto) % Eos % (Auto) % Baso % (Auto) % Neut # (Auto) (1.4-6.5) K/uL Lymph # (Auto) (1.2-3.4) K/uL [place] # (Auto) (0.24-0.82) K/uL Eos # (Auto) (0-0.50) K/uL Baso # (Auto) (0-0.2) K/uL Immature Gran # (Auto) (0.00-0.02) K/uL PT (9.0-12.0) Seconds INR (0.9-1.1) Sodium (136-145) mmol/L Potassium (3.5-5.1) mmol/L Chloride (98-107) mmol/L Carbon Dioxide (21-32) mmol/L Anion Gap (3-11) BUN (6-23) mg/dl Creatinine (0.6-1.2) mg/dl Est Cr Clr Drug Dosing ml/min Est GFR ( Amer) ml/min Est GFR (Non-Af Amer) ml/min BUN/Creatinine Ratio (10-20) Glucose (70-99(Fasting)) mg/dl Calcium (8.5-10.1) mg/dl Magnesium (1.7-2.4) mg/dl Total Bilirubin (0.2-1.0) mg/dl AST (13-39) U/L ALT (7-52) U/L Alkaline Phosphatase (34-104) U/L Ammonia 81.0 H (18-72) umol/L Total Protein (6.0-8.3) gm/dl Albumin (3.4-5.0) gm/dl Globulin (2.5-4.0) gm/dl Albumin/Globulin Ratio (0.9-2) TSH 1.225 (0.300-4.500) uIu/ml Urine Color Urine Appearance (Clear) Urine pH (4.5-7.5) Ur Specific Emma (1.000-1.030) Urine Protein (Negative) Urine Glucose (UA) (Negative) Urine Ketones (Negative) Urine Blood (Negative) Urine Nitrite (Negative) Urine Bilirubin (Negative) Urine Urobilinogen (Negative) Ur Leukocyte Esterase (Negative) Urine WBC (Auto) (0-5) /hpf Urine RBC (Auto) (0-4) /hpf U Hyaline Cast (Auto) (0-5) /lpf U Epithel Cells (Auto) (0-5) /lpf Urine Bacteria (Auto) (Negative) SARS-CoV-2, RNA, NAAT NEGATIVE (NEGATIVE) 01/22/22 Range/Units 12:02 WBC (4.8-10.8) K/ul RBC (3.93-5.22) M/uL Hgb (12.0-16.0) g/dl Hct (34.1-44.9) % MCV (80.0-100.0) fL MCH (25.0-34.0) pg MCHC (32.0-36.0) g/dL RDW Std Deviation (36.4-46.3) fL RDW Coeff of Charlee (11.5-14.5) % Plt Count (130-400) K/uL MPV (9.4-12.3) fL Immature Gran % (Auto) % Neut % (Auto) % Lymph % (Auto) % [place] % (Auto) % Eos % (Auto) % Baso % (Auto) % Neut # (Auto) (1.4-6.5) K/uL Lymph # (Auto) (1.2-3.4) K/uL [place] # (Auto) (0.24-0.82) K/uL Eos # (Auto) (0-0.50) K/uL Baso # (Auto) (0-0.2) K/uL Immature Gran # (Auto) (0.00-0.02) K/uL PT (9.0-12.0) Seconds INR (0.9-1.1) Sodium (136-145) mmol/L Potassium (3.5-5.1) mmol/L Chloride (98-107) mmol/L Carbon Dioxide (21-32) mmol/L Anion Gap (3-11) BUN (6-23) mg/dl Creatinine (0.6-1.2) mg/dl Est Cr Clr Drug Dosing ml/min Est GFR ( Amer) ml/min Est GFR (Non-Af Amer) ml/min BUN/Creatinine Ratio (10-20) Glucose (70-99(Fasting)) mg/dl Calcium (8.5-10.1) mg/dl Magnesium (1.7-2.4) mg/dl Total Bilirubin (0.2-1.0) mg/dl AST (13-39) U/L ALT (7-52) U/L Alkaline Phosphatase (34-104) U/L Ammonia (18-72) umol/L Total Protein (6.0-8.3) gm/dl Albumin (3.4-5.0) gm/dl Globulin (2.5-4.0) gm/dl Albumin/Globulin Ratio (0.9-2) TSH (0.300-4.500) uIu/ml Urine Color Dark Yellow Urine Appearance Clear (Clear) Urine pH 6.0 (4.5-7.5) Ur Specific Emma 1.021 (1.000-1.030) Urine Protein Negative (Negative) Urine Glucose (UA) Negative (Negative) Urine Ketones Trace H (Negative) Urine Blood Negative (Negative) Urine Nitrite Positive A (Negative) Urine Bilirubin Negative (Negative) Urine Urobilinogen Negative (Negative) Ur Leukocyte Esterase 1+ H (Negative) Urine WBC (Auto) 10-30 H (0-5) /hpf Urine RBC (Auto) 0-4 (0-4) /hpf U Hyaline Cast (Auto) 1-5 (0-5) /lpf U Epithel Cells (Auto) 0-5 (0-5) /lpf Urine Bacteria (Auto) 4+ H (Negative) SARS-CoV-2, RNA, NAAT (NEGATIVE) Administered Medications Discontinued Medications Hyoscyamine (Hyoscyamine Sulfate 0.125 Mg Tab) 0.125 mg PO NOW STA Stop: 01/22/22 12:20 Last Admin: 01/22/22 12:36 Dose: 0.125 mg Documented By: MADAY Magnesium Sulfate/Dextrose (Magnesium Sulfate / D5w) 1 gm in 100 mls @ 100 mls/hr IV Q1H PRIMITIVO Stop: 01/22/22 14:20 Last Infusion: 01/22/22 14:17 Dose: 0 mls/hr Documented By: Admin: 01/22/22 14:16 Dose: 100 mls/hr Documented By: Infusion: 01/22/22 13:41 Dose: 100 mls/hr Documented By: Admin: 01/22/22 12:41 Dose: 100 mls/hr Documented By: MADAY Potassium Chloride (K Terry / Wtr) 10 meq in 100 mls @ 100 mls/hr IV Q1H PRIMITIVO; Protocol Stop: 01/22/22 14:29 Last Infusion: 01/22/22 14:17 Dose: 0 mls/hr Documented By: Admin: 01/22/22 14:16 Dose: 100 mls/hr Documented By: Infusion: 01/22/22 13:41 Dose: 100 mls/hr Documented By: Admin: 01/22/22 12:41 Dose: 100 mls/hr Documented By: MADAY Ceftriaxone Sodium (Rocephin) 1,000 mg in 50 mls @ 100 mls/hr IV NOW STA Stop: 01/22/22 14:45 Last Admin: 01/22/22 15:50 Dose: 100 mls/hr Documented By: HUDSON Lactulose (Lactulose Syrup 30 Gm/45 Ml Udp) 60 gm PO NOW STA Stop: 01/22/22 11:39 Last Admin: 01/22/22 12:07 Dose: 60 gm Documented By: MADAY Lactulose (Lactulose Syrup 20 Gm/30 Ml Udc) Confirm Administered Dose 60 gm .ROUTE .STK-MED ONE Stop: 01/22/22 11:44 Last Admin: 01/22/22 12:03 Dose: Not Given Documented By: MADAY Potassium Chloride (Potassium Chloride Crtab 20 Meq Tabcr) 40 meq PO NOW STA Stop: 01/22/22 15:07 Last Admin: 01/22/22 16:15 Dose: 40 meq Documented By: HUDSON Imaging Data Radiologist's Impression: Chest X-Ray 01/22/22 11:37 XR chest 1V portable HISTORY: weakness COMPARISON: Chest 11/25/2021. FINDINGS: The lungs are clear. Cardiac silhouette is normal in size. No pleural effusions. No pneumothorax. Low lung volumes. Prior cholecystectomy. IMPRESSION: No acute process. ACT 112: Negative or not required by law. Electronically signed by: Ivan Veronica M.D. 01/22/2022 1:05 PM KUB X-Ray 01/22/22 11:38 KUB HISTORY: liver failure no BM with lactulose COMPARISON: KUB 12/22/2021. FINDINGS: The bowel gas pattern is unremarkable. There are no dilated loops of small bowel to suggest an obstruction. No renal calculi. No ureteral calculi. Calcifications in the deep pelvis likely represent phleboliths. No pneumoperitoneum or pneumatosis. Surgical clips again noted within the right upper quadrant. Small amount of well-formed stool seen throughout the colon. IMPRESSION: No change compared to the prior study. No evidence for bowel obstruction. ACT 112: Negative or not required by law. Electronically signed by: vIan Veronica M.D. 01/22/2022 1:07 PM Blood Pressure Blood Pressure Findings: Normal blood pressure Blood Pressure Disposition: did not require urgent referral Discharge Plan Visit Data Chief Complaint: Abnormal Labs/Diagnostic Testing Stated Complaint: DIZZY, LIGHTHEADED, TIRED, ABNORMAL LAB ED Provider: Melanie Rodarte Discharge Problem: Liver cirrhosis secondary to DAILY, Hypomagnesemia, Hypokalemia Discharge Instructions Interventions: ED Discharge Assessment Last Done: 01/22/22 16:20
[2022-01-22 12:05] LABS: INR 1.2 (0.9-1.1); Prothrombin Time 12.9 Seconds (9.0-12.0)
[2022-01-22 12:09] LABS: Albumin Globulin Ratio 1.6 (0.9-2); Albumin Level 3.5 gm/dl (3.4-5.0); BUN Creatinine Ratio 11.7 (10-20); Bilirubin,Total 3.8 mg/dl (0.2-1.0); Calcium 11.2 mg/dl (8.5-10.1); Creatinine Clr Calc Pharmacy 48.3 ml/min; Est GFR (African American) 64.7 ml/min; Est GFR (Non-African American) 55.8 ml/min; Globulin 2.2 gm/dl (2.5-4.0); Magnesium 1.5 mg/dl (1.7-2.4); Potassium 3.1 mmol/L (3.5-5.1); Total Protein 5.7 gm/dl (6.0-8.3)
[2022-01-22] MEDS ORDERED: HYOSCYAMINE SULFATE 0.125 MG TAB PO STA (12:19)
[2022-01-22 12:23] LABS: Appearance Urine Clear (Clear); Bacteria Urine Automated 4+ (Negative); Bilirubin Urine Negative (Negative); Blood Urine Negative (Negative); Color Urine Dark Yellow; Epithelial Cell Urine Auto 0-5 /lpf (0-5); Glucose Urine UA Negative (Negative); Ketones Urine Trace (Negative); Leukocyte Esterase Urine 1+ (Negative); Nitrite Urine Positive (Negative); Protein Urine Negative (Negative); RBC Urine Automated 0-4 /hpf (0-4); Specific Gravity Urine 1.021 (1.000-1.030); Urobilinogen Urine Negative (Negative)
[2022-01-22] MEDS: MAGNESIUM SULFATE / D5W 1 GM/100 ML BAG IV SCH ×2 (12:41→14:16)
[2022-01-22] MEDS: POTASSIUM CHLORIDE / WTR 10 MEQ/100 ML PLCT IV SCH ×2 (12:41→14:16)
--- NOTE | 2022-01-22 13:06 | XRay Report ---
XR chest 1V portable HISTORY: weakness COMPARISON: Chest 11/25/2021. FINDINGS: The lungs are clear. Cardiac silhouette is normal in size. No pleural effusions. No pneumot horax. Low lung volumes. Prior cholecystectomy. IMPRESSION: No acute process. ACT 112: Negative or not required by law. Electronically signed by: Ivan Veronica M.D. 01/22/2022 1:05 PM
--- NOTE | 2022-01-22 13:08 | XRay Report ---
KUB HISTORY: liver failure no BM with lactulose COMPARISON: KUB 12/22/2021. FINDINGS: The bowel gas pattern is unremarkable. There are no dilated loops of small bowel to suggest an obstruction. No renal calculi. No ureteral calculi. Calcifications in the deep pelvis likely rep resent phleboliths. No pneumoperitoneum or pneumatosis. Surgical clips again noted within the right u pper quadrant. Small amount of well-formed stool seen throughout the colon. IMPRESSION: No change compared to the prior study. No evidence for bowel obstruction. ACT 112: Negative or not required by law. Electronically signed by: Ivan Veronica M.D. 01/22/2022 1:07 PM
[2022-01-22] MEDS ORDERED: cefTRIAXone SODIUM 1,000 MG/50 ML BAG IV STA (14:16)
--- NOTE | 2022-01-22 14:31 | History & Physical Report ---
Date of Service January 22, 2022 Assessment & Plan (1) Hyperammonemia: Plan: - Ammonia 120 on outpt labs yesterday, 81 today. - Complains of weakness, decreased BMs today.- - Secondary to liver cirrhosis, portal hypertension. - KUB: No evidence of SBO, no acute changes. Continues to have pelvic calcifications. - CXR: No acute process - UA appears infected, will treat with Rocephin daily. Awaiting urine culture. - Continue Xifaxan, lactulose 30 g 3 times daily titrate to at least 34 bowel movements daily. - Avoid NSAIDs, avoid alcohol. - May use Tylenol with 2 g daily limit. (2) Liver cirrhosis secondary to DAILY: Plan: - Child Quiles class B MELD 14, 6% 3-month mortality - Awaiting transplantation. (3) Portal hypertension: Plan: - EGD 05/2020: Grade 1 esophageal varices. - Continue propranolol 20 mg 3 times daily - PPI 40 mg daily, convert to Protonix while inpatient. - Was pending for EGD as outpatient with hematology follow-up last month for concern of potential partial portal vein thrombus not appreciated on subsequent reimaging. (4) Pancytopenia: (5) Hypomagnesemia: Plan: - Continue magnesium supplementation. - 1 dose IV given. - Slow-Mag deferred 2/2 calcium content. (6) Hypothyroidism: Plan: --TSH normal on admission Continue Synthroid daily alternating between 112 and 110 mcg (7) Moeller's esophagus with esophagitis: Plan: - Continue PPI. (8) Diabetes mellitus, type 2: Plan: - A1c well controlled at last check - Hold home oral antiglycemics. - Accu-Cheks with SSI goal [id number] (9) Anxiety and depression: Plan: - Continue paroxetine. No significant hyponatremia. (10) Primary hyperparathyroidism: Plan: - Last parathyroid hormone 27.7 wnl 12/2021. - PTH-RP 9 (L) 11/06/21. - Vitamin D 03/2021 <8 in the setting of cirrhosis. - Calcium 11.2 on admission. (11) Hypokalemia: Plan: - 3.1 K on admit with associated hypomagnesemia. - Repletion ordered, trend daily. Plan - Admit to medicine. - SCDs, low-dose heparin for VTE PPx. - DNR/DNI. History of Present Illness Chief Complaint: Elevated ammonia on outpatient labs Primary Care Provider: Reza Cid MD Aurelia Kurtz is a 66-year-old female with past medical history significant for end-stage liver disease, Moeller's esophagus, DM2, hypothyroidism, anxiety, and depression who presents afebrile of her PCP due to an elevated ammonia. Patient is end-stage liver cirrhosis secondary to Daily and is awaiting liver transplanta tion. She follows with liver transplant team with [facility]. Home health nurses come to her home regularly to check labs, today she was alerted to come to the ED today when her ammonia was found to be 120. Patient herself is without any complaints, she has been perhaps more weak than usual and has burning in her groin region which she attributed to her frequent bowel movements, but without any confusion, no recent falls, fever/chills, or other pain. She notes compliance with her lactulose, had several bowel movements yesterday, approximately 612/day over the past week, but today has not yet had one. On presentation to the ED, her vital signs are within normal limits and stable. Her ammonia level in our ED is 81, was 120 on labs from yesterday. Other labs are at baseline for her, she has chronic pancytopenia, INR 1.2, platelets 161, potassium and magnesium both mildly low at 3.1 and 1.5 respectively. Calcium elevated to 11.2, T bili 3.8, AST 56, alk phos 198, which is baseline. Her urine appears infected with 4+ bacteria, 1030 WBCs, 1+ leuk esterase, positive for nitrates, no epithelial cells present. KUB and CXR unremarkable for acute process, no bowel obstruction or fecal r etention noted. Allergies Allergy/AdvReac Type Severity Reaction Status Date / Time bee venom protein (honey bee) Allergy Severe Anaphylaxis Verified 12/22/21 17:38 Influenza Virus Vaccines Allergy Severe Anaphylaxis Verified 12/22/21 17:38 tetracycline AdvReac Severe Severe Verified 12/22/21 17:38 stomach pains Home Medications Medication Instructions Recorded Confirmed Type paroxetine HCl 20 mg tablet 40 mg PO QAM 04/17/19 01/22/22 History valacyclovir 1 gram tablet 1 mg PO UD PRN Cold Sores 04/16/21 01/22/22 History tjiteqxz-gxs-[id number] ac 400 1 tab PO QAM 07/15/21 01/22/22 History mcg-calcium carb 500 mg-vit K1 20 mcg tablet (Women's 50 Plus Multivitamin) dulaglutide 3 mg/0.5 mL 3 mg subcut WK 09/09/21 01/22/22 History subcutaneous pen injector levothyroxine 112 mcg tablet 112 mcg PO Q2D 09/09/21 01/22/22 History levothyroxine 100 mcg tablet 100 mcg PO Q2D #45 tabs 10/27/21 01/22/22 Rx omeprazole 40 mg capsule,delayed 40 mg PO DAILY 11/04/21 01/22/22 History release potassium chloride 20 mEq 20 meq PO BID 12/22/21 01/22/22 History tablet,extended release(part/cryst) (Klor-Con M) rosuvastatin 20 mg tablet 20 mg PO HS 12/22/21 01/22/22 History chlorthalidone 25 mg tablet 25 mg PO DAILY 01/22/22 01/22/22 History lactulose 20 gram/30 mL oral 30 g PO BID 01/22/22 01/22/22 History solution lorazepam 1 mg tablet 1 mg PO TID PRN Anxiety 01/22/22 01/22/22 History magnesium oxide 500 mg tablet 500 mg PO DAILY 01/22/22 01/22/22 History nystatin 100,000 unit/gram topical 1 applic topical TID 01/22/22 01/22/22 History powder potassium bicarbonate-citric acid 25 meq PO TID 01/22/22 01/22/22 History 25 mEq effervescent tablet (Klor-Con/EF) propranolol 80 mg capsule,24 80 mg PO DAILY 01/22/22 01/22/22 History hr,extended release rifaximin 550 mg tablet (Xifaxan) 550 mg PO BID 01/22/22 01/22/22 History zolpidem 5 mg tablet 5 mg PO HS 01/22/22 01/22/22 History Past Med/Surg History Medical History Anemia HX Arthritis Moeller's esophagus with esophagitis Chronic diarrhea SOMETIMES Depression Diabetes mellitus, type 2 Diverticulitis of sigmoid colon Diverticulosis GERD (gastroesophageal reflux disease) GI bleed RECENT HOSPITALIZED - PT DENIES HX GI BLEED Heel spur B/L feet Hiatal hernia History of colon polyps BENIGN History of fractured vertebra CURRENT, HX FALL JULY 2021 - FELL OF THE TOILET - NO INTERVENTION AT PRESENT/ [facility] TO DISCUSS TX OPTIONS - POTENTIAL BACK BRACE History of kidney stones Hyperlipidemia Hypertension NO CURRENT MEDS Liver cirrhosis secondary to DAILY DAILY (nonalcoholic steatohepatitis) Spleen enlarged MONITORS - PT REPORTS FROM THE DAILY Stucco keratoses Temporomandibular joint disorder 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 Thyroid disease UTI (urinary tract infection) HX, JULY 2021 -HOSPITALIZED FOR , NOW RESOLVED DURING TESTING FOUND 2 LUMPS IN INTESTINES...REASON FOR UPCOMING COLONOSCOPY Surgical History H/O thumb surgery RT/LEFT JOINT REPAIR H/O total hysterectomy History of appendectomy History of arthroscopy of knee Left Knee - meniscus/cartilage History of colonoscopy History of cystoscopy History of esophagogastroduodenoscopy (EGD) History of tonsillectomy and adenoidectomy History of tooth extraction Hx of cholecystectomy Family History Brother Coronary heart disease Heart disease Mother Family history of diabetes mellitus Hypertension Heart disease Sister Family history of diabetes mellitus Son Family history of diabetes mellitus Father Family hx of colon cancer Hearing loss Hypertension Cancer Heart disease Grandfather (Maternal) Family hx of colon cancer Other No family history of adverse response to anesthesia No family history of bleeding disorder Social History Smoking Status: Never smoker Second Hand Exposure: No; Hx Alcohol Use: No Hx Substance Use: No Preferred Language: [place] Communication Ability: Effective Top Taper Machine Required: No Beliefs That Will Affect Care: None marital status: Current Living Situation: Spouse and Family Current Living Situation Comment: and sister current occupational status: employed and retired How many Children do You have: 0 Feels Safe at Home: Yes Assistive Devices: Cane and Walker Results & Data Results & Data ([facility]) Vital Signs (Past 12 Hours) Vital Signs Temp Pulse Resp BP Pulse Ox O2 Del Method 01/22/22 14:00 77 12 01/22/22 14:00 149/64 H 01/22/22 13:30 79 13 01/22/22 13:30 141/69 H 01/22/22 13:00 79 12 01/22/22 13:00 134/72 01/22/22 12:30 80 18 01/22/22 12:30 137/57 L 01/22/22 12:00 77 16 131/67 97 01/22/22 11:00 79 17 126/58 L 97 01/22/22 10:19 36.6 C 76 18 115/60 97 Room Air Laboratory Results Abnormal lab results 01/22/22 01/22/22 01/22/22 Range/Units 10:25 10:25 10:25 WBC 3.46 L (4.8-10.8) K/ul RBC 3.32 L (3.93-5.22) M/uL Hgb 9.7 L (12.0-16.0) g/dl Hct 29.5 L (34.1-44.9) % RDW Std Deviation 47.1 H (36.4-46.3) fL RDW Coeff of Charlee 14.6 H (11.5-14.5) % Lymph # (Auto) 0.93 L (1.2-3.4) K/uL PT 12.9 H (9.0-12.0) Seconds INR 1.2 H (0.9-1.1) Potassium 3.1 L (3.5-5.1) mmol/L Glucose 136 H (70-99(Fasting)) mg/dl Calcium 11.2 H (8.5-10.1) mg/dl Magnesium 1.5 L (1.7-2.4) mg/dl Total Bilirubin 3.8 H (0.2-1.0) mg/dl AST 56 H (13-39) U/L Alkaline Phosphatase 198 H (34-104) U/L Ammonia (18-72) umol/L Total Protein 5.7 L (6.0-8.3) gm/dl Globulin 2.2 L (2.5-4.0) gm/dl Urine Ketones (Negative) Urine Nitrite (Negative) Ur Leukocyte Esterase (Negative) Urine WBC (Auto) (0-5) /hpf Urine Bacteria (Auto) (Negative) 01/22/22 01/22/22 Range/Units 11:49 12:02 WBC (4.8-10.8) K/ul RBC (3.93-5.22) M/uL Hgb (12.0-16.0) g/dl Hct (34.1-44.9) % RDW Std Deviation (36.4-46.3) fL RDW Coeff of Charlee (11.5-14.5) % Lymph # (Auto) (1.2-3.4) K/uL PT (9.0-12.0) Seconds INR (0.9-1.1) Potassium (3.5-5.1) mmol/L Glucose (70-99(Fasting)) mg/dl Calcium (8.5-10.1) mg/dl Magnesium (1.7-2.4) mg/dl Total Bilirubin (0.2-1.0) mg/dl AST (13-39) U/L Alkaline Phosphatase (34-104) U/L Ammonia 81.0 H (18-72) umol/L Total Protein (6.0-8.3) gm/dl Globulin (2.5-4.0) gm/dl Urine Ketones Trace H (Negative) Urine Nitrite Positive A (Negative) Ur Leukocyte Esterase 1+ H (Negative) Urine WBC (Auto) 10-30 H (0-5) /hpf Urine Bacteria (Auto) 4+ H (Negative) Diagnostic Findings Chest X-Ray 01/22/22 11:37 XR chest 1V portable HISTORY: weakness COMPARISON: Chest 11/25/2021. FINDINGS: The lungs are clear. Cardiac silhouette is normal in size. No pleural effusions. No pneumothorax. Low lung volumes. Prior cholecystectomy. IMPRESSION: No acute process. ACT 112: Negative or not required by law. Electronically signed by: Ivan Veronica M.D. 01/22/2022 1:05 PM KUB X-Ray 01/22/22 11:38 KUB HISTORY: liver failure no BM with lactulose COMPARISON: KUB 12/22/2021. FINDINGS: The bowel gas pattern is unremarkable. There are no dilated loops of small bowel to suggest an obstruction. No renal calculi. No ureteral calculi. Calcifications in the deep pelvis likely represent phleboliths. No pneumoperitoneum or pneumatosis. Surgical clips again noted within the right upper quadrant. Small amount of well-formed stool seen throughout the colon. IMPRESSION: No change compared to the prior study. No evidence for bowel obstruction. ACT 112: Negative or not required by law. Electronically signed by: Ivan Veronica M.D. 01/22/2022 1:07 PM Supervising Physician Co-Signing Physician Notes Aurelia Kurtz is a 66-year-old female with a past medical history of of liver cirrhosis with portal hypertension 2/2 DAILY awaiting liver transplantation, nephrolithiasis, thrombocytopenia, hyperparathyroidism, type 2 diabetes mellitus, Moeller's esophagus, hypothyroidism who presents on referral from her outpatient physician for hyperammonemia of 120 without confusion. In ER she was found to have a ammonia level of 81. Patient has been taking lactulose at home, had bowel movements yesterday but had only had 1 bowel movement day of adm ission. End-stage liver disease awaiting transplant, patient does not have a transplant date yet. On serial labs was found to have high ammonia yesterday. Does not feel she has been confused, no falls, no difficulty ambulating although has been a little bit more tired than normal. Had multiple bowel movements yesterday and overnight, only 1 today. Has been taking her medications including lactulose as directed. Denies chest pain, chest pressure, shortness of breath, difficulty breathing with polyuria. Hyperammonemia 2/2 liver cirrhosis with portal hypertension 2/2 DAILY KUB: No evidence of SBO, no acute changes. Continues to have pelvic calcifications. CXR: No acute process Awaiting liver transplantation Child Quiles class B MELD 14, 6% 3-month mortality Outpatient pneumonia 120, ammonia in ER 81.0 Continue Xifaxan, lactulose 30 g 3 times daily titrate to at least 34 bowel movements daily. Ammonia downtrending, mild-minimal encephelopathy on exam Avoid NSAIDs, avoid alcohol - May use Tylenol with 2 g daily limit Portal hypertension EGD 05/2020: Grade 1 esophageal varices. Continue propranolol 20 mg 3 times daily PPI 40 mg daily, convert to Protonix while inpatient Was pending for EGD as outpatient with hematology follow-up last month for concern of potential partial portal vein thrombus not appreciated on subsequent reimaging Hypokalemia 3.1 K on admit with associated hypomagnesemia - Repletion ordered, trend daily Primary hyperparathyroidism Last parathyroid hormone 27.7 wnl 12/2021 - PTH-RP 9 (L) 11/06/21 - Vitamin D 03/2021 <8 in the setting of cirrhosis Calcium 11.2 on admission Type 2 diabetes mellitus A1c well controlled at last check Hold home antilipemics Continue SSI goal BSG [id number] Hypothyroidism TSH normal on admission Continue Synthroid daily alternating between 112 and 110 mcg Hypomagnesemia Continue magnesium supplementation 1 dose IV given Slow-Mag deferred 2/2 calcium content Anxiety/depression Continue paroxetine. No significant hyponatremia Hyperlipidemia Continue rosuvastatin 20 mg daily UTI Urine with 4+ bacteria, no epithelial cells, leukocyte esterase, nitrate consistent with UTI. UC pending. - Continue Rocephin daily PG Care Time/CCT Total # of Minutes Spent Total Time Spent with Patient: Total time spent is greater than 50% in coordination of care (as documented) at patient's floor/unit and/or counseling patient: Coding Level of Care Code 53733 Initial Inpt Care Lvl 3 Diagnoses Hyperammonemia E72.20 Liver cirrhosis secondary to DAILY K75.81; K74.60 Portal hypertension K76.6 Pancytopenia D61.818 Hypomagnesemia E83.42 Hypothyroidism E03.9 Moeller's esophagus with esophagitis K22.70; K20.9 Diabetes mellitus, type 2 E11.9 Anxiety and depression F41.9; F32.9 Primary hyperparathyroidism E21.0 Hypokalemia E87.6
[2022-01-22] MEDS ORDERED: POTASSIUM CHLORIDE CRTAB 20 MEQ TABCR PO STA (15:06)
[2022-01-22] MEDS ORDERED: ACETAMINOPHEN 325 MG TAB PO PRN (16:45)
[2022-01-22] MEDS ORDERED: GLUCOSE 40% GEL 15 GM TUBE PO PRN (16:45)
[2022-01-22] MEDS ORDERED: CARBOHYDRATES FOR HYPOGLYCEMIA PO PRN (16:45)
[2022-01-22] MEDS ORDERED: ONDANSETRON INJ 2 MG/ML 2 ML VIAL IV PRN (16:45)
[2022-01-22] MEDS ORDERED: POLYETHYLENE (MIRALAX) 17 GM PACK PO PRN (16:45)
[2022-01-22] MEDS ORDERED: DEXTROSE 50% 50 ML SYRINGE IV PRN (16:45)
[2022-01-22] MEDS ORDERED: LORazepam 0.5 MG TAB PO PRN (16:45)
[2022-01-22] MEDS ORDERED: ZOLPIDEM TARTRATE 5 MG TAB PO PRN (16:45)
[2022-01-22] MEDS ORDERED: GLUCAGON FOR INJ 1 MG VIAL SQ PRN (16:45)
[2022-01-22] MEDS ORDERED: ALUMINUM/MAGNESIUM SUSP 30 ML UDC PO PRN (16:45)
[2022-01-22] MEDS ORDERED: GLUCOSE 10 TAB/TUBE PO PRN (16:45)
[2022-01-22] MEDS: INSULIN ASPART PER UNIT SC SCH ×2 (18:09→21:41)
[2022-01-22] MEDS: LACTULOSE SYRUP 30 GM/45 ML UDP PO SCH (19:55)
[2022-01-22] MEDS: PROPRANOLOL HCL 20 MG TAB PO SCH (19:56)
[2022-01-22] MEDS: rifAXIMin 550 MG TABLET PO SCH (19:56)
[2022-01-22] MEDS: POTASSIUM CHLORIDE CRTAB 20 MEQ TABCR PO SCH (19:56)
[2022-01-22] MEDS: HEPARIN SOD 5,000 UNIT/0.5 ML VIAL SQ SCH (20:01)
[2022-01-22] MEDS ORDERED: ROSUVASTATIN CALCIUM 20 MG TAB PO SCH (21:00)
--- NOTE | 2022-01-23 04:55 | Electrocardiogram Report ---
Test Reason : Blood Pressure : / mmHG Vent. Rate : 077 BPM Atrial Rate : 077 BPM P-R Int : 144 ms QRS Dur : 086 ms QT Int : 400 ms P-R-T Axes : 031 -01 011 degrees QTc Int : 452 ms Normal sinus rhythm Minimal voltage criteria for LVH, may be normal variant Possible Inferior infarct (cited on or before 22-DEC-2021) Nonspecific ST abnormality Abnormal ECG When compared with ECG of 22-DEC-2021 14:25, No significant change Reconfirmed by Sg Clark ([id number]) on 01/23/2022 4:54:43 AM Referred By: Reza Cid Confirmed By:Sg Clark
[2022-01-23] MEDS ORDERED: LEVOTHYROXINE SODIUM 100 MCG TABLET PO SCH (06:30)
[2022-01-23 06:35] LABS: Hematocrit (blood only) 26.3 % (34.1-44.9); Hemoglobin 8.7 g/dl (12.0-16.0); Mean Platelet Volume 9.3 fL (9.4-12.3); Platelet Count 129 K/uL (130-400); White Blood Count 3.61 K/ul (4.8-10.8)
[2022-01-23 06:57] LABS: Acanthocytes 1+; Basophils # (auto) 0.01 K/uL (0-0.2); Basophils % (auto) 0.3 %; Eosinophils # (auto) 0.36 K/uL (0-0.50); Immature Granulocytes # (auto) 0.01 K/uL (0.00-0.02); Immature Granulocytes % (auto) 0.3 %; Lymphocytes # (auto) 1.21 K/uL (1.2-3.4); Lymphocytes % (auto) 33.5 %; Mean Corpuscular Hemoglobin 28.9 pg (25.0-34.0); Mean Corpuscular Hgb Conc 33.1 g/dL (32.0-36.0); Mean Corpuscular Volume 87.4 fL (80.0-100.0); Monocytes # (auto) 0.71 K/uL (0.24-0.82); Monocytes % (auto) 19.7 %; Neutrophils # (auto) 1.31 K/uL (1.4-6.5); Neutrophils % (auto) 36.2 %; RDW Coefficient of Variation 14.6 % (11.5-14.5); Red Blood Count 3.01 M/uL (3.93-5.22)
[2022-01-23 07:11] LABS: Albumin Globulin Ratio 1.6 (0.9-2); BUN Creatinine Ratio 11.5 (10-20); Bilirubin,Total 3.5 mg/dl (0.2-1.0); Calcium 9.7 mg/dl (8.5-10.1); Creatinine Clr Calc Pharmacy 47.8 ml/min; Est GFR (African American) 63.9 ml/min; Est GFR (Non-African American) 55.2 ml/min; Globulin 1.9 gm/dl (2.5-4.0); Potassium 3.9 mmol/L (3.5-5.1); Total Protein 4.9 gm/dl (6.0-8.3)
[2022-01-23] MEDS: rifAXIMin 550 MG TABLET PO SCH (08:45)
[2022-01-23] MEDS: PROPRANOLOL HCL 20 MG TAB PO SCH ×2 (08:45→14:37)
[2022-01-23] MEDS: POTASSIUM CHLORIDE CRTAB 20 MEQ TABCR PO SCH (08:46)
[2022-01-23] MEDS: HEPARIN SOD 5,000 UNIT/0.5 ML VIAL SQ SCH (08:46)
[2022-01-23] MEDS: INSULIN ASPART PER UNIT SC SCH ×3 (08:54→18:16)
[2022-01-23] MEDS: LACTULOSE SYRUP 30 GM/45 ML UDP PO SCH ×2 (08:55→14:37)
[2022-01-23] MEDS ORDERED: PANTOprazole 40 MG TAB PO SCH (09:00)
[2022-01-23] MEDS ORDERED: MAGNESIUM OXIDE 400 MG TAB PO SCH (09:00)
[2022-01-23] MEDS ORDERED: PARoxetine HCL 20 MG TAB PO SCH (09:00)
[2022-01-23] MEDS ORDERED: traMADol HCL 50 MG TABLET PO STA (14:01)
[2022-01-23] MEDS ORDERED: HYOSCYAMINE SULFATE 0.125 MG TAB PO PRN (14:02)
--- NOTE | 2022-01-23 14:26 | Discharge Summary ---
Date of Service January 23, 2022 Admission HPI Per Admitting Provider Aurelia Kurtz is a 66-year-old female with past medical history significant for end-stage liver disease, Moeller's esophagus, DM2, hypothyroidism, anxiety, and depression who presents afebrile of her PCP due to an elevated ammonia. 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 She follows with liver transplant team with [facility]. Home health nurses come to her home regularly to check labs, today she was alerted to come to the ED today when her ammonia was found to be 120. Patient herself is without any complaints, she has been perhaps more weak than usual and has burning in her groin region which she attributed to her frequent bowel movements, but without any confusion, no recent falls, fever/chills, or other pain. She notes compliance with her lactulose, had several bowel movements yesterday, approximately 612/day over the past week, but today has not yet had one. On presentation to the ED, her vital signs are within normal limits and stable. Her ammonia level in our ED is 81, was 120 on labs from yesterday. Other labs are at baseline for her, she has chronic pancytopenia, INR 1.2, platelets 161, potassium and magnesium both mildly low at 3.1 and 1.5 respectively. Calcium elevated to 11.2, T bili 3.8, AST 56, alk phos 198, which is baseline. Her urine appears infected with 4+ bacteria, 1030 WBCs, 1+ leuk esterase, positive for nitrates, no epithelial cells present. KUB and CXR unremarkable for acute process, no bowel obstruction or fecal retention noted. Principal Diagnosis 1. Hyperammonemia 2. End stage liver disease secondary to DAILY Discharge Exam GENERAL: 66 yo Well-developed, well-nourished WF. NAD. b/l scleral icterus noted. LUNGS: Clear to auscultation bilaterally. No W/R/R. CARDIOVASCULAR: Regular rate and rhythm. ABDOMEN: Soft, non-tender and non-distended. BS normoactive x 4 quad. EXTREMITIES: No edema. Non-tender. Peripheral pulses +2/4. NEUROLOGIC: A&O x3. Nonfocal. PSYCHIATRIC: Cooperative. Appropriate mood and affect. SKIN: Warm, dry, intact. No rashes or lesions. Discharge Data Allergies Allergy/AdvReac Type Severity Reaction Status Date / Time bee venom protein (honey bee) Allergy Severe Anaphylaxis Verified 12/22/21 17:38 Influenza Virus Vaccines Allergy Severe Anaphylaxis Verified 12/22/21 17:38 tetracycline AdvReac Severe Severe Verified 12/22/21 17:38 stomach pains Consultations 01/22/22 15:10 ED Decision to Admit Stat Ordered Studies 01/23/22 06:25 01/23/22 06:25 Hospital Course (1) Hyperammonemia: - Ammonia 129 on 01/21 --> 81 on 01/22 - Complains of weakness, decreased BMs today - Secondary to liver cirrhosis, portal hypertension. - KUB: No evidence of SBO, no acute changes. Continues to have pelvic calcifications. - CXR: No acute process - UA appears infected, will treat with Rocephin daily. Awaiting urine culture. - Continue Xifaxan, increase lactulose 30g to 3 times daily titrate to at least 34 bowel movements daily. Typically takes Lactulose only BID at home. - Avoid NSAIDs, avoid alcohol. - May use Tylenol with 2 g daily limit-pt refused and asked specifically for Tramadol which she still sparingly takes at home PRN abd pain - Also pt takes Hyoscyamine prn abd spasms/pain - counseled her and her family not to use this frequently as this will cause reduced gut motility and cause increased ammonia level (2) Liver cirrhosis secondary to DAILY: - Child Quiles class B MELD 14, 6% 3-month mortality - Awaiting transplantation. - Follow up in [place] next week as scheduled. (3) UTI (urinary tract infection): - UA appears c/w UTI, started on Rocephin, culture pending - Prelim culture with growth of 2 gram negatives - Will convert to Cefdinir 300mg BID x 3 more days to complete total of 5 day course given uncomplicated (4) Portal hypertension: - EGD 05/2020: Grade 1 esophageal varices. - Continue propranolol 20 mg 3 times daily - Omeprazole 40 mg daily, convert to Protonix while inpatient. - Was pending for EGD as outpatient with hematology follow-up last month for concern of potential partial portal vein thrombus not appreciated on subsequent reimaging. (5) Pancytopenia: - stable (6) Hypomagnesemia: - Continue magnesium supplementation. - Ordered additional 2 mag riders today as mag level still 1.5 (7) Hypothyroidism: --TSH normal on admission Continue Synthroid daily alternating between 112 and 110 mcg (8) Moeller's esophagus with esophagitis: - Continue PPI. (9) Diabetes mellitus, type 2: - A1c well controlled at last check - Hold home oral antiglycemics. - Accu-Cheks with SSI goal BSG [id number] (10) Anxiety and depression: - Continue paroxetine. No significant hyponatremia. (11) Primary hyperparathyroidism: - Last parathyroid hormone 27.7 wnl 12/2021. - PTH-RP 9 (L) 11/06/21. - Vitamin D 03/2021 <8 in the setting of cirrhosis. - Calcium 11.2 on admission. (12) Hypokalemia: - 3.1 K on admit with associated hypomagnesemia. - Repletion ordered, repeated this AM and WNL at 3.9 Plan Patient is medically and hemodynamically stable for discharge home today on increased dose of Lactulose as outlined above. Please note as it was stressed by the family that pt does still take Tramadol at home for her abdominal pain. Family wanted this clarified as it was not ordered when she was admitted on 01/22. She refuses to take any Tylenol d/t her liver disease. I have advised her to keep her scheduled f/u with [place] transplant team next week. Advise also pcp follow up within 1 week of hospital discharge. Plan d/w Dr. Kurtz who is in agreement with aforementioned. Total Time Total Time Spent Total Time Spent (In Minutes): >30 minutes Discharge Plan Discharge Items Patient Disposition: Home - Home Health Services Reason For Visit: HYPERAMMONIA, DAILY CIRRHOSIS Discharge Diagnosis: elevated ammonia level Activity: Resume your previous activity Non-emergency contact: Primary Care Provider and Specialist Call non-emergency contact if: you have any medication questions Follow-up/Referrals: Reza Cid MD [Primary Care Provider] - Diet: Carb Consistent or DM2 Addtl Attending Provider Instructions: You were hospitalized due to elevated ammonia level. Your lactulose was increased from 30 grams twice a day to 30 grams THREE TIMES A DAY. Please take as directed. Minimize taking the Hyoscyamine as this can slow down your cut and cause ammonia level to build up. Use this medication sparingly. You may continue using Tramadol as needed for abdominal pain. This medication can also slow down your gut and cause constipation, so again, use sparingly. You were also noted to have a urinary tract infection. You were started on IV antibiotics here in the hospital called Quentin. You received 2 doses. You will be converted to a course of oral antibiotics called Cefdinir. Please take this medication as directed for the next 3 days to complete a total of 5 days. You are due for your next dose on 11 in the morning. Keep your scheduled follow up with your transplant team in [place] next week. Recommend follow up with your primary care provider within 1 week of discharge from the hospital. In the event of any questions/concerns that should arise after you leave the hospital, you can contact the nonemergency number listed on your discharge paperwork. In the event of a medical emergency, call 911. Pending Studies at Discharge: No Stand-Alone Forms: My [facility], Smoking Cessation Medications and DC Order Prescriptions: New cefdinir 300 mg capsule 300 mg PO BID Qty: 6 0RF Continued levothyroxine 100 mcg tablet 100 mcg PO Q2D Qty: 45 1RF Rx Instructions: 100 mcg PO every other day; alternate with 112 mcg paroxetine HCl 20 mg tablet 40 mg PO QAM valacyclovir 1 gram tablet 1 mg PO UD PRN (Reason: Cold Sores) Label Comments: NOT CURRENTLY USING levothyroxine 112 mcg tablet 112 mcg PO Q2D Rx Instructions: 112 mcg PO every other day, alternate with 100 mcg. Take 1st thing in the morning on an empty stomach 30 min prior to any other oral intake. dulaglutide 3 mg/0.5 mL pen injector 3 mg subcut WK Label Comments: SUNDAYS Rx Instructions: Inject 3 mg subcut once weekly Wednesday omeprazole 40 mg Capsule,Delayed Release(Dr/Ec) 40 mg PO DAILY potassium chloride [Klor-Con M20] 20 mEq tablet,ER particles/crystals 20 meq PO BID rosuvastatin 20 mg tablet 20 mg PO HS Klor-Con/EF 25 mEq tablet, effervescent 25 meq PO TID Xifaxan 550 mg tablet 550 mg PO BID Rx Instructions: ordered 01/07/22 for 30 days nystatin 100,000 unit/gram powder 1 applic TOPICAL TID Rx Instructions: apply to fungal rash chlorthalidone 25 mg tablet 25 mg PO DAILY zolpidem 5 mg tablet 5 mg PO HS lorazepam 1 mg tablet 1 mg PO TID PRN (Reason: Anxiety) propranolol 80 mg capsule,extended release 24hr 80 mg PO DAILY magnesium oxide 500 mg Tablet 500 mg PO DAILY tramadol 50 mg tablet PO DAILY PRN (Reason: Pain) lactulose 20 gram/30 mL solution 30 g PO TID Qty: 4050 0RF Women's 50 Plus Multivitamin 400 mcg-500 mg calcium-20 mcg Tablet 1 tab PO QAM Discharge Orders: Discharge Order (Routine); Ordered 01/23/22 Ordered By: Mel Nicholas Admission Data Admit Date/Time: 01/22/22 14:51 Attending Provider: Hoang Kurtz Admit Provider: Fredy Louis Primary Care Provider: Reza Cid Other Providers: Fredy Louis Supervising Physician Co-Signing Physician Notes I supervised Mel Nicholas PA-C on the care of this patient. I did not see the patient as she had been admitted <24 hours and seen by an attending in that time. The plan is as written in her note except for any following changes/exceptions: None 66yo F w/ hx of DAILY cirrhosis. Frequent admission for hepatic encephalopathy, recurring in the context of underdosing her lactulose due to diarrhea. Improved with increased lactulose dose and presently at baseline. Ready for discharge. Coding Level of Care Code 78190 OBS Care - Discharge Diagnoses Hyperammonemia E72.20 Liver cirrhosis secondary to DAILY K75.81; K74.60 UTI (urinary tract infection) N39.0 Portal hypertension K76.6 Pancytopenia D61.818 Hypomagnesemia E83.42 Hypothyroidism E03.9 Moeller's esophagus with esophagitis K22.70; K20.9 Diabetes mellitus, type 2 E11.9 Anxiety and depression F41.9; F32.9 Primary hyperparathyroidism E21.0 Hypokalemia E87.6
[2022-01-23] MEDS ORDERED: cefTRIAXone SODIUM 1,000 MG in DEXTROSE 5% 50 ML IV SCH (15:00)
[2022-01-23] MEDS: MAGNESIUM SULFATE / D5W 1 GM/100 ML BAG IV SCH ×2 (15:17→17:14)
--- NOTE | 2022-01-23 16:35 | Communication Note ---
Date of Service: January 23, 2022 By CMS guidelines, a determination that the admission or continued stay is not medically necessary has been made by a member of the UR committee and kelsie kathleen for this hospital stay, therefore a Code 44 will be completed and the Inpatient admission will be changed to outpatient.
[2022-01-24] MEDS ORDERED: LEVOTHYROXINE SODIUM 112 MCG TABLET PO SCH (06:30)
== END 2022-01-23 19:26 | disposition home health service (06) | DRG 433 ==
LOC: ED 10:13 → 3N 14:51 → SUATTDRO 14:51 → INTOOBSV 14:51 → 3N 16:20

== ENCOUNTER 2022-04-18 07:37 | Inpatient (IN) ==
[2022-04-18] MEDS ORDERED: SODIUM CHLORIDE 0.9% 1000ML 1,000 ML IV ONE (07:48)
--- NOTE | 2022-04-18 07:49 | Emergency Department Note ---
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 Patient has had any increase in gait instability, increase in tremors, increase in weakness, and increase in confusion. Her eyes are more yellow than normal. She has had multiple full body convulsions over the past 1 to 2 days that last for about a minute. Does not have a history of seizures though her is concerned she may be having small seizures. She does not appear to be more confused after these episodes and he is also wondering if this could be full body cramping. She does not seem to be more confused after these episodes She has been taking her lactulose and having bowel movements. Does have daily chronic diarrhea. Has also been complaining of some abdominal pain over the past several days. Has not had any vomiting. She did fall several days ago when she missed a step at the bottom of the stairs and hit her head. Her states that she is essentially unable to walk today. If someone were to let her go while assisting her she would fall over. Family has not sought medical care since symptoms worsened over the past 4 to 5 days. Patient is on a transplant list for liver transplant and has a donor, in the process of coordinating. Is currently being treated with antibiotics for sinus infection, has taken these medications for about 5 days. unsure what she is taking She has not had any recent fevers, chills, sore throat, cough, dysuria, vomiting, chest pain, or shortness of breath. Has been admitted for electrolyte disturbances in the past. Home Medications Medication Instructions Recorded Confirmed Type paroxetine HCl 20 mg tablet 80 mg PO QAM 04/17/19 04/18/22 History valacyclovir 1 gram tablet 1 mg PO UD PRN Cold Sores 04/16/21 04/18/22 History [id number] ac 400 1 tab PO QAM 07/15/21 04/18/22 History mcg-calcium carb 500 mg-vit K1 20 mcg tablet (Women's 50 Plus Multivitamin) omeprazole 40 mg capsule,delayed 40 mg PO QAM 11/04/21 04/18/22 History release potassium chloride 20 mEq 20 meq PO BID 12/22/21 04/18/22 History tablet,extended release(part/cryst) (Klor-Con M) chlorthalidone 25 mg tablet 25 mg PO QAM 01/22/22 04/18/22 History magnesium oxide 500 mg tablet 500 mg PO QAM 01/22/22 04/18/22 History propranolol 80 mg capsule,24 80 mg PO QAM 01/22/22 04/18/22 History hr,extended release rifaximin 550 mg tablet (Xifaxan) 550 mg PO BID 01/22/22 04/18/22 History lactulose 20 gram/30 mL oral 30 g (45 mL) PO TID #4,050 mL 01/23/22 04/18/22 Rx solution tramadol 50 mg tablet 50 mg PO DAILY PRN Pain 01/23/22 04/18/22 History levothyroxine 112 mcg tablet 112 mcg PO Q2D #45 tabs 02/24/22 04/18/22 Rx Trulicity 3 mg SC Q7D 04/18/22 04/18/22 History clotrimazole 04/18/22 History hydroxyzine HCl 25 mg PO QPM 04/18/22 04/18/22 History levothyroxine 100 mcg tablet 100 mcg PO Q2D 04/18/22 04/18/22 History paroxetine HCl 40 mg PO QAM 04/18/22 04/18/22 History rifaximin 550 mg PO QID 04/18/22 04/18/22 History sulfamethoxazole PO QID sinus infection 04/18/22 History Allergies Allergy/AdvReac Type Severity Reaction Status Date / Time bee venom protein (honey bee) Allergy Severe Anaphylaxis Verified 03/06/22 07:58 Influenza Virus Vaccines Allergy Severe Anaphylaxis Verified 03/06/22 07:58 tetracycline AdvReac Severe Severe Verified 03/06/22 07:58 stomach pains Past Med/Surg History Medical History Anemia HX Anxiety and depression Arthritis Moeller's esophagus with esophagitis Chronic diarrhea SOMETIMES - when takes lactulose 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 Depression Diabetes mellitus, type 2 Diverticulosis GERD (gastroesophageal reflux disease) Heel spur B/L feet Hiatal hernia History of colon polyps BENIGN History of fractured vertebra CURRENT, HX FALL JULY 2021 - FELL OF THE TOILET - NO INTERVENTION AT PRESENT/ DR REYES 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 12 FOR TO DISCUSS TX OPTIONS - POTENTIAL BACK BRACE History of kidney stones Hyperlipidemia Hypertension NO CURRENT MEDS Hypothyroidism 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) Seasonal allergies Spleen enlarged MONITORS - PT REPORTS FROM THE REBOLLAR Stucco keratoses Temporomandibular joint disorder NO LOCKING/WEARS WEIGHT SHIFTER Thyroid disease Surgical History H/O thumb surgery RT/LEFT JOINT REPAIR H/O total hysterectomy History of appendectomy History of arthroscopy of knee Left Knee - meniscus/cartilage History of colonoscopy History of cystoscopy History of esophagogastroduodenoscopy (EGD) History of tonsillectomy and adenoidectomy History of tooth extraction Hx of cholecystectomy Family History Brother Coronary heart disease Heart disease Mother Family history of diabetes mellitus Hypertension Heart disease Sister Family history of diabetes mellitus Son Family history of diabetes mellitus Father Family hx of colon cancer Hearing loss Hypertension Cancer Heart disease Grandfather (Maternal) Family hx of colon cancer Other No family history of adverse response to anesthesia No family history of bleeding disorder Social History Smoking Status: Never smoker Second Hand Exposure: No; Hx Alcohol Use: No Hx Substance Use: No Preferred Language: Lithuanian Communication Ability: Effective 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 Beliefs That Will Affect Care: None marital status: Current Living Situation: Spouse Current Living Situation Comment: and sister current occupational status: employed and retired How many Children do You have: 0 Feels Safe at Home: Yes Assistive Devices: Glasses Physical Exam Vital Signs Vital Signs - 24 hr 04/18/22 07:38 04/18/22 08:01 04/18/22 08:12 Temperature 97.7 F Temperature Source Temporal Artery Scan Pulse Rate 78 Pulse Rate [Left Apical] 81 Pulse Rhythm [Left Apical] Regular Pulse Strength [Left Apical] Normal Respiratory Rate 20 16 Respiratory Effort / Characteristics Non-Labored Spontaneous Respiratory Depth Normal Respiratory Pattern Blood Pressure 88/62 L Blood Pressure [Left Arm] 135/62 Blood Pressure Mean 70 Blood Pressure Mean [Left Arm] 86 Blood Pressure Position [Left Arm] Lying Pulse Oximetry 98 99 Oxygen Delivery Method Room Air Room Air Room Air Sepsis Recent Fever Within 48 Hours No Sepsis New/Unexplained Change in Mental Status No Sepsis Action Taken by Nursing No Action Required 04/18/22 10:00 04/18/22 12:00 Temperature Temperature Source Pulse Rate Pulse Rate [Left Apical] 76 76 Pulse Rhythm [Left Apical] Regular Regular Pulse Strength [Left Apical] Normal Normal Respiratory Rate 18 18 Respiratory Effort / Characteristics Non-Labored Non-Labored Respiratory Depth Normal Normal Respiratory Pattern Regular Regular Blood Pressure Blood Pressure [Left Arm] 135/64 127/70 Blood Pressure Mean Blood Pressure Mean [Left Arm] 87 89 Blood Pressure Position [Left Arm] Lying Lying Pulse Oximetry 97 97 Oxygen Delivery Method Room Air Room Air Sepsis Recent Fever Within 48 Hours Sepsis New/Unexplained Change in Mental Status Sepsis Action Taken by Nursing CONSTITUTIONAL: Well developed, well nourished, resting comfortably on stretcher though is slightly anxious and weak appearing. She is unable to sit forward for extended period of time and falls backwards onto the stretcher when sitting upright. HEAD: Normocephalic, atraumatic. EYES: Pupils are constricted. Bilateral scleral icterus is appreciated. Extraocular muscles are intact ENMT: External ears normal. Nose with normal external appearance, no congestion. Oral mucous membranes dry. Oropharynx normal. Tongue midline, no fasciculations NECK: Full active range of motion. RESPIRATORY: Breathing unlabored and symmetric. Lungs clear to auscultation bilaterally. No wheeze, rales, or rhonchi. CARDIOVASCULAR: Regular rate and rhythm. Systolic murmur appreciated at the pulmonic region. CHEST: Nontender, no crepitus. ABDOMEN: Normal bowel sounds. Soft, nontender, no peritonitis. No masses. MUSCULOSKELETAL: Able to move all 4 extremities, no pain elicited. With full range of motion. No edema. SKIN: [place], warm, dry. Slight jaundice is appreciated. NEUROLOGIC: Awake, alert, oriented to person, place, year. Gaze is conjugate. Cranial nerves II through XII intact. Asterixis is present in bilateral upper extremities. No pronator drift. 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 Strength 5+ in bilateral lower extremities. Sensation intact. No seizure-like activity appreciated. PSYCHIATRIC: Appropriate. Normal affect Course Administered Medications Discontinued Medications Sodium Chloride (Nss 1000ml) 1,000 mls @ 999 mls/hr IV .Q1H1M ONE Stop: 04/18/22 08:48 Last Admin: 04/18/22 08:46 Dose: Not Given Documented By: GATO Sodium Chloride (Nss) 500 mls @ 999 mls/hr IV .Q31M ONE Stop: 04/18/22 08:42 Last Infusion: 04/18/22 09:21 Dose: 0 mls/hr Documented By: Admin: 04/18/22 08:45 Dose: 999 mls/hr Documented By: GATO Magnesium Sulfate/Dextrose (Magnesium Sulfate / D5w) 1 gm in 100 mls @ 200 mls/hr IV Q1H PRIMITIVO Stop: 04/18/22 10:29 Last Infusion: 04/18/22 10:13 Dose: 0 mls/hr Documented By: Admin: 04/18/22 09:36 Dose: 200 mls/hr Documented By: Infusion: 04/18/22 09:36 Dose: 200 mls/hr Documented By: Admin: 04/18/22 09:09 Dose: 200 mls/hr Documented By: GATO Lactulose (Lactulose Syrup 30 Gm/45 Ml Udp) 30 gm PO NOW STA Stop: 04/18/22 09:21 Last Admin: 04/18/22 09:43 Dose: 30 gm Documented By: GATO Lorazepam (Lorazepam 2 Mg/1 Ml Vial) 0.5 mg IV NOW STA Stop: 04/18/22 09:59 Last Admin: 04/18/22 10:25 Dose: 0.5 mg Documented By: GATO Medical Decision Making Differential Diagnosis Dehydration, elevated ammonia, electrolyte disturbance, encephalopathy, intracranial hemorrhage, concussion, UTI, medication reaction, seizure, anemia, arrhythmia, IL, hypoperfusion, CVA, among other pathology Medical Records Attestation: I reviewed the patient's medical records. Laboratory Data 04/18/22 07:56 04/18/22 07:56 Lab Results 04/18/22 04/18/22 04/18/22 Range/Units 07:56 07:56 07:56 WBC 6.65 (4.8-10.8) K/ul RBC 3.40 L (4.20-5.40) M/uL Hgb 8.6 L (12.0-16.0) g/dl Hct 26.3 L (37.0-47.0) % MCV 77.4 L (80.0-100.0) fL MCH 25.3 (25.0-34.0) pg MCHC 32.7 (32.0-36.0) g/dL RDW Std Deviation 51.7 H (36.4-46.3) fL RDW Coeff of Charlee 18.3 H (11.5-14.5) % Plt Count 173 (130-400) K/uL MPV 9.3 L (9.4-12.4) fL Immature Gran % (Auto) 0.2 % Neut % (Auto) 41.5 % Lymph % (Auto) 28.7 % Bent % (Auto) 21.8 % Eos % (Auto) 7.2 % Baso % (Auto) 0.6 % Neut # (Auto) 2.76 (1.40-6.50) K/uL Lymph # (Auto) 1.91 (1.2-3.4) K/uL Bent # (Auto) 1.45 H (0.11-0.59) K/uL Eos # (Auto) 0.48 (0-0.50) K/uL Baso # (Auto) 0.04 (0-0.2) K/uL Immature Gran # (Auto) 0.01 (0.01-0.20) K/uL PT (9.0-12.0) Seconds INR (0.9-1.1) Sodium 139 (136-145) mmol/L Potassium 3.5 (3.5-5.1) mmol/L Chloride 107 (98-107) mmol/L Carbon Dioxide 25 (21-32) mmol/L Anion Gap 7 (3-11) BUN 16 (6-23) mg/dl Creatinine 1.31 H (0.6-1.2) mg/dl Est Cr Clr Drug Dosing 38.6 ml/min Est GFR ( Amer) 48.4 ml/min Est GFR (Non-Af Amer) 41.7 ml/min BUN/Creatinine Ratio 12.2 (10-20) Glucose 98 (70-99(Fasting)) mg/dl Calcium 11.3 H (8.5-10.1) mg/dl Magnesium 1.2 L (1.7-2.4) mg/dl Total Bilirubin 4.0 H (0.2-1.0) mg/dl AST 44 H (13-39) U/L ALT 23 (7-52) U/L Alkaline Phosphatase 199 H (34-104) U/L Ammonia 123.0 H (18-72) umol/L Troponin I High Sens 9.2 (0-14) pg/ml Total Protein 5.4 L (6.0-8.3) gm/dl Albumin 3.4 (3.4-5.0) gm/dl Globulin 2.0 L (2.5-4.0) gm/dl Albumin/Globulin Ratio 1.7 (0.9-2) Lipase 97 H (11-82) U/L SARS-CoV-2, RNA, NAAT (NEGATIVE) 04/18/22 04/18/22 Range/Units 07:56 09:18 WBC (4.8-10.8) K/ul RBC (4.20-5.40) M/uL Hgb (12.0-16.0) g/dl Hct (37.0-47.0) % MCV (80.0-100.0) fL MCH (25.0-34.0) pg MCHC (32.0-36.0) g/dL RDW Std Deviation (36.4-46.3) fL RDW Coeff of Charlee (11.5-14.5) % Plt Count (130-400) K/uL MPV (9.4-12.4) fL Immature Gran % (Auto) % Neut % (Auto) % Lymph % (Auto) % Bent % (Auto) % Eos % (Auto) % Baso % (Auto) % Neut # (Auto) (1.40-6.50) K/uL Lymph # (Auto) (1.2-3.4) K/uL Bent # (Auto) (0.11-0.59) K/uL Eos # (Auto) (0-0.50) K/uL Baso # (Auto) (0-0.2) K/uL Immature Gran # (Auto) (0.01-0.20) K/uL PT 14.1 H (9.0-12.0) Seconds INR 1.3 H (0.9-1.1) Sodium (136-145) mmol/L Potassium (3.5-5.1) mmol/L Chloride (98-107) mmol/L Carbon Dioxide (21-32) mmol/L Anion Gap (3-11) BUN (6-23) mg/dl Creatinine (0.6-1.2) mg/dl Est Cr Clr Drug Dosing ml/min Est GFR ( Amer) ml/min Est GFR (Non-Af Amer) ml/min BUN/Creatinine Ratio (10-20) Glucose (70-99(Fasting)) mg/dl Calcium (8.5-10.1) mg/dl Magnesium (1.7-2.4) mg/dl Total Bilirubin (0.2-1.0) mg/dl AST (13-39) U/L ALT (7-52) U/L Alkaline Phosphatase (34-104) U/L Ammonia (18-72) umol/L Troponin I High Sens (0-14) pg/ml Total Protein (6.0-8.3) gm/dl Albumin (3.4-5.0) gm/dl Globulin (2.5-4.0) gm/dl Albumin/Globulin Ratio (0.9-2) Lipase (11-82) U/L SARS-CoV-2, RNA, NAAT NEGATIVE (NEGATIVE) Imaging Data Radiologist's Impression: Head CT 04/18/22 08:11 CT head/brain wo con CLINICAL HISTORY: 66 years-old Female with Increase confusion, fall several days ago. Acutely altered mental status. Head trauma status post fall TECHNIQUE: Multiple axial CT images of the head were obtained without contrast. A dose lowering technique was utilized adhering to the principles of ALARA. CT DOSE: 614.27 mGy.cm COMPARISON: 12/22/2021 FINDINGS: No acute intracranial hemorrhage, midline shift, intracranial mass, hydrocephalus, territorial ischemia or abnormal extra-axial collection. Involutional changes with chronic microvascular ischemic disease. Mildly motion degraded exam. The calvarium is intact. (Right mastoid effusions. Fluid is also noted within the left middle ear cavity. Paranasal sinuses are generally clear. Unremarkable soft tissues and orbits. IMPRESSION: 1. No acute intracranial abnormality. 2. Bilateral mastoid effusions. ACT 112: Negative or not required by law. The above report was generated using voice recognition software. It may contain grammatical, syntax or spelling errors. Electronically signed by: Caleb Shearer M.D. 04/18/2022 8:44 AM Chest X-Ray 04/18/22 08:44 XR chest 1V portable HISTORY: 66 years-old Female confusion acutely altered mental status COMPARISON: 01/22/2022 TECHNIQUE: AP view of the chest FINDINGS: Cardiomediastinal and hilar silhouettes are within normal limits. No pneumothorax, pleural effusion, airspace consolidation or overt pulmonary edema. Surgical clips of the right upper quadrant abdomen. Degenerative changes of the shoulders and spine. IMPRESSION: No acute process. ACT 112: Negative or not required by law. The above report was generated using voice recognition software. It may contain grammatical, syntax or spelling errors. Electronically signed by: Caleb Shearer M.D. 04/18/2022 9:04 AM ECG Data Attestation: I personally reviewed and interpreted this ECG as follows: (Sinus rhythm with a rate of 77. Intervals within normal limits. No obvious acute ST elevation or evidence of ischemia. Compared to prior ECG from 01/22/2022, no significant change) MDM Narrative 66-year-old female with a history of 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 currently on transplant list presents with 4 to 5 days of increased confusion, gait instability, tremors, ? full-body tremors versus seizures, generalized weakness, and recent fall hitting her head. Her vital signs are reassuring. Overall she is generally weak with no focal deficits. She does have asterixis bilaterally. She is generally weak when leaning forward for lung exam. Patient also having what appears to be several spasms that began in the legs and then progressed up into the upper body, lasting about 10 seconds at a time. She has not postictal or demonstrating any overt evidence of seizure-like activity. I suspect this is related to the liver disease and possibly the ammonia. Her mucous membranes are dry so she was treated with 1 L of IV fluids. Labs demonstrate a stable anemia with a hemoglobin of 8.6. Ammonia is elevated at 123. She was given a dose of lactulose after discussing with the clinical pharmacist. Her creatinine is 1.3 which is somewhat elevated above her baseline. Magnesium is low at 1.2. This was repleted IV in the ED. Bilirubin is stable at 4.0. Calcium elevated 11.3, she is usually high. ECG is unremarkable, no significant change from prior. Troponin is negative. Head CT is negative for acute process. Patient remained hemodynamically stable. She continued with the body spasms and did not feel comfortable ambulating. Due to her confusion per her and gait instability in association with the elevated ammonia, did not feel comfortable sending the patient home. I discussed the case with Dr. Louis (hospitalist) who agrees to admit the patient for ongoing management. Impression Hyperammonemia, Acute confusion, Generalized weakness, Hypomagnesemia Discharge Plan Visit Data Chief Complaint: Dehydration Stated Complaint: CONVUSIONS,DEHYDRATED,REBOLLAR ED Provider: Narayan Villavicencio ED Midlevel Provider: Azam Gillis Discharge Problem: Hyperammonemia, Acute confusion, Generalized weakness, Hypomagnesemia Patient Disposition: Admitted As Inpatient Condition: Fair Prescriptions Prescriptions: No Action levothyroxine 112 mcg tablet 112 mcg PO Q2D Qty: 45 1RF Rx Instructions: 112 mcg PO every other day, alternate with 100 mcg. Take 1st thing in the morning on an empty stomach 30 min prior to any other oral intake. paroxetine HCl 20 mg tablet 80 mg PO QAM valacyclovir 1 gram tablet 1 mg PO UD PRN (Reason: Cold Sores) Label Comments: NOT CURRENTLY USING omeprazole 40 mg Capsule,Delayed Release(Dr/Ec) 40 mg PO QAM potassium chloride [Klor-Con M20] 20 mEq tablet,ER particles/crystals 20 meq PO BID Xifaxan 550 mg tablet 550 mg PO BID Rx Instructions: ordered 01/07/22 for 30 days chlorthalidone 25 mg tablet 25 mg PO QAM propranolol 80 mg capsule,extended release 24hr 80 mg PO QAM magnesium oxide 500 mg Tablet 500 mg PO QAM tramadol 50 mg tablet 50 mg PO DAILY PRN (Reason: Pain) lactulose 20 gram/30 mL solution 30 g PO TID Qty: 4050 0RF Women's 50 Plus Multivitamin 400 mcg-500 mg calcium-20 mcg Tablet 1 tab PO QAM Trulicity 3 mg 3 mg SC Q7D clotrimazole hydroxyzine HCl 25 mg 25 mg PO QPM paroxetine HCl 40 mg tablet 40 mg PO QAM rifaximin 550 mg 550 mg PO QID sulfamethoxazole PO QID levothyroxine 100 mcg tablet 100 mcg PO Q2D Rx Instructions: 100 mcg PO every other day; alternate with 112 mcg Referrals Referrals: Reza Cid MD [Physician] -
[2022-04-18] MEDS ORDERED: SODIUM CHLORIDE 0.9% 500 ML IV ONE (08:12)
[2022-04-18 08:17] LABS: Basophils # (auto) 0.04 K/uL (0-0.2); Basophils % (auto) 0.6 %; Eosinophils # (auto) 0.48 K/uL (0-0.50); Eosinophils % (auto) 7.2 %; Hematocrit (blood only) 26.3 % (37.0-47.0); Hemoglobin 8.6 g/dl (12.0-16.0); Immature Granulocytes # (auto) 0.01 K/uL (0.01-0.20); Immature Granulocytes % (auto) 0.2 %; Lymphocytes # (auto) 1.91 K/uL (1.2-3.4); Lymphocytes % (auto) 28.7 %; Mean Corpuscular Hemoglobin 25.3 pg (25.0-34.0); Mean Corpuscular Hgb Conc 32.7 g/dL (32.0-36.0); Mean Corpuscular Volume 77.4 fL (80.0-100.0); Mean Platelet Volume 9.3 fL (9.4-12.4); Monocytes # (auto) 1.45 K/uL (0.11-0.59); Monocytes % (auto) 21.8 %; Neutrophils # (auto) 2.76 K/uL (1.40-6.50); Neutrophils % (auto) 41.5 %; Platelet Count 173 K/uL (130-400); RDW Coefficient of Variation 18.3 % (11.5-14.5); RDW Standard Deviation 51.7 fL (36.4-46.3); White Blood Count 6.65 K/ul (4.8-10.8)
[2022-04-18 08:39] LABS: Albumin Globulin Ratio 1.7 (0.9-2); Albumin Level 3.4 gm/dl (3.4-5.0); BUN Creatinine Ratio 12.2 (10-20); Calcium 11.3 mg/dl (8.5-10.1); Creatinine Clr Calc Pharmacy 38.6 ml/min; Est GFR (African American) 48.4 ml/min; Est GFR (Non-African American) 41.7 ml/min; Magnesium 1.2 mg/dl (1.7-2.4); Potassium 3.5 mmol/L (3.5-5.1); Total Protein 5.4 gm/dl (6.0-8.3)
[2022-04-18 08:44] LABS: Troponin I High Sensitivity 9.2 pg/ml (0-14)
--- NOTE | 2022-04-18 08:46 | CT Scan Report ---
CT head/brain wo con CLINICAL HISTORY: 66 years-old Female with Increase confusion, fall several days ago. Acutely altere d mental status. Head trauma status post fall TECHNIQUE: Multiple axial CT images of the head were obtained without contrast. A dose lowering tech nique was utilized adhering to the principles of ALARA. CT DOSE: 614.27 mGy.cm COMPARISON: 12/22/2021 FINDINGS: No acute intracranial hemorrhage, midline shift, intracranial mass, hydrocephalus, territorial ischem ia or abnormal extra-axial collection. Involutional changes with chronic microvascular ischemic disea se. Mildly motion degraded exam. The calvarium is intact. (Right mastoid effusions. Fluid is also noted within the left middle ear ca vity. Paranasal sinuses are generally clear. Unremarkable soft tissues and orbits. IMPRESSION: 1. No acute intracranial abnormality. 2. Bilateral mastoid effusions. ACT 112: Negative or not required by law. The above report was generated using voice recognition software. It may contain grammatical, syntax o r spelling errors. Electronically signed by: Caleb Shearer M.D. 04/18/2022 8:44 AM
--- NOTE | 2022-04-18 09:06 | XRay Report ---
XR chest 1V portable HISTORY: 66 years-old Female confusion acutely altered mental status COMPARISON: 01/22/2022 TECHNIQUE: AP view of the chest FINDINGS: Cardiomediastinal and hilar silhouettes are within normal limits. No pneumothorax, pleural effusion, airspace consolidation or overt pulmonary edema. Surgical clips of the right upper quadrant abdomen. Degenerative changes of the shoulders and spine. IMPRESSION: No acute process. ACT 112: Negative or not required by law. The above report was generated using voice recognition software. It may contain grammatical, syntax o r spelling errors. Electronically signed by: Caleb Shearer M.D. 04/18/2022 9:04 AM
[2022-04-18] MEDS ORDERED: LACTULOSE SYRUP 30 GM/45 ML UDP PO STA ×2 (09:08→09:20)
[2022-04-18] MEDS: MAGNESIUM SULFATE / D5W 1 GM/100 ML BAG IV SCH ×2 (09:09→09:36)
[2022-04-18] MEDS ORDERED: LORazepam 2 MG/1 ML VIAL IV STA (09:58)
--- NOTE | 2022-04-18 10:14 | History & Physical Report ---
Date of Service April 18, 2022 Assessment & Plan (1) Hyperammonemia: Plan: - Ammonia 123 on admit, trend - Complains of weakness - Secondary to liver cirrhosis, portal hypertension. - CXR: No acute process - Continue Xifaxan, lactulose 30 g 3 times daily titrate to at least 34 bowel movements daily. - Avoid NSAIDs, avoid alcohol. - May use Tylenol with 2 g daily limit. (2) Hepatic encephalopathy: Plan: 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: - Child Quiles class B. MELD 14, 6% 3-month mortality -Patient recently accepted for transplant, has a living donor who is pending intake process through [facility]. No timeline yet. - Update called to [facility] and message left with stem processing machine operator to update hepatology team the patient was currently admitted Previously child Quiles class B/MELD 14 on admission. Repeat pending INR. Bili is increased to 4.0 from prior 3.8 Does not appear hemodynamically decompensated Sodium 139 (3) Diabetes mellitus, type 2: Plan: Diabetes mellitus, type 2: -Hold home dulaglutide. Takes weekly. Will defer basal, and follow with conservative sliding scale. BSG well-controlled on admission -BSG check AC at bedtime Goal BSG 307331 conservative CF/ratio of 60/25 (4) Hypothyroidism: Plan: Hypothyroidism: -TSH normal on admission Continue Synthroid daily alternating between 112 and 110 mcg (5) Portal hypertension: Plan: Portal hypertension: - EGD 05/2020: Grade 1 esophageal varices. - Continue propranolol 20 mg 3 times daily -Continue Protonix 40 mg daily while inpatient Patient denies melena, hematochezia, hematemesis. No recent bleeding (6) LISA (acute kidney injury): Plan: LISA 2/2 prerenal volume contraction Patient with 10-12 bowel movements per day, clinically is volume contracted with elevated creatinine of 1.31, elevated calcium, mildly elevated lipase, and clinically appears dry Received 1.5 L saline on admission We will continue Normosol 80 cc/h, trend electrolytes Renally dose medications (7) 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: Plan: - As noted (8) Hypomagnesemia: Plan: Hypomagnesemia IV magnesium given on admission Slow-Mag deferred due to history of hypercalcemia Continue oral magnesium repletion, IV supplementation as needed (9) Moeller esophagus: Plan: Moeller's esophagus with esophagitis: - Continue PPI. (10) Anxiety and depression: Plan: Anxiety/depression -Continue home paroxetine (11) Hypokalemia: Plan: History of hypokalemia Normal on admission Trend daily Plan -Admit to telemetry given severe hypomagnesemia - SCDs Heparin for DVT prophylaxis due to LISA Full code History of Present Illness Primary Care Provider: Lakisha Arriaga Shaking hands 'whole body locked up yesterday.' Since being in the hospital in the last few hours 6-7 episodes of convulsions and tremors RUQ pain [facility], no time frame, accepted on the transplant list but is on followup trip #6 and meets the minimum threshold for surgery and has a living donor but does not have procedure scheduled yet. Donor is in the middle of the testing process. Taking Augmentin for a sinus infection 1 dozen BM yesterday. has been giving lactulose regularly Xifaxin twice once Denies fever, chills, sweats, lightheadedness, dizziness, chest pain, chest pressure related belly feels a little full but not significantly different from normal. Denies dysuria. Endorses more fatigue and intermittent confusion in the last 2 days, and has had muscle spasm and tightness. is with patient at bedside who reports that he manages patient medications, has been giving these faithfully and she has not missed any doses of her medicines. No star that she has many bowel movements daily, 8-12 with the lactulose and that this has not changed recently. No current tobacco/alcohol use. Medical history/allergies reviewed. Patient previously has been DNR/DNI. At bedside patient reports that she would like to be full code, and is hopeful of the progression onto the transplant list with [facility]. CODE STATUS updated on admission Allergies Allergy/AdvReac Type Severity Reaction Status Date / Time bee venom protein (honey bee) Allergy Severe Anaphylaxis Verified 03/06/22 07:58 Influenza Virus Vaccines Allergy Severe Anaphylaxis Verified 03/06/22 07:58 tetracycline AdvReac Severe Severe Verified 03/06/22 07:58 stomach pains Home Medications Medication Instructions Recorded Confirmed Type paroxetine HCl 20 mg tablet 40 mg PO QAM 04/17/19 03/06/22 History valacyclovir 1 gram tablet 1 mg PO UD PRN Cold Sores 04/16/21 03/02/22 History gjlmbjtd-jmf-jgnad ac 400 1 tab PO QAM 07/15/21 03/06/22 History mcg-calcium carb 500 mg-vit K1 20 mcg tablet (Women's 50 Plus Multivitamin) dulaglutide 3 mg/0.5 mL 3 mg subcut WK 09/09/21 03/06/22 History subcutaneous pen injector omeprazole 40 mg capsule,delayed 40 mg PO QAM 11/04/21 03/06/22 History release potassium chloride 20 mEq 20 meq PO BID 12/22/21 03/06/22 History tablet,extended release(part/cryst) (Klor-Con M) chlorthalidone 25 mg tablet 25 mg PO QAM 01/22/22 03/06/22 History lorazepam 1 mg tablet 1 mg PO TID PRN Anxiety 01/22/22 03/02/22 History magnesium oxide 500 mg tablet 500 mg PO QAM 01/22/22 03/06/22 History nystatin 100,000 unit/gram topical 1 applic topical TID 01/22/22 03/02/22 History powder potassium bicarbonate-citric acid 25 meq PO TID 01/22/22 03/06/22 History 25 mEq effervescent tablet (Klor-Con/EF) propranolol 80 mg capsule,24 80 mg PO QAM 01/22/22 03/06/22 History hr,extended release rifaximin 550 mg tablet (Xifaxan) 550 mg PO BID 01/22/22 03/02/22 History cefdinir 300 mg capsule 300 mg PO BID #6 caps 01/23/22 03/06/22 Rx lactulose 20 gram/30 mL oral 30 g (45 mL) PO TID #4,050 mL 01/23/22 03/06/22 Rx solution tramadol 50 mg tablet 50 mg PO DAILY PRN Pain 01/23/22 03/06/22 History levothyroxine 100 mcg tablet 100 mcg PO Q2D #45 tabs 02/10/22 03/06/22 Rx levothyroxine 112 mcg tablet 112 mcg PO Q2D #45 tabs 02/24/22 03/06/22 Rx Past Med/Surg History Medical History Anemia HX Anxiety and depression Arthritis Moeller's esophagus with esophagitis Chronic diarrhea SOMETIMES - when takes lactulose 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 Depression Diabetes mellitus, type 2 Diverticulosis GERD (gastroesophageal reflux disease) Heel spur B/L feet Hiatal hernia History of colon polyps BENIGN History of fractured vertebra CURRENT, HX FALL JULY 2021 - FELL OF THE TOILET - NO INTERVENTION AT PRESENT/ DR REYES UPCOMING BRONWYN SEPTEMBER 12 FOR TO DISCUSS TX OPTIONS - POTENTIAL BACK BRACE History of kidney stones Hyperlipidemia Hypertension NO CURRENT MEDS Hypothyroidism 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) Seasonal allergies Spleen enlarged MONITORS - PT REPORTS FROM THE REBOLLAR Stucco keratoses Temporomandibular joint disorder NO LOCKING/WEARS 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 Thyroid disease Surgical History H/O thumb surgery RT/LEFT JOINT REPAIR H/O total hysterectomy History of appendectomy History of arthroscopy of knee Left Knee - meniscus/cartilage History of colonoscopy History of cystoscopy History of esophagogastroduodenoscopy (EGD) History of tonsillectomy and adenoidectomy History of tooth extraction Hx of cholecystectomy Family History Brother Coronary heart disease Heart disease Mother Family history of diabetes mellitus Hypertension Heart disease Sister Family history of diabetes mellitus Son Family history of diabetes mellitus Father Family hx of colon cancer Hearing loss Hypertension Cancer Heart disease Grandfather (Maternal) Family hx of colon cancer Other No family history of adverse response to anesthesia No family history of bleeding disorder Social History Smoking Status: Never smoker Second Hand Exposure: No; Hx Alcohol Use: No Hx Substance Use: No Preferred Language: Tajik Communication Ability: Effective Press Room Supervisor Required: No Beliefs That Will Affect Care: None marital status: Current Living Situation: Spouse Current Living Situation Comment: and sister current occupational status: employed and retired How many Children do You have: 0 Feels Safe at Home: Yes Assistive Devices: Glasses Review of Systems Review of Systems: All systems reviewed & are unremarkable except as noted in HPI & below Physical Exam Physical Exam: General: Chronically ill-appearing, frail. Nontoxic. Oriented to name, place, and year HEENT: Atraumatic, normocephalic. Scleral icterus is present. Pupils are equal and reactive to light. Pulm: CTAB A&P. -wheezes, -rales, -rhonchi. Symmetrical chest rise. No increase in work of breathing. No respiratory distress. Cardiac: RRR, -mrg. Radial pulses intact and symmetrical. Abdominal: Nontender, nondistended, soft. BS present. Extremities: Warm, dry. Skin is with mild jaundice. Elbow flexion/extension, bail bondsman strength, wrist flexion/extension, ankle flexion/extension are 5/5. Sensation is intact in upper and lower extremities to soft touch without asymmetry. Patient does endorse stiffness during exam, but is able to actively flex/extend extremities as noted. + [employer]. Results & Data Results & Data ([facility]) Vital Signs (Past 12 Hours) Vital Signs Temp Pulse Pulse Resp BP BP Pulse Ox 04/18/22 08:12 04/18/22 08:01 81 16 135/62 99 04/18/22 07:38 36.5 C 78 20 88/62 L 98 O2 Del Method 04/18/22 08:12 Room Air 04/18/22 08:01 Room Air 04/18/22 07:38 Room Air PG Care Time/CCT Total # of Minutes Spent Total Time Spent with Patient: Total time spent is greater than 50% in coordination of care (as documented) at patient's floor/unit and/or counseling patient: Coding Level of Care Code 78822 INT INP/OBS CARE 2/55MIN Diagnoses Hyperammonemia E72.20 Hepatic encephalopathy K72.90 Diabetes mellitus, type 2 E11.9 Hypothyroidism E03.9 Portal hypertension K76.6 LISA (acute kidney injury) N17.9 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 Hypomagnesemia E83.42 Moeller esophagus K22.70 Anxiety and depression F41.9; F32.9 Hypokalemia E87.6
[2022-04-18 12:06] LABS: INR 1.3 (0.9-1.1); Prothrombin Time 14.1 Seconds (9.0-12.0)
--- NOTE | 2022-04-18 13:18 | Electrocardiogram Report ---
Test Reason : Blood Pressure : / mmHG Vent. Rate : 077 BPM Atrial Rate : 077 BPM P-R Int : 132 ms QRS Dur : 082 ms QT Int : 412 ms P-R-T Axes : 018 003 012 degrees QTc Int : 466 ms Poor data quality, interpretation may be adversely affected Normal sinus rhythm Nonspecific ST and T wave abnormality Abnormal ECG When compared with ECG of 22-JAN-2022 10:20, No significant change was found Confirmed by Reza Webster ([id number]) on 04/18/2022 1:17:44 PM Referred By: REFERRED SELF Confirmed By:Reza Webster
[2022-04-18] MEDS ORDERED: DEXTROSE 50% 50 ML SYRINGE IV PRN (15:31)
[2022-04-18] MEDS ORDERED: GLUCAGON FOR INJ 1 MG VIAL SQ PRN (15:31)
[2022-04-18] MEDS ORDERED: CARBOHYDRATES FOR HYPOGLYCEMIA PO PRN (15:31)
[2022-04-18] MEDS ORDERED: LORazepam 2 MG/1 ML VIAL IV PRN (15:31)
[2022-04-18] MEDS ORDERED: GLUCOSE 40% GEL 15 GM TUBE PO PRN (15:31)
[2022-04-18] MEDS ORDERED: GLUCOSE 10 TAB/TUBE PO PRN (15:31)
[2022-04-18] MEDS: INSULIN ASPART PER UNIT SC SCH ×2 (17:57→21:04)
[2022-04-18] MEDS: LACTULOSE SYRUP 30 GM/45 ML UDP PO SCH ×2 (17:57→23:13)
[2022-04-18] MEDS: LEVOTHYROXINE SODIUM 100 MCG TABLET PO SCH (18:00)
[2022-04-18] MEDS: LORazepam 1 MG TAB PO PRN (19:28)
[2022-04-18] MEDS: MAGNESIUM OXIDE 400 MG TAB PO SCH (21:10)
[2022-04-18] MEDS: HEPARIN SOD 5,000 UNIT/0.5 ML VIAL SQ SCH (21:10)
[2022-04-18] MEDS: rifAXIMin 550 MG TABLET PO SCH (21:10)
[2022-04-19] MEDS: LEVOTHYROXINE SODIUM 112 MCG TABLET PO SCH (05:45)
[2022-04-19 06:46] LABS: Basophils # (auto) 0.03 K/uL (0-0.2); Basophils % (auto) 0.6 %; Eosinophils # (auto) 0.37 K/uL (0-0.50); Eosinophils % (auto) 7.8 %; Hemoglobin 7.8 g/dl (12.0-16.0); Immature Granulocytes # (auto) 0.01 K/uL (0.01-0.20); Immature Granulocytes % (auto) 0.2 %; Lymphocytes # (auto) 1.57 K/uL (1.2-3.4); Lymphocytes % (auto) 33.1 %; Mean Corpuscular Hemoglobin 25.2 pg (25.0-34.0); Mean Corpuscular Hgb Conc 32.5 g/dL (32.0-36.0); Mean Corpuscular Volume 77.4 fL (80.0-100.0); Mean Platelet Volume 9.6 fL (9.4-12.4); Monocytes % (auto) 21.1 %; Neutrophils # (auto) 1.77 K/uL (1.40-6.50); Neutrophils % (auto) 37.2 %; Platelet Count 135 K/uL (130-400); RDW Coefficient of Variation 18.3 % (11.5-14.5); RDW Standard Deviation 51.4 fL (36.4-46.3); White Blood Count 4.75 K/ul (4.8-10.8)
[2022-04-19 06:48] LABS: Albumin Globulin Ratio 1.6 (0.9-2); Albumin Level 3.1 gm/dl (3.4-5.0); BUN Creatinine Ratio 11.4 (10-20); Bilirubin,Total 3.7 mg/dl (0.2-1.0); Calcium 10.6 mg/dl (8.5-10.1); Creatinine Clr Calc Pharmacy 37.4 ml/min; Est GFR (African American) 47.9 ml/min; Est GFR (Non-African American) 41.3 ml/min; Globulin 1.9 gm/dl (2.5-4.0); Magnesium 1.5 mg/dl (1.7-2.4); Potassium 3.4 mmol/L (3.5-5.1)
[2022-04-19] MEDS: HEPARIN SOD 5,000 UNIT/0.5 ML VIAL SQ SCH ×2 (08:01→20:27)
[2022-04-19] MEDS: CHLORTHALIDONE 25 MG TAB PO SCH (08:01)
[2022-04-19] MEDS: MAGNESIUM OXIDE 400 MG TAB PO SCH ×2 (08:01→20:29)
[2022-04-19] MEDS: LACTULOSE SYRUP 30 GM/45 ML UDP PO SCH ×3 (08:01→20:29)
[2022-04-19] MEDS: PARoxetine HCL 20 MG TAB PO SCH (08:01)
[2022-04-19] MEDS: rifAXIMin 550 MG TABLET PO SCH ×2 (08:02→20:29)
[2022-04-19] MEDS: PROPRANOLOL HCL LA 80 MG CAPCR PO SCH (08:02)
[2022-04-19 08:03] LABS: Acanthocytes 2+; Echinocytes 2+; Polychromasia 1+; Tear Drop Cells 1+
[2022-04-19] MEDS: INSULIN ASPART PER UNIT SC SCH ×4 (08:03→20:28)
[2022-04-19] MEDS: LORazepam 1 MG TAB PO PRN ×3 (08:11→20:42)
--- NOTE | 2022-04-19 16:46 | Hospitalist Progress Note ---
Date of Service April 19, 2022 Assessment & Plan (1) Hyperammonemia: Plan: - Ammonia 123 on admit, trend - Complains of weakness - Secondary to liver cirrhosis, portal hypertension. - CXR: No acute process - Continue Xifaxan, lactulose 30 g 3 times daily titrate to at least 34 bowel movements daily. - Avoid NSAIDs, avoid alcohol. - May use Tylenol with 2 g daily limit. 04/19-had a long discussion with patient and her at bedside Patient follows with hepatology team for liver transplant Presently following with [facility] nurse practitioner locally for GI Continue lactulose to reduce ammonia levels continue Xifaxan Check LFTs in a.m. and Tylenol with caution GI input (2) Hepatic encephalopathy: Plan: 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: - Child Quiles class B. MELD 14, 6% 3-month mortality -Patient recently accepted for transplant, has a living donor who is pending intake process through [facility]. No timeline yet. - Update called to [facility] and message left with weekend receptionist to update hepatology team the patient was currently admitted Previously child Quiles class B/MELD 14 on admission. Repeat pending INR. Bili is increased to 4.0 from prior 3.8 Does not appear hemodynamically decompensated Sodium 139 (3) Diabetes mellitus, type 2: Plan: Diabetes mellitus, type 2: -Hold home dulaglutide. Takes weekly. Will defer basal, and follow with conservative sliding scale. BSG well-controlled on admission -BSG check AC at bedtime Goal BSG [id number] conservative CF/ratio of 60/25 (4) Hypothyroidism: Plan: Hypothyroidism: -TSH normal on admission Continue Synthroid daily alternating between 112 and 110 mcg (5) Portal hypertension: Plan: Portal hypertension: - EGD 05/2020: Grade 1 esophageal varices. - Continue propranolol 20 mg 3 times daily -Continue Protonix 40 mg daily while inpatient Patient denies melena, hematochezia, hematemesis. No recent bleeding (6) LISA (acute kidney injury): Plan: LISA 2/2 prerenal volume contraction Patient with 10-12 bowel movements per day, clinically is volume contracted with elevated creatinine of 1.31, elevated calcium, mildly elevated lipase, and clinically appears dry Received 1.5 L saline on admission We will continue Normosol 80 cc/h, trend electrolytes Renally dose medications (7) 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: Plan: - As noted (8) Hypomagnesemia: Plan: Hypomagnesemia IV magnesium given on admission Slow-Mag deferred due to history of hypercalcemia Continue oral magnesium repletion, IV supplementation as needed (9) Moeller esophagus: Plan: Moeller's esophagus with esophagitis: - Continue PPI. (10) Anxiety and depression: Plan: Anxiety/depression -Continue home paroxetine (11) Hypokalemia: Plan: History of hypokalemia Normal on admission Trend daily Plan -Admit to telemetry given severe hypomagnesemia - SCDs Heparin for DVT prophylaxis due to LISA Full code Admission and Anticipated Discharge Date Admission Date: April 18, 2022 Subjective Patient seen along with RN at the at bedside Patient having some episodes of tremors and intermittent confusion Otherwise no nausea vomiting reported Patient presently on lactulose and having bowel movements Physical Exam Physical Exam: Head and ENT no thyroid enlargement trachea midline Cardiovascular S1-S2 are normal no S3 Lungs bilateral air entry fair no wheezing Abdomen soft mild distention positive bowel sounds no rebound tenderness Extremity shows trace edema Neurologically no focal deficits intermittent tremors noted Skin shows no rash Results & Data Results & Data ([facility]) Vital Signs (Past 12 Hours) Vital Signs Temp Pulse Pulse Pulse Resp BP Pulse Ox 04/19/22 15:55 77 04/19/22 15:08 36.4 C L 78 18 120/56 L 95 04/19/22 12:34 36.7 C 78 17 134/62 93 04/19/22 07:49 75 04/19/22 07:22 36.7 C 78 17 112/64 93 O2 Del Method 04/19/22 15:55 04/19/22 15:08 Room Air 04/19/22 12:34 Room Air 04/19/22 07:49 04/19/22 07:22 Room Air Laboratory Results Short CBC 04/19/22 Range/Units 05:41 WBC 4.75 L (4.8-10.8) K/ul Hgb 7.8 L (12.0-16.0) g/dl Hct 24.0 L (37.0-47.0) % Plt Count 135 (130-400) K/uL BMP 04/19/22 05:41 Sodium 138 Potassium 3.4 L Chloride 107 Carbon Dioxide 28 BUN 15 Creatinine 1.32 H Glucose 120 H Calcium 10.6 H Liver Function 04/19/22 Range/Units 05:41 Total Bilirubin 3.7 H (0.2-1.0) mg/dl AST 39 (13-39) U/L ALT 20 (7-52) U/L Alkaline Phosphatase 175 H (34-104) U/L Albumin 3.1 L (3.4-5.0) gm/dl PG Care Time/CCT Total # of Minutes Spent Total Time Spent with Patient: Total time spent is greater than 50% in coordination of care (as documented) at patient's floor/unit and/or counseling patient: Coding Level of Care Code 69375 SUB INP/OBS CARE 2/35MIN Diagnoses Hyperammonemia E72.20 Hepatic encephalopathy K72.90 Diabetes mellitus, type 2 E11.9 Hypothyroidism E03.9 Portal hypertension K76.6 LISA (acute kidney injury) N17.9 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 Hypomagnesemia E83.42 Moeller esophagus K22.70 Anxiety and depression F41.9; F32.9 Hypokalemia E87.6
[2022-04-20] MEDS: LEVOTHYROXINE SODIUM 100 MCG TABLET PO SCH (05:14)
[2022-04-20 06:25] LABS: Hematocrit (blood only) 23.8 % (37.0-47.0); Hemoglobin 7.9 g/dl (12.0-16.0); Mean Corpuscular Hemoglobin 25.8 pg (25.0-34.0); Mean Corpuscular Hgb Conc 33.2 g/dL (32.0-36.0); Mean Corpuscular Volume 77.8 fL (80.0-100.0); Platelet Count 136 K/uL (130-400); RDW Standard Deviation 50.9 fL (36.4-46.3); Red Blood Count 3.06 M/uL (4.20-5.40); White Blood Count 3.88 K/ul (4.8-10.8)
[2022-04-20 06:48] LABS: Albumin Globulin Ratio 1.7 (0.9-2); Albumin Level 3.1 gm/dl (3.4-5.0); BUN Creatinine Ratio 12.1 (10-20); Bilirubin,Total 4.4 mg/dl (0.2-1.0); Calcium 10.1 mg/dl (8.5-10.1); Creatinine Clr Calc Pharmacy 39.9 ml/min; Est GFR (African American) 51.7 ml/min; Est GFR (Non-African American) 44.6 ml/min; Globulin 1.8 gm/dl (2.5-4.0); Potassium 3.3 mmol/L (3.5-5.1); Total Protein 4.9 gm/dl (6.0-8.3)
[2022-04-20] MEDS: INSULIN ASPART PER UNIT SC SCH ×4 (08:05→20:58)
[2022-04-20] MEDS: HEPARIN SOD 5,000 UNIT/0.5 ML VIAL SQ SCH ×2 (08:11→20:39)
[2022-04-20] MEDS: CHLORTHALIDONE 25 MG TAB PO SCH (08:11)
[2022-04-20] MEDS: PROPRANOLOL HCL LA 80 MG CAPCR PO SCH (08:11)
[2022-04-20] MEDS: MAGNESIUM OXIDE 400 MG TAB PO SCH ×2 (08:12→20:40)
[2022-04-20] MEDS: PARoxetine HCL 20 MG TAB PO SCH (08:12)
[2022-04-20] MEDS: rifAXIMin 550 MG TABLET PO SCH ×2 (08:12→20:41)
[2022-04-20] MEDS: LACTULOSE SYRUP 30 GM/45 ML UDP PO SCH ×3 (08:12→20:38)
[2022-04-20] MEDS ORDERED: POTASSIUM CHLORIDE CRTAB 20 MEQ TABCR PO STA (08:17)
[2022-04-20 09:25] LABS: Reticulocyte % 2.5 % (0.5-2.0); Reticulocytes # 0.08 10^6/uL (0.02-0.10)
--- NOTE | 2022-04-20 09:25 | Gastrointestinal Consultation ---
Date of Consultation April 20, 2022 Assessment & Plan (1) Hyperammonemia: (2) Hepatic encephalopathy: (3) 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: Plan Patient is a 66 y.o. female with a history of REBOLLAR cirrhosis admitted with acute confusion and HE as well as tremors. Acute decompensation possibly related to antibiotics or medication nonadherence as her ammonia level has normalized within one day of admission. 1. Continue Lactulose 30 g TID. Titrate goal of 3-4 bms daily. 2. Continue Xifaxan 550 mg BID. 3. Supportive care. 4. Follow up with primary GI and transplant hepatology upon discharge. Thank you for allowing us to participate in the care of this patient. If you have any questions or concerns, please do not hesitate to contact us. Supervising Physician Co-Signing Physician Notes Agree with NAHEED Barrientos as above Abd: Soft, NT, ND, +BS Continue current therapy and supportive care [facility] will resume care tomorrow History of Present Illness Reason for Consultation: HE, hyperammonemia Requesting Physician: Dr. Piedra Attending Physician: Elijah Cochran MD History of Present Illness Patient is a 66 y.o. female with a history of REBOLLAR cirrhosis followed by [facility] admitted for tremors and hepatic encephalopathy. On arrival, her ammonia level was noted to be 123. She has been started on Lactulose 30 g TID and Xifaxan 550 mg BID. Today, her ammonia level is 50. Prior to admission, she reports intermittent episodes of confusion although she reports she is adherent with her HE medications. In fact, she states she has 8-12 bms daily. She currently denies any confusion, abdominal pain, lower extremity edema or fatigue. Continues with symptoms of tremors. No reported ETOH use. Is awaiting a living donor liver transplant at [facility]. The only precipitating factors prior to admission was that she was taking oral antibiotics for a sinus infection. Allergies Allergy/AdvReac Type Severity Reaction Status Date / Time bee venom protein (honey bee) Allergy Severe Anaphylaxis Verified 03/06/22 07:58 Influenza Virus Vaccines Allergy Severe Anaphylaxis Verified 03/06/22 07:58 tetracycline AdvReac Severe Severe Verified 03/06/22 07:58 stomach pains Home Medications Medication Instructions Recorded Confirmed Type paroxetine HCl 20 mg tablet 80 mg PO QAM 04/17/19 04/18/22 History valacyclovir 1 gram tablet 1 mg PO UD PRN Cold Sores 04/16/21 04/18/22 History bdvbucrs-lsm-xgdfb ac 400 1 tab PO QAM 07/15/21 04/18/22 History mcg-calcium carb 500 mg-vit K1 20 mcg tablet (Women's 50 Plus Multivitamin) omeprazole 40 mg capsule,delayed 40 mg PO QAM 11/04/21 04/18/22 History release potassium chloride 20 mEq 20 meq PO BID 12/22/21 04/18/22 History tablet,extended release(part/cryst) (Klor-Con M) chlorthalidone 25 mg tablet 25 mg PO QAM 01/22/22 04/18/22 History magnesium oxide 500 mg tablet 500 mg PO QAM 01/22/22 04/18/22 History propranolol 80 mg capsule,24 80 mg PO QAM 01/22/22 04/18/22 History hr,extended release rifaximin 550 mg tablet (Xifaxan) 550 mg PO BID 01/22/22 04/18/22 History lactulose 20 gram/30 mL oral 30 g (45 mL) PO TID #4,050 mL 01/23/22 04/18/22 Rx solution tramadol 50 mg tablet 50 mg PO DAILY PRN Pain 01/23/22 04/18/22 History levothyroxine 112 mcg tablet 112 mcg PO Q2D #45 tabs 02/24/22 04/18/22 Rx Trulicity 3 mg SC Q7D 04/18/22 04/18/22 History clotrimazole 04/18/22 History hydroxyzine HCl 25 mg PO QPM 04/18/22 04/18/22 History levothyroxine 100 mcg tablet 100 mcg PO Q2D 04/18/22 04/18/22 History paroxetine HCl 40 mg PO QAM 04/18/22 04/18/22 History rifaximin 550 mg PO QID 04/18/22 04/18/22 History sulfamethoxazole PO QID sinus infection 04/18/22 History Patient History Medical History Anemia HX Anxiety and depression Arthritis Moeller's esophagus with esophagitis Chronic diarrhea SOMETIMES - when takes lactulose 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 Depression Diabetes mellitus, type 2 Diverticulosis GERD (gastroesophageal reflux disease) Heel spur B/L feet Hiatal hernia History of colon polyps BENIGN History of fractured vertebra CURRENT, HX FALL JULY 2021 - FELL OF THE TOILET - NO INTERVENTION AT PRESENT/ [facility] FOR TO DISCUSS TX OPTIONS - POTENTIAL BACK BRACE History of kidney stones Hyperlipidemia Hypertension NO CURRENT MEDS Hypothyroidism 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) Seasonal allergies Spleen enlarged MONITORS - PT REPORTS FROM THE REBOLLAR Stucco keratoses Temporomandibular joint disorder NO LOCKING/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 Thyroid disease Surgical History H/O thumb surgery RT/LEFT JOINT REPAIR H/O total hysterectomy History of appendectomy History of arthroscopy of knee Left Knee - meniscus/cartilage History of colonoscopy History of cystoscopy History of esophagogastroduodenoscopy (EGD) History of tonsillectomy and adenoidectomy History of tooth extraction Hx of cholecystectomy Family History Brother Coronary heart disease Heart disease Mother Family history of diabetes mellitus Hypertension Heart disease Sister Family history of diabetes mellitus Son Family history of diabetes mellitus Father Family hx of colon cancer Hearing loss Hypertension Cancer Heart disease Grandfather (Maternal) Family hx of colon cancer Other No family history of adverse response to anesthesia No family history of bleeding disorder Social History Smoking Status: Never smoker Second Hand Exposure: No; Do You Dip or Chew Tobacco: No; Tobacco Cessation Education Requested by Patient: No Hx Alcohol Use: No Hx Substance Use: No Preferred Language: Iraqi Communication Ability: Effective 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 Required: No Beliefs That Will Affect Care: None marital status: Current Living Situation: Spouse Current Living Situation Comment: and sister current occupational status: employed and retired How many Children do You have: 0 Other Information That Helps Us Care for You: No Feels Safe at Home: Yes Safety Concerns: Feels Safe At This Time Assistive Devices: Glasses, Walker and Wheelchair Review of Systems Review of Systems: All systems reviewed & are unremarkable except as noted in HPI & below Physical Exam Constitutional: WD/WN, vitals as above Eyes: + scleral abnormality (bilateral scleral icterus) and EOM intact bilaterally Neck: normal visual inspection Respiratory: normal respiratory effort, lungs clear to auscultation Cardiovascular: Rate/Rhythm: regular rate and regular rhythm Gastrointestinal (Abdomen): Inspection/Auscultation: abdomen normal to inspection and normal bowel sounds Percussion/Palpation: abdomen soft; abdomen nontender Musculoskeletal: Extremities: extremities normal to inspection Skin: + jaundice Psychiatric: A+Ox3, euthymic affect Results & Data ([facility]) Vital Signs (Past 12 Hours) Vital Signs Temp Pulse Pulse Resp BP BP Pulse Ox 04/20/22 08:28 04/20/22 07:16 36.5 C 79 18 123/71 97 04/20/22 07:16 75 04/20/22 03:00 36.6 C 75 18 115/63 95 04/19/22 23:49 79 04/19/22 22:53 36.6 C 79 18 113/60 92 O2 Del Method 04/20/22 08:28 Room Air 04/20/22 07:16 Room Air 04/20/22 07:16 04/20/22 03:00 Room Air 04/19/22 23:49 04/19/22 22:53 Room Air Diagnostic Findings Laboratory Results WBC 3.88 K/ul (4.8-10.8) L 04/20/22 05:58 RBC 3.06 M/uL (4.20-5.40) L 04/20/22 05:58 Hgb 7.9 g/dl (12.0-16.0) L 04/20/22 05:58 Hct 23.8 % (37.0-47.0) L 04/20/22 05:58 MCV 77.8 fL (80.0-100.0) L 04/20/22 05:58 MCH 25.8 pg (25.0-34.0) 04/20/22 05:58 MCHC 33.2 g/dL (32.0-36.0) 04/20/22 05:58 RDW Std Deviation 50.9 fL (36.4-46.3) H 04/20/22 05:58 RDW Coeff of Charlee 18.0 % (11.5-14.5) H 04/20/22 05:58 Plt Count 136 K/uL (130-400) 04/20/22 05:58 MPV 9.0 fL (9.4-12.4) L 04/20/22 05:58 Immature Gran % (Auto) 0.2 % 04/19/22 05:41 Neut % (Auto) 37.2 % 04/19/22 05:41 Lymph % (Auto) 33.1 % 04/19/22 05:41 Meade % (Auto) 21.1 % 04/19/22 05:41 Eos % (Auto) 7.8 % 04/19/22 05:41 Baso % (Auto) 0.6 % 04/19/22 05:41 Reticulocyte % (Auto) 2.5 % (0.5-2.0) H 04/20/22 05:58 Neut # (Auto) 1.77 K/uL (1.40-6.50) 04/19/22 05:41 Lymph # (Auto) 1.57 K/uL (1.2-3.4) 04/19/22 05:41 Meade # (Auto) 1.00 K/uL (0.11-0.59) H 04/19/22 05:41 Eos # (Auto) 0.37 K/uL (0-0.50) 04/19/22 05:41 Baso # (Auto) 0.03 K/uL (0-0.2) 04/19/22 05:41 Reticulocyte # 0.08 10^6/uL (0.02-0.10) 04/20/22 05:58 Immature Gran # (Auto) 0.01 K/uL (0.01-0.20) 04/19/22 05:41 Polychromasia 1+ 04/19/22 05:41 Tear Drop Cells 1+ 04/19/22 05:41 Echinocytes 2+ 04/19/22 05:41 Acanthocytes (Spur) 2+ 04/19/22 05:41 PT 14.1 Seconds (9.0-12.0) H 04/18/22 07:56 INR 1.3 (0.9-1.1) H 04/18/22 07:56 Sodium 138 mmol/L (136-145) 04/20/22 05:58 Potassium 3.3 mmol/L (3.5-5.1) L 04/20/22 05:58 Chloride 106 mmol/L (98-107) 04/20/22 05:58 Carbon Dioxide 29 mmol/L (21-32) 04/20/22 05:58 Anion Gap 3 (3-11) 04/20/22 05:58 BUN 15 mg/dl (6-23) 04/20/22 05:58 Creatinine 1.24 mg/dl (0.6-1.2) H 04/20/22 05:58 Est Cr Clr Drug Dosing 39.9 ml/min 04/20/22 05:58 Est GFR ( Amer) 51.7 ml/min 04/20/22 05:58 Est GFR (Non-Af Amer) 44.6 ml/min 04/20/22 05:58 BUN/Creatinine Ratio 12.1 (10-20) 04/20/22 05:58 Glucose 131 mg/dl (70-99(Fasting)) H 04/20/22 05:58 POC Glucose 137 mg/dl (70-99) H 04/20/22 07:36 Calcium 10.1 mg/dl (8.5-10.1) 04/20/22 05:58 Magnesium 1.5 mg/dl (1.7-2.4) L 04/19/22 05:41 Total Bilirubin 4.4 mg/dl (0.2-1.0) H 04/20/22 05:58 AST 35 U/L (13-39) 04/20/22 05:58 ALT 20 U/L (7-52) 04/20/22 05:58 Alkaline Phosphatase 155 U/L (34-104) H 04/20/22 05:58 Ammonia 50.0 umol/L (18-72) 04/20/22 05:58 Troponin I High Sens 9.2 pg/ml (0-14) 04/18/22 07:56 Total Protein 4.9 gm/dl (6.0-8.3) L 04/20/22 05:58 Albumin 3.1 gm/dl (3.4-5.0) L 04/20/22 05:58 Globulin 1.8 gm/dl (2.5-4.0) L 04/20/22 05:58 Albumin/Globulin Ratio 1.7 (0.9-2) 04/20/22 05:58 Lipase 97 U/L (11-82) H 04/18/22 07:56 SARS-CoV-2, RNA, NAAT NEGATIVE (NEGATIVE) 04/18/22 09:[address] 04/18/22 08:11 CT head/brain wo con CLINICAL HISTORY: 66 years-old Female with Increase confusion, fall several days ago. Acutely altered mental status. Head trauma status post fall TECHNIQUE: Multiple axial CT images of the head were obtained without contrast. A dose lowering technique was utilized adhering to the principles of ALARA. CT DOSE: 614.27 mGy.cm COMPARISON: 12/22/2021 FINDINGS: No acute intracranial hemorrhage, midline shift, intracranial mass, hydrocephalus, territorial ischemia or abnormal extra-axial collection. Involutional changes with chronic microvascular ischemic disease. Mildly motion degraded exam. The calvarium is intact. (Right mastoid effusions. Fluid is also noted within the left middle ear cavity. Paranasal sinuses are generally clear. Unremarkable soft tissues and orbits. IMPRESSION: 1. No acute intracranial abnormality. 2. Bilateral mastoid effusions. ACT 112: Negative or not required by law. The above report was generated using voice recognition software. It may contain grammatical, syntax or spelling errors. Electronically signed by: Caleb Shearer M.D. 04/18/2022 8:44 AM Chest X-Ray 04/18/22 08:44 XR chest 1V portable HISTORY: 66 years-old Female confusion acutely altered mental status COMPARISON: 01/22/2022 TECHNIQUE: AP view of the chest FINDINGS: Cardiomediastinal and hilar silhouettes are within normal limits. No pneumothorax, pleural effusion, airspace consolidation or overt pulmonary edema. Surgical clips of the right upper quadrant abdomen. Degenerative changes of the shoulders and spine. IMPRESSION: No acute process. ACT 112: Negative or not required by law. The above report was generated using voice recognition software. It may contain grammatical, syntax or spelling errors. Electronically signed by: Caleb Shearer M.D. 04/18/2022 9:04 AM PG Care Time/CCT Total # of Minutes Spent Total Time Spent with Patient: Total time spent is greater than 50% in coordination of care (as documented) at patient's floor/unit and/or counseling patient: Coding Level of Care Code 03062 INT INP/OBS CARE MIN Diagnoses Hyperammonemia E72.20 Hepatic encephalopathy K72.90 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
[2022-04-20 10:17] LABS: Ferritin 15.7 ng/ml (8-388)
[2022-04-20] MEDS: LORazepam 1 MG TAB PO PRN (11:35)
--- NOTE | 2022-04-20 15:12 | Hospitalist Progress Note ---
Date of Service April 20, 2022 Assessment & Plan (1) Hyperammonemia: Plan: Improving with treatment. Level of 50 today which is within normal limits. Continue serial labs and current treatment plan. (2) Hepatic encephalopathy: Plan: Metabolic encephalopathy due to hepatic reasons and elevated ammonia level. Now resolved. (3) Diabetes mellitus, type 2: Plan: ADA diet. Sliding scale coverage. Hold home dulaglutide. Takes weekly. (4) Hypothyroidism: Plan: Stable with Synthroid replacement therapy (5) Portal hypertension: Plan: Due to Rebollar induced cirrhosis. Continue propranolol and Protonix. EGD 05/2020: Grade 1 esophageal varices. Nonbleeding (6) LISA (acute kidney injury): Plan: Present on admission. Mild. Resolved with IV fluid resuscitation. Monitor intake and output. Serial labs (7) 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: Plan: Supportive care. Serial labs. Treat elevated ammonia levels (8) Hypomagnesemia: Plan: Oral and parenteral replacement. Serial labs (9) Moeller esophagus: Plan: Moeller's esophagus with esophagitis. Continue PPI. (10) Anxiety and depression: Plan: Stable with current medication. (11) Hypokalemia: Plan: Serial labs. Replacement therapy as needed (12) Benign essential tremor: Plan: Supportive care. Continue propranolol therapy Plan Hopeful discharge to home tomorrow, April 21 Admission and Anticipated Discharge Date Admission Date: April 18, 2022 Subjective Alert and oriented. is at the bedside. The patient seems to be most concerned about her benign essential tremor which I am sure is not new. She is already on propranolol for the esophageal varices. Potassium replacement continues. Hemoglobin is stable at 7.9. Ammonia is down to 50. OT and PT assessments ordered. Review of Systems Review of Systems: Constitutional-no fever or chills ENT-no blurred vision, no double vision, no epistaxis, no sore throat Respiratory-no cough, no wheezing, no shortness of breath Cardiac-no palpitations, no chest pain, no syncope GI-no nausea, vomiting, diarrhea, melena, hematochezia -no urinary retention, no urinary incontinence, no dysuria, no hematuria Musculoskeletal-no joint pain, no muscle tenderness Skin-no bruising, no rashes, no pruritus Neuro-benign essential tremor noted in both hands. Worse with intention Psych-no depression, no anxiety Physical Exam Physical Exam: General-alert and oriented x3, no fevers, no chills HEENT-head atraumatic and normocephalic, pupils equal and reactive to light, extraocular muscles intact Neck-no lymphadenopathy or thyromegaly, trachea midline Chest-clear to auscultation percussion. No rales wheezing or rhonchi Cardiac-regular rate and rhythm, normal S1 and S2 Abdomen-normal bowel sounds, nontender, no hepatosplenomegaly Extremities-no cyanosis, clubbing, or edema Neuro-benign essential tremor noted at rest and with intention. No focal deficits. Psych-normal affect, normal mood Results & Data Results & Data ([facility]) Vital Signs (Past 12 Hours) Vital Signs Temp Pulse Pulse Pulse Resp BP Pulse Ox 04/20/22 14:59 78 04/20/22 11:28 36.8 C 80 20 127/68 95 04/20/22 08:28 04/20/22 07:16 36.5 C 79 18 123/71 97 04/20/22 07:16 75 O2 Del Method 04/20/22 14:59 04/20/22 11:28 Room Air 04/20/22 08:28 Room Air 04/20/22 07:16 Room Air 04/20/22 07:16 Laboratory Results 04/20/22 05:58 04/20/22 05:58 PG Care Time/CCT Total # of Minutes Spent Total Time Spent with Patient: Total time spent is greater than 50% in coordination of care (as documented) at patient's floor/unit and/or counseling patient: Coding Level of Care Code 07760 SUB INP/OBS CARE 3/50MIN Diagnoses Hyperammonemia E72.20 Hepatic encephalopathy K72.90 Diabetes mellitus, type 2 E11.9 Hypothyroidism E03.9 Portal hypertension K76.6 LISA (acute kidney injury) N17.9 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 Hypomagnesemia E83.42 Moeller esophagus K22.70 Anxiety and depression F41.9; F32.9 Hypokalemia E87.6 Benign essential tremor G25.0
--- NOTE | 2022-04-20 19:32 | XRay Report ---
XR wrist LT min 3V routine CLINICAL HISTORY: possible fall into bed COMPARISON: None FINDINGS: The trapezium has likely been resected. Wrist soft tissue swelling is noted on lateral pro jection. Lucency within the distal left radius is noted. No definite fracture is identified. There ar e moderate degenerative changes within the left wrist. IMPRESSION: 1. Distal left radial lucency, as described above. This is likely artifactual. An acute nondisplaced fracture could appear similar although is considered less likely. Correlate with point tenderness is recommended. 2. Left wrist soft tissue swelling. 3. Moderate degenerative changes within the left wrist. ACT 112: Negative or not required by law. Electronically signed by: Keven Bettencourt M.D. 04/20/2022 7:31 PM
[2022-04-20] MEDS ORDERED: MELATONIN 3 MG TAB PO PRN (20:01)
[2022-04-20] MEDS: ACETAMINOPHEN 325 MG TAB PO PRN (20:58)
[2022-04-21] MEDS: ACETAMINOPHEN 325 MG TAB PO PRN (03:59)
[2022-04-21] MEDS: LORazepam 1 MG TAB PO PRN (04:00)
[2022-04-21] MEDS: LEVOTHYROXINE SODIUM 112 MCG TABLET PO SCH (06:04)
[2022-04-21 06:35] LABS: Hemoglobin 7.9 g/dl (12.0-16.0); Mean Corpuscular Hemoglobin 25.8 pg (25.0-34.0); Mean Corpuscular Hgb Conc 32.9 g/dL (32.0-36.0); Mean Corpuscular Volume 78.4 fL (80.0-100.0); Mean Platelet Volume 9.5 fL (9.4-12.4); Platelet Count 133 K/uL (130-400); RDW Standard Deviation 51.5 fL (36.4-46.3); Red Blood Count 3.06 M/uL (4.20-5.40); White Blood Count 4.75 K/ul (4.8-10.8)
[2022-04-21 06:52] LABS: Albumin Globulin Ratio 1.6 (0.9-2); BUN Creatinine Ratio 17.2 (10-20); Bilirubin,Total 4.5 mg/dl (0.2-1.0); Calcium 10.7 mg/dl (8.5-10.1); Creatinine Clr Calc Pharmacy 40.8 ml/min; Est GFR (African American) 52.7 ml/min; Est GFR (Non-African American) 45.5 ml/min; Globulin 1.9 gm/dl (2.5-4.0); Potassium 3.6 mmol/L (3.5-5.1); Total Protein 4.9 gm/dl (6.0-8.3)
[2022-04-21] MEDS: LACTULOSE SYRUP 30 GM/45 ML UDP PO SCH ×3 (07:37→22:24)
[2022-04-21] MEDS: PROPRANOLOL HCL LA 80 MG CAPCR PO SCH (07:38)
[2022-04-21] MEDS: PARoxetine HCL 20 MG TAB PO SCH (07:38)
[2022-04-21] MEDS: CHLORTHALIDONE 25 MG TAB PO SCH (07:38)
[2022-04-21] MEDS: MAGNESIUM OXIDE 400 MG TAB PO SCH ×2 (07:39→22:26)
[2022-04-21] MEDS: rifAXIMin 550 MG TABLET PO SCH ×2 (07:39→22:24)
[2022-04-21] MEDS: HEPARIN SOD 5,000 UNIT/0.5 ML VIAL SQ SCH ×2 (07:41→22:25)
[2022-04-21] MEDS: DICLOFENAC SOD 1% GEL 100 GM TUBE EXT SCH ×3 (08:17→22:25)
[2022-04-21] MEDS: INSULIN ASPART PER UNIT SC SCH ×4 (08:17→22:24)
[2022-04-21 12:18] LABS: Appearance Urine Clear (Clear); Bilirubin Urine Negative (Negative); Blood Urine Negative (Negative); Color Urine Dark Yellow; Glucose Urine UA Negative (Negative); Ketones Urine Trace (Negative); Leukocyte Esterase Urine Negative (Negative); Nitrite Urine Negative (Negative); Protein Urine Negative (Negative); Specific Gravity Urine 1.021 (1.000-1.030); Urobilinogen Urine Negative (Negative); pH Urine 5.5 (4.5-7.5)
--- NOTE | 2022-04-21 14:07 | Hospitalist Progress Note ---
Date of Service April 21, 2022 Assessment & Plan (1) Hyperammonemia: Plan: Slightly higher than yesterday but better than on admission. No evidence of hepatic encephalopathy at this time. Continue rifaximin and lactulose treatment. (2) Hepatic encephalopathy: Plan: Metabolic encephalopathy due to hepatic reasons and elevated ammonia level. Now resolved. (3) Diabetes mellitus, type 2: Plan: ADA diet. Sliding scale coverage. Holding home dulaglutide. Takes weekly. (4) Hypothyroidism: Plan: Stable with Synthroid replacement therapy (5) Portal hypertension: Plan: Due to Rebollar induced cirrhosis. Continue propranolol and Protonix. EGD 05/2020: Grade 1 esophageal varices. Nonbleeding (6) LISA (acute kidney injury): Plan: Present on admission. Mild. Resolved with IV fluid resuscitation. Monitor intake and output. Serial labs (7) 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: Plan: Supportive care. Serial labs. Treat elevated ammonia levels (8) Hypomagnesemia: Plan: Oral and parenteral replacement. Serial labs (9) Moeller esophagus: Plan: Moeller's esophagus with esophagitis. Continue PPI. (10) Anxiety and depression: Plan: Stable with current medication. (11) Hypokalemia: Plan: Serial labs. Replacement therapy as needed (12) Benign essential tremor: Plan: Supportive care. Continue propranolol therapy (13) Left wrist sprain: Plan: Lucency noted in distal left radius but probably not a fracture per radiology. Continue splint. Orthopedic consultation pending Plan Hopeful discharge to home tomorrow, April 22 Admission and Anticipated Discharge Date Admission Date: April 18, 2022 Subjective Ammonia level is higher than yesterday but no mental status changes. Potassium corrected to 3.6. Hemoglobin stable but low. She injured her wrist getting into bed last evening. X-ray reveals no definite fracture but there is a distal radiolucency. Orthopedic consultation requested. OT and PT services have seen the patient and she can be discharged to home hopefully tomorrow. Review of Systems Review of Systems: Constitutional-no fever or chills ENT-no blurred vision, no double vision, no epistaxis, no sore throat Respiratory-no cough, no wheezing, no shortness of breath Cardiac-no palpitations, no chest pain, no syncope GI-no nausea, vomiting, diarrhea, melena, hematochezia -no urinary retention, no urinary incontinence, no dysuria, no hematuria Musculoskeletal-left wrist discomfort after apparent sprain last evening Skin-no bruising, no rashes, no pruritus Neuro-no isolated weakness, no paresthesia, no weakness Psych-no depression, no anxiety Physical Exam Physical Exam: General-alert and oriented x3, no fevers, no chills HEENT-head atraumatic and normocephalic, pupils equal and reactive to light, extraocular muscles intact Neck-no lymphadenopathy or thyromegaly, trachea midline Chest-clear to auscultation percussion. No rales wheezing or rhonchi Cardiac-regular rate and rhythm, normal S1 and S2 Abdomen-normal bowel sounds, nontender, no hepatosplenomegaly Extremities-no cyanosis, clubbing, or edema. Left wrist immobilized in a splint Neuro-cranial nerves II through XII intact, motor and sensory function within normal limits, strength symmetrical , no focal deficits Psych-normal affect, normal mood Results & Data Results & Data ([facility]) Vital Signs (Past 12 Hours) Vital Signs Temp Pulse Pulse Resp BP BP Pulse Ox 04/21/22 10:57 36.6 C 73 18 112/54 L 95 04/21/22 07:26 36.5 C 71 18 104/58 L 96 04/21/22 07:15 71 04/21/22 02:50 36.5 C 73 18 101/55 L 95 O2 Del Method 04/21/22 10:57 Room Air 04/21/22 07:26 Room Air 04/21/22 07:15 04/21/22 02:50 Room Air Laboratory Results 04/21/22 06:12 04/21/22 06:12 PG Care Time/CCT Total # of Minutes Spent Total Time Spent with Patient: Total time spent is greater than 50% in coordination of care (as documented) at patient's floor/unit and/or counseling patient: Coding Level of Care Code 26578 SUB INP/OBS CARE 3/50MIN Diagnoses Hyperammonemia E72.20 Hepatic encephalopathy K72.90 Diabetes mellitus, type 2 E11.9 Hypothyroidism E03.9 Portal hypertension K76.6 LISA (acute kidney injury) N17.9 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 Hypomagnesemia E83.42 Moeller esophagus K22.70 Anxiety and depression F41.9; F32.9 Hypokalemia E87.6 Benign essential tremor G25.0 Left wrist sprain Y23.698Y
--- NOTE | 2022-04-21 16:58 | Orthopedic Consultation ---
Date of Consultation April 21, 2022 Assessment & Plan (1) Left wrist sprain: Patient was educated regarding today's findings. Conservative care measures were discussed. She was evaluated in conjunction with Dr. Subramanian, who also interviewed the patient. She is already in a thumb spica Velcro splint. This is adequate for protection of her wrist given her inconclusive radiographic findings. She was encouraged to gently move her wrist within her pain tolerance to prevent stiffness. She should avoid forcing range of motion. She should use the wrist splint at all times other than bathing. She may continue to use the wrist within her pain tolerance. If indeed it is a nondisplaced fracture, it is in excellent alignment and no surgical intervention would improve this. Patient should have new films obtained in approximately 2 weeks to assess for bone remodeling, indicating fracture of the distal radius. She may follow-up at the office for this. I will make an appointment for her and listed in her discharge instructions. If she has been transferred to [place] for liver surgery, she should have the films obtained there. Copies of her current radiographs can be sent on disc during her transport. Continue with ice, elevation, and pain medication as needed for wrist discomfort. No formal physical therapy or occupational therapy is needed at this time. Present on Admission?: Yes Supervising Physician Co-Signing Physician Notes I, Dr. Subramanian, saw and examined the patient with my PA and discussed the management with my PA. I reviewed my PAs note and agree with the documented findings and the plan of care I developed. DX: Left wrist pain secondarily to contusion versus occult fracture. PE: LUE sensation to light touch is intact. Motor to median, radial, ulnar, AIN, PIN are intact. 2+ radial pulse. +TTP ulnar forearm > distal radius. Decent motion of the wrist, digits, and forearm. Intention Tremor of hands and feet. History of Present Illness Reason for Consultation: Left wrist pain Requesting Physician: Darnell Subramanian MD Attending Physician: Elijah Cochran MD History of Present Illness This 66-year-old female, right hand dominant with a history of tremors, elevated ammonia level, weakness, chronic liver disease, hepatic encephalopathy, liver cirrhosis secondary to Daily, hypothyroidism, anxiety, depression, Moeller's esophagus, and dehydration, presents with left wrist pain. Patient states she was admitted for confusion and weakness few days ago. She was coming back from the bathroom last evening and got confused. She fell forward, striking her face on the foot of her bed as well as her wrist on the floor. She had immediate onset of pain in her wrist. X-rays were obtained last evening. They were inconclusive for a distal radius fracture. She was placed in a thumb spica splint and orthopedics was consulted for evaluation. She states her wrist is just as painful as it was yesterday. She notes pain with motion. She denies any numbness or tingling. No prior history of significant left wrist injury. She denies any elbow pain. She does have a history of a right wrist injury but states that is currently fine. She denies any pain in her other extremities. She does note a significant tremor in her upper and lower extremities that his started over the last several days. Allergies Allergy/AdvReac Type Severity Reaction Status Date / Time bee venom protein (honey bee) Allergy Severe Anaphylaxis Verified 03/06/22 07:58 Influenza Virus Vaccines Allergy Severe Anaphylaxis Verified 03/06/22 07:58 tetracycline AdvReac Severe Severe Verified 03/06/22 07:58 stomach pains Home Medications Medication Instructions Recorded Confirmed Type paroxetine HCl 20 mg tablet 80 mg PO QAM 04/17/19 04/18/22 History valacyclovir 1 gram tablet 1 mg PO UD PRN Cold Sores 04/16/21 04/18/22 History zhdpojyu-ivd-csyyq ac 400 1 tab PO QAM 07/15/21 04/18/22 History mcg-calcium carb 500 mg-vit K1 20 mcg tablet (Women's 50 Plus Multivitamin) omeprazole 40 mg capsule,delayed 40 mg PO QAM 11/04/21 04/18/22 History release potassium chloride 20 mEq 20 meq PO BID 12/22/21 04/18/22 History tablet,extended release(part/cryst) (Klor-Con M) chlorthalidone 25 mg tablet 25 mg PO QAM 01/22/22 04/18/22 History magnesium oxide 500 mg tablet 500 mg PO QAM 01/22/22 04/18/22 History propranolol 80 mg capsule,24 80 mg PO QAM 01/22/22 04/18/22 History hr,extended release rifaximin 550 mg tablet (Xifaxan) 550 mg PO BID 01/22/22 04/18/22 History lactulose 20 gram/30 mL oral 30 g (45 mL) PO TID #4,050 mL 01/23/22 04/18/22 Rx solution tramadol 50 mg tablet 50 mg PO DAILY PRN Pain 01/23/22 04/18/22 History levothyroxine 112 mcg tablet 112 mcg PO Q2D #45 tabs 02/24/22 04/18/22 Rx Trulicity 3 mg SC Q7D 04/18/22 04/18/22 History clotrimazole 04/18/22 History hydroxyzine HCl 25 mg PO QPM 04/18/22 04/18/22 History levothyroxine 100 mcg tablet 100 mcg PO Q2D 04/18/22 04/18/22 History paroxetine HCl 40 mg PO QAM 04/18/22 04/18/22 History rifaximin 550 mg PO QID 04/18/22 04/18/22 History sulfamethoxazole PO QID sinus infection 04/18/22 History Patient History Medical History Anemia HX Anxiety and depression Arthritis Moeller's esophagus with esophagitis Chronic diarrhea SOMETIMES - when takes lactulose 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 Depression Diabetes mellitus, type 2 Diverticulosis GERD (gastroesophageal reflux disease) Heel spur B/L feet Hiatal hernia History of colon polyps BENIGN History of fractured vertebra CURRENT, HX FALL JULY 2021 - FELL OF THE TOILET - NO INTERVENTION AT PRESENT/ DR [facility] SE[facility] FOR TO DISCUSS TX OPTIONS - POTENTIAL BACK BRACE History of kidney stones Hyperlipidemia Hypertension NO CURRENT MEDS Hypothyroidism Liver cirrhosis secondary to DAILY DAILY (nonalcoholic steatohepatitis) Seasonal allergies Spleen enlarged MONITORS - PT REPORTS FROM THE DAILY Stucco keratoses Temporomandibular joint disorder NO LOCKING/WEARS SAMPLE SELECTOR Thyroid disease Surgical History H/O thumb surgery RT/LEFT JOINT REPAIR H/O total hysterectomy History of appendectomy History of arthroscopy of knee Left Knee - meniscus/cartilage History of colonoscopy History of cystoscopy History of esophagogastroduodenoscopy (EGD) History of tonsillectomy and adenoidectomy History of tooth extraction Hx of cholecystectomy Family History Brother Coronary heart disease Heart disease Mother Family history of diabetes mellitus Hypertension Heart disease Sister Family history of diabetes mellitus Son Family history of diabetes mellitus Father Family hx of colon cancer Hearing loss Hypertension Cancer Heart disease Grandfather (Maternal) Family hx of colon cancer Other No family history of adverse response to anesthesia No family history of bleeding disorder Social History Smoking Status: Never smoker Second Hand Exposure: No; Do You Dip or Chew Tobacco: No; Tobacco Cessation Education Requested by Patient: No Hx Alcohol Use: No Hx Substance Use: No Preferred Language: Turkmen Communication Ability: Effective Firer [employer]que Kiln Required: No Beliefs That Will Affect Care: None marital status: Current Living Situation: Spouse Current Living Situation Comment: and sister current occupational status: employed and retired How many Children do You have: 0 Other Information That Helps Us Care for You: No Feels Safe at Home: Yes Safety Concerns: Feels Safe At This Time Assistive Devices: Glasses, Walker and Wheelchair Review of Systems Review of Systems: All systems reviewed & are unremarkable except as noted in HPI & below Physical Exam Physical Exam: General: Well-developed, well-nourished, elderly female, in no acute distress. Sitting in bed. Alert and oriented. Conversive. Occasional tremors in her upper and lower extremities. Skin: Warm and dry with good turgor. No rashes. She has mild edema present over the dorsum of her wrist. Very mild ecchymosis has developed along the radial border. No erythema or warmth. Musculoskeletal: Patient has no discomfort with palpation over her left shoulder, elbow, or forearm. She does have discomfort with palpation over the distal ulna and distal radius. No palpable crepitus. She has good flexion and extension of the wrist as well as radial/ulnar deviation. She has no pain with these motions. She does have discomfort with supination and pronation. She does have full supination and pronation of the wrist. No pain with palpation over the metacarpals or phalanges. She has full range of motion of her fingers. She is able to make a fist. Thumb circumduction and opposition are intact. She is able to cross her fingers, abduct the digits, and has strength of 5/5 for resisted flexion and extension of the digits. There is also strength is 5/5 for resisted flexion and extension of the wrist. Neurologic: Gross sensation is intact across the digits of the left hand by soft touch. Peripheral pulses are 2+. Capillary fill is equal for each of the fingers. Results & Data ([facility]) Vital Signs (Past 12 Hours) Vital Signs Temp Pulse Pulse Resp BP BP Pulse Ox 04/21/22 15:28 82 04/21/22 14:30 36.6 C 83 18 106/54 L 94 04/21/22 10:57 36.6 C 73 18 112/54 L 95 04/21/22 07:26 36.5 C 71 18 104/58 L 96 04/21/22 07:15 71 O2 Del Method 04/21/22 15:28 04/21/22 14:30 Room Air 04/21/22 10:57 Room Air 04/21/22 07:26 Room Air 04/21/22 07:15 Diagnostic Findings Radiographic imaging previously obtained last evening was reviewed. She does have a lucency through the distal radius at the radial styloid, though it does not exit through the cortex. Possibility of incomplete fracture versus radiographic artifact was considered. She does have mild to moderate arthritic changes through the wrist. No additional fractures are identified.
[2022-04-21] MEDS: LANTUS PER UNIT CHARGE SQ SCH (17:04)
[2022-04-22] MEDS: LEVOTHYROXINE SODIUM 100 MCG TABLET PO SCH (05:38)
[2022-04-22] MEDS: ACETAMINOPHEN 325 MG TAB PO PRN (05:40)
[2022-04-22] MEDS: MAGNESIUM OXIDE 400 MG TAB PO SCH (09:23)
[2022-04-22] MEDS: CHLORTHALIDONE 25 MG TAB PO SCH (09:23)
[2022-04-22] MEDS: rifAXIMin 550 MG TABLET PO SCH (09:23)
[2022-04-22] MEDS: PROPRANOLOL HCL LA 80 MG CAPCR PO SCH (09:23)
[2022-04-22] MEDS: HEPARIN SOD 5,000 UNIT/0.5 ML VIAL SQ SCH (09:24)
[2022-04-22] MEDS: DICLOFENAC SOD 1% GEL 100 GM TUBE EXT SCH ×2 (09:24→12:13)
[2022-04-22] MEDS: LACTULOSE SYRUP 30 GM/45 ML UDP PO SCH (09:24)
[2022-04-22] MEDS: PARoxetine HCL 20 MG TAB PO SCH (09:24)
[2022-04-22] MEDS: LANTUS PER UNIT CHARGE SQ SCH (09:33)
[2022-04-22] MEDS: INSULIN ASPART PER UNIT SC SCH ×2 (09:34→12:15)
--- NOTE | 2022-04-22 11:31 | Discharge Summary ---
Date of Service April 22, 2022 Admission HPI Per Admitting Provider Shaking hands 'whole body locked up yesterday.' Since being in the hospital in the last few hours 6-7 episodes of convulsions and tremors RUQ pain [facility], no time frame, accepted on the transplant list but is on followup trip #6 and meets the minimum threshold for surgery and has a living donor but does not have procedure scheduled yet. Donor is in the middle of the testing process. Taking Augmentin for a sinus infection 1 dozen BM yesterday. has been giving lactulose regularly Xifaxin twice once Denies fever, chills, sweats, lightheadedness, dizziness, chest pain, chest pressure related belly feels a little full but not significantly different from normal. Denies dysuria. Endorses more fatigue and intermittent confusion in the last 2 days, and has had muscle spasm and tightness. is with patient at bedside who reports that he manages patient medications, has been giving these faithfully and she has not missed any doses of her medicines. Notes that she has many bowel movements daily, 8-12 with the lactulose and that this has not changed recently. No current tobacco/alcohol use. Medical history/allergies reviewed. Patient previously has been DNR/DNI. At bedside patient reports that she would like to be full code, and is hopeful of the progression onto the transplant list with [facility]. CODE STATUS updated on admission Principal Diagnosis Hyperammonemia due to cirrhosis, hepatic encephalopathy/metabolic encephalopathy, hypomagnesemia, hypokalemia, benign essential tremor, left wrist sprain, acute kidney injury Discharge Exam General-alert and oriented x3, no fevers, no chills HEENT-head atraumatic and normocephalic, pupils equal and reactive to light, extraocular muscles intact Neck-no lymphadenopathy or thyromegaly, trachea midline Chest-clear to auscultation percussion. No rales wheezing or rhonchi Cardiac-regular rate and rhythm, normal S1 and S2 Abdomen-normal bowel sounds, nontender, no hepatosplenomegaly Extremities-no cyanosis, clubbing, or edema. Left wrist immobilized in a splint Neuro-cranial nerves II through XII intact, motor and sensory function within normal limits, strength symmetrical , no focal deficits Psych-normal affect, normal mood Discharge Data Allergies Allergy/AdvReac Type Severity Reaction Status Date / Time bee venom protein (honey bee) Allergy Severe Anaphylaxis Verified 03/06/22 07:58 Influenza Virus Vaccines Allergy Severe Anaphylaxis Verified 03/06/22 07:58 tetracycline AdvReac Severe Severe Verified 03/06/22 07:58 stomach pains Consultations 04/18/22 10:38 ED Decision to Admit Stat 04/19/22 16:46 Consult Gastroenterology Routine 04/21/22 12:34 Consult Orthopedic Surgery Routine Ordered Studies 04/18/22 08:11 CT head/brain wo con Stat Hospital Course (1) Hyperammonemia: Ammonia level remains on the high side but she has no mental status changes. Lactulose dosing increased to 4 times daily. Continue rifaximin. (2) Hepatic encephalopathy: Metabolic encephalopathy due to hepatic reasons and elevated ammonia level. Now resolved. (3) Diabetes mellitus, type 2: ADA diet. Sliding scale coverage. Holding home dulaglutide. Lantus twice daily while hospitalized. Resume Trulicity at discharge (4) Hypothyroidism: Stable with Synthroid replacement therapy (5) Portal hypertension: Due to Daily induced cirrhosis. Continue propranolol and Protonix. EGD 05/2020: Grade 1 esophageal varices. Nonbleeding (6) LISA (acute kidney injury): Present on admission. Mild. Resolved with IV fluid resuscitation. Monitor intake and output. Serial labs (7) Liver cirrhosis secondary to DAILY: Supportive care. Serial labs. Treat elevated ammonia levels (8) Hypomagnesemia: Oral and parenteral replacement. Resolved. Serial labs (9) Moeller esophagus: Moeller's esophagus with esophagitis. Continue PPI. (10) Anxiety and depression: Stable with current medication. (11) Hypokalemia: Serial labs. Replacement therapy as needed (12) Benign essential tremor: Supportive care. Continue propranolol therapy (13) Left wrist sprain: Seen by orthopedic surgery. This is thought to be a sprain without fracture. Splint remains in place. Plan Discharge to home today, April 22 . Her will provide needed oversight Total Time Total Time Spent Total Time Spent (In Minutes): 35 minutes Discharge Plan Discharge Items Patient Disposition: Home - Self-Care Reason For Visit: HYPERAMMONEMIA, MUSCLE SPASM Discharge Diagnosis: Hepatic encephalopathy/metabolic encephalopathy, hypokalemia, hypomagnesemia, acute kidney injury, left wrist sprain, benign essential tremor Condition on Discharge: Fair Activity: Resume your previous activity Non-emergency contact: Primary Care Provider Call non-emergency contact if: you have any medication questions and your symptoms worsen Follow-up/Referrals: Toan Subramanian MD [Physician] - 05/06/22 3:00 pm (please arrive at 2:45pm) Lakisha rAriaga [Primary Care Provider] - Diet: Carb Consistent or DM2 and Heart Healthy Addtl Attending Provider Instructions: Taking lactulose 4 times a day to keep ammonia levels in a satisfactory range. Continue to wear left wrist splint until follow-up with primary care provider. Addtl Enterprise Manager Provider Instructions: Keep your wrist splint on at all times other than stretching and bathing. Perform gentle range of motion of the wrist several times per day within your pain tolerance. Do not push the range of motion beyond this. Obtain x-rays of your wrist in 2 weeks for reexamination of the findings on x- ray. Follow-up with Dr. Subramanian in the office as scheduled for this, or if you are in [place], have the films obtained there for comparison. Ice and elevate the wrist frequently to reduce pain and swelling. Pending Studies at Discharge: No Stand-Alone Forms: [facility], Smoking Cessation Medications and DC Order Prescriptions: New lactulose 20 gram/30 mL Solution 30 g PO QID Qty: 1500 0RF Continued levothyroxine 112 mcg tablet 112 mcg PO Q2D Qty: 45 1RF Rx Instructions: 112 mcg PO every other day, alternate with 100 mcg. Take 1st thing in the morning on an empty stomach 30 min prior to any other oral intake. paroxetine HCl 20 mg tablet 80 mg PO QAM valacyclovir 1 gram tablet 1 mg PO UD PRN (Reason: Cold Sores) Label Comments: NOT CURRENTLY USING omeprazole 40 mg Capsule,Delayed Release(Dr/Ec) 40 mg PO QAM potassium chloride [Klor-Con M20] 20 mEq tablet,ER particles/crystals 20 meq PO BID Xifaxan 550 mg tablet 550 mg PO BID Rx Instructions: ordered 01/07/22 for 30 days chlorthalidone 25 mg tablet 25 mg PO QAM propranolol 80 mg capsule,extended release 24hr 80 mg PO QAM magnesium oxide 500 mg Tablet 500 mg PO QAM tramadol 50 mg tablet 50 mg PO DAILY PRN (Reason: Pain) Women's 50 Plus Multivitamin 400 mcg-500 mg calcium-20 mcg Tablet 1 tab PO QAM Trulicity 3 mg 3 mg SC Q7D clotrimazole hydroxyzine HCl 25 mg 25 mg PO QPM paroxetine HCl 40 mg tablet 40 mg PO QAM rifaximin 550 mg 550 mg PO QID sulfamethoxazole PO QID levothyroxine 100 mcg tablet 100 mcg PO Q2D Rx Instructions: 100 mcg PO every other day; alternate with 112 mcg Discontinued lactulose 20 gram/30 mL solution 30 g PO TID Qty: 4050 0RF Discharge Orders: Discharge Order (Routine); Ordered 04/22/22 Ordered By: Elijah Cochran Admission Data Admit Date/Time: 04/18/22 11:37 Attending Provider: Elijah Cochran Admit Provider: Fredy Louis Primary Care Provider: Lakisha Arriaga Other Providers: Fredy Louis ; Ewa Carlos ; Ryan Rouse ; Lizett Cortez ; Faviola Werner ; Bella Zamora ; Africa Ulloa ; Oneil Garcia ; Alexander Manjarrez ; Gael Bloom ; Tamica Gutierrez ; Joey Higuera ; Maryellen Spangler ; Judy Ross ; Talisha Lynn ; Luzmaria Carrasco ; Tangela Ordoñez ; Efraín Plascencia ; Cory Jamil ; Gris Velasquez ; Dar Sarkar Jr ; Toan Subramanian A Coding Level of Care Code HOSP INP/OBS DISCH >30 MIN Diagnoses Hyperammonemia E72.20 Hepatic encephalopathy K72.90 Diabetes mellitus, type 2 E11.9 Hypothyroidism E03.9 Portal hypertension K76.6 LISA (acute kidney injury) N17.9 Liver cirrhosis secondary to DAILY K75.81; K74.60 Hypomagnesemia E83.42 Moeller esophagus K22.70 Anxiety and depression F41.9; F32.9 Hypokalemia E87.6 Benign essential tremor G25.0 Left wrist sprain S63.502A
[2022-04-22] MEDS ORDERED: LACTULOSE SYRUP 30 GM/45 ML UDP PO SCH (13:00)
== END 2022-04-22 12:40 | disposition home or self-care (01) | DRG 642 ==
LOC: ED 07:37 → EDINP 11:37 → SUATTDRO 11:37 → 2N 15:30

== ENCOUNTER 2022-06-18 18:43 | Inpatient (IN) ==
[2022-06-18] MEDS ORDERED: SODIUM CHLORIDE 0.9% 1000ML 1,000 ML IV STA (18:48)
--- NOTE | 2022-06-18 18:48 | ED Triage Note ---
Date of Service June 18, 2022 History of Present Illness This patient was briefly evaluated while in triage. An abbreviated physical exam was performed. This patient is a 67-year-old Female who presents to the ED for evaluation of lower abdominal pain, nausea and vomiting. Patient also reports distention of the belly. The patient has never required paracentesis in the past. Patient denies any fevers at home. Patient has had a prior history of diverticulitis, and reports that this feels different. Patient does go to the [facility] with a progressively worsening anemia. The patient is currently on a wait list for liver transplant. Physical Exam CONSTITUTIONAL: Healthy and well nourished. HEENT: No scleral icterus or conjunctival injection/pallor. RESPIRATORY: Clear to auscultation bilaterally with no wheezing, crackles, rhonchi or stridor. CARDIOVASCULAR: Regular rate and rhythm with no murmurs, rubs or gallops. GASTROINTESTINAL: Bowel sounds present in all quadrants. Abdomen is protuberant without any obvious fluid wave. Patient has generalized tenderness to palpation through the lower abdominal, left-sided and left upper quadrant region nditions noted. HEMATOLOGIC: No ecchymosis or petechiae. PSYCHIATRIC: Positive affect. NEUROLOGIC: No focal neurologic deficits noted. Initial orders for labs and / or imaging were placed and patient was placed in the waiting area until a bed is available. Please see further documentation for the full ED course.
[2022-06-18] MEDS ORDERED: FAMOTIDINE 20MG IV PUSH 20 MG/5 ML SYR IV STA (19:14)
[2022-06-18] MEDS ORDERED: ONDANSETRON INJ 2 MG/ML 2 ML VIAL IV STA (19:14)
--- NOTE | 2022-06-18 19:14 | Emergency Department Note ---
Impression & Plan Intractable nausea and vomiting, Liver cirrhosis secondary to DAILY, Chronic anemia ED Provider Note NAME: SHOLA WYNN AGE: 67 SEX: F ARRIVES VIA: Walk-In INFORMANT: Patient ED PROVIDER(S): Jan Padron MD CHIEF COMPLAINT: Abdominal pain, nausea and vomiting. PLAN: Disposition: Admit MEDICAL DECISION MAKING: The patient is a pleasant 67-year-old woman with a past medical history of Daily cirrhosis who presents to the emergency department via walk-in accompanied by her for evaluation of generalized abdominal pain with nausea and vomiting that has been ongoing for the past week. Patient reports that she has no change in her stools which are loose due to taking lactulose. She denies any urinary symptoms but does report burning and skin irritation in her region which they attribute to frequent wiping related to her bowel movements. She denies cough or congestion. Denies any chest pain or shortness of breath. She reports she feels her abdomen is more distended than it has been. She reports she has been following at [facility] for her cirrhosis as she is on the transplant list and they have noticed a steady decline in her H/H and is scheduled for an endoscopy in July. She denies any bloody or black stool. On arrival the patient is no acute distress, afebrile stable vital signs. She appears clinically dry. Abdomen with mild distention but soft and not tense. She has generalized abdominal discomfort without discrete tenderness. She has mild jaundice and scleral icterus. WBC and platelets within normal limits. H/H 7.2/23.7 approximate 2 several weeks ago 7.7/24.6 though overall with a gradual downtrend from 12/10 in February. Chemistry without metabolic acidosis. BUN is not elevated. Calcium is 10.6 and otherwise electrolytes without significant abnormality. LFTs are similar to recent range of values. INR 1.3, also similar to prior. High- sensitivity troponin 10.5, within normal limits. Albumin 3.4, within normal limits. Lipase marginally above upper limit of normal, nonspecific and likely related to vomiting. UA without convincing evidence of infection. Respiratory viral panel/BioFire was negative. CT of the abdomen pelvis was performed and did not demonstrate acute abnormalities. Evidence of cirrhosis is seen including moderate ascites, splenomegaly. There is nonspecific thickening of small bowel and colon which may be related to underdistention. Upon reevaluation the patient did have some improvement following IV hydration, famotidine, Zofran, dicyclomine, low-dose morphine, and carafate for suspected gastritis. However she did express concern of still not feeling well and would prefer admission for further management. Given the patient's comorbidities reasonable to proceed with this. Iron studies were ordered and are pending. Case was discussed with [place]. [place], [facility] [place], who will evaluate the patient for admission. Triage Nursing notes reviewed and agree them. Prior/outside medical records reviewed Vital Signs: reviewed Differential diagnosis: Gastroenteritis, food borne illness, infections, appendicitis, diverticulitis, inflammatory bowel disease, obstruction, GI bleed, biliary pathology, volvulus, as well as other pathologies. ER treatment provided: See below. Diagnostics interpreted by me: Cardiac Monitoring: An order for continuous cardiac monitoring was placed and demonstrated normal sinus rhythm, 72 bpm, no ectopy. Laboratory studies: See below Imaging studies: See below Consultation(s): Case was discussed with Dr. Kingsley [facility] [place], who will evaluate the patient for admission. HPI: The patient is a pleasant 67-year-old woman with a past medical history of Daily cirrhosis who presents to the emergency department via walk-in accompanied by her for evaluation of generalized abdominal pain with nausea and vomiting that has been ongoing for the past week. Patient reports that she has no change in her stools which are loose due to taking lactulose. She denies any urinary symptoms but does report burning and skin irritation in her region which they attribute to frequent wiping related to her bowel movements. She denies cough or congestion. Denies any chest pain or shortness of breath. She reports she feels her abdomen is more distended than it has been. She reports she has been following at [facility] for her cirrhosis as she is on the transplant list and they have noticed a steady decline in her H/H and is scheduled for an endoscopy in July. She denies any bloody or black stool. ROS: See above HPI for pertinent positives & negatives. A total of 10 systems reviewed and were otherwise negative. VITALS:See Below PHYSICAL EXAMINATION: GENERAL: Awake, alert, well-appearing, in no distress HENT: Normocephalic, atraumatic. Oropharynx unremarkable. EYES: Normal conjunctiva. Sclera with mild icterus. NECK: Supple. No nuchal rigidity. FROM. No JVD. RESPIRATORY: Clear to auscultation. CARDIAC: Regular rate, normal rhythm. Extremities warm and well perfused. Pulses equal. ABDOMEN: Abdomen with mild distention but soft and not tense. She has generalized abdominal discomfort without discrete tenderness. No rebound or guarding. No masses. RECTAL: Deferred. MUSCULOSKELETAL: Chest examination reveals no tenderness. The back is symmetrical on inspection without obvious abnormality. There is no CVA tenderness to palpation. No joint edema. LOWER EXTREMITIES: Calves are equal size bilaterally and non-tender. No edema. No discoloration. NEURO: Normal sensorium. No sensory or motor deficits noted. SKIN: Warm/dry. Mild jaundice noted. Jan Padron MD Past Med/Surg History Medical History Acute kidney injury Anemia HX Anxiety and depression Arthritis Moeller esophagus Moeller's esophagus with esophagitis Benign essential tremor Chronic diarrhea SOMETIMES - when takes lactulose 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 Colitis with rectal bleeding Depression Diabetes mellitus, type 2 Diverticulosis GERD (gastroesophageal reflux disease) Heel spur B/L feet Hiatal hernia History of colon polyps BENIGN History of fractured vertebra CURRENT, HX FALL JULY 2021 - FELL OF THE TOILET - NO INTERVENTION AT PRESENT/ DR [facility] FOR TO DISCUSS TX OPTIONS - POTENTIAL BACK BRACE History of kidney stones Hyperlipidemia Hypertension Hypothyroidism Hypothyroidism Liver cirrhosis secondary to DAILY Liver cirrhosis secondary to DAILY DAILY (nonalcoholic steatohepatitis) Portal hypertension Seasonal allergies Spleen enlarged MONITORS - PT REPORTS FROM THE DAILY Stucco keratoses Temporomandibular joint disorder NO LOCKING/WEARS HISTORICAL SITE GUIDE Thyroid disease Surgical History H/O thumb surgery RT/LEFT JOINT REPAIR H/O total hysterectomy History of appendectomy History of arthroscopy of knee Left Knee - meniscus/cartilage History of colonoscopy History of cystoscopy History of esophagogastroduodenoscopy (EGD) History of tonsillectomy and adenoidectomy History of tooth extraction Hx of cholecystectomy Family History Brother Coronary heart disease Heart disease Mother Family history of diabetes mellitus Hypertension Heart disease Sister Family history of diabetes mellitus Son Family history of diabetes mellitus Father Family hx of colon cancer Hearing loss Hypertension Cancer Heart disease Grandfather (Maternal) Family hx of colon cancer Other No family history of adverse response to anesthesia No family history of bleeding disorder Social History Smoking Status: Never smoker Second Hand Exposure: No; Hx Alcohol Use: No Hx Substance Use: No Preferred Language: [place] Communication Ability: Effective Resource Director Required: No Beliefs That Will Affect Care: None marital status: Current Living Situation: Spouse Current Living Situation Comment: and sister current occupational status: employed and retired How many Children do You have: 0 Feels Safe at Home: Yes Assistive Devices: Glasses, Walker and Wheelchair Allergies Allergies Allergy/AdvReac Type Severity Reaction Status Date / Time bee venom protein (honey bee) Allergy Severe Anaphylaxis Verified 06/18/22 22:18 Influenza Virus Vaccines Allergy Severe Anaphylaxis Verified 06/18/22 22:18 tetracycline AdvReac Severe Severe Verified 06/18/22 22:18 stomach pains Home Meds Home Medications Medication Instructions Recorded Confirmed vswzjepa-lej-mvejn ac 400 1 tab PO QAM 07/15/21 06/18/22 mcg-calcium carb 500 mg-vit K1 20 mcg tablet (Women's 50 Plus Multivitamin) omeprazole 40 mg capsule,delayed 40 mg PO QAM 11/04/21 06/18/22 release potassium chloride 20 mEq 20 meq PO BID 12/22/21 06/18/22 tablet,extended release(part/cryst) (Klor-Con M) magnesium oxide 500 mg tablet 500 mg PO QAM 01/22/22 06/18/22 dulaglutide 3 mg/0.5 mL 3 mg subcut WK 06/18/22 06/18/22 subcutaneous pen injector (Trulicity) glucagon 3 mg/actuation nasal 3 mg intranasal .UD PRN 06/18/22 06/18/22 spray (Baqsimi) Hypoglycemia hydroxyzine HCl 25 mg tablet 25 mg PO HS 06/18/22 06/18/22 hyoscyamine sulfate 0.125 mg 0.125 mg PO QID PRN Abdominal Pain 06/18/22 06/18/22 disintegrating tablet insulin regular human 100 unit/mL 0 unit subcut BID PRN Hyperglycemia 06/18/22 06/18/22 (3 mL) subcutaneous pen (Novolin R FlexPen) lactulose 20 gram/30 mL oral 30 g PO TID 06/18/22 06/18/22 solution levothyroxine 100 mcg tablet 100 mcg PO Q2D 06/18/22 06/18/22 paroxetine HCl 20 mg tablet 20 mg PO DAILY 06/18/22 06/18/22 propranolol 20 mg tablet 20 mg PO TID 06/18/22 06/18/22 rifaximin 550 mg tablet (Xifaxan) 550 mg PO BID 06/18/22 06/18/22 rosuvastatin 20 mg tablet 20 mg PO HS 06/18/22 06/18/22 Previous Rx's Medication Instructions Recorded levothyroxine 112 mcg tablet 112 mcg PO Q2D #45 tabs 02/24/22 chlorthalidone 25 mg tablet 25 mg PO DAILY #30 tabs 06/05/22 pen needle, diabetic 32 gauge x #300 ea 06/12/22" (BD Ultra-Fine Lani Pen Needle) blood-glucose sensor (FreeStyle #2 ea 06/18/22 Lisy 3 Sensor device) Results & Data (ED) Vital Signs Vital Signs - 24 hr 06/18/22 18:45 06/18/22 19:22 06/18/22 19:42 Temperature 36.9 C Temperature Source Temporal Artery Scan Pulse Rate 80 72 72 Pulse Rate from SpO2 Sensor Respiratory Rate 18 Respiratory Depth Normal Blood Pressure 131/58 L Blood Pressure Mean 82 Blood Pressure Position Sitting Pulse Oximetry 91 97 Oxygen Delivery Method Room Air Sepsis Recent Fever Within 48 Hours No Sepsis New/Unexplained Change in Mental Status No Sepsis Action Taken by Nursing No Action Required 06/18/22 19:19 06/18/22 19:30 06/18/22 19:44 Temperature Temperature Source Pulse Rate 74 72 75 Pulse Rate from SpO2 Sensor 73 72 75 Respiratory Rate 15 14 15 Respiratory Depth Blood Pressure Blood Pressure Mean Blood Pressure Position Pulse Oximetry 100 98 96 Oxygen Delivery Method Sepsis Recent Fever Within 48 Hours Sepsis New/Unexplained Change in Mental Status Sepsis Action Taken by Nursing 06/18/22 19:44 06/18/22 20:00 06/18/22 20:30 Temperature Temperature Source Pulse Rate 71 70 Pulse Rate from SpO2 Sensor 71 69 Respiratory Rate 14 13 Respiratory Depth Blood Pressure 122/61 Blood Pressure Mean 81 Blood Pressure Position Pulse Oximetry 96 97 Oxygen Delivery Method Sepsis Recent Fever Within 48 Hours Sepsis New/Unexplained Change in Mental Status Sepsis Action Taken by Nursing 06/18/22 23:23 Temperature Temperature Source Pulse Rate 69 Pulse Rate from SpO2 Sensor Respiratory Rate Respiratory Depth Blood Pressure Blood Pressure Mean Blood Pressure Position Pulse Oximetry Oxygen Delivery Method Sepsis Recent Fever Within 48 Hours Sepsis New/Unexplained Change in Mental Status Sepsis Action Taken by Nursing Laboratory Data 06/18/22 19:03 06/18/22 19:03 Lab Results 06/18/22 06/18/22 06/18/22 Range/Units 19:03 19:03 19:03 WBC 5.67 (4.8-10.8) K/ul RBC 3.19 L (4.20-5.40) M/uL Hgb 7.2 L (12.0-16.0) g/dl Hct 23.7 L (37.0-47.0) % MCV 74.3 L (80.0-100.0) fL MCH 22.6 L (25.0-34.0) pg MCHC 30.4 L (32.0-36.0) g/dL RDW Std Deviation 50.4 H (36.4-46.3) fL RDW Coeff of Charlee 18.7 H (11.5-14.5) % Plt Count 226 (130-400) K/uL MPV 10.1 (9.4-12.4) fL Immature Gran % (Auto) 0.2 % Neut % (Auto) 49.4 % Lymph % (Auto) 23.1 % Winkler % (Auto) 19.2 % Eos % (Auto) 7.2 % Baso % (Auto) 0.9 % Reticulocyte % (Auto) 2.6 H (0.5-2.0) % Neut # (Auto) 2.80 (1.40-6.50) K/uL Lymph # (Auto) 1.31 (1.2-3.4) K/uL Winkler # (Auto) 1.09 H (0.11-0.59) K/uL Eos # (Auto) 0.41 (0-0.50) K/uL Baso # (Auto) 0.05 (0-0.2) K/uL Reticulocyte # 0.08 (0.02-0.10) 10^6/uL Immature Gran # (Auto) 0.01 (0.01-0.20) K/uL Polychromasia 1+ Hypochromasia Present Tear Drop Cells 1+ Ovalocytes 1+ Acanthocytes (Spur) 1+ Schistocytes 1+ PT 13.4 H (9.0-12.0) Seconds INR 1.3 H (0.9-1.1) Sodium 138 (136-145) mmol/L Potassium 3.9 (3.5-5.1) mmol/L Chloride 106 (98-107) mmol/L Carbon Dioxide 25 (21-32) mmol/L Anion Gap 7 (3-11) BUN 12 (6-23) mg/dl Creatinine 0.98 (0.6-1.2) mg/dl Est Cr Clr Drug Dosing 52.6 ml/min Est GFR ( Amer) 68.2 ml/min Est GFR (Non-Af Amer) 58.9 ml/min BUN/Creatinine Ratio 12.2 (10-20) Glucose 121 H (70-99(Fasting)) mg/dl Calcium 10.6 H (8.6-10.3) mg/dl Phosphorus 2.6 (2.5-4.9) mg/dl Magnesium 1.7 (1.7-2.4) mg/dl Iron 29 L (35-150) mcg/dl Unsaturated IBC 428 H (155-355) mcg/dl Transferrin 365 H (200-360) mg/dl Ferritin 8.8 (8-388) ng/ml Total Bilirubin 5.0 H (0.2-1.0) mg/dl Direct Bilirubin 0.9 H (0-0.2) mg/dl AST 42 H (13-39) U/L ALT 23 (7-52) U/L Alkaline Phosphatase 158 H (34-104) U/L Troponin I High Sens 7.5 (0-14) pg/ml Total Protein 5.5 L (6.0-8.3) gm/dl Albumin 3.4 (3.4-5.0) gm/dl Globulin 2.1 L (2.5-4.0) gm/dl Albumin/Globulin Ratio 1.6 (0.9-2) Lipase 94 H (11-82) U/L Urine Color Urine Appearance (Clear) Urine pH (4.5-7.5) Ur Specific [place] (1.000-1.030) Urine Protein (Negative) Urine Glucose (UA) (Negative) Urine Ketones (Negative) Urine Blood (Negative) Urine Nitrite (Negative) Urine Bilirubin (Negative) Urine Urobilinogen (Negative) Ur Leukocyte Esterase (Negative) Adenovirus (PCR) (NotDetected) B. pertussis DNA (PCR) (NotDetected) B.parapertussis DNA PCR (NotDetected) C. pneumoniae DNA (PCR) (NotDetected) Coronavirus OC43 (PCR) (NotDetected) Coronavirus HKU1 (PCR) (NotDetected) Coronavirus 229E (PCR) (NotDetected) SARS-CoV-2 (PCR) (NotDetected) Coronavirus NL63 (PCR) (NotDetected) Human Metapneumovir PCR (NotDetected) Influenza Type A (PCR) (NotDetected) Influenza Type B (PCR) (NotDetected) M. pneumoniae (PCR) (NotDetected) Parainfluenza 1 (PCR) (NotDetected) Parainfluenza 2 (PCR) (NotDetected) Parainfluenza 3 (PCR) (NotDetected) Parainfluenza 4 (PCR) (NotDetected) RSV (PCR) (NotDetected) Entero/Rhino (PCR) (NotDetected) 06/18/22 06/18/22 06/18/22 Range/Units 19:14 19:50 20:40 WBC (4.8-10.8) K/ul RBC (4.20-5.40) M/uL Hgb (12.0-16.0) g/dl Hct (37.0-47.0) % MCV (80.0-100.0) fL MCH (25.0-34.0) pg MCHC (32.0-36.0) g/dL RDW Std Deviation (36.4-46.3) fL RDW Coeff of Charlee (11.5-14.5) % Plt Count (130-400) K/uL MPV (9.4-12.4) fL Immature Gran % (Auto) % Neut % (Auto) % Lymph % (Auto) % Winkler % (Auto) % Eos % (Auto) % Baso % (Auto) % Reticulocyte % (Auto) (0.5-2.0) % Neut # (Auto) (1.40-6.50) K/uL Lymph # (Auto) (1.2-3.4) K/uL Winkler # (Auto) (0.11-0.59) K/uL Eos # (Auto) (0-0.50) K/uL Baso # (Auto) (0-0.2) K/uL Reticulocyte # (0.02-0.10) 10^6/uL Immature Gran # (Auto) (0.01-0.20) K/uL Polychromasia Hypochromasia Tear Drop Cells Ovalocytes Acanthocytes (Spur) Schistocytes PT (9.0-12.0) Seconds INR (0.9-1.1) Sodium (136-145) mmol/L Potassium (3.5-5.1) mmol/L Chloride (98-107) mmol/L Carbon Dioxide (21-32) mmol/L Anion Gap (3-11) BUN (6-23) mg/dl Creatinine (0.6-1.2) mg/dl Est Cr Clr Drug Dosing ml/min Est GFR ( Amer) ml/min Est GFR (Non-Af Amer) ml/min BUN/Creatinine Ratio (10-20) Glucose (70-99(Fasting)) mg/dl Calcium (8.6-10.3) mg/dl Phosphorus Cancelled (2.5-4.9) mg/dl Magnesium Cancelled (1.7-2.4) mg/dl Iron (35-150) mcg/dl Unsaturated IBC (155-355) mcg/dl Transferrin (200-360) mg/dl Ferritin (8-388) ng/ml Total Bilirubin (0.2-1.0) mg/dl Direct Bilirubin Cancelled (0-0.2) mg/dl AST (13-39) U/L ALT (7-52) U/L Alkaline Phosphatase (34-104) U/L Troponin I High Sens (0-14) pg/ml Total Protein (6.0-8.3) gm/dl Albumin (3.4-5.0) gm/dl Globulin (2.5-4.0) gm/dl Albumin/Globulin Ratio (0.9-2) Lipase (11-82) U/L Urine Color Yellow Urine Appearance Clear (Clear) Urine pH 7.0 (4.5-7.5) Ur Specific [place] 1.009 (1.000-1.030) Urine Protein Negative (Negative) Urine Glucose (UA) Negative (Negative) Urine Ketones Negative (Negative) Urine Blood Negative (Negative) Urine Nitrite Negative (Negative) Urine Bilirubin Negative (Negative) Urine Urobilinogen Negative (Negative) Ur Leukocyte Esterase Negative (Negative) Adenovirus (PCR) Not Detected (NotDetected) B. pertussis DNA (PCR) Not Detected (NotDetected) B.parapertussis DNA PCR Not Detected (NotDetected) C. pneumoniae DNA (PCR) Not Detected (NotDetected) Coronavirus OC43 (PCR) Not Detected (NotDetected) Coronavirus HKU1 (PCR) Not Detected (NotDetected) Coronavirus 229E (PCR) Not Detected (NotDetected) SARS-CoV-2 (PCR) Not Detected (NotDetected) Coronavirus NL63 (PCR) Not Detected (NotDetected) Human Metapneumovir PCR Not Detected (NotDetected) Influenza Type A (PCR) Not Detected (NotDetected) Influenza Type B (PCR) Not Detected (NotDetected) M. pneumoniae (PCR) Not Detected (NotDetected) Parainfluenza 1 (PCR) Not Detected (NotDetected) Parainfluenza 2 (PCR) Not Detected (NotDetected) Parainfluenza 3 (PCR) Not Detected (NotDetected) Parainfluenza 4 (PCR) Not Detected (NotDetected) RSV (PCR) Not Detected (NotDetected) Entero/Rhino (PCR) Not Detected (NotDetected) Administered Medications Discontinued Medications Dicyclomine HCl (Dicyclomine Hcl 10 Mg/Ml 2 Ml Amp/Vial) 20 mg IM NOW ONE Stop: 06/18/22 19:24 Last Admin: 06/18/22 19:39 Dose: 20 mg Documented By: YAQUELIN Sodium Chloride (Nss 1000ml) 1,000 mls @ 999 mls/hr IV .Q1H1M STA Stop: 06/18/22 19:48 Last Infusion: 06/18/22 20:45 Dose: 0 mls/hr Documented By: Admin: 06/18/22 19:00 Dose: 999 mls/hr Documented By: JUAN DIEGO Famotidine (Pepcid 20mg Iv Push) 20 mg in 5 mls @ 2.5 mls/min IV NOW STA Stop: 06/18/22 19:15 Last Admin: 06/18/22 19:41 Dose: 2.5 mls/min Documented By: YAQUELIN Ioversol (Optiray 350 100ml) 73 ml IV ONCE ONE Stop: 06/18/22 20:48 Last Admin: 06/18/22 20:48 Dose: 73 ml Documented By: PLACIDO Morphine Sulfate (Morphine Sulfate 2 Mg/Ml Carp) 1 mg IV NOW STA Stop: 06/18/22 21:07 Last Admin: 06/18/22 21:12 Dose: 1 mg Documented By: YAQUELIN Ondansetron HCl (Ondansetron Inj 2 Mg/Ml 2 Ml Vial) 4 mg IV NOW STA Stop: 06/18/22 19:15 Last Admin: 06/18/22 19:39 Dose: 4 mg Documented By: YAQUELIN Sucralfate (Sucralfate 1 Gm/10 Ml Udc) 1 gm PO NOW STA Stop: 06/18/22 22:10 Last Admin: 06/18/22 22:15 Dose: 1 gm Documented By: YAQUELIN Imaging Data Radiologist's Impression: Abdomen/Pelvis CT 06/18/22 18:48 Exam(s): CT ABDOMEN + PELVIS With Contrast EXAM: CT Abdomen and Pelvis With Intravenous Contrast CLINICAL HISTORY: Reason for exam: Abd pain. TECHNIQUE: Axial computed tomography images of the abdomen and pelvis with intravenous contrast. Automated exposure control was utilized for the study. A dose lowering technique was utilized adhering to the principles of ALARA. CONTRAST: 83 cc of Optiray 350 COMPARISON: CT abdomen on 12/23/2021 FINDINGS: Lung bases: Unremarkable. No mass. No consolidation. ABDOMEN: Liver: Cirrhotic liver. Gallbladder and bile ducts: Prior cholecystectomy. Probable postcholecystectomy ductal ectasia. Pancreas: Unremarkable. No mass. No ductal dilation. Spleen: Splenomegaly. Adrenals: Unremarkable. No mass. Kidneys and ureters: Unremarkable. No hydronephrosis or obstructing stone. Stomach and bowel: Diverticulosis without definite evidence of diverticulitis. Wall thickening of the colon may be at least in part secondary to underdistention. Colitis is not excluded. Evaluation of the stomach is limited by underdistention. PELVIS: Appendix: Appendix is not definitely visualized on this exam. Bladder: Mild prominence of the bladder wall may be secondary to under distention. Reproductive: Prior hysterectomy. ABDOMEN and PELVIS: Intraperitoneal space: Moderate ascites. Wall thickening of the small bowel loops may be secondary to under distention versus ascites versus enteritis. No free air. Bones/joints: Stable superior endplate compression deformity of the L4 vertebral body. Degenerative changes of the spine. No dislocation. Soft tissues: Unremarkable. Vasculature: Phleboliths in the pelvis. Atherosclerotic changes of the vasculature. No aortic aneurysm or dissection. Lymph nodes: Unremarkable. No enlarged lymph nodes. IMPRESSION: 1. Cirrhotic liver. 2. Moderate ascites and splenomegaly. 3. Wall thickening of the colon may be at least in part secondary to underdistention. Colitis is not excluded. 4. Wall thickening of the small bowel loops may be secondary to under distention versus ascites versus enteritis. Electronically signed by: Werner Gustafson M.D. 06/18/22 21:42 PM Discharge Plan Visit Data Chief Complaint: Abdominal Pain Stated Complaint: ABDOMINAL PAIN, VOMITING, FATIGUE ED Provider: Jan Padron Discharge Problem: Intractable nausea and vomiting, Liver cirrhosis secondary to DAILY, Chronic anemia Forms Stand Alone Forms: [facility] Prescriptions Prescriptions: No Action levothyroxine 112 mcg tablet 112 mcg PO Q2D Qty: 45 1RF Rx Instructions: 112 mcg PO every other day, alternate with 100 mcg. Take 1st thing in the morning on an empty stomach 30 min prior to any other oral intake. (DME) pen needle, diabetic [BD Ultra-Fine Lani Pen Needle] 32 gauge x 5/32" needle See Rx Instructions .Route Qty: 300 3RF Rx Instructions: Use 3 per day with insulin injection (DME) FreeStyle Lisy 3 Sensor Device See Rx Instructions .ROUTE Qty: 2 11RF Rx Instructions: Change every 14 days chlorthalidone 25 mg tablet 25 mg PO DAILY Qty: 30 5RF omeprazole 40 mg Capsule,Delayed Release(Dr/Ec) 40 mg PO QAM potassium chloride [Klor-Con M20] 20 mEq tablet,ER particles/crystals 20 meq PO BID magnesium oxide 500 mg Tablet 500 mg PO QAM propranolol 20 mg tablet 20 mg PO TID Trulicity 3 mg/0.5 mL pen injector 3 mg subcut WK hydroxyzine HCl 25 mg tablet 25 mg PO HS lactulose 20 gram/30 mL solution 30 g PO TID Novolin R FlexPen 100 unit/mL (3 mL) Insulin Pen 0 unit SUBCUT BID PRN (Reason: Hyperglycemia) levothyroxine 100 mcg tablet 100 mcg PO Q2D Rx Instructions: ALTERNATE EVERY OTHER DAY WITH 112MCG. paroxetine HCl 20 mg tablet 20 mg PO DAILY Xifaxan 550 mg tablet 550 mg PO BID Rx Instructions: BEGIN 06/12/22 X 30 DAYS hyoscyamine sulfate 0.125 mg tablet,disintegrating 0.125 mg PO QID PRN (Reason: Abdominal Pain) rosuvastatin 20 mg tablet 20 mg PO HS Baqsimi 3 mg/actuation spray,non-aerosol 3 mg INTRANASAL .UD PRN (Reason: Hypoglycemia) Women's 50 Plus Multivitamin 400 mcg-500 mg calcium-20 mcg Tablet 1 tab PO QAM Referrals Referrals: Lakisha Arriaga [Primary Care Provider] -
[2022-06-18] MEDS ORDERED: DICYCLOMINE HCL 10 MG/ML 2 ML AMP/VIAL IM ONE (19:23)
[2022-06-18 19:26] LABS: Basophils # (auto) 0.05 K/uL (0-0.2); Basophils % (auto) 0.9 %; Eosinophils # (auto) 0.41 K/uL (0-0.50); Eosinophils % (auto) 7.2 %; Hematocrit (blood only) 23.7 % (37.0-47.0); Hemoglobin 7.2 g/dl (12.0-16.0); Immature Granulocytes # (auto) 0.01 K/uL (0.01-0.20); Immature Granulocytes % (auto) 0.2 %; Lymphocytes # (auto) 1.31 K/uL (1.2-3.4); Lymphocytes % (auto) 23.1 %; Mean Corpuscular Hemoglobin 22.6 pg (25.0-34.0); Mean Corpuscular Hgb Conc 30.4 g/dL (32.0-36.0); Mean Corpuscular Volume 74.3 fL (80.0-100.0); Mean Platelet Volume 10.1 fL (9.4-12.4); Monocytes # (auto) 1.09 K/uL (0.11-0.59); Monocytes % (auto) 19.2 %; Neutrophils % (auto) 49.4 %; Platelet Count 226 K/uL (130-400); RDW Coefficient of Variation 18.7 % (11.5-14.5); RDW Standard Deviation 50.4 fL (36.4-46.3); Red Blood Count 3.19 M/uL (4.20-5.40); White Blood Count 5.67 K/ul (4.8-10.8)
[2022-06-18 19:42] LABS: Albumin Globulin Ratio 1.6 (0.9-2); Albumin Level 3.4 gm/dl (3.4-5.0); BUN Creatinine Ratio 12.2 (10-20); Calcium 10.6 mg/dl (8.6-10.3); Creatinine Clr Calc Pharmacy 52.6 ml/min; Est GFR (African American) 68.2 ml/min; Est GFR (Non-African American) 58.9 ml/min; Globulin 2.1 gm/dl (2.5-4.0); Potassium 3.9 mmol/L (3.5-5.1); Total Protein 5.5 gm/dl (6.0-8.3)
[2022-06-18 19:45] LABS: Acanthocytes 1+; Hypochromasia Present; Ovalocytes 1+; Polychromasia 1+; Schistocytes 1+; Tear Drop Cells 1+
[2022-06-18 19:54] LABS: INR 1.3 (0.9-1.1); Prothrombin Time 13.4 Seconds (9.0-12.0)
[2022-06-18 19:55] LABS: Bilirubin Direct 0.9 mg/dl (0-0.2); Magnesium 1.7 mg/dl (1.7-2.4); Phosphorus 2.6 mg/dl (2.5-4.9)
[2022-06-18 20:01] LABS: Troponin I High Sensitivity 7.5 pg/ml (0-14)
[2022-06-18] MEDS ORDERED: OPTIRAY 350 100ml IV ONE (20:47)
[2022-06-18 21:00] LABS: Appearance Urine Clear (Clear); Bilirubin Urine Negative (Negative); Blood Urine Negative (Negative); Color Urine Yellow; Glucose Urine UA Negative (Negative); Ketones Urine Negative (Negative); Leukocyte Esterase Urine Negative (Negative); Nitrite Urine Negative (Negative); Protein Urine Negative (Negative); Specific Gravity Urine 1.009 (1.000-1.030); Urobilinogen Urine Negative (Negative)
[2022-06-18] MEDS ORDERED: MoRPHine SULFATE 2 MG/ML CARP IV STA (21:06)
[2022-06-18 21:07] LABS: Adenovirus PCR Not Detected (NotDetected); Bordetella parapertussis PCR Not Detected (NotDetected); Bordetella pertussis PCR Not Detected (NotDetected); Chlamydia pneumoniae PCR Not Detected (NotDetected); Coronavirus 229E PCR Not Detected (NotDetected); Coronavirus CoV-2 (COVID19)PCR Not Detected (NotDetected); Coronavirus HKU1 PCR Not Detected (NotDetected); Coronavirus NL63 PCR Not Detected (NotDetected); Coronavirus OC43PCR Not Detected (NotDetected); Human Metapneumovirus PCR Not Detected (NotDetected); Influenza A PCR Not Detected (NotDetected); Influenza B PCR Not Detected (NotDetected); Mycoplasma pneumoniae PCR Not Detected (NotDetected); Parainfluenza Virus 1 PCR Not Detected (NotDetected); Parainfluenza Virus 2 PCR Not Detected (NotDetected); Parainfluenza Virus 3 PCR Not Detected (NotDetected); Parainfluenza Virus 4 PCR Not Detected (NotDetected); Respiratory Syncytial VirusPCR Not Detected (NotDetected); Rhinovirus/Enterovirus PCR Not Detected (NotDetected)
--- NOTE | 2022-06-18 21:42 | CT Scan Report ---
Exam(s): CT ABDOMEN + PELVIS With Contrast EXAM: CT Abdomen and Pelvis With Intravenous Contrast CLINICAL HISTORY: Reason for exam: Abd pain. TECHNIQUE: Axial computed tomography images of the abdomen and pelvis with intravenous contrast. Automated exposure control was utilized for the study. A dose lowering technique was utilized adhering to the principles of ALARA. CONTRAST: 83 cc of Optiray 350 COMPARISON: CT abdomen on 12/23/2021 FINDINGS: Lung bases: Unremarkable. No mass. No consolidation. ABDOMEN: Liver: Cirrhotic liver. Gallbladder and bile ducts: Prior cholecystectomy. Probable postcholecystectomy ductal ectasia. Pancreas: Unremarkable. No mass. No ductal dilation. Spleen: Splenomegaly. Adrenals: Unremarkable. No mass. Kidneys and ureters: Unremarkable. No hydronephrosis or obstructing stone. Stomach and bowel: Diverticulosis without definite evidence of diverticulitis. Wall thickening of the colon may be at least in part secondary to underdistention. Colitis is not excluded. Evaluation of the stomach is limited by underdistention. PELVIS: Appendix: Appendix is not definitely visualized on this exam. Bladder: Mild prominence of the bladder wall may be secondary to under distention. Reproductive: Prior hysterectomy. ABDOMEN and PELVIS: Intraperitoneal space: Moderate ascites. Wall thickening of the small bowel loops may be secondary to under distention versus ascites versus enteritis. No free air. Bones/joints: Stable superior endplate compression deformity of the L4 vertebral body. Degenerative changes of the spine. No dislocation. Soft tissues: Unremarkable. Vasculature: Phleboliths in the pelvis. Atherosclerotic changes of the vasculature. No aortic aneurysm or dissection. Lymph nodes: Unremarkable. No enlarged lymph nodes. IMPRESSION: 1. Cirrhotic liver. 2. Moderate ascites and splenomegaly. 3. Wall thickening of the colon may be at least in part secondary to underdistention. Colitis is not excluded. 4. Wall thickening of the small bowel loops may be secondary to under distention versus ascites versus enteritis. Electronically signed by: Werner Gustafson M.D. 06/18/22 21:42 PM
[2022-06-18] MEDS ORDERED: SUCRALFATE 1 GM/10 ML UDC PO STA (22:09)
[2022-06-18 23:03] LABS: Reticulocyte % 2.6 % (0.5-2.0); Reticulocytes # 0.08 10^6/uL (0.02-0.10)
[2022-06-18 23:32] LABS: Ferritin 8.8 ng/ml (8-388)
--- NOTE | 2022-06-19 00:36 | History & Physical Report ---
Date of Service June 19, 2022 Assessment & Plan (1) Liver cirrhosis secondary to DAILY: Plan: 67 yo female PMHx DAILY cirrhosis on liver transplant list, hepatic encephalopathy, kelly esophageus, DM2, HLD, hypothyroidism, anxiety, and depression presents with 1 week of worsening abdominal pain, distention, nausea, vomiting. #Liver Cirrhosis 2/2 DAILY #Ascites -presented with 1 wk worsening abd pain, distention, N/V. Suspect viral enteritis vs worsening liver disease. No leukocytosis. Biofire neg. Vitals normal. INR 1.3, stable. ALP 158, chronic. Normal AST, ALT. Total bili 5, worsening. -CT A/P: cirrhotic liver, moderate ascites and splenomegaly, colonic wall thickening -cont. chlorthalidone, hyoscyamine, lactulose, rifaximin, PPI. -Zofran for nausea. -Dilaudid for pain. Avoid acetaminophen. -GI consulted -PT/INR, cmp in am #Acute on chronic anemia -Hgb 7.2 on admission, MCV 74; has been steadily declining over the past few months. Denies signs of active bleed. Suspect possible upper GI bleed 2/2 varices vs iron deficiency. Scheduled for EGD in July. Pt reports colonoscopy 2 months ago normal. -iron studies pending -FOBT ordered -protonix bid, NPO -GI consulted for possible inpatient EGD -no chemical DVT ppx -avoid NSAIDs -cbc in am #DM2 -hold home meds -placed on SSI #Hypothyroidism -cont. levothyroxine #GERD -cont. PPI #HLD -cont. statin #Anxiety #Depression -cont. paroxetine, hydroxyzine DVT ppx: SCDs FEN/GI: NPO Code Status: DNR/DNI Dispo: PCU, obs (2) Intractable nausea and vomiting: (3) Chronic anemia: (4) Hyperlipidemia: (5) Hypertension: (6) Diabetes mellitus type 2 with complications: (7) Elevated bilirubin: (8) Hypothyroidism: (9) Anxiety: History of Present Illness Chief Complaint: nausea, vomiting Primary Care Provider: Lakisha Arriaga 67 yo female PMHx DAILY cirrhosis on liver transplant list, hepatic encephalopathy, kelly esophageus, DM2, HLD, hypothyroidism, anxiety, and depression presents with 1 week of worsening abdominal pain, distention, nausea, vomiting. Pain mostly in LLQ with radiation to epigastric area. Associated fatigue and generalized weakness. Denies fever, cough, congestion, chest pain, sob, diarrhea, dysuria, constipation, blood/black in stool or vomit. Compliant with home medications. She does note that there has been a decline in her Hgb over the past few months. She is scheduled for an EGD in July 2022. Follows with [facility]. Allergies Allergy/AdvReac Type Severity Reaction Status Date / Time bee venom protein (honey bee) Allergy Severe Anaphylaxis Verified 06/18/22 22:18 Influenza Virus Vaccines Allergy Severe Anaphylaxis Verified 06/18/22 22:18 tetracycline AdvReac Severe Severe Verified 06/18/22 22:18 stomach pains Home Medications Medication Instructions Recorded Confirmed Type drgrnqyk-pax-tkiez ac 400 1 tab PO QAM 07/15/21 06/18/22 History mcg-calcium carb 500 mg-vit K1 20 mcg tablet (Women's 50 Plus Multivitamin) omeprazole 40 mg capsule,delayed 40 mg PO QAM 11/04/21 06/18/22 History release potassium chloride 20 mEq 20 meq PO BID 12/22/21 06/18/22 History tablet,extended release(part/cryst) (Klor-Con M) magnesium oxide 500 mg tablet 500 mg PO QAM 01/22/22 06/18/22 History levothyroxine 112 mcg tablet 112 mcg PO Q2D #45 tabs 02/24/22 06/18/22 Rx chlorthalidone 25 mg tablet 25 mg PO DAILY #30 tabs 06/05/22 06/18/22 Rx pen needle, diabetic 32 gauge x #300 ea 06/12/22 Rx 5/32" (BD Ultra-Fine Lani Pen Needle) blood-glucose sensor (FreeStyle #2 ea 06/18/22 06/18/22 Rx Lisy 3 Sensor device) dulaglutide 3 mg/0.5 mL 3 mg subcut WK 06/18/22 06/18/22 History subcutaneous pen injector ([facility]) glucagon 3 mg/actuation nasal 3 mg intranasal .UD PRN 06/18/22 06/18/22 History spray (Baqsimi) Hypoglycemia hydroxyzine HCl 25 mg tablet 25 mg PO HS 06/18/22 06/18/22 History hyoscyamine sulfate 0.125 mg 0.125 mg PO QID PRN Abdominal Pain 06/18/2206/18 History disintegrating tablet insulin regular human 100 unit/mL 0 unit subcut BID PRN Hyperglycemia 06/18/22 06/18/22 History (3 mL) subcutaneous pen (Novolin R FlexPen) lactulose 20 gram/30 mL oral 30 g PO TID 06/18/22 06/18/22 History solution levothyroxine 100 mcg tablet 100 mcg PO Q2D 06/18/22 06/18/22 History paroxetine HCl 20 mg tablet 20 mg PO DAILY 06/18/22 06/18/22 History propranolol 20 mg tablet 20 mg PO TID 06/18/22 06/18/22 History rifaximin 550 mg tablet (Xifaxan) 550 mg PO BID 06/18/22 06/18/22 History rosuvastatin 20 mg tablet 20 mg PO HS 06/18/22 06/18/22 History Past Med/Surg History Medical History Acute kidney injury Anemia HX Anxiety and depression Arthritis Kelly esophagus Kelly's esophagus with esophagitis Benign essential tremor Chronic diarrhea SOMETIMES - when takes lactulose 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 Colitis with rectal bleeding Depression Diabetes mellitus, type 2 Diverticulosis GERD (gastroesophageal reflux disease) Heel spur B/L feet Hiatal hernia History of colon polyps BENIGN History of fractured vertebra CURRENT, HX FALL JULY 2021 - FELL OF THE TOILET - NO INTERVENTION AT PRESENT/ [facility] FOR TO DISCUSS TX OPTIONS - POTENTIAL BACK BRACE History of kidney stones Hyperlipidemia Hypertension Hypothyroidism Hypothyroidism Liver cirrhosis secondary to DAILY Liver cirrhosis secondary to DAILY DAILY (nonalcoholic steatohepatitis) Portal hypertension Seasonal allergies Spleen enlarged MONITORS - PT REPORTS FROM THE DAILY Stucco keratoses Temporomandibular joint disorder NO LOCKING/WEARS DETECTIVE Thyroid disease Surgical History H/O thumb surgery RT/LEFT JOINT REPAIR H/O total hysterectomy History of appendectomy History of arthroscopy of knee Left Knee - meniscus/cartilage History of colonoscopy History of cystoscopy History of esophagogastroduodenoscopy (EGD) History of tonsillectomy and adenoidectomy History of tooth extraction Hx of cholecystectomy Family History Brother Coronary heart disease Heart disease Mother Family history of diabetes mellitus Hypertension Heart disease Sister Family history of diabetes mellitus Son Family history of diabetes mellitus Father Family hx of colon cancer Hearing loss Hypertension Cancer Heart disease Grandfather (Maternal) Family hx of colon cancer Other No family history of adverse response to anesthesia No family history of bleeding disorder Social History Smoking Status: Never smoker Second Hand Exposure: No; Hx Alcohol Use: No Hx Substance Use: No Preferred Language: Persian Communication Ability: 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 AOx3. Vitals as above. HEENT: Mild jaundice.Dry mucous membranes.Clear oropharynx. Neck: Supple without lymphadenopathy or thyromegaly. Trachea midline. Lungs: Clear to auscultation bilaterally with good effort. Cardiac: Regular rate and rhythm.No murmurs.1+ LE pitting edema bilaterally. 2+ distal peripheral pulses. Abdomen: Bowel sounds present. Soft. Mildly distended. Mild diffuse tenderness predominantly in LLQ and RUQ. Neg murphys.No guarding. MSK: No cyanosis or clubbing. Extremities motor strength 5/5. Skin: No rashes, warm, dry. Neurologic: no focal deficits. PERRL. Results & Data Results & Data Vital Signs (Past 12 Hours) Vital Signs Temp Pulse Resp BP Pulse Ox O2 Del Method 06/18/22 23:23 69 06/18/22 20:30 70 13 97 06/18/22 20:00 71 14 96 06/18/22 19:44 122/61 06/18/22 19:44 75 15 96 06/18/22 19:30 72 14 98 06/18/22 19:19 74 15 100 06/18/22 19:42 72 97 06/18/22 19:22 72 06/18/22 18:45 36.9 C 80 18 131/58 L 91 Room Air Laboratory Results Laboratory Results WBC 5.67 K/ul (4.8-10.8) 06/18/22 19:03 RBC 3.19 M/uL (4.20-5.40) L 06/18/22 19:03 Hgb 7.2 g/dl (12.0-16.0) L 06/18/22 19:03 Hct 23.7 % (37.0-47.0) L 06/18/22 19:03 MCV 74.3 fL (80.0-100.0) L 06/18/22 19:03 MCH 22.6 pg (25.0-34.0) L 06/18/22 19:03 MCHC 30.4 g/dL (32.0-36.0) L 06/18/22 19:03 RDW Std Deviation 50.4 fL (36.4-46.3) H 06/18/22 19:03 RDW Coeff of Charlee 18.7 % (11.5-14.5) H 06/18/22 19:03 Plt Count 226 K/uL (130-400) 06/18/22 19:03 MPV 10.1 fL (9.4-12.4) 06/18/22 19:03 Immature Gran % (Auto) 0.2 % 06/18/22 19:03 Neut % (Auto) 49.4 % 06/18/22 19:03 Lymph % (Auto) 23.1 % 06/18/22 19:03 Ralls % (Auto) 19.2 % 06/18/22 19:03 Eos % (Auto) 7.2 % 06/18/22 19:03 Baso % (Auto) 0.9 % 06/18/22 19:03 Reticulocyte % (Auto) 2.6 % (0.5-2.0) H 06/18/22 19:03 Neut # (Auto) 2.80 K/uL (1.40-6.50) 06/18/22 19:03 Lymph # (Auto) 1.31 K/uL (1.2-3.4) 06/18/22 19:03 Ralls # (Auto) 1.09 K/uL (0.11-0.59) H 06/18/22 19:03 Eos # (Auto) 0.41 K/uL (0-0.50) 06/18/22 19:03 Baso # (Auto) 0.05 K/uL (0-0.2) 06/18/22 19:03 Reticulocyte # 0.08 10^6/uL (0.02-0.10) 06/18/22 19:03 Immature Gran # (Auto) 0.01 K/uL (0.01-0.20) 06/18/22 19:03 Polychromasia 1+ 06/18/22 19:03 Hypochromasia Present 06/18/22 19:03 Tear Drop Cells 1+ 06/18/22 19:03 Ovalocytes 1+ 06/18/22 19:03 Acanthocytes (Spur) 1+ 06/18/22 19:03 Schistocytes 1+ 06/18/22 19:03 PT 13.4 Seconds (9.0-12.0) H 06/18/22 19:03 INR 1.3 (0.9-1.1) H 06/18/22 19:03 Sodium 138 mmol/L (136-145) 06/18/22 19:03 Potassium 3.9 mmol/L (3.5-5.1) 06/18/22 19:03 Chloride 106 mmol/L (98-107) 06/18/22 19:03 Carbon Dioxide 25 mmol/L (21-32) 06/18/22 19:03 Anion Gap 7 (3-11) 06/18/22 19:03 BUN 12 mg/dl (6-23) 06/18/22 19:03 Creatinine 0.98 mg/dl (0.6-1.2) 06/18/22 19:03 Est Cr Clr Drug Dosing 52.6 ml/min 06/18/22 19:03 Est GFR ( Amer) 68.2 ml/min 06/18/22 19:03 Est GFR (Non-Af Amer) 58.9 ml/min 06/18/22 19:03 BUN/Creatinine Ratio 12.2 (10-20) 06/18/22 19:03 Glucose 121 mg/dl (70-99(Fasting)) H 06/18/22 19:03 Calcium 10.6 mg/dl (8.6-10.3) H 06/18/22 19:03 Phosphorus Cancelled 06/18/22 19:14 Magnesium Cancelled 06/18/22 19:14 Iron 29 mcg/dl (35-150) L 06/18/22 19:03 Unsaturated IBC 428 mcg/dl (155-355) H 06/18/22 19:03 Transferrin 365 mg/dl (200-360) H 06/18/22 19:03 Ferritin 8.8 ng/ml (8-388) 06/18/22 19:03 Total Bilirubin 5.0 mg/dl (0.2-1.0) H 06/18/22 19:03 Direct Bilirubin Cancelled 06/18/22 19:14 AST 42 U/L (13-39) H 06/18/22 19:03 ALT 23 U/L (7-52) 06/18/22 19:03 Alkaline Phosphatase 158 U/L (34-104) H 06/18/22 19:03 Troponin I High Sens 7.5 pg/ml (0-14) 06/18/22 19:03 Total Protein 5.5 gm/dl (6.0-8.3) L 06/18/22 19:03 Albumin 3.4 gm/dl (3.4-5.0) 06/18/22 19:03 Globulin 2.1 gm/dl (2.5-4.0) L 06/18/22 19:03 Albumin/Globulin Ratio 1.6 (0.9-2) 06/18/22 19:03 Lipase 94 U/L (11-82) H 06/18/22 19:03 Urine Color Yellow 06/18/22 20:40 Urine Appearance Clear (Clear) 06/18/22 20:40 Urine pH 7.0 (4.5-7.5) 06/18/22 20:40 Ur Specific [place] 1.009 (1.000-1.030) 06/18/22 20:40 Urine Protein Negative (Negative) 06/18/22 20:40 Urine Glucose (UA) Negative (Negative) 06/18/22 20:40 Urine Ketones Negative (Negative) 06/18/22 20:40 Urine Blood Negative (Negative) 06/18/22 20:40 Urine Nitrite Negative (Negative) 06/18/22 20:40 Urine Bilirubin Negative (Negative) 06/18/22 20:40 Urine Urobilinogen Negative (Negative) 06/18/22 20:40 Ur Leukocyte Esterase Negative (Negative) 06/18/22 20:40 Adenovirus (PCR) Not Detected (NotDetected) 06/18/22 19:50 B. pertussis DNA (PCR) Not Detected (NotDetected) 06/18/22 19:50 B.parapertussis DNA PCR Not Detected (NotDetected) 06/18/22 19:50 C. pneumoniae DNA (PCR) Not Detected (NotDetected) 06/18/22 19:50 Coronavirus OC43 (PCR) Not Detected (NotDetected) 06/18/22 19:50 Coronavirus HKU1 (PCR) Not Detected (NotDetected) 06/18/22 19:50 Coronavirus 229E (PCR) Not Detected (NotDetected) 06/18/22 19:50 SARS-CoV-2 (PCR) Not Detected (NotDetected) 06/18/22 19:50 Coronavirus NL63 (PCR) Not Detected (NotDetected) 06/18/22 19:50 Human Metapneumovir PCR Not Detected (NotDetected) 06/18/22 19:50 Influenza Type A (PCR) Not Detected (NotDetected) 06/18/22 19:50 Influenza Type B (PCR) Not Detected (NotDetected) 06/18/22 19:50 M. pneumoniae (PCR) Not Detected (NotDetected) 06/18/22 19:50 Parainfluenza 1 (PCR) Not Detected (NotDetected) 06/18/22 19:50 Parainfluenza 2 (PCR) Not Detected (NotDetected) 06/18/22 19:50 Parainfluenza 3 (PCR) Not Detected (NotDetected) 06/18/22 19:50 Parainfluenza 4 (PCR) Not Detected (NotDetected) 06/18/22 19:50 RSV (PCR) Not Detected (NotDetected) 06/18/22 19:50 Entero/Rhino (PCR) Not Detected (NotDetected) 06/18/22 19:50 Impressions Abdomen/Pelvis CT 04/06/23 18:48 Exam(s): CT ABDOMEN + PELVIS With Contrast EXAM: CT Abdomen and Pelvis With Intravenous Contrast CLINICAL HISTORY: Reason for exam: Abd pain. TECHNIQUE: Axial computed tomography images of the abdomen and pelvis with intravenous contrast. Automated exposure control was utilized for the study. A dose lowering technique was utilized adhering to the principles of ALARA. CONTRAST: 83 cc of Optiray 350 COMPARISON: CT abdomen on 12/23/2021 FINDINGS: Lung bases: Unremarkable. No mass. No consolidation. ABDOMEN: Liver: Cirrhotic liver. Gallbladder and bile ducts: Prior cholecystectomy. Probable postcholecystectomy ductal ectasia. Pancreas: Unremarkable. No mass. No ductal dilation. Spleen: Splenomegaly. Adrenals: Unremarkable. No mass. Kidneys and ureters: Unremarkable. No hydronephrosis or obstructing stone. Stomach and bowel: Diverticulosis without definite evidence of diverticulitis. Wall thickening of the colon may be at least in part secondary to underdistention. Colitis is not excluded. Evaluation of the stomach is limited by underdistention. PELVIS: Appendix: Appendix is not definitely visualized on this exam. Bladder: Mild prominence of the bladder wall may be secondary to under distention. Reproductive: Prior hysterectomy. ABDOMEN and PELVIS: Intraperitoneal space: Moderate ascites. Wall thickening of the small bowel loops may be secondary to under distention versus ascites versus enteritis. No free air. Bones/joints: Stable superior endplate compression deformity of the L4 vertebral body. Degenerative changes of the spine. No dislocation. Soft tissues: Unremarkable. Vasculature: Phleboliths in the pelvis. Atherosclerotic changes of the vasculature. No aortic aneurysm or dissection. Lymph nodes: Unremarkable. No enlarged lymph nodes. IMPRESSION: 1. Cirrhotic liver. 2. Moderate ascites and splenomegaly. 3. Wall thickening of the colon may be at least in part secondary to underdistention. Colitis is not excluded. 4. Wall thickening of the small bowel loops may be secondary to under distention versus ascites versus enteritis. Electronically signed by: Werner Gustafson M.D. 06/18/22 21:42 PM Code Status & VTE Plan VTE Prophylaxis Plan VTE Prophylaxis will be ordered: Yes Supervising Physician Co-Signing Physician Notes PA Supervision Note: I personally saw and examined the patient. I verified all mcnamara points and agree with PGY-2 Gopal Koehler with the following exceptions and/or additions: Subjective: 67-year-old female past medical history significant for Daily ci rrhosis with portal hypertension and esophageal varices, DM 2, hypertension, hyperlipidemia, hypothyroidism presented to the ER for nausea and vomiting, upper abdominal discomfort. In the ER noted to have a hemoglobin of 7.2, indirect hyperbilirubinemia, CTAP with moderate ascites and small bowel/colon thickening (ascites versus enteritis). Patient received IV fluid bolus, as needed medications for nausea and pain, due to some ongoing nausea and due to abnormal lab work hospitalist service was consulted for admission. Physical exam: Vitals reviewed Gen: Alert and oriented, NAD HEENT: icteric sclerae, EOMI CV: RRR no mgr nl S1S2 Pulm: CTAB no wcr Abd: +BS soft NT moderately distended Ext: 1+ pitting edema bilateral LE, 2+ DP pulses Skin: no rashes, warm/dry Neuro: No focal neurologic deficits, alert and oriented, euthymic affect Labs, Rads, and ECG reviewed Assessment and Plan: Anemia: Differential includes blood loss, iron deficiency, anemia of chronic disease. Is to have EGD in July, will have GI consulted this admission to evaluate if patient should have endoscopy sooner given ongoing worsening anemia over the last several months. Iron studies suggest iron deficiency, Venofer Dockery 300 mg IV x1 given here. Repeat CBC in the morning. Transfuse if hemoglobin less than 7. Indirect hyperbilirubinemia: Suspected secondary to underlying hepatic disease Daily cirrhosis, hemoglobin has been drawn trending over the last several months rather than in the acute period. Not impossible that patient could have an element of hemolysis, hemolysis labs ordered and pending, though suspect much more likely to be due to slow trickle bleeding as compared to hemolytic anemia. Daily monitoring with CMP. Hypercalcemia: Patient with a chronic history of such, has followed with Dr. Lane in the past who suspects at least some degree of primary hyperparathyroidism, multifactorial with liver cirrhosis. Received IV fluids in the ER, very gentle IV fluids 80 cc/h x 500 cc given element of ascites. Repeat in the morning. Has been on Cinacalcet in the past for this. Daily cirrhosis: Patient has not had ascites in the past to her recollection, with moderate ascites on CTAP here, with reported about 2 weeks of increasing abdominal distention. WBC count normal, abdomen soft and nontender, no recent fevers, no altered mental status, no hypotension; low likelihood of SBP. Apprec iate GI consult, consider diagnostic/therapeutic paracentesis. Resident Activity Tracking Resident Involvement: Resident Care Provided Care Provided: Adult Hospital Medicine (4) Hyperlipidemia Hyperlipidemia type: unspecified Qualified Code(s): E78.5 - Hyperlipidemia, unspecified (5) Hypertension Hypertension type: primary hypertension Qualified Code(s): I10 - Essential (primary) hypertension (8) Hypothyroidism Hypothyroidism type: unspecified Qualified Code(s): E03.9 - Hypothyroidism, unspecified
[2022-06-19] MEDS ORDERED: DEXTROSE 50% 50 ML SYRINGE IV PRN (01:37)
[2022-06-19] MEDS ORDERED: GLUCAGON FOR INJ 1 MG VIAL SQ PRN (01:37)
[2022-06-19] MEDS ORDERED: GLUCOSE 10 TAB/TUBE PO PRN (01:37)
[2022-06-19] MEDS ORDERED: GLUCOSE 40% GEL 15 GM TUBE PO PRN (01:37)
[2022-06-19] MEDS ORDERED: CARBOHYDRATES FOR HYPOGLYCEMIA PO PRN (01:37)
[2022-06-19] MEDS ORDERED: SODIUM CHLORIDE 0.9% 1000ML 1,000 ML IV SCH (01:45)
[2022-06-19] MEDS: ONDANSETRON INJ 2 MG/ML 2 ML VIAL IV PRN ×2 (02:24→17:58)
[2022-06-19] MEDS: HYDROmorphone INJ 0.5 MG/0.5 ML SYR IV PRN ×3 (02:24→17:54)
--- NOTE | 2022-06-19 02:44 | Billing Data ---
Date of Service June 19, 2022 Coding Level of Care Code 60870 INT INP/OBS CARE
[2022-06-19] MEDS ORDERED: IRON SUCROSE 300 MG in SODIUM CHLORIDE 0.9% 250 ML IV ONE (03:00)
[2022-06-19] MEDS: LEVOTHYROXINE SODIUM 100 MCG TABLET PO SCH (06:04)
[2022-06-19] MEDS: INSULIN ASPART PER UNIT CHARGE SC SCH ×4 (06:04→23:29)
[2022-06-19 06:41] LABS: Reticulocyte % 2.6 % (0.5-2.0); Reticulocytes # 0.08 10^6/uL (0.02-0.10)
--- NOTE | 2022-06-19 08:05 | Hospitalist Progress Note ---
Date of Service June 19, 2022 Assessment & Plan (1) 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: Plan: 67yo female with a history of REBOLLAR cirrhosis (on transplant waitlist), portal hypertension, esophageal varices, hepatic encephalopathy, DM2, HLD, Moeller's esophagus, MDD, KAREN, and hypothyroidism presents with a one-week history of abdominal pain, bloating, nausea, and vomiting. Abdominal pain, nausea, vomiting, history of REBOLLAR cirrhosis Differential includes viral gastroenteritis, worsening cirrhosis, others VSS, patient afebrile, no leukocytosis, INR 1.3, alk phos 158, AST/ALT not elevated, Tbili 5.0 CT a/p: cirrhotic liver, moderate ascites, splenomegaly, colonic wall thickening Gastroenterology consulted, Continue chlorthalidone, hyoscyamine, lactulose, rifaximin, PPI, propranolol Low dose dilaudid for pain; avoid APAP, avoid NSAIDs; zofran for nausea Trend CMP, PT/INR [id number] iron deficiency anemia Hgb on admission 7.2, slowly worsening over the past few months; no sign of active bleeding; patient had a normal colonoscopy two months ago Differential includes UGIB +/- iron deficiency Iron studies consistent with iron deficiency anemia FOBT pending Continue protonix Avoid DVT chemoprophylaxis, avoid NSAIDs NPO pending possible EGD Trend daily CBC DM2 HbA1c 5.4% (12/2021); repeat ordered Patient's home regimen held on admission Continue BSG checks, sliding-scale insulin, hypoglycemic protocol HLD: continue rosuvastatin GERD: continue PPI MDD/KAREN: continue home paroxetine, hydroxyzine Hypothyroidism: continue home levothyroxine FEN: NPO pending GI evaluation, NSS @ 100mL/hr (x2 bags ordered) Code status: DNR/DNI DVT ppx: SCDs Consults: gastroenterology PT/OT: ordered Dispo: PCU (2) Intractable nausea and vomiting: (3) Chronic anemia: (4) Hyperlipidemia: (5) Hypertension: (6) Diabetes mellitus type 2 with complications: (7) Elevated bilirubin: (8) Hypothyroidism: (9) Anxiety: Admission and Anticipated Discharge Date Admission Date: June 19, 2022 Supervising Physician Co-Signing Physician Notes Resident Physician Supervision Note: I independently interviewed and examined the patient and verified the mcnamara history and physical, reviewed labs and image studies and agree with resident findings and care plan. Subjective Patient seen and evaluated at bedside this morning. Patient feels well overall, complaining only of persistent LLQ and RLQ pain radiating to the epigastrium. Denies CP, SOB, nausea, vomiting, and diarrhea. Review of Systems Review of Systems: See HPI Physical Exam Physical Exam: Constitutional: well-appearing, no acute distress CV: regular rhythm, no murmur appreciated, extremities well-perfused, 1+ LE pitting edema Resp: CTABL, no wheezes/rales/rhonchi appreciated, no increased work of breathing GI: soft, nondistended, mild LLQ/RLQ tenderness appreciated, no rebound, BS present Neuro: alert, oriented, no focal neurologic deficit appreciated Results & Data Results & Data Vital Signs (Past 12 Hours) Vital Signs Temp Pulse Pulse Resp BP BP Pulse Ox 06/19/22 02:08 72 06/19/22 02:08 06/19/22 02:08 06/19/22 03:03 36.7 C 77 18 110/49 L 96 06/19/22 01:30 36.6 C 70 18 120/71 93 06/19/22 01:00 72 13 95 06/19/22 00:30 72 13 95 06/19/22 00:30 132/65 06/19/22 00:00 70 16 95 06/19/22 00:00 123/59 L 06/18/22 23:30 72 16 95 06/18/22 23:30 124/52 L 06/18/22 23:30 124/52 L 06/18/22 23:00 70 10 L 96 06/18/22 23:00 125/68 06/18/22 22:30 70 15 98 06/18/22 22:30 142/67 H 06/18/22 22:00 72 12 97 06/18/22 22:00 124/64 06/18/22 21:30 73 17 97 06/18/22 21:30 124/67 06/18/22 21:12 119/57 L 06/18/22 21:12 74 14 99 06/18/22 21:11 75 15 06/18/22 23:23 69 06/18/22 20:30 70 13 97 O2 Del Method 06/19/22 02:08 06/19/22 02:08 Room Air 06/19/22 02:08 Room Air 06/19/22 03:03 Room Air 06/19/22 01:30 Room Air 06/19/22 01:00 06/19/22 00:30 06/19/22 00:30 06/19/22 00:00 06/19/22 00:00 06/18/22 23:30 06/18/22 23:30 06/18/22 23:30 06/18/22 23:00 06/18/22 23:00 06/18/22 22:30 06/18/22 22:30 06/18/22 22:00 06/18/22 22:00 06/18/22 21:30 06/18/22 21:30 06/18/22 21:12 06/18/22 21:12 06/18/22 21:11 06/18/22 23:23 06/18/22 20:30 Resident Activity Tracking Resident Involvement: Resident Care Provided Care Provided: Adult Hospital Medicine (4) Hyperlipidemia Hyperlipidemia type: unspecified Qualified Code(s): E78.5 - Hyperlipidemia, unspecified (5) Hypertension Hypertension type: primary hypertension Qualified Code(s): I10 - Essential (primary) hypertension (8) Hypothyroidism Hypothyroidism type: unspecified Qualified Code(s): E03.9 - Hypothyroidism, unspecified
[2022-06-19] MEDS: LACTULOSE SYRUP 30 GM/45 ML UDP PO SCH ×3 (08:41→20:04)
[2022-06-19] MEDS: CHLORTHALIDONE 25 MG TAB PO SCH (08:41)
[2022-06-19] MEDS: POTASSIUM CHLORIDE CRTAB 20 MEQ TABCR PO SCH ×2 (08:42→17:54)
[2022-06-19] MEDS: PROPRANOLOL HCL 20 MG TAB PO SCH ×3 (08:42→20:02)
[2022-06-19] MEDS: MAGNESIUM OXIDE 400 MG TAB PO SCH (08:42)
[2022-06-19] MEDS: rifAXIMin 550 MG TABLET PO SCH ×2 (08:42→20:03)
[2022-06-19] MEDS: PARoxetine HCL 20 MG TAB PO SCH (08:42)
[2022-06-19] MEDS: PANTOprazole 40 MG in SYRINGE 0 ML IV SCH ×2 (08:42→20:03)
[2022-06-19] MEDS ORDERED: LACTULOSE SYRUP 20 GM/30 ML UDC PO SCH (09:00)
[2022-06-19] MEDS: SODIUM CHLORIDE 0.9% 1000ML 1,000 ML IV SCH ×2 (11:37→22:47)
--- NOTE | 2022-06-19 12:34 | Gastrointestinal Consultation ---
Date of Consultation June 19, 2022 Assessment & Plan (1) Chronic anemia: With regards to her anemia she has had workup for this in February with evidence of portal hypertensive gastropathy and no varices. No colonic pathology to speak of. I don't think she needs repeat evaluation without visible evidence of bleeding. People with chronic liver disease can have anemia without bleeding. I think her abdominal pain may be related to her developing ascites. I do think paracentesis is warranted to rule out SBP History of Present Illness Reason for Consultation: anemia Attending Physician: Lacie Lara MD History of Present Illness 67 year old female with cirrhosis related to REBOLLAR developed "queasy feeling and abdominal pain" about a week ago. Her pain became worse and she vomited so she came to the hospital. She says her stomach had started getting swollen as well. She had a CT that showed ascites and her last CT in December did not show ascites. She had an EGD and a colonoscopy in February and was found to have evidence of portal hypertensive gastropathy. She has become anemic so she has another EGD scheduled in July in [place]. She has not vomited blood and her stools are usually yellow due to lactulose. She has not seen any blood. She denies fevers. She denies close contacts who are sick. Allergies Allergy/AdvReac Type Severity Reaction Status Date / Time bee venom protein (honey bee) Allergy Severe Anaphylaxis Verified 06/18/22 22:18 Influenza Virus Vaccines Allergy Severe Anaphylaxis Verified 06/18/22 22:18 tetracycline AdvReac Severe Severe Verified 06/18/22 22:18 stomach pains Home Medications Medication Instructions Recorded Confirmed Type [id number] ac 400 1 tab PO QAM 07/15/21 06/18/22 History mcg-calcium carb 500 mg-vit K1 20 mcg tablet (Women's 50 Plus Multivitamin) omeprazole 40 mg capsule,delayed 40 mg PO QAM 11/04/21 06/18/22 History release potassium chloride 20 mEq 20 meq PO BID 12/22/21 06/18/22 History tablet,extended release(part/cryst) (Klor-Con M) magnesium oxide 500 mg tablet 500 mg PO QAM 01/22/22 06/18/22 History levothyroxine 112 mcg tablet 112 mcg PO Q2D #45 tabs 02/24/22 06/18/22 Rx chlorthalidone 25 mg tablet 25 mg PO DAILY #30 tabs 06/05/22 06/18/22 Rx pen needle, diabetic 32 gauge x #300 ea 06/12/22 Rx /32" (BD Ultra-Fine Lani Pen Needle) dulaglutide 3 mg/0.5 mL 3 mg subcut WK 06/18/22 06/18/22 History subcutaneous pen injector (Trulicity) glucagon 3 mg/actuation nasal 3 mg intranasal .UD PRN 06/18/22 06/18/22 History spray (Baqsimi) Hypoglycemia hydroxyzine HCl 25 mg tablet 25 mg PO HS 06/18/22 06/18/22 History hyoscyamine sulfate 0.125 mg 0.125 mg PO QID PRN Abdominal Pain 06/18/22 06/18/22 History disintegrating tablet insulin regular human 100 unit/mL 0 unit subcut BID PRN Hyperglycemia 06/18/22 06/18/22 History (3 mL) subcutaneous pen (Novolin R FlexPen) lactulose 20 gram/30 mL oral 30 g PO TID 06/18/22 06/18/22 History solution levothyroxine 100 mcg tablet 100 mcg PO Q2D 06/18/22 06/18/22 History paroxetine HCl 20 mg tablet 20 mg PO DAILY 06/18/22 06/18/22 History propranolol 20 mg tablet 20 mg PO TID 06/18/22 06/18/22 History rifaximin 550 mg tablet (Xifaxan) 550 mg PO BID 06/18/22 06/18/22 History rosuvastatin 20 mg tablet 20 mg PO HS 06/18/22 06/18/22 History blood-glucose sensor (FreeStyle #2 ea 06/19/22 06/19/22 Rx Lisy 3 Sensor device) Patient History Medical History Acute kidney injury Anemia HX Anxiety and depression Arthritis Moeller esophagus Moeller's esophagus with esophagitis Benign essential tremor Chronic diarrhea SOMETIMES - when takes lactulose 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 Colitis with rectal bleeding Depression Diabetes mellitus, type 2 Diverticulosis GERD (gastroesophageal reflux disease) Heel spur B/L feet Hiatal hernia History of colon polyps BENIGN History of fractured vertebra CURRENT, HX FALL JULY 2021 - FELL OF THE TOILET - NO INTERVENTION AT PRESENT/ [facility] FOR TO DISCUSS TX OPTIONS - POTENTIAL BACK BRACE History of kidney stones Hyperlipidemia Hypertension Hypothyroidism Hypothyroidism 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) Portal hypertension Seasonal allergies Spleen enlarged MONITORS - PT REPORTS FROM THE REBOLLAR Stucco keratoses Temporomandibular joint disorder 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[employer] Thyroid disease Surgical History H/O thumb surgery RT/LEFT JOINT REPAIR H/O total hysterectomy History of appendectomy History of arthroscopy of knee Left Knee - meniscus/cartilage History of colonoscopy History of cystoscopy History of esophagogastroduodenoscopy (EGD) History of tonsillectomy and adenoidectomy History of tooth extraction Hx of cholecystectomy Family History Brother Coronary heart disease Heart disease Mother Family history of diabetes mellitus Hypertension Heart disease Sister Family history of diabetes mellitus Son Family history of diabetes mellitus Father Family hx of colon cancer Hearing loss Hypertension Cancer Heart disease Grandfather (Maternal) Family hx of colon cancer Other No family history of adverse response to anesthesia No family history of bleeding disorder Social History Smoking Status: Never smoker Second Hand Exposure: No; Hx Alcohol Use: No Hx Substance Use: No Preferred Language: Yoruba Communication Ability: Effective Box Blank Machine Feeder Required: No Beliefs That Will Affect Care: None marital status: Current Living Situation: Spouse Current Living Situation Comment: and sister current occupational status: employed and retired How many Children do You have: 0 Other Information That Helps Us Care for You: No Feels Safe at Home: Yes Safety Concerns: Feels Safe At This Time Assistive Devices: Cane Review of Systems Review of Systems: All systems reviewed & are unremarkable except as noted in HPI & below Physical Exam Constitutional: WD/WN, vitals as above no acute distress Eyes: PERRL, conjunctivae normal, anicteric sclerae + scleral abnormality (icteric sclera) ENMT: external ear and nose normal, oropharynx normal Neck: trachea midline, no thyromegaly Respiratory: normal respiratory effort, lungs clear to auscultation Cardiovascular: RRR, no murmur, no edema Gastrointestinal (Abdomen): normal bowel sounds, soft, nontender, no hepatosplenomegaly Musculoskeletal: Extremities: no cyanosis and no clubbing Skin: no rashes, warm and dry Neurologic: PERRL, EOMI, accommodation nl, no face palsy, no dysarthria Psychiatric: Orientation: alert and oriented x 3 Results & Data Vital Signs (Past 12 Hours) Vital Signs Temp Pulse Pulse Pulse Resp BP Pulse Ox 06/19/22 10:44 67 06/19/22 08:43 36.6 C 70 16 116/54 L 96 06/19/22 02:08 72 06/19/22 02:08 06/19/22 02:08 06/19/22 03:03 36.7 C 77 18 110/49 L 96 06/19/22 01:30 36.6 C 70 18 120/71 93 06/19/22 01:00 72 13 95 O2 Del Method 06/19/22 10:44 06/19/22 08:43 Room Air 06/19/22 02:08 06/19/22 02:08 Room Air 06/19/22 02:08 Room Air 06/19/22 03:03 Room Air 06/19/22 01:30 Room Air 06/19/22 01:00 Laboratory Results 06/19/22 06/19/22 06/19/22 Range/Units 11:37 07:33 06:12 WBC (4.8-10.8) K/ul RBC (4.20-5.40) M/uL Hgb (12.0-16.0) g/dl Hct (37.0-47.0) % MCV (80.0-100.0) fL MCH (25.0-34.0) pg MCHC (32.0-36.0) g/dL RDW Std Deviation (36.4-46.3) fL RDW Coeff of Charlee (11.5-14.5) % Plt Count (130-400) K/uL MPV (9.4-12.4) fL Immature Gran % (Auto) % Neut % (Auto) % Lymph % (Auto) % [place] % (Auto) % Eos % (Auto) % Baso % (Auto) % Reticulocyte % (Auto) 2.6 H (0.5-2.0) % Neut # (Auto) (1.40-6.50) K/uL Lymph # (Auto) (1.2-3.4) K/uL [place] # (Auto) (0.11-0.59) K/uL Eos # (Auto) (0-0.50) K/uL Baso # (Auto) (0-0.2) K/uL Reticulocyte # 0.08 (0.02-0.10) 10^6/uL Immature Gran # (Auto) (0.01-0.20) K/uL Polychromasia Hypochromasia Tear Drop Cells Ovalocytes Acanthocytes (Spur) Schistocytes Haptoglobin PT (9.0-12.0) Seconds INR (0.9-1.1) Sodium (136-145) mmol/L Potassium (3.5-5.1) mmol/L Chloride (98-107) mmol/L Carbon Dioxide (21-32) mmol/L Anion Gap (3-11) BUN (6-23) mg/dl Creatinine (0.6-1.2) mg/dl Est Cr Clr Drug Dosing ml/min Est GFR ( Amer) ml/min Est GFR (Non-Af Amer) ml/min BUN/Creatinine Ratio (10-20) Glucose (70-99(Fasting)) mg/dl POC Glucose 133 H (70-99) mg/dl Calcium (8.6-10.3) mg/dl Phosphorus (2.5-4.9) mg/dl Magnesium (1.7-2.4) mg/dl Iron (35-150) mcg/dl Unsaturated IBC (155-355) mcg/dl Transferrin (200-360) mg/dl Ferritin (8-388) ng/ml Total Bilirubin (0.2-1.0) mg/dl Direct Bilirubin (0-0.2) mg/dl AST (13-39) U/L ALT (7-52) U/L Alkaline Phosphatase (34-104) U/L Lactate Dehydrogenase (86-244) U/L Troponin I High Sens (0-14) pg/ml Total Protein (6.0-8.3) gm/dl Albumin (3.4-5.0) gm/dl Globulin (2.5-4.0) gm/dl Albumin/Globulin Ratio (0.9-2) Lipase (11-82) U/L Urine Color Urine Appearance (Clear) Urine pH (4.5-7.5) Ur Specific [place] (1.000-1.030) Urine Protein (Negative) Urine Glucose (UA) (Negative) Urine Ketones (Negative) Urine Blood (Negative) Urine Nitrite (Negative) Urine Bilirubin (Negative) Urine Urobilinogen (Negative) Ur Leukocyte Esterase (Negative) Adenovirus (PCR) (NotDetected) B. pertussis DNA (PCR) (NotDetected) B.parapertussis DNA PCR (NotDetected) C. pneumoniae DNA (PCR) (NotDetected) Coronavirus OC43 (PCR) (NotDetected) Coronavirus HKU1 (PCR) (NotDetected) Coronavirus 229E (PCR) (NotDetected) SARS-CoV-2 (PCR) (NotDetected) Coronavirus NL63 (PCR) (NotDetected) Human Metapneumovir PCR (NotDetected) Influenza Type A (PCR) (NotDetected) Influenza Type B (PCR) (NotDetected) M. pneumoniae (PCR) (NotDetected) Parainfluenza 1 (PCR) (NotDetected) Parainfluenza 2 (PCR) (NotDetected) Parainfluenza 3 (PCR) (NotDetected) Parainfluenza 4 (PCR) (NotDetected) RSV (PCR) (NotDetected) Entero/Rhino (PCR) (NotDetected) Blood Type A Positive Antibody Screen NEGATIVE 06/19/22 06/19/22 06/19/22 Range/Units 06:12 06:12 06:12 WBC (4.8-10.8) K/ul RBC (4.20-5.40) M/uL Hgb (12.0-16.0) g/dl Hct (37.0-47.0) % MCV (80.0-100.0) fL MCH (25.0-34.0) pg MCHC (32.0-36.0) g/dL RDW Std Deviation (36.4-46.3) fL RDW Coeff of Charlee (11.5-14.5) % Plt Count (130-400) K/uL MPV (9.4-12.4) fL Immature Gran % (Auto) % Neut % (Auto) % Lymph % (Auto) % [place] % (Auto) % Eos % (Auto) % Baso % (Auto) % Reticulocyte % (Auto) (0.5-2.0) % Neut # (Auto) (1.40-6.50) K/uL Lymph # (Auto) (1.2-3.4) K/uL [place] # (Auto) (0.11-0.59) K/uL Eos # (Auto) (0-0.50) K/uL Baso # (Auto) (0-0.2) K/uL Reticulocyte # (0.02-0.10) 10^6/uL Immature Gran # (Auto) (0.01-0.20) K/uL Polychromasia Hypochromasia Tear Drop Cells Ovalocytes Acanthocytes (Spur) Schistocytes Haptoglobin Pending PT (9.0-12.0) Seconds INR (0.9-1.1) Sodium (136-145) mmol/L Potassium (3.5-5.1) mmol/L Chloride (98-107) mmol/L Carbon Dioxide (21-32) mmol/L Anion Gap (3-11) BUN (6-23) mg/dl Creatinine (0.6-1.2) mg/dl Est Cr Clr Drug Dosing ml/min Est GFR ( Amer) ml/min Est GFR (Non-Af Amer) ml/min BUN/Creatinine Ratio (10-20) Glucose (70-99(Fasting)) mg/dl POC Glucose (70-99) mg/dl Calcium (8.6-10.3) mg/dl Phosphorus (2.5-4.9) mg/dl Magnesium (1.7-2.4) mg/dl Iron (35-150) mcg/dl Unsaturated IBC (155-355) mcg/dl Transferrin (200-360) mg/dl Ferritin (8-388) ng/ml Total Bilirubin (0.2-1.0) mg/dl Direct Bilirubin 0.9 H (0-0.2) mg/dl AST (13-39) U/L ALT (7-52) U/L Alkaline Phosphatase (34-104) U/L Lactate Dehydrogenase 187 (86-244) U/L Troponin I High Sens (0-14) pg/ml Total Protein (6.0-8.3) gm/dl Albumin (3.4-5.0) gm/dl Globulin (2.5-4.0) gm/dl Albumin/Globulin Ratio (0.9-2) Lipase (11-82) U/L Urine Color Urine Appearance (Clear) Urine pH (4.5-7.5) Ur Specific [place] (1.000-1.030) Urine Protein (Negative) Urine Glucose (UA) (Negative) Urine Ketones (Negative) Urine Blood (Negative) Urine Nitrite (Negative) Urine Bilirubin (Negative) Urine Urobilinogen (Negative) Ur Leukocyte Esterase (Negative) Adenovirus (PCR) (NotDetected) B. pertussis DNA (PCR) (NotDetected) B.parapertussis DNA PCR (NotDetected) C. pneumoniae DNA (PCR) (NotDetected) Coronavirus OC43 (PCR) (NotDetected) Coronavirus HKU1 (PCR) (NotDetected) Coronavirus 229E (PCR) (NotDetected) SARS-CoV-2 (PCR) (NotDetected) Coronavirus NL63 (PCR) (NotDetected) Human Metapneumovir PCR (NotDetected) Influenza Type A (PCR) (NotDetected) Influenza Type B (PCR) (NotDetected) M. pneumoniae (PCR) (NotDetected) Parainfluenza 1 (PCR) (NotDetected) Parainfluenza 2 (PCR) (NotDetected) Parainfluenza 3 (PCR) (NotDetected) Parainfluenza 4 (PCR) (NotDetected) RSV (PCR) (NotDetected) Entero/Rhino (PCR) (NotDetected) Blood Type Antibody Screen 06/19/22 06/18/22 06/18/22 Range/Units 06:02 20:40 19:50 WBC (4.8-10.8) K/ul RBC (4.20-5.40) M/uL Hgb (12.0-16.0) g/dl Hct (37.0-47.0) % MCV (80.0-100.0) fL MCH (25.0-34.0) pg MCHC (32.0-36.0) g/dL RDW Std Deviation (36.4-46.3) fL RDW Coeff of Charlee (11.5-14.5) % Plt Count (130-400) K/uL MPV (9.4-12.4) fL Immature Gran % (Auto) % Neut % (Auto) % Lymph % (Auto) % [place] % (Auto) % Eos % (Auto) % Baso % (Auto) % Reticulocyte % (Auto) (0.5-2.0) % Neut # (Auto) (1.40-6.50) K/uL Lymph # (Auto) (1.2-3.4) K/uL [place] # (Auto) (0.11-0.59) K/uL Eos # (Auto) (0-0.50) K/uL Baso # (Auto) (0-0.2) K/uL Reticulocyte # (0.02-0.10) 10^6/uL Immature Gran # (Auto) (0.01-0.20) K/uL Polychromasia Hypochromasia Tear Drop Cells Ovalocytes Acanthocytes (Spur) Schistocytes Haptoglobin PT (9.0-12.0) Seconds INR (0.9-1.1) Sodium (136-145) mmol/L Potassium (3.5-5.1) mmol/L Chloride (98-107) mmol/L Carbon Dioxide (21-32) mmol/L Anion Gap (3-11) BUN (6-23) mg/dl Creatinine (0.6-1.2) mg/dl Est Cr Clr Drug Dosing ml/min Est GFR ( Amer) ml/min Est GFR (Non-Af Amer) ml/min BUN/Creatinine Ratio (10-20) Glucose (70-99(Fasting)) mg/dl POC Glucose 98 (70-99) mg/dl Calcium (8.6-10.3) mg/dl Phosphorus (2.5-4.9) mg/dl Magnesium (1.7-2.4) mg/dl Iron (35-150) mcg/dl Unsaturated IBC (155-355) mcg/dl Transferrin (200-360) mg/dl Ferritin (8-388) ng/ml Total Bilirubin (0.2-1.0) mg/dl Direct Bilirubin (0-0.2) mg/dl AST (13-39) U/L ALT (7-52) U/L Alkaline Phosphatase (34-104) U/L Lactate Dehydrogenase (86-244) U/L Troponin I High Sens (0-14) pg/ml Total Protein (6.0-8.3) gm/dl Albumin (3.4-5.0) gm/dl Globulin (2.5-4.0) gm/dl Albumin/Globulin Ratio (0.9-2) Lipase (11-82) U/L Urine Color Yellow Urine Appearance Clear (Clear) Urine pH 7.0 (4.5-7.5) Ur Specific [place] 1.009 (1.000-1.030) Urine Protein Negative (Negative) Urine Glucose (UA) Negative (Negative) Urine Ketones Negative (Negative) Urine Blood Negative (Negative) Urine Nitrite Negative (Negative) Urine Bilirubin Negative (Negative) Urine Urobilinogen Negative (Negative) Ur Leukocyte Esterase Negative (Negative) Adenovirus (PCR) Not Detected (NotDetected) B. pertussis DNA (PCR) Not Detected (NotDetected) B.parapertussis DNA PCR Not Detected (NotDetected) C. pneumoniae DNA (PCR) Not Detected (NotDetected) Coronavirus OC43 (PCR) Not Detected (NotDetected) Coronavirus HKU1 (PCR) Not Detected (NotDetected) Coronavirus 229E (PCR) Not Detected (NotDetected) SARS-CoV-2 (PCR) Not Detected (NotDetected) Coronavirus NL63 (PCR) Not Detected (NotDetected) Human Metapneumovir PCR Not Detected (NotDetected) Influenza Type A (PCR) Not Detected (NotDetected) Influenza Type B (PCR) Not Detected (NotDetected) M. pneumoniae (PCR) Not Detected (NotDetected) Parainfluenza 1 (PCR) Not Detected (NotDetected) Parainfluenza 2 (PCR) Not Detected (NotDetected) Parainfluenza 3 (PCR) Not Detected (NotDetected) Parainfluenza 4 (PCR) Not Detected (NotDetected) RSV (PCR) Not Detected (NotDetected) Entero/Rhino (PCR) Not Detected (NotDetected) Blood Type Antibody Screen 06/18/22 06/18/22 06/18/22 Range/Units 19:14 19:03 19:03 WBC (4.8-10.8) K/ul RBC (4.20-5.40) M/uL Hgb (12.0-16.0) g/dl Hct (37.0-47.0) % MCV (80.0-100.0) fL MCH (25.0-34.0) pg MCHC (32.0-36.0) g/dL RDW Std Deviation (36.4-46.3) fL RDW Coeff of Charlee (11.5-14.5) % Plt Count (130-400) K/uL MPV (9.4-12.4) fL Immature Gran % (Auto) % Neut % (Auto) % Lymph % (Auto) % [place] % (Auto) % Eos % (Auto) % Baso % (Auto) % Reticulocyte % (Auto) (0.5-2.0) % Neut # (Auto) (1.40-6.50) K/uL Lymph # (Auto) (1.2-3.4) K/uL [place] # (Auto) (0.11-0.59) K/uL Eos # (Auto) (0-0.50) K/uL Baso # (Auto) (0-0.2) K/uL Reticulocyte # (0.02-0.10) 10^6/uL Immature Gran # (Auto) (0.01-0.20) K/uL Polychromasia Hypochromasia Tear Drop Cells Ovalocytes Acanthocytes (Spur) Schistocytes Haptoglobin PT 13.4 H (9.0-12.0) Seconds INR 1.3 H (0.9-1.1) Sodium 138 (136-145) mmol/L Potassium 3.9 (3.5-5.1) mmol/L Chloride 106 (98-107) mmol/L Carbon Dioxide 25 (21-32) mmol/L Anion Gap 7 (3-11) BUN 12 (6-23) mg/dl Creatinine 0.98 (0.6-1.2) mg/dl Est Cr Clr Drug Dosing 52.6 ml/min Est GFR ( Amer) 68.2 ml/min Est GFR (Non-Af Amer) 58.9 ml/min BUN/Creatinine Ratio 12.2 (10-20) Glucose 121 H (70-99(Fasting)) mg/dl POC Glucose (70-99) mg/dl Calcium 10.6 H (8.6-10.3) mg/dl Phosphorus Cancelled 2.6 (2.5-4.9) mg/dl Magnesium Cancelled 1.7 (1.7-2.4) mg/dl Iron 29 L (35-150) mcg/dl Unsaturated IBC 428 H (155-355) mcg/dl Transferrin 365 H (200-360) mg/dl Ferritin 8.8 (8-388) ng/ml Total Bilirubin 5.0 H (0.2-1.0) mg/dl Direct Bilirubin Cancelled 0.9 H (0-0.2) mg/dl AST 42 H (13-39) U/L ALT 23 (7-52) U/L Alkaline Phosphatase 158 H (34-104) U/L Lactate Dehydrogenase (86-244) U/L Troponin I High Sens 7.5 (0-14) pg/ml Total Protein 5.5 L (6.0-8.3) gm/dl Albumin 3.4 (3.4-5.0) gm/dl Globulin 2.1 L (2.5-4.0) gm/dl Albumin/Globulin Ratio 1.6 (0.9-2) Lipase 94 H (11-82) U/L Urine Color Urine Appearance (Clear) Urine pH (4.5-7.5) Ur Specific [place] (1.000-1.030) Urine Protein (Negative) Urine Glucose (UA) (Negative) Urine Ketones (Negative) Urine Blood (Negative) Urine Nitrite (Negative) Urine Bilirubin (Negative) Urine Urobilinogen (Negative) Ur Leukocyte Esterase (Negative) Adenovirus (PCR) (NotDetected) B. pertussis DNA (PCR) (NotDetected) B.parapertussis DNA PCR (NotDetected) C. pneumoniae DNA (PCR) (NotDetected) Coronavirus OC43 (PCR) (NotDetected) Coronavirus HKU1 (PCR) (NotDetected) Coronavirus 229E (PCR) (NotDetected) SARS-CoV-2 (PCR) (NotDetected) Coronavirus NL63 (PCR) (NotDetected) Human Metapneumovir PCR (NotDetected) Influenza Type A (PCR) (NotDetected) Influenza Type B (PCR) (NotDetected) M. pneumoniae (PCR) (NotDetected) Parainfluenza 1 (PCR) (NotDetected) Parainfluenza 2 (PCR) (NotDetected) Parainfluenza 3 (PCR) (NotDetected) Parainfluenza 4 (PCR) (NotDetected) RSV (PCR) (NotDetected) Entero/Rhino (PCR) (NotDetected) Blood Type Antibody Screen 06/18/22 Range/Units 19:03 WBC 5.67 (4.8-10.8) K/ul RBC 3.19 L (4.20-5.40) M/uL Hgb 7.2 L (12.0-16.0) g/dl Hct 23.7 L (37.0-47.0) % MCV 74.3 L (80.0-100.0) fL MCH 22.6 L (25.0-34.0) pg MCHC 30.4 L (32.0-36.0) g/dL RDW Std Deviation 50.4 H (36.4-46.3) fL RDW Coeff of Charlee 18.7 H (11.5-14.5) % Plt Count 226 (130-400) K/uL MPV 10.1 (9.4-12.4) fL Immature Gran % (Auto) 0.2 % Neut % (Auto) 49.4 % Lymph % (Auto) 23.1 % [place] % (Auto) 19.2 % Eos % (Auto) 7.2 % Baso % (Auto) 0.9 % Reticulocyte % (Auto) 2.6 H (0.5-2.0) % Neut # (Auto) 2.80 (1.40-6.50) K/uL Lymph # (Auto) 1.31 (1.2-3.4) K/uL [place] # (Auto) 1.09 H (0.11-0.59) K/uL Eos # (Auto) 0.41 (0-0.50) K/uL Baso # (Auto) 0.05 (0-0.2) K/uL Reticulocyte # 0.08 (0.02-0.10) 10^6/uL Immature Gran # (Auto) 0.01 (0.01-0.20) K/uL Polychromasia 1+ Hypochromasia Present Tear Drop Cells 1+ Ovalocytes 1+ Acanthocytes (Spur) 1+ Schistocytes 1+ Haptoglobin PT (9.0-12.0) Seconds INR (0.9-1.1) Sodium (136-145) mmol/L Potassium (3.5-5.1) mmol/L Chloride (98-107) mmol/L Carbon Dioxide (21-32) mmol/L Anion Gap (3-11) BUN (6-23) mg/dl Creatinine (0.6-1.2) mg/dl Est Cr Clr Drug Dosing ml/min Est GFR ( Amer) ml/min Est GFR (Non-Af Amer) ml/min BUN/Creatinine Ratio (10-20) Glucose (70-99(Fasting)) mg/dl POC Glucose (70-99) mg/dl Calcium (8.6-10.3) mg/dl Phosphorus (2.5-4.9) mg/dl Magnesium (1.7-2.4) mg/dl Iron (35-150) mcg/dl Unsaturated IBC (155-355) mcg/dl Transferrin (200-360) mg/dl Ferritin (8-388) ng/ml Total Bilirubin (0.2-1.0) mg/dl Direct Bilirubin (0-0.2) mg/dl AST (13-39) U/L ALT (7-52) U/L Alkaline Phosphatase (34-104) U/L Lactate Dehydrogenase (86-244) U/L Troponin I High Sens (0-14) pg/ml Total Protein (6.0-8.3) gm/dl Albumin (3.4-5.0) gm/dl Globulin (2.5-4.0) gm/dl Albumin/Globulin Ratio (0.9-2) Lipase (11-82) U/L Urine Color Urine Appearance (Clear) Urine pH (4.5-7.5) Ur Specific [place] (1.000-1.030) Urine Protein (Negative) Urine Glucose (UA) (Negative) Urine Ketones (Negative) Urine Blood (Negative) Urine Nitrite (Negative) Urine Bilirubin (Negative) Urine Urobilinogen (Negative) Ur Leukocyte Esterase (Negative) Adenovirus (PCR) (NotDetected) B. pertussis DNA (PCR) (NotDetected) B.parapertussis DNA PCR (NotDetected) C. pneumoniae DNA (PCR) (NotDetected) Coronavirus OC43 (PCR) (NotDetected) Coronavirus HKU1 (PCR) (NotDetected) Coronavirus 229E (PCR) (NotDetected) SARS-CoV-2 (PCR) (NotDetected) Coronavirus NL63 (PCR) (NotDetected) Human Metapneumovir PCR (NotDetected) Influenza Type A (PCR) (NotDetected) Influenza Type B (PCR) (NotDetected) M. pneumoniae (PCR) (NotDetected) Parainfluenza 1 (PCR) (NotDetected) Parainfluenza 2 (PCR) (NotDetected) Parainfluenza 3 (PCR) (NotDetected) Parainfluenza 4 (PCR) (NotDetected) RSV (PCR) (NotDetected) Entero/Rhino (PCR) (NotDetected) Blood Type Antibody Screen Diagnostic Findings Abdomen/Pelvis CT 06/18/22 18:48 Exam(s): CT ABDOMEN + PELVIS With Contrast EXAM: CT Abdomen and Pelvis With Intravenous Contrast CLINICAL HISTORY: Reason for exam: Abd pain. TECHNIQUE: Axial computed tomography images of the abdomen and pelvis with intravenous contrast. Automated exposure control was utilized for the study. A dose lowering technique was utilized adhering to the principles of ALARA. CONTRAST: 83 cc of Optiray 350 COMPARISON: CT abdomen on 12/23/2021 FINDINGS: Lung bases: Unremarkable. No mass. No consolidation. ABDOMEN: Liver: Cirrhotic liver. Gallbladder and bile ducts: Prior cholecystectomy. Probable postcholecystectomy ductal ectasia. Pancreas: Unremarkable. No mass. No ductal dilation. Spleen: Splenomegaly. Adrenals: Unremarkable. No mass. Kidneys and ureters: Unremarkable. No hydronephrosis or obstructing stone. Stomach and bowel: Diverticulosis without definite evidence of diverticulitis. Wall thickening of the colon may be at least in part secondary to underdistention. Colitis is not excluded. Evaluation of the stomach is limited by underdistention. PELVIS: Appendix: Appendix is not definitely visualized on this exam. Bladder: Mild prominence of the bladder wall may be secondary to under distention. Reproductive: Prior hysterectomy. ABDOMEN and PELVIS: Intraperitoneal space: Moderate ascites. Wall thickening of the small bowel loops may be secondary to under distention versus ascites versus enteritis. No free air. Bones/joints: Stable superior endplate compression deformity of the L4 vertebral body. Degenerative changes of the spine. No dislocation. Soft tissues: Unremarkable. Vasculature: Phleboliths in the pelvis. Atherosclerotic changes of the vasculature. No aortic aneurysm or dissection. Lymph nodes: Unremarkable. No enlarged lymph nodes. IMPRESSION: 1. Cirrhotic liver. 2. Moderate ascites and splenomegaly. 3. Wall thickening of the colon may be at least in part secondary to underdistention. Colitis is not excluded. 4. Wall thickening of the small bowel loops may be secondary to under distention versus ascites versus enteritis. Electronically signed by: Werner Gustafson M.D. 06/18/22 21:42 PM
--- NOTE | 2022-06-19 14:15 | Ultrasound Report ---
US abdomen ltd ascites CLINICAL HISTORY: New ascites and abdominal pain. COMPARISON STUDY: CT of the abdomen and pelvis June 18, 2022. FINDINGS: The patient presented today for possible paracentesis. Trace fluid within the lower quadran ts was noted. A small amount of perihepatic and perisplenic fluid was noted. No suitable window for d iagnostic paracentesis was identified. Therefore, no procedure was performed. The liver is cirrhotic. IMPRESSION: Small amount of ascites. No suitable window for diagnostic paracentesis. Therefore, no p rocedure performed. ACT 112: Negative or not required by law. Electronically signed by: Keven Bettencourt M.D. 06/19/2022 2:13 PM
[2022-06-19] MEDS: hydrOXYzine HCl 25 MG TAB PO SCH (20:00)
[2022-06-19] MEDS: DICYCLOMINE HCL 20 MG TAB PO SCH (20:05)
[2022-06-19] MEDS: ROSUVASTATIN CALCIUM 20 MG TAB PO SCH (20:11)
[2022-06-20] MEDS: HYOSCYAMINE SULFATE 0.125 MG TAB PO PRN ×3 (01:19→17:25)
[2022-06-20] MEDS: INSULIN ASPART PER UNIT CHARGE SC SCH (05:51)
[2022-06-20] MEDS: LEVOTHYROXINE SODIUM 112 MCG TABLET PO SCH (05:56)
[2022-06-20 07:27] LABS: Hematocrit (blood only) 20.6 % (37.0-47.0); Hemoglobin 6.1 g/dl (12.0-16.0); Mean Corpuscular Hemoglobin 22.2 pg (25.0-34.0); Mean Corpuscular Hgb Conc 29.6 g/dL (32.0-36.0); Mean Corpuscular Volume 74.9 fL (80.0-100.0); Mean Platelet Volume 9.3 fL (9.4-12.4); Platelet Count 148 K/uL (130-400); RDW Coefficient of Variation 19.1 % (11.5-14.5); RDW Standard Deviation 51.4 fL (36.4-46.3); Red Blood Count 2.75 M/uL (4.20-5.40); White Blood Count 3.74 K/ul (4.8-10.8)
--- NOTE | 2022-06-20 07:29 | Hospitalist Progress Note ---
Date of Service June 20, 2022 Assessment & Plan (1) 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: Plan: 67yo female with a history of REBOLLAR cirrhosis (on transplant waitlist), portal hypertension, esophageal varices, hepatic encephalopathy, DM2, HLD, Moeller's esophagus, MDD, KAREN, and hypothyroidism presents with a one-week history of abdominal pain, bloating, nausea, and vomiting. Abdominal pain and nausea, Norovirus positive Also considered exacerbation of cirrhosis, gastritis, and PUD; reportedly w/ Moeller's on EGD ~5 months ago. INR 1.3, alk phos 158, AST/ALT not elevated, Tbili 5.0 CT a/p: cirrhotic liver, moderate ascites, splenomegaly, colonic wall thick ening abdominal ultrasound w/ small amount of ascites and no suitable window for diagnostic paracentesis lower suspicion for SBP and at this time Continue chlorthalidone, hyoscyamine, lactulose, rifaximin, PPI, propranolol Avoid Tylenol, avoid NSAIDs; zofran for nausea. Dilaudid d/c'd. Provided Bentyl for a day; can consider as outpatient Trend CMP, PT/INR GI [facility] otherwise negative. Contact precautions. 06/20/22 evening exacerbation of abdominal pain: Check KUB. NSS 60mL/hr. Reassuring physical exam. Ducai-ka-xeedpoh iron deficiency anemia Hgb on admission 7.2, slowly worsening over the past few months; no sign of active bleeding; patient had a normal colonoscopy two months ago Differential includes UGIB +/- iron deficiency Iron studies consistent with iron deficiency anemia. Iron 29, ferritin 8.8 (less consistent w/ anemia of chronic disease). Fecal occult neg Continue Protonix 40mg IV BID NPO; GI consulted: no plans for EGD this admission unless develops signs/symptoms of GI bleeding outpatient EGD w/ [facility] scheduled for 07/14/22 per patient 1u PRBC transfused for Hb of 6.1, repeat of 7.9 Check peripheral smear; follow CBC PCP to check CBC in several days. Cirrhosis, indirect hyperbilirubinemia Similar to chronic elevation. Follow CMP. Continue home regimen cirrhosis medications as per above. Bilateral right worse than left lower extremity swelling x1 month duration Venous duplex neg for DVT DM2 A1c 6.0 this admission. Check bsg achs HLD: continue rosuvastatin GERD: continue PPI MDD/KAREN: continue home paroxetine, hydroxyzine Hypothyroidism: continue home levothyroxine FEN: DM2, low Na, full liquid. NSS 60mL/hr. Code status: DNR/DNI DVT ppx: SCDs Dispo: PCU->med surg. Already established with home PT; plans to continue. (2) Intractable nausea and vomiting: (3) Chronic anemia: (4) Hyperlipidemia: (5) Hypertension: (6) Diabetes mellitus type 2 with complications: (7) Elevated bilirubin: (8) Hypothyroidism: (9) Anxiety: Admission and Anticipated Discharge Date Admission Date: June 19, 2022 Supervising Physician Co-Signing Physician Notes Resident Physician Supervision Note: I independently interviewed and examined the patient and verified the mcnamara history and physical, reviewed labs and image studies and agree with resident findings and care plan. Subjective Overall, patient is feeling slightly better this morning in regards to her nausea and abdominal pains. She reports some vaginal burning, worse when she has diarrhea from taking lactulose. She denies dysuria. She had some chills this morning. She denies hematemesis or bloody stool. She has left and lower abdominal pain that radiate up to the epigastric area. Patient states that she is on the liver transplant list at [facility]. She states she had an EGD 5 months ago that showed Moeller's. Evening update: Patient was reassessed after pured dinner. She states that she had severe abdominal pain and 4 episodes of diarrhea after this. She rates her pain 10 out of 10. Review of Systems Review of Systems: All systems reviewed & are unremarkable except as noted in HPI & below Physical Exam Physical Exam: General: Grossly A&O. NAD. Cooperative. HEENT: Atraumatic, normocephalic. EOMI Pulm: CTAB. -wheezes, -rales, -rhonchi. No respiratory distress. Cardiac: RRR, -mrg. 2+ RLE pitting edema. 1+ LLE pitting edema. Per patient, the bilateral pitting edema has been chronic x1 month. Abdominal: Nontender, mild TTP at epigastrium, RUQ, and LLQ (worse here), soft. Evening exam: unchanged. soft nondistended. Mild diffuse ttp. No guarding. Results & Data Results & Data Vital Signs (Past 12 Hours) Vital Signs Temp Pulse Pulse Resp BP Pulse Ox O2 Del Method 06/20/22 03:07 36.3 C L 75 17 110/50 L 94 Room Air 06/19/22 23:00 71 06/19/22 23:20 36.7 C 70 17 101/53 L 97 Room Air 06/19/22 19:47 36.9 C 74 19 143/67 H 94 Room Air Resident Activity Tracking Resident Involvement: Resident Care Provided Care Provided: Adult Hospital Medicine (4) Hyperlipidemia Hyperlipidemia type: unspecified Qualified Code(s): E78.5 - Hyperlipidemia, unspecified (5) Hypertension Hypertension type: primary hypertension Qualified Code(s): I10 - Essential (primary) hypertension (8) Hypothyroidism Hypothyroidism type: unspecified Qualified Code(s): E03.9 - Hypothyroidism, unspecified
[2022-06-20 07:42] LABS: Albumin Globulin Ratio 1.7 (0.9-2); Albumin Level 2.9 gm/dl (3.4-5.0); BUN Creatinine Ratio 7.4 (10-20); Calcium 9.2 mg/dl (8.6-10.3); Creatinine Clr Calc Pharmacy 54.6 ml/min; Est GFR (African American) 71.7 ml/min; Est GFR (Non-African American) 61.9 ml/min; Globulin 1.7 gm/dl (2.5-4.0); Potassium 3.2 mmol/L (3.5-5.1); Total Protein 4.6 gm/dl (6.0-8.3)
[2022-06-20 07:55] LABS: Estimated Average Glucose 126 mg/dl
[2022-06-20] MEDS ORDERED: SODIUM CHLORIDE 0.9% 250 ML IV PRN (08:48)
[2022-06-20] MEDS: POTASSIUM CHLORIDE CRTAB 20 MEQ TABCR PO SCH ×2 (08:50→17:25)
[2022-06-20] MEDS: MAGNESIUM OXIDE 400 MG TAB PO SCH (08:50)
[2022-06-20] MEDS: PROPRANOLOL HCL 20 MG TAB PO SCH ×3 (08:50→20:34)
[2022-06-20] MEDS: PARoxetine HCL 20 MG TAB PO SCH (08:50)
[2022-06-20] MEDS: rifAXIMin 550 MG TABLET PO SCH ×2 (08:51→20:34)
[2022-06-20] MEDS: PANTOprazole 40 MG in SYRINGE 0 ML IV SCH ×2 (08:51→20:33)
[2022-06-20] MEDS: CHLORTHALIDONE 25 MG TAB PO SCH (08:51)
[2022-06-20] MEDS: LACTULOSE SYRUP 30 GM/45 ML UDP PO SCH ×3 (08:51→20:34)
[2022-06-20] MEDS: DICYCLOMINE HCL 20 MG TAB PO SCH ×2 (08:52→20:33)
--- NOTE | 2022-06-20 09:50 | Gastroenterology Progress Note ---
Date of Service June 20, 2022 Assessment & Plan (1) Chronic anemia: Plan: Persistent/worsening anemia with heme (-) stools. Would assume this is anemia of chronic disease or would possibly look for other cause for anemia in face of heme (-) stools. If her GI tract declares itself with blood then will proceed with evaluation. She is on PPI for ulcer disease so that should be covered. I still suspect a lot of her pain is due to her new ascites. She has appts in [place] at the beginning of July Admission and Anticipated Discharge Date Admission Date: June 19, 2022 Subjective Hemoglobin down to 6 but stools negative for blood to this point and she is not passing anything resembling blood. She feels a little better. On levsin now for abdominal pain. Radiology unable to get to fluid for paracentesis. Tried to eat last night but only able to eat three bites. Physical Exam Physical Exam: She looks well. Results & Data Vital Signs (Past 12 Hours) Vital Signs Temp Pulse Pulse Pulse Resp BP BP 06/20/22 09:45 36.8 C 72 18 133/62 06/20/22 09:29 36.8 C 72 16 101/50 L 06/20/22 09:24 36.7 C 75 18 101/50 L 06/20/22 08:06 36.7 C 76 24 06/20/22 03:07 36.3 C L 75 17 06/19/22 23:00 71 06/19/22 23:20 36.7 C 70 17 BP Pulse Ox O2 Del Method 06/20/22 09:45 96 06/20/22 09:29 96 06/20/22 09:24 96 Room Air 06/20/22 08:06 109/49 L 96 Room Air 06/20/22 03:07 110/50 L 94 Room Air 06/19/22 23:00 06/19/22 23:20 101/53 L 97 Room Air Laboratory Results 06/20/22 06/20/22 06/20/22 Range/Units 06:35 06:35 06:35 WBC 3.74 L (4.8-10.8) K/ul RBC 2.75 L (4.20-5.40) M/uL Hgb 6.1 L* (12.0-16.0) g/dl Hct 20.6 L* (37.0-47.0) % MCV 74.9 L (80.0-100.0) fL MCH 22.2 L (25.0-34.0) pg MCHC 29.6 L (32.0-36.0) g/dL RDW Std Deviation 51.4 H (36.4-46.3) fL RDW Coeff of Charlee 19.1 H (11.5-14.5) % Plt Count 148 (130-400) K/uL MPV 9.3 L (9.4-12.4) fL Sodium 141 (136-145) mmol/L Potassium 3.2 L (3.5-5.1) mmol/L Chloride 110 H (98-107) mmol/L Carbon Dioxide 24 (21-32) mmol/L Anion Gap 7 (3-11) BUN 7 (6-23) mg/dl Creatinine 0.94 (0.6-1.2) mg/dl Est Cr Clr Drug Dosing 54.6 ml/min Est GFR ( Amer) 71.7 ml/min Est GFR (Non-Af Amer) 61.9 ml/min BUN/Creatinine Ratio 7.4 L (10-20) Glucose 111 H (70-99(Fasting)) mg/dl POC Glucose (70-99) mg/dl Estimat Average Glucose 126 mg/dl Hemoglobin A1c 6.0 H (4.5-5.6) % Calcium 9.2 (8.6-10.3) mg/dl Total Bilirubin 4.0 H (0.2-1.0) mg/dl AST 33 (13-39) U/L ALT 18 (7-52) U/L Alkaline Phosphatase 98 (34-104) U/L Total Protein 4.6 L (6.0-8.3) gm/dl Albumin 2.9 L (3.4-5.0) gm/dl Globulin 1.7 L (2.5-4.0) gm/dl Albumin/Globulin Ratio 1.7 (0.9-2) Stool Occult Bld Scrn (Negative) Blood Type Antibody Screen Crossmatch 06/20/22 06/19/22 06/19/22 Range/Units 05:45 Unknown 23:24 WBC (4.8-10.8) K/ul RBC (4.20-5.40) M/uL Hgb (12.0-16.0) g/dl Hct (37.0-47.0) % MCV (80.0-100.0) fL MCH (25.0-34.0) pg MCHC (32.0-36.0) g/dL RDW Std Deviation (36.4-46.3) fL RDW Coeff of Charlee (11.5-14.5) % Plt Count (130-400) K/uL MPV (9.4-12.4) fL Sodium (136-145) mmol/L Potassium (3.5-5.1) mmol/L Chloride (98-107) mmol/L Carbon Dioxide (21-32) mmol/L Anion Gap (3-11) BUN (6-23) mg/dl Creatinine (0.6-1.2) mg/dl Est Cr Clr Drug Dosing ml/min Est GFR ( Amer) ml/min Est GFR (Non-Af Amer) ml/min BUN/Creatinine Ratio (10-20) Glucose (70-99(Fasting)) mg/dl POC Glucose 135 H 162 H (70-99) mg/dl Estimat Average Glucose mg/dl Hemoglobin A1c (4.5-5.6) % Calcium (8.6-10.3) mg/dl Total Bilirubin (0.2-1.0) mg/dl AST (13-39) U/L ALT (7-52) U/L Alkaline Phosphatase (34-104) U/L Total Protein (6.0-8.3) gm/dl Albumin (3.4-5.0) gm/dl Globulin (2.5-4.0) gm/dl Albumin/Globulin Ratio (0.9-2) Stool Occult Bld Scrn Negative (Negative) Blood Type Antibody Screen Crossmatch 06/19/22 06/19/22 06/19/22 Range/Units 17:37 11:37 07:33 WBC (4.8-10.8) K/ul RBC (4.20-5.40) M/uL Hgb (12.0-16.0) g/dl Hct (37.0-47.0) % MCV (80.0-100.0) fL MCH (25.0-34.0) pg MCHC (32.0-36.0) g/dL RDW Std Deviation (36.4-46.3) fL RDW Coeff of Charlee (11.5-14.5) % Plt Count (130-400) K/uL MPV (9.4-12.4) fL Sodium (136-145) mmol/L Potassium (3.5-5.1) mmol/L Chloride (98-107) mmol/L Carbon Dioxide (21-32) mmol/L Anion Gap (3-11) BUN (6-23) mg/dl Creatinine (0.6-1.2) mg/dl Est Cr Clr Drug Dosing ml/min Est GFR ( Amer) ml/min Est GFR (Non-Af Amer) ml/min BUN/Creatinine Ratio (10-20) Glucose (70-99(Fasting)) mg/dl POC Glucose 117 H 133 H (70-99) mg/dl Estimat Average Glucose mg/dl Hemoglobin A1c (4.5-5.6) % Calcium (8.6-10.3) mg/dl Total Bilirubin (0.2-1.0) mg/dl AST (13-39) U/L ALT (7-52) U/L Alkaline Phosphatase (34-104) U/L Total Protein (6.0-8.3) gm/dl Albumin (3.4-5.0) gm/dl Globulin (2.5-4.0) gm/dl Albumin/Globulin Ratio (0.9-2) Stool Occult Bld Scrn (Negative) Blood Type A Positive Antibody Screen NEGATIVE Crossmatch See Detail
[2022-06-20] MEDS ORDERED: POTASSIUM CHLORIDE CRTAB 20 MEQ TABCR PO STA (10:10)
[2022-06-20 10:55] LABS: Magnesium 1.4 mg/dl (1.7-2.4)
[2022-06-20] MEDS: MAGNESIUM SULFATE / D5W 1 GM/100 ML BAG IV SCH ×2 (11:06→11:53)
[2022-06-20 12:00] LABS: Bilirubin Direct 0.9 mg/dl (0-0.2)
[2022-06-20] MEDS: POTASSIUM CHLORIDE / WTR 10 MEQ/100 ML PLCT IV SCH ×3 (12:29→14:56)
--- NOTE | 2022-06-20 13:55 | Ultrasound Report ---
RIGHT LOWER EXTREMITY VENOUS DOPPLER CLINICAL HISTORY: Right lower extremity swelling. COMPARISON STUDY: No previous studies for comparison. TECHNIQUE: Sonography of the deep venous system of the right lower extremity was performed. Compress ion and augmentation were evaluated. FINDINGS: The right common femoral, superficial femoral and popliteal veins were compressible. Augme ntation was normal. Flow was shown within the deep calf vessels. Subcutaneous edema of the right lowe r extremity was noted. IMPRESSION: No evidence of deep venous thrombus within the right lower extremity. ACT 112: Negative or not required by law. Electronically signed by: Keven Bettencourt M.D. 06/20/2022 1:54 PM
--- NOTE | 2022-06-20 14:49 | Discharge Summary ---
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 Pain mostly in LLQ with radiation to epigastric area. Associated fatigue and generalized weakness. Denies fever, cough, congestion, chest pain, sob, diarrhea, dysuria, constipation, blood/black in stool or vomit. Compliant with home medications. She does note that there has been a decline in her Hgb over the past few months. She is scheduled for an EGD in July 2022. Follows with [facility]. Admission Exam Per Admitting Provider Constitutional: in no acute distress, pleasant, intact memory. AOx3. Vitals as above. HEENT: Mild jaundice.Dry mucous membranes.Clear oropharynx. Neck: Supple without lymphadenopathy or thyromegaly. Trachea midline. Lungs: Clear to auscultation bilaterally with good effort. Cardiac: Regular rate and rhythm.No murmurs.1+ LE pitting edema bilaterally. 2+ distal peripheral pulses. Abdomen: Bowel sounds present. Soft. Mildly distended. Mild diffuse tenderness predominantly in LLQ and RUQ. Neg murphys.No guarding. MSK: No cyanosis or clubbing. Extremities motor strength 5/5. Skin: No rashes, warm, dry. Neurologic: no focal deficits. PERRL. Principal Diagnosis norovirus anemia Discharge Exam General: Grossly A&O. NAD. Cooperative. HEENT: Atraumatic, normocephalic. EOMI Pulm: CTAB. -wheezes, -rales, -rhonchi. No respiratory distress. Cardiac: RRR, -mrg. 2+ RLE pitting edema. 1+ LLE pitting edema. Per patient, the bilateral pitting edema has been chronic x1 month. Abdominal: Nontender, mild TTP at epigastrium, RUQ, and LLQ (most pronounced), soft. Discharge Data Allergies Allergy/AdvReac Type Severity Reaction Status Date / Time bee venom protein (honey bee) Allergy Severe Anaphylaxis Verified 06/18/22 22:18 Influenza Virus Vaccines Allergy Severe Anaphylaxis Verified 06/18/22 22:18 tetracycline AdvReac Severe Severe Verified 06/18/22 22:18 stomach pains Consultations 06/18/22 22:40 ED Decision to Admit Stat 06/19/22 08:15 Consult Gastroenterology Routine Ordered Studies Cardiac Enzymes 06/20/22 Range/Units 06:35 AST 33 (13-39) U/L CBC 06/20/22 06/20/22 Range/Units 06:35 15:10 WBC 3.74 L (4.8-10.8) K/ul RBC 2.75 L (4.20-5.40) M/uL Hgb 6.1 L* 7.9 L (12.0-16.0) g/dl Hct 20.6 L* 25.9 L (37.0-47.0) % Plt Count 148 (130-400) K/uL Comprehensive Metabolic Panel 06/20/22 Range/Units 06:35 Sodium 141 (136-145) mmol/L Potassium 3.2 L (3.5-5.1) mmol/L Chloride 110 H (98-107) mmol/L Carbon Dioxide 24 (21-32) mmol/L BUN 7 (6-23) mg/dl Creatinine 0.94 (0.6-1.2) mg/dl Glucose 111 H (70-99(Fasting)) mg/dl Calcium 9.2 (8.6-10.3) mg/dl Direct Bilirubin 0.9 H (0-0.2) mg/dl AST 33 (13-39) U/L ALT 18 (7-52) U/L Alkaline Phosphatase 98 (34-104) U/L Total Protein 4.6 L (6.0-8.3) gm/dl Albumin 2.9 L (3.4-5.0) gm/dl Intake and Output 06/20/22 06/20/22 06/20/22 06:59 14:59 22:59 Intake Total 1542.500 / 1542.500 Output Total 1 / 3 2 / 2 Balance -1 / 9340.812 5754.500 / 1540.500 Intake: IV 1232.500 / 1232.500 Magnesium Sulfate / D5w 1 gm In 39.167 / 39.167 100 ml @ 50 mls/hr IV Q2H PRIM[facility]O Rx#:[id number] Potassium Chloride / Wtr 10 meq 193.333 / 193.333 In 100 ml @ 100 mls/hr IV Q1H PR[facility]O Rx#:[id number] Sodium Chloride 0.9% 1000ML 1, 1000 / 1000 000 ml @ 100 mls/hr IV .Q10H PRIMITIVO Rx#:[id number] Intake (Blood Product) Amt 310 / 310 Packed Cells, Leukoreduced 310 / 310 Unit [id number] Output: # Bowel Movements 1 / 3 2 / 2 Other: # Unmeasured Voids 1 3 Weight 77.8 kg Weight Measurement Method Built in [facility] Abdomen/Pelvis CT 06/18/22 18:48 Exam(s): CT ABDOMEN + PELVIS With Contrast EXAM: CT Abdomen and Pelvis With Intravenous Contrast CLINICAL HISTORY: Reason for exam: Abd pain. TECHNIQUE: Axial computed tomography images of the abdomen and pelvis with intravenous contrast. Automated exposure control was utilized for the study. A dose lowering technique was utilized adhering to the principles of ALARA. CONTRAST: 83 cc of Optiray 350 COMPARISON: CT abdomen on 12/23/2021 FINDINGS: Lung bases: Unremarkable. No mass. No consolidation. ABDOMEN: Liver: Cirrhotic liver. Gallbladder and bile ducts: Prior cholecystectomy. Probable postcholecystectomy ductal ectasia. Pancreas: Unremarkable. No mass. No ductal dilation. Spleen: Splenomegaly. Adrenals: Unremarkable. No mass. Kidneys and ureters: Unremarkable. No hydronephrosis or obstructing stone. Stomach and bowel: Diverticulosis without definite evidence of diverticulitis. Wall thickening of the colon may be at least in part secondary to underdistention. Colitis is not excluded. Evaluation of the stomach is limited by underdistention. PELVIS: Appendix: Appendix is not definitely visualized on this exam. Bladder: Mild prominence of the bladder wall may be secondary to under distention. Reproductive: Prior hysterectomy. ABDOMEN and PELVIS: Intraperitoneal space: Moderate ascites. Wall thickening of the small bowel loops may be secondary to under distention versus ascites versus enteritis. No free air. Bones/joints: Stable superior endplate compression deformity of the L4 vertebral body. Degenerative changes of the spine. No dislocation. Soft tissues: Unremarkable. Vasculature: Phleboliths in the pelvis. Atherosclerotic changes of the vasculature. No aortic aneurysm or dissection. Lymph nodes: Unremarkable. No enlarged lymph nodes. IMPRESSION: 1. Cirrhotic liver. 2. Moderate ascites and splenomegaly. 3. Wall thickening of the colon may be at least in part secondary to underdistention. Colitis is not excluded. 4. Wall thickening of the small bowel loops may be secondary to under distention versus ascites versus enteritis. Electronically signed by: Werner Gustafson M.D. 06/18/22 21:42 PM Abdomen Ultrasound 06/19/22 12:39 US abdomen ltd ascites CLINICAL HISTORY: New ascites and abdominal pain. COMPARISON STUDY: CT of the abdomen and pelvis June 18, 2022. FINDINGS: The patient presented today for possible paracentesis. Trace fluid within the lower quadrants was noted. A small amount of perihepatic and perisplenic fluid was noted. No suitable window for diagnostic paracentesis was identified. Therefore, no procedure was performed. The liver is cirrhotic. IMPRESSION: Small amount of ascites. No suitable window for diagnostic paracentesis. Therefore, no procedure performed. ACT 112: Negative or not required by law. Electronically signed by: Keven Bettencourt M.D. 06/19/2022 2:13 PM Venous Doppler Study 06/20/22 10:00 RIGHT LOWER EXTREMITY VENOUS DOPPLER CLINICAL HISTORY: Right lower extremity swelling. COMPARISON STUDY: No previous studies for comparison. TECHNIQUE: Sonography of the deep venous system of the right lower extremity was performed. Compression and augmentation were evaluated. FINDINGS: The right common femoral, superficial femoral and popliteal veins were compressible. Augmentation was normal. Flow was shown within the deep calf vessels. Subcutaneous edema of the right lower extremity was noted. IMPRESSION: No evidence of deep venous thrombus within the right lower extremity. ACT 112: Negative or not required by law. Electronically signed by: Keven Bettencourt M.D. 06/20/2022 1:54 PM Hospital Course (1) 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: 67yo female with a history of REBOLLAR cirrhosis (on transplant waitlist), portal hypertension, esophageal varices, hepatic encephalopathy, DM2, HLD, Kelly's esophagus, MDD, KAREN, and hypothyroidism presents with a one-week history of abdominal pain, bloating, nausea, and vomiting. Abdominal pain and nausea, Norovirus positive Also considered exacerbation of cirrhosis, gastritis, and PUD; reportedly w/ Kelly's on EGD ~5 months ago. INR 1.3, alk phos 158, AST/ALT not elevated, Tbili 5.0 CT a/p: cirrhotic liver, moderate ascites, splenomegaly, colonic wall thickening abdominal ultrasound w/ small amount of ascites and no suitable window for diagnostic paracentesis lower suspicion for SBP and at this time Continue chlorthalidone, hyoscyamine, lactulose, rifaximin, PPI, propranolol Avoid Tylenol, avoid NSAIDs; zofran for nausea. Dilaudid d/c'd. Provided Bentyl for a day; can consider as outpatient GI Biofire otherwise negative. - symptoms improved on discharge [id number] iron deficiency anemia Hgb on admission 7.2, slowly worsening over the past few months; no sign of active bleeding; patient had a normal colonoscopy two months ago Differential includes UGIB +/- iron deficiency Iron studies consistent with iron deficiency anemia. Iron 29, ferritin 8.8 (less consistent w/ anemia of chronic disease). Fecal occult neg Continue Protonix 40mg IV BID NPO; GI consulted: no plans for EGD this admission unless develops signs/symptoms of GI bleeding outpatient EGD w/ [facility] scheduled for 07/14/22 per patient 1u PRBC transfused for Hb of 6.1, repeat of 7.9 peripheral smear pending - h/h drop likely dilutional with underlying chronic anemia. -elevated indirect bilirubin likely from cirrhosis. PCP to check CBC in several days. Cirrhosis, indirect hyperbilirubinemia Similar to chronic elevation. Follow CMP. Continue home regimen cirrhosis medications as per above. - further outpatient follow up by GI. Bilateral right worse than left lower extremity swelling x1 month duration Venous duplex neg for DVT DM2 A1c 6.0 this admission HLD: continue rosuvastatin GERD: continue PPI MDD/KAREN: continue home paroxetine, hydroxyzine Hypothyroidism: continue home levothyroxine Patient was DNR/DNI this admission. (2) Intractable nausea and vomiting: (3) Chronic anemia: (4) Hyperlipidemia: (5) Hypertension: (6) Diabetes mellitus type 2 with complications: (7) Elevated bilirubin: (8) Hypothyroidism: (9) Anxiety: Total Time Total Time Spent Total Time Spent (In Minutes): See attending documentation. Discharge Plan Discharge Items Patient Disposition: Home - Self-Care Reason For Visit: NAUSEA, VOMITING Discharge Diagnosis: norovirus anemia Activity: Per Instructions section Non-emergency contact: Primary Care Provider and Information Systems Technician Call non-emergency contact if: you have any medication questions, your symptoms worsen and you have a fever Follow-up/Referrals: Lakisha Arriaga [Primary Care Provider] - (Hospital discharge follow-up within 1 week.) Diet: Carb Consistent or DM2 and Low Sodium (2gm) Addtl Attending Provider Instructions: Hi Mrs. Kurtz, You were admitted to [facility] for abdominal pain, nausea, and vomiting. You have had low blood counts with hemoglobin in the 7s for the past 2 months. You giving 1 unit of blood because your hemoglobin dropped to 6.1. Information Systems Technician was consulted and provided recommendations. Endoscopy was not indicated while inpatient. Your stool did not show blood on the test. Given that your symptoms showed improvement and you're able to tolerate the period diet, you will be discharged home. Please follow-up with your primary care doctor within 1 week. Please have your blood counts checked within a few days of leaving the hospital. I will place the order for this; [facility]. You stated that you will be having an upper endoscopy with [facility] on July 14. I encouraged her to keep this appointment. If the endoscopy does not show a cause of bleed, further work-up to be considered, such as a pill capsule endoscopy (ca jovita that takes pictures while he goes through your digestive tract). No changes were made to your home medication regimen. Your stool was tested for microorganisms. You were found to have norovirus. This is a viral GI diarrheal illness that will resolve on its own. It is contagious, so please follow good hand hygiene precautions. Please call your PCP and/your communications director if there are any change in your symptoms (especially bloody or black stool)or if you have any concerns. Please visit to the ER for severe or urgent symptoms. Pending Studies at Discharge: No Stand-Alone Forms: My [facility], Smoking Cessation Medications and DC Order Prescriptions: No Action levothyroxine 112 mcg tablet 112 mcg PO Q2D Qty: 45 1RF Rx Instructions: 112 mcg PO every other day, alternate with 100 mcg. Take 1st thing in the morning on an empty stomach 30 min prior to any other oral intake. (DME) pen needle, diabetic [BD Ultra-Fine Lani Pen Needle] 32 gauge x 5/32" needle See Rx Instructions .Route Qty: 300 3RF Rx Instructions: Use 3 per day with insulin injection (DME) FreeStyle Lisy 3 Sensor Device See Rx Instructions .Route Qty: 2 11RF Rx Instructions: Change every 14 days chlorthalidone 25 mg tablet 25 mg PO DAILY Qty: 30 5RF omeprazole 40 mg Capsule,Delayed Release(Dr/Ec) 40 mg PO QAM potassium chloride [Klor-Con M20] 20 mEq tablet,ER particles/crystals 20 meq PO BID magnesium oxide 500 mg Tablet 500 mg PO QAM propranolol 20 mg tablet 20 mg PO TID Trulicity 3 mg/0.5 mL pen injector 3 mg subcut WK hydroxyzine HCl 25 mg tablet 25 mg PO HS lactulose 20 gram/30 mL solution 30 g PO TID Novolin R FlexPen 100 unit/mL (3 mL) Insulin Pen 0 unit SUBCUT BID PRN (Reason: Hyperglycemia) levothyroxine 100 mcg tablet 100 mcg PO Q2D Rx Instructions: ALTERNATE EVERY OTHER DAY WITH 112MCG. paroxetine HCl 20 mg tablet 20 mg PO DAILY Xifaxan 550 mg tablet 550 mg PO BID Rx Instructions: BEGIN 06/12/22 X 30 DAYS hyoscyamine sulfate 0.125 mg tablet,disintegrating 0.125 mg PO QID PRN (Reason: Abdominal Pain) rosuvastatin 20 mg tablet 20 mg PO HS Baqsimi 3 mg/actuation spray,non-aerosol 3 mg INTRANASAL .UD PRN (Reason: Hypoglycemia) Women's 50 Plus Multivitamin 400 mcg-500 mg calcium-20 mcg Tablet 1 tab PO QAM Krames/Other Patient Handouts: Managing Type 2 Diabetes Admission Data Admit Date/Time: 06/19/22 00:35 Attending Provider: Lacie Lara Admit Provider: Gopal Koehler Primary Care Provider: Lakisha Arriaga Other Providers: Narayan Aldrich ; Lisa Nelson ; Dar Sarkar Jr Supervising Physician Co-Signing Physician Notes Resident Physician Supervision Note: I independently interviewed and examined the patient and verified the mcnamara history and physical, reviewed labs and image studies and agree with resident findings and care plan.
[2022-06-20 15:07] LABS: Adenovirus F 40/41 PCR Not Detected (NotDetected); Astrovirus PCR Not Detected (NotDetected); Campylobacter PCR Not Detected (NotDetected); Cryptosporidium PCR Not Detected (NotDetected); Cyclospora cayetanensis PCR Not Detected (NotDetected); Entamoeba histolytica PCR Not Detected (NotDetected); Enteroaggregative E.coli(EAEC) Not Detected (NotDetected); Enteropathogenic E.coli (EPEC) Not Detected (NotDetected); Enterotoxigenic E.coli (ETEC) Not Detected (NotDetected); Giardia lamblia PCR Not Detected (NotDetected); Plesiomonas shigelloides PCR Not Detected (NotDetected); Rotavirus A PCR Not Detected (NotDetected); Salmonella PCR Not Detected (NotDetected); Sapovirus PCR Not Detected (NotDetected); Shiga-like Toxin E.coli (STEC) Not Detected (NotDetected); Shigella/Enteroinvasive E.coli Not Detected (NotDetected); Vibrio cholerae PCR Not Detected (NotDetected); Vibrio species PCR Not Detected (NotDetected); Yersinia enterocolitica PCR Not Detected (NotDetected)
[2022-06-20 15:09] LABS: Norovirus GI/GII PCR DETECTED (NotDetected)
[2022-06-20 15:31] LABS: Hematocrit (blood only) 25.9 % (37.0-47.0); Hemoglobin 7.9 g/dl (12.0-16.0)
--- NOTE | 2022-06-20 19:07 | XRay Report ---
KUB CLINICAL HISTORY: assess for sbo/ileus COMPARISON STUDY: CT of the abdomen and pelvis June 18, 2022. FINDINGS: Incidental note is made of cholecystectomy clips. The bowel gas pattern is normal. There is no evidence for a bowel obstruction. Amount of stool is within normal limits. IMPRESSION: No evidence for a bowel obstruction. Unremarkable bowel gas pattern. ACT 112: Negative or not required by law. Electronically signed by: Keven Bettencourt M.D. 06/20/2022 7:05 PM
[2022-06-20] MEDS: ROSUVASTATIN CALCIUM 20 MG TAB PO SCH (20:33)
[2022-06-20] MEDS: hydrOXYzine HCl 25 MG TAB PO SCH (20:34)
[2022-06-20] MEDS: SODIUM CHLORIDE 0.9% 1000ML 1,000 ML IV SCH (20:34)
[2022-06-21] MEDS: LEVOTHYROXINE SODIUM 100 MCG TABLET PO SCH (05:54)
[2022-06-21 06:19] LABS: BUN Creatinine Ratio 6.6 (10-20); Calcium 9.2 mg/dl (8.6-10.3); Est GFR (African American) 74.6 ml/min; Est GFR (Non-African American) 64.4 ml/min; Magnesium 1.5 mg/dl (1.7-2.4); Potassium 3.5 mmol/L (3.5-5.1)
--- NOTE | 2022-06-21 06:54 | Discharge Summary ---
Date of Service June 21, 2022 Admission HPI Per Admitting Provider 67 yo female PMHx REBOLLAR cirrhosis on liver transplant list, hepatic encephalopathy, kelly esophageus, DM2, HLD, hypothyroidism, anxiety, and depression presents with 1 week of worsening abdominal pain, distention, nausea, vomiting. Pain mostly in LLQ with radiation to epigastric area. Associated fatigue and generalized weakness. Denies fever, cough, congestion, chest pain, sob, diarrhea, dysuria, constipation, blood/black in stool or vomit. Compliant with home medications. She does note that there has been a decline in her Hgb over the past few months. She is scheduled for an EGD in July 2022. Follows with [facility]. Admission Exam Per Admitting Provider Constitutional: in no acute distress, pleasant, intact memory. AOx3. Vitals as above. HEENT: Mild jaundice.Dry mucous membranes.Clear oropharynx. Neck: Supple without lymphadenopathy or thyromegaly. Trachea midline. Lungs: Clear to auscultation bilaterally with good effort. Cardiac: Regular rate and rhythm.No murmurs.1+ LE pitting edema bilaterally. 2+ distal peripheral pulses. Abdomen: Bowel sounds present. Soft. Mildly distended. Mild diffuse tenderness predominantly in LLQ and RUQ. Neg murphys.No guarding. MSK: No cyanosis or clubbing. Extremities motor strength 5/5. Skin: No rashes, warm, dry. Neurologic: no focal deficits. PERRL. Principal Diagnosis norovirus anemia Discharge Exam Patient states she is feeling good today. She has not eaten since last night's dinner and has not had abdominal pain which she rates as a 0 out of 10. She reports a mild headache. She has had mild dysuria and vaginal burning sensation that she states have been chronic, prior to this admission. No fever or chills, chest pain, or shortness of breath. General: Grossly A&O. NAD. Cooperative. HEENT: Atraumatic, normocephalic. Pulm: CTAB. -wheezes, -rales, -rhonchi. No respiratory distress. Cardiac: RRR, -mrg. RLE puffy appearance, +swelling. Abdominal: Soft, nontender, nondistended Discharge Data Allergies Allergy/AdvReac Type Severity Reaction Status Date / Time bee venom protein (honey bee) Allergy Severe Anaphylaxis Verified 06/18/22 22:18 Influenza Virus Vaccines Allergy Severe Anaphylaxis Verified 06/18/22 22:18 tetracycline AdvReac Severe Severe Verified 06/18/22 22:18 stomach pains Consultations 06/18/22 22:40 ED Decision to Admit Stat 06/19/22 08:15 Consult Gastroenterology Routine Ordered Studies 06/18/22 18:48 CT abd pelvis IV con only Stat 06/19/22 12:39 US abdomen ltd ascites Routine 06/20/22 10:00 US venous doppler LE RT Routine Hospital Course (1) 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: 67yo female with a history of REBOLLAR cirrhosis (on transplant waitlist), portal hypertension, esophageal varices, hepatic encephalopathy, DM2, HLD, Kelly's esophagus, MDD, KAREN, and hypothyroidism presents with a one-week history of abdominal pain, bloating, nausea, and vomiting. Abdominal pain and nausea, Norovirus positive Also considered exacerbation of cirrhosis, gastritis, and PUD; reportedly w/ Kelly's on EGD ~5 months ago. INR 1.3, alk phos 158, AST/ALT not elevated, Tbili 5.0 CT a/p: cirrhotic liver, moderate ascites, splenomegaly, colonic wall thickening abdominal ultrasound w/ small amount of ascites and no suitable window for diagnostic paracentesis lower suspicion for SBP and at this time Continue chlorthalidone, hyoscyamine, lactulose, rifaximin, PPI, propranolol Avoid Tylenol, avoid NSAIDs; zofran for nausea. Dilaudid d/c'd. Provided Bentyl for a day; can consider as outpatient GI Biofire otherwise negative. - symptoms improved on discharge [id number] iron deficiency anemia Hgb on admission 7.2, slowly worsening over the past few months; no sign of active bleeding; patient had a normal colonoscopy two months ago Differential includes UGIB +/- iron deficiency, dilutional Iron studies consistent with iron deficiency anemia. Iron 29, ferritin 8.8 (less consistent w/ anemia of chronic disease). Fecal occult neg Continue Protonix 40mg IV BID NPO; GI consulted: no plans for EGD this admission unless develops signs/symptoms of GI bleeding outpatient EGD w/ [facility] scheduled for 07/14/22 per patient 1u PRBC transfused for Hb of 6.1, repeat of 7.9, 7.2 peripheral smear pending check B12, folate PCP to check CBC in several days. Dysuria, chronic 4/6 UA neg. Consider other etiologies such as atrophic vaginitis, yeast infection, or irritation from diarrhea. Cirrhosis, indirect hyperbilirubinemia Similar to chronic elevation, likely from cirrhosis. Follow CMP. Continue home regimen cirrhosis medications as per above. - further outpatient follow up by GI. Bilateral right worse than left lower extremity swelling x1 month duration Venous duplex neg for DVT DM2 A1c 6.0 this admission HLD: continue rosuvastatin GERD: continue PPI MDD/KAREN: continue home paroxetine, hydroxyzine Hypothyroidism: continue home levothyroxine Patient was DNR/DNI this admission. (2) Intractable nausea and vomiting: (3) Chronic anemia: (4) Hyperlipidemia: (5) Hypertension: (6) Diabetes mellitus type 2 with complications: (7) Elevated bilirubin: (8) Hypothyroidism: (9) Anxiety: (10) Dysuria: Total Time Total Time Spent Total Time Spent (In Minutes): <30 Discharge Plan Discharge Items Patient Disposition: Home - Self-Care Reason For Visit: NAUSEA, VOMITING Discharge Diagnosis: norovirus anemia Activity: Per Instructions section Non-emergency contact: Primary Care Provider and Iuss Analyst Call non-emergency contact if: you have any medication questions, your symptoms worsen and you have a fever Follow-up/Referrals: Lakisha Arriaga [Primary Care Provider] - (Hospital discharge follow-up within 1 week.) Diet: Carb Consistent or DM2 and Low Sodium (2gm) Addtl Attending Provider Instructions: Hi Mrs. Kurtz, You were admitted to [facility] for abdominal pain, nausea, and vomiting. You have had low blood counts with hemoglobin in the 7s for the past 2 months. You giving 1 unit of blood because your hemoglobin dropped to 6.1. Iuss Analyst was consulted and provided recommendations. Endoscopy was not indicated while inpatient. Your stool did not show blood on the test. Given that your symptoms showed improvement and you're able to tolerate the period diet, you will be discharged home. Please follow-up with your primary care doctor within 1 week. Please have your blood counts checked within a few days of leaving the hospital. I will place the order for this; [facility]. You stated that you will be having an upper endoscopy with [facility] on July 14. I encouraged her to keep this appointment. If the endoscopy does not show a cause of bleed, further work-up to be considered, such as a pill capsule endoscopy (camera that takes pictures while he goes through your digestive tract). No changes were made to your home medication regimen. Your stool was tested for microorganisms. You were found to have norovirus. This is a viral GI diarrheal illness that will resolve on its own. It is contagious, so please follow good hand hygiene precautions. Please call your PCP and/your master brewer if there are any change in your symptoms (especially bloody or black stool)or if you have any concerns. Please visit to the ER for severe or urgent symptoms. Pending Studies at Discharge: No Stand-Alone Forms: My [facility] [employer], Smoking Cessation Medications and DC Order Prescriptions: No Action levothyroxine 112 mcg tablet 112 mcg PO Q2D Qty: 45 1RF Rx Instructions: 112 mcg PO every other day, alternate with 100 mcg. Take 1st thing in the morning on an empty stomach 30 min prior to any other oral intake. (DME) pen needle, diabetic [BD Ultra-Fine Lani Pen Needle] 32 gauge x 5/32" needle See Rx Instructions .Route Qty: 300 3RF Rx Instructions: Use 3 per day with insulin injection (DME) FreeStyle Lisy 3 Sensor Device See Rx Instructions .Route Qty: 2 11RF Rx Instructions: Change every 14 days chlorthalidone 25 mg tablet 25 mg PO DAILY Qty: 30 5RF omeprazole 40 mg Capsule,Delayed Release(Dr/Ec) 40 mg PO QAM potassium chloride [Klor-Con M20] 20 mEq tablet,ER particles/crystals 20 meq PO BID magnesium oxide 500 mg Tablet 500 mg PO QAM propranolol 20 mg tablet 20 mg PO TID Trulicity 3 mg/0.5 mL pen injector 3 mg subcut WK hydroxyzine HCl 25 mg tablet 25 mg PO HS lactulose 20 gram/30 mL solution 30 g PO TID Novolin R FlexPen 100 unit/mL (3 mL) Insulin Pen 0 unit SUBCUT BID PRN (Reason: Hyperglycemia) levothyroxine 100 mcg tablet 100 mcg PO Q2D Rx Instructions: ALTERNATE EVERY OTHER DAY WITH 112MCG. paroxetine HCl 20 mg tablet 20 mg PO DAILY Xifaxan 550 mg tablet 550 mg PO BID Rx Instructions: BEGIN 06/12/22 X 30 DAYS hyoscyamine sulfate 0.125 mg tablet,disintegrating 0.125 mg PO QID PRN (Reason: Abdominal Pain) rosuvastatin 20 mg tablet 20 mg PO HS Baqsimi 3 mg/actuation spray,non-aerosol 3 mg INTRANASAL .UD PRN (Reason: Hypoglycemia) Women's 50 Plus Multivitamin 400 mcg-500 mg calcium-20 mcg Tablet 1 tab PO QAM Madeline/Other Patient Handouts: Managing Type 2 Diabetes Admission Data Admit Date/Time: 06/19/22 00:35 Attending Provider: Moiz Salvador Admit Provider: Gopal Koehler Primary Care Provider: Lakisha Arriaga Other Providers: Narayan Aldrich ; Lisa Nelson ; Dar Sarkar Jr ; Lacie Lara
[2022-06-21] MEDS ORDERED: POTASSIUM CHLORIDE CRTAB 20 MEQ TABCR PO STA (07:32)
[2022-06-21] MEDS: PANTOprazole 40 MG in SYRINGE 0 ML IV SCH ×2 (07:53→20:07)
[2022-06-21] MEDS: POTASSIUM CHLORIDE / WTR 10 MEQ/100 ML PLCT IV SCH ×2 (07:53→09:39)
[2022-06-21] MEDS: MAGNESIUM SULFATE / D5W 1 GM/100 ML BAG IV SCH ×4 (07:53→14:32)
[2022-06-21] MEDS: PARoxetine HCL 20 MG TAB PO SCH (07:54)
[2022-06-21] MEDS: MAGNESIUM OXIDE 400 MG TAB PO SCH (07:54)
[2022-06-21] MEDS: CHLORTHALIDONE 25 MG TAB PO SCH (07:54)
[2022-06-21] MEDS: LACTULOSE SYRUP 30 GM/45 ML UDP PO SCH ×3 (07:54→20:07)
[2022-06-21] MEDS: POTASSIUM CHLORIDE CRTAB 20 MEQ TABCR PO SCH ×2 (07:55→16:53)
[2022-06-21] MEDS: DICYCLOMINE HCL 20 MG TAB PO SCH ×2 (07:55→20:07)
[2022-06-21] MEDS: PROPRANOLOL HCL 20 MG TAB PO SCH ×3 (07:55→20:07)
[2022-06-21] MEDS: rifAXIMin 550 MG TABLET PO SCH ×2 (07:55→20:07)
[2022-06-21 08:26] LABS: Hematocrit (blood only) 23.2 % (37.0-47.0); Hemoglobin 7.2 g/dl (12.0-16.0); Mean Corpuscular Hemoglobin 22.6 pg (25.0-34.0); Mean Platelet Volume 9.6 fL (9.4-12.4); Platelet Count 142 K/uL (130-400); RDW Coefficient of Variation 18.7 % (11.5-14.5); Red Blood Count 3.18 M/uL (4.20-5.40); White Blood Count 3.71 K/ul (4.8-10.8)
[2022-06-21 10:25] LABS: Vitamin B12 > 1500 pg/ml (180-914)
--- NOTE | 2022-06-21 11:35 | Hospitalist Progress Note ---
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 Abdominal, nausea, diarrhea; Norovirus positive Also considered exacerbation of cirrhosis, gastritis, and PUD. INR 1.3, alk phos 158, AST/ALT not elevated, Tbili 5.0 CT a/p: cirrhotic liver, moderate ascites, splenomegaly, colonic wall thickening abdominal ultrasound w/ small amount of ascites and no suitable window for diagnostic paracentesis lower suspicion for SBP Continue chlorthalidone, hyoscyamine, lactulose, rifaximin, PPI, propranolol Avoid Tylenol, avoid NSAIDs; zofran for nausea. Dilaudid d/c'd. Bentyl. GI Biofire otherwise negative. Gentle hydration. [id number] iron deficiency anemia Hgb on admission 7.2, slowly worsening over the past few months; no sign of active bleeding 06/18/22 Iron 29, ferritin 8.8 (less consistent w/ anemia of chronic disease). Differential includes dilutional, UGIB, occult GIB. B12, folate wnl. Fecal occult neg Continue Protonix 40mg IV BID. 40mg PO BID temporarily until EGD upon discharge. GI consulted: no plans for EGD this admission unless develops signs/symptoms of GI bleeding outpatient EGD w/ [facility] scheduled for 07/14/22 per patient. 03/06/22 EGD w/ mild chronic Moeller's per biopsy. 1u PRBC transfused for Hb of 6.1, repeat of 7.9, 7.2 peripheral smear pending Follow CBC Dysuria, chronic / UA neg. Consider other etiologies such as atrophic vaginitis, yeast infection, or irritation from diarrhea. Cirrhosis, indirect hyperbilirubinemia Similar to chronic elevation, likely from cirrhosis. Follow CMP. Continue home regimen cirrhosis medications as per above. Further outpatient follow up by GI. Hypokalemia, hypomagnesemia Repleting. Follow labs. Bilateral right worse than left lower extremity swelling x1 month duration Venous duplex neg for DVT DM2 A1c 6.0 this admission. Check bsg achs. HLD: continue rosuvastatin GERD: continue PPI MDD/KAREN: continue home paroxetine, hydroxyzine Hypothyroidism: continue home levothyroxine FEN/GI: DM2, low Na, low fiber. NSS 60 mL. dvt ppx: SCDs only code: DNR/DNI dispo: med surg as of 06/20 (2) Intractable nausea and vomiting: (3) Chronic anemia: (4) Hyperlipidemia: (5) Hypertension: (6) Diabetes mellitus type 2 with complications: (7) Elevated bilirubin: (8) Hypothyroidism: (9) Anxiety: (10) Dysuria: (11) Hypomagnesemia: (12) Urinary tract infection: Admission and Anticipated Discharge Date Admission Date: June 19, 2022 Supervising Physician Co-Signing Physician Notes I also saw the patient and confirmed mcnamara portions of the history and physical examination. I agree with the impression and plan as noted in the resident documentation. Aurelia did not have much of an appetite this morning. Does not feel worse, but sounds like no better compared to yesterday. EXAM 119/52, 74, 16, 37.1, 90% room air Respirations are non-labored, lungs are clear Heart regular rate and rhythm DATA Hemoglobin 7.2 BMP unremarkable IMPRESSION AND PLAN Abdominal pain/nausea secondary to norovirus Cirrhosis secondary to REBOLLAR GI consultation appreciated Continue IV fluids Advance diet as tolerated Anemia, acute on chronic Status posttransfusion of 1 unit packed red blood cells 06/20/2022 Recheck in a.m. to assure stability She is scheduled for an EGD at [facility] early next month Continue work-up as outpatient Additional per resident documentation Subjective 7AM: Patient states she is feeling good today. She has not eaten since last night's dinner and has not had abdominal pain which she rates as a 0 out of 10. She reports a mild headache. She has had mild dysuria and vaginal burning sensation that she states have been chronic, prior to this admission. No fever or chills, chest pain, or shortness of breath. 11AM: Has slight abdominal discomfort. + fatigue. Appetite is poor. 4PM: Patient asleep. Per nursing patient tolerated most of her meal, but did have diarrhea right after. Review of Systems Review of Systems: All systems reviewed & are unremarkable except as noted in HPI & below Physical Exam Physical Exam: General: Grossly A&O. NAD. Cooperative. HEENT: Atraumatic, normocephalic. Pulm: CTAB. -wheezes, -rales, -rhonchi. No respiratory distress. Cardiac: RRR, -mrg. RLE puffy appearance, +swelling. Abdominal: Soft, nontender, nondistended Results & Data Results & Data Vital Signs (Past 12 Hours) Vital Signs Temp Pulse Resp BP BP Pulse Ox O2 Del Method 06/21/22 11:02 37.1 C 74 16 119/52 L 97 Room Air 06/21/22 08:03 36.9 C 76 18 137/61 97 Room Air 06/21/22 03:09 36.8 C 87 22 106/48 L 93 Room Air Resident Activity Tracking Resident Involvement: Resident Care Provided Care Provided: Adult Hospital Medicine (4) Hyperlipidemia Hyperlipidemia type: unspecified Qualified Code(s): E78.5 - Hyperlipidemia, unspecified (5) Hypertension Hypertension type: primary hypertension Qualified Code(s): I10 - Essential (primary) hypertension (8) Hypothyroidism Hypothyroidism type: unspecified Qualified Code(s): E03.9 - Hypothyroidism, unspecified (12) Urinary tract infection Hematuria presence: without hematuria Urinary tract infection type: acute cystitis Qualified Code(s): N30.00 - Acute cystitis without hematuria
[2022-06-21] MEDS: SODIUM CHLORIDE 0.9% 1000ML 1,000 ML IV SCH (12:26)
[2022-06-21] MEDS: hydrOXYzine HCl 25 MG TAB PO SCH (20:07)
[2022-06-21] MEDS: ROSUVASTATIN CALCIUM 20 MG TAB PO SCH (20:07)
[2022-06-22] MEDS: SODIUM CHLORIDE 0.9% 1000ML 1,000 ML IV SCH (05:15)
[2022-06-22] MEDS: LEVOTHYROXINE SODIUM 112 MCG TABLET PO SCH (05:16)
[2022-06-22 08:30] LABS: Hematocrit (blood only) 24.5 % (37.0-47.0); Hemoglobin 7.5 g/dl (12.0-16.0); Mean Corpuscular Hemoglobin 22.7 pg (25.0-34.0); Mean Corpuscular Hgb Conc 30.6 g/dL (32.0-36.0); Mean Corpuscular Volume 74.2 fL (80.0-100.0); Mean Platelet Volume 9.4 fL (9.4-12.4); Nucleated RBC # (auto) 0.02 K/uL (0-0.12); Nucleated RBC % (auto) 0.4 %; Platelet Count 141 K/uL (130-400); RDW Coefficient of Variation 19.2 % (11.5-14.5); RDW Standard Deviation 49.8 fL (36.4-46.3); White Blood Count 4.69 K/ul (4.8-10.8)
[2022-06-22] MEDS: rifAXIMin 550 MG TABLET PO SCH (08:32)
[2022-06-22] MEDS: CHLORTHALIDONE 25 MG TAB PO SCH (08:33)
[2022-06-22] MEDS: PARoxetine HCL 20 MG TAB PO SCH (08:33)
[2022-06-22] MEDS: MAGNESIUM OXIDE 400 MG TAB PO SCH (08:33)
[2022-06-22] MEDS: DICYCLOMINE HCL 20 MG TAB PO SCH (08:34)
[2022-06-22] MEDS: LACTULOSE SYRUP 30 GM/45 ML UDP PO SCH ×2 (08:34→15:15)
[2022-06-22] MEDS: POTASSIUM CHLORIDE CRTAB 20 MEQ TABCR PO SCH ×2 (08:35→16:44)
[2022-06-22] MEDS: PROPRANOLOL HCL 20 MG TAB PO SCH ×2 (08:35→15:16)
[2022-06-22] MEDS: PANTOprazole 40 MG in SYRINGE 0 ML IV SCH (08:37)
[2022-06-22 09:35] LABS: Albumin Globulin Ratio 1.8 (0.9-2); Albumin Level 2.9 gm/dl (3.4-5.0); BUN Creatinine Ratio 8.5 (10-20); Bilirubin,Total 3.8 mg/dl (0.2-1.0); Calcium 9.2 mg/dl (8.6-10.3); Creatinine Clr Calc Pharmacy 55.3 ml/min; Est GFR (African American) 71.7 ml/min; Est GFR (Non-African American) 61.9 ml/min; Globulin 1.6 gm/dl (2.5-4.0); Magnesium 1.6 mg/dl (1.7-2.4); Potassium 3.7 mmol/L (3.5-5.1); Total Protein 4.5 gm/dl (6.0-8.3)
--- NOTE | 2022-06-22 12:40 | Gastroenterology Progress Note ---
Date of Service June 22, 2022 Assessment & Plan (1) Intractable nausea and vomiting: Plan: Symptom lott she is doing well. Anemia is still an issue. This could be related to her liver disease. I would defer to transplant team as to further workup. Capsule endoscopy could be done as an outpatient. Admission and Anticipated Discharge Date Admission Date: June 22, 2022 Subjective Saw discharge summary so did not see patient this weekend. She is a little fuzzy about why she was kept. She is feeling well now. She ate all of her meal without issues. She has no pain Physical Exam Physical Exam: She looks well Results & Data Vital Signs (Past 12 Hours) Vital Signs Temp Pulse Resp BP BP Pulse Ox O2 Del Method 06/22/22 11:00 36.9 C 75 18 126/62 96 Room Air 06/22/22 07:52 36.8 C 73 18 132/64 96 Room Air 06/22/22 03:35 36.7 C 70 20 123/53 L 95 Room Air
--- NOTE | 2022-06-22 18:26 | Discharge Summary ---
Date of Service June 22, 2022 Principal Diagnosis Norovirus infection Discharge Exam Constitutional WD/WN, vitals as above Eyes + scleral abnormality Neck trachea midline, no thyromegaly Respiratory normal respiratory effort, lungs clear to auscultation Cardiovascular Rate/Rhythm: regular rate and regular rhythm Gastrointestinal (Abdomen) normal bowel sounds, soft, nontender, no hepatosplenomegaly Musculoskeletal Head/Neck/Chest: normocephalic and head atraumatic Skin no rashes, warm and dry Neurologic moves all extremities Psychiatric A+Ox3, euthymic affect Discharge Data Allergies Allergy/AdvReac Type Severity Reaction Status Date / Time bee venom protein (honey bee) Allergy Severe Anaphylaxis Verified 06/18/22 22:18 Influenza Virus Vaccines Allergy Severe Anaphylaxis Verified 06/18/22 22:18 tetracycline AdvReac Severe Severe Verified 06/18/22 22:18 stomach pains Consultations 06/18/22 22:40 ED Decision to Admit Stat 06/19/22 08:15 Consult Gastroenterology Routine Ordered Studies 06/18/22 18:48 CT abd pelvis IV con only Stat 06/19/22 12:39 US abdomen ltd ascites Routine 06/20/22 10:00 US venous doppler LE RT Routine Hospital Course (1) 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: 67yo female with a history of REBOLLAR cirrhosis (on transplant waitlist), portal hypertension, esophageal varices, hepatic encephalopathy, DM2, HLD, Moeller's esophagus, MDD, KAREN, and hypothyroidism presents with a one-week history of abdominal pain, bloating, nausea, and vomiting. Abdominal, nausea, diarrhea; Norovirus positive Also considered exacerbation of cirrhosis, gastritis, and PUD. INR 1.3, alk phos 158, AST/ALT not elevated, Tbili 5.0 CT a/p: cirrhotic liver, moderate ascites, splenomegaly, colonic wall thickening abdominal ultrasound w/ small amount of ascites and no suitable window for diagnostic paracentesis lower suspicion for SBP Continue chlorthalidone, hyoscyamine, lactulose, rifaximin, PPI, propranolol Avoid Tylenol, avoid NSAIDs; zofran for nausea. Dilaudid d/c'd. Bentyl. GI Biofire otherwise negative. Gentle hydration. [id number] iron deficiency anemia Hgb on admission 7.2, slowly worsening over the past few months; no sign of active bleeding, 7.5 at d/c 06/18/22 Iron 29, ferritin 8.8 (less consistent w/ anemia of chronic disease). Differential includes dilutional, UGIB, occult GIB. B12, folate wnl. Fecal occult neg Continue Protonix 40mg IV BID. 40mg PO BID temporarily until EGD upon discharge. GI consulted: no plans for EGD this admission unless develops signs/symptoms of GI bleeding outpatient EGD w/ [facility] scheduled for 07/14/22 per patient. 03/06/22 EGD w/ mild chronic Moeller's per biopsy. 1u PRBC transfused for Hb of 6.1, repeat of 7.9, 7.2 peripheral smear pending Follow CBC in 3 days post discharge Dysuria, chronic 4/6 UA neg. Consider other etiologies such as atrophic vaginitis, yeast infection, or irritation from diarrhea. Cirrhosis, indirect hyperbilirubinemia Similar to chronic elevation, likely from cirrhosis. Follow CMP in 3 days. Continue home regimen cirrhosis medications as per above. Further outpatient follow up by GI. Hypokalemia, hypomagnesemia Repleted Bilateral right worse than left lower extremity swelling x1 month duration Venous duplex neg for DVT DM2 A1c 6.0 this admission. Check bsg achs. HLD: continue rosuvastatin GERD: continue PPI MDD/KAREN: continue home paroxetine, hydroxyzine Hypothyroidism: continue home levothyroxine code: DNR/DNI dispo: D/c home (2) Intractable nausea and vomiting: (3) Chronic anemia: (4) Hyperlipidemia: (5) Hypertension: (6) Diabetes mellitus type 2 with complications: (7) Elevated bilirubin: (8) Hypothyroidism: (9) Anxiety: (10) Dysuria: (11) Hypomagnesemia: (12) Urinary tract infection: Total Time Total Time Spent Total Time Spent (In Minutes): 30 Discharge Plan Discharge Items Patient Disposition: Home - Self-Care Reason For Visit: NAUSEA, VOMITING Discharge Diagnosis: norovirus anemia Activity: Per Instructions section Non-emergency contact: Primary Care Provider and Yardage Caller Call non-emergency contact if: you have any medication questions, your symptoms worsen and you have a fever Follow-up/Referrals: Lakisha Arriaga [Primary Care Provider] - (Hospital discharge follow-up within 1 week.) Diet: Carb Consistent or DM2 and Low Sodium (2gm) Ambulatory Orders: Complete Blood Count no Diff (Routine) Timeframe: 3 Days Location: Determined by Patient Ordered By: Jose Swanson Comprehensive Metabolic Panel (Routine) Timeframe: 3 Days Location: Determined by Patient Ordered By: Jose Guajardo Attending Provider Instructions: Hi Mrs. Kurtz, You were admitted to [facility] for abdominal pain, nausea, and vomiting. You have had low blood counts with hemoglobin in the 7s for the past 2 months. You giving 1 unit of blood because your hemoglobin dropped to 6.1. Yardage Caller was consulted and provided recommendations. Endoscopy was not indicated while inpatient. Your stool did not show blood on the test. Given that your symptoms showed improvement and you're able to tolerate the period diet, you will be discharged home. Please follow-up with your primary care doctor within 1 week. Please have your blood counts checked within a few days of leaving the hospital. I will place the order for this; you can obtain from the [facility] lab. You stated that you will be having an upper endoscopy with [facility] on July 14. I encouraged her to keep this appointment. If the endoscopy does not show a cause of bleed, further work-up to be considered, such as a pill capsule endoscopy (camera that takes pictures while he goes through your digestive tract). No changes were made to your home medication regimen. Your stool was tested for microorganisms. You were found to have norovirus. This is a viral GI diarrheal illness that will resolve on its own. It is contagious, so please follow good hand hygiene precautions. Please call your PCP and/your area field manager if there are any change in your symptoms (especially bloody or black stool)or if you have any concerns. Please visit to the ER for severe or urgent symptoms. Pending Studies at Discharge: No Stand-Alone Forms: [facility], Smoking Cessation Medications and DC Order Prescriptions: Continued levothyroxine 112 mcg tablet 112 mcg PO Q2D Qty: 45 1RF Rx Instructions: 112 mcg PO every other day, alternate with 100 mcg. Take 1st thing in the morning on an empty stomach 30 min prior to any other oral intake. (DME) pen needle, diabetic [BD Ultra-Fine Lani Pen Needle] 32 gauge x 5/32" needle See Rx Instructions .Route Qty: 300 3RF Rx Instructions: Use 3 per day with insulin injection (DME) FreeStyle Lisy 3 Sensor Device See Rx Instructions .Route Qty: 2 11RF Rx Instructions: Change every 14 days chlorthalidone 25 mg tablet 25 mg PO DAILY Qty: 30 5RF omeprazole 40 mg Capsule,Delayed Release(Dr/Ec) 40 mg PO QAM potassium chloride [Klor-Con M20] 20 mEq tablet,ER particles/crystals 20 meq PO BID magnesium oxide 500 mg Tablet 500 mg PO QAM propranolol 20 mg tablet 20 mg PO TID Trulicity 3 mg/0.5 mL pen injector 3 mg subcut WK hydroxyzine HCl 25 mg tablet 25 mg PO HS lactulose 20 gram/30 mL solution 30 g PO TID Novolin R FlexPen 100 unit/mL (3 mL) Insulin Pen 0 unit SUBCUT BID PRN (Reason: Hyperglycemia) levothyroxine 100 mcg tablet 100 mcg PO Q2D Rx Instructions: ALTERNATE EVERY OTHER DAY WITH 112MCG. paroxetine HCl 20 mg tablet 20 mg PO DAILY Xifaxan 550 mg tablet 550 mg PO BID Rx Instructions: BEGIN 06/12/22 X 30 DAYS hyoscyamine sulfate 0.125 mg tablet,disintegrating 0.125 mg PO QID PRN (Reason: Abdominal Pain) rosuvastatin 20 mg tablet 20 mg PO HS Baqsimi 3 mg/actuation spray,non-aerosol 3 mg INTRANASAL .UD PRN (Reason: Hypoglycemia) Women's 50 Plus Multivitamin 400 mcg-500 mg calcium-20 mcg Tablet 1 tab PO QAM Discharge Orders: Discharge Order (Routine); Ordered 06/22/22 Ordered By: Jose Correa/Other Patient Handouts: Managing Type 2 Diabetes, Understanding Norovirus Admission Data Admit Date/Time: 06/22/22 09:32 Attending Provider: Jozef Fairchild Admit Provider: Gopal Koehler Primary Care Provider: Lakisha Arriaga Other Providers: Narayan Aldrich ; Lisa Nelson ; Dar Sarkar Jr ; Lacie Lara Other Interventions: Discharge Summary Assessment (RN) Last Done: 06/22/22 18:39 Supervising Physician Co-Signing Physician Notes I personally examined the patient and verified all mcnamara points of history and exam, discussed case, and agree with decision making with Dr Swanson feeling better eating well would like to go home vitals noted nad heent nc at mmm breathing unlabored no accessory muscles good effort skin no rashes no pallor or icterus intractable nausea/vomiting - norovirus related. now doing better. safe/stable for home. chronic illnesses for outpt follow up
--- NOTE | 2022-06-23 08:21 | Billing Data ---
Date of Service June 22, 2022 Coding Level of Care Code 74982 IN/OBS DISCH 30 MIN/LESS
== END 2022-06-22 19:00 | disposition home or self-care (01) | DRG 392 ==
LOC: ED 18:43 → 2E 06-19 00:35 → SUATTDRO 06-19 00:35 → INTOOBSV 06-19 00:35 → 2E 06-19 01:18

== ENCOUNTER 2022-07-19 13:53 | Inpatient (IN) ==
[2022-07-19] MEDS ORDERED: SODIUM CHLORIDE 0.9% 1000ML 1,000 ML IV STA (14:15)
--- NOTE | 2022-07-19 14:15 | ED Triage Note ---
Date of Service July 19, 2022 History of Present Illness This patient was briefly evaluated while in triage. An abbreviated physical exam was performed. This patient is a 67-year-old Female, history of end-stage liver disease, liver cirrhosis with REBOLLAR, as well as prior history of ascites, who presents to the ED for evaluation of abdominal pain. The patient has a prior history of electrolyte abnormalities, and needs a blood transfusion. The patient has not been out of bed for the past several days with fatigue. reports that her thinking is cloudy, and "needs a tune up." Patient is currently on a liver transplant waiting list. The patient reports upper central pain that is not radiating into the left lower quadrant pain. Patient had an upper endoscopy by Dr. Gilman at [facility] [place] last week. They did find a gastric bleed. Physical Exam CONSTITUTIONAL: Healthy and well nourished. Patient does not appear in any acute distress. HEENT: No scleral icterus or conjunctival injection/pallor. RESPIRATORY: Clear to auscultation bilaterally with no wheezing, crackles, rhonchi or stridor. CARDIOVASCULAR: Regular rate and rhythm with no murmurs, rubs or gallops. GASTROINTESTINAL: Bowel sounds present in all quadrants. Patient has mild generalized abdominal tenderness to palpation for MUSCULOSKELETAL: Full range of motion of all joints without discomfort. INTEGUMENTARY: No rash or other significant dermatologic conditions noted. HEMATOLOGIC: No ecchymosis or petechiae. PSYCHIATRIC: Positive affect. NEUROLOGIC: No focal neurologic deficits noted. Initial orders for labs and / or imaging were placed and patient was placed in the waiting area until a bed is available. Please see further documentation for the full ED course.
[2022-07-19 15:01] LABS: Alanine Aminotransferase 22 U/L (7-52); Albumin Globulin Ratio 1.7 (0.9-2); Albumin Level 3.4 gm/dl (3.4-5.0); Alkaline Phosphatase 201 U/L (34-104); Anion Gap 5 (3-11); Aspartate Aminotransferase 42 U/L (13-39); BUN Creatinine Ratio 11.1 (10-20); Bilirubin,Total 5.3 mg/dl (0.2-1.0); Blood Urea Nitrogen 10 mg/dl (6-23); Carbon Dioxide 27 mmol/L (21-32); Chloride 107 mmol/L (98-107); Est GFR (African American) 75.6 ml/min; Est GFR (Non-African American) 65.2 ml/min; Glucose 104 mg/dl (70-99(Fasting)); Lipase 70 U/L (11-82); Magnesium 1.5 mg/dl (1.7-2.4); Potassium 4.1 mmol/L (3.5-5.1); Sodium 139 mmol/L (136-145); Total Protein 5.4 gm/dl (6.0-8.3)
[2022-07-19 15:08] LABS: Troponin I High Sensitivity 6.6 pg/ml (0-14)
[2022-07-19 15:10] LABS: INR 1.3 (0.9-1.1); Prothrombin Time 13.9 Seconds (9.0-12.0)
[2022-07-19 15:16] LABS: Anisocytosis Present; Basophils # (auto) 0.04 K/uL (0-0.2); Basophils % (auto) 0.7 %; Echinocytes 2+; Eosinophils # (auto) 0.64 K/uL (0-0.50); Eosinophils % (auto) 11.3 %; Hematocrit (blood only) 30.2 % (37.0-47.0); Hemoglobin 9.6 g/dl (12.0-16.0); Hypochromasia Present; Immature Granulocytes # (auto) 0.02 K/uL (0.01-0.20); Immature Granulocytes % (auto) 0.4 %; Lymphocytes # (auto) 1.41 K/uL (1.2-3.4); Lymphocytes % (auto) 24.8 %; Mean Corpuscular Hemoglobin 25.5 pg (25.0-34.0); Mean Corpuscular Hgb Conc 31.8 g/dL (32.0-36.0); Mean Corpuscular Volume 80.1 fL (80.0-100.0); Mean Platelet Volume 8.6 fL (9.4-12.4); Monocytes # (auto) 0.95 K/uL (0.11-0.59); Monocytes % (auto) 16.7 %; Neutrophils # (auto) 2.62 K/uL (1.40-6.50); Neutrophils % (auto) 46.1 %; Ovalocytes 1+; Platelet Count 190 K/uL (130-400); Poikilocytosis Present; Polychromasia 1+; RDW Coefficient of Variation 26.8 % (11.5-14.5); RDW Standard Deviation 75.8 fL (36.4-46.3); Red Blood Count 3.77 M/uL (4.20-5.40); Schistocytes 1+; Tear Drop Cells 1+; White Blood Count 5.68 K/ul (4.8-10.8)
[2022-07-19] MEDS ORDERED: MoRPHine SULFATE 4 MG/ML 1 ML CARP\\VIAL IV STA (15:35)
--- NOTE | 2022-07-19 15:37 | Emergency Department Note ---
Impression & Plan Encephalopathy, hepatic Admission ED Provider Note HPI: The patient is a 67-year-old female with history of end-stage Daily cirrhosis, currently on transplant list, presents emergency department with her at the bedside over concern for increased lethargy over the past several days. Patient states she has been very tired, she has not had any vomiting, states she has had some generalized abdominal pain. Patient was recently in [place] at [facility] and had an EGD performed which her tells me showed a stomach ulcer that was not actively bleeding. On arrival here to the ED the patient is hemodynamically stable, she is jaundiced appearing but states this is not new for her, she is afebrile on presentation. ROS: - Per HPI *Outpatient medications and allergy history reviewed. *Pertinent external medical records reviewed. PE: General: Alert, jaundiced appearance HEENT: Normocephalic, trachea midline Eyes: Extraocular eye movement is intact, no scleral erythema, scleral icterus noted Pulmonary: Clear to auscultation bilaterally, no wheezing Cardio: Regular rate and rhythm GI: Abdomen is soft to palpation, nontender, without distention : No suprapubic tenderness MSK: No evidence of trauma or malformation of the extremities, no edema Skin: No evidence of rash Neuro: Alert, no focal deficits Psychiatric: Cooperative retort pre cooker: (As interpreted by myself): - An order was placed for continuous cardiac monitoring - Patient was noted to be in sinus rhythm with a rate of 75 EKG: (As interpreted by myself): Rate: 68 Rhythm: Normal sinus rhythm Intervals: Within normal limits ST changes: No ST elevation Time: 1429 Interventions provided in ED: -Lactulose, IV morphine, IV magnesium Differential Diagnosis: Acute hepatic encephalopathy, spontaneous bacterial peritonitis, small bowel obstruction, obstruction of biliary duct secondary to stone or stricture, symptomatic anemia amongst other potential pathologies. Medical Decision Making: The patient is a 67-year-old female with history of end-stage Daily cirrhosis, presents emergency department with her at the bedside over concern for weakness. Patient has been having some increasing ambulatory issues secondary to generalized weakness and lethargy over the past several weeks. at the bedside states that she has had similar symptoms in the past associated with anemia but she has not had any gross hematemesis or hematochezia recently. Patient is stable on arrival here to the ED, she is jaundiced appearing but she is alert, answers my questions appropriately. states she has been more confused recently. IV was established and lab work obtained, patient was maintained on medical care administrator, patient did complain of abdominal pain although her exam is benign, abdomen is nondistended nontender. CT imaging of the abdomen pelvis was obtained secondary to the patient's history, this does not show any evidence of acute pathology, does show moderate ascites. Low suspicion for spontaneous bacterial peritonitis given reassuring exam, lack of fever, lack of leukocytosis or neutrophilic shift. Laboratory work otherwise shows no leukocytosis, hemoglobin is 9.6 which is much better than the patient's previous levels, magnesium slightly low at 1.5, low suspicion for acute blood loss anemia, platelet count is 190, CMP shows bilirubin level is slightly elevated above previous at 5.8, AST 42, ALT 22, alk phos nonspecific at 201. Ammonia level noted to be 85, patient was given a dose of lactulose here in the ED for what I believe is likely hepatic encephalopathy that at this time is mild, she may also be symptomatic in this regard causing her generalized weakness. I discussed all the above findings with the patient's at the bedside, they are in agreement at this time for admission. Case was discussed with the on-call hospitalist, Dr. Landry, patient was placed for admission in stable condition. Consultants: Hospitalist, Dr. Landry Disposition discussion held by myself with: Patient and at the bedside Diagnosis: 1. Elevated ammonia level 2. History of Daily cirrhosis, end-stage 3. Hypomagnesemia 4. Anemia, chronic, stable 5. Generalized weakness with ambulatory Disposition: Admission Heraclio Doll DO Emergency Medicine Past Med/Surg History Medical History Abdominal pain Abdominal pain Abnormal finding on breast imaging Acute confusion Acute kidney injury Acute UTI LISA (acute kidney injury) Anemia HX Anxiety and depression Arthritis Moeller esophagus Moeller's esophagus with esophagitis Benign essential tremor Benign paroxysmal positional vertigo of left ear Chronic diarrhea SOMETIMES - when takes lactulose Chronic diarrhea 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 Colitis Colitis with rectal bleeding Confusion Dehydration Depression Diabetes mellitus, type 2 Diverticulosis Dizziness Encounter for pre-operative examination Epistaxis Fracture of fourth lumbar vertebra Generalized weakness GERD (gastroesophageal reflux disease) GI bleed RECENT HOSPITALIZED - PT DENIES HX GI BLEED Headache Heel spur B/L feet Hepatic encephalopathy Hepatic encephalopathy Hiatal hernia History of colon polyps BENIGN History of fractured vertebra CURRENT, HX FALL JULY 2021 - FELL OF THE TOILET - NO INTERVENTION AT PRESENT/ DR RE[facility] FOR TO DISCUSS TX OPTIONS - POTENTIAL BACK BRACE History of kidney stones Hyperammonemia Hyperammonemia Hyperbilirubinemia Hypercalcemia Hypercalcemia Hyperlipidemia Hypertension Hypokalemia Hypomagnesemia Hypomagnesemia Hypomagnesemia Hypomagnesemia Hypothyroidism Hypothyroidism Intractable nausea and vomiting Lab test negative for COVID-19 virus Left wrist sprain Liver cirrhosis secondary to DAILY Liver cirrhosis secondary to DAILY Liver disease DAILY (nonalcoholic steatohepatitis) Near syncope Nephrolithiasis Neutropenic typhlitis Pancytopenia Portal hypertension Primary hyperparathyroidism Seasonal allergies Sensorineural hearing loss (SNHL) of both ears asymmetrical, left WRS Spleen enlarged MONITORS - PT REPORTS FROM [facility] [place] keratoses Syncope Syncope Temporomandibular joint disorder 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 Thrombocytopenia Thyroid disease Urge incontinence Urinary tract infection UTI (urinary tract infection) HX, JULY 2021 -HOSPITALIZED FOR , NOW RESOLVED DURING TESTING FOUND 2 LUMPS IN INTESTINES...REASON FOR UPCOMING COLONOSCOPY UTI (urinary tract infection) Weakness Weakness Weakness Surgical History H/O thumb surgery RT/LEFT JOINT REPAIR H/O total hysterectomy History of appendectomy History of arthroscopy of knee Left Knee - meniscus/cartilage History of colonoscopy History of cystoscopy History of esophagogastroduodenoscopy (EGD) History of tonsillectomy and adenoidectomy History of tooth extraction Hx of cholecystectomy Family History Brother Coronary heart disease Heart disease Mother Family history of diabetes mellitus Hypertension Heart disease Sister Family history of diabetes mellitus Son Family history of diabetes mellitus Father Family hx of colon cancer Hearing loss Hypertension Cancer Heart disease Grandfather (Maternal) Family hx of colon cancer Other No family history of adverse response to anesthesia No family history of bleeding disorder Social History Smoking Status: Never smoker Second Hand Exposure: No; Do You Dip or Chew Tobacco: No; Hx Alcohol Use: No Hx Substance Use: No Preferred Language: Albanian Communication Ability: Effective Line Lead Required: No Beliefs That Will Affect Care: None marital status: Current Living Situation: Spouse Current Living Situation Comment: and sister current occupational status: employed and retired How many Children do You have: 0 Feels Safe at Home: Yes Assistive Devices: Cane Allergies Allergies Allergy/AdvReac Type Severity Reaction Status Date / Time bee venom protein (honey bee) Allergy Severe Anaphylaxis Verified 06/18/22 22:18 Influenza Virus Vaccines Allergy Severe Anaphylaxis Verified 06/18/22 22:18 tetracycline AdvReac Severe Severe Verified 06/18/22 22:18 stomach pains Home Meds Home Medications Medication Instructions Recorded Confirmed [id number] ac 400 1 tab PO QAM 07/15/21 07/19/22 mcg-calcium carb 500 mg-vit K1 20 mcg tablet (Women's 50 Plus Multivitamin) omeprazole 40 mg capsule,delayed 40 mg PO QAM 11/04/21 07/19/22 release potassium chloride 20 mEq 20 meq PO BID 12/22/21 07/19/22 tablet,extended release(part/cryst) (Klor-Con M) magnesium oxide 500 mg tablet 500 mg PO QAM 01/22/22 07/19/22 dulaglutide 3 mg/0.5 mL 3 mg subcut WK 06/18/22 07/19/22 subcutaneous pen injector (Trulicity) glucagon 3 mg/actuation nasal 3 mg intranasal .UD PRN 06/18/22 07/19/22 spray (Baqsimi) Hypoglycemia hydroxyzine HCl 25 mg tablet 25 mg PO HS 06/18/22 07/19/22 hyoscyamine sulfate 0.125 mg 0.125 mg PO QID PRN Abdominal Pain 06/18/22 07/19/22 disintegrating tablet insulin regular human 100 unit/mL 0 unit subcut BID PRN Hyperglycemia 06/18/22 07/19/22 (3 mL) subcutaneous pen (Novolin R FlexPen) lactulose 20 gram/30 mL oral 30 g PO TID 06/18/22 07/19/22 solution levothyroxine 100 mcg tablet 100 mcg PO Q2D 06/18/22 07/19/22 paroxetine HCl 20 mg tablet 20 mg PO DAILY 06/18/22 07/19/22 propranolol 20 mg tablet 20 mg PO TID 06/18/22 07/19/22 rifaximin 550 mg tablet (Xifaxan) 550 mg PO BID 06/18/22 07/19/22 rosuvastatin 20 mg tablet 20 mg PO HS 06/18/22 07/19/22 ondansetron 4 mg disintegrating 4 mg PO TID PRN Nausea And Vomiting 07/19/22 07/19/22 tablet propranolol 80 mg capsule,24 80 mg PO DAILY 07/19/22 07/19/22 hr,extended release tramadol 50 mg tablet 50 mg PO Q4 PRN Pain 07/19/22 07/19/22 Previous Rx's Medication Instructions Recorded levothyroxine 112 mcg tablet 112 mcg PO Q2D #45 tabs 02/24/22 chlorthalidone 25 mg tablet 25 mg PO DAILY #30 tabs 06/05/22 pen needle, diabetic 32 gauge x #300 ea 06/12/22" (BD Ultra-Fine Lani Pen Needle) blood-glucose sensor (FreeStyle #2 ea 06/19/22 Lisy 3 Sensor device) Results & Data (ED) Vital Signs Vital Signs - 24 hr 07/19/22 14:11 07/19/22 15:29 07/19/22 15:29 Temperature 36.9 C Temperature Source Temporal Artery Scan Pulse Rate 69 Pulse Rate [Apical] 68 Respiratory Rate 20 18 Respiratory Effort / Characteristics Non-Labored Spontaneous Non-Labored Spontaneous Respiratory Depth Normal Normal Respiratory Pattern Regular Blood Pressure 148/67 H Blood Pressure [Right Arm] 145/71 H Blood Pressure Mean 94 Blood Pressure Mean [Right Arm] 95 Pulse Oximetry 100 99 97 Oxygen Delivery Method Room Air Room Air Room Air Sepsis Recent Fever Within 48 Hours No Sepsis New/Unexplained Change in Mental Status No Sepsis Action Taken by Nursing No Action Required 07/19/22 15:36 07/19/22 16:04 07/19/22 16:31 Temperature Temperature Source Pulse Rate 68 Pulse Rate [Apical] 70 74 Respiratory Rate 20 18 Respiratory Effort / Characteristics Non-Labored Non-Labored Spontaneous Respiratory Depth Normal Normal Respiratory Pattern Blood Pressure Blood Pressure [Right Arm] 142/71 H 142/74 H Blood Pressure Mean Blood Pressure Mean [Right Arm] 94 96 Pulse Oximetry 98 98 Oxygen Delivery Method Room Air Sepsis Recent Fever Within 48 Hours Sepsis New/Unexplained Change in Mental Status Sepsis Action Taken by Nursing 07/19/22 17:34 Temperature Temperature Source Pulse Rate Pulse Rate [Apical] 70 Respiratory Rate 18 Respiratory Effort / Characteristics Non-Labored Spontaneous Respiratory Depth Normal Respiratory Pattern Blood Pressure Blood Pressure [Right Arm] 137/70 Blood Pressure Mean Blood Pressure Mean [Right Arm] 92 Pulse Oximetry 97 Oxygen Delivery Method Room Air Sepsis Recent Fever Within 48 Hours Sepsis New/Unexplained Change in Mental Status Sepsis Action Taken by Nursing Laboratory Data 07/19/22 14:23 07/19/22 14:23 Lab Results 07/19/22 07/19/22 07/19/22 Range/Units 14:18 14:23 14:23 WBC (4.8-10.8) K/ul RBC (4.20-5.40) M/uL Hgb (12.0-16.0) g/dl Hct (37.0-47.0) % MCV (80.0-100.0) fL MCH (25.0-34.0) pg MCHC (32.0-36.0) g/dL RDW Std Deviation (36.4-46.3) fL RDW Coeff of Charlee (11.5-14.5) % Plt Count (130-400) K/uL MPV (9.4-12.4) fL Immature Gran % (Auto) % Neut % (Auto) % Lymph % (Auto) % [place] % (Auto) % Eos % (Auto) % Baso % (Auto) % Neut # (Auto) (1.40-6.50) K/uL Lymph # (Auto) (1.2-3.4) K/uL Rincon # (Auto) (0.11-0.59) K/uL Eos # (Auto) (0-0.50) K/uL Baso # (Auto) (0-0.2) K/uL Immature Gran # (Auto) (0.01-0.20) K/uL Polychromasia Hypochromasia Poikilocytosis Anisocytosis Tear Drop Cells Ovalocytes Echinocytes Schistocytes PT 13.9 H (9.0-12.0) Seconds INR 1.3 H (0.9-1.1) Sodium 139 (136-145) mmol/L Potassium 4.1 (3.5-5.1) mmol/L Chloride 107 (98-107) mmol/L Carbon Dioxide 27 (21-32) mmol/L Anion Gap 5 (3-11) BUN 10 (6-23) mg/dl Creatinine 0.90 (0.6-1.2) mg/dl Est Cr Clr Drug Dosing Not Reportable Est GFR ( Amer) 75.6 ml/min Est GFR (Non-Af Amer) 65.2 ml/min BUN/Creatinine Ratio 11.1 (10-20) Glucose 104 H (70-99(Fasting)) mg/dl Calcium 10.0 (8.6-10.3) mg/dl Magnesium 1.5 L (1.7-2.4) mg/dl Total Bilirubin 5.3 H (0.2-1.0) mg/dl AST 42 H (13-39) U/L ALT 22 (7-52) U/L Alkaline Phosphatase 201 H (34-104) U/L Ammonia 85.0 H (18-72) umol/L Troponin I High Sens 6.6 (0-14) pg/ml Total Protein 5.4 L (6.0-8.3) gm/dl Albumin 3.4 (3.4-5.0) gm/dl Globulin 2.0 L (2.5-4.0) gm/dl Albumin/Globulin Ratio 1.7 (0.9-2) Lipase 70 (11-82) U/L Urine Color Urine Appearance (Clear) Urine pH (4.5-7.5) Ur Specific [place] (1.000-1.030) Urine Protein (Negative) Urine Glucose (UA) (Negative) Urine Ketones (Negative) Urine Blood (Negative) Urine Nitrite (Negative) Urine Bilirubin (Negative) Urine Urobilinogen (Negative) Ur Leukocyte Esterase (Negative) Urine WBC (Auto) (0-5) /hpf Urine RBC (Auto) (0-4) /hpf U Hyaline Cast (Auto) (0-5) /lpf U Epithel Cells (Auto) (0-5) /lpf Urine Bacteria (Auto) (Negative) SARS-CoV-2 (PCR) (Negative) Influenza Type A (PCR) (Neg) Influenza Type B (PCR) (Neg) RSV (RT-PCR) (Neg) 07/19/22 07/19/22 07/19/22 Range/Units 14:23 17:06 17:10 WBC 5.68 (4.8-10.8) K/ul RBC 3.77 L (4.20-5.40) M/uL Hgb 9.6 L (12.0-16.0) g/dl Hct 30.2 L (37.0-47.0) % MCV 80.1 (80.0-100.0) fL MCH 25.5 (25.0-34.0) pg MCHC 31.8 L (32.0-36.0) g/dL RDW Std Deviation 75.8 H (36.4-46.3) fL RDW Coeff of Charlee 26.8 H (11.5-14.5) % Plt Count 190 (130-400) K/uL MPV 8.6 L (9.4-12.4) fL Immature Gran % (Auto) 0.4 % Neut % (Auto) 46.1 % Lymph % (Auto) 24.8 % Rincon % (Auto) 16.7 % Eos % (Auto) 11.3 % Baso % (Auto) 0.7 % Neut # (Auto) 2.62 (1.40-6.50) K/uL Lymph # (Auto) 1.41 (1.2-3.4) K/uL [place] # (Auto) 0.95 H (0.11-0.59) K/uL Eos # (Auto) 0.64 H (0-0.50) K/uL Baso # (Auto) 0.04 (0-0.2) K/uL Immature Gran # (Auto) 0.02 (0.01-0.20) K/uL Polychromasia 1+ Hypochromasia Present Poikilocytosis Present Anisocytosis Present Tear Drop Cells 1+ Ovalocytes 1+ Echinocytes 2+ Schistocytes 1+ PT (9.0-12.0) Seconds INR (0.9-1.1) Sodium (136-145) mmol/L Potassium (3.5-5.1) mmol/L Chloride (98-107) mmol/L Carbon Dioxide (21-32) mmol/L Anion Gap (3-11) BUN (6-23) mg/dl Creatinine (0.6-1.2) mg/dl Est Cr Clr Drug Dosing Est GFR ( Amer) ml/min Est GFR (Non-Af Amer) ml/min BUN/Creatinine Ratio (10-20) Glucose (70-99(Fasting)) mg/dl Calcium (8.6-10.3) mg/dl Magnesium (1.7-2.4) mg/dl Total Bilirubin (0.2-1.0) mg/dl AST (13-39) U/L ALT (7-52) U/L Alkaline Phosphatase (34-104) U/L Ammonia (18-72) umol/L Troponin I High Sens (0-14) pg/ml Total Protein (6.0-8.3) gm/dl Albumin (3.4-5.0) gm/dl Globulin (2.5-4.0) gm/dl Albumin/Globulin Ratio (0.9-2) Lipase (11-82) U/L Urine Color Dark Yellow Urine Appearance Clear (Clear) Urine pH 7.5 (4.5-7.5) Ur Specific [place] 1.019 (1.000-1.030) Urine Protein Negative (Negative) Urine Glucose (UA) Negative (Negative) Urine Ketones Negative (Negative) Urine Blood Negative (Negative) Urine Nitrite Negative (Negative) Urine Bilirubin Negative (Negative) Urine Urobilinogen Negative (Negative) Ur Leukocyte Esterase Trace H (Negative) Urine WBC (Auto) 1-5 (0-5) /hpf Urine RBC (Auto) 0-4 (0-4) /hpf U Hyaline Cast (Auto) 0 (0-5) /lpf U Epithel Cells (Auto) 10-20 H (0-5) /lpf Urine Bacteria (Auto) Negative (Negative) SARS-CoV-2 (PCR) NEGATIVE (Negative) Influenza Type A (PCR) Negative (Neg) Influenza Type B (PCR) Negative (Neg) RSV (RT-PCR) Negative (Neg) Administered Medications Discontinued Medications Sodium Chloride (Nss 1000ml) 1,000 mls @ 999 mls/hr IV .Q1H1M STA Stop: 07/19/22 15:15 Last Infusion: 07/19/22 16:32 Dose: 0 mls/hr Documented By: Admin: 07/19/22 15:30 Dose: 999 mls/hr Documented By: LUKE Ioversol (Optiray 320 100ml) 91 ml IV ONCE ONE Stop: 07/19/22 16:27 Last Admin: 07/19/22 16:16 Dose: 91 ml Documented By: SH Lactulose (Lactulose Syrup 30 Gm/45 Ml Udp) 30 gm PO NOW STA Stop: 07/19/22 16:57 Last Admin: 07/19/22 17:35 Dose: 30 gm Documented By: NMS Morphine Sulfate (Morphine Sulfate 4 Mg/Ml 1 Ml Carp\\Vial) 4 mg IV NOW STA Stop: 07/19/22 15:36 Last Admin: 07/19/22 16:05 Dose: 4 mg Documented By: NRB Imaging Data Radiologist's Impression: Abdomen/Pelvis CT 07/19/22 15:34 CT OF THE ABDOMEN AND PELVIS WITH CONTRAST CLINICAL HISTORY: Abdominal pain, lethargy, hx of DAILY cirrhosis COMPARISON STUDY: CT of the abdomen and pelvis June 18, 2022 and KUB June 20, 2022. TECHNIQUE: Following IV administration of 91 mL of Optiray, axial images of the abdomen and pelvis were obtained from the lung bases to the proximal femurs. Images were reviewed in the axial, sagittal, and coronal planes. IV contrast was administered without complication. Automated exposure control was utilized for the study. A dose lowering technique was utilized adhering to the principles of ALARA. CT DOSE: 472.36 mGy.cm FINDINGS: Lung bases are unremarkable. No pneumatosis, free air or portal venous gas is present. Paraesophageal varices are noted. The liver is cirrhotic. No hepatic lesions are identified on this venous phase exam. The main, left and right portal veins are patent. The splenic vein is patent. Splenomegaly is again noted. Additional abdominal collaterals are present. A moderate amount of abdominal ascites is present. There is a small amount of pelvic ascites. No fluid collection is present. Dilatation of the common bile duct is unchanged and likely related to cholecystectomy. Adrenal glands, kidneys and pancreas are normal. There is no evidence for a bowel obstruction. There is no evidence for acute appendicitis. There is hyperdense material within the appendix. Colonic diverticulosis is present. There is no evidence for acute diverticulitis. There is no lymphadenopathy. L4 compression deformity remains unchanged since prior CT. No acute fractures are identified. IMPRESSION: 1. Cirrhosis with manifestations of portal hypertension including splenomegaly, varices formation and small to moderate abdominal and pelvic ascites. 2. Colonic diverticulosis. No evidence for acute diverticulitis. 3. No bowel obstruction. No definite bowel wall thickening. ACT 112: Negative or not required by law. Electronically signed by: Kveen Bettencourt M.D. 07/19/2022 4:49 PM Discharge Plan Visit Data Chief Complaint: Abdominal Pain Stated Complaint: COMPLICATIONS OF LIVER DISEASE ED Provider: Heraclio Doll Discharge Problem: Encephalopathy, hepatic Forms Stand Alone Forms: My [facility] Prescriptions Prescriptions: No Action levothyroxine 112 mcg tablet 112 mcg PO Q2D Qty: 45 1RF Rx Instructions: 112 mcg PO every other day, alternate with 100 mcg. Take 1st thing in the morning on an empty stomach 30 min prior to any other oral intake. (DME) pen needle, diabetic [BD Ultra-Fine Lani Pen Needle] 32 gauge x 5/32" needle See Rx Instructions .Route Qty: 300 3RF Rx Instructions: Use 3 per day with insulin injection (DME) FreeStyle Lisy 3 Sensor Device See Rx Instructions .Route Qty: 2 11RF Rx Instructions: Change every 14 days omeprazole 40 mg Capsule,Delayed Release(Dr/Ec) 40 mg PO QAM potassium chloride [Klor-Con M20] 20 mEq tablet,ER particles/crystals 20 meq PO BID magnesium oxide 500 mg Tablet 500 mg PO QAM Trulicity 3 mg/0.5 mL pen injector 3 mg subcut WK hydroxyzine HCl 25 mg tablet 25 mg PO HS lactulose 20 gram/30 mL solution 30 g PO TID Novolin R FlexPen 100 unit/mL (3 mL) Insulin Pen 0 unit SUBCUT BID PRN (Reason: Hyperglycemia) levothyroxine 100 mcg tablet 100 mcg PO Q2D Rx Instructions: ALTERNATE EVERY OTHER DAY WITH 112MCG. paroxetine HCl 20 mg tablet 20 mg PO QAM Xifaxan 550 mg tablet 550 mg PO BID Rx Instructions: BEGIN 06/12/22 X 30 DAYS hyoscyamine sulfate 0.125 mg tablet,disintegrating 0.125 mg PO QID PRN (Reason: Abdominal Pain) rosuvastatin 20 mg tablet 20 mg PO HS Baqsimi 3 mg/actuation spray,non-aerosol 3 mg INTRANASAL .UD PRN (Reason: Hypoglycemia) Women's 50 Plus Multivitamin 400 mcg-500 mg calcium-20 mcg Tablet 1 tab PO QAM propranolol 80 mg capsule,extended release 24hr 80 mg PO QAM tramadol 50 mg tablet 50 mg PO Q4 PRN (Reason: Pain) ondansetron 4 mg tablet,disintegrating 4 mg PO TID PRN (Reason: Nausea And Vomiting) chlorthalidone 25 mg tablet 25 mg PO QAM Referrals Referrals: Lakisha Arriaga [Primary Care Provider] -
[2022-07-19] MEDS ORDERED: OPTIRAY 320 100ml IV ONE (16:26)
--- NOTE | 2022-07-19 16:51 | CT Scan Report ---
CT OF THE ABDOMEN AND PELVIS WITH CONTRAST CLINICAL HISTORY: Abdominal pain, lethargy, hx of REBOLLAR cirrhosis COMPARISON STUDY: CT of the abdomen and pelvis June 18, 2022 and KUB June 20, 2022. TECHNIQUE: Following IV administration of 91 mL of Optiray, axial images of the abdomen and pelvis we re obtained from the lung bases to the proximal femurs. Images were reviewed in the axial, sagittal, and coronal planes. IV contrast was administered without complication. Automated exposure control wa s utilized for the study. A dose lowering technique was utilized adhering to the principles of ALARA . CT DOSE: 472.36 mGy.cm FINDINGS: Lung bases are unremarkable. No pneumatosis, free air or portal venous gas is present. Para esophageal varices are noted. The liver is cirrhotic. No hepatic lesions are identified on this venou s phase exam. The main, left and right portal veins are patent. The splenic vein is patent. Splenomeg rustam is again noted. Additional abdominal collaterals are present. A moderate amount of abdominal asci star is present. There is a small amount of pelvic ascites. No fluid collection is present. Dilatation of the common bile duct is unchanged and likely related to cholecystectomy. Adrenal glands, kidneys and pancreas are normal. There is no evidence for a bowel obstruction. There is no evidence for acute appendicitis. There is hyperdense material within the appendix. Colonic diverticulosis is present. T here is no evidence for acute diverticulitis. There is no lymphadenopathy. L4 compression deformity r emains unchanged since prior CT. No acute fractures are identified. IMPRESSION: 1. Cirrhosis with manifestations of portal hypertension including splenomegaly, varices formation and small to moderate abdominal and pelvic ascites. 2. Colonic diverticulosis. No evidence for acute diverticulitis. 3. No bowel obstruction. No definite bowel wall thickening. ACT 112: Negative or not required by law. Electronically signed by: Keven Bettencourt M.D. 07/19/2022 4:49 PM
[2022-07-19] MEDS ORDERED: LACTULOSE SYRUP 30 GM/45 ML UDP PO STA (16:56)
[2022-07-19 17:17] LABS: Appearance Urine Clear (Clear); Bacteria Urine Automated Negative (Negative); Bilirubin Urine Negative (Negative); Blood Urine Negative (Negative); Cast Urine Automated 0 /lpf (0-5); Color Urine Dark Yellow; Glucose Urine UA Negative (Negative); Ketones Urine Negative (Negative); Leukocyte Esterase Urine Trace (Negative); Nitrite Urine Negative (Negative); Protein Urine Negative (Negative); RBC Urine Automated 0-4 /hpf (0-4); Specific Gravity Urine 1.019 (1.000-1.030); Urobilinogen Urine Negative (Negative); pH Urine 7.5 (4.5-7.5)
--- NOTE | 2022-07-19 17:45 | History & Physical Report ---
Date of Service July 19, 2022 Assessment & Plan (1) Encephalopathy, hepatic: Plan: Lactulose increase to 30g QID Continue rifaximin Repeat ammonia in AM (2) Abdominal pain: Plan: ?due to ascites. Unable to perform paracentesis with similar amount of ascites previously If persistent consider evaluation for ascites although historically just resolves with lactulose (3) Sinusitis: Plan: Noted on CT Unclear if this is affecting her acutely. If no significant improvement with lactulose consider antibiotic treatment for this as imaging matches her symptom although this has been going on since March therefore unclear if it is acute and causing her current symptoms. (4) 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: Plan: Continue propranolol INR 1.3, Plt 190 MELD score 16, 6.0% estimated 3 month mortality Child Quiles score 11, class 3, life expectancy 13 years (5) Chronic anemia: Plan: Improved from June. Will repeat iron transfusions. (6) History of gastrointestinal bleeding: Plan: Switch omeprazole to pantoprazole per hospital formulary (7) Hypertension: Plan: Continue chlorthalidone (8) Diabetes mellitus type 2 with complications: Plan: HbA1C 6.0 Novolog: --Goal BSG Range: Low 110 mg/dL, High 140 mg/dL --Correction Factor: 45 mg/dL/unit --Carbohydrate ratio = 15 g/unit --BSGs ACHS if eating, q6h if npo (9) Hypothyroidism: Plan: TSH 1.225 Continue levothyroxine (10) Primary hyperparathyroidism: Plan VTE Prophylaxis - Lovenox 40mg SQ daily Diet - T2DM, low Na Disposition - admit med/surg Admission and Anticipated Discharge Date Admission Date: July 19, 2022 History of Present Illness Chief Complaint: Abdominal pain, fatigue, decreased appetite, "fuzzy head" Primary Care Provider: Lakisha Arriaga Aurelia Kurtz is a 67 year old female with end stage liver disease who presents to the ER with abdominal pain, fatigue, decreased appetite. On a general decline over the last week with her concerned about recurrence of her anemia and ammonia. She denies any respiratory, gastrointestinal or urinary infective symptoms. She has noted left frontal sinus pressure that has been going on since the beginning of the year, no worse in the last week, improved with Bactrim given in March. She just feels her head is "fuzzy" but remains orientate x3. She has been spending most of the last week in bed. No one sided weakness, change in speech, hearing or vision. Her abdominal pain is something that is recurrent and tends to resolve with lactulose use. Usually lasts for a few days and then resolves. On her previous admission she had moderate ascites on CT however on US there was not enough ascites to perform paracentesis. No nausea, vomiting, dysphagia, odynophagia, change in bowels. She has been compliant with her lactulose x4/day. Allergies Allergy/AdvReac Type Severity Reaction Status Date / Time bee venom protein (honey bee) Allergy Severe Anaphylaxis Verified 07/19/22 18:03 Influenza Virus Vaccines Allergy Severe Anaphylaxis Verified 07/19/22 18:03 tetracycline AdvReac Severe Severe Verified 07/19/22 18:03 stomach pains Home Medications Medication Instructions Recorded Confirmed Type svbezyiw-nox-ajbca ac 400 1 tab PO QAM 07/15/21 07/19/22 History mcg-calcium carb 500 mg-vit K1 20 mcg tablet (Women's 50 Plus Multivitamin) omeprazole 40 mg capsule,delayed 40 mg PO QAM 11/04/21 07/19/22 History release potassium chloride 20 mEq 20 meq PO BID 12/22/21 07/19/22 History tablet,extended release(part/cryst) (Klor-Con M) magnesium oxide 500 mg tablet 500 mg PO QAM 01/22/22 07/19/22 History levothyroxine 112 mcg tablet 112 mcg PO Q2D #45 tabs 02/24/22 07/19/22 Rx pen needle, diabetic 32 gauge x #300 ea 06/12/22 07/19/22 Rx 5/32" (BD Ultra-Fine Lani Pen Needle) dulaglutide 3 mg/0.5 mL 3 mg subcut WK 06/18/22 07/19/22 History subcutaneous pen injector (Trulicity) glucagon 3 mg/actuation nasal 3 mg intranasal .UD PRN 06/18/22 07/19/22 History spray (Baqsimi) Hypoglycemia hydroxyzine HCl 25 mg tablet 25 mg PO HS 06/18/22 07/19/22 History hyoscyamine sulfate 0.125 mg 0.125 mg PO QID PRN Abdominal Pain 06/18/22 07/19/22 History disintegrating tablet insulin regular human 100 unit/mL 0 unit subcut BID PRN Hyperglycemia 06/18/22 07/19/22 History (3 mL) subcutaneous pen (Novolin R FlexPen) lactulose 20 gram/30 mL oral 30 g PO TID 06/18/22 07/19/22 History solution levothyroxine 100 mcg tablet 100 mcg PO Q2D 06/18/22 07/19/22 History paroxetine HCl 20 mg tablet 20 mg PO QAM 06/18/22 07/19/22 History rifaximin 550 mg tablet (Xifaxan) 550 mg PO BID 06/18/22 07/19/22 History rosuvastatin 20 mg tablet 20 mg PO HS 06/18/22 07/19/22 History blood-glucose sensor (FreeStyle #2 ea 06/19/22 07/19/22 Rx Lisy 3 Sensor device) chlorthalidone 25 mg tablet 25 mg PO QAM 07/19/22 07/19/22 History ondansetron 4 mg disintegrating 4 mg PO TID PRN Nausea And Vomiting 07/19/22 07/19/22 History tablet propranolol 80 mg capsule,24 80 mg PO QAM 07/19/22 07/19/22 History hr,extended release tramadol 50 mg tablet 50 mg PO Q4 PRN Pain 07/19/22 07/19/22 History Past Med/Surg History Medical History (Updated 07/19/22 @ 23:26 by Rogelio Landry MD) Abdominal pain Abnormal finding on breast imaging LISA (acute kidney injury) Anemia HX Anxiety and depression Arthritis Moeller esophagus Moeller's esophagus with esophagitis Benign essential tremor Benign paroxysmal positional vertigo of left ear Chronic diarrhea SOMETIMES - when takes lactulose 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 Colitis with rectal bleeding Depression Diabetes mellitus, type 2 Epistaxis Fracture of fourth lumbar vertebra Generalized weakness GERD (gastroesophageal reflux disease) GI bleed RECENT HOSPITALIZED - PT DENIES HX GI BLEED Heel spur B/L feet Hepatic encephalopathy Hiatal hernia History of colon polyps BENIGN History of fractured vertebra CURRENT, HX FALL JULY 2021 - FELL OF THE TOILET - NO INTERVENTION AT PRESENT/ [facility] FOR TO DISCUSS TX OPTIONS - POTENTIAL BACK BRACE History of kidney stones Hyperammonemia Hyperbilirubinemia Hyperlipidemia Hypertension Hypothyroidism Left wrist sprain 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 Liver disease REBOLLAR (nonalcoholic steatohepatitis) Neutropenic typhlitis Pancytopenia Portal hypertension Primary hyperparathyroidism Seasonal allergies Sensorineural hearing loss (SNHL) of both ears asymmetrical, left WRS Spleen enlarged MONITORS - PT REPORTS FROM THE [facility] [place] keratoses Syncope Temporomandibular joint disorder 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 Thrombocytopenia Urge incontinence Urinary tract infection UTI (urinary tract infection) HX, JULY 2021 -HOSPITALIZED FOR , NOW RESOLVED DURING TESTING FOUND 2 LUMPS IN INTESTINES...REASON FOR UPCOMING COLONOSCOPY Weakness Surgical History H/O thumb surgery RT/LEFT JOINT REPAIR H/O total hysterectomy History of appendectomy History of arthroscopy of knee Left Knee - meniscus/cartilage History of colonoscopy History of cystoscopy History of esophagogastroduodenoscopy (EGD) History of tonsillectomy and adenoidectomy History of tooth extraction Hx of cholecystectomy Family History Brother Coronary heart disease Heart disease Mother Family history of diabetes mellitus Hypertension Heart disease Sister Family history of diabetes mellitus Son Family history of diabetes mellitus Father Family hx of colon cancer Hearing loss Hypertension Cancer Heart disease Grandfather (Maternal) Family hx of colon cancer Other No family history of adverse response to anesthesia No family history of bleeding disorder Social History Smoking Status: Never smoker Second Hand Exposure: No; Do You Dip or Chew Tobacco: No; Hx Alcohol Use: No Hx Substance Use: No Preferred Language: Syriac Communication Ability: Effective 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: No Beliefs That Will Affect Care: None marital status: Current Living Situation: Spouse Current Living Situation Comment: and sister current occupational status: employed and retired How many Children do You have: 0 Feels Safe at Home: Yes Assistive Devices: Cane Review of Systems Review of Systems: All systems reviewed & are unremarkable except as noted in HPI & below Physical Exam Constitutional: well developed; + not well nourished and no acute distress Eyes: PERRL, conjunctivae normal, anicteric sclerae ENMT: external ear and nose normal, oropharynx normal Neck: trachea midline, no thyromegaly Respiratory: normal respiratory effort, lungs clear to auscultation Cardiovascular: RRR, no murmur, no edema Rate/Rhythm: regular rate and regular rhythm Heart Sounds: no murmur Extremities: + pedal edema (1+ pitting edema b/l equal) Gastrointestinal (Abdomen): Inspection/Auscultation: abdomen not distended Percussion/Palpation: + abdomen tender (mild generalized) and abdomen soft; no guarding and abdomen not rigid Musculoskeletal: no cyanosis or clubbing, extremities motor strength 5/5 Skin: + jaundice Neurologic: moves all extremities and awake; not confused Motor/Sensory: no pronator drift and no asterixis Results & Data Results & Data Vital Signs (Past 12 Hours) Vital Signs Temp Pulse Pulse Resp BP BP Pulse Ox 07/19/22 17:34 70 18 137/70 97 07/19/22 16:31 74 18 142/74 H 98 07/19/22 16:04 70 20 142/71 H 98 07/19/22 15:36 68 07/19/22 15:29 97 07/19/22 15:29 68 18 145/71 H 99 07/19/22 14:11 36.9 C 69 20 148/67 H 100 O2 Del Method 07/19/22 17:34 Room Air 07/19/22 16:31 Room Air 07/19/22 16:04 07/19/22 15:36 07/19/22 15:29 Room Air 07/19/22 15:29 Room Air 07/19/22 14:11 Room Air Laboratory Results Abnormal lab results 07/19/22 07/19/22 07/19/22 Range/Units 14:18 14:23 14:23 RBC (4.20-5.40) M/uL Hgb (12.0-16.0) g/dl Hct (37.0-47.0) % MCHC (32.0-36.0) g/dL RDW Std Deviation (36.4-46.3) fL RDW Coeff of Charlee (11.5-14.5) % MPV (9.4-12.4) fL Imperial # (Auto) (0.11-0.59) K/uL Eos # (Auto) (0-0.50) K/uL PT 13.9 H (9.0-12.0) Seconds INR 1.3 H (0.9-1.1) Glucose 104 H (70-99(Fasting)) mg/dl Magnesium 1.5 L (1.7-2.4) mg/dl Total Bilirubin 5.3 H (0.2-1.0) mg/dl AST 42 H (13-39) U/L Alkaline Phosphatase 201 H (34-104) U/L Ammonia 85.0 H (18-72) umol/L Total Protein 5.4 L (6.0-8.3) gm/dl Globulin 2.0 L (2.5-4.0) gm/dl Ur Leukocyte Esterase (Negative) U Epithel Cells (Auto) (0-5) /lpf 07/19/22 07/19/22 Range/Units 14:23 17:06 RBC 3.77 L (4.20-5.40) M/uL Hgb 9.6 L (12.0-16.0) g/dl Hct 30.2 L (37.0-47.0) % MCHC 31.8 L (32.0-36.0) g/dL RDW Std Deviation 75.8 H (36.4-46.3) fL RDW Coeff of Charlee 26.8 H (11.5-14.5) % MPV 8.6 L (9.4-12.4) fL Imperial # (Auto) 0.95 H (0.11-0.59) K/uL Eos # (Auto) 0.64 H (0-0.50) K/uL PT (9.0-12.0) Seconds INR (0.9-1.1) Glucose (70-99(Fasting)) mg/dl Magnesium (1.7-2.4) mg/dl Total Bilirubin (0.2-1.0) mg/dl AST (13-39) U/L Alkaline Phosphatase (34-104) U/L Ammonia (18-72) umol/L Total Protein (6.0-8.3) gm/dl Globulin (2.5-4.0) gm/dl Ur Leukocyte Esterase Trace H (Negative) U Epithel Cells (Auto) 10-20 H (0-5) /lpf Diagnostic Findings CT OF THE ABDOMEN AND PELVIS WITH CONTRAST CLINICAL HISTORY: Abdominal pain, lethargy, hx of REBOLLAR cirrhosis COMPARISON STUDY: CT of the abdomen and pelvis June 18, 2022 and KUB June 20, 2022. TECHNIQUE: Following IV administration of 91 mL of Optiray, axial images of the abdomen and pelvis were obtained from the lung bases to the proximal femurs. Images were reviewed in the axial, sagittal, and coronal planes. IV contrast was administered without complication. Automated exposure control was utilized for the study. A dose lowering technique was utilized adhering to the principles of ALARA. CT DOSE: 472.36 mGy.cm FINDINGS: Lung bases are unremarkable. No pneumatosis, free air or portal venous gas is present. Paraesophageal varices are noted. The liver is cirrhotic. No hepatic lesions are identified on this venous phase exam. The main, left and right portal veins are patent. The splenic vein is patent. Splenomegaly is again noted. Additional abdominal collaterals are present. A moderate amount of abdominal ascites is present. There is a small amount of pelvic ascites. No fluid collection is present. Dilatation of the common bile duct is unchanged and likely related to cholecystectomy. Adrenal glands, kidneys and pancreas are normal. There is no evidence for a bowel obstruction. There is no evidence for acute appendicitis. There is hyperdense material within the appendix. Colonic diverticulosis is present. There is no evidence for acute diverticulitis. There is no lymphadenopathy. L4 compression deformity remains unchanged since prior CT. No acute fractures are identified. IMPRESSION: 1. Cirrhosis with manifestations of portal hypertension including splenomegaly, varices formation and small to moderate abdominal and pelvic ascites. 2. Colonic diverticulosis. No evidence for acute diverticulitis. 3. No bowel obstruction. No definite bowel wall thickening. Medications Administered ER Medications Given: NSS 1L bolus Morphine 4mg IV Lactulose 30g Code Status & VTE Plan Code Status DNR/DNI VTE Prophylaxis Plan VTE Prophylaxis will be ordered: Yes PG Care Time/CCT Total # of Minutes Spent Total Time Spent with Patient: Total time spent is greater than 50% in coordination of care (as documented) at patient's floor/unit and/or counseling patient: Coding Level of Care Code 61096 INT INP/OBS CARE 2/55MIN Diagnoses Encephalopathy, hepatic K76.82 Abdominal pain R10.9 Sinusitis J32.9 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 Chronic anemia D64.9 History of gastrointestinal bleeding Z87.19 Hypertension I10 Hypertension type: primary hypertension Diabetes mellitus type 2 with complications E11.8 Hypothyroidism E03.9 Hypothyroidism type: unspecified Primary hyperparathyroidism E21.0 (7) Hypertension Hypertension type: primary hypertension Qualified Code(s): I10 - Essential (primary) hypertension (9) Hypothyroidism Hypothyroidism type: unspecified Qualified Code(s): E03.9 - Hypothyroidism, unspecified
[2022-07-19 17:52] LABS: Influenza A virus by PCR Negative (Neg); Influenza B virus by PCR Negative (Neg); RSV by PCR Negative (Neg); SARS CoV2 RNA(COVID-19) Ceph NEGATIVE (Negative)
[2022-07-19 18:01] LABS: Phosphorus 2.3 mg/dl (2.5-4.9)
--- NOTE | 2022-07-19 18:31 | XRay Report ---
XR chest 1V portable CLINICAL HISTORY: fatigue, ?PNA COMPARISON STUDY: Chest radiograph April 18, 2022. FINDINGS: Lung volumes are normal. There is no consolidation to suggest pneumonia. Linear left basila r densities represent atelectasis. There is no pneumothorax or pleural effusion. Cardiac size is norm al. Mediastinal contours are normal. There is no evidence for pulmonary edema. IMPRESSION: No acute cardiopulmonary findings. ACT 112: Negative or not required by law. Electronically signed by: Keven Bettencourt M.D. 07/19/2022 6:29 PM
--- NOTE | 2022-07-19 19:20 | CT Scan Report ---
CT OF THE HEAD WITHOUT CONTRAST CLINICAL HISTORY: Altered mental status. COMPARISON STUDY: MRI of the brain September 24, [address] April 18, 2022. CT DOSE: 614.27 mGy.cm TECHNIQUE: Helical axial images of the head were obtained without IV contrast. Automated exposure con trol was utilized for the study. A dose lowering technique was utilized adhering to the principles o f ALARA. FINDINGS: No acute intracranial hemorrhage, midline shift or mass effect is present. White matter hyp odensity suggests small vessel disease. Intravascular contrast from recent contrast-enhanced CT is no kailyn. The ventricular system is unremarkable. The basal cisterns are patent. No extra-axial collection s are present. There are no findings to suggest acute dural sinus thrombosis or acute territorial inf arct. Small bilateral mastoid effusions are similar to prior head CT. Left sphenoid sinus air-fluid l evel is new since prior exam. IMPRESSION: 1. No acute intracranial findings. 2. Left sphenoid sinus air-fluid level which may reflect acute sinusitis. 3. No change in small bilateral mastoid effusions. ACT 112: Negative or not required by law. Electronically signed by: Keven Bettencourt M.D. 07/19/2022 7:18 PM
[2022-07-19] MEDS ORDERED: GLUCOSE 40% GEL 15 GM TUBE PO PRN (21:19)
[2022-07-19] MEDS ORDERED: GLUCOSE 10 TAB/TUBE PO PRN (21:19)
[2022-07-19] MEDS ORDERED: GLUCAGON FOR INJ 1 MG VIAL SQ PRN (21:19)
[2022-07-19] MEDS ORDERED: CARBOHYDRATES FOR HYPOGLYCEMIA PO PRN (21:19)
[2022-07-19] MEDS ORDERED: HYOSCYAMINE SULFATE 0.125 MG TAB PO PRN (21:19)
[2022-07-19] MEDS ORDERED: DEXTROSE 50% 50 ML SYRINGE IV PRN (21:19)
[2022-07-19] MEDS: MAGNESIUM SULFATE / D5W 1 GM/100 ML BAG IV SCH ×2 (21:27→23:26)
[2022-07-19] MEDS: oxyCODONE HCL IR 5 MG TAB (IMMEDIATE RELEASE) PO PRN (22:04)
[2022-07-19] MEDS: hydrOXYzine HCl 25 MG TAB PO SCH (22:19)
[2022-07-19] MEDS: INSULIN ASPART PER UNIT CHARGE SC SCH (22:20)
[2022-07-19] MEDS: rifAXIMin 550 MG TABLET PO SCH (22:20)
[2022-07-19] MEDS: POTASSIUM CHLORIDE CRTAB 20 MEQ TABCR PO SCH (22:20)
[2022-07-19] MEDS: MAGNESIUM OXIDE 400 MG TAB PO SCH (22:20)
[2022-07-19] MEDS: ROSUVASTATIN CALCIUM 20 MG TAB PO SCH (22:20)
[2022-07-19] MEDS: LACTULOSE SYRUP 30 GM/45 ML UDP PO SCH (22:21)
[2022-07-20] MEDS: MAGNESIUM SULFATE / D5W 1 GM/100 ML BAG IV SCH ×2 (01:34→03:20)
[2022-07-20] MEDS: oxyCODONE HCL IR 5 MG TAB (IMMEDIATE RELEASE) PO PRN ×4 (03:20→17:32)
[2022-07-20] MEDS ORDERED: LEVOTHYROXINE SODIUM 100 MCG TABLET PO SCH (06:30)
[2022-07-20 07:07] LABS: Albumin Globulin Ratio 1.7 (0.9-2); BUN Creatinine Ratio 10.6 (10-20); Bilirubin,Total 4.7 mg/dl (0.2-1.0); Calcium 9.1 mg/dl (8.6-10.3); Creatinine Clr Calc Pharmacy 59.4 ml/min; Est GFR (Non-African American) 69.9 ml/min; Globulin 1.8 gm/dl (2.5-4.0); Magnesium 2.2 mg/dl (1.7-2.4); Potassium 3.9 mmol/L (3.5-5.1); Total Protein 4.8 gm/dl (6.0-8.3)
[2022-07-20 07:10] LABS: INR 1.3 (0.9-1.1)
[2022-07-20 07:25] LABS: Ferritin 35.7 ng/ml (8-388)
[2022-07-20 07:34] LABS: Acanthocytes 2+; Anisocytosis Present; Basophils # (auto) 0.03 K/uL (0-0.2); Basophils % (auto) 0.7 %; Eosinophils # (auto) 0.47 K/uL (0-0.50); Eosinophils % (auto) 11.1 %; Hematocrit (blood only) 26.4 % (37.0-47.0); Hemoglobin 8.7 g/dl (12.0-16.0); Immature Granulocytes # (auto) 0.01 K/uL (0.01-0.20); Immature Granulocytes % (auto) 0.2 %; Lymphocytes # (auto) 1.13 K/uL (1.2-3.4); Lymphocytes % (auto) 26.8 %; Mean Corpuscular Hemoglobin 25.9 pg (25.0-34.0); Mean Corpuscular Volume 78.6 fL (80.0-100.0); Mean Platelet Volume 8.8 fL (9.4-12.4); Monocytes # (auto) 0.81 K/uL (0.11-0.59); Monocytes % (auto) 19.2 %; Neutrophils # (auto) 1.77 K/uL (1.40-6.50); Ovalocytes 1+; Platelet Count 157 K/uL (130-400); Polychromasia 2+; Red Blood Count 3.36 M/uL (4.20-5.40); White Blood Count 4.22 K/ul (4.8-10.8)
[2022-07-20] MEDS: PARoxetine HCL 20 MG TAB PO SCH (07:42)
[2022-07-20] MEDS: rifAXIMin 550 MG TABLET PO SCH ×2 (07:42→20:27)
[2022-07-20] MEDS: POTASSIUM CHLORIDE CRTAB 20 MEQ TABCR PO SCH ×2 (07:42→20:28)
[2022-07-20] MEDS: LACTULOSE SYRUP 30 GM/45 ML UDP PO SCH ×4 (07:42→20:27)
[2022-07-20] MEDS: ENOXAPARIN INJ 40 MG/0.4 ML SYR SQ SCH (07:42)
[2022-07-20] MEDS: CHLORTHALIDONE 25 MG TAB PO SCH (07:43)
[2022-07-20] MEDS: PROPRANOLOL HCL LA 80 MG CAPCR PO SCH (07:43)
[2022-07-20] MEDS: MAGNESIUM OXIDE 400 MG TAB PO SCH ×2 (07:43→20:27)
[2022-07-20] MEDS: PANTOprazole 40 MG TAB PO SCH (07:43)
[2022-07-20] MEDS: INSULIN ASPART PER UNIT CHARGE SC SCH ×4 (09:02→20:28)
[2022-07-20] MEDS: cefTRIAXone SODIUM 2,000 MG in DEXTROSE 5% 50 ML IV SCH (12:30)
--- NOTE | 2022-07-20 13:11 | Medical Student Progress Note ---
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: (2) Diabetes mellitus type 2 with complications: (3) Hypothyroidism: Hypothyroidism type: unspecified Qualified Code(s): E03.9 - Hypothyroidism, unspecified (4) Hypertension: Hypertension type: primary hypertension Qualified Code(s): I10 - Essential (primary) hypertension (5) Hyperlipidemia: Hyperlipidemia type: unspecified Qualified Code(s): E78.5 - Hyperlipidemia, unspecified Plan Liver Cirrhosis 2/2 REBOLLAR / ?Spontaneous Bacterial Peritonitis Hospital Course - ED given lactulose, IV morphine, and IV magnesium - Liver function testing: Remarkable findings as follows - Bilirubin: 4.7 H - INR: 1.3 H - Albumin: 3.0 L - Protein 4.8 L - CBC: Remarkable findings as follows - WBC: 4.22 L - Hb/Hct: 8.7/26.4 L - Plts and Coagulation Studies: WNL - Magnesium and Iron Studies: WNL - Ammonia: 93 H - Imaging: - CT of Abdomen/Pelvis: - Evidence of cirrhosis with portal HTN, varices formation, and ascites present - No diverticulitis or bowel obstruction noted - CXR: - No evidence of PNA, PTX, or pleural effusion - CT of Head: - No intracranial findings noted - Findings suggestive of left sphenoid sinusitis Plan - Scheduled a paracentesis to determine if SBP may be a factor in this presentation of fatigue and abdominal pain - treat if SBP - Continue lactulose (30 mg PO QID) and rifaximin (550 mg PO BID) to decrease ammonia production/absorption - Follow ammonia levels as needed - Continue propranolol (80 mg PO QAM) for varices bleeding prophylaxis - Contact [facility] team to discuss patient's case - Contact PCP to discuss patient's case Chronic Conditions Plan - continue home medications/hospital formulary equivalents - Gastric Ulcer: Continue pantoprazole - HTN: Continue chorthalidone - Hypothyroidism: Continue levothyroxine - Diabetes Mellitus: Continue insulin regimen and monitoring blood glucose via continuous glucose monitor - Hyperlipidemia: Continue statin medication Venous Thromboembolism Prophylaxis - Enoxaparin 40 mg subcutaneous Admission and Anticipated Discharge Date Admission Date: July 19, 2022 Supervising Attestation I personally examined the patient and verified all mcnamara points of history and exam, discussed case, and agree with decision making with Mayte LOBO Feeling about the same. Still weak. Patient and would very much like to have her go to an inpatient rehab setting if possiblethey note that as she is progressing towards a liver transplant, she is starting to get weakerand part of the criteria for her being a decent transplant candidate as her functional status. To that end, they are worried that by the time she has a donor that is a match she may be too weak to undergo the surgery. Vitals noted, in general she is awake and alert pleasant no distress. HEENT normocephalic atraumatic mucous membranes moist. Breathing unlabored no accessory muscle use good effort. Skin shows no rashes no pallor or icterus. Weaknessagree with patient and 's assessments that this is probably predominantly waxing and waning of her severe chronic illness. Work towards rehab if at all possible. Given a little bit of mental "fuzziness" it is p ossible there is a mild degree of hepatic encephalopathy at playneeds lactulose either waycontinue. abd pain - likely nonspecific, but have to consider SBP. para, ceftriaxone pending results. DVT proph - lovenox otherwise as above Subjective Aurelia Kurtz is a 67 year old female with a pertinent past medical history of end-stage non-alcohol associated steatohepatitis presented in the emergency department (ED) yesterday (July 19) with abdominal pain and increased fatigue/lethargy. She was accompanied by her who stated that she has had a week-long decline and suspected that her presentation could be due to an anemia or ammonia etiology. She stated, and her endorsed, that she was spending most of her days in bed, which she attributed to feeling "exhausted." Also, she endorsed a concern for "brain fuzziness", though she was alert and oriented to person, place, and time. Otherwise, she reports no other neurologic concerns or other symptom concerns. She also supports having abdominal pain, localized to the right side. Imaging and laboratory studies were conducted. She was given lactulose, IV morphine, and IV magnesium in the ED. This morning (July 20), she endorsed taking multiple doses (suspected three) of the lactulose that has not proven beneficial from her perspective, which previously were useful in prior admissions. States that she still has fatigue. Additionally, she states that her abdominal pain is "better" (less severe) than it was yesterday, and that the pain medication (oxycodone), as needed, has helped. She promotes that since being admitted, she has not had a bowel movement. This afternoon (July 20), she is accompanied by her who supports that she has been dealing with decompensations (e.g., episodes of excessive fatigue, lack of coherence to thought processes, and instability with walking causing two recent falls (one of which she broke her left wrist)) for about 3 years which have recently worsened. She has been in and out of the hospital and during these admissions she is usually low in potassium, magnesium, iron/anemic and normally is given IV potassium, IV magnesium, and iron/sometimes a blood transfusion. She also saw GI at [facility] where they found an gastric ulcer that may have led to her anemia, but cauterizing this ulcer has not resolved her anemia. Currently, she has one potential donor (out of two potential qualifers) who has a BMI that does not meet requirements for surgery. Additionally, the notes that Aurelia has been doing intermittent physical therapy to remain fit enough to be eligible for the transplantation surgery. However, this physical therapy is limited to these acute decompensatory episodes. She would like us to contact her transplant team ([facility] in [place]) and PCP ([facility]) to discuss her case. Review of Systems Review of Systems: Per HPI Physical Exam Constitutional: WD/WN, vitals as above Eyes: EOM intact bilaterally icteric sclera ENMT: external ear and nose normal, oropharynx normal Neck: normal visual inspection and trachea midline Respiratory: normal respiratory effort, lungs clear to auscultation Cardiovascular: Rate/Rhythm: regular rate and regular rhythm Heart Sounds: normal S1 and normal S2 Gastrointestinal (Abdomen): Inspection/Auscultation: + abdomen distended, normal bowel sounds and + abdominal surgical scar Percussion/Palpation: + abdomen tender and + hepatomegaly Skin: Jaundiced Neurologic: Motor/Sensory: + asterixis Cranial Nerves: EOM intact bilaterally, normal hearing and no nystagmus Psychiatric: Orientation: alert, oriented to person, oriented to place and oriented to time Results & Data Vital Signs (Past 12 Hours) Vital Signs Temp Pulse Resp BP Pulse Ox O2 Del Method 07/20/22 07:52 36.8 C 72 16 130/68 96 Room Air
--- NOTE | 2022-07-20 17:37 | Billing Data ---
Date of Service July 20, 2022 Coding Level of Care Code 64373 SUB INP/OBS CARE
[2022-07-20] MEDS: ROSUVASTATIN CALCIUM 20 MG TAB PO SCH (20:27)
[2022-07-20] MEDS: hydrOXYzine HCl 25 MG TAB PO SCH (20:28)
[2022-07-21] MEDS: oxyCODONE HCL IR 5 MG TAB (IMMEDIATE RELEASE) PO PRN ×2 (04:46→13:05)
[2022-07-21] MEDS ORDERED: LEVOTHYROXINE SODIUM 112 MCG TABLET PO SCH (06:30)
[2022-07-21] MEDS: ENOXAPARIN INJ 40 MG/0.4 ML SYR SQ SCH (08:13)
[2022-07-21] MEDS: LACTULOSE SYRUP 30 GM/45 ML UDP PO SCH ×2 (08:13→13:00)
[2022-07-21] MEDS: CHLORTHALIDONE 25 MG TAB PO SCH (08:13)
[2022-07-21] MEDS: PROPRANOLOL HCL LA 80 MG CAPCR PO SCH (08:14)
[2022-07-21] MEDS: PARoxetine HCL 20 MG TAB PO SCH (08:14)
[2022-07-21] MEDS: MAGNESIUM OXIDE 400 MG TAB PO SCH (08:14)
[2022-07-21] MEDS: rifAXIMin 550 MG TABLET PO SCH (08:15)
[2022-07-21] MEDS: POTASSIUM CHLORIDE CRTAB 20 MEQ TABCR PO SCH (08:15)
[2022-07-21] MEDS: PANTOprazole 40 MG TAB PO SCH (08:16)
[2022-07-21 08:19] LABS: Albumin Globulin Ratio 1.7 (0.9-2); BUN Creatinine Ratio 11.5 (10-20); Bilirubin,Total 4.3 mg/dl (0.2-1.0); Calcium 9.2 mg/dl (8.6-10.3); Creatinine Clr Calc Pharmacy 52.6 ml/min; Est GFR (African American) 69.9 ml/min; Est GFR (Non-African American) 60.3 ml/min; Globulin 1.8 gm/dl (2.5-4.0); Magnesium 1.6 mg/dl (1.7-2.4); Potassium 3.7 mmol/L (3.5-5.1); Total Protein 4.8 gm/dl (6.0-8.3)
[2022-07-21 08:31] LABS: Hematocrit (blood only) 25.4 % (37.0-47.0); Hemoglobin 8.3 g/dl (12.0-16.0); Mean Corpuscular Hemoglobin 25.6 pg (25.0-34.0); Mean Corpuscular Hgb Conc 32.7 g/dL (32.0-36.0); Mean Corpuscular Volume 78.4 fL (80.0-100.0); Mean Platelet Volume 8.7 fL (9.4-12.4); Platelet Count 144 K/uL (130-400); RDW Coefficient of Variation 25.8 % (11.5-14.5); RDW Standard Deviation 71.7 fL (36.4-46.3); Red Blood Count 3.24 M/uL (4.20-5.40); White Blood Count 4.06 K/ul (4.8-10.8)
[2022-07-21 08:32] LABS: Acanthocytes 2+; Anisocytosis Present; Basophils # (auto) 0.02 K/uL (0-0.2); Basophils % (auto) 0.5 %; Eosinophils # (auto) 0.43 K/uL (0-0.50); Eosinophils % (auto) 10.6 %; INR 1.4 (0.9-1.1); Immature Granulocytes # (auto) 0.01 K/uL (0.01-0.20); Immature Granulocytes % (auto) 0.2 %; Lymphocytes # (auto) 1.06 K/uL (1.2-3.4); Lymphocytes % (auto) 26.1 %; Monocytes % (auto) 17.2 %; Neutrophils # (auto) 1.84 K/uL (1.40-6.50); Neutrophils % (auto) 45.4 %; Ovalocytes 1+; Polychromasia 1+; Prothrombin Time 14.8 Seconds (9.0-12.0); Schistocytes 1+; Tear Drop Cells 1+
[2022-07-21] MEDS: INSULIN ASPART PER UNIT CHARGE SC SCH ×2 (10:34→13:01)
[2022-07-21] MEDS: MAGNESIUM SULFATE / D5W 1 GM/100 ML BAG IV SCH ×2 (10:37→12:18)
[2022-07-21] MEDS: cefTRIAXone SODIUM 2,000 MG in DEXTROSE 5% 50 ML IV SCH (11:47)
[2022-07-21 12:29] LABS: C Reactive Protein 0.51 mg/dl (0-0.5)
--- NOTE | 2022-07-21 12:46 | Ultrasound Report ---
LIMITED ABDOMINAL ULTRASOUND INDICATION: Pre-paracentesis scan FINDINGS: A trace amount of ascites is noted at the dome of the liver. No other significant ascites f luid noted within the remaining 3 abdominal quadrants. No paracentesis was performed secondary to sca nt amount of ascites/location. IMPRESSION: Trace amount of ascites at the dome of the liver. No paracentesis was performed secondary to the scant amount of ascites/location. Performed, dictated, and signed by Eran Jerez PA-C; to be co-signed by Dr. Parveen Candelaria. Electronically signed by: Parveen Candelaria M.D. 07/21/2022 2:33 PM
--- NOTE | 2022-07-21 13:00 | Medical Student Progress Note ---
Date of Service July 21, 2022 Assessment & Plan (1) 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: (2) Diabetes mellitus type 2 with complications: (3) Hypothyroidism: Hypothyroidism type: unspecified Qualified Code(s): E03.9 - Hypothyroidism, unspecified (4) Hypertension: Hypertension type: primary hypertension Qualified Code(s): I10 - Essential (primary) hypertension (5) Hyperlipidemia: Hyperlipidemia type: unspecified Qualified Code(s): E78.5 - Hyperlipidemia, unspecified Plan Liver Cirrhosis 2/2 [facility] Hospital Course - ED (July 19) given lactulose, IV morphine, and IV magnesium - Liver function testing: Remarkable findings as follows - Bilirubin: 4.7 H (July 20); 4.3 H (July 21) - INR: 1.3 H (July 20); 1.4 H (July 21) - Albumin: 3.0 L (July 20); 3.0 L (July 21) - Protein 4.8 L (July 20); 4.8 L (July 21) - CBC: Remarkable findings as follows - WBC: 4.22 L (July 20); 4.06 L (July 21) - Hb/Hct: 8.7/26.4 L (July 20); 8.3/25.4 L (July 21) - Plts and Coagulation Studies: WNL - Magnesium and Iron Studies: WNL (July 20) - Ammonia: 93 H (July 20) - Imaging (July 20): - CT of Abdomen/Pelvis: - Evidence of cirrhosis with portal HTN, varices formation, and ascites present - No diverticulitis or bowel obstruction noted - CXR: - No evidence of PNA, PTX, or pleural effusion - CT of Head: - No intracranial findings noted - Findings suggestive of left sphenoid sinusitis - Paracentesis was scheduled for (July 21) and was found to have insufficient amount of ascitic fluid for the procedure. - Small amount of ascitic fluid supports against spontaneous bacterial peritonitis (was given ceftriaxone in case of SBP) Plan - Discharge to [facility] - Discontinue ceftriaxone - Discharge on lactulose (30 mg PO QID) and rifaximin (550 mg PO BID) - Discharge on propranolol (80 mg PO QAM) for varices bleeding prophylaxis - Contacted [facility] team to discuss patient's case - Chronic Conditions: discharge on home medications - Gastric Ulcer: Continue omeprazole - HTN: Continue chorthalidone - Hypothyroidism: Continue levothyroxine - Diabetes Mellitus: Continue insulin regimen and monitoring blood glucose via continuous glucose monitor - Hyperlipidemia: Continue statin medication Admission and Anticipated Discharge Date Admission Date: July 19, 2022 Subjective July 19: Aurelia Kurtz is a 67 year old female with a pertinent past medical history of end-stage non-alcohol associated steatohepatitis presented in the emergency department (ED) today with abdominal pain and increased fatigue/lethargy. She was accompanied by her who stated that she has had a week-long decline and suspected that her presentation could be due to an anemia or ammonia etiology. She stated, and her endorsed, that she was spending most of her days in bed, which she attributed to feeling "exhausted." Also, she endorsed a concern for "brain fuzziness", though she was alert and oriented to person, place, and time. Otherwise, she reports no other neurologic concerns or other symptom concerns. She also supports having abdominal pain, localized to the right side. Imaging and laboratory studies were conducted. She was given lactulose, IV morphine, and IV magnesium in the ED. July 20: This morning, she endorsed taking multiple doses (suspected three) of the lactulose that has not proven beneficial from her perspective, which previously were useful in prior admissions. States that she still has fatigue. Additionally, she states that her abdominal pain is "better" (less severe) than it was yesterday, and that the pain medication (oxycodone), as needed, has helped. She promotes that since being admitted, she has not had a bowel movement. This afternoon, she is accompanied by her who supports that she has been dealing with decompensations (e.g., episodes of excessive fatigue, lack of coherence to thought processes, and instability with walking causing two recent falls (one of which she broke her left wrist)) for about 3 years which have recently worsened. She has been in and out of the hospital and during these admissions she is usually low in potassium, magnesium, iron/anemic and normally is given IV potassium, IV magnesium, and iron/sometimes a blood transfusion. She also saw GI at [facility] where they found an gastric ulcer that may have led to her anemia, but cauterizing this ulcer has not resolved her anemia. Currently, she has one potential donor (out of two potential qualifers) who has a BMI that does not meet requirements for surgery. Additionally, the notes that Aurelia has been doing intermittent physical therapy to remain fit enough to be e ligible for the transplantation surgery. However, this physical therapy is limited to these acute decompensatory episodes. She would like us to contact her transplant team ([facility] in [place]) and PCP (DIVYA) to discuss her case. July 21: This morning she states that she has greater mental clarity and overall feels better. Also, she states that she had two bowel movements since we last spoke, and that she felt that it partially relieved her abdominal pain. She supports her abdominal pain is worsened with lactulose and meals. Additionally, she states that her potential donor has lost approximately 17 pounds and is excited for the prospect, but states that she is trying to remain realistic. This afternoon, she is present with her , who endorses that his appears more mentally "clear" today. Both patient and still want to physical therapy. Review of Systems Review of Systems: Per HPI Physical Exam Constitutional: WD/WN, vitals as above Eyes: EOM intact bilaterally ENMT: external ear and nose normal, oropharynx normal Neck: normal visual inspection and trachea midline Respiratory: normal respiratory effort, lungs clear to auscultation Cardiovascular: Rate/Rhythm: regular rate and regular rhythm Heart Sounds: normal S1 and normal S2 Gastrointestinal (Abdomen): Inspection/Auscultation: + abdomen distended, normal bowel sounds and + abdominal surgical scar Percussion/Palpation: + abdomen tender and + hepatomegaly Skin: Jaundice Neurologic: Motor/Sensory: + asterixis ((left hand > right hand)) Cranial Nerves: PERRL, EOM intact bilaterally, normal hearing and no nystagmus Results & Data Vital Signs (Past 12 Hours) Vital Signs Temp Pulse Resp BP Pulse Ox O2 Del Method 07/21/22 07:35 36.7 C 76 17 112/50 L 94 Room Air
--- NOTE | 2022-07-21 14:54 | Student Report ---
[facility] Med Student DC Summary <Cyril Pizarro - Last Filed: 07/21/22 14:54> Date of Service Date of Service: July 21, 2022 ADM HPI Per Admitting Provider: Aurelia Kurtz is a 67 year old female with end stage liver disease who presents to the ER with abdominal pain, fatigue, decreased appetite. On a general decline over the last week with her concerned about recurrence of her anemia and ammonia. She denies any respiratory, gastrointestinal or urinary infective symptoms. She has noted left frontal sinus pressure that has been going on since the beginning of the year, no worse in the last week, improved with Bactrim given in March. She just feels her head is "fuzzy" but remains orientate x3. She has been spending most of the last week in bed. No one sided weakness, change in speech, hearing or vision. Her abdominal pain is something that is recurrent and tends to resolve with lactulose use. Usually lasts for a few days and then resolves. On her previous admission she had moderate ascites on CT however on US there was not enough ascites to perform paracentesis. No nausea, vomiting, dysphagia, odynophagia, change in bowels. She has been compliant with her lactulose x4/day. ADM Exam Admission Exam (Per Admitting): Physical Exam Constitutional: well developed; + not well nourished and no acute distress Eyes: PERRL, conjunctivae normal, anicteric sclerae ENMT: external ear and nose normal, oropharynx normal Neck: trachea midline, no thyromegaly Respiratory: normal respiratory effort, lungs clear to auscultation Cardiovascular: RRR, no murmur, no edema Rate/Rhythm: regular rate and regular rhythm Heart Sounds: no murmur Extremities: + pedal edema (1+ pitting edema b/l equal) Gastrointestinal (Abdomen): Inspection/Auscultation: abdomen not distended Percussion/Palpation: + abdomen tender (mild generalized) and abdomen soft; no guarding and abdomen not rigid Musculoskeletal: no cyanosis or clubbing, extremities motor strength 5/5 Skin: + jaundice Neurologic: moves all extremities and awake; not confused Motor/Sensory: no pronator drift and no asterixis Course Hospital Course: Liver Cirrhosis 2/2 [facility] Hospital Course - ED (July 19) given lactulose, IV morphine, and IV magnesium - Liver function testing: Remarkable findings as follows - Bilirubin: 4.7 H (July 20); 4.3 H (July 21) - INR: 1.3 H (July 20); 1.4 H (July 21) - Albumin: 3.0 L (July 20); 3.0 L (July 21) - Protein 4.8 L (July 20); 4.8 L (July 21) - CBC: Remarkable findings as follows - WBC: 4.22 L (July 20); 4.06 L (July 21) - Hb/Hct: 8.7/26.4 L (July 20); 8.3/25.4 L (July 21) - Plts and Coagulation Studies: WNL - Magnesium and Iron Studies: WNL (July 20) - Ammonia: 93 H (July 20) - Imaging (July 20): - CT of Abdomen/Pelvis: - Evidence of cirrhosis with portal HTN, varices formation, and ascites present - No diverticulitis or bowel obstruction noted - CXR: - No evidence of PNA, PTX, or pleural effusion - CT of Head: - No intracranial findings noted - Findings suggestive of left sphenoid sinusitis - Paracentesis was scheduled for (July 21) and was found to have insufficient amount of ascitic fluid for the procedure. - Small amount of ascitic fluid supports against spontaneous bacterial peritonitis (was given ceftriaxone in case of SBP) Plan - Discharge to [facility] - Discontinue ceftriaxone - Discharge on lactulose (30 mg PO QID) and rifaximin (550 mg PO BID) - Discharge on propranolol (80 mg PO QAM) - Contacted [facility] team to discuss patient's case - Chronic Conditions: discharge on home medications - Gastric Ulcer: Continue omeprazole - HTN: Continue chlorthalidone - Hypothyroidism: Continue levothyroxine - Diabetes Mellitus: Continue insulin regimen and CGM monitoring - Hyperlipidemia: Continue statin medication <Jozef Fairchild DO - Last Filed: 07/21/22 15:40> Discharge Plan Discharge Plan: I personally examined the patient and verified all mcnamara points of history and exam, discussed case, and agree with decision making with Mayte Pizarro MS2 see discharge summary
--- NOTE | 2022-07-21 15:43 | Discharge Summary ---
Date of Service July 21, 2022 Admission HPI Per Admitting Provider Aurelia Kurtz is a 67 year old female with end stage liver disease who presents to the ER with abdominal pain, fatigue, decreased appetite. On a general decline over the last week with her concerned about recurrence of her anemia and ammonia. She denies any respiratory, gastrointestinal or urinary infective symptoms. She has noted left frontal sinus pressure that has been going on since the beginning of the year, no worse in the last week, improved with Bactrim given in March. She just feels her head is "fuzzy" but remains orientate x3. She has been spending most of the last week in bed. No one sided weakness, change in speech, hearing or vision. Her abdominal pain is something that is recurrent and tends to resolve with lactulose use. Usually lasts for a few days and then resolves. On her previous admission she had moderate ascites on CT however on US there was not enough ascites to perform paracentesis. No nausea, vomiting, dysphagia, odynophagia, change in bowels. She has been compliant with her lactulose x4/day. Principal Diagnosis weakness, mild hepatic encephalopathy Discharge Exam General she is awake and alert pleasant no distress. HEENT normocephalic atraumatic mucous membranes moist. Breathing unlabored no accessory muscle use good effort. Skin shows no rashes no pallor or icterus. Discharge Data Allergies Allergy/AdvReac Type Severity Reaction Status Date / Time bee venom protein (honey bee) Allergy Severe Anaphylaxis Verified 07/19/22 18:03 Influenza Virus Vaccines Allergy Severe Anaphylaxis Verified 07/19/22 18:03 tetracycline AdvReac Severe Severe Verified 07/19/22 18:03 stomach pains Consultations 07/19/22 17:29 ED Decision to Admit Stat Ordered Studies 07/19/22 15:34 CT Abd and Pelvis [CT abd pelvis IV con only] Stat 07/19/22 18:24 CT head/brain wo con Stat 07/21/22 08:00 US abdomen ltd ascites Routine Hospital Course (1) 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: Liver Cirrhosis 2/2 [facility] Hospital Course - ED (July 19) given lactulose, IV morphine, and IV magnesium - Liver function testing: Remarkable findings as follows - Bilirubin: 4.7 H (July 20); 4.3 H (July 21) - INR: 1.3 H (July 20); 1.4 H (July 21) - Albumin: 3.0 L (July 20); 3.0 L (July 21) - Protein 4.8 L (July 20); 4.8 L (July 21) - CBC: Remarkable findings as follows - WBC: 4.22 L (July 20); 4.06 L (July 21) - Hb/Hct: 8.7/26.4 L (July 20); 8.3/25.4 L (July 21) - Plts and Coagulation Studies: WNL - Magnesium and Iron Studies: WNL (July 20) - Ammonia: 93 H (July 20) - Imaging (July 20): - CT of Abdomen/Pelvis: - Evidence of cirrhosis with portal HTN, varices formation, and ascites present - No diverticulitis or bowel obstruction noted - CXR: - No evidence of PNA, PTX, or pleural effusion - CT of Head: - No intracranial findings noted - Findings suggestive of left sphenoid sinusitis - Paracentesis was scheduled for (July 21) and was found to have insufficient amount of ascitic fluid for the procedure. - Small amount of ascitic fluid supports against spontaneous bacterial peritonitis (was given ceftriaxone in case of SBP) Plan - Discharge to [facility] - Discontinue ceftriaxone given low clinical suspicion of SBP, and with not enough fluid to taphighly doubtful - Discharge on lactulose (30 mg PO QID) and rifaximin (550 mg PO BID) - Discharge on propranolol (80 mg PO QAM) -Resident physician was going to contact the transplant team today to coordinate/update - Chronic Conditions: discharge on home medications - Gastric Ulcer: Continue omeprazole - HTN: Continue chlorthalidone - Hypothyroidism: Continue levothyroxine - Diabetes Mellitus: Continue insulin regimen and CGM monitoring - Hyperlipidemia: Continue statin medication Total Time Total Time Spent Total Time Spent (In Minutes): <30 Discharge Plan Discharge Items Patient Disposition: Transfer Inpatient Rehab Fac Reason For Visit: HEPATIC ENCEPHALOPATHY Discharge Diagnosis: Abdominal Pain Activity: Per Instructions section Non-emergency contact: Primary Care Provider and Stock Supervisor Call non-emergency contact if: you have any medication questions, your symptoms worsen, your pain is not controlled, your pain is worsening, your pain is unusual for you, your pain is concerning for you, you have a fever, your rectal temperature is above 100.4, your temperature is above 101, your temperature is above 101.5, your wound has increased redness, your wound has increased drainage and your wound pain has increased Follow-up/Referrals: Lakisha Arriaga [Primary Care Provider] - Diet: Regular Addtl Attending Provider Instructions: Aurelia Kurtz is a 67yo female with a history of REBOLLAR cirrhosis (on transplant waitlist), portal hypertension, esophageal varices, hepatic encephalopathy, DM2, HLD, Moeller's esophagus, MDD, KAREN, and hypothyroidism, who was admitted to [facility] from 07/19 to 07/21 for abdominal pain, fatigue and decreased appetite. Patient was initially diagnosed with hepatic encephalopathy, as her ammonia was elevated at 85. However patient seems to have chronically high ammonia, and she never showed signs of encephalopathy or confusion. She was admitted and placed on her regular home medications including home Lactulose/Rifaximin, but never developed confusion/altered mental status. Given that patient initially complained of mild abdominal pain, she was started on Ceftriaxone 2g IV on 07/20 to cover for possible SBP. However patient's other labs were reassuring and she did not have other symptoms/signs of this. Also had a CT A/P with stable findings of cirrhosis with portal HTN, varices and mild ascites, without acute process. Paracentesis was not able to be performed due to minimal ascites, and patient's abdominal pain resolved after having a bowel movement. Patient's antibiotics were discontinued on 07/21. Patient's overall presentation is most consistent with weakness/deconditioning in setting of comorbidities. She will benefit from rehab stay after hospitalization. Patient will be discharged in improved, stable condition on 07/21, with transfer to acute rehab facility - [facility]. She will continue all home medications without changes. Pending Studies at Discharge: No Stand-Alone Forms: My [facility] Skilled Items Patient informed of condition?: Yes DNR: Yes Discharge Level of Care: Acute rehab Communicable Disease: No Discharge Prognosis: Improving Lines: None Urinary Catheter: No Medications and DC Order Prescriptions: Continued levothyroxine 112 mcg tablet 112 mcg PO Q2D Qty: 45 1RF Rx Instructions: 112 mcg PO every other day, alternate with 100 mcg. Take 1st thing in the morning on an empty stomach 30 min prior to any other oral intake. (DME) pen needle, diabetic [BD Ultra-Fine Lani Pen Needle] 32 gauge x 5/32" needle See Rx Instructions .Route Qty: 300 3RF Rx Instructions: Use 3 per day with insulin injection (DME) FreeStyle Lisy 3 Sensor Device See Rx Instructions .Route Qty: 2 11RF Rx Instructions: Change every 14 days omeprazole 40 mg Capsule,Delayed Release(Dr/Ec) 40 mg PO QAM potassium chloride [Klor-Con M20] 20 mEq tablet,ER particles/crystals 20 meq PO BID magnesium oxide 500 mg Tablet 500 mg PO QAM Trulicity 3 mg/0.5 mL pen injector 3 mg subcut WK Rx Instructions: sundays hydroxyzine HCl 25 mg tablet 25 mg PO HS lactulose 20 gram/30 mL solution 30 g PO TID Novolin R FlexPen 100 unit/mL (3 mL) Insulin Pen 0 unit SUBCUT BID PRN (Reason: Hyperglycemia) levothyroxine 100 mcg tablet 100 mcg PO Q2D Rx Instructions: ALTERNATE EVERY OTHER DAY WITH 112MCG. paroxetine HCl 20 mg tablet 20 mg PO QAM Xifaxan 550 mg tablet 550 mg PO BID hyoscyamine sulfate 0.125 mg tablet,disintegrating 0.125 mg PO QID PRN (Reason: Abdominal Pain) rosuvastatin 20 mg tablet 20 mg PO HS Baqsimi 3 mg/actuation spray,non-aerosol 3 mg INTRANASAL .UD PRN (Reason: Hypoglycemia) Women's 50 Plus Multivitamin 400 mcg-500 mg calcium-20 mcg Tablet 1 tab PO QAM propranolol 80 mg capsule,extended release 24hr 80 mg PO QAM tramadol 50 mg tablet 50 mg PO Q4 PRN (Reason: Pain) ondansetron 4 mg tablet,disintegrating 4 mg PO TID PRN (Reason: Nausea And Vomiting) chlorthalidone 25 mg tablet 25 mg PO QAM Discharge Orders: Discharge Order (Routine); Ordered 07/21/22 Ordered By: Chris Davis Admission Data Admit Date/Time: 07/19/22 18:38 Attending Provider: Jozef Fairchild Admit Provider: Rogelio Landry Primary Care Provider: Lakisha Arriaga Other Providers: Rogelio Landry ; [facility] Other Interventions: Discharge Summary Assessment (RN) Last Done: 07/21/22 14:56 Coding Level of Care Code 24997 IN/OBS DISCH 30 MIN/LESS Diagnoses 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
--- NOTE | 2022-07-21 21:57 | Electrocardiogram Report ---
Test Reason : Blood Pressure : / mmHG Vent. Rate : 068 BPM Atrial Rate : 068 BPM P-R Int : 124 ms QRS Dur : 082 ms QT Int : 440 ms P-R-T Axes : 034 -11 012 degrees QTc Int : 467 ms Normal sinus rhythm Minimal voltage criteria for LVH, may be normal variant ( R in aVL ) Cannot rule out Anterior infarct , age undetermined Abnormal ECG When compared with ECG of 18-APR-2022 08:22, Nonspecific ST abnormality is no longer present in lateral leads Confirmed by Sg Clark ([id number]) on 07/21/2022 9:56:59 PM Referred By: REFERRED SELF Confirmed By:Sg Clark
== END 2022-07-21 15:53 | DRG 442 ==
LOC: ED 13:53 → 3N 18:38 → SUATTDRO 18:38 → 3N 21:06

== ENCOUNTER 2023-04-20 20:42 | Inpatient (IN) ==
[2023-04-20 21:40] LABS: Hemoglobin 8.2 g/dl (12.0-16.0); Mean Corpuscular Hgb Conc 27.3 g/dL (32.0-36.0); Mean Corpuscular Volume 62.1 fL (80.0-100.0); Mean Platelet Volume 8.8 fL (9.4-12.4); Platelet Count 387 K/uL (130-400); RDW Coefficient of Variation 18.7 % (11.5-14.5); RDW Standard Deviation 41.5 fL (36.4-46.3); Red Blood Count 4.83 M/uL (4.20-5.40); White Blood Count 3.75 K/ul (4.8-10.8)
[2023-04-20 21:47] LABS: Albumin Globulin Ratio 1.5 (0.9-2); BUN Creatinine Ratio 12.2 (10-20); Bilirubin,Total 0.3 mg/dl (0.2-1.0); Calcium 9.5 mg/dl (8.6-10.3); Creatinine Clr Calc Pharmacy 59.1 ml/min; Est GFR (African American) 84.6 ml/min; Globulin 2.7 gm/dl (2.5-4.0); Potassium 3.8 mmol/L (3.5-5.1); Total Protein 6.7 gm/dl (6.0-8.3)
[2023-04-20 21:49] LABS: Appearance Urine Clear (Clear); Bacteria Urine Automated Negative (Negative); Bilirubin Urine Negative (Negative); Blood Urine Negative (Negative); Color Urine Yellow; Glucose Urine UA Negative (Negative); Ketones Urine Negative (Negative); Leukocyte Esterase Urine Negative (Negative); Nitrite Urine Negative (Negative); Protein Urine 1+ (Negative); RBC Urine Automated 0-4 /hpf (0-4); Specific Gravity Urine 1.013 (1.000-1.030); Urobilinogen Urine Negative (Negative); pH Urine 5.5 (4.5-7.5)
[2023-04-20 22:15] LABS: Adenovirus PCR Not Detected (NotDetected); Bordetella parapertussis PCR Not Detected (NotDetected); Bordetella pertussis PCR Not Detected (NotDetected); Chlamydia pneumoniae PCR Not Detected (NotDetected); Coronavirus 229E PCR Not Detected (NotDetected); Coronavirus CoV-2 (COVID19)PCR Not Detected (NotDetected); Coronavirus HKU1 PCR Not Detected (NotDetected); Coronavirus NL63 PCR Not Detected (NotDetected); Coronavirus OC43PCR Not Detected (NotDetected); Human Metapneumovirus PCR Not Detected (NotDetected); Influenza A PCR Not Detected (NotDetected); Influenza B PCR Not Detected (NotDetected); Mycoplasma pneumoniae PCR Not Detected (NotDetected); Parainfluenza Virus 1 PCR Not Detected (NotDetected); Parainfluenza Virus 2 PCR Not Detected (NotDetected); Parainfluenza Virus 3 PCR Not Detected (NotDetected); Parainfluenza Virus 4 PCR Not Detected (NotDetected); Respiratory Syncytial VirusPCR Not Detected (NotDetected); Rhinovirus/Enterovirus PCR Not Detected (NotDetected)
[2023-04-20 22:20] LABS: Basophils # (auto) 0.05 K/uL (0.00-0.20); Basophils % (auto) 1.3 %; Eosinophils # (auto) 0.12 K/uL (0.00-0.50); Eosinophils % (auto) 3.2 %; Immature Granulocytes # (auto) 0.03 K/uL (0.01-0.20); Immature Granulocytes % (auto) 0.8 %; Lymphocytes # (auto) 0.89 K/uL (1.20-3.40); Lymphocytes % (auto) 23.7 %; Microcytosis Present; Monocytes # (auto) 0.34 K/uL (0.11-0.59); Monocytes % (auto) 9.1 %; Neutrophils # (auto) 2.32 K/uL (1.40-6.50); Neutrophils % (auto) 61.9 %; Ovalocytes 1+; Polychromasia 1+
--- NOTE | 2023-04-20 22:21 | Emergency Department Note ---
History of Present Illness General Chief complaint: Abdominal Pain Stated complaint: ABDOMINAL PAIN, ATTEMTED SURGERY TO REMOVE STINT Time Seen by Provider: 04/20/23 22:02 History of Present Illness This 67-year-old female who had a liver transplant 6 months ago at [facility] presents the ER for increasing abdominal pain with fever and chills to was seen at [facility] yesterday and had an EGD and attempt to remove the biliary duct stent. They were unsuccessful discharged her and then told her to come here today as she was having worsening pain and not feeling well. Patient denies chest pain, dyspnea, cough, congestion, vomiting, diarrhea. Home Medications Medication Instructions Recorded Confirmed Type potassium chloride 20 mEq 20 meq PO BID 12/22/21 02/02/23 History tablet,extended release(part/cryst) (Klor-Con M) magnesium oxide 500 mg tablet 500 mg PO QAM 01/22/22 02/02/23 History pen needle, diabetic 32 gauge x #300 ea 06/12/22 02/02/23 Rx 5/32" (BD Ultra-Fine Lani Pen Needle) glucagon 3 mg/actuation nasal 3 mg intranasal .UD PRN 06/18/22 02/02/23 History spray (Baqsimi) Hypoglycemia insulin regular human 100 unit/mL 0 unit subcut BID PRN Hyperglycemia 06/18/22 02/02/23 History (3 mL) subcutaneous pen (Novolin R FlexPen) blood-glucose sensor (FreeStyle #2 ea 09/11/22 02/02/23 Rx Lisy 3 Sensor device) amlodipine 10 mg tablet 10 mg PO QAM 02/02/23 04/21/23 History aspirin 81 mg tablet,delayed 81 mg PO DAILY 02/02/23 02/02/23 History release biotin 1 mg capsule 1 mg PO DAILY 02/02/23 02/02/23 History dulaglutide 1.5 mg/0.5 mL 1.5 mg (0.5 mL) subcut ONCE #2 mL 02/02/23 02/02/23 Rx subcutaneous pen injector ([facility]) everolimus (immunosuppressive) 0.75 mg PO Q12H 02/02/23 02/02/23 History 0.75 mg tablet gabapentin 300 mg capsule 300 mg PO BID 02/02/23 02/02/23 History sertraline 100 mg tablet 100 mg PO QPM 02/02/23 04/21/23 History sulfamethoxazole 800 1 tab PO 3XWK 02/02/23 04/21/23 History mg-trimethoprim 160 mg tablet tirzepatide 5 mg/0.5 mL 5 mg (0.5 mL) subcut .weekly #2 mL 02/09/23 Rx subcutaneous pen injector (Mounjaro) levothyroxine 125 mcg tablet 125 mcg PO DAILYBB 04/21/23 04/21/23 History pantoprazole 40 mg tablet,delayed 40 mg PO QAM 04/21/23 04/21/23 History release Allergies Allergy/AdvReac Type Severity Reaction Status Date / Time bee venom protein (honey bee) Allergy Severe Anaphylaxis Verified 02/02/23 09:00 Influenza Virus Vaccines Allergy Severe Anaphylaxis Verified 02/02/23 09:00 tetracycline AdvReac Severe Severe Verified 02/02/23 09:00 stomach pains Past Med/Surg History Medical History Sinusitis Encephalopathy, hepatic Left wrist sprain Benign essential tremor Generalized weakness LISA (acute kidney injury) Moeller esophagus Portal hypertension Neutropenic typhlitis Pancytopenia Hyperammonemia Hepatic encephalopathy Abdominal pain Hypothyroidism Liver disease Weakness Hyperbilirubinemia REBOLLAR (nonalcoholic steatohepatitis) History of colon polyps BENIGN Depression UTI (urinary tract infection) HX, JULY 2021 -HOSPITALIZED FOR , NOW RESOLVED DURING TESTING FOUND 2 LUMPS IN INTESTINES...REASON FOR UPCOMING COLONOSCOPY History of fractured vertebra CURRENT, HX FALL JULY 2021 - FELL OF THE TOILET - NO INTERVENTION AT PRESENT/ [facility] FOR TO DISCUSS TX OPTIONS - POTENTIAL BACK BRACE Urge incontinence 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 Abnormal finding on breast imaging Urinary tract infection Fracture of fourth lumbar vertebra Chronic diarrhea SOMETIMES - when takes lactulose Primary hyperparathyroidism Benign paroxysmal positional vertigo of left ear Sensorineural hearing loss (SNHL) of both ears asymmetrical, left WRS Seasonal allergies Thrombocytopenia Syncope Epistaxis Arthritis History of kidney stones GERD (gastroesophageal reflux disease) Anemia HX Temporomandibular joint disorder 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 Anxiety and depression Diabetes mellitus, type 2 GI bleed RECENT HOSPITALIZED - PT DENIES HX GI BLEED Colitis with rectal bleeding Spleen enlarged MONITORS - PT REPORTS FROM THE REBOLLAR 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 Hiatal hernia Stucco keratoses Heel spur B/L feet Moeller's esophagus with esophagitis Hypertension Hyperlipidemia Surgical History H/O thumb surgery RT/LEFT JOINT REPAIR History of cystoscopy History of appendectomy History of tooth extraction History of tonsillectomy and adenoidectomy H/O total hysterectomy History of arthroscopy of knee Left Knee - meniscus/cartilage History of esophagogastroduodenoscopy (EGD) History of colonoscopy Hx of cholecystectomy Family History Brother Coronary heart disease Heart disease Mother Family history of diabetes mellitus Hypertension Heart disease Sister Family history of diabetes mellitus Son Family history of diabetes mellitus Father Family hx of colon cancer Hearing loss Hypertension Cancer Heart disease Grandfather (Maternal) Family hx of colon cancer Other No family history of adverse response to anesthesia No family history of bleeding disorder Social History Smoking Status: Never smoker Second Hand Exposure: No; Do You Dip or Chew Tobacco: No; Hx Alcohol Use: No Hx Substance Use: No Preferred Language: Turkmen Communication Ability: Effective Stud Driver Required: No Beliefs That Will Affect Care: None marital status: Current Living Situation: Spouse Current Living Situation Comment: lives in ranch style home with current occupational status: employed and retired How many Children do You have: 0 Feels Safe at Home: Yes Assistive Devices: Walker and Wheelchair Review of Systems A total of 10 systems reviewed and were otherwise negative Physical Exam Vital Signs Vital Signs - 24 hr 04/20/23 20:48 04/20/23 22:56 Temperature 36.6 C Temperature Source Temporal Artery Scan Pulse Rate 74 Pulse Rate [Finger] 66 Respiratory Rate 18 18 Respiratory Effort / Characteristics Non-Labored Spontaneous Respiratory Depth Normal Blood Pressure 135/79 Blood Pressure [Right Arm] 139/65 Blood Pressure Mean 97 Blood Pressure Mean [Right Arm] 89 Pulse Oximetry 97 95 Oxygen Delivery Method Room Air Room Air Sepsis Recent Fever Within 48 Hours No Sepsis New/Unexplained Change in Mental Status No Sepsis Action Taken by Nursing No Action Required VITALS: Vitals are noted on the nurse's note and reviewed by myself. Vital signs low-grade temperature. GENERAL: Pleasant female, in no acute distress, nondiaphoretic, well-developed well-nourished. SKIN: Capillary reflex less than 2 seconds. HEENT: Normocephalic. PERRLA. EOMI. Nares patent. Mucous membranes moist. Neck is supple without nuchal rigidity. HEART: Regular rate and rhythm LUNGS: Clear to auscultation bilaterally without wheezes, rales or rhonchi. No retractions or accessory muscle use. ABDOMEN: Positive bowel sounds x 4. Normal tympanic percussion. Soft, diffusely tender with increased pain in the right upper and lower quadrants, without masses or organomegaly. Ocampo sign negative. no CVA tenderness MUSCULOSKELETAL: No gross musculoskeletal defects. NEURO: Patient was alert and oriented to person place and time. No focal neurological deficits. Course Administered Medications Discontinued Medications Piperacillin Sod/Tazobactam Sod (Zosyn) 4.5 gm in 100 mls @ 200 mls/hr IV NOW ONE Stop: 04/20/23 22:40 Last Infusion: 04/20/23 23:44 Dose: Infused Documented By: Admin: 04/20/23 22:52 Dose: 200 mls/hr Documented By: WALTER Sodium Chloride (Nss) 1,000 mls @ 999 mls/hr IV .Q1H1M ONE Stop: 04/20/23 23:13 Last Infusion: 04/20/23 23:44 Dose: Infused Documented By: Admin: 04/20/23 22:52 Dose: 999 mls/hr Documented By: WALTER Ioversol (Optiray 320 500ml) 87 ml IV ONCE ONE Stop: 04/20/23 22:47 Last Admin: 04/20/23 22:46 Dose: 87 ml Documented By: ZULEIKA Morphine Sulfate (Morphine Sulfate 4 Mg/Ml 1 Ml Carp\\Vial) 4 mg IV NOW STA Stop: 04/20/23 22:12 Last Admin: 04/20/23 22:25 Dose: 4 mg Documented By: WALTER Morphine Sulfate (Morphine Sulfate 4 Mg/Ml 1 Ml Carp\\Vial) 4 mg IV NOW STA Stop: 04/21/23 00:11 Last Admin: 04/21/23 00:38 Dose: 4 mg Documented By: JOANNA Ondansetron HCl (Ondansetron Inj 2 Mg/Ml 2 Ml Vial) 4 mg IV NOW STA Stop: 04/20/23 22:12 Last Admin: 04/20/23 22:25 Dose: 4 mg Documented By: WALTER Medical Decision Making Medical Records Attestation: I reviewed the patient's medical records. Home Medications Current Medication List: was personally reviewed by me Laboratory Data Attestation: I reviewed the patient's lab results. 04/20/23 21:07 04/20/23 21:07 Lab Results 04/20/23 04/20/23 Range/Units 21:07 22:28 WBC 3.75 L (4.8-10.8) K/ul RBC 4.83 (4.20-5.40) M/uL Hgb 8.2 L (12.0-16.0) g/dl Hct 30.0 L (37.0-47.0) % MCV 62.1 L (80.0-100.0) fL MCH 17.0 L (25.0-34.0) pg MCHC 27.3 L (32.0-36.0) g/dL RDW Std Deviation 41.5 (36.4-46.3) fL RDW Coeff of Charlee 18.7 H (11.5-14.5) % Plt Count 387 (130-400) K/uL MPV 8.8 L (9.4-12.4) fL Immature Gran % (Auto) 0.8 % Neut % (Auto) 61.9 % Lymph % (Auto) 23.7 % Bowie % (Auto) 9.1 % Eos % (Auto) 3.2 % Baso % (Auto) 1.3 % Neut # (Auto) 2.32 (1.40-6.50) K/uL Lymph # (Auto) 0.89 L (1.20-3.40) K/uL Bowie # (Auto) 0.34 (0.11-0.59) K/uL Eos # (Auto) 0.12 (0.00-0.50) K/uL Baso # (Auto) 0.05 (0.00-0.20) K/uL Immature Gran # (Auto) 0.03 (0.01-0.20) K/uL Polychromasia 1+ Microcytosis Present Ovalocytes 1+ Sodium 138 (136-145) mmol/L Potassium 3.8 (3.5-5.1) mmol/L Chloride 103 (98-107) mmol/L Carbon Dioxide 28 (21-32) mmol/L Anion Gap 7 (3-11) BUN 10 (6-23) mg/dl Creatinine 0.82 (0.6-1.2) mg/dl Est Cr Clr Drug Dosing 59.1 ml/min Est GFR ( Amer) 84.6 ml/min Est GFR (Non-Af Amer) 73.0 ml/min BUN/Creatinine Ratio 12.2 (10-20) Glucose 111 H (70-99(Fasting)) mg/dl Lactate 1.2 (0.4-2.0) mmol/L Calcium 9.5 (8.6-10.3) mg/dl Total Bilirubin 0.3 (0.2-1.0) mg/dl AST 26 (13-39) U/L ALT 20 (7-52) U/L Alkaline Phosphatase 110 H (34-104) U/L Total Protein 6.7 (6.0-8.3) gm/dl Albumin 4.0 (3.4-5.0) gm/dl Globulin 2.7 (2.5-4.0) gm/dl Albumin/Globulin Ratio 1.5 (0.9-2) Lipase 25 (11-82) U/L Procalcitonin 0.08 (0-0.5) ng/ml Urine Color Yellow Urine Appearance Clear (Clear) Urine pH 5.5 (4.5-7.5) Ur Specific [place] 1.013 (1.000-1.030) Urine Protein 1+ H (Negative) Urine Glucose (UA) Negative (Negative) Urine Ketones Negative (Negative) Urine Blood Negative (Negative) Urine Nitrite Negative (Negative) Urine Bilirubin Negative (Negative) Urine Urobilinogen Negative (Negative) Ur Leukocyte Esterase Negative (Negative) Urine WBC (Auto) 1-5 (0-5) /hpf Urine RBC (Auto) 0-4 (0-4) /hpf U Hyaline Cast (Auto) 1-5 (0-5) /lpf U Epithel Cells (Auto) 10-20 H (0-5) /lpf Urine Bacteria (Auto) Negative (Negative) Adenovirus (PCR) Not Detected (NotDetected) B. pertussis DNA (PCR) Not Detected (NotDetected) B.parapertussis DNA PCR Not Detected (NotDetected) C. pneumoniae DNA (PCR) Not Detected (NotDetected) Coronavirus OC43 (PCR) Not Detected (NotDetected) Coronavirus HKU1 (PCR) Not Detected (NotDetected) Coronavirus 229E (PCR) Not Detected (NotDetected) SARS-CoV-2 (PCR) Not Detected (NotDetected) Coronavirus NL63 (PCR) Not Detected (NotDetected) Human Metapneumovir PCR Not Detected (NotDetected) Influenza Type A (PCR) Not Detected (NotDetected) Influenza Type B (PCR) Not Detected (NotDetected) M. pneumoniae (PCR) Not Detected (NotDetected) Parainfluenza 1 (PCR) Not Detected (NotDetected) Parainfluenza 2 (PCR) Not Detected (NotDetected) Parainfluenza 3 (PCR) Not Detected (NotDetected) Parainfluenza 4 (PCR) Not Detected (NotDetected) RSV (PCR) Not Detected (NotDetected) Entero/Rhino (PCR) Not Detected (NotDetected) Imaging Data Attestation: I personally reviewed and interpreted this imaging study as follows: Radiologist's Impression: Abdomen/Pelvis CT 04/20/23 22:11 Exam(s): CT ABDOMEN + PELVIS With Contrast IV Amt: 87ml optiray 320 EXAM: CT Abdomen and Pelvis With Intravenous Contrast CLINICAL HISTORY: Reason for exam: liver transplant, failed biliary stent removal yes. TECHNIQUE: Axial computed tomography images of the abdomen and pelvis with intravenous contrast. CTDI is 18.9 mGy and DLP is 986.66 mGy-cm. Automated exposure control was utilized for the study. A dose lowering technique was utilized adhering to the principles of ALARA. CONTRAST: Patient received 87ml optiray 320 of IV contrast COMPARISON: 02/09/2023. FINDINGS: Lung bases: Right lower lobe consolidation, likely atelectasis, cannot exclude residual infiltrate. Trace left lower lobe subpleural and lingular atelectasis. Heart: Unremarkable. No cardiomegaly. No significant pericardial effusion. Normal cardiac size with mild coronary artery calcifications. ABDOMEN: Liver: Status post surgical changes with numerous sutures and clips along the medial liver consistent with known history of liver transplant. Nonspecific distention of the common hepatic duct up to 19 mm. Gallbladder and bile ducts: See above. Pancreas: Unremarkable. No mass. No ductal dilation. Spleen: The spleen is enlarged up to 14.4 cm suggestive of mild splenomegaly. Adrenals: Unremarkable. No mass. Kidneys and ureters: Unremarkable. No solid mass. No hydronephrosis. Stomach and bowel: Duodenal diverticulum noted at the duodenal C- loop/pancreatic head region. Diverticulosis throughout the colon so through the sigmoid with no signs of diverticulitis. No obstruction. PELVIS: Appendix: Normal appendix. Bladder: Unremarkable. No mass. Reproductive: Nonvisualized uterus suggestive of previous hysterectomy. ABDOMEN and PELVIS: Intraperitoneal space: Unremarkable. No free air. No significant fluid collection. Bones/joints: Mild compression fracture of L4, exact age indeterminate. Multilevel degenerative disease of the spine. No dislocation. Soft tissues: Unremarkable. Vasculature: Mild calcified at the skull disease of aorta with no aneurysm. Lymph nodes: Unremarkable. No enlarged lymph nodes. IMPRESSION: 1. Status post liver transplant with splenomegaly. Nonspecific biliary distention, the common bile duct measuring maximum 19 mm . Otherwise unremarkable abdominal viscera. 2. Diverticulosis throughout the colon with no signs of diverticulitis. No acute appendicitis or bowel obstruction. Nonspecific duodenal diverticulum near the sphincter of Oddi. Electronically signed by: Jacqueline Greene MD 04/20/23 23:28 PM MDM Narrative Prior records/ancillary studies reviewed. Triage Nursing notes reviewed. Additional history obtained from family. The patient's history was concerning for abdominal pain. Differential diagnosis: Etiologies such as postsurgical complication, liver transplant complication, appendicitis, diverticulitis, PUD, biliary pathology, UTI, pancreatitis, obstruction, mesenteric ischemia, aortic pathology, infections, inflammatory bowel disease, renal colic, as well as others were entertained. Physical examination findings: As above. ER treatment provided: An order was placed for continuous cardiac monitoring. The monitor shows a rate of 60-100 with a sinus rhythm per my Independent interpretation. Zosyn, morphine, Zofran, IV fluids, vancomycin On reassessment the patient felt better. Diagnostics interpreted by me: The labs Independently Interpreted by myself revealed no worrisome leukocytosis, stable anemia per chart review Blood cultures pending Imaging studies: Chest x-ray with no acute consolidation, pneumothorax or free air per my independent interpretation Abdominal pelvis CT was reviewed by myself and read by radiology as above. Consultation: A consultation was placed with the hospitalist. The case was discussed and diagnostics were reviewed. The patient was evaluated in the ER for further treatment. Patient follows with [facility] transplant and sees Dr. Bailey. I spoke with the covering provider Dr. Wilton Foy and recommends Zosyn and vancomycin for possible developing cholangitis. He states the person can stay here. Exam and history seem consistent with dilated biliary duct after patient had an EGD done yesterday and attempts to remove the biliary stent. Patient had a low- grade temperature of 99.1. No perforation on CAT scan. No free air on x-ray. Negative procalcitonin. Negative lactic. Blood cultures pending. Patient was started on broad-spectrum antibiotics. Medicine was consulted. Transplant team was contacted. Patient will be admitted to the hospitalist team for further evaluation and workup. By the evaluation outlined above emergent etiologies such as appendicitis, diverticulitis, PUD, UTI, pancreatitis, obstruction, mesenteric ischemia, aortic pathology, inflammatory bowel disease, renal colic, as well as others were deemed relatively unlikely. The pt informed about the findings as listed above. All questions were answered and pleased with the treatment. The chart was completed utilizing Digital Message Display Speech voice recognition software. Grammatical errors, random word insertions, pronoun errors, and incomplete sentences are an occassional consequence of this system due to software limitations, ambient noise, and hardware issues. Any formal questions or concerns about the content, text, or information contained within the body of this dictation should be directly addressed to the physician commercial escrow assistant for clarification. Impression & Plan Abdominal pain, acute, Dilated bile duct, Liver transplant recipient Discharge Plan Visit Data Chief Complaint: Abdominal Pain Stated Complaint: ABDOMINAL PAIN, ATTEMTED SURGERY TO REMOVE STINT ED Provider: Saulo Clifton ED Midlevel Provider: Faby Gold Discharge Problem: Abdominal pain, acute, Dilated bile duct, Liver transplant recipient Patient Disposition: Admitted As Inpatient Condition: Good Forms Stand Alone Forms: My [facility] Medical Prescriptions Prescriptions: No Action (DME) pen needle, diabetic [BD Ultra-Fine Lani Pen Needle] 32 gauge x 5/32" needle See Rx Instructions .Route Qty: 300 3RF Rx Instructions: Use 3 per day with insulin injection (DME) FreeStyle Lisy 3 Sensor Device See Rx Instructions .Route Qty: 2 11RF Rx Instructions: Change every 14 days Mounjaro 5 mg/0.5 mL pen injector 5 mg subcut .weekly Qty: 2 2RF amlodipine 10 mg tablet 10 mg PO QAM aspirin 81 mg tablet,delayed release (DR/EC) 81 mg PO DAILY everolimus (immunosuppressive) 0.75 mg tablet 0.75 mg PO Q12H sulfamethoxazole-trimethoprim 800-160 mg tablet 1 tab PO 3XWK Rx Instructions: take this med every Wednesday/Wednesday/Wednesday. gabapentin 300 mg capsule 300 mg PO BID biotin 1 mg capsule 1 mg PO DAILY sertraline 100 mg tablet 100 mg PO QPM Trulicity 1.5 mg/0.5 mL pen injector 1.5 mg subcut ONCE Qty: 2 4RF Rx Instructions: Inject 1.5 mg into the abdomen once a week. potassium chloride [Klor-Con M20] 20 mEq tablet,ER particles/crystals 20 meq PO BID magnesium oxide 500 mg Tablet 500 mg PO QAM Novolin R FlexPen 100 unit/mL (3 mL) Insulin Pen 0 unit SUBCUT BID PRN (Reason: Hyperglycemia) Baqsimi 3 mg/actuation spray,non-aerosol 3 mg INTRANASAL .UD PRN (Reason: Hypoglycemia) levothyroxine 125 mcg tablet 125 mcg PO DAILYBB Rx Instructions: Take ONE tablet by mouth first thing in the morning on an empty stomach 30 min prior to any other oral intake. pantoprazole 40 mg tablet,delayed release (DR/EC) 40 mg PO QAM Referrals Referrals: Lakisha Arriaga MD [Primary Care Provider] -
[2023-04-20] MEDS: ONDANSETRON INJ 2 MG/ML 2 ML VIAL IV STA (22:25)
[2023-04-20] MEDS: MoRPHine SULFATE 4 MG/ML 1 ML CARP\\VIAL IV STA (22:25)
[2023-04-20] MEDS: OPTIRAY 320 500ml IV ONE (22:46)
[2023-04-20] MEDS: SODIUM CHLORIDE 0.9% 1,000 ML IV ONE (22:52)
[2023-04-20] MEDS: PIPERACILLIN/TAZOBACTAM 4.5 GM/100 ML BAG IV ONE (22:52)
--- NOTE | 2023-04-20 23:29 | CT Scan Report ---
Exam(s): CT ABDOMEN + PELVIS With Contrast IV Amt: 87ml optiray 320 EXAM: CT Abdomen and Pelvis With Intravenous Contrast CLINICAL HISTORY: Reason for exam: liver transplant, failed biliary stent removal yes. TECHNIQUE: Axial computed tomography images of the abdomen and pelvis with intravenous contrast. CTDI is 18.9 mGy and DLP is 986.66 mGy-cm. Automated exposure control was utilized for the study. A dose lowering technique was utilized adhering to the principles of ALARA. CONTRAST: Patient received 87ml optiray 320 of IV contrast COMPARISON: 02/09/2023. FINDINGS: Lung bases: Right lower lobe consolidation, likely atelectasis, cannot exclude residual infiltrate. Trace left lower lobe subpleural and lingular atelectasis. Heart: Unremarkable. No cardiomegaly. No significant pericardial effusion. Normal cardiac size with mild coronary artery calcifications. ABDOMEN: Liver: Status post surgical changes with numerous sutures and clips along the medial liver consistent with known history of liver transplant. Nonspecific distention of the common hepatic duct up to 19 mm. Gallbladder and bile ducts: See above. Pancreas: Unremarkable. No mass. No ductal dilation. Spleen: The spleen is enlarged up to 14.4 cm suggestive of mild splenomegaly. Adrenals: Unremarkable. No mass. Kidneys and ureters: Unremarkable. No solid mass. No hydronephrosis. Stomach and bowel: Duodenal diverticulum noted at the duodenal C- loop/pancreatic head region. Diverticulosis throughout the colon so through the sigmoid with no signs of diverticulitis. No obstruction. PELVIS: Appendix: Normal appendix. Bladder: Unremarkable. No mass. Reproductive: Nonvisualized uterus suggestive of previous hysterectomy. ABDOMEN and PELVIS: Intraperitoneal space: Unremarkable. No free air. No significant fluid collection. Bones/joints: Mild compression fracture of L4, exact age indeterminate. Multilevel degenerative disease of the spine. No dislocation. Soft tissues: Unremarkable. Vasculature: Mild calcified at the skull disease of aorta with no aneurysm. Lymph nodes: Unremarkable. No enlarged lymph nodes. IMPRESSION: 1. Status post liver transplant with splenomegaly. Nonspecific biliary distention, the common bile duct measuring maximum 19 mm . Otherwise unremarkable abdominal viscera. 2. Diverticulosis throughout the colon with no signs of diverticulitis. No acute appendicitis or bowel obstruction. Nonspecific duodenal diverticulum near the sphincter of Oddi. Electronically signed by: Jacqueline Greene MD 04/20/23 23:28 PM
[2023-04-20] MEDS ORDERED: VANCOMYCIN CONSULT ACTIVE PRN (23:53)
[2023-04-21] MEDS ORDERED: MoRPHine SULFATE 4 MG/ML 1 ML CARP\\VIAL IV PRN (00:10)
[2023-04-21] MEDS: MoRPHine SULFATE 4 MG/ML 1 ML CARP\\VIAL IV STA (00:38)
--- NOTE | 2023-04-21 00:41 | Emergency Department Note ---
ED Visit Note I was consulted by the Advanced Practice Provider. I personally made/approved the management plan and take responsibility for the patient management. I performed a substantive portion of the visit. This includes the aspects of: -History/Physical/Personally seeing the patient -MDM .
--- NOTE | 2023-04-21 00:45 | History & Physical Report ---
Date of Service April 21, 2023 Assessment & Plan (1) Abdominal pain, acute: (2) Liver transplant recipient: (3) History of biliary duct stent placement: (4) Dilated bile duct: (5) Hypertension: (6) Diabetes mellitus type 2 with complications: (7) Hypothyroidism: Plan Acute abdominal pain/liver transplant recipient/unsuccessful attempted biliary stent removal- Normal WBC and normal chemistry profile CT scan abdomen pelvis with dilated, bile duct and stent presents ED discussion with transplant team at [facility] asked that the patient be admitted at [facility] and placed on vancomycin IV and Zosyn IV Zofran 4 mg IV every 6 hours as needed Pantoprazole 40 mg IV daily Morphine sulfate 4 mg IV every 3 hours as needed for moderate to severe pain Full liquid diet as tolerated Continue everolimus, which patient will bring from home, and prednisone Diabetes mellitus- Hold tirzepatide subcu weekly Placed on Accu-Cheks with NovoLog SSI Hypertension- Change amlodipine from 10 mg every morning to 5 mg p.o. twice daily History of Present Illness Chief Complaint: The patient presents to the emergency department with acute onset of right upper quadrant, right flank and right back pain that began last evening persisted overnight and into the day today. Primary Care Provider: Lakisha Arriaga MD The patient is a 67-year-old female with a past medical history including liver transplant, vitamin D deficiency, history of GI bleeding, primary hyperparathyroidism, liver 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, hyperlipidemia, hypertension, diabetes mellitus type 2, and hypothyroidism. Patient underwent liver transplant at the end of 2022, and had undergone scheduled removal of common bile duct stent at [facility] yesterday morning. The physicians were unsuccessful in removing the stent, the patient was discharged to home, with plans for a conference to determine next step for re moval of the stent. In the interim, last evening, she developed the symptoms as noted above. She presented to the emergency department at [facility] for assessment, with imaging noted presence of the stent and mild common bile duct dilatation, and after conversation with the transplant center in [place], plan was to have the patient admitted to the hospitalist medical service at [facility], on IV vancomycin and IV Zosyn, and coordinate follow-up care with the [facility] at a later date. Allergies Allergy/AdvReac Type Severity Reaction Status Date / Time bee venom protein (honey bee) Allergy Severe Anaphylaxis Verified 04/21/23 01:22 Influenza Virus Vaccines Allergy Severe Anaphylaxis Verified 04/21/23 01:22 tetracycline AdvReac Severe Severe Verified 04/21/23 01:22 stomach pains Home Medications Medication Instructions Recorded Confirmed Type pen needle, diabetic 32 gauge x #300 ea 06/12/22 02/02/23 Rx 5/32" (BD Ultra-Fine Lani Pen Needle) blood-glucose sensor (FreeStyle #2 ea 09/11/22 02/02/23 Rx Lisy 3 Sensor device) biotin 1 mg capsule 1 mg PO AMPM 02/02/23 04/21/23 History gabapentin 300 mg capsule 300 mg PO AMPM 02/02/23 04/21/23 History sertraline 100 mg tablet 100 mg PO QPM 02/02/23 04/21/23 History sulfamethoxazole 800 1 tab PO 3XWK 02/02/23 04/21/23 History mg-trimethoprim 160 mg tablet amlodipine 10 mg tablet 10 mg PO QAM 04/21/23 04/21/23 History everolimus (antineoplastic) 5 mg 15 mg PO Q12H 04/21/23 04/21/23 History tablet levothyroxine 125 mcg tablet 125 mcg PO DAILYBB 04/21/23 04/21/23 History oxycodone 5 mg tablet 5 mg PO Q6H PRN Pain 04/21/23 04/21/23 History pantoprazole 40 mg tablet,delayed 40 mg PO QAM 04/21/23 04/21/23 History release prednisone 5 mg tablet 5 mg PO QAM 04/21/23 04/21/23 History tirzepatide 5 mg/0.5 mL 5 mg subcut WK 04/21/23 04/21/23 History subcutaneous pen injector (Mounjaro) tramadol 50 mg tablet 50 mg PO Q6H PRN Pain 04/21/23 04/21/23 History Past Med/Surg History Medical History Sinusitis Encephalopathy, hepatic Left wrist sprain Benign essential tremor Generalized weakness LISA (acute kidney injury) Moeller esophagus Portal hypertension Neutropenic typhlitis Pancytopenia Hyperammonemia Hepatic encephalopathy Abdominal pain Hypothyroidism Liver disease Weakness Hyperbilirubinemia REBOLLAR (nonalcoholic steatohepatitis) History of colon polyps BENIGN Depression UTI (urinary tract infection) HX, JULY 2021 -HOSPITALIZED FOR , NOW RESOLVED DURING TESTING FOUND 2 LUMPS IN INTESTINES...REASON FOR UPCOMING COLONOSCOPY History of fractured vertebra CURRENT, HX FALL JULY 2021 - FELL OF THE TOILET - NO INTERVENTION AT PRESENT/ [facility] FOR TO DISCUSS TX OPTIONS - POTENTIAL BACK BRACE Urge incontinence 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 Abnormal finding on breast imaging Urinary tract infection Fracture of fourth lumbar vertebra Chronic diarrhea SOMETIMES - when takes lactulose Primary hyperparathyroidism Benign paroxysmal positional vertigo of left ear Sensorineural hearing loss (SNHL) of both ears asymmetrical, left WRS Seasonal allergies Thrombocytopenia Syncope Epistaxis Arthritis History of kidney stones GERD (gastroesophageal reflux disease) Anemia HX Temporomandibular joint disorder 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 Anxiety and depression Diabetes mellitus, type 2 GI bleed RECENT HOSPITALIZED - PT DENIES HX GI BLEED Colitis with rectal bleeding Spleen enlarged MONITORS - PT REPORTS FROM [facility] [place] Liver cirrhosis secondary to [place] Hiatal hernia Stucco keratoses Heel spur B/L feet Moeller's esophagus with esophagitis Hypertension Hyperlipidemia Surgical History H/O thumb surgery RT/LEFT JOINT REPAIR History of cystoscopy History of appendectomy History of tooth extraction History of tonsillectomy and adenoidectomy H/O total hysterectomy History of arthroscopy of knee Left Knee - meniscus/cartilage History of esophagogastroduodenoscopy (EGD) History of colonoscopy Hx of cholecystectomy Family History Brother Coronary heart disease Heart disease Mother Family history of diabetes mellitus Hypertension Heart disease Sister Family history of diabetes mellitus Son Family history of diabetes mellitus Father Family hx of colon cancer Hearing loss Hypertension Cancer Heart disease Grandfather (Maternal) Family hx of colon cancer Other No family history of adverse response to anesthesia No family history of bleeding disorder Social History Smoking Status: Never smoker Second Hand Exposure: No; Do You Dip or Chew Tobacco: No; Hx Alcohol Use: No Hx Substance Use: No Preferred Language: Kittitian Communication Ability: Effective Commercial Director Required: No Beliefs That Will Affect Care: None marital status: Current Living Situation: Spouse Current Living Situation Comment: lives in ranch style home with current occupational status: employed and retired How many Children do You have: 0 Feels Safe at Home: Yes Assistive Devices: Walker and Wheelchair Review of Systems Review of Systems: The patient denies chest pain, palpitations, shortness of breath, dyspnea on exertion, cough, lower extremity swelling, sore throat, fevers, chills, sweats, weight change, fatigue, nausea, vomiting, blood in urine or stool, dysuria, urinary frequency or urgency, lightheadedness, dizziness, headache, memory loss, loss of consciousness, rash, abnormal bruising or bleeding, imbalance, focal or generalized weakness, numbness or tingling in arms or legs, generalized arthralgias or myalgias, neck pain, or night sweats. The review of systems is otherwise negative other than for that already noted above, and at least 10 systems have been reviewed. Physical Exam Physical Exam: The patient is awake, alert and oriented 3, well developed and well nourished, normocephalic and atraumatic, lying in bed and in no acute distress. HEENT--PERRL, EOMI, mucous membranes and oropharynx mildly dry. Neck--supple. No JVD. No bruits. Thyroid normal, trachea midline, no adenopathy. Heart--normal S1 and S2. No murmurs, rubs or gallops. Lungs--clear bilaterally, no respiratory distress, no accessory muscle use. Abdomen--normal bowel sounds and soft. Generalized abdominal discomfort. Nondistended Extremities--no cyanosis or clubbing. No edema. Dermatologic--normal skin turgor, normal color, no abnormal lymph nodes, no rash. Neurologic--cranial nerves II through XII grossly intact. Rheumatologic--normal range of motion. Psychiatric--normal affect. Results & Data Results & Data Vital Signs (Past 12 Hours) Vital Signs Temp Pulse Pulse Resp BP BP Pulse Ox 04/20/23 22:56 66 18 139/65 95 04/20/23 20:48 36.6 C 74 18 135/79 97 O2 Del Method 04/20/23 22:56 Room Air 04/20/23 20:48 Room Air Laboratory Results Laboratory Results WBC 3.75 K/ul (4.8-10.8) L 04/20/23 21:07 RBC 4.83 M/uL (4.20-5.40) 04/20/23 21:07 Hgb 8.2 g/dl (12.0-16.0) L 04/20/23 21:07 Hct 30.0 % (37.0-47.0) L 04/20/23 21:07 MCV 62.1 fL (80.0-100.0) L 04/20/23 21:07 MCH 17.0 pg (25.0-34.0) L 04/20/23 21:07 MCHC 27.3 g/dL (32.0-36.0) L 04/20/23 21:07 RDW Std Deviation 41.5 fL (36.4-46.3) 04/20/23 21:07 RDW Coeff of Charlee 18.7 % (11.5-14.5) H 04/20/23 21:07 Plt Count 387 K/uL (130-400) 04/20/23 21:07 MPV 8.8 fL (9.4-12.4) L 04/20/23 21:07 Immature Gran % (Auto) 0.8 % 04/20/23 21:07 Neut % (Auto) 61.9 % 04/20/23 21:07 Lymph % (Auto) 23.7 % 04/20/23 21:07 [place] % (Auto) 9.1 % 04/20/23 21:07 Eos % (Auto) 3.2 % 04/20/23 21:07 Baso % (Auto) 1.3 % 04/20/23 21:07 Neut # (Auto) 2.32 K/uL (1.40-6.50) 04/20/23 21:07 Lymph # (Auto) 0.89 K/uL (1.20-3.40) L 04/20/23 21:07 [place] # (Auto) 0.34 K/uL (0.11-0.59) 04/20/23 21:07 Eos # (Auto) 0.12 K/uL (0.00-0.50) 04/20/23 21:07 Baso # (Auto) 0.05 K/uL (0.00-0.20) 04/20/23 21:07 Immature Gran # (Auto) 0.03 K/uL (0.01-0.20) 04/20/23 21:07 Polychromasia 1+ 04/20/23 21:07 Microcytosis Present 04/20/23 21:07 Ovalocytes 1+ 04/20/23 21:07 Sodium 138 mmol/L (136-145) 04/20/23 21:07 Potassium 3.8 mmol/L (3.5-5.1) 04/20/23 21:07 Chloride 103 mmol/L (98-107) 04/20/23 21:07 Carbon Dioxide 28 mmol/L (21-32) 04/20/23 21:07 Anion Gap 7 (3-11) 04/20/23 21:07 BUN 10 mg/dl (6-23) 04/20/23 21:07 Creatinine 0.82 mg/dl (0.6-1.2) 04/20/23 21:07 Est Cr Clr Drug Dosing 59.1 ml/min 04/20/23 21:07 Est GFR ( Amer) 84.6 ml/min 04/20/23 21:07 Est GFR (Non-Af Amer) 73.0 ml/min 04/20/23 21:07 BUN/Creatinine Ratio 12.2 (10-20) 04/20/23 21:07 Glucose 111 mg/dl (70-99(Fasting)) H 04/20/23 21:07 Lactate 1.2 mmol/L (0.4-2.0) 04/20/23 22:28 Calcium 9.5 mg/dl (8.6-10.3) 04/20/23 21:07 Total Bilirubin 0.3 mg/dl (0.2-1.0) 04/20/23 21:07 AST 26 U/L (13-39) 04/20/23 21:07 ALT 20 U/L (7-52) 04/20/23 21:07 Alkaline Phosphatase 110 U/L (34-104) H 04/20/23 21:07 Total Protein 6.7 gm/dl (6.0-8.3) 04/20/23 21:07 Albumin 4.0 gm/dl (3.4-5.0) 04/20/23 21:07 Globulin 2.7 gm/dl (2.5-4.0) 04/20/23 21:07 Albumin/Globulin Ratio 1.5 (0.9-2) 04/20/23 21:07 Lipase 25 U/L (11-82) 04/20/23 21:07 Procalcitonin 0.08 ng/ml (0-0.5) 04/20/23 21:07 Urine Color Yellow 04/20/23 21:07 Urine Appearance Clear (Clear) 04/20/23 21:07 Urine pH 5.5 (4.5-7.5) 04/20/23 21:07 Ur Specific Eckert 1.013 (1.000-1.030) 04/20/23 21:07 Urine Protein 1+ (Negative) H 04/20/23 21:07 Urine Glucose (UA) Negative (Negative) 04/20/23 21:07 Urine Ketones Negative (Negative) 04/20/23 21:07 Urine Blood Negative (Negative) 04/20/23 21:07 Urine Nitrite Negative (Negative) 04/20/23 21:07 Urine Bilirubin Negative (Negative) 04/20/23 21:07 Urine Urobilinogen Negative (Negative) 04/20/23 21:07 Ur Leukocyte Esterase Negative (Negative) 04/20/23 21:07 Urine WBC (Auto) 1-5 /hpf (0-5) 04/20/23 21:07 Urine RBC (Auto) 0-4 /hpf (0-4) 04/20/23 21:07 U Hyaline Cast (Auto) 1-5 /lpf (0-5) 04/20/23 21:07 U Epithel Cells (Auto) 10-20 /lpf (0-5) H 04/20/23 21:07 Urine Bacteria (Auto) Negative (Negative) 04/20/23 21:07 Adenovirus (PCR) Not Detected (NotDetected) 04/20/23 21:07 B. pertussis DNA (PCR) Not Detected (NotDetected) 04/20/23 21:07 B.parapertussis DNA PCR Not Detected (NotDetected) 04/20/23 21:07 C. pneumoniae DNA (PCR) Not Detected (NotDetected) 04/20/23 21:07 Coronavirus OC43 (PCR) Not Detected (NotDetected) 04/20/23 21:07 Coronavirus HKU1 (PCR) Not Detected (NotDetected) 04/20/23 21:07 Coronavirus 229E (PCR) Not Detected (NotDetected) 04/20/23 21:07 SARS-CoV-2 (PCR) Not Detected (NotDetected) 04/20/23 21:07 Coronavirus NL63 (PCR) Not Detected (NotDetected) 04/20/23 21:07 Human Metapneumovir PCR Not Detected (NotDetected) 04/20/23 21:07 Influenza Type A (PCR) Not Detected (NotDetected) 04/20/23 21:07 Influenza Type B (PCR) Not Detected (NotDetected) 04/20/23 21:07 M. pneumoniae (PCR) Not Detected (NotDetected) 04/20/23 21:07 Parainfluenza 1 (PCR) Not Detected (NotDetected) 04/20/23 21:07 Parainfluenza 2 (PCR) Not Detected (NotDetected) 04/20/23 21:07 Parainfluenza 3 (PCR) Not Detected (NotDetected) 04/20/23 21:07 Parainfluenza 4 (PCR) Not Detected (NotDetected) 04/20/23 21:07 RSV (PCR) Not Detected (NotDetected) 04/20/23 21:07 Entero/Rhino (PCR) Not Detected (NotDetected) 04/20/23 21:07 Impressions Abdomen/Pelvis CT 04/20/23 22:11 Exam(s): CT ABDOMEN + PELVIS With Contrast IV Amt: 87ml optiray 320 EXAM: CT Abdomen and Pelvis With Intravenous Contrast CLINICAL HISTORY: Reason for exam: liver transplant, failed biliary stent removal yes. TECHNIQUE: Axial computed tomography images of the abdomen and pelvis with intravenous contrast. CTDI is 18.9 mGy and DLP is 986.66 mGy-cm. Automated exposure control was utilized for the study. A dose lowering technique was utilized adhering to the principles of ALARA. CONTRAST: Patient received 87ml optiray 320 of IV contrast COMPARISON: 02/09/2023. FINDINGS: Lung bases: Right lower lobe consolidation, likely atelectasis, cannot exclude residual infiltrate. Trace left lower lobe subpleural and lingular atelectasis. Heart: Unremarkable. No cardiomegaly. No significant pericardial effusion. Normal cardiac size with mild coronary artery calcifications. ABDOMEN: Liver: Status post surgical changes with numerous sutures and clips along the medial liver consistent with known history of liver transplant. Nonspecific distention of the common hepatic duct up to 19 mm. Gallbladder and bile ducts: See above. Pancreas: Unremarkable. No mass. No ductal dilation. Spleen: The spleen is enlarged up to 14.4 cm suggestive of mild splenomegaly. Adrenals: Unremarkable. No mass. Kidneys and ureters: Unremarkable. No solid mass. No hydronephrosis. Stomach and bowel: Duodenal diverticulum noted at the duodenal C- loop/pancreatic head region. Diverticulosis throughout the colon so through the sigmoid with no signs of diverticulitis. No obstruction. PELVIS: Appendix: Normal appendix. Bladder: Unremarkable. No mass. Reproductive: Nonvisualized uterus suggestive of previous hysterectomy. ABDOMEN and PELVIS: Intraperitoneal space: Unremarkable. No free air. No significant fluid collection. Bones/joints: Mild compression fracture of L4, exact age indeterminate. Multilevel degenerative disease of the spine. No dislocation. Soft tissues: Unremarkable. Vasculature: Mild calcified at the skull disease of aorta with no aneurysm. Lymph nodes: Unremarkable. No enlarged lymph nodes. IMPRESSION: 1. Status post liver transplant with splenomegaly. Nonspecific biliary distention, the common bile duct measuring maximum 19 mm . Otherwise unremarkable abdominal viscera. 2. Diverticulosis throughout the colon with no signs of diverticulitis. No acute appendicitis or bowel obstruction. Nonspecific duodenal diverticulum near the sphincter of Oddi. Electronically signed by: Jacqueline Greene MD 04/20/23 23:28 PM Code Status & VTE Plan Code Status Full code VTE Prophylaxis Plan VTE Prophylaxis will be ordered: Yes PG Care Time/CCT Total # of Minutes Spent Total Time Spent with Patient: Total time spent is greater than 50% in coordination of care (as documented) at patient's floor/unit and/or counseling patient: Coding Level of Care Code 72274 INT INP/OBS CARE 3/75MIN Diagnoses Abdominal pain, acute R10.9 Liver transplant recipient Z94.4 History of biliary duct stent placement Z98.890 Dilated bile duct K83.8 Primary hypertension I10 Hypertension type: primary hypertension Diabetes mellitus type 2 with complications E11.8 Hypothyroidism, unspecified type E03.9 Hypothyroidism type: unspecified (5) Hypertension Hypertension type: primary hypertension Qualified Code(s): I10 - Essential (primary) hypertension (7) Hypothyroidism Hypothyroidism type: unspecified Qualified Code(s): E03.9 - Hypothyroidism, unspecified
[2023-04-21] MEDS: VANCOMYCIN HCL 1,500 MG in SODIUM CHLORIDE 0.9% 500 ML IV ONE (00:55)
[2023-04-21] MEDS ORDERED: CARBOHYDRATES FOR HYPOGLYCEMIA PO PRN (01:12)
[2023-04-21] MEDS ORDERED: DEXTROSE 50% 50 ML SYRINGE IV PRN (01:12)
[2023-04-21] MEDS ORDERED: GLUCOSE 10 TAB/TUBE PO PRN (01:12)
[2023-04-21] MEDS ORDERED: GLUCAGON FOR INJ 1 MG VIAL SQ PRN (01:12)
[2023-04-21] MEDS ORDERED: GLUCOSE 40% GEL 15 GM TUBE PO PRN (01:12)
[2023-04-21] MEDS: NSS + 20MEQ KCL 20 MEQ/1,000 ML BAG IV SCH (02:05)
[2023-04-21] MEDS: MoRPHine SULFATE 4 MG/ML 1 ML CARP\\VIAL IV PRN (03:42)
[2023-04-21 06:26] VITALS: RESP 16
[2023-04-21] MEDS: PIPERACILLIN/TAZOBACTAM 4.5 GM in DEXTROSE 5% MINI-B 100 ML IV SCH (06:27)
[2023-04-21] MEDS: LEVOTHYROXINE SODIUM 125 MCG TABLET PO SCH (06:28)
[2023-04-21 07:33] LABS: Albumin Level 3.5 gm/dl (3.4-5.0); Bilirubin,Total 0.2 mg/dl (0.2-1.0); Calcium 8.7 mg/dl (8.6-10.3)
[2023-04-21 07:39] LABS: Albumin Globulin Ratio 1.8 (0.9-2); Est GFR (African American) 89.9 ml/min; Est GFR (Non-African American) 77.6 ml/min; Total Protein 5.5 gm/dl (6.0-8.3)
[2023-04-21 07:40] LABS: Hemoglobin 7.1 g/dl (12.0-16.0); Mean Corpuscular Hemoglobin 17.1 pg (25.0-34.0); Mean Corpuscular Hgb Conc 27.3 g/dL (32.0-36.0); Mean Corpuscular Volume 62.8 fL (80.0-100.0); Mean Platelet Volume 8.9 fL (9.4-12.4); Platelet Count 268 K/uL (130-400); RDW Coefficient of Variation 18.7 % (11.5-14.5); RDW Standard Deviation 42.3 fL (36.4-46.3); Red Blood Count 4.14 M/uL (4.20-5.40); White Blood Count 4.02 K/ul (4.8-10.8)
[2023-04-21 07:44] LABS: Prothrombin Time 10.7 Seconds (9.0-12.0)
[2023-04-21 07:45] LABS: Basophils # (auto) 0.04 K/uL (0.00-0.20); Eosinophils # (auto) 0.19 K/uL (0.00-0.50); Eosinophils % (auto) 4.7 %; Immature Granulocytes # (auto) 0.02 K/uL (0.01-0.20); Immature Granulocytes % (auto) 0.5 %; Lymphocytes # (auto) 0.75 K/uL (1.20-3.40); Lymphocytes % (auto) 18.7 %; Microcytosis Present; Neutrophils # (auto) 2.62 K/uL (1.40-6.50); Neutrophils % (auto) 65.1 %; Ovalocytes 1+; Polychromasia 1+; Tear Drop Cells 1+
--- NOTE | 2023-04-21 07:51 | Hospitalist Progress Note ---
Date of Service April 21, 2023 Assessment & Plan (1) Abdominal pain, acute: Plan: Acute abdominal pain/liver transplant recipient/unsuccessful attempted biliary stent removal- Normal WBC and normal chemistry profile CT scan abdomen pelvis with dilated, bile duct and stent presents Was started on vancomycin IV and Zosyn IV; plan to continue Zofran 4 mg IV every 6 hours as needed Pantoprazole 40 mg IV daily Morphine sulfate 4 mg IV every 3 hours as needed for moderate to severe pain Full liquid diet as tolerated Continue everolimus, which patient will bring from home, and prednisone Has been accepted for transfer to [facility]; waiting for bed (2) Liver transplant recipient: Plan: Plan as per above (3) History of biliary duct stent placement: Plan: Plan as per above (4) Dilated bile duct: Plan: Plan as per above (5) Hypertension: Plan: Change amlodipine from 10 mg every morning to 5 mg p.o. twice daily (6) Diabetes mellitus type 2 with complications: Plan: Hold tirzepatide subcu weekly Placed on Accu-Cheks with NovoLog SSI (7) Hypothyroidism: Plan: Continue levothyroxine Admission and Anticipated Discharge Date Admission Date: April 21, 2023 Subjective Pt notes continues right sided abdominal pain. Denies nausea, vomiting, fever, chills. Review of Systems Review of Systems: As per above Physical Exam Physical Exam: Constitutional: well-appearing, no acute distress HEENT: NCAT, no conjunctival injection CV: regular rhythm, no murmur appreciated, extremities well-perfused, no LE edema Resp: CTABL, no wheezes/rales/rhonchi appreciated, no increased work of breathing GI: soft, nondistended, mild right sided tenderness, BS normoactive MSK: no gross deformities appreciated Skin: warm, dry, no rash appreciated Neuro: alert, oriented, no focal neurologic deficit appreciated Results & Data Results & Data Vital Signs (Past 12 Hours) Vital Signs Temp Pulse Pulse Resp BP BP Pulse Ox 04/21/23 07:06 71 04/21/23 06:25 73 16 135/76 99 04/21/23 02:06 71 12 132/94 95 04/21/23 01:39 04/21/23 01:38 04/21/23 01:12 04/21/23 01:12 67 16 127/81 93 04/21/23 00:56 68 04/21/23 00:56 64 16 127/81 92 04/20/23 22:56 66 18 139/65 95 04/20/23 20:48 36.6 C 74 18 135/79 97 Pulse Ox O2 Del Method O2 Del Method O2 Flow Rate O2 Flow Rate 04/21/23 07:06 04/21/23 06:25 Oxymask 2 04/21/23 02:06 Nasal Cannula 2 04/21/23 01:39 93 Nasal Cannula 2 04/21/23 01:38 86 L Room Air 0 04/21/23 01:12 93 Room Air 0 04/21/23 01:12 Room Air 04/21/23 00:56 04/21/23 00:56 Room Air 04/20/23 22:56 Room Air 04/20/23 20:48 Room Air (5) Hypertension Hypertension type: primary hypertension Qualified Code(s): I10 - Essential (primary) hypertension (7) Hypothyroidism Hypothyroidism type: unspecified Qualified Code(s): E03.9 - Hypothyroidism, unspecified
--- NOTE | 2023-04-21 07:56 | XRay Report ---
XR chest 1V portable HISTORY: severe abd pain, recent EGD COMPARISON: Chest 07/19/2022. FINDINGS: No pneumothorax. No pleural effusions. The cardiac silhouette remains top normal in size. N o focal lung consolidations to suggest a pneumonia. No evidence for pulmonary edema. There are surgic al clips within the epigastric region. There is chronic elevation of the right hemidiaphragm. Right b asilar linear densities favor subsegmental atelectasis. IMPRESSION: No acute process. ACT 112: Negative or not required by law. Electronically signed by: Ivan Veronica M.D. 04/21/2023 7:54 AM
--- OUTSIDE RECORDS SUMMARY | 2023-04-21 07:58 | External Medical Summary | Continuity of Care Document ---
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 oral tablet), 125 mcg= 1 tab, PO, Daily magnesium gluconate(magnesium gluconate 500 mg oral tablet), 500 mg= 1 tab, PO, Daily mometasone topical(mometasone 0.1% topical cream), See Instructions, 1 refills multivitamin(One-A-Day 50+ oral tablet), 1 tab, PO, Daily nystatin topical(nystatin 100,000 units/g topical powder), See Instructions, 1 refills omeprazole(omeprazole 40 mg oral delayed release capsule), 40 mg= 1 cap, PO, Daily, 1 refills ondansetron(Zofran ODT 4 mg oral tablet, disintegrating), 4 mg= 1 tab, PO, tid, PRN oxyCODONE(oxyCODONE 5 mg oral tablet), 5 mg= 1 tab, PO, q6h, PRN potassium chloride(Potassium Chloride (Ycy-Yjew-Ooc M20) 20 mEq oral tablet, extended release), 20 mEq= 1 tab, PO, bid, 4 refills predniSONE(predniSONE 5 mg oral tablet) sertraline(sertraline 100 mg oral tablet), 100 mg= 1 tab, PO, qhs, 4 refills sulfamethoxazole-trimethoprim(Bactrim DS 800 mg-160 mg oral tablet), 1 tab, PO, bid tacrolimus topical(tacrolimus 0.1% topical ointment), See Instructions terconazole topical(Terazol 3 vaginal cream), 1 appl, vaginal, qhs, 1 refills tirzepatide(Mounjaro 5 mg/0.5 mL subcutaneous solution) traMADol(traMADol 50 mg oral tablet), 50 mg= 1 tab, PO, q4h, PRN unlisted medication(Novlog R) valACYclovir(Valtrex 1 g oral tablet) Allergies Bee stings(Severe)Anaphylaxis, anaphylaxis Influenza Virus Vaccine(Severe)Angioedema flu vaccines tetracyclinesevere belly aches, HARLEY tetracyclinesUnknown Social History Smoking Status Never smoked cigarettes Alcohol - Denies Alcohol Use 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 Cardiovascular disease: Mother and Father. Colon cancer..: Father. Diabetes: Mother and Father. Diabetes mellitus type 1: Son. Diverticulitis: Mother. Heart Failure: Mother and Father. Heart attack: Mother and Father. Heart disease: Mother and Father. High Blood Pressure: Mother and Father. Hypothyroidism.: Mother and Father. Liver disease: Mother. Lupus..: Brother. Myocardial infarction: Mother and Father. Osteoarthritis: Sister. Rheumatoid arteritis: Sister. Health Status Family Member(s) Immunizations Vaccine Date Status pneumococcal 20-valent conjugate vaccine 03/14/2022 Recorded SARS-CoV-2 mRNA (Pfizer 12+) bivalent 03/14/2022 Recorded tetanus/diphtheria/pertuss, acel (Tdap) 01/24/2022 Recorded Comments : 2022-02-25: Historical information-source unspecified SARS-CoV-2 (COVID-19) mRNA BNT-162b2 vax 06/18/2021 Recorded Comments : 2022-02-25: Historical information-source unspecified SARS-CoV-2 (COVID-19) mRNA BNT-162b2 vax 01/08/2021 Recorded Comments : 2022-02-25: Historical information-source unspecified hepatitis B adult vaccine 12/26/2020 Recorded Comments : 2021-05-14: Historical information-source unspecified hepatitis A adult vaccine 12/26/2020 Recorded Comments : 2021-05-14: Historical information-source unspecified SARS-CoV-2 (COVID-19) mRNA BNT-162b2 vax 12/18/2020 Given Comments : Early/Late Reason: Other : Order placed prior to appt. hepatitis B adult vaccine 09/12/2019 Recorded Comments : 2021-05-14: Historical information-source unspecified hepatitis A adult vaccine 09/12/2019 Recorded Comments : 2021-05-14: Historical information-source unspecified zoster vaccine, inactivated 04/27/2019 Recorded hepatitis B adult vaccine 04/17/2019 Recorded Comments : 2021-05-14: Historical information-source unspecified hepatitis A pediatric vaccine 03/13/2019 Recorded hepatitis B adult vaccine 03/13/2019 Recorded Comments : 2021-05-14: Historical information-source unspecified zoster vaccine, inactivated 01/03/2019 Recorded zoster vaccine live 06/28/2013 Recorded Recommendations Health Maintenance Pending(in the next year) OverDue Adult Influenza Vaccine due09/11/22and every 1year Diabetic Eye Exam due11/16/22and every 731day Due Adult COVID-19 Vaccination due04/09/23Unknown Frequency Adult Social Determinants of Health Screening due04/09/23Unknown Frequency Falls Plan of Care due04/09/23Unknown Frequency Medicare Annual Wellness Visit due04/09/23and every 1year Osteoporosis Screening due04/09/23One-time only Due In Future Diabetes Management A1c not due until04/25/23and every 366day Satisfied(in the past 1 year) Satisfied Body Mass Index on03/10/23.Satisfied by KAYLA Bruce Erin Breast Cancer Screening on09/04/22.Satisfied by KAYLA Suacedo Lori Colorectal Cancer Screening on02/14/23.Satisfied by Contributor_system, [email or web address] Diabetes Management A1c on04/24/22.Satisfied by Contributor_system, [email or web address] Diabetes Nephropathy Management on12/14/22.Satisfied by Contributor_system, [email or web address] Electronic Signature on File CC: Carmen Lloyd, DO [address] [place] [id number] Electronically Reviewed/Signed by: NAHEED Moreno Author Signature Dt/Tm:04/09/2023 02:24 PM Department of Family Medicine [facility] Patient Care team information Care Team Personnel Name: MD Bart, Keturah Walker Position: Physician Member Role: Primary Care Provider Address: Address: [address] [place] [address] Care Team Related Persons Name: VITOR REED Address: home [address] [place] [address] PRICILA VANG [phone] Name: KUSHAL WYNN
--- OUTSIDE RECORDS SUMMARY | 2023-04-21 07:58 | External Medical Summary | Continuity of Care Document ---
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) use of unspecified immunomodulators and immunosuppressants (Final) - Immunodeficiency, unspecified(Final) - Disorders of magnesium metabolism, unspecified(Final) - Discharge Disposition: Home or Self Care Attending Physician: MD Bailey Abhinav Referring Physician: MD Bailey Abhinav Allergies, Adverse Reactions, Alerts Substance Reaction Severity Status tetracycline severe belly aches HARLEY Active tetracyclines Unknown Active flu vaccines Active Bee stings Anaphylaxis anaphylaxis Severe Active Influenza Virus Vaccine Angioedema Severe Acti ve Immunizations Given and Recorded Vaccine Date Status [...] bid, Disp# 20 tab, Refills: 0, Pharmacy: [facility]/pharmacy #[id number] Start Date: 04/13/22 Stop Date: 04/23/22 Status: [...] ongoing tinea cruris to affected area, Pharmacy: [facility]/pharmacy #[id number] Start Date: 12/09/21 Status: Ordered levothyroxine [...] as needed. apply a thin film, Pharmacy: [facility]/pharmacy #[id number] Start Date: 03/04/22 Status: Ordered Mounjaro [...] apply topically TID for fungal rash, Pharmacy: [facility]/pharmacy #[id number] Start Date: 12/27/21 Status: Ordered omeprazole 40 mg oral delayed release capsule Start: 02/25/22 15:08:00 EST, 1 cap, PO, Daily, Disp# 90 cap, Refills: 1, Pharmacy: [facility]/pharmacy #[id number] Start Date: 02/25/22 Stop Date: 08/24/22 Status: Ordered One-A-Day 50+ oral tablet Start: 11/07/20 15:09:00 EDT, 1 tab, PO, Daily Start Date: 11/07/20 Status: Ordered oxyCODONE 5 mg oral tablet Start: 04/09/23 13:56:00 EST, 1 tab, PO, q6h, Disp# 8 tab, Refills: 0, PRN: as needed for pain, [id number] Start Date: 04/09/23 Stop Date: 04/11/23 Status: Ordered Potassium Chloride (Hjx-Dhdq-Emf M20) 20 mEq oral tablet, extended release Start: 12/30/22 12:06:00 EDT, 1 tab, PO, bid, Disp# 180 tab, Refills: 4, Pharmacy: [facility]/pharmacy #[id number] Start Date: 12/30/22 Status: Ordered predniSONE 5 mg oral tablet TAKE 2 TABLETS BY MOUTH EVERY MORNING Start Date: 02/09/23 Status: Ordered sertraline 100 mg oral tablet Start: 10/15/22 8:35:00 EDT, 1 tab, PO, qhs, Disp# 30 tab, Refills: 4, Pharmacy: [facility] #[id number] Start Date: 10/15/22 Stop Date: 03/14/23 Status: Ordered tacrolimus 0.1% topical ointment Start: 06/10/22 15:45:00 EDT, See Instructions, Disp# 60 g, Refills: 0, APPLY TOPICALLY TO INFLAMEDEYELID AREAS TWICE A DAY NEEDED, Pharmacy: [facility] #[id number] Start Date: 06/10/22 Status: Ordered Terazol 3 vaginal cream Start: 03/11/22 8:30:00 EST, 1 appl, vaginal, qhs, Disp# 20 g, Refills: 1, Use for three nights, then stop. While using intravaginally, apply toppically to perineum at night, Pharmacy: [facility]/pharmacy #[id number] Start Date: 03/11/22 Status: Ordered traMADol 50 mg oral tablet Start: 06/29/22 16:20:00 EDT, 1 tab, PO, q4h, Disp# 30 tab, Refills: 0, PRN: as needed for pain, Pharmacy: [facility] #[id number] Start Date: 06/29/22 Status: Ordered Trulicity [...] tongue, PRN: as needed for nausea/vomiting, Pharmacy: [facility]/pharmacy #[id number] Start Date: 06/29/22 Stop Date: 07/29/22 Status: Ordered Problem List Condition Confirmation Course Effective Dates [...] fatigability Confirmed Active Weight disorder Confirmed Active 45318, 2005 Procedures Procedure Date Related Diagnosis Body Site [...] Normal examine duodenum 5) No specimens collected. 11[facility] admit for LLQ pain, diarrhea, melena. CT showed cirrhosis with portal HTN, diverticulosis, DC and sigmoid thickening. EGD showed grade 1 varcies and portal gastropathy. She was placed on IV abx Zosyn and sent home on augmentin for 10 day total therapy. Pt requesting [facility] eval for liver. 12US of abdomen complete [...] joint repair Results Laboratory List Name Date Complete Blood Count w Differential (CBC ,DIFFH) 04/07/23 Comprehensive Metabolic Panel (COMP META B PANEL) 04/07/23 Gamma Glutamyl Transferase (GGTP) 4 Magnesium Level (MAGNESIUM) 04/07/23 Phosphorus Level (PHOSPHORUS) 04/07/23 Prothrombin Time w/ INR (PROTIME WITH IN R) 04/07/23 Request to FAX Report (First Location) ( ACC NO TO BE FAXED) 04/07/23 Request to FAX Report (Second Location) (2ND FAX REQUEST) 04/07/23 Most recent to oldest [Reference Range]: 1 eGFR CKD-EPI [>60 mL/min/1.73 m2] 64 mL/ min/1.73 m2 1 (04/07/23 11:59 AM) Hypochromia MODERATE *Unknown* (04/07/23 11:59 AM) Microcytes MODERATE *Unknown* (04/07/23 11:59 AM) Ovalocytes FEW *Unknown* (04/07/23 11:59 AM) Schistocytes FEW *Unknown* (04/07/23 11:59 AM) Platelet Morphology NORMAL 2 *Unknown* (04/07/23 11:59 AM) Estimated CrCl 49.95 mL/min (04/07/23 12:30 PM) Phone No [phone] (04/07/23 11:59 AM) Phone No [phone] (04/07/23 11:59 AM) MPV [9.0-12.2 fL] 8.0 fL 5 *LOW* (04/07/23 11:59 AM) Immature Gran% 0.0 % (04/07/23 11:59 AM) Neut% 58.0 % (04/07/23 11:59 AM) Lymph% 30.0 % (04/07/23 11:59 AM) Trigg% 8.0 % (04/07/23 11:59 AM) Baso% 0.0 % (04/07/23 11:59 AM) Eos% 4.0 % (04/07/23 11:59 AM) Immat Gran, Abs [0-0.4 K/uL] 0.00 K/uL (04/07/23 11:59 AM) Neut, Abs [2.0-7.7 K/uL] 1.90 K/uL *LOW* (04/07/23 11:59 AM) Lymph, Abs [1.0-3.4 K/uL] 0.98 K/uL *LOW* (04/07/23 11:59 AM) Trigg, Abs [0-1.0 K/uL] 0.26 K/uL (04/07/23 11:59 AM) Baso, Abs [0-0.1 K/uL] 0.00 K/uL (04/07/23 11:59 AM) Eos, Abs [0-0.5 K/uL] 0.13 K/uL (04/07/23 11:59 AM) Type of Diff: MANUAL *Unknown* (04/07/23 11:59 AM) RDW [11.5-14.2 %] 19.0 % *HI* (04/07/23 11:59 AM) Anion Gap [5-14 mmol/L] 7 mmol/L (04/07/23 11:59 AM) Alb [3.5-5.0 g/dL] 4.2 g/dL (04/07/23 11:59 AM) Alk Phos [38-126 unit/L] 118 unit/L (04/07/23 11:59 AM) ALT [<35 unit/L] 58 unit/L *HI* (04/07/23 11:59 AM) AST [15-46 unit/L] 44 unit/L (04/07/23 11:59 AM) BUN [7-20 mg/dL] 15 mg/dL (04/07/23 11:59 AM) Ca [8.4-10.2 mg/dL] 9.9 mg/dL (04/07/23 11:59 AM) Cl- [96-107 mmol/L] 108 mmol/L *HI* (04/07/23 11:59 AM) HCO3 [22-30 mmol/L] 26 mmol/L (04/07/23 11:59 AM) Cret [0.60-1.00 mg/dL] 0.96 mg/dL (04/07/23 11:59 AM) Glu [74-106 mg/dL] 99 mg/dL (04/07/23 11:59 AM) GGT [3-40 unit/L] 24 unit/L (04/07/23 11:59 AM) Hct [35-44 %] 32.0 % *LOW* (04/07/23 11:59 AM) Hgb [11.7-15.0 g/dL] 8.9 g/dL *LOW* (04/07/23 11:59 AM) INR [0.9-1.1] 1.0 6 (04/07/23 11:59 AM) K [3.5-5.1 mmol/L] 3.8 mmol/L (04/07/23 11:59 AM) MCH [28-33 pg] 17.5 pg *LOW* (04/07/23 11:59 AM) MCHC [32-36 g/dL] 27.8 g/dL *LOW* (04/07/23 11:59 AM) MCV [81-96 fL] 62.7 fL *LOW* (04/07/23 11:59 AM) Mg [1.6-2.3 mg/dL] 1.7 mg/dL 7 (04/07/23 11:59 AM) Na [137-145 mmol/L] 141 mmol/L (04/07/23 11:59 AM) PO4 [2.5-4.5 mg/dL] 4.1 mg/dL 8 (04/07/23 11:59 AM) Plts [150-350 K/uL] 214 K/uL (04/07/23 11:59 AM) PT [12.0-14.2 seconds] 12.7 seconds (04/07/23 11:59 AM) RBC [3.90-5.00 M/uL] 5.10 M/uL *HI* (04/07/23 11:59 AM) T Bili [0.2-1.3 mg/dL] 0.4 mg/dL (04/07/23 11:59 AM) Prot [6.3-8.2 g/dL] 7.0 g/dL (04/07/23 11:59 AM) WBC [4.0-10.4 K/uL] 3.27 K/uL *LOW* (04/07/23 11:59 AM) 1Result Comment: Testing Performed By: Dept of Pathology [facility] [address], [address], [place] [address] 2Result Comment: Testing Performed By: Dept of Pathology [facility] [address], [address], [place] [address] 3Result Comment: Testing Performed By: Dept of Pathology [facility] [address], [address], [place] [address] 4Result Comment: Testing Performed By: Dept of Pathology [facility] [address] [place], [address], [place] [address] 5Result Comment: Testing Performed By: Dept of Pathology [facility] [address], [address], [place] [address] 6Result Comment: Suggested therapeutic range for low-intensity Coumadin therapy for venous thromboembolism is INR 2.0-3.0 (ex: atrial fibrillation, history of TIA/stroke). For high risk patients, the suggested therapeutic range is INR 2.5-3.5 (ex: mechanical prosthetic valves). Testing Performed By: Dept of Pathology [facility] [address], [address], [place] [address] 7Result Comment: Testing Performed By: Dept of Pathology [facility] [address], [address], [place] [address] 8Result Comment: Testing Performed By: Dept of Pathology [facility] [address], [address], [place] [address] Social History Social History Type Response Tobacco Former smoker, Start ed age 14 Years. Stopped age 38 Years. 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
[2023-04-21 08:27] LABS: Estimated Average Glucose 134 mg/dl; Hemoglobin A1C 6.3 % (4.5-5.6)
[2023-04-21] MEDS: amLODIPine BESYLATE 5 MG TAB PO SCH (08:40)
[2023-04-21] MEDS: ASPIRIN 81 MG ECTAB PO SCH (08:41)
[2023-04-21] MEDS: SULFAMETHOXAZOLE/TRIMETHOPRIM DS 800/160MG TAB PO SCH (08:42)
[2023-04-21] MEDS: GABAPENTIN 300 MG CAP PO SCH (08:42)
--- NOTE | 2023-04-21 08:57 | Gastrointestinal Consultation ---
Date of Consultation April 21, 2023 Assessment & Plan (1) History of biliary duct stent placement: (2) Liver transplant recipient: (3) Abdominal pain, acute: Plan I had reviewed this case with Dr. Garcia who also saw the patient and advised on plan. We had also discussed this case with Dr. Bloom of the [facility] GI biliary team. - agree with continuation of IV antibiotics. - continue with pain control. - would recommend that the patient be transferred to her GI/Liver transplant team in [place]. Supervising Physician Co-Signing Physician Notes I saw the patient and agree with the findings as documented by DOMENIC Snow History of Present Illness Reason for Consultation: Biliary Stent removal Requesting Physician: Kamini Valdivia Do Attending Physician: Lacie Lara MD History of Present Illness Patient is a 67 year old female with a past medical history including liver transplant in September 2022, vitamin D deficiency, history of GI bleeding, primary hyperparathyroidism, liver 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, hyperlipidemia, hypertension, diabetes mellitus type 2, and hypothyroidism. Patient underwent liver transplant in September 2022, and had undergone scheduled removal of common bile duct stent at [facility] on 04/19/23. The physicians were unsuccessful in removing the stent and the patient was discharged to home. It was planned for a conference to determine next step for removal of the stent. After her procedure when she had arrived back at home, she developed severe RUQ pain that radiated into her shoulder and flank. She had contacted her transplant team who advised ED evaluation. she presented to the ED here at [facility] for assessment, with imaging noting the presence of the stent and mild common bile duct dilatation. ED had discussed with the transplant center in [place] and it was planned to have the patient admitted to the hospitalist medical service at [facility], started on IV vancomycin and IV Zosyn, and coordinate follow-up care with the [facility] at a later date. Patient tells me that since admission she is still having 8/10 RUQ pain. Less severe than prior to admission but she tells me it is still significant. pain medications are helping to relieve this. she tells me she did have some slight fever in the 99 range prior to admission. she denies nausea, vomiting, heartburn, changes in bowels, melena, or brbpr. Allergies Allergy/AdvReac Type Severity Reaction Status Date / Time bee venom protein (honey bee) Allergy Severe Anaphylaxis Verified 04/21/23 01:22 Influenza Virus Vaccines Allergy Severe Anaphylaxis Verified 04/21/23 01:22 tetracycline AdvReac Severe Severe Verified 04/21/23 01:22 stomach pains Home Medications Medication Instructions Recorded Confirmed Type pen needle, diabetic 32 gauge x #300 ea 06/12/22 02/02/23 Rx 5/32" (BD Ultra-Fine Lani Pen Needle) blood-glucose sensor (FreeStyle #2 ea 09/11/22 02/02/23 Rx Lisy 3 Sensor device) biotin 1 mg capsule 1 mg PO AMPM 02/02/23 04/21/23 History gabapentin 300 mg capsule 300 mg PO AMPM 02/02/23 04/21/23 History sertraline 100 mg tablet 100 mg PO QPM 02/02/23 04/21/23 History sulfamethoxazole 800 1 tab PO 3XWK 02/02/23 04/21/23 History mg-trimethoprim 160 mg tablet amlodipine 10 mg tablet 10 mg PO QAM 04/21/23 04/21/23 History everolimus (antineoplastic) 5 mg 15 mg PO Q12H 04/21/23 04/21/23 History tablet levothyroxine 125 mcg tablet 125 mcg PO DAILYBB 04/21/23 04/21/23 History oxycodone 5 mg tablet 5 mg PO Q6H PRN Pain 04/21/23 04/21/23 History pantoprazole 40 mg tablet,delayed 40 mg PO QAM 04/21/23 04/21/23 History release prednisone 5 mg tablet 5 mg PO QAM 04/21/23 04/21/23 History tirzepatide 5 mg/0.5 mL 5 mg subcut WK 04/21/23 04/21/23 History subcutaneous pen injector (Mounjaro) tramadol 50 mg tablet 50 mg PO Q6H PRN Pain 04/21/23 04/21/23 History Patient History Medical History Sinusitis Encephalopathy, hepatic Left wrist sprain Benign essential tremor Generalized weakness LISA (acute kidney injury) Moeller esophagus Portal hypertension Neutropenic typhlitis Pancytopenia Hyperammonemia Hepatic encephalopathy Abdominal pain Hypothyroidism Liver disease Weakness Hyperbilirubinemia REBOLLAR (nonalcoholic steatohepatitis) History of colon polyps BENIGN Depression UTI (urinary tract infection) HX, JULY 2021 -HOSPITALIZED FOR , NOW RESOLVED DURING TESTING FOUND 2 LUMPS IN INTESTINES...REASON FOR UPCOMING COLONOSCOPY History of fractured vertebra CURRENT, HX FALL JULY 2021 - FELL OF THE TOILET - NO INTERVENTION AT PRESENT/ [facility] FOR TO DISCUSS TX OPTIONS - POTENTIAL BACK BRACE Urge incontinence 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 Abnormal finding on breast imaging Urinary tract infection Fracture of fourth lumbar vertebra Chronic diarrhea SOMETIMES - when takes lactulose Primary hyperparathyroidism Benign paroxysmal positional vertigo of left ear Sensorineural hearing loss (SNHL) of both ears asymmetrical, left WRS Seasonal allergies Thrombocytopenia Syncope Epistaxis Arthritis History of kidney stones GERD (gastroesophageal reflux disease) Anemia HX Temporomandibular joint disorder NO LOCKING/WEARS LIVESTOCK SPECULATOR Anxiety and depression Diabetes mellitus, type 2 GI bleed RECENT HOSPITALIZED - PT DENIES HX GI BLEED Colitis with rectal bleeding Spleen enlarged MONITORS - PT REPORTS FROM THE [place] 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 Hiatal hernia Stucco keratoses Heel spur B/L feet Moeller's esophagus with esophagitis Hypertension Hyperlipidemia Surgical History H/O thumb surgery RT/LEFT JOINT REPAIR History of cystoscopy History of appendectomy History of tooth extraction History of tonsillectomy and adenoidectomy H/O total hysterectomy History of arthroscopy of knee Left Knee - meniscus/cartilage History of esophagogastroduodenoscopy (EGD) History of colonoscopy Hx of cholecystectomy Family History Brother Coronary heart disease Heart disease Mother Family history of diabetes mellitus Hypertension Heart disease Sister Family history of diabetes mellitus Son Family history of diabetes mellitus Father Family hx of colon cancer Hearing loss Hypertension Cancer Heart disease Grandfather (Maternal) Family hx of colon cancer Other No family history of adverse response to anesthesia No family history of bleeding disorder Social History Smoking Status: Never smoker Second Hand Exposure: No; Do You Dip or Chew Tobacco: No; Hx Alcohol Use: No Hx Substance Use: No Preferred Language: Croatian Communication Ability: Effective 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 Required: No Beliefs That Will Affect Care: None marital status: Current Living Situation: Spouse Current Living Situation Comment: lives in ranch style home with current occupational status: employed and retired How many Children do You have: 0 Feels Safe at Home: Yes Assistive Devices: Walker and Wheelchair Review of Systems Review of Systems: All systems reviewed & are unremarkable except as noted in HPI & below Physical Exam Constitutional: WD/WN, vitals as above Respiratory: normal respiratory effort, lungs clear to auscultation Cardiovascular: RRR, no murmur, no edema Gastrointestinal (Abdomen): moderate RUQ tenderness to palpation, no guarding, soft, normal bowel sounds. surgical scar from transplant noted in RUQ. Skin: no rashes, warm and dry Psychiatric: Orientation: alert and oriented x 3 Results & Data Vital Signs (Past 12 Hours) Vital Signs Pulse Pulse Resp BP Pulse Ox Pulse Ox O2 Del Method 04/21/23 07:06 71 04/21/23 06:25 73 16 135/76 99 Oxymask 04/21/23 02:06 71 12 132/94 95 Nasal Cannula 04/21/23 01:39 93 04/21/23 01:38 86 L 04/21/23 01:12 93 04/21/23 01:12 67 16 127/81 93 Room Air 04/21/23 00:56 68 04/21/23 00:56 64 16 127/81 92 Room Air 04/20/23 22:56 66 18 139/65 95 Room Air O2 Del Method O2 Flow Rate O2 Flow Rate 04/21/23 07:06 04/21/23 06:25 2 04/21/23 02:06 2 04/21/23 01:39 Nasal Cannula 2 04/21/23 01:38 Room Air 0 04/21/23 01:12 Room Air 0 04/21/23 01:12 04/21/23 00:56 04/21/23 00:56 04/20/23 22:56 PG Care Time/CCT Total # of Minutes Spent Total Time Spent with Patient: Total time spent is greater than 50% in coordination of care (as documented) at patient's floor/unit and/or counseling patient: Coding Level of Care Code 86987 IN/OBS CONSULT LVL 2,35M Diagnoses History of biliary duct stent placement Z98.890 Liver transplant recipient Z94.4 Abdominal pain, acute R10.9 Time Spent (min) 42
[2023-04-21] MEDS ORDERED: NON-FORMULARY MEDICATION (Biotin 1 mg capsule) PO SCH (09:00)
[2023-04-21] MEDS: predniSONE 5 MG TAB PO SCH (09:28)
[2023-04-21] MEDS: INSULIN ASPART PER UNIT CHARGE SC SCH (09:31)
[2023-04-21] MEDS: VANCOMYCIN HCL 750 MG in SODIUM CHLORIDE 0.9% 250 ML IV SCH (10:42)
--- NOTE | 2023-04-21 10:43 | Pharmacy Report ---
Pharmacy PK ABX Note - Date of Service April 21, 2023 - Assessment and Plan Assessment * 67 year old F receiving VANCOMYCIN + ZOSYN for treatment of suspected intra- abdominal infxn, fever, chills, abd pain, h/o liver transplant and biliary stenting. * Pertinent microbiologic data includes: Negative resp BioFire; BLCX's pending * Day # 1 of antimicrobial therapy. Plan Vancomycin * Loading dose: 1500 mg IV x 1 * Maintenance dose: 750 mg IV every 12 hours * Regimen is predicted to achieve target AUC/MAYRA of 400-600 mg/L.hr * Level ordered for: 04/22/23 AM prior to 3rd maint dose Pharmacy will continue to follow and will adjust dose/frequency as necessary. Thank you. Pharmacy has transitioned to AUC monitoring for vancomycin. AUC/MAYRA is the preferred PK/PD target and is associated with decreased risk of nephrotoxicity compared to traditional trough targets.
[2023-04-21] MEDS: HYDROmorphone INJ 0.5 MG/0.5 ML SYR IV STA ×2 (10:46→17:35)
[2023-04-21] MEDS: PANTOprazole 40 MG in SYRINGE 0 ML IV SCH (10:57)
[2023-04-21 14:27] LABS: Hematocrit (blood only) 26.8 % (37.0-47.0); Hemoglobin 7.2 g/dl (12.0-16.0); Mean Corpuscular Hemoglobin 17.1 pg (25.0-34.0); Mean Corpuscular Hgb Conc 26.9 g/dL (32.0-36.0); Mean Corpuscular Volume 63.7 fL (80.0-100.0); Mean Platelet Volume 8.7 fL (9.4-12.4); Platelet Count 228 K/uL (130-400); RDW Coefficient of Variation 18.7 % (11.5-14.5); RDW Standard Deviation 41.7 fL (36.4-46.3); Red Blood Count 4.21 M/uL (4.20-5.40); White Blood Count 5.07 K/ul (4.8-10.8)
[2023-04-21 16:35] VITALS: BP 147/79; PULSE 70; TEMP 98.2; O2SAT 95
--- NOTE | 2023-04-21 17:23 | Discharge Summary ---
Date of Service April 21, 2023 Admission HPI Per Admitting Provider The patient is a 67-year-old female with a past medical history including liver transplant, vitamin D deficiency, history of GI bleeding, primary hyperparathyroidism, liver 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, hyperlipidemia, hypertension, diabetes mellitus type 2, and hypothyroidism. Patient underwent liver transplant at the end of 2022, and had undergone scheduled removal of common bile duct stent at [facility] yesterday morning. The physicians were unsuccessful in removing the stent, the patient was discharged to home, with plans for a conference to determine next step for removal of the stent. In the interim, last evening, she developed the symptoms as noted above. She presented to the emergency department at [facility] for assessment, with imaging noted presence of the stent and mild common bile duct dilatation, and after conversation with the transplant center in [place], plan was to have the patient admitted to the hospitalist medical service at [facility], on IV vancomycin and IV Zosyn, and coordinate follow-up care with the [facility] at a later date. Principal Diagnosis Biliary Stent Discharge Exam Constitutional: well-appearing, no acute distress HEENT: NCAT, no conjunctival injection CV: regular rhythm, no murmur appreciated, extremities well-perfused, no LE edema Resp: CTABL, no wheezes/rales/rhonchi appreciated, no increased work of breathing GI: soft, nondistended, mild right sided tenderness, BS normoactive MSK: no gross deformities appreciated Skin: warm, dry, no rash appreciated Neuro: alert, oriented, no focal neurologic deficit appreciated Discharge Data Allergies Allergy/AdvReac Type Severity Reaction Status Date / Time bee venom protein (honey bee) Allergy Severe Anaphylaxis Verified 04/21/23 01:22 Influenza Virus Vaccines Allergy Severe Anaphylaxis Verified 04/21/23 01:22 tetracycline AdvReac Severe Severe Verified 04/21/23 01:22 stomach pains Consultations 04/21/23 00:09 ED Decision to Admit Stat 04/21/23 07:29 Consult Gastroenterology Routine Ordered Studies 04/20/23 22:11 CT Abd and Pelvis [CT abd pelvis IV con only] Stat Hospital Course (1) History of biliary duct stent placement: Acute abdominal pain/liver transplant recipient/unsuccessful attempted biliary stent removal- Normal WBC and normal chemistry profile CT scan abdomen pelvis with dilated, bile duct and stent presents Was started on vancomycin IV and Zosyn IV; plan to continue Zofran 4 mg IV every 6 hours as needed Pantoprazole 40 mg IV daily Morphine sulfate 4 mg IV every 3 hours as needed for moderate to severe pain Full liquid diet as tolerated Continue everolimus, which patient will bring from home, and prednisone Plan to transfer to [facility] (2) Liver transplant recipient: as per above (3) Dilated bile duct: as per above (4) Anxiety: continue gabapentin, sertraline (5) Chronic anemia: microcytic anemia baseline hemoglobin around 8, 7.2 this afternoon prior to transfer no signs of active bleeding and hemodynamically stable continue to trend (6) Hypertension: continue amlodipine (7) Diabetes mellitus type 2 with complications: Hold tirzepatide subcu weekly Placed on Accu-Cheks with NovoLog SSI (8) Hypothyroidism: continue levothyroxine Total Time Total Time Spent Total Time Spent (In Minutes): see attending attestation Discharge Plan Discharge Items Patient Disposition: Transfer Acute Care Hospital Reason For Visit: ABDOM. SURGERY POST EGD/ATTEMPTED CBD STENT REMOVA Discharge Diagnosis: Biliary Stent, Concern for infection Condition on Discharge: Good Activity: Per Instructions section Non-emergency contact: Primary Care Provider Call non-emergency contact if: you have any medication questions Follow-up/Referrals: Lakisha Arriaga MD [Primary Care Provider] - Diet: Regular Addtl Attending Provider Instructions: Abdominal pain in the setting of liver transplant and biliary duct stent Acute abdominal pain/liver transplant recipient/unsuccessful attempted biliary stent removal- Normal WBC and normal chemistry profile CT scan abdomen pelvis with dilated, bile duct and stent presents Was started on vancomycin IV and Zosyn IV; plan to continue Zofran 4 mg IV every 6 hours as needed Pantoprazole 40 mg IV daily Morphine sulfate 4 mg IV every 3 hours as needed for moderate to severe pain Full liquid diet as tolerated Continue everolimus, which patient will bring from home, and prednisone Microcytic Anemia - Hbg on admission= 8.2, done to 7.2 2/7 in the afternoon - baseline hemoglobin appears to be 8 - hemodynamically stable without signs of acute bleeding - continue to trend CBC Hypertension: continue home amlodipine Diabetes mellitus type 2 with complications: Hold tirzepatide subcu weekly Placed on Accu-Cheks with NovoLog SSI Hypothyroidism continue levothyroxine Pending Studies at Discharge: No Stand-Alone Forms: My [facility] Skilled Items Patient informed of condition?: Yes DNR: No Discharge Level of Care: Other Communicable Disease: No Discharge Prognosis: Stable Lines: Peripheral IV Urinary Catheter: No Medications and DC Order Prescriptions: Continued (DME) pen needle, diabetic [BD Ultra-Fine Lani Pen Needle] 32 gauge x 5/32" needle See Rx Instructions .Route Qty: 300 3RF Rx Instructions: Use 3 per day with insulin injection (DME) FreeStyle Lisy 3 Sensor Device See Rx Instructions .Route Qty: 2 11RF Rx Instructions: Change every 14 days sulfamethoxazole-trimethoprim 800-160 mg tablet 1 tab PO 3XWK Rx Instructions: take this med every Wednesday/Wednesday/Wednesday. gabapentin 300 mg capsule 300 mg PO AMPM biotin 1 mg capsule 1 mg PO AMPM sertraline 100 mg tablet 100 mg PO QPM levothyroxine 125 mcg tablet 125 mcg PO DAILYBB Rx Instructions: Take ONE tablet by mouth first thing in the morning on an empty stomach 30 min prior to any other oral intake. pantoprazole 40 mg tablet,delayed release (DR/EC) 40 mg PO QAM prednisone 5 mg tablet 5 mg PO QAM everolimus (antineoplastic) 5 mg Tablet 15 mg PO Q12H amlodipine 10 mg Tablet 10 mg PO QAM Held Mounjaro 5 mg/0.5 mL pen injector 5 mg SUBCUT WK Hold Instructions: OP DM2 regimen Rx Instructions: take this med every Wednesday tramadol 50 mg Tablet 50 mg PO Q6H PRN (Reason: Pain) Hold Instructions: OP pain regimen oxycodone 5 mg tablet 5 mg PO Q6H PRN (Reason: Pain) Hold Instructions: OP pain regimen Discharge Orders: Discharge Order (Routine); Ordered 04/21/23 Ordered By: Leana Correa/Other Patient Handouts: Managing Type 2 Diabetes Admission Data Admit Date/Time: 04/21/23 00:45 Attending Provider: Lacie Lara Admit Provider: Bernardo Vences Primary Care Provider: Lakisha Arriaga Other Providers: Bernardo Vences; Oneil Garcia Supervising Physician Co-Signing Physician Notes Attending Physician Supervision Note: I independently interviewed and examined the patient and verified the mcnamara history and physical, reviewed labs and image studies and agree with findings and care plan noted above. 67 y/o with h/o liver transplant ([facility]) presented with intractable acute abdominal pain from biliary stent with recent unsuccessful attempt to remove the stent. In the ED noted to have - Normal WBC and normal chemistry profile; CT scan abdomen pelvis with dilated, bile duct and stent presents Was started on vancomycin IV and Zosyn IV and kept on Zofran 4 mg IV every 6 hours as needed, Pantoprazole 40 mg IV daily, Morphine sulfate 4 mg IV every 3 hours as needed for moderate to severe pain Given Full liquid diet as tolerated Continued everolimus, which was brought from home, and prednisone [facility] contacted - Transfer accepted. Resident Activity Tracking Resident Involvement: Resident Care Provided Care Provided: Adult Hospital Medicine
[2023-04-21] MEDS: ONDANSETRON INJ 2 MG/ML 2 ML VIAL IV PRN (19:43)
[2023-04-21] MEDS ORDERED: EVEROLIMUS 0.5 MG PO SCH (21:00)
[2023-04-21] MEDS ORDERED: SERTRALINE HCL 100 MG TABLET PO SCH (21:00)
== END 2023-04-21 20:06 | disposition short-term general hospital (02) | DRG 920 ==
LOC: ED 20:42 → EDINP 04-21 00:45 → SUATTDRO 04-21 00:45 → 2N 04-21 01:13
DX: E03.9 Hypothyroidism, unspecified; Z79.890 Hormone replacement therapy; Y73.2 Prosthetic and other implants, materials and accessory gastroenterology and urology devices associated with adverse incidents; E11.9 Type 2 diabetes mellitus without complications; Y92.019 Unspecified place in single-family (private) house as the place of occurrence of the external cause; E55.9 Vitamin D deficiency, unspecified; Z79.4 Long term (current) use of insulin; T85.848A Pain due to other internal prosthetic devices, implants and grafts, initial encounter; I10 Essential (primary) hypertension; Z79.85 Long-term (current) use of injectable non-insulin antidiabetic drugs; R10.11 Right upper quadrant pain; D50.9 Iron deficiency anemia, unspecified; Z94.4 Liver transplant status; K76.6 Portal hypertension; Z88.7 Allergy status to serum and vaccine; K83.8 Other specified diseases of biliary tract; E21.0 Primary hyperparathyroidism; M54.9 Dorsalgia, unspecified; Z83.3 Family history of diabetes mellitus; T85.898A Other specified complication of other internal prosthetic devices, implants and grafts, initial encounter

== ENCOUNTER 2023-11-06 13:45 | Inpatient (IN) ==
--- OUTSIDE RECORDS SUMMARY | 2023-11-06 13:54 | External Medical Summary | Continuity of Care Document ---
Author Name Unknown Organization [facility] [address] Alberto [address] 1 Address [address] [place], [place] [id number] Care Team Providers Care Special Education Teachers Name Role Phone BartEleazarjennifer Denise Primary Care Physician [phone] [id number] Date(s): 11/03/23 - 11/03/[address] [facility] [address] 1 [facility] [address] 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) use of unspecified immunomodulators and immunosuppressants (Final) - Immunodeficiency, unspecified(Final) - Disorders of magnesium metabolism, unspecified(Final) - Discharge Disposition: Home or Self Care Attending Physician: MD Bailey Abhinav Referring Physician: MD Bailey Abhinav Allergies, Adverse Reactions, Alerts Substance Criticality Severity Reaction Reaction Severity Status tetracycline severe belly aches HARLEY Active tetracyclines Unknown Active flu vaccines Active Bee stings Unable to assess criticality Severe Anaphylaxis anaphylaxis Active Influenza Virus Vaccine Unable to assess criticality Severe Angioedema Active Immunizations Given and Recorded Vaccine Date Status [...] 10 mg oral tablet Start: 02/09/23 11:22:00 AM EST, 1 tab, PO, Daily Start Date: 02/09/23 Status: Ordered atorvastatin 20 mg oral tablet 1 tab, TAKE ONE TABLET BY MOUTH EVERY 7 DAYS Start Date: 10/27/23 Status: Ordered atorvastatin 20 mg oral tablet Start: 10/28/23 8:06:00 AM EDT, 1 tab, PO, Daily, Disp# 90 tab, Refills: 3, Pharmacy: [facility]/pharmacy #[id number] Start Date: 10/28/23 Status: Ordered Basaglar Tempo Pen 100 units/mL subcutaneous solution INJECT 30 UNITS INTO THE ABDOMEN ONCE DAILY. Start Date: 09/17/23 Status: Ordered biotin Start: 10/19/23 9:22:00 AM EDT, 1 mg =, Daily Start Date: 10/19/23 Status: Ordered cycloSPORINE 25 mg oral capsule Start: 10/19/23 9:20:00 AM EDT, 2 cap, PO, q12h Start Date: 10/19/23 Status: Ordered FeroSul 325 mg (65 mg elemental iron) oral tablet Start: 06/04/23 1:15:00 PM EDT, 1 tab, PO, Daily, Disp# 30 tab, Refills: 5, Pharmacy: [facility]/pharmacy #[id number] Start Date: 06/04/23 Stop Date: 12/01/23 Status: Ordered levothyroxine 125 mcg (0.125 mg) oral tablet TAKE 1 TABLET BY MOUTH EVERY DAY Start Date: 10/19/23 Status: Ordered Mounjaro 5 mg/0.5 mL subcutaneous solution INJECT 5 MG (0.5 ML) SUBCUTANEOUSLY WEEKLY Start Date: 03/10/23 Status: Ordered multivitamin Start: 07/02/23 3:06:00 PM EDT, 1 tab, PO, Daily Start Date: 07/02/23 Status: Ordered omeprazole 20 mg oral delayed release capsule Start: 09/03/23 11:06:00 AM EDT, 1 cap, PO, bid, Disp# 60 cap, Refills: 5, Pharmacy: [facility]/pharmacy #[id number] Start Date: 09/03/23 Stop Date: 03/01/24 Status: Ordered pantoprazole 40 mg oral delayed release tablet TAKE 1 TABLET BY MOUTH EVERY DAY Start Date: 10/19/23 Status: Ordered pregabalin 50 mg oral capsule TAKE 1 CAPSULE BY MOUTH EVERYDAY AT BEDTIME Start Date: 10/19/23 Status: Ordered sertraline 100 mg oral tablet Start: 09/02/23 1:33:00 PM EDT, 1 tab, PO, qhs, Disp# 30 tab, Refills: 4, Pharmacy: [facility]/pharmacy #[id number] Start Date: 09/02/23 Stop Date: 01/30/24 Status: Ordered traMADol 50 mg oral tablet Start: 08/16/23 3:59:00 PM EDT, 1 tab, PO, q4h, Disp# 30 tab, Refills: 0, PRN: as needed for pain, Pharmacy: [facility]/pharmacy #[id number] Start Date: 08/16/23 Status: Ordered valsartan 80 mg oral tablet Start: 06/03/23 2:32:00 PM EDT, 30 each, 0 Refill(s), TAKE 1 TABLET BY MOUTH EVERY DAY Start Date: 06/03/23 Status: Ordered Problem List Condition Confirmation Course Effective Dates Status H ealth Status Informant Barretts esophagus Confirmed Active Arthritis of both feet Confirmed Active Chronic diarrhea Confirmed Active Cirrhosis Confirmed Active Colonic polyp Confirmed Active Sinus congestion Confirmed Active Diabetes mellitus type 2 Confirmed Active Diverticulitis Confirmed Active Dermatitis Confirmed Active Eyelid eczema Confirmed Active Episcleritis 1 Confirmed Active Pain in both feet Confirmed Active Liver transplanted Confirmed Active History [...] angioma Confirmed Active Spleen enlarged Confirmed Active Bilateral swelling of feet Confirmed Active Easy fatigability Confirmed Active Weight disorder Confirmed Active , 2004 Procedures Procedure Date Related Diagnosis Body Site Status Diabetes clinic 09/07/23 Completed Excision 06/03/23 Completed Shave biopsy 1 04/26/[address] of abdomen and pelvis 2 02/09/23 Completed Liver transplant recipient 09/2022 Completed EGD (esophagogastroduodenosc opy) gastric outlet reduction 3 03/06/22 Compl eted Colonoscopy 4 09/16/21 Completed CAT scan Abdomen/pelvis 5 07/15/21 Completed Ultrasound scan of abdomen, right upper quadrant and epigastrium 6 09/24/20 Completed Laboratory findings data interpretation 7, 8 09/17/20 Completed Laboratory findings data interpretation 9 09/16/20 Completed Colonoscopy 10 07/24/20 Completed Upper GI endoscopy 11 05/21/20 Com pleted Medical records review 12 05/18/20 Completed Shave biopsy and cauterization of skin 02/26/20 Completed Ultrasound finding 13 02/15/20 Com pleted Diabetic retinal eye exam 14 01/04/20 Completed Ultrasound--abdomen 15, 16 09/08/19 Completed Small bowel series 17 03/14/19 Com pleted Colonoscopy 18 01/30/19 Completed Colonoscopy 19 01/30/19 Completed Esophagogastroduodenoscopy 20 01/30/19 Completed Upper GI endoscopy 21 01/30/19 Com pleted CINE/VID X-RAY THROAT/ESOPH 22 11/23/17 Completed Esophagogastroduodenoscopy 23, 24 10/22/17 Completed Mammogram - screening 25 08/25/17 Completed MRI of pelvis 26 03/05/17 Complete d Mammogram - screening 27 08/24/16 Completed Colonoscopy 28 04/04/16 Completed Mammogram 08/23/15 Completed Papanicolaou smear 29 08/16/15 Com pleted abdomen and pelvcis with iv contrast 07/11/[address] - Computerized tomography CT ABD/pelvis IV and oral cont 06/09/[address] - Computerized tomography CT jead wotjpit cpmtrast 06/09/15 Completed Colonoscopy 30, 31, 32 10/31/14 Co mpleted Esophagogastroduodenoscopy 33, 34, 35 10/31/14 Completed ESWL - Extracorporeal shockw ave lithotripsy for renal calculus 36 01/19/14 Completed Appendectomy Completed Arthroscopy 37 Completed Cholecystectomy Completed Colonoscopy Completed Cystoscopy Completed ESWL - Extracorporeal shockw ave lithotripsy for renal calculus 38 Completed Hysterectomy and bilateral salpingo-oophorectomy sample Com pleted Punch biopsy of skin Comp leted T & A Completed Thumb joint structure 39 Completed 1right upper arm 2FINDINGS: Mild right diaphragmatic elevation with right basilar [...] ascites. 5. Splenomegaly with abdominal varicosities redemonstrated. 3Z LINE IRREGULAR, 38 cm FROM THE INCISORS, BIOPSIED PORTAL HYPERTENSIVE GASTROPATHY NORMAL DUODENUM 4Impression: three 3-6mm polyps in the rectum, removed w/ hot snare, resected and retrieved diverticulosis in the sigmoid colon non-bleeding internal hemorrhoids several random biopsies were obrained in the colon fluid aspiration was performed 5Impression: No bowel obstruction. Cirrhotic liver disease with stigmata of portal venous hypertension. urinary bladder wall thickening with partial distention and mild perivesicular stranding. Correlatewith urinalysis to exclude cystitis. unchanged dilation of the appendix, no evidence of appendicitis. Moderate subacute L4 superior endplate compression deformity with minimal retropulsion. Colonic diverticulosis 6Impression: Cirrhosis. No suspicious lesion siwthin the liver by sonography No change in biliary ductal dilatation likely related to cholecystectomy Obscured pancreas. 7ordered by Leana Blanton 8CBC WBC 3.76 L, plts 113 L, CMP K 3.3 L, gluc 114 H, Ca 10.4 H, TB 3.8 H, AST 68 H, alk phos 224 H,LDH 279 H ferritin 110 nl 9[facility] INR 1.2 H, AFP 7.5 H 10IMPRESSION: 1) Non-bleeding internal hemorrhoids 2) No specimens collected Repeat in 5 years 11IMPRESSION: 1) Grade 1 esophageal varices 2) Z-line regular, 38cm from the incisors 3) Portal hypertensive gastropathy 4) Normal examine duodenum 5) No specimens collected. 12[facility] for LLQ pain, diarrhea, melena. CT showed cirrhosis with portal HTN, diverticulosis, DC and sigmoid thickening. EGD showed grade 1 varcies and portal gastropathy. She was placed on IV abx Zosyn and sent home on augmentin for 10 day total therapy. Pt requesting [facility] eval for liver. 13US of abdomen complete and pelvis---cirrhosis, s/p karin, CBD 1.4 cm s/p karin similar to 08/2019, splenomegaly. US of pelvis s/p hysterectomy and BSO. 14No diabetic retinopathy. 151) Hepatic cirrhosis 2) Prior cholecystectomy with chronic postprocedural dilatation of the common bile duct. 3) Splenomegaly with a maximum dimension of 19cm. 16Complete abd u/s done. Entire report reviewed. CBD 1.2 cm but chronic. 17SBFT neg. 18Diverticulosis in the left colon 2to3mm polyps in the rectum,removed with cold biopsy,resected and retrieved. 19COLO to cecum, diverticulosis, rectal polyps CF removed 20EGD 2nd duod nl bx, antrum erythema bx, erosive gastritis body, short barretts bx, Grade 1 esoph varices, 2 cm HH. 21Esophageal mucosal changes consistant with short segment Moeller's esophagus. Biopsied. 2cm hiatal hernia Erythematous mucosa in the antrum.Biopsied Erosive gastropathy normal second portion of the duodenum.Biopsied. 22Video swallow study with speech path. Mild oropharyngeal dysphagia. Aspiration with thin liquids. Speech path recs regular diet, straws ok one sip at a time or avoid if increased coughing, fully upright for meals and for 30 min after meals, head of bed 30 degrees, small bites/sips, one bite/sip at a time, clear oral cavity before next bitet, do not talk while eating, 23path Barretts, fundic gland polyp, repeat EGD 3 years. 24EGD tongues of barretts biopsied, polyps fundus of stomach biosied, 4 cm HH. 25There is no mammographic evidence of malignancy. A 1 year screening mammogram is recommended. 26Impression: Mild lower rectal wall thickening. Correlation with digital and /or endoscopic examination is recommended. No evidence of abscess Diverticulosis. No evidence of acute diverticulitis no evidence of pathologic adenopathy. 27BIRADS 1 NEGATIVE There is no mammographic evidence for malignancy. A 1 year screening mammogram is recommended. 28await path results 29Negative for intraepithelial lesion or malignancy 30path tubular adenoma 31colo 5 years 32COLO to cecum extensive left sided diverticulosis, TC polys times two, 33path Barrtts 34EGD tongue Barrretts bx , 5 cm HH, 35EGD 3 years 36Left 37left knee - meniscus/cartilage 38S/P left stent and ESWL of large left renal stone. 39left thumb joint repair Results Laboratory List Name Date Complete Blood Count w Differential (CBC ,DIFFH) 11/03/23 Comprehensive Metabolic Panel (COMP META B PANEL) 11/03/23 Cyclosporine Level (CYCLOSPORINE) 4 Gamma Glutamyl Transferase (GGTP) 4 Magnesium Level (MAGNESIUM) 11/03/23 Phosphorus Level (PHOSPHORUS) 11/03/23 Prothrombin Time w/ INR (PROTIME WITH IN R) 11/03/23 Request to FAX Report (First Location) ( ACC NO TO BE FAXED) 11/03/23 Request to FAX Report (Second Location) (2ND FAX REQUEST) 11/03/23 Most recent to oldest [Reference Range]: 1 eGFR CKD-EPI [>60 mL/min/1.73 m2] 57 mL/ min/1.73 m2 1 *LOW* (11/03/23 12:34 PM) Platelet Morphology NORMAL *Unknown* (11/03/23 12:34 PM) Estimated CrCl 45.13 mL/min (11/03/23 1:15 PM) Phone No [phone] (11/03/23 12:34 PM) Faxed on: 11/05/23 09:05 (11/03/23 12:34 PM) Phone No (2) [phone] (11/03/23 12:34 PM) Faxed on (2): 11/05/23 09:05 (11/03/23 12:34 PM) MPV [9.0-12.2 fL] 9.3 fL (11/03/23 12:34 PM) Immature Gran% 0.0 % (11/03/23 12:34 PM) Neut% 35.8 % (11/03/23 12:34 PM) Lymph% 41.3 % (11/03/23 12:34 PM) Giles% 16.5 % (11/03/23 12:34 PM) Baso% 1.8 % (11/03/23 12:34 PM) Eos% 4.6 % (11/03/23 12:34 PM) Immat Gran, Abs [0.0-0.4 K/uL] 0.00 K/uL (11/03/23 12:34 PM) Neut, Abs [2.0-7.7 K/uL] 1.35 K/uL *LOW* (11/03/23 12:34 PM) Lymph, Abs [1.0-3.4 K/uL] 1.55 K/uL (11/03/23 12:34 PM) Giles, Abs [0-1.0 K/uL] 0.62 K/uL (11/03/23 12:34 PM) Baso, Abs [0-0.1 K/uL] 0.07 K/uL (11/03/23 12:34 PM) Eos, Abs [0-0.5 K/uL] 0.17 K/uL (11/03/23 12:34 PM) Type of Diff: MANUAL *Unknown* (11/03/23 12:34 PM) RBC Morphology NORMAL *Unknown* (11/03/23 PM) RDW [11.5-14.2 %] 17.2 % *HI* (11/03/23 PM) Anion Gap [5-14 mmol/L] 8 mmol/L (11/03/23 PM) Alb [3.5-5.0 g/dL] 4.2 g/dL (11/03/23 PM) Alk Phos [38-126 unit/L] 93 unit/L (11/03/23 PM) ALT [<35 unit/L] 38 unit/L *HI* (11/03/23 PM) AST [15-46 unit/L] 47 unit/L *HI* (11/03/23 PM) Atyp Lymph PRESENT *Unknown* (11/03/23 PM) BUN [7-20 mg/dL] 20 mg/dL (11/03/23 PM) Ca [8.4-10.2 mg/dL] 10.5 mg/dL *HI* (11/03/23 PM) Cl- [96-107 mmol/L] 103 mmol/L (11/03/23 PM) HCO3 [22-30 mmol/L] 26 mmol/L (11/03/23 PM) Cret [0.60-1.00 mg/dL] 1.06 mg/dL *HI* (11/03/23 PM) Glu [74-106 mg/dL] 86 mg/dL (11/03/23 PM) GGT [3-40 unit/L] 32 unit/L (11/03/23 PM) Hct [35-44 %] 37.8 % (11/03/23 PM) Hgb [11.7-15.0 g/dL] 11.8 g/dL (11/03/23 PM) INR [0.9-1.1] 1.0 4 (11/03/23 PM) K [3.5-5.1 mmol/L] 4.5 mmol/L (11/03/23 PM) MCH [28-33 pg] 24.9 pg *LOW* (11/03/23 12:34 PM) MCHC [32-36 g/dL] 31.2 g/dL *LOW* (11/03/23 12:34 PM) MCV [81-96 fL] 79.7 fL *LOW* (11/03/23 12:34 PM) Mg [1.6-2.3 mg/dL] 1.7 mg/dL 5 (11/03/23 12:34 PM) Na [137-145 mmol/L] 137 mmol/L (11/03/23 12:34 PM) PO4 [2.5-4.5 mg/dL] 4.4 mg/dL 6 (11/03/23 12:34 PM) Plts [150-350 K/uL] 246 K/uL (11/03/23 12:34 PM) PT [12.0-14.2 seconds] 13.1 seconds (11/03/23 12:34 PM) RBC [3.90-5.00 M/uL] 4.74 M/uL (11/03/23 12:34 PM) CyA 58 ng/mL 7 (11/03/23 12:34 PM) T Bili [0.2-1.3 mg/dL] 1.1 mg/dL (11/03/23 12:34 PM) Prot [6.3-8.2 g/dL] 7.1 g/dL (11/03/23 12:34 PM) WBC [4.0-10.4 K/uL] 3.76 K/uL *LOW* (11/03/23 12:34 PM) 1Result Comment: Testing Performed By: Dept of Pathology [facility] [address], [address] [facility] [place] [address] 2Result Comment: Testing Performed By: Dept of Pathology [facility] [address], [address] [facility] [place], [place] [address] 3Result Comment: Testing Performed By: Dept of Pathology [facility] [address], [address] [place] [address], [place] [address] 4Result Comment: Suggested therapeutic range for low-intensity Coumadin therapy for venous thromboembolism is INR 2.0-3.0 (ex: atrial fibrillation, history of TIA/stroke). For high risk patients, the suggested therapeutic range is INR 2.5-3.5 (ex: mechanical prosthetic valves). Testing Performed By: Dept of Pathology [facility] [address], [address] [facility] [place], [place] [address] 5Result Comment: Testing Performed By: Dept of Pathology [facility] [address], [address], [place] [address] 6Result Comment: Testing Performed By: [facility], [address] [facility] [place], [place] [address] 7Result Comment: No guideline supported therapeutic range exists for cyclosporine in whole blood. The complexity of the clinical state, individual differences in sensitivity to immunosuppressive and nephrotoxic effects of cyclosporine, co-administration of other immunosuppressants, type of transplant, time post-transplant and a number of other factors contribute to different requirements for optimal blood levels of cyclosporine. Therefore, individual cyclosporine values cannot be used as the sole indicator for making changes in treatment regimen and each patient should be thoroughly evaluated clinically before changes in treatment regimens are made. Each user must establish his or her own ranges based on clinical experience. The following ranges are suggested guidelines: Kidney Transplantation: 100-200 ng/mL Other Organ Transplantation: 200-300 ng/mL Testing was performed by Immunoassay ([employer]). Social History Social History Type Response Tobacco Former smoker, Start ed age 14 Years. Stopped age 38 Years. 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
[2023-11-06 14:28] LABS: Basophils # (auto) 0.04 K/uL (0.00-0.20); Basophils % (auto) 0.7 %; Eosinophils # (auto) 0.08 K/uL (0.00-0.50); Eosinophils % (auto) 1.3 %; Hematocrit (blood only) 36.7 % (37.0-47.0); Hemoglobin 12.1 g/dl (12.0-16.0); Immature Granulocytes # (auto) 0.03 K/uL (0.01-0.20); Immature Granulocytes % (auto) 0.5 %; Lymphocytes # (auto) 1.21 K/uL (1.20-3.40); Lymphocytes % (auto) 20.1 %; Mean Corpuscular Hemoglobin 25.1 pg (25.0-34.0); Mean Platelet Volume 8.8 fL (9.4-12.4); Monocytes # (auto) 1.23 K/uL (0.11-0.59); Monocytes % (auto) 20.4 %; Neutrophils # (auto) 3.43 K/uL (1.40-6.50); Platelet Count 216 K/uL (130-400); RDW Coefficient of Variation 16.6 % (11.5-14.5); RDW Standard Deviation 45.6 fL (36.4-46.3); Red Blood Count 4.83 M/uL (4.20-5.40); White Blood Count 6.02 K/ul (4.8-10.8)
[2023-11-06 14:47] LABS: Albumin Globulin Ratio 1.8 (0.9-2); Albumin Level 4.6 gm/dl (3.4-5.0); BUN Creatinine Ratio 14.3 (10-20); Bilirubin,Total 1.1 mg/dl (0.2-1.0); Calcium 10.7 mg/dl (8.6-10.3); Creatinine Clr Calc Pharmacy 46.5 ml/min; Est GFR (African American) 62.3 ml/min; Est GFR (Non-African American) 53.8 ml/min; Globulin 2.5 gm/dl (2.5-4.0); Total Protein 7.1 gm/dl (6.0-8.3)
[2023-11-06 14:53] LABS: Troponin I High Sensitivity 3.5 pg/ml (0-14)
--- NOTE | 2023-11-06 15:01 | XRay Report ---
SINGLE VIEW CHEST CLINICAL HISTORY: Atypical chest pain FINDINGS: An AP, portable, upright chest radiograph is compared to study dated 07/16/2023. The cardiome diastinal heart is mildly enlarged. Chronic interstitial thickening is similar to previous. There is bibasilar scarring/atelectasis. The lungs and pleural spaces are otherwise clear. No pneumothorax is seen. The skeletal structures are osteopenic. The bony thorax is grossly intact. Surgical clips are s een in the upper abdomen. IMPRESSION: No acute cardiopulmonary abnormality. ACT 112: Negative or not required by law. Electronically signed by: Parveen Candelaria M.D. 11/06/2023 3:00 PM
[2023-11-06] MEDS: OPTIRAY 320 125ml IV ONE (15:27)
--- NOTE | 2023-11-06 16:17 | CT Scan Report ---
CT ANGIOGRAM OF THE CHEST CLINICAL HISTORY: Atypical chest pain. Thoracic back pain. COMPARISON STUDY: Chest x-ray dated 11/06/2023. Chest CT dated 02/17/2013. TECHNIQUE: Following the IV administration of 116 cc of Optiray 320, CT angiogram of the chest was pe rformed from the thoracic inlet to the upper abdomen utilizing the dissection protocol. Images are re viewed in the axial, sagittal, and coronal planes. 3-D MIPS images are created and assessed. IV contr ast was administered without complication. A dose lowering technique was utilized adhering to the pr inciples of ALA. CT DOSE: 452.8 mGy.cm FINDINGS: Thyroid: Atrophic. Thoracic aorta: The thoracic aorta is normal in caliber and demonstrates standard 3-vessel arch anato my. No dissection is seen. The arch vessels are widely patent. Pulmonary vasculature: The pulmonary trunk is normal in caliber. There are no filling defects identif ied in the main, lobar, or segmental pulmonary vessels to indicate pulmonary embolus. Heart: The heart is enlarged and without pericardial effusion. There is coronary artery atheroscleros is. Lungs and pleural spaces: Evaluation of the lung parenchyma is degraded by motion artifact. There is no airspace consolidation typical for pneumonia or pleural effusion. Segmental atelectasis is seen at the right lung base. There is an 11 mm left upper lobe pulmonary nodule seen on image #44. This has modestly increased in size dating back to 2012 when it measured 7 mm. A 3 mm pleural-based nodule in the left upper lobe along the major fissure on image #39 is unchanged. Mediastinum: There is no mediastinal lymphadenopathy. Malina: Clear. Axillae: There is no axillary lymphadenopathy. Upper abdomen: The liver appears steatotic and there is postsurgical change change from left lobe hep atic resection. The spleen is enlarged, measuring at least 15.2 cm in length. A small hiatal hernia i s noted. Skeletal structures: The skeletal structures are osteopenic. No lytic or blastic bony lesions are see n. Degenerative change is noted in the thoracic spine. IMPRESSION: 1. Unremarkable CT angiogram of the thoracic aorta. 2. There is no evidence of pulmonary embolus in the main, lobar, or segmental pulmonary arteries. 3. Cardiomegaly. 4. There is no airspace consolidation typical for pneumonia or pleural effusion. 5. An 11 mm left upper lobe pulmonary nodule has modestly increased in size dating back to 2012. This favors a nonaggressive lesion. A slow-growing neoplasm such as carcinoid could potentially have this appearance. Nonemergent follow-up with pulmonology is recommended. 6. Splenomegaly. 7. Additional findings as above. ACT 112: Negative or not required by law. Electronically signed by: Parveen Candelaria M.D. 11/06/2023 4:14 PM
[2023-11-06] MEDS: KETOROLAC TROMETHAMINE 15 MG/ML VIAL IV ONE (16:32)
--- NOTE | 2023-11-06 17:17 | Emergency Department Note ---
Impression & Plan Atypical chest pain ED Provider Note NAME: SHOLA WYNN AGE: 68 SEX: F : 1955 ARRIVES VIA: Walk-In INFORMANT: [Patient][, ] ED PROVIDER(S): [Saulo Clifton MD] CHIEF COMPLAINT: Chest pain HPI: This is a 68-year-old female presenting for chest pain. Patient was last night she began having symptoms of chest pain, across her upper back, into her right sided neck, anterior chest. She notes no associated nausea or vomiting. She notes her ear is also painful at this time. She notes it is positional as well, worse with lying flat ROS: See above HPI for pertinent positives & negatives. A total of [10] systems reviewed and were otherwise negative. PAST MEDICAL HISTORY: [See Below] PAST SURGICAL HISTORY: [See Below] FAMILY HISTORY: [See Below] SOCIAL HISTORY: [See Below] HOME MEDICATIONS: [See Below] ALLERGIES: [See Below] VITALS: See Below PHYSICAL EXAMINATION: General: resting comfortably in no acute distress Head: Normocephalic and atraumatic Eyes: Normal inspection, extraocular muscles intact Ear, nose, throat: Normal external exam Neck: Normal range of motion Respiratory: lungs clear to auscultation bilaterally Cardiovascular: Regular rate/rhythm, no murmur GI: soft, nontender, no guarding or rebound Extremities: nontender, moves all extremities Neuro: The patient awake and alert, appropriately conversive, no focal deficits, symmetric faces Skin: Warm, dry, and intact MEDICAL DECISION MAKING: This is 68-year-old male presenting for chest pain. Consider ACS, PE, dissection. -ECG independently interpreted by me with normal sinus rhythm, rate of 91, normal axis, normal MA, normal QRS, normal QTc, no ST segment elevations consistent with STEMI criteria -Chest Xray independently interpreted by me showing no pneumothorax, focal opacity, or pleural effusions. -Due to patient being extremely uncomfortable, writhing in the stretcher, will do CTA to rule out dissection however low likelihood -No PE or dissection noted. There is a mass noted in the left upper lung which patient/ were told about as well as her other incidental findings. -Bloodwork is reviewed showing no significant leukocytosis, anemia, electrolyte or creatinine abnormality -Overall patient symptoms are persistent despite Toradol administration and negative workup. -Will require admission for further workup of her chest pain. -Will discuss with hospital service, under Dr. Landry for admission Differential diagnosis: ACS, PE, dissection ER treatment provided: See below Independent History obtained from: Diagnostics interpreted by me: ECG: See above Cardiac Monitoring: An order was placed for continuous cardiac monitoring. The monitor shows a rate of 81 with sinus rhythm. Laboratory studies: As stated above and show below. Imaging studies: See below. 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 (Acute) Chronic anemia (Acute) Hyperlipidemia Hypertension Diabetes mellitus type 2 with complications Elevated bilirubin (Acute) Hypothyroidism (Chronic) Medical History Sinusitis Encephalopathy, hepatic Left wrist sprain Benign essential tremor Generalized weakness LISA (acute kidney injury) Moeller esophagus Portal hypertension Neutropenic typhlitis Pancytopenia Hyperammonemia Hepatic encephalopathy Abdominal pain Hypothyroidism Liver disease Weakness Hyperbilirubinemia REBOLLAR (nonalcoholic steatohepatitis) History of colon polyps BENIGN Depression UTI (urinary tract infection) HX, JULY 2021 -HOSPITALIZED FOR , NOW RESOLVED DURING TESTING FOUND 2 LUMPS IN INTESTINES...REASON FOR UPCOMING COLONOSCOPY History of fractured vertebra CURRENT, HX FALL JULY 2021 - FELL OF THE TOILET - NO INTERVENTION AT PRESENT/ [facility] FOR TO DISCUSS TX OPTIONS - POTENTIAL BACK BRACE Urge incontinence 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 Abnormal finding on breast imaging Urinary tract infection Fracture of fourth lumbar vertebra Chronic diarrhea SOMETIMES - when takes lactulose Benign paroxysmal positional vertigo of left ear Sensorineural hearing loss (SNHL) of both ears asymmetrical, left WRS Seasonal allergies Thrombocytopenia Syncope Epistaxis Arthritis History of kidney stones GERD (gastroesophageal reflux disease) Anemia HX Temporomandibular joint disorder NO LOCKING/WEARS 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 Anxiety and depression Diabetes mellitus, type 2 GI bleed RECENT HOSPITALIZED - PT DENIES HX GI BLEED Colitis with rectal bleeding Spleen enlarged MONITORS - PT REPORTS FROM THE REBOLLAR 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 Hiatal hernia Stucco keratoses Heel spur B/L feet Moeller's esophagus with esophagitis Surgical History H/O thumb surgery RT/LEFT JOINT REPAIR History of cystoscopy History of appendectomy History of tooth extraction History of tonsillectomy and adenoidectomy H/O total hysterectomy History of arthroscopy of knee Left Knee - meniscus/cartilage History of esophagogastroduodenoscopy (EGD) History of colonoscopy Hx of cholecystectomy Family History (Updated 08/27/23 @ 16:33 by Melecio London LPN) Brother Coronary heart disease Heart disease Lupus Mother Family history of diabetes mellitus Hypertension Heart disease Sister Family history of diabetes mellitus Son Family history of diabetes mellitus Father Family hx of colon cancer Hearing loss Hypertension Cancer Heart disease Grandfather (Maternal) Family hx of colon cancer Grandmother (Maternal) Heart disease Grandmother (Paternal) Heart disease Grandfather (Paternal) Heart disease Other No family history of adverse response to anesthesia No family history of bleeding disorder Social History Smoking Status: Never smoker Second Hand Exposure: No; Do You Dip or Chew Tobacco: No; Hx Alcohol Use: No Hx Substance Use: No Preferred Language: Upper Sorbian Communication Ability: Effective 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 Required: No Beliefs That Will Affect Care: None marital status: Current Living Situation: Spouse Current Living Situation Comment: lives in ranch style home with current occupational status: employed and retired How many Children do You have: 0 Feels Safe at Home: Yes Assistive Devices: Walker and Wheelchair Allergies Allergies Allergy/AdvReac Type Severity Reaction Status Date / Time bee venom protein (honey bee) Allergy Severe Anaphylaxis Verified 11/06/23 17:59 Influenza Virus Vaccines Allergy Severe Anaphylaxis Verified 11/06/23 17:59 tetracycline AdvReac Severe Severe Verified 11/06/23 17:59 stomach pains Home Meds Home Medications Medication Instructions Recorded Confirmed biotin 1 mg capsule 1 mg PO BID 02/02/23 11/06/23 sertraline 100 mg tablet 100 mg PO QPM 02/02/23 11/06/23 amlodipine 10 mg tablet 10 mg PO QAM 04/21/23 11/06/23 ferrous sulfate 325 mg (65 mg 325 mg PO DAILY 08/31/23 11/06/23 iron) tablet insulin regular human 100 unit/mL 5 unit subcut DAILY PRN Blood 09/07/23 11/06/23 (3 mL) subcutaneous pen (Novolin R Glucose Level FlexPen) cyclosporine 25 mg capsule 50 mg PO BID 10/18/23 11/06/23 zaphadhq-yde-prbou ac 400 1 tab PO QAM 10/18/23 11/06/23 mcg-calcium carb 500 mg-vit K1 20 mcg tablet (Women's 50 Plus Multivitamin) pantoprazole 40 mg tablet,delayed 40 mg PO DAILY 10/18/23 11/06/23 release (Protonix) atorvastatin 20 mg tablet 20 mg PO HS 11/06/23 11/06/23 insulin glargine 100 unit/mL (3 30 unit subcut QAM 11/06/23 11/06/23 mL) subcutaneous pen (Basaglar KwikPen U-100 Insulin) Previous Rx's Medication Instructions Recorded semaglutide 0.25 mg or 0.5 mg (2 0.5 mg (0.736 mL) subcut Q7D #9 mL 10/05/23 mg/3 mL) subcutaneous pen injector (Ozempic) pregabalin 50 mg capsule (Lyrica) 50 mg PO HS #90 caps 10/12/23 FreeStyle Lisy 3 Sensor #6 ea 10/13/23 (blood-glucose sensor) valsartan 80 mg tablet 80 mg PO QPM #30 tabs 10/22/23 levothyroxine 100 mcg tablet 100 mcg PO DAILY #30 tabs 11/05/23 pen needle, diabetic 32 gauge x #100 ea 11/05/2332" (BD Ultra-Fine Lani Pen Needle) Results & Data (ED) Vital Signs Vital Signs - 24 hr 11/06/23 13:51 11/06/23 14:06 11/06/23 14:08 Temperature 36.5 C Temperature Source Temporal Artery Scan Pulse Rate 97 H 90 Pulse Rate [Apical] Respiratory Rate 20 18 Respiratory Effort / Characteristics Non-Labored Spontaneous Respiratory Depth Normal Blood Pressure 132/64 Blood Pressure [Left Arm] Blood Pressure Mean 86 Blood Pressure Mean [Left Arm] Pulse Oximetry 96 97 97 Oxygen Delivery Method Room Air Room Air Room Air Sepsis Recent Fever Within 48 Hours No Sepsis New/Unexplained Change in Mental Status N/A Sepsis Action Taken by Nursing No Action Required 11/06/23 14:14 11/06/23 15:38 11/06/23 17:00 Temperature Temperature Source Pulse Rate 92 H Pulse Rate [Apical] 84 80 Respiratory Rate 12 16 Respiratory Effort / Characteristics Non-Labored Spontaneous Respiratory Depth Normal Blood Pressure Blood Pressure [Left Arm] 140/66 150/80 H Blood Pressure Mean Blood Pressure Mean [Left Arm] 90 103 Pulse Oximetry 94 94 Oxygen Delivery Method Room Air Room Air Sepsis Recent Fever Within 48 Hours Sepsis New/Unexplained Change in Mental Status Sepsis Action Taken by Nursing 11/06/23 18:26 11/06/23 19:00 Temperature Temperature Source Pulse Rate 81 Pulse Rate [Apical] 81 Respiratory Rate 17 Respiratory Effort / Characteristics Respiratory Depth Blood Pressure Blood Pressure [Left Arm] 94/54 L Blood Pressure Mean Blood Pressure Mean [Left Arm] 67 Pulse Oximetry 92 Oxygen Delivery Method Room Air Sepsis Recent Fever Within 48 Hours Sepsis New/Unexplained Change in Mental Status Sepsis Action Taken by Nursing Laboratory Data 11/06/23 14:06 11/06/23 14:06 Lab Results 11/06/23 11/06/23 11/06/23 Range/Units 14:06 19:25 21:03 WBC 6.02 (4.8-10.8) K/ul RBC 4.83 (4.20-5.40) M/uL Hgb 12.1 (12.0-16.0) g/dl Hct 36.7 L (37.0-47.0) % MCV 76.0 L (80.0-100.0) fL MCH 25.1 (25.0-34.0) pg MCHC 33.0 (32.0-36.0) g/dL RDW Std Deviation 45.6 (36.4-46.3) fL RDW Coeff of Charlee 16.6 H (11.5-14.5) % Plt Count 216 (130-400) K/uL MPV 8.8 L (9.4-12.4) fL Immature Gran % (Auto) 0.5 % Neut % (Auto) 57.0 % Lymph % (Auto) 20.1 % Roane % (Auto) 20.4 % Eos % (Auto) 1.3 % Baso % (Auto) 0.7 % Neut # (Auto) 3.43 (1.40-6.50) K/uL Lymph # (Auto) 1.21 (1.20-3.40) K/uL Roane # (Auto) 1.23 H (0.11-0.59) K/uL Eos # (Auto) 0.08 (0.00-0.50) K/uL Baso # (Auto) 0.04 (0.00-0.20) K/uL Immature Gran # (Auto) 0.03 (0.01-0.20) K/uL ESR 25 (0-30) mm/hr Sodium 136 (136-145) mmol/L Potassium 4.0 (3.5-5.1) mmol/L Chloride 101 (98-107) mmol/L Carbon Dioxide 27 (21-32) mmol/L Anion Gap 8 (3-11) BUN 15 (6-23) mg/dl Creatinine 1.05 (0.6-1.2) mg/dl Est Cr Clr Drug Dosing 46.5 ml/min Est GFR ( Amer) 62.3 ml/min Est GFR (Non-Af Amer) 53.8 ml/min BUN/Creatinine Ratio 14.3 (10-20) Glucose 100 H (70-99(Fasting)) mg/dl POC Glucose 94 124 H (70-99) mg/dl Calcium 10.7 H (8.6-10.3) mg/dl Magnesium 1.7 (1.7-2.4) mg/dl Total Bilirubin 1.1 H (0.2-1.0) mg/dl AST 30 (13-39) U/L ALT 30 (7-52) U/L Alkaline Phosphatase 98 (34-104) U/L Troponin I High Sens 3.5 (0-14) pg/ml C-Reactive Protein 1.39 H (0-0.5) mg/dl Total Protein 7.1 (6.0-8.3) gm/dl Albumin 4.6 (3.4-5.0) gm/dl Globulin 2.5 (2.5-4.0) gm/dl Albumin/Globulin Ratio 1.8 (0.9-2) Lipase 30 (11-82) U/L Administered Medications Insulin Aspart (Insulin Aspart Per Unit Charge) 0 units SC ACHS PRIMITIVO Stop: 12/06/23 20:59 Last Admin: 11/06/23 21:12 Dose: Not Given Documented By: JEANIE Discontinued Medications Colchicine (Colchicine 0.6 Mg Tab) 1.2 mg PO NOW STA Stop: 11/06/23 19:09 Last Admin: 11/06/23 19:34 Dose: 1.2 mg Documented By: JEANIE Ioversol (Optiray 320 125ml) 116 ml IV ONCE ONE Stop: 11/06/23 15:27 Last Admin: 11/06/23 15:27 Dose: 116 ml Documented By: PLACIDO Ketorolac Tromethamine (Ketorolac Tromethamine 15 Mg/Ml Vial) 15 mg IV NOW ONE Stop: 11/06/23 16:25 Last Admin: 11/06/23 16:32 Dose: 15 mg Documented By: JEANIE Imaging Data Radiologist's Impression: Chest X-Ray 11/06/23 14:04 SINGLE VIEW CHEST CLINICAL HISTORY: Atypical chest pain FINDINGS: An AP, portable, upright chest radiograph is compared to study dated 07/16/2023. The cardiomediastinal heart is mildly enlarged. Chronic interstitial thickening is similar to previous. There is bibasilar scarring/atelectasis. The lungs and pleural spaces are otherwise clear. No pneumothorax is seen. The skeletal structures are osteopenic. The bony thorax is grossly intact. Surgical clips are seen in the upper abdomen. IMPRESSION: No acute cardiopulmonary abnormality. ACT 112: Negative or not required by law. Electronically signed by: Parveen Candelaria M.D. 11/06/2023 3:00 PM Chest CTA 11/06/23 14:59 CT ANGIOGRAM OF THE CHEST CLINICAL HISTORY: Atypical chest pain. Thoracic back pain. COMPARISON STUDY: Chest x-ray dated 11/06/2023. Chest CT dated 02/17/2013. TECHNIQUE: Following the IV administration of 116 cc of Optiray 320, CT angiogram of the chest was performed from the thoracic inlet to the upper abdomen utilizing the dissection protocol. Images are reviewed in the axial, sagittal, and coronal planes. 3-D MIPS images are created and assessed. IV contrast was administered without complication. A dose lowering technique was utilized adhering to the principles of ALARA. CT DOSE: 452.8 mGy.cm FINDINGS: Thyroid: Atrophic. Thoracic aorta: The thoracic aorta is normal in caliber and demonstrates standard 3-vessel arch anatomy. No dissection is seen. The arch vessels are widely patent. Pulmonary vasculature: The pulmonary trunk is normal in caliber. There are no filling defects identified in the main, lobar, or segmental pulmonary vessels to indicate pulmonary embolus. Heart: The heart is enlarged and without pericardial effusion. There is coronary artery atherosclerosis. Lungs and pleural spaces: Evaluation of the lung parenchyma is degraded by motion artifact. There is no airspace consolidation typical for pneumonia or pleural effusion. Segmental atelectasis is seen at the right lung base. There is an 11 mm left upper lobe pulmonary nodule seen on image #44. This has modestly increased in size dating back to 2013 when it measured 7 mm. A 3 mm pleural- based nodule in the left upper lobe along the major fissure on image #39 is unchanged. Mediastinum: There is no mediastinal lymphadenopathy. Malina: Clear. Axillae: There is no axillary lymphadenopathy. Upper abdomen: The liver appears steatotic and there is postsurgical change change from left lobe hepatic resection. The spleen is enlarged, measuring at least 15.2 cm in length. A small hiatal hernia is noted. Skeletal structures: The skeletal structures are osteopenic. No lytic or blastic bony lesions are seen. Degenerative change is noted in the thoracic spine. IMPRESSION: 1. Unremarkable CT angiogram of the thoracic aorta. 2. There is no evidence of pulmonary embolus in the main, lobar, or segmental pulmonary arteries. 3. Cardiomegaly. 4. There is no airspace consolidation typical for pneumonia or pleural effusion. 5. An 11 mm left upper lobe pulmonary nodule has modestly increased in size dating back to 2012. This favors a nonaggressive lesion. A slow-growing neoplasm such as carcinoid could potentially have this appearance. Nonemergent follow-up with pulmonology is recommended. 6. Splenomegaly. 7. Additional findings as above. ACT 112: Negative or not required by law. Electronically signed by: Parveen Candelaria M.D. 11/06/2023 4:14 PM Discharge Plan Visit Data Chief Complaint: Chest Pain Stated Complaint: CHEST PAIN ED Provider: Saulo Clifton Discharge Problem: Atypical chest pain Forms Stand Alone Forms: [facility] [place] Prescriptions Prescriptions: No Action Ozempic 0.25 mg or 0.5 mg (2 mg/3 mL) pen injector 0.5 mg subcut Q7D Qty: 9 0RF Rx Instructions: Wednesday pregabalin [Lyrica] 50 mg capsule 50 mg PO HS Qty: 90 1RF (DME) FreeStyle Lisy 3 Sensor Device See Rx Instructions .Route Qty: 6 3RF Rx Instructions: Change every 14 days valsartan 80 mg tablet 80 mg PO QPM Qty: 30 3RF Rx Instructions: Take one tablet by mouth once a day. (DME) pen needle, diabetic [BD Ultra-Fine Lani Pen Needle] 32 gauge x 5/32" needle See Rx Instructions .Route Qty: 100 3RF Rx Instructions: Use once per day with insulin injection levothyroxine 100 mcg tablet 100 mcg PO DAILY Qty: 30 2RF Rx Instructions: Take one table in the AM 30-45 minutes before meal and other medications. biotin 1 mg capsule 1 mg PO BID sertraline 100 mg tablet 100 mg PO QPM Novolin R FlexPen 100 unit/mL (3 mL) insulin pen 5 unit subcut DAILY PRN (Reason: Blood Glucose Level) cyclosporine 25 mg capsule 50 mg PO BID pantoprazole [Protonix] 40 mg tablet,delayed release (DR/EC) 40 mg PO DAILY Women's 50 Plus Multivitamin 400 mcg-500 mg calcium-20 mcg tablet 1 tab PO QAM ferrous sulfate 325 mg (65 mg iron) tablet 325 mg PO DAILY amlodipine 10 mg Tablet 10 mg PO QAM atorvastatin 20 mg tablet 20 mg PO HS insulin glargine [Basaglar KwikPen U-100 Insulin] 100 unit/mL (3 mL) insulin pen 30 unit subcut QAM Referrals Referrals: Lakisha Arriaga MD [Primary Care Provider] -
--- NOTE | 2023-11-06 17:58 | History & Physical Report ---
Date of Service November 06, 2023 Assessment & Plan (1) Atypical chest pain: Plan: Suspected pericarditis based on associated jaw and shoulder pain, worse on lying down, pleuritic nature and prior history of this Some reproducibility of shoulder pain on palpation over anterior shoulder but chest and jaw pain not reproducible CRP added to labs Discussed care with her liver transplant team (Dr Lyles) and will limit ibuprofen use to 500mg and start colchicine TTE Consult cardiology (2) Diabetes mellitus type 2 with complications: Plan: HbA1C 5.6 ?overtreatment Reduce Lantus in half to 15 units daily due to low HbA1C and likely to be eating less carbohydrates in hospital Novolog: --Goal BSG Range: Low 110 mg/dL, High 140 mg/dL --Correction Factor: 40 mg/dL/unit --Carbohydrate ratio = 13 g/unit --BSGs ACHS if eating, q6h if npo (3) Liver transplant recipient: Plan: Secondary to REBOLLAR performed in September 2022 Discussed with liver transplant team on admission Continue cyclosporine Plan HTN: continue amlodipine and valsartan Diabetic neuropathy: continue pregabalin Hypothyroidism: TSH low, levothyroxine recently reduced by endocrinology 125 mcg to 100mcg PO daily 11/04 therefore will continue on this dose GERD - continue pantoprazole VTE Prophylaxis - low risk Diet - heart healthy, T2DM Disposition - observation to med/tele Admission and Anticipated Discharge Date Admission Date: November 06, 2023 History of Present Illness Chief Complaint: Chest pain Primary Care Provider: Lakisha Arriaga MD Aurelia Kurtz is a 68 year old female who presents to the ER with chest pain. She reports symptoms started at 4am initially as right shoulder pain but then across her chest and right side of her jaw and up to her ear, sharp pleuritic chest pain, without relief since 4am, severity 12/10 when she came to the ER (improved with Toradol and sitting up, significant positional nature with worse on lying flat (had to sit up and felt short of breath while having CT). She has Barrets esophagus and takes pantoprazole for this without reflux problems on this medication and she feels this pain is different to her reflux. No dysphagia or odynophagia. She has a notably history of liver transplant in September 2022. Initially on everolimus and prednisone but switched three weeks ago to cyclosporine for steroid sparing. Allergies Allergy/AdvReac Type Severity Reaction Status Date / Time bee venom protein (honey bee) Allergy Severe Anaphylaxis Verified 11/06/23 17:59 Influenza Virus Vaccines Allergy Severe Anaphylaxis Verified 11/06/23 17:59 tetracycline AdvReac Severe Severe Verified 11/06/23 17:59 stomach pains Home Medications Medication Instructions Recorded Confirmed Type biotin 1 mg capsule 1 mg PO BID 02/02/23 11/06/23 History sertraline 100 mg tablet 100 mg PO QPM 02/02/23 11/06/23 History amlodipine 10 mg tablet 10 mg PO QAM 04/21/23 11/06/23 History ferrous sulfate 325 mg (65 mg 325 mg PO DAILY 08/31/23 11/06/23 History iron) tablet insulin regular human 100 unit/mL 5 unit subcut DAILY PRN Blood 09/07/23 11/06/23 History (3 mL) subcutaneous pen (Novolin R Glucose Level FlexPen) semaglutide 0.25 mg or 0.5 mg (2 0.5 mg (0.736 mL) subcut Q7D #9 mL 10/05/23 11/06/23 Rx mg/3 mL) subcutaneous pen injector (Ozempic) pregabalin 50 mg capsule (Lyrica) 50 mg PO HS #90 caps 10/12/23 11/06/23 Rx FreeStyle Lisy 3 Sensor #6 ea 10/13/23 10/18/23 Rx (blood-glucose sensor) cyclosporine 25 mg capsule 50 mg PO BID 10/18/23 11/06/23 History csjrfver-lre-nbcxe ac 400 1 tab PO QAM 10/18/23 11/06/23 History mcg-calcium carb 500 mg-vit K1 20 mcg tablet (Women's 50 Plus Multivitamin) pantoprazole 40 mg tablet,delayed 40 mg PO DAILY 10/18/23 11/06/23 History release (Protonix) valsartan 80 mg tablet 80 mg PO QPM #30 tabs 10/22/23 11/06/23 Rx levothyroxine 100 mcg tablet 100 mcg PO DAILY #30 tabs 11/05/23 11/06/23 Rx pen needle, diabetic 32 gauge x #100 ea 11/05/23 Rx 5/32" (BD Ultra-Fine Lani Pen Needle) atorvastatin 20 mg tablet 20 mg PO HS 11/06/23 11/06/23 History insulin glargine 100 unit/mL (3 30 unit subcut QAM 11/06/23 11/06/23 History mL) subcutaneous pen (Basaglar KwikPen U-100 Insulin) 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 (Acute) Chronic anemia (Acute) Hyperlipidemia Hypertension Diabetes mellitus type 2 with complications Elevated bilirubin (Acute) Hypothyroidism (Chronic) Medical History Sinusitis Encephalopathy, hepatic Left wrist sprain Benign essential tremor Generalized weakness LISA (acute kidney injury) Moeller esophagus Portal hypertension Neutropenic typhlitis Pancytopenia Hyperammonemia Hepatic encephalopathy Abdominal pain Hypothyroidism Liver disease Weakness Hyperbilirubinemia REBOLLAR (nonalcoholic steatohepatitis) History of colon polyps BENIGN Depression UTI (urinary tract infection) HX, JULY 2021 -HOSPITALIZED FOR , NOW RESOLVED DURING TESTING FOUND 2 LUMPS IN INTESTINES...REASON FOR UPCOMING COLONOSCOPY History of fractured vertebra CURRENT, HX FALL JULY 2021 - FELL OF THE TOILET - NO INTERVENTION AT PRESENT/ DR AMY [facility] FOR TO DISCUSS TX OPTIONS - POTENTIAL BACK BRACE Urge incontinence 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 Abnormal finding on breast imaging Urinary tract infection Fracture of fourth lumbar vertebra Chronic diarrhea SOMETIMES - when takes lactulose Benign paroxysmal positional vertigo of left ear Sensorineural hearing loss (SNHL) of both ears asymmetrical, left WRS Seasonal allergies Thrombocytopenia Syncope Epistaxis Arthritis History of kidney stones GERD (gastroesophageal reflux disease) Anemia HX Temporomandibular joint disorder NO LOCKING/WEARS 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 Anxiety and depression Diabetes mellitus, type 2 GI bleed RECENT HOSPITALIZED - PT DENIES HX GI BLEED Colitis with rectal bleeding Spleen enlarged MONITORS - PT REPORTS FROM THE REBOLLAR 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 Hiatal hernia Stucco keratoses Heel spur B/L feet Moeller's esophagus with esophagitis Surgical History H/O thumb surgery RT/LEFT JOINT REPAIR History of cystoscopy History of appendectomy History of tooth extraction History of tonsillectomy and adenoidectomy H/O total hysterectomy History of arthroscopy of knee Left Knee - meniscus/cartilage History of esophagogastroduodenoscopy (EGD) History of colonoscopy Hx of cholecystectomy Family History (Updated 08/27/23 @ 16:33 by Melecio London LPN) Brother Coronary heart disease Heart disease Lupus Mother Family history of diabetes mellitus Hypertension Heart disease Sister Family history of diabetes mellitus Son Family history of diabetes mellitus Father Family hx of colon cancer Hearing loss Hypertension Cancer Heart disease Grandfather (Maternal) Family hx of colon cancer Grandmother (Maternal) Heart disease Grandmother (Paternal) Heart disease Grandfather (Paternal) Heart disease Other No family history of adverse response to anesthesia No family history of bleeding disorder Social History Smoking Status: Never smoker Second Hand Exposure: No; Do You Dip or Chew Tobacco: No; Hx Alcohol Use: No Hx Substance Use: No Preferred Language: Chinese Communication Ability: Effective Maintenance Groundskeeper Required: No Beliefs That Will Affect Care: None marital status: Current Living Situation: Spouse Current Living Situation Comment: lives in ranch style home with current occupational status: employed and retired How many Children do You have: 0 Other Information That Helps Us Care for You: No Feels Safe at Home: Yes Safety Concerns: Feels Safe At This Time Assistive Devices: None Review of Systems Review of Systems: All systems reviewed & are unremarkable except as noted in HPI & below Physical Exam Constitutional: WD/WN, vitals as above Eyes: + anicteric sclerae; normal pupil size ENMT: external ear and nose normal, oropharynx normal Neck: no jaw pain reproducibility, normal inspection and palpation of neck Respiratory: normal respiratory effort, lungs clear to auscultation Cardiovascular: RRR, no murmur, no edema Gastrointestinal (Abdomen): normal bowel sounds, soft, nontender, no hepatosplenomegaly Musculoskeletal: Reproducible anterior shoulder pain on palpation over biceps tender but no pain on resisted elbow flexion or shoulder abduction/flexion/extension/int/ext rotation Chest pain is not reproducible Skin: no rashes, warm and dry Neurologic: moves all extremities and awake; not confused Psychiatric: A+Ox3, euthymic affect Results & Data Results & Data Vital Signs (Past 12 Hours) Vital Signs Temp Pulse Pulse Resp BP BP Pulse Ox 11/06/23 17:00 80 16 150/80 H 94 11/06/23 15:38 84 12 140/66 94 11/06/23 14:14 92 H 11/06/23 14:08 97 11/06/23 14:06 90 18 97 11/06/23 13:51 36.5 C 97 H 20 132/64 96 O2 Del Method 11/06/23 17:00 Room Air 11/06/23 15:38 Room Air 11/06/23 14:14 11/06/23 14:08 Room Air 11/06/23 14:06 Room Air 11/06/23 13:51 Room Air Laboratory Results Abnormal lab results 11/06/23 11/06/23 Range/Units 14:06 21:03 Hct 36.7 L (37.0-47.0) % MCV 76.0 L (80.0-100.0) fL RDW Coeff of Charlee 16.6 H (11.5-14.5) % MPV 8.8 L (9.4-12.4) fL Rush # (Auto) 1.23 H (0.11-0.59) K/uL Glucose 100 H (70-99(Fasting)) mg/dl POC Glucose 124 H (70-99) mg/dl Calcium 10.7 H (8.6-10.3) mg/dl Total Bilirubin 1.1 H (0.2-1.0) mg/dl C-Reactive Protein 1.39 H (0-0.5) mg/dl Diagnostic Findings SINGLE VIEW CHEST CLINICAL HISTORY: Atypical chest pain FINDINGS: An AP, portable, upright chest radiograph is compared to study dated 07/16/2023. The cardiomediastinal heart is mildly enlarged. Chronic interstitial thickening is similar to previous. There is bibasilar scarring/atelectasis. The lungs and pleural spaces are otherwise clear. No pneumothorax is seen. The skeletal structures are osteopenic. The bony thorax is grossly intact. Surgical clips are seen in the upper abdomen. IMPRESSION: No acute cardiopulmonary abnormality. CT ANGIOGRAM OF THE CHEST CLINICAL HISTORY: Atypical chest pain. Thoracic back pain. COMPARISON STUDY: Chest x-ray dated 11/06/2023. Chest CT dated 02/17/2013. TECHNIQUE: Following the IV administration of 116 cc of Optiray 320, CT angiogram of the chest was performed from the thoracic inlet to the upper abdomen utilizing the dissection protocol. Images are reviewed in the axial, sagittal, and coronal planes. 3-D MIPS images are created and assessed. IV contrast was administered without complication. A dose lowering technique was utilized adhering to the principles of ALARA. CT DOSE: 452.8 mGy.cm FINDINGS: Thyroid: Atrophic. Thoracic aorta: The thoracic aorta is normal in caliber and demonstrates standard 3-vessel arch anatomy. No dissection is seen. The arch vessels are widely patent. Pulmonary vasculature: The pulmonary trunk is normal in caliber. There are no filling defects identified in the main, lobar, or segmental pulmonary vessels to indicate pulmonary embolus. Heart: The heart is enlarged and without pericardial effusion. There is coronary artery atherosclerosis. Lungs and pleural spaces: Evaluation of the lung parenchyma is degraded by motion artifact. There is no airspace consolidation typical for pneumonia or pleural effusion. Segmental atelectasis is seen at the right lung base. There is an 11 mm left upper lobe pulmonary nodule seen on image #44. This has modestly increased in size dating back to 2012 when it measured 7 mm. A 3 mm pleural- based nodule in the left upper lobe along the major fissure on image #39 is unchanged. Mediastinum: There is no mediastinal lymphadenopathy. Malina: Clear. Axillae: There is no axillary lymphadenopathy. Upper abdomen: The liver appears steatotic and there is postsurgical change change from left lobe hepatic resection. The spleen is enlarged, measuring at least 15.2 cm in length. A small hiatal hernia is noted. Skeletal structures: The skeletal structures are osteopenic. No lytic or blastic bony lesions are seen. Degenerative change is noted in the thoracic spine. IMPRESSION: 1. Unremarkable CT angiogram of the thoracic aorta. 2. There is no evidence of pulmonary embolus in the main, lobar, or segmental pulmonary arteries. 3. Cardiomegaly. 4. There is no airspace consolidation typical for pneumonia or pleural effusion. 5. An 11 mm left upper lobe pulmonary nodule has modestly increased in size dating back to 2012. This favors a nonaggressive lesion. A slow-growing neoplasm such as carcinoid could potentially have this appearance. Nonemergent follow-up with pulmonology is recommended. 6. Splenomegaly. 7. Additional findings as above. Medications Administered ER Medications Given: Toradol 15mg IV ECG Rate (beats per minute): 91 Rhythm: normal sinus Findings: no acute ischemic change Comparison ECG Date: from (August 23, 2023) Change: no significant change Code Status & VTE Plan Code Status DNR/DNI VTE Prophylaxis Plan VTE Prophylaxis will be ordered: No PG Care Time/CCT Total # of Minutes Spent Total Time Spent with Patient: Total time spent is greater than 50% in coordination of care (as documented) at patient's floor/unit and/or counseling patient: Coding Level of Care Code 83222 INT INP/OBS CARE 3/75MIN Diagnoses Atypical chest pain R07.89 Diabetes mellitus type 2 with complications E11.8 Liver transplant recipient Z94.4
[2023-11-06 18:09] LABS: Magnesium 1.7 mg/dl (1.7-2.4)
[2023-11-06] MEDS ORDERED: GLUCOSE 40% GEL 15 GM TUBE PO PRN (18:46)
[2023-11-06] MEDS ORDERED: DEXTROSE 50% 50 ML SYRINGE IV PRN (18:46)
[2023-11-06] MEDS ORDERED: GLUCOSE 10 TAB/TUBE PO PRN (18:46)
[2023-11-06] MEDS ORDERED: GLUCAGON FOR INJ 1 MG VIAL SQ PRN (18:46)
[2023-11-06] MEDS ORDERED: CARBOHYDRATES FOR HYPOGLYCEMIA PO PRN (18:46)
[2023-11-06] MEDS: COLCHICINE 0.6 MG TAB PO STA (19:34)
[2023-11-06] MEDS: INSULIN ASPART PER UNIT CHARGE SC SCH (21:12)
[2023-11-06 21:21] LABS: C Reactive Protein 1.39 mg/dl (0-0.5)
--- NOTE | 2023-11-06 21:38 | Communication Note ---
Date of Service: November 06, 2023 Shortly after having colchicine patient started have severe subjective symptoms of her face on fire, itching all over and high anxiety (rocking back and forth in her chair). No objective rash or change in vital signs. Chest pain remains stable. Ativan prescribed for anxiety and diphenhydramine for possible allergic reaction. She denies any side effects such as nausea, vomiting, diarrhea, abdominal cramping or myalgias. Cyclosporine is a P-glycoprotein/ABCB1 Inhibitor and can increase colchicine therefore patient prescribed a higher dose than recommended but significantly lower than doses concerned with fatal overdoses or severe side effects. Burning, crawling or tingling of skin is a case reported side effect although no listed on Lexidrug. Suspect she is having a side effect of colchicine therefore will stop any further doses. Start IV fluids in case any diarrhea develops (in first 2-24 hours). Will defer any further treatment for pericarditis at this time.
[2023-11-06] MEDS: LORazepam 1 MG/1 ML SYR ED Inj Use IV STA (21:40)
[2023-11-06] MEDS: diphenhydrAMINE 50 MG/ML VIAL IV STA (21:46)
[2023-11-06] MEDS ORDERED: NON-FORMULARY MEDICATION (Biotin 1 mg capsule) PO SCH (22:14)
[2023-11-06] MEDS ORDERED: LORazepam 0.5 MG in SYRINGE 0.25 ML IV PRN (22:55)
[2023-11-06] MEDS: LORazepam 0.5 MG in SYRINGE 0.25 ML IV ONE (23:27)
[2023-11-06] MEDS: cycloSPORINE (SANDIMMUNE) 25 MG CAP PO SCH (23:44)
[2023-11-06] MEDS: VALSARTAN 80 MG TAB PO SCH (23:45)
[2023-11-06] MEDS: ATORVASTATIN 20 MG TAB PO SCH (23:45)
[2023-11-06] MEDS: SERTRALINE HCL 100 MG TABLET PO SCH (23:45)
[2023-11-06] MEDS: PREGABALIN 50 MG CAP PO SCH (23:47)
[2023-11-07] MEDS: LACTATED RINGER'S 1,000 ML IV SCH (00:30)
[2023-11-07 06:22] LABS: Hematocrit (blood only) 32.2 % (37.0-47.0); Hemoglobin 10.8 g/dl (12.0-16.0); Mean Corpuscular Hemoglobin 25.2 pg (25.0-34.0); Mean Corpuscular Hgb Conc 33.5 g/dL (32.0-36.0); Mean Corpuscular Volume 75.1 fL (80.0-100.0); Mean Platelet Volume 9.1 fL (9.4-12.4); Platelet Count 185 K/uL (130-400); RDW Coefficient of Variation 16.7 % (11.5-14.5); RDW Standard Deviation 45.1 fL (36.4-46.3); Red Blood Count 4.29 M/uL (4.20-5.40); White Blood Count 3.18 K/ul (4.8-10.8)
[2023-11-07] MEDS: LEVOTHYROXINE SODIUM 100 MCG TABLET PO SCH (06:26)
[2023-11-07 06:52] LABS: Basophils # (auto) 0.03 K/uL (0.00-0.20); Basophils % (auto) 0.9 %; Eosinophils # (auto) 0.12 K/uL (0.00-0.50); Eosinophils % (auto) 3.8 %; Immature Granulocytes # (auto) 0.02 K/uL (0.01-0.20); Immature Granulocytes % (auto) 0.6 %; Lymphocytes # (auto) 1.22 K/uL (1.20-3.40); Lymphocytes % (auto) 38.4 %; Monocytes # (auto) 0.65 K/uL (0.11-0.59); Monocytes % (auto) 20.4 %; Neutrophils # (auto) 1.14 K/uL (1.40-6.50); Neutrophils % (auto) 35.9 %
[2023-11-07 07:09] LABS: Albumin Globulin Ratio 1.9 (0.9-2); BUN Creatinine Ratio 14.4 (10-20); Bilirubin,Total 0.9 mg/dl (0.2-1.0); Calcium 9.9 mg/dl (8.6-10.3); Creatinine Clr Calc Pharmacy 46.4 ml/min; Est GFR (Non-African American) 54.4 ml/min; Globulin 2.1 gm/dl (2.5-4.0); Total Protein 6.1 gm/dl (6.0-8.3)
[2023-11-07 07:17] LABS: Troponin I High Sensitivity 3.4 pg/ml (0-14)
[2023-11-07] MEDS: LANTUS PER UNIT CHARGE SC SCH (08:21)
[2023-11-07] MEDS: FERROUS SULFATE 325 MG TAB PO SCH (08:23)
[2023-11-07] MEDS: PANTOprazole 40 MG TAB PO SCH (08:23)
[2023-11-07] MEDS: amLODIPine BESYLATE 5 MG TAB PO SCH (08:23)
[2023-11-07] MEDS ORDERED: LANTUS PER UNIT CHARGE SC SCH (09:00)
--- NOTE | 2023-11-07 10:15 | Hospitalist Progress Note ---
Date of Service November 07, 2023 Assessment & Plan (1) Atypical chest pain: Plan: 68 y/o with history of liver transplant for MAFLD a year ago and history of remote pericarditis (20 years ago) admitted with right sided chest pain Pain is right anterior and right upper back, yesterday was radiating to right jaw/ear. The radiation has resolved but currently with milder persistent right sided pain. Pain is worse when she reclines and better sitting upright. No nausea or diaphoresis but did have some shortness of breath. Had EKGs without GREYSON, inferior q's present since at least 08/2023 (last EKG a year prior). She did have cardiac workup prior to liver transplant last summer. She thinks pain is similar to previous pericarditis. She has been doing PT recently for neuropathy but LE exercises only. No unusual UE activity or strain. A few weeks ago she stopped everolimus and prednisone 5 mg for OLT and immunosuppression was reduced to CSA 50 mg bid. Liver function is good based on labs last night. She does have some tenderness at costochondral joints bilateral sternum and some anterior and posterior chest wall tenderness. -seems unlikely to be pericarditis based on no EKG changes, right sided pain, no pericardial effusion on CT but Echo pending. she had a dose of toradol, had a bad reaction to 1.2 mg colchicine last night -serial trops normal, no EKG changes to suggest ACS. Does not seem suspicious for angina. -CTA negative for dissection, PE or other findings to explain -she does have right chest wall and costochondral tenderness suggestive of MSK cause, I wonder if she is having some emerging joint pain after stopping prednisone recently -avoid NSAIDS with OLT, schedule low dose APAP and start topical analgesics voltaran, lidoderm -she has had recurrence of right neck pain radiating to R ear, relieved by some neck positions, may be radicular pain from C2, C3. Has lots of cervical DJD on neck CT done in 2020. Since she is immunosuppressed with transplant and this is new complaint, will image with neck MRI, could also be done as expedited outpatient study addendum late in day: TTE without any pericardial effusion, normal LV systolic function no regional wall motion abnormalities MRI C-spine: Mild DJD no significant findings (2) Diabetes mellitus type 2 with complications: Plan: HbA1C 5.6 ?overtreatment Reduce Lantus in half to 15 units daily due to low HbA1C and likely to be eating less carbohydrates in hospital Novolog: --Goal BSG Range: Low 110 mg/dL, High 140 mg/dL --Correction Factor: 40 mg/dL/unit --Carbohydrate ratio = 13 g/unit --BSGs ACHS if eating, q6h if npo (3) Liver transplant recipient: Plan: Secondary to REBOLLAR performed in September 2022 LFTs coags reassuring Discussed with liver transplant team on admission, [facility] Continue cyclosporine Plan HTN: continue amlodipine and valsartan Diabetic neuropathy: continue pregabalin Hypothyroidism: TSH low, levothyroxine recently reduced by endocrinology 125 mcg to 100mcg PO daily 11/04 therefore will continue on this dose GERD - continue pantoprazole VTE Prophylaxis - low risk Diet - heart healthy, T2DM Disposition - transfer to [facility] soon Admission and Anticipated Discharge Date Admission Date: November 06, 2023 Subjective continues to have right upper chest anterior and posterior pain, aggravated by lying back and better sitting up no neck pain this morning but in afternoon developed same pain R neck radiating to R ear had some feeling of shortness of breath during pain last night, none this am Physical Exam 2 Physical Exam: PHYSICAL EXAMINATION Last 24h vital signs reviewed, see documentation in flowsheet General: comfortable appearing, no distress HEENT: Normocephalic, atraumatic, pupils round and equal, sclerae anicteric, no conjunctival injection, moist mucus membranes Lungs: Normal respiratory effort. Clear to auscultation bilaterally. No RRW Heart: Regular rate and rhythm, no murmurs. No JVD she does have some tenderness anterior and posterior right upper chest wall as well as parasternally at the costochondral joints bilaterally Abdomen: Soft, nontender, nondistended. Bowel sounds present. Extremities: Warm, dry, well-perfused. No extremity edema. Neuro: Alert and oriented x 4, face symmetric, moves 4 extremities well Psych: Normal affect and behavior Results & Data Results & Data Vital Signs (Past 12 Hours) Vital Signs Temp Pulse Pulse Resp BP Pulse Ox O2 Del Method 11/07/23 07:30 72 11/07/23 07:07 36.7 C 72 17 125/71 91 Room Air 11/07/23 03:46 36.5 C 75 18 132/69 92 Room Air 11/06/23 22:47 75 11/06/23 22:18 36.6 C 79 18 129/79 100 Room Air 11/06/23 22:14 36.6 C 79 18 129/79 100 Room Air Laboratory Results 11/07/23 05:24 11/07/23 05:24 serial high-sensitivity troponin was negative PG Care Time/CCT Total # of Minutes Spent Total Time Spent with Patient: Total time spent is greater than 50% in coordination of care (as documented) at patient's floor/unit and/or counseling patient: Coding Level of Care Code 02880 SUB INP/OBS CARE 3/50MIN Diagnoses Atypical chest pain R07.89 Diabetes mellitus type 2 with complications E11.8 Liver transplant recipient Z94.4
[2023-11-07] MEDS: ACETAMINOPHEN 500 MG TAB PO SCH (11:19)
[2023-11-07] MEDS: LIDOCAINE 5% 1 PATCH TD SCH (11:19)
[2023-11-07] MEDS: DICLOFENAC SOD 1% GEL 100 GM TUBE EXT PRN (12:37)
[2023-11-07] MEDS: LORazepam 0.5 MG in SYRINGE 0.25 ML IV STA (14:11)
[2023-11-07] MEDS: GADOBUTROL 30ML VIAL IV ONE (15:36)
--- NOTE | 2023-11-07 16:56 | Magnetic Resonance Report ---
CERVICAL SPINE MRI WITH AND WITHOUT CONTRAST HISTORY: R neck to ear pain, liver transplant/immunosupp TECHNIQUE: Multiplanar multisequence MRI of the cervical spine was performed both before and after th e use of intravenous contrast. COMPARISON STUDY: CT cervical spine 05/15/2020. FINDINGS: No fracture or subluxation within the cervical spine. Prevertebral soft tissues and the C1- C2 interval are intact. The visualized posterior fossa is unremarkable. The cervical spinal cord is n ormal in course, caliber, and signal intensity. No significant disc space narrowing. Postcontrast seq uences show no areas of abnormal enhancement. Motion artifact on the axial sequences results in subop timal evaluation. Mild facet degenerative changes seen throughout the cervical spine. C2-C3: No significant central canal or neural foraminal narrowing. C3-C4: No significant central canal or right-sided neural foraminal narrowing. This mild left-sided n eural foraminal narrowing due to the uncovertebral and facet hypertrophy. C4-C5: No significant central canal or neural foraminal narrowing. C5-C6: Tiny broad-based posterior disc osteophyte complex without significant central canal or neural foraminal narrowing. C6-C7: Small broad-based posterior disc osteophyte complex resulting in partial effacement of the ant erior thecal sac without cord deformity. No significant central canal narrowing. There is mild left-s ided neural foraminal narrowing due to the uncovertebral and facet hypertrophy. C7-T1: No significant central canal or neural foraminal narrowing. IMPRESSION: 1. No fracture or subluxation within the cervical spine. 2. Normal cervical spinal cord. 3. Mild degenerative changes as described above. ACT 112: Negative or not required by law. Electronically signed by: Ivan Veronica M.D. 11/07/2023 4:55 PM
[2023-11-07] MEDS ORDERED: MoRPHine SULFATE 2 MG/ML CARP IV PRN (18:51)
--- NOTE | 2023-11-07 18:58 | Communication Note ---
Date of Service: November 07, 2023 [address] with [address] Storey who spoke with transplant program at [facility] Possible pericarditis vs other, start trial of prednisone 60 mg x 3d, 50 mg x 3d, taper Added IV morphine / oxycodone at low doses for pain since continues with significant R neck/jaw/ear pain Increased glargine from 15u to home dose 30 qAM likely will need to increase pre meal doses tomorrow for steroid effect
[2023-11-07] MEDS: predniSONE 20 MG TAB PO SCH (20:01)
[2023-11-07] MEDS: PREGABALIN 100 MG CAP PO SCH (20:07)
[2023-11-07] MEDS: oxyCODONE HCL IR 5 MG TAB (IMMEDIATE RELEASE) PO PRN (20:14)
[2023-11-07] MEDS: ZOLPIDEM TARTRATE 5 MG TAB PO PRN (22:00)
--- NOTE | 2023-11-07 22:48 | Cardiology Consultation ---
Date of Consultation November 07, 2023 Assessment & Plan (1) Atypical chest pain: (2) Liver transplant recipient: (3) Coronary artery calcification seen on CAT scan: (4) Primary hyperparathyroidism: (5) Hyperlipidemia: (6) Hypertension: (7) Diabetes mellitus type 2 with complications: (8) Abnormal electrocardiogram [ECG] [EKG]: Plan After discussion with her transplant center, I would recommend emperic rx with prednisone for now. Eventually, she will need eval for CAD-would consider doing stress eCHO, but this can be done as OP after we see how she does on steroids. Her history of remote pericarditis is interesting, but not sure if related. I will follow with her in the hospital and would like to follow up post DC. Thank you for allowing me to participate in the care of this very nice lady. History of Present Illness Reason for Consultation: chest pain Attending Physician: Yajaira French MD History of Present Illness Aurelia Kurtz is a very nice 68 year old female who presents to the ER with chest pain for the last several days. She reports symptoms started at 4am initially as right shoulder pain but then across her chest and right side of her jaw and up to her ear, sharp pleuritic chest pain, without relief since 4am, severity 12/10 when she came to the ER (improved with Toradol and sitting up, significant positional nature with worse on lying flat (had to sit up and felt short of breath while having CT). She has Barretts esophagus and takes pantoprazole for this without reflux problems on this medication and she feels this pain is different to her reflux. The CP has been persistant throught the hospitalization, but is tolerable at this time. She has a notably history of liver transplant in September 2022 due to REBOLLAR. Initially on everolimus and prednisone but switched three weeks ago to cyclosporine for steroid sparing. I called her [facility] transplant team and spoke w darío Jerez. We reviewed the reason for the changes in medications and that potentially stopping the prednisone could account for symptoms. We discussed doing a steroid taper on her. I would also mention that Aurelia reports having pericarditis about 20 years ago, but does not remember the details of this condition or how it was treated. She does not recall having cardiac testing prior to her transplant and given her DM, at some point in the future, we discussed doing stress testing on her. Her ECG shows possible OLD inferior DE-but this is not new. ECHO shows LVH normal EF diastolic dysfunction. Allergies Allergy/AdvReac Type Severity Reaction Status Date / Time bee venom protein (honey bee) Allergy Severe Anaphylaxis Verified 11/06/23 17:59 Influenza Virus Vaccines Allergy Severe Anaphylaxis Verified 11/06/23 17:59 tetracycline AdvReac Severe Severe Verified 11/06/23 17:59 stomach pains Home Medications Medication Instructions Recorded Confirmed Type biotin 1 mg capsule 1 mg PO BID 02/02/23 11/06/23 History sertraline 100 mg tablet 100 mg PO QPM 02/02/23 11/06/23 History amlodipine 10 mg tablet 10 mg PO QAM 04/21/23 11/06/23 History ferrous sulfate 325 mg (65 mg 325 mg PO DAILY 08/31/23 11/06/23 History iron) tablet insulin regular human 100 unit/mL 5 unit subcut DAILY PRN Blood 09/07/23 11/06/23 History (3 mL) subcutaneous pen (Novolin R Glucose Level FlexPen) semaglutide 0.25 mg or 0.5 mg (2 0.5 mg (0.736 mL) subcut Q7D #9 mL 10/05/23 11/06/23 Rx mg/3 mL) subcutaneous pen injector (Ozempic) pregabalin 50 mg capsule (Lyrica) 50 mg PO HS #90 caps 10/12/23 11/06/23 Rx FreeStyle Lisy 3 Sensor #6 ea 10/13/23 10/18/23 Rx (blood-glucose sensor) cyclosporine 25 mg capsule 50 mg PO BID 10/18/23 11/06/23 History uijeootd-nrg-lhfws ac 400 1 tab PO QAM 10/18/23 11/06/23 History mcg-calcium carb 500 mg-vit K1 20 mcg tablet (Women's 50 Plus Multivitamin) pantoprazole 40 mg tablet,delayed 40 mg PO DAILY 10/18/23 11/06/23 History release (Protonix) valsartan 80 mg tablet 80 mg PO QPM #30 tabs 10/22/23 11/06/23 Rx levothyroxine 100 mcg tablet 100 mcg PO DAILY #30 tabs 11/05/23 11/06/23 Rx pen needle, diabetic 32 gauge x #100 ea 11/05/23 Rx 5/32" (BD Ultra-Fine Lani Pen Needle) atorvastatin 20 mg tablet 20 mg PO HS 11/06/23 11/06/23 History insulin glargine 100 unit/mL (3 30 unit subcut QAM 11/06/23 11/06/23 History mL) subcutaneous pen (Basaglar KwikPen U-100 Insulin) Patient History Medical History Sinusitis Encephalopathy, hepatic Left wrist sprain Benign essential tremor Generalized weakness LISA (acute kidney injury) Moeller esophagus Portal hypertension Neutropenic typhlitis Pancytopenia Hyperammonemia Hepatic encephalopathy Abdominal pain Hypothyroidism Liver disease Weakness Hyperbilirubinemia REBOLLAR (nonalcoholic steatohepatitis) History of colon polyps BENIGN Depression UTI (urinary tract infection) HX, JULY 2021 -HOSPITALIZED FOR , NOW RESOLVED DURING TESTING FOUND 2 LUMPS IN INTESTINES...REASON FOR UPCOMING COLONOSCOPY History of fractured vertebra CURRENT, HX FALL JULY 2021 - FELL OF THE TOILET - NO INTERVENTION AT PRESENT/ DR AMY [facility]PCOMING [facility] SE[facility] FOR TO DISCUSS TX OPTIONS - POTENTIAL BACK BRACE Urge incontinence 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 Abnormal finding on breast imaging Urinary tract infection Fracture of fourth lumbar vertebra Chronic diarrhea SOMETIMES - when takes lactulose Benign paroxysmal positional vertigo of left ear Sensorineural hearing loss (SNHL) of both ears asymmetrical, left WRS Seasonal allergies Thrombocytopenia Syncope Epistaxis Arthritis History of kidney stones GERD (gastroesophageal reflux disease) Anemia HX Temporomandibular joint disorder NO LOCKING/WEARS 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 Anxiety and depression Diabetes mellitus, type 2 GI bleed RECENT HOSPITALIZED - PT DENIES HX GI BLEED Colitis with rectal bleeding Spleen enlarged MONITORS - PT REPORTS FROM THE REBOLLAR 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 Hiatal hernia Stucco keratoses Heel spur B/L feet Moeller's esophagus with esophagitis Surgical History H/O thumb surgery RT/LEFT JOINT REPAIR History of cystoscopy History of appendectomy History of tooth extraction History of tonsillectomy and adenoidectomy H/O total hysterectomy History of arthroscopy of knee Left Knee - meniscus/cartilage History of esophagogastroduodenoscopy (EGD) History of colonoscopy Hx of cholecystectomy Family History Brother Coronary heart disease Heart disease Lupus Mother Family history of diabetes mellitus Hypertension Heart disease Sister Family history of diabetes mellitus Son Family history of diabetes mellitus Father Family hx of colon cancer Hearing loss Hypertension Cancer Heart disease Grandfather (Maternal) Family hx of colon cancer Grandmother (Maternal) Heart disease Grandmother (Paternal) Heart disease Grandfather (Paternal) Heart disease Other No family history of adverse response to anesthesia No family history of bleeding disorder Social History Smoking Status: Never smoker Second Hand Exposure: No; Do You Dip or Chew Tobacco: No; Hx Alcohol Use: No Hx Substance Use: No Preferred Language: Tuvaluan Communication Ability: Effective Grain Commodity Manager Required: No Beliefs That Will Affect Care: None marital status: Current Living Situation: Spouse Current Living Situation Comment: lives in ranch style home with current occupational status: employed and retired How many Children do You have: 0 Other Information That Helps Us Care for You: No Feels Safe at Home: Yes Safety Concerns: Feels Safe At This Time Assistive Devices: None Review of Systems Review of Systems: All systems reviewed & are unremarkable except as noted in HPI & below Physical Exam Physical Exam: AAO in NAD Respiratory: normal respiratory effort, lungs clear to auscultation Cardiovascular: Rate/Rhythm: regular rate and regular rhythm Palpation: normal PMI murmur of aortic sclerosis noted no rubs appreciated Gastrointestinal (Abdomen): normal bowel sounds, soft, nontender, no hepatosplenomegaly Neurologic: PERRL, EOMI, accommodation nl, no face palsy, no dysarthria Results & Data Vital Signs (Past 12 Hours) Vital Signs Temp Pulse Pulse Pulse Resp BP Pulse Ox 11/07/23 20:05 37 C 81 20 127/72 90 11/07/23 15:27 77 11/07/23 11:20 36.9 C 78 17 122/68 95 O2 Del Method 11/07/23 20:05 Room Air 11/07/23 15:27 11/07/23 11:20 Room Air Laboratory Results Abnormal lab results 11/07/23 11/07/23 Range/Units 05:24 20:19 WBC 3.18 L (4.8-10.8) K/ul Hgb 10.8 L (12.0-16.0) g/dl Hct 32.2 L (37.0-47.0) % MCV 75.1 L (80.0-100.0) fL RDW Coeff of Charlee 16.7 H (11.5-14.5) % MPV 9.1 L (9.4-12.4) fL Neut # (Auto) 1.14 L (1.40-6.50) K/uL [place] # (Auto) 0.65 H (0.11-0.59) K/uL POC Glucose 110 H (70-99) mg/dl Globulin 2.1 L (2.5-4.0) gm/dl Medications Administered CT scan chest negative for PE; coronary artery calcification noted no pericardial effusion ECHO-no effusion (5) Hyperlipidemia Hyperlipidemia type: unspecified Qualified Code(s): E78.5 - Hyperlipidemia, unspecified (6) Hypertension Hypertension type: primary hypertension Qualified Code(s): I10 - Essential (primary) hypertension
[2023-11-08] MEDS: LANTUS PER UNIT CHARGE SC SCH (08:49)
--- NOTE | 2023-11-08 08:54 | Cardiology Progress Note ---
Date of Service November 08, 2023 Assessment & Plan (1) Atypical chest pain: (2) Liver transplant recipient: (3) Coronary artery calcification seen on CAT scan: (4) Primary hyperparathyroidism: (5) Hyperlipidemia: (6) Hypertension: (7) Diabetes mellitus type 2 with complications: (8) Abnormal electrocardiogram [ECG] [EKG]: Plan Ms. Kurtz's care was discussed with her transplant center and empiric prednisone was started. Her description of positional sob and chest discomfort sound like pericarditis but the picture is muddied by her feeling that her neck and chest are tender and especially over the neck the discomfort is reproducible to palpation. She may be developing a viral infection which often coincides with pericarditis. Alternatively the cough is due to the atelectasis seen on CT. She maybe guarding her breathing given the chest pain and not taking deep breaths. I recommend an incentive spirometer for now. She has coronary atherosclerosis on her CT. She is already on statin therapy. A baby aspirin could be considered. No WMA on echo or reduction in EF. Admission and Anticipated Discharge Date Admission Date: November 06, 2023 Subjective Ms Kurtz has developed a dry cough this morning. No aches, chills or fevers. Her sob is somewhat improved. It continues to be worse laying back than forward. Her right neck and chest pain persists. It does feel reproducible to palpation. EKG this morning unchanged from admission. Review of Systems Review of Systems: All systems reviewed & are unremarkable except as noted in HPI & below Physical Exam Constitutional: WD/WN, vitals as above Respiratory: normal respiratory effort, lungs clear to auscultation Cardiovascular: RRR, no murmur, no edema Skin: no rashes, warm and dry Neurologic: moves all extremities and awake Psychiatric: A+Ox3, euthymic affect Results & Data Vital Signs (Past 12 Hours) Vital Signs Temp Pulse Resp BP Pulse Ox O2 Del Method 11/08/23 07:55 36.8 C 79 18 118/72 96 Room Air 11/08/23 07:48 Room Air (5) Hyperlipidemia Hyperlipidemia type: unspecified Qualified Code(s): E78.5 - Hyperlipidemia, unspecified (6) Hypertension Hypertension type: primary hypertension Qualified Code(s): I10 - Essential (primary) hypertension
[2023-11-08 10:00] LABS: Appearance Urine Cloudy (Clear); Bacteria Urine Automated 4+ (None Seen); Bilirubin Urine Negative (Negative); Blood Urine Negative (Negative); Cast Urine Automated 0-2 /lpf (0-2); Color Urine Yellow; Epithelial Cell Urine Auto 0-2 /hpf (0-2); Glucose Urine UA Negative (Negative); Ketones Urine Negative (Negative); Leukocyte Esterase Urine Trace (Negative); Nitrite Urine Negative (Negative); Protein Urine 1+ (Negative); RBC Urine Automated 0-2 /hpf (0-2); Specific Gravity Urine 1.015 (1.000-1.030); Urobilinogen Urine Negative (Negative)
--- NOTE | 2023-11-08 11:51 | Hospitalist Progress Note ---
Date of Service November 08, 2023 Assessment & Plan (1) Atypical chest pain: Plan: 68 y/o with history of liver transplant for MAFLD a year ago and history of remote pericarditis (20 years ago) admitted with right sided chest pain which is positional being worse lying down, right neck pain radiating to right ear see my progress note 11/06 for further history Symptoms did seem to emerge after decrease in her immunosuppression 3 weeks ago, she was previously on everolimus and prednisone 5 mg daily which was changed to cyclosporine 50 mg twice daily consulted cardiology because of potential for pericarditis. The positional chest pain could be pericardial, however, does not really explain the right- sided neck pain/ear pain. TTE 11/06 without any pericardial effusion, normal LV systolic function no regional wall motion abnormalities, serial EKGs including this morning which I personally reviewed showed normal sinus rhythm without ST elevations or depressions, old inferior infarct. High-sensitivity troponins were negative - under trial of prednisone taper for potential pericarditis 50 mg daily x 3 days, 40 mg daily x 3 days etc. this was discussed with her transplant program 11/06. - notably she had highly symptomatic reaction after 1 dose of colchicine on the night of admission. NSAIDs are contraindicated with liver transplant - she will follow-up with Dr. Storey as an outpatient and consider stress testing at that time - chest pain seems slightly better 11/07 and we will continue the treatment above right-sided neck pain radiating to right ear - this is a little bit more mysterious. She has no URI symptoms other than dry cough which just started yesterday and may be atelectatic - pain is reproducible upon palpation just posterior to her sternocleidomastoid muscle, and relieved by some neck positions as well - could be C3, C4 radicular pain MRI C-spine as detailed above, has some mild degenerative disease but no significant foraminal or cervical spinal stenosis - will obtain carotid duplex in case this is a vascular issue for example dissection, however pain is really posterior to the carotid and she has had no stroke or TIA-like symptoms overall for pain control we will continue scheduled acetaminophen she reports her transplant program took told her to only take 500 mg daily, I increased her pregabalin to 100 mg at bedtime, oxycodone as needed, heat pack, avoid NSAIDs as above with continued improvement I anticipate she may be able to discharge tomorrow morning (2) Diabetes mellitus type 2 with complications: Plan: HbA1C 5.6 ?overtreatment at home takes 30 units of glargine in the morning and is also on Ozempic, she does have some short acting insulin and has used it in the past but not currently needing it for steroid induced hyperglycemia I have increased her glargine to 40 units every morning and added Premeal/correctional aspart at ratio of 30 and 9 consulted telehealth nurse educator to see if she can help us work out insulin scale for prednisone taper (3) Liver transplant recipient: Plan: Secondary to MASH performed in September 2022 LFTs coags reassuring for good function of graft Discussed with liver transplant team on admission, [facility] Continue cyclosporine Plan dysuriashe had some hesitancy and pain with voiding today, ordered UA which is mildly abnormal and 4+ bacteria, potentially could be UTI start Keflex 500 mg p.o. twice daily and await urine culture HTN: continue amlodipine and valsartan Diabetic neuropathy: continue pregabalin Hypothyroidism: TSH low, levothyroxine recently reduced by endocrinology 125 mcg to 100mcg PO daily 11/04 therefore will continue on this dose GERD - continue pantoprazole VTE Prophylaxis - start enoxaparin Diet - heart healthy, T2DM Admission and Anticipated Discharge Date Admission Date: November 06, 2023 Subjective she does feel a little bit better today she had a dose of 50 mg p.o. prednisone last night and this morning continues to have right sided neck pain it is radiating to the right ear, it is on a track just posterior to the sternocleidomastoid muscle, it was aggravated by my palpation of the area continues to have bilateral upper chest pain mostly right-sided and also toward right posterior chest, this is aggravated by lying back and improved with sitting upright since yesterday she has a dry cough feels like her voice is a little hoarse, no nasal stuffiness or congestion she does not feel like her ear is congested she notices that her hand arthritis feels a lot better today, her costochondral joints are no longer tender on palpation Physical Exam 2 Physical Exam: PHYSICAL EXAMINATION Last 24h vital signs reviewed, see documentation in flowsheet General: comfortable appearing, no distress, sitting up in bed HEENT: Normocephalic, atraumatic, pupils round and equal, sclerae anicteric, no conjunctival injection, moist mucus membranes her right ear appears normal no pain on manipulation of her ear or pressure on mastoid process, her tenderness is just posterior posterior to the sternocleidomastoid muscle, palpation of this area resulted in increased pain her carotid pulse is brisk no bruit Lungs: Normal respiratory effort. Clear to auscultation bilaterally. No RRW Heart: Regular rate and rhythm, no murmurs. No JVD parasternal tenderness at costochondral joints has resolved Abdomen: Soft, nontender, nondistended. Bowel sounds present. Extremities: Warm, dry, well-perfused. No extremity edema. Neuro: Alert and oriented x 4, face symmetric, moves 4 extremities well Psych: Normal affect and behavior Results & Data Results & Data Vital Signs (Past 12 Hours) Vital Signs Temp Pulse Resp BP Pulse Ox O2 Del Method 11/08/23 07:55 36.8 C 79 18 118/72 96 Room Air 11/08/23 07:48 Room Air Laboratory Results 11/07/23 05:24 11/07/23 05:24 ESR was 25, CRP was 1.39 Diagnostic Findings Cervical Spine MRI 11/07/23 12:50 CERVICAL SPINE MRI WITH AND WITHOUT CONTRAST HISTORY: R neck to ear pain, liver transplant/immunosupp TECHNIQUE: Multiplanar multisequence MRI of the cervical spine was performed both before and after the use of intravenous contrast. COMPARISON STUDY: CT cervical spine 05/15/2020. FINDINGS: No fracture or subluxation within the cervical spine. Prevertebral soft tissues and the C1-C2 interval are intact. The visualized posterior fossa is unremarkable. The cervical spinal cord is normal in course, caliber, and signal intensity. No significant disc space narrowing. Postcontrast sequences show no areas of abnormal enhancement. Motion artifact on the axial sequences results in suboptimal evaluation. Mild facet degenerative changes seen throughout the cervical spine. C2-C3: No significant central canal or neural foraminal narrowing. C3-C4: No significant central canal or right-sided neural foraminal narrowing. This mild left-sided neural foraminal narrowing due to the uncovertebral and facet hypertrophy. C4-C5: No significant central canal or neural foraminal narrowing. C5-C6: Tiny broad-based posterior disc osteophyte complex without significant central canal or neural foraminal narrowing. C6-C7: Small broad-based posterior disc osteophyte complex resulting in partial effacement of the anterior thecal sac without cord deformity. No significant central canal narrowing. There is mild left-sided neural foraminal narrowing due to the uncovertebral and facet hypertrophy. C7-T1: No significant central canal or neural foraminal narrowing. IMPRESSION: 1. No fracture or subluxation within the cervical spine. 2. Normal cervical spinal cord. 3. Mild degenerative changes as described above. ACT 112: Negative or not required by law. Electronically signed by: Ivan Veronica M.D. 11/07/2023 4:55 PM PG Care Time/CCT Total # of Minutes Spent Total Time Spent with Patient: Total time spent is greater than 50% in coordination of care (as documented) at patient's floor/unit and/or counseling patient: Coding Level of Care Code 01816 SUB INP/OBS CARE 3/50MIN Diagnoses Atypical chest pain R07.89 Diabetes mellitus type 2 with complications E11.8 Liver transplant recipient Z94.4
--- NOTE | 2023-11-08 14:44 | Ultrasound Report ---
ULTRASOUND OF THE CAROTID ARTERIES CLINICAL HISTORY: Right-sided neck pain. COMPARISON STUDY: No priors. TECHNIQUE: Real-time, grayscale, and color Doppler sonography of the carotid arteries is performed. I mages are reviewed in the transverse and longitudinal planes. FINDINGS: The carotid arteries are patent bilaterally and demonstrate antegrade flow. There is no significant a therosclerotic plaque identified. Normal doppler arterial waveforms are seen throughout. Velocity benjamín surements are listed below. Common carotid peak systolic velocity (cm/sec): RIGHT: 61 LEFT: 53 ICA proximal peak systolic velocity (cm/sec): RIGHT: 46 LEFT: 57 ICA mid peak systolic velocity (cm/sec): RIGHT: 52 LEFT: 43 ICA distal peak systolic velocity (cm/sec): RIGHT: 39 LEFT: 62 ICA/CC peak systolic ratio: RIGHT: 0.9 LEFT: 1.2 Antegrade flow was shown in the vertebral arteries. The external carotid arteries are patent. IMPRESSION: 1. There is no sonographic evidence of hemodynamically significant stenosis in the right or left liu tid arterial system. 2. Antegrade flow is shown in the vertebral arteries. ACT 112: Negative or not required by law. Electronically signed by: Parveen Candelaria M.D. 11/08/2023 2:43 PM
[2023-11-08] MEDS: cephALEXin 500 MG CAP PO SCH (14:56)
[2023-11-08] MEDS ORDERED: ENOXAPARIN INJ 40 MG/0.4 ML SYR SQ SCH (15:00)
[2023-11-08] MEDS: ENOXAPARIN INJ 40 MG/0.4 ML SYR SQ SCH (16:05)
[2023-11-09] MEDS: ZOLPIDEM TARTRATE 5 MG TAB PO ONE (01:12)
[2023-11-09] MEDS: LANTUS PER UNIT CHARGE SC SCH (08:22)
[2023-11-09] MEDS: ACETAMINOPHEN 500 MG TAB PO SCH (08:27)
--- NOTE | 2023-11-09 12:41 | Cardiology Progress Note ---
Date of Service November 09, 2023 Assessment & Plan (1) Atypical chest pain: (2) Liver transplant recipient: (3) Coronary artery calcification seen on CAT scan: (4) Primary hyperparathyroidism: (5) Hyperlipidemia: (6) Hypertension: (7) Diabetes mellitus type 2 with complications: (8) Abnormal electrocardiogram [ECG] [EKG]: Plan Ms. Winchester care was discussed with her transplant center and empiric prednisone was started. Her description of positional sob and chest discomfort sound like pericarditis but the picture is muddied by her feeling that her neck and chest are tender and especially over the neck the discomfort is reproducible to palpation. She is having some relief of her pain today. She continues to have a cough but no other viral symptoms. This may be secondary to atelectasis as seen on her CT. Continue IS. She has coronary atherosclerosis on her CT. She is already on statin therapy. A baby aspirin could be considered. This could wait until after her steroid taper given her history of Moeller's esophagus and GI bleed to avoid gastritis. No WMA on echo or reduction in EF. Admission and Anticipated Discharge Date Admission Date: November 08, 2023 Subjective Ms. Winchester chest and neck pain is a bit better. She is no longer short of breath. Review of Systems Review of Systems: All systems reviewed & are unremarkable except as noted in HPI & below Physical Exam Constitutional: WD/WN, vitals as above Respiratory: normal respiratory effort, lungs clear to auscultation Cardiovascular: RRR, no murmur, no edema Skin: no rashes, warm and dry Neurologic: moves all extremities and awake Psychiatric: A+Ox3, euthymic affect Results & Data Vital Signs (Past 12 Hours) Vital Signs Temp Pulse Resp BP Pulse Ox O2 Del Method 11/09/23 07:27 36.6 C 61 19 124/70 99 Room Air (5) Hyperlipidemia Hyperlipidemia type: unspecified Qualified Code(s): E78.5 - Hyperlipidemia, unspecified (6) Hypertension Hypertension type: primary hypertension Qualified Code(s): I10 - Essential (primary) hypertension
--- NOTE | 2023-11-09 21:20 | Hospitalist Progress Note ---
Date of Service November 09, 2023 Assessment & Plan (1) Atypical chest pain: Plan: history of remote pericarditis (20 years ago) now with atypical right-sided cp that was positional & pleuritic currently on prednisone taper for potential pericarditis 50 mg daily x 3 days, 40 mg daily x 3 days, etc. prior attending discussed this with her transplant program 11/07/23 pain improved with steroids apparently had [facility] appreciate [facility] consultation they are planning outpatient stress to be complete right neck pain with radiation to right ear -- not explained by pericarditis, however consider soft tissue neck CT tomorrow if pain still present c-spine MRI findings noted (DJD) but doubt explains her pain (2) Anterior neck pain: Plan: see above in #1 (3) Diabetes mellitus type 2 with complications: Plan: HbA1C 5.6% anemia could be causing such to be inaccurate remains on lantus/novolog adjust as needed (4) Liver transplant recipient: Plan: Secondary to REBOLLAR performed in September 2022 at [facility] LFTs stable Prior attending discussed her case with liver transplant team on admission Continue cyclosporine 50mg BID (5) UTI (urinary tract infection): Plan: 2nd GNR cont keflex follow culture UTI is uncomplicated Plan HTN: continue amlodipine and valsartan Diabetic neuropathy: continue pregabalin Hypothyroidism: TSH low, levothyroxine recently reduced by endocrinology from 125 mcg to 100mcg PO daily GERD: continue pantoprazole VTE Prophylaxis - enoxaparin 40mg daily Admission and Anticipated Discharge Date Admission Date: November 08, 2023 Subjective chest discomfort resolved pleuritic discomfort resolved no dyspnea still having right-sided neck discomfort - anterior, just below the jaw hurts to push on this area no posterior neck pain denies dysphagia or odynophagia has been having headaches ever since her prednisone/tacrolimus were changed to cyclosporine a month or two ago by her liver provider frontal did have migraines earlier in life is having some very mild dysuria Review of Systems Review of Systems: gen - no fevers or chills cv - chest pain resolved; no orthopnea; had had edema recently at home pulm - no cough GI - no N/V Physical Exam Physical Exam: gen - looks well, NAD neck - tender right anterior neck under the jaw; ?pain over right submandibular gland vs lymph node - favor former; no posterior c-spine pain; no masses; no thyroidmegaly; no JVD heart - RRR, s1 s2 lungs - CTA b/l abd - soft NT ND BS+ ext - no edema, pulses 2+ b/l neuro - strength 5/5 x 4 exts psych - a/o x 3 Results & Data Results & Data Vital Signs (Past 12 Hours) Vital Signs Temp Pulse Resp BP Pulse Ox O2 Del Method 11/09/23 20:04 36.8 C 80 18 137/72 96 Room Air 11/09/23 15:36 36.5 C 74 19 114/68 96 Room Air Laboratory Results Laboratory Results - last 24 hr 11/09/23 11/09/23 11/09/23 07:28 11:36 16:43 WBC RBC Hgb Hct MCV MCH MCHC RDW Std Deviation RDW Coeff of Charlee Plt Count MPV Sodium Potassium Chloride Carbon Dioxide Anion Gap BUN Creatinine Est Cr Clr Drug Dosing Est GFR ( Amer) Est GFR (Non-Af Amer) BUN/Creatinine Ratio Glucose POC Glucose 98 105 H 204 H Calcium Iron TIBC Unsaturated IBC Transferrin % Sat Ferritin PG Care Time/CCT Total # of Minutes Spent Total Time Spent with Patient: Total time spent is greater than 50% in coordination of care (as documented) at patient's floor/unit and/or counseling patient: Coding Level of Care Code 55655 SUB INP/OBS CARE 2/35MIN Diagnoses Atypical chest pain R07.89 Anterior neck pain M54.2 Diabetes mellitus type 2 with complications E11.8 Liver transplant recipient Z94.4 UTI (urinary tract infection) N39.0
--- NOTE | 2023-11-10 05:36 | Electrocardiogram Report ---
Test Reason : Blood Pressure : */* mmHG Vent. 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
[2023-11-10 06:40] LABS: Hematocrit (blood only) 33.4 % (37.0-47.0); Hemoglobin 11.1 g/dl (12.0-16.0); Mean Corpuscular Hemoglobin 25.2 pg (25.0-34.0); Mean Corpuscular Hgb Conc 33.2 g/dL (32.0-36.0); Mean Corpuscular Volume 75.9 fL (80.0-100.0); Platelet Count 228 K/uL (130-400); RDW Coefficient of Variation 16.5 % (11.5-14.5); RDW Standard Deviation 45.8 fL (36.4-46.3); White Blood Count 7.95 K/ul (4.8-10.8)
[2023-11-10 06:43] LABS: BUN Creatinine Ratio 26.6 (10-20); Creatinine Clr Calc Pharmacy 38.9 ml/min
[2023-11-10 07:03] LABS: Ferritin 37.5 ng/ml (8-388)
[2023-11-10] MEDS: predniSONE 50 MG TAB PO SCH (09:33)
[2023-11-10] MEDS: CIPROFLOXACIN 500 MG TAB PO SCH (11:14)
[2023-11-10] MEDS: OPTIRAY 320 100ml IV ONE (14:08)
--- NOTE | 2023-11-10 14:25 | Ultrasound Report ---
RIGHT UPPER EXTREMITY VENOUS DOPPLER HISTORY: R ant neck pain extending into R shoulder; DVT? COMPARISON STUDY: None. FINDINGS: The right internal jugular vein is patent. There is normal flow within the right subclavian vein. There is normal flow and compressibility within the right axillary, basilic, brachial, radial, ulnar veins. Superficial thrombus within the right cephalic vein proximal to the antecubital fossa n ear the patient's intravenous line. IMPRESSION: 1. No DVT within the right upper extremity. 2. Superficial thrombus within the right cephalic vein proximal to the antecubital fossa near the pat ient's intravenous line. ACT 112: Negative or not required by law. Electronically signed by: Ivan Veronica M.D. 11/10/2023 2:23 PM
--- NOTE | 2023-11-10 15:42 | Electrocardiogram Report ---
Test Reason : Blood Pressure : */* mmHG Vent. 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
--- NOTE | 2023-11-10 15:42 | Electrocardiogram Report ---
Test Reason : Blood Pressure : */* mmHG Vent. 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
--- NOTE | 2023-11-10 16:04 | CT Scan Report ---
CT soft tissue neck w con CT DOSE: CLINICAL HISTORY: R ant neck pain/submandibular pain; etiology? TECHNIQUE: Multiaxial CT images of the neck were performed on the intravenous administration of contr ast. Sagittal and coronal reformations also obtained. A dose lowering technique was utilized adherin g to the principles of ALARA. COMPARISON STUDY: Cervical spine MRI 11/07/2023. FINDINGS: The visualized brain parenchyma and orbits are unremarkable. The pterygopalatine fossa and parapharyngeal fat spaces are maintained. Mild asymmetric mucosal thickening within the right tonsill ar region best seen on image 86. No definite mass or abscess identified. The epiglottis and preverteb ral soft tissues are intact. The thyroid gland is severely atrophic. The parotid and submandibular gl ands are symmetric. No cervical lymphadenopathy, masses, or abscess identified. Paranasal sinuses and right mastoid air cells are clear. Trace left mastoid effusion. No suspicious osseous lesions. No pn eumothorax. Mild calcified plaque within the right carotid bifurcation. However, the major cervical v essels appear widely patent. IMPRESSION: 1. No mass or lymphadenopathy identified within the neck. 2. Atrophic thyroid gland. 3. Mild asymmetric mucosal thickening within the region of the right palatine tonsil. This may be due to incomplete distention of the airway at this level. A mild pharyngitis is not excluded. Consider d irect visualization to exclude the less likely possibility of a mucosal lesion. ACT 112: Negative or not required by law. Electronically signed by: Ivan Veronica M.D. 11/10/2023 4:03 PM
[2023-11-10] MEDS: BACLOFEN 10 MG TAB PO STA (16:13)
--- NOTE | 2023-11-10 20:19 | Hospitalist Progress Note ---
Date of Service November 10, 2023 Assessment & Plan (1) Atypical chest pain: Plan: history of remote pericarditis (20 years ago) now with atypical right-sided cp that was positional & pleuritic currently on prednisone taper for potential pericarditis 50 mg daily x 3 days, 40 mg daily x 3 days, etc. prior attending discussed this with her transplant program 11/07/23 pain improved with steroids apparently had [facility] appreciate [facility] consultation they are planning outpatient stress to be complete right neck pain with radiation to right ear -- not explained by pericarditis, however planning on RUE venous duplex - r/o IJ clot, etc also obtain soft tissue CT scan of neck - r/o abscess, other pathology suspect the neck pain is musculoskeletal, however trial of low-dose baclofen prn (2) Anterior neck pain: Plan: see above in #1 (3) Diabetes mellitus type 2 with complications: Plan: HbA1C 5.6% anemia could be causing such to be inaccurate remains on lantus/novolog AM BSGs are low-normal; will reduce lantus to 30 units/day (4) Liver transplant recipient: Plan: Secondary to REBOLLAR performed in September 2022 at [facility] LFTs stable Prior attending discussed her case with liver transplant team on admission Continue cyclosporine 50mg BID (5) UTI (urinary tract infection): Plan: 2nd klebsiella change keflex to cipro UTI is uncomplicated symptoms are minimal will Rx for 3 days Plan HTN: continue amlodipine and valsartan Diabetic neuropathy: continue pregabalin Hypothyroidism: TSH low, levothyroxine recently reduced by endocrinology from 125 mcg to 100mcg PO daily GERD: continue pantoprazole VTE Prophylaxis - enoxaparin 40mg daily pending RUQ venous duplex study & soft tissue neck - if results negative - hopefully d/c home will reach out to [facility] in am tomorrow Admission and Anticipated Discharge Date Admission Date: November 08, 2023 Subjective still having right-sided neck discomfort below the jaw line does hurt with movements of the head/neck still some discomfort radiating towards the right shoulder no substernal chest pain no pleuritic pain eating well no other new complaints Review of Systems Review of Systems: gen - no fevers or chills CV - no chest pain, no orthopnea GI - no N/V Physical Exam Physical Exam: gen - looks well, NAD neck - still with tenderness right anterior neck under the jaw near the right submandibular gland; no masses; no thyroidmegaly; no JVD heart - RRR, s1 s2, no murmur lungs - CTA b/l abd - soft NT ND BS+ ext - no edema, pulses 2+ b/l skin - no rash upper chest/neck Results & Data Results & Data Vital Signs (Past 12 Hours) Vital Signs Temp Pulse Pulse Resp BP Pulse Ox O2 Del Method 11/10/23 20:12 36.6 C 70 18 111/68 96 Room Air 11/10/23 15:55 36.4 C L 71 16 105/62 95 Room Air 11/10/23 12:30 36.5 C 70 16 110/60 96 Room Air 11/10/23 09:34 Room Air Laboratory Results Laboratory Results - last 48 hr 11/09/23 11/09/23 11/09/23 11:36 16:43 20:33 WBC RBC Hgb Hct MCV MCH MCHC RDW Std Deviation RDW Coeff of Charlee Plt Count MPV Sodium Potassium Chloride Carbon Dioxide Anion Gap BUN Creatinine Est Cr Clr Drug Dosing Est GFR ( Amer) Est GFR (Non-Af Amer) BUN/Creatinine Ratio Glucose POC Glucose 105 H 204 H 167 H Calcium Iron TIBC Unsaturated IBC Transferrin % Sat Ferritin C-Reactive Protein 11/10/23 11/10/23 11/10/23 05:42 07:35 12:10 WBC 7.95 RBC 4.40 Hgb 11.1 L Hct 33.4 L MCV 75.9 L MCH 25.2 MCHC 33.2 RDW Std Deviation 45.8 RDW Coeff of Charlee 16.5 H Plt Count 228 MPV 9.0 L Sodium 140 Potassium 4.0 Chloride 108 H Carbon Dioxide 25 Anion Gap 7 BUN 33 H Creatinine 1.24 H Est Cr Clr Drug Dosing 38.9 Est GFR ( Amer) 51.0 Est GFR (Non-Af Amer) 44.0 BUN/Creatinine Ratio 26.6 H Glucose 86 POC Glucose 90 96 Calcium 10.0 Iron 55 TIBC 351 Unsaturated IBC 296 Transferrin % Sat 16 Ferritin 37.5 PG Care Time/CCT Total # of Minutes Spent Total Time Spent with Patient: Total time spent is greater than 50% in coordination of care (as documented) at patient's floor/unit and/or counseling patient: Coding Level of Care Code 80635 SUB INP/OBS CARE 2/35MIN Diagnoses Atypical chest pain R07.89 Anterior neck pain M54.2 Diabetes mellitus type 2 with complications E11.8 Liver transplant recipient Z94.4 UTI (urinary tract infection) N39.0
[2023-11-10] MEDS: BACLOFEN 10 MG TAB PO PRN (21:05)
[2023-11-11 06:39] LABS: Anion Gap 7 (3-11); BUN Creatinine Ratio 26.3 (10-20); Blood Urea Nitrogen 31 mg/dl (6-23); C Reactive Protein < 0.50 mg/dl (0-0.5); Calcium 9.8 mg/dl (8.6-10.3); Carbon Dioxide 26 mmol/L (21-32); Chloride 109 mmol/L (98-107); Creatinine Clr Calc Pharmacy 40.9 ml/min; Est GFR (African American) 54.1 ml/min; Est GFR (Non-African American) 46.7 ml/min; Glucose 84 mg/dl (70-99(Fasting)); Sodium 142 mmol/L (136-145)
[2023-11-11 07:38] VITALS: BP 133/70; PULSE 60; RESP 15; TEMP 97.7; O2SAT 95
--- NOTE | 2023-11-11 12:30 | Discharge Summary ---
Discharge Summary Date of Service date of admission - November 06, 2023 date of discharge - November 11, 2023 Principal Dx & Hospital Course #1 = Principal Diagnosis (1) Atypical chest pain: Ms Kurtz presented with atypical right-sided chest pain that was positional & pleuritic CTA chest on day of admission was negative for PE, pneumonia, or other pathology to account for her symptoms on 11/07/23 the hospitalist team discussed her care with her liver transplant team permission was granted for use of prednisone to treat for possible pericarditis of note -- patient has history of remote pericarditis 20 years ago Ms Kurtz was started on 50mg/day of prednisone for suspected pericarditis her right-sided chest pain improved with steroids by report she apparently had a reaction to colchicine on hospital day #1 thus ongoing use was deferred she was seen in consult by [facility] they agreed with use of prednisone for suspected/possible pericarditis they also recommended an outpatient stress test echo did not show a pericardial effusion, however of note - her right neck pain with radiation to the right ear was not explained by pericarditis, however RUE venous duplex study was negative for DVT soft tissue CT scan of neck did not show any abscess or other pathology prednisone instructions at discharge -- * tape will start on 11/12/23 with prednisone 50mg x 1, then - * prednisone 40mg daily x 3 days, then - * prednisone 30mg daily x 3 days, then - * prednisone 20mg daily x 3 days, then - * prednisone 10mg daily thereafter she will follow-up with [facility] within a week of discharge (2) Anterior neck pain: in addition to her pleuritic chest pain Ms Kurtz c/o right sided anterior neck pain inferior to the jaw the pain was worsened with certain neck/head movements she had no pain with chewing denied dysphagia, sore throat, or tooth pain she had an extensive work-up for the neck pain including doppler study of the right arm, CT soft tissue neck, etc. no specific pathology was found to account for her pain she did have improvement in her symptoms with muscle relaxers suggesting her pain was musculoskeletal in etiology thus, at time of discharge, she will continue with baclofen prn, oxycodone prn, as well as her prednisone (3) Diabetes mellitus type 2 with complications: HbA1C 5.6% anemia could be causing such to be inaccurate she will continue Basaglar & regular insulin at home (4) Liver transplant recipient: Cirrhosis was 2nd to [facility] Liver Transplant was performed in September 2022 at [facility], [place] LFTs were stable while here Hospitalist team discussed her case with her liver transplant team on admission to get permission to use prednisone for her suspected pericarditis Continue cyclosporine 50mg BID (5) UTI (urinary tract infection): 2nd klebsiella UTI was uncomplicated symptoms were minimal will Rx with course of PO cipro (6) Abnormal CT scan, neck: CT soft tissue neck showed -- "Mild asymmetric mucosal thickening within the region of the right palatine tonsil. This may be due to incomplete distention of the airway at this level. A mild pharyngitis is not excluded. Consider direct visualization to exclude the less likely possibility of a mucosal lesion." On exam her posterior throat was clear/normal. Will send to ENT for this finding. (7) Pulmonary nodule: "An 11 mm left upper lobe pulmonary nodule has modestly increased in size dating back to 2012. This favors a nonaggressive lesion. A slow-growing neoplasm such as carcinoid could potentially have this appearance. Nonemergent follow-up with pulmonology is recommended." Advise f/u with [facility] for this. Plan Chronic medical issues - * HTN: continue amlodipine and valsartan * Diabetic neuropathy: continue pregabalin * Hypothyroidism: TSH low, levothyroxine recently reduced by endocrinology from 125mcg to 100mcg PO daily * GERD: continue pantoprazole VTE Prophylaxis - enoxaparin used during the stay Notes For Next Care Provider Medication Changes From Visit Pericarditis treatment - prednisone taper, starting with 50mg/day Baclofen prn, Oxycodone prn - for anterior right-sided neck pain Admission HPI Per Admitting Provider Aurelia Kurtz is a 68 year old female who presents to the ER with chest pain. She reports symptoms started at 4am initially as right shoulder pain but then across her chest and right side of her jaw and up to her ear, sharp pleuritic chest pain, without relief since 4am, severity 12/10 when she came to the ER (improved with Toradol and sitting up, significant positional nature with worse on lying flat (had to sit up and felt short of breath while having CT). She has Barrets esophagus and takes pantoprazole for this without reflux problems on this medication and she feels this pain is different to her reflux. No dysphagia or odynophagia. She has a notably history of liver transplant in September 2022. Initially on everolimus and prednisone but switched three weeks ago to cyclosporine for steroid sparing. Discharge Exam gen - looks well, NAD neck - minimal to no tenderness right anterior neck under the jaw near the right submandibular gland; no masses; no thyroidmegaly; no JVD mouth - MMM; no posterior throat lesions heart - RRR, s1 s2, no murmur lungs - CTA b/l abd - soft NT ND BS+ ext - no edema, pulses 2+ b/l skin - no rash upper chest/neck vascular - right antecubital region - no palpable cord, no obvious area of phlebitis Discharge Plan Discharge Items Patient Disposition: Home - Self-Care Reason For Visit: Upper right chest & neck discomfort Discharge Diagnosis: 1. suspected pericarditis 2. right neck pain - suspected musculoskeletal pain 3. mildly abnormal soft tissue neck CT showing ?asymmetry deep in the throat on the right side - ENT follow-up recommended 4. liver transplant 5. left-sided lung nodule - follow-up with your family doctor for this; you may need pulmonary referral (the nodule has been present since at least 2012) Activity: As commented below Activity Comment: avoid strenuous activities until seen by cardiology Lifting: No more than 10 pounds Exercise/Sports: Wait until after follow-up appointment Driving/Machine Use: NO DRIVING if taking narcotic pain killer medication Non-emergency contact: Primary Care Provider, Specialist and [employer] [facility] Call non-emergency contact if: you have any medication questions, your symptoms worsen, your pain is not controlled, your pain is worsening and you have a fever Follow-up/Referrals: Sergio De La Fuente MD [Physician] - (Dr De La Fuente or any of her partners, first available; diagnosis - abnormal CT neck showing ?asymmetry of right side of throat ) Lakisha Arriaga MD [Primary Care Provider] - 11/18/23 10:05 am (1 week if possible) Sharon Storey DO [Physician] - (1 week; cardiology office will be contacting you with appointment details ) Benitez Montenegro MD [Physician] - 11/17/23 3:00 pm ([address], [place] [address] 3RD FLOOR) Diet: Carb Consistent or DM2 and Heart Healthy Addtl Attending Provider Instructions: Ms Kurtz, You were hospitalized and treated for suspected pericarditis. See handout. Pericarditis is inflammation of the sac of the heart, also known as the pericardium. There are numerous causes of pericarditis including infections (often viral), inflammatory conditions of the body, etc. We treat pericarditis with anti-inflammatory medicine or steroids (prednisone). Your chest symptoms did improve with prednisone. You were seen by [facility] and they did recommend keeping you on prednisone for the suspected pericarditis. We notified your liver transplant team about our concerns and using the prednisone. In addition, you complained of right sided neck discomfort below the jaw. The pain responded best to muscle relaxers. This would suggest that the pain in the neck is musculoskeletal in etiology. I suspect it is a separate issue than the pericarditis. CT scan of the neck did not show tumors, masses, inflammation of your salivary glands or teeth, or other abnormalities to account for your pain. Carotid ultrasound was normal. Doppler ultrasound of the neck veins was normal. Recommendations - 1. prednisone course - this will be a taper; start on 11/12/23. This is for suspected pericarditis. * prednisone 50mg x 1 on 11/11, then - * prednisone 40mg daily x 3 days, then - * prednisone 30mg daily x 3 days, then - * prednisone 20mg daily x 3 days, then - * prednisone 10mg daily thereafter; take with food The prednisone will make your blood sugars higher than usual. Prednisone can also cause fluid retention. If you notice that your chest discomfort is worse as you taper the prednisone please let [facility] know right away. 2. Ciprofloxacin antibiotic x 4 days, first dose TONIGHT. Most common side effect - diarrhea. 3. For neck pain - * baclofen muscle relaxer - 5-10mg every 8 hrs as needed * most common side effect - sleepiness * if you notice sleepiness from the baclofen please do NOT drive a car * oxycodone 5mg tablet - 1 tablet every 6 hours as needed * try to use oxycodone sparingly * if you use oxycodone know it can cause constipation and it can cause you to be sleepy; thus, no driving while taking oxycodone and do not drink alcohol while on this medicine * heat or ice as needed/as desired; I would suspect heat would work better right now 4. for as needed treatment of edema/swelling - * furosemide diuretic - 20mg every morning NEEDED ONLY for swelling * if you take furosemide take a potassium supplement with it 5. pulmonary nodule, left lung - present since at least 2012. Please talk to your family doctor about obtaining a referral to pulmonary medicine for this. The nodule is 11mm in size - very small. See handout about pulmonary nodules. 6. see ENT for the question of mild abnormality of the throat seen on CT scan. Follow-up - see separate section Return to [facility] if - * you have fevers over 100 degrees * you have shortness of breath or worsening chest pain * you have severe diarrhea * you have numbness or tingling of your right arm, upper chest, etc. * you have uncontrolled pain in any location * any other concerns It was our pleasure to care for you! Pending Studies at Discharge: No Stand-Alone Forms: My [facility], Smoking Cessation Medications and DC Order Prescriptions: New baclofen 10 mg Tablet 5 - 10 mg PO TID PRN (Reason: muscle spasm/pain) Qty: 20 0RF prednisone 10 mg tablet 10 mg PO DIRECTED Qty: 60 0RF Rx Instructions: take with food; start 8/30. 5 tabs po QD x 1 day; 4 tabs po QD x 3 days; 3 tabs po QD x 3 days; 2 tabs po QD x 3 days; then 1 tab po daily thereafter. furosemide [Lasix] 20 mg tablet 20 mg PO QAM PRN (Reason: edema) Qty: 20 0RF potassium chloride 10 mEq tablet extended release 10 meq PO DAILY PRN (Reason: only take if you are using furosemide diuretic) Qty: 20 0RF oxycodone 5 mg tablet 5 mg PO Q6H PRN (Reason: pain) Qty: 14 0RF Continued Ozempic 0.25 mg or 0.5 mg (2 mg/3 mL) pen injector 0.5 mg subcut Q7D Qty: 9 0RF Rx Instructions: Wednesday pregabalin [Lyrica] 50 mg capsule 50 mg PO HS Qty: 90 1RF (DME) AssertID Lisy 3 Sensor Device See Rx Instructions .Route Qty: 6 3RF Rx Instructions: Change every 14 days valsartan 80 mg tablet 80 mg PO QPM Qty: 30 3RF Rx Instructions: Take one tablet by mouth once a day. (DME) pen needle, diabetic [BD Ultra-Fine Lani Pen Needle] 32 gauge x 5/32" needle See Rx Instructions .Route Qty: 100 3RF Rx Instructions: Use once per day with insulin injection levothyroxine 100 mcg tablet 100 mcg PO DAILY Qty: 30 2RF Rx Instructions: Take one table in the AM 30-45 minutes before meal and other medications. biotin 1 mg capsule 1 mg PO BID sertraline 100 mg tablet 100 mg PO QPM Novolin R FlexPen 100 unit/mL (3 mL) insulin pen 5 unit subcut DAILY PRN (Reason: Blood Glucose Level) cyclosporine 25 mg capsule 50 mg PO BID pantoprazole [Protonix] 40 mg tablet,delayed release (DR/EC) 40 mg PO DAILY Women's 50 Plus Multivitamin 400 mcg-500 mg calcium-20 mcg tablet 1 tab PO QAM ferrous sulfate 325 mg (65 mg iron) tablet 325 mg PO DAILY amlodipine 10 mg Tablet 10 mg PO QAM atorvastatin 20 mg tablet 20 mg PO HS insulin glargine [Basaglar KwikPen U-100 Insulin] 100 unit/mL (3 mL) insulin pen 30 unit subcut QAM Discharge Orders: Discharge Order (Routine); Ordered 11/11/23 Ordered By: Rogelio Correa/Other Patient Handouts: Pericarditis, ED Pulmonary Nodule, Solitary Admission Data Admit Date/Time: 11/08/23 13:21 Attending Provider: Rogelio Taylor Admit Provider: Rogelio Landry Primary Care Provider: Lakisha Arriaga Other Providers: Rogelio Landry; Sharon Storey Other Interventions: Discharge Summary Assessment (RN) Last Done: 11/11/23 12:50 Hospital Stay Data Consultations [facility] Procedures Performed Echocardiogram - Diagnostic Imagining Performed Chest X-Ray 11/06/23 14:04 SINGLE VIEW CHEST CLINICAL HISTORY: Atypical chest pain FINDINGS: An AP, portable, upright chest radiograph is compared to study dated 07/16/2023. The cardiomediastinal heart is mildly enlarged. Chronic interstitial thickening is similar to previous. There is bibasilar scarring/atelectasis. The lungs and pleural spaces are otherwise clear. No pneumothorax is seen. The skeletal structures are osteopenic. The bony thorax is grossly intact. Surgical clips are seen in the upper abdomen. IMPRESSION: No acute cardiopulmonary abnormality. ACT 112: Negative or not required by law. Electronically signed by: Parveen Candelaria M.D. 11/06/2023 3:00 PM Chest CTA 11/06/23 14:59 CT ANGIOGRAM OF THE CHEST CLINICAL HISTORY: Atypical chest pain. Thoracic back pain. COMPARISON STUDY: Chest x-ray dated 11/06/2023. Chest CT dated 02/17/2013. TECHNIQUE: Following the IV administration of 116 cc of Optiray 320, CT angiogram of the chest was performed from the thoracic inlet to the upper abdomen utilizing the dissection protocol. Images are reviewed in the axial, sagittal, and coronal planes. 3-D MIPS images are created and assessed. IV contrast was administered without complication. A dose lowering technique was utilized adhering to the principles of ALARA. CT DOSE: 452.8 mGy.cm FINDINGS: Thyroid: Atrophic. Thoracic aorta: The thoracic aorta is normal in caliber and demonstrates standard 3-vessel arch anatomy. No dissection is seen. The arch vessels are widely patent. Pulmonary vasculature: The pulmonary trunk is normal in caliber. There are no filling defects identified in the main, lobar, or segmental pulmonary vessels to indicate pulmonary embolus. Heart: The heart is enlarged and without pericardial effusion. There is coronary artery atherosclerosis. Lungs and pleural spaces: Evaluation of the lung parenchyma is degraded by motion artifact. There is no airspace consolidation typical for pneumonia or pleural effusion. Segmental atelectasis is seen at the right lung base. There is an 11 mm left upper lobe pulmonary nodule seen on image #44. This has modestly increased in size dating back to 2012 when it measured 7 mm. A 3 mm pleural- based nodule in the left upper lobe along the major fissure on image #39 is unchanged. Mediastinum: There is no mediastinal lymphadenopathy. Malina: Clear. Axillae: There is no axillary lymphadenopathy. Upper abdomen: The liver appears steatotic and there is postsurgical change change from left lobe hepatic resection. The spleen is enlarged, measuring at least 15.2 cm in length. A small hiatal hernia is noted. Skeletal structures: The skeletal structures are osteopenic. No lytic or blastic bony lesions are seen. Degenerative change is noted in the thoracic spine. IMPRESSION: 1. Unremarkable CT angiogram of the thoracic aorta. 2. There is no evidence of pulmonary embolus in the main, lobar, or segmental pulmonary arteries. 3. Cardiomegaly. 4. There is no airspace consolidation typical for pneumonia or pleural effusion. 5. An 11 mm left upper lobe pulmonary nodule has modestly increased in size dating back to 2012. This favors a nonaggressive lesion. A slow-growing neoplasm such as carcinoid could potentially have this appearance. Nonemergent follow-up with pulmonology is recommended. 6. Splenomegaly. 7. Additional findings as above. ACT 112: Negative or not required by law. Electronically signed by: Parveen Candelaria M.D. 11/06/2023 4:14 PM Cervical Spine MRI 11/07/23 12:50 CERVICAL SPINE MRI WITH AND WITHOUT CONTRAST HISTORY: R neck to ear pain, liver transplant/immunosupp TECHNIQUE: Multiplanar multisequence MRI of the cervical spine was performed both before and after the use of intravenous contrast. COMPARISON STUDY: CT cervical spine 05/15/2020. FINDINGS: No fracture or subluxation within the cervical spine. Prevertebral soft tissues and the C1-C2 interval are intact. The visualized posterior fossa is unremarkable. The cervical spinal cord is normal in course, caliber, and signal intensity. No significant disc space narrowing. Postcontrast sequences show no areas of abnormal enhancement. Motion artifact on the axial sequences results in suboptimal evaluation. Mild facet degenerative changes seen throughout the cervical spine. C2-C3: No significant central canal or neural foraminal narrowing. C3-C4: No significant central canal or right-sided neural foraminal narrowing. This mild left-sided neural foraminal narrowing due to the uncovertebral and facet hypertrophy. C4-C5: No significant central canal or neural foraminal narrowing. C5-C6: Tiny broad-based posterior disc osteophyte complex without significant central canal or neural foraminal narrowing. C6-C7: Small broad-based posterior disc osteophyte complex resulting in partial effacement of the anterior thecal sac without cord deformity. No significant central canal narrowing. There is mild left-sided neural foraminal narrowing due to the uncovertebral and facet hypertrophy. C7-T1: No significant central canal or neural foraminal narrowing. IMPRESSION: 1. No fracture or subluxation within the cervical spine. 2. Normal cervical spinal cord. 3. Mild degenerative changes as described above. ACT 112: Negative or not required by law. Electronically signed by: Ivan Veronica M.D. 11/07/2023 4:55 PM Carotid Doppler Study 11/08/23 11:46 ULTRASOUND OF THE CAROTID ARTERIES CLINICAL HISTORY: Right-sided neck pain. COMPARISON STUDY: No priors. TECHNIQUE: Real-time, grayscale, and color Doppler sonography of the carotid arteries is performed. Images are reviewed in the transverse and longitudinal planes. FINDINGS: The carotid arteries are patent bilaterally and demonstrate antegrade flow. There is no significant atherosclerotic plaque identified. Normal doppler arterial waveforms are seen throughout. Velocity measurements are listed below. Common carotid peak systolic velocity (cm/sec): RIGHT: 61 LEFT: 53 ICA proximal peak systolic velocity (cm/sec): RIGHT: 46 LEFT: 57 ICA mid peak systolic velocity (cm/sec): RIGHT: 52 LEFT: 43 ICA distal peak systolic velocity (cm/sec): RIGHT: 39 LEFT: 62 ICA/CC peak systolic ratio: RIGHT: 0.9 LEFT: 1.2 Antegrade flow was shown in the vertebral arteries. The external carotid arteries are patent. IMPRESSION: 1. There is no sonographic evidence of hemodynamically significant stenosis in the right or left carotid arterial system. 2. Antegrade flow is shown in the vertebral arteries. ACT 112: Negative or not required by law. Electronically signed by: Parveen Candelaria M.D. 11/08/2023 2:[address] 11/10/23 12:24 CT soft tissue neck w con CT DOSE: CLINICAL HISTORY: R ant neck pain/submandibular pain; etiology? TECHNIQUE: Multiaxial CT images of the neck were performed on the intravenous administration of contrast. Sagittal and coronal reformations also obtained. A dose lowering technique was utilized adhering to the principles of ALARA. COMPARISON STUDY: Cervical spine MRI 11/07/2023. FINDINGS: The visualized brain parenchyma and orbits are unremarkable. The pterygopalatine fossa and parapharyngeal fat spaces are maintained. Mild asymmetric mucosal thickening within the right tonsillar region best seen on image 86. No definite mass or abscess identified. The epiglottis and prevertebral soft tissues are intact. The thyroid gland is severely atrophic. The parotid and submandibular glands are symmetric. No cervical lymphadenopathy, masses, or abscess identified. Paranasal sinuses and right mastoid air cells are clear. Trace left mastoid effusion. No suspicious osseous lesions. No pneumothorax. Mild calcified plaque within the right carotid bifurcation. However, the major cervical vessels appear widely patent. IMPRESSION: 1. No mass or lymphadenopathy identified within the neck. 2. Atrophic thyroid gland. 3. Mild asymmetric mucosal thickening within the region of the right palatine tonsil. This may be due to incomplete distention of the airway at this level. A mild pharyngitis is not excluded. Consider direct visualization to exclude the less likely possibility of a mucosal lesion. ACT 112: Negative or not required by law. Electronically signed by: Ivan Veronica M.D. 11/10/2023 4:03 PM Venous Doppler Study 11/10/23 12:24 RIGHT UPPER EXTREMITY VENOUS DOPPLER HISTORY: R ant neck pain extending into R shoulder; DVT? COMPARISON STUDY: None. FINDINGS: The right internal jugular vein is patent. There is normal flow within the right subclavian vein. There is normal flow and compressibility within the right axillary, basilic, brachial, radial, ulnar veins. Superficial thrombus within the right cephalic vein proximal to the antecubital fossa near the patient's intravenous line. IMPRESSION: 1. No DVT within the right upper extremity. 2. Superficial thrombus within the right cephalic vein proximal to the antecubital fossa near the patient's intravenous line. ACT 112: Negative or not required by law. Electronically signed by: Ivan Veronica M.D. 11/10/2023 2:23 PM Pending Results Patient Have Any Pending Studies at Discharge: No Discharge Instructions Given to Patient (Per Discharging Provider) Ms Kurtz, Mandeep were hospitalized and treated for suspected pericarditis. See handout. Pericarditis is inflammation of the sac of the heart, also known as the pericardium. There are numerous causes of pericarditis including infections (often viral), inflammatory conditions of the body, etc. We treat pericarditis with anti-inflammatory medicine or steroids (prednisone). Your chest symptoms did improve with prednisone. You were seen by [facility] and they did recommend keeping you on prednisone for the suspected pericarditis. We notified your liver transplant team about our concerns and using the prednisone. In addition, you complained of right sided neck discomfort below the jaw. The pain responded best to muscle relaxers. This would suggest that the pain in the neck is musculoskeletal in etiology. I suspect it is a separate issue than the pericarditis. CT scan of the neck did not show tumors, masses, inflammation of your salivary glands or teeth, or other abnormalities to account for your pain. Carotid ultrasound was normal. Doppler ultrasound of the neck veins was normal. Recommendations - 1. prednisone course - this will be a taper; start on 11/12/23. This is for suspected pericarditis. * prednisone 50mg x 1 on 11/11, then - * prednisone 40mg daily x 3 days, then - * prednisone 30mg daily x 3 days, then - * prednisone 20mg daily x 3 days, then - * prednisone 10mg daily thereafter; take with food The prednisone will make your blood sugars higher than usual. Prednisone can also cause fluid retention. If you notice that your chest discomfort is worse as you taper the prednisone please let [facility] know right away. 2. Ciprofloxacin antibiotic x 4 days, first dose TONIGHT. Most common side effect - diarrhea. 3. For neck pain - * baclofen muscle relaxer - 5-10mg every 8 hrs as needed * most common side effect - sleepiness * if you notice sleepiness from the baclofen please do NOT drive a car * oxycodone 5mg tablet - 1 tablet every 6 hours as needed * try to use oxycodone sparingly * if you use oxycodone know it can cause constipation and it can cause you to be sleepy; thus, no driving while taking oxycodone and do not drink alcohol while on this medicine * heat or ice as needed/as desired; I would suspect heat would work better right now 4. for as needed treatment of edema/swelling - * furosemide diuretic - 20mg every morning NEEDED ONLY for swelling * if you take furosemide take a potassium supplement with it 5. pulmonary nodule, left lung - present since at least 2012. Please talk to your family doctor about obtaining a referral to pulmonary medicine for this. The nodule is 11mm in size - very small. See handout about pulmonary nodules. 6. see ENT for the question of mild abnormality of the throat seen on CT scan. Follow-up - see separate section Return to [facility] if - * you have fevers over 100 degrees * you have shortness of breath or worsening chest pain * you have severe diarrhea * you have numbness or tingling of your right arm, upper chest, etc. * you have uncontrolled pain in any location * any other concerns It was our pleasure to care for you! 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
[2023-11-12] MEDS ORDERED: LANTUS PER UNIT CHARGE SC SCH (09:00)
[2023-11-13] MEDS ORDERED: predniSONE 20 MG TAB PO SCH (09:00)
== END 2023-11-11 14:07 | disposition home or self-care (01) | DRG 315 ==
LOC: 4W 13:45 → ED 13:45 → SUATTDRO 18:43 → 4W 22:14 → 3E 11-07 18:00 → SUATTDRO 11-08 13:21

== ENCOUNTER 2024-03-27 15:20 | Inpatient (IN) ==
[2024-03-27 17:15] LABS: Basophils # (auto) 0.02 K/uL (0.00-0.20); Basophils % (auto) 0.4 %; Eosinophils # (auto) 0.13 K/uL (0.00-0.50); Eosinophils % (auto) 2.5 %; Hematocrit (blood only) 34.9 % (37.0-47.0); Hemoglobin 11.8 g/dl (12.0-16.0); Immature Granulocytes # (auto) 0.03 K/uL (0.01-0.20); Immature Granulocytes % (auto) 0.6 %; Lymphocytes # (auto) 0.27 K/uL (1.20-3.40); Lymphocytes % (auto) 5.2 %; Mean Corpuscular Hemoglobin 30.4 pg (25.0-34.0); Mean Corpuscular Hgb Conc 33.8 g/dL (32.0-36.0); Mean Corpuscular Volume 89.9 fL (80.0-100.0); Mean Platelet Volume 8.6 fL (9.4-12.4); Monocytes # (auto) 0.48 K/uL (0.11-0.59); Monocytes % (auto) 9.3 %; Neutrophils # (auto) 4.23 K/uL (1.40-6.50); Platelet Count 227 K/uL (130-400); RDW Coefficient of Variation 15.9 % (11.5-14.5); RDW Standard Deviation 52.6 fL (36.4-46.3); Red Blood Count 3.88 M/uL (4.20-5.40); White Blood Count 5.16 K/ul (4.8-10.8)
[2024-03-27 17:21] LABS: Albumin Globulin Ratio 1.6 (0.9-2); Albumin Level 4.2 gm/dl (3.4-5.0); BUN Creatinine Ratio 9.8 (10-20); Bilirubin,Total 0.9 mg/dl (0.2-1.0); Creatinine Clr Calc Pharmacy 39.4 ml/min; Globulin 2.6 gm/dl (2.5-4.0); Potassium 3.8 mmol/L (3.5-5.1); Total Protein 6.8 gm/dl (6.0-8.3)
[2024-03-27] MEDS: HYDROmorphone INJ 0.5 MG/0.5 ML SYR IV STA (18:31)
[2024-03-27] MEDS: ONDANSETRON INJ 2 MG/ML 2 ML VIAL IV STA (18:33)
[2024-03-27] MEDS: SODIUM CHLORIDE 0.9% 1,000 ML IV SCH (18:33)
[2024-03-27] MEDS: LORazepam 1 MG/1 ML SYR ED Inj Use IV STA (19:06)
[2024-03-27] MEDS: OPTIRAY 320 100ml IV ONE (19:24)
--- NOTE | 2024-03-27 20:52 | CT Scan Report ---
Exam(s): CT ABDOMEN + PELVIS With Contrast IV Amt: 93 ml opti 320 EXAM: CT Abdomen and Pelvis With Intravenous Contrast CLINICAL HISTORY: Reason for exam: diffuse abd pain, colorectal CA. TECHNIQUE: Axial computed tomography images of the abdomen and pelvis with intravenous contrast. CTDI is 18 mGy and DLP is 972 mGy-cm. Automated exposure control was utilized for the study. A dose lowering technique was utilized adhering to the principles of ALARA. CONTRAST: Patient received 93 ml opti 320 of IV contrast COMPARISON: 08/23/2023 FINDINGS: ABDOMEN: Liver: Postsurgical changes in the liver. Gallbladder and bile ducts: Cholecystectomy. Biliary dilatation secondary to cholecystectomy status. Pancreas: Unremarkable. Spleen: Spleen measures 15 cm. Adrenals: Unremarkable. Kidneys and ureters: Unremarkable. No obstructing stones. No hydronephrosis. Stomach and bowel: Colonic mucosal thickening consistent with colitis. There is also mild diverticulitis in the sigmoid colon. No perforation or abscess. PELVIS: Appendix: No findings to suggest acute appendicitis. Bladder: Unremarkable. Reproductive: Unremarkable as visualized. ABDOMEN and PELVIS: Intraperitoneal space: Unremarkable. No free air. No significant fluid collection. Bones/joints: Chronic compression deformity at L4. Soft tissues: Unremarkable. Vasculature: Unremarkable. Lymph nodes: Unremarkable. IMPRESSION: 1. Colonic mucosal thickening consistent with colitis. There is also mild diverticulitis in the sigmoid colon. No perforation or abscess. 2. Splenomegaly. Electronically signed by: Rob Acuña MD 03/27/24 20:51 PM
[2024-03-27 20:53] LABS: Appearance Urine Clear (Clear); Bacteria Urine Automated None Seen (None Seen); Bilirubin Urine Negative (Negative); Blood Urine Negative (Negative); Color Urine Yellow; Epithelial Cell Urine Auto 0-2 /hpf (0-2); Glucose Urine UA Negative (Negative); Ketones Urine Negative (Negative); Leukocyte Esterase Urine 2+ (Negative); Nitrite Urine Negative (Negative); Protein Urine Negative (Negative); RBC Urine Automated 0-2 /hpf (0-2); Specific Gravity Urine 1.022 (1.000-1.030); Urobilinogen Urine Negative (Negative); WBC Urine Automated 21-50 /hpf (0-5); pH Urine 5.5 (4.5-7.5)
[2024-03-27] MEDS: AMOXICILLIN/CLAVULANATE 875 MG TAB PO ONE (21:06)
--- NOTE | 2024-03-27 22:09 | Emergency Department Note ---
Impression & Plan UTI (urinary tract infection), Diverticulitis ED Provider Note CHIEF COMPLAINT: Abdominal pain HISTORY OF PRESENT ILLNESS: This 68-year-old female status post liver transplant with history of squamous cell carcinoma of the anus, hypertension, hyperlipidemia, hyperparathyroidism, type 2 diabetes, diabetic neuropathy, pulmonary nodule presents emergency department with complaints of lower abdominal pain. The patient states she spent a week at the [facility] awaiting transfer to [facility]. She states she received IV antibiotics for diverticulitis and was eventually discharged home. This evening the patient's pain across the abdomen diffusely became worse. She states she takes 10 mg of Oxy which did not touch her pain. She denies any fevers, vomiting or diarrhea. She denies any blood in the stools. Patient states she has a tight mass at the anus that prevented a recent colonoscopy. REVIEW OF SYSTEMS: A review of systems was performed with positives and pertinent negatives listed in the history of present illness. 10 systems were reviewed and are otherwise negative. ALLERGIES: see below MEDICATIONS: see below PMH: see below SOCIAL HISTORY: see below DDx: Diverticulitis, bowel obstruction, cancer related pain, post radiation injury, kidney stone, UTI among others. PHYSICAL EXAM: Vital signs reviewed. General: Well-appearing 68-year-old female, in discomfort, but no distress HEENT: No scleral icterus, PERRLA, neck supple. Moist mucous membranes Cardiovascular: Regular rate and rhythm, no extra sounds. Pulmonary: Clear to auscultation bilaterally, normal work of breathing. Abdomen: Soft, no rebound, positive guarding. Nondistended, positive bowel sounds. Musculoskeletal: Atraumatic, no peripheral edema. Neurologic: Patient awake alert and oriented x 3, speech is clear Skin: Warm, dry, no rash EMERGENCY DEPARTMENT COURSE/MDM: This patient was evaluated and appeared to be in some discomfort. IV access was obtained and laboratory work was drawn. The patient was placed on the hall monitor. She was given 0.5 mg of IV Dilaudid and 4 mg of IV Zofran for her discomfort. IV hydration was initiated with normal saline solution. CT imaging of the abdomen pelvis was performed and reveals colonic mucosal thickening consistent with colitis and evidence of mild diverticulitis without perforation or abscess. Patient continued to have discomfort and requested Ativan as this has helped her in the past. Patient was given 1 mg of Ativan with significant improvement. I discussed the results of the patient's laboratory work including a normal WBC and CT read. The patient and her felt uncomfortable with the plan for discharge due to her pain and Oxy at home. Patient did receive Augmentin by mouth. Her case was discussed with the hospitalist service for further evaluation and management. Patient and her expressed understanding of the plan and agreed. MONITORING: An order for cardiac monitoring was placed and the patient is noted to be in a normal sinus rhythm at 72 beats per minute. RADIOLOGY: CT imaging of the abdomen and pelvis: IMPRESSION: 1. Colonic mucosal thickening consistent with colitis. There is also mild diverticulitis in the sigmoid colon. No perforation or abscess. 2. Splenomegaly. DISPOSITION: Admission Past Med/Surg History Problem List Diverticulitis (Acute) UTI (urinary tract infection) (Acute) Abnormal PET scan of colon History of liver transplant Mass of anus Abnormal positron emission tomography (PET) scan Ex-smoker Bilateral tinnitus Pulmonary nodule Abnormal CT scan, neck Abnormal CT scan of head Pericarditis Anterior neck pain UTI (urinary tract infection) HX, JULY 2021 -HOSPITALIZED FOR , NOW RESOLVED DURING TESTING FOUND 2 LUMPS IN INTESTINES...REASON FOR UPCOMING COLONOSCOPY Abnormal electrocardiogram [ECG] [EKG] Coronary artery calcification seen on CAT scan Atypical chest pain (Acute) Diabetic neuropathy Rib fracture Microalbuminuria due to type 2 diabetes mellitus History of biliary duct stent placement Liver transplant recipient (Acute) Dilated bile duct (Acute) Abdominal pain, acute (Acute) Vitamin D deficiency History of gastrointestinal bleeding Dysuria Anxiety 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 (Acute) Chronic anemia (Acute) Hyperlipidemia Hypertension Elevated bilirubin (Acute) Hypothyroidism (Chronic) Medical History Diabetes mellitus type 2 with complications Sinusitis Encephalopathy, hepatic Left wrist sprain Benign essential tremor Generalized weakness LISA (acute kidney injury) Moeller esophagus Portal hypertension Neutropenic typhlitis Pancytopenia Hyperammonemia Hepatic encephalopathy Abdominal pain Hypothyroidism Liver disease Weakness Hyperbilirubinemia REBOLLAR (nonalcoholic steatohepatitis) History of colon polyps BENIGN Depression History of fractured vertebra CURRENT, HX FALL JULY 2021 - FELL OF THE TOILET - NO INTERVENTION AT PRESENT/ DR REYES [facility] FOR TO DISCUSS TX OPTIONS - POTENTIAL BACK BRACE Urge incontinence 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 Abnormal finding on breast imaging Urinary tract infection Fracture of fourth lumbar vertebra Chronic diarrhea SOMETIMES - when takes lactulose Benign paroxysmal positional vertigo of left ear Sensorineural hearing loss (SNHL) of both ears asymmetrical, left WRS Seasonal allergies Thrombocytopenia Syncope Epistaxis Arthritis History of kidney stones GERD (gastroesophageal reflux disease) Anemia HX Temporomandibular joint disorder 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 Anxiety and depression Diabetes mellitus, type 2 GI bleed RECENT HOSPITALIZED - PT DENIES HX GI BLEED Colitis with rectal bleeding Spleen enlarged MONITORS - PT REPORTS FROM THE REBOLLAR 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 Hiatal hernia Stucco keratoses Heel spur B/L feet Moeller's esophagus with esophagitis Surgical History H/O thumb surgery RT/LEFT JOINT REPAIR History of cystoscopy History of appendectomy History of tooth extraction History of tonsillectomy and adenoidectomy H/O total hysterectomy History of arthroscopy of knee Left Knee - meniscus/cartilage History of esophagogastroduodenoscopy (EGD) History of colonoscopy Hx of cholecystectomy Family History Brother Coronary heart disease Heart disease Lupus Mother Family history of diabetes mellitus Hypertension Heart disease Sister Family history of diabetes mellitus Son Family history of diabetes mellitus Father Family hx of colon cancer Hearing loss Hypertension Cancer Heart disease Grandfather (Maternal) Family hx of colon cancer Grandmother (Maternal) Heart disease Grandmother (Paternal) Heart disease Grandfather (Paternal) Heart disease Other No family history of adverse response to anesthesia No family history of bleeding disorder Social History Smoking Status: Former smoker Tobacco Type: Cigarettes Cigarettes Per Day: 7 cigarettes a day.; Second Hand Exposure: No; Do You Dip or Chew Tobacco: No; Hx Alcohol Use: No Hx Substance Use: No Preferred Language: Guyanese Communication Ability: Effective Sports Marketing Specialist Required: No Beliefs That Will Affect Care: Jew marital status: Current Living Situation: Spouse Current Living Situation Comment: lives in ranch style home with current occupational status: employed and retired How many Children do You have: 0 Feels Safe at Home: Yes Assistive Devices: None Allergies Allergies Allergy/AdvReac Type Severity Reaction Status Date / Time bee venom protein (honey bee) Allergy Severe Anaphylaxis Verified 12/27/23 10:55 Influenza Virus Vaccines Allergy Severe Anaphylaxis Verified 12/27/23 10:55 colchicine Allergy Hives Verified 12/27/23 10:55 prednisone AdvReac Severe Anxiety Verified 12/27/23 10:55 tetracycline AdvReac Severe Severe Verified 12/27/23 10:55 stomach pains Home Meds Home Medications Medication Instructions Recorded Confirmed sertraline 100 mg tablet 100 mg PO QPM 02/02/23 03/27/24 amlodipine 10 mg tablet 10 mg PO QAM 04/21/23 03/27/24 cyclosporine 25 mg capsule 50 mg PO BID 10/18/23 03/27/24 [id number]-wwr-vazcl ac 400 1 tab PO QAM 10/18/23 03/27/24 mcg-calcium carb 500 mg-vit K1 20 mcg tablet (Women's 50 Plus Multivitamin) pantoprazole 40 mg tablet,delayed 40 mg PO DAILY 10/18/23 03/27/24 release (Protonix) atorvastatin 20 mg tablet 20 mg PO HS 11/06/23 03/27/24 valacyclovir 1 gram tablet 1,000 mg PO TID 11/23/23 03/27/24 Previous Rx's Medication Instructions Recorded pen needle, diabetic 32 gauge x #100 ea 11/05/23" (BD Ultra-Fine Lani Pen Needle) oxycodone 5 mg tablet 5 mg PO Q6H PRN pain #14 tabs 11/11/23 FreeStyle Lisy 3 Plus Sensor #6 ea 01/10/24 (blood-glucose sensor) semaglutide 0.25 mg or 0.5 mg (2 0.5 mg (0.736 mL) subcut Q7D #9 mL 01/12/24 mg/3 mL) subcutaneous pen injector (Ozempic) valsartan 80 mg tablet 80 mg PO QPM #30 tabs 02/14/24 levothyroxine 100 mcg tablet 100 mcg PO DAILY #30 tabs 02/16/24 Results & Data (ED) Vital Signs Vital Signs - 24 hr 03/27/24 15:45 03/27/24 17:09 03/27/24 17:21 Temperature 36.8 C Temperature Source Temporal Artery Scan Pulse Rate 91 H 71 Pulse Rate [Left Finger] 88 Respiratory Rate 20 16 Respiratory Effort / Characteristics Non-Labored Spontaneous Respiratory Depth Normal Respiratory Pattern Regular Blood Pressure 102/67 Blood Pressure [Left Arm] 109/72 Blood Pressure Mean 78 Blood Pressure Mean [Left Arm] 84 Blood Pressure Position Lying Blood Pressure Position [Left Arm] Pulse Oximetry 94 98 Oxygen Delivery Method Room Air Oxygen Flow Rate Sepsis Recent Fever Within 48 Hours No Sepsis New/Unexplained Change in Mental Status No Sepsis Action Taken by Nursing No Action Required Oxygen Flow Rate - Titration Pulse Oximetry Post Tiitration 03/27/24 18:59 03/27/24 19:00 03/27/24 21:00 Temperature Temperature Source Pulse Rate Pulse Rate [Left Finger] 65 77 Respiratory Rate 18 16 Respiratory Effort / Characteristics Non-Labored Spontaneous Non-Labored Spontaneous Respiratory Depth Respiratory Pattern Blood Pressure Blood Pressure [Left Arm] 115/54 L 122/48 L Blood Pressure Mean Blood Pressure Mean [Left Arm] 74 72 Blood Pressure Position Blood Pressure Position [Left Arm] Lying Pulse Oximetry 89 L 98 95 Oxygen Delivery Method Nasal Cannula Room Air Nasal Cannula Oxygen Flow Rate 0 2 Sepsis Recent Fever Within 48 Hours Sepsis New/Unexplained Change in Mental Status Sepsis Action Taken by Nursing Oxygen Flow Rate - Titration 2 Pulse Oximetry Post Tiitration 98 03/27/24 23:00 Temperature Temperature Source Pulse Rate Pulse Rate [Left Finger] 72 Respiratory Rate 16 Respiratory Effort / Characteristics Non-Labored Spontaneous Respiratory Depth Respiratory Pattern Blood Pressure Blood Pressure [Left Arm] 121/69 Blood Pressure Mean Blood Pressure Mean [Left Arm] 86 Blood Pressure Position Blood Pressure Position [Left Arm] Lying Pulse Oximetry 95 Oxygen Delivery Method Room Air Oxygen Flow Rate Sepsis Recent Fever Within 48 Hours Sepsis New/Unexplained Change in Mental Status Sepsis Action Taken by Nursing Oxygen Flow Rate - Titration Pulse Oximetry Post Tiitration Home Medications Current Medication List: was personally reviewed by me Laboratory Data Attestation: I reviewed the patient's lab results. 03/31/24 07:00 03/30/24 06:37 Lab Results 03/27/24 03/27/24 Range/Units 16:37 19:41 WBC 5.16 (4.8-10.8) K/ul RBC 3.88 L (4.20-5.40) M/uL Hgb 11.8 L (12.0-16.0) g/dl Hct 34.9 L (37.0-47.0) % MCV 89.9 (80.0-100.0) fL MCH 30.4 (25.0-34.0) pg MCHC 33.8 (32.0-36.0) g/dL RDW Std Deviation 52.6 H (36.4-46.3) fL RDW Coeff of Charlee 15.9 H (11.5-14.5) % Plt Count 227 (130-400) K/uL MPV 8.6 L (9.4-12.4) fL Immature Gran % (Auto) 0.6 % Neut % (Auto) 82.0 % Lymph % (Auto) 5.2 % Bulloch % (Auto) 9.3 % Eos % (Auto) 2.5 % Baso % (Auto) 0.4 % Neut # (Auto) 4.23 (1.40-6.50) K/uL Lymph # (Auto) 0.27 L (1.20-3.40) K/uL Bulloch # (Auto) 0.48 (0.11-0.59) K/uL Eos # (Auto) 0.13 (0.00-0.50) K/uL Baso # (Auto) 0.02 (0.00-0.20) K/uL Immature Gran # (Auto) 0.03 (0.01-0.20) K/uL Sodium 142 (136-145) mmol/L Potassium 3.8 (3.5-5.1) mmol/L Chloride 107 (98-107) mmol/L Carbon Dioxide 29 (21-32) mmol/L Anion Gap 6 (3-11) BUN 12 (6-23) mg/dl Creatinine 1.22 H (0.6-1.2) mg/dl Est Cr Clr Drug Dosing 39.4 ml/min eGFR 47.74 BUN/Creatinine Ratio 9.8 L (10-20) Glucose 124 H (70-99(Fasting)) mg/dl Calcium 10.0 (8.6-10.3) mg/dl Total Bilirubin 0.9 (0.2-1.0) mg/dl AST 28 (13-39) U/L ALT 42 (7-52) U/L Alkaline Phosphatase 164 H (34-104) U/L Total Protein 6.8 (6.0-8.3) gm/dl Albumin 4.2 (3.4-5.0) gm/dl Globulin 2.6 (2.5-4.0) gm/dl Albumin/Globulin Ratio 1.6 (0.9-2) Lipase 15 (11-82) U/L Urine Color Yellow Urine Appearance Clear (Clear) Urine pH 5.5 (4.5-7.5) Ur Specific [place] 1.022 (1.000-1.030) Urine Protein Negative (Negative) Urine Glucose (UA) Negative (Negative) Urine Ketones Negative (Negative) Urine Blood Negative (Negative) Urine Nitrite Negative (Negative) Urine Bilirubin Negative (Negative) Urine Urobilinogen Negative (Negative) Ur Leukocyte Esterase 2+ H (Negative) Urine WBC (Auto) 21-50 H (0-5) /hpf Urine RBC (Auto) 0-2 (0-2) /hpf U Hyaline Cast (Auto) 6-10 H (0-2) /lpf U Epithel Cells (Auto) 0-2 (0-2) /hpf Urine Bacteria (Auto) None Seen (None Seen) Administered Medications Amlodipine Besylate (Amlodipine Besylate 5 Mg Tab) [facility] [place]: 04/27/24 08:59 Last Admin: 03/30/24 08:34 Dose: 10 mg Documented By: Admin: 03/29/24 09:10 Dose: 10 mg Documented By: Admin: 03/28/24 09:00 Dose: 10 mg Documented By: CATHLEEN Atorvastatin Calcium (Atorvastatin 20 Mg Tab) 20 mg PO PRIMITIVO Stop: 04/27/24 20:59 Last Admin: 03/30/24 19:53 Dose: 20 mg Documented By: Admin: 03/29/24 22:05 Dose: 20 mg Documented By: MLIlan Admin: 03/28/24 21:14 Dose: 20 mg Documented By: CATHY Cyclosporine (Cyclosporine (Sandimmune) 25 Mg Cap) 50 mg PO QPM PRIMITIVO Stop: 04/27/24 20:59 Last Admin: 03/30/24 19:53 Dose: 50 mg Documented By: Admin: 03/29/24 22:07 Dose: 50 mg Documented By: Admin: 03/28/24 21:13 Dose: 50 mg Documented By: CATHY Cyclosporine (Cyclosporine (Sandimmune) 25 Mg Cap) 25 mg PO QAM PRIMITIVO Stop: 04/27/24 08:59 Last Admin: 03/30/24 08:36 Dose: 25 mg Documented By: Admin: 03/29/24 09:09 Dose: 25 mg Documented By: Admin: 03/28/24 08:59 Dose: 25 mg Documented By: CATHLEEN Fentanyl (Fentanyl 25 Mcg/Hr Tdsy) 1 patch TD Q3D PRIMITIVO Stop: 04/12/24 16:29 Last Admin: 03/29/24 16:38 Dose: 1 patch Documented By: CATHLEEN Gabapentin (Gabapentin 100 Mg Cap) 100 mg PO TID PRIMITIVO Stop: 04/28/24 20:59 Last Admin: 03/30/24 19:40 Dose: 100 mg Documented By: Admin: 03/30/24 14:59 Dose: 100 mg Documented By: AEIlan Admin: 03/30/24 08:36 Dose: 100 mg Documented By: AEIlan Admin: 03/29/24 22:07 Dose: Not Given Documented By: JEREMIAH Piperacillin Sod/Tazobactam Sod (Zosyn) 4.5 gm in 100 mls @ 25 mls/hr IV Q8H [facility]; Protocol Stop: 04/07/24 06:59 Last Infusion: 03/31/24 05:03 Dose: Infused Documented By: Admin: 03/30/24 23:55 Dose: 25 mls/hr Documented By: Infusion: 03/30/24 19:49 Dose: Infused Documented By: Admin: 03/30/24 15:39 Dose: 25 mls/hr Documented By: Infusion: 03/30/24 11:26 Dose: Infused Documented By: Admin: 03/30/24 05:34 Dose: 25 mls/hr Documented By: Infusion: 03/30/24 04:30 Dose: Infused Documented By: Admin: 03/30/24 00:17 Dose: 25 mls/hr Documented By: Infusion: 03/29/24 19:33 Dose: Infused Documented By: Admin: 03/29/24 15:20 Dose: 25 mls/hr Documented By: Infusion: 03/29/24 10:10 Dose: Infused Documented By: Admin: 03/29/24 06:09 Dose: 25 mls/hr Documented By: Infusion: 03/29/24 03:24 Dose: Infused Documented By: Admin: 03/28/24 23:23 Dose: 25 mls/hr Documented By: Infusion: 03/28/24 20:07 Dose: Infused Documented By: Admin: 03/28/24 15:05 Dose: 25 mls/hr Documented By: Infusion: 03/28/24 10:10 Dose: Infused Documented By: Admin: 03/28/24 06:08 Dose: 25 mls/hr Documented By: CATHY Insulin Aspart (Insulin Aspart Per Unit Charge) 0 units SC ACHS [facility] Stop: 04/27/24 07:29 Last Admin: 03/30/24 20:38 Dose: Not Given Documented By: Admin: 03/30/24 17:23 Dose: Not Given Documented By: Admin: 03/30/24 12:44 Dose: Not Given Documented By: Admin: 03/30/24 08:40 Dose: Not Given Documented By: Admin: 03/29/24 22:07 Dose: Not Given Documented By: JEREMIAH Co-signed By: YARELY Admin: 03/29/24 16:42 Dose: Not Given Documented By: Admin: 03/29/24 11:39 Dose: Not Given Documented By: Admin: 03/29/24 07:59 Dose: Not Given Documented By: Admin: 03/28/24 21:14 Dose: Not Given Documented By: CATHY Co-signed By: [id number] Admin: 03/28/24 17:21 Dose: Not Given Documented By: Admin: 03/28/24 12:23 Dose: Not Given Documented By: Admin: 03/28/24 08:22 Dose: Not Given Documented By: CATHLEEN Levothyroxine Sodium (Levothyroxine Sodium 100 Mcg Tablet) 100 mcg PO DAILYBB [facility] Stop: 04/27/24 06:29 Last Admin: 03/31/24 06:18 Dose: 100 mcg Documented By: Admin: 03/30/24 05:27 Dose: 100 mcg Documented By: Admin: 03/29/24 06:09 Dose: 100 mcg Documented By: Admin: 03/28/24 06:11 Dose: 100 mcg Documented By: CATHY Lidocaine HCl (Lidocaine 2% Jelly 5 Ml Tube) 5 ml EXT Q4H PRN PRN Reason: Affected Skin Folds Stop: 04/27/24 19:18 Last Admin: 03/29/24 19:56 Dose: 5 ml Documented By: Admin: 03/29/24 11:01 Dose: 5 ml Documented By: Admin: 03/29/24 06:05 Dose: 5 ml Documented By: CATHY Lorazepam (Lorazepam 0.5 Mg Tab) 0.5 mg PO Q6H PRN PRN Reason: Anxiety/Agitation Stop: 04/28/24 14:54 Last Admin: 03/31/24 04:12 Dose: 0.5 mg Documented By: Admin: 03/30/24 19:52 Dose: 0.5 mg Documented By: Admin: 03/30/24 19:39 Dose: 0.5 mg Documented By: Admin: 03/30/24 11:27 Dose: 0.5 mg Documented By: Admin: 03/30/24 04:50 Dose: 0.5 mg Documented By: Admin: 03/29/24 22:05 Dose: 0.5 mg Documented By: Admin: 03/29/24 15:13 Dose: 0.5 mg Documented By: CATHLEEN Miscellaneous (Fentanyl Patch Remove & Waste) 1 each N/A Q3D PRIMITIVO Stop: 04/28/24 16:28 Last Admin: 03/29/24 16:41 Dose: 1 each Documented By: CATHLEEN Co-signed By: STACI Bolañosaneous (Check Fentanyl Patch Placement) 1 each N/A QS PRIMITIVO Stop: 04/29/24 00:00 Last Admin: 03/31/24 00:05 Dose: Not Given Documented By: Admin: 03/30/24 15:12 Dose: Not Given Documented By: AEIlan Admin: 03/30/24 08:34 Dose: Not Given Documented By: AEIlan Admin: 03/30/24 00:14 Dose: 1 each Documented By: MLIlan Morphine Sulfate (Morphine Sulfate 4 Mg/Ml 1 Ml Carp\\Vial) 4 mg IV Q2H PRN PRN Reason: Pain (6,7,8,9,10) Stop: 04/10/24 23:28 Last Admin: 03/31/24 02:19 Dose: 4 mg Documented By: Admin: 03/30/24 23:47 Dose: 4 mg Documented By: Admin: 03/29/24 22:05 Dose: 4 mg Documented By: JEREMIAH Morphine Sulfate (Morphine Sulfate 2 Mg/Ml Carp) 2 mg IV Q2H PRN PRN Reason: Pain (1,2,3,4,5) & Pre PT Stop: 04/10/24 23:28 Last Admin: 03/31/24 04:10 Dose: 2 mg Documented By: Admin: 03/30/24 19:39 Dose: 2 mg Documented By: Admin: 03/30/24 15:04 Dose: 2 mg Documented By: Admin: 03/30/24 09:54 Dose: 2 mg Documented By: Admin: 03/30/24 07:21 Dose: 2 mg Documented By: Admin: 03/30/24 04:50 Dose: 2 mg Documented By: Admin: 03/30/24 00:21 Dose: 2 mg Documented By: Admin: 03/29/24 19:56 Dose: 2 mg Documented By: JEREMIAH Ondansetron HCl (Ondansetron Inj 2 Mg/Ml 2 Ml Vial) 4 mg IV Q6H PRN PRN Reason: Nausea And Vomiting Stop: 04/26/24 23:28 Last Admin: 03/30/24 05:30 Dose: 4 mg Documented By: Admin: 03/28/24 08:50 Dose: 4 mg Documented By: CATHLEEN Pantoprazole Sodium (Pantoprazole 40 Mg Tab) 40 mg PO DAILY PRIMITIVO Stop: 04/27/24 08:59 Last Admin: 03/30/24 08:36 Dose: 40 mg Documented By: Admin: 03/29/24 09:10 Dose: 40 mg Documented By: Admin: 03/28/24 09:01 Dose: 40 mg Documented By: CATHLEEN Polyethylene Glycol (Polyethylene (Miralax) 17 Gm Pack) 17 gm PO DAILY PRIMITIVO Stop: 04/27/24 08:59 Last Admin: 03/30/24 08:37 Dose: 17 gm Documented By: Admin: 03/29/24 09:15 Dose: 17 gm Documented By: Admin: 03/28/24 09:02 Dose: Not Given Documented By: CATHLEEN Sertraline HCl (Sertraline Hcl 100 Mg Tablet) 100 mg PO QPM PRIMITIVO Stop: 04/27/24 20:59 Last Admin: 03/30/24 19:53 Dose: 100 mg Documented By: Admin: 03/29/24 22:06 Dose: 100 mg Documented By: Admin: 03/28/24 21:15 Dose: 100 mg Documented By: CATHY Valacyclovir HCl (Valacyclovir Hcl 500 Mg Tablet) 1,000 mg PO TID PRIMITIVO Stop: 04/27/24 08:59 Last Admin: 03/30/24 19:52 Dose: 1,000 mg Documented By: ALKwesi Admin: 03/30/24 14:59 Dose: 1,000 mg Documented By: Admin: 03/30/24 08:36 Dose: 1,000 mg Documented By: AEIlan Admin: 03/29/24 22:06 Dose: 1,000 mg Documented By: Admin: 03/29/24 13:49 Dose: 1,000 mg Documented By: Admin: 03/29/24 09:10 Dose: 1,000 mg Documented By: Admin: 03/28/24 21:15 Dose: 1,000 mg Documented By: Admin: 03/28/24 14:10 Dose: 1,000 mg Documented By: Admin: 03/28/24 09:01 Dose: 1,000 mg Documented By: CATHLEEN Valsartan (Valsartan 80 Mg Tab) 80 mg PO QPM PRIMITIVO Stop: 04/27/24 20:59 Last Admin: 03/30/24 19:53 Dose: 80 mg Documented By: Admin: 03/29/24 22:08 Dose: 80 mg Documented By: Admin: 03/28/24 21:16 Dose: 80 mg Documented By: CATHY Discontinued Medications Amoxicillin/Clavulanate Potassium (Amoxicillin/Clavulanate 875 Mg Tab) 1 tab PO NOW ONE; Protocol Stop: 03/27/24 20:58 Last Admin: 03/27/24 21:06 Dose: 1 tab Documented By: ARELIS Filgrastim (Filgrastim 480 Mcg/1.6 Ml Vial) 480 mcg SC ONE ONE Stop: 03/30/24 19:01 Last Admin: 03/30/24 19:39 Dose: 480 mcg Documented By: GAB Hydromorphone HCl (Hydromorphone Inj 0.5 Mg/0.5 Ml Syr) 0.5 mg IV NOW STA Stop: 03/27/24 18:13 Last Admin: 03/27/24 18:31 Dose: 0.5 mg Documented By: ARELIS Sodium Chloride (Nss) 1,000 mls @ 999 mls/hr IV .Q1H1M PRIMITIVO Stop: 03/27/24 19:12 Last Infusion: 03/27/24 19:44 Dose: Infused Documented By: Admin: 03/27/24 18:33 Dose: 999 mls/hr Documented By: ARELIS Piperacillin Sod/Tazobactam Sod (Zosyn) 4.5 gm in 100 mls @ 200 mls/hr IV ONE ONE; Protocol Stop: 03/28/24 01:29 Last Infusion: 03/28/24 02:03 Dose: Infused Documented By: Admin: 03/28/24 01:33 Dose: 200 mls/hr Documented By: RES Sodium Chloride (Nss) 1,000 mls @ 100 mls/hr IV .Q10H PRIMITIVO Stop: 03/29/24 11:14 Last Infusion: 03/29/24 17:27 Dose: Infused Documented By: Admin: 03/29/24 07:16 Dose: 100 mls/hr Documented By: Infusion: 03/29/24 07:16 Dose: Infused Documented By: Admin: 03/28/24 21:20 Dose: 100 mls/hr Documented By: Infusion: 03/28/24 21:20 Dose: Infused Documented By: Admin: 03/28/24 11:32 Dose: 100 mls/hr Documented By: CATHLEEN Ioversol (Optiray 320 100ml) 93 ml IV ONCE ONE Stop: 03/27/24 19:25 Last Admin: 03/27/24 19:24 Dose: 93 ml Documented By: GUTIERREZ Lorazepam (Lorazepam 1 Mg/1 Ml Syr Ed Inj Use) 1 mg IV ONE STA Stop: 03/27/24 19:01 Last Admin: 03/27/24 19:06 Dose: 1 mg Documented By: ARELIS Lorazepam (Lorazepam 2 Mg/1 Ml Vial) 0.5 mg IV NOW STA Stop: 03/28/24 11:14 Last Admin: 03/28/24 11:26 Dose: 0.5 mg Documented By: CATHLEEN Lorazepam (Lorazepam 0.5 Mg Tab) 0.5 mg PO ONE ONE Stop: 03/29/24 06:37 Last Admin: 03/29/24 06:40 Dose: 0.5 mg Documented By: RES Morphine Sulfate (Morphine Sulfate 4 Mg/Ml 1 Ml Carp\\Vial) 4 mg IV Q3H PRN PRN Reason: Pain (6,7,8,9,10) Stop: 04/10/24 23:28 Last Admin: 03/29/24 15:15 Dose: 4 mg Documented By: Admin: 03/29/24 12:06 Dose: 4 mg Documented By: Admin: 03/29/24 09:04 Dose: 4 mg Documented By: Admin: 03/29/24 03:23 Dose: 4 mg Documented By: Admin: 03/28/24 21:31 Dose: 4 mg Documented By: Admin: 03/28/24 18:27 Dose: 4 mg Documented By: Admin: 03/28/24 14:21 Dose: 4 mg Documented By: Admin: 03/28/24 09:50 Dose: 4 mg Documented By: Admin: 03/28/24 06:08 Dose: 4 mg Documented By: RES Ondansetron HCl (Ondansetron Inj 2 Mg/Ml 2 Ml Vial) 4 mg IV NOW STA Stop: 03/27/24 18:13 Last Admin: 03/27/24 18:33 Dose: 4 mg Documented By: ARELIS Imaging Data Radiologist's Impression: Abdomen/Pelvis CT 03/27/24 18:46 Exam(s): CT ABDOMEN + PELVIS With Contrast IV Amt: 93 ml opti 320 EXAM: CT Abdomen and Pelvis With Intravenous Contrast CLINICAL HISTORY: Reason for exam: diffuse abd pain, colorectal CA. TECHNIQUE: Axial computed tomography images of the abdomen and pelvis with intravenous contrast. CTDI is 18 mGy and DLP is 972 mGy-cm. Automated exposure control was utilized for the study. A dose lowering technique was utilized adhering to the principles of ALARA. CONTRAST: Patient received 93 ml opti 320 of IV contrast COMPARISON: 08/23/2023 FINDINGS: ABDOMEN: Liver: Postsurgical changes in the liver. Gallbladder and bile ducts: Cholecystectomy. Biliary dilatation secondary to cholecystectomy status. Pancreas: Unremarkable. Spleen: Spleen measures 15 cm. Adrenals: Unremarkable. Kidneys and ureters: Unremarkable. No obstructing stones. No hydronephrosis. Stomach and bowel: Colonic mucosal thickening consistent with colitis. There is also mild diverticulitis in the sigmoid colon. No perforation or abscess. PELVIS: Appendix: No findings to suggest acute appendicitis. Bladder: Unremarkable. Reproductive: Unremarkable as visualized. ABDOMEN and PELVIS: Intraperitoneal space: Unremarkable. No free air. No significant fluid collection. Bones/joints: Chronic compression deformity at L4. Soft tissues: Unremarkable. Vasculature: Unremarkable. Lymph nodes: Unremarkable. IMPRESSION: 1. Colonic mucosal thickening consistent with colitis. There is also mild diverticulitis in the sigmoid colon. No perforation or abscess. 2. Splenomegaly. Electronically signed by: Rob Acuña MD 03/27/24 20:51 PM Discharge Plan Visit Data Chief Complaint: Abdominal Pain Stated Complaint: ABDOMINAL PAIN, COLON CANCER ED Provider: Melanie Rodarte Discharge Problem: UTI (urinary tract infection), Diverticulitis Patient Disposition: Admitted As Inpatient Condition: Good Discharge Instructions Interventions: ED Discharge Assessment Last Done: 03/27/24 23:45
--- NOTE | 2024-03-27 23:08 | History & Physical Report ---
Date of Service March 27, 2024 Assessment & Plan (1) Diverticulitis: (2) LISA (acute kidney injury): Plan 68-year-old female PMHx liver transplant T2DM, hypothyroidism, depression, GERD, cancer and chronic anemia presenting to ED for generalized abdominal pain ongoing since 03/09/2024 but worsening within the past 24 hours. States that she has been in the hospital several times for the same complaint. On initial ED workup, found to have no leukocytosis and lipase was 15. CTAP did reveal colonic mucosal thickening consistent with colitis and mild diverticulitis in the sigmoid colon without perforation or abscess. LFTs were WNL with exception alk phos 164. Pt was to be sent home but after her discussion with ED doc, stated that her pain was too severe to manage at home so admission was recommended. #Diverticulitis Ongoing severe abdominal pain since 03/09/2024, worsening within the past 24hours with associated N/V. Denying gross blood in stool, but has been having mix between diarrhea and constipation. No episodes of vomiting since early in AM day of arrival. - H&H stable on admission but pt does have a history of chronic anemia at baseline, admitting H/H 11.8/34.9; CMP grossly WNL w/ exception Cr 1.22 but BUN 12. - CTAP colonic mucosal thickening consistent with colitis, mild diverticulitis in the sigmoid colon, no perforation or abscess, splenomegaly - Pt has had minimal success maintaining oral intake; Will start on clear liquid diet and advance as tolerated; If patient unable to tolerate diet, will switch to NPO and add maintenance fluids at that time - Pain management w/ morphine as ordered as well as bowel regimen; Abx- Augmentin #LISA Minimally elevated Cr at time of admission, likely 2/2 poor oral intake given ongoing and worsening abdominal pain. - Cr 1.22, BUN 12; ratio 9.8 - CMP a.m. - UA with LE, WBC, and hyaline cast - Has had dysuria since radiation, no worsening of symptoms; for now, will manage with abx for diverticulitis but pending cx will adjust as appropriate - Received NSS 1L in ED- Continue to promote oral hydration, add IVF as appropriate #Liver transplant recipient September 2022 at [facility], 2/2 REBOLLAR - LFTs stable at time of admission; will follow throughout stay - Continue outpatient medications - Cyclosporine 25mg in am, 50mg in pm #Malignant neoplasm of anal canal Recently completed radiation therapy 02/2024. Follows with Dr. Bowie and Milbridge Wilson for such. - Continue conservative measures prn for perianal skin reactions as suggested by rad/onc note 02/28/2024 -- topical steroid cream prn (pt will bring this in) - Will be placed on bowel regimen given pain management; will monitor as appropriate if pt needs more supportive management for this #T2DM At home regimen, semaglutide SQ (sundays) - hold - Most recent A1C 10/2023 5.6% - SSI with target BSG range 110-140mg/dL, CF 35, carb ratio 10 - T2DM diet; BSG ACHS while eating - Adjust regimen as needed #Chronic anemia- H&H on admission 11.8/34.9, follow CBC throughout course #HTN- amlodipine, losartan #HLD- atorvastatin #Hypothyroidism- levothyroxine #GERD- pantoprazole #Mood- Sertraline Dispo: Admit VTE prophylaxis: SCDs; Encourage ambulation as able to also assist in bowel habits This document was dictated utilizing GridPoint. Please excuse any grammatical errors that may be secondary to use of this software. Admission and Anticipated Discharge Date Admission Date: 03/27/2024 History of Present Illness Chief Complaint: Abdominal pain Primary Care Provider: Lakisha Arriaga MD 68-year-old female PMHx liver transplant T2DM, hypothyroidism, depression, GERD, cancer and chronic anemia presenting to ED for generalized abdominal pain ongoing since 03/09/2024 but worsening within the past 24 hours. States that she has been in the hospital several times for the same complaint. Reports that she has stage I colorectal cancer, had just finished chemo and radiation in February 2024. Describes abdominal pain as a mix between sharp and cramping pain which is mainly localized to LLQ but does spread across entire lower abdomen. The pain is worse when the patient is attempting to have a bowel movement, and alleviated very temporarily after Po quickly returned. Patient states that her pain is always a 10 out of 10 on the pain scale and has not improved. States that over the past few days, her nausea and vomiting has been increasing and getting worse she has been unable to keep food down. Most recent episode of vomiting was the morning of arrival, brushing her teeth. She also has been having difficulty with urination and dysuria since completion of radiation. Has been having some episodes of diarrhea but has been approximately 3 days since her last normal bowel movement, she does admit to taking senna a day or so ago to try to alleviate this. Is having significant burning with bowel movements. Oncologist has prescribed her oxycodone 10 mg total every 6 hours and fentanyl patches for the pain that she has been experiencing with the patient has had no relief with these interventions. The patient's is present in the room at time of visit. He states that he is very concerned about his 's pain because it has gotten to the point where she is screaming out in pain to the point where "the people outside came hear her." The patient reiterates that she is just in significant pain and it has been exhausting her. She did take her daily medications. Otherwise denying chest pain, shortness of breath, palpitations, numbness/tingling, fever/chills. Please see Dr. Vences's attestation for adjustments/additions to treatment plan. Allergies Allergy/AdvReac Type Severity Reaction Status Date / Time bee venom protein (honey bee) Allergy Severe Anaphylaxis Verified 12/27/23 10:55 Influenza Virus Vaccines Allergy Severe Anaphylaxis Verified 12/27/23 10:55 colchicine Allergy Hives Verified 12/27/23 10:55 prednisone AdvReac Severe Anxiety Verified 12/27/23 10:55 tetracycline AdvReac Severe Severe Verified 12/27/23 10:55 stomach pains Home Medications Medication Instructions Recorded Confirmed Type sertraline 100 mg tablet 100 mg PO QPM 02/02/23 03/27/24 History amlodipine 10 mg tablet 10 mg PO QAM 04/21/23 03/27/24 History cyclosporine 25 mg capsule 50 mg PO BID 10/18/23 03/27/24 History acycfuik-pfn-cptqn ac 400 1 tab PO QAM 10/18/23 03/27/24 History mcg-calcium carb 500 mg-vit K1 20 mcg tablet (Women's 50 Plus Multivitamin) pantoprazole 40 mg tablet,delayed 40 mg PO DAILY 10/18/23 03/27/24 History release (Protonix) pen needle, diabetic 32 gauge x #100 ea 11/05/23 Rx " (BD Ultra-Fine Lani Pen Needle) atorvastatin 20 mg tablet 20 mg PO HS 11/06/23 03/27/24 History oxycodone 5 mg tablet 5 mg PO Q6H PRN pain #14 tabs 11/11/23 03/27/24 Rx valacyclovir 1 gram tablet 1,000 mg PO TID 11/23/23 03/27/24 History FreeStyle Lisy 3 Plus Sensor #6 ea 01/10/24 Rx (blood-glucose sensor) semaglutide 0.25 mg or 0.5 mg (2 0.5 mg (0.736 mL) subcut Q7D #9 mL 01/12/24 03/27/24 Rx mg/3 mL) subcutaneous pen injector (Ozempic) valsartan 80 mg tablet 80 mg PO QPM #30 tabs 02/14/24 03/27/24 Rx levothyroxine 100 mcg tablet 100 mcg PO DAILY #30 tabs 02/16/24 03/27/24 Rx Past Med/Surg History Problem List (Updated 03/28/24 @ 00:15 by Eliseo Chowdhury) Diverticulitis (Acute) UTI (urinary tract infection) (Acute) Abnormal PET scan of colon History of liver transplant Mass of anus Abnormal positron emission tomography (PET) scan Ex-smoker Bilateral tinnitus Pulmonary nodule Abnormal CT scan, neck Abnormal CT scan of head Pericarditis Anterior neck pain UTI (urinary tract infection) HX, JULY 2021 -HOSPITALIZED FOR , NOW RESOLVED DURING TESTING FOUND 2 LUMPS IN INTESTINES...REASON FOR UPCOMING COLONOSCOPY Abnormal electrocardiogram [ECG] [EKG] Coronary artery calcification seen on CAT scan Atypical chest pain (Acute) Diabetic neuropathy Rib fracture Microalbuminuria due to type 2 diabetes mellitus History of biliary duct stent placement Liver transplant recipient (Acute) Dilated bile duct (Acute) Abdominal pain, acute (Acute) Vitamin D deficiency History of gastrointestinal bleeding Dysuria Anxiety 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 (Acute) Chronic anemia (Acute) Hyperlipidemia Hypertension Elevated bilirubin (Acute) Hypothyroidism (Chronic) Medical History Diabetes mellitus type 2 with complications Sinusitis Encephalopathy, hepatic Left wrist sprain Benign essential tremor Generalized weakness LISA (acute kidney injury) Moeller esophagus Portal hypertension Neutropenic typhlitis Pancytopenia Hyperammonemia Hepatic encephalopathy Abdominal pain Hypothyroidism Liver disease Weakness Hyperbilirubinemia REBOLLAR (nonalcoholic steatohepatitis) History of colon polyps BENIGN Depression History of fractured vertebra CURRENT, HX FALL JULY 2021 - FELL OF THE TOILET - NO INTERVENTION AT PRESENT/ DR REYES [facility]OMING [facility] FOR TO DISCUSS TX OPTIONS - POTENTIAL BACK BRACE Urge incontinence 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 Abnormal finding on breast imaging Urinary tract infection Fracture of fourth lumbar vertebra Chronic diarrhea SOMETIMES - when takes lactulose Benign paroxysmal positional vertigo of left ear Sensorineural hearing loss (SNHL) of both ears asymmetrical, left WRS Seasonal allergies Thrombocytopenia Syncope Epistaxis Arthritis History of kidney stones GERD (gastroesophageal reflux disease) Anemia HX Temporomandibular joint disorder 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 Anxiety and depression Diabetes mellitus, type 2 GI bleed RECENT HOSPITALIZED - PT DENIES HX GI BLEED Colitis with rectal bleeding Spleen enlarged MONITORS - PT REPORTS FROM THE REBOLLAR 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 Hiatal hernia Stucco keratoses Heel spur B/L feet Moeller's esophagus with esophagitis Surgical History H/O thumb surgery RT/LEFT JOINT REPAIR History of cystoscopy History of appendectomy History of tooth extraction History of tonsillectomy and adenoidectomy H/O total hysterectomy History of arthroscopy of knee Left Knee - meniscus/cartilage History of esophagogastroduodenoscopy (EGD) History of colonoscopy Hx of cholecystectomy Family History Brother Coronary heart disease Heart disease Lupus Mother Family history of diabetes mellitus Hypertension Heart disease Sister Family history of diabetes mellitus Son Family history of diabetes mellitus Father Family hx of colon cancer Hearing loss Hypertension Cancer Heart disease Grandfather (Maternal) Family hx of colon cancer Grandmother (Maternal) Heart disease Grandmother (Paternal) Heart disease Grandfather (Paternal) Heart disease Other No family history of adverse response to anesthesia No family history of bleeding disorder Social History Smoking Status: Former smoker Second Hand Exposure: No; Do You Dip or Chew Tobacco: No; Hx Alcohol Use: No Hx Substance Use: No Preferred Language: German Communication Ability: Effective Inside Barrel Polisher Required: No Beliefs That Will Affect Care: None marital status: Current Living Situation: Spouse Current Living Situation Comment: lives in ranch style home with current occupational status: employed and retired How many Children do You have: 0 Feels Safe at Home: Yes Assistive Devices: None Review of Systems Review of Systems: All systems reviewed & are unremarkable except as noted in Subjective Physical Exam Physical Exam: General: No acute distress, appearing in pain Skin: Warm and dry, without rashes or lesions. No cyanosis or clubbing Head: Normocephalic, atraumatic Eyes: PERRL, conjunctivae clear, sclera non-icteric; EOM intact ENT: External ear and ear canal without swelling; nose atraumatic; good dentition, tongue normal appearance, pharynx normal without tonsillar swelling or exudate Neck: Supple, no LAD; no JVD Cardio: RRR, no M/G/R, S1 and S2 normal Resp: No respiratory distress, Lungs CTA in all lobes bilaterally, no wheezes, rales, or rhonchi Abdomen: Soft, symmetric, tenderness to palpation in LLQ, mild tenderness throughout; No rebound tenderness, no guarding; No distention; No masses or hepatosplenomegaly; Bowel sounds normoactive. MSK: No deformities, full ROM throughout; pulses palpable and equal; no edema. Neuro: Awake, alert; CN grossly intact Psych: Tearful; Appropriate mood and affect; good judgement and insight. is present in room at time of visit. Results & Data Results & Data Vital Signs (Past 12 Hours) Vital Signs Temp Pulse Pulse Resp BP BP Pulse Ox 03/27/24 21:00 77 16 122/48 L 95 03/27/24 19:00 65 18 115/54 L 98 03/27/24 18:59 89 L 03/27/24 17:21 71 03/27/24 17:09 88 16 109/72 98 03/27/24 15:45 36.8 C 91 H 20 102/67 94 O2 Del Method O2 Flow Rate 03/27/24 21:00 Nasal Cannula 2 03/27/24 19:00 Room Air 03/27/24 18:59 Nasal Cannula 0 03/27/24 17:21 03/27/24 17:09 03/27/24 15:45 Room Air Laboratory Results 03/27/24 19:41 Urine Culture - Pending Urine,Clean Catch 03/27/24 03/27/24 19:41 16:37 WBC 5.16 RBC 3.88 L Hgb 11.8 L Hct 34.9 L MCV 89.9 MCH 30.4 MCHC 33.8 RDW Std Deviation 52.6 H RDW Coeff of Charlee 15.9 H Plt Count 227 MPV 8.6 L Immature Gran % (Auto) 0.6 Neut % (Auto) 82.0 Lymph % (Auto) 5.2 Russell % (Auto) 9.3 Eos % (Auto) 2.5 Baso % (Auto) 0.4 Neut # (Auto) 4.23 Lymph # (Auto) 0.27 L Russell # (Auto) 0.48 Eos # (Auto) 0.13 Baso # (Auto) 0.02 Immature Gran # (Auto) 0.03 Sodium 142 Potassium 3.8 Chloride 107 Carbon Dioxide 29 Anion Gap 6 BUN 12 Creatinine 1.22 H Est Cr Clr Drug Dosing 39.4 eGFR 47.74 BUN/Creatinine Ratio 9.8 L Glucose 124 H Calcium 10.0 Total Bilirubin 0.9 AST 28 ALT 42 Alkaline Phosphatase 164 H Total Protein 6.8 Albumin 4.2 Globulin 2.6 Albumin/Globulin Ratio 1.6 Lipase 15 Urine Color Yellow Urine Appearance Clear Urine pH 5.5 Ur Specific [place] 1.022 Urine Protein Negative Urine Glucose (UA) Negative Urine Ketones Negative Urine Blood Negative Urine Nitrite Negative Urine Bilirubin Negative Urine Urobilinogen Negative Ur Leukocyte Esterase 2+ H Urine WBC (Auto) 21-50 H Urine RBC (Auto) 0-2 U Hyaline Cast (Auto) 6-10 H U Epithel Cells (Auto) 0-2 Urine Bacteria (Auto) None Seen Diagnostic Findings Abdomen/Pelvis CT 03/27/24 18:46 Exam(s): CT ABDOMEN + PELVIS With Contrast IV Amt: 93 ml opti 320 EXAM: CT Abdomen and Pelvis With Intravenous Contrast CLINICAL HISTORY: Reason for exam: diffuse abd pain, colorectal CA. TECHNIQUE: Axial computed tomography images of the abdomen and pelvis with intravenous contrast. CTDI is 18 mGy and DLP is 972 mGy-cm. Automated exposure control was utilized for the study. A dose lowering technique was utilized adhering to the principles of ALARA. CONTRAST: Patient received 93 ml opti 320 of IV contrast COMPARISON: 08/23/2023 FINDINGS: ABDOMEN: Liver: Postsurgical changes in the liver. Gallbladder and bile ducts: Cholecystectomy. Biliary dilatation secondary to cholecystectomy status. Pancreas: Unremarkable. Spleen: Spleen measures 15 cm. Adrenals: Unremarkable. Kidneys and ureters: Unremarkable. No obstructing stones. No hydronephrosis. Stomach and bowel: Colonic mucosal thickening consistent with colitis. There is also mild diverticulitis in the sigmoid colon. No perforation or abscess. PELVIS: Appendix: No findings to suggest acute appendicitis. Bladder: Unremarkable. Reproductive: Unremarkable as visualized. ABDOMEN and PELVIS: Intraperitoneal space: Unremarkable. No free air. No significant fluid collection. Bones/joints: Chronic compression deformity at L4. Soft tissues: Unremarkable. Vasculature: Unremarkable. Lymph nodes: Unremarkable. IMPRESSION: 1. Colonic mucosal thickening consistent with colitis. There is also mild diverticulitis in the sigmoid colon. No perforation or abscess. 2. Splenomegaly. Electronically signed by: Rob Acuña MD 03/27/24 20:51 PM Medications Administered NSS 1L IV Ondansetron 4mg IV Lorazepam 1mg IV Hydromorphone 0.5mg IV Amox/Clavu 1 tab po Code Status & VTE Plan Code Status DNR/DNI VTE Prophylaxis Plan VTE Prophylaxis will be ordered: Yes Supervising Physician Co-Signing Physician Notes Attending addendum: I have physically seen this patient, have supervised the AMY's activities, and agree with the H&P unless as otherwise noted. Assessment and Plan: The patient is a 68-year-old female with a past medical history including liver transplant, diabetes mellitus type 2, hypothyroidism, depression, GERD, cancer,. She presents to the emergency department with complaint of generalized abdominal pain since 03/09/2024, but worsening over the past 24 hours. Her pain is worse in the left lower area. Her reports that he is unable to control her pain at home with her current regimen of oxycodone. CT scan of abdomen and pelvis suggest colitis, with mild diverticulitis in the sigmoid colon, without perforation or abscess. Patient is referred to the hospitalist service for admission for further treatment. #Colitis/mild diverticulitis- Patient has developed nausea and vomiting with worsening pain over the past 24 hours. Symptoms have been alternating between loose stools and constipation. She reports no additional vomiting since early the morning of 03/27. CT abdomen/pelvis with colonic mucosal thickening consistent with colitis, mild diverticulitis and sigmoid colon, without perforation or abscess. Splenomegaly is noted Patient will start with clear liquid diet and advance as tolerated Maintenance IV fluids as noted Pain management with morphine IV Patient was initially attempted to be placed on Augmentin for discharged home, however, will place on Zosyn 4.5 g IV every 8 hours #Mild acute kidney injury- Creatinine 1.22, with base range 0.84-1.18 Status post 1 L normal saline bolus from the ED Temporarily hold valsartan Repeat laboratories in a.m. Diabetes mellitus- Temporarily hold semaglutide Place on Accu-Cheks with NovoLog SSI as noted Most recent A1c on 11/05 was 5.6 #Liver transplant recipient- Secondary to REBOLLAR September 2022 [facility] Liver enzymes normal Immunosuppressive medications: Cyclosporine Ongoing medical issues: Hypertension-continue amlodipine, hold losartan as noted Hyperlipidemia-Continue atorvastatin Hypothyroidism-continue levothyroxine GERD continue pantoprazole Mood-Continue sertraline PG Care Time/CCT Total # of Minutes Spent Total Time Spent with Patient: Total time spent is greater than 50% in coordination of care (as documented) at patient's floor/unit and/or counseling patient: Coding Level of Care Code 01285 INT INP/OBS CARE MIN Diagnoses Diverticulitis K57.92 LISA (acute kidney injury) N17.9
[2024-03-27] MEDS ORDERED: ACETAMINOPHEN 500 MG TAB PO PRN (23:29)
[2024-03-27] MEDS ORDERED: MoRPHine SULFATE 2 MG/ML CARP IV PRN (23:29)
[2024-03-28] MEDS ORDERED: DEXTROSE 50% 50 ML SYRINGE IV PRN (00:23)
[2024-03-28] MEDS ORDERED: GLUCOSE 40% GEL 15 GM TUBE PO PRN (00:23)
[2024-03-28] MEDS ORDERED: PHARMACY GLYCEMIC MGMT CONSULT PRN (00:23)
[2024-03-28] MEDS ORDERED: GLUCOSE 10 TAB/TUBE PO PRN (00:23)
[2024-03-28] MEDS ORDERED: bisacodyL 5 MG TABEC PO PRN (00:23)
[2024-03-28] MEDS ORDERED: GLUCAGON FOR INJ 1 MG VIAL SQ PRN (00:23)
[2024-03-28] MEDS ORDERED: CARBOHYDRATES FOR HYPOGLYCEMIA PO PRN (00:23)
[2024-03-28] MEDS ORDERED: MAGNESIUM HYDROXIDE SUSP 30 ML UDC PO PRN (00:23)
[2024-03-28] MEDS: PIPERACILLIN/TAZOBACTAM 4.5 GM/100 ML BAG IV ONE (01:33)
--- OUTSIDE RECORDS SUMMARY | 2024-03-28 02:11 | External Medical Summary | Continuity of Care Document ---
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) use of unspecified immunomodulators and immunosuppressants (Final) - Immunodeficiency, unspecified(Final) - Disorders of magnesium metabolism, unspecified(Final) - Discharge Disposition: Home or Self Care Attending Physician: MD Bailey Abhinav Referring Physician: MD aBiley Abhinav Allergies, Adverse Reactions, Alerts Substance Criticality Severity Reaction Reaction Severity Status tetracycline severe belly aches HARLEY Active colchicine anxiety, itchy Acti ve predniSONE anxiety, itchy Acti ve tetracyclines Unknown Active flu vaccines Active Bee [...] Daily, Disp# 90 tab, Refills: 3, Pharmacy: [facility]/pharmacy #[id number] Start Date: 10/28/23 Status: Ordered baclofen 10 mg oral tablet Start: 11/18/23 11:30:00 AM EDT, 1 tab, PO, tid, Disp# 21 tab, Pharmacy: [facility]/pharmacy #[id number] Start Date: 11/18/23 Stop Date: 11/25/23 Status: Ordered Basaglar Tempo Pen 100 units/mL [...] Daily, Disp# 30 tab, Refills: 5, [id number] Start Date: 06/04/23 Stop Date: 12/01/23 Status: Ordered hydroCHLOROthiazide 12.5 mg oral capsule Start: 12/03/23 10:17:00 AM EDT, 1 cap, PO, Daily, Disp# 30 cap, Refills: 3, PRN: leg swelling, Pharmacy: [facility]/pharmacy #[id number] Start Date: 12/03/23 Status: Ordered levothyroxine 125 mcg (0.125 mg) oral tablet TAKE 1 TABLET BY MOUTH EVERY DAY Start Date: 10/19/23 Status: Ordered Mounjaro 5 mg/0.5 mL subcutaneous solution INJECT 5 MG (0.5 ML) SUBCUTANEOUSLY WEEKLY Start Date: 03/10/23 Status: Ordered multivitamin Start: 07/02/23 3:06:00 PM EDT, 1 tab, PO, Daily Start Date: 07/02/23 Status: Ordered omeprazole 20 mg oral delayed release capsule Start: 02/14/24 1:16:00 PM EST, 1 cap, PO, bid, Disp# 60 cap, Refills: 5, Pharmacy: [id number] Start Date: 02/14/24 Status: Ordered pantoprazole 40 mg oral delayed release tablet TAKE 1 TABLET BY MOUTH EVERY DAY Start Date: 10/19/23 Status: Ordered sertraline 100 mg oral tablet Start: 02/07/24 8:07:00 AM EST, 1 tab, PO, qhs, Disp# 30 tab, Refills: 4, Pharmacy: [facility] [id number] Start Date: 02/07/24 Status: Ordered traMADol 50 mg oral tablet Start: 08/16/23 3:59:00 PM EDT, 1 tab, PO, q4h, Disp# 30 tab, Refills: 0, PRN: as needed for pain, Pharmacy: [facility]/pharmacy #[id number] Start Date: 08/16/23 Status: Ordered traZODone 50 mg oral tablet Start: 12/03/23 10:21:00 AM EDT, 1 tab, PO, qhs, Disp# 30 tab, Refills: 3, Pharmacy: [facility]/pharmacy #[id number] Start Date: 12/03/23 Status: Ordered valACYclovir 1 g oral tablet Start: 12/03/23 10:19:00 AM EDT, 1 tab, PO, q8h, Disp# 21 tab, Refills: 1, Pharmacy: [facility]/pharmacy #[id number] Start Date: 12/03/23 Stop Date: 12/17/23 Status: Ordered valsartan 80 mg oral tablet Start: 06/03/23 2:32:00 PM EDT, 30 each, 0 Refill(s), TAKE 1 TABLET BY MOUTH EVERY DAY Start Date: 06/03/23 Status: Ordered Problem List Condition Confirmation Course Effective Dates Status Health Status Informant Atypical chest pain Confirmed Active Barretts esophagus Confirmed Active Arthritis of both feet Confirmed Active Chronic diarrhea Confirmed Active Cirrhosis Confirmed Active Colonic polyp Confirmed Active Sinus congestion Confirmed Active Diabetes mellitus type 2 Confirmed Active Diverticulitis Confirmed Active Dermatitis Confirmed Active Eyelid eczema Confirmed Active Abnormal EKG Confirmed Active Episcleritis 1 Confirmed Active Family history of premature coronary heart disease Confirmed Active Pain in both feet Confirmed Active Liver transplanted Confirmed Active History of actinic keratoses Confirmed Active History of cholecystectomy Confirmed Active Hypercalcemia Confirmed Active Hypercholesterolemia Confirmed Active Hyperlipidemia Confirmed Active Hypertension Confirmed Active Hypokalemia Confirmed Active Hypomagnesemia Confirmed Active Hypothyroidism Confirmed Active Inflamed seborrheic keratosis Confirmed Active Wrist fracture, left Confirmed Active Iron deficiency anemia Confirmed Active IBS (irritable bowel syndrome) Confirmed Active REBOLLAR (nonalcoholic steatohepatitis) Confirmed Active Pericarditis Confirmed Active Falls frequently Confirmed Active Seborrheic [...] Normal examine duodenum 5) No specimens collected. 12MN admit for LLQ pain, diarrhea, melena. CT showed cirrhosis with portal HTN, diverticulosis, DC and sigmoid thickening. EGD showed grade 1 varcies and portal gastropathy. She was placed on IV abx Zosyn and sent home on augmentin for 10 day total therapy. Pt requesting [facility] eval for liver. 13US of abdomen complete [...] Complete Blood Count w Differential (CBC ,DIFFH) 02/14/24 Comprehensive Metabolic Panel (COMP META B PANEL) 02/14/24 Cyclosporine Level (CYCLOSPORINE) 4 Gamma Glutamyl Transferase (GGTP) 4 Magnesium Level (MAGNESIUM) 02/14/24 Phosphorus Level (PHOSPHORUS) 02/14/24 Prothrombin Time w/ INR (PROTIME WITH IN R) 02/14/24 Request to FAX Report (First Location) ( ACC NO TO BE FAXED) 02/14/24 Request to FAX Report (Second Location) (2ND FAX REQUEST) 02/14/24 Request to FAX Report (Third Location) ( 3RD FAX REQUEST) 02/14/24 Most recent to oldest [Reference Range]: 1 eGFR CKD-EPI [>60 mL/min/1.73 m2] 72 mL/ min/1.73 m2 1 (02/14/24 10:00 AM) Microcytes FEW *Unknown* (02/14/24 10:00 AM) Polychromasia INCREASED *Unknown* (02/14/24 10:00 AM) Platelet Morphology NORMAL *Unknown* (02/14/24 10:00 AM) Estimated CrCl 56.31 mL/min (02/14/24 10:42 AM) Phone No [phone] (02/14/24 10:00 AM) Faxed on: 02/16/24 09:22 (02/14/24 10:00 AM) Phone No ([phone] (02/14/24 10:00 AM) Faxed on (2): 02/16/24 09:22 (02/14/24 10:00 AM) Phone No ([phone] (02/14/24 10:00 AM) Faxed on (3): 02/16/24 09:22 (02/14/24 10:00 AM) MPV [9.0-12.2 fL] 8.7 fL *LOW* (02/14/24 10:00 AM) Immature Gran% 0.0 % (02/14/24 10:00 AM) Neut% 59.1 % (02/14/24 10:00 AM) Lymph% 26.4 % (02/14/24 10:00 AM) Ellis% 9.1 % (02/14/24 10:00 AM) Baso% 0.0 % (02/14/24 10:00 AM) Eos% 5.4 % (02/14/24 10:00 AM) Immat Gran, Abs [0.0-0.4 K/uL] 0.00 K/uL (02/14/24 10:00 AM) Neut, Abs [2.0-7.7 K/uL] 1.34 K/uL *LOW* (02/14/24 10:00 AM) Lymph, Abs [1.0-3.4 K/uL] 0.60 K/uL *LOW* (02/14/24 10:00 AM) Ellis, Abs [0-1.0 K/uL] 0.21 K/uL (02/14/24 10:00 AM) Baso, Abs [0-0.1 K/uL] 0.00 K/uL (02/14/24 10:00 AM) Eos, Abs [0-0.5 K/uL] 0.12 K/uL (02/14/24 10:00 AM) Type of Diff: MANUAL *Unknown* (02/14/24 10:00 AM) RDW [11.5-14.2 %] 18.2 % *HI* (02/14/24 10:00 AM) Anion Gap [5-14 mmol/L] 8 mmol/L (02/14/24 10:00 AM) Alb [3.5-5.0 g/dL] 3.8 g/dL (02/14/24 10:00 AM) Alk Phos [38-126 unit/L] 110 unit/L (02/14/24 10:00 AM) ALT [<35 unit/L] 23 unit/L (02/14/24 10:00 AM) AST [15-46 unit/L] 24 unit/L (02/14/24 10:00 AM) BUN [7-20 mg/dL] 8 mg/dL (02/14/24 10:00 AM) Ca [8.4-10.2 mg/dL] 9.7 mg/dL (02/14/24 10:00 AM) Cl- [96-107 mmol/L] 107 mmol/L (02/14/24 10:00 AM) HCO3 [22-30 mmol/L] 26 mmol/L (02/14/24 10:00 AM) Cret [0.60-1.00 mg/dL] 0.87 mg/dL (02/14/24 10:00 AM) Glu [74-106 mg/dL] 131 mg/dL *HI* (02/14/24 10:00 AM) GGT [3-40 unit/L] 36 unit/L (02/14/24 10:00 AM) Hct [35-44 %] 33.2 % *LOW* (02/14/24 10:00 AM) Hgb [11.7-15.0 g/dL] 11.1 g/dL *LOW* (02/14/24 10:00 AM) INR [0.9-1.1] 1.0 5 (02/14/24 10:00 AM) K [3.5-5.1 mmol/L] 3.1 mmol/L *LOW* (02/14/24 10:00 AM) MCH [28-33 pg] 29.1 pg (02/14/24 10:00 AM) MCHC [32-36 g/dL] 33.4 g/dL (02/14/24 10:00 AM) MCV [81-96 fL] 87.1 fL (02/14/24 10:00 AM) Mg [1.6-2.3 mg/dL] 1.6 mg/dL 6 (02/14/24 10:00 AM) Na [137-145 mmol/L] 141 mmol/L (02/14/24 10:00 AM) PO4 [2.5-4.5 mg/dL] 3.1 mg/dL 7 (02/14/24 10:00 AM) Plts [150-350 K/uL] 175 K/uL (02/14/24 10:00 AM) PT [12.0-14.2 seconds] 13.4 seconds (02/14/24 10:00 AM) RBC [3.90-5.00 M/uL] 3.81 M/uL *LOW* (02/14/24 10:00 AM) CyA 343 ng/mL 8 (02/14/24 10:00 AM) T Bili [0.2-1.3 mg/dL] 0.7 mg/dL (02/14/24 10:00 AM) Prot [6.3-8.2 g/dL] 6.3 g/dL (02/14/24 10:00 AM) WBC [4.0-10.4 K/uL] 2.27 K/uL *LOW* (02/14/24 10:00 AM) 1Result Comment: Testing Performed By: [facility], [address] [place] [address], [place] [address] 2Result Comment: Testing Performed By: Dept of Pathology [facility], [address] [place] [address], [place] [address] 3Result Comment: Testing Performed By: [facility], [address] [place] [address], [place] [address] 4Result Comment: Testing Performed By: Dept of Pathology [facility], [address] [place] [address], [place] [address] 5Result Comment: Suggested therapeutic range for low-intensity Coumadin therapy for venous thromboembolism is INR 2.0-3.0 (ex: atrial fibrillation, history of TIA/stroke). For high risk patients, the suggested therapeutic range is INR 2.5-3.5 (ex: mechanical prosthetic valves). Testing Performed By: [facility], [address] [facility], [place] [address] 6Result Comment: Testing Performed By: [facility], [address] [facility], [place] [address] 7Result Comment: Testing Performed By: [facility], [address] [place] [address], [place] [address] 8Result Comment: No guideline supported therapeutic range exists [...] ng/mL Testing was performed by Immunoassay (Patrick Hardboard Coating Machine Operator). Social History Social History Type Response Tobacco Former smoker, Start ed age 14 Years. Stopped age 38 Years. 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
--- OUTSIDE RECORDS SUMMARY | 2024-03-28 02:11 | External Medical Summary | Continuity of Care Document ---
Author Name Unknown Organization [facility] [address] Address [address] [place], [place] [id number] Care Team Providers Care Roller Maker Name Role Phone BartEleazarjennifer Denise Primary Care Physician [phone] [id number] Date(s): 02/28/24 - 02/28/24 [facility] [address] [facility] 1 [place], [place] [phone] Encounter Diagnosis Liver transplant status(Final) - custodial (current) use of unspecified immunomodulators and immunosuppressants [...] Daily, Disp# 90 tab, Refills: 3, Pharmacy: [facility]/pharmacy #[id number] Start Date: 10/28/23 Status: Ordered baclofen 10 mg oral tablet Start: 11/18/23 11:30:00 AM EDT, 1 tab, PO, tid, Disp# 21 tab, Pharmacy: [facility]/pharm[facility] #[id number] Start Date: 11/18/23 Stop Date: 11/25/23 [...] Daily, Disp# 30 tab, Refills: 5, [id number] Start Date: 06/04/23 Stop Date: 12/01/23 Status: Ordered hydroCHLOROthiazide 12.5 mg oral capsule Start: 12/03/23 10:17:00 AM EDT, 1 cap, PO, Daily, Disp# 30 cap, Refills: 3, PRN: leg swelling, Pharmacy: [facility]/pharmacy #[id number] Start Date: 12/03/23 Status: Ordered levothyroxine [...] bid, Disp# 60 cap, Refills: 5, Pharmacy: [facility] [id number] Start Date: 02/14/24 Status: Ordered pantoprazole 40 mg oral delayed release tablet TAKE 1 TABLET BY MOUTH EVERY DAY Start Date: 10/19/23 Status: Ordered sertraline 100 mg oral tablet Start: 02/07/24 8:07:00 AM EST, 1 tab, PO, qhs, Disp# 30 tab, Refills: 4, Pharmacy: [facility] [id number] Start Date: 02/07/24 Status: Ordered traMADol 50 mg oral tablet Start: 08/16/23 3:59:00 PM EDT, 1 tab, PO, q4h, Disp# 30 tab, Refills: 0, PRN: as needed for pain, Pharmacy: [facility] #[id number] Start Date: 08/16/23 Status: Ordered traZODone 50 mg oral tablet Start: 12/03/23 10:21:00 AM EDT, 1 tab, PO, qhs, Disp# 30 tab, Refills: 3, Pharmacy: [facility]/pharmacy #[id number] Start Date: 12/03/23 Status: Ordered valACYclovir 1 g oral tablet Start: 12/03/23 10:19:00 AM EDT, 1 tab, PO, q8h, Disp# 21 tab, Refills: 1, Pharmacy: [facility]/pharmacy #[id number] Start Date: 12/03/23 Stop Date: 12/17/23 [...] for 10 day total therapy. Pt requesting [facility] [place] liver. 13US of abdomen complete [...] Complete Blood Count w Differential (CBC ,DIFFH) 02/28/24 Comprehensive Metabolic Panel (COMP META B PANEL) 02/28/24 Cyclosporine Level (CYCLOSPORINE) Gamma Glutamyl Transferase (GGTP) Magnesium Level (MAGNESIUM) 02/28/24 Phosphorus Level (PHOSPHORUS) 02/28/24 Prothrombin Time w/ INR (PROTIME WITH IN R) 02/28/24 Request to FAX Report (First Location) ( ACC NO TO BE FAXED) 02/28/24 Request to FAX Report (Second Location) (2ND FAX REQUEST) 02/28/24 Most recent to oldest [Reference Range]: 1 eGFR CKD-EPI [>60 mL/min/1.73 m2] 82 mL/ min/1.73 m2 1 (02/28/24 9:45 AM) Estimated CrCl 62.81 mL/min (02/28/24 10:24 AM) Phone No [phone] (02/28/24 9:45 AM) Faxed on: 02/29/24 14:13 (02/28/24 9:45 AM) Phone No [phone] (02/28/24 9:45 AM) Faxed on (2): 02/29/24 14:13 (02/28/24 9:45 AM) MPV [9.0-12.2 fL] 8.9 fL *LOW* (02/28/24 9:45 AM) Immature Gran% 1.0 % (02/28/24 9:45 AM) Neut% 70.8 % (02/28/24 9:45 AM) Lymph% 8.4 % (02/28/24 9:45 AM) Luce% 12.9 % (02/28/24 9:45 AM) Baso% 0.3 % (02/28/24 9:45 AM) Eos% 6.6 % (02/28/24 9:45 AM) Immat Gran, Abs [0-0.4 K/uL] 0.04 K/uL (02/28/24 9:45 AM) Neut, Abs [2.0-7.7 K/uL] 2.79 K/uL (02/28/24 9:45 AM) Lymph, Abs [1.0-3.4 K/uL] 0.33 K/uL *LOW* (02/28/24 9:45 AM) Luce, Abs [0-1.0 K/uL] 0.51 K/uL (02/28/24 9:45 AM) Baso, Abs [0-0.1 K/uL] 0.01 K/uL (02/28/24 9:45 AM) Eos, Abs [0-0.5 K/uL] 0.26 K/uL (02/28/24 9:45 AM) Type of Diff: AUTO *Unknown* (02/28/24 9:45 AM) RDW [11.5-14.2 %] 18.1 % *HI* (02/28/24 9:45 AM) Anion Gap [5-14 mmol/L] 8 mmol/L (02/28/24 9:45 AM) Alb [3.5-5.0 g/dL] 4.3 g/dL (02/28/24 9:45 AM) Alk Phos [38-126 unit/L] 124 unit/L (02/28/24 9:45 AM) ALT [<35 unit/L] 48 unit/L *HI* (02/28/24 9:45 AM) AST [15-46 unit/L] 51 unit/L *HI* (02/28/24 9:45 AM) BUN [7-20 mg/dL] 12 mg/dL (02/28/24 9:45 AM) Ca [8.4-10.2 mg/dL] 8.3 mg/dL *LOW* (02/28/24 9:45 AM) Cl- [96-107 mmol/L] 106 mmol/L (02/28/24 9:45 AM) HCO3 [22-30 mmol/L] 26 mmol/L (02/28/24 9:45 AM) Cret [0.60-1.00 mg/dL] 0.78 mg/dL (02/28/24 9:45 AM) Glu [74-106 mg/dL] 114 mg/dL *HI* (02/28/24 9:45 AM) GGT [3-40 unit/L] 51 unit/L *HI* (02/28/24 9:45 AM) Hct [35-44 %] 33.8 % *LOW* (02/28/24 9:45 AM) Hgb [11.7-15.0 g/dL] 11.5 g/dL *LOW* (02/28/24 9:45 AM) INR [0.9-1.1] 1.0 4 (02/28/24 9:45 AM) K [3.5-5.1 mmol/L] 5.3 mmol/L *HI* (02/28/24 9:45 AM) MCH [28-33 pg] 30.3 pg (02/28/24 9:45 AM) MCHC [32-36 g/dL] 34.0 g/dL (02/28/24 9:45 AM) MCV [81-96 fL] 89.2 fL (02/28/24 9:45 AM) Mg [1.6-2.3 mg/dL] 2.0 mg/dL 5 (02/28/24 9:45 AM) Na [137-145 mmol/L] 140 mmol/L (02/28/24 9:45 AM) PO4 [2.5-4.5 mg/dL] 4.1 mg/dL 6 (02/28/24 9:45 AM) Plts [150-350 K/uL] 185 K/uL (02/28/24 9:45 AM) PT [12.0-14.2 seconds] 12.9 seconds (02/28/24 9:45 AM) RBC [3.90-5.00 M/uL] 3.79 M/uL *LOW* (02/28/24 9:45 AM) CyA 60 ng/mL 7 (02/28/24 9:45 AM) T Bili [0.2-1.3 mg/dL] 1.1 mg/dL (02/28/24 9:45 AM) Prot [6.3-8.2 g/dL] 6.9 g/dL (02/28/24 9:45 AM) WBC [4.0-10.4 K/uL] 3.94 K/uL *LOW* (02/28/24 9:45 AM) 1Result Comment: Testing Performed By: Dept of Pathology [facility], [address] [place] [address], [place], [place] [address] 2Result Comment: Testing Performed By: Dept of Pathology [facility], [address] [facility], [place], [place] [address] 3Result Comment: Testing Performed By: Dept of Pathology [facility], [address] [place] [address], [place], [place] [address] 4Result Comment: Suggested therapeutic range for low-intensity Coumadin therapy for venous thromboembolism is INR 2.0-3.0 (ex: atrial fibrillation, history of TIA/stroke). For high risk patients, the suggested therapeutic range is INR 2.5-3.5 (ex: mechanical prosthetic valves). Testing Performed By: Dept of Pathology [facility], [address] [place] [address], [place], [place] [address] 5Result Comment: Testing Performed By: Dept of Pathology [facility], [address] [facility], [place], [place] [address] 6Result Comment: Testing Performed By: Dept of Pathology [facility], [address] [place] [address], [place], [place] [address] 7Result Comment: No guideline supported therapeutic range [...] 200-300 ng/mL Testing was performed by Immunoassay (Zymergen Quencher Operator). Social History Social History Type Response Tobacco Former smoker, Start ed age 14 Years. Stopped age 38 Years. 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
--- OUTSIDE RECORDS SUMMARY | 2024-03-28 02:11 | External Medical Summary | Continuity of Care Document ---
Author Name Unknown Organization [facility] [address] Address [address] [place], [place] [id number] Care Team Providers Care Wet Mixer Name Role Phone BartEleazarjennifer Denise Primary Care Physician [phone] [facility]counter [facility] [id number] Date(s): 03/16/24 - 03/16/24 [facility] [address] [facility] [address] [facility], [facility] 1 [place], [place] [phone] Encounter Diagnosis Liver transplant status(Final) - snf (current) use of unspecified immunomodulators and immunosuppressants [...] Daily, Disp# 90 tab, Refills: 3, Pharmacy: [facility]/pharmacy #[id number] Start Date: 10/28/23 Status: Ordered baclofen 10 mg oral tablet Start: 11/18/23 11:30:00 AM EDT, 1 tab, PO, tid, Disp# 21 tab, Pharmacy: [facility]/pharmacy #[id number] Start Date: 11/18/23 Stop Date: [...] Daily, Disp# 30 tab, Refills: 5, [id number] Start Date: 06/04/23 Stop Date: 12/01/23 Status: Ordered hydroCHLOROthiazide 12.5 mg oral capsule Start: 12/03/23 10:17:00 AM EDT, 1 cap, PO, Daily, Disp# 30 cap, Refills: 3, PRN: leg swelling, Pharmacy: [facility]/pharmacy #[id number] Start Date: 12/03/23 Status: Ordered [...] bid, Disp# 60 cap, Refills: 5, Pharmacy: for; to (do) [id number] Start Date: 02/14/24 Status: Ordered pantoprazole 40 mg oral delayed release tablet TAKE 1 TABLET BY MOUTH EVERY DAY Start Date: 10/19/23 Status: Ordered sertraline 100 mg oral tablet Start: 02/07/24 8:07:00 AM EST, 1 tab, PO, qhs, Disp# 30 tab, Refills: 4, Pharmacy: for; to (do) [id number] Start Date: 02/07/24 Status: Ordered traMADol 50 mg oral tablet Start: 08/16/23 3:59:00 PM EDT, 1 tab, PO, q4h, Disp# 30 tab, Refills: 0, PRN: as needed for pain, Pharmacy: [facility]/pharmacy #[id number] Start Date: 08/16/23 Status: Ordered traZODone 50 mg oral tablet Start: 03/14/24 10:32:00 AM EST, 1 tab, PO, qhs, Disp# 30 tab, Refills: 3, Pharmacy: [facility]/pharmacy #[id number] Start Date: 03/14/24 Status: Ordered valACYclovir 1 g oral tablet Start: 12/03/23 10:19:00 AM EDT, 1 tab, PO, q8h, Disp# 21 tab, Refills: 1, Pharmacy: [facility]/pharmacy #[id number] Start Date: 12/03/23 Stop Date: [...] for 10 day total therapy. Pt requesting [facility] eval for liver. 13US of abdomen complete [...] Complete Blood Count w Differential (CBC ,DIFFH) 03/16/24 Comprehensive Metabolic Panel (COMP META B PANEL) 03/16/24 Cyclosporine Level (CYCLOSPORINE) 03/16/24 Gamma Glutamyl Transferase (GGTP) 03/16/24 Magnesium Level (MAGNESIUM) 03/16/24 Phosphorus Level (PHOSPHORUS) 03/16/24 Prothrombin Time w/ INR (PROTIME WITH IN R) 03/16/24 Most recent to oldest [Reference Range]: 1 eGFR CKD-EPI [>60 mL/min/1.73 m2] 59 mL/ min/1.73 m2 *LOW* (03/16/24 10:59 AM) Estimated CrCl 48.03 mL/min (03/16/24 9:02 PM) MPV [9.0-12.2 fL] 8.8 fL *LOW* (03/16/24 10:59 AM) Immature Gran% 1.0 % (03/16/24 10:59 AM) Neut% 74.8 % (03/16/24 10:59 AM) Lymph% 6.8 % (03/16/24 10:59 AM) [place]% 14.0 % (03/16/24 10:59 AM) Baso% 1.0 % (03/16/24 10:59 AM) Eos% 2.4 % (03/16/24 10:59 AM) Immat Gran, Abs [0-0.4 K/uL] 0.03 K/uL (03/16/24 10:59 AM) Neut, Abs [2.0-7.7 K/uL] 2.18 K/uL (03/16/24 10:59 AM) Lymph, Abs [1.0-3.4 K/uL] 0.20 K/uL *LOW* (03/16/24 10:59 AM) [place], Abs [0-1.0 K/uL] 0.41 K/uL (03/16/24 10:59 AM) Baso, Abs [0-0.1 K/uL] 0.03 K/uL (03/16/24 10:59 AM) Eos, Abs [0-0.5 K/uL] 0.07 K/uL (03/16/24 10:59 AM) Type of Diff: AUTO *Unknown* (03/16/24 10:59 AM) RDW [11.5-14.2 %] 17.5 % *HI* (03/16/24 10:59 AM) Anion Gap [5-14 mmol/L] 13 mmol/L (03/16/24 10:59 AM) Alb [3.5-5.2 g/dL] 4.2 g/dL (03/16/24 10:59 AM) Alk Phos [35-115 unit/L] 182 unit/L 1 *HI* (03/16/24 10:59 AM) ALT [0-33 unit/L] 48 unit/L *HI* (03/16/24 10:59 AM) AST [0-32 unit/L] 44 unit/L *HI* (03/16/24 10:59 AM) BUN [6-23 mg/dL] 12 mg/dL (03/16/24 10:59 AM) Ca [8.4-10.2 mg/dL] 10.3 mg/dL *HI* (03/16/24 10:59 AM) Cl- [98-107 mmol/L] 106 mmol/L (03/16/24 10:59 AM) HCO3 [22-29 mmol/L] 24 mmol/L (03/16/24 10:59 AM) Cret [0.60-1.00 mg/dL] 1.02 mg/dL *HI* (03/16/24 10:59 AM) Glu [74-109 mg/dL] 104 mg/dL 2 (03/16/24 10:59 AM) GGT [3-40 unit/L] 41 unit/L *HI* (03/16/24 10:59 AM) Hct [35-44 %] 35.8 % (03/16/24 10:59 AM) Hgb [11.7-15.0 g/dL] 11.7 g/dL (03/16/24 10:59 AM) INR [0.9-1.1] 1.0 3 (03/16/24 10:59 AM) K [3.5-5.1 mmol/L] 4.3 mmol/L (03/16/24 10:59 AM) MCH [28-33 pg] 30.6 pg (03/16/24 10:59 AM) MCHC [32-36 g/dL] 32.7 g/dL (03/16/24 10:59 AM) MCV [81-96 fL] 93.7 fL (03/16/24 10:59 AM) Mg [1.6-2.6 mg/dL] 1.7 mg/dL (03/16/24 10:59 AM) Na [136-145 mmol/L] 143 mmol/L (03/16/24 10:59 AM) PO4 [2.5-4.5 mg/dL] 3.9 mg/dL (03/16/24 10:59 AM) Plts [150-350 K/uL] 196 K/uL (03/16/24 10:59 AM) PT [12.0-14.2 seconds] 13.2 seconds (03/16/24 10:59 AM) RBC [3.90-5.00 M/uL] 3.82 M/uL *LOW* (03/16/24 10:59 AM) CyA 78 ng/mL 4 (03/16/24 10:59 AM) T Bili [0.0-1.2 mg/dL] 0.9 mg/dL (03/16/24 10:59 AM) Prot [6.4-8.3 g/dL] 6.5 g/dL (03/16/24 10:59 AM) WBC [4.0-10.4 K/uL] 2.92 K/uL *LOW* (03/16/24 10:59 AM) 1Result Comment: Low levels of ALKP may indicate a deficiency in zinc, magnesium, or malnutritionbutcan also be an indicator of a rare genetic disease hypophosphatasia (HPP). 2Result Comment: ADA recommendation for FASTING Serum/Plasma Glucose: Normal: 70-100 mg/dL Prediabetes: 100-125 mg/dL Diabetes: 126 mg/dL or higher 3Result Comment: Suggested therapeutic range for low-intensity Coumadin therapy for venous thromboembolism is INR 2.0-3.0 (ex: atrial fibrillation, history of TIA/stroke). For high risk patients, the suggested therapeutic range is INR 2.5-3.5 (ex: mechanical prosthetic valves). Testing Performed By: Dept of Pathology [facility] [address], [address], [place] [address] 4Result Comment: No guideline supported therapeutic range exists [...] 200-300 ng/mL Testing was performed by Immunoassay ([employer]). Social History Social History Type Response Tobacco Former smoker, Start ed age 14 Years. Stopped age 38 Years. 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
--- OUTSIDE RECORDS SUMMARY | 2024-03-28 02:11 | External Medical Summary | Continuity of Care Document ---
Author Name Unknown Organization [facility] [id number] Address [address] [place] [id number] Care Team Providers Care Institute Director Name Role Phone Keturah Arriaga Primary Care Physician [phone] [id number] Date(s): 01/20/24 - 01/20/24 [facility] [address] [facility] [address] [facility] [address] [place] [address] Encounter Diagnosis Arthritis of both feet(Discharge Diagnosis) - 01/20/24 Pain in both feet(Discharge Diagnosis) - 01/20/24 Bilateral swelling of feet(Discharge Diagnosis) - 01/20/24 Discharge Disposition: Home or Self Care Attending Physician: THIEN Brown Christina L Referring Physician: MD Arriaga Ravishankar E Allergies, Adverse Reactions, Alerts Substance Criticality Severity Reaction Reaction Severity Status tetracycline severe belly aches HARLEY Active colchicine anxiety, itchy Acti ve predniSONE anxiety, itchy Acti ve tetracyclines Unknown Active flu vaccines Active Bee stings Unable to assess criticality Severe Anaphylaxis anaphylaxis Active Influenza Virus Vaccine Unable to assess criticality Severe Angioedema Active Assessment and Plan Extracted from: Title:Follow Up Visit Author:THIEN Brown, Alannah Barton Date:01/20/24 1.Arthritis of both feet Bilateral fourth tarsometatarsal jointinjection. PROCEDURE: area was cleaned with Hibiclens, allergies reviewed and patient had none applicable to the injection, .5mL of lidocaine 1% plain was given with .5mL of depomedrol 40%, for a total of a 1 mL injection given without complications, anesthesia was used for injection consisting of ethyl chloride spray, area was then clean with alcohol and band-aid applied. Patient instructed to keep band-aid in place for 24 hours and keep clean and dry and perform limited activities. Time out taken per [facility] Protocol, risks discussed including infection, pain at injection site, bleeding, numbness, swelling, incomplete relief of symptoms. Benefits discussed including improvement of pain, site marked and nurse present for entire duration of procedure. Patient tolerated the procedure well. Patient encouraged to continue supportive shoe gearto continue her exercises for compression therapy she was taught from PTshe should continue her compression hose as well recommend follow-up in 4 months I, Asha Brown DPM, spent a total of 19 minutes on this encounter providing the following [id number]-face and [id number]-[id number] activities. Activities Include: _2_ preparing to see the patient (for example, review of tests) _3_ obtaining and/or reviewing separately obtained history _5_ physical exam/evaluation _5_ counseling/educating patient/family/caregiver __ discussion/referral to other healthcare professional _4_ documenting care in the medical record __ independent interpretation of results __ communication of results to patient/family/caregiver __ coordination of care __ ordering medications and tests Excludes __4 min_ time for procedure ___bilateral foot injections performed 2.Pain in both feet 3.Bilateral swelling of feet Immunizations Given and Recorded Vaccine Date Status [...] Daily, Disp# 90 tab, Refills: 3, Pharmacy: [facility]/pharmacy #[id number] Start Date: 10/28/23 Status: Ordered baclofen 10 mg oral tablet Start: 11/18/23 11:30:00 AM EDT, 1 tab, PO, tid, Disp# 21 tab, Pharmacy: [facility]/pharmacy #[id number] Start Date: 11/18/23 Stop Date: 11/25/23 [...] Daily, Disp# 30 tab, Refills: 5, Pharmacy: [facility]/pharmacy #[id number] Start Date: 06/04/23 Stop Date: 12/01/23 Status: Ordered hydroCHLOROthiazide 12.5 mg oral capsule Start: 12/03/23 10:17:00 AM EDT, 1 cap, PO, Daily, Disp# 30 cap, Refills: 3, PRN: leg swelling, Pharmacy: [facility]/pharmacy #[id number] Start Date: 12/03/23 Status: Ordered levothyroxine [...] bid, Disp# 60 cap, Refills: 5, Pharmacy: [facility]/pharmacy #[id number] Start Date: 09/03/23 Stop Date: 03/01/24 Status: Ordered pantoprazole 40 mg oral delayed release tablet TAKE 1 TABLET BY MOUTH EVERY DAY Start Date: 10/19/23 Status: Ordered sertraline 100 mg oral tablet Start: 09/02/23 1:33:00 PM EDT, 1 tab, PO, qhs, Disp# 30 tab, Refills: 4, Pharmacy: [facility]/pharmacy #[id number] Start Date: 09/02/23 Stop Date: 01/30/24 Status: Ordered traMADol 50 mg oral tablet Start: 08/16/23 3:59:00 PM EDT, 1 tab, PO, q4h, Disp# 30 tab, Refills: 0, PRN: as needed for pain, Pharmacy: [facility]/pharmacy #[id number] Start Date: 08/16/23 Status: Ordered traZODone 50 mg oral tablet Start: 12/03/23 10:21:00 AM EDT, 1 tab, PO, qhs, Disp# 30 tab, Refills: 3, Pharmacy: [facility]/pharmacy #[id number] Start Date: 12/03/23 Status: Ordered valACYclovir 1 g oral tablet Start: 12/03/23 10:19:00 AM EDT, 1 tab, PO, q8h, Disp# 21 tab, Refills: 1, Pharmacy: [facility]/pharmacy #[id number] Start Date: 12/03/23 Stop Date: 12/17/23 Status: Ordered valsartan 80 mg oral tablet Start: 06/03/23 2:32:00 PM EDT, 30 each, 0 Refill(s), TAKE 1 TABLET BY MOUTH EVERY DAY Start Date: 06/03/23 Status: Ordered Mental Status 01/20/24 Barriers to Learning one year None evide nt Mandatory Health Literacy Documentation Yes Health Literacy Communication Barriers N ever Primary Language Chadian Problem List Condition Confirmation Course Effective Dates [...] Confirmed Active Weight disorder Confirmed Active , 2005 Diagnosis Diagnosis Type Effective Dates Health Status Cl inical Service Informant Arthritis of both feet Discharge Diagnosis 01/20/24 Non-Specified Pain in both feet Discharge Diagnosis 01/20/24 Non-Specified Bilateral swelling of feet Discharge Diagnosis 01/20/24 Non-Specified Procedures Procedure Date Related Diagnosis Body [...] for 10 day total therapy. Pt requesting [facility] eval for liver. 13US of abdomen complete [...] left renal stone. 39left thumb joint repair Social History Social History Type Response Tobacco Former smoker, Start ed age 14 Years. Stopped age 38 Years. Smoking Status Never smoked cigaret star Sex Female Sex Representation Female (finding) Ortho Outpt Note * THIEN Brown, Asha Barton: PERFORM Event Display: Ortho Outpt Note Authored Date: [id number] Chief Complaint b/l foot follow-up, pt notes the left foot is hydrogen cell tender but the injections helped a lot Primary Care Provider MD Bart, Keturah Walker Subjective Patient is a very pleasant 68-year-old female presenting todayfor follow-up evaluation last seen in October of this year. -I recommended for patient to see energy physical therapyfor compression therapy of her legs I encouraged her to use compression hose to reduce her swellingand to follow-up with her die maintenance technician PCP and transplant teamwith regards to her dosing of hydrochlorothiazide and I did not comment f deanna on that at that visit. I felt that patient's pain was secondary to arthritisI provided a bilateral fourth tarsometatarsal joint injectionshe follows up today. Patient notes that the injection was extremely beneficialshe was able todiscontinue taking her Lyrica which has been great cannot take another pillshe notes that her swelling has significantly improvedshe was seeing energy PT for compression therapyshe did this for duration of timesignif icant improvement noted was able to continue her othercompression exercises at home. Review of Systems Kidney stones anxiety joint swelling arthritis fractures loss of hearing sinus problemsthyroid problems diabetes history of her previous blood transfusion Objective Physical Exam Problem focused bilateral feet: Patient notably had x-rays taken on August 22 which show pretty significantosteopenia/osteoporosis of the bonemild arthritis incidental finding of accessory bone at the navicular. Dorsalis pedis pulse palpable 2 out of 4, posterior tibial pulse palpable 2 out of 4,capillary refill time less than 3 seconds, skin turgor is good to all digits of both feetpedal hair is absent. The +1 pitting edema seen previously has significantly improved Gross sensation intact all digits of both feet. Arthritic pain is present along the fourth tarsometatarsal joint bilateral feetsecondary to arthritis present on x-ray. Recommend anti-inflammatory injection. X-ray dictation 3 views right foot:Taken at October 19, 2023 visit Assessment/Plan 1.Arthritis of both feet Bilateral fourth tarsometatarsal jointinjection. PROCEDURE: area was cleaned with Hibiclens, allergies reviewed and patient had none applicable to the injection, .5mL of lidocaine 1% plain was given with .5mL of depomedrol 40%, for a total of a 1 mL injection given without complications, anesthesia was used for injection consisting of ethyl chloride spray, area was then clean with alcohol and band-aid applied. Patient instructed to keep band-aid in place for 24 hours and keep clean and dry and perform limited activities. Time out taken per [facility] Protocol, risks discussed including infection, pain at injection site, bleeding, numbness, swelling, incomplete relief of symptoms. Benefits discussed including improvement of pain, site marked and nurse present for entire duration of procedure. Patient tolerated the procedure well. Patient encouraged to continue supportive shoe gearto continue her exercises for compression therapy she was taught from PTshe should continue her compression hose as well recommend follow-up in 4 months I, Asha Brown DPM, spent a total of 19 minutes on this encounter providing the following [id number]-face and [id number]-[id number]-cuct activities. Activities Include: _2_ preparing to see the patient (for example, review of tests) _3_ obtaining and/or reviewing separately obtained history _5_ physical exam/evaluation _5_ counseling/educating patient/family/caregiver __ discussion/referral to other healthcare professional _4_ documenting care in the medical record __ independent interpretation of results __ communication of results to patient/family/caregiver __ coordination of care __ ordering medications and tests Excludes __4 min_ time for procedure ___bilateral foot injections performed 2.Pain in both feet 3.Bilateral swelling of feet Electronic Signature on File Electronically Reviewed/Signed by: Asha Brown DPM Author Signature Dt/Tm:01/20/2024 11:05 AM Division of Sports Medicine CLR Patient Care team information Care Team Personnel Name: MD Bart, Keturah Walker Position: Physician Member Role: Primary Care Provider Address: [address] [place] [address] Care Team Related Persons Name: VITOR REED Name: KUSHAL WYNN
--- OUTSIDE RECORDS SUMMARY | 2024-03-28 02:11 | External Medical Summary | Continuity of Care Document ---
Author Name Unknown Organization [facility] [address] Address [address] [place], [place] [id number] Care Team Providers Care Dye Range Operator Cloth Name Role Phone BartEleazarjennifer Denise Primary Care Physician [phone] Encounter [facility] [id number] Date(s): 01/03/24 - 01/03/24 [facility] [address] [facility] [address] [facility] 1 [place], [place] [phone] Encounter Diagnosis Liver transplant status(Final) - USP (current) use of unspecified immunomodulators and immunosuppressants [...] Daily, Disp# 90 tab, Refills: 3, Pharmacy: [facility]/pharmacy #[id number] Start Date: 10/28/23 Status: Ordered baclofen 10 mg oral tablet Start: 11/18/23 11:30:00 AM EDT, 1 tab, PO, tid, Disp# 21 tab, Pharmacy: [facility]/pharmacy #[id number] Start Date: 11/18/23 Stop Date: [...] Daily, Disp# 30 tab, Refills: 5, [id number] Start Date: 06/04/23 Stop Date: 12/01/23 Status: Ordered hydroCHLOROthiazide 12.5 mg oral capsule Start: 12/03/23 10:17:00 AM EDT, 1 cap, PO, Daily, Disp# 30 cap, Refills: 3, PRN: leg swelling, Pharmacy: [facility]/pharmacy #[id number] Start Date: 12/03/23 Status: Ordered [...] bid, Disp# 60 cap, Refills: 5, Pharmacy: [facility]/pharmacy #[id number] Start Date: 09/03/23 Stop Date: 03/01/24 Status: Ordered pantoprazole 40 mg oral delayed release tablet TAKE 1 TABLET BY MOUTH EVERY DAY Start Date: 10/19/23 Status: Ordered pregabalin 150 mg oral capsule Start: 11/18/23 11:59:00 AM EDT, 1 cap, PO, Daily, Disp# 10 cap, Refills: 0, Pharmacy: [facility]/pharmacy #[id number] Start Date: 11/18/23 Stop Date: 11/28/23 Status: Ordered sertraline 100 mg oral tablet Start: 09/02/23 1:33:00 PM EDT, 1 tab, PO, qhs, Disp# 30 tab, Refills: 4, [id number] Start Date: 09/02/23 Stop Date: 01/30/24 Status: Ordered traMADol 50 mg oral tablet Start: 08/16/23 3:59:00 PM EDT, 1 tab, PO, q4h, Disp# 30 tab, Refills: 0, PRN: as needed for pain, [id number] Start Date: 08/16/23 Status: Ordered traZODone 50 mg oral tablet Start: 12/03/23 10:21:00 AM EDT, 1 tab, PO, qhs, Disp# 30 tab, Refills: 3, Pharmacy: [facility]/pharmacy #[id number] Start Date: 12/03/23 Status: Ordered valACYclovir 1 g oral tablet Start: 12/03/23 10:19:00 AM EDT, 1 tab, PO, q8h, Disp# 21 tab, Refills: 1, [id number] Start Date: 12/03/23 Stop Date: 12/17/23 [...] Normal examine duodenum 5) No specimens collected. 12[facility] admit for LLQ pain, diarrhea, melena. CT showed cirrhosis with portal HTN, diverticulosis, DC and sigmoid thickening. EGD showed grade 1 varcies and portal gastropathy. She was placed on IV abx Zosyn and sent home on augmentin for 10 day total therapy. Pt requesting [facility] eval for liver. [...] Complete Blood Count w Differential (CBC ,DIFFH) 01/03/24 Comprehensive Metabolic Panel (COMP META B PANEL) 01/03/24 Cyclosporine Level (CYCLOSPORINE) Gamma Glutamyl Transferase (GGTP) Magnesium Level (MAGNESIUM) 01/03/24 Phosphorus Level (PHOSPHORUS) 01/03/24 Prothrombin Time w/ INR (PROTIME WITH IN R) 01/03/24 Request to FAX Report (First Location) ( ACC NO TO BE FAXED) 01/03/24 Request to FAX Report (Second Location) (2ND FAX REQUEST) 01/03/24 Request to FAX Report (Third Location) ( 3RD FAX REQUEST) 01/03/24 Most recent to oldest [Reference Range]: 1 eGFR CKD-EPI [>60 mL/min/1.73 m2] 61 mL/ min/1.73 m2 1 (01/03/24 2:27 PM) Estimated CrCl 49.49 mL/min (01/03/24 2:57 PM) Phone No [phone] (01/03/24 2:27 PM) Faxed on: 01/04/24 08:48 (01/03/24 2:27 PM) Phone No (2) [phone] (01/03/24 2:27 PM) Faxed on (2): 01/04/24 08:48 (01/03/24 2:27 PM) Phone No (3) [phone] (01/03/24 2:27 PM) Faxed on (3): 01/04/24 08:48 (01/03/24 2:27 PM) MPV [9.0-12.2 fL] 9.0 fL (01/03/24 2: PM) Immature Gran% 0.9 % (01/03/24 2:27 PM) Neut% 62.0 % (01/03/24 2:27 PM) Lymph% 23.1 % (01/03/24 2: PM) Clinton% 9.8 % (01/03/24 2: PM) Baso% 0.9 % (01/03/24 2: PM) Eos% 3.3 % (01/03/24 2: PM) Immat Gran, Abs [0-0.4 K/uL] 0.04 K/uL (01/03/24: PM) Neut, Abs [2.0-7.7 K/uL] 2.79 K/uL (01/03/24: PM) Lymph, Abs [1.0-3.4 K/uL] 1.04 K/uL (01/03/24 2:27 PM) Clinton, Abs [0-1.0 K/uL] 0.44 K/uL (01/03/24 2:27 PM) Baso, Abs [0-0.1 K/uL] 0.04 K/uL (01/03/24:27 PM) Eos, Abs [0-0.5 K/uL] 0.15 K/uL (01/03/24 2: PM) Type of Diff: AUTO *Unknown* (01/03/24: PM) RDW [11.5-14.2 %] 16.4 % *HI* (01/03/24: PM) Anion Gap [5-14 mmol/L] 8 mmol/L (01/03/24: PM) Alb [3.5-5.0 g/dL] 4.1 g/dL (01/03/24: PM) Alk Phos [38-126 unit/L] 99 unit/L (01/03/24: PM) ALT [<35 unit/L] 41 unit/L *HI* (01/03/24: PM) AST [15-46 unit/L] 34 unit/L (01/03/24 PM) BUN [7-20 mg/dL] 14 mg/dL (01/03/24 PM) Ca [8.4-10.2 mg/dL] 10.2 mg/dL (01/03/24 PM) Cl- [96-107 mmol/L] 107 mmol/L (01/03/24 PM) HCO3 [22-30 mmol/L] 25 mmol/L (01/03/24 PM) Cret [0.60-1.00 mg/dL] 0.99 mg/dL (01/03/24 PM) Glu [74-106 mg/dL] 102 mg/dL (01/03/24 PM) GGT [3-40 unit/L] 28 unit/L (01/03/24 PM) Hct [35-44 %] 38.0 % (01/03/24 PM) Hgb [11.7-15.0 g/dL] 12.7 g/dL (01/03/24 PM) INR [0.9-1.1] 1.0 5 (01/03/24 PM) K [3.5-5.1 mmol/L] 4.4 mmol/L (01/03/24 PM) MCH [28-33 pg] 27.3 pg *LOW* (01/03/24 PM) MCHC [32-36 g/dL] 33.4 g/dL (01/03/24 PM) MCV [81-96 fL] 81.5 fL (01/03/24 PM) Mg [1.6-2.3 mg/dL] 1.5 mg/dL 6 *LOW* (01/03/24 PM) Na [137-145 mmol/L] 140 mmol/L (01/03/24 PM) PO4 [2.5-4.5 mg/dL] 4.3 mg/dL 7 (01/03/24 PM) Plts [150-350 K/uL] 195 K/uL (01/03/24 PM) PT [12.0-14.2 seconds] 12.9 seconds (01/03/24 2:27 PM) RBC [3.90-5.00 M/uL] 4.66 M/uL (01/03/24 2:27 PM) CyA 56 ng/mL 8 (01/03/24 2:27 PM) T Bili [0.2-1.3 mg/dL] 1.0 mg/dL (01/03/24 2:27 PM) Prot [6.3-8.2 g/dL] 6.6 g/dL (01/03/24 2:27 PM) WBC [4.0-10.4 K/uL] 4.50 K/uL (01/03/24 2:27 PM) 1Result Comment: Testing Performed By: Dept of Pathology [facility], [address] [place] [address], [place] [address] 2Result Comment: Testing Performed By: Dept of Pathology [facility], [address] [place] [address], [place] [address] 3Result Comment: Testing Performed By: Dept of Pathology [facility], [address] [place] [address], [place] [address] 4Result Comment: Testing Performed By: Dept of Pathology [facility], [address] [place] [address], [place] [address] 5Result Comment: Suggested therapeutic range for low-intensity Coumadin therapy for venous thromboembolism is INR 2.0-3.0 (ex: atrial fibrillation, history of TIA/stroke). For high risk patients, the suggested therapeutic range is INR 2.5-3.5 (ex: mechanical prosthetic valves). Testing Performed By: Dept of Pathology [facility], [address] [place] [address], [place] [address] 6Result Comment: Testing Performed By: Dept of Pathology [facility], [address] [place] [address], [place] [address] 7Result Comment: Testing Performed By: Dept of Pathology [facility], [address] [place] [address], [place] [address] 8Result Comment: No guideline supported therapeutic range [...] 200-300 ng/mL Testing was performed by Immunoassay ([employer] Account Service Representative). Social History Social History Type Response Tobacco Former smoker, Start ed age 14 Years. Stopped age 38 Years. Smoking Status Never smoked cigaret star Sex Female Sex Representation Female (finding) Patient Care team information Care Team Personnel Name: MD Bart, Keturah Walker Position: Physician Member Role: Primary Care Provider Address: [address] [place] [id number] Care Team Related Persons Name: VITOR REED Name: KUSHAL WYNN
[2024-03-28] MEDS: PIPERACILLIN/TAZOBACTAM 4.5 GM/100 ML BAG IV SCH (06:08)
[2024-03-28] MEDS: MoRPHine SULFATE 4 MG/ML 1 ML CARP\\VIAL IV PRN (06:08)
[2024-03-28] MEDS: LEVOTHYROXINE SODIUM 100 MCG TABLET PO SCH (06:11)
[2024-03-28] MEDS ORDERED: AMOXICILLIN/CLAVULANATE 875 MG TAB PO SCH (08:00)
[2024-03-28 08:20] LABS: Hematocrit (blood only) 31.5 % (37.0-47.0); Hemoglobin 10.4 g/dl (12.0-16.0); Mean Corpuscular Hemoglobin 29.8 pg (25.0-34.0); Mean Corpuscular Volume 90.3 fL (80.0-100.0); Mean Platelet Volume 8.6 fL (9.4-12.4); Platelet Count 147 K/uL (130-400); RDW Coefficient of Variation 15.9 % (11.5-14.5); RDW Standard Deviation 53.1 fL (36.4-46.3); Red Blood Count 3.49 M/uL (4.20-5.40); White Blood Count 2.69 K/ul (4.8-10.8)
[2024-03-28] MEDS: INSULIN ASPART PER UNIT CHARGE SC SCH (08:22)
[2024-03-28 08:32] LABS: Albumin Globulin Ratio 1.9 (0.9-2); Albumin Level 3.7 gm/dl (3.4-5.0); BUN Creatinine Ratio 7.9 (10-20); Bilirubin,Total 1.2 mg/dl (0.2-1.0); Calcium 9.7 mg/dl (8.6-10.3); Creatinine Clr Calc Pharmacy 47.8 ml/min; Potassium 3.9 mmol/L (3.5-5.1); Total Protein 5.7 gm/dl (6.0-8.3)
[2024-03-28] MEDS: ONDANSETRON INJ 2 MG/ML 2 ML VIAL IV PRN (08:50)
[2024-03-28] MEDS: cycloSPORINE (SANDIMMUNE) 25 MG CAP PO SCH ×2 (08:59→21:13)
[2024-03-28] MEDS: amLODIPine BESYLATE 5 MG TAB PO SCH (09:00)
[2024-03-28] MEDS: valACYclovir HCL 500 MG TABLET PO SCH (09:01)
[2024-03-28] MEDS: PANTOprazole 40 MG TAB PO SCH (09:01)
[2024-03-28] MEDS: POLYETHYLENE (MIRALAX) 17 GM PACK PO SCH (09:02)
[2024-03-28] MEDS: LORazepam 2 MG/1 ML VIAL IV STA (11:26)
[2024-03-28] MEDS: SODIUM CHLORIDE 0.9% 1,000 ML IV SCH (11:32)
--- NOTE | 2024-03-28 12:31 | Pharmacy Report ---
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 Pharmacy has been consulted for glycemic management while she is admitted. * Patient is ordered a clear liquid, T2DM diet and has been started on Zosyn for diverticulitis. * BSG on admit was 83mg/dL and was 92mg/dL at lunch time. No basal insulin will be initiated at this time as patient has been below goal BG range. Bolus insulin was ordered with loose CF coverage only for now (no CR coverage). PLAN FOR INPATIENT GLYCEMIC CONTROL: * Hold outpatient diabetes medications * Basal insulin * hold * Bolus insulin * NovoLog per scale ACHS or Q6hrs while NPO * Goal Range: Low 110 mg/dL - High 140 mg/dL * Correction Factor: 40 mg/dL/unit * Nutritional / Prandial insulin per carb ratio--NO COVERAGE AT THIS TIME
[2024-03-28 13:26] LABS: Estimated Average Glucose 105 mg/dl; Hemoglobin A1C 5.3 % (4.5-5.6)
--- NOTE | 2024-03-28 19:24 | Hospitalist Progress Note ---
Date of Service March 28, 2024 Assessment & Plan (1) Diverticulitis: (2) LISA (acute kidney injury): Plan 68-year-old female PMHx liver transplant T2DM, hypothyroidism, depression, GERD, cancer and chronic anemia presenting to ED for generalized abdominal pain ongoing since 03/09/2024 but worsening within the past 24 hours. States that she has been in the hospital several times for the same complaint. On initial ED workup, found to have no leukocytosis and lipase was 15. CTAP did reveal colonic mucosal thickening consistent with colitis and mild diverticulitis in the sigmoid colon without perforation or abscess. Pt was to be sent home but after her discussion with ED doc, stated that her pain was too severe to manage at home so admission was recommended. #Diverticulitis Ongoing severe abdominal pain since 03/09/2024, worsening within the past 24hours with associated N/V. Denying gross blood in stool, but has been having mix between diarrhea and constipation. No episodes of vomiting since early in AM day of arrival. - H&H stable on admission but pt does have a history of chronic anemia at baseline, continue to monitor - CT A/P revealed colonic mucosal thickening consistent with colitis, mild diverticulitis in the sigmoid colon, no perforation or abscess, splenomegaly - Pt has had minimal success maintaining oral intake; Will start on clear liquid diet and advance as tolerated; maintenance IV fluid ordered given low PO intake 03/28 - Zofran as needed for nausea - Pain management with morphine as ordered; continue bowel regimen as ordered - Continue Zosyn 4.5 g IV every 8 hours #LISA Minimally elevated Cr at time of admission, likely 2/2 poor oral intake given ongoing and worsening abdominal pain. - LISA resolved after receiving 1 L IV fluid on admission - UA with LE, WBC, and hyaline cast; urine culture pending - Has had dysuria since radiation, no worsening of symptoms; for now, will manage with abx for diverticulitis but pending cx will adjust as appropriate - Continue to promote oral hydration, add IVF as appropriate #Liver transplant recipient [facility] [address] [facility], 2/2 REBOLLAR - LFTs stable at time of admission; will follow throughout stay - Continue outpatient medications - Cyclosporine 25mg in am, 50mg in pm #Malignant neoplasm of anal canal Recently completed radiation therapy 02/2024. Follows with Dr. Bowie and [facility] [place] for such. - Continue conservative measures prn for perianal skin reactions as suggested by rad/onc note 02/28/2024 -- topical steroid cream prn (pt will bring this in) - Will be placed on bowel regimen given pain management; will monitor as appropriate if pt needs more supportive management for this - Started lidocaine jelly Q4H PRN #T2DM At home regimen, semaglutide SQ (Sundays) - hold - A1c 5.3% - Pharmacy managing #Chronic anemia- H&H stable, follow CBC throughout course #HTN- amlodipine, losartan #HLD- atorvastatin #Hypothyroidism- levothyroxine #GERD- pantoprazole #Mood- Sertraline Dispo: Continue inpatient stay for pain control and diet advancement VTE prophylaxis: SCDs; Encourage ambulation as able to also assist in bowel habits Ordered maintenance IVF Ordered Ativan Ordered lidocaine jelly Consulted pastoral care Admission and Anticipated Discharge Date Admission Date: March 27, 2024 Supervising Physician Co-Signing Physician Notes Attending Attestation - Chart reviewed in detail, care plan d/w PRICILA Garcia. I agree w/ the mcnamara components of her documentation. Very complex patient with ongoing GI issues including diverticulitis, anal cancer, abdominal pain & rectal pain, etc. Rogelio Taylor MD Subjective Patient seen and evaluated at bedside. She reports that she experiences i ntermittent extremely severe cramping abdominal pain, worst when trying to have BM. She had some nausea with her clear liquid diet breakfast. Nausea resolved with Zosyn. Patient reports at home her pain was at least 10/10, currently 6/10 with morphine. Patient became very distraught when discussing the hardships of this on her and her . Offered pastoral consult, which patient accepted. Discussed that she will likely remain in the hospital for a few days to get her pain controlled and tolerating a diet. She is understanding. No additional complaints or concerns at this time. Physical Exam Physical Exam: General: No acute distress, nondiaphoretic, well-developed, well-nourished. Tearful throughout evaluation. Cardiac: Regular rate and rhythm without murmurs gallops or rubs. Pulm: Clear to auscultation bilaterally without wheezes, rales or rhonchi. No respiratory distress. 92% on room air. Abdominal: Soft, nondistended. Most tender in LLQ but with mild tenderness throughout. No rebound/guarding. Bowel sounds present. Neuro: A&O x3. No focal neurological deficits. Results & Data Results & Data Vital Signs (Past 12 Hours) Vital Signs Temp Pulse Resp BP Pulse Ox O2 Del Method O2 Flow Rate 03/28/24 15:58 97.9 F 69 16 123/59 L 92 Room Air 03/28/24 08:46 123/74 03/28/24 07:49 97.9 F 63 16 118/73 97 Nasal Cannula 2 Laboratory Results Reviewed CBC Reviewed CMP Reviewed UA and urine culture Diagnostic Findings Reviewed CT A/P PG Care Time/CCT Total # of Minutes Spent Total Time Spent with Patient: Total time spent is greater than 50% in coordination of care (as documented) at patient's floor/unit and/or counseling patient: Coding Level of Care Code 66164 SUB INP/OBS CARE 3/50MIN Diagnoses Diverticulitis K57.92 LISA (acute kidney injury) N17.9
[2024-03-28] MEDS ORDERED: VALSARTAN 80 MG TAB PO SCH (21:00)
[2024-03-28] MEDS: ATORVASTATIN 20 MG TAB PO SCH (21:14)
[2024-03-28] MEDS: SERTRALINE HCL 100 MG TABLET PO SCH (21:15)
[2024-03-28] MEDS: VALSARTAN 80 MG TAB PO SCH (21:16)
[2024-03-29] MEDS: LIDOCAINE 2% JELLY 5 ML TUBE EXT PRN (06:05)
[2024-03-29] MEDS: LORazepam 0.5 MG TAB PO ONE (06:40)
[2024-03-29 08:15] LABS: Hematocrit (blood only) 30.8 % (37.0-47.0); Hemoglobin 10.3 g/dl (12.0-16.0); Mean Corpuscular Hemoglobin 29.7 pg (25.0-34.0); Mean Corpuscular Hgb Conc 33.4 g/dL (32.0-36.0); Mean Corpuscular Volume 88.8 fL (80.0-100.0); Mean Platelet Volume 8.5 fL (9.4-12.4); Platelet Count 155 K/uL (130-400); RDW Coefficient of Variation 15.4 % (11.5-14.5); RDW Standard Deviation 49.8 fL (36.4-46.3); Red Blood Count 3.47 M/uL (4.20-5.40); White Blood Count 1.94 K/ul (4.8-10.8)
[2024-03-29 08:25] LABS: Albumin Globulin Ratio 1.8 (0.9-2); Albumin Level 3.8 gm/dl (3.4-5.0); BUN Creatinine Ratio 5.3 (10-20); Bilirubin,Total 1.2 mg/dl (0.2-1.0); Calcium 9.4 mg/dl (8.6-10.3); Creatinine Clr Calc Pharmacy 51.4 ml/min; Globulin 2.1 gm/dl (2.5-4.0); Potassium 3.7 mmol/L (3.5-5.1); Total Protein 5.9 gm/dl (6.0-8.3)
--- NOTE | 2024-03-29 13:21 | Gastrointestinal Consultation ---
Date of Consultation March 29, 2024 Assessment & Plan (1) Diverticulitis: (2) History of liver transplant: (3) Mass of anus: Plan Patient with ongoing abdominal pain for several months. recently treating anorectal cancer with chemo/radiation with last dose 03/09. Pain seems to be exacerbated by bowel movement and likely secondary to mass. CT showing colitis and diverticulitis. - continue with IV zosyn. - continue with miralax 17gm daily to keep stools loose and easier to pass. -will discuss case further with Dr. Lang, further recommendations to follow. Supervising Physician Co-Signing Physician Notes 68-year-old female undergoing chemoradiation for anal cancer. Patient has severe anal discomfort. CT scan did not show perirectal abscess. There is not appear to be a lot of edema down in this area there is some mild proctitis colitis. This could just be radiation type changes. Question mild diverticulitis. Patient is currently on antibiotics for this. She states she gets severe rectal discomfort with defecation. On examination there is minimal changes around the rectum. Maybe mild erythema. The anus itself is patent without fissures fistulas or even real tenderness on palpation. On exam I do not find an obvious reason for her pain. She is not getting relief with oral oxycodone and fentanyl. 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 100 mg p.o. 3 times daily. Patient getting lidocaine topically for perianal burning. If persistence or uncontrolled symptoms I would probably reach out to her radiation oncologist and/or colorectal surgeon. History of Present Illness Reason for Consultation: ongoing severe abdominal pain Requesting Physician: Yajaira Garcia PA-C Attending Physician: Rogelio Taylor MD History of Present Illness Patient is a 68 year old female with a past medical history of liver transplant secondary to Daily 09/2022, type II DM, hypothyroidism, depression, GERD, anorectal cancer and chronic anemia presenting to ED for generalized abdominal pain ongoing "for months" but worsening within the 24 hours prior to admission. States that she has been in the hospital several times for the same complaint. She tells me pain will come and go and rates the pain as an 8/10. She was taking oxycodone 10mg q 6 hours and fentanyl patch as an outpatient and it was not touching her pain. Patient just finished chemo and radiation in February 2024 for anorectal cancer with plan to get surgery at [facility]. She describes her abdominal pain as a mix between sharp and cramping pain which is mainly localized to LLQ but does spread across entire lower abdomen. The pain is worse when the patient is attempting to have a bowel movement and afterwards. She also notes nausea and vomiting and she has been unable to keep food down. She also has been having difficulty with urination and dysuria since completion of radiation. she tells me she is "all burned" in her pelvis from the radiation. she has noted constipation. no blood in her stools or melena. CT 03/27 Colonic mucosal thickening consistent with colitis. There is also mild diverticulitis in the sigmoid colon. No perforation or abscess. Splenomegaly. She was started on zosyn but has noticed no difference in symptoms. Allergies Allergy/AdvReac Type Severity Reaction Status Date / Time bee venom protein (honey bee) Allergy Severe Anaphylaxis Verified 12/27/23 10:55 Influenza Virus Vaccines Allergy Severe Anaphylaxis Verified 12/27/23 10:55 colchicine Allergy Hives Verified 12/27/23 10:55 prednisone AdvReac Severe Anxiety Verified 12/27/23 10:55 tetracycline AdvReac Severe Severe Verified 12/27/23 10:55 stomach pains Home Medications Medication Instructions Recorded Confirmed Type sertraline 100 mg tablet 100 mg PO QPM 02/02/23 03/27/24 History amlodipine 10 mg tablet 10 mg PO QAM 04/21/23 03/27/24 History cyclosporine 25 mg capsule 50 mg PO BID 10/18/23 03/27/24 History btzlzdig-xaj-rzalt ac 400 1 tab PO QAM 10/18/23 03/27/24 History mcg-calcium carb 500 mg-vit K1 20 mcg tablet (Women's 50 Plus Multivitamin) pantoprazole 40 mg tablet,delayed 40 mg PO DAILY 10/18/23 03/27/24 History release (Protonix) pen needle, diabetic 32 gauge x #100 ea 11/05/23 Rx " (BD Ultra-Fine Lani Pen Needle) atorvastatin 20 mg tablet 20 mg PO HS 11/06/23 03/27/24 History oxycodone 5 mg tablet 5 mg PO Q6H PRN pain #14 tabs 11/11/23 03/27/24 Rx valacyclovir 1 gram tablet 1,000 mg PO TID 11/23/23 03/27/24 History FreeStyle Lisy 3 Plus Sensor #6 ea 01/10/24 Rx (blood-glucose sensor) semaglutide 0.25 mg or 0.5 mg (2 0.5 mg (0.736 mL) subcut Q7D #9 mL 01/12/24 03/27/24 Rx mg/3 mL) subcutaneous pen injector (Ozempic) valsartan 80 mg tablet 80 mg PO QPM #30 tabs 02/14/24 03/27/24 Rx levothyroxine 100 mcg tablet 100 mcg PO DAILY #30 tabs 02/16/24 03/27/24 Rx Patient History Medical History Diabetes mellitus type 2 with complications Sinusitis Encephalopathy, hepatic Left wrist sprain Benign essential tremor Generalized weakness LISA (acute kidney injury) Moeller esophagus Portal hypertension Neutropenic typhlitis Pancytopenia Hyperammonemia Hepatic encephalopathy Abdominal pain Hypothyroidism Liver disease Weakness Hyperbilirubinemia DAILY (nonalcoholic steatohepatitis) History of colon polyps BENIGN Depression History of fractured vertebra CURRENT, HX FALL JULY 2021 - FELL OF THE TOILET - NO INTERVENTION AT PRESENT/ [facility] FOR TO DISCUSS TX OPTIONS - POTENTIAL BACK BRACE Urge incontinence 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 Abnormal finding on breast imaging Urinary tract infection Fracture of fourth lumbar vertebra Chronic diarrhea SOMETIMES - when takes lactulose Benign paroxysmal positional vertigo of left ear Sensorineural hearing loss (SNHL) of both ears asymmetrical, left WRS Seasonal allergies Thrombocytopenia Syncope Epistaxis Arthritis History of kidney stones GERD (gastroesophageal reflux disease) Anemia HX Temporomandibular joint disorder NO LOCKING/WEARS 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 Anxiety and depression Diabetes mellitus, type 2 GI bleed RECENT HOSPITALIZED - PT DENIES HX GI BLEED Colitis with rectal bleeding Spleen enlarged MONITORS - PT REPORTS FROM THE DAILY Liver cirrhosis secondary to DAILY Hiatal hernia Stucco keratoses Heel spur B/L feet Moeller's esophagus with esophagitis Surgical History H/O thumb surgery RT/LEFT JOINT REPAIR History of cystoscopy History of appendectomy History of tooth extraction History of tonsillectomy and adenoidectomy H/O total hysterectomy History of arthroscopy of knee Left Knee - meniscus/cartilage History of esophagogastroduodenoscopy (EGD) History of colonoscopy Hx of cholecystectomy Family History Brother Coronary heart disease Heart disease Lupus Mother Family history of diabetes mellitus Hypertension Heart disease Sister Family history of diabetes mellitus Son Family history of diabetes mellitus Father Family hx of colon cancer Hearing loss Hypertension Cancer Heart disease Grandfather (Maternal) Family hx of colon cancer Grandmother (Maternal) Heart disease Grandmother (Paternal) Heart disease Grandfather (Paternal) Heart disease Other No family history of adverse response to anesthesia No family history of bleeding disorder Social History Smoking Status: Former smoker Tobacco Type: Cigarettes Cigarettes Per Day: 7 cigarettes a day.; Second Hand Exposure: No; Do You Dip or Chew Tobacco: No; Tobacco Cessation Education Requested by Patient: No Hx Alcohol Use: No Hx Substance Use: No Preferred Language: Jordanian Communication Ability: Effective Security Orderly Required: No Beliefs That Will Affect Care: Anabaptist marital status: Current Living Situation: Spouse Current Living Situation Comment: lives in ran[place] style home with current occupational status: employed and retired How many Children do You have: 0 Other Information That Helps Us Care for You: No Feels Safe at Home: Yes Safety Concerns: Feels Safe At This Time Assistive Devices: None Assistive Devices Comment: Oxygen PRN when sats are low from narcotics. Review of Systems Review of Systems: All systems reviewed & are unremarkable except as noted in HPI & below Physical Exam Constitutional: WD/WN, vitals as above Respiratory: normal respiratory effort, lungs clear to auscultation Cardiovascular: Rate/Rhythm: regular rate and regular rhythm Gastrointestinal (Abdomen): lower abdominal tenderness b/l. no guarding. soft. normal bowel sounds. Psychiatric: Orientation: alert and oriented x 3 Results & Data Vital Signs (Past 12 Hours) Vital Signs Temp Pulse Resp BP Pulse Ox O2 Del Method 03/29/24 03:25 98.2 F 66 18 113/58 L 95 Room Air Coding Level of Care Code 95734 INT INP/OBS CARE 2/55MIN Diagnoses Diverticulitis K57.92 History of liver transplant Z94.4 Mass of anus K62.89
[2024-03-29] MEDS: LORazepam 0.5 MG TAB PO PRN (15:13)
[2024-03-29] MEDS: fentaNYL 25 MCG/HR TDSY TD SCH (16:38)
--- NOTE | 2024-03-29 17:01 | Hospitalist Progress Note ---
Date of Service March 29, 2024 Assessment & Plan (1) Diverticulitis: (2) Abdominal pain: (3) Mass of anus: (4) History of liver transplant: (5) Diabetes mellitus type 2 with complications: Plan 68-year-old female PMHx liver transplant T2DM, hypothyroidism, depression, GERD, cancer and chronic anemia presenting to ED for generalized abdominal pain ongoing since 03/09/2024 but worsening within the past 24 hours. States that she has been in the hospital several times for the same complaint. On initial ED workup, found to have no leukocytosis and lipase was 15. CTAP did reveal colonic mucosal thickening consistent with colitis and mild diverticulitis in the sigmoid colon without perforation or abscess. Pt was to be sent home but after her discussion with ED doc, stated that her pain was too severe to manage at home so admission was recommended. #Diverticulitis Ongoing severe abdominal pain since 03/09/2024, worsening within the past 24hours with associated N/V. Denying gross blood in stool, but has been having mix between diarrhea and constipation. No episodes of vomiting since early in AM day of arrival. - H&H stable on admission but pt does have a history of chronic anemia at baseline, continue to monitor - Leukopenia appears chronic, likely further exacerbated by chronic suppressive therapy from her liver transplant. Fortunately, the rest of her cell lines are appropriate - CT A/P revealed colonic mucosal thickening consistent with colitis, mild diverticulitis in the sigmoid colon, no perforation or abscess, splenomegaly - Pt has had minimal success maintaining oral intake; advanced to full liquid diet. Well tolerating so far, continue to advance as tolerated - Zofran as needed for nausea, scheduled MiraLAX and as needed milk of magnesia, Dulcolax - Continue Zosyn 4.5 g IV every 8 hours - GI consulted due to ongoing severe pain, appreciate recommendations - Pain regimen further adjusted: Started gabapentin 100 mg TID, morphine 2-4 mg Q2H PRN pain, fentanyl patch 25 mcg Q3D, Ativan 0.5 mg Q6H PRN anxiety #Malignant neoplasm of anal canal Recently completed radiation therapy 02/2024. Follows with Dr. Bowie and [facility] for such. - Continue conservative measures prn for perianal skin reactions as suggested by rad/onc note 02/28/2024 -- topical steroid cream prn (pt will bring this in) - Will be placed on bowel regimen given pain management; will monitor as appropr iate if pt needs more supportive management for this - Continue lidocaine jelly Q4H PRN #Liver transplant recipient September 2022 at [facility], 2/2 REBOLLAR - LFTs stable at time of admission; will follow throughout stay - Continue outpatient medications - Cyclosporine 25mg in am, 50mg in pm #T2DM At home regimen, semaglutide SQ (Sundays) - hold - A1c 5.3% - Novolog scale as noted --Goal BSG Range: Low 110 mg/dL, High 140 mg/dL --Correction Factor: 40 mg/dL/unit ----NO CR coverage --BSGs ACHS if eating, q6h if npo #LISA Minimally elevated Cr at time of admission, likely 2/2 poor oral intake given ongoing and worsening abdominal pain. - Now resolved. Urine culture negative. Continue to encourage PO hydration #Chronic anemia- H&H stable, follow CBC throughout course #HTN- amlodipine, losartan #HLD- atorvastatin #Hypothyroidism- levothyroxine #GERD- pantoprazole #Mood- Sertraline Dispo: Continue inpatient stay for pain control and diet advancement VTE prophylaxis: SCDs; Encourage ambulation as able to also assist in bowel habits Consulted GI and discussed case/recommendations with Dr. Lang Advanced diet to full liquid Started gabapentin, Ativan, adjusted morphine Admission and Anticipated Discharge Date Admission Date: March 27, 2024 Supervising Physician Co-Signing Physician Notes Attending Attestation and Progress Note: Pt seen/examined, chart reviewed in detail, care plan d/w PRICILA Garcia. I agree w/ the mcnamara components of her documentation. When I saw patient at bedside she was quite tearful. She complained of severe abd pain & rectal pain; former is worse. Pain is lower quadrants. She stated she "couldn't go on like this." Gen - tearful, uncomfortable appearing Psych - a/o x 3 Following my visit I discussed her care with PRICILA Sauceda. We discussed obtaining GI consultation for additional recs re: her abd pain. Need to discuss her care with heme/onc (Dr Demetrius Shi, [facility]). Rogelio Taylor MD Subjective Patient seen and evaluated at bedside. She reports that her pain medication somewhat helps, but does not last long enough. She also states she feels that her anxiety is so bad that it affects the efficacy of her pain meds. The pain is worst in her LLQ, but when severe it does radiate throughout her abdomen. She reports passing "small flecks" of stool, but overall feels constipated. GI team entered the room towards the end of my visit. We discussed adjustments to her pain regimen and plan moving forward. No additional complaints or concerns at this time. Physical Exam Physical Exam: General: No acute distress, nondiaphoretic, well-developed, well-nourished. Tearful throughout evaluation. Cardiac: Regular rate and rhythm without murmurs gallops or rubs. Pulm: Clear to auscultation bilaterally without wheezes, rales or rhonchi. No respiratory distress. 95% on room air. Abdominal: Soft, nondistended. Most tender in LLQ but with mild tenderness throughout. No rebound/guarding. Bowel sounds present. Neuro: A&O x3. No focal neurological deficits. Results & Data Results & Data Vital Signs (Past 12 Hours) Vital Signs Temp Pulse Resp BP Pulse Ox O2 Del Method 03/29/24 14:06 98.6 F 73 17 121/61 95 Room Air Laboratory Results Reviewed CBC Reviewed CMP Urine culture PG Care Time/CCT Total # of Minutes Spent Total Time Spent with Patient: Total time spent is greater than 50% in coordination of care (as documented) at patient's floor/unit and/or counseling patient: Coding Level of Care Code 39015 SUB INP/OBS CARE 3/50MIN Diagnoses Diverticulitis K57.92 Abdominal pain R10.9 Mass of anus K62.89 History of liver transplant Z94.4 Diabetes mellitus type 2 with complications E11.8
[2024-03-29] MEDS: MoRPHine SULFATE 2 MG/ML CARP IV PRN (19:56)
[2024-03-29] MEDS: MoRPHine SULFATE 4 MG/ML 1 ML CARP\\VIAL IV PRN (22:05)
[2024-03-29] MEDS: GABAPENTIN 100 MG CAP PO SCH (22:07)
[2024-03-30] MEDS: CHECK fentaNYL PATCH PLACEMENT SCH (00:14)
[2024-03-30 07:15] LABS: Hematocrit (blood only) 29.4 % (37.0-47.0); Hemoglobin 9.9 g/dl (12.0-16.0); Mean Corpuscular Hemoglobin 29.6 pg (25.0-34.0); Mean Corpuscular Hgb Conc 33.7 g/dL (32.0-36.0); Mean Corpuscular Volume 87.8 fL (80.0-100.0); Mean Platelet Volume 8.5 fL (9.4-12.4); Platelet Count 150 K/uL (130-400); RDW Coefficient of Variation 15.1 % (11.5-14.5); RDW Standard Deviation 48.4 fL (36.4-46.3); Red Blood Count 3.35 M/uL (4.20-5.40); White Blood Count 1.95 K/ul (4.8-10.8)
[2024-03-30 07:32] LABS: Albumin Globulin Ratio 1.8 (0.9-2); Albumin Level 3.5 gm/dl (3.4-5.0); BUN Creatinine Ratio 5.5 (10-20); Calcium 9.3 mg/dl (8.6-10.3); Creatinine Clr Calc Pharmacy 53.1 ml/min; Globulin 1.9 gm/dl (2.5-4.0); Potassium 3.5 mmol/L (3.5-5.1); Total Protein 5.4 gm/dl (6.0-8.3)
--- NOTE | 2024-03-30 10:25 | Gastroenterology Progress Note ---
Date of Service March 30, 2024 Assessment & Plan (1) Mass of anus: (2) Diverticulitis: Plan Patient with ongoing pain. - continue with miralax 17gm daily. - continue with IV zosyn. - will order a differential to this mornings CBC, will await results. - If ongoing issues with pain would reach out to her radiation oncologist and/or colorectal surgeon. Admission and Anticipated Discharge Date Admission Date: March 27, 2024 Supervising Physician Co-Signing Physician Notes Reviewed Dr. Knox's notes radiation oncology. Patient has a known diverticular stricture. This could not be traversed on a colonoscopy by colorectal surgery and [facility]. He notes that there was a plan follow-up flexible sigmoidoscopy in the near future. This was to be performed I believe down to [facility]. She is developing a pancytopenia. She is borderline neutropenic at present absolute neutrophil 1.1. Her rectal examination yesterday did not show an obvious cause for the level of discomfort she is experiencing. Question whether this is related to her diverticular stricture and/or recurrent diverticulitis in this area. She is on broad-spectrum antibiotics we have added MiraLAX. I will attempt to discussed the case with Dr. Peacock at [facility] to get some direction on how he would like to proceed as he is familiar with her and she his this patient with follow-up in the near future. Subjective Patient tells me she has had ongoing abdominal pain. rates as 6/10. she feels morphine every 2 hours and ativan every 6 hours seems to be helping with her symptoms though still appreciates discomfort. she is not sure Neurontin will help. she tells me she had tried this as well as lyrica as an outpatient without benefit. she had a looser bowel movement this morning that was easier to pass, but still notes a significant amount of pain with bowel movement. 03/30/24 wbc 1.95, hgb 9.9, hct 29.4, platelets 150. Review of Systems Review of Systems: All systems reviewed & are unremarkable except as noted in HPI & below Physical Exam Constitutional: WD/WN, vitals as above Respiratory: normal respiratory effort, lungs clear to auscultation Cardiovascular: Rate/Rhythm: regular rate and regular rhythm Gastrointestinal (Abdomen): lower abdominal tenderness, no guarding, soft, normal bowel sounds. Psychiatric: Orientation: alert and oriented x 3 Results & Data Results & Data Vital Signs (Past 12 Hours) Vital Signs Temp Pulse Resp BP Pulse Ox O2 Del Method 03/30/24 07:06 97.7 F 69 16 115/69 93 Room Air Coding Level of Care Code 19938 SUB INP/OBS CARE 2/35MIN Diagnoses Mass of anus K62.89 Diverticulitis K57.92
[2024-03-30 10:56] LABS: Basophils # (auto) 0.02 K/uL (0.00-0.20); Eosinophils # (auto) 0.22 K/uL (0.00-0.50); Eosinophils % (auto) 10.7 %; Immature Granulocytes # (auto) 0.01 K/uL (0.01-0.20); Immature Granulocytes % (auto) 0.5 %; Lymphocytes # (auto) 0.21 K/uL (1.20-3.40); Lymphocytes % (auto) 10.2 %; Monocytes # (auto) 0.45 K/uL (0.11-0.59); Monocytes % (auto) 21.8 %; Neutrophils # (auto) 1.15 K/uL (1.40-6.50); Neutrophils % (auto) 55.8 %
--- NOTE | 2024-03-30 17:57 | Hospitalist Progress Note ---
Date of Service March 30, 2024 Assessment & Plan (1) Diverticulitis: (2) Abdominal pain: (3) Mass of anus: (4) Pancytopenia: (5) History of liver transplant: (6) Diabetes mellitus type 2 with complications: Plan 68-year-old female PMHx liver transplant T2DM, hypothyroidism, depression, GERD, cancer and chronic anemia presenting to ED for generalized abdominal pain ongoing since 03/09/2024 but worsening within the past 24 hours. States that she has been in the hospital several times for the same complaint. On initial ED workup, found to have no leukocytosis and lipase was 15. CTAP did reveal colonic mucosal thickening consistent with colitis and mild diverticulitis in the sigmoid colon without perforation or abscess. Pt was to be sent home but after her discussion with ED doc, stated that her pain was too severe to manage at home so admission was recommended. #Diverticulitis Ongoing severe abdominal pain since 03/09/2024, worsened day prior to admission with associated N/V. Denying gross blood in stool, but has been having mix between diarrhea and constipation. No episodes of vomiting since early in AM day of arrival. - H&H stable on admission but pt does have a history of chronic anemia at baseline, see below - CT A/P revealed colonic mucosal thickening consistent with colitis, mild diverticulitis in the sigmoid colon, no perforation or abscess, splenomegaly She does have known diverticular stricture - Pt has had minimal success maintaining oral intake; advanced to full liquid diet. Well tolerating so far, continue to advance as tolerated - Zofran as needed for nausea, scheduled MiraLAX and as needed milk of magnesia, Dulcolax - Continue Zosyn 4.5 g IV every 8 hours - GI consulted due to ongoing severe pain, appreciate recommendations - Pain regimen: gabapentin 100 mg TID, morphine 2-4 mg IV Q2H PRN pain, Ativan 0.5 mg Q6H PRN anxiety, fentanyl patch 25 mcg Q3D -- will increase to 50 mcg for next patch #Malignant neoplasm of anal canal Recently completed radiation therapy 02/2024. Follows with Dr. Bowie and [facility] [place] for such. - Continue conservative measures prn for perianal skin reactions as suggested by rad/onc note 02/28/2024 -- topical steroid cream prn (pt will bring this in) - Will be placed on bowel regimen given pain management; will monitor as appropriate if pt needs more supportive management for this - Continue lidocaine jelly Q4H PRN #Chronic anemia- H&H stable, follow CBC throughout course - Leukopenia appears chronic, likely further exacerbated by chronic suppressive therapy from her liver transplant - Now developing pancytopenia with borderline neutropenia with absolute neutrophil count of 1.15, and now on neutropenic precautions - Possibly from cyclosporine (immunosuppressive agent), capecitabine (oral chem o), and/or B12/folate deficiencies ? - Will check cyclosporine level, and B12 and folate with AM labs - Discussed case with Dr. Shi over the phone, who recommended Neupogen 480 mg x 2 days. Will provide one dose now #Liver transplant recipient September 2022 at [facility], 2/2 REBOLLAR - LFTs stable at time of admission; will follow throughout stay - Continue outpatient medications - Cyclosporine 25mg in am, 50mg in pm #T2DM At home regimen, semaglutide SQ (Sundays) - hold - A1c 5.3% - Novolog scale as noted --Goal BSG Range: Low 110 mg/dL, High 140 mg/dL --Correction Factor: 40 mg/dL/unit ----NO CR coverage --BSGs ACHS if eating, q6h if npo #LISA Minimally elevated Cr at time of admission, likely 2/2 poor oral intake given ongoing and worsening abdominal pain. - Now resolved. Urine culture negative. Continue to encourage PO hydration #HTN- amlodipine, losartan #HLD- atorvastatin #Hypothyroidism- levothyroxine #GERD- pantoprazole #Mood- Sertraline Dispo: Continue inpatient stay for pain control and diet advancement VTE prophylaxis: SCDs; Encourage ambulation as able to also assist in bowel habits Reviewed recommendations from GI Discussed case with Dr Shi Ordered Neupogen Admission and Anticipated Discharge Date Admission Date: March 27, 2024 Supervising Physician Co-Signing Physician Notes Attending Attestation -- Chart reviewed in detail, care plan d/w PRICILA Garcia. I agree w/ the mcnamara components of her documentation. Due to worsening neutropenia/leukopenia we contacted Dr Demetrius Shi, her primary oncologist, by phone this evening. We discussed her CBC abnormalities & her overall status. In light of diverticulitis, worsening neutropenia, etc will give neupogen 480mcg x 2 doses, first dose today, 2nd dose tomorrow. Daily CBC. Check stool BioFire & c diff. Cont zosyn for diverticulitis. Check cyclosporin level. Appreciate GI consultation & recs. Rogelio Taylor MD Subjective Patient seen and evaluated at bedside. She reports the adjustment in her pain regimen yesterday did provide some improvement. She states this morning she had a bowel movement (diarrhea) with associated severe abdominal pain and cramping. She reports she was nauseous during this episode but did not vomit. She has had no further nausea since. She states that GI is planning to call her radiation oncologist and colorectal physician. Physical Exam Physical Exam: General: No acute distress, nondiaphoretic, well-developed, well-nourished. Anxious. Cardiac: Regular rate and rhythm without murmurs gallops or rubs. Pulm: Clear to auscultation bilaterally without wheezes, rales or rhonchi. No respiratory distress. 95% on room air. Abdominal: Soft, nondistended. Tender to palpation throughout lower abdomen. No rebound/guarding. Bowel sounds present. Neuro: A&O x3. No focal neurological deficits. Results & Data Results & Data Vital Signs (Past 12 Hours) Vital Signs Temp Pulse Resp BP Pulse Ox O2 Del Method 03/30/24 14:49 98.6 F 75 16 115/70 95 Room Air 03/30/24 07:06 97.7 F 69 16 115/69 93 Room Air Laboratory Results Reviewed CBC with differential Reviewed CMP PG Care Time/CCT Total # of Minutes Spent Total Time Spent with Patient: Total time spent is greater than 50% in coordination of care (as documented) at patient's floor/unit and/or counseling patient: Coding Level of Care Code 61679 SUB INP/OBS CARE 3/50MIN Diagnoses Diverticulitis K57.92 Abdominal pain R10.9 Mass of anus K62.89 Pancytopenia D61.818 History of liver transplant Z94.4 Diabetes mellitus type 2 with complications E11.8
[2024-03-30] MEDS: FILGRASTIM 480 MCG/1.6 ML VIAL SC ONE (19:39)
[2024-03-31 01:20] LABS: Adenovirus F 40/41 PCR Not Detected (NotDetected); Astrovirus PCR Not Detected (NotDetected); Campylobacter PCR Not Detected (NotDetected); Cryptosporidium PCR Not Detected (NotDetected); Cyclospora cayetanensis PCR Not Detected (NotDetected); Entamoeba histolytica PCR Not Detected (NotDetected); Enteroaggregative E.coli(EAEC) Not Detected (NotDetected); Enteropathogenic E.coli (EPEC) Not Detected (NotDetected); Enterotoxigenic E.coli (ETEC) Not Detected (NotDetected); Giardia lamblia PCR Not Detected (NotDetected); Norovirus GI/GII PCR Not Detected (NotDetected); Plesiomonas shigelloides PCR Not Detected (NotDetected); Rotavirus A PCR Not Detected (NotDetected); Salmonella PCR Not Detected (NotDetected); Sapovirus PCR Not Detected (NotDetected); Shiga-like Toxin E.coli (STEC) Not Detected (NotDetected); Shigella/Enteroinvasive E.coli Not Detected (NotDetected); Vibrio cholerae PCR Not Detected (NotDetected); Vibrio species PCR Not Detected (NotDetected); Yersinia enterocolitica PCR Not Detected (NotDetected)
[2024-03-31] MEDS ORDERED: Nursing to Pharmacy Communication SCH (05:15)
[2024-03-31 07:22] LABS: Basophils # (auto) 0.02 K/uL (0.00-0.20); Basophils % (auto) 0.3 %; Eosinophils # (auto) 0.23 K/uL (0.00-0.50); Eosinophils % (auto) 3.8 %; Hematocrit (blood only) 29.4 % (37.0-47.0); Hemoglobin 10.2 g/dl (12.0-16.0); Immature Granulocytes # (auto) 0.05 K/uL (0.01-0.20); Immature Granulocytes % (auto) 0.8 %; Lymphocytes # (auto) 0.25 K/uL (1.20-3.40); Lymphocytes % (auto) 4.2 %; Mean Corpuscular Hemoglobin 30.7 pg (25.0-34.0); Mean Corpuscular Hgb Conc 34.7 g/dL (32.0-36.0); Mean Corpuscular Volume 88.6 fL (80.0-100.0); Mean Platelet Volume 8.9 fL (9.4-12.4); Monocytes # (auto) 0.61 K/uL (0.11-0.59); Monocytes % (auto) 10.2 %; Neutrophils # (auto) 4.82 K/uL (1.40-6.50); Neutrophils % (auto) 80.7 %; Platelet Count 142 K/uL (130-400); RDW Standard Deviation 49.1 fL (36.4-46.3); Red Blood Count 3.32 M/uL (4.20-5.40); White Blood Count 5.98 K/ul (4.8-10.8)
[2024-03-31 07:48] LABS: Albumin Globulin Ratio 1.8 (0.9-2); Albumin Level 3.5 gm/dl (3.4-5.0); BUN Creatinine Ratio 5.8 (10-20); Bilirubin,Total 1.1 mg/dl (0.2-1.0); Calcium 9.6 mg/dl (8.6-10.3); Creatinine Clr Calc Pharmacy 46.5 ml/min; Globulin 1.9 gm/dl (2.5-4.0); Potassium 3.8 mmol/L (3.5-5.1); Total Protein 5.4 gm/dl (6.0-8.3)
[2024-03-31 08:04] LABS: Folate (Folic Acid),Ser orPlas 16.23 ng/ml (>5.38)
--- NOTE | 2024-03-31 11:50 | Gastroenterology Progress Note ---
Date of Service March 31, 2024 Assessment & Plan (1) Diverticulitis: (2) Mass of anus: Plan Patient still with ongoing pain despite pain medications. Contine with miralax to keep stools looser. Will discuss case further with Dr. Lang. Further recommendations to follow. Admission and Anticipated Discharge Date Admission Date: March 27, 2024 Supervising Physician Co-Signing Physician Notes Patient sleeping arouses to voice Continues to complain of significant abdominal pain. Abdomen is relatively benign. Her pain pattern seems exaggerated in regards to the clinical findings. Patient was being considered for sigmoid resection by Dr. Bowie in [facility]. This was delayed until treatment of her rectal cancer. She was to follow-up with Dr. Peacock in May for evaluation and then further evaluation of the sigmoid stricture with potential repeat endoscopic evaluation and/or resection. This sigmoid stricture certainly may be playing a role in her pain. It would be nice if resection resolves those symptoms. To facilitate that patient best to follow-up with her colorectal surgeon in [place]. Dr. Peacock suggested discharge and his office would reach out to schedule follow-up. Patient does not feel that this is an option for her due to her pain. Doubt that [facility] or [facility] would take her on a weekend for an elective sigmoid resection. Alternative the patient could be discharged. If she requires readmission suggest that she present herself to the facility in [place] Subjective Patient still having ongoing abdominal pain. she does feel better with her current regimen of morphine and ativan, but still has pain and knows she can't go home on these medications. she does not feel like she will be able to go home given her degree of pain. she is having loose stools with miralax but still significant pain with bowel movements. Review of Systems Review of Systems: All systems reviewed & are unremarkable except as noted in HPI & below Physical Exam Constitutional: WD/WN, vitals as above Respiratory: normal respiratory effort, lungs clear to auscultation Cardiovascular: Rate/Rhythm: regular rate and regular rhythm Gastrointestinal (Abdomen): LLQ tenderness to palpation, no guarding, soft, normal bowel sounds. Psychiatric: Orientation: alert and oriented x 3 Results & Data Results & Data Vital Signs (Past 12 Hours) Vital Signs Temp Pulse Resp BP Pulse Ox O2 Del Method 03/31/24 07:10 98.1 F 75 16 113/68 92 Room Air Coding Level of Care Code 82718 SUB INP/OBS CARE 04/08MIN Diagnoses Diverticulitis K57.92 Mass of anus K62.89
--- NOTE | 2024-03-31 19:14 | Hospitalist Progress Note ---
Date of Service March 31, 2024 Assessment & Plan (1) Diverticulitis: (2) Abdominal pain: (3) Mass of anus: (4) Pancytopenia: (5) History of liver transplant: (6) Diabetes mellitus type 2 with complications: Plan 68-year-old female PMHx liver transplant T2DM, hypothyroidism, depression, GERD, cancer and chronic anemia presenting to ED for generalized abdominal pain ongoing since 03/09/2024 but worsening within the past 24 hours. States that she has been in the hospital several times for the same complaint. On initial ED workup, found to have no leukocytosis and lipase was 15. CTAP did reveal colonic mucosal thickening consistent with colitis and mild diverticulitis in the sigmoid colon without perforation or abscess. Pt was to be sent home but after her discussion with ED doc, stated that her pain was too severe to manage at home so admission was recommended. Pain pattern seems exaggerated compared to clinical findings. #Diverticulitis Ongoing severe abdominal pain since 03/09/2024, worsened day prior to admission with associated N/V. Denying gross blood in stool, but has been having mix between diarrhea and constipation. No episodes of vomiting since early in AM day of arrival. - H&H stable on admission but pt does have a history of chronic anemia at baseline, see below - CT A/P revealed colonic mucosal thickening consistent with colitis, mild diverticulitis in the sigmoid colon, no perforation or abscess, splenomegaly > She does have known diverticular stricture - Pt has had minimal success maintaining oral intake; advanced to full liquid diet. Well tolerating so far, continue to advance as tolerated - Zofran as needed for nausea, scheduled MiraLAX and as needed milk of magnesia, Dulcolax - Continue Zosyn 4.5 g IV every 8 hours - GI consulted due to ongoing severe pain, appreciate recommendations - Pain regimen: gabapentin 100 mg TID, morphine 2-4 mg IV Q2H PRN pain, Ativan 0.5 mg Q6H PRN anxiety, fentanyl patch 25 mcg Q3D -- will increase to 50 mcg for next patch - Patient was being considered for sigmoid resection due to sigmoid stricture by Dr. Bowie at [facility], but unfortunately this was deferred until completion of her rectal cancer treatment (which did occur and February 2024). GI spoke with Dr. Peacock, GI PA-C informed me via secure messaging that Dr. Peacock recommending transfer to [facility] if she is requiring ongoing inpatient treatment as Dr. Bowie is outside installation machinist there this weekend > Patient has been accepted at [facility]. Transfer paperwork completed. Patient informed. #Malignant neoplasm of anal canal Recently completed radiation therapy 02/2024. Follows with Dr. Bowie and Gordy Freeman for such. - Continue conservative measures prn for perianal skin reactions as suggested by rad/onc note 02/28/2024 -- topical steroid cream prn (pt will bring this in) - Continue bowel regimen outlined above - Continue lidocaine jelly Q4H PRN #Chronic anemia- H&H stable, follow CBC throughout course - Leukopenia appears chronic, likely further exacerbated by chronic suppressive therapy from her liver transplant - Was developing pancytopenia with borderline neutropenia with absolute neutrophil count of 1.15, discussed via phone call with Dr. Shi (patient's oncologist), who recommended Neupogen 480 mg -- cell lines augmented appropriately - B12/Folate WNL, cyclosporine level sent out - Continue to monitor #Liver transplant recipient September 2022 at [facility], 2/2 REBOLLAR - LFTs stable at time of admission; will follow throughout stay - Continue outpatient medications - Cyclosporine 25mg in am, 50mg in pm #T2DM At home regimen, semaglutide SQ (Sundays) - hold - A1c 5.3% - Novolog scale as noted --Goal BSG Range: Low 110 mg/dL, High 140 mg/dL --Correction Factor: 40 mg/dL/unit ----NO CR coverage --BSGs ACHS if eating, q6h if npo #LISA Minimally elevated Cr at time of admission, likely 2/2 poor oral intake given ongoing and worsening abdominal pain. - Now resolved. Urine culture negative. Continue to encourage PO hydration #HTN- amlodipine, losartan #HLD- atorvastatin #Hypothyroidism- levothyroxine #GERD- pantoprazole #Mood- Sertraline Dispo: Accepted for transfer at [facility]. Transfer paperwork completed. Patient informed. Unclear when transfer will actually occur VTE prophylaxis: SCDs; Encourage ambulation as able to also assist in bowel habits CODE STATUS: DNR/DNI Admission and Anticipated Discharge Date Admission Date: March 27, 2024 Supervising Physician Co-Signing Physician Notes Attending Attestation - Chart reviewed, care plan d/w PRICILA Garcia. I agree w/ the mcnamara components of her documentation. Patient accepted in transfer to [facility] [place] in [place]. This is where her colorectal surgeon is located. Rogelio Taylor MD Subjective Patient seen and evaluated at bedside. She continues to endorse severe abdominal pain. She notes she is having now "horrible diarrhea" which is further exacerbating her pain. She does state that her current pain regimen is providing better pain control than she has had previously, however states she is unable to return home in her current state. She states her nausea and vomiting really no longer part of the problem at hand. Further discussed lab results and discussion myself and Dr. Taylor had with Dr. Shi (patient's oncologist) last evening. Returned to bedside in the evening to inform patient she has been accepted for transfer at [facility]. Physical Exam Physical Exam: General: No acute distress, nondiaphoretic, well-developed, well-nourished. Anxious. Cardiac: Regular rate and rhythm without murmurs gallops or rubs. Pulm: Clear to auscultation bilaterally without wheezes, rales or rhonchi. No respiratory distress. 92% on room air. Abdominal: Soft, nondistended. Tender to palpation throughout lower abdomen. No rebound/guarding. Bowel sounds present. Neuro: A&O x3. No focal neurological deficits. Results & Data Results & Data Vital Signs (Past 12 Hours) Vital Signs Temp Pulse Resp BP Pulse Ox O2 Del Method 03/31/24 15:05 97.7 F 88 16 110/63 92 Room Air 03/31/24 07:10 98.1 F 75 16 113/68 92 Room Air Laboratory Results Reviewed CBC with differential Reviewed CMP/chemistries Reviewed stool studies PG Care Time/CCT Total # of Minutes Spent Total Time Spent with Patient: Total time spent is greater than 50% in coordination of care (as documented) at patient's floor/unit and/or counseling patient: Coding Level of Care Code 82181 SUB INP/OBS CARE 3/50MIN Diagnoses Diverticulitis K57.92 Abdominal pain R10.9 Mass of anus K62.89 Pancytopenia D61.818 History of liver transplant Z94.4 Diabetes mellitus type 2 with complications E11.8
[2024-04-01 07:12] LABS: Basophils # (auto) 0.02 K/uL (0.00-0.20); Basophils % (auto) 0.4 %; Eosinophils # (auto) 0.28 K/uL (0.00-0.50); Eosinophils % (auto) 6.1 %; Hematocrit (blood only) 29.5 % (37.0-47.0); Immature Granulocytes # (auto) 0.13 K/uL (0.01-0.20); Immature Granulocytes % (auto) 2.8 %; Lymphocytes # (auto) 0.29 K/uL (1.20-3.40); Lymphocytes % (auto) 6.3 %; Mean Corpuscular Hemoglobin 30.3 pg (25.0-34.0); Mean Corpuscular Hgb Conc 33.9 g/dL (32.0-36.0); Mean Corpuscular Volume 89.4 fL (80.0-100.0); Mean Platelet Volume 8.5 fL (9.4-12.4); Monocytes # (auto) 0.52 K/uL (0.11-0.59); Monocytes % (auto) 11.4 %; Neutrophils # (auto) 3.34 K/uL (1.40-6.50); Platelet Count 125 K/uL (130-400); RDW Coefficient of Variation 15.5 % (11.5-14.5); RDW Standard Deviation 50.1 fL (36.4-46.3); White Blood Count 4.58 K/ul (4.8-10.8)
--- NOTE | 2024-04-01 16:57 | Hospitalist Progress Note ---
Date of Service April 01, 2024 Assessment & Plan (1) Diverticulitis: (2) Abdominal pain: (3) Mass of anus: (4) Pancytopenia: (5) History of liver transplant: (6) Diabetes mellitus type 2 with complications: Plan 68-year-old female PMHx liver transplant T2DM, hypothyroidism, depression, GERD, cancer and chronic anemia presenting to ED for generalized abdominal pain ongoing since 03/09/2024 but worsening within the past 24 hours. States that she has been in the hospital several times for the same complaint. On initial ED workup, found to have no leukocytosis and lipase was 15. CTAP did reveal colonic mucosal thickening consistent with colitis and mild diverticulitis in the sigmoid colon without perforation or abscess. Pt was to be sent home but after her discussion with ED doc, stated that her pain was too severe to manage at home so admission was recommended. Pain pattern seems exaggerated compared to clinical findings. #Diverticulitis Ongoing severe abdominal pain since 03/09/2024, worsened day prior to admission with associated N/V. Denying gross blood in stool, but has been having mix between diarrhea and constipation. No episodes of vomiting since early in AM day of arrival. - H&H stable on admission but pt does have a history of chronic anemia at baseline, see below - CT A/P revealed colonic mucosal thickening consistent with colitis, mild diverticulitis in the sigmoid colon, no perforation or abscess, splenomegaly > She does have known diverticular stricture - Pt has had minimal success maintaining oral intake; advanced to full liquid diet. Well tolerating so far, continue to advance as tolerated - Zofran as needed for nausea, scheduled MiraLAX and as needed milk of magnesia, Dulcolax - Continue Zosyn 4.5 g IV every 8 hours - GI consulted due to ongoing severe pain, appreciate recommendations - Pain regimen: gabapentin 100 mg TID, morphine 2-4 mg IV Q2H PRN pain, Ativan 0.5 mg Q6H PRN anxiety, fentanyl patch 25 mcg Q3D -- will increase to 50 mcg for next patch - Patient was being considered for sigmoid resection due to sigmoid stricture by Dr. Bowie at [facility], but unfortunately this was deferred until completion of her rectal cancer treatment (which did occur and February 2024). GI spoke with Dr. Peacock, GI PA-C informed me via secure messaging that Dr. Peacock recommending transfer to [facility] if she is requiring ongoing inpatient treatment as Dr. Bowie is transaction manager there this weekend > Patient has been accepted at [facility]. Transfer paperwork completed. Patient informed. - Nutrition consult placed #Malignant neoplasm of anal canal Recently completed radiation therapy 02/2024. Follows with Dr. Bowie and Gordy Freeman for such. - Continue conservative measures prn for perianal skin reactions as suggested by rad/onc note 02/28/2024 -- topical steroid cream prn (pt will bring this in) - Continue bowel regimen outlined above - Continue lidocaine jelly Q4H PRN #Chronic anemia- H&H stable, follow CBC throughout course - Leukopenia appears chronic, likely further exacerbated by chronic suppressive therapy from her liver transplant - Was developing pancytopenia with borderline neutropenia with absolute n eutrophil count of 1.15, discussed via phone call with Dr. Shi (patient's oncologist), who recommended Neupogen 480 mg -- cell lines augmented appropriately - B12/Folate WNL, cyclosporine level sent out - Continue to monitor #Liver transplant recipient September 2022 at [facility], 2/2 REBOLLAR - LFTs stable at time of admission; will follow throughout stay - Continue outpatient medications - Cyclosporine 25mg in am, 50mg in pm #T2DM At home regimen, semaglutide SQ (Sundays) - hold - A1c 5.3% - Novolog scale as noted --Goal BSG Range: Low 110 mg/dL, High 140 mg/dL --Correction Factor: 40 mg/dL/unit ----NO CR coverage --BSGs ACHS if eating, q6h if npo #LISA Minimally elevated Cr at time of admission, likely 2/2 poor oral intake given ongoing and worsening abdominal pain. - Now resolved. Urine culture negative. Continue to encourage PO hydration #HTN- amlodipine, losartan #HLD- atorvastatin #Hypothyroidism- levothyroxine #GERD- pantoprazole #Mood- Sertraline Dispo: Accepted for transfer at [facility]. Transfer paperwork completed. Patient informed. Unclear when transfer will actually occur VTE prophylaxis: SCDs; Encourage ambulation as able to also assist in bowel habits CODE STATUS: DNR/DNI Admission and Anticipated Discharge Date Admission Date: March 27, 2024 Supervising Physician Co-Signing Physician Notes Attending Attestation - Chart reviewed, care plan d/w PRICILA Garcia. I agree w/ the mcnamara components of her documentation. Patient accepted in transfer to [facility] in [place]. This is where her colorectal surgeon is located. Awaiting transfer. Appreciate GI consult/recs. Rogelio Taylor MD Subjective Patient seen and evaluated at bedside. She continues to have watery diarrhea, she denies any blood with this, reporting brown liquid. She also continues to have severe abdominal pain/cramping. Denies nausea or vomiting. Still no update regarding her transfer to [facility]. Physical Exam Physical Exam: General: No acute distress, nondiaphoretic, well-developed, well-nourished. Anxious. Cardiac: Regular rate and rhythm without murmurs gallops or rubs. Pulm: Clear to auscultation bilaterally without wheezes, rales or rhonchi. No respiratory distress. 92% on room air. Abdominal: Soft, nondistended. Tender to palpation throughout lower abdomen. No rebound/guarding. Bowel sounds present. Neuro: A&O x3. No focal neurological deficits. Results & Data Results & Data Vital Signs (Past 12 Hours) Vital Signs Temp Pulse Resp BP Pulse Ox O2 Del Method 04/01/24 15:49 98.1 F 77 16 103/66 92 Room Air 04/01/24 07:15 Room Air 04/01/24 07:15 98.1 F 73 12 115/68 96 Room Air Laboratory Results Reviewed CBC with differential PG Care Time/CCT Total # of Minutes Spent Total Time Spent with Patient: Total time spent is greater than 50% in coordination of care (as documented) at patient's floor/unit and/or counseling patient: Coding Level of Care Code 75268 SUB INP/OBS CARE 2/35MIN Diagnoses Diverticulitis K57.92 Abdominal pain R10.9 Mass of anus K62.89 Pancytopenia D61.818 History of liver transplant Z94.4 Diabetes mellitus type 2 with complications E11.8
[2024-04-02 07:53] LABS: Hematocrit (blood only) 30.5 % (37.0-47.0); Hemoglobin 10.3 g/dl (12.0-16.0); Mean Corpuscular Hemoglobin 30.6 pg (25.0-34.0); Mean Corpuscular Hgb Conc 33.8 g/dL (32.0-36.0); Mean Corpuscular Volume 90.5 fL (80.0-100.0); Mean Platelet Volume 8.6 fL (9.4-12.4); Platelet Count 141 K/uL (130-400); RDW Coefficient of Variation 15.5 % (11.5-14.5); Red Blood Count 3.37 M/uL (4.20-5.40); White Blood Count 3.18 K/ul (4.8-10.8)
[2024-04-02 08:11] LABS: BUN Creatinine Ratio 4.7 (10-20); Calcium 9.5 mg/dl (8.6-10.3); Creatinine Clr Calc Pharmacy 45.6 ml/min; Magnesium 1.6 mg/dl (1.7-2.4); Potassium 3.4 mmol/L (3.5-5.1)
--- NOTE | 2024-04-02 08:25 | Hospitalist Progress Note ---
Date of Service April 02, 2024 Assessment & Plan (1) Diverticulitis: (2) Abdominal pain: (3) Mass of anus: (4) Pancytopenia: (5) History of liver transplant: (6) Diabetes mellitus type 2 with complications: Plan 68-year-old female PMHx liver transplant T2DM, hypothyroidism, depression, GERD, cancer and chronic anemia presenting to ED for generalized abdominal pain ongoing since 03/09/2024 but worsening within the past 24 hours. States that she has been in the hospital several times for the same complaint. On initial ED workup, found to have no leukocytosis and lipase was 15. CTAP did reveal colonic mucosal thickening consistent with colitis and mild diverticulitis in the sigmoid colon without perforation or abscess. Pt was to be sent home but after her discussion with ED doc, stated that her pain was too severe to manage at home so admission was recommended. Pain pattern seems exaggerated compared to clinical findings. #Diverticulitis Ongoing severe abdominal pain since 03/09/2024, worsened day prior to admission with associated N/V. Denying gross blood in stool, but has been having mix between diarrhea and constipation. No episodes of vomiting since early in AM day of arrival. - CT A/P revealed colonic mucosal thickening consistent with colitis, mild diverticulitis in the sigmoid colon, no perforation or abscess, splenomegaly > She does have known diverticular stricture - Continue Zosyn 4.5 g IV every 8 hours through 04/07/24 - Zofran as needed for nausea, scheduled MiraLAX and as needed milk of magnesia, Dulcolax - GI consulted due to ongoing severe pain, appreciate recommendations - Pain regimen: gabapentin 100 mg TID, morphine 2-4 mg IV Q2H PRN pain, Ativan 0.5 mg Q6H PRN anxiety, fentanyl patch increased dose to 50 mcg Q3D - Nutrition consult placed given ongoing poor PO intake. Will defer initiation of PPN at this time due to its increased risk of infections/sepsis and patient is already immunosuppressed - Patient has been accepted at [facility]. Transfer paperwork completed. Patient informed. #Malignant neoplasm of anal canal Recently completed radiation therapy 02/2024. Follows with Dr. Bowie at [facility] (colorectal) and Dr. Shi at [facility] (oncology) for such - Continue conservative measures prn for perianal skin reactions as suggested by rad/onc note 02/28/2024 -- topical steroid cream prn (pt will bring this in) - Continue bowel regimen outlined above - Continue lidocaine jelly Q4H PRN #Chronic anemia- H&H stable, follow CBC throughout course - Leukopenia appears chronic, likely further exacerbated by chronic suppressive therapy from her liver transplant - Was developing pancytopenia with borderline neutropenia with absolute neutrophil count of 1.15, discussed via phone call with Dr. Shi (patient's on cologist), who recommended Neupogen 480 mg -- cell lines augmented appropriately - B12/Folate WNL, cyclosporine level sent out - Continue to monitor #Liver transplant recipient September 2022 at [facility], 2/2 REBOLLAR - LFTs stable at time of admission; will follow throughout stay - Continue outpatient medications - Cyclosporine 25mg in am, 50mg in pm #T2DM At home regimen, semaglutide SQ (Sundays) - hold - A1c 5.3% - Novolog scale as noted --Goal BSG Range: Low 110 mg/dL, High 140 mg/dL --Correction Factor: 40 mg/dL/unit ----NO CR coverage --BSGs ACHS if eating, q6h if npo #LISA Minimally elevated Cr at time of admission, likely 2/2 poor oral intake given ongoing and worsening abdominal pain. - Now resolved. Urine culture negative. Continue to encourage PO hydration #HTN- amlodipine, losartan #HLD- atorvastatin #Hypothyroidism- levothyroxine #GERD- pantoprazole #Mood- Sertraline Dispo: Accepted for transfer at [facility]. Transfer paperwork completed. Patient informed. Unclear when transfer will actually occur VTE prophylaxis: Lovenox 40 mg SQ QAM; Encourage ambulation as able to also assist in bowel habits CODE STATUS: DNR/DNI Repleted electrolytes Started chemical DVT ppx Admission and Anticipated Discharge Date Admission Date: March 27, 2024 Supervising Physician Co-Signing Physician Notes Attending Attestation - Chart reviewed, care plan d/w PRICILA Garcia. I agree w/ the mcnamara components of her documentation. Patient accepted in transfer to [facility] in [place]. This is where her colorectal surgeon is located. Awaiting transfer. Appreciate GI consult/recs. No changes in care plan at this time. Rogelio Taylor MD Subjective Patient seen and evaluated at bedside. She reports that everything is the same, pain meds help but severe pain continues. Unfortunately, no update regarding her transfer to [place] yet. Physical Exam Physical Exam: General: No acute distress, nondiaphoretic, well-developed, well-nourished. Anxious. Cardiac: Regular rate and rhythm without murmurs gallops or rubs. Pulm: Clear to auscultation bilaterally without wheezes, rales or rhonchi. No respiratory distress. 92% on room air. Abdominal: Soft, nondistended. Tender to palpation throughout lower abdomen. No rebound/guarding. Bowel sounds present. Neuro: A&O x3. No focal neurological deficits. Results & Data Results & Data Vital Signs (Past 12 Hours) Vital Signs Temp Pulse Resp BP Pulse Ox O2 Del Method 04/02/24 07:30 97.9 F 72 16 110/71 93 Room Air Laboratory Results Reviewed CBC Reviewed BMP/mag PG Care Time/CCT Total # of Minutes Spent Total Time Spent with Patient: Total time spent is greater than 50% in coordination of care (as documented) at patient's floor/unit and/or counseling patient: Coding Level of Care Code 76159 SUB INP/OBS CARE 3/50MIN Diagnoses Diverticulitis K57.92 Abdominal pain R10.9 Mass of anus K62.89 Pancytopenia D61.818 History of liver transplant Z94.4 Diabetes mellitus type 2 with complications E11.8
[2024-04-02] MEDS: fentaNYL 50 MCG/HR TDSY TD SCH (09:55)
[2024-04-02] MEDS: POTASSIUM CHLORIDE CRTAB 20 MEQ TABCR PO STA (09:55)
[2024-04-02] MEDS: MAGNESIUM OXIDE 400 MG TAB PO ONE (09:55)
[2024-04-02] MEDS: ENOXAPARIN INJ 40 MG/0.4 ML SYR SQ SCH (11:24)
[2024-04-02] MEDS: CHECK fentaNYL PATCH PLACEMENT SCH (16:00)
[2024-04-03 08:28] LABS: Hematocrit (blood only) 29.5 % (37.0-47.0); Hemoglobin 9.8 g/dl (12.0-16.0); Mean Corpuscular Hemoglobin 29.9 pg (25.0-34.0); Mean Corpuscular Hgb Conc 33.2 g/dL (32.0-36.0); Mean Corpuscular Volume 89.9 fL (80.0-100.0); Mean Platelet Volume 8.4 fL (9.4-12.4); Platelet Count 116 K/uL (130-400); RDW Coefficient of Variation 15.5 % (11.5-14.5); RDW Standard Deviation 50.6 fL (36.4-46.3); Red Blood Count 3.28 M/uL (4.20-5.40); White Blood Count 2.23 K/ul (4.8-10.8)
[2024-04-03 08:46] LABS: BUN Creatinine Ratio 4.4 (10-20); Calcium 9.7 mg/dl (8.6-10.3); Creatinine Clr Calc Pharmacy 42.8 ml/min; Magnesium 1.6 mg/dl (1.7-2.4); Potassium 3.6 mmol/L (3.5-5.1)
[2024-04-03] MEDS ORDERED: valACYclovir HCL 500 MG TABLET PO SCH (14:00)
--- NOTE | 2024-04-03 18:04 | Hospitalist Progress Note ---
Date of Service April 03, 2024 Assessment & Plan (1) Diverticulitis: (2) Abdominal pain: (3) Mass of anus: (4) Pancytopenia: (5) History of liver transplant: (6) Diabetes mellitus type 2 with complications: Plan 68-year-old female PMHx liver transplant T2DM, hypothyroidism, depression, GERD, cancer and chronic anemia presenting to ED for generalized abdominal pain ongoing since 03/09/2024 but worsening within the past 24 hours. States that she has been in the hospital several times for the same complaint. On initial ED workup, found to have no leukocytosis and lipase was 15. CTAP did reveal colonic mucosal thickening consistent with colitis and mild diverticulitis in the sigmoid colon without perforation or abscess. Pt was to be sent home but after her discussion with ED doc, stated that her pain was too severe to manage at home so admission was recommended. Pain pattern seems exaggerated compared to clinical findings. #Diverticulitis Ongoing severe abdominal pain since 03/09/2024, worsened day prior to admission with associated N/V. Denying gross blood in stool, but has been having mix between diarrhea and constipation. No episodes of vomiting since early in AM day of arrival. - CT A/P revealed colonic mucosal thickening consistent with colitis, mild diverticulitis in the sigmoid colon, no perforation or abscess, splenomegaly > She does have known diverticular stricture - Continue Zosyn 4.5 g IV every 8 hours through 04/07/24 - Zofran as needed for nausea, MiraLAX (now on hold due to diarrhea) and as needed milk of magnesia, Dulcolax - GI consulted due to ongoing severe pain, appreciate recommendations - Pain regimen: gabapentin 100 mg TID, morphine 2-4 mg IV Q2H PRN pain, Ativan 0.5 mg Q6H PRN anxiety, fentanyl patch increased dose to 50 mcg Q3D - Nutrition consult placed given ongoing poor PO intake. Will defer initiation of PPN at this time due to its increased risk of infections/sepsis and patient is already immunosuppressed - Patient has been accepted at [facility]. Transfer paperwork completed. Patient informed. #Malignant neoplasm of anal canal Recently completed radiation therapy 02/2024. Follows with Dr. Bowie at [facility] (colorectal) and Dr. Shi at [facility] (oncology) for such - Continue conservative measures prn for perianal skin reactions as suggested by rad/onc note 02/28/2024 -- topical steroid cream prn (pt will bring this in) - Continue bowel regimen outlined above - Continue lidocaine jelly Q4H PRN #Chronic anemia- H&H stable, follow CBC throughout course - Leukopenia appears chronic, likely further exacerbated by chronic suppressive therapy from her liver transplant - Was developing pancytopenia with borderline neutropenia with absolute neutrophil count of 1.15, discussed via phone call with Dr. Shi (patient's oncologist), who recommended Neupogen 480 mg -- cell lines augmented appropriately - B12/Folate WNL, cyclosporine level sent out - Continue to monitor #Liver transplant recipient September 2022 at [facility], 2/ REBOLLAR - LFTs stable at time of admission; will follow throughout stay - Continue outpatient medications - Cyclosporine 25mg in am, 50mg in pm #T2DM At home regimen, semaglutide SQ (Sundays) - hold - A1c 5.3% - Novolog scale as noted --Goal BSG Range: Low 110 mg/dL, High 140 mg/dL --Correction Factor: 40 mg/dL/unit ----NO CR coverage --BSGs ACHS if eating, q6h if npo #LISA Minimally elevated Cr at time of admission, likely 2/2 poor oral intake given ongoing and worsening abdominal pain. - Now resolved. Urine culture negative. Continue to encourage PO hydration #HTN- amlodipine, losartan #HLD- atorvastatin #Hypothyroidism- levothyroxine #GERD- pantoprazole #Mood- Sertraline Dispo: Accepted for transfer at [facility]. Transfer paperwork completed. Patient informed. Unclear when transfer will actually occur VTE prophylaxis: Lovenox 40 mg SQ QAM; Encourage ambulation as able to also assist in bowel habits CODE STATUS: DNR/DNI Admission and Anticipated Discharge Date Admission Date: March 27, 2024 Supervising Physician Co-Signing Physician Notes Attending Attestation - Chart reviewed, care plan d/w PRICILA Garcia. I agree w/ the mcnamara components of her documentation. Cont IV zosyn for diverticulitis. Cont pain meds/supportive care. Awaiting transfer to [facility]. Rogelio Taylor MD Subjective Patient seen and evaluated at bedside. She reports that she had a "terrible night." She had multiple episodes of diarrhea with nausea and abdominal cramping overnight. She reports her nausea has resolved at this time and her abdominal pain is tolerable currently. Unfortunately, still no update regarding transfer to [facility]. Physical Exam Physical Exam: General: No acute distress, nondiaphoretic, well-developed, well-nourished. Anxious. Cardiac: Regular rate and rhythm without murmurs gallops or rubs. Pulm: Clear to auscultation bilaterally without wheezes, rales or rhonchi. No respiratory distress. 94% on room air. Abdominal: Soft, nondistended. Tender to palpation throughout lower abdomen. No rebound/guarding. Bowel sounds present. Neuro: A&O x3. No focal neurological deficits. Results & Data Results & Data Vital Signs (Past 12 Hours) Vital Signs Temp Pulse Resp BP Pulse Ox O2 Del Method 04/03/24 15:05 98.1 F 73 16 127/71 94 Room Air 04/03/24 07:07 97.9 F 66 16 119/68 92 Room Air Laboratory Results Reviewed CBC Reviewed BMP PG Care Time/CCT Total # of Minutes Spent Total Time Spent with Patient: Total time spent is greater than 50% in coordination of care (as documented) at patient's floor/unit and/or counseling patient: Coding Level of Care Code 03293 SUB INP/OBS CARE 2/35MIN Diagnoses Diverticulitis K57.92 Abdominal pain R10.9 Mass of anus K62.89 Pancytopenia D61.818 History of liver transplant Z94.4 Diabetes mellitus type 2 with complications E11.8
[2024-04-03] MEDS: valACYclovir HCL 500 MG TABLET PO SCH (21:03)
[2024-04-04 07:01] VITALS: RESP 16
[2024-04-04 08:05] LABS: Hematocrit (blood only) 29.8 % (37.0-47.0); Mean Corpuscular Hemoglobin 29.8 pg (25.0-34.0); Mean Corpuscular Hgb Conc 33.6 g/dL (32.0-36.0); Mean Corpuscular Volume 88.7 fL (80.0-100.0); Mean Platelet Volume 8.6 fL (9.4-12.4); Platelet Count 132 K/uL (130-400); RDW Coefficient of Variation 15.3 % (11.5-14.5); RDW Standard Deviation 48.7 fL (36.4-46.3); Red Blood Count 3.36 M/uL (4.20-5.40); White Blood Count 2.33 K/ul (4.8-10.8)
[2024-04-04 08:20] LABS: Calcium 9.4 mg/dl (8.6-10.3); Creatinine Clr Calc Pharmacy 47.8 ml/min; Magnesium 1.6 mg/dl (1.7-2.4); Potassium 3.5 mmol/L (3.5-5.1)
--- NOTE | 2024-04-04 09:12 | Hospitalist Progress Note ---
Date of Service April 04, 2024 Assessment & Plan (1) Diverticulitis: (2) Abdominal pain: (3) Mass of anus: (4) Pancytopenia: (5) History of liver transplant: (6) Diabetes mellitus type 2 with complications: Plan 68-year-old female PMHx liver transplant T2DM, hypothyroidism, depression, GERD, cancer and chronic anemia presenting to ED for generalized abdominal pain ongoing since 03/09/2024 but worsening within the past 24 hours prior to admission with reports in hospital several times for same complaint On initial ED workup, no leukocytosis, WBC 5k, lipase 15 CTAP noting colonic mucosal thickening c/w colitis and mild diverticulitis in sigmoid colon. NO abscess or perforation noted. Admission for IV abx/pain control requiring admission and recs from her oncologist for transfer to [facility] when bed avaiable #Diverticulitis Severe abdominal pain since March 09 with nausea/vomiting (No blood) CTAP as above w/ concerns for mild diverticulitis (known diverticular stricture she reports Dr Bowie was unable to successfully perform colonoscopy for this past fall) GI consulted Zosyn IV continued (EOT 04/07) Antiemetics Pain control: * Fentanyl patch increased to 50mcg q3d (monitor for further increase if needed). * Morphine 2-4mg IV as needed for breakthrough * Ativan 0.5mg q6h prn anxiety * Dc gabapentin as reports NOT having taken this Nutrition consulted, deferring PPN at time due to liver transplant/sepsis and patient already immunosuppressed. Mag 1.6 on repeat--> has been low/no replacement noted. Will order 2gm IV magnesium. Monitor level in am/consider slow mag. Also ordered 20meq Kcl to keep ~4 Repeat cdiff testing given loose on abx (prior biofire NEGATIVE on admission as well as cdiff) Patient has been accepted at [facility]. Transfer paperwork completed. Patient informed. --Discussed with transfer center and have been in contact with Graciela through Dr Peacock's office ([phone]) and have contacted [facility] ([phone]) and they have accepted patient but still no bed. Hopeful for discharges and will let us know when bed available for transfer. Adding Remeron 7.5mg HS to start this evening for appetite stimulation/anxiety -- monitor/increase as needed/tolerated Consideration for low fiber diet, has been on FULL LIQUIDs Monitor labs/exam on repeat #Malignant neoplasm of anal canal Recently completed radiation therapy 02/[address]24. [address] Bowie at [facility] (colorectal) and Dr. Shi at [facility] (oncology) for such Continue conservative measures prn for perianal skin reactions as suggested by rad/onc note 02/28/2024 -- topical steroid cream prn (pt will bring this in) Bowel regimen continued with miralax HOWEVER has given continued BMs, have placed further on HOLD and repeating cdiff testing Continue lidocaine jelly prn, valtrex resumed #Chronic anemia CBC w/ hgb 9-10 range while inpatient which appears stable for patient Was getting pancytopenic with borderline neutropenia with neutrophil 1.15 and was discussed with Dr Shi (patient's oncologist) who recommended Neupogen 480mg x 1 and was provided and cell lines improved. Likely further exacerbated by chronic suppressive therapy from liver transplant, remains on tacrolimus (level sent) B12 only 299, will plan for PO supplementation given borderline level. Folate wnl at 16 Will check iron studies w/ AM labs as well as CBC w/ diff to ensure neutophil count staying stable given leukopenia on labs however appears stable at present #Liver transplant recipient September 2022 at [facility], 2/2 REBOLLAR LFTs stable at time of admission; will follow throughout stay Continue outpatient medications - Cyclosporine 25mg in am, 50mg in pm Avoid hepatotoxins LFTs w/ AM labs #T2DM At home regimen, semaglutide SQ (Sundays) - hold (likely would have patient DISCONTINUE given high risk for obstruction w/ her known diverticular stricture) A1c 5.3% BSG AC/HS, sliding scale insulin while inpatient BSGS have been HIGHEST 115 in past 3 days and has NOT required any insulin coverage --> pending repeat values, will STOP further BSG checks in AM and only utilize IF NEEDED/symptomatic #LISA Minimally elevated Cr at time of admission, likely 2/2 poor oral intake given ongoing and worsening abdominal pain. Now resolved. Urine culture negative. Continue to encourage PO hydration #HTN - BPs WELL controlled. Remains on amlodipine/losartan. Monitor to hold if needed but asymptomatic at this time/will continue for now #Hypothyroidism - levothyroxine continued but will check TSH w/ AM labs given on replacement and variation on prior checks. #GERD - pantoprazole once daily, monitor to increase if needed DVT proph: lovenox SQ while inpatient Dispo: continued inpatient stay, IV magnesium ordered/possible low fiber diet. Continue nutritional supplements. Awaiting bed at [facility] for transfer. Discussed w/ transfer center and still no bed/hopefully having some discharges today/tomorrow and will follow up. Admission and Anticipated Discharge Date Admission Date: March 27, 2024 Supervising Physician Co-Signing Physician Notes The patient was not seen by me. The chart was reviewed. Case discussed with PRICILA Jha. Agree with assessment and plan Subjective Evaluated this morning, resting in bed. Been about an hour since last BM, improvement for her. Concerns about calls from [employer] and transfer, discussed reaching out to transfer center, they are aware and spoke w/ Graciela at [facility]'s office and recs for [facility] and transfer in process. She has pain in her LLQ, better than admission but repeat cdiff testing to be collected. She was to be on remeron as discussed possible increase, however HAD NOT BEEN ORDERED, will order/monitor. Discussed valtrex, likely use for post-herpetic neuralgia/continued. She has NOT been on gabapentin and was to be stopped, has been stopped now (refused up until past 2 doses). No nausea/vomiting at present, denies CP/SOB. Questions/concerns addressed -- will alert when bed available for transfer. Holding off on artificial nutrition for now, but will ensure nutrition on consult. Physical Exam 2 Physical Exam: General: 68 yo female laying in bed, NAD, just medicated for pain about hour or so prior, anxious at times about plan/transfer/coordination and communication between her outpatient specialists HEENT: head atraumatic, normocephalic, mmm, trachea midline Resp: even/unlabored, slightly diminished in the bases but no wheezing/rales, on ROOM AIR CV: RRR, no significant mrg, no pitting edema, pulses present GI: +BS, soft, +tenderness RLQ/suprapubic, no guarding/rebound, slight fullness to sigmoid area no anguiano MSK/Neuro: nonfocal, not confused, moves all extremities Psych: AOx3, cooperative with exam Results & Data Results & Data Vital Signs (Past 12 Hours) Vital Signs Temp Pulse Resp BP Pulse Ox O2 Del Method 04/04/24 06:58 36.7 C 74 16 128/78 93 Room Air Laboratory Results 04/04/24 07:25 04/04/24 07:25 Mag 1.6 PG Care Time/CCT Total # of Minutes Spent Total Time Spent with Patient: Total time spent is greater than 50% in coordination of care (as documented) at patient's floor/unit and/or counseling patient: Coding Level of Care Code 42209 SUB INP/OBS CARE 3/50MIN Diagnoses Diverticulitis K57.92 Abdominal pain R10.9 Mass of anus K62.89 Pancytopenia D61.818 History of liver transplant Z94.4 Diabetes mellitus type 2 with complications E11.8
[2024-04-04] MEDS: MAGNESIUM SULFATE / D5W 1 GM/100 ML BAG IV SCH (09:32)
[2024-04-04] MEDS: POTASSIUM CHLORIDE CRTAB 20 MEQ TABCR PO STA (11:03)
[2024-04-04] MEDS: CYANOCOBALAMIN (B-12) 500 MCG TABLET PO SCH (15:49)
[2024-04-04] MEDS: MIRTAZAPINE TAB 15 MG TAB PO SCH (20:31)
[2024-04-05 07:26] VITALS: BP 128/75; TEMP 97.9; O2SAT 92
--- NOTE | 2024-04-05 08:11 | Hospitalist Progress Note ---
Date of Service April 05, 2024 Assessment & Plan (1) Diverticulitis: (2) Abdominal pain: (3) Mass of anus: (4) Pancytopenia: (5) History of liver transplant: (6) Diabetes mellitus type 2 with complications: Plan 68-year-old female PMHx liver transplant T2DM, hypothyroidism, depression, GERD, cancer and chronic anemia presenting to ED for generalized abdominal pain ongoing since 03/09/2024 but worsening within the past 24 hours prior to admission with reports in hospital several times for same complaint On initial ED workup, no leukocytosis, WBC 5k, lipase 15 CTAP noting colonic mucosal thickening c/w colitis and mild diverticulitis in sigmoid colon. NO abscess or perforation noted. Admission for IV abx/pain control requiring admission and recs from her oncologist for transfer to [facility] when bed avaiable #Diverticulitis Severe abdominal pain since March 09 with nausea/vomiting (No blood) CTAP as above w/ concerns for mild diverticulitis (known diverticular stricture she reports Dr Bowie was unable to successfully perform colonoscopy for this past fall) GI consulted Zosyn IV continued (EOT 04/07) Antiemetics Pain control: * Fentanyl patch increased to 50mcg q3d (monitor for further increase if needed). * Morphine 2-4mg IV as needed for breakthrough * Ativan 0.5mg q6h prn anxiety * Dc gabapentin as reports NOT having taken this Nutrition consulted, deferring PPN at time due to liver transplant/sepsis and patient already immunosuppressed. Mag 1.6 on repeat--> has been low/no replacement noted. Will order 2gm IV magnesium. Monitor level in am/consider slow mag. Also ordered 20meq Kcl to keep ~4 Repeat cdiff testing given loose on abx - negative, biofire stool negative/neg cdiff on admission as well Patient has been accepted at [facility]. Transfer paperwork completed. Patient informed. --Discussed with transfer center and have been in contact with Graciela through Dr Peacock's office ([phone]) and have contacted [facility] ([phone]) and they have accepted patient but still no bed. Hopeful for dis charges and will let us know when bed available for transfer. Adding Remeron 7.5mg HS to start this evening for appetite stimulation/anxiety -- monitor/increase as needed/tolerated Consideration for low fiber diet, has been on FULL LIQUIDs Monitor labs/exam on repeat 04/05 -- low fiber not so great, back to full liquids. WBC neutropenia worse today, differential w/ low neutrophils as well/ #Malignant neoplasm of anal canal Recently completed radiation therapy 02/2024. Follows with Dr. Bowie at [facility] (colorectal) and Dr. Shi at [facility] (oncology) for such Continue conservative measures prn for perianal skin reactions as suggested by rad/onc note 02/28/2024 -- topical steroid cream prn (pt will bring this in) Bowel regimen continued with miralax HOWEVER has given continued BMs, have placed further on HOLD and repeating cdiff testing Continue lidocaine jelly prn, valtrex resumed #Chronic anemia CBC w/ hgb 9-10 range while inpatient which appears stable for patient Was getting pancytopenic with borderline neutropenia with neutrophil 1.15 and was discussed with Dr Shi (patient's oncologist) who recommended Neupogen 480mg x 1 and was provided and cell lines improved. Likely further exacerbated by chronic suppressive therapy from liver transplant, remains on tacrolimus (level sent) B12 only 299, will plan for PO supplementation given borderline level. Folate wnl at 16 Will check iron studies w/ AM labs as well as CBC w/ diff to ensure neutophil count staying stable given leukopenia on labs however appears stable at present #Liver transplant recipient September 2022 at [facility], 2/2 REBOLLAR LFTs stable at time of admission; will follow throughout stay Continue outpatient medications - Cyclosporine 25mg in am, 50mg in pm Avoid hepatotoxins LFTs w/ AM labs #T2DM At home regimen, semaglutide SQ (Sundays) - hold (likely would have patient DISCONTINUE given high risk for obstruction w/ her known diverticular stricture) A1c 5.3% BSG AC/HS, sliding scale insulin while inpatient BSGS have been HIGHEST 115 in past 3 days and has NOT required any insulin coverage --> pending repeat values, will STOP further BSG checks in AM and only utilize IF NEEDED/symptomatic #LISA Minimally elevated Cr at time of admission, likely 2/2 poor oral intake given ongoing and worsening abdominal pain. Now resolved. Urine culture negative. Continue to encourage PO hydration #HTN - BPs WELL controlled. Remains on amlodipine/losartan. Monitor to hold if needed but asymptomatic at this time/will continue for now #Hypothyroidism - levothyroxine continued but will check TSH w/ AM labs given on replacement and variation on prior checks. #GERD - pantoprazole once daily, monitor to increase if needed DVT proph: lovenox SQ while inpatient Dispo: continued inpatient stay, IV magnesium ordered/possible low fiber diet. Continue nutritional supplements. Awaiting bed at [facility] for transfer. Discussed w/ transfer center and still no bed/hopefully having some discharges today/tomorrow and will follow up. Admission and Anticipated Discharge Date Admission Date: March 27, 2024 Subjective Eval this afternoon, resting in bed. Just medicated with morphine for pain to LLQ. Discussed fentanyl patch increase, agreeable. Was just placed this AM so will order 12mcg patch additional/montior response and inc in 3 days pending response. Continued poor intake Discussed I reached out to Dr Shi this AM given ANC but >1k and will defer neupogen but if decreased below will provide. Continued poor PO intake, consideration for D5NS gentle IVF for hydration in meantime while waiting. Iron studies obtained, VENOFER IV to be provided. Back on liquid diet, reports pain not as bad a brought her in. Cdiff negative. Hopeful bed in next 24 hrs for [facility], following for updates from transfer center as becomes available. Questions/concerns addressed at this time. Results & Data Results & Data Vital Signs (Past 12 Hours) Vital Signs Temp Pulse Resp BP Pulse Ox O2 Del Method 04/05/24 07:24 36.6 C 65 16 128/75 92 Room Air 04/04/24 21:11 95 Room Air 04/04/24 21:08 36.8 C 73 16 129/74 PG Care Time/CCT Total # of Minutes Spent Total Time Spent with Patient: Total time spent is greater than 50% in coordination of care (as documented) at patient's floor/unit and/or counseling patient: Coding Diagnoses Diverticulitis K57.92 Abdominal pain R10.9 Mass of anus K62.89 Pancytopenia D61.818 History of liver transplant Z94.4 Diabetes mellitus type 2 with complications E11.8
[2024-04-05 08:12] LABS: Hematocrit (blood only) 31.7 % (37.0-47.0); Hemoglobin 10.8 g/dl (12.0-16.0); Mean Corpuscular Hemoglobin 30.3 pg (25.0-34.0); Mean Corpuscular Hgb Conc 34.1 g/dL (32.0-36.0); Mean Corpuscular Volume 88.8 fL (80.0-100.0); Mean Platelet Volume 8.2 fL (9.4-12.4); Nucleated RBC # (auto) 0.02 K/uL (0.00-0.12); Platelet Count 111 K/uL (130-400); RDW Coefficient of Variation 15.8 % (11.5-14.5); RDW Standard Deviation 49.6 fL (36.4-46.3); Red Blood Count 3.57 M/uL (4.20-5.40); White Blood Count 1.99 K/ul (4.8-10.8)
[2024-04-05 08:28] LABS: Albumin Level 3.6 gm/dl (3.4-5.0); BUN Creatinine Ratio 5.6 (10-20); Bilirubin Direct 0.2 mg/dl (0-0.2); Bilirubin,Total 0.7 mg/dl (0.2-1.0); Calcium 9.8 mg/dl (8.6-10.3); Creatinine Clr Calc Pharmacy 45.1 ml/min; Magnesium 1.9 mg/dl (1.7-2.4); Potassium 4.1 mmol/L (3.5-5.1); Total Protein 5.3 gm/dl (6.0-8.3)
[2024-04-05 08:33] LABS: Basophils # (auto) 0.02 K/uL (0.00-0.20); Eosinophils # (auto) 0.13 K/uL (0.00-0.50); Eosinophils % (auto) 6.5 %; Immature Granulocytes # (auto) 0.16 K/uL (0.01-0.20); Lymphocytes # (auto) 0.26 K/uL (1.20-3.40); Lymphocytes % (auto) 13.1 %; Monocytes # (auto) 0.34 K/uL (0.11-0.59); Monocytes % (auto) 17.1 %; Neutrophils # (auto) 1.08 K/uL (1.40-6.50); Neutrophils % (auto) 54.3 %
[2024-04-05 08:42] LABS: Thyroid Stimulating Hormone 0.152 uIu/ml (0.300-4.500)
[2024-04-05 08:47] LABS: Ferritin 27.9 ng/ml (8-388)
[2024-04-05 09:17] LABS: T4 Free Thyroxine 1.26 ng/dl (0.61-1.60)
[2024-04-05] MEDS: fentaNYL 12 MCG/HR TDSY TD SCH (13:32)
[2024-04-05] MEDS: D5W AND NSS 1,000 ML IV SCH (13:32)
[2024-04-05 14:37] VITALS: PULSE 67
[2024-04-05] MEDS: IRON SUCROSE 300 MG in SODIUM CHLORIDE 0.9% 250 ML IV ONE (15:17)
--- NOTE | 2024-04-05 15:35 | Discharge Summary ---
Discharge Summary Date of Service April 05, 2024 Principal Dx & Hospital Course #1 = Principal Diagnosis (1) Diverticulitis: (2) Abdominal pain: (3) Mass of anus: (4) Pancytopenia: (5) History of liver transplant: (6) Diabetes mellitus type 2 with complications: Plan 68-year-old female PMHx liver transplant T2DM, hypothyroidism, depression, GERD, anal cancer s/p radiation, and chronic anemia presented to ED for generalized abdominal pain since 03/08 worsening in prior 24hrs to admission with associated nausea/diarrhea w/ similar complaints with diverticulitis in the past and KNOWN diverticular stricture she reports Dr Bowie was unable to traverse this past colonoscopy in the fall #Diverticulitis CTAP noting colonic mucosal thickening c/w colitis and mild diverticulitis in sigmoid colon. NO abscess or perforation noted. Case discussed on admission w/ oncologist who recommended tx to [facility] for colorectal evaluation when bed available but was admitted for IV Zosyn/abx and p ain control with increase in fentanyl patch to 50mcg w/ Morphine IV available and GI consultation while inpatient as well as nutrition Had been continued on Zosyn IV, magnesium/potassium replacement as needed and stool biofire/cdiff negative while inpatient and advanced diet to FULL LIQUIDS with ongoing poor PO intake but improvement in pain however attempts at advancement to LOW FIBER diet with increased discomfort and concerns for need for colorectal surgery eval/surgical intervention for symptoms given stricture likely causing ongoing issues. Did further increase fentanyl to 50mcg + 12mcg day of dc (2 separate patches as 50mcg was JUST applied this morning) and remained on remeron (new med) for appetite stimulation but again concerns for stricture/divertiulitis needing intervention and discussed update with transfer center given ongoing concerns and accepted/bed [address] [facility], Room 1153 and our medics to be taking this evening. Case discussed with her primary oncologist while inpatient and day of discharge as was provided dose of Neupogen for neutropenia but >1k day of dc and rec to hold off. Notable did also check iron studies w/ her chronic deficiency and LOW as below and IV Venofer 300mg IV provided prior to dc and can repeat dose in f/u at [facility]. Remained on liquid diet/Zosyn (day 8) and can consider repeat CTAP as well in follow up but pain NOT worse/no fever and WBC as noted above #Malignant neoplasm of anal canal Recently completed radiation therapy 02/2024, following with Dr Peacock and Dr Bowie recently, Dr Shi from oncology Tx diverticulitis as above and transfer for definitive treatment/surgery No obstruction and continued to move her bowels, cdiff/biofire testing negative continued lidocaine jelly, topical steroid cream further stool softeners/laxative discontinued as moving bowels and GI losses #Chronic anemia CBC w/ hgb 9-10 range while inpatient which appears stable for patient Was getting pancytopenic with borderline neutropenia with neutrophil 1.15 and was discussed with Dr Shi (patient's oncologist) who recommended Neupogen 480mg x 1 and was provided and cell lines improved however again trended down but ANC>1k as above and further Neupogen deferred at this time B12 was obtained and low normal 299 and 1000mcg PO supplementation started/should be continued. Folate wnl at 16 Iron studies were obtained and iron 44 but trans % sat 13 and ferritin LOW at 27.9. Venofer 300mg IV x 1 provided, deferred PO given poor PO tolerance/divertucular disease w/ stricture as above Rec f/u CBC w/ diff, repeat Neupogen if ANC <1k on repeat but notable could have worsened pancytopenia w/ Zosyn use as well #Liver transplant recipient September 2022 at [facility], 2/2 REBOLLAR LFTs stable at time of admission; will follow throughout stay --> repeat w/ normal TB/AST/ALT, mild elevation in ALP to 114 but improved from priors *Rec checking Vit D given prior lows Continued cyclosporine as prior taking, level RETURNED PRIOR TO DC AND LOW 36 -- will likely need adjustment in f/u, will be at [facility] facility for transfer and rec reaching out to [facility] for discussion in f/u Avoid hepatotoxins #T2DM At home regimen, semaglutide SQ (Sundays) - hold (likely would have patient DISCONTINUE given high risk for obstruction w/ her known diverticular stricture-- was discused with patient) A1c 5.3% BSG AC/HS, sliding scale insulin while inpatient BSGS have been HIGHEST 115 in past 3 days and has NOT required any insulin coverage --> pending repeat values, will STOP further BSG checks in AM and only utilize IF NEEDED/symptomatic #LISA Minimally elevated Cr at time of admission, likely 2/2 poor oral intake given ongoing and worsening abdominal pain. Now resolved. Urine culture negative. Continue to encourage PO hydration , IVF added while poor PO intake, defer ongoing in f/u tranfer #HTN - BPs WELL controlled. 128/75 last check -Remains on amlodipine/losartan. Monitor to hold if needed but asymptomatic at this time/will continue for now #Hypothyroidism - levothyroxine continued but checked TSH this morning and was LOW but normal T4. Rec checking T3 w/ AM labs/reduction in Synthroid if needed #GERD - pantoprazole once daily, monitor to increase to BID but no black/tarry stools reported #hypomagnesemia -- prior levels 1.6 but no replacement. Was ordered/repeat wnl but ordered additional 1gm to keep closer to 2 w/ abdominal infection. K improved w/ additional 20meq KCl to 4.1 prior to dc and renal function normal at present time. rec continued monitoring/replacement as indicated DVT proph: lovenox SQ while inpatient Dispo: discharge to [address], [address] 1153. Continue Zosyn IV (for now pending eval), liquid diet. Notes For Next Care Provider Consider repeat CTAP to eval for abscess If ANC <1k on repeat CBC, rec for repeat Neuopegen. Can discuss w/ her oncologist Dr Shi, Follow up on LOW tacrolimus level - 36 resulted prior to dc, may need increase/repeat levels. suspect poor absorption due to dive rticulitis/radiation/etc Rec STOPPING ozempic given bowel issues/risk for obstruction/weight loss/etc as on for DM which has been well controlled/NOT required insulin Consider repeat Venofer IV for BEL (avoid PO) Rec checking T4/adjustment to Synthroid if elevated. Otherwise rec checking TFT 4-6wks Rec checking Vitamin D given ALP to ensure not low given prior low in 20s. Inc supp pending repeat values Medication Changes From Visit Zosyn IV continued Fentanyl patch increased to 50mcg + 12mcg patch (both just placed 04/05) -- further increase as needed for pain control Stopped gabapentin, not taking Remeron 7.5mg HS daily for mood/depression/appetite Rec STOP OZEMPIC Admission HPI Per Admitting Provider 68-year-old female PMHx liver transplant T2DM, hypothyroidism, depression, GERD, cancer and chronic anemia presenting to ED for generalized abdominal pain ongoing since 03/09/2024 but worsening within the past 24 hours. States that she has been in the hospital several times for the same complaint. Reports that she has stage I colorectal cancer, had just finished chemo and radiation in February 2024. Describes abdominal pain as a mix between sharp and cramping pain which is mainly localized to LLQ but does spread across entire lower abdomen. The pain is worse when the patient is attempting to have a bowel movement, and alleviated very temporarily after Po quickly returned. Patient states that her pain is always a 10 out of 10 on the pain scale and has not improved. States that over the past few days, her nausea and vomiting has been increasing and getting worse she has been unable to keep food down. Most recent episode of vomiting was the morning of arrival, brushing her teeth. She also has been having difficulty with urination and dysuria since completion of radiation. Has been having some episodes of diarrhea but has been approximately 3 days since her last normal bowel movement, she does admit to taking senna a day or so ago to try to alleviate this. Is having significant burning with bowel movements. Oncologist has prescribed her oxycodone 10 mg total every 6 hours and fentanyl patches for the pain that she has been experiencing with the patient has had no relief with these interventions. The patient's is present in the room at time of visit. He states that he is very concerned about his 's pain because it has gotten to the point where she is screaming out in pain to the point where "the people outside came hear her." The patient reiterates that she is just in significant pain and it has been exhausting her. She did take her daily medications. Otherwise denying chest pain, shortness of breath, palpitations, numbness/tingling, fever/chills. Please see Dr. Vences's attestation for adjustments/additions to treatment plan. Admission Exam Per Admitting Provider General: No acute distress, appearing in pain Skin: Warm and dry, without rashes or lesions. No cyanosis or clubbing Head: Normocephalic, atraumatic Eyes: PERRL, conjunctivae clear, sclera non-icteric; EOM intact ENT: External ear and ear canal without swelling; nose atraumatic; good dentition, tongue normal appearance, pharynx normal without tonsillar swelling or exudate Neck: Supple, no LAD; no JVD Cardio: RRR, no M/G/R, S1 and S2 normal Resp: No respiratory distress, Lungs CTA in all lobes bilaterally, no wheezes, rales, or rhonchi Abdomen: Soft, symmetric, tenderness to palpation in LLQ, mild tenderness throughout; No rebound tenderness, no guarding; No distention; No masses or hepatosplenomegaly; Bowel sounds normoactive. MSK: No deformities, full ROM throughout; pulses palpable and equal; no edema. Neuro: Awake, alert; CN grossly intact Psych: Tearful; Appropriate mood and affect; good judgement and insight. is present in room at time of visit. Discharge Exam General: 68 yo female laying in bed, NAD, improvement in pain on repeat eval in afternoon regarding transfer HEENT: head atraumatic, normocephalic, mm slightly dry, trachea midline Resp: even/unlabored, slightly diminished in the bases but no wheezing/rales, on ROOM AIR CV: RRR, no significant mrg, no pitting edema, pulses present GI: +BS, soft, +tenderness RLQ/suprapubic, no guarding/rebound, slight fullness to sigmoid region, no overt mass no anguiano MSK/Neuro: nonfocal, not confused, moves all extremities Psych: AOx3, cooperative with exam Discharge Plan Discharge Items Patient Disposition: Transfer Acute Care Hospital Reason For Visit: DIVERTICULITIS Discharge Diagnosis: Diverticulitis, diverticular stricture requiring colorectal surgery eval Condition on Discharge: Good Goals: You have been hospitalized for an acute medical problem. During your stay at [facility], we have made an effort to correct the problem that brought you to the hospital while keeping you as comfortable as possible. Medications were used to bring your condition under control and your discharge instructions will include directions for any medications you should take after leaving the hospital. Please make sure you see your Primary Care Provider as part of your follow up plan. Activity: As commented below Non-emergency contact: Primary Care Provider, Specialist, Nightman and Oncologist Call non-emergency contact if: you have any medication questions, your symptoms worsen, your pain is not controlled, your pain is concerning for you and you have a fever Follow-up/Referrals: Demetrius Shi V., [Outside Practitioners] - Lakisha Arriaga MD [Primary Care Provider] - Diet: Full liquid Addtl Attending Provider Instructions: You have been hospitalized for abdominal pain and diverticulitis. You have been continued on IV antibiotics with Zosyn. Stool testing was negative. Pain control was provided and fentanyl patch up to 50mcg + 12mcg for today and further increase as needed in follow up evaluations. Morphine has also been utilized. Case was discussed with your oncologist as well as transfer center for colorectal surgery eval given concerns for inability to advance diet/obtain ad equate nutrition and is likely related to the diverticular stricture we discussed and you may need surgical intervention to improve your pain/symptoms/disease and recurrence. Arrangements have been made to [facility] for this evening and Dr Shi has been notified. It has been a pleasure being a part of the medical team providing for you while you have been in the hospital. Take care! Pending Studies at Discharge: No Stand-Alone Forms: My [facility] Skilled Items Patient informed of condition?: Yes DNR: Yes Discharge Level of Care: Other Communicable Disease: No Discharge Prognosis: Stable Lines: Peripheral IV Urinary Catheter: No Medications and DC Order Prescriptions: New cyanocobalamin (vitamin B-12) 500 mcg Tablet 1,000 mcg PO QAM Qty: 30 0RF mirtazapine 15 mg Tablet 7.5 mg PO HS Qty: 30 0RF fentanyl 50 mcg/hr Patch 72 Hour 1 patch transdermal Q3D Qty: 0 0RF fentanyl 12 mcg/hr Patch 72 Hour 1 patch transdermal Q3D Qty: 0 0RF Continued valsartan 80 mg tablet 80 mg PO QPM Qty: 30 3RF Rx Instructions: Take one tablet by mouth once a day. levothyroxine 100 mcg tablet 100 mcg PO DAILY Qty: 30 2RF Rx Instructions: Take one table in the AM 30-45 minutes before meal and other medications. sertraline 100 mg tablet 100 mg PO QPM valacyclovir 1 gram tablet 1,000 mg PO TID cyclosporine 25 mg capsule 50 mg PO BID Rx Instructions: 25mg in am, 50mg in pm pantoprazole [Protonix] 40 mg tablet,delayed release (DR/EC) 40 mg PO DAILY Women's 50 Plus Multivitamin 400 mcg-500 mg calcium-20 mcg tablet 1 tab PO QAM amlodipine 10 mg Tablet 10 mg PO QAM atorvastatin 20 mg tablet 20 mg PO HS oxycodone 5 mg tablet 5 mg PO Q6H PRN (Reason: pain) Qty: 14 0RF Held Ozempic 0.25 mg or 0.5 mg (2 mg/3 mL) pen injector 0.5 mg subcut Q7D Qty: 9 0RF Hold Instructions: Provider's Order- until discussed with primary care, would NOT resume Rx Instructions: Wednesday No Action (DME) pen needle, diabetic [BD Ultra-Fine Lani Pen Needle] 32 gauge x 5/32" needle See Rx Instructions .Route Qty: 100 3RF Rx Instructions: Use once per day with insulin injection (DME) FreeStyle Lisy 3 Plus Sensor Device See Rx Instructions .Route Qty: 6 3RF Rx Instructions: Change sensor every 15 days Discharge Orders: Discharge Order (Routine); Ordered 04/05/24 Ordered By: Vivian Brooke Admission Data Admit Date/Time: 03/27/24 23:01 Attending Provider: Elijah Cochran Admit Provider: Bernardo Vences Primary Care Provider: Lakisha Arriaga Other Providers: Bernardo Vences; Avni Lang Hospital Stay Data Consultations 03/27/24 22:43 ED Decision to Admit Stat 03/29/24 12:34 Consult Gastroenterology Routine Diagnostic Imagining Performed Abdomen/Pelvis CT 03/27/24 18:46 Exam(s): CT ABDOMEN + PELVIS With Contrast IV Amt: 93 ml opti 320 EXAM: CT Abdomen and Pelvis With Intravenous Contrast CLINICAL HISTORY: Reason for exam: diffuse abd pain, colorectal CA. TECHNIQUE: Axial computed tomography images of the abdomen and pelvis with intravenous contrast. CTDI is 18 mGy and DLP is 972 mGy-cm. Automated exposure control was utilized for the study. A dose lowering technique was utilized adhering to the principles of ALARA. CONTRAST: Patient received 93 ml opti 320 of IV contrast COMPARISON: 08/23/2023 FINDINGS: ABDOMEN: Liver: Postsurgical changes in the liver. Gallbladder and bile ducts: Cholecystectomy. Biliary dilatation secondary to cholecystectomy status. Pancreas: Unremarkable. Spleen: Spleen measures 15 cm. Adrenals: Unremarkable. Kidneys and ureters: Unremarkable. No obstructing stones. No hydronephrosis. Stomach and bowel: Colonic mucosal thickening consistent with colitis. There is also mild diverticulitis in the sigmoid colon. No perforation or abscess. PELVIS: Appendix: No findings to suggest acute appendicitis. Bladder: Unremarkable. Reproductive: Unremarkable as visualized. ABDOMEN and PELVIS: Intraperitoneal space: Unremarkable. No free air. No significant fluid collection. Bones/joints: Chronic compression deformity at L4. Soft tissues: Unremarkable. Vasculature: Unremarkable. Lymph nodes: Unremarkable. IMPRESSION: 1. Colonic mucosal thickening consistent with colitis. There is also mild diverticulitis in the sigmoid colon. No perforation or abscess. 2. Splenomegaly. Electronically signed by: Rob Acuña MD 03/27/24 20:51 PM Discharge Instructions Given to Patient (Per Discharging Provider) You have been hospitalized for abdominal pain and diverticulitis. You have been continued on IV antibiotics with Zosyn. Stool testing was negative. Pain control was provided and fentanyl patch up to 50mcg + 12mcg for today and further increase as needed in follow up evaluations. Morphine has also been utilized. Case was discussed with your oncologist as well as transfer center for colorectal surgery eval given concerns for inability to advance diet/obtain adequate nutrition and is likely related to the diverticular stricture we discussed and you may need surgical intervention to improve your pa in/symptoms/disease and recurrence. Arrangements have been made to [facility] for this evening and Dr Shi has been notified. It has been a pleasure being a part of the medical team providing for you while you have been in the hospital. Take care! Supervising Physician Co-Signing Physician Notes The patient was not seen by me. The chart was reviewed. Case discussed with PRICILA Jha. Agree with assessment and plan Total Time Total Time Spent Total Time Spent (In Minutes): 75 Coding Level of Care Code 46579 INP/OBS DISCH >30 MIN Diagnoses Diverticulitis K57.92 Abdominal pain R10.9 Mass of anus K62.89 Pancytopenia D61.818 History of liver transplant Z94.4 Diabetes mellitus type 2 with complications E11.8
[2024-04-05] MEDS: CHECK fentaNYL PATCH PLACEMENT SCH (16:58)
== END 2024-04-05 19:40 | disposition short-term general hospital (02) | DRG 392 ==
LOC: ED 15:20 → 3W 23:01 → SUATTDRO 23:01 → 3W 23:45
DX: E03.9 Hypothyroidism, unspecified; K57.32 Diverticulitis of large intestine without perforation or abscess without bleeding; D84.821 Immunodeficiency due to drugs; D61.818 Other pancytopenia; K56.609 Unspecified intestinal obstruction, unspecified as to partial versus complete obstruction; Z88.7 Allergy status to serum and vaccine; R91.1 Solitary pulmonary nodule; Z88.1 Allergy status to other antibiotic agents; Z87.891 Personal history of nicotine dependence; D64.9 Anemia, unspecified; I10 Essential (primary) hypertension; C21.0 Malignant neoplasm of anus, unspecified; E78.5 Hyperlipidemia, unspecified; Z94.4 Liver transplant status; Z92.3 Personal history of irradiation; N17.9 Acute kidney failure, unspecified; K21.9 Gastro-esophageal reflux disease without esophagitis; E11.40 Type 2 diabetes mellitus with diabetic neuropathy, unspecified; Z79.890 Hormone replacement therapy; E83.42 Hypomagnesemia; E21.3 Hyperparathyroidism, unspecified